=== PATIENT | male | born 1960 | race Caucasian/White ===

== ENCOUNTER → 2020-11-08 | Outpatient (CLI) | payer BC | END | disposition home or self-care (01) | LOC: LABWHC1 14:25 | PROVIDERS: ATTEND Family Medicine | DX: U07.1 COVID-19 (principal) | CPT/HCPCS: U0003; C9803; U0005 ==

== ENCOUNTER 2020-11-14 12:53 | Inpatient (IN) | payer BC ==
[2020-11-14] MEDS ORDERED: ACETAMINOPHEN TAB 500 MG TAB PO STA (13:05)
[2020-11-14] MEDS ORDERED: IBUPROFEN 600 MG TAB PO STA (13:05)
[2020-11-14] MEDS ORDERED: DEXAMETHASONE SOD PHOSPHATE 10 MG/ML 1 ML VIAL IV STA (13:23)
[2020-11-14] MEDS: SODIUM CHLORIDE 0.9% 500 ML 500 ML IV SCH (13:36)
--- NOTE | 2020-11-14 13:37 | ED ---
General Adult HPI - General Chief complaint: Shortness of Breath Stated complaint: Fever/BodyAches Time Seen by Provider: 11/14/20 13:00 Source: patient, RN notes reviewed, old records reviewed Mode of arrival: ambulatory Limitations: no limitations - History of Present Illness Initial comments: This is a 60-year-old male who was diagnosed with COVID on November 10. Patient states his symptoms began on November 06. Patient states since he's been diagn osed he continues to get worse more of a cough or shortness of breath more fatigued diarrhea for the last 3 days and lost taste and smell. Patient states he was unaware of any antibiotics that he could possibly get. Patient denies chest pain patient denies any abdominal pain patient denies any vomiting. Patient states exertion makes his shortness of breath considerably worse. - Related Data Home Medications Medication Instructions Recorded Confirmed Ascorbic Acid [Vitamin C] 1,000 mg PO DAILY 11/14/20 11/14/20 Cholecalciferol [Vitamin D3 (25 25 mcg PO DAILY 11/14/20 11/14/20 Mcg = 1000 Iu)] Fish Oil/Dha/Epa [Fish Oil 1,200 1 cap PO DAILY 11/14/20 11/14/20 mg Fish Oil] Multivitamins, Thera [Multivitamin 1 tab PO DAILY 11/14/20 11/14/20 (formulary)] Allergies Allergy/AdvReac Type Severity Reaction Status Date / Time No Known Allergies Allergy Verified 11/14/20 14:47 Review of Systems ROS Statement: Those systems with pertinent positive or pertinent negative responses have been documented in the HPI. ROS Other: All systems not noted in ROS Statement are negative. Past Medical History Past Medical History: No Reported History History of Any Multi-Drug Resistant Organisms: None Reported Past Surgical History: Joint Replacement Past Psychological History: No Psychological Hx Reported Smoking Status: Never smoker Past Alcohol Use History: Occasional Past Drug Use History: None Reported General Exam - General Exam Comments Initial Comments: GENERAL: Patient is well-developed and well-nourished. Patient is nontoxic and well- hydrated and is in mild distress. ENT: Neck is soft and supple. No significant lymphadenopathy is noted. Oropharynx is clear. Moist mucous membranes. Neck has full range of motion without eliciting any pain. EYES: The sclera were anicteric and conjunctiva were pink and moist. Extraocular movements were intact and pupils were equal round and reactive to light. Eyelids were unremarkable. PULMONARY: Unlabored respirations. Good breath sounds bilaterally. No audible rales rhonchi or wheezing was noted. CARDIOVASCULAR: There is a regular rate and rhythm without any murmurs gallops or rubs. ABDOMEN: Soft and nontender with normal bowel sounds. SKIN: Skin is clear with no lesions or rashes and otherwise unremarkable. NEUROLOGIC: Patient is alert and oriented x3. Cranial nerves II through XII are grossly intact. Motor and sensory are also intact. Normal speech, volume and content. Symmetrical smile. MUSCULOSKELETAL: Normal extremities with adequate strength and full range of motion. No lower extremity swelling or edema. No calf tenderness. LYMPHATICS: No significant lymphadenopathy is noted PSYCHIATRIC: Normal psychiatric evaluation. Limitations: no limitations Course Vital Signs 11/14/20 11/14/20 12:56 14:39 Temperature 102.1 F H 101.6 F H Pulse Rate 105 H 82 Respiratory 18 18 Rate Blood Pressure 120/73 O2 Sat by Pulse 89 L 91 L Oximetry Medical Decision Making - Medical Decision Making EKG shows sinus tachycardia at 106 bpm LA interval is 146 QRS is 76 QT interval 326 QTC is 433. Patient's EKG shows no ST segment elevation or depression. EKG shows Q waves in II, III, and aVF X-ray shows bilateral infiltrates consistent difficulty pneumonia. Start the patient on Decadron. Patient's pulse ox was 88% on room air. - Lab Data Result diagrams: 11/14/20 13:16 11/14/20 13:16 Lab Results 11/14/20 11/14/20 11/14/20 Range/Units 13:16 13:16 13:16 WBC 4.3 (3.8-10.6) k/uL RBC 5.37 (4.30-5.90) m/uL Hgb 16.1 (13.0-17.5) gm/dL Hct 46.6 (39.0-53.0) % MCV 86.6 (80.0-100.0) fL MCH 29.9 (25.0-35.0) pg MCHC 34.5 (31.0-37.0) g/dL RDW 14.0 (11.5-15.5) % Plt Count 184 (150-450) k/uL MPV 7.5 Neutrophils % 70 % Lymphocytes % 22 % Monocytes % 5 % Eosinophils % 0 % Basophils % 0 % Neutrophils # 3.0 (1.3-7.7) k/uL Lymphocytes # 0.9 L (1.0-4.8) k/uL Monocytes # 0.2 (0-1.0) k/uL Eosinophils # 0.0 (0-0.7) k/uL Basophils # 0.0 (0-0.2) k/uL PT 10.6 (9.0-12.0) sec INR 1.0 (<1.2) APTT 24.9 (22.0-30.0) sec D-Dimer 0.66 H (<0.60) mg/L FEU Sodium (137-145) mmol/L Potassium (3.5-5.1) mmol/L Chloride (98-107) mmol/L Carbon Dioxide (22-30) mmol/L Anion Gap mmol/L BUN (9-20) mg/dL Creatinine (0.66-1.25) mg/dL Est GFR (CKD-EPI)AfAm (>60 ml/min/1.73 sqM) Est GFR (CKD-EPI)NonAf (>60 ml/min/1.73 sqM) Glucose (74-99) mg/dL Plasma Lactic Acid Kadeem (0.7-2.0) mmol/L Calcium (8.4-10.2) mg/dL Total Bilirubin (0.2-1.3) mg/dL AST (17-59) U/L ALT (4-49) U/L Alkaline Phosphatase (38-126) U/L Total Protein (6.3-8.2) g/dL Albumin (3.5-5.0) g/dL Coronavirus (PCR) Detected A (Not Detectd) 11/14/20 11/14/20 Range/Units 13:16 13:16 WBC (3.8-10.6) k/uL RBC (4.30-5.90) m/uL Hgb (13.0-17.5) gm/dL Hct (39.0-53.0) % MCV (80.0-100.0) fL MCH (25.0-35.0) pg MCHC (31.0-37.0) g/dL RDW (11.5-15.5) % Plt Count (150-450) k/uL MPV Neutrophils % % Lymphocytes % % Monocytes % % Eosinophils % % Basophils % % Neutrophils # (1.3-7.7) k/uL Lymphocytes # (1.0-4.8) k/uL Monocytes # (0-1.0) k/uL Eosinophils # (0-0.7) k/uL Basophils # (0-0.2) k/uL PT (9.0-12.0) sec INR (<1.2) APTT (22.0-30.0) sec D-Dimer (<0.60) mg/L FEU Sodium 132 L (137-145) mmol/L Potassium 4.9 (3.5-5.1) mmol/L Chloride 97 L (98-107) mmol/L Carbon Dioxide 27 (22-30) mmol/L Anion Gap 8 mmol/L BUN 19 (9-20) mg/dL Creatinine 0.89 (0.66-1.25) mg/dL Est GFR (CKD-EPI)AfAm >90 (>60 ml/min/1.73 sqM) Est GFR (CKD-EPI)NonAf >90 (>60 ml/min/1.73 sqM) Glucose 122 H (74-99) mg/dL Plasma Lactic Acid Kadeem 2.0 (0.7-2.0) mmol/L Calcium 8.9 (8.4-10.2) mg/dL Total Bilirubin 0.5 (0.2-1.3) mg/dL AST 64 H (17-59) U/L ALT 29 (4-49) U/L Alkaline Phosphatase 45 (38-126) U/L Total Protein 6.6 (6.3-8.2) g/dL Albumin 4.0 (3.5-5.0) g/dL Coronavirus (PCR) (Not Detectd) Disposition Clinical Impression: Pneumonia due to COVID-19 virus Disposition: ADMITTED IP TO THIS HOSP Referrals: Jovanny Christina MD [Primary Care Provider] - 1-2 days Time of Disposition: 15:42
[2020-11-14 13:53] LABS: Basophils % (A) 0 %; Eosinophils % (A) 0 %; HCT 46.6 % (39.0-53.0); HGB 16.1 gm/dL (13.0-17.5); Lymphocytes # (A) 0.9 k/uL (1.0-4.8); Lymphocytes % (A) 22 %; MCH 29.9 pg (25.0-35.0); MCHC 34.5 g/dL (31.0-37.0); MCV 86.6 fL (80.0-100.0); Mean Platelet Volume 7.5; Monocytes # (A) 0.2 k/uL (0-1.0); Monocytes % (A) 5 %; Neutrophils % (A) 70 %; Platelet Count 184 k/uL (150-450); RBC 5.37 m/uL (4.30-5.90); WBC 4.3 k/uL (3.8-10.6)
--- NOTE | 2020-11-14 14:09 | XR ---
EXAMINATION TYPE: XR chest 2V DATE OF EXAM: 11/14/2020 COMPARISON: NONE HISTORY: Shortness of breath TECHNIQUE: Frontal and lateral views of the chest are obtained. FINDINGS: Scattered senescent parenchymal changes noted. Hyperinflation compatible with COPD. Scattered patchy infiltrates compatible with underlying pneumonia. Correlate for Covid 19 pneumonia. Heart size is stable. Mediastinal structures are stable and grossly unremarkable. No evidence for hilar prominence. Degenerative changes dorsal spine. IMPRESSION: 1. Scattered patchy infiltrates compatible with underlying pneumonia. Correlate for Covid 19 pneumoni a.
[2020-11-14 14:16] LABS: ALT 29 U/L (4-49); African American GFR (CKD) >90 (>60 ml/min/1.73 sqM); Anion Gap 8 mmol/L; Blood Urea Nitrogen 19 mg/dL (9-20); Calcium 8.9 mg/dL (8.4-10.2); Carbon Dioxide 27 mmol/L (22-30); Chloride 97 mmol/L (98-107); Glucose 122 mg/dL (74-99); Non-African American GFR(CKD) >90 (>60 ml/min/1.73 sqM); Sodium 132 mmol/L (137-145); Total Bilirubin 0.5 mg/dL (0.2-1.3); Total Protein 6.6 g/dL (6.3-8.2)
[2020-11-14 14:26] LABS: AST 64 U/L (17-59); Alkaline Phosphatase 45 U/L (38-126); Potassium 4.9 mmol/L (3.5-5.1)
[2020-11-14 14:30] LABS: Partial Thromboplastin Time 24.9 sec (22.0-30.0); Prothrombin Time 10.6 sec (9.0-12.0)
[2020-11-14] MEDS ORDERED: SODIUM CHLORIDE 0.9% 1,000 ML IV ONE (15:42)
[2020-11-14 16:34] LABS: Appearance,Urine Clear (Clear); Bilirubin,Urine Negative (Negative); Blood,Urine Negative (Negative); Color,Urine Yellow; Glucose,Urine (UA) Negative (Negative); Ketones,Urine Negative (Negative); Leukocyte Esterase,Urine Negative (Negative); Mucus,Urine Many /hpf; Nitrite,Urine Negative (Negative); Protein,Urine 1+ (Negative); RBC,Urine <1 /hpf (0-5); Specific Gravity,Urine 1.025 (1.001-1.035); Squamous Epithelial Cell,Urine <1 /hpf (0-4); Urobilinogen,Urine <2.0 mg/dL (<2.0); WBC,Urine 4 /hpf (0-5)
--- NOTE | 2020-11-14 20:18 | P.CNPUL ---
History of Present Illness Consult date: 11/14/20 Reason for consult: hypoxemia, pneumonia History of present illness: 60-year-old male patient, no previous vaccination for Covid 19, developed sy mptoms of dry cough and progressive worsening shortness of breath this been going on for the past 7 days. He became symptomatic last Thursday. The patient is coming in with worsening shortness of breath. He also lost his sense of taste and smell. He has not taken any other outpatient treatment. His chest x- ray showed by the pulmonary infiltrates consistent with Covid 19 secondary to pneumonia. The patient had no significant GI symptoms. No altered mentation. Currently is on oxygen at 2 L per minute. D-dimer is at 0.66. LFTs are minimally elevated with an AST of 64. Lactic acid level is at 2.0. Electrolytes are normal. LDH and CRP are pending. Covid 19 testing by PCR came back positive. He is currently on Decadron and Lovenox 40 mg subcu on a daily basis. No other major comorbidities. He is able to speak full sentences. No signs of any respiratory distress at this point in time. Review of Systems Constitutional: Reports fatigue, Reports weight gain Eyes: denies as per HPI, denies blurred vision, denies bulging eye, denies decreased vision, denies diplopia, denies discharge, denies dry eye, denies irritation, denies itching, denies pain, denies photophobia, denies loss of peripheral vision, denies loss of vision, denies tunnel vision/blind spots Ears: deny: decreased hearing, ear discharge, earache, tinnitus Ears, nose, mouth and throat: Reports as per HPI Breasts: absent: as per HPI, gynecomastia Cardiovascular: Reports dyspnea on exertion Respiratory: Reports cough, Reports dyspnea Gastrointestinal: Reports as per HPI Genitourinary: Reports as per HPI Musculoskeletal: absent: ankle pain, ankle stiffness, ankle swelling, as per HPI, elbow pain, elbow stiffness, elbow swelling, foot pain, foot stiffness, foot swelling, hand pain, hand stiffness, hand swelling, hip pain, hip stiffness, hip swelling, knee pain, knee stiffness, knee swelling, shoulder pain, shoulder stiffness, shoulder swelling, wrist pain, wrist stiffness, wrist swelling Integumentary: Reports as per HPI Neurological: Reports as per HPI, Reports weakness Psychiatric: Reports as per HPI Endocrine: Reports as per HPI, Reports fatigue Hematologic/Lymphatic: Reports as per HPI Allergic/Immunologic: Reports as per HPI Past Medical History Past Medical History: No Reported History History of Any Multi-Drug Resistant Organisms: None Reported Past Surgical History: Joint Replacement Additional Past Surgical History / Comment(s): right shoulder surgry 10 years ago Past Psychological History: No Psychological Hx Reported Smoking Status: Never smoker Past Alcohol Use History: Occasional Past Drug Use History: None Reported Medications and Allergies Home Medications Medication Instructions Recorded Confirmed Type Ascorbic Acid [Vitamin C] 1,000 mg PO DAILY 11/14/20 11/14/20 History Cholecalciferol [Vitamin D3 (25 25 mcg PO DAILY 11/14/20 11/14/20 History Mcg = 1000 Iu)] Fish Oil/Dha/Epa [Fish Oil 1,200 1 cap PO DAILY 11/14/20 11/14/20 History mg Fish Oil] Multivitamins, Thera [Multivitamin 1 tab PO DAILY 11/14/20 11/14/20 History (formulary)] Allergies Allergy/AdvReac Type Severity Reaction Status Date / Time No Known Allergies Allergy Verified 11/14/20 14:47 Physical Exam Vitals: Vital Signs Temp Pulse Resp BP Pulse Ox 11/14/20 18:15 98.3 F 87 18 109/70 93 L 11/14/20 14:39 101.6 F H 82 18 91 L 11/14/20 13:06 18 11/14/20 12:56 102.1 F H 105 H 18 120/73 89 L Intake and Output 11/14/20 11/14/20 11/14/20 06:59 14:59 22:59 Other: Weight 113.398 kg 113.398 kg The patient appeared well nourished and normally developed. Vital signs as documented. Head exam is unremarkable. No scleral icterus or corneal arcus noted. Neck is without jugular venous distension, thyromegaly, or carotid bruits. Carotid upstrokes are brisk bilaterally. Lungs are diminished and the patient has crackles in the mid and lower lung felix bilaterally Cardiac exam reveals the PMI to be normally sized and situated. Rhythm is regular. First and second heart sounds normal. No murmurs, rubs or gallops. Abdominal exam reveals normal bowel sounds, no masses, no organomegaly and no aortic enlargement. Extremities are nonedematous and both femoral and pedal pulses are normal.Examination of the skin revealed no evidence of significant rashes, suspicious appearing nevi or other concerning lesions.Neurologically, the patient is awake and alert and the patient does not have any focal neurological deficit. Cranial nerves are essentially intact. Results - Laboratory Findings CBC and BMP: 11/14/20 13:16 11/14/20 13:16 PT/INR, D-dimer PT 10.6 sec (9.0-12.0) 11/14/20 13:16 INR 1.0 (<1.2) 11/14/20 13:16 D-Dimer 0.66 mg/L FEU (<0.60) H 11/14/20 13:16 Abnormal lab findings: Abnormal Labs 11/14/20 11/14/20 11/14/20 13:16 13:16 13:16 Lymphocytes # 0.9 L D-Dimer 0.66 H Sodium Chloride Glucose AST Urine Protein Urine Mucus Coronavirus (PCR) Detected A 11/14/20 11/14/20 13:16 16:22 Lymphocytes # D-Dimer Sodium 132 L Chloride 97 L Glucose 122 H AST 64 H Urine Protein 1+ H Urine Mucus Many H Coronavirus (PCR) - Diagnostic Findings Chest x-ray: image reviewed Assessment and Plan Plan: 1 acute Covid 19 related pneumonia. The patient became symptomatic approximately 8 days ago. Presented with worsening shortness of breath and bilateral pneumonia. Patient is not vaccinated. The patient has not received any outpatient treatments for Covid 19 infection. Diagnosis established during this current admission. 2 acute hypoxic respiratory failure currently on 2 L about 2 by nasal cannula 3 obesity with a BMI of 38. Plan Check and symmetrical markings including LDH and CRP Decadron 6 mg by mouth daily Lovenox 40 minutes subcu for DVT prophylaxis IV hydration with normal saline at the rate of 75 mL's an hour Zinc sulfate and vitamin C and vitamin D supplements Monitor oxygenation currently on 2 L per minute nasal cannula We'll continue to follow. Diagnosis explained. He is not my symptomatic at this point in time. We'll continue to follow. He is outside the window for Remdesivir
[2020-11-14] MEDS: ASCORBIC ACID 500 MG TAB PO SCH (21:06)
[2020-11-14] MEDS: ENOXAPARIN 40 MG/0.4 ML SYRINGE SQ SCH (21:06)
[2020-11-15] MEDS: CHOLECALCIFEROL 25 MCG (1000 IU) TABLET PO SCH (07:57)
[2020-11-15] MEDS: ZINC SULFATE 220 MG CAP PO SCH (07:57)
[2020-11-15] MEDS: ASCORBIC ACID 500 MG TAB PO SCH ×2 (07:57→21:15)
[2020-11-15] MEDS: dexAMETHasone 2 MG TAB PO SCH (07:57)
[2020-11-15] MEDS: ENOXAPARIN 40 MG/0.4 ML SYRINGE SQ SCH (07:57)
[2020-11-15 08:00] LABS: C Reactive Protein 5.7 mg/dL (<1.0)
--- NOTE | 2020-11-15 11:09 | P.HPIM ---
History of Present Illness H&P Date: 11/15/20 Chief Complaint: Fever chills, since November 06, covid positive This is a pleasant 60-year-old gentleman patient of Dr. Ridge Christina. He doesn't see a physician often and does not note any medical diseases, except for obesity. He comes seen secondary to fever and chills, cough, starting December 06 first, along with muscle aches, lack of appetite and diarrhea. he was tested for call bid November 08, which required at week of reporting, subsequently was sent to emergency room secondary to worsening symptoms, including dyspnea on exertion, shortness of breath and worsening cough without hemoptysis. Fever, shortness of breath lingers, no treatment given to him prior to this admission. The is vaccinated, but the patient is not. He does not believe in vaccines at that time. He comes in the emergency room, with hypoxemia, with very minimal conversational dyspnea, chest x-ray, shows pulmonary infiltrate consistent with Covid pneumonia, oxygen currently is at 6 L nasal cannula, d-dimer was 0.6, LFTs are minimally elevated, 64 AST, lactic acid 2.0 sodium 132, creatinine of 0.9, glucose of 122, LDH of 888, CRP of 5.7. Urine protein noted, without hematuria or proteinuria. Covid was again retested 11/14, PCR is positive. Consult to Dr. Eduardo and pulmonary,, Review of Systems Constitutional: Reports as per HPI, Reports anorexia, Reports chills, Reports poor appetite Ears, nose, mouth and throat: Reports as per HPI Cardiovascular: Reports as per HPI Respiratory: Reports as per HPI Gastrointestinal: Reports as per HPI Genitourinary: Reports as per HPI Past Medical History Past Medical History: No Reported History History of Any Multi-Drug Resistant Organisms: None Reported Past Surgical History: Joint Replacement Additional Past Surgical History / Comment(s): right shoulder surgry 10 years ago Past Psychological History: No Psychological Hx Reported Smoking Status: Never smoker Past Alcohol Use History: Occasional Past Drug Use History: None Reported Medications and Allergies Home Medications Medication Instructions Recorded Confirmed Type Ascorbic Acid [Vitamin C] 1,000 mg PO DAILY 11/14/20 11/14/20 History Cholecalciferol [Vitamin D3 (25 25 mcg PO DAILY 11/14/20 11/14/20 History Mcg = 1000 Iu)] Fish Oil/Dha/Epa [Fish Oil 1,200 1 cap PO DAILY 11/14/20 11/14/20 History mg Fish Oil] Multivitamins, Thera [Multivitamin 1 tab PO DAILY 11/14/20 11/14/20 History (formulary)] Allergies Allergy/AdvReac Type Severity Reaction Status Date / Time No Known Allergies Allergy Verified 11/14/20 14:47 Physical Exam Vitals: Vital Signs Temp Pulse Pulse Resp BP BP Pulse Ox 11/15/20 08:00 15 11/15/20 05:45 90 L 11/15/20 05:39 98.7 F 69 20 124/73 83 L 11/15/20 03:00 97.4 F L 73 17 102/68 85 L 11/14/20 23:31 97.6 F 80 18 103/58 89 L 11/14/20 18:15 98.3 F 87 18 109/70 93 L 11/14/20 14:39 101.6 F H 82 18 91 L 11/14/20 13:06 18 11/14/20 12:56 102.1 F H 105 H 18 120/73 89 L Intake and Output 11/14/20 11/15/20 11/15/20 22:59 06:59 14:59 Other: # Voids 3 Weight 113.398 kg - Constitutional General appearance: cooperative, no acute distress, obese - EENT Eyes: EOMI, PERRLA, dentition normal, normal appearance ENT: NA/AT, normal oropharynx - Neck Neck: normal ROM - Respiratory Respiratory: bilateral: CTA, negative: diminished, dullness, rales - Cardiovascular Rhythm: regular Heart sounds: normal: S1, S2 Abnormal Heart Sounds: no systolic murmur, no diastolic murmur, no rub, no S3 Gallop, no S4 Gallop, no click, no other - Gastrointestinal General gastrointestinal: normal bowel sounds, soft - Integumentary Integumentary: decreased turgor, normal - Neurologic Neurologic: CNII-XII intact - Musculoskeletal Musculoskeletal: gait normal, strength equal bilaterally - Psychiatric Psychiatric: A&O x's 3 Results CBC & Chem 7: 11/14/20 13:16 11/14/20 13:16 Labs: Abnormal Lab Results - Last 24 Hours (Table) 11/14/20 11/14/20 11/14/20 Range/Units 13:16 13:16 13:16 Lymphocytes # 0.9 L (1.0-4.8) k/uL D-Dimer 0.66 H (<0.60) mg/L FEU Sodium (137-145) mmol/L Chloride (98-107) mmol/L Glucose (74-99) mg/dL AST (17-59) U/L Lactate Dehydrogenase (313-618) U/L C-Reactive Protein (<1.0) mg/dL Urine Protein (Negative) Urine Mucus (None) /hpf Coronavirus (PCR) Detected A (Not Detectd) 11/14/20 11/14/20 11/15/20 Range/Units 13:16 16:22 07:05 Lymphocytes # (1.0-4.8) k/uL D-Dimer (<0.60) mg/L FEU Sodium 132 L (137-145) mmol/L Chloride 97 L (98-107) mmol/L Glucose 122 H (74-99) mg/dL AST 64 H (17-59) U/L Lactate Dehydrogenase 888 H (313-618) U/L C-Reactive Protein 5.7 H (<1.0) mg/dL Urine Protein 1+ H (Negative) Urine Mucus Many H (None) /hpf Coronavirus (PCR) (Not Detectd) Laboratory Results WBC 4.3 k/uL (3.8-10.6) 11/14/20 13:16 RBC 5.37 m/uL (4.30-5.90) 11/14/20 13:16 Hgb 16.1 gm/dL (13.0-17.5) 11/14/20 13:16 Hct 46.6 % (39.0-53.0) 11/14/20 13:16 MCV 86.6 fL (80.0-100.0) 11/14/20 13:16 MCH 29.9 pg (25.0-35.0) 11/14/20 13:16 MCHC 34.5 g/dL (31.0-37.0) 11/14/20 13:16 RDW 14.0 % (11.5-15.5) 11/14/20 13:16 Plt Count 184 k/uL (150-450) 11/14/20 13:16 MPV 7.5 11/14/20 13:16 Neutrophils % 70 % 11/14/20 13:16 Lymphocytes % 22 % 11/14/20 13:16 Monocytes % 5 % 11/14/20 13:16 Eosinophils % 0 % 11/14/20 13:16 Basophils % 0 % 11/14/20 13:16 Neutrophils # 3.0 k/uL (1.3-7.7) 11/14/20 13:16 Lymphocytes # 0.9 k/uL (1.0-4.8) L 11/14/20 13:16 Monocytes # 0.2 k/uL (0-1.0) 11/14/20 13:16 Eosinophils # 0.0 k/uL (0-0.7) 11/14/20 13:16 Basophils # 0.0 k/uL (0-0.2) 11/14/20 13:16 PT 10.6 sec (9.0-12.0) 11/14/20 13:16 INR 1.0 (<1.2) 11/14/20 13:16 APTT 24.9 sec (22.0-30.0) 11/14/20 13:16 D-Dimer 0.52 mg/L FEU (<0.60) 11/15/20 07:05 Sodium 132 mmol/L (137-145) L 11/14/20 13:16 Potassium 4.9 mmol/L (3.5-5.1) 11/14/20 13:16 Chloride 97 mmol/L (98-107) L 11/14/20 13:16 Carbon Dioxide 27 mmol/L (22-30) 11/14/20 13:16 Anion Gap 8 mmol/L 11/14/20 13:16 BUN 19 mg/dL (9-20) 11/14/20 13:16 Creatinine 0.89 mg/dL (0.66-1.25) 11/14/20 13:16 Est GFR (CKD-EPI)AfAm >90 (>60 ml/min/1.73 sqM) 11/14/20 13:16 Est GFR (CKD-EPI)NonAf >90 (>60 ml/min/1.73 sqM) 11/14/20 13:16 Glucose 122 mg/dL (74-99) H 11/14/20 13:16 Plasma Lactic Acid Kadeem 2.0 mmol/L (0.7-2.0) 11/14/20 13:16 Calcium 8.9 mg/dL (8.4-10.2) 11/14/20 13:16 Total Bilirubin 0.5 mg/dL (0.2-1.3) 11/14/20 13:16 AST 64 U/L (17-59) H 11/14/20 13:16 ALT 29 U/L (4-49) 11/14/20 13:16 Alkaline Phosphatase 45 U/L (38-126) 11/14/20 13:16 Lactate Dehydrogenase 888 U/L (313-618) H 11/15/20 07:05 C-Reactive Protein 5.7 mg/dL (<1.0) H 11/15/20 07:05 Total Protein 6.6 g/dL (6.3-8.2) 11/14/20 13:16 Albumin 4.0 g/dL (3.5-5.0) 11/14/20 13:16 Urine Color Yellow 11/14/20 16:22 Urine Appearance Clear (Clear) 11/14/20 16:22 Urine pH 6.0 (5.0-8.0) 11/14/20 16:22 Ur Specific [place] 1.025 (1.001-1.035) 11/14/20 16:22 Urine Protein 1+ (Negative) H 11/14/20 16:22 Urine Glucose (UA) Negative (Negative) 11/14/20 16:22 Urine Ketones Negative (Negative) 11/14/20 16:22 Urine Blood Negative (Negative) 11/14/20 16:22 Urine Nitrite Negative (Negative) 11/14/20 16:22 Urine Bilirubin Negative (Negative) 11/14/20 16:22 Urine Urobilinogen <2.0 mg/dL (<2.0) 11/14/20 16:22 Ur Leukocyte Esterase Negative (Negative) 11/14/20 16:22 Urine RBC <1 /hpf (0-5) 11/14/20 16:22 Urine WBC 4 /hpf (0-5) 11/14/20 16:22 Ur Squamous Epith Cells <1 /hpf (0-4) 11/14/20 16:22 Urine Mucus Many /hpf (None) H 11/14/20 16:22 Coronavirus (PCR) Detected (Not Detectd) A 11/14/20 13:16 Thrombosis Risk Factor Assmnt - DVT/VTE Prophylaxis DVT/VTE Prophylaxis: Pharmacologic Prophylaxis ordered - Choose All That Apply Each Factor Represents 1 point: Obesity (BMI >25), Sepsis (< 1month) Each Risk Factor Represents 2 Points: Age 61-74 years Other congenital or acquired thrombophilia - If yes, enter type in comment: No Thrombosis Risk Factor Assessment Total Risk Factor Score: 4 Thrombosis Risk Factor Assessment Level: Moderate Risk Assessment and Plan Plan: 1, moderate severe coving, with pneumonia, with acute hypoxemic respiratory failure, diagnosis was of 11/08/2020, symptoms started December 06 first. Patient is not vaccinated, and since being seen in consultation by pulmonary, he is on dexamethasone 6 mg daily, Lovenox 40 mg daily, he is on his ninth day of illness from presentation, we have discussed with pulmonary, treatment options, including Remdesivir against actemra on a None vaccinated patient, they will always reevaluate the patient, and decision will be made after Dr. Eduardo will please see the patient today . O2 supplementation, monitor for worsening Covid markers however his d-dimer has come down 2. Morbid obesity BMI 38 DVT prophylaxis Lovenox GI prophylaxis Pepcid BPH without LUTs Proteinuria, unknown cause, Dymetabolic syndrome, monitor for hyperglycemia, check A1c
--- NOTE | 2020-11-15 12:45 | P.PN ---
Subjective Progress Note Date: 11/15/20 On today's evaluation on the 11/15/2020 patient seen in follow-up on medical surgical floor. His O2 saturations are marginal, on 6 L his pulse ox is 90%. Does not seem to be in any acute distress, no increased work of breathing. Occasional cough, nonproductive, patient was outside the window for Remdesivir. He is not vaccinated, S x-ray on admission showed significant patchy infiltrates compatible with his history of COVID-19 infection. Blood pressure has been stable, afebrile. His labs have been reviewed, d-dimer is 0.52, which is 888, CRP is 5.7. Patient is currently on Decadron 6 mg, he is on prophylactic dose Lovenox. Objective - Vital Signs Vital signs: Vital Signs Temp 98.1 F 11/15/20 10:24 Pulse 81 11/15/20 10:24 Resp 18 11/15/20 10:24 BP 102/60 11/15/20 10:24 Pulse Ox 90 L 11/15/20 10:24 Intake & Output 11/14/20 11/15/20 11/15/20 18:59 06:59 18:59 Weight 113.398 kg Other: # Voids 3 - Exam GENERAL EXAM: Alert, very pleasant, 60-year-old white male, on 6 L of oxygen with pulse ox of 90% comfortable in no apparent distress. HEAD: Normocephalic/atraumatic. EYES: Normal reaction of pupils, equal size. Conjunctiva pink, sclera white. NOSE: Clear with pink turbinates. THROAT: No erythema or exudates. NECK: No masses, no JVD, no thyroid enlargement, no adenopathy. CHEST: No chest wall deformity. Symmetrical expansion. LUNGS: Equal air entry with no crackles, wheeze, rhonchi or dullness. CVS: Regular rate and rhythm, normal S1 and S2, no gallops, no murmurs, no rubs ABDOMEN: Soft, nontender. No hepatosplenomegaly, normal bowel sounds, no guarding or rigidity. EXTREMITIES: No clubbing, no edema, no cyanosis, 2+ pulses and upper and lower extremities. MUSCULOSKELETAL: Muscle strength and tone normal. SPINE: No scoliosis or deformity SKIN: No rashes CENTRAL NERVOUS SYSTEM: Alert and oriented -3. No focal deficits, tone is normal in all 4 extremities. PSYCHIATRIC: Alert and oriented -3. Appropriate affect. Intact judgment and insight. - Labs CBC & Chem 7: 11/14/20 13:16 11/14/20 13:16 Labs: Abnormal Lab Results - Last 24 Hours (Table) 11/14/20 11/14/20 11/14/20 Range/Units 13:16 13:16 13:16 Lymphocytes # 0.9 L (1.0-4.8) k/uL D-Dimer 0.66 H (<0.60) mg/L FEU Sodium (137-145) mmol/L Chloride (98-107) mmol/L Glucose (74-99) mg/dL AST (17-59) U/L Lactate Dehydrogenase (313-618) U/L C-Reactive Protein (<1.0) mg/dL Urine Protein (Negative) Urine Mucus (None) /hpf Coronavirus (PCR) Detected A (Not Detectd) 11/14/20 11/14/20 11/15/20 Range/Units 13:16 16:22 07:05 Lymphocytes # (1.0-4.8) k/uL D-Dimer (<0.60) mg/L FEU Sodium 132 L (137-145) mmol/L Chloride 97 L (98-107) mmol/L Glucose 122 H (74-99) mg/dL AST 64 H (17-59) U/L Lactate Dehydrogenase 888 H (313-618) U/L C-Reactive Protein 5.7 H (<1.0) mg/dL Urine Protein 1+ H (Negative) Urine Mucus Many H (None) /hpf Coronavirus (PCR) (Not Detectd) Assessment and Plan Plan: 1 acute Covid 19 related pneumonia. The patient became symptomatic approximately 8 days ago. Presented with worsening shortness of breath and bilateral pneumonia. Patient is not vaccinated. The patient has not received any outpatient treatments for Covid 19 infection. Diagnosis established during this current admission. 2 acute hypoxic respiratory failure currently on 2 L about 2 by nasal cannula 3 obesity with a BMI of 38. Plan: Continue Decadron, and Lovenox Patient's up to 6 L, his pulse ox is marginal, 90% He was outside the window for Remdesivir We'll consider the patient for Bariticinib Continue to follow I performed a history & physical examination of the patient and discussed their management with my nurse practitioner, Jovita Thomas. I reviewed the nurse practitioner's note and agree with the documented findings and plan of care. Lung sounds are positive for diminished breath sounds throughout the lung felix. The findings and the impression was discussed with the patient. I attest to the documentation by the nurse practitioner. Time with Patient: Less than 30
[2020-11-15] MEDS ORDERED: LOPERAMIDE 2 MG CAP PO STA (14:04)
[2020-11-15] MEDS ORDERED: LOPERAMIDE 2 MG CAP PO PRN (14:04)
[2020-11-15] MEDS: BARICITINIB 2 MG TABLET PO SCH (16:19)
--- NOTE | 2020-11-16 07:27 | XR ---
EXAMINATION TYPE: XR chest 1V DATE OF EXAM: 11/16/2020 HISTORY: Shortness of breath. COMPARISON: 11/14/2020 TECHNIQUE: Single view of the chest is submitted. FINDINGS: Demonstrated are scattered senescent parenchymal change. Patchy perihilar and left lower lobe infiltrate persists. The heart is stable. Hilar and mediastinal structures are within normal limits. Degenerative changes are seen of the dorsal spine. IMPRESSION: 1. Patchy perihilar and left lower lobe infiltrate persists.
[2020-11-16] MEDS: ASCORBIC ACID 500 MG TAB PO SCH ×2 (09:11→22:49)
[2020-11-16] MEDS: ZINC SULFATE 220 MG CAP PO SCH (09:12)
[2020-11-16] MEDS: dexAMETHasone 2 MG TAB PO SCH (09:12)
[2020-11-16] MEDS: CHOLECALCIFEROL 25 MCG (1000 IU) TABLET PO SCH (09:12)
[2020-11-16] MEDS: ENOXAPARIN 40 MG/0.4 ML SYRINGE SQ SCH (09:12)
--- NOTE | 2020-11-16 11:48 | P.PN ---
Subjective Progress Note Date: 11/16/20 On today's evaluation on the 11/15/2020 patient seen in follow-up on medical surgical floor. His O2 saturations are marginal, on 6 L his pulse ox is 90%. Does not seem to be in any acute distress, no increased work of breathing. Occasional cough, nonproductive, patient was outside the window for Remdesivir. He is not vaccinated, S x-ray on admission showed significant patchy infiltrates compatible with his history of COVID-19 infection. Blood pressure has been stable, afebrile. His labs have been reviewed, d-dimer is 0.52, which is 888, CRP is 5.7. Patient is currently on Decadron 6 mg, he is on prophylactic dose Lovenox. Today's evaluation on 11/16/2020 patient seen in follow-up on medical surgical floor, his oxygen demand has increased in the last 24 hours, and his FiO2 was titrated to 10 L, his pulse ox is 91-92%, does not appear to be in any acute respiratory distress, he sitting up in the chair, is awake and alert, oriented 3, his been afebrile overnight, blood pressure is been stable, today's chest x- ray shows patchy perihilar and left lower lobe infiltrate persistence. The patient was started on on Bariticinib, Decadron 6 mg daily, and prophylactic dose of Lovenox. His appetite is poor per nursing staff, he seems to be depressed. Labs have been reviewed, his d-dimer is low at 0.50, his LDH from yesterday was 888, and CRP was 5.7. Objective - Vital Signs Vital signs: Vital Signs Temp 98.6 F 11/16/20 10:11 Pulse 94 11/16/20 10:11 Resp 18 11/16/20 10:11 BP 117/55 11/16/20 10:11 Pulse Ox 92 L 11/16/20 10:11 Intake & Output 11/15/20 11/16/20 11/16/20 18:59 06:59 18:59 Other: Voiding Method Toilet # Voids 5 3 - Exam GENERAL EXAM: Alert, very pleasant, 60-year-old white male, on 10 L of oxygen with pulse ox of 90% comfortable in no apparent distress. HEAD: Normocephalic/atraumatic. EYES: Normal reaction of pupils, equal size. Conjunctiva pink, sclera white. NOSE: Clear with pink turbinates. THROAT: No erythema or exudates. NECK: No masses, no JVD, no thyroid enlargement, no adenopathy. CHEST: No chest wall deformity. Symmetrical expansion. LUNGS: Equal air entry with no crackles, wheeze, rhonchi or dullness. CVS: Regular rate and rhythm, normal S1 and S2, no gallops, no murmurs, no rubs ABDOMEN: Soft, nontender. No hepatosplenomegaly, normal bowel sounds, no guarding or rigidity. EXTREMITIES: No clubbing, no edema, no cyanosis, 2+ pulses and upper and lower extremities. MUSCULOSKELETAL: Muscle strength and tone normal. SPINE: No scoliosis or deformity SKIN: No rashes CENTRAL NERVOUS SYSTEM: Alert and oriented -3. No focal deficits, tone is normal in all 4 extremities. PSYCHIATRIC: Alert and oriented -3. Appropriate affect. Intact judgment and insight. - Labs CBC & Chem 7: 11/14/20 13:16 11/14/20 13:16 Labs: Microbiology - Last 24 Hours (Table) 11/14/20 13:33 Blood Culture - Preliminary Blood No Growth after 24 hours 11/14/20 13:16 Blood Culture - Preliminary Blood No Growth after 24 hours Assessment and Plan Plan: 1 acute Covid 19 related pneumonia. The patient became symptomatic approximately 8 days ago. Presented with worsening shortness of breath and bilateral pneumonia. Patient is not vaccinated. The patient has not received any outpatient treatments for Covid 19 infection. Diagnosis established during this current admission. 2 acute hypoxic respiratory failure currently on 2 L about 2 by nasal cannula 3 obesity with a BMI of 38. Plan: Continue Decadron, and Lovenox Patient's up to 10 L, his pulse ox is marginal, 90% He was outside the window for Remdesivir We started the patient on Bariticinib yesterday Chest x-ray has been reviewed Encourage the patient to deep breathe and cough, use incentive spirometer, prone if stable will continue to follow Continue to follow I performed a history & physical examination of the patient and discussed their management with my nurse practitioner, Jovita Thomas. I reviewed the nurse practitioner's note and agree with the documented findings and plan of care. Lung sounds are positive for diminished breath sounds throughout the lung felix. The findings and the impression was discussed with the patient. I attest to the documentation by the nurse practitioner. Time with Patient: Less than 30
--- NOTE | 2020-11-16 12:01 | P.PN ---
Subjective Progress Note Date: 11/16/20 HISTORY OF PRESENT ILLNESS This is a pleasant 60-year-old gentleman patient of Dr. Ridge Christina. He doesn't see a physician often and does not note any medical diseases, except for obesity. He comes seen secondary to fever and chills, cough, starting December 06 first, along with muscle aches, lack of appetite and diarrhea. he was tested for call bid November 08, which required at week of reporting, subsequently was sent to emergency room secondary to worsening symptoms, including dyspnea on exertion, shortness of breath and worsening cough without hemoptysis. Fever, sh ortness of breath lingers, no treatment given to him prior to this admission. The is vaccinated, but the patient is not. He does not believe in vaccines at that time. He comes in the emergency room, with hypoxemia, with very minimal conversational dyspnea, chest x-ray, shows pulmonary infiltrate consistent with Covid pneumonia, oxygen currently is at 6 L nasal cannula, d-dimer was 0.6, LFTs are minimally elevated, 64 AST, lactic acid 2.0 sodium 132, creatinine of 0.9, glucose of 122, LDH of 888, CRP of 5.7. Urine protein noted, without hematuria or proteinuria. Covid was again retested 11/14, PCR is positive. Consult to Dr. Edaurdo and pulmonary,, 11/16: Patient is currently on oxygen at 6 L nasal cannula increased to 7 L with humidified oxygen. Patient seen and followed by pulmonary medicine and has been started on Bariticinib, Decadron 6 mg daily, and prophylactic dose of Lovenox. He is reaching 1750 on incentive spirometry. Patient did have episode of diarrhea yesterday, none today and complains of decreased appetite. Patient complains of nasal congestion and Flonase added. REVIEW OF SYSTEMS Constitutional: No fever, no chills, no night sweats. No weight change. Reports weakness, reports fatigue reports lethargy. Reports daytime sleepiness. EENT: No headache. No blurred vision or double vision, no loss of vision. No loss of Hearing, no ringing in the ears, no dizziness. No nasal drainage or congestion. No epistaxis. No sore throat. Lungs: No shortness of breath, cough, no sputum production. No wheezing. Cardiovascular: No chest pain, no lower extremity edema. No palpitations. No paroxysmal nocturnal dyspnea. No orthopnea. No lightheadedness or dizziness. No syncopal episodes. Abdominal: No abdominal pain. No nausea, vomiting. Reports diarrhea. No constipation. No bloody or tarry stools. Reports loss of appetite. Genitourinary: No dysuria, increased frequency, urgency. No urinary retention. Musculoskeletal: No myalgias. No muscle weakness, no gait dysfunction, no frequent falls. No back pain. No neck pain. Integumentary: No wounds, no lesions. No rash or pruritus. No unusual bruising. No change in hair or nails. Neurologic: No aphasia. No facial droop. No change in mentation. No head injury. No headache. No paralysis. No paresthesia. Psychiatric: No depression. No anxiety. No mood swings. Endocrine: No abnormal blood sugars. No weight change. PHYSICAL EXAMINATION Gen: This is a 60-year-old obese male. He is resting in bed and appears to be comfortable at rest. HEENT: Head is atraumatic, normocephalic. Pupils equal, round. Sclerae is anicteric. NECK: Supple. No JVD. No lymphadenopathy. No thyromegaly. LUNGS: Diminished breath sounds. No wheezes or rhonchi. No intercostal retractions. HEART: Regular rate and rhythm. No murmur. ABDOMEN: Soft. Bowel sounds are present. No masses. No tenderness. EXTREMITIES: No pedal edema. No calf tenderness. NEUROLOGICAL: Patient is awake, alert and oriented x3. Cranial nerves 2 through 12 are grossly intact. ASSESSMENT AND PLAN 1. Moderate severe c COVID-19, with pneumonia, with acute hypoxemic respiratory failure, diagnosis was of 11/08/2020, symptoms started December 06 first. Patient is not vaccinated, and since being seen in consultation by pulmonary, he is on dexamethasone 6 mg daily, Lovenox 40 mg daily, Baricitinib 4 mg oral daily. Patient is outside window for Remdesivir. Continue O2 supplementation, monitor for worsening Covid markers however his d-dimer has come down 2. Morbid obesity BMI 38 DVT prophylaxis Lovenox GI prophylaxis Pepcid BPH without LUTs Proteinuria, unknown cause, Dymetabolic syndrome, monitor for hyperglycemia, check A1c DISCHARGE PLAN home Impression and plan of care have been directed as dictated by the signing physician. Sanam Valentine nurse practitioner acting as scribe for signing physician. Objective - Vital Signs Vital signs: Vital Signs Temp 98.8 F 11/16/20 06:03 Pulse 91 11/16/20 06:03 Resp 19 11/16/20 06:03 BP 139/78 11/16/20 06:03 Pulse Ox 88 L 11/16/20 06:03 Intake & Output 11/15/20 11/16/20 11/16/20 18:59 06:59 18:59 Other: Voiding Method Toilet # Voids 5 3 - Labs CBC & Chem 7: 11/14/20 13:16 11/14/20 13:16 Labs: Microbiology - Last 24 Hours (Table) 11/14/20 13:33 Blood Culture - Preliminary Blood No Growth after 24 hours 11/14/20 13:16 Blood Culture - Preliminary Blood No Growth after 24 hours
[2020-11-16] MEDS: FLUTICASONE 50MCG/SPRAY NASAL 16GM EA NOSTRIL SCH (14:23)
[2020-11-16] MEDS: BARICITINIB 2 MG TABLET PO SCH (14:28)
[2020-11-16 21:49] LABS: African American GFR (CKD) 93.1 (60.0-200.0); Albumin/Globulin Ratio 2.11 (1.60-3.17); Anion Gap 13.7 mmol/L (4.00-12.00); C Reactive Protein 2.5 mg/dL (0.0-0.8); Calcium 8.9 mg/dL (8.7-10.3); Carbon Dioxide 21.3 mmol/L (21.6-31.8); Globulin 1.9 g/dL (1.6-3.3); Non-African American GFR(CKD) 80.3 (60.0-200.0); Potassium 4.3 mmol/L (3.5-5.5); Total Bilirubin 0.5 mg/dL (0.3-1.2); Total Protein 5.9 g/dL (6.2-8.2)
[2020-11-17] MEDS: ASCORBIC ACID 500 MG TAB PO SCH ×2 (08:06→19:53)
[2020-11-17] MEDS: dexAMETHasone 2 MG TAB PO SCH (08:06)
[2020-11-17] MEDS: ZINC SULFATE 220 MG CAP PO SCH (08:06)
[2020-11-17] MEDS: CHOLECALCIFEROL 25 MCG (1000 IU) TABLET PO SCH (08:06)
[2020-11-17] MEDS: ACETAMINOPHEN TAB 325 MG TAB PO PRN (08:06)
[2020-11-17] MEDS: ENOXAPARIN 40 MG/0.4 ML SYRINGE SQ SCH (08:07)
--- NOTE | 2020-11-17 08:54 | XR ---
EXAMINATION TYPE: XR chest 1V DATE OF EXAM: 11/17/2020 CLINICAL HISTORY: Difficulty breathing progress study. COVID. TECHNIQUE: Single AP portable upright view of the chest is obtained. COMPARISON: Chest x-ray from one day earlier and older study. FINDINGS: Persistent bilateral multifocal opacities. Stable mild cardiomegaly. Osseous structures ar e intact. IMPRESSION: Mild cardiomegaly with bilateral multifocal opacities consistent with covid-19 infection. No significant change from most recent x-ray.
[2020-11-17 09:09] LABS: Basophils % (A) 0 %; Eosinophils # (A) 0.1 k/uL (0-0.7); Eosinophils % (A) 1 %; HCT 44.2 % (39.0-53.0); HGB 14.9 gm/dL (13.0-17.5); Lymphocytes # (A) 0.7 k/uL (1.0-4.8); Lymphocytes % (A) 7 %; MCH 29.5 pg (25.0-35.0); MCHC 33.6 g/dL (31.0-37.0); MCV 87.8 fL (80.0-100.0); Mean Platelet Volume 7.3; Monocytes # (A) 0.3 k/uL (0-1.0); Monocytes % (A) 3 %; Neutrophils # (A) 8.8 k/uL (1.3-7.7); Neutrophils % (A) 88 %; Platelet Count 271 k/uL (150-450); RBC 5.04 m/uL (4.30-5.90)
[2020-11-17 09:25] LABS: ALT 51 U/L (4-49); AST 83 U/L (17-59); African American GFR (CKD) >90 (>60 ml/min/1.73 sqM); Albumin 3.5 g/dL (3.5-5.0); Albumin/Globulin Ratio 1.5; Alkaline Phosphatase 53 U/L (38-126); Anion Gap 11 mmol/L; Blood Urea Nitrogen 25 mg/dL (9-20); C Reactive Protein 5.3 mg/dL (<1.0); Calcium 9.1 mg/dL (8.4-10.2); Carbon Dioxide 24 mmol/L (22-30); Chloride 105 mmol/L (98-107); Globulin 2.4 g/dL; Glucose 167 mg/dL (74-99); Non-African American GFR(CKD) >90 (>60 ml/min/1.73 sqM); Potassium 4.1 mmol/L (3.5-5.1); Sodium 140 mmol/L (137-145); Total Bilirubin 0.6 mg/dL (0.2-1.3); Total Protein 5.9 g/dL (6.3-8.2)
--- NOTE | 2020-11-17 10:38 | P.PN ---
Subjective Progress Note Date: 11/17/20 HISTORY OF PRESENT ILLNESS This is a pleasant 60-year-old gentleman patient of Dr. Ridge Christina. He doesn't see a physician often and does not note any medical diseases, except for obesity. He comes seen secondary to fever and chills, cough, starting December 06 first, along with muscle aches, lack of appetite and diarrhea. he was tested for call bid November 08, which required at week of reporting, subsequently was sent to emergency room secondary to worsening symptoms, including dyspnea on exertion, shortness of breath and worsening cough without hemoptysis. Fever, sh ortness of breath lingers, no treatment given to him prior to this admission. The is vaccinated, but the patient is not. He does not believe in vaccines at that time. He comes in the emergency room, with hypoxemia, with very minimal conversational dyspnea, chest x-ray, shows pulmonary infiltrate consistent with Covid pneumonia, oxygen currently is at 6 L nasal cannula, d-dimer was 0.6, LFTs are minimally elevated, 64 AST, lactic acid 2.0 sodium 132, creatinine of 0.9, glucose of 122, LDH of 888, CRP of 5.7. Urine protein noted, without hematuria or proteinuria. Covid was again retested 11/14, PCR is positive. Consult to Dr. Eduardo and pulmonary,, 11/16: Patient is currently on oxygen at 6 L nasal cannula increased to 7 L with humidified oxygen. Patient seen and followed by pulmonary medicine and has been started on Bariticinib, Decadron 6 mg daily, and prophylactic dose of Lovenox. He is reaching 1750 on incentive spirometry. Patient did have episode of diarrhea yesterday, none today and complains of decreased appetite. Patient complains of nasal congestion and Flonase added. 11/17: Patient had difficulty with oxygenation during the night and this morning transitioned to Airfo and partial nonrebreather. Pulse ox is currently running 90-92%, patient is prone. He has been afebrile, heart rate 88, blood pressure 104/63. Repeat d-dimer is elevated at 0.93. Blood sugar 167. C-reactive protein increased to 5.3. AST is 83 and ALT 51. Blood culture remains with no growth after 48 hours. Repeat chest x-ray reveals mild cardiomegaly with bilateral multifocal opacities consistent with Covid 19 infection. No significant change from most recent x-ray. Albuterol inhaler and Symbicort inhaler added. REVIEW OF SYSTEMS Constitutional: No fever, no chills, no night sweats. No weight change. Reports weakness, reports fatigue reports lethargy. Reports daytime sleepiness. EENT: No headache. No blurred vision or double vision, no loss of vision. No loss of Hearing, no ringing in the ears, no dizziness. No nasal drainage or congestion. No epistaxis. No sore throat. Lungs: No shortness of breath, cough, no sputum production. No wheezing. Cardiovascular: No chest pain, no lower extremity edema. No palpitations. No paroxysmal nocturnal dyspnea. No orthopnea. No lightheadedness or dizziness. No syncopal episodes. Abdominal: No abdominal pain. No nausea, vomiting. Reports diarrhea. No constipation. No bloody or tarry stools. Reports loss of appetite. Genitourinary: No dysuria, increased frequency, urgency. No urinary retention. Musculoskeletal: No myalgias. No muscle weakness, no gait dysfunction, no frequent falls. No back pain. No neck pain. Integumentary: No wounds, no lesions. No rash or pruritus. No unusual bruising. No change in hair or nails. Neurologic: No aphasia. No facial droop. No change in mentation. No head injury. No headache. No paralysis. No paresthesia. Psychiatric: No depression. No anxiety. No mood swings. Endocrine: No abnormal blood sugars. No weight change. PHYSICAL EXAMINATION Gen: This is a 60-year-old obese male. He is resting in bed and appears to be comfortable at rest. HEENT: Head is atraumatic, normocephalic. Pupils equal, round. Sclerae is anicteric. NECK: Supple. No JVD. No lymphadenopathy. No thyromegaly. LUNGS: Diminished breath sounds. No wheezes or rhonchi. No intercostal retractions. HEART: Regular rate and rhythm. No murmur. ABDOMEN: Soft. Bowel sounds are present. No masses. No tenderness. EXTREMITIES: No pedal edema. No calf tenderness. NEUROLOGICAL: Patient is awake, alert and oriented x3. Cranial nerves 2 through 12 are grossly intact. ASSESSMENT AND PLAN 1. Moderate severe COVID-19, with pneumonia, with acute hypoxemic respiratory failure, diagnosis was of 11/08/2020, symptoms started December 06 first. Patient is not vaccinated, and since being seen in consultation by pulmonary, he is on dexamethasone 6 mg daily, Lovenox 40 mg daily, Baricitinib 4 mg oral daily, add albuterol inhaler, Symbicort inhaler, prone positioning.. Patient is outside window for Remdesivir. Continue O2 supplementation, monitor for worsening Covid markers however his d-dimer has come down 2. Morbid obesity BMI 38 DVT prophylaxis Lovenox GI prophylaxis Pepcid BPH without LUTs Proteinuria, unknown cause, Dymetabolic syndrome, monitor for hyperglycemia, check A1c DISCHARGE PLAN home Impression and plan of care have been directed as dictated by the signing physician. Sanam Valentine nurse practitioner acting as scribe for signing physic sushila. Objective - Vital Signs Vital signs: Vital Signs Temp 98.6 F 11/17/20 06:02 Pulse 90 11/17/20 06:02 Resp 13 11/17/20 08:00 BP 105/69 11/17/20 06:02 Pulse Ox 95 11/17/20 08:54 Intake & Output 11/16/20 11/17/20 11/17/20 18:59 06:59 18:59 Intake Total 240 Balance 240 Intake: Oral 240 Other: Voiding Method Toilet # Voids 4 3 - Labs CBC & Chem 7: 11/17/20 08:47 11/17/20 08:47 Labs: Abnormal Lab Results - Last 24 Hours (Table) 11/16/20 11/17/20 11/17/20 Range/Units 06:59 08:47 08:47 Neutrophils # (1.3-7.7) k/uL Lymphocytes # (1.0-4.8) k/uL D-Dimer 0.93 H (<0.60) mg/L FEU Carbon Dioxide 21.3 L (21.6-31.8) mmol/L Anion Gap 13.70 H (4.00-12.00) mmol/L BUN 25 H (9-20) mg/dL BUN/Creatinine Ratio 22.00 H (12.00-20.00) Ratio Glucose 125 H 167 H (70-110) mg/dL AST 56 H 83 H (14-35) U/L ALT 51 H (4-49) U/L Lactate Dehydrogenase 416 H (120-246) U/L C-Reactive Protein 2.5 H 5.3 H (0.0-0.8) mg/dL Total Protein 5.9 L 5.9 L (6.2-8.2) g/dL 11/17/20 Range/Units 08:47 Neutrophils # 8.8 H (1.3-7.7) k/uL Lymphocytes # 0.7 L (1.0-4.8) k/uL D-Dimer (<0.60) mg/L FEU Carbon Dioxide (21.6-31.8) mmol/L Anion Gap (4.00-12.00) mmol/L BUN (9-20) mg/dL BUN/Creatinine Ratio (12.00-20.00) Ratio Glucose (70-110) mg/dL AST (14-35) U/L ALT (4-49) U/L Lactate Dehydrogenase (120-246) U/L C-Reactive Protein (0.0-0.8) mg/dL Total Protein (6.2-8.2) g/dL Microbiology - Last 24 Hours (Table) 11/14/20 13:33 Blood Culture - Preliminary Blood No Growth after 48 hours 11/14/20 13:16 Blood Culture - Preliminary Blood No Growth after 48 hours
[2020-11-17] MEDS: ALBUTEROL HFA INHALER INHALATION SCH ×2 (11:59→19:49)
--- NOTE | 2020-11-17 13:24 | P.PN ---
Subjective Progress Note Date: 11/17/20 On today's evaluation on the 11/15/2020 patient seen in follow-up on medical surgical floor. His O2 saturations are marginal, on 6 L his pulse ox is 90%. Does not seem to be in any acute distress, no increased work of breathing. Occasional cough, nonproductive, patient was outside the window for Remdesivir. He is not vaccinated, S x-ray on admission showed significant patchy infiltrates compatible with his history of COVID-19 infection. Blood pressure has been stable, afebrile. His labs have been reviewed, d-dimer is 0.52, which is 888, CRP is 5.7. Patient is currently on Decadron 6 mg, he is on prophylactic dose Lovenox. Today's evaluation on 11/16/2020 patient seen in follow-up on medical surgical floor, his oxygen demand has increased in the last 24 hours, and his FiO2 was titrated to 10 L, his pulse ox is 91-92%, does not appear to be in any acute respiratory distress, he sitting up in the chair, is awake and alert, oriented 3, his been afebrile overnight, blood pressure is been stable, today's chest x- ray shows patchy perihilar and left lower lobe infiltrate persistence. The patient was started on on Bariticinib, Decadron 6 mg daily, and prophylactic dose of Lovenox. His appetite is poor per nursing staff, he seems to be depressed. Labs have been reviewed, his d-dimer is low at 0.50, his LDH from yesterday was 888, and CRP was 5.7. On 11/17/2020 patient seen in follow-up on the surgical floor. He is currently on Airvo 60 L and FiO2 of 94% in addition to partial nonrebreather mask and his pulse ox is around 90-92%. Patient easily desaturates with any activity. He is currently on his abdomen, he is self proning, and his oxygen does improve when he does that with a pulse ox of 95-96%, he tolerates proning fairly well. Patient is on day 3 of Bariticinib, he is also on Decadron 6 g daily, and prophylactic dose of Lovenox. His chest x-ray today shows mild cardiomegaly with bilateral multifocal opacities with no significant change from most recent chest x-ray. Today's labs have been reviewed, with blood cell count is 10, hemoglobin is 14.9, lymphocyte count is 0.7, d-dimer is 0.93, electrolytes are within normal limits, BUN is 25 creatinine 0.82. Objective - Vital Signs Vital signs: Vital Signs Temp 98.6 F 11/17/20 10:20 Pulse 88 11/17/20 10:20 Resp 17 11/17/20 10:20 BP 104/63 11/17/20 10:20 Pulse Ox 94 L 11/17/20 11:59 Intake & Output 11/16/20 11/17/20 11/17/20 18:59 06:59 18:59 Intake Total 240 Balance 240 Intake: Oral 240 Other: Voiding Method Toilet # Voids 4 3 - Exam GENERAL EXAM: Alert, very pleasant, 60-year-old white male, on Airvo at 60 L and FiO2 of 94% in addition to nonrebreather mask with a pulse ox of 90-94%, to 95% when the patient is on his abdomen comfortable in no apparent distress. HEAD: Normocephalic/atraumatic. EYES: Normal reaction of pupils, equal size. Conjunctiva pink, sclera white. NOSE: Clear with pink turbinates. THROAT: No erythema or exudates. NECK: No masses, no JVD, no thyroid enlargement, no adenopathy. CHEST: No chest wall deformity. Symmetrical expansion. LUNGS: Equal air entry with no crackles, wheeze, rhonchi or dullness. CVS: Regular rate and rhythm, normal S1 and S2, no gallops, no murmurs, no rubs ABDOMEN: Soft, nontender. No hepatosplenomegaly, normal bowel sounds, no guarding or rigidity. EXTREMITIES: No clubbing, no edema, no cyanosis, 2+ pulses and upper and lower extremities. MUSCULOSKELETAL: Muscle strength and tone normal. SPINE: No scoliosis or deformity SKIN: No rashes CENTRAL NERVOUS SYSTEM: Alert and oriented -3. No focal deficits, tone is normal in all 4 extremities. PSYCHIATRIC: Alert and oriented -3. Appropriate affect. Intact judgment and insight. - Labs CBC & Chem 7: 11/17/20 08:47 11/17/20 08:47 Labs: Abnormal Lab Results - Last 24 Hours (Table) 11/16/20 11/17/20 11/17/20 Range/Units 06:59 08:47 08:47 Neutrophils # (1.3-7.7) k/uL Lymphocytes # (1.0-4.8) k/uL D-Dimer 0.93 H (<0.60) mg/L FEU Carbon Dioxide 21.3 L (21.6-31.8) mmol/L Anion Gap 13.70 H (4.00-12.00) mmol/L BUN 25 H (9-20) mg/dL BUN/Creatinine Ratio 22.00 H (12.00-20.00) Ratio Glucose 125 H 167 H (70-110) mg/dL AST 56 H 83 H (14-35) U/L ALT 51 H (4-49) U/L Lactate Dehydrogenase 416 H (120-246) U/L C-Reactive Protein 2.5 H 5.3 H (0.0-0.8) mg/dL Total Protein 5.9 L 5.9 L (6.2-8.2) g/dL 11/17/20 Range/Units 08:47 Neutrophils # 8.8 H (1.3-7.7) k/uL Lymphocytes # 0.7 L (1.0-4.8) k/uL D-Dimer (<0.60) mg/L FEU Carbon Dioxide (21.6-31.8) mmol/L Anion Gap (4.00-12.00) mmol/L BUN (9-20) mg/dL BUN/Creatinine Ratio (12.00-20.00) Ratio Glucose (70-110) mg/dL AST (14-35) U/L ALT (4-49) U/L Lactate Dehydrogenase (120-246) U/L C-Reactive Protein (0.0-0.8) mg/dL Total Protein (6.2-8.2) g/dL Microbiology - Last 24 Hours (Table) 11/14/20 13:33 Blood Culture - Preliminary Blood No Growth after 48 hours 11/14/20 13:16 Blood Culture - Preliminary Blood No Growth after 48 hours Assessment and Plan Plan: #1. acute Covid 19 related pneumonia. The patient became symptomatic approximately 8 days ago. Presented with worsening shortness of breath and bilateral pneumonia. Patient is not vaccinated. The patient has not received any outpatient treatments for Covid 19 infection. Diagnosis established during this current admission. Started on Bariticinib on 11/15/2020 in view of worsen ing hypoxic respiratory failure. Patient was outside the window for Remdesivir #2. acute hypoxic respiratory failure which has significantly progressed since admission, and patient is currently on Airvo at 60 L and FiO2 of 94% in addition to nonrebreather mask, and his pulse ox is 90% #3. obesity with a BMI of 38. #4. Increased inflammatory markers related to acute COVID-19 pneumonia Plan: Continue Decadron, and Lovenox Patient's up to 60 L and FiO2 of 94% in addition to nonrebreather mask, his pulse ox is marginal, 90% Encourage the patient to self-prone, and the patient is tolerating it fairly well, and his oxygen is noted to be improved when his on his abdomen He was outside the window for Remdesivir He continues on Bariticinib, today is day 3 of treatment Chest x-ray has been reviewed showing bilateral multifocal opacities without significant change will continue to follow Continue to follow I performed a history & physical examination of the patient and discussed their management with my nurse practitioner, Jovita Thomas. I reviewed the nurse practitioner's note and agree with the documented findings and plan of care. Lung sounds are positive for diminished breath sounds throughout the lung felix. The findings and the impression was discussed with the patient. I attest to the documentation by the nurse practitioner. Time with Patient: Less than 30
[2020-11-17] MEDS: ALBUTEROL HFA INHALER INHALATION PRN (16:32)
[2020-11-17] MEDS: BARICITINIB 2 MG TABLET PO SCH (16:56)
[2020-11-17] MEDS: FLUTICASONE 50MCG/SPRAY NASAL 16GM EA NOSTRIL SCH (18:06)
[2020-11-17] MEDS: SYMBICORT 160-4.5 MCG INHALER INHALATION SCH (19:49)
[2020-11-18] MEDS: ALBUTEROL HFA INHALER INHALATION SCH ×3 (07:25→19:51)
[2020-11-18] MEDS: SYMBICORT 160-4.5 MCG INHALER INHALATION SCH ×2 (07:26→19:51)
[2020-11-18] MEDS: CHOLECALCIFEROL 25 MCG (1000 IU) TABLET PO SCH (07:51)
[2020-11-18] MEDS: ZINC SULFATE 220 MG CAP PO SCH (07:51)
[2020-11-18] MEDS: dexAMETHasone 2 MG TAB PO SCH (07:51)
[2020-11-18] MEDS: ASCORBIC ACID 500 MG TAB PO SCH ×2 (07:51→21:40)
[2020-11-18] MEDS: ACETAMINOPHEN TAB 325 MG TAB PO PRN (07:51)
[2020-11-18] MEDS: ENOXAPARIN 40 MG/0.4 ML SYRINGE SQ SCH ×2 (07:51→21:36)
[2020-11-18] MEDS: FLUTICASONE 50MCG/SPRAY NASAL 16GM EA NOSTRIL SCH (07:52)
--- NOTE | 2020-11-18 10:39 | P.PN ---
Subjective Progress Note Date: 11/18/20 HISTORY OF PRESENT ILLNESS This is a pleasant 60-year-old gentleman patient of Dr. Ridge Christina. He doesn't see a physician often and does not note any medical diseases, except for obesity. He comes seen secondary to fever and chills, cough, starting December 06 first, along with muscle aches, lack of appetite and diarrhea. he was tested for call bid November 08, which required at week of reporting, subsequently was sent to emergency room secondary to worsening symptoms, including dyspnea on exertion, shortness of breath and worsening cough without hemoptysis. Fever, sh ortness of breath lingers, no treatment given to him prior to this admission. The is vaccinated, but the patient is not. He does not believe in vaccines at that time. He comes in the emergency room, with hypoxemia, with very minimal conversational dyspnea, chest x-ray, shows pulmonary infiltrate consistent with Covid pneumonia, oxygen currently is at 6 L nasal cannula, d-dimer was 0.6, LFTs are minimally elevated, 64 AST, lactic acid 2.0 sodium 132, creatinine of 0.9, glucose of 122, LDH of 888, CRP of 5.7. Urine protein noted, without hematuria or proteinuria. Covid was again retested 11/14, PCR is positive. Consult to Dr. Eduardo and pulmonary,, 11/16: Patient is currently on oxygen at 6 L nasal cannula increased to 7 L with humidified oxygen. Patient seen and followed by pulmonary medicine and has been started on Bariticinib, Decadron 6 mg daily, and prophylactic dose of Lovenox. He is reaching 1750 on incentive spirometry. Patient did have episode of diarrhea yesterday, none today and complains of decreased appetite. Patient complains of nasal congestion and Flonase added. 11/17: Patient had difficulty with oxygenation during the night and this morning transitioned to Airfo and partial nonrebreather. Pulse ox is currently running 90-92%, patient is prone. He has been afebrile, heart rate 88, blood pressure 104/63. Repeat d-dimer is elevated at 0.93. Blood sugar 167. C-reactive protein increased to 5.3. AST is 83 and ALT 51. Blood culture remains with no growth after 48 hours. Repeat chest x-ray reveals mild cardiomegaly with bilateral multifocal opacities consistent with Covid 19 infection. No significant change from most recent x-ray. Albuterol inhaler and Symbicort inhaler added. 11/18: Patient is currently on AirVo and nonrebreather with pulse ox of 93%. He's been afebrile, heart rate 85, blood pressure 103/68. Blood culture no growth at 72 hours 2 specimens. Plan to continue proning. Repeat laboratory studies ordered for tomorrow including inflammatory markers. The patient is having difficulty sleeping and melatonin added. Lovenox increased to twice daily dosing. REVIEW OF SYSTEMS Constitutional: No fever, no chills, no night sweats. No weight change. Reports weakness, reports fatigue reports lethargy. Reports daytime sleepiness. EENT: No headache. No blurred vision or double vision, no loss of vision. No loss of Hearing, no ringing in the ears, no dizziness. No nasal drainage or congestion. No epistaxis. No sore throat. Lungs Reported shortness of breath, reported cough, no sputum production. No wheezing. Cardiovascular: No chest pain, no lower extremity edema. No palpitations. No paroxysmal nocturnal dyspnea. No orthopnea. No lightheadedness or dizziness. No syncopal episodes. Abdominal: No abdominal pain. No nausea, vomiting. Reports diarrhea. No constipation. No bloody or tarry stools. Reports loss of appetite. Genitourinary: No dysuria, increased frequency, urgency. No urinary retention. Musculoskeletal: No myalgias. No muscle weakness, no gait dysfunction, no frequent falls. No back pain. No neck pain. Integumentary: No wounds, no lesions. No rash or pruritus. No unusual bruising. No change in hair or nails. Neurologic: No aphasia. No facial droop. No change in mentation. No head injury. No headache. No paralysis. No paresthesia. Psychiatric: No depression. No anxiety. No mood swings.Insomnia. Endocrine: No abnormal blood sugars. No weight change. PHYSICAL EXAMINATION Gen: This is a 60-year-old obese male. He is resting in bed and appears to be comfortable at rest. HEENT: Head is atraumatic, normocephalic. Pupils equal, round. Sclerae is anicteric. NECK: Supple. No JVD. No lymphadenopathy. No thyromegaly. LUNGS: Diminished breath sounds. No wheezes or rhonchi. No intercostal retrac tions. HEART: Regular rate and rhythm. No murmur. ABDOMEN: obese. Soft. Bowel sounds are present. No masses. No tenderness. EXTREMITIES: No pedal edema. No calf tenderness. NEUROLOGICAL: Patient is awake, alert and oriented x3. Cranial nerves 2 through 12 are grossly intact. ASSESSMENT AND PLAN 1. Moderate severe COVID-19, with pneumonia, with acute hypoxemic respiratory failure, diagnosis was of 11/08/2020, symptoms started December 06 first. Patient is not vaccinated, and since being seen in consultation by pulmonary, he is on dexamethasone 6 mg daily, Lovenox 40 mg twice daily, Baricitinib 4 mg oral daily, add albuterol inhaler, Symbicort inhaler, prone positioning. Patient is outside window for Remdesivir. Continue O2 supplementation repeat inflammatory markers. 2. Morbid obesity BMI 38 3. DVT prophylaxis Lovenox Increased frequency to twice daily. GI prophylaxis Pepcid BPH without LUTs Proteinuria, unknown cause, Dymetabolic syndrome, monitor for hyperglycemia, check A1c DISCHARGE PLAN home Impression and plan of care have been directed as dictated by the signing physician. Sanam Valentine nurse practitioner acting as scribe for signing physician. Objective - Vital Signs Vital signs: Vital Signs Temp 97.9 F 11/18/20 05:07 Pulse 85 11/18/20 05:07 Resp 20 11/18/20 05:07 BP 104/67 11/18/20 05:07 Pulse Ox 93 L 11/18/20 07:26 Intake & Output 11/17/20 11/18/20 11/18/20 18:59 06:59 18:59 Other: Voiding Method Bedside Commode Urinal # Voids 4 2 # Bowel Movements 0 - Labs CBC & Chem 7: 11/17/20 08:47 11/17/20 08:47 Labs: Microbiology - Last 24 Hours (Table) 11/14/20 13:33 Blood Culture - Preliminary Blood No Growth after 72 hours 11/14/20 13:16 Blood Culture - Preliminary Blood No Growth after 72 hours
--- NOTE | 2020-11-18 13:54 | P.PN ---
Subjective Progress Note Date: 11/18/20 Principal diagnosis: Acute hypoxic respiratory failure secondary to COVID-19 pneumonia. On today's evaluation on the 11/15/2020 patient seen in follow-up on medical surgical floor. His O2 saturations are marginal, on 6 L his pulse ox is 90%. Does not seem to be in any acute distress, no increased work of breathing. Occasional cough, nonproductive, patient was outside the window for Remdesivir. He is not vaccinated, S x-ray on admission showed significant patchy infiltrates compatible with his history of COVID-19 infection. Blood pressure has been stable, afebrile. His labs have been reviewed, d-dimer is 0.52, which is 888, CRP is 5.7. Patient is currently on Decadron 6 mg, he is on prophylactic dose Lovenox. Today's evaluation on 11/16/2020 patient seen in follow-up on medical surgical floor, his oxygen demand has increased in the last 24 hours, and his FiO2 was titrated to 10 L, his pulse ox is 91-92%, does not appear to be in any acute respiratory distress, he sitting up in the chair, is awake and alert, oriented 3, his been afebrile overnight, blood pressure is been stable, today's chest x- ray shows patchy perihilar and left lower lobe infiltrate persistence. The patient was started on on Bariticinib, Decadron 6 mg daily, and prophylactic dose of Lovenox. His appetite is poor per nursing staff, he seems to be depressed. Labs have been reviewed, his d-dimer is low at 0.50, his LDH from yesterday was 888, and CRP was 5.7. On 11/17/2020 patient seen in follow-up on the surgical floor. He is currently on Airvo 60 L and FiO2 of 94% in addition to partial nonrebreather mask and his pulse ox is around 90-92%. Patient easily desaturates with any activity. He is currently on his abdomen, he is self proning, and his oxygen does improve when he does that with a pulse ox of 95-96%, he tolerates proning fairly well. Patient is on day 3 of Bariticinib, he is also on Decadron 6 g daily, and prophylactic dose of Lovenox. His chest x-ray today shows mild cardiomegaly with bilateral multifocal opacities with no significant change from most recent chest x-ray. Today's labs have been reviewed, with blood cell count is 10, hemoglobin is 14.9, lymphocyte count is 0.7, d-dimer is 0.93, electrolytes are within normal limits, BUN is 25 creatinine 0.82. Reevaluated today on 11/18/2020, patient remains on airvo , and on nonrebreather mask, his FiO2 is at 90%, and flow is 60 L/m via airvo. Saturation is marginal, however the patient seems to be rather comfortable. His O2 saturation is in the low 90s, desaturates easily with activity. He is doing self groaning, and he does improve with self groaning hence I'm recommending titrating his FiO2 down as his oxygenation improved. BC today is relatively normal d-dimer is up a bit at 0.93. Electrolytes are normal renal profile is normal. Last chest x-ray from 11/17 continues to show bilateral multifocal opacities consistent with COVID-19 infection, not much improvement noted based on the chest x-ray. Objective - Vital Signs Vital signs: Vital Signs Temp 98.7 F 11/18/20 10:20 Pulse 85 11/18/20 10:20 Resp 18 11/18/20 10:20 BP 103/68 11/18/20 10:20 Pulse Ox 93 L 11/18/20 11:13 Intake & Output 11/17/20 11/18/20 11/18/20 18:59 06:59 18:59 Output Total 400 Balance -400 Output: Urine 400 Other: Voiding Method Bedside Commode Urinal # Voids 4 2 # Bowel Movements 0 - Exam Gen: This is a 60-year-old obese male, not in distress but on relatively high FiO2. HEENT: Head is atraumatic, normocephalic. [place], EOMI, nonicteric, no neck masses, no rigidity. NECK: Supple. No JVD. No lymphadenopathy. No thyromegaly. LUNGS:To metrical chest expansion, crackles at the bases. HEART: Regular rate and rhythm. No murmur. ABDOMEN: obese. Soft. Bowel sounds are present. No masses. No tenderness. EXTREMITIES: No pedal edema. No calf tenderness. NEUROLOGICAL:Alert and oriented 3 no gross focal deficits. Psychiatric: Normal mood, affect and normal mental status examination. Skin: No rashes. - Labs CBC & Chem 7: 11/17/20 08:47 11/17/20 08:47 Labs: Microbiology - Last 24 Hours (Table) 11/14/20 13:33 Blood Culture - Preliminary Blood No Growth after 72 hours 11/14/20 13:16 Blood Culture - Preliminary Blood No Growth after 72 hours Assessment and Plan Assessment: Impression: Acute hypoxic referred failure secondary to COVID-19 pneumonia patient is not vaccinated, started on baricitinib on 11/15, patient was out of the window for remdesivir. Obesity with BMI of 38. Increased inflammatory markers secondary to COVID-19 pneumonia/infection. Recommendation: Continue COVID-19 cocktail. Continue oxygen and titrate accordingly. Continue Decadron and Lovenox. Continue to place the patient in prone positions frequently. Continue baricitinib, total length of treatment this 40 days. We will continue to follow. Prognosis remains relatively guarded Time with Patient: Less than 30
[2020-11-18] MEDS: ALPRAZolam 0.25 MG TAB PO SCH ×3 (17:47→21:37)
[2020-11-18] MEDS: BARICITINIB 2 MG TABLET PO SCH (17:50)
[2020-11-18] MEDS: MELATONIN 3 MG TABLET PO SCH (21:37)
[2020-11-19] MEDS: SYMBICORT 160-4.5 MCG INHALER INHALATION SCH ×2 (07:11→20:07)
[2020-11-19] MEDS: ALBUTEROL HFA INHALER INHALATION SCH ×3 (07:11→20:07)
[2020-11-19] MEDS: ACETAMINOPHEN TAB 325 MG TAB PO PRN (07:43)
[2020-11-19] MEDS: dexAMETHasone 2 MG TAB PO SCH (07:43)
[2020-11-19] MEDS: ENOXAPARIN 40 MG/0.4 ML SYRINGE SQ SCH ×2 (07:43→21:15)
[2020-11-19] MEDS: ASCORBIC ACID 500 MG TAB PO SCH ×2 (07:43→21:15)
[2020-11-19] MEDS: ALPRAZolam 0.25 MG TAB PO SCH ×3 (07:43→21:16)
[2020-11-19] MEDS: FLUTICASONE 50MCG/SPRAY NASAL 16GM EA NOSTRIL SCH (07:44)
[2020-11-19] MEDS: BARICITINIB 2 MG TABLET PO SCH (07:44)
[2020-11-19] MEDS: CHOLECALCIFEROL 25 MCG (1000 IU) TABLET PO SCH (07:44)
[2020-11-19] MEDS: ZINC SULFATE 220 MG CAP PO SCH (07:44)
[2020-11-19 11:23] LABS: Basophils # (A) 0.08 X 10*3/uL (0.00-0.10); Basophils % (A) 0.7 %; Eosinophils # (A) 0 X 10*3/uL (0.04-0.35); Eosinophils % (A) 0 %; HCT 45.7 % (39.6-50.0); HGB 14.8 g/dL (13.0-17.0); Lymphocytes # (A) 1.01 X 10*3/uL (0.90-5.00); Lymphocytes % (A) 8.4 %; MCH 28.5 pg (27.0-32.0); MCHC 32.4 g/dL (32.0-37.0); MCV 87.9 fL (80.0-97.0); Mean Platelet Volume 9.7 fL (9.5-12.2); Monocytes % (A) 3.3 %; Neutrophils # (A) 10.16 X 10*3/uL (1.80-7.70); Neutrophils % (A) 84.6 %; Platelet Count 282 X 10*3/uL (140-440); RDW 13.7 % (11.5-14.5); WBC 12.01 X 10*3/uL (4.50-10.00)
--- NOTE | 2020-11-19 12:11 | P.PN ---
Subjective Progress Note Date: 11/19/20 HISTORY OF PRESENT ILLNESS This is a pleasant 60-year-old gentleman patient of Dr. Ridge Christina. He doesn't see a physician often and does not note any medical diseases, except for obesity. He comes seen secondary to fever and chills, cough, starting December 06 first, along with muscle aches, lack of appetite and diarrhea. he was tested for call bid November 08, which required at week of reporting, subsequently was sent to emergency room secondary to worsening symptoms, including dyspnea on exertion, shortness of breath and worsening cough without hemoptysis. Fever, sh ortness of breath lingers, no treatment given to him prior to this admission. The is vaccinated, but the patient is not. He does not believe in vaccines at that time. He comes in the emergency room, with hypoxemia, with very minimal conversational dyspnea, chest x-ray, shows pulmonary infiltrate consistent with Covid pneumonia, oxygen currently is at 6 L nasal cannula, d-dimer was 0.6, LFTs are minimally elevated, 64 AST, lactic acid 2.0 sodium 132, creatinine of 0.9, glucose of 122, LDH of 888, CRP of 5.7. Urine protein noted, without hematuria or proteinuria. Covid was again retested 11/14, PCR is positive. Consult to Dr. Eduardo and pulmonary,, 11/16: Patient is currently on oxygen at 6 L nasal cannula increased to 7 L with humidified oxygen. Patient seen and followed by pulmonary medicine and has been started on Bariticinib, Decadron 6 mg daily, and prophylactic dose of Lovenox. He is reaching 1750 on incentive spirometry. Patient did have episode of diarrhea yesterday, none today and complains of decreased appetite. Patient complains of nasal congestion and Flonase added. 11/17: Patient had difficulty with oxygenation during the night and this morning transitioned to Airfo and partial nonrebreather. Pulse ox is currently running 90-92%, patient is prone. He has been afebrile, heart rate 88, blood pressure 104/63. Repeat d-dimer is elevated at 0.93. Blood sugar 167. C-reactive protein increased to 5.3. AST is 83 and ALT 51. Blood culture remains with no growth after 48 hours. Repeat chest x-ray reveals mild cardiomegaly with bilateral multifocal opacities consistent with Covid 19 infection. No significant change from most recent x-ray. Albuterol inhaler and Symbicort inhaler added. 11/18: Patient is currently on AirVo and nonrebreather with pulse ox of 93%. He's been afebrile, heart rate 85, blood pressure 103/68. Blood culture no growth at 72 hours 2 specimens. Plan to continue proning. Repeat laboratory studies ordered for tomorrow including inflammatory markers. The patient is having difficulty sleeping and melatonin added. Lovenox increased to twice daily dosing. 11/19: Patient remains in isolation. He is on AirVO plus nonrebreather with pulse ox of 93%. He has been afebrile, heart rate 85, blood pressure 122/69. Patient is found sitting in recliner and encouraged to prone when he is able to. Repeat blood work reveals WBC 12, hemoglobin 14.8, platelet count 282. D-dimer is 1.38. Other blood work is pending. Patient is continued on Decadron, vitamin supplements, Lovenox. He is on day #07/20 of Baricitinib. REVIEW OF SYSTEMS Constitutional: No fever, no chills, no night sweats. No weight change. Reports weakness, reports fatigue reports lethargy. Reports daytime sleepiness. EENT: No headache. No blurred vision or double vision, no loss of vision. No loss of Hearing, no ringing in the ears, no dizziness. No nasal drainage or congestion. No epistaxis. No sore throat. Lungs Reported shortness of breath, reported cough, no sputum production. No wheezing. Cardiovascular: No chest pain, no lower extremity edema. No palpitations. No paroxysmal nocturnal dyspnea. No orthopnea. No lightheadedness or dizziness. No syncopal episodes. Abdominal: No abdominal pain. No nausea, vomiting. Reports diarrhea. No constipation. No bloody or tarry stools. Reports loss of appetite. Genitourinary: No dysuria, increased frequency, urgency. No urinary retention. Musculoskeletal: No myalgias. No muscle weakness, no gait dysfunction, no frequent falls. No back pain. No neck pain. Integumentary: No wounds, no lesions. No rash or pruritus. No unusual bruising. Neurologic: No aphasia. No facial droop. No change in mentation. No head injury. No headache. No paralysis. No paresthesia. Psychiatric: No depression. No anxiety. No mood swings.Insomnia. Endocrine: No abnormal blood sugars. No weight change. PHYSICAL EXAMINATION Gen: This is a 60-year-old obese male. He appears to be comfortable at rest. She is resting in recliner today. HEENT: Head is atraumatic, normocephalic. Pupils equal, round. Sclerae is anict ashley. NECK: Supple. No JVD. No lymphadenopathy. No thyromegaly. LUNGS: Diminished breath sounds. No wheezes or rhonchi. No intercostal retractions. HEART: Regular rate and rhythm. No murmur. ABDOMEN: obese. Soft. Bowel sounds are present. No masses. No tenderness. EXTREMITIES: No pedal edema. No calf tenderness. NEUROLOGICAL: Patient is awake, alert and oriented x3. Cranial nerves 2 through 12 are grossly intact. ASSESSMENT AND PLAN 1. Moderate severe COVID-19, with pneumonia, with acute hypoxemic respiratory failure, diagnosis was of 11/08/2020, symptoms started December 06 first. Patient is not vaccinated, and since being seen in consultation by pulmonary, he is on dexamethasone 6 mg daily, Lovenox 40 mg twice daily, continue Baricitinib 4 mg oral daily, continue albuterol inhaler, Symbicort inhaler, prone positioning. Patient is outside window for Remdesivir. Continue O2 supplementation repeat inflammatory markers. 2. Morbid obesity BMI 38 3. DVT prophylaxis Lovenox Increased frequency to twice daily. GI prophylaxis Pepcid BPH without LUTs Proteinuria, unknown cause, Dymetabolic syndrome, monitor for hyperglycemia, check A1c DISCHARGE PLAN home Impression and plan of care have been directed as dictated by the signing physician. Sanam Valentine nurse practitioner acting as scribe for signing physician. Objective - Vital Signs Vital signs: Vital Signs Temp 99.2 F 11/19/20 05:41 Pulse 78 11/19/20 05:41 Resp 14 11/19/20 08:00 BP 104/67 11/19/20 05:41 Pulse Ox 92 L 11/19/20 07:15 Intake & Output 11/18/20 11/19/20 11/19/20 18:59 06:59 18:59 Intake Total 480 Output Total 800 Balance -800 480 Intake: Oral 480 Output: Urine 800 Other: Voiding Method Bedside Commode Urinal # Voids 2 # Bowel Movements 0 - Labs CBC & Chem 7: 11/19/20 06:56 11/17/20 08:47 Labs: Abnormal Lab Results - Last 24 Hours (Table) 11/19/20 Range/Units 06:56 D-Dimer 1.38 H (<0.60) mg/L FEU Microbiology - Last 24 Hours (Table) 11/14/20 13:33 Blood Culture - Preliminary Blood No Growth after 96 hours 11/14/20 13:16 Blood Culture - Preliminary Blood No Growth after 96 hours
[2020-11-19 12:44] LABS: Albumin 3.7 g/dL (3.80-4.90); Albumin/Globulin Ratio 1.68 (1.60-3.17); Anion Gap 9.3 mmol/L (4.00-12.00); BUN/Creat Ratio 31.25 Ratio (12.00-20.00); C Reactive Protein 8.1 mg/dL (0.0-0.8); Calcium 8.6 mg/dL (8.7-10.3); Carbon Dioxide 25.7 mmol/L (21.6-31.8); Globulin 2.2 g/dL (1.6-3.3); Non-African American GFR(CKD) 95.7 (60.0-200.0); Potassium 4.4 mmol/L (3.5-5.5); Total Bilirubin 0.8 mg/dL (0.3-1.2); Total Protein 5.9 g/dL (6.2-8.2)
--- NOTE | 2020-11-19 15:20 | P.PN ---
Subjective Progress Note Date: 11/19/20 Principal diagnosis: Acute hypoxic respiratory failure secondary to COVID-19 pneumonia. On today's evaluation on the 11/15/2020 patient seen in follow-up on medical surgical floor. His O2 saturations are marginal, on 6 L his pulse ox is 90%. Does not seem to be in any acute distress, no increased work of breathing. Occasional cough, nonproductive, patient was outside the window for Remdesivir. He is not vaccinated, S x-ray on admission showed significant patchy infiltrates compatible with his history of COVID-19 infection. Blood pressure has been stable, afebrile. His labs have been reviewed, d-dimer is 0.52, which is 888, CRP is 5.7. Patient is currently on Decadron 6 mg, he is on prophylactic dose Lovenox. Today's evaluation on 11/16/2020 patient seen in follow-up on medical surgical floor, his oxygen demand has increased in the last 24 hours, and his FiO2 was titrated to 10 L, his pulse ox is 91-92%, does not appear to be in any acute respiratory distress, he sitting up in the chair, is awake and alert, oriented 3, his been afebrile overnight, blood pressure is been stable, today's chest x- ray shows patchy perihilar and left lower lobe infiltrate persistence. The patient was started on on Bariticinib, Decadron 6 mg daily, and prophylactic dose of Lovenox. His appetite is poor per nursing staff, he seems to be depressed. Labs have been reviewed, his d-dimer is low at 0.50, his LDH from yesterday was 888, and CRP was 5.7. On 11/17/2020 patient seen in follow-up on the surgical floor. He is currently on Airvo 60 L and FiO2 of 94% in addition to partial nonrebreather mask and his pulse ox is around 90-92%. Patient easily desaturates with any activity. He is currently on his abdomen, he is self proning, and his oxygen does improve when he does that with a pulse ox of 95-96%, he tolerates proning fairly well. Patient is on day 3 of Bariticinib, he is also on Decadron 6 g daily, and prophylactic dose of Lovenox. His chest x-ray today shows mild cardiomegaly with bilateral multifocal opacities with no significant change from most recent chest x-ray. Today's labs have been reviewed, with blood cell count is 10, hemoglobin is 14.9, lymphocyte count is 0.7, d-dimer is 0.93, electrolytes are within normal limits, BUN is 25 creatinine 0.82. Reevaluated today on 11/18/2020, patient remains on airvo , and on nonrebreather mask, his FiO2 is at 90%, and flow is 60 L/m via airvo. Saturation is marginal, however the patient seems to be rather comfortable. His O2 saturation is in the low 90s, desaturates easily with activity. He is doing self groaning, and he does improve with self groaning hence I'm recommending titrating his FiO2 down as his oxygenation improved. BC today is relatively normal d-dimer is up a bit at 0.93. Electrolytes are normal renal profile is normal. Last chest x-ray from 11/17 continues to show bilateral multifocal opacities consistent with COVID-19 infection, not much improvement noted based on the chest x-ray. Patient was reevaluated today on 11/19/2020, remains on the regular medical fl oor, remains on Airvo plus nonrebreather mask, and his O2 saturation is in the range of 93-96%. Patient is surprisingly comfortable, sitting in a recliner, not in any distress. WBC count is 12 hemoglobin 14.8 electrolytes are normal renal profile is normal, LDH is 566 and his C-reactive protein is 8.1. Slightly bit more elevated compared to yesterday. Patient remains on the COVID-19 cocktail, remains on Lovenox at 40 mg subcu twice a day, and he is on Decadron, as well as baricitinib Objective - Vital Signs Vital signs: Vital Signs Temp 98.6 F 11/19/20 14:15 Pulse 76 11/19/20 14:15 Resp 17 11/19/20 14:15 BP 108/66 11/19/20 14:15 Pulse Ox 90 L 11/19/20 14:15 Intake & Output 11/18/20 11/19/20 11/19/20 18:59 06:59 18:59 Intake Total 480 Output Total 800 Balance -800 480 Intake: Oral 480 Output: Urine 800 Other: Voiding Method Bedside Commode Urinal # Voids 2 # Bowel Movements 0 - Exam Gen: This is a 60-year-old obese male, not in distress on nonrebreather mask and airvo HEENT: Head is atraumatic, normocephalic. [place], EOMI, nonicteric, no neck masses, no rigidity. NECK: Supple. No JVD. No lymphadenopathy. No thyromegaly. LUNGS:To metrical chest expansion, crackles at the bases. HEART: Regular rate and rhythm. No murmur. ABDOMEN: obese. Soft. Bowel sounds are present. No masses. No tenderness. EXTREMITIES: No pedal edema. No calf tenderness. NEUROLOGICAL:Alert and oriented 3 no gross focal deficits. Psychiatric: Normal mood, affect and normal mental status examination. Skin: No rashes. - Labs CBC & Chem 7: 11/19/20 06:56 11/19/20 06:56 Labs: Abnormal Lab Results - Last 24 Hours (Table) 11/19/20 11/19/20 11/19/20 Range/Units 06:56 06:56 06:56 WBC 12.01 H (4.50-10.00) X 10*3/uL Immature Gran # 0.36 H (0.00-0.04) X 10*3/uL Neutrophils # 10.16 H (1.80-7.70) X 10*3/uL Eosinophils # 0 L (0.04-0.35) X 10*3/uL D-Dimer (<0.60) mg/L FEU BUN/Creatinine Ratio (12.00-20.00) Ratio Glucose (70-110) mg/dL Hemoglobin A1c 6.4 H (4.0-6.0) % Calcium (8.7-10.3) mg/dL AST (14-35) U/L ALT (10-49) U/L Lactate Dehydrogenase (120-246) U/L C-Reactive Protein (0.0-0.8) mg/dL Total Protein (6.2-8.2) g/dL Albumin (3.80-4.90) g/dL Procalcitonin 0.11 H (0.02-0.09) ng/mL 11/19/20 11/19/20 Range/Units 06:56 06:56 WBC (4.50-10.00) X 10*3/uL Immature Gran # (0.00-0.04) X 10*3/uL Neutrophils # (1.80-7.70) X 10*3/uL Eosinophils # (0.04-0.35) X 10*3/uL D-Dimer 1.38 H (<0.60) mg/L FEU BUN/Creatinine Ratio 31.25 H (12.00-20.00) Ratio Glucose 111 H (70-110) mg/dL Hemoglobin A1c (4.0-6.0) % Calcium 8.6 L (8.7-10.3) mg/dL AST 51 H (14-35) U/L ALT 71 H (10-49) U/L Lactate Dehydrogenase 566 H (120-246) U/L C-Reactive Protein 8.1 H (0.0-0.8) mg/dL Total Protein 5.9 L (6.2-8.2) g/dL Albumin 3.70 L (3.80-4.90) g/dL Procalcitonin (0.02-0.09) ng/mL Microbiology - Last 24 Hours (Table) 11/14/20 13:33 Blood Culture - Preliminary Blood No Growth after 96 hours 11/14/20 13:16 Blood Culture - Preliminary Blood No Growth after 96 hours Assessment and Plan Assessment: Impression: Acute hypoxic referred failure secondary to COVID-19 pneumonia patient is not vaccinated, started on baricitinib on 11/15, patient was out of the window for remdesivir. Patient is also on Decadron, and on Lovenox. Obesity with BMI of 38. Increased inflammatory markers secondary to COVID-19 pneumonia/infection. Recommendation: Continue COVID-19 cocktail. Continue oxygen and titrate accordingly. Continue Decadron and Lovenox. Continue to place the patient in prone positions frequently. Continue baricitinib, total length of treatment this 14, not 40 days. We will continue to follow. Prognosis remains relatively guarded Time with Patient: Less than 30
[2020-11-19] MEDS: MELATONIN 3 MG TABLET PO SCH (21:16)
[2020-11-20] MEDS: ENOXAPARIN 40 MG/0.4 ML SYRINGE SQ SCH ×2 (07:54→21:07)
[2020-11-20] MEDS: CHOLECALCIFEROL 25 MCG (1000 IU) TABLET PO SCH (07:55)
[2020-11-20] MEDS: ZINC SULFATE 220 MG CAP PO SCH (07:55)
[2020-11-20] MEDS: ALPRAZolam 0.25 MG TAB PO SCH ×3 (07:55→21:07)
[2020-11-20] MEDS: dexAMETHasone 2 MG TAB PO SCH (07:55)
[2020-11-20] MEDS: ASCORBIC ACID 500 MG TAB PO SCH ×2 (07:55→21:07)
[2020-11-20] MEDS: FLUTICASONE 50MCG/SPRAY NASAL 16GM EA NOSTRIL SCH (07:56)
[2020-11-20] MEDS: ALBUTEROL HFA INHALER INHALATION SCH ×3 (08:32→19:12)
[2020-11-20] MEDS: SYMBICORT 160-4.5 MCG INHALER INHALATION SCH ×2 (08:32→19:12)
[2020-11-20] MEDS: DICLOFENAC SODIUM GEL 100 GM TUBE TOPICAL SCH ×4 (10:34→21:07)
--- NOTE | 2020-11-20 13:20 | P.PN ---
Subjective Progress Note Date: 11/20/20 Principal diagnosis: Acute hypoxic respiratory failure secondary to COVID-19 pneumonia. On today's evaluation on the 11/15/2020 patient seen in follow-up on medical surgical floor. His O2 saturations are marginal, on 6 L his pulse ox is 90%. Does not seem to be in any acute distress, no increased work of breathing. Occasional cough, nonproductive, patient was outside the window for Remdesivir. He is not vaccinated, S x-ray on admission showed significant patchy infiltrates compatible with his history of COVID-19 infection. Blood pressure has been stable, afebrile. His labs have been reviewed, d-dimer is 0.52, which is 888, CRP is 5.7. Patient is currently on Decadron 6 mg, he is on prophylactic dose Lovenox. Today's evaluation on 11/16/2020 patient seen in follow-up on medical surgical floor, his oxygen demand has increased in the last 24 hours, and his FiO2 was titrated to 10 L, his pulse ox is 91-92%, does not appear to be in any acute respiratory distress, he sitting up in the chair, is awake and alert, oriented 3, his been afebrile overnight, blood pressure is been stable, today's chest x- ray shows patchy perihilar and left lower lobe infiltrate persistence. The patient was started on on Bariticinib, Decadron 6 mg daily, and prophylactic dose of Lovenox. His appetite is poor per nursing staff, he seems to be depressed. Labs have been reviewed, his d-dimer is low at 0.50, his LDH from yesterday was 888, and CRP was 5.7. On 11/17/2020 patient seen in follow-up on the surgical floor. He is currently on Airvo 60 L and FiO2 of 94% in addition to partial nonrebreather mask and his pulse ox is around 90-92%. Patient easily desaturates with any activity. He is currently on his abdomen, he is self proning, and his oxygen does improve when he does that with a pulse ox of 95-96%, he tolerates proning fairly well. Patient is on day 3 of Bariticinib, he is also on Decadron 6 g daily, and prophylactic dose of Lovenox. His chest x-ray today shows mild cardiomegaly with bilateral multifocal opacities with no significant change from most recent chest x-ray. Today's labs have been reviewed, with blood cell count is 10, hemoglobin is 14.9, lymphocyte count is 0.7, d-dimer is 0.93, electrolytes are within normal limits, BUN is 25 creatinine 0.82. Reevaluated today on 11/18/2020, patient remains on airvo , and on nonrebreather mask, his FiO2 is at 90%, and flow is 60 L/m via airvo. Saturation is marginal, however the patient seems to be rather comfortable. His O2 saturation is in the low 90s, desaturates easily with activity. He is doing self groaning, and he does improve with self groaning hence I'm recommending titrating his FiO2 down as his oxygenation improved. BC today is relatively normal d-dimer is up a bit at 0.93. Electrolytes are normal renal profile is normal. Last chest x-ray from 11/17 continues to show bilateral multifocal opacities consistent with COVID-19 infection, not much improvement noted based on the chest x-ray. Patient was reevaluated today on 11/19/2020, remains on the regular medical fl oor, remains on Airvo plus nonrebreather mask, and his O2 saturation is in the range of 93-96%. Patient is surprisingly comfortable, sitting in a recliner, not in any distress. WBC count is 12 hemoglobin 14.8 electrolytes are normal renal profile is normal, LDH is 566 and his C-reactive protein is 8.1. Slightly bit more elevated compared to yesterday. Patient remains on the COVID-19 cocktail, remains on Lovenox at 40 mg subcu twice a day, and he is on Decadron, as well as baricitinib Reevaluated today on 11/20/2020, patient is basically about the same, not much different today from yesterday. O2 saturation remains marginal in the low 90s, patient remains on airvo at 90%, and 60 L flow. He also has a nonrebreather mask, and O2 saturation remains marginal at best. Clinically however the patient is about the same, has been adjusting his sleep positions and sometimes he notices significant improvement when he lays on the left side of the right side. Unable to go into a prone position. CBC is relatively normal his d-dimer is a bit up 1.38 his electrolytes are normal renal profile is normal, LDH is 566 C-reactive protein is a bit higher today 8.1. Rocaltrol tone and is 0.11. Objective - Vital Signs Vital signs: Vital Signs Temp 98.9 F 11/20/20 09:40 Pulse 90 11/20/20 09:40 Resp 18 11/20/20 09:40 BP 127/68 11/20/20 09:40 Pulse Ox 90 L 11/20/20 09:40 Intake & Output 11/19/20 11/20/20 11/20/20 18:59 06:59 18:59 Intake Total 480 Output Total 600 1060 Balance -120 -1060 Intake: Oral 480 Output: Urine 600 1060 Other: Voiding Method Urinal # Voids 3 # Bowel Movements 0 - Exam Gen: This is a 60-year-old obese male, not in distress on nonrebreather mask and airvo HEENT: Head is atraumatic, normocephalic. [place], EOMI, nonicteric, no neck masses, no rigidity. NECK: Supple. No JVD. No lymphadenopathy. No thyromegaly. LUNGS: Crackles at the bases persist, no rhonchi no wheezes. HEART: Regular rate and rhythm. No murmur. ABDOMEN: obese. Soft. Bowel sounds are present. No masses. No tenderness. EXTREMITIES: No pedal edema. No calf tenderness. NEUROLOGICAL:Alert and oriented 3 no gross focal deficits. Psychiatric: Normal mood, affect and normal mental status examination. Skin: No rashes. - Labs CBC & Chem 7: 11/19/20 06:56 11/19/20 06:56 Labs: Abnormal Lab Results - Last 24 Hours (Table) 11/19/20 Range/Units 06:56 Hemoglobin A1c 6.4 H (4.0-6.0) % Microbiology - Last 24 Hours (Table) 11/14/20 13:16 Blood Culture - Preliminary Blood No Growth after 120 hours 11/14/20 13:33 Blood Culture - Preliminary Blood No Growth after 120 hours Assessment and Plan Assessment: Impression: Acute hypoxic referred failure secondary to COVID-19 pneumonia patient is not vaccinated, started on baricitinib on 11/15, patient was out of the window for remdesivir. Patient is also on Decadron, and on Lovenox. 40 mg subcu twice a day. Obesity with BMI of 38. Increased inflammatory markers secondary to COVID-19 pneumonia/infection. Recommendation: Continue COVID-19 cocktail. Continue oxygen and titrate accordingly. Continue Decadron and Lovenox. Continue to place the patient in prone positions frequently. Continue baricitinib, total length of treatment this 14 days Prognosis remains relatively guarded Time with Patient: Less than 30
[2020-11-20] MEDS: BARICITINIB 2 MG TABLET PO SCH (13:39)
[2020-11-20] MEDS: MIRTAZAPINE 15 MG TAB PO SCH (21:07)
[2020-11-20] MEDS: MELATONIN 3 MG TABLET PO SCH (21:07)
[2020-11-21] MEDS: ENOXAPARIN 40 MG/0.4 ML SYRINGE SQ SCH ×2 (09:23→21:17)
[2020-11-21] MEDS: ASCORBIC ACID 500 MG TAB PO SCH ×2 (09:24→21:18)
[2020-11-21] MEDS: ALPRAZolam 0.25 MG TAB PO SCH ×3 (09:25→21:18)
[2020-11-21] MEDS: dexAMETHasone 2 MG TAB PO SCH (09:25)
[2020-11-21] MEDS: ZINC SULFATE 220 MG CAP PO SCH (09:26)
[2020-11-21] MEDS: FLUTICASONE 50MCG/SPRAY NASAL 16GM EA NOSTRIL SCH (09:29)
[2020-11-21] MEDS: DICLOFENAC SODIUM GEL 100 GM TUBE TOPICAL SCH ×4 (09:30→21:19)
[2020-11-21] MEDS: ALBUTEROL HFA INHALER INHALATION SCH ×3 (09:45→19:24)
[2020-11-21] MEDS ORDERED: CHOLECALCIFEROL 25 MCG (1000 IU) TABLET PO ONE (09:45)
[2020-11-21] MEDS: SYMBICORT 160-4.5 MCG INHALER INHALATION SCH ×2 (09:45→19:25)
[2020-11-21 11:19] LABS: HCT 47.4 % (39.0-53.0); HGB 15.6 gm/dL (13.0-17.5); MCH 29.4 pg (25.0-35.0); MCHC 32.9 g/dL (31.0-37.0); MCV 89.3 fL (80.0-100.0); Platelet Count 313 k/uL (150-450); RBC 5.31 m/uL (4.30-5.90); RDW 13.4 % (11.5-15.5); Sodium 138 mmol/L (137-145); WBC 14.3 k/uL (3.8-10.6)
[2020-11-21 11:24] LABS: ALT 61 U/L (4-49); AST 57 U/L (17-59); African American GFR (CKD) >90 (>60 ml/min/1.73 sqM); Albumin 3.3 g/dL (3.5-5.0); Albumin/Globulin Ratio 1.2; Alkaline Phosphatase 68 U/L (38-126); Anion Gap 9 mmol/L; Blood Urea Nitrogen 29 mg/dL (9-20); C Reactive Protein 6.6 mg/dL (<1.0); Carbon Dioxide 24 mmol/L (22-30); Chloride 105 mmol/L (98-107); Globulin 2.8 g/dL; Glucose 101 mg/dL (74-99); LDH 1476 U/L (313-618); Non-African American GFR(CKD) >90 (>60 ml/min/1.73 sqM); Potassium 4.4 mmol/L (3.5-5.1); Total Bilirubin 0.8 mg/dL (0.2-1.3); Total Protein 6.1 g/dL (6.3-8.2)
[2020-11-21] MEDS: BARICITINIB 2 MG TABLET PO SCH (14:02)
[2020-11-21] MEDS: ACETAMINOPHEN TAB 325 MG TAB PO PRN (14:23)
--- NOTE | 2020-11-21 14:30 | P.PN ---
Subjective Progress Note Date: 11/20/20 HISTORY OF PRESENT ILLNESS This is a pleasant 60-year-old gentleman patient of Dr. Ridge Christina. He doesn't see a physician often and does not note any medical diseases, except for obesity. He comes seen secondary to fever and chills, cough, starting December 06 first, along with muscle aches, lack of appetite and diarrhea. he was tested for call bid November 08, which required at week of reporting, subsequently was sent to emergency room secondary to worsening symptoms, including dyspnea on exertion, shortness of breath and worsening cough without hemoptysis. Fever, sh ortness of breath lingers, no treatment given to him prior to this admission. The is vaccinated, but the patient is not. He does not believe in vaccines at that time. He comes in the emergency room, with hypoxemia, with very minimal conversational dyspnea, chest x-ray, shows pulmonary infiltrate consistent with Covid pneumonia, oxygen currently is at 6 L nasal cannula, d-dimer was 0.6, LFTs are minimally elevated, 64 AST, lactic acid 2.0 sodium 132, creatinine of 0.9, glucose of 122, LDH of 888, CRP of 5.7. Urine protein noted, without hematuria or proteinuria. Covid was again retested 11/14, PCR is positive. Consult to Dr. Eduardo and pulmonary,, 11/16: Patient is currently on oxygen at 6 L nasal cannula increased to 7 L with humidified oxygen. Patient seen and followed by pulmonary medicine and has been started on Bariticinib, Decadron 6 mg daily, and prophylactic dose of Lovenox. He is reaching 1750 on incentive spirometry. Patient did have episode of diarrhea yesterday, none today and complains of decreased appetite. Patient complains of nasal congestion and Flonase added. 11/17: Patient had difficulty with oxygenation during the night and this morning transitioned to Airfo and partial nonrebreather. Pulse ox is currently running 90-92%, patient is prone. He has been afebrile, heart rate 88, blood pressure 104/63. Repeat d-dimer is elevated at 0.93. Blood sugar 167. C-reactive protein increased to 5.3. AST is 83 and ALT 51. Blood culture remains with no growth after 48 hours. Repeat chest x-ray reveals mild cardiomegaly with bilateral multifocal opacities consistent with Covid 19 infection. No significant change from most recent x-ray. Albuterol inhaler and Symbicort inhaler added. 11/18: Patient is currently on AirVo and nonrebreather with pulse ox of 93%. He's been afebrile, heart rate 85, blood pressure 103/68. Blood culture no growth at 72 hours 2 specimens. Plan to continue proning. Repeat laboratory studies ordered for tomorrow including inflammatory markers. The patient is having difficulty sleeping and melatonin added. Lovenox increased to twice daily dosing. 11/19: Patient remains in isolation. He is on AirVO plus nonrebreather with pulse ox of 93%. He has been afebrile, heart rate 85, blood pressure 122/69. Patient is found sitting in recliner and encouraged to prone when he is able to. Repeat blood work reveals WBC 12, hemoglobin 14.8, platelet count 282. D-dimer is 1.38. Other blood work is pending. Patient is continued on Decadron, vitamin supplements, Lovenox. He is on day #07/20 of Baricitinib. 11/20: Patient has been afebrile, heart rate 71, blood pressure 107/71, pulse ox 88-93% on AirVo plus nonrebreather. Patient seems to be depressed and frustrated with coarse. Noted that he started on Xanax yesterday by pulmonary. We will add and Remeron 7.5 mg at bedtime. Hemoglobin A1c came back at 6.4. Patient is encouraged to use incentive spirometry, increase activity, prone. Discussed CODE STATUS with patient and he wishes to be a full code. REVIEW OF SYSTEMS Constitutional: No fever, no chills, no night sweats. No weight change. Reports weakness, reports fatigue reports lethargy. Reports daytime sleepiness. EENT: No headache. No blurred vision or double vision, no loss of vision. No loss of Hearing, no ringing in the ears, no dizziness. No nasal drainage or congestion. No epistaxis. No sore throat. Lungs Reported shortness of breath, reported cough, no sputum production. No wheezing. Cardiovascular: No chest pain, no lower extremity edema. No palpitations. No paroxysmal nocturnal dyspnea. No orthopnea. No lightheadedness or dizziness. No syncopal episodes. Abdominal: No abdominal pain. No nausea, vomiting. Reports diarrhea. No constipation. No bloody or tarry stools. Reports loss of appetite. Genitourinary: No dysuria, increased frequency, urgency. No urinary retention. Musculoskeletal: No myalgias. Generalized muscle weakness, no gait dysfunction, no frequent falls. No back pain. No neck pain. Integumentary: No wounds, no lesions. No rash or pruritus. No unusual bruising. Neurologic: No aphasia. No facial droop. No change in mentation. No head injury. No headache. No paralysis. No paresthesia. Psychiatric: No depression. No anxiety. No mood swings.Insomnia. Endocrine: No abnormal blood sugars. No weight change. PHYSICAL EXAMINATION Gen: This is a 60-year-old obese male. He appears to be comfortable at rest. Patient is resting in recliner with airvo and nonrebreather. HEENT: Head is atraumatic, normocephalic. Pupils equal, round. Sclerae is anicteric. NECK: Supple. No JVD. No lymphadenopathy. No thyromegaly. LUNGS: Diminished breath sounds. No wheezes or rhonchi. No intercostal retractions. HEART: Regular rate and rhythm. No murmur. ABDOMEN: obese. Soft. Bowel sounds are present. No masses. No tenderness. EXTREMITIES: No pedal edema. No calf tenderness. NEUROLOGICAL: Patient is awake, alert and oriented x3. Cranial nerves 2 through 12 are grossly intact. ASSESSMENT AND PLAN 1. Moderate severe COVID-19, with pneumonia, with acute hypoxemic respiratory failure, diagnosis was of 11/08/2020, symptoms started December 06 first. Patient is not vaccinated, and since being seen in consultation by pulmonary, he is on dexamethasone 6 mg daily, Lovenox 40 mg twice daily, continue Baricitinib 4 mg oral daily, continue albuterol inhaler, Symbicort inhaler, prone positioning. Continue O2 supplementation repeat inflammatory markers. 2. Morbid obesity BMI 38 3. DVT prophylaxis Lovenox Increased frequency to twice daily. GI prophylaxis Pepcid BPH without LUTs Proteinuria, unknown cause, Dymetabolic syndrome, monitor for hyperglycemia, check A1c CODE Status: DISCHARGE PLAN home Impression and plan of care have been directed as dictated by the signing physician. Sanam Valentine nurse practitioner acting as scribe for signing physician. Objective - Vital Signs Vital signs: Vital Signs Temp 98.4 F 11/20/20 06:44 Pulse 71 11/20/20 06:44 Resp 19 11/20/20 06:44 BP 107/71 11/20/20 06:44 Pulse Ox 93 L 11/20/20 06:44 Intake & Output 11/19/20 11/20/20 11/20/20 18:59 06:59 18:59 Intake Total 480 Output Total 600 1060 Balance -120 -1060 Intake: Oral 480 Output: Urine 600 1060 Other: Voiding Method Urinal # Voids 3 # Bowel Movements 0 - Labs CBC & Chem 7: 11/21/20 10:32 11/21/20 10:32 Labs: Abnormal Lab Results - Last 24 Hours (Table) 11/19/20 11/19/20 11/19/20 Range/Units 06:56 06:56 06:56 WBC 12.01 H (4.50-10.00) X 10*3/uL Immature Gran # 0.36 H (0.00-0.04) X 10*3/uL Neutrophils # 10.16 H (1.80-7.70) X 10*3/uL Eosinophils # 0 L (0.04-0.35) X 10*3/uL BUN/Creatinine Ratio (12.00-20.00) Ratio Glucose (70-110) mg/dL Hemoglobin A1c 6.4 H (4.0-6.0) % Calcium (8.7-10.3) mg/dL AST (14-35) U/L ALT (10-49) U/L Lactate Dehydrogenase (120-246) U/L C-Reactive Protein (0.0-0.8) mg/dL Total Protein (6.2-8.2) g/dL Albumin (3.80-4.90) g/dL Procalcitonin 0.11 H (0.02-0.09) ng/mL 11/19/20 Range/Units 06:56 WBC (4.50-10.00) X 10*3/uL Immature Gran # (0.00-0.04) X 10*3/uL Neutrophils # (1.80-7.70) X 10*3/uL Eosinophils # (0.04-0.35) X 10*3/uL BUN/Creatinine Ratio 31.25 H (12.00-20.00) Ratio Glucose 111 H (70-110) mg/dL Hemoglobin A1c (4.0-6.0) % Calcium 8.6 L (8.7-10.3) mg/dL AST 51 H (14-35) U/L ALT 71 H (10-49) U/L Lactate Dehydrogenase 566 H (120-246) U/L C-Reactive Protein 8.1 H (0.0-0.8) mg/dL Total Protein 5.9 L (6.2-8.2) g/dL Albumin 3.70 L (3.80-4.90) g/dL Procalcitonin (0.02-0.09) ng/mL Microbiology - Last 24 Hours (Table) 11/14/20 13:16 Blood Culture - Preliminary Blood No Growth after 120 hours 11/14/20 13:33 Blood Culture - Preliminary Blood No Growth after 120 hours
--- NOTE | 2020-11-21 14:34 | P.PN ---
Subjective Progress Note Date: 11/21/20 HISTORY OF PRESENT ILLNESS This is a pleasant 60-year-old gentleman patient of Dr. Ridge Christina. He doesn't see a physician often and does not note any medical diseases, except for obesity. He comes seen secondary to fever and chills, cough, starting December 06 first, along with muscle aches, lack of appetite and diarrhea. he was tested for call bid November 08, which required at week of reporting, subsequently was sent to emergency room secondary to worsening symptoms, including dyspnea on exertion, shortness of breath and worsening cough without hemoptysis. Fever, sh ortness of breath lingers, no treatment given to him prior to this admission. The is vaccinated, but the patient is not. He does not believe in vaccines at that time. He comes in the emergency room, with hypoxemia, with very minimal conversational dyspnea, chest x-ray, shows pulmonary infiltrate consistent with Covid pneumonia, oxygen currently is at 6 L nasal cannula, d-dimer was 0.6, LFTs are minimally elevated, 64 AST, lactic acid 2.0 sodium 132, creatinine of 0.9, glucose of 122, LDH of 888, CRP of 5.7. Urine protein noted, without hematuria or proteinuria. Covid was again retested 11/14, PCR is positive. Consult to Dr. Eduardo and pulmonary,, 11/16: Patient is currently on oxygen at 6 L nasal cannula increased to 7 L with humidified oxygen. Patient seen and followed by pulmonary medicine and has been started on Bariticinib, Decadron 6 mg daily, and prophylactic dose of Lovenox. He is reaching 1750 on incentive spirometry. Patient did have episode of diarrhea yesterday, none today and complains of decreased appetite. Patient complains of nasal congestion and Flonase added. 11/17: Patient had difficulty with oxygenation during the night and this morning transitioned to Airfo and partial nonrebreather. Pulse ox is currently running 90-92%, patient is prone. He has been afebrile, heart rate 88, blood pressure 104/63. Repeat d-dimer is elevated at 0.93. Blood sugar 167. C-reactive protein increased to 5.3. AST is 83 and ALT 51. Blood culture remains with no growth after 48 hours. Repeat chest x-ray reveals mild cardiomegaly with bilateral multifocal opacities consistent with Covid 19 infection. No significant change from most recent x-ray. Albuterol inhaler and Symbicort inhaler added. 11/18: Patient is currently on AirVo and nonrebreather with pulse ox of 93%. He's been afebrile, heart rate 85, blood pressure 103/68. Blood culture no growth at 72 hours 2 specimens. Plan to continue proning. Repeat laboratory studies ordered for tomorrow including inflammatory markers. The patient is having difficulty sleeping and melatonin added. Lovenox increased to twice daily dosing. 11/19: Patient remains in isolation. He is on AirVO plus nonrebreather with pulse ox of 93%. He has been afebrile, heart rate 85, blood pressure 122/69. Patient is found sitting in recliner and encouraged to prone when he is able to. Repeat blood work reveals WBC 12, hemoglobin 14.8, platelet count 282. D-dimer is 1.38. Other blood work is pending. Patient is continued on Decadron, vitamin supplements, Lovenox. He is on day #07/20 of Baricitinib. 11/20: Patient has been afebrile, heart rate 71, blood pressure 107/71, pulse ox 88-93% on AirVo plus nonrebreather. Patient seems to be depressed and frustrated with coarse. Noted that he started on Xanax yesterday by pulmonary. We will add and Remeron 7.5 mg at bedtime. Hemoglobin A1c came back at 6.4. Patient is encouraged to use incentive spirometry, increase activity, prone. Discussed CODE STATUS with patient and he wishes to be a full code. 11/21: Patient will pulse ox of 83% as he was on Airvo only and once nonrebreather was placed she went up to 89%. Patient is not eating much. He has been encouraged to take protein supplement, increase activity and prone but patient does not seem motivated. He was started on Remeron last night which will hopefully help with his mood and appetite. He has continued on Lovenox, dexamethasone, Baricitinib #09/19 repeat blood work reveals WBC 14.3. D-dimer increasing to 3.2. Electrolytes normal, creatinine 0.76. LDH is high at 1476, C-reactive protein stable 6.6. REVIEW OF SYSTEMS Constitutional: No fever, no chills, no night sweats. No weight change. Reports weakness, reports fatigue reports lethargy. Reports daytime sleepiness. EENT: No headache. No blurred vision or double vision, no loss of vision. No loss of Hearing, no ringing in the ears, no dizziness. No nasal drainage or congestion. No epistaxis. No sore throat. Lungs Reported shortness of breath, reported cough, no sputum production. No wheezing. Cardiovascular: No chest pain, no lower extremity edema. No palpitations. No paroxysmal nocturnal dyspnea. No orthopnea. No lightheadedness or dizziness. No syncopal episodes. Abdominal: No abdominal pain. No nausea, vomiting. Reports diarrhea. No constipation. No bloody or tarry stools. Reports loss of appetite. Genitourinary: No dysuria, increased frequency, urgency. No urinary retention. Musculoskeletal: No myalgias. Generalized muscle weakness, no gait dysfunction, no frequent falls. No back pain. No neck pain. Integumentary: No wounds, no lesions. No rash or pruritus. No unusual bruising. Neurologic: No aphasia. No facial droop. No change in mentation. No head injury. No headache. No paralysis. No paresthesia. Psychiatric: No depression. No anxiety. No mood swings. Insomnia. Endocrine: No abnormal blood sugars. PHYSICAL EXAMINATION Gen: This is a 60-year-old obese male. He appears to be comfortable at rest. Noted fatigue. Patient is resting in recliner with airvo and nonrebreather. HEENT: Head is atraumatic, normocephalic. Pupils equal, round. Sclerae is anicteric. NECK: Supple. No JVD. No lymphadenopathy. No thyromegaly. LUNGS: Diminished breath sounds. No wheezes or rhonchi. No intercostal retractions. HEART: Regular rate and rhythm. No murmur. ABDOMEN: obese. Soft. Bowel sounds are present. No masses. No tenderness. EXTREMITIES: No pedal edema. No calf tenderness. NEUROLOGICAL: Patient is awake, alert and oriented x3. Cranial nerves 2 through 12 are grossly intact. ASSESSMENT AND PLAN 1. Moderate severe COVID-19, with pneumonia, with acute hypoxemic respiratory failure, diagnosis was of 11/08/2020, symptoms started December 06 first. Patient is not vaccinated, and since being seen in consultation by pulmonary, he is on dexamethasone 6 mg daily, Lovenox 40 mg twice daily, continue Baricitinib 4 mg oral daily, continue albuterol inhaler, Symbicort inhaler, prone positioning. Continue O2 supplementation repeat inflammatory markers. Continue supportive care. 2. Morbid obesity BMI 38 3. DVT prophylaxis Lovenox Increased frequency to twice daily. GI prophylaxis Pepcid BPH without LUTs Proteinuria, unknown cause, Dymetabolic syndrome, monitor for hyperglycemia, check A1c CODE Status: DISCHARGE PLAN home Impression and plan of care have been directed as dictated by the signing physician. Sanam Valentine nurse practitioner acting as scribe for signing physician. Objective - Vital Signs Vital signs: Vital Signs Temp 97.9 F 11/21/20 09:53 Pulse 95 11/21/20 09:53 Resp 20 11/21/20 09:53 BP 98/62 11/21/20 09:53 Pulse Ox 97 11/21/20 09:53 Intake & Output 11/20/20 11/21/20 11/21/20 18:59 06:59 18:59 Intake Total 900 Output Total 1 400 Balance -1 500 Weight 113.398 kg Intake: Intake, IV Titration 900 Amount Sodium Chloride 0.9% 1, 900 000 ml @ 75 mls/hr IV . [id number] ONE Rx#:[id number] Output: Urine 400 Stool 1 Other: Voiding Method Urinal # Voids 1 - Labs CBC & Chem 7: 11/21/20 10:32 11/21/20 10:32 Labs: Microbiology - Last 24 Hours (Table) 11/14/20 13:16 Blood Culture - Final Blood No Growth after 144 hours 11/14/20 13:33 Blood Culture - Final Blood No Growth after 144 hours
--- NOTE | 2020-11-21 14:53 | P.PN ---
Subjective Progress Note Date: 11/21/20 Principal diagnosis: Acute hypoxic respiratory failure secondary to COVID-19 pneumonia. On today's evaluation on the 11/15/2020 patient seen in follow-up on medical surgical floor. His O2 saturations are marginal, on 6 L his pulse ox is 90%. Does not seem to be in any acute distress, no increased work of breathing. Occasional cough, nonproductive, patient was outside the window for Remdesivir. He is not vaccinated, S x-ray on admission showed significant patchy infiltrates compatible with his history of COVID-19 infection. Blood pressure has been stable, afebrile. His labs have been reviewed, d-dimer is 0.52, which is 888, CRP is 5.7. Patient is currently on Decadron 6 mg, he is on prophylactic dose Lovenox. Today's evaluation on 11/16/2020 patient seen in follow-up on medical surgical floor, his oxygen demand has increased in the last 24 hours, and his FiO2 was titrated to 10 L, his pulse ox is 91-92%, does not appear to be in any acute respiratory distress, he sitting up in the chair, is awake and alert, oriented 3, his been afebrile overnight, blood pressure is been stable, today's chest x- ray shows patchy perihilar and left lower lobe infiltrate persistence. The patient was started on on Bariticinib, Decadron 6 mg daily, and prophylactic dose of Lovenox. His appetite is poor per nursing staff, he seems to be depressed. Labs have been reviewed, his d-dimer is low at 0.50, his LDH from yesterday was 888, and CRP was 5.7. On 11/17/2020 patient seen in follow-up on the surgical floor. He is currently on Airvo 60 L and FiO2 of 94% in addition to partial nonrebreather mask and his pulse ox is around 90-92%. Patient easily desaturates with any activity. He is currently on his abdomen, he is self proning, and his oxygen does improve when he does that with a pulse ox of 95-96%, he tolerates proning fairly well. Patient is on day 3 of Bariticinib, he is also on Decadron 6 g daily, and prophylactic dose of Lovenox. His chest x-ray today shows mild cardiomegaly with bilateral multifocal opacities with no significant change from most recent chest x-ray. Today's labs have been reviewed, with blood cell count is 10, hemoglobin is 14.9, lymphocyte count is 0.7, d-dimer is 0.93, electrolytes are within normal limits, BUN is 25 creatinine 0.82. Reevaluated today on 11/18/2020, patient remains on airvo , and on nonrebreather mask, his FiO2 is at 90%, and flow is 60 L/m via airvo. Saturation is marginal, however the patient seems to be rather comfortable. His O2 saturation is in the low 90s, desaturates easily with activity. He is doing self groaning, and he does improve with self groaning hence I'm recommending titrating his FiO2 down as his oxygenation improved. BC today is relatively normal d-dimer is up a bit at 0.93. Electrolytes are normal renal profile is normal. Last chest x-ray from 11/17 continues to show bilateral multifocal opacities consistent with COVID-19 infection, not much improvement noted based on the chest x-ray. Patient was reevaluated today on 11/19/2020, remains on the regular medical fl oor, remains on Airvo plus nonrebreather mask, and his O2 saturation is in the range of 93-96%. Patient is surprisingly comfortable, sitting in a recliner, not in any distress. WBC count is 12 hemoglobin 14.8 electrolytes are normal renal profile is normal, LDH is 566 and his C-reactive protein is 8.1. Slightly bit more elevated compared to yesterday. Patient remains on the COVID-19 cocktail, remains on Lovenox at 40 mg subcu twice a day, and he is on Decadron, as well as baricitinib Reevaluated today on 11/20/2020, patient is basically about the same, not much different today from yesterday. O2 saturation remains marginal in the low 90s, patient remains on airvo at 90%, and 60 L flow. He also has a nonrebreather mask, and O2 saturation remains marginal at best. Clinically however the patient is about the same, has been adjusting his sleep positions and sometimes he notices significant improvement when he lays on the left side of the right side. Unable to go into a prone position. CBC is relatively normal his d-dimer is a bit up 1.38 his electrolytes are normal renal profile is normal, LDH is 566 C-reactive protein is a bit higher today 8.1. Pro-calcitonin is 0.11 Patient was reevaluated today on 11/21/2020, remains on airvo at maximal flow and FiO2, patient remains on nonrebreather mask, O2 saturation is in the high 80s and low 90s. Patient feels better in the right lateral decubitus position, he is basically overall about the same. He is not demonstrating any significant improvement or any worsening. Remains on all the COVID-19 cocktail, not much changed. D-dimer 3.2 today. Objective - Vital Signs Vital signs: Vital Signs Temp 97.9 F 11/21/20 09:53 Pulse 95 11/21/20 09:53 Resp 20 11/21/20 09:53 BP 98/62 11/21/20 09:53 Pulse Ox 97 11/21/20 09:53 Intake & Output 11/20/20 11/21/20 11/21/20 18:59 06:59 18:59 Intake Total 900 Output Total 1 400 Balance -1 500 Weight 113.398 kg Intake: Intake, IV Titration 900 Amount Sodium Chloride 0.9% 1, 900 000 ml @ 75 mls/hr IV . [id number] ONE Rx#:[id number] Output: Urine 400 Stool 1 Other: Voiding Method Urinal Urinal # Voids 1 - Exam Gen: This is a 60-year-old obese male, not in distress on nonrebreather mask and airvo HEENT: Head is atraumatic, normocephalic. [place], EOMI, nonicteric, no neck masses, no rigidity. NECK: Supple. No JVD. No lymphadenopathy. No thyromegaly. LUNGS: Crackles at the bases persist, no rhonchi no wheezes. HEART: Regular rate and rhythm. No murmur. ABDOMEN: obese. Soft. Bowel sounds are present. No masses. No tenderness. EXTREMITIES: No pedal edema. No calf tenderness. NEUROLOGICAL:Alert and oriented 3 no gross focal deficits. Psychiatric: Normal mood, affect and normal mental status examination. Skin: No rashes. - Labs CBC & Chem 7: 11/21/20 10:32 11/21/20 10:32 Labs: Abnormal Lab Results - Last 24 Hours (Table) 11/21/20 11/21/20 11/21/20 Range/Units 10:32 10:32 10:32 WBC 14.3 H (3.8-10.6) k/uL D-Dimer 3.20 H (<0.60) mg/L FEU BUN 29 H (9-20) mg/dL Glucose 101 H (74-99) mg/dL ALT 61 H (4-49) U/L Lactate Dehydrogenase 1476 H (313-618) U/L C-Reactive Protein 6.6 H (<1.0) mg/dL Total Protein 6.1 L (6.3-8.2) g/dL Albumin 3.3 L (3.5-5.0) g/dL Microbiology - Last 24 Hours (Table) 11/14/20 13:16 Blood Culture - Final Blood No Growth after 144 hours 11/14/20 13:33 Blood Culture - Final Blood No Growth after 144 hours Assessment and Plan Assessment: Impression: Acute hypoxic referred failure secondary to COVID-19 pneumonia patient is not vaccinated, started on baricitinib on 11/15, patient was out of the window for remdesivir. Patient is also on Decadron, and on Lovenox. 40 mg subcu twice a day. Obesity with BMI of 38. Increased inflammatory markers secondary to COVID-19 pneumonia/infection. Recommendation: Continue COVID-19 cocktail. Continue oxygen and titrate accordingly. Continue Decadron and Lovenox. 40 mg subcu twice a day. Continue to place the patient in prone positions frequently. Continue baricitinib, total length of treatment this 14 days Prognosis remains relatively guarded Time with Patient: Less than 30
[2020-11-21 18:15] LABS: Appearance,Urine Clear (Clear); Bilirubin,Urine Negative (Negative); Blood,Urine Negative (Negative); Color,Urine Yellow; Glucose,Urine (UA) Negative (Negative); Ketones,Urine Negative (Negative); Leukocyte Esterase,Urine Negative (Negative); Nitrite,Urine Negative (Negative); PH, Urine 6.5 (5.0-8.0); Protein,Urine Negative (Negative); Specific Gravity,Urine 1.012 (1.001-1.035)
[2020-11-21] MEDS: MELATONIN 3 MG TABLET PO SCH (21:18)
[2020-11-21] MEDS: MIRTAZAPINE 15 MG TAB PO SCH (21:18)
--- NOTE | 2020-11-22 07:47 | XR ---
EXAMINATION TYPE: XR chest 1V portable DATE OF EXAM: 11/22/2020 Comparison: 11/17/2020 Clinical History: 60-year-old male covid Findings: Heart upper limits of normal in size. Increasing interstitial opacities. Increasing lower lung bilate ral opacities as well. No pleural effusion. Impression: Worsening COVID pneumonia.
[2020-11-22] MEDS: ASCORBIC ACID 500 MG TAB PO SCH ×2 (08:05→22:13)
[2020-11-22] MEDS: dexAMETHasone 2 MG TAB PO SCH (08:05)
[2020-11-22] MEDS: DICLOFENAC SODIUM GEL 100 GM TUBE TOPICAL SCH ×4 (08:05→22:17)
[2020-11-22] MEDS: ZINC SULFATE 220 MG CAP PO SCH (08:05)
[2020-11-22] MEDS: ENOXAPARIN 40 MG/0.4 ML SYRINGE SQ SCH ×2 (08:05→22:13)
[2020-11-22] MEDS: ALPRAZolam 0.25 MG TAB PO SCH ×3 (08:05→22:13)
[2020-11-22] MEDS: FLUTICASONE 50MCG/SPRAY NASAL 16GM EA NOSTRIL SCH (08:05)
[2020-11-22] MEDS: CHOLECALCIFEROL 25 MCG (1000 IU) TABLET PO SCH (08:05)
[2020-11-22] MEDS: ALBUTEROL HFA INHALER INHALATION SCH ×3 (09:08→18:47)
[2020-11-22] MEDS: SYMBICORT 160-4.5 MCG INHALER INHALATION SCH ×2 (09:09→18:47)
[2020-11-22] MEDS ORDERED: FUROSEMIDE 10 MG/ML 4 ML VIAL IV STA (09:37)
[2020-11-22 12:41] LABS: African American GFR (CKD) >90 (>60 ml/min/1.73 sqM); Anion Gap 8 mmol/L; Blood Urea Nitrogen 26 mg/dL (9-20); Calcium 8.9 mg/dL (8.4-10.2); Carbon Dioxide 23 mmol/L (22-30); Chloride 104 mmol/L (98-107); Glucose 159 mg/dL (74-99); Non-African American GFR(CKD) >90 (>60 ml/min/1.73 sqM); Phosphorus 3.5 mg/dL (2.5-4.5); Sodium 135 mmol/L (137-145)
[2020-11-22 12:46] LABS: Magnesium 2.1 mg/dL (1.6-2.3)
--- NOTE | 2020-11-22 12:54 | P.PN ---
Subjective Progress Note Date: 11/22/20 HISTORY OF PRESENT ILLNESS This is a pleasant 60-year-old gentleman patient of Dr. Ridge Christina. He doesn't see a physician often and does not note any medical diseases, except for obesity. He comes seen secondary to fever and chills, cough, starting December 06 first, along with muscle aches, lack of appetite and diarrhea. he was tested for call bid November 08, which required at week of reporting, subsequently was sent to emergency room secondary to worsening symptoms, including dyspnea on exertion, shortness of breath and worsening cough without hemoptysis. Fever, sh ortness of breath lingers, no treatment given to him prior to this admission. The is vaccinated, but the patient is not. He does not believe in vaccines at that time. He comes in the emergency room, with hypoxemia, with very minimal conversational dyspnea, chest x-ray, shows pulmonary infiltrate consistent with Covid pneumonia, oxygen currently is at 6 L nasal cannula, d-dimer was 0.6, LFTs are minimally elevated, 64 AST, lactic acid 2.0 sodium 132, creatinine of 0.9, glucose of 122, LDH of 888, CRP of 5.7. Urine protein noted, without hematuria or proteinuria. Covid was again retested 11/14, PCR is positive. Consult to Dr. Eduardo and pulmonary,, 11/16: Patient is currently on oxygen at 6 L nasal cannula increased to 7 L with humidified oxygen. Patient seen and followed by pulmonary medicine and has been started on Bariticinib, Decadron 6 mg daily, and prophylactic dose of Lovenox. He is reaching 1750 on incentive spirometry. Patient did have episode of diarrhea yesterday, none today and complains of decreased appetite. Patient complains of nasal congestion and Flonase added. 11/17: Patient had difficulty with oxygenation during the night and this morning transitioned to Airfo and partial nonrebreather. Pulse ox is currently running 90-92%, patient is prone. He has been afebrile, heart rate 88, blood pressure 104/63. Repeat d-dimer is elevated at 0.93. Blood sugar 167. C-reactive protein increased to 5.3. AST is 83 and ALT 51. Blood culture remains with no growth after 48 hours. Repeat chest x-ray reveals mild cardiomegaly with bilateral multifocal opacities consistent with Covid 19 infection. No significant change from most recent x-ray. Albuterol inhaler and Symbicort inhaler added. 11/18: Patient is currently on AirVo and nonrebreather with pulse ox of 93%. He's been afebrile, heart rate 85, blood pressure 103/68. Blood culture no growth at 72 hours 2 specimens. Plan to continue proning. Repeat laboratory studies ordered for tomorrow including inflammatory markers. The patient is having difficulty sleeping and melatonin added. Lovenox increased to twice daily dosing. 11/19: Patient remains in isolation. He is on AirVO plus nonrebreather with pulse ox of 93%. He has been afebrile, heart rate 85, blood pressure 122/69. Patient is found sitting in recliner and encouraged to prone when he is able to. Repeat blood work reveals WBC 12, hemoglobin 14.8, platelet count 282. D-dimer is 1.38. Other blood work is pending. Patient is continued on Decadron, vitamin supplements, Lovenox. He is on day #07/20 of Baricitinib. 11/20: Patient has been afebrile, heart rate 71, blood pressure 107/71, pulse ox 88-93% on AirVo plus nonrebreather. Patient seems to be depressed and frustrated with coarse. Noted that he started on Xanax yesterday by pulmonary. We will add and Remeron 7.5 mg at bedtime. Hemoglobin A1c came back at 6.4. Patient is encouraged to use incentive spirometry, increase activity, prone. Discussed CODE STATUS with patient and he wishes to be a full code. 11/21: Patient will pulse ox of 83% as he was on Airvo only and once nonrebreather was placed she went up to 89%. Patient is not eating much. He has been encouraged to take protein supplement, increase activity and prone but patient does not seem motivated. He was started on Remeron last night which will hopefully help with his mood and appetite. He has continued on Lovenox, dexamethasone, Baricitinib #09/19 repeat blood work reveals WBC 14.3. D-dimer increasing to 3.2. Electrolytes normal, creatinine 0.76. LDH is high at 1476, C-reactive protein stable 6.6. 11/22: Patient continues to be on airflow and nonrebreather and with minimal movement, pulse ox drops down to 82%, otherwise patient is maintaining 92-94%. One dose of IV Lasix ordered for today. Temperature max yesterday afternoon was 101.2. Heart rate in the 70s and 80s. Blood pressure 110/59. Urinalysis was negative for infection. Repeat blood work will be ordered for tomorrow. REVIEW OF SYSTEMS Constitutional: No fever, no chills, no night sweats. No weight change. Reports weakness, reports fatigue reports lethargy. Reports daytime sleepiness. EENT: No headache. No blurred vision or double vision, no loss of vision. No loss of Hearing, no ringing in the ears, no dizziness. No nasal drainage or congestion. No epistaxis. No sore throat. Lungs Reported shortness of breath, reported cough, no sputum production. No wheezing. Dyspnea with minimal exertion. Cardiovascular: No chest pain, no lower extremity edema. No palpitations. No paroxysmal nocturnal dyspnea. No orthopnea. No lightheadedness or dizziness. No syncopal episodes. Abdominal: No abdominal pain. No nausea, vomiting. Reports diarrhea. No const ipation. No bloody or tarry stools. Reports loss of appetite. Genitourinary: No dysuria, increased frequency, urgency. No urinary retention. Musculoskeletal: No myalgias. Generalized muscle weakness, no gait dysfunction, no frequent falls. No back pain. No neck pain. Integumentary: No wounds, no lesions. No rash or pruritus. No unusual bruising. Neurologic: No aphasia. No facial droop. No change in mentation. No head injury. No headache. No paralysis. No paresthesia. Psychiatric: No depression. No anxiety. No mood swings. Insomnia. Endocrine: No abnormal blood sugars. PHYSICAL EXAMINATION Gen: This is a 60-year-old obese male. Patient developed significant shortness of breath with minimal activity. He is resting in recliner with airvo and nonrebreather. HEENT: Head is atraumatic, normocephalic. Pupils equal, round. Sclerae is anic teric. NECK: Supple. No JVD. No lymphadenopathy. No thyromegaly. LUNGS: Diminished breath sounds. No wheezes or rhonchi. No intercostal retractions. HEART: Regular rate and rhythm. No murmur. ABDOMEN: obese. Soft. Bowel sounds are present. No masses. No tenderness. EXTREMITIES: No pedal edema. No calf tenderness. NEUROLOGICAL: Patient is awake, alert and oriented x3. Cranial nerves 2 through 12 are grossly intact. ASSESSMENT AND PLAN 1. Sepsis (POA) secondary to COVID-19 pneumonia, with acute hypoxemic respiratory failure, diagnosis was of 11/08/2020, symptoms started December 06 first. Patient is not vaccinated, and since being seen in consultation by mick tamez, he is on dexamethasone 6 mg daily, Lovenox 40 mg twice daily, continue Baricitinib 4 mg oral daily, continue albuterol inhaler, Symbicort inhaler, prone positioning. Continue O2 supplementation repeat inflammatory markers. Continue supportive care. 2. Morbid obesity BMI 38 3. DVT prophylaxis Lovenox Increased frequency to twice daily. GI prophylaxis Pepcid BPH without LUTs Proteinuria, unknown cause, Dymetabolic syndrome, monitor for hyperglycemia, check A1c CODE Status: DISCHARGE PLAN home Impression and plan of care have been directed as dictated by the signing physician. Sanam Valentine nurse practitioner acting as scribe for signing physici an. Objective - Vital Signs Vital signs: Vital Signs Temp 98.1 F 11/22/20 05:57 Pulse 75 11/22/20 05:57 Resp 22 11/22/20 05:57 BP 112/69 11/22/20 05:57 Pulse Ox 86 L 11/22/20 05:57 Intake & Output 11/21/20 11/22/20 11/22/20 18:59 06:59 18:59 Intake Total 750 Output Total 500 500 Balance -500 250 Intake: Intake, IV Titration 750 Amount Sodium Chloride 0.9% 1, 750 000 ml @ 75 mls/hr IV . [id number] ONE Rx#:[id number] Output: Urine 500 500 Other: Voiding Method Urinal # Voids 600 - Labs CBC & Chem 7: 11/21/20 10:32 11/21/20 10:32 Labs: Abnormal Lab Results - Last 24 Hours (Table) 11/21/20 11/21/20 11/21/20 Range/Units 10:32 10:32 10:32 WBC 14.3 H (3.8-10.6) k/uL D-Dimer 3.20 H (<0.60) mg/L FEU BUN 29 H (9-20) mg/dL Glucose 101 H (74-99) mg/dL ALT 61 H (4-49) U/L Lactate Dehydrogenase 1476 H (313-618) U/L C-Reactive Protein 6.6 H (<1.0) mg/dL Total Protein 6.1 L (6.3-8.2) g/dL Albumin 3.3 L (3.5-5.0) g/dL Procalcitonin (0.02-0.09) ng/mL 11/21/20 Range/Units 15:24 WBC (3.8-10.6) k/uL D-Dimer (<0.60) mg/L FEU BUN (9-20) mg/dL Glucose (74-99) mg/dL ALT (4-49) U/L Lactate Dehydrogenase (313-618) U/L C-Reactive Protein (<1.0) mg/dL Total Protein (6.3-8.2) g/dL Albumin (3.5-5.0) g/dL Procalcitonin 0.14 H (0.02-0.09) ng/mL
[2020-11-22] MEDS: BARICITINIB 2 MG TABLET PO SCH (13:33)
[2020-11-22 15:13] LABS: INR 1.1 (<1.2); Prothrombin Time 11.9 sec (9.0-12.0)
[2020-11-22 15:20] LABS: Glucose,Whole Blood 144 mg/dL (75-99)
--- NOTE | 2020-11-22 15:36 | P.PN ---
Subjective Progress Note Date: 11/22/20 Principal diagnosis: COVID-19 pneumonia On today's evaluation on the 11/15/2020 patient seen in follow-up on medical surgical floor. His O2 saturations are marginal, on 6 L his pulse ox is 90%. Does not seem to be in any acute distress, no increased work of breathing. Occasional cough, nonproductive, patient was outside the window for Remdesivir. He is not vaccinated, S x-ray on admission showed significant patchy infiltrates compatible with his history of COVID-19 infection. Blood pressure has been stable, afebrile. His labs have been reviewed, d-dimer is 0.52, which is 888, CRP is 5.7. Patient is currently on Decadron 6 mg, he is on prophylactic dose Lovenox. Today's evaluation on 11/16/2020 patient seen in follow-up on medical surgical floor, his oxygen demand has increased in the last 24 hours, and his FiO2 was titrated to 10 L, his pulse ox is 91-92%, does not appear to be in any acute respiratory distress, he sitting up in the chair, is awake and alert, oriented 3, his been afebrile overnight, blood pressure is been stable, today's chest x- ray shows patchy perihilar and left lower lobe infiltrate persistence. The patient was started on on Bariticinib, Decadron 6 mg daily, and prophylactic dose of Lovenox. His appetite is poor per nursing staff, he seems to be depressed. Labs have been reviewed, his d-dimer is low at 0.50, his LDH from yesterday was 888, and CRP was 5.7. On 11/17/2020 patient seen in follow-up on the surgical floor. He is currently on Airvo 60 L and FiO2 of 94% in addition to partial nonrebreather mask and his pulse ox is around 90-92%. Patient easily desaturates with any activity. He is currently on his abdomen, he is self proning, and his oxygen does improve when he does that with a pulse ox of 95-96%, he tolerates proning fairly well. Patient is on day 3 of Bariticinib, he is also on Decadron 6 g daily, and prophylactic dose of Lovenox. His chest x-ray today shows mild cardiomegaly with bilateral multifocal opacities with no significant change from most recent chest x-ray. Today's labs have been reviewed, with blood cell count is 10, hemoglobin is 14.9, lymphocyte count is 0.7, d-dimer is 0.93, electrolytes are within normal limits, BUN is 25 creatinine 0.82. On 11/22/2020 patient is seen and follow-up on medical surgical floor, he is currently on Airvo at 60 L and FiO2 of 93%, in addition to 100% nonrebreather mask, and he sat been about 85%, with any movement patient desaturates down to 70%, and takes a long time to recover, patient is up in the recliner, he has to sit perfectly still in order not to drop his O2 saturations, he is tired, he does not want to eat. Oral intake has been poor. He continues on Baricitinib, today is day 7 of treatment, in addition to oral Decadron 6 mg daily, Lovenox 40 mg twice daily, patient received a dose of IV Lasix as well today. His chest x-ray today showing increasing lower lung bilateral opacities. No pleural effusion. Today's labs have been reviewed, his INR is 1.1, no d-dimer yet, sodium is 135, the rest of the electrolytes were unremarkable, B1 is 26, creatinine 0.75. Patient hasn't had a new set of inflammatory markers in the last couple of days. Objective - Vital Signs Vital signs: Vital Signs Temp 99.8 F H 11/22/20 10:30 Pulse 88 11/22/20 10:30 Resp 14 11/22/20 10:30 BP 110/59 11/22/20 10:30 Pulse Ox 88 L 11/22/20 12:12 Intake & Output 11/21/20 11/22/20 11/22/20 18:59 06:59 18:59 Intake Total 750 Output Total 500 500 400 Balance -500 250 -400 Weight 113.398 kg Intake: Intake, IV Titration 750 Amount Sodium Chloride 0.9% 1, 750 000 ml @ 75 mls/hr IV . [id number] ONE Rx#:[id number] Output: Urine 500 500 400 Other: Voiding Method Urinal # Voids 600 - Exam GENERAL EXAM: Alert, very pleasant, 60-year-old white male, on Airvo at 60 L and FiO2 of 94% in addition to nonrebreather mask with a pulse ox of 85%, to 95% when the patient is on his abdomen comfortable in no apparent distress. HEAD: Normocephalic/atraumatic. EYES: Normal reaction of pupils, equal size. Conjunctiva pink, sclera white. NOSE: Clear with pink turbinates. THROAT: No erythema or exudates. NECK: No masses, no JVD, no thyroid enlargement, no adenopathy. CHEST: No chest wall deformity. Symmetrical expansion. LUNGS: Equal air entry with no crackles, wheeze, rhonchi or dullness. CVS: Regular rate and rhythm, normal S1 and S2, no gallops, no murmurs, no rubs ABDOMEN: Soft, nontender. No hepatosplenomegaly, normal bowel sounds, no gua rding or rigidity. EXTREMITIES: No clubbing, no edema, no cyanosis, 2+ pulses and upper and lower extremities. MUSCULOSKELETAL: Muscle strength and tone normal. SPINE: No scoliosis or deformity SKIN: No rashes CENTRAL NERVOUS SYSTEM: Alert and oriented -3. No focal deficits, tone is normal in all 4 extremities. PSYCHIATRIC: Alert and oriented -3. Appropriate affect. Intact judgment and insight. - Labs CBC & Chem 7: 11/21/20 10:32 11/22/20 11:53 Labs: Abnormal Lab Results - Last 24 Hours (Table) 11/21/20 11/22/20 11/22/20 Range/Units 15:24 11:53 15:17 Sodium 135 L (137-145) mmol/L BUN 26 H (9-20) mg/dL Glucose 159 H (74-99) mg/dL POC Glucose (mg/dL) 144 H (75-99) mg/dL Procalcitonin 0.14 H (0.02-0.09) ng/mL Assessment and Plan Plan: #1. acute Covid 19 related pneumonia. The patient became symptomatic approximately 8 days ago. Presented with worsening shortness of breath and bilateral pneumonia. Patient is not vaccinated. The patient has not received any outpatient treatments for Covid 19 infection. Diagnosis established during this current admission. Started on Bariticinib on 11/15/2020 in view of worsening hypoxic respiratory failure. Patient was outside the window for Remdesivir #2. acute hypoxic respiratory failure which has significantly progressed since admission, and patient is currently on Airvo at 60 L and FiO2 of 94% in addition to nonrebreather mask, and his pulse ox is 85%. In view of worsening chest x- ray findings and worsening hypoxia patient will be transferred to the intensive care unit today on 11/22/2020 #3. obesity with a BMI of 38. #4. Increased inflammatory markers related to acute COVID-19 pneumonia Plan: Today's chest x-ray has been reviewed Show some worsening Remains on Airvo 60 L and FiO2 of 93% in addition 100% nonrebreather mask, and he is only satting in mid 80s We'll transfer the patient to the intensive care unit for closer monitoring May try BiPAP support with pressures of 12 and 6 and FiO2 of 100% Continue Decadron, and Lovenox He continues on Bariticinib, today is day 7 of treatment Obtain follow-up d-dimer, inflammatory markers PICC line today, initiate TPN Basic labs, follow-up chest x-ray tomorrow I performed a history & physical examination of the patient and discussed their management with my nurse practitioner, Jovita Thomas. I reviewed the nurse practitioner's note and agree with the documented findings and plan of care. Lung sounds are positive for diminished breath sounds throughout the lung felix. The findings and the impression was discussed with the patient. I attest to the documentation by the nurse practitioner. Time with Patient: Less than 30
[2020-11-22] MEDS: SODIUM CHLORIDE 0.9% 1,000 ML IV SCH (19:01)
[2020-11-22] MEDS: DEXAMETHASONE SOD PHOSPHATE 10 MG/ML 1 ML VIAL IV SCH (22:12)
[2020-11-22] MEDS: MELATONIN 3 MG TABLET PO SCH (22:13)
[2020-11-23] MEDS: MIRTAZAPINE 15 MG TAB PO SCH ×2 (01:39→21:02)
[2020-11-23 05:04] LABS: Basophils % (A) 0 %; Eosinophils % (A) 0 %; HCT 43.4 % (39.0-53.0); Lymphocytes # (A) 0.6 k/uL (1.0-4.8); Lymphocytes % (A) 5 %; MCH 30.2 pg (25.0-35.0); MCHC 34.5 g/dL (31.0-37.0); MCV 87.5 fL (80.0-100.0); Mean Platelet Volume 7.9; Monocytes # (A) 0.3 k/uL (0-1.0); Monocytes % (A) 2 %; Neutrophils # (A) 11.1 k/uL (1.3-7.7); Neutrophils % (A) 92 %; Platelet Count 351 k/uL (150-450); RBC 4.96 m/uL (4.30-5.90); RDW 13.3 % (11.5-15.5)
[2020-11-23 05:23] LABS: ALT 46 U/L (4-49); AST 37 U/L (17-59); African American GFR (CKD) >90 (>60 ml/min/1.73 sqM); Alkaline Phosphatase 76 U/L (38-126); Anion Gap 6 mmol/L; Blood Urea Nitrogen 30 mg/dL (9-20); Calcium 8.7 mg/dL (8.4-10.2); Carbon Dioxide 27 mmol/L (22-30); Chloride 103 mmol/L (98-107); Glucose 128 mg/dL (74-99); LDH 1691 U/L (313-618); Magnesium 2.5 mg/dL (1.6-2.3); Non-African American GFR(CKD) >90 (>60 ml/min/1.73 sqM); Phosphorus 5.5 mg/dL (2.5-4.5); Potassium 4.7 mmol/L (3.5-5.1); Sodium 136 mmol/L (137-145); Total Bilirubin 0.7 mg/dL (0.2-1.3); Total Protein 5.6 g/dL (6.3-8.2)
[2020-11-23 05:57] LABS: C Reactive Protein 13.4 mg/dL (<1.0)
[2020-11-23] MEDS: SODIUM CHLORIDE 0.9% 1,000 ML IV SCH ×2 (06:50→15:14)
--- NOTE | 2020-11-23 07:10 | XR ---
EXAMINATION TYPE: XR chest 1V portable DATE OF EXAM: 11/23/2020 COMPARISON: 11/22/2020 HISTORY: Shortness of breath TECHNIQUE: Single frontal view of the chest is obtained. FINDINGS: Diffuse bilateral airspace disease stable. No pneumothorax. Heart size stable. Tiny pleura l effusion suspected. Limited inspiration. IMPRESSION: Stable diffuse bilateral infiltrates
[2020-11-23] MEDS: ALBUTEROL HFA INHALER INHALATION SCH ×3 (07:26→19:58)
[2020-11-23] MEDS: SYMBICORT 160-4.5 MCG INHALER INHALATION SCH ×2 (07:29→19:58)
[2020-11-23] MEDS: ALPRAZolam 0.25 MG TAB PO SCH ×3 (09:14→20:51)
[2020-11-23] MEDS: DEXAMETHASONE SOD PHOSPHATE 10 MG/ML 1 ML VIAL IV SCH ×2 (09:14→20:51)
[2020-11-23] MEDS: ASCORBIC ACID 500 MG TAB PO SCH ×2 (09:15→20:51)
[2020-11-23] MEDS: CHOLECALCIFEROL 25 MCG (1000 IU) TABLET PO SCH (09:15)
[2020-11-23] MEDS: ZINC SULFATE 220 MG CAP PO SCH (09:15)
[2020-11-23] MEDS: ENOXAPARIN 40 MG/0.4 ML SYRINGE SQ SCH ×2 (09:15→20:51)
[2020-11-23] MEDS: FLUTICASONE 50MCG/SPRAY NASAL 16GM EA NOSTRIL SCH (10:02)
[2020-11-23] MEDS: DICLOFENAC SODIUM GEL 100 GM TUBE TOPICAL SCH ×4 (10:02→21:13)
--- NOTE | 2020-11-23 11:28 | P.PN ---
Subjective Progress Note Date: 11/23/20 HISTORY OF PRESENT ILLNESS This is a pleasant 60-year-old gentleman patient of Dr. Ridge Christina. He doesn't see a physician often and does not note any medical diseases, except for obesity. He comes seen secondary to fever and chills, cough, starting December 06 first, along with muscle aches, lack of appetite and diarrhea. he was tested for call bid November 08, which required at week of reporting, subsequently was sent to emergency room secondary to worsening symptoms, including dyspnea on exertion, shortness of breath and worsening cough without hemoptysis. Fever, sh ortness of breath lingers, no treatment given to him prior to this admission. The is vaccinated, but the patient is not. He does not believe in vaccines at that time. He comes in the emergency room, with hypoxemia, with very minimal conversational dyspnea, chest x-ray, shows pulmonary infiltrate consistent with Covid pneumonia, oxygen currently is at 6 L nasal cannula, d-dimer was 0.6, LFTs are minimally elevated, 64 AST, lactic acid 2.0 sodium 132, creatinine of 0.9, glucose of 122, LDH of 888, CRP of 5.7. Urine protein noted, without hematuria or proteinuria. Covid was again retested 11/14, PCR is positive. Consult to Dr. Eduardo and pulmonary,, 11/16: Patient is currently on oxygen at 6 L nasal cannula increased to 7 L with humidified oxygen. Patient seen and followed by pulmonary medicine and has been started on Bariticinib, Decadron 6 mg daily, and prophylactic dose of Lovenox. He is reaching 1750 on incentive spirometry. Patient did have episode of diarrhea yesterday, none today and complains of decreased appetite. Patient complains of nasal congestion and Flonase added. 11/17: Patient had difficulty with oxygenation during the night and this morning transitioned to Airfo and partial nonrebreather. Pulse ox is currently running 90-92%, patient is prone. He has been afebrile, heart rate 88, blood pressure 104/63. Repeat d-dimer is elevated at 0.93. Blood sugar 167. C-reactive protein increased to 5.3. AST is 83 and ALT 51. Blood culture remains with no growth after 48 hours. Repeat chest x-ray reveals mild cardiomegaly with bilateral multifocal opacities consistent with Covid 19 infection. No significant change from most recent x-ray. Albuterol inhaler and Symbicort inhaler added. 11/18: Patient is currently on AirVo and nonrebreather with pulse ox of 93%. He's been afebrile, heart rate 85, blood pressure 103/68. Blood culture no growth at 72 hours 2 specimens. Plan to continue proning. Repeat laboratory studies ordered for tomorrow including inflammatory markers. The patient is having difficulty sleeping and melatonin added. Lovenox increased to twice daily dosing. 11/19: Patient remains in isolation. He is on AirVO plus nonrebreather with pulse ox of 93%. He has been afebrile, heart rate 85, blood pressure 122/69. Patient is found sitting in recliner and encouraged to prone when he is able to. Repeat blood work reveals WBC 12, hemoglobin 14.8, platelet count 282. D-dimer is 1.38. Other blood work is pending. Patient is continued on Decadron, vitamin supplements, Lovenox. He is on day #07/20 of Baricitinib. 11/20: Patient has been afebrile, heart rate 71, blood pressure 107/71, pulse ox 88-93% on AirVo plus nonrebreather. Patient seems to be depressed and frustrated with coarse. Noted that he started on Xanax yesterday by pulmonary. We will add and Remeron 7.5 mg at bedtime. Hemoglobin A1c came back at 6.4. Patient is encouraged to use incentive spirometry, increase activity, prone. Discussed CODE STATUS with patient and he wishes to be a full code. 11/21: Patient will pulse ox of 83% as he was on Airvo only and once nonrebreather was placed she went up to 89%. Patient is not eating much. He has been encouraged to take protein supplement, increase activity and prone but patient does not seem motivated. He was started on Remeron last night which will hopefully help with his mood and appetite. He has continued on Lovenox, dexamethasone, Baricitinib #09/19 repeat blood work reveals WBC 14.3. D-dimer increasing to 3.2. Electrolytes normal, creatinine 0.76. LDH is high at 1476, C-reactive protein stable 6.6. 11/22: Patient continues to be on airflow and nonrebreather and with minimal movement, pulse ox drops down to 82%, otherwise patient is maintaining 92-94%. One dose of IV Lasix ordered for today. Temperature max yesterday afternoon was 101.2. Heart rate in the 70s and 80s. Blood pressure 110/59. Urinalysis was negative for infection. Repeat blood work will be ordered for tomorrow. 11/23: Patient Was moved into ICU overnight. He has been on BiPAP through the night and pulse oxing 95% recently on his side, currently sitting on the edge of the bed pulse oxing 90%, with talking he drops to 83%. He is scheduled for PICC line insertion and plan to start TPN today. Patient has been afebrile, heart rate in the 60s, respiratory rate 28. WBC 12.0, hemoglobin 15, platelet count 351. Lymphocytes 11.1. D-dimer 2.46. Sodium 136, otherwise electrolytes are normal. BUN 30 creatinine 0.7. Blood sugar 128. Magnesium 2.5. Phosphorus 5.5. LDH 1691. C-reactive protein 13.4. Total protein 5.6. Blood cultures remain with no growth. Repeat chest x-ray this morning reveals stable diffuse bilateral infiltrates. Patient is on Baricitinib 10/20. Pulmonary has increased frequency of dexamethasone to twice daily and changed to IV6 mg IV twice daily. REVIEW OF SYSTEMS Constitutional: No fever, no chills, no night sweats. No weight change. Reports weakness, reports fatigue reports lethargy. Reports daytime sleepiness. EENT: No headache. No blurred vision or double vision, no loss of vision. No loss of Hearing, no ringing in the ears, no dizziness. No nasal drainage or congestion. No epistaxis. No sore throat. Lungs Reported shortness of breath, reported cough, no sputum production. No wheezing. Dyspnea with minimal exertion. dyspnea at rest. Cardiovascular: No chest pain, no lower extremity edema. No palpitations. No paroxysmal nocturnal dyspnea. No orthopnea. No lightheadedness or dizziness. No syncopal episodes. Abdominal: No abdominal pain. No nausea, vomiting. Reports diarrhea. No constipation. No bloody or tarry stools. Reports loss of appetite. Genitourinary: No dysuria, increased frequency, urgency. No urinary retention. Musculoskeletal: No myalgias. Generalized muscle weakness, no gait dysfunction, no frequent falls. No back pain. No neck pain. Integumentary: No wounds, no lesions. No rash or pruritus. No unusual bruising. Neurologic: No aphasia. No facial droop. No change in mentation. No head injury. No headache. No paresthesia. Psychiatric: No depression. No anxiety. No mood swings. Insomnia. Endocrine: No abnormal blood sugars. PHYSICAL EXAMINATION Gen: This is a 60-year-old obese male. Patient developed significant shortness of breath with minimal activity. He is resting in recliner with airvo and nonrebreather. HEENT: Head is atraumatic, normocephalic. Pupils equal, round. Sclerae is anicteric. NECK: Supple. No JVD. No lymphadenopathy. No thyromegaly. LUNGS: Diminished breath sounds. No wheezes or rhonchi. Reportedintercostal retractions. noted accessory muscle usage. HEART: Regular rate and rhythm. No murmur. ABDOMEN: obese. Soft. Bowel sounds are present. No masses. No tenderness. EXTREMITIES: No pedal edema. No calf tenderness. NEUROLOGICAL: Patient is awake, alert and oriented x3. Cranial nerves 2 through 12 are grossly intact. ASSESSMENT AND PLAN 1. Sepsis (POA) secondary to COVID-19 pneumonia, with acute hypoxemic respiratory failure, diagnosis was of 11/08/2020, symptoms started December 06 first. Patient is not vaccinated, and since being seen in consultation by pulmonary, he is on dexamethasone 6 mg IV increase frequency to twice daily, Lovenox 40 mg twice daily, continue Baricitinib 4 mg oral daily, continue albuterol inhaler, Symbicort inhaler, prone positioning. Continue O2 supplementation currently utilizing BiPAP, monitor inflammatory markers. Continue supportive care. 2. Morbid obesity BMI 38 3. Moderate protein calorie malnutrition secondary to poor oral intake. PICC line ordered to be placed today, patient will start TPN. 4. DVT prophylaxis Lovenox Increased frequency to twice daily. 5. GI prophylaxis Pepcid 6. BPH without LUTs 7. Proteinuria, unknown cause, 8. Dymetabolic syndrome, monitor for hyperglycemia, check A1c CODE Status: Full code DISCHARGE PLAN home Impression and plan of care have been directed as dictated by the signing physician. Sanam Valentine nurse practitioner acting as scribe for signing physician. Objective - Vital Signs Vital signs: Vital Signs Temp 97.4 F L 11/23/20 04:00 Pulse 67 11/23/20 09:00 Resp 26 H 11/23/20 09:00 BP 105/66 11/23/20 09:00 Pulse Ox 93 L 11/23/20 09:00 Intake & Output 11/22/20 11/23/20 11/23/20 18:59 06:59 18:59 Intake Total 1020 225 Output Total 400 603 0 Balance -400 417 225 Weight 113.398 kg Intake: IV 900 225 Sodium Chloride 0.9% 1, 900 225 000 ml @ 75 mls/hr IV . [id number] [facility] Rx#:[id number] Oral 120 Output: Urine 400 600 0 Stool 3 Other: Voiding Method Urinal Urinal - Labs CBC & Chem 7: 11/23/20 04:03 11/23/20 04:03 Labs: Abnormal Lab Results - Last 24 Hours (Table) 11/22/20 11/22/20 11/23/20 Range/Units 11:53 15:17 04:03 WBC 12.0 H (3.8-10.6) k/uL Neutrophils # 11.1 H (1.3-7.7) k/uL Lymphocytes # 0.6 L (1.0-4.8) k/uL D-Dimer (<0.60) mg/L FEU Sodium 135 L (137-145) mmol/L BUN 26 H (9-20) mg/dL Glucose 159 H (74-99) mg/dL POC Glucose (mg/dL) 144 H (75-99) mg/dL Phosphorus (2.5-4.5) mg/dL Magnesium (1.6-2.3) mg/dL Lactate Dehydrogenase (313-618) U/L C-Reactive Protein (<1.0) mg/dL Total Protein (6.3-8.2) g/dL Albumin (3.5-5.0) g/dL Triglycerides 164.0 H (0.0-149.0) mg/dL 11/23/20 11/23/20 Range/Units 04:03 04:03 WBC (3.8-10.6) k/uL Neutrophils # (1.3-7.7) k/uL Lymphocytes # (1.0-4.8) k/uL D-Dimer 2.46 H (<0.60) mg/L FEU Sodium 136 L (137-145) mmol/L BUN 30 H (9-20) mg/dL Glucose 128 H (74-99) mg/dL POC Glucose (mg/dL) (75-99) mg/dL Phosphorus 5.5 H (2.5-4.5) mg/dL Magnesium 2.5 H (1.6-2.3) mg/dL Lactate Dehydrogenase 1691 H (313-618) U/L C-Reactive Protein 13.4 H (<1.0) mg/dL Total Protein 5.6 L (6.3-8.2) g/dL Albumin 3.0 L (3.5-5.0) g/dL Triglycerides (0.0-149.0) mg/dL Microbiology - Last 24 Hours (Table) 11/21/20 15:24 Blood Culture - Preliminary Blood No Growth after 24 hours 11/21/20 15:24 Blood Culture - Preliminary Blood No Growth after 24 hours
--- NOTE | 2020-11-23 13:01 | P.PN ---
Subjective Progress Note Date: 11/23/20 Principal diagnosis: Acute hypoxic respiratory failure secondary to COVID-19 pneumonia. On today's evaluation on the 11/15/2020 patient seen in follow-up on medical surgical floor. His O2 saturations are marginal, on 6 L his pulse ox is 90%. Does not seem to be in any acute distress, no increased work of breathing. Occasional cough, nonproductive, patient was outside the window for Remdesivir. He is not vaccinated, S x-ray on admission showed significant patchy infiltrates compatible with his history of COVID-19 infection. Blood pressure has been stable, afebrile. His labs have been reviewed, d-dimer is 0.52, which is 888, CRP is 5.7. Patient is currently on Decadron 6 mg, he is on prophylactic dose Lovenox. Today's evaluation on 11/16/2020 patient seen in follow-up on medical surgical floor, his oxygen demand has increased in the last 24 hours, and his FiO2 was titrated to 10 L, his pulse ox is 91-92%, does not appear to be in any acute respiratory distress, he sitting up in the chair, is awake and alert, oriented 3, his been afebrile overnight, blood pressure is been stable, today's chest x- ray shows patchy perihilar and left lower lobe infiltrate persistence. The patient was started on on Bariticinib, Decadron 6 mg daily, and prophylactic dose of Lovenox. His appetite is poor per nursing staff, he seems to be depressed. Labs have been reviewed, his d-dimer is low at 0.50, his LDH from yesterday was 888, and CRP was 5.7. On 11/17/2020 patient seen in follow-up on the surgical floor. He is currently on Airvo 60 L and FiO2 of 94% in addition to partial nonrebreather mask and his pulse ox is around 90-92%. Patient easily desaturates with any activity. He is currently on his abdomen, he is self proning, and his oxygen does improve when he does that with a pulse ox of 95-96%, he tolerates proning fairly well. Patient is on day 3 of Bariticinib, he is also on Decadron 6 g daily, and prophylactic dose of Lovenox. His chest x-ray today shows mild cardiomegaly with bilateral multifocal opacities with no significant change from most recent chest x-ray. Today's labs have been reviewed, with blood cell count is 10, hemoglobin is 14.9, lymphocyte count is 0.7, d-dimer is 0.93, electrolytes are within normal limits, BUN is 25 creatinine 0.82. Reevaluated today on 11/18/2020, patient remains on airvo , and on nonrebreather mask, his FiO2 is at 90%, and flow is 60 L/m via airvo. Saturation is marginal, however the patient seems to be rather comfortable. His O2 saturation is in the low 90s, desaturates easily with activity. He is doing self groaning, and he does improve with self groaning hence I'm recommending titrating his FiO2 down as his oxygenation improved. BC today is relatively normal d-dimer is up a bit at 0.93. Electrolytes are normal renal profile is normal. Last chest x-ray from 11/17 continues to show bilateral multifocal opacities consistent with COVID-19 infection, not much improvement noted based on the chest x-ray. Patient was reevaluated today on 11/19/2020, remains on the regular medical fl oor, remains on Airvo plus nonrebreather mask, and his O2 saturation is in the range of 93-96%. Patient is surprisingly comfortable, sitting in a recliner, not in any distress. WBC count is 12 hemoglobin 14.8 electrolytes are normal renal profile is normal, LDH is 566 and his C-reactive protein is 8.1. Slightly bit more elevated compared to yesterday. Patient remains on the COVID-19 cocktail, remains on Lovenox at 40 mg subcu twice a day, and he is on Decadron, as well as baricitinib Reevaluated today on 11/20/2020, patient is basically about the same, not much different today from yesterday. O2 saturation remains marginal in the low 90s, patient remains on airvo at 90%, and 60 L flow. He also has a nonrebreather mask, and O2 saturation remains marginal at best. Clinically however the patient is about the same, has been adjusting his sleep positions and sometimes he notices significant improvement when he lays on the left side of the right side. Unable to go into a prone position. CBC is relatively normal his d-dimer is a bit up 1.38 his electrolytes are normal renal profile is normal, LDH is 566 C-reactive protein is a bit higher today 8.1. Pro-calcitonin is 0.11 Patient was reevaluated today on 11/21/2020, remains on airvo at maximal flow and FiO2, patient remains on nonrebreather mask, O2 saturation is in the high 80s and low 90s. Patient feels better in the right lateral decubitus position, he is basically overall about the same. He is not demonstrating any significant improvement or any worsening. Remains on all the COVID-19 cocktail, not much changed. D-dimer 3.2 today. Patient was reevaluated today on 11/23/2020, I saw him yesterday and I recommende d transfer to the ICU. Remains in the ICU, patient is on BiPAP, IPAP 12 EPAP of 6 and FiO2 is 100%. His O2 saturation is marginal in the low 90s, improves when the patient goes in the left lateral decubitus position. Hence I advised him to stay as often as he can in the left lateral decubitus position. Patient is scheduled to have a PICC line placed for TPN. Has not been eating much, and his interstitial status is poor. Patient remains on baricitinib, and he is on the rest of the COVID-19 cocktail. Today's d-dimer is 2.46. Clinically however and surprisingly the patient is feeling comfortable, does not seem to be in distress. WBC count is 12 hemoglobin is 15 electrolytes are normal renal profile is normal, inflammatory markers are high LDH of 1691 and C-reactive protein is 13.4. Pro-calcitonin remains low at 0.09. Objective - Vital Signs Vital signs: Vital Signs Temp 97.4 F L 11/23/20 04:00 Pulse 68 11/23/20 12:00 Resp 22 11/23/20 12:00 BP 108/74 11/23/20 12:00 Pulse Ox 90 L 11/23/20 12:00 Intake & Output 11/22/20 11/23/20 11/23/20 18:59 06:59 18:59 Intake Total 1020 540 Output Total 400 603 300 Balance -400 417 240 Weight 113.398 kg 113.398 kg Intake: IV 900 450 Sodium Chloride 0.9% 1, 900 450 000 ml @ 75 mls/hr IV . [id number] [facility] Rx#:[id number] Oral 120 90 Output: Urine 400 600 300 Stool 3 Other: Voiding Method Urinal Urinal Urinal - Exam Gen: This is a 60-year-old obese male, not in distress on BiPAP as noted earlier. HEENT: Head is atraumatic, normocephalic. [place], EOMI, nonicteric, no neck masses, no rigidity. NECK: Supple. No JVD. No lymphadenopathy. No thyromegaly. LUNGS: Crackles at the bases persist, no rhonchi no wheezes. HEART: Regular rate and rhythm. No murmur. ABDOMEN: obese. Soft. Bowel sounds are present. No masses. No tenderness. EXTREMITIES: No pedal edema. No calf tenderness. NEUROLOGICAL:Alert and oriented 3 no gross focal deficits. Psychiatric: Normal mood, affect and normal mental status examination. Skin: No rashes. - Labs CBC & Chem 7: 11/23/20 04:03 11/23/20 04:03 Labs: Abnormal Lab Results - Last 24 Hours (Table) 11/22/20 11/22/20 11/23/20 Range/Units 11:53 15:17 04:03 WBC 12.0 H (3.8-10.6) k/uL Neutrophils # 11.1 H (1.3-7.7) k/uL Lymphocytes # 0.6 L (1.0-4.8) k/uL D-Dimer (<0.60) mg/L FEU Sodium (137-145) mmol/L BUN (9-20) mg/dL Glucose (74-99) mg/dL POC Glucose (mg/dL) 144 H (75-99) mg/dL Phosphorus (2.5-4.5) mg/dL Magnesium (1.6-2.3) mg/dL Lactate Dehydrogenase (313-618) U/L C-Reactive Protein (<1.0) mg/dL Total Protein (6.3-8.2) g/dL Albumin (3.5-5.0) g/dL Triglycerides 164.0 H (0.0-149.0) mg/dL 11/23/20 11/23/20 Range/Units 04:03 04:03 WBC (3.8-10.6) k/uL Neutrophils # (1.3-7.7) k/uL Lymphocytes # (1.0-4.8) k/uL D-Dimer 2.46 H (<0.60) mg/L FEU Sodium 136 L (137-145) mmol/L BUN 30 H (9-20) mg/dL Glucose 128 H (74-99) mg/dL POC Glucose (mg/dL) (75-99) mg/dL Phosphorus 5.5 H (2.5-4.5) mg/dL Magnesium 2.5 H (1.6-2.3) mg/dL Lactate Dehydrogenase 1691 H (313-618) U/L C-Reactive Protein 13.4 H (<1.0) mg/dL Total Protein 5.6 L (6.3-8.2) g/dL Albumin 3.0 L (3.5-5.0) g/dL Triglycerides (0.0-149.0) mg/dL Microbiology - Last 24 Hours (Table) 11/21/20 15:24 Blood Culture - Preliminary Blood No Growth after 24 hours 11/21/20 15:24 Blood Culture - Preliminary Blood No Growth after 24 hours Assessment and Plan Assessment: Impression: Acute hypoxic referred failure secondary to COVID-19 pneumonia patient is not vaccinated, started on baricitinib on 11/15, patient was out of the window for remdesivir. Patient is also on Decadron, 6 mg IV push twice a day. and on Loveno 40 mg subcu twice a day. Obesity with BMI of 38. Increased inflammatory markers secondary to COVID-19 pneumonia/infection. Recommendation: Continue to monitor the patient in the ICU. Continue patient on BiPAP, and titrate FiO2 accordingly. Continue COVID-19 cocktail. Continue Decadron and Lovenox. Left lateral decubitus position and pronate if possible. Continue baricitinib, total length of treatment this 14 days Arrange for a PICC line and TPN today. Prognosis remains relatively guarded Time with Patient: Less than 30
[2020-11-23] MEDS: BARICITINIB 2 MG TABLET PO SCH (15:15)
--- NOTE | 2020-11-23 15:16 | XR ---
EXAMINATION TYPE: XR chest 1V confirm line [facility] DATE OF EXAM: 11/23/2020 COMPARISON: 11/23/2020 HISTORY: PICC line placement TECHNIQUE: Single frontal view of the chest is obtained. FINDINGS: Diffuse bilateral airspace disease stable. No pneumothorax. Heart size stable. Tiny pleura l effusion suspected. Limited inspiration. Left-sided PICC line with tip overlying SVC. IMPRESSION: Diffuse interstitial infiltrate stable.
--- NOTE | 2020-11-23 15:17 | IR ---
EXAMINATION TYPE: IR cvc insert >=5 years DATE OF EXAM: 11/23/2020 COMPARISON: NONE HISTORY: Needs long-term intravenous access for total parenteral nutrition FINDINGS: Maximal barrier technique was utilized. Hand hygiene obtained with soap and water and alco hol-based hand rub. The skin overlying the left basilic vein was localized with ultrasound and noted to be compressible and patent by ultrasound. [facility] Sterile technique utilized with the ultrasound machine. The skin overlying was prepped an d draped and Lidocaine used for local anesthesia. A skin louis was made with a scalpel. Access was g ained to the vein under direct ultrasound guidance with a 21-gauge needle and a 0.018 inch wire was a dvanced. Access site was dilated with a peel-away sheath and the catheter tailored to length. Neeta ter advanced centrally and a post procedure chest x-ray verified placement with tip at the superior v donaldo cava. Catheter was fixed to the skin and a sterile dressing placed. Hemostasis achieved and the catheter was aspirated and flushed with sterile saline. The patient remained in stable condition. IMPRESSION: STATUS POST ULTRASOUND GUIDED PICC LINE PLACEMENT, READY FOR USE. THIS PROCEDURE WAS PER FORMED BY THE UNDERSIGNED.
[2020-11-23] MEDS ORDERED: [UNRECOGNIZED DRUG - REMARK] IV SCH ×7 (16:30)
[2020-11-23] MEDS ORDERED: FAT EMULSION 20% 250 ML IV SCH (18:00)
[2020-11-23] MEDS: MELATONIN 3 MG TABLET PO SCH (20:52)
[2020-11-23 23:37] LABS: Glucose,Whole Blood 206 mg/dL (75-99)
[2020-11-23] MEDS: INSULIN ASPART (NovoLOG) 100 UNIT/ML VIAL SQ SCH (23:41)
[2020-11-24 05:42] LABS: Glucose,Whole Blood 150 mg/dL (75-99)
[2020-11-24] MEDS: INSULIN ASPART (NovoLOG) 100 UNIT/ML VIAL SQ SCH ×4 (05:52→19:57)
[2020-11-24 05:56] LABS: Basophils % (A) 0 %; Eosinophils % (A) 0 %; HCT 43.3 % (39.0-53.0); HGB 14.5 gm/dL (13.0-17.5); Lymphocytes # (A) 0.5 k/uL (1.0-4.8); Lymphocytes % (A) 3 %; MCH 29.4 pg (25.0-35.0); MCHC 33.4 g/dL (31.0-37.0); MCV 88.1 fL (80.0-100.0); Mean Platelet Volume 8.1; Monocytes # (A) 0.5 k/uL (0-1.0); Monocytes % (A) 3 %; Neutrophils # (A) 15.7 k/uL (1.3-7.7); Neutrophils % (A) 94 %; Platelet Count 340 k/uL (150-450); RBC 4.92 m/uL (4.30-5.90); RDW 13.1 % (11.5-15.5); WBC 16.7 k/uL (3.8-10.6)
[2020-11-24 05:58] LABS: ALT 38 U/L (4-49); AST 36 U/L (17-59); African American GFR (CKD) >90 (>60 ml/min/1.73 sqM); Albumin 2.9 g/dL (3.5-5.0); Alkaline Phosphatase 83 U/L (38-126); Anion Gap 5 mmol/L; Blood Urea Nitrogen 23 mg/dL (9-20); Calcium 8.7 mg/dL (8.4-10.2); Carbon Dioxide 26 mmol/L (22-30); Chloride 105 mmol/L (98-107); Glucose 160 mg/dL (74-99); Magnesium 2.4 mg/dL (1.6-2.3); Non-African American GFR(CKD) >90 (>60 ml/min/1.73 sqM); Phosphorus 3.9 mg/dL (2.5-4.5); Potassium 4.4 mmol/L (3.5-5.1); Sodium 136 mmol/L (137-145); Total Bilirubin 0.6 mg/dL (0.2-1.3); Total Protein 5.4 g/dL (6.3-8.2)
--- NOTE | 2020-11-24 07:28 | XR ---
EXAMINATION TYPE: XR chest 1V portable DATE OF EXAM: 11/24/2020 COMPARISON: 11/23/2020 HISTORY: 60 years Male. STUDY INDICATION GIVEN: shortness of breath . TECHNIQUE: Portable chest radial IMPRESSION: Left upper extremity PICC stable in position the tip is in the distal superior vena cava. Stable left greater than right airspace opacities and moderate-severe pulmonary edema. Stable mildly enlarged cardiac silhouette. No pneumothorax or pleural effusion. Osseous structures are stable.
[2020-11-24] MEDS: SYMBICORT 160-4.5 MCG INHALER INHALATION SCH ×2 (08:25→19:58)
[2020-11-24] MEDS: ALBUTEROL HFA INHALER INHALATION SCH ×3 (08:25→19:58)
[2020-11-24] MEDS: DEXAMETHASONE SOD PHOSPHATE 10 MG/ML 1 ML VIAL IV SCH ×2 (08:40→20:40)
[2020-11-24] MEDS: CHOLECALCIFEROL 25 MCG (1000 IU) TABLET PO SCH (08:41)
[2020-11-24] MEDS: ZINC SULFATE 220 MG CAP PO SCH (08:41)
[2020-11-24] MEDS: ENOXAPARIN 40 MG/0.4 ML SYRINGE SQ SCH ×2 (08:41→20:41)
[2020-11-24] MEDS: ALPRAZolam 0.25 MG TAB PO SCH ×3 (08:41→20:41)
[2020-11-24] MEDS: ASCORBIC ACID 500 MG TAB PO SCH ×2 (08:41→20:40)
[2020-11-24] MEDS: DICLOFENAC SODIUM GEL 100 GM TUBE TOPICAL SCH ×4 (08:59→20:44)
[2020-11-24] MEDS: FLUTICASONE 50MCG/SPRAY NASAL 16GM EA NOSTRIL SCH (09:03)
--- NOTE | 2020-11-24 10:20 | P.PN ---
Subjective Progress Note Date: 11/24/20 Principal diagnosis: sepsis, COVID-19 pneumonitis, acute respiratory failure, proteinuria and dymetabolic syndrome. HISTORY OF PRESENT ILLNESS This is a pleasant 60-year-old gentleman patient of Dr. Ridge Christina. He doesn't see a physician often and does not note any medical diseases, except for obesity. He comes seen secondary to fever and chills, cough, starting December 06 first, along with muscle aches, lack of appetite and diarrhea. he was tested for call bid November 08, which required at week of reporting, subsequently was sent to emergency room secondary to worsening symptoms, including dyspnea on exertion, shortness of breath and worsening cough without hemoptysis. Fever, shortness of breath lingers, no treatment given to him prior to this admission. The is vaccinated, but the patient is not. He does not believe in vaccines at that time. He comes in the emergency room, with hypoxemia, with very minimal conversational dyspnea, chest x-ray, shows pulmonary infiltrate consistent with Covid pneumonia, oxygen currently is at 6 L nasal cannula, d-dimer was 0.6, LFTs are minimally elevated, 64 AST, lactic acid 2.0 sodium 132, creatinine of 0.9, glucose of 122, LDH of 888, CRP of 5.7. Urine protein noted, without hematuria or proteinuria. Covid was again retested 11/14, PCR is positive. Consult to Dr. Eduardo and pulmonary,, 11/16: Patient is currently on oxygen at 6 L nasal cannula increased to 7 L with humidified oxygen. Patient seen and followed by pulmonary medicine and has been started on Bariticinib, Decadron 6 mg daily, and prophylactic dose of Lovenox. He is reaching 1750 on incentive spirometry. Patient did have episode of diarrhea yesterday, none today and complains of decreased appetite. Patient complains of nasal congestion and Flonase added. 11/17: Patient had difficulty with oxygenation during the night and this morning transitioned to Airfo and partial nonrebreather. Pulse ox is currently running 90-92%, patient is prone. He has been afebrile, heart rate 88, blood pressure 104/63. Repeat d-dimer is elevated at 0.93. Blood sugar 167. C-reactive protein increased to 5.3. AST is 83 and ALT 51. Blood culture remains with no growth after 48 hours. Repeat chest x-ray reveals mild cardiomegaly with bilateral multifocal opacities consistent with Covid 19 infection. No signifi cant change from most recent x-ray. Albuterol inhaler and Symbicort inhaler added. 11/18: Patient is currently on AirVo and nonrebreather with pulse ox of 93%. He's been afebrile, heart rate 85, blood pressure 103/68. Blood culture no growth at 72 hours 2 specimens. Plan to continue proning. Repeat laboratory studies ordered for tomorrow including inflammatory markers. The patient is having difficulty sleeping and melatonin added. Lovenox increased to twice daily dosing. 11/19: Patient remains in isolation. He is on AirVO plus nonrebreather with pulse ox of 93%. He has been afebrile, heart rate 85, blood pressure 122/69. Patient is found sitting in recliner and encouraged to prone when he is able to. Repeat blood work reveals WBC 12, hemoglobin 14.8, platelet count 282. D-dimer is 1.38. Other blood work is pending. Patient is continued on Decadron, vitamin supplements, Lovenox. He is on day #07/20 of Baricitinib. 11/20: Patient has been afebrile, heart rate 71, blood pressure 107/71, pulse ox 88-93% on AirVo plus nonrebreather. Patient seems to be depressed and frustr ated with coarse. Noted that he started on Xanax yesterday by pulmonary. We will add and Remeron 7.5 mg at bedtime. Hemoglobin A1c came back at 6.4. Patient is encouraged to use incentive spirometry, increase activity, prone. Discussed CODE STATUS with patient and he wishes to be a full code. 11/21: Patient will pulse ox of 83% as he was on Airvo only and once nonrebreather was placed she went up to 89%. Patient is not eating much. He has been encouraged to take protein supplement, increase activity and prone but patient does not seem motivated. He was started on Remeron last night which will hopefully help with his mood and appetite. He has continued on Lovenox, dexamethasone, Baricitinib #09/19 repeat blood work reveals WBC 14.3. D-dimer increasing to 3.2. Electrolytes normal, creatinine 0.76. LDH is high at 1476, C-reactive protein stable 6.6. 11/22: Patient continues to be on airflow and nonrebreather and with minimal movement, pulse ox drops down to 82%, otherwise patient is maintaining 92-94%. One dose of IV Lasix ordered for today. Temperature max yesterday afternoon was 101.2. Heart rate in the 70s and 80s. Blood pressure 110/59. Urinalysis was negative for infection. Repeat blood work will be ordered for tomorrow. 11/23: Patient Was moved into ICU overnight. He has been on BiPAP through the night and pulse oxing 95% recently on his side, currently sitting on the edge of the bed pulse oxing 90%, with talking he drops to 83%. He is scheduled for PICC line insertion and plan to start TPN today. Patient has been afebrile, heart rate in the 60s, respiratory rate 28. WBC 12.0, hemoglobin 15, platelet count 351. Lymphocytes 11.1. D-dimer 2.46. Sodium 136, otherwise electrolytes are normal. BUN 30 creatinine 0.7. Blood sugar 128. Magnesium 2.5. Phosphorus 5.5. LDH 1691. C-reactive protein 13.4. Total protein 5.6. Blood cultures remain with no growth. Repeat chest x-ray this morning reveals stable diffuse bilateral infiltrates. Patient is on Baricitinib 10/20. Pulmonary has increased frequency of dexamethasone to twice daily and changed to IV6 mg IV twice daily. : Patient remain in the ICU, still on BiPAP with pulse ox is improving at this point. Continue dexamethasone and Baricitinib 11/20, patient had full meal this morning his TPN will be suspended after today. Patient will remain in the ICU at least for the next 48 hours. REVIEW OF SYSTEMS Constitutional: No fever, no chills, no night sweats. No weight change. Reports weakness, reports fatigue reports lethargy. Reports daytime sleepiness. EENT: No headache. No blurred vision or double vision, no loss of vision. No loss of Hearing, no ringing in the ears, no dizziness. No nasal drainage or congestion. No epistaxis. No sore throat. Lungs Reported shortness of breath, reported cough, no sputum production. No wheezing. Dyspnea with minimal exertion. dyspnea at rest. Cardiovascular: No chest pain, no lower extremity edema. No palpitations. No paroxysmal nocturnal dyspnea. No orthopnea. No lightheadedness or dizziness. No syncopal episodes. Abdominal: No abdominal pain. No nausea, vomiting. Reports diarrhea. No constipation. No bloody or tarry stools. Reports loss of appetite. Genitourinary: No dysuria, increased frequency, urgency. No urinary retention. Musculoskeletal: No myalgias. Generalized muscle weakness, no gait dysfunction, no frequent falls. No back pain. No neck pain. Integumentary: No wounds, no lesions. No rash or pruritus. No unusual bruising. Neurologic: No aphasia. No facial droop. No change in mentation. No head injury. No headache. No paresthesia. Psychiatric: No depression. No anxiety. No mood swings. Insomnia. Endocrine: No abnormal blood sugars. PHYSICAL EXAMINATION Gen: This is a 60-year-old obese male. Patient developed significant shortness of breath with minimal activity. He is resting in recliner with airvo and nonrebreather. HEENT: Head is atraumatic, normocephalic. Pupils equal, round. Sclerae is anicteric. NECK: Supple. No JVD. No lymphadenopathy. No thyromegaly. LUNGS: Diminished breath sounds. No wheezes or rhonchi. Reportedintercostal retractions. noted accessory muscle usage. HEART: Regular rate and rhythm. No murmur. ABDOMEN: obese. Soft. Bowel sounds are present. No masses. No tenderness. EXTREMITIES: No pedal edema. No calf tenderness. NEUROLOGICAL: Patient is awake, alert and oriented x3. Cranial nerves 2 through 12 are grossly intact. ASSESSMENT AND PLAN 1. Sepsis (POA) secondary to COVID-19 pneumonia, with acute hypoxemic respiratory failure, diagnosis was of 11/08/2020, symptoms started December 06 first. Patient is not vaccinated, and since being seen in consultation by pulmonary, he is on dexamethasone 6 mg IV increase frequency to twice daily, Lovenox 40 mg twice daily, continue Baricitinib 4 mg oral daily he is on dose 9 out of 14, continue albuterol inhaler, Symbicort inhaler, prone positioning. Continue O2 supplementation currently utilizing BiPAP, monitor inflammatory markers. still have the intensity of ICU at this point specially been on BiPAP still seen pulmonary regular basis. 2. Morbid obesity BMI 38 3. Moderate protein calorie malnutrition secondary to poor oral intake. PICC line ordered to be placed today, patient will start TPN.patient was able to tolerate full meal we will suspend TPN by the end of day. 4. DVT prophylaxis Lovenox Increased frequency to twice daily. 5. GI prophylaxis Pepcid 6. BPH without LUTs 7. Proteinuria, unknown cause, 8. Dymetabolic syndrome, monitor for hyperglycemia, check A1c CODE Status: Full code DISCHARGE PLAN home Prognosis: Still guarded. Objective - Vital Signs Vital signs: Vital Signs Temp 98.8 F 11/24/20 08:00 Pulse 71 11/24/20 10:00 Resp 23 11/24/20 10:00 BP 111/60 11/24/20 10:00 Pulse Ox 86 L 11/24/20 10:00 Intake & Output 11/23/20 11/24/20 11/24/20 18:59 06:59 18:59 Intake Total 1170 1038 300 Output Total 600 925 0 Balance 570 113 300 Weight 113.398 kg 108.8 kg Intake: IV 840 1038 300 Fat Emulsion 20% 250 ml @ 168 0 21 mls/hr IV MoWeFr@1800 [facility] Rx#:[id number] Mvi, Adult No.4 with Vit 330 120 K 10 ml Trace (Conc-1Ml/ Dose) 1 ml Sodium Acetate 30 meq Sodium Chloride 4Meq/ml Vial 20 meq Potassium Chloride 10 meq Calcium Gluconate 1 gm In Amino Acids 5 %/ Dextrose 20 % 1,000 ml @ 85 mls/hr IV .BY DURATION [facility] Rx#:[id number] Sodium Chloride 0.9% 1, 840 540 180 000 ml @ 75 mls/hr IV . [id number] [facility] Rx#:[id number] Oral 330 Output: Urine 600 925 0 Other: Voiding Method Urinal Urinal Urinal # Voids 0 0 - Labs CBC & Chem 7: 11/24/20 04:48 11/24/20 04:48 Labs: Abnormal Lab Results - Last 24 Hours (Table) 11/23/20 11/24/20 11/24/20 Range/Units 23:35 04:48 04:48 WBC 16.7 H (3.8-10.6) k/uL Neutrophils # 15.7 H (1.3-7.7) k/uL Lymphocytes # 0.5 L (1.0-4.8) k/uL Sodium 136 L (137-145) mmol/L BUN 23 H (9-20) mg/dL Glucose 160 H (74-99) mg/dL POC Glucose (mg/dL) 206 H (75-99) mg/dL Magnesium 2.4 H (1.6-2.3) mg/dL Total Protein 5.4 L (6.3-8.2) g/dL Albumin 2.9 L (3.5-5.0) g/dL 11/24/20 Range/Units 05:40 WBC (3.8-10.6) k/uL Neutrophils # (1.3-7.7) k/uL Lymphocytes # (1.0-4.8) k/uL Sodium (137-145) mmol/L BUN (9-20) mg/dL Glucose (74-99) mg/dL POC Glucose (mg/dL) 150 H (75-99) mg/dL Magnesium (1.6-2.3) mg/dL Total Protein (6.3-8.2) g/dL Albumin (3.5-5.0) g/dL Microbiology - Last 24 Hours (Table) 11/21/20 15:24 Blood Culture - Preliminary Blood No Growth after 48 hours 11/21/20 15:24 Blood Culture - Preliminary Blood No Growth after 48 hours
[2020-11-24 11:23] LABS: Glucose,Whole Blood 166 mg/dL (75-99)
--- NOTE | 2020-11-24 12:30 | P.PN ---
Subjective Progress Note Date: 11/24/20 Principal diagnosis: Acute hypoxic respiratory failure secondary to COVID-19 pneumonia. On today's evaluation on the 11/15/2020 patient seen in follow-up on medical surgical floor. His O2 saturations are marginal, on 6 L his pulse ox is 90%. Does not seem to be in any acute distress, no increased work of breathing. Occasional cough, nonproductive, patient was outside the window for Remdesivir. He is not vaccinated, S x-ray on admission showed significant patchy infiltrates compatible with his history of COVID-19 infection. Blood pressure has been stable, afebrile. His labs have been reviewed, d-dimer is 0.52, which is 888, CRP is 5.7. Patient is currently on Decadron 6 mg, he is on prophylactic dose Lovenox. Today's evaluation on 11/16/2020 patient seen in follow-up on medical surgical floor, his oxygen demand has increased in the last 24 hours, and his FiO2 was titrated to 10 L, his pulse ox is 91-92%, does not appear to be in any acute respiratory distress, he sitting up in the chair, is awake and alert, oriented 3, his been afebrile overnight, blood pressure is been stable, today's chest x- ray shows patchy perihilar and left lower lobe infiltrate persistence. The patient was started on on Bariticinib, Decadron 6 mg daily, and prophylactic dose of Lovenox. His appetite is poor per nursing staff, he seems to be depressed. Labs have been reviewed, his d-dimer is low at 0.50, his LDH from yesterday was 888, and CRP was 5.7. On 11/17/2020 patient seen in follow-up on the surgical floor. He is currently on Airvo 60 L and FiO2 of 94% in addition to partial nonrebreather mask and his pulse ox is around 90-92%. Patient easily desaturates with any activity. He is currently on his abdomen, he is self proning, and his oxygen does improve when he does that with a pulse ox of 95-96%, he tolerates proning fairly well. Patient is on day 3 of Bariticinib, he is also on Decadron 6 g daily, and prophylactic dose of Lovenox. His chest x-ray today shows mild cardiomegaly with bilateral multifocal opacities with no significant change from most recent chest x-ray. Today's labs have been reviewed, with blood cell count is 10, hemoglobin is 14.9, lymphocyte count is 0.7, d-dimer is 0.93, electrolytes are within normal limits, BUN is 25 creatinine 0.82. Reevaluated today on 11/18/2020, patient remains on airvo , and on nonrebreather mask, his FiO2 is at 90%, and flow is 60 L/m via airvo. Saturation is marginal, however the patient seems to be rather comfortable. His O2 saturation is in the low 90s, desaturates easily with activity. He is doing self groaning, and he does improve with self groaning hence I'm recommending titrating his FiO2 down as his oxygenation improved. BC today is relatively normal d-dimer is up a bit at 0.93. Electrolytes are normal renal profile is normal. Last chest x-ray from 11/17 continues to show bilateral multifocal opacities consistent with COVID-19 infection, not much improvement noted based on the chest x-ray. Patient was reevaluated today on 11/19/2020, remains on the regular medical fl oor, remains on Airvo plus nonrebreather mask, and his O2 saturation is in the range of 93-96%. Patient is surprisingly comfortable, sitting in a recliner, not in any distress. WBC count is 12 hemoglobin 14.8 electrolytes are normal renal profile is normal, LDH is 566 and his C-reactive protein is 8.1. Slightly bit more elevated compared to yesterday. Patient remains on the COVID-19 cocktail, remains on Lovenox at 40 mg subcu twice a day, and he is on Decadron, as well as baricitinib Reevaluated today on 11/20/2020, patient is basically about the same, not much different today from yesterday. O2 saturation remains marginal in the low 90s, patient remains on airvo at 90%, and 60 L flow. He also has a nonrebreather mask, and O2 saturation remains marginal at best. Clinically however the patient is about the same, has been adjusting his sleep positions and sometimes he notices significant improvement when he lays on the left side of the right side. Unable to go into a prone position. CBC is relatively normal his d-dimer is a bit up 1.38 his electrolytes are normal renal profile is normal, LDH is 566 C-reactive protein is a bit higher today 8.1. Pro-calcitonin is 0.11 Patient was reevaluated today on 11/21/2020, remains on airvo at maximal flow and FiO2, patient remains on nonrebreather mask, O2 saturation is in the high 80s and low 90s. Patient feels better in the right lateral decubitus position, he is basically overall about the same. He is not demonstrating any significant improvement or any worsening. Remains on all the COVID-19 cocktail, not much changed. D-dimer 3.2 today. Patient was reevaluated today on 11/23/2020, I saw him yesterday and I recommende d transfer to the ICU. Remains in the ICU, patient is on BiPAP, IPAP 12 EPAP of 6 and FiO2 is 100%. His O2 saturation is marginal in the low 90s, improves when the patient goes in the left lateral decubitus position. Hence I advised him to stay as often as he can in the left lateral decubitus position. Patient is scheduled to have a PICC line placed for TPN. Has not been eating much, and his interstitial status is poor. Patient remains on baricitinib, and he is on the rest of the COVID-19 cocktail. Today's d-dimer is 2.46. Clinically however and surprisingly the patient is feeling comfortable, does not seem to be in distress. WBC count is 12 hemoglobin is 15 electrolytes are normal renal profile is normal, inflammatory markers are high LDH of 1691 and C-reactive protein is 13.4. Pro-calcitonin remains low at 0.09. Reevaluated today on 11/24/2020, patient remains in the ICU, transitioned yesterday from BiPAP to airvo at 60 L flow, and 90% FiO2. His O2 saturation is marginal, patient did use BiPAP last night. He went off BiPAP at 5 AM this morning. Remains on IV fluid at 75 mL/h, he is also on TPN via PICC line. Overall the patient is holding nicely, remains on Decadron twice a day, is also on baricitinib seems to be tolerating both well. Patient is considered marginal at best, I'm not seeing significant improvement and I'm not seeing worsening at this point. WBC count today is noted to be high at 16.7. Electrolytes are normal renal profile is normal, his last pro-calcitonin 2 days ago was 0.09, relatively unremarkable. Objective - Vital Signs Vital signs: Vital Signs Temp 98.8 F 11/24/20 08:00 Pulse 66 11/24/20 11:00 Resp 23 11/24/20 11:00 BP 117/63 11/24/20 11:00 Pulse Ox 90 L 11/24/20 11:00 Intake & Output 11/23/20 11/24/20 11/24/20 18:59 06:59 18:59 Intake Total 1170 1038 450 Output Total 600 925 0 Balance 570 113 450 Weight 113.398 kg 108.8 kg Intake: IV 840 1038 450 Fat Emulsion 20% 250 ml @ 168 0 21 mls/hr IV MoWeFr@1800 [facility] Rx#:[id number] Mvi, Adult No.4 with Vit 330 180 K 10 ml Trace (Conc-1Ml/ Dose) 1 ml Sodium Acetate 30 meq Sodium Chloride 4Meq/ml Vial 20 meq Potassium Chloride 10 meq Calcium Gluconate 1 gm In Amino Acids 5 %/ Dextrose 20 % 1,000 ml @ 85 mls/hr IV .BY DURATION [facility] Rx#:[id number] Sodium Chloride 0.9% 1, 840 540 270 000 ml @ 75 mls/hr IV . [id number] [facility] Rx#:[id number] Oral 330 Output: Urine 600 925 0 Other: Voiding Method Urinal Urinal Urinal # Voids 0 0 - Exam Gen: This is a 60-year-old obese male, not in distress on airvo HEENT: Head is atraumatic, normocephalic. [place], EOMI, nonicteric, no neck masses, no rigidity. NECK: Supple. No JVD. No lymphadenopathy. No thyromegaly. LUNGS: Crackles at the bases persist, no rhonchi no wheezes. HEART: Regular rate and rhythm. No murmur. ABDOMEN: obese. Soft. Bowel sounds are present. No masses. No tenderness. EXTREMITIES: No pedal edema. No calf tenderness. NEUROLOGICAL:Alert and oriented 3 no gross focal deficits. Psychiatric: Normal mood, affect and normal mental status examination. Skin: No rashes. - Labs CBC & Chem 7: 11/24/20 04:48 11/24/20 04:48 Labs: Abnormal Lab Results - Last 24 Hours (Table) 11/23/20 11/24/20 11/24/20 Range/Units 23:35 04:48 04:48 WBC 16.7 H (3.8-10.6) k/uL Neutrophils # 15.7 H (1.3-7.7) k/uL Lymphocytes # 0.5 L (1.0-4.8) k/uL Sodium 136 L (137-145) mmol/L BUN 23 H (9-20) mg/dL Glucose 160 H (74-99) mg/dL POC Glucose (mg/dL) 206 H (75-99) mg/dL Magnesium 2.4 H (1.6-2.3) mg/dL Total Protein 5.4 L (6.3-8.2) g/dL Albumin 2.9 L (3.5-5.0) g/dL 11/24/20 11/24/20 Range/Units 05:40 11:22 WBC (3.8-10.6) k/uL Neutrophils # (1.3-7.7) k/uL Lymphocytes # (1.0-4.8) k/uL Sodium (137-145) mmol/L BUN (9-20) mg/dL Glucose (74-99) mg/dL POC Glucose (mg/dL) 150 H 166 H (75-99) mg/dL Magnesium (1.6-2.3) mg/dL Total Protein (6.3-8.2) g/dL Albumin (3.5-5.0) g/dL Microbiology - Last 24 Hours (Table) 11/21/20 15:24 Blood Culture - Preliminary Blood No Growth after 48 hours 11/21/20 15:24 Blood Culture - Preliminary Blood No Growth after 48 hours Assessment and Plan Assessment: Impression: Acute hypoxic referred failure secondary to COVID-19 pneumonia patient is not vaccinated, started on baricitinib on 11/15, patient was out of the window for remdesivir. Patient is also on Decadron, 6 mg IV push twice a day. and on Loveno 40 mg subcu twice a day. Obesity with BMI of 38. Increased inflammatory markers secondary to COVID-19 pneumonia/infection. Recommendation: Continue to monitor the patient in the ICU. Titrate oxygen accordingly. Continue COVID-19 cocktail. Continue Decadron and Lovenox. Position patient intermittently to attain improvement in his O2 saturation. Continue baricitinib, total length of treatment this 14 days Continue TPN via PICC line Prognosis remains relatively guarded, we'll continue to follow and we'll continue to monitor in the ICU Time with Patient: Less than 30
[2020-11-24] MEDS: SODIUM CHLORIDE 0.9% 1,000 ML IV SCH (14:29)
[2020-11-24] MEDS: BARICITINIB 2 MG TABLET PO SCH (15:06)
[2020-11-24] MEDS ORDERED: 1: MVI, ADULT NO.4 WITH VIT K 10 ML, TRACE (CONC-1ML/DOSE) 1 ML, SODIUM ACETATE 30 MEQ, IV SCH ×7 (16:30)
[2020-11-24 16:58] LABS: Glucose,Whole Blood 164 mg/dL (75-99)
[2020-11-24 19:39] LABS: Glucose,Whole Blood 126 mg/dL (75-99)
[2020-11-24] MEDS: 1: MVI, ADULT NO.4 WITH VIT K 10 ML, TRACE (CONC-1ML/DOSE) 1 ML, SODIUM ACETATE 30 MEQ, IV SCH ×7 (20:39)
[2020-11-24] MEDS: MELATONIN 3 MG TABLET PO SCH (20:41)
[2020-11-24] MEDS: MIRTAZAPINE 15 MG TAB PO SCH (20:41)
[2020-11-25 04:21] LABS: Basophils % (A) 0 %; Eosinophils # (A) 0.2 k/uL (0-0.7); Eosinophils % (A) 1 %; HCT 44.5 % (39.0-53.0); HGB 14.3 gm/dL (13.0-17.5); Lymphocytes # (A) 0.4 k/uL (1.0-4.8); Lymphocytes % (A) 2 %; MCH 28.6 pg (25.0-35.0); MCHC 32.2 g/dL (31.0-37.0); MCV 88.7 fL (80.0-100.0); Mean Platelet Volume 8.2; Monocytes # (A) 0.4 k/uL (0-1.0); Monocytes % (A) 3 %; Neutrophils # (A) 14.1 k/uL (1.3-7.7); Neutrophils % (A) 93 %; Platelet Count 261 k/uL (150-450); RBC 5.01 m/uL (4.30-5.90); RDW 13.1 % (11.5-15.5); WBC 15.1 k/uL (3.8-10.6)
[2020-11-25 04:52] LABS: ALT 39 U/L (4-49); AST 43 U/L (17-59); African American GFR (CKD) >90 (>60 ml/min/1.73 sqM); Albumin 2.7 g/dL (3.5-5.0); Alkaline Phosphatase 91 U/L (38-126); Anion Gap 4 mmol/L; Blood Urea Nitrogen 23 mg/dL (9-20); C Reactive Protein 3.6 mg/dL (<1.0); Calcium 8.5 mg/dL (8.4-10.2); Carbon Dioxide 25 mmol/L (22-30); Chloride 105 mmol/L (98-107); Glucose 206 mg/dL (74-99); Magnesium 2.3 mg/dL (1.6-2.3); Non-African American GFR(CKD) >90 (>60 ml/min/1.73 sqM); Phosphorus 3.1 mg/dL (2.5-4.5); Potassium 4.5 mmol/L (3.5-5.1); Sodium 134 mmol/L (137-145); Total Bilirubin 0.5 mg/dL (0.2-1.3); Total Protein 5.3 g/dL (6.3-8.2)
[2020-11-25 06:20] LABS: Glucose,Whole Blood 165 mg/dL (75-99)
[2020-11-25] MEDS: SODIUM CHLORIDE 0.9% 1,000 ML IV SCH ×2 (06:41→16:54)
[2020-11-25] MEDS: SODIUM CHLORIDE 0.65% NASAL SPRAY 44 ML BTL NASAL PRN (06:42)
[2020-11-25] MEDS: INSULIN ASPART (NovoLOG) 100 UNIT/ML VIAL SQ SCH ×4 (06:43→21:00)
[2020-11-25] MEDS: ALBUTEROL HFA INHALER INHALATION SCH ×3 (07:59→19:04)
[2020-11-25] MEDS: SYMBICORT 160-4.5 MCG INHALER INHALATION SCH ×2 (08:00→19:04)
[2020-11-25] MEDS: ENOXAPARIN 40 MG/0.4 ML SYRINGE SQ SCH ×2 (08:26→20:59)
[2020-11-25] MEDS: DEXAMETHASONE SOD PHOSPHATE 10 MG/ML 1 ML VIAL IV SCH ×2 (08:26→21:00)
[2020-11-25] MEDS: ALPRAZolam 0.25 MG TAB PO SCH ×3 (08:26→20:59)
[2020-11-25] MEDS: CHOLECALCIFEROL 25 MCG (1000 IU) TABLET PO SCH (08:26)
[2020-11-25] MEDS: DICLOFENAC SODIUM GEL 100 GM TUBE TOPICAL SCH ×4 (08:26→20:32)
[2020-11-25] MEDS: ZINC SULFATE 220 MG CAP PO SCH (08:26)
[2020-11-25] MEDS: ASCORBIC ACID 500 MG TAB PO SCH ×2 (08:26→21:00)
[2020-11-25] MEDS: FLUTICASONE 50MCG/SPRAY NASAL 16GM EA NOSTRIL SCH (08:52)
--- NOTE | 2020-11-25 09:22 | XR ---
EXAMINATION TYPE: XR chest 1V portable DATE OF EXAM: 11/25/2020 Comparison: 11/24/2020 Clinical History: 60-year-old male shortness of breath Findings: Left PICC tip at the lower SVC level. Left heart margin obscured by adjacent pleural parenchymal opac ity. Diffuse interstitial lung disease and patchy mid and lower lung airspace opacities persist. Some improving aeration at the left lower lung. No pleural effusion. Impression: Diffuse bilateral interstitial infiltrates and patchy opacities persist. However, there is some impro vement in aeration in the left lower lung.
[2020-11-25] MEDS: 1: MVI, ADULT NO.4 WITH VIT K 10 ML, TRACE (CONC-1ML/DOSE) 1 ML, SODIUM ACETATE 30 MEQ, IV SCH ×7 (10:35)
[2020-11-25 11:26] LABS: Glucose,Whole Blood 160 mg/dL (75-99)
--- NOTE | 2020-11-25 11:29 | P.PN ---
Subjective Progress Note Date: 11/25/20 Principal diagnosis: sepsis, COVID-19 pneumonitis, acute respiratory failure, proteinuria and dymetabolic syndrome. HISTORY OF PRESENT ILLNESS This is a pleasant 60-year-old gentleman patient of Dr. Ridge Christina. He doesn't see a physician often and does not note any medical diseases, except for obesity. He comes seen secondary to fever and chills, cough, starting December 06 first, along with muscle aches, lack of appetite and diarrhea. he was tested for call bid November 08, which required at week of reporting, subsequently was sent to emergency room secondary to worsening symptoms, including dyspnea on exertion, shortness of breath and worsening cough without hemoptysis. Fever, shortness of breath lingers, no treatment given to him prior to this admission. The is vaccinated, but the patient is not. He does not believe in vaccines at that time. He comes in the emergency room, with hypoxemia, with very minimal conversational dyspnea, chest x-ray, shows pulmonary infiltrate consistent with Covid pneumonia, oxygen currently is at 6 L nasal cannula, d-dimer was 0.6, LFTs are minimally elevated, 64 AST, lactic acid 2.0 sodium 132, creatinine of 0.9, glucose of 122, LDH of 888, CRP of 5.7. Urine protein noted, without hematuria or proteinuria. Covid was again retested 11/14, PCR is positive. Consult to Dr. Eduardo and pulmonary,, 11/16: Patient is currently on oxygen at 6 L nasal cannula increased to 7 L with humidified oxygen. Patient seen and followed by pulmonary medicine and has been started on Bariticinib, Decadron 6 mg daily, and prophylactic dose of Lovenox. He is reaching 1750 on incentive spirometry. Patient did have episode of diarrhea yesterday, none today and complains of decreased appetite. Patient complains of nasal congestion and Flonase added. 11/17: Patient had difficulty with oxygenation during the night and this morning transitioned to Airfo and partial nonrebreather. Pulse ox is currently running 90-92%, patient is prone. He has been afebrile, heart rate 88, blood pressure 104/63. Repeat d-dimer is elevated at 0.93. Blood sugar 167. C-reactive protein increased to 5.3. AST is 83 and ALT 51. Blood culture remains with no growth after 48 hours. Repeat chest x-ray reveals mild cardiomegaly with bilateral multifocal opacities consistent with Covid 19 infection. No signifi cant change from most recent x-ray. Albuterol inhaler and Symbicort inhaler added. 11/18: Patient is currently on AirVo and nonrebreather with pulse ox of 93%. He's been afebrile, heart rate 85, blood pressure 103/68. Blood culture no growth at 72 hours 2 specimens. Plan to continue proning. Repeat laboratory studies ordered for tomorrow including inflammatory markers. The patient is having difficulty sleeping and melatonin added. Lovenox increased to twice daily dosing. 11/19: Patient remains in isolation. He is on AirVO plus nonrebreather with pulse ox of 93%. He has been afebrile, heart rate 85, blood pressure 122/69. Patient is found sitting in recliner and encouraged to prone when he is able to. Repeat blood work reveals WBC 12, hemoglobin 14.8, platelet count 282. D-dimer is 1.38. Other blood work is pending. Patient is continued on Decadron, vitamin supplements, Lovenox. He is on day #07/20 of Baricitinib. 11/20: Patient has been afebrile, heart rate 71, blood pressure 107/71, pulse ox 88-93% on AirVo plus nonrebreather. Patient seems to be depressed and frustr ated with coarse. Noted that he started on Xanax yesterday by pulmonary. We will add and Remeron 7.5 mg at bedtime. Hemoglobin A1c came back at 6.4. Patient is encouraged to use incentive spirometry, increase activity, prone. Discussed CODE STATUS with patient and he wishes to be a full code. 11/21: Patient will pulse ox of 83% as he was on Airvo only and once nonrebreather was placed she went up to 89%. Patient is not eating much. He has been encouraged to take protein supplement, increase activity and prone but patient does not seem motivated. He was started on Remeron last night which will hopefully help with his mood and appetite. He has continued on Lovenox, dexamethasone, Baricitinib #09/19 repeat blood work reveals WBC 14.3. D-dimer increasing to 3.2. Electrolytes normal, creatinine 0.76. LDH is high at 1476, C-reactive protein stable 6.6. 11/22: Patient continues to be on airflow and nonrebreather and with minimal movement, pulse ox drops down to 82%, otherwise patient is maintaining 92-94%. One dose of IV Lasix ordered for today. Temperature max yesterday afternoon was 101.2. Heart rate in the 70s and 80s. Blood pressure 110/59. Urinalysis was negative for infection. Repeat blood work will be ordered for tomorrow. 11/23: Patient Was moved into ICU overnight. He has been on BiPAP through the night and pulse oxing 95% recently on his side, currently sitting on the edge of the bed pulse oxing 90%, with talking he drops to 83%. He is scheduled for PICC line insertion and plan to start TPN today. Patient has been afebrile, heart rate in the 60s, respiratory rate 28. WBC 12.0, hemoglobin 15, platelet count 351. Lymphocytes 11.1. D-dimer 2.46. Sodium 136, otherwise electrolytes are normal. BUN 30 creatinine 0.7. Blood sugar 128. Magnesium 2.5. Phosphorus 5.5. LDH 1691. C-reactive protein 13.4. Total protein 5.6. Blood cultures remain with no growth. Repeat chest x-ray this morning reveals stable diffuse bilateral infiltrates. Patient is on Baricitinib 10/20. Pulmonary has increased frequency of dexamethasone to twice daily and changed to IV6 mg IV twice daily. 11/24: Patient remain in the ICU, still on BiPAP with pulse ox is improving at this point. Continue dexamethasone and Baricitinib 11/20, patient had full meal this morning his TPN will be suspended after today. Patient will remain in the ICU at least for the next 48 hours. 11/25: Remain in the ICU still on BiPAP but his pulse ox is slightly bit better he still on dexamethasone and Baricitinib 12/20 seems to do slightly but better was agreed by intensive care studies TPN, patient oral intake is slightly but better and had slight improvement compared to yesterday. Surprisingly his marker went up slightly bit specially his LDH up to 2086 with C-reactive protein 3.6 kidney function remained good white blood cell climb up to 15.1 specially been on steroid. Chest x-ray still shows diffuse bilateral interstitial infiltrate and patchy opacification persistent but there is a slight improvement in the variation in the left lower lobe compared to few days earlier. REVIEW OF SYSTEMS Constitutional: No fever, no chills, no night sweats. No weight change. Reports weakness, reports fatigue reports lethargy. Reports daytime sleepiness. EENT: No headache. No blurred vision or double vision, no loss of vision. No loss of Hearing, no ringing in the ears, no dizziness. No nasal drainage or congestion. No epistaxis. No sore throat. Lungs Reported shortness of breath, reported cough, no sputum production. No wheezing. Dyspnea with minimal exertion. dyspnea at rest. Cardiovascular: No chest pain, no lower extremity edema. No palpitations. No paroxysmal nocturnal dyspnea. No orthopnea. No lightheadedness or dizziness. No syncopal episodes. Abdominal: No abdominal pain. No nausea, vomiting. Reports diarrhea. No con stipation. No bloody or tarry stools. Reports loss of appetite. Genitourinary: No dysuria, increased frequency, urgency. No urinary retention. Musculoskeletal: No myalgias. Generalized muscle weakness, no gait dysfunction, no frequent falls. No back pain. No neck pain. Integumentary: No wounds, no lesions. No rash or pruritus. No unusual bruising. Neurologic: No aphasia. No facial droop. No change in mentation. No head injury. No headache. No paresthesia. Psychiatric: No depression. No anxiety. No mood swings. Insomnia. Endocrine: No abnormal blood sugars. PHYSICAL EXAMINATION Gen: This is a 60-year-old obese male. Patient developed significant shortness of breath with minimal activity. He is resting in recliner with airvo and nonrebreather. HEENT: Head is atraumatic, normocephalic. Pupils equal, round. Sclerae is anicteric. NECK: Supple. No JVD. No lymphadenopathy. No thyromegaly. LUNGS: Diminished breath sounds. No wheezes or rhonchi. Reportedintercostal retractions. noted accessory muscle usage. HEART: Regular rate and rhythm. No murmur. ABDOMEN: obese. Soft. Bowel sounds are present. No masses. No tenderness. EXTREMITIES: No pedal edema. No calf tenderness. NEUROLOGICAL: Patient is awake, alert and oriented x3. Cranial nerves 2 through 12 are grossly intact. ASSESSMENT AND PLAN 1. Sepsis (POA) secondary to COVID-19 pneumonia, with acute hypoxemic respiratory failure, diagnosis was of 11/08/2020, symptoms started December 06 first. Patient is not vaccinated, and since being seen in consultation by pulmonary, he is on dexamethasone 6 mg IV increase frequency to twice daily, Lovenox 40 mg twice daily, continue Baricitinib 4 mg oral daily he is on dose 9 out of 14, continue albuterol inhaler, Symbicort inhaler, prone positioning. Continue O2 supplementation currently utilizing BiPAP, monitor inflammatory markers. still have the intensity of ICU at this point specially been on BiPAP still seen pulmonary regular basis. 2. Acute respiratory failure: Secondary to COVID-19 continue current management watching symptoms closely. 3. Moderate protein calorie malnutrition secondary to poor oral intake. PICC line ordered to be placed today, patient will start TPN.patient was able to tolerate full meal we will suspend TPN by the end of day. 4. DVT prophylaxis Lovenox Increased frequency to twice daily. If d-dimer keep climbing up patient might need to go up to 1 mg/kg twice a day. 5. GI prophylaxis Pepcid no abdominal pain. 6. BPH without LUTs no sign of urinary retention. 7. Proteinuria, unknown cause, 8. Dymetabolic syndrome, monitor for hyperglycemia, check A1c CODE Status: Full code DISCHARGE PLAN home Prognosis: Still guarded. Objective - Vital Signs Vital signs: Vital Signs Temp 98.5 F 11/25/20 08:00 Pulse 80 11/25/20 11:00 Resp 33 H 11/25/20 11:00 BP 108/58 11/25/20 11:00 Pulse Ox 86 L 11/25/20 11:00 Intake & Output 11/24/20 11/25/20 11/25/20 18:59 06:59 18:59 Intake Total 900 1195 337.5 Output Total 700 975 300 Balance 200 220 37.5 Weight 111 kg Intake: IV 900 1195 337.5 Fat Emulsion 20% 250 ml @ 0 21 mls/hr IV MoWeFr@1800 COUNT INCLUDES THE [facility] Rx#:[id number] Mvi, Adult No.4 with Vit 360 995 297.5 K 10 ml Trace (Conc-1Ml/ Dose) 1 ml Sodium Acetate 30 meq Sodium Chloride 4Meq/ml Vial 20 meq Potassium Chloride 10 meq Calcium Gluconate 1 gm In Amino Acids 5 %/ Dextrose 20 % 1,000 ml @ 85 mls/hr IV .BY DURATION HIRAM Rx#:[id number] Sodium Chloride 0.9% 1, 540 200 40 000 ml @ 75 mls/hr IV . [id number] COUNT INCLUDES THE [facility] Rx#:[id number] Output: Urine 700 975 300 Other: Voiding Method Urinal Urinal Urinal # Voids 0 0 - Labs CBC & Chem 7: 11/25/20 03:33 11/25/20 03:33 Labs: Abnormal Lab Results - Last 24 Hours (Table) 11/24/20 11/24/20 11/25/20 Range/Units 16:57 19:37 03:33 WBC (3.8-10.6) k/uL Neutrophils # (1.3-7.7) k/uL Lymphocytes # (1.0-4.8) k/uL D-Dimer (<0.60) mg/L FEU Sodium 134 L (137-145) mmol/L BUN 23 H (9-20) mg/dL Creatinine 0.62 L (0.66-1.25) mg/dL Glucose 206 H (74-99) mg/dL POC Glucose (mg/dL) 164 H 126 H (75-99) mg/dL Lactate Dehydrogenase (313-618) U/L C-Reactive Protein 3.6 H (<1.0) mg/dL Total Protein 5.3 L (6.3-8.2) g/dL Albumin 2.7 L (3.5-5.0) g/dL 11/25/20 11/25/20 11/25/20 Range/Units 03:33 03:33 03:33 WBC 15.1 H (3.8-10.6) k/uL Neutrophils # 14.1 H (1.3-7.7) k/uL Lymphocytes # 0.4 L (1.0-4.8) k/uL D-Dimer 5.48 H (<0.60) mg/L FEU Sodium (137-145) mmol/L BUN (9-20) mg/dL Creatinine (0.66-1.25) mg/dL Glucose (74-99) mg/dL POC Glucose (mg/dL) (75-99) mg/dL Lactate Dehydrogenase 2086 H (313-618) U/L C-Reactive Protein (<1.0) mg/dL Total Protein (6.3-8.2) g/dL Albumin (3.5-5.0) g/dL 11/25/20 Range/Units 06:18 WBC (3.8-10.6) k/uL Neutrophils # (1.3-7.7) k/uL Lymphocytes # (1.0-4.8) k/uL D-Dimer (<0.60) mg/L FEU Sodium (137-145) mmol/L BUN (9-20) mg/dL Creatinine (0.66-1.25) mg/dL Glucose (74-99) mg/dL POC Glucose (mg/dL) 165 H (75-99) mg/dL Lactate Dehydrogenase (313-618) U/L C-Reactive Protein (<1.0) mg/dL Total Protein (6.3-8.2) g/dL Albumin (3.5-5.0) g/dL Microbiology - Last 24 Hours (Table) 11/21/20 15:24 Blood Culture - Preliminary Blood No Growth after 72 hours 11/21/20 15:24 Blood Culture - Preliminary Blood No Growth after 72 hours
--- NOTE | 2020-11-25 12:53 | P.PN ---
Subjective Progress Note Date: 11/25/20 Principal diagnosis: Acute hypoxic respiratory failure secondary to COVID-19 pneumonia. On today's evaluation on the 11/15/2020 patient seen in follow-up on medical surgical floor. His O2 saturations are marginal, on 6 L his pulse ox is 90%. Does not seem to be in any acute distress, no increased work of breathing. Occasional cough, nonproductive, patient was outside the window for Remdesivir. He is not vaccinated, S x-ray on admission showed significant patchy infiltrates compatible with his history of COVID-19 infection. Blood pressure has been stable, afebrile. His labs have been reviewed, d-dimer is 0.52, which is 888, CRP is 5.7. Patient is currently on Decadron 6 mg, he is on prophylactic dose Lovenox. Today's evaluation on 11/16/2020 patient seen in follow-up on medical surgical floor, his oxygen demand has increased in the last 24 hours, and his FiO2 was titrated to 10 L, his pulse ox is 91-92%, does not appear to be in any acute respiratory distress, he sitting up in the chair, is awake and alert, oriented 3, his been afebrile overnight, blood pressure is been stable, today's chest x- ray shows patchy perihilar and left lower lobe infiltrate persistence. The patient was started on on Bariticinib, Decadron 6 mg daily, and prophylactic dose of Lovenox. His appetite is poor per nursing staff, he seems to be depressed. Labs have been reviewed, his d-dimer is low at 0.50, his LDH from yesterday was 888, and CRP was 5.7. On 11/17/2020 patient seen in follow-up on the surgical floor. He is currently on Airvo 60 L and FiO2 of 94% in addition to partial nonrebreather mask and his pulse ox is around 90-92%. Patient easily desaturates with any activity. He is currently on his abdomen, he is self proning, and his oxygen does improve when he does that with a pulse ox of 95-96%, he tolerates proning fairly well. Patient is on day 3 of Bariticinib, he is also on Decadron 6 g daily, and prophylactic dose of Lovenox. His chest x-ray today shows mild cardiomegaly with bilateral multifocal opacities with no significant change from most recent chest x-ray. Today's labs have been reviewed, with blood cell count is 10, hemoglobin is 14.9, lymphocyte count is 0.7, d-dimer is 0.93, electrolytes are within normal limits, BUN is 25 creatinine 0.82. Reevaluated today on 11/18/2020, patient remains on airvo , and on nonrebreather mask, his FiO2 is at 90%, and flow is 60 L/m via airvo. Saturation is marginal, however the patient seems to be rather comfortable. His O2 saturation is in the low 90s, desaturates easily with activity. He is doing self groaning, and he does improve with self groaning hence I'm recommending titrating his FiO2 down as his oxygenation improved. BC today is relatively normal d-dimer is up a bit at 0.93. Electrolytes are normal renal profile is normal. Last chest x-ray from 11/17 continues to show bilateral multifocal opacities consistent with COVID-19 infection, not much improvement noted based on the chest x-ray. Patient was reevaluated today on 11/19/2020, remains on the regular medical fl oor, remains on Airvo plus nonrebreather mask, and his O2 saturation is in the range of 93-96%. Patient is surprisingly comfortable, sitting in a recliner, not in any distress. WBC count is 12 hemoglobin 14.8 electrolytes are normal renal profile is normal, LDH is 566 and his C-reactive protein is 8.1. Slightly bit more elevated compared to yesterday. Patient remains on the COVID-19 cocktail, remains on Lovenox at 40 mg subcu twice a day, and he is on Decadron, as well as baricitinib Reevaluated today on 11/20/2020, patient is basically about the same, not much different today from yesterday. O2 saturation remains marginal in the low 90s, patient remains on airvo at 90%, and 60 L flow. He also has a nonrebreather mask, and O2 saturation remains marginal at best. Clinically however the patient is about the same, has been adjusting his sleep positions and sometimes he notices significant improvement when he lays on the left side of the right side. Unable to go into a prone position. CBC is relatively normal his d-dimer is a bit up 1.38 his electrolytes are normal renal profile is normal, LDH is 566 C-reactive protein is a bit higher today 8.1. Pro-calcitonin is 0.11 Patient was reevaluated today on 11/21/2020, remains on airvo at maximal flow and FiO2, patient remains on nonrebreather mask, O2 saturation is in the high 80s and low 90s. Patient feels better in the right lateral decubitus position, he is basically overall about the same. He is not demonstrating any significant improvement or any worsening. Remains on all the COVID-19 cocktail, not much changed. D-dimer 3.2 today. Patient was reevaluated today on 11/23/2020, I saw him yesterday and I recommende d transfer to the ICU. Remains in the ICU, patient is on BiPAP, IPAP 12 EPAP of 6 and FiO2 is 100%. His O2 saturation is marginal in the low 90s, improves when the patient goes in the left lateral decubitus position. Hence I advised him to stay as often as he can in the left lateral decubitus position. Patient is scheduled to have a PICC line placed for TPN. Has not been eating much, and his interstitial status is poor. Patient remains on baricitinib, and he is on the rest of the COVID-19 cocktail. Today's d-dimer is 2.46. Clinically however and surprisingly the patient is feeling comfortable, does not seem to be in distress. WBC count is 12 hemoglobin is 15 electrolytes are normal renal profile is normal, inflammatory markers are high LDH of 1691 and C-reactive protein is 13.4. Pro-calcitonin remains low at 0.09. Reevaluated today on 11/24/2020, patient remains in the ICU, transitioned yesterday from BiPAP to airvo at 60 L flow, and 90% FiO2. His O2 saturation is marginal, patient did use BiPAP last night. He went off BiPAP at 5 AM this morning. Remains on IV fluid at 75 mL/h, he is also on TPN via PICC line. Overall the patient is holding nicely, remains on Decadron twice a day, is also on baricitinib seems to be tolerating both well. Patient is considered marginal at best, I'm not seeing significant improvement and I'm not seeing worsening at this point. WBC count today is noted to be high at 16.7. Electrolytes are normal renal profile is normal, his last pro-calcitonin 2 days ago was 0.09, relatively unremarkable. Reevaluated today on 11/25/2020, patient remains in the ICU, alternating between airvo and BiPAP, nonetheless he remains on relatively high FiO2 and high flow if clinically the patient is about the same, his O2 saturation remains marginal in the high 80s and low 90s. Patient remains on TPN which I plan to discontinue since the patient is eating better today, he feels a bit better today, chest x- ray is basically about the same. Patient remains on the COVID-19 cocktail, on multiple drugs as listed below. Respiratory BC count is 15.1 hemoglobin 14.3 d- dimer is 5.48, patient remains on Lovenox at 40 mg subcu twice a day. His renal profile is normal his electrolytes are normal, LDH is 2086 and C-reactive protein is 3.6. His LDH is higher than yesterday, his C-reactive protein is lower, and his d-dimer is higher. Objective - Vital Signs Vital signs: Vital Signs Temp 98.7 F 11/25/20 12:00 Pulse 93 11/25/20 12:00 Resp 30 H 11/25/20 12:00 BP 108/58 11/25/20 12:00 Pulse Ox 83 L 11/25/20 12:00 Intake & Output 11/24/20 11/25/20 11/25/20 18:59 06:59 18:59 Intake Total 900 1195 390.0 Output Total 700 975 300 Balance 200 220 90.0 Weight 111 kg Intake: IV 900 1195 390.0 Fat Emulsion 20% 250 ml @ 0 21 mls/hr IV MoWeFr@1800 [facility] Rx#:[id number] Mvi, Adult No.4 with Vit 360 995 340.0 K 10 ml Trace (Conc-1Ml/ Dose) 1 ml Sodium Acetate 30 meq Sodium Chloride 4Meq/ml Vial 20 meq Potassium Chloride 10 meq Calcium Gluconate 1 gm In Amino Acids 5 %/ Dextrose 20 % 1,000 ml @ 85 mls/hr IV .BY DURATION [facility]IRAM Rx#:[id number] Sodium Chloride 0.9% 1, 540 200 50 000 ml @ 75 mls/hr IV . [id number] [facility] Rx#:[id number] Output: Urine 700 975 300 Other: Voiding Method Urinal Urinal Urinal # Voids 0 0 - Exam Gen: This is a 60-year-old obese male, not in distress on airvo HEENT: Head is atraumatic, normocephalic. [place], EOMI, nonicteric, no neck masses, no rigidity. NECK: Supple. No JVD. No lymphadenopathy. No thyromegaly. LUNGS: Crackles at the bases persist, no rhonchi no wheezes. HEART: Regular rate and rhythm. No murmur. ABDOMEN: obese. Soft. Bowel sounds are present. No masses. No tenderness. EXTREMITIES: No pedal edema. No calf tenderness. NEUROLOGICAL:Alert and oriented 3 no gross focal deficits. Psychiatric: Normal mood, affect and normal mental status examination. Skin: No rashes. - Labs CBC & Chem 7: 11/25/20 03:33 11/25/20 03:33 Labs: Abnormal Lab Results - Last 24 Hours (Table) 11/24/20 11/24/20 11/25/20 Range/Units 16:57 19:37 03:33 WBC (3.8-10.6) k/uL Neutrophils # (1.3-7.7) k/uL Lymphocytes # (1.0-4.8) k/uL D-Dimer (<0.60) mg/L FEU Sodium 134 L (137-145) mmol/L BUN 23 H (9-20) mg/dL Creatinine 0.62 L (0.66-1.25) mg/dL Glucose 206 H (74-99) mg/dL POC Glucose (mg/dL) 164 H 126 H (75-99) mg/dL Lactate Dehydrogenase (313-618) U/L C-Reactive Protein 3.6 H (<1.0) mg/dL Total Protein 5.3 L (6.3-8.2) g/dL Albumin 2.7 L (3.5-5.0) g/dL 11/25/20 11/25/20 11/25/20 Range/Units 03:33 03:33 03:33 WBC 15.1 H (3.8-10.6) k/uL Neutrophils # 14.1 H (1.3-7.7) k/uL Lymphocytes # 0.4 L (1.0-4.8) k/uL D-Dimer 5.48 H (<0.60) mg/L FEU Sodium (137-145) mmol/L BUN (9-20) mg/dL Creatinine (0.66-1.25) mg/dL Glucose (74-99) mg/dL POC Glucose (mg/dL) (75-99) mg/dL Lactate Dehydrogenase 2086 H (313-618) U/L C-Reactive Protein (<1.0) mg/dL Total Protein (6.3-8.2) g/dL Albumin (3.5-5.0) g/dL 11/25/20 11/25/20 Range/Units 06:18 11:25 WBC (3.8-10.6) k/uL Neutrophils # (1.3-7.7) k/uL Lymphocytes # (1.0-4.8) k/uL D-Dimer (<0.60) mg/L FEU Sodium (137-145) mmol/L BUN (9-20) mg/dL Creatinine (0.66-1.25) mg/dL Glucose (74-99) mg/dL POC Glucose (mg/dL) 165 H 160 H (75-99) mg/dL Lactate Dehydrogenase (313-618) U/L C-Reactive Protein (<1.0) mg/dL Total Protein (6.3-8.2) g/dL Albumin (3.5-5.0) g/dL Microbiology - Last 24 Hours (Table) 11/21/20 15:24 Blood Culture - Preliminary Blood No Growth after 72 hours 11/21/20 15:24 Blood Culture - Preliminary Blood No Growth after 72 hours Assessment and Plan Assessment: Impression: Acute hypoxic referred failure secondary to COVID-19 pneumonia patient is not vaccinated, started on baricitinib on 11/15, patient was out of the window for remdesivir. Patient is also on Decadron, 6 mg IV push twice a day. and on Loveno 40 mg subcu twice a day. Obesity with BMI of 38. Increased inflammatory markers secondary to COVID-19 pneumonia/infection. Recommendation: Continue to monitor the patient in the ICU. Titrate oxygen accordingly. Alternate between interval on BiPAP. With recommended BiPAP when he goes to bed. Continue COVID-19 cocktail. Continue Decadron and Lovenox. Position patient intermittently to attain improvement in his O2 saturation. Continue baricitinib, total length of treatment this 14 days on the patient is on his 11th day today. Discontinue TPN if the patient is receiving adequate oral nutrition. Adequate c aloric intake Prognosis remains relatively guarded, we'll continue to follow and we'll continue to monitor in the ICU Time with Patient: Less than 30
[2020-11-25] MEDS: BARICITINIB 2 MG TABLET PO SCH (15:24)
[2020-11-25 16:51] LABS: Glucose,Whole Blood 128 mg/dL (75-99)
[2020-11-25 20:47] LABS: Glucose,Whole Blood 139 mg/dL (75-99)
[2020-11-25] MEDS: MELATONIN 3 MG TABLET PO SCH (20:59)
[2020-11-25] MEDS: MIRTAZAPINE 15 MG TAB PO SCH (20:59)
[2020-11-26 04:46] LABS: Basophils % (A) 0 %; Eosinophils # (A) 0.2 k/uL (0-0.7); Eosinophils % (A) 1 %; HCT 42.2 % (39.0-53.0); HGB 14.4 gm/dL (13.0-17.5); Lymphocytes # (A) 0.7 k/uL (1.0-4.8); Lymphocytes % (A) 4 %; MCH 29.2 pg (25.0-35.0); MCHC 34.1 g/dL (31.0-37.0); MCV 85.6 fL (80.0-100.0); Mean Platelet Volume 7.9; Monocytes # (A) 0.3 k/uL (0-1.0); Monocytes % (A) 2 %; Neutrophils # (A) 16.1 k/uL (1.3-7.7); Neutrophils % (A) 93 %; Platelet Count 216 k/uL (150-450); RBC 4.93 m/uL (4.30-5.90); RDW 13.6 % (11.5-15.5); WBC 17.4 k/uL (3.8-10.6)
[2020-11-26 05:13] LABS: ALT 57 U/L (4-49); AST 56 U/L (17-59); African American GFR (CKD) >90 (>60 ml/min/1.73 sqM); Albumin 2.8 g/dL (3.5-5.0); Alkaline Phosphatase 124 U/L (38-126); Anion Gap 5 mmol/L; Blood Urea Nitrogen 25 mg/dL (9-20); Calcium 8.6 mg/dL (8.4-10.2); Carbon Dioxide 26 mmol/L (22-30); Chloride 105 mmol/L (98-107); Glucose 119 mg/dL (74-99); Magnesium 2.3 mg/dL (1.6-2.3); Non-African American GFR(CKD) >90 (>60 ml/min/1.73 sqM); Phosphorus 4.7 mg/dL (2.5-4.5); Potassium 4.6 mmol/L (3.5-5.1); Sodium 136 mmol/L (137-145); Total Bilirubin 0.7 mg/dL (0.2-1.3); Total Protein 5.4 g/dL (6.3-8.2)
[2020-11-26 05:46] LABS: LDH 2423 U/L (313-618)
[2020-11-26] MEDS: INSULIN ASPART (NovoLOG) 100 UNIT/ML VIAL SQ SCH ×4 (06:18→20:57)
--- NOTE | 2020-11-26 07:08 | XR ---
EXAMINATION TYPE: XR chest 1V portable DATE OF EXAM: 11/26/2020 HISTORY: Shortness of breath. COMPARISON: 11/25/2020 TECHNIQUE: Single view of the chest is submitted. FINDINGS: Demonstrated are scattered senescent parenchymal change. Patchy infiltrates throughout both lung felix persist unchanged. PICC line is unchanged as well. The heart is stable. Hilar and mediastinal structures are within normal limits. Degenerative changes are seen of the dorsal spine. IMPRESSION: 1. Stable chest
[2020-11-26] MEDS: SYMBICORT 160-4.5 MCG INHALER INHALATION SCH ×2 (07:44→20:46)
[2020-11-26] MEDS: ALBUTEROL HFA INHALER INHALATION SCH ×3 (07:44→20:45)
[2020-11-26] MEDS: CHOLECALCIFEROL 25 MCG (1000 IU) TABLET PO SCH (08:24)
[2020-11-26] MEDS: ALPRAZolam 0.25 MG TAB PO SCH ×3 (08:24→20:56)
[2020-11-26] MEDS: ZINC SULFATE 220 MG CAP PO SCH (08:24)
[2020-11-26] MEDS: DICLOFENAC SODIUM GEL 100 GM TUBE TOPICAL SCH ×4 (08:25→20:57)
[2020-11-26] MEDS: ENOXAPARIN 40 MG/0.4 ML SYRINGE SQ SCH ×2 (08:25→20:56)
[2020-11-26] MEDS: ASCORBIC ACID 500 MG TAB PO SCH ×2 (08:25→20:56)
[2020-11-26] MEDS: DEXAMETHASONE SOD PHOSPHATE 10 MG/ML 1 ML VIAL IV SCH ×2 (08:25→20:57)
[2020-11-26] MEDS: SODIUM CHLORIDE 0.9% 1,000 ML IV SCH ×2 (08:26→16:12)
[2020-11-26] MEDS: FLUTICASONE 50MCG/SPRAY NASAL 16GM EA NOSTRIL SCH (08:26)
--- NOTE | 2020-11-26 10:10 | P.PN ---
Subjective Progress Note Date: 11/26/20 Principal diagnosis: COVID-19 pneumonia On today's evaluation on the 11/15/2020 patient seen in follow-up on medical surgical floor. His O2 saturations are marginal, on 6 L his pulse ox is 90%. Does not seem to be in any acute distress, no increased work of breathing. Occasional cough, nonproductive, patient was outside the window for Remdesivir. He is not vaccinated, S x-ray on admission showed significant patchy infiltrates compatible with his history of COVID-19 infection. Blood pressure has been stable, afebrile. His labs have been reviewed, d-dimer is 0.52, which is 888, CRP is 5.7. Patient is currently on Decadron 6 mg, he is on prophylactic dose Lovenox. Today's evaluation on 11/16/2020 patient seen in follow-up on medical surgical floor, his oxygen demand has increased in the last 24 hours, and his FiO2 was titrated to 10 L, his pulse ox is 91-92%, does not appear to be in any acute respiratory distress, he sitting up in the chair, is awake and alert, oriented 3, his been afebrile overnight, blood pressure is been stable, today's chest x- ray shows patchy perihilar and left lower lobe infiltrate persistence. The patient was started on on Bariticinib, Decadron 6 mg daily, and prophylactic dose of Lovenox. His appetite is poor per nursing staff, he seems to be depressed. Labs have been reviewed, his d-dimer is low at 0.50, his LDH from yesterday was 888, and CRP was 5.7. On 11/17/2020 patient seen in follow-up on the surgical floor. He is currently on Airvo 60 L and FiO2 of 94% in addition to partial nonrebreather mask and his pulse ox is around 90-92%. Patient easily desaturates with any activity. He is currently on his abdomen, he is self proning, and his oxygen does improve when he does that with a pulse ox of 95-96%, he tolerates proning fairly well. Patient is on day 3 of Bariticinib, he is also on Decadron 6 g daily, and prophylactic dose of Lovenox. His chest x-ray today shows mild cardiomegaly with bilateral multifocal opacities with no significant change from most recent chest x-ray. Today's labs have been reviewed, with blood cell count is 10, hemoglobin is 14.9, lymphocyte count is 0.7, d-dimer is 0.93, electrolytes are within normal limits, BUN is 25 creatinine 0.82. On 11/22/2020 patient is seen and follow-up on medical surgical floor, he is currently on Airvo at 60 L and FiO2 of 93%, in addition to 100% nonrebreather mask, and he sat been about 85%, with any movement patient desaturates down to 70%, and takes a long time to recover, patient is up in the recliner, he has to sit perfectly still in order not to drop his O2 saturations, he is tired, he does not want to eat. Oral intake has been poor. He continues on Baricitinib, today is day 7 of treatment, in addition to oral Decadron 6 mg daily, Lovenox 40 mg twice daily, patient received a dose of IV Lasix as well today. His chest x-ray today showing increasing lower lung bilateral opacities. No pleural effusion. Today's labs have been reviewed, his INR is 1.1, no d-dimer yet, sodium is 135, the rest of the electrolytes were unremarkable, B1 is 26, creatinine 0.75. Patient hasn't had a new set of inflammatory markers in the last couple of days. On 11/26/2020 patient seen in follow-up in intensive care unit. He is awake and alert, oriented 3, he is currently off BiPAP, and she is on Airvo at 60 L and FiO2 of 90%, and his pulse ox is around 84-85%. She does wear BiPAP support with pressure of 12 and 6 and FiO2 of 100%, and usually his O2 saturations are better on BiPAP support and run at 90-92%. he does come off the BiPAP to eat meals. Seems fairly comfortable, despite low O2 saturations. Afebrile, hemodynamically has been stable. He is on IV 0.9 normal saline at a rate of 75 ML per hour, no other drips, he continues on Baricitinib 4 mg daily, since 11/15/2020. He remains on Decadron 6 mg twice daily, and Lovenox 40 mg twice daily. Today's chest x-ray has been reviewed showing patchy infiltrates throughout both lung felix, without significant change since yesterday. Today's labs have been reviewed, his d-dimer is at 6.6, slightly increased from yesterday from 5.48. His electrolytes are unremarkable, B1 is 25 creatinine 0.67, LDH has increased to 2423, and CRP actually came down and is down to 3, pro-calcitonin level was repeated and came back negative at 0.09. White blood cell count is 17.4 on today's labs, lymphocyte count is 0.7. Blood cultures have shown no growth. Objective - Vital Signs Vital signs: Vital Signs Temp 97.7 F 11/26/20 08:00 Pulse 89 11/26/20 09:00 Resp 30 H 11/26/20 09:00 BP 95/61 11/26/20 09:00 Pulse Ox 82 L 11/26/20 09:00 Intake & Output 11/25/20 11/26/20 11/26/20 18:59 06:59 18:59 Intake Total 827.50 900 390 Output Total 600 750 325 Balance 227.50 150 65 Weight 110.6 kg Intake: IV 827.50 900 150 Mvi, Adult No.4 with Vit 382.50 K 10 ml Trace (Conc-1Ml/ Dose) 1 ml Sodium Acetate 30 meq Sodium Chloride 4Meq/ml Vial 20 meq Potassium Chloride 10 meq Calcium Gluconate 1 gm In Amino Acids 5 %/ Dextrose 20 % 1,000 ml @ 85 mls/hr IV .BY DURATION [facility] Rx#:[id number] Sodium Chloride 0.9% 1, 445 900 150 000 ml @ 75 mls/hr IV . [id number] [facility] Rx#:[id number] Oral 240 Output: Urine 600 750 325 Other: Voiding Method Urinal Urinal # Voids 1 0 # Bowel Movements 1 - Exam GENERAL EXAM: Alert, very pleasant, 60-year-old white male, on Airvo at 60 L and FiO2 of 90%, he alternates between BiPAP at pressure of 12/6 and FiO2 of 100% HEAD: Normocephalic/atraumatic. EYES: Normal reaction of pupils, equal size. Conjunctiva pink, sclera white. NOSE: Clear with pink turbinates. THROAT: No erythema or exudates. NECK: No masses, no JVD, no thyroid enlargement, no adenopathy. CHEST: No chest wall deformity. Symmetrical expansion. LUNGS: Equal air entry with no crackles, wheeze, rhonchi or dullness. CVS: Regular rate and rhythm, normal S1 and S2, no gallops, no murmurs, no rubs ABDOMEN: Soft, nontender. No hepatosplenomegaly, normal bowel sounds, no guarding or rigidity. EXTREMITIES: No clubbing, no edema, no cyanosis, 2+ pulses and upper and lower extremities. MUSCULOSKELETAL: Muscle strength and tone normal. SPINE: No scoliosis or deformity SKIN: No rashes CENTRAL NERVOUS SYSTEM: Alert and oriented -3. No focal deficits, tone is normal in all 4 extremities. PSYCHIATRIC: Alert and oriented -3. Appropriate affect. Intact judgment and insight. - Labs CBC & Chem 7: 11/26/20 04:18 11/26/20 04:18 Labs: Abnormal Lab Results - Last 24 Hours (Table) 11/25/20 11/25/20 11/25/20 Range/Units 11:25 16:50 20:45 WBC (3.8-10.6) k/uL Neutrophils # (1.3-7.7) k/uL Lymphocytes # (1.0-4.8) k/uL D-Dimer (<0.60) mg/L FEU Sodium (137-145) mmol/L BUN (9-20) mg/dL Glucose (74-99) mg/dL POC Glucose (mg/dL) 160 H 128 H 139 H (75-99) mg/dL Phosphorus (2.5-4.5) mg/dL ALT (4-49) U/L Lactate Dehydrogenase (313-618) U/L C-Reactive Protein (<1.0) mg/dL Total Protein (6.3-8.2) g/dL Albumin (3.5-5.0) g/dL 11/26/20 11/26/20 11/26/20 Range/Units 04:18 04:18 04:18 WBC 17.4 H (3.8-10.6) k/uL Neutrophils # 16.1 H (1.3-7.7) k/uL Lymphocytes # 0.7 L (1.0-4.8) k/uL D-Dimer 6.66 H (<0.60) mg/L FEU Sodium 136 L (137-145) mmol/L BUN 25 H (9-20) mg/dL Glucose 119 H (74-99) mg/dL POC Glucose (mg/dL) (75-99) mg/dL Phosphorus 4.7 H (2.5-4.5) mg/dL ALT 57 H (4-49) U/L Lactate Dehydrogenase 2423 H (313-618) U/L C-Reactive Protein 3.0 H (<1.0) mg/dL Total Protein 5.4 L (6.3-8.2) g/dL Albumin 2.8 L (3.5-5.0) g/dL Microbiology - Last 24 Hours (Table) 11/21/20 15:24 Blood Culture - Preliminary Blood No Growth after 96 hours 11/21/20 15:24 Blood Culture - Preliminary Blood No Growth after 96 hours Assessment and Plan Plan: #1. acute Covid 19 related pneumonia. The patient became symptomatic approximately 8 days ago. Presented with worsening shortness of breath and bilateral pneumonia. Patient is not vaccinated. The patient has not received any outpatient treatments for Covid 19 infection. Diagnosis established during this current admission. Started on Bariticinib on 11/15/2020 in view of worsening hypoxic respiratory failure. Patient was outside the window for Remdesivir #2. acute hypoxic respiratory failure which has significantly progressed since admission, and patient is currently on Airvo at 60 L and FiO2 of 94% in addition to nonrebreather mask, and his pulse ox is 85%. In view of worsening chest x- ray findings and worsening hypoxia patient will be transferred to the intensive care unit today on 11/22/2020 #3. obesity with a BMI of 38. #4. Increased inflammatory markers related to acute COVID-19 pneumonia #5. Increased d-dimer, related to viral pneumonia, currently on Lovenox 40 mg twice daily, will obtain lower extremity Dopplers Plan: Today's chest x-ray has been reviewed, showing patchy infiltrates bilaterally, without significant change Remains on BiPAP support and has been alternating it with Airvo 60 L and FiO2 Seems fairly comfortable Continue Decadron, and Lovenox He continues on Bariticinib Obtain follow-up d-dimer, inflammatory markers Basic labs, follow-up chest x-ray tomorrow Continue COVID-19 vitamins Continue nutritional supplements I performed a history & physical examination of the patient and discussed their management with my nurse practitioner, Jovita Thomas. I reviewed the nurse practitioner's note and agree with the documented findings and plan of care. Lung sounds are positive for diminished breath sounds throughout the lung felix. The findings and the impression was discussed with the patient. I attest to the documentation by the nurse practitioner. Time with Patient: Less than 30
--- NOTE | 2020-11-26 11:02 | US ---
EXAMINATION TYPE: US venous doppler duplex LE DATE OF EXAM: 11/26/2020 10:48 AM COMPARISON: NONE CLINICAL HISTORY: elevated d-dimer. ICU patient with COVID SIDE PERFORMED: Bilateral TECHNIQUE: The lower extremity deep venous system is examined utilizing real time linear array sonog umm with graded compression, doppler sonography and color-flow sonography. VESSELS IMAGED: Common Femoral Vein Deep Femoral Vein Greater Saphenous Vein * Femoral Vein Popliteal Vein Small Saphenous Vein * Proximal Calf Veins (* superficial vessels) Right Leg: Negative for DVT Left Leg: Negative for DVT IMPRESSION: No evidence for DVT at this time.
--- NOTE | 2020-11-26 11:53 | P.PN ---
Subjective Progress Note Date: 11/26/20 Principal diagnosis: sepsis, COVID-19 pneumonitis, acute respiratory failure, proteinuria and dymetabolic syndrome. HISTORY OF PRESENT ILLNESS This is a pleasant 60-year-old gentleman patient of Dr. Ridge Christina. He doesn't see a physician often and does not note any medical diseases, except for obesity. He comes seen secondary to fever and chills, cough, starting December 06 first, along with muscle aches, lack of appetite and diarrhea. he was tested for call bid November 08, which required at week of reporting, subsequently was sent to emergency room secondary to worsening symptoms, including dyspnea on exertion, shortness of breath and worsening cough without hemoptysis. Fever, shortness of breath lingers, no treatment given to him prior to this admission. The is vaccinated, but the patient is not. He does not believe in vaccines at that time. He comes in the emergency room, with hypoxemia, with very minimal conversational dyspnea, chest x-ray, shows pulmonary infiltrate consistent with Covid pneumonia, oxygen currently is at 6 L nasal cannula, d-dimer was 0.6, LFTs are minimally elevated, 64 AST, lactic acid 2.0 sodium 132, creatinine of 0.9, glucose of 122, LDH of 888, CRP of 5.7. Urine protein noted, without hematuria or proteinuria. Covid was again retested 11/14, PCR is positive. Consult to Dr. Eduardo and pulmonary,, 11/16: Patient is currently on oxygen at 6 L nasal cannula increased to 7 L with humidified oxygen. Patient seen and followed by pulmonary medicine and has been started on Bariticinib, Decadron 6 mg daily, and prophylactic dose of Lovenox. He is reaching 1750 on incentive spirometry. Patient did have episode of diarrhea yesterday, none today and complains of decreased appetite. Patient complains of nasal congestion and Flonase added. 11/17: Patient had difficulty with oxygenation during the night and this morning transitioned to Airfo and partial nonrebreather. Pulse ox is currently running 90-92%, patient is prone. He has been afebrile, heart rate 88, blood pressure 104/63. Repeat d-dimer is elevated at 0.93. Blood sugar 167. C-reactive protein increased to 5.3. AST is 83 and ALT 51. Blood culture remains with no growth after 48 hours. Repeat chest x-ray reveals mild cardiomegaly with bilateral multifocal opacities consistent with Covid 19 infection. No signifi cant change from most recent x-ray. Albuterol inhaler and Symbicort inhaler added. 11/18: Patient is currently on AirVo and nonrebreather with pulse ox of 93%. He's been afebrile, heart rate 85, blood pressure 103/68. Blood culture no growth at 72 hours 2 specimens. Plan to continue proning. Repeat laboratory studies ordered for tomorrow including inflammatory markers. The patient is having difficulty sleeping and melatonin added. Lovenox increased to twice daily dosing. 11/19: Patient remains in isolation. He is on AirVO plus nonrebreather with pulse ox of 93%. He has been afebrile, heart rate 85, blood pressure 122/69. Patient is found sitting in recliner and encouraged to prone when he is able to. Repeat blood work reveals WBC 12, hemoglobin 14.8, platelet count 282. D-dimer is 1.38. Other blood work is pending. Patient is continued on Decadron, vitamin supplements, Lovenox. He is on day #07/20 of Baricitinib. 11/20: Patient has been afebrile, heart rate 71, blood pressure 107/71, pulse ox 88-93% on AirVo plus nonrebreather. Patient seems to be depressed and frustr ated with coarse. Noted that he started on Xanax yesterday by pulmonary. We will add and Remeron 7.5 mg at bedtime. Hemoglobin A1c came back at 6.4. Patient is encouraged to use incentive spirometry, increase activity, prone. Discussed CODE STATUS with patient and he wishes to be a full code. 11/21: Patient will pulse ox of 83% as he was on Airvo only and once nonrebreather was placed she went up to 89%. Patient is not eating much. He has been encouraged to take protein supplement, increase activity and prone but patient does not seem motivated. He was started on Remeron last night which will hopefully help with his mood and appetite. He has continued on Lovenox, dexamethasone, Baricitinib #09/19 repeat blood work reveals WBC 14.3. D-dimer increasing to 3.2. Electrolytes normal, creatinine 0.76. LDH is high at 1476, C-reactive protein stable 6.6. 11/22: Patient continues to be on airflow and nonrebreather and with minimal movement, pulse ox drops down to 82%, otherwise patient is maintaining 92-94%. One dose of IV Lasix ordered for today. Temperature max yesterday afternoon was 101.2. Heart rate in the 70s and 80s. Blood pressure 110/59. Urinalysis was negative for infection. Repeat blood work will be ordered for tomorrow. 11/23: Patient Was moved into ICU overnight. He has been on BiPAP through the night and pulse oxing 95% recently on his side, currently sitting on the edge of the bed pulse oxing 90%, with talking he drops to 83%. He is scheduled for PICC line insertion and plan to start TPN today. Patient has been afebrile, heart rate in the 60s, respiratory rate 28. WBC 12.0, hemoglobin 15, platelet count 351. Lymphocytes 11.1. D-dimer 2.46. Sodium 136, otherwise electrolytes are normal. BUN 30 creatinine 0.7. Blood sugar 128. Magnesium 2.5. Phosphorus 5.5. LDH 1691. C-reactive protein 13.4. Total protein 5.6. Blood cultures remain with no growth. Repeat chest x-ray this morning reveals stable diffuse bilateral infiltrates. Patient is on Baricitinib 10/20. Pulmonary has increased frequency of dexamethasone to twice daily and changed to IV6 mg IV twice daily. 11/24: Patient remain in the ICU, still on BiPAP with pulse ox is improving at this point. Continue dexamethasone and Baricitinib 11/20, patient had full meal this morning his TPN will be suspended after today. Patient will remain in the ICU at least for the next 48 hours. 11/25: Remain in the ICU still on BiPAP but his pulse ox is slightly bit better he still on dexamethasone and Baricitinib 12/20 seems to do slightly but better was agreed by intensive care studies TPN, patient oral intake is slightly but better and had slight improvement compared to yesterday. Surprisingly his marker went up slightly bit specially his LDH up to 2086 with C-reactive protein 3.6 kidney function remained good white blood cell climb up to 15.1 specially been on steroid. Chest x-ray still shows diffuse bilateral interstitial infiltrate and patchy opacification persistent but there is a slight improvement in the variation in the left lower lobe compared to few days earlier. 11/26: Patient remain on BiPAP with 100% oxygen to keep his pulse ox around 92 percentile, his d-dimer continue to be quite bit elevated today is having Doppler of the lower extremity but notes CT at this point. Remain on Symbicort, and albuterol HFA, his white blood cell is down 17,000, blood sugars better control. Chest x-ray still showed patchy infiltrate throughout both lung felix persistent didn't change. Patient had mild anxiety with no pain currently. REVIEW OF SYSTEMS Constitutional: No fever, no chills, no night sweats. No weight change. Reports weakness, reports fatigue reports lethargy. Reports daytime sleepiness. EENT: No headache. No blurred vision or double vision, no loss of vision. No loss of Hearing, no ringing in the ears, no dizziness. No nasal drainage or congestion. No epistaxis. No sore throat. Lungs Reported shortness of breath, reported cough, no sputum production. No wheezing. Dyspnea with minimal exertion. dyspnea at rest. Cardiovascular: No chest pain, no lower extremity edema. No palpitations. No paroxysmal nocturnal dyspnea. No orthopnea. No lightheadedness or dizziness. No syncopal episodes. Abdominal: No abdominal pain. No nausea, vomiting. Reports diarrhea. No constipation. No bloody or tarry stools. Reports loss of appetite. Genitourinary: No dysuria, increased frequency, urgency. No urinary retention. Musculoskeletal: No myalgias. Generalized muscle weakness, no gait dysfunction, no frequent falls. No back pain. No neck pain. Integumentary: No wounds, no lesions. No rash or pruritus. No unusual bruising. Neurologic: No aphasia. No facial droop. No change in mentation. No head injury. No headache. No paresthesia. Psychiatric: No depression. No anxiety. No mood swings. Insomnia. Endocrine: No abnormal blood sugars. PHYSICAL EXAMINATION Gen: This is a 60-year-old obese male. Patient developed significant shortness of breath with minimal activity. He is resting in recliner with airvo and nonrebreather. HEENT: Head is atraumatic, normocephalic. Pupils equal, round. Sclerae is anicteric. NECK: Supple. No JVD. No lymphadenopathy. No thyromegaly. LUNGS: Diminished breath sounds. No wheezes or rhonchi. Reportedintercostal retractions. noted accessory muscle usage. HEART: Regular rate and rhythm. No murmur. ABDOMEN: obese. Soft. Bowel sounds are present. No masses. No tenderness. EXTREMITIES: No pedal edema. No calf tenderness. NEUROLOGICAL: Patient is awake, alert and oriented x3. Cranial nerves 2 through 12 are grossly intact. ASSESSMENT AND PLAN 1. Acute respiratory failure: Secondary to COVID-19, remain on BiPAP with 100% slow try to keep his pulse ox as close as possible to 90. Patient d-dimer is elevated is having Doppler of the lower extremity whether he should have another CT or not still be determined by pulmonary. 2. Sepsis (POA) secondary to COVID-19 pneumonia, with acute hypoxemic respiratory failure, diagnosis was of 11/08/2020, symptoms started December 06 first. Patient is not vaccinated, and since being seen in consultation by pulmonary, he is on dexamethasone 6 mg IV increase frequency to twice daily, Lovenox 40 mg twice daily, continue Baricitinib 4 mg oral daily he is on dose 9 out of 14, continue albuterol inhaler, Symbicort inhaler, prone positioning. Continue O2 via BiPAP is 100% O2 3. Moderate protein calorie malnutrition secondary to poor oral intake. Patient is off TPN his doing better with oral intake. 4. DVT prophylaxis Lovenox Increased frequency to twice daily. If d-dimer keep climbing up patient might need to go up to 1 mg/kg twice a day. Doppler of lower extremity be done and possible need for CTA. 5. GI prophylaxis Pepcid no abdominal pain. 6. BPH without LUTs no sign of urinary retention. 7. Proteinuria, unknown cause, 8. Dymetabolic syndrome, monitor for hyperglycemia, check A1c watching his blood sugar on Accu-Chek. CODE Status: Full code Prognosis: Still guarded. Objective - Vital Signs Vital signs: Vital Signs Temp 97.7 F 11/26/20 08:00 Pulse 75 11/26/20 10:00 Resp 30 H 11/26/20 10:00 BP 90/62 11/26/20 10:00 Pulse Ox 93 L 11/26/20 10:00 Intake & Output 11/25/20 11/26/20 11/26/20 18:59 06:59 18:59 Intake Total 827.50 900 465 Output Total 600 750 325 Balance 227.50 150 140 Weight 110.6 kg 110.6 kg Intake: IV 827.50 900 225 Mvi, Adult No.4 with Vit 382.50 K 10 ml Trace (Conc-1Ml/ Dose) 1 ml Sodium Acetate 30 meq Sodium Chloride 4Meq/ml Vial 20 meq Potassium Chloride 10 meq Calcium Gluconate 1 gm In Amino Acids 5 %/ Dextrose 20 % 1,000 ml @ 85 mls/hr IV .BY DURATION [facility] Rx#:[id number] Sodium Chloride 0.9% 1, 445 900 225 000 ml @ 75 mls/hr IV . [id number] [facility] Rx#:[id number] Oral 240 Output: Urine 600 750 325 Other: Voiding Method Urinal Urinal Urinal # Voids 1 0 # Bowel Movements 1 - Labs CBC & Chem 7: 11/26/20 04:18 11/26/20 04:18 Labs: Abnormal Lab Results - Last 24 Hours (Table) 11/25/20 11/25/20 11/26/20 Range/Units 16:50 20:45 04:18 WBC 17.4 H (3.8-10.6) k/uL Neutrophils # 16.1 H (1.3-7.7) k/uL Lymphocytes # 0.7 L (1.0-4.8) k/uL D-Dimer (<0.60) mg/L FEU Sodium (137-145) mmol/L BUN (9-20) mg/dL Glucose (74-99) mg/dL POC Glucose (mg/dL) 128 H 139 H (75-99) mg/dL Phosphorus (2.5-4.5) mg/dL ALT (4-49) U/L Lactate Dehydrogenase (313-618) U/L C-Reactive Protein (<1.0) mg/dL Total Protein (6.3-8.2) g/dL Albumin (3.5-5.0) g/dL 11/26/20 11/26/20 Range/Units 04:18 04:18 WBC (3.8-10.6) k/uL Neutrophils # (1.3-7.7) k/uL Lymphocytes # (1.0-4.8) k/uL D-Dimer 6.66 H (<0.60) mg/L FEU Sodium 136 L (137-145) mmol/L BUN 25 H (9-20) mg/dL Glucose 119 H (74-99) mg/dL POC Glucose (mg/dL) (75-99) mg/dL Phosphorus 4.7 H (2.5-4.5) mg/dL ALT 57 H (4-49) U/L Lactate Dehydrogenase 2423 H (313-618) U/L C-Reactive Protein 3.0 H (<1.0) mg/dL Total Protein 5.4 L (6.3-8.2) g/dL Albumin 2.8 L (3.5-5.0) g/dL Microbiology - Last 24 Hours (Table) 11/21/20 15:24 Blood Culture - Preliminary Blood No Growth after 96 hours 11/21/20 15:24 Blood Culture - Preliminary Blood No Growth after 96 hours
[2020-11-26 12:42] LABS: Glucose,Whole Blood 117 mg/dL (75-99)
[2020-11-26] MEDS: BARICITINIB 2 MG TABLET PO SCH (14:23)
[2020-11-26] MEDS: ALBUTEROL HFA INHALER INHALATION PRN (16:13)
[2020-11-26 17:12] LABS: Glucose,Whole Blood 111 mg/dL (75-99)
[2020-11-26] MEDS: MELATONIN 3 MG TABLET PO SCH (20:56)
[2020-11-26] MEDS: MIRTAZAPINE 15 MG TAB PO SCH (20:56)
[2020-11-26 21:02] LABS: Glucose,Whole Blood 171 mg/dL (75-99)
[2020-11-27 04:50] LABS: Basophils % (A) 0 %; Eosinophils # (A) 0.1 k/uL (0-0.7); Eosinophils % (A) 1 %; HCT 43.6 % (39.0-53.0); HGB 14.3 gm/dL (13.0-17.5); Lymphocytes # (A) 0.6 k/uL (1.0-4.8); Lymphocytes % (A) 3 %; MCH 28.7 pg (25.0-35.0); MCHC 32.7 g/dL (31.0-37.0); MCV 87.7 fL (80.0-100.0); Mean Platelet Volume 8.5; Monocytes # (A) 0.7 k/uL (0-1.0); Monocytes % (A) 3 %; Neutrophils % (A) 93 %; Platelet Count 169 k/uL (150-450); RBC 4.98 m/uL (4.30-5.90); RDW 13.3 % (11.5-15.5); WBC 21.5 k/uL (3.8-10.6)
[2020-11-27 05:06] LABS: ALT 54 U/L (4-49); AST 48 U/L (17-59); African American GFR (CKD) >90 (>60 ml/min/1.73 sqM); Albumin 2.7 g/dL (3.5-5.0); Alkaline Phosphatase 142 U/L (38-126); Anion Gap 4 mmol/L; Blood Urea Nitrogen 28 mg/dL (9-20); C Reactive Protein 2.9 mg/dL (<1.0); Calcium 8.6 mg/dL (8.4-10.2); Carbon Dioxide 29 mmol/L (22-30); Chloride 102 mmol/L (98-107); Creatine Kinase 27 U/L (55-170); Glucose 122 mg/dL (74-99); Non-African American GFR(CKD) >90 (>60 ml/min/1.73 sqM); Potassium 4.7 mmol/L (3.5-5.1); Sodium 135 mmol/L (137-145); Total Bilirubin 0.7 mg/dL (0.2-1.3); Total Protein 5.2 g/dL (6.3-8.2)
[2020-11-27] MEDS: INSULIN ASPART (NovoLOG) 100 UNIT/ML VIAL SQ SCH ×4 (06:49→21:02)
[2020-11-27] MEDS: SODIUM CHLORIDE 0.9% 1,000 ML IV SCH ×2 (07:10→14:40)
--- NOTE | 2020-11-27 07:29 | XR ---
EXAMINATION TYPE: XR chest 1V portable DATE OF EXAM: 11/27/2020 COMPARISON: 11/26/2020 INDICATION: Assess lungs TECHNIQUE: Single frontal view of the chest is obtained. FINDINGS: The heart size is slightly prominent. The pulmonary vasculature is prominent. Diffuse increased lung markings are present bilaterally. PICC line enters on the left tip in superior vena cava region IMPRESSION: 1. Borderline cardiomegaly with prominent pulmonary vascular markings. Diffuse increased lung marking s are present. Correlate for congestive heart failure. Atypical pneumonia should be considered.
[2020-11-27] MEDS: ALBUTEROL HFA INHALER INHALATION SCH ×3 (07:48→19:05)
[2020-11-27] MEDS: SYMBICORT 160-4.5 MCG INHALER INHALATION SCH ×2 (07:49→19:18)
[2020-11-27] MEDS: CHOLECALCIFEROL 25 MCG (1000 IU) TABLET PO SCH (08:42)
[2020-11-27] MEDS: ENOXAPARIN 40 MG/0.4 ML SYRINGE SQ SCH (08:42)
[2020-11-27] MEDS: ZINC SULFATE 220 MG CAP PO SCH (08:42)
[2020-11-27] MEDS: DEXAMETHASONE SOD PHOSPHATE 10 MG/ML 1 ML VIAL IV SCH ×2 (08:42→21:03)
[2020-11-27] MEDS: ASCORBIC ACID 500 MG TAB PO SCH ×2 (08:42→21:02)
[2020-11-27] MEDS: ALPRAZolam 0.25 MG TAB PO SCH ×3 (08:42→21:03)
[2020-11-27] MEDS: FLUTICASONE 50MCG/SPRAY NASAL 16GM EA NOSTRIL SCH (08:43)
[2020-11-27] MEDS: DICLOFENAC SODIUM GEL 100 GM TUBE TOPICAL SCH ×4 (08:44→21:03)
--- NOTE | 2020-11-27 10:28 | P.PN ---
Subjective Progress Note Date: 11/27/20 Principal diagnosis: COVID-19 pneumonia On today's evaluation on the 11/15/2020 patient seen in follow-up on medical surgical floor. His O2 saturations are marginal, on 6 L his pulse ox is 90%. Does not seem to be in any acute distress, no increased work of breathing. Occasional cough, nonproductive, patient was outside the window for Remdesivir. He is not vaccinated, S x-ray on admission showed significant patchy infiltrates compatible with his history of COVID-19 infection. Blood pressure has been stable, afebrile. His labs have been reviewed, d-dimer is 0.52, which is 888, CRP is 5.7. Patient is currently on Decadron 6 mg, he is on prophylactic dose Lovenox. Today's evaluation on 11/16/2020 patient seen in follow-up on medical surgical floor, his oxygen demand has increased in the last 24 hours, and his FiO2 was titrated to 10 L, his pulse ox is 91-92%, does not appear to be in any acute respiratory distress, he sitting up in the chair, is awake and alert, oriented 3, his been afebrile overnight, blood pressure is been stable, today's chest x- ray shows patchy perihilar and left lower lobe infiltrate persistence. The patient was started on on Bariticinib, Decadron 6 mg daily, and prophylactic dose of Lovenox. His appetite is poor per nursing staff, he seems to be depressed. Labs have been reviewed, his d-dimer is low at 0.50, his LDH from yesterday was 888, and CRP was 5.7. On 11/17/2020 patient seen in follow-up on the surgical floor. He is currently on Airvo 60 L and FiO2 of 94% in addition to partial nonrebreather mask and his pulse ox is around 90-92%. Patient easily desaturates with any activity. He is currently on his abdomen, he is self proning, and his oxygen does improve when he does that with a pulse ox of 95-96%, he tolerates proning fairly well. Patient is on day 3 of Bariticinib, he is also on Decadron 6 g daily, and prophylactic dose of Lovenox. His chest x-ray today shows mild cardiomegaly with bilateral multifocal opacities with no significant change from most recent chest x-ray. Today's labs have been reviewed, with blood cell count is 10, hemoglobin is 14.9, lymphocyte count is 0.7, d-dimer is 0.93, electrolytes are within normal limits, BUN is 25 creatinine 0.82. Reevaluated today on 11/18/2020, patient remains on airvo , and on nonrebreather mask, his FiO2 is at 90%, and flow is 60 L/m via airvo. Saturation is marginal, however the patient seems to be rather comfortable. His O2 saturation is in the low 90s, desaturates easily with activity. He is doing self groaning, and he does improve with self groaning hence I'm recommending titrating his FiO2 down as his oxygenation improved. BC today is relatively normal d-dimer is up a bit at 0.93. Electrolytes are normal renal profile is normal. Last chest x-ray from 11/17 continues to show bilateral multifocal opacities consistent with COVID-19 infection, not much improvement noted based on the chest x-ray. Patient was reevaluated today on 11/19/2020, remains on the regular medical floor, remains on Airvo plus nonrebreather mask, and his O2 saturation is in the range of 93-96%. Patient is surprisingly comfortable, sitting in a recliner, not in any distress. WBC count is 12 hemoglobin 14.8 electrolytes are normal renal profile is normal, LDH is 566 and his C-reactive protein is 8.1. Slightly bit more elevated compared to yesterday. Patient remains on the COVID- 19 cocktail, remains on Lovenox at 40 mg subcu twice a day, and he is on Decadron, as well as baricitinib Reevaluated today on 11/20/2020, patient is basically about the same, not much different today from yesterday. O2 saturation remains marginal in the low 90s, patient remains on airvo at 90%, and 60 L flow. He also has a nonrebreather mask, and O2 saturation remains marginal at best. Clinically however the patient is about the same, has been adjusting his sleep positions and sometimes he notices significant improvement when he lays on the left side of the right side. Unable to go into a prone position. CBC is relatively normal his d-dimer is a bit up 1.38 his electrolytes are normal renal profile is normal, LDH is 566 C-reactive protein is a bit higher today 8.1. Pro-calcitonin is 0.11 Patient was reevaluated today on 11/21/2020, remains on airvo at maximal flow and FiO2, patient remains on nonrebreather mask, O2 saturation is in the high 80s and low 90s. Patient feels better in the right lateral decubitus position, he is basically overall about the same. He is not demonstrating any significant improvement or any worsening. Remains on all the COVID-19 cocktail, not much changed. D-dimer 3.2 today. Patient was reevaluated today on 11/23/2020, I saw him yesterday and I recommended transfer to the ICU. Remains in the ICU, patient is on BiPAP, IPAP 12 EPAP of 6 and FiO2 is 100%. His O2 saturation is marginal in the low 90s, improves when the patient goes in the left lateral decubitus position. Hence I advised him to stay as often as he can in the left lateral decubitus position. Patient is scheduled to have a PICC line placed for TPN. Has not been eating much, and his interstitial status is poor. Patient remains on baricitinib, and he is on the rest of the COVID-19 cocktail. Today's d-dimer is 2.46. Clinicall y however and surprisingly the patient is feeling comfortable, does not seem to be in distress. WBC count is 12 hemoglobin is 15 electrolytes are normal renal profile is normal, inflammatory markers are high LDH of 1691 and C-reactive protein is 13.4. Pro-calcitonin remains low at 0.09. Reevaluated today on 11/24/2020, patient remains in the ICU, transitioned yesterday from BiPAP to airvo at 60 L flow, and 90% FiO2. His O2 saturation is marginal, patient did use BiPAP last night. He went off BiPAP at 5 AM this morning. Remains on IV fluid at 75 mL/h, he is also on TPN via PICC line. Over all the patient is holding nicely, remains on Decadron twice a day, is also on baricitinib seems to be tolerating both well. Patient is considered marginal at best, I'm not seeing significant improvement and I'm not seeing worsening at this point. WBC count today is noted to be high at 16.7. Electrolytes are normal renal profile is normal, his last pro-calcitonin 2 days ago was 0.09, relatively unremarkable. Reevaluated today on 11/25/2020, patient remains in the ICU, alternating between airvo and BiPAP, nonetheless he remains on relatively high FiO2 and high flow if clinically the patient is about the same, his O2 saturation remains marginal in the high 80s and low 90s. Patient remains on TPN which I plan to discontinue since the patient is eating better today, he feels a bit better today, chest x- ray is basically about the same. Patient remains on the COVID-19 cocktail, on multiple drugs as listed below. Respiratory BC count is 15.1 hemoglobin 14.3 d- dimer is 5.48, patient remains on Lovenox at 40 mg subcu twice a day. His renal profile is normal his electrolytes are normal, LDH is 2086 and C-reactive protein is 3.6. His LDH is higher than yesterday, his C-reactive protein is lower, and his d-dimer is higher. On 11/26/2020 patient seen in follow-up in intensive care unit. He is awake and alert, oriented 3, he is currently off BiPAP, and she is on Airvo at 60 L and FiO2 of 90%, and his pulse ox is around 84-85%. She does wear BiPAP support with pressure of 12 and 6 and FiO2 of 100%, and usually his O2 saturations are better on BiPAP support and run at 90-92%. he does come off the BiPAP to eat meals. Seems fairly comfortable, despite low O2 saturations. Afebrile, hemodynamically has been stable. He is on IV 0.9 normal saline at a rate of 75 ML per hour, no other drips, he continues on Baricitinib 4 mg daily, since 11/15/2020. He remains on Decadron 6 mg twice daily, and Lovenox 40 mg twice daily. Today's chest x-ray has been reviewed showing patchy infiltrates throughout both lung felix, without significant change since yesterday. Today's labs have been reviewed, his d-dimer is at 6.6, slightly increased from yesterday from 5.48. His electrolytes are unremarkable, B1 is 25 creatinine 0.67, LDH has increased to 2423, and CRP actually came down and is down to 3, pro-calcitonin level was repeated and came back negative at 0.09. White blood cell count is 17.4 on today's labs, lymphocyte count is 0.7. Blood cultures have shown no growth. The patient is seen today 11/27/2020 in follow-up in the intensive care unit. He is currently sitting up in bed. Awake and alert in mild respiratory distress. He is currently on theAirVo high flow oxygen device for meals at 60 L/m and 90% FiO2. He's been mainly BiPAP dependent 02/11 at 100% FiO2 to maintain O2 saturations 88-92%. He has 0.9 normal saline at 75 ML's per hour. He is eating well still. Chest x-ray is reviewed and continues to show diffuse increased lung markings. Prominent pulmonary vascular congestion. Blood cultures revealed no growth. White count 21.5. Hemoglobin 14.3. Lymphocytes 0.6. D-dimer 7.29. Sodium 135. Potassium 4.7. Creatinine 0.74. AST 48, ALT 54. C-reactive protein 2.9. Pro-calcitonin 0.09. He remains on Baricitinib, Decadron, Lovenox, vitamin supplements. Dopplers of the lower extremities were negative for DVT bilaterally. Objective - Vital Signs Vital signs: Vital Signs Temp 98 F 11/27/20 08:00 Pulse 90 11/27/20 10:00 Resp 31 H 11/27/20 10:00 BP 111/71 11/27/20 10:00 Pulse Ox 83 L 11/27/20 10:00 Intake & Output 11/26/20 11/27/20 11/27/20 18:59 06:59 18:59 Intake Total 1405 1140 660 Output Total 950 900 Balance 455 240 660 Weight 110.6 kg Intake: IV 825 900 300 Sodium Chloride 0.9% 1, 825 900 300 000 ml @ 75 mls/hr IV . [id number] [facility] Rx#:[id number] Oral 580 240 360 Output: Urine 950 900 Other: Voiding Method Urinal Urinal Urinal - Exam GENERAL EXAM: Alert, very pleasant, 60-year-old male patient, on AirVo at 60 L and FiO2 of 90%, he alternates between BiPAP at pressure of 12/6 and FiO2 of 100% HEAD: Normocephalic/atraumatic. EYES: Normal reaction of pupils, equal size. Conjunctiva pink, sclera white. NOSE: Clear with pink turbinates. THROAT: No erythema or exudates. NECK: No masses, no JVD, no thyroid enlargement, no adenopathy. CHEST: No chest wall deformity. Symmetrical expansion. LUNGS: Equal air entry with crackles in the bilateral posterior bases CVS: Regular rate and rhythm, normal S1 and S2, no gallops, no murmurs, no rubs ABDOMEN: Soft, nontender. No hepatosplenomegaly, normal bowel sounds, no guarding or rigidity. EXTREMITIES: No clubbing, no edema, no cyanosis, 2+ pulses and upper and lower extremities. MUSCULOSKELETAL: Muscle strength and tone normal. SPINE: No scoliosis or deformity SKIN: No rashes CENTRAL NERVOUS SYSTEM: No focal deficits, tone is normal in all 4 extremities. PSYCHIATRIC: Alert and oriented -3. Appropriate affect. Intact judgment and insight. - Labs CBC & Chem 7: 11/27/20 03:50 11/27/20 03:50 Labs: Abnormal Lab Results - Last 24 Hours (Table) 11/26/20 11/26/20 11/26/20 Range/Units 12:40 17:10 20:51 WBC (3.8-10.6) k/uL Neutrophils # (1.3-7.7) k/uL Lymphocytes # (1.0-4.8) k/uL D-Dimer (<0.60) mg/L FEU Sodium (137-145) mmol/L BUN (9-20) mg/dL Glucose (74-99) mg/dL POC Glucose (mg/dL) 117 H 111 H 171 H (75-99) mg/dL ALT (4-49) U/L Alkaline Phosphatase (38-126) U/L Creatine Kinase (55-170) U/L C-Reactive Protein (<1.0) mg/dL Total Protein (6.3-8.2) g/dL Albumin (3.5-5.0) g/dL 11/27/20 11/27/20 11/27/20 Range/Units 03:50 03:50 03:50 WBC 21.5 H (3.8-10.6) k/uL Neutrophils # 20.0 H (1.3-7.7) k/uL Lymphocytes # 0.6 L (1.0-4.8) k/uL D-Dimer 7.29 H (<0.60) mg/L FEU Sodium 135 L (137-145) mmol/L BUN 28 H (9-20) mg/dL Glucose 122 H (74-99) mg/dL POC Glucose (mg/dL) (75-99) mg/dL ALT 54 H (4-49) U/L Alkaline Phosphatase 142 H (38-126) U/L Creatine Kinase 27 L (55-170) U/L C-Reactive Protein 2.9 H (<1.0) mg/dL Total Protein 5.2 L (6.3-8.2) g/dL Albumin 2.7 L (3.5-5.0) g/dL Microbiology - Last 24 Hours (Table) 11/21/20 15:24 Blood Culture - Preliminary Blood No Growth after 120 hours 11/21/20 15:24 Blood Culture - Preliminary Blood No Growth after 120 hours Assessment and Plan Assessment: 1 Acute Covid 19 related pneumonia. The patient became symptomatic approximately 8 days prior to arrival. Presented with worsening shortness of breath and bilateral pneumonia. Patient is not vaccinated. The patient had not received any outpatient treatments for Covid 19 infection. Diagnosis est ablished during this current admission. Started on Bariticinib on 11/15/2020 in view of worsening hypoxic respiratory failure. Patient was outside the window for Remdesivir 2 Acute hypoxic respiratory failure which has significantly progressed since admission, and patient is currently on Airvo at 60 L and FiO2 of 90% for meals but mainly alternating with BiPAP /6 at 100%. He was transferred to the intensive care unit on 11/22/2020 3 Obesity with a BMI of 37. 4 Increased inflammatory markers related to acute COVID-19 pneumonia 5 Increased d-dimer, related to viral pneumonia, currently on Lovenox 40 mg daily, Dopplers of the lower extremity negative Plan: The patient was seen and evaluated by Dr. Cochran Chest x-ray and labs reviewed Continue Lovenox, Decadron, Baricitinib, vitamin supplements Titrate the FiO2 as tolerated We will continue to follow and make further recommendations based on his clinical status Critical care time 35 minutes I, the cosigning physician, performed a history & physical examination of the patient. Lungs sounds with bilateral posterior bases. Maintaining good O2 saturations in the 90s on AirVo high flow oxygen at 60 L/m at 90% FiO2, alternating with BiPAP 12/6 and 100% FiO2. I discussed the assessment and plan of care with my nurse practitioner, Roseanne Carey. I attest to the above note as dictated by her.
[2020-11-27 10:54] LABS: Ferritin 1478.7 ng/mL (22.0-322.0)
[2020-11-27] MEDS: BARICITINIB 2 MG TABLET PO SCH (14:33)
[2020-11-27] MEDS: ACETAMINOPHEN TAB 325 MG TAB PO PRN (14:47)
--- NOTE | 2020-11-27 15:01 | P.PN ---
Subjective Progress Note Date: 11/27/20 HISTORY OF PRESENT ILLNESS This is a pleasant 60-year-old gentleman patient of Dr. Ridge Christina. He doesn't see a physician often and does not note any medical diseases, except for obesity. He comes seen secondary to fever and chills, cough, starting December 06 first, along with muscle aches, lack of appetite and diarrhea. he was tested for call bid November 08, which required at week of reporting, subsequently was sent to emergency room secondary to worsening symptoms, including dyspnea on exertion, shortness of breath and worsening cough without hemoptysis. Fever, sh ortness of breath lingers, no treatment given to him prior to this admission. The is vaccinated, but the patient is not. He does not believe in vaccines at that time. He comes in the emergency room, with hypoxemia, with very minimal conversational dyspnea, chest x-ray, shows pulmonary infiltrate consistent with Covid pneumonia, oxygen currently is at 6 L nasal cannula, d-dimer was 0.6, LFTs are minimally elevated, 64 AST, lactic acid 2.0 sodium 132, creatinine of 0.9, glucose of 122, LDH of 888, CRP of 5.7. Urine protein noted, without hematuria or proteinuria. Covid was again retested 11/14, PCR is positive. Consult to Dr. Eduardo and pulmonary,, 11/16: Patient is currently on oxygen at 6 L nasal cannula increased to 7 L with humidified oxygen. Patient seen and followed by pulmonary medicine and has been started on Bariticinib, Decadron 6 mg daily, and prophylactic dose of Lovenox. He is reaching 1750 on incentive spirometry. Patient did have episode of diarrhea yesterday, none today and complains of decreased appetite. Patient complains of nasal congestion and Flonase added. 11/17: Patient had difficulty with oxygenation during the night and this morning transitioned to Airfo and partial nonrebreather. Pulse ox is currently running 90-92%, patient is prone. He has been afebrile, heart rate 88, blood pressure 104/63. Repeat d-dimer is elevated at 0.93. Blood sugar 167. C-reactive protein increased to 5.3. AST is 83 and ALT 51. Blood culture remains with no growth after 48 hours. Repeat chest x-ray reveals mild cardiomegaly with bilateral multifocal opacities consistent with Covid 19 infection. No significant change from most recent x-ray. Albuterol inhaler and Symbicort inhaler added. 11/18: Patient is currently on AirVo and nonrebreather with pulse ox of 93%. He's been afebrile, heart rate 85, blood pressure 103/68. Blood culture no growth at 72 hours 2 specimens. Plan to continue proning. Repeat laboratory studies ordered for tomorrow including inflammatory markers. The patient is having difficulty sleeping and melatonin added. Lovenox increased to twice daily dosing. 11/19: Patient remains in isolation. He is on AirVO plus nonrebreather with pulse ox of 93%. He has been afebrile, heart rate 85, blood pressure 122/69. Patient is found sitting in recliner and encouraged to prone when he is able to. Repeat blood work reveals WBC 12, hemoglobin 14.8, platelet count 282. D-dimer is 1.38. Other blood work is pending. Patient is continued on Decadron, vitamin supplements, Lovenox. He is on day #07/20 of Baricitinib. 11/20: Patient has been afebrile, heart rate 71, blood pressure 107/71, pulse ox 88-93% on AirVo plus nonrebreather. Patient seems to be depressed and frustrated with coarse. Noted that he started on Xanax yesterday by pulmonary. We will add and Remeron 7.5 mg at bedtime. Hemoglobin A1c came back at 6.4. Patient is encouraged to use incentive spirometry, increase activity, prone. Discussed CODE STATUS with patient and he wishes to be a full code. 11/21: Patient will pulse ox of 83% as he was on Airvo only and once nonrebreather was placed she went up to 89%. Patient is not eating much. He has been encouraged to take protein supplement, increase activity and prone but patient does not seem motivated. He was started on Remeron last night which will hopefully help with his mood and appetite. He has continued on Lovenox, dexamethasone, Baricitinib #09/19 repeat blood work reveals WBC 14.3. D-dimer increasing to 3.2. Electrolytes normal, creatinine 0.76. LDH is high at 1476, C-reactive protein stable 6.6. 11/22: Patient continues to be on airflow and nonrebreather and with minimal movement, pulse ox drops down to 82%, otherwise patient is maintaining 92-94%. One dose of IV Lasix ordered for today. Temperature max yesterday afternoon was 101.2. Heart rate in the 70s and 80s. Blood pressure 110/59. Urinalysis was negative for infection. Repeat blood work will be ordered for tomorrow. 11/23: Patient Was moved into ICU overnight. He has been on BiPAP through the night and pulse oxing 95% recently on his side, currently sitting on the edge of the bed pulse oxing 90%, with talking he drops to 83%. He is scheduled for PICC line insertion and plan to start TPN today. Patient has been afebrile, heart rate in the 60s, respiratory rate 28. WBC 12.0, hemoglobin 15, platelet count 351. Lymphocytes 11.1. D-dimer 2.46. Sodium 136, otherwise electrolytes are normal. BUN 30 creatinine 0.7. Blood sugar 128. Magnesium 2.5. Phosphorus 5.5. LDH 1691. C-reactive protein 13.4. Total protein 5.6. Blood cultures remain with no growth. Repeat chest x-ray this morning reveals stable diffuse bilateral infiltrates. Patient is on Baricitinib 10/20. Pulmonary has increased frequency of dexamethasone to twice daily and changed to IV6 mg IV twice daily. 11/24: Patient remain in the ICU, still on BiPAP with pulse ox is improving at this point. Continue dexamethasone and Baricitinib 11/20, patient had full meal this morning his TPN will be suspended after today. Patient will remain in the ICU at least for the next 48 hours. 11/25: Remain in the ICU still on BiPAP but his pulse ox is slightly bit better he still on dexamethasone and Baricitinib 12/20 seems to do slightly but better was agreed by intensive care studies TPN, patient oral intake is slightly but better and had slight improvement compared to yesterday. Surprisingly his marker went up slightly bit specially his LDH up to 2086 with C-reactive protein 3.6 kidney function remained good white blood cell climb up to 15.1 specially been on steroid. Chest x-ray still shows diffuse bilateral interstitial infiltrate and patchy opacification persistent but there is a slight improvement in the variation in the left lower lobe compared to few days earlier. 11/26: Patient remain on BiPAP with 100% oxygen to keep his pulse ox around 92 percentile, his d-dimer continue to be quite bit elevated today is having Doppler of the lower extremity but notes CT at this point. Remain on Symbicort, and albuterol HFA, his white blood cell is down 17,000, blood sugars better control. Chest x-ray still showed patchy infiltrate throughout both lung felix persistent didn't change. Patient had mild anxiety with no pain currently. 11/27: Patient remains in the intensive care unit. He is placed on airflow for eating and pulse ox drops to the 7083 percent range. Pulse ox 90-93% on100% BiPAP. He is afebrile, heart rate in the 70s, respiratory rate 27 and 32, blood pressure 102/71. WBC 21.5, lymphocytes 0.6. D-dimer 7.29. Blood sugars running between 111 and 171. Ferritin level [id number]. ALT 54, alkaline phosphatase 152. CK 27, C-reactive protein 2.9. Repeat chest x-ray reveals borderline cardiomegaly with prominent pulmonary vascular markings. Diffuse increased lung markings are present. Correlate for heart failure. Atypical pneumonia should be considered. Lower extremity ultrasound negative for DVT bilaterally. REVIEW OF SYSTEMS Constitutional: No fever, no chills, no night sweats. No weight change. Reports weakness, reports fatigue reports lethargy. Reports daytime sleepiness. EENT: No headache. No blurred vision or double vision, no loss of vision. No loss of Hearing,no dizziness. No nasal drainage or congestion. No epistaxis. No sore throat. Lungs Reported shortness of breath, reported cough, no sputum production. No wheezing. Dyspnea with minimal exertion. dyspnea at rest. Cardiovascular: No chest pain, no lower extremity edema. No palpitations. No paroxysmal nocturnal dyspnea. No orthopnea. No lightheadedness or dizziness. No syncopal episodes. Abdominal: No abdominal pain. No nausea, vomiting. Reports diarrhea. No constipation. No bloody or tarry stools. Reports loss of appetite. Genitourinary: No dysuria, no increased frequency, no urgency. No urinary retention. Musculoskeletal: No myalgias. Generalized muscle weakness, no gait dysfunction, no frequent falls. No back pain. No neck pain. Integumentary: No wounds, no lesions. No rash or pruritus. No unusual bruising. Neurologic: No aphasia. No facial droop. No change in mentation. No head injury. No headache. No paresthesia. Psychiatric: No depression. No anxiety. No mood swings. Insomnia. Endocrine: No abnormal blood sugars. PHYSICAL EXAMINATION Gen: This is a 60-year-old obese male. Patient developed significant shortness of breath with minimal activity. He is resting in recliner with B iPAP. HEENT: Head is atraumatic, normocephalic. Pupils equal, round. Sclerae is anicteric. NECK: Supple. No JVD. No lymphadenopathy. No thyromegaly. LUNGS: Diminished breath sounds. No wheezes or rhonchi. Positive retractions. noted accessory muscle usage. HEART: Regular rate and rhythm. No murmur. ABDOMEN: obese. Soft. Bowel sounds are present. No masses. No tenderness. EXTREMITIES: No pedal edema. No calf tenderness. NEUROLOGICAL: Patient is awake, alert and oriented x3. Cranial nerves 2 through 12 are grossly intact. ASSESSMENT AND PLAN 1. Acute respiratory failure: Secondary to COVID-19, remain on BiPAP with 100% slow try to keep his pulse ox as close as possible to 90. Patient d-dimer is elevated is having Doppler of the lower extremity whether he should have another CT or not still be determined by pulmonary. 2. Sepsis (POA) secondary to COVID-19 pneumonia, with acute hypoxemic respiratory failure, diagnosis was of 11/08/2020, symptoms started December 06 first. Patient is not vaccinated, and since being seen in consultation by pulmonary, he is on dexamethasone 6 mg IV twice daily, Lovenox 40 mg twice daily, continue Baricitinib 4 mg oral daily he is on dose 13 out of 14, continue albuterol inhaler, Symbicort inhaler, prone positioning. Continue O2 via BiPAP is 100% O2 3. Moderate protein calorie malnutrition secondary to poor oral intake. Patient is off TPN his doing better with oral intake. 4. DVT prophylaxis Lovenox Increased frequency to twice daily. Doppler of lower extremity negative for DVT bilaterally. 5. GI prophylaxis Pepcid no abdominal pain. 6. BPH without LUTs no sign of urinary retention. 7. Proteinuria, unknown cause, 8. Dymetabolic syndrome, monitor for hyperglycemia, A1c 6.4k. NovoLog scale before meals and at bedtime. CODE Status: Full code Prognosis: Still guarded. Impression and plan of care have been directed as dictated by the signing physician. Sanam Vaelntine nurse practitioner acting as scribe for signing physician. Objective - Vital Signs Vital signs: Vital Signs Temp 98 F 11/27/20 08:00 Pulse 90 11/27/20 10:00 Resp 31 H 11/27/20 10:00 BP 111/71 11/27/20 10:00 Pulse Ox 83 L 11/27/20 10:00 Intake & Output 11/26/20 11/27/20 11/27/20 18:59 06:59 18:59 Intake Total 1405 1140 660 Output Total 950 900 Balance 455 240 660 Weight 110.6 kg Intake: IV 825 900 300 Sodium Chloride 0.9% 1, 825 900 300 000 ml @ 75 mls/hr IV . [id number] Rx#:[id number] Oral 580 240 360 Output: Urine 950 900 Other: Voiding Method Urinal Urinal Urinal - Labs CBC & Chem 7: 11/27/20 03:50 11/27/20 03:50 Labs: Abnormal Lab Results - Last 24 Hours (Table) 11/26/20 11/26/20 11/26/20 Range/Units 12:40 17:10 20:51 WBC (3.8-10.6) k/uL Neutrophils # (1.3-7.7) k/uL Lymphocytes # (1.0-4.8) k/uL D-Dimer (<0.60) mg/L FEU Sodium (137-145) mmol/L BUN (9-20) mg/dL Glucose (74-99) mg/dL POC Glucose (mg/dL) 117 H 111 H 171 H (75-99) mg/dL Ferritin (22.0-322.0) ng/mL ALT (4-49) U/L Alkaline Phosphatase (38-126) U/L Creatine Kinase (55-170) U/L C-Reactive Protein (<1.0) mg/dL Total Protein (6.3-8.2) g/dL Albumin (3.5-5.0) g/dL 11/27/20 11/27/20 11/27/20 Range/Units 03:50 03:50 03:50 WBC 21.5 H (3.8-10.6) k/uL Neutrophils # 20.0 H (1.3-7.7) k/uL Lymphocytes # 0.6 L (1.0-4.8) k/uL D-Dimer 7.29 H (<0.60) mg/L FEU Sodium 135 L (137-145) mmol/L BUN 28 H (9-20) mg/dL Glucose 122 H (74-99) mg/dL POC Glucose (mg/dL) (75-99) mg/dL Ferritin 1478.7 H (22.0-322.0) ng/mL ALT 54 H (4-49) U/L Alkaline Phosphatase 142 H (38-126) U/L Creatine Kinase 27 L (55-170) U/L C-Reactive Protein 2.9 H (<1.0) mg/dL Total Protein 5.2 L (6.3-8.2) g/dL Albumin 2.7 L (3.5-5.0) g/dL Microbiology - Last 24 Hours (Table) 11/21/20 15:24 Blood Culture - Preliminary Blood No Growth after 120 hours 11/21/20 15:24 Blood Culture - Preliminary Blood No Growth after 120 hours
[2020-11-27 17:01] LABS: Glucose,Whole Blood 188 mg/dL (75-99)
[2020-11-27 20:03] LABS: Glucose,Whole Blood 93 mg/dL (75-99)
[2020-11-27] MEDS: MELATONIN 3 MG TABLET PO SCH (21:02)
[2020-11-27] MEDS: MIRTAZAPINE 15 MG TAB PO SCH (21:03)
[2020-11-28 04:07] LABS: Basophils # (A) 0.1 k/uL (0-0.2); Basophils % (A) 0 %; Eosinophils # (A) 0.2 k/uL (0-0.7); Eosinophils % (A) 1 %; HCT 44.9 % (39.0-53.0); HGB 14.8 gm/dL (13.0-17.5); Lymphocytes # (A) 0.6 k/uL (1.0-4.8); Lymphocytes % (A) 3 %; MCH 29.1 pg (25.0-35.0); MCHC 32.9 g/dL (31.0-37.0); MCV 88.5 fL (80.0-100.0); Mean Platelet Volume 8.6; Monocytes # (A) 0.5 k/uL (0-1.0); Monocytes % (A) 2 %; Neutrophils % (A) 93 %; Platelet Count 130 k/uL (150-450); RBC 5.07 m/uL (4.30-5.90); RDW 13.2 % (11.5-15.5); WBC 20.4 k/uL (3.8-10.6)
[2020-11-28 04:18] LABS: ALT 55 U/L (4-49); AST 55 U/L (17-59); African American GFR (CKD) >90 (>60 ml/min/1.73 sqM); Albumin 2.8 g/dL (3.5-5.0); Alkaline Phosphatase 151 U/L (38-126); Anion Gap 4 mmol/L; Blood Urea Nitrogen 31 mg/dL (9-20); C Reactive Protein 3.3 mg/dL (<1.0); Calcium 8.6 mg/dL (8.4-10.2); Carbon Dioxide 29 mmol/L (22-30); Chloride 101 mmol/L (98-107); Creatine Kinase 57 U/L (55-170); Glucose 138 mg/dL (74-99); Non-African American GFR(CKD) >90 (>60 ml/min/1.73 sqM); Potassium 4.8 mmol/L (3.5-5.1); Sodium 134 mmol/L (137-145); Total Bilirubin 0.7 mg/dL (0.2-1.3); Total Protein 5.3 g/dL (6.3-8.2)
[2020-11-28 04:29] LABS: LDH 2934 U/L (313-618)
[2020-11-28] MEDS: INSULIN ASPART (NovoLOG) 100 UNIT/ML VIAL SQ SCH ×4 (06:36→20:36)
[2020-11-28] MEDS: SODIUM CHLORIDE 0.9% 1,000 ML IV SCH ×2 (07:45→20:36)
[2020-11-28] MEDS: DICLOFENAC SODIUM GEL 100 GM TUBE TOPICAL SCH ×4 (07:46→20:37)
[2020-11-28] MEDS: CHOLECALCIFEROL 25 MCG (1000 IU) TABLET PO SCH (07:46)
[2020-11-28] MEDS: ENOXAPARIN 40 MG/0.4 ML SYRINGE SQ SCH (07:46)
[2020-11-28] MEDS: ALPRAZolam 0.25 MG TAB PO SCH ×3 (07:46→20:34)
[2020-11-28] MEDS: ZINC SULFATE 220 MG CAP PO SCH (07:46)
[2020-11-28] MEDS: ASCORBIC ACID 500 MG TAB PO SCH ×2 (07:46→20:34)
[2020-11-28] MEDS: FLUTICASONE 50MCG/SPRAY NASAL 16GM EA NOSTRIL SCH (07:47)
[2020-11-28] MEDS: DEXAMETHASONE SOD PHOSPHATE 10 MG/ML 1 ML VIAL IV SCH (07:48)
[2020-11-28] MEDS ORDERED: FUROSEMIDE 10 MG/ML 4 ML VIAL IV STA (07:53)
[2020-11-28] MEDS ORDERED: FUROSEMIDE 10 MG/ML 4 ML VIAL ONE (07:57)
[2020-11-28] MEDS: ALBUTEROL HFA INHALER INHALATION SCH ×3 (07:57→19:32)
[2020-11-28] MEDS: SYMBICORT 160-4.5 MCG INHALER INHALATION SCH ×2 (07:58→19:33)
--- NOTE | 2020-11-28 09:07 | XR ---
EXAMINATION TYPE: XR chest 1V portable DATE OF EXAM: 11/28/2020 Comparison: 11/27/2020 Clinical History: 60 year-old male shortness of breath, assess lungs Findings: Left PICC tip at the mid to lower SVC. Heart upper limits of normal in size. Diffuse interstitial and patchy bilateral diffuse opacities persist. There may be slight improving aeration in the left lower lung but otherwise without any significant change. No sizable pleural effusion. Impression: Diffuse interstitial and patchy bilateral infiltrates. Possible slight improvement at the left base b ut otherwise, unchanged.
--- NOTE | 2020-11-28 10:30 | P.PN ---
Subjective Progress Note Date: 11/28/20 Principal diagnosis: COVID-19 pneumonia On today's evaluation on the 11/15/2020 patient seen in follow-up on medical surgical floor. His O2 saturations are marginal, on 6 L his pulse ox is 90%. Does not seem to be in any acute distress, no increased work of breathing. Occasional cough, nonproductive, patient was outside the window for Remdesivir. He is not vaccinated, S x-ray on admission showed significant patchy infiltrates compatible with his history of COVID-19 infection. Blood pressure has been stable, afebrile. His labs have been reviewed, d-dimer is 0.52, which is 888, CRP is 5.7. Patient is currently on Decadron 6 mg, he is on prophylactic dose Lovenox. Today's evaluation on 11/16/2020 patient seen in follow-up on medical surgical floor, his oxygen demand has increased in the last 24 hours, and his FiO2 was titrated to 10 L, his pulse ox is 91-92%, does not appear to be in any acute respiratory distress, he sitting up in the chair, is awake and alert, oriented 3, his been afebrile overnight, blood pressure is been stable, today's chest x- ray shows patchy perihilar and left lower lobe infiltrate persistence. The patient was started on on Bariticinib, Decadron 6 mg daily, and prophylactic dose of Lovenox. His appetite is poor per nursing staff, he seems to be depressed. Labs have been reviewed, his d-dimer is low at 0.50, his LDH from yesterday was 888, and CRP was 5.7. On 11/17/2020 patient seen in follow-up on the surgical floor. He is currently on Airvo 60 L and FiO2 of 94% in addition to partial nonrebreather mask and his pulse ox is around 90-92%. Patient easily desaturates with any activity. He is currently on his abdomen, he is self proning, and his oxygen does improve when he does that with a pulse ox of 95-96%, he tolerates proning fairly well. Patient is on day 3 of Bariticinib, he is also on Decadron 6 g daily, and prophylactic dose of Lovenox. His chest x-ray today shows mild cardiomegaly with bilateral multifocal opacities with no significant change from most recent chest x-ray. Today's labs have been reviewed, with blood cell count is 10, hemoglobin is 14.9, lymphocyte count is 0.7, d-dimer is 0.93, electrolytes are within normal limits, BUN is 25 creatinine 0.82. Reevaluated today on 11/18/2020, patient remains on airvo , and on nonrebreather mask, his FiO2 is at 90%, and flow is 60 L/m via airvo. Saturation is marginal, however the patient seems to be rather comfortable. His O2 saturation is in the low 90s, desaturates easily with activity. He is doing self groaning, and he does improve with self groaning hence I'm recommending titrating his FiO2 down as his oxygenation improved. BC today is relatively normal d-dimer is up a bit at 0.93. Electrolytes are normal renal profile is normal. Last chest x-ray from 11/17 continues to show bilateral multifocal opacities consistent with COVID-19 infection, not much improvement noted based on the chest x-ray. Patient was reevaluated today on 11/19/2020, remains on the regular medical floor, remains on Airvo plus nonrebreather mask, and his O2 saturation is in the range of 93-96%. Patient is surprisingly comfortable, sitting in a recliner, not in any distress. WBC count is 12 hemoglobin 14.8 electrolytes are normal renal profile is normal, LDH is 566 and his C-reactive protein is 8.1. Slightly bit more elevated compared to yesterday. Patient remains on the COVID- 19 cocktail, remains on Lovenox at 40 mg subcu twice a day, and he is on Decadron, as well as baricitinib Reevaluated today on 11/20/2020, patient is basically about the same, not much different today from yesterday. O2 saturation remains marginal in the low 90s, patient remains on airvo at 90%, and 60 L flow. He also has a nonrebreather mask, and O2 saturation remains marginal at best. Clinically however the patient is about the same, has been adjusting his sleep positions and sometimes he notices significant improvement when he lays on the left side of the right side. Unable to go into a prone position. CBC is relatively normal his d-dimer is a bit up 1.38 his electrolytes are normal renal profile is normal, LDH is 566 C-reactive protein is a bit higher today 8.1. Pro-calcitonin is 0.11 Patient was reevaluated today on 11/21/2020, remains on airvo at maximal flow and FiO2, patient remains on nonrebreather mask, O2 saturation is in the high 80s and low 90s. Patient feels better in the right lateral decubitus position, he is basically overall about the same. He is not demonstrating any significant improvement or any worsening. Remains on all the COVID-19 cocktail, not much changed. D-dimer 3.2 today. Patient was reevaluated today on 11/23/2020, I saw him yesterday and I recommended transfer to the ICU. Remains in the ICU, patient is on BiPAP, IPAP 12 EPAP of 6 and FiO2 is 100%. His O2 saturation is marginal in the low 90s, improves when the patient goes in the left lateral decubitus position. Hence I advised him to stay as often as he can in the left lateral decubitus position. Patient is scheduled to have a PICC line placed for TPN. Has not been eating much, and his interstitial status is poor. Patient remains on baricitinib, and he is on the rest of the COVID-19 cocktail. Today's d-dimer is 2.46. Clinicall y however and surprisingly the patient is feeling comfortable, does not seem to be in distress. WBC count is 12 hemoglobin is 15 electrolytes are normal renal profile is normal, inflammatory markers are high LDH of 1691 and C-reactive protein is 13.4. Pro-calcitonin remains low at 0.09. Reevaluated today on 11/24/2020, patient remains in the ICU, transitioned yesterday from BiPAP to airvo at 60 L flow, and 90% FiO2. His O2 saturation is marginal, patient did use BiPAP last night. He went off BiPAP at 5 AM this morning. Remains on IV fluid at 75 mL/h, he is also on TPN via PICC line. Over all the patient is holding nicely, remains on Decadron twice a day, is also on baricitinib seems to be tolerating both well. Patient is considered marginal at best, I'm not seeing significant improvement and I'm not seeing worsening at this point. WBC count today is noted to be high at 16.7. Electrolytes are normal renal profile is normal, his last pro-calcitonin 2 days ago was 0.09, relatively unremarkable. Reevaluated today on 11/25/2020, patient remains in the ICU, alternating between airvo and BiPAP, nonetheless he remains on relatively high FiO2 and high flow if clinically the patient is about the same, his O2 saturation remains marginal in the high 80s and low 90s. Patient remains on TPN which I plan to discontinue since the patient is eating better today, he feels a bit better today, chest x- ray is basically about the same. Patient remains on the COVID-19 cocktail, on multiple drugs as listed below. Respiratory BC count is 15.1 hemoglobin 14.3 d- dimer is 5.48, patient remains on Lovenox at 40 mg subcu twice a day. His renal profile is normal his electrolytes are normal, LDH is 2086 and C-reactive protein is 3.6. His LDH is higher than yesterday, his C-reactive protein is lower, and his d-dimer is higher. On 11/26/2020 patient seen in follow-up in intensive care unit. He is awake and alert, oriented 3, he is currently off BiPAP, and she is on Airvo at 60 L and FiO2 of 90%, and his pulse ox is around 84-85%. She does wear BiPAP support with pressure of 12 and 6 and FiO2 of 100%, and usually his O2 saturations are better on BiPAP support and run at 90-92%. he does come off the BiPAP to eat meals. Seems fairly comfortable, despite low O2 saturations. Afebrile, hemodynamically has been stable. He is on IV 0.9 normal saline at a rate of 75 ML per hour, no other drips, he continues on Baricitinib 4 mg daily, since 11/15/2020. He remains on Decadron 6 mg twice daily, and Lovenox 40 mg twice daily. Today's chest x-ray has been reviewed showing patchy infiltrates throughout both lung felix, without significant change since yesterday. Today's labs have been reviewed, his d-dimer is at 6.6, slightly increased from yesterday from 5.48. His electrolytes are unremarkable, B1 is 25 creatinine 0.67, LDH has increased to 2423, and CRP actually came down and is down to 3, pro-calcitonin level was repeated and came back negative at 0.09. White blood cell count is 17.4 on today's labs, lymphocyte count is 0.7. Blood cultures have shown no growth. The patient is seen today 11/27/2020 in follow-up in the intensive care unit. He is currently sitting up in bed. Awake and alert in mild respiratory distress. He is currently on theAirVo high flow oxygen device for meals at 60 L/m and 90% FiO2. He's been mainly BiPAP dependent 12/6 at 100% FiO2 to maintain O2 saturations 88-92%. He has 0.9 normal saline at 75 ML's per hour. He is eating well still. Chest x-ray is reviewed and continues to show diffuse increased lung markings. Prominent pulmonary vascular congestion. Blood cultures revealed no growth. White count 21.5. Hemoglobin 14.3. Lymphocytes 0.6. D-dimer 7.29. Sodium 135. Potassium 4.7. Creatinine 0.74. AST 48, ALT 54. C-reactive protein 2.9. Pro-calcitonin 0.09. He remains on Baricitinib, Decadron, Lovenox, vitamin supplements. Dopplers of the lower extremities were negative for DVT bilaterally. The patient is seen today 11/28/2020 in follow-up in the intensive care unit. He is currently sitting up in a chair at the bedside. Awake and alert. Still requiring BiPAP 12/6 and 100% FiO2 to maintain O2 saturations in the high 80s low 90s. He is alternating with the AirVo at 60 L/m and 90% FiO2 for meals. Chest x-ray continues to revealed diffuse interstitial and patchy bilateral infiltrates. Some slight improvement in the left base but otherwise unchanged. White count 20.4. Hemoglobin 14.8. Platelets 130. Sodium 134. Potassium 4.8. Creatinine 0.62. AST 55. ALT 55. LDH 2934. C-reactive protein 3.3. D- dimer 10.2. CT angiogram of the chest is pending. He remains on Baricitinib, Decadron, Lovenox, vitamin supplements. Objective - Vital Signs Vital signs: Vital Signs Temp 97.9 F 11/28/20 04:00 Pulse 93 11/28/20 10:00 Resp 40 H 11/28/20 10:00 BP 107/70 11/28/20 10:00 Pulse Ox 91 L 11/28/20 10:00 Intake & Output 11/27/20 11/28/20 11/28/20 18:59 06:59 18:59 Intake Total 1750 1380 350 Output Total 750 653 1339 Balance 1100 680 -1100 Intake: IV 900 900 150 Sodium Chloride 0.9% 1, 900 900 150 000 ml @ 20 mls/hr IV . Q24H HIRAM Rx#:[id number] Oral 850 480 200 Output: Urine 141 991 0284 Other: Voiding Method Urinal Urinal Urinal # Voids 1 - Exam GENERAL EXAM: Alert, very pleasant, 60-year-old male patient, on AirVo at 60 L and FiO2 of 90%, he alternates between BiPAP at pressure of 12/6 and FiO2 of 100% HEAD: Normocephalic/atraumatic. EYES: Normal reaction of pupils, equal size. Conjunctiva pink, sclera white. NOSE: Clear with pink turbinates. THROAT: No erythema or exudates. NECK: No masses, no JVD, no thyroid enlargement, no adenopathy. CHEST: No chest wall deformity. Symmetrical expansion. LUNGS: Equal air entry with crackles in the bilateral posterior bases CVS: Regular rate and rhythm, normal S1 and S2, no gallops, no murmurs, no rubs ABDOMEN: Soft, nontender. No hepatosplenomegaly, normal bowel sounds, no guarding or rigidity. EXTREMITIES: No clubbing, no edema, no cyanosis, 2+ pulses and upper and lower extremities. MUSCULOSKELETAL: Muscle strength and tone normal. SPINE: No scoliosis or deformity SKIN: No rashes CENTRAL NERVOUS SYSTEM: No focal deficits, tone is normal in all 4 extremities. PSYCHIATRIC: Alert and oriented -3. Appropriate affect. Intact judgment and insight. - Labs CBC & Chem 7: 11/28/20 03:26 11/28/20 03:26 Labs: Abnormal Lab Results - Last 24 Hours (Table) 11/27/20 11/27/20 11/28/20 Range/Units 03:50 16:59 03:26 WBC 20.4 H (3.8-10.6) k/uL Plt Count 130 L (150-450) k/uL Neutrophils # 19.0 H (1.3-7.7) k/uL Lymphocytes # 0.6 L (1.0-4.8) k/uL D-Dimer (<0.60) mg/L FEU Sodium (137-145) mmol/L BUN (9-20) mg/dL Creatinine (0.66-1.25) mg/dL Glucose (74-99) mg/dL POC Glucose (mg/dL) 188 H (75-99) mg/dL Ferritin 1478.7 H (22.0-322.0) ng/mL ALT (4-49) U/L Alkaline Phosphatase (38-126) U/L Lactate Dehydrogenase (313-618) U/L C-Reactive Protein (<1.0) mg/dL Total Protein (6.3-8.2) g/dL Albumin (3.5-5.0) g/dL 11/28/20 11/28/20 Range/Units 03:26 03:26 WBC (3.8-10.6) k/uL Plt Count (150-450) k/uL Neutrophils # (1.3-7.7) k/uL Lymphocytes # (1.0-4.8) k/uL D-Dimer 10.20 H (<0.60) mg/L FEU Sodium 134 L (137-145) mmol/L BUN 31 H (9-20) mg/dL Creatinine 0.62 L (0.66-1.25) mg/dL Glucose 138 H (74-99) mg/dL POC Glucose (mg/dL) (75-99) mg/dL Ferritin (22.0-322.0) ng/mL ALT 55 H (4-49) U/L Alkaline Phosphatase 151 H (38-126) U/L Lactate Dehydrogenase 2934 H (313-618) U/L C-Reactive Protein 3.3 H (<1.0) mg/dL Total Protein 5.3 L (6.3-8.2) g/dL Albumin 2.8 L (3.5-5.0) g/dL Microbiology - Last 24 Hours (Table) 11/21/20 15:24 Blood Culture - Final Blood No Growth after 144 hours 11/21/20 15:24 Blood Culture - Final Blood No Growth after 144 hours Assessment and Plan Assessment: 1 Acute Covid 19 related pneumonia. The patient became symptomatic approximately 8 days prior to arrival. Presented with worsening shortness of breath and bilateral pneumonia. Patient is not vaccinated. The patient had not received any outpatient treatments for Covid 19 infection. Diagnosis established during this current admission. Started on Bariticinib on 11/15/2020 in view of worsening hypoxic respiratory failure. Patient was outside the [facility] for Remdesivir 2 Acute hypoxic respiratory failure which has significantly progressed since admission, and patient is currently on Airvo at 60 L and FiO2 of 90% for meals but mainly alternating with BiPAP 12/6 at 100%. He was transferred to the intensive care unit on 11/22/2020 3 Obesity with a BMI of 37. 4 Increased inflammatory markers related to acute COVID-19 pneumonia 5 Increased d-dimer, related to viral pneumonia, currently on Lovenox 40 mg daily, Dopplers of the lower extremity negative, CT angiogram pending today Plan: The patient was seen and evaluated by Dr. Cochran Chest x-ray and labs reviewed D-dimer increasing We'll obtain a CT angiogram of the chest Discontinue Decadron, and IV Solu-Medrol Continue Lovenox, Baricitinib, vitamin supplements Titrate the FiO2 as tolerated We will continue to follow and make further recommendations based on his clinical status Critical care time 38 minutes I, the cosigning physician, performed a history & physical examination of the patient. Lungs sounds with crackles in the bilateral posterior bases. Main taining good O2 saturations in the 90s on AirVo high flow oxygen at 60 L/m at 90% FiO2, alternating with BiPAP 12/6 and 100% FiO2. I discussed the assessment and plan of care with my nurse practitioner, Roseanne Carey. I attest to the above note as dictated by her.
[2020-11-28 11:07] LABS: Glucose,Whole Blood 165 mg/dL (75-99)
--- NOTE | 2020-11-28 11:29 | CT ---
EXAMINATION TYPE: CT angio chest DATE OF EXAM: 11/28/2020 11:08 AM COMPARISON: Chest x-ray earlier today end older x-rays. HISTORY: Elevated D-dimer; COVID pneumonia. Admitted November 14. CT DLP: 694.9 mGycm Automated exposure control for dose reduction was used. CONTRAST: CTA scan of the thorax is performed with IV Contrast, patient injected with 69 mL of Isovue 370, pulm onary embolism protocol. MIP images are created and reviewed. FINDINGS: LUNGS: Bilateral overall diffuse groundglass opacity with minimal peripheral subpleural sparing. Ther e are multifocal areas of organizing consolidation bilaterally. No pleural effusion or pneumothorax i s present. MEDIASTINUM: There is some respiratory motion artifact degradation but fairly satisfactory enhancemen t of the pulmonary artery and its branches, no convincing CT evidence for significant acute pulmonary embolism. Satisfactory enhancement of the thoracic aorta without aneurysm or dissection. Mildly dila blayne Main pulmonary artery 3.1 cm axial image 42, CT finding may be product of underlying pulmonary hy pertension. Mild cardiomegaly. Left-sided PICC line terminates in SVC. There are prominent bilateral hilar lymph nodes presumed reactive. A few prominent but subcentimeter lymph nodes in the paratrache al region and prevascular space noted. No pericardial effusion is seen. OTHER: Posterior oval well-defined 4.1 x 2.4 cm right upper abdominal lesion abuts skin surface axia l image 111 favoring sebaceous cyst or other benign dermatologic etiology. Small degree of flame-shap ed gynecomastia is present bilaterally. IMPRESSION: Slightly suboptimal study without CT evidence for acute pulmonary embolism. Mild cardiome terrell with bilateral diffuse groundglass opacities and multifocal organizing consolidations consistent with known covid-19 infection are redemonstrated.
[2020-11-28] MEDS: methylPREDNISolone SOD SUCCI 125 MG/2 ML VIAL IV SCH ×3 (11:56→23:07)
[2020-11-28] MEDS: BARICITINIB 2 MG TABLET PO SCH (14:53)
--- NOTE | 2020-11-28 16:00 | P.PN ---
Subjective Progress Note Date: 11/28/20 HISTORY OF PRESENT ILLNESS This is a pleasant 60-year-old gentleman patient of Dr. Ridge Christina. He doesn't see a physician often and does not note any medical diseases, except for obesity. He comes seen secondary to fever and chills, cough, starting December 06 first, along with muscle aches, lack of appetite and diarrhea. he was tested for call bid November 08, which required at week of reporting, subsequently was sent to emergency room secondary to worsening symptoms, including dyspnea on exertion, shortness of breath and worsening cough without hemoptysis. Fever, sh ortness of breath lingers, no treatment given to him prior to this admission. The is vaccinated, but the patient is not. He does not believe in vaccines at that time. He comes in the emergency room, with hypoxemia, with very minimal conversational dyspnea, chest x-ray, shows pulmonary infiltrate consistent with Covid pneumonia, oxygen currently is at 6 L nasal cannula, d-dimer was 0.6, LFTs are minimally elevated, 64 AST, lactic acid 2.0 sodium 132, creatinine of 0.9, glucose of 122, LDH of 888, CRP of 5.7. Urine protein noted, without hematuria or proteinuria. Covid was again retested 11/14, PCR is positive. Consult to Dr. Eduardo and pulmonary,, 11/16: Patient is currently on oxygen at 6 L nasal cannula increased to 7 L with humidified oxygen. Patient seen and followed by pulmonary medicine and has been started on Bariticinib, Decadron 6 mg daily, and prophylactic dose of Lovenox. He is reaching 1750 on incentive spirometry. Patient did have episode of diarrhea yesterday, none today and complains of decreased appetite. Patient complains of nasal congestion and Flonase added. 11/17: Patient had difficulty with oxygenation during the night and this morning transitioned to Airfo and partial nonrebreather. Pulse ox is currently running 90-92%, patient is prone. He has been afebrile, heart rate 88, blood pressure 104/63. Repeat d-dimer is elevated at 0.93. Blood sugar 167. C-reactive protein increased to 5.3. AST is 83 and ALT 51. Blood culture remains with no growth after 48 hours. Repeat chest x-ray reveals mild cardiomegaly with bilateral multifocal opacities consistent with Covid 19 infection. No significant change from most recent x-ray. Albuterol inhaler and Symbicort inhaler added. 11/18: Patient is currently on AirVo and nonrebreather with pulse ox of 93%. He's been afebrile, heart rate 85, blood pressure 103/68. Blood culture no growth at 72 hours 2 specimens. Plan to continue proning. Repeat laboratory studies ordered for tomorrow including inflammatory markers. The patient is having difficulty sleeping and melatonin added. Lovenox increased to twice daily dosing. 11/19: Patient remains in isolation. He is on AirVO plus nonrebreather with pulse ox of 93%. He has been afebrile, heart rate 85, blood pressure 122/69. Patient is found sitting in recliner and encouraged to prone when he is able to. Repeat blood work reveals WBC 12, hemoglobin 14.8, platelet count 282. D-dimer is 1.38. Other blood work is pending. Patient is continued on Decadron, vitamin supplements, Lovenox. He is on day #07/20 of Baricitinib. 11/20: Patient has been afebrile, heart rate 71, blood pressure 107/71, pulse ox 88-93% on AirVo plus nonrebreather. Patient seems to be depressed and frustrated with coarse. Noted that he started on Xanax yesterday by pulmonary. We will add and Remeron 7.5 mg at bedtime. Hemoglobin A1c came back at 6.4. Patient is encouraged to use incentive spirometry, increase activity, prone. Discussed CODE STATUS with patient and he wishes to be a full code. 11/21: Patient will pulse ox of 83% as he was on Airvo only and once nonrebreather was placed she went up to 89%. Patient is not eating much. He has been encouraged to take protein supplement, increase activity and prone but patient does not seem motivated. He was started on Remeron last night which will hopefully help with his mood and appetite. He has continued on Lovenox, dexamethasone, Baricitinib #09/19 repeat blood work reveals WBC 14.3. D-dimer increasing to 3.2. Electrolytes normal, creatinine 0.76. LDH is high at 1476, C-reactive protein stable 6.6. 11/22: Patient continues to be on airflow and nonrebreather and with minimal movement, pulse ox drops down to 82%, otherwise patient is maintaining 92-94%. One dose of IV Lasix ordered for today. Temperature max yesterday afternoon was 101.2. Heart rate in the 70s and 80s. Blood pressure 110/59. Urinalysis was negative for infection. Repeat blood work will be ordered for tomorrow. 11/23: Patient Was moved into ICU overnight. He has been on BiPAP through the night and pulse oxing 95% recently on his side, currently sitting on the edge of the bed pulse oxing 90%, with talking he drops to 83%. He is scheduled for PICC line insertion and plan to start TPN today. Patient has been afebrile, heart rate in the 60s, respiratory rate 28. WBC 12.0, hemoglobin 15, platelet count 351. Lymphocytes 11.1. D-dimer 2.46. Sodium 136, otherwise electrolytes are normal. BUN 30 creatinine 0.7. Blood sugar 128. Magnesium 2.5. Phosphorus 5.5. LDH 1691. C-reactive protein 13.4. Total protein 5.6. Blood cultures remain with no growth. Repeat chest x-ray this morning reveals stable diffuse bilateral infiltrates. Patient is on Baricitinib 10/20. Pulmonary has increased frequency of dexamethasone to twice daily and changed to IV6 mg IV twice daily. 11/24: Patient remain in the ICU, still on BiPAP with pulse ox is improving at this point. Continue dexamethasone and Baricitinib 11/20, patient had full meal this morning his TPN will be suspended after today. Patient will remain in the ICU at least for the next 48 hours. 11/25: Remain in the ICU still on BiPAP but his pulse ox is slightly bit better he still on dexamethasone and Baricitinib 12/20 seems to do slightly but better was agreed by intensive care studies TPN, patient oral intake is slightly but better and had slight improvement compared to yesterday. Surprisingly his marker went up slightly bit specially his LDH up to 2086 with C-reactive protein 3.6 kidney function remained good white blood cell climb up to 15.1 specially been on steroid. Chest x-ray still shows diffuse bilateral interstitial infiltrate and patchy opacification persistent but there is a slight improvement in the variation in the left lower lobe compared to few days earlier. 11/26: Patient remain on BiPAP with 100% oxygen to keep his pulse ox around 92 percentile, his d-dimer continue to be quite bit elevated today is having Doppler of the lower extremity but notes CT at this point. Remain on Symbicort, and albuterol HFA, his white blood cell is down 17,000, blood sugars better control. Chest x-ray still showed patchy infiltrate throughout both lung felix persistent didn't change. Patient had mild anxiety with no pain currently. 11/27: Patient remains in the intensive care unit. He is placed on airflow for eating and pulse ox drops to the 7083 percent range. Pulse ox 90-93% on100% BiPAP. He is afebrile, heart rate in the 70s, respiratory rate 27 and 32, blood pressure 102/71. WBC 21.5, lymphocytes 0.6. D-dimer 7.29. Blood sugars running between 111 and 171. Ferritin level [id number]. ALT 54, alkaline phosphatase 152. CK 27, C-reactive protein 2.9. Repeat chest x-ray reveals borderline cardiomegaly with prominent pulmonary vascular markings. Diffuse increased lung markings are present. Correlate for heart failure. Atypical pneumonia should be considered. Lower extremity ultrasound negative for DVT bilaterally. 11/28: Patient remains in the intensive care unit and found sitting in a chair at the bedside. He is continued on BiPAP and switched over to Arava and nonrebreather for meals. Repeat chest x-ray essentially unchanged. Repeat blood work reveals WBC 20.4, hemoglobin 14.8, platelet count 130. Sodium 134, potassium 4.8, creatinine 0.62. LDH 2934. C-reactive protein 3.3, d-dimer 10.2. CT angiogram of the chest has been ordered by pulmonary medicine which revealed slightly suboptimal study without evidence of acute pulmonary embolism. Mild cardiomegaly with bilateral cities and multifocal organizing consolidations consistent with Covid19 infection. Lovenox has been changed to 40 mg daily and dexamethasone changed to Solu-Medrol 60 mg every 6 hours. Taco michelle has completed course of Baricitinib. REVIEW OF SYSTEMS Constitutional: No fever, no chills, no night sweats. No weight change. Reports weakness, reports fatigue reports lethargy. Reports daytime sleepiness. EENT: No headache. No blurred vision or double vision, no loss of vision. No loss of Hearing,no dizziness. No nasal drainage or congestion. No epistaxis. No sore throat. Lungs Reported shortness of breath, reported cough, no sputum production. No wheezing. Dyspnea with minimal exertion. dyspnea at rest. Cardiovascular: No chest pain, no lower extremity edema. No palpitations. No paroxysmal nocturnal dyspnea. No orthopnea. No lightheadedness or dizziness. No syncopal episodes. Abdominal: No abdominal pain. No nausea, vomiting. Reports diarrhea. No constipation. No bloody or tarry stools. Reports loss of appetite. Genitourinary: No dysuria, no increased frequency, no urgency. No urinary retention. Musculoskeletal: No myalgias. Generalized muscle weakness, no gait dysfunction, no frequent falls. No back pain. No neck pain. Integumentary: No wounds, no lesions. No rash or pruritus. No unusual bruising. Neurologic: No aphasia. No facial droop. No change in mentation. No head injury. No headache. No paresthesia. Psychiatric: No depression. No anxiety. No mood swings. Insomnia. Endocrine: No abnormal blood sugars. PHYSICAL EXAMINATION Gen: This is a 60-year-old obese male. Patient developed significant shortness of breath with minimal activity. He is resting in recliner with BiPAP. HEENT: Head is atraumatic, normocephalic. Pupils equal, round. Sclerae is anicteric. NECK: Supple. No JVD. No lymphadenopathy. No thyromegaly. LUNGS: Diminished breath sounds. No wheezes or rhonchi. Positive retractions. noted accessory muscle usage. HEART: Regular rate and rhythm. No murmur. ABDOMEN: obese. Soft. Bowel sounds are present. No masses. No tenderness. EXTREMITIES: No pedal edema. No calf tenderness. NEUROLOGICAL: Patient is awake, alert and oriented x3. Cranial nerves 2 through 12 are grossly intact. ASSESSMENT AND PLAN 1. Acute respiratory failure: Secondary to COVID-19, remain on BiPAP with 100% slow try to keep his pulse ox as close as possible to 90. Patient d-dimer is elevated is having Doppler of the lower extremity whether he should have another CT or not still be determined by pulmonary. 2. Sepsis (POA) secondary to COVID-19 pneumonia, with acute hypoxemic respiratory failure, diagnosis was of 11/08/2020, symptoms started December 06 first. Patient is not vaccinated, and since being seen in consultation by pulmonary, he is on dexamethasone transitioned to Solu-Medrol IV 60 mg every 6 hours, Lovenox 40 mg daily, completed course of Baricitinib , continue albuterol inhaler, Symbicort inhaler, prone positioning. Continue O2 via BiPAP is 100% O2 3. Moderate protein calorie malnutrition secondary to poor oral intake. Patient is off TPN his doing better with oral intake. 4. DVT prophylaxis Lovenox Increased frequency to twice daily. Doppler of lower extremity negative for DVT bilaterally. 5. GI prophylaxis Pepcid no abdominal pain. 6. BPH without LUTs no sign of urinary retention. 7. Proteinuria, unknown cause, 8. Dymetabolic syndrome, monitor for hyperglycemia, A1c 6.4k. NovoLog scale before meals and at bedtime. CODE Status: Full code Prognosis: Still guarded. Impression and plan of care have been directed as dictated by the signing physician. Sanam Valentine nurse practitioner acting as scribe for signing physician. Objective - Vital Signs Vital signs: Vital Signs Temp 97.9 F 11/28/20 04:00 Pulse 93 11/28/20 10:00 Resp 40 H 11/28/20 10:00 BP 107/70 11/28/20 10:00 Pulse Ox 91 L 11/28/20 10:00 Intake & Output 11/27/20 11/28/20 11/28/20 18:59 06:59 18:59 Intake Total 1750 1380 350 Output Total 120 533 1890 Balance 1100 680 -1100 Intake: IV 900 900 150 Sodium Chloride 0.9% 1, 900 900 150 000 ml @ 20 mls/hr IV . Q24H [facility] Rx#:[id number] Oral 850 480 200 Output: Urine 180 103 7150 Other: Voiding Method Urinal Urinal Urinal # Voids 1 - Labs CBC & Chem 7: 11/28/20 03:26 11/28/20 03:26 Labs: Abnormal Lab Results - Last 24 Hours (Table) 11/27/20 11/28/20 11/28/20 Range/Units 16:59 03:26 03:26 WBC 20.4 H (3.8-10.6) k/uL Plt Count 130 L (150-450) k/uL Neutrophils # 19.0 H (1.3-7.7) k/uL Lymphocytes # 0.6 L (1.0-4.8) k/uL D-Dimer 10.20 H (<0.60) mg/L FEU Sodium (137-145) mmol/L BUN (9-20) mg/dL Creatinine (0.66-1.25) mg/dL Glucose (74-99) mg/dL POC Glucose (mg/dL) 188 H (75-99) mg/dL ALT (4-49) U/L Alkaline Phosphatase (38-126) U/L Lactate Dehydrogenase (313-618) U/L C-Reactive Protein (<1.0) mg/dL Total Protein (6.3-8.2) g/dL Albumin (3.5-5.0) g/dL 11/28/20 11/28/20 Range/Units 03:26 11:06 WBC (3.8-10.6) k/uL Plt Count (150-450) k/uL Neutrophils # (1.3-7.7) k/uL Lymphocytes # (1.0-4.8) k/uL D-Dimer (<0.60) mg/L FEU Sodium 134 L (137-145) mmol/L BUN 31 H (9-20) mg/dL Creatinine 0.62 L (0.66-1.25) mg/dL Glucose 138 H (74-99) mg/dL POC Glucose (mg/dL) 165 H (75-99) mg/dL ALT 55 H (4-49) U/L Alkaline Phosphatase 151 H (38-126) U/L Lactate Dehydrogenase 2934 H (313-618) U/L C-Reactive Protein 3.3 H (<1.0) mg/dL Total Protein 5.3 L (6.3-8.2) g/dL Albumin 2.8 L (3.5-5.0) g/dL Microbiology - Last 24 Hours (Table) 11/21/20 15:24 Blood Culture - Final Blood No Growth after 144 hours 11/21/20 15:24 Blood Culture - Final Blood No Growth after 144 hours
[2020-11-28 17:19] LABS: Glucose,Whole Blood 119 mg/dL (75-99)
[2020-11-28 20:00] LABS: Glucose,Whole Blood 210 mg/dL (75-99)
[2020-11-28] MEDS: MELATONIN 3 MG TABLET PO SCH (20:34)
[2020-11-28] MEDS: MIRTAZAPINE 15 MG TAB PO SCH (20:34)
[2020-11-29 04:51] LABS: Basophils # (A) 0.1 k/uL (0-0.2); Basophils % (A) 0 %; Eosinophils # (A) 0.2 k/uL (0-0.7); Eosinophils % (A) 1 %; HCT 46.3 % (39.0-53.0); HGB 15.1 gm/dL (13.0-17.5); Lymphocytes # (A) 0.6 k/uL (1.0-4.8); Lymphocytes % (A) 4 %; MCH 28.9 pg (25.0-35.0); MCHC 32.7 g/dL (31.0-37.0); MCV 88.2 fL (80.0-100.0); Mean Platelet Volume 8.7; Monocytes # (A) 0.4 k/uL (0-1.0); Monocytes % (A) 2 %; Neutrophils # (A) 15.1 k/uL (1.3-7.7); Neutrophils % (A) 92 %; Platelet Count 120 k/uL (150-450); RBC 5.24 m/uL (4.30-5.90); RDW 13.3 % (11.5-15.5); WBC 16.4 k/uL (3.8-10.6)
[2020-11-29] MEDS: methylPREDNISolone SOD SUCCI 125 MG/2 ML VIAL IV SCH ×4 (06:49→23:26)
[2020-11-29 06:54] LABS: Glucose,Whole Blood 146 mg/dL (75-99)
[2020-11-29] MEDS: INSULIN ASPART (NovoLOG) 100 UNIT/ML VIAL SQ SCH ×4 (07:07→21:06)
--- NOTE | 2020-11-29 07:30 | XR ---
EXAMINATION TYPE: XR chest 1V portable DATE OF EXAM: 11/29/2020 COMPARISON: Chest x-ray 11/28/2020 HISTORY: Assess lungs, pneumonia TECHNIQUE: Single frontal view of the chest is obtained. FINDINGS: Bilateral airspace disease is present. Left-sided PICC line is noted, distal tip is overly ing superior vena cava. No evident pneumothorax or pleural effusion. Cardiomediastinal silhouette is likely stable, there are overlying artifacts. Right hemidiaphragm is elevated. IMPRESSION: Correlate for pneumonia, edema or pulmonary hemorrhage, there is cardiomegaly
[2020-11-29 07:35] LABS: ALT 53 U/L (4-49); AST 36 U/L (17-59); African American GFR (CKD) >90 (>60 ml/min/1.73 sqM); Albumin 2.9 g/dL (3.5-5.0); Alkaline Phosphatase 133 U/L (38-126); Anion Gap 3 mmol/L; Blood Urea Nitrogen 41 mg/dL (9-20); Carbon Dioxide 33 mmol/L (22-30); Chloride 100 mmol/L (98-107); Creatine Kinase 47 U/L (55-170); Glucose 145 mg/dL (74-99); LDH 2086 U/L (313-618); Non-African American GFR(CKD) >90 (>60 ml/min/1.73 sqM); Potassium 4.6 mmol/L (3.5-5.1); Sodium 136 mmol/L (137-145); Total Bilirubin 0.8 mg/dL (0.2-1.3); Total Protein 5.6 g/dL (6.3-8.2)
[2020-11-29] MEDS: SYMBICORT 160-4.5 MCG INHALER INHALATION SCH ×2 (08:09→20:13)
[2020-11-29] MEDS: ALBUTEROL HFA INHALER INHALATION SCH ×3 (08:09→20:12)
[2020-11-29] MEDS: ENOXAPARIN 40 MG/0.4 ML SYRINGE SQ SCH (08:38)
[2020-11-29] MEDS: ALPRAZolam 0.25 MG TAB PO SCH ×3 (08:39→21:07)
[2020-11-29] MEDS: ASCORBIC ACID 500 MG TAB PO SCH ×2 (08:39→21:05)
[2020-11-29] MEDS: CHOLECALCIFEROL 25 MCG (1000 IU) TABLET PO SCH (08:39)
[2020-11-29] MEDS: ZINC SULFATE 220 MG CAP PO SCH (08:39)
[2020-11-29] MEDS: SODIUM CHLORIDE 0.65% NASAL SPRAY 44 ML BTL NASAL PRN (08:45)
[2020-11-29] MEDS: DICLOFENAC SODIUM GEL 100 GM TUBE TOPICAL SCH ×5 (08:45→21:07)
[2020-11-29] MEDS: FLUTICASONE 50MCG/SPRAY NASAL 16GM EA NOSTRIL SCH (09:00)
--- NOTE | 2020-11-29 09:28 | P.PN ---
Subjective Progress Note Date: 11/29/20 Principal diagnosis: COVID-19 pneumonia On today's evaluation on the 11/15/2020 patient seen in follow-up on medical surgical floor. His O2 saturations are marginal, on 6 L his pulse ox is 90%. Does not seem to be in any acute distress, no increased work of breathing. Occasional cough, nonproductive, patient was outside the window for Remdesivir. He is not vaccinated, S x-ray on admission showed significant patchy infiltrates compatible with his history of COVID-19 infection. Blood pressure has been stable, afebrile. His labs have been reviewed, d-dimer is 0.52, which is 888, CRP is 5.7. Patient is currently on Decadron 6 mg, he is on prophylactic dose Lovenox. Today's evaluation on 11/16/2020 patient seen in follow-up on medical surgical floor, his oxygen demand has increased in the last 24 hours, and his FiO2 was titrated to 10 L, his pulse ox is 91-92%, does not appear to be in any acute respiratory distress, he sitting up in the chair, is awake and alert, oriented 3, his been afebrile overnight, blood pressure is been stable, today's chest x- ray shows patchy perihilar and left lower lobe infiltrate persistence. The patient was started on on Bariticinib, Decadron 6 mg daily, and prophylactic dose of Lovenox. His appetite is poor per nursing staff, he seems to be depressed. Labs have been reviewed, his d-dimer is low at 0.50, his LDH from yesterday was 888, and CRP was 5.7. On 11/17/2020 patient seen in follow-up on the surgical floor. He is currently on Airvo 60 L and FiO2 of 94% in addition to partial nonrebreather mask and his pulse ox is around 90-92%. Patient easily desaturates with any activity. He is currently on his abdomen, he is self proning, and his oxygen does improve when he does that with a pulse ox of 95-96%, he tolerates proning fairly well. Patient is on day 3 of Bariticinib, he is also on Decadron 6 g daily, and prophylactic dose of Lovenox. His chest x-ray today shows mild cardiomegaly with bilateral multifocal opacities with no significant change from most recent chest x-ray. Today's labs have been reviewed, with blood cell count is 10, hemoglobin is 14.9, lymphocyte count is 0.7, d-dimer is 0.93, electrolytes are within normal limits, BUN is 25 creatinine 0.82. Reevaluated today on 11/18/2020, patient remains on airvo , and on nonrebreather mask, his FiO2 is at 90%, and flow is 60 L/m via airvo. Saturation is marginal, however the patient seems to be rather comfortable. His O2 saturation is in the low 90s, desaturates easily with activity. He is doing self groaning, and he does improve with self groaning hence I'm recommending titrating his FiO2 down as his oxygenation improved. BC today is relatively normal d-dimer is up a bit at 0.93. Electrolytes are normal renal profile is normal. Last chest x-ray from 11/17 continues to show bilateral multifocal opacities consistent with COVID-19 infection, not much improvement noted based on the chest x-ray. Patient was reevaluated today on 11/19/2020, remains on the regular medical floor, remains on Airvo plus nonrebreather mask, and his O2 saturation is in the range of 93-96%. Patient is surprisingly comfortable, sitting in a recliner, not in any distress. WBC count is 12 hemoglobin 14.8 electrolytes are normal renal profile is normal, LDH is 566 and his C-reactive protein is 8.1. Slightly bit more elevated compared to yesterday. Patient remains on the COVID- 19 cocktail, remains on Lovenox at 40 mg subcu twice a day, and he is on Decadron, as well as baricitinib Reevaluated today on 11/20/2020, patient is basically about the same, not much different today from yesterday. O2 saturation remains marginal in the low 90s, patient remains on airvo at 90%, and 60 L flow. He also has a nonrebreather mask, and O2 saturation remains marginal at best. Clinically however the patient is about the same, has been adjusting his sleep positions and sometimes he notices significant improvement when he lays on the left side of the right side. Unable to go into a prone position. CBC is relatively normal his d-dimer is a bit up 1.38 his electrolytes are normal renal profile is normal, LDH is 566 C-reactive protein is a bit higher today 8.1. Pro-calcitonin is 0.11 Patient was reevaluated today on 11/21/2020, remains on airvo at maximal flow and FiO2, patient remains on nonrebreather mask, O2 saturation is in the high 80s and low 90s. Patient feels better in the right lateral decubitus position, he is basically overall about the same. He is not demonstrating any significant improvement or any worsening. Remains on all the COVID-19 cocktail, not much changed. D-dimer 3.2 today. Patient was reevaluated today on 11/23/2020, I saw him yesterday and I recommended transfer to the ICU. Remains in the ICU, patient is on BiPAP, IPAP 12 EPAP of 6 and FiO2 is 100%. His O2 saturation is marginal in the low 90s, improves when the patient goes in the left lateral decubitus position. Hence I advised him to stay as often as he can in the left lateral decubitus position. Patient is scheduled to have a PICC line placed for TPN. Has not been eating much, and his interstitial status is poor. Patient remains on baricitinib, and he is on the rest of the COVID-19 cocktail. Today's d-dimer is 2.46. Clinicall y however and surprisingly the patient is feeling comfortable, does not seem to be in distress. WBC count is 12 hemoglobin is 15 electrolytes are normal renal profile is normal, inflammatory markers are high LDH of 1691 and C-reactive protein is 13.4. Pro-calcitonin remains low at 0.09. Reevaluated today on 11/24/2020, patient remains in the ICU, transitioned yesterday from BiPAP to airvo at 60 L flow, and 90% FiO2. His O2 saturation is marginal, patient did use BiPAP last night. He went off BiPAP at 5 AM this morning. Remains on IV fluid at 75 mL/h, he is also on TPN via PICC line. Over all the patient is holding nicely, remains on Decadron twice a day, is also on baricitinib seems to be tolerating both well. Patient is considered marginal at best, I'm not seeing significant improvement and I'm not seeing worsening at this point. WBC count today is noted to be high at 16.7. Electrolytes are normal renal profile is normal, his last pro-calcitonin 2 days ago was 0.09, relatively unremarkable. Reevaluated today on 11/25/2020, patient remains in the ICU, alternating between airvo and BiPAP, nonetheless he remains on relatively high FiO2 and high flow if clinically the patient is about the same, his O2 saturation remains marginal in the high 80s and low 90s. Patient remains on TPN which I plan to discontinue since the patient is eating better today, he feels a bit better today, chest x- ray is basically about the same. Patient remains on the COVID-19 cocktail, on multiple drugs as listed below. Respiratory BC count is 15.1 hemoglobin 14.3 d- dimer is 5.48, patient remains on Lovenox at 40 mg subcu twice a day. His renal profile is normal his electrolytes are normal, LDH is 2086 and C-reactive protein is 3.6. His LDH is higher than yesterday, his C-reactive protein is lower, and his d-dimer is higher. On 11/26/2020 patient seen in follow-up in intensive care unit. He is awake and alert, oriented 3, he is currently off BiPAP, and she is on Airvo at 60 L and FiO2 of 90%, and his pulse ox is around 84-85%. She does wear BiPAP support with pressure of 12 and 6 and FiO2 of 100%, and usually his O2 saturations are better on BiPAP support and run at 90-92%. he does come off the BiPAP to eat meals. Seems fairly comfortable, despite low O2 saturations. Afebrile, hemodynamically has been stable. He is on IV 0.9 normal saline at a rate of 75 ML per hour, no other drips, he continues on Baricitinib 4 mg daily, since 11/15/2020. He remains on Decadron 6 mg twice daily, and Lovenox 40 mg twice daily. Today's chest x-ray has been reviewed showing patchy infiltrates throughout both lung felix, without significant change since yesterday. Today's labs have been reviewed, his d-dimer is at 6.6, slightly increased from yesterday from 5.48. His electrolytes are unremarkable, B1 is 25 creatinine 0.67, LDH has increased to 2423, and CRP actually came down and is down to 3, pro-calcitonin level was repeated and came back negative at 0.09. White blood cell count is 17.4 on today's labs, lymphocyte count is 0.7. Blood cultures have shown no growth. The patient is seen today 11/27/2020 in follow-up in the intensive care unit. He is currently sitting up in bed. Awake and alert in mild respiratory distress. He is currently on theAirVo high flow oxygen device for meals at 60 L/m and 90% FiO2. He's been mainly BiPAP dependent 12/6 at 100% FiO2 to maintain O2 saturations 88-92%. He has 0.9 normal saline at 75 ML's per hour. He is eating well still. Chest x-ray is reviewed and continues to show diffuse increased lung markings. Prominent pulmonary vascular congestion. Blood cultures revealed no growth. White count 21.5. Hemoglobin 14.3. Lymphocytes 0.6. D-dimer 7.29. Sodium 135. Potassium 4.7. Creatinine 0.74. AST 48, ALT 54. C-reactive protein 2.9. Pro-calcitonin 0.09. He remains on Baricitinib, Decadron, Lovenox, vitamin supplements. Dopplers of the lower extremities were negative for DVT bilaterally. The patient is seen today 11/28/2020 in follow-up in the intensive care unit. He is currently sitting up in a chair at the bedside. Awake and alert. Still requiring BiPAP 12/6 and 100% FiO2 to maintain O2 saturations in the high 80s low 90s. He is alternating with the AirVo at 60 L/m and 90% FiO2 for meals. Chest x-ray continues to revealed diffuse interstitial and patchy bilateral infiltrates. Some slight improvement in the left base but otherwise unchanged. White count 20.4. Hemoglobin 14.8. Platelets 130. Sodium 134. Potassium 4.8. Creatinine 0.62. AST 55. ALT 55. LDH 2934. C-reactive protein 3.3. D- dimer 10.2. CT angiogram of the chest is pending. He remains on Baricitinib, Decadron, Lovenox, vitamin supplements. The patient is seen today 11/29/2020 in follow-up in the intensive care unit. He is currently resting fairly comfortably in bed. Remains awake, alert. He did utilize BiPAP all night at 12/600% FiO2. He'll be switched over to care of O high flow oxygen at 60 L and 94% for breakfast. CT angiogram ruled out pulmonary embolism. Continues with diffuse bilateral infiltrates. White count 16.4. Hemoglobin 15.1 platelet count 120. D-dimer 13.5. Sodium 136. Potassium 4.6. Creatinine 0.76. Glucose 145. LDH 2086. C-reactive protein 2.0. He has completed his course of Baricitinib. He is continued on IV Solu- Medrol, Lovenox, vitamin supplement, Symbicort and albuterol. Objective - Vital Signs Vital signs: Vital Signs Temp 97.8 F 11/29/20 08:00 Pulse 72 11/29/20 08:00 Resp 24 11/29/20 08:00 BP 106/67 11/29/20 08:00 Pulse Ox 86 L 11/29/20 08:00 Intake & Output 11/28/20 11/29/20 11/29/20 18:59 06:59 18:59 Intake Total 550 240 Output Total 0 400 Balance -1500 -160 Weight 110.2 kg Intake: IV 150 Sodium Chloride 0.9% 1, 150 000 ml @ 20 mls/hr IV . Q24H HIRAM Rx#:[id number] Oral 400 240 Output: Urine 2049 400 Other: Voiding Method Urinal Urinal # Voids 0 0 0 - Exam GENERAL EXAM: Alert, very pleasant, weak 60-year-old male patient, on AirVo at 60 L and FiO2 of 94%, he alternates between BiPAP at pressure of 12/6 and FiO2 of 100% HEAD: Normocephalic/atraumatic. EYES: Normal reaction of pupils, equal size. Conjunctiva pink, sclera white. NOSE: Clear with pink turbinates. THROAT: No erythema or exudates. NECK: No masses, no JVD, no thyroid enlargement, no adenopathy. CHEST: No chest wall deformity. Symmetrical expansion. LUNGS: Equal air entry with crackles in the bilateral posterior bases CVS: Regular rate and rhythm, normal S1 and S2, no gallops, no murmurs, no rubs ABDOMEN: Soft, nontender. No hepatosplenomegaly, normal bowel sounds, no guarding or rigidity. EXTREMITIES: No clubbing, no edema, no cyanosis, 2+ pulses and upper and lower extremities. MUSCULOSKELETAL: Muscle strength and tone normal. SPINE: No scoliosis or deformity SKIN: No rashes CENTRAL NERVOUS SYSTEM: No focal deficits, tone is normal in all 4 extremities. PSYCHIATRIC: Alert and oriented -3. Appropriate affect. Intact judgment and insight. - Labs CBC & Chem 7: 11/29/20 04:25 11/29/20 07:00 Labs: Abnormal Lab Results - Last 24 Hours (Table) 11/28/20 11/28/20 11/28/20 Range/Units 11:06 17:17 19:59 WBC (3.8-10.6) k/uL Plt Count (150-450) k/uL Neutrophils # (1.3-7.7) k/uL Lymphocytes # (1.0-4.8) k/uL D-Dimer (<0.60) mg/L FEU Sodium (137-145) mmol/L Carbon Dioxide (22-30) mmol/L BUN (9-20) mg/dL Glucose (74-99) mg/dL POC Glucose (mg/dL) 165 H 119 H 210 H (75-99) mg/dL ALT (4-49) U/L Alkaline Phosphatase (38-126) U/L Lactate Dehydrogenase (313-618) U/L Creatine Kinase (55-170) U/L C-Reactive Protein (<1.0) mg/dL Total Protein (6.3-8.2) g/dL Albumin (3.5-5.0) g/dL 11/29/20 11/29/20 11/29/20 Range/Units 04:24 04:25 06:53 WBC 16.4 H (3.8-10.6) k/uL Plt Count 120 L (150-450) k/uL Neutrophils # 15.1 H (1.3-7.7) k/uL Lymphocytes # 0.6 L (1.0-4.8) k/uL D-Dimer 13.49 H (<0.60) mg/L FEU Sodium (137-145) mmol/L Carbon Dioxide (22-30) mmol/L BUN (9-20) mg/dL Glucose (74-99) mg/dL POC Glucose (mg/dL) 146 H (75-99) mg/dL ALT (4-49) U/L Alkaline Phosphatase (38-126) U/L Lactate Dehydrogenase (313-618) U/L Creatine Kinase (55-170) U/L C-Reactive Protein (<1.0) mg/dL Total Protein (6.3-8.2) g/dL Albumin (3.5-5.0) g/dL 11/29/20 Range/Units 07:00 WBC (3.8-10.6) k/uL Plt Count (150-450) k/uL Neutrophils # (1.3-7.7) k/uL Lymphocytes # (1.0-4.8) k/uL D-Dimer (<0.60) mg/L FEU Sodium 136 L (137-145) mmol/L Carbon Dioxide 33 H (22-30) mmol/L BUN 41 H (9-20) mg/dL Glucose 145 H (74-99) mg/dL POC Glucose (mg/dL) (75-99) mg/dL ALT 53 H (4-49) U/L Alkaline Phosphatase 133 H (38-126) U/L Lactate Dehydrogenase 2086 H (313-618) U/L Creatine Kinase 47 L (55-170) U/L C-Reactive Protein 2.0 H (<1.0) mg/dL Total Protein 5.6 L (6.3-8.2) g/dL Albumin 2.9 L (3.5-5.0) g/dL Assessment and Plan Assessment: 1 Acute Covid 19 related pneumonia. The patient became symptomatic approximately 8 days prior to arrival. Presented with worsening shortness of breath and bilateral pneumonia. Patient is not vaccinated. The patient had not received any outpatient treatments for Covid 19 infection. Diagnosis established during this current admission. Started on Bariticinib on 11/15/2020 in view of worsening hypoxic respiratory failure. Patient was outside the window for Remdesivir 2 Acute hypoxic respiratory failure which has significantly progressed since admission, and patient is currently on Airvo at 60 L and FiO2 of 94% for meals but mainly alternating with BiPAP 02/11 at 100%. He was transferred to the intensive care unit on 11/22/2020 3 Obesity with a BMI of 37. 4 Increased inflammatory markers related to acute COVID-19 pneumonia 5 Increased d-dimer, related to viral pneumonia, currently on Lovenox 40 mg daily, Dopplers of the lower extremity negative, CT angiogram pending today Plan: The patient was seen and evaluated by Dr. Basha Chest x-ray and labs reviewed CT angiogram ruled out pulmonary embolism Completed Baricitinib Continue Lovenox, Solu-Medrol, bronchodilators, vitamin supplements Titrate the FiO2 as tolerated We will continue to follow and make further recommendations based on his clinical status Critical care time 35 minutes I, the cosigning physician, performed a history & physical examination of the patient. Lungs sounds with crackles in the bilateral posterior bases. Maintaining good O2 saturations in the 90s on AirVo high flow oxygen at 60 L/m at 94% FiO2, alternating with BiPAP 12/6 and 100% FiO2. I discussed the assessment and plan of care with my nurse practitioner, Roseanne Carey. I attest to the above note as dictated by her.
[2020-11-29 12:27] LABS: Glucose,Whole Blood 212 mg/dL (75-99)
--- NOTE | 2020-11-29 13:16 | P.PN ---
Subjective Progress Note Date: 11/29/20 HISTORY OF PRESENT ILLNESS This is a pleasant 60-year-old gentleman patient of Dr. Ridge Christina. He doesn't see a physician often and does not note any medical diseases, except for obesity. He comes seen secondary to fever and chills, cough, starting December 06 first, along with muscle aches, lack of appetite and diarrhea. he was tested for call bid November 08, which required at week of reporting, subsequently was sent to emergency room secondary to worsening symptoms, including dyspnea on exertion, shortness of breath and worsening cough without hemoptysis. Fever, sh ortness of breath lingers, no treatment given to him prior to this admission. The is vaccinated, but the patient is not. He does not believe in vaccines at that time. He comes in the emergency room, with hypoxemia, with very minimal conversational dyspnea, chest x-ray, shows pulmonary infiltrate consistent with Covid pneumonia, oxygen currently is at 6 L nasal cannula, d-dimer was 0.6, LFTs are minimally elevated, 64 AST, lactic acid 2.0 sodium 132, creatinine of 0.9, glucose of 122, LDH of 888, CRP of 5.7. Urine protein noted, without hematuria or proteinuria. Covid was again retested 11/14, PCR is positive. Consult to Dr. Eduardo and pulmonary,, 11/16: Patient is currently on oxygen at 6 L nasal cannula increased to 7 L with humidified oxygen. Patient seen and followed by pulmonary medicine and has been started on Bariticinib, Decadron 6 mg daily, and prophylactic dose of Lovenox. He is reaching 1750 on incentive spirometry. Patient did have episode of diarrhea yesterday, none today and complains of decreased appetite. Patient complains of nasal congestion and Flonase added. 11/17: Patient had difficulty with oxygenation during the night and this morning transitioned to Airfo and partial nonrebreather. Pulse ox is currently running 90-92%, patient is prone. He has been afebrile, heart rate 88, blood pressure 104/63. Repeat d-dimer is elevated at 0.93. Blood sugar 167. C-reactive protein increased to 5.3. AST is 83 and ALT 51. Blood culture remains with no growth after 48 hours. Repeat chest x-ray reveals mild cardiomegaly with bilateral multifocal opacities consistent with Covid 19 infection. No significant change from most recent x-ray. Albuterol inhaler and Symbicort inhaler added. 11/18: Patient is currently on AirVo and nonrebreather with pulse ox of 93%. He's been afebrile, heart rate 85, blood pressure 103/68. Blood culture no growth at 72 hours 2 specimens. Plan to continue proning. Repeat laboratory studies ordered for tomorrow including inflammatory markers. The patient is having difficulty sleeping and melatonin added. Lovenox increased to twice daily dosing. 11/19: Patient remains in isolation. He is on AirVO plus nonrebreather with pulse ox of 93%. He has been afebrile, heart rate 85, blood pressure 122/69. Patient is found sitting in recliner and encouraged to prone when he is able to. Repeat blood work reveals WBC 12, hemoglobin 14.8, platelet count 282. D-dimer is 1.38. Other blood work is pending. Patient is continued on Decadron, vitamin supplements, Lovenox. He is on day #07/20 of Baricitinib. 11/20: Patient has been afebrile, heart rate 71, blood pressure 107/71, pulse ox 88-93% on AirVo plus nonrebreather. Patient seems to be depressed and frustrated with coarse. Noted that he started on Xanax yesterday by pulmonary. We will add and Remeron 7.5 mg at bedtime. Hemoglobin A1c came back at 6.4. Patient is encouraged to use incentive spirometry, increase activity, prone. Discussed CODE STATUS with patient and he wishes to be a full code. 11/21: Patient will pulse ox of 83% as he was on Airvo only and once nonrebreather was placed she went up to 89%. Patient is not eating much. He has been encouraged to take protein supplement, increase activity and prone but patient does not seem motivated. He was started on Remeron last night which will hopefully help with his mood and appetite. He has continued on Lovenox, dexamethasone, Baricitinib #09/19 repeat blood work reveals WBC 14.3. D-dimer increasing to 3.2. Electrolytes normal, creatinine 0.76. LDH is high at 1476, C-reactive protein stable 6.6. 11/22: Patient continues to be on airflow and nonrebreather and with minimal movement, pulse ox drops down to 82%, otherwise patient is maintaining 92-94%. One dose of IV Lasix ordered for today. Temperature max yesterday afternoon was 101.2. Heart rate in the 70s and 80s. Blood pressure 110/59. Urinalysis was negative for infection. Repeat blood work will be ordered for tomorrow. 11/23: Patient Was moved into ICU overnight. He has been on BiPAP through the night and pulse oxing 95% recently on his side, currently sitting on the edge of the bed pulse oxing 90%, with talking he drops to 83%. He is scheduled for PICC line insertion and plan to start TPN today. Patient has been afebrile, heart rate in the 60s, respiratory rate 28. WBC 12.0, hemoglobin 15, platelet count 351. Lymphocytes 11.1. D-dimer 2.46. Sodium 136, otherwise electrolytes are normal. BUN 30 creatinine 0.7. Blood sugar 128. Magnesium 2.5. Phosphorus 5.5. LDH 1691. C-reactive protein 13.4. Total protein 5.6. Blood cultures remain with no growth. Repeat chest x-ray this morning reveals stable diffuse bilateral infiltrates. Patient is on Baricitinib 10/20. Pulmonary has increased frequency of dexamethasone to twice daily and changed to IV6 mg IV twice daily. 11/24: Patient remain in the ICU, still on BiPAP with pulse ox is improving at this point. Continue dexamethasone and Baricitinib 11/20, patient had full meal this morning his TPN will be suspended after today. Patient will remain in the ICU at least for the next 48 hours. 11/25: Remain in the ICU still on BiPAP but his pulse ox is slightly bit better he still on dexamethasone and Baricitinib 12/20 seems to do slightly but better was agreed by intensive care studies TPN, patient oral intake is slightly but better and had slight improvement compared to yesterday. Surprisingly his marker went up slightly bit specially his LDH up to 2086 with C-reactive protein 3.6 kidney function remained good white blood cell climb up to 15.1 specially been on steroid. Chest x-ray still shows diffuse bilateral interstitial infiltrate and patchy opacification persistent but there is a slight improvement in the variation in the left lower lobe compared to few days earlier. 11/26: Patient remain on BiPAP with 100% oxygen to keep his pulse ox around 92 percentile, his d-dimer continue to be quite bit elevated today is having Doppler of the lower extremity but notes CT at this point. Remain on Symbicort, and albuterol HFA, his white blood cell is down 17,000, blood sugars better control. Chest x-ray still showed patchy infiltrate throughout both lung felix persistent didn't change. Patient had mild anxiety with no pain currently. 11/27: Patient remains in the intensive care unit. He is placed on airflow for eating and pulse ox drops to the 7083 percent range. Pulse ox 90-93% on100% BiPAP. He is afebrile, heart rate in the 70s, respiratory rate 27 and 32, blood pressure 102/71. WBC 21.5, lymphocytes 0.6. D-dimer 7.29. Blood sugars running between 111 and 171. Ferritin level [id number]. ALT 54, alkaline phosphatase 152. CK 27, C-reactive protein 2.9. Repeat chest x-ray reveals borderline cardiomegaly with prominent pulmonary vascular markings. Diffuse increased lung markings are present. Correlate for heart failure. Atypical pneumonia should be considered. Lower extremity ultrasound negative for DVT bilaterally. 11/28: Patient remains in the intensive care unit and found sitting in a chair at the bedside. He is continued on BiPAP and switched over to Arava and nonrebreather for meals. Repeat chest x-ray essentially unchanged. Repeat blood work reveals WBC 20.4, hemoglobin 14.8, platelet count 130. Sodium 134, potassium 4.8, creatinine 0.62. LDH 2934. C-reactive protein 3.3, d-dimer 10.2. CT angiogram of the chest has been ordered by pulmonary medicine which revealed slightly suboptimal study without evidence of acute pulmonary embolism. Mild cardiomegaly with bilateral cities and multifocal organizing consolidations consistent with Covid19 infection. Lovenox has been changed to 40 mg daily and dexamethasone changed to Solu-Medrol 60 mg every 6 hours. Taco michelle has completed course of Baricitinib. 11/29: Patient remains in the intensive care unit, patient is utilizing BiPAP and also Airvo with nonrebreather mask added at times as he tolerates. His ox ygenation seems to be improving at 89-93%. Respiratory rate 24, heart rate 88, blood pressure 107/58. Patient does verbalize that he is feeling somewhat better today. WBC 16.4, hemoglobin 15.1, platelet count 120. D-dimer 13.49, C- reactive protein 2, LDH 2086, CK 47. Repeat chest x-ray reveals correlate for pneumonia, edema or pulmonary hemorrhage, there is cardiomegaly. Patient is currently continued on Lovenox, Solu-Medrol, bronchodilators and vitamin supplements. REVIEW OF SYSTEMS Constitutional: No fever, no chills, no night sweats. No weight change. Repor ts weakness, reports fatigue reports lethargy. Reports daytime sleepiness. EENT: No headache. No blurred vision or double vision, no loss of vision. No loss of Hearing,no dizziness. No nasal drainage or congestion. No epistaxis. No sore throat. Lungs Reported shortness of breath, reported cough, no sputum production. No wheezing. Dyspnea with minimal exertion. dyspnea at rest. Cardiovascular: No chest pain, no lower extremity edema. No palpitations. No paroxysmal nocturnal dyspnea. No orthopnea. No lightheadedness or dizziness. No syncopal episodes. Abdominal: No abdominal pain. No nausea, vomiting. Reports diarrhea. No constipation. No bloody or tarry stools. Reports loss of appetite. Genitourinary: No dysuria, no increased frequency, no urgency. No urinary retention. Musculoskeletal: No myalgias. Generalized muscle weakness, no gait dysfunction, no frequent falls. No back pain. No neck pain. Integumentary: No wounds, no lesions. No rash or pruritus. No unusual bruising. Neurologic: No aphasia. No facial droop. No change in mentation. No head injury. No headache. No paresthesia. Psychiatric: No depression. No anxiety. No mood swings. Insomnia. Reports difficulty sleeping. Endocrine: Noted abnormal blood sugars. PHYSICAL EXAMINATION Gen: This is a 60-year-old obese male. Patient developed significant shortness of breath with minimal activity. He is resting in recliner with Airvo. HEENT: Head is atraumatic, normocephalic. Pupils equal, round. Sclerae is anicteric. NECK: Supple. No JVD. No lymphadenopathy. No thyromegaly. LUNGS: Diminished breath sounds. No wheezes or rhonchi. Positive retractions. noted accessory muscle usage. HEART: Regular rate and rhythm. No murmur. ABDOMEN: obese. Soft. Bowel sounds are present. No masses. No tenderness. EXTREMITIES: No pedal edema. No calf tenderness. NEUROLOGICAL: Patient is awake, alert and oriented x3. Cranial nerves 2 through 12 are grossly intact. ASSESSMENT AND PLAN 1. Acute respiratory failure: Secondary to COVID-19, consult with pulmonary medicine appreciated, continue oxygen therapy including BiPAP, Solu-Medrol, Lovenox, bronchodilators and vitamin supplements 2. Sepsis (POA) secondary to COVID-19 pneumonia, with acute hypoxemic respiratory failure, diagnosis was of 11/08/2020, symptoms started December 06 first. Patient is not vaccinated, and since being seen in consultation by pulmonary, he is on dexamethasone transitioned to Solu-Medrol IV 60 mg every 6 hours, Lovenox 40 mg daily, completed course of Baricitinib, continue albuterol inhaler, Symbicort inhaler, prone positioning. Continue O2 via BiPAP is 100% O2 3. Moderate protein calorie malnutrition secondary to poor oral intake. P atient is off TPN his doing better with oral intake. 4. DVT prophylaxis Lovenox Increased frequency to twice daily. Doppler of lower extremity negative for DVT bilaterally. 5. GI prophylaxis Pepcid no abdominal pain. 6. BPH without LUTs no sign of urinary retention. 7. Proteinuria, unknown cause, 8. Dymetabolic syndrome, monitor for hyperglycemia, A1c 6.4. NovoLog scale before meals and at bedtime. CODE Status: Full code Prognosis: Still guarded. Impression and plan of care have been directed as dictated by the signing physician. Sanam Valentine nurse practitioner acting as scribe for signing physician. Objective - Vital Signs Vital signs: Vital Signs Temp 97.8 F 11/29/20 08:00 Pulse 72 11/29/20 08:00 Resp 24 11/29/20 08:00 BP 106/67 11/29/20 08:00 Pulse Ox 86 L 11/29/20 08:00 Intake & Output 11/28/20 11/29/20 11/29/20 18:59 06:59 18:59 Intake Total 550 240 Output Total 2049 400 Balance -1500 -160 Weight 110.2 kg Intake: IV 150 Sodium Chloride 0.9% 1, 150 000 ml @ 20 mls/hr IV . Q24H HIRAM Rx#:[id number] Oral 400 240 Output: Urine 2049 400 Other: Voiding Method Urinal Urinal # Voids 0 0 0 - Labs CBC & Chem 7: 11/29/20 04:25 11/29/20 07:00 Labs: Abnormal Lab Results - Last 24 Hours (Table) 11/28/20 11/28/20 11/28/20 Range/Units 11:06 17:17 19:59 WBC (3.8-10.6) k/uL Plt Count (150-450) k/uL Neutrophils # (1.3-7.7) k/uL Lymphocytes # (1.0-4.8) k/uL D-Dimer (<0.60) mg/L FEU Sodium (137-145) mmol/L Carbon Dioxide (22-30) mmol/L BUN (9-20) mg/dL Glucose (74-99) mg/dL POC Glucose (mg/dL) 165 H 119 H 210 H (75-99) mg/dL ALT (4-49) U/L Alkaline Phosphatase (38-126) U/L Lactate Dehydrogenase (313-618) U/L Creatine Kinase (55-170) U/L C-Reactive Protein (<1.0) mg/dL Total Protein (6.3-8.2) g/dL Albumin (3.5-5.0) g/dL 11/29/20 11/29/20 11/29/20 Range/Units 04:24 04:25 06:53 WBC 16.4 H (3.8-10.6) k/uL Plt Count 120 L (150-450) k/uL Neutrophils # 15.1 H (1.3-7.7) k/uL Lymphocytes # 0.6 L (1.0-4.8) k/uL D-Dimer 13.49 H (<0.60) mg/L FEU Sodium (137-145) mmol/L Carbon Dioxide (22-30) mmol/L BUN (9-20) mg/dL Glucose (74-99) mg/dL POC Glucose (mg/dL) 146 H (75-99) mg/dL ALT (4-49) U/L Alkaline Phosphatase (38-126) U/L Lactate Dehydrogenase (313-618) U/L Creatine Kinase (55-170) U/L C-Reactive Protein (<1.0) mg/dL Total Protein (6.3-8.2) g/dL Albumin (3.5-5.0) g/dL 11/29/20 Range/Units 07:00 WBC (3.8-10.6) k/uL Plt Count (150-450) k/uL Neutrophils # (1.3-7.7) k/uL Lymphocytes # (1.0-4.8) k/uL D-Dimer (<0.60) mg/L FEU Sodium 136 L (137-145) mmol/L Carbon Dioxide 33 H (22-30) mmol/L BUN 41 H (9-20) mg/dL Glucose 145 H (74-99) mg/dL POC Glucose (mg/dL) (75-99) mg/dL ALT 53 H (4-49) U/L Alkaline Phosphatase 133 H (38-126) U/L Lactate Dehydrogenase 2086 H (313-618) U/L Creatine Kinase 47 L (55-170) U/L C-Reactive Protein 2.0 H (<1.0) mg/dL Total Protein 5.6 L (6.3-8.2) g/dL Albumin 2.9 L (3.5-5.0) g/dL
[2020-11-29 14:41] LABS: Ferritin 1598.5 ng/mL (22.0-322.0)
[2020-11-29 17:13] LABS: Glucose,Whole Blood 149 mg/dL (75-99)
[2020-11-29 20:07] LABS: Ferritin 1473.4 ng/mL (22.0-322.0)
[2020-11-29 21:04] LABS: Glucose,Whole Blood 160 mg/dL (75-99)
[2020-11-29] MEDS: MIRTAZAPINE 15 MG TAB PO SCH (21:04)
[2020-11-29] MEDS: MELATONIN 3 MG TABLET PO SCH (21:04)
[2020-11-29] MEDS: ACETAMINOPHEN TAB 325 MG TAB PO PRN (21:05)
[2020-11-29] MEDS: SODIUM CHLORIDE 0.9% 1,000 ML IV SCH (21:06)
[2020-11-30] MEDS: methylPREDNISolone SOD SUCCI 125 MG/2 ML VIAL IV SCH ×3 (06:28→17:26)
[2020-11-30 06:33] LABS: Glucose,Whole Blood 155 mg/dL (75-99)
[2020-11-30] MEDS: INSULIN ASPART (NovoLOG) 100 UNIT/ML VIAL SQ SCH ×4 (06:33→21:47)
[2020-11-30 06:42] LABS: ALT 63 U/L (4-49); AST 43 U/L (17-59); African American GFR (CKD) >90 (>60 ml/min/1.73 sqM); Alkaline Phosphatase 115 U/L (38-126); Anion Gap 5 mmol/L; Blood Urea Nitrogen 44 mg/dL (9-20); C Reactive Protein 1.5 mg/dL (<1.0); Calcium 9.2 mg/dL (8.4-10.2); Carbon Dioxide 30 mmol/L (22-30); Chloride 100 mmol/L (98-107); Creatine Kinase 78 U/L (55-170); Glucose 156 mg/dL (74-99); Non-African American GFR(CKD) >90 (>60 ml/min/1.73 sqM); Potassium 4.5 mmol/L (3.5-5.1); Sodium 135 mmol/L (137-145); Total Bilirubin 0.7 mg/dL (0.2-1.3); Total Protein 5.7 g/dL (6.3-8.2)
--- NOTE | 2020-11-30 07:02 | XR ---
EXAMINATION TYPE: XR chest 1V portable DATE OF EXAM: 11/30/2020 HISTORY: Shortness of breath. COMPARISON: 11/29/2020 TECHNIQUE: Single view of the chest is submitted. FINDINGS: Demonstrated are scattered senescent parenchymal change. Coarse infiltrates seen bilaterally without significant interval change. The heart is stable. Hilar and mediastinal structures are within normal limits. Degenerative changes are seen of the dorsal spine. IMPRESSION: 1. Coarse infiltrates seen bilaterally without significant interval change.
[2020-11-30 07:15] LABS: LDH 2157 U/L (313-618)
[2020-11-30 08:07] LABS: Basophils % (A) 0 %; Eosinophils # (A) 0.1 k/uL (0-0.7); Eosinophils % (A) 1 %; HCT 45.6 % (39.0-53.0); Lymphocytes # (A) 0.5 k/uL (1.0-4.8); Lymphocytes % (A) 3 %; MCH 28.9 pg (25.0-35.0); MCHC 32.9 g/dL (31.0-37.0); MCV 87.7 fL (80.0-100.0); Mean Platelet Volume 8.2; Monocytes # (A) 0.4 k/uL (0-1.0); Monocytes % (A) 2 %; Neutrophils # (A) 18.2 k/uL (1.3-7.7); Neutrophils % (A) 94 %; Platelet Count 126 k/uL (150-450); RDW 13.3 % (11.5-15.5); WBC 19.4 k/uL (3.8-10.6)
[2020-11-30] MEDS: SYMBICORT 160-4.5 MCG INHALER INHALATION SCH ×2 (08:23→19:38)
[2020-11-30] MEDS: ALBUTEROL HFA INHALER INHALATION SCH ×3 (08:23→19:38)
[2020-11-30] MEDS: CHOLECALCIFEROL 25 MCG (1000 IU) TABLET PO SCH (08:56)
[2020-11-30] MEDS: FLUTICASONE 50MCG/SPRAY NASAL 16GM EA NOSTRIL SCH (08:56)
[2020-11-30] MEDS: ALPRAZolam 0.25 MG TAB PO SCH ×3 (08:56→21:48)
[2020-11-30] MEDS: ENOXAPARIN 40 MG/0.4 ML SYRINGE SQ SCH (08:56)
[2020-11-30] MEDS: ZINC SULFATE 220 MG CAP PO SCH (08:56)
[2020-11-30] MEDS: ASCORBIC ACID 500 MG TAB PO SCH ×2 (08:56→21:48)
[2020-11-30] MEDS: DICLOFENAC SODIUM GEL 100 GM TUBE TOPICAL SCH ×4 (10:41→21:49)
--- NOTE | 2020-11-30 11:43 | P.PN ---
Subjective Progress Note Date: 11/30/20 Principal diagnosis: COVID-19 pneumonia On today's evaluation on the 11/15/2020 patient seen in follow-up on medical surgical floor. His O2 saturations are marginal, on 6 L his pulse ox is 90%. Does not seem to be in any acute distress, no increased work of breathing. Occasional cough, nonproductive, patient was outside the window for Remdesivir. He is not vaccinated, S x-ray on admission showed significant patchy infiltrates compatible with his history of COVID-19 infection. Blood pressure has been stable, afebrile. His labs have been reviewed, d-dimer is 0.52, which is 888, CRP is 5.7. Patient is currently on Decadron 6 mg, he is on prophylactic dose Lovenox. Today's evaluation on 11/16/2020 patient seen in follow-up on medical surgical floor, his oxygen demand has increased in the last 24 hours, and his FiO2 was titrated to 10 L, his pulse ox is 91-92%, does not appear to be in any acute respiratory distress, he sitting up in the chair, is awake and alert, oriented 3, his been afebrile overnight, blood pressure is been stable, today's chest x- ray shows patchy perihilar and left lower lobe infiltrate persistence. The patient was started on on Bariticinib, Decadron 6 mg daily, and prophylactic dose of Lovenox. His appetite is poor per nursing staff, he seems to be depressed. Labs have been reviewed, his d-dimer is low at 0.50, his LDH from yesterday was 888, and CRP was 5.7. On 11/17/2020 patient seen in follow-up on the surgical floor. He is currently on Airvo 60 L and FiO2 of 94% in addition to partial nonrebreather mask and his pulse ox is around 90-92%. Patient easily desaturates with any activity. He is currently on his abdomen, he is self proning, and his oxygen does improve when he does that with a pulse ox of 95-96%, he tolerates proning fairly well. Patient is on day 3 of Bariticinib, he is also on Decadron 6 g daily, and prophylactic dose of Lovenox. His chest x-ray today shows mild cardiomegaly with bilateral multifocal opacities with no significant change from most recent chest x-ray. Today's labs have been reviewed, with blood cell count is 10, hemoglobin is 14.9, lymphocyte count is 0.7, d-dimer is 0.93, electrolytes are within normal limits, BUN is 25 creatinine 0.82. Reevaluated today on 11/18/2020, patient remains on airvo , and on nonrebreather mask, his FiO2 is at 90%, and flow is 60 L/m via airvo. Saturation is marginal, however the patient seems to be rather comfortable. His O2 saturation is in the low 90s, desaturates easily with activity. He is doing self groaning, and he does improve with self groaning hence I'm recommending titrating his FiO2 down as his oxygenation improved. BC today is relatively normal d-dimer is up a bit at 0.93. Electrolytes are normal renal profile is normal. Last chest x-ray from 11/17 continues to show bilateral multifocal opacities consistent with COVID-19 infection, not much improvement noted based on the chest x-ray. Patient was reevaluated today on 11/19/2020, remains on the regular medical floor, remains on Airvo plus nonrebreather mask, and his O2 saturation is in the range of 93-96%. Patient is surprisingly comfortable, sitting in a recliner, not in any distress. WBC count is 12 hemoglobin 14.8 electrolytes are normal renal profile is normal, LDH is 566 and his C-reactive protein is 8.1. Slightly bit more elevated compared to yesterday. Patient remains on the COVID- 19 cocktail, remains on Lovenox at 40 mg subcu twice a day, and he is on Decadron, as well as baricitinib Reevaluated today on 11/20/2020, patient is basically about the same, not much different today from yesterday. O2 saturation remains marginal in the low 90s, patient remains on airvo at 90%, and 60 L flow. He also has a nonrebreather mask, and O2 saturation remains marginal at best. Clinically however the patient is about the same, has been adjusting his sleep positions and sometimes he notices significant improvement when he lays on the left side of the right side. Unable to go into a prone position. CBC is relatively normal his d-dimer is a bit up 1.38 his electrolytes are normal renal profile is normal, LDH is 566 C-reactive protein is a bit higher today 8.1. Pro-calcitonin is 0.11 Patient was reevaluated today on 11/21/2020, remains on airvo at maximal flow and FiO2, patient remains on nonrebreather mask, O2 saturation is in the high 80s and low 90s. Patient feels better in the right lateral decubitus position, he is basically overall about the same. He is not demonstrating any significant improvement or any worsening. Remains on all the COVID-19 cocktail, not much changed. D-dimer 3.2 today. Patient was reevaluated today on 11/23/2020, I saw him yesterday and I recommended transfer to the ICU. Remains in the ICU, patient is on BiPAP, IPAP 12 EPAP of 6 and FiO2 is 100%. His O2 saturation is marginal in the low 90s, improves when the patient goes in the left lateral decubitus position. Hence I advised him to stay as often as he can in the left lateral decubitus position. Patient is scheduled to have a PICC line placed for TPN. Has not been eating much, and his interstitial status is poor. Patient remains on baricitinib, and he is on the rest of the COVID-19 cocktail. Today's d-dimer is 2.46. Clinicall y however and surprisingly the patient is feeling comfortable, does not seem to be in distress. WBC count is 12 hemoglobin is 15 electrolytes are normal renal profile is normal, inflammatory markers are high LDH of 1691 and C-reactive protein is 13.4. Pro-calcitonin remains low at 0.09. Reevaluated today on 11/24/2020, patient remains in the ICU, transitioned yesterday from BiPAP to airvo at 60 L flow, and 90% FiO2. His O2 saturation is marginal, patient did use BiPAP last night. He went off BiPAP at 5 AM this morning. Remains on IV fluid at 75 mL/h, he is also on TPN via PICC line. Over all the patient is holding nicely, remains on Decadron twice a day, is also on baricitinib seems to be tolerating both well. Patient is considered marginal at best, I'm not seeing significant improvement and I'm not seeing worsening at this point. WBC count today is noted to be high at 16.7. Electrolytes are normal renal profile is normal, his last pro-calcitonin 2 days ago was 0.09, relatively unremarkable. Reevaluated today on 11/25/2020, patient remains in the ICU, alternating between airvo and BiPAP, nonetheless he remains on relatively high FiO2 and high flow if clinically the patient is about the same, his O2 saturation remains marginal in the high 80s and low 90s. Patient remains on TPN which I plan to discontinue since the patient is eating better today, he feels a bit better today, chest x- ray is basically about the same. Patient remains on the COVID-19 cocktail, on multiple drugs as listed below. Respiratory BC count is 15.1 hemoglobin 14.3 d- dimer is 5.48, patient remains on Lovenox at 40 mg subcu twice a day. His renal profile is normal his electrolytes are normal, LDH is 2086 and C-reactive protein is 3.6. His LDH is higher than yesterday, his C-reactive protein is lower, and his d-dimer is higher. On 11/26/2020 patient seen in follow-up in intensive care unit. He is awake and alert, oriented 3, he is currently off BiPAP, and she is on Airvo at 60 L and FiO2 of 90%, and his pulse ox is around 84-85%. She does wear BiPAP support with pressure of 12 and 6 and FiO2 of 100%, and usually his O2 saturations are better on BiPAP support and run at 90-92%. he does come off the BiPAP to eat meals. Seems fairly comfortable, despite low O2 saturations. Afebrile, hemodynamically has been stable. He is on IV 0.9 normal saline at a rate of 75 ML per hour, no other drips, he continues on Baricitinib 4 mg daily, since 11/15/2020. He remains on Decadron 6 mg twice daily, and Lovenox 40 mg twice daily. Today's chest x-ray has been reviewed showing patchy infiltrates throughout both lung felix, without significant change since yesterday. Today's labs have been reviewed, his d-dimer is at 6.6, slightly increased from yesterday from 5.48. His electrolytes are unremarkable, B1 is 25 creatinine 0.67, LDH has increased to 2423, and CRP actually came down and is down to 3, pro-calcitonin level was repeated and came back negative at 0.09. White blood cell count is 17.4 on today's labs, lymphocyte count is 0.7. Blood cultures have shown no growth. The patient is seen today 11/27/2020 in follow-up in the intensive care unit. He is currently sitting up in bed. Awake and alert in mild respiratory distress. He is currently on theAirVo high flow oxygen device for meals at 60 L/m and 90% FiO2. He's been mainly BiPAP dependent 12/6 at 100% FiO2 to maintain O2 saturations 88-92%. He has 0.9 normal saline at 75 ML's per hour. He is eating well still. Chest x-ray is reviewed and continues to show diffuse increased lung markings. Prominent pulmonary vascular congestion. Blood cultures revealed no growth. White count 21.5. Hemoglobin 14.3. Lymphocytes 0.6. D-dimer 7.29. Sodium 135. Potassium 4.7. Creatinine 0.74. AST 48, ALT 54. C-reactive protein 2.9. Pro-calcitonin 0.09. He remains on Baricitinib, Decadron, Lovenox, vitamin supplements. Dopplers of the lower extremities were negative for DVT bilaterally. The patient is seen today 11/28/2020 in follow-up in the intensive care unit. He is currently sitting up in a chair at the bedside. Awake and alert. Still requiring BiPAP 12/6 and 100% FiO2 to maintain O2 saturations in the high 80s low 90s. He is alternating with the AirVo at 60 L/m and 90% FiO2 for meals. Chest x-ray continues to revealed diffuse interstitial and patchy bilateral infiltrates. Some slight improvement in the left base but otherwise unchanged. White count 20.4. Hemoglobin 14.8. Platelets 130. Sodium 134. Potassium 4.8. Creatinine 0.62. AST 55. ALT 55. LDH 2934. C-reactive protein 3.3. D- dimer 10.2. CT angiogram of the chest is pending. He remains on Baricitinib, Decadron, Lovenox, vitamin supplements. The patient is seen today 11/29/2020 in follow-up in the intensive care unit. He is currently resting fairly comfortably in bed. Remains awake, alert. He did utilize BiPAP all night at 12/600% FiO2. He'll be switched over to care of O high flow oxygen at 60 L and 94% for breakfast. CT angiogram ruled out pulmonary embolism. Continues with diffuse bilateral infiltrates. White count 16.4. Hemoglobin 15.1 platelet count 120. D-dimer 13.5. Sodium 136. Potassium 4.6. Creatinine 0.76. Glucose 145. LDH 2086. C-reactive protein 2.0. He has completed his course of Baricitinib. He is continued on IV Solu- Medrol, Lovenox, vitamin supplement, Symbicort and albuterol. The patient is seen today November 30 2020 in follow-up in the intensive care unit. He is currently resting in bed. Awake and alert in no acute distress. He remains on Arava at 60 L/m and 94% FiO2. He's been off the BiPAP. Chest x- ray continues to show coarse infiltrates bilaterally without much improvement. White count 19.4. Hemoglobin 15.0. Platelets 126. Sodium 135. Potassium 4.5. Creatinine 0.73. LDH 2157. C-reactive protein 1.5. D-dimer 10.2. He remains on Symbicort and albuterol along with Lovenox, IV Solu-Medrol, Lovenox, vitamin supplements. He has completed his course of Baricitinib. Objective - Vital Signs Vital signs: Vital Signs Temp 97.7 F 11/30/20 08:00 Pulse 98 11/30/20 11:00 Resp 27 H 11/30/20 11:00 BP 114/67 11/30/20 11:00 Pulse Ox 87 L 11/30/20 11:00 Intake & Output 11/29/20 11/30/20 11/30/20 18:59 06:59 18:59 Intake Total 220 290 340 Output Total 775 600 250 Balance -555 -310 90 Weight 110.2 kg 109 kg Intake: Intake, IV Titration 200 220 100 Amount Sodium Chloride 0.9% 1, 200 220 100 000 ml @ 20 mls/hr IV . Q24H [facility] Rx#:[id number] Oral 20 70 240 Output: Urine 775 600 250 Other: Voiding Method Urinal Urinal Urinal # Voids 0 0 0 - Exam GENERAL EXAM: Alert, very pleasant, weak 60-year-old male patient, on AirVo at 60 L and FiO2 of 94%, he has been remaining off BiPAP HEAD: Normocephalic/atraumatic. EYES: Normal reaction of pupils, equal size. Conjunctiva pink, sclera white. NOSE: Clear with pink turbinates. THROAT: No erythema or exudates. NECK: No masses, no JVD, no thyroid enlargement, no adenopathy. CHEST: No chest wall deformity. Symmetrical expansion. LUNGS: Equal air entry with crackles in the bilateral posterior bases CVS: Regular rate and rhythm, normal S1 and S2, no gallops, no murmurs, no rubs ABDOMEN: Soft, nontender. No hepatosplenomegaly, normal bowel sounds, no guarding or rigidity. EXTREMITIES: No clubbing, no edema, no cyanosis, 2+ pulses and upper and lower extremities. MUSCULOSKELETAL: Muscle strength and tone normal. SPINE: No scoliosis or deformity SKIN: No rashes CENTRAL NERVOUS SYSTEM: No focal deficits, tone is normal in all 4 extremities. PSYCHIATRIC: Alert and oriented -3. Appropriate affect. Intact judgment and insight. - Labs CBC & Chem 7: 11/30/20 07:53 11/30/20 05:40 Labs: Abnormal Lab Results - Last 24 Hours (Table) 11/28/20 11/29/20 11/29/20 Range/Units 03:26 07:00 12:25 WBC (3.8-10.6) k/uL Plt Count (150-450) k/uL Neutrophils # (1.3-7.7) k/uL Lymphocytes # (1.0-4.8) k/uL D-Dimer (<0.60) mg/L FEU Sodium (137-145) mmol/L BUN (9-20) mg/dL Glucose (74-99) mg/dL POC Glucose (mg/dL) 212 H (75-99) mg/dL Ferritin 1473.4 H 1598.5 H (22.0-322.0) ng/mL ALT (4-49) U/L Lactate Dehydrogenase (313-618) U/L C-Reactive Protein (<1.0) mg/dL Total Protein (6.3-8.2) g/dL Albumin (3.5-5.0) g/dL 11/29/20 11/29/20 11/30/20 Range/Units 17:12 21:03 04:42 WBC (3.8-10.6) k/uL Plt Count (150-450) k/uL Neutrophils # (1.3-7.7) k/uL Lymphocytes # (1.0-4.8) k/uL D-Dimer 10.20 H (<0.60) mg/L FEU Sodium (137-145) mmol/L BUN (9-20) mg/dL Glucose (74-99) mg/dL POC Glucose (mg/dL) 149 H 160 H (75-99) mg/dL Ferritin (22.0-322.0) ng/mL ALT (4-49) U/L Lactate Dehydrogenase (313-618) U/L C-Reactive Protein (<1.0) mg/dL Total Protein (6.3-8.2) g/dL Albumin (3.5-5.0) g/dL 11/30/20 11/30/20 11/30/20 Range/Units 05:40 06:32 07:53 WBC 19.4 H (3.8-10.6) k/uL Plt Count 126 L (150-450) k/uL Neutrophils # 18.2 H (1.3-7.7) k/uL Lymphocytes # 0.5 L (1.0-4.8) k/uL D-Dimer (<0.60) mg/L FEU Sodium 135 L (137-145) mmol/L BUN 44 H (9-20) mg/dL Glucose 156 H (74-99) mg/dL POC Glucose (mg/dL) 155 H (75-99) mg/dL Ferritin (22.0-322.0) ng/mL ALT 63 H (4-49) U/L Lactate Dehydrogenase 2157 H (313-618) U/L C-Reactive Protein 1.5 H (<1.0) mg/dL Total Protein 5.7 L (6.3-8.2) g/dL Albumin 3.0 L (3.5-5.0) g/dL Assessment and Plan Assessment: 1 Acute Covid 19 related pneumonia. The patient became symptomatic approximately 8 days prior to arrival. Presented with worsening shortness of breath and bilateral pneumonia. Patient is not vaccinated. The patient had not received any outpatient treatments for Covid 19 infection. Diagnosis est ablished during this current admission. Started on Bariticinib on 11/15/2020 in view of worsening hypoxic respiratory failure. Patient was outside the window for Remdesivir 2 Acute hypoxic respiratory failure which has significantly progressed since admission, and patient is currently on Airvo at 60 L and FiO2 of 94% for meals but mainly alternating with BiPAP 02/11 at 100%. He was transferred to the intensive care unit on 11/22/2020 3 Obesity with a BMI of 37. 4 Increased inflammatory markers related to acute COVID-19 pneumonia 5 Increased d-dimer, related to viral pneumonia, currently on Lovenox 40 mg daily, Dopplers of the lower extremity negative, CT angiogram pending today Plan: The patient was seen and evaluated by Dr. Cochran Chest x-ray and labs reviewed Stable and remains on AirVo, off BiPAP Completed Baricitinib Continue Lovenox, Solu-Medrol, bronchodilators, vitamin supplements Titrate the FiO2 as tolerated We will continue to follow and make further recommendations based on his clinical status Critical care time 36 minutes I, the cosigning physician, performed a history & physical examination of the patient. Lungs sounds with crackles in the bilateral posterior bases. Maintaining good O2 saturations in the 90s on AirVo high flow oxygen at 60 L/m at 94% FiO2, I discussed the assessment and plan of care with my nurse practitioner, Roseanne Carey. I attest to the above note as dictated by her.
--- NOTE | 2020-11-30 12:00 | P.PN ---
Subjective Progress Note Date: 11/30/20 HISTORY OF PRESENT ILLNESS This is a pleasant 60-year-old gentleman patient of Dr. Ridge Christina. He doesn't see a physician often and does not note any medical diseases, except for obesity. He comes seen secondary to fever and chills, cough, starting December 06 first, along with muscle aches, lack of appetite and diarrhea. he was tested for call bid November 08, which required at week of reporting, subsequently was sent to emergency room secondary to worsening symptoms, including dyspnea on exertion, shortness of breath and worsening cough without hemoptysis. Fever, sh ortness of breath lingers, no treatment given to him prior to this admission. The is vaccinated, but the patient is not. He does not believe in vaccines at that time. He comes in the emergency room, with hypoxemia, with very minimal conversational dyspnea, chest x-ray, shows pulmonary infiltrate consistent with Covid pneumonia, oxygen currently is at 6 L nasal cannula, d-dimer was 0.6, LFTs are minimally elevated, 64 AST, lactic acid 2.0 sodium 132, creatinine of 0.9, glucose of 122, LDH of 888, CRP of 5.7. Urine protein noted, without hematuria or proteinuria. Covid was again retested 11/14, PCR is positive. Consult to Dr. Eduardo and pulmonary,, 11/16: Patient is currently on oxygen at 6 L nasal cannula increased to 7 L with humidified oxygen. Patient seen and followed by pulmonary medicine and has been started on Bariticinib, Decadron 6 mg daily, and prophylactic dose of Lovenox. He is reaching 1750 on incentive spirometry. Patient did have episode of diarrhea yesterday, none today and complains of decreased appetite. Patient complains of nasal congestion and Flonase added. 11/17: Patient had difficulty with oxygenation during the night and this morning transitioned to Airfo and partial nonrebreather. Pulse ox is currently running 90-92%, patient is prone. He has been afebrile, heart rate 88, blood pressure 104/63. Repeat d-dimer is elevated at 0.93. Blood sugar 167. C-reactive protein increased to 5.3. AST is 83 and ALT 51. Blood culture remains with no growth after 48 hours. Repeat chest x-ray reveals mild cardiomegaly with bilateral multifocal opacities consistent with Covid 19 infection. No significant change from most recent x-ray. Albuterol inhaler and Symbicort inhaler added. 11/18: Patient is currently on AirVo and nonrebreather with pulse ox of 93%. He's been afebrile, heart rate 85, blood pressure 103/68. Blood culture no growth at 72 hours 2 specimens. Plan to continue proning. Repeat laboratory studies ordered for tomorrow including inflammatory markers. The patient is having difficulty sleeping and melatonin added. Lovenox increased to twice daily dosing. 11/19: Patient remains in isolation. He is on AirVO plus nonrebreather with pulse ox of 93%. He has been afebrile, heart rate 85, blood pressure 122/69. Patient is found sitting in recliner and encouraged to prone when he is able to. Repeat blood work reveals WBC 12, hemoglobin 14.8, platelet count 282. D-dimer is 1.38. Other blood work is pending. Patient is continued on Decadron, vitamin supplements, Lovenox. He is on day #07/20 of Baricitinib. 11/20: Patient has been afebrile, heart rate 71, blood pressure 107/71, pulse ox 88-93% on AirVo plus nonrebreather. Patient seems to be depressed and frustrated with coarse. Noted that he started on Xanax yesterday by pulmonary. We will add and Remeron 7.5 mg at bedtime. Hemoglobin A1c came back at 6.4. Patient is encouraged to use incentive spirometry, increase activity, prone. Discussed CODE STATUS with patient and he wishes to be a full code. 11/21: Patient will pulse ox of 83% as he was on Airvo only and once nonrebreather was placed she went up to 89%. Patient is not eating much. He has been encouraged to take protein supplement, increase activity and prone but patient does not seem motivated. He was started on Remeron last night which will hopefully help with his mood and appetite. He has continued on Lovenox, dexamethasone, Baricitinib #09/19 repeat blood work reveals WBC 14.3. D-dimer increasing to 3.2. Electrolytes normal, creatinine 0.76. LDH is high at 1476, C-reactive protein stable 6.6. 11/22: Patient continues to be on airflow and nonrebreather and with minimal movement, pulse ox drops down to 82%, otherwise patient is maintaining 92-94%. One dose of IV Lasix ordered for today. Temperature max yesterday afternoon was 101.2. Heart rate in the 70s and 80s. Blood pressure 110/59. Urinalysis was negative for infection. Repeat blood work will be ordered for tomorrow. 11/23: Patient Was moved into ICU overnight. He has been on BiPAP through the night and pulse oxing 95% recently on his side, currently sitting on the edge of the bed pulse oxing 90%, with talking he drops to 83%. He is scheduled for PICC line insertion and plan to start TPN today. Patient has been afebrile, heart rate in the 60s, respiratory rate 28. WBC 12.0, hemoglobin 15, platelet count 351. Lymphocytes 11.1. D-dimer 2.46. Sodium 136, otherwise electrolytes are normal. BUN 30 creatinine 0.7. Blood sugar 128. Magnesium 2.5. Phosphorus 5.5. LDH 1691. C-reactive protein 13.4. Total protein 5.6. Blood cultures remain with no growth. Repeat chest x-ray this morning reveals stable diffuse bilateral infiltrates. Patient is on Baricitinib 10/20. Pulmonary has increased frequency of dexamethasone to twice daily and changed to IV6 mg IV twice daily. 11/24: Patient remain in the ICU, still on BiPAP with pulse ox is improving at this point. Continue dexamethasone and Baricitinib 11/20, patient had full meal this morning his TPN will be suspended after today. Patient will remain in the ICU at least for the next 48 hours. 11/25: Remain in the ICU still on BiPAP but his pulse ox is slightly bit better he still on dexamethasone and Baricitinib 12/20 seems to do slightly but better was agreed by intensive care studies TPN, patient oral intake is slightly but better and had slight improvement compared to yesterday. Surprisingly his marker went up slightly bit specially his LDH up to 2086 with C-reactive protein 3.6 kidney function remained good white blood cell climb up to 15.1 specially been on steroid. Chest x-ray still shows diffuse bilateral interstitial infiltrate and patchy opacification persistent but there is a slight improvement in the variation in the left lower lobe compared to few days earlier. 11/26: Patient remain on BiPAP with 100% oxygen to keep his pulse ox around 92 percentile, his d-dimer continue to be quite bit elevated today is having Doppler of the lower extremity but notes CT at this point. Remain on Symbicort, and albuterol HFA, his white blood cell is down 17,000, blood sugars better control. Chest x-ray still showed patchy infiltrate throughout both lung felix persistent didn't change. Patient had mild anxiety with no pain currently. 11/27: Patient remains in the intensive care unit. He is placed on airflow for eating and pulse ox drops to the 7083 percent range. Pulse ox 90-93% on100% BiPAP. He is afebrile, heart rate in the 70s, respiratory rate 27 and 32, blood pressure 102/71. WBC 21.5, lymphocytes 0.6. D-dimer 7.29. Blood sugars running between 111 and 171. Ferritin level [id number]. ALT 54, alkaline phosphatase 152. CK 27, C-reactive protein 2.9. Repeat chest x-ray reveals borderline cardiomegaly with prominent pulmonary vascular markings. Diffuse increased lung markings are present. Correlate for heart failure. Atypical pneumonia should be considered. Lower extremity ultrasound negative for DVT bilaterally. 11/28: Patient remains in the intensive care unit and found sitting in a chair at the bedside. He is continued on BiPAP and switched over to Arava and nonrebreather for meals. Repeat chest x-ray essentially unchanged. Repeat blood work reveals WBC 20.4, hemoglobin 14.8, platelet count 130. Sodium 134, potassium 4.8, creatinine 0.62. LDH 2934. C-reactive protein 3.3, d-dimer 10.2. CT angiogram of the chest has been ordered by pulmonary medicine which revealed slightly suboptimal study without evidence of acute pulmonary embolism. Mild cardiomegaly with bilateral cities and multifocal organizing consolidations consistent with Covid19 infection. Lovenox has been changed to 40 mg daily and dexamethasone changed to Solu-Medrol 60 mg every 6 hours. Taco michelle has completed course of Baricitinib. 11/29: Patient remains in the intensive care unit, patient is utilizing BiPAP and also Airvo with nonrebreather mask added at times as he tolerates. His ox ygenation seems to be improving at 89-93%. Respiratory rate 24, heart rate 88, blood pressure 107/58. Patient does verbalize that he is feeling somewhat better today. WBC 16.4, hemoglobin 15.1, platelet count 120. D-dimer 13.49, C- reactive protein 2, LDH 2086, CK 47. Repeat chest x-ray reveals correlate for pneumonia, edema or pulmonary hemorrhage, there is cardiomegaly. Patient is currently continued on Lovenox, Solu-Medrol, bronchodilators and vitamin supplements. 11/30: Patient remains in intensive care unit, he sitting in a chair at the bedside. He is feeling a little bit better and breath sounds are sounding a little better from yesterday. He is currently on AirVO. Pulse ox is running 84-87%, he has been afebrile, heart rate in the 80s and 90s, respiratory rate in the 20s, blood pressure 110/67. Repeat blood work reveals WBC 19.4, platelet count 126. D-dimer 10.2, LDH 2157, CK 78, C-reactive protein 1.5. Sodium 135, BUN 44 creatinine 0.73. Patient is continued on Lovenox, IV Solu-Medrol, bronchodilators and supplements. REVIEW OF SYSTEMS Constitutional: No fever, no chills, no night sweats. No weight change. Reports weakness, reports fatigue no lethargy. Reports daytime sleepiness. EENT: No headache. No blurred vision or double vision, no loss of vision. No dizziness. No nasal drainage or congestion. No epistaxis. No sore throat. Lungs Reported shortness of breath, reported cough, no sputum production. No wheezing. Dyspnea with minimal exertion. dyspnea at rest. Cardiovascular: No chest pain, no lower extremity edema. No palpitations. No paroxysmal nocturnal dyspnea. No orthopnea. No lightheadedness or dizziness. No syncopal episodes. Abdominal: No abdominal pain. No nausea, vomiting. Reports diarrhea. No c onstipation. No bloody or tarry stools. Reports loss of appetite. Genitourinary: No dysuria, no increased frequency, no urgency. No urinary retention. Musculoskeletal: No myalgias. Generalized muscle weakness, no gait dysfunction, no frequent falls. No back pain. No neck pain. Integumentary: No wounds, no lesions. No rash or pruritus. No unusual bruising. Neurologic: No aphasia. No facial droop. No change in mentation. No head injury. No headache. No paresthesia. Psychiatric: No depression. No anxiety. No mood swings. Insomnia. Reports difficulty sleeping. Endocrine: Noted abnormal blood sugars. PHYSICAL EXAMINATION Gen: This is a 60-year-old obese male sitting in a chair in the ICU room. He is resting in recliner with Airvo in place and appears to be fairly comfortable. HEENT: Head is atraumatic, normocephalic. Pupils equal, round. Sclerae is anicteric. NECK: Supple. No JVD. No lymphadenopathy. No thyromegaly. LUNGS: Diminished breath sounds. No wheezes or rhonchi. Mild accessory muscle usage. HEART: Regular rate and rhythm. No murmur. ABDOMEN: obese. Soft. Bowel sounds are present. No masses. No tenderness. EXTREMITIES: No pedal edema. No calf tenderness. NEUROLOGICAL: Patient is awake, alert and oriented x3. Cranial nerves 2 through 12 are grossly intact. ASSESSMENT AND PLAN 1. Acute respiratory failure: Secondary to COVID-19, consult with pulmonary medicine appreciated, continue oxygen therapy including BiPAP, Solu-Medrol, Lovenox, bronchodilators and vitamin supplements 2. Sepsis (POA) secondary to COVID-19 pneumonia, with acute hypoxemic respiratory failure, diagnosis was of 11/08/2020, symptoms started December 06 first. Patient is not vaccinated, and since being seen in consultation by pulmonary, he is on dexamethasone transitioned to Solu-Medrol IV 60 mg every 6 h ours, Lovenox 40 mg daily, completed course of Baricitinib, continue albuterol inhaler, Symbicort inhaler, prone positioning. Continue O2 via BiPAP or AirVO. 3. Moderate protein calorie malnutrition secondary to poor oral intake. Patient is off TPN, continue regular diet with ensure protein supplements. 4. DVT prophylaxis Lovenox Increased frequency to twice daily. Doppler of lower extremity negative for DVT bilaterally. 5. GI prophylaxis Pepcid no abdominal pain. 6. BPH without LUTs no sign of urinary retention. 7. Proteinuria, unknown cause, 8. Dymetabolic syndrome, monitor for hyperglycemia, A1c 6.4. NovoLog scale before meals and at bedtime. CODE Status: Full code Prognosis: Still guarded. Impression and plan of care have been directed as dictated by the signing jerrell cowart. Sanam Valentine nurse practitioner acting as scribe for signing physician. Objective - Vital Signs Vital signs: Vital Signs Temp 97.7 F 11/30/20 08:00 Pulse 98 11/30/20 11:00 Resp 27 H 11/30/20 11:00 BP 114/67 11/30/20 11:00 Pulse Ox 87 L 11/30/20 11:00 Intake & Output 11/29/20 11/30/20 11/30/20 18:59 06:59 18:59 Intake Total 220 290 340 Output Total 775 600 250 Balance -555 -310 90 Weight 110.2 kg 109 kg Intake: Intake, IV Titration 200 220 100 Amount Sodium Chloride 0.9% 1, 200 220 100 000 ml @ 20 mls/hr IV . Q24H [facility] Rx#:[id number] Oral 20 70 240 Output: Urine 775 600 250 Other: Voiding Method Urinal Urinal Urinal # Voids 0 0 0 - Labs CBC & Chem 7: 11/30/20 07:53 11/30/20 05:40 Labs: Abnormal Lab Results - Last 24 Hours (Table) 11/28/20 11/29/20 11/29/20 Range/Units 03:26 07:00 12:25 WBC (3.8-10.6) k/uL Plt Count (150-450) k/uL Neutrophils # (1.3-7.7) k/uL Lymphocytes # (1.0-4.8) k/uL D-Dimer (<0.60) mg/L FEU Sodium (137-145) mmol/L BUN (9-20) mg/dL Glucose (74-99) mg/dL POC Glucose (mg/dL) 212 H (75-99) mg/dL Ferritin 1473.4 H 1598.5 H (22.0-322.0) ng/mL ALT (4-49) U/L Lactate Dehydrogenase (313-618) U/L C-Reactive Protein (<1.0) mg/dL Total Protein (6.3-8.2) g/dL Albumin (3.5-5.0) g/dL 11/29/20 11/29/20 11/30/20 Range/Units 17:12 21:03 04:42 WBC (3.8-10.6) k/uL Plt Count (150-450) k/uL Neutrophils # (1.3-7.7) k/uL Lymphocytes # (1.0-4.8) k/uL D-Dimer 10.20 H (<0.60) mg/L FEU Sodium (137-145) mmol/L BUN (9-20) mg/dL Glucose (74-99) mg/dL POC Glucose (mg/dL) 149 H 160 H (75-99) mg/dL Ferritin (22.0-322.0) ng/mL ALT (4-49) U/L Lactate Dehydrogenase (313-618) U/L C-Reactive Protein (<1.0) mg/dL Total Protein (6.3-8.2) g/dL Albumin (3.5-5.0) g/dL 11/30/20 11/30/20 11/30/20 Range/Units 05:40 06:32 07:53 WBC 19.4 H (3.8-10.6) k/uL Plt Count 126 L (150-450) k/uL Neutrophils # 18.2 H (1.3-7.7) k/uL Lymphocytes # 0.5 L (1.0-4.8) k/uL D-Dimer (<0.60) mg/L FEU Sodium 135 L (137-145) mmol/L BUN 44 H (9-20) mg/dL Glucose 156 H (74-99) mg/dL POC Glucose (mg/dL) 155 H (75-99) mg/dL Ferritin (22.0-322.0) ng/mL ALT 63 H (4-49) U/L Lactate Dehydrogenase 2157 H (313-618) U/L C-Reactive Protein 1.5 H (<1.0) mg/dL Total Protein 5.7 L (6.3-8.2) g/dL Albumin 3.0 L (3.5-5.0) g/dL
[2020-11-30] MEDS: SODIUM CHLORIDE 0.9% 1,000 ML IV SCH (12:39)
[2020-11-30 12:45] LABS: Glucose,Whole Blood 145 mg/dL (75-99)
[2020-11-30 16:30] LABS: Glucose,Whole Blood 169 mg/dL (75-99)
[2020-11-30 18:03] LABS: Ferritin 1783.1 ng/mL (22.0-322.0)
[2020-11-30 21:37] LABS: Glucose,Whole Blood 148 mg/dL (75-99)
[2020-11-30] MEDS: ACETAMINOPHEN TAB 325 MG TAB PO PRN (21:48)
[2020-11-30] MEDS: MELATONIN 3 MG TABLET PO SCH (21:48)
[2020-11-30] MEDS: MIRTAZAPINE 15 MG TAB PO SCH (21:49)
[2020-12-01] MEDS: methylPREDNISolone SOD SUCCI 125 MG/2 ML VIAL IV SCH ×5 (00:21→23:44)
[2020-12-01 05:36] LABS: Glucose,Whole Blood 193 mg/dL (75-99)
[2020-12-01] MEDS: INSULIN ASPART (NovoLOG) 100 UNIT/ML VIAL SQ SCH ×4 (05:44→21:02)
[2020-12-01 05:52] LABS: Basophils % (A) 0 %; Eosinophils # (A) 0.1 k/uL (0-0.7); Eosinophils % (A) 1 %; HCT 43.7 % (39.0-53.0); HGB 15.1 gm/dL (13.0-17.5); Lymphocytes # (A) 0.4 k/uL (1.0-4.8); Lymphocytes % (A) 2 %; MCH 29.8 pg (25.0-35.0); MCHC 34.4 g/dL (31.0-37.0); MCV 86.7 fL (80.0-100.0); Mean Platelet Volume 8.6; Monocytes # (A) 0.3 k/uL (0-1.0); Monocytes % (A) 2 %; Neutrophils # (A) 15.1 k/uL (1.3-7.7); Neutrophils % (A) 94 %; Platelet Count 112 k/uL (150-450); RBC 5.05 m/uL (4.30-5.90); RDW 13.9 % (11.5-15.5)
[2020-12-01 06:16] LABS: African American GFR (CKD) >90 (>60 ml/min/1.73 sqM); Anion Gap 6 mmol/L; Blood Urea Nitrogen 39 mg/dL (9-20); Calcium 8.8 mg/dL (8.4-10.2); Carbon Dioxide 28 mmol/L (22-30); Chloride 101 mmol/L (98-107); Glucose 204 mg/dL (74-99); Non-African American GFR(CKD) >90 (>60 ml/min/1.73 sqM); Potassium 4.6 mmol/L (3.5-5.1); Sodium 135 mmol/L (137-145)
[2020-12-01] MEDS: SYMBICORT 160-4.5 MCG INHALER INHALATION SCH ×2 (07:33→19:37)
[2020-12-01] MEDS: ALBUTEROL HFA INHALER INHALATION SCH ×3 (07:33→19:37)
[2020-12-01] MEDS: CHOLECALCIFEROL 25 MCG (1000 IU) TABLET PO SCH (08:30)
[2020-12-01] MEDS: ZINC SULFATE 220 MG CAP PO SCH (08:30)
[2020-12-01] MEDS: ASCORBIC ACID 500 MG TAB PO SCH ×2 (08:30→20:53)
[2020-12-01] MEDS: FLUTICASONE 50MCG/SPRAY NASAL 16GM EA NOSTRIL SCH (08:30)
[2020-12-01] MEDS: DICLOFENAC SODIUM GEL 100 GM TUBE TOPICAL SCH ×4 (08:30→20:26)
[2020-12-01] MEDS: ALPRAZolam 0.25 MG TAB PO SCH ×3 (08:30→20:53)
[2020-12-01] MEDS: ENOXAPARIN 40 MG/0.4 ML SYRINGE SQ SCH (08:30)
--- NOTE | 2020-12-01 10:37 | P.PN ---
Subjective Progress Note Date: 12/01/20 This is a pleasant 60-year-old gentleman patient of Dr. Ridge Christina. He doesn't see a physician often and does not note any medical diseases, except for obesity. He comes seen secondary to fever and chills, cough, starting December 06 first, along with muscle aches, lack of appetite and diarrhea. he was tested for call bid November 08, which required at week of reporting, subsequently was sent to emergency room secondary to worsening symptoms, including dyspnea on exertion, shortness of breath and worsening cough without hemoptysis. Fever, shortness of breath lingers, no treatment given to him prior to this admission. The is vaccinated, but the patient is not. He does not believe in vaccines at that time. He comes in the emergency room, with hypoxemia, with very minimal conversatio nal dyspnea, chest x-ray, shows pulmonary infiltrate consistent with Covid pneumonia, oxygen currently is at 6 L nasal cannula, d-dimer was 0.6, LFTs are minimally elevated, 64 AST, lactic acid 2.0 sodium 132, creatinine of 0.9, glucose of 122, LDH of 888, CRP of 5.7. Urine protein noted, without hematuria or proteinuria. Covid was again retested 11/14, PCR is positive. Consult to Dr. Eduardo and pulmonary,, 11/16: Patient is currently on oxygen at 6 L nasal cannula increased to 7 L with humidified oxygen. Patient seen and followed by pulmonary medicine and has been started on Bariticinib, Decadron 6 mg daily, and prophylactic dose of Lovenox. He is reaching 1750 on incentive spirometry. Patient did have episode of diarrhea yesterday, none today and complains of decreased appetite. Patient complains of nasal congestion and Flonase added. 11/17: Patient had difficulty with oxygenation during the night and this morning transitioned to Airfo and partial nonrebreather. Pulse ox is currently running 90-92%, patient is prone. He has been afebrile, heart rate 88, blood pressure 104/63. Repeat d-dimer is elevated at 0.93. Blood sugar 167. C-reactive protein increased to 5.3. AST is 83 and ALT 51. Blood culture remains with no growth after 48 hours. Repeat chest x-ray reveals mild cardiomegaly with bilateral multifocal opacities consistent with Covid 19 infection. No sig nificant change from most recent x-ray. Albuterol inhaler and Symbicort inhaler added. 11/18: Patient is currently on AirVo and nonrebreather with pulse ox of 93%. He's been afebrile, heart rate 85, blood pressure 103/68. Blood culture no growth at 72 hours 2 specimens. Plan to continue proning. Repeat laboratory studies ordered for tomorrow including inflammatory markers. The patient is reis ving difficulty sleeping and melatonin added. Lovenox increased to twice daily dosing. 11/19: Patient remains in isolation. He is on AirVO plus nonrebreather with pulse ox of 93%. He has been afebrile, heart rate 85, blood pressure 122/69. Patient is found sitting in recliner and encouraged to prone when he is able to. Repeat blood work reveals WBC 12, hemoglobin 14.8, platelet count 282. D-dimer is 1.38. Other blood work is pending. Patient is continued on Decadron, vitamin supplements, Lovenox. He is on day #07/20 of Baricitinib. 11/20: Patient has been afebrile, heart rate 71, blood pressure 107/71, pulse ox 88-93% on AirVo plus nonrebreather. Patient seems to be depressed and fr ustrated with coarse. Noted that he started on Xanax yesterday by pulmonary. We will add and Remeron 7.5 mg at bedtime. Hemoglobin A1c came back at 6.4. Patient is encouraged to use incentive spirometry, increase activity, prone. Discussed CODE STATUS with patient and he wishes to be a full code. 11/21: Patient will pulse ox of 83% as he was on Airvo only and once nonrebreather was placed she went up to 89%. Patient is not eating much. He has been encouraged to take protein supplement, increase activity and prone but patient does not seem motivated. He was started on Remeron last night which will hopefully help with his mood and appetite. He has continued on Lovenox, dexamethasone, Baricitinib #09/19 repeat blood work reveals WBC 14.3. D-dimer increasing to 3.2. Electrolytes normal, creatinine 0.76. LDH is high at 1476, C-reactive protein stable 6.6. 11/22: Patient continues to be on airflow and nonrebreather and with minimal movement, pulse ox drops down to 82%, otherwise patient is maintaining 92-94%. One dose of IV Lasix ordered for today. Temperature max yesterday afternoon was 101.2. Heart rate in the 70s and 80s. Blood pressure 110/59. Urinalysis was negative for infection. Repeat blood work will be ordered for tomorrow. 11/23: Patient Was moved into ICU overnight. He has been on BiPAP through the night and pulse oxing 95% recently on his side, currently sitting on the edge of the bed pulse oxing 90%, with talking he drops to 83%. He is scheduled for PICC line insertion and plan to start TPN today. Patient has been afebrile, heart rate in the 60s, respiratory rate 28. WBC 12.0, hemoglobin 15, platelet count 351. Lymphocytes 11.1. D-dimer 2.46. Sodium 136, otherwise electrolytes are normal. BUN 30 creatinine 0.7. Blood sugar 128. Magnesium 2.5. Phosphorus 5.5. LDH 1691. C-reactive protein 13.4. Total protein 5.6. Blood cultures remain with no growth. Repeat chest x-ray this morning reveals stable diffuse bilateral infiltrates. Patient is on Baricitinib 10/20. Pulmonary has increased frequency of dexamethasone to twice daily and changed to IV6 mg IV twice daily. 11/24: Patient remain in the ICU, still on BiPAP with pulse ox is improving at this point. Continue dexamethasone and Baricitinib 11/20, patient had full meal this morning his TPN will be suspended after today. Patient will remain in the ICU at least for the next 48 hours. 11/25: Remain in the ICU still on BiPAP but his pulse ox is slightly bit better he still on dexamethasone and Baricitinib 12/20 seems to do slightly but better was agreed by intensive care studies TPN, patient oral intake is slightly but better and had slight improvement compared to yesterday. Surprisingly his marker went up slightly bit specially his LDH up to 2086 with C-reactive protein 3.6 kidney function remained good white blood cell climb up to 15.1 specially been on steroid. Chest x-ray still shows diffuse bilateral interstitial infiltrate and patchy opacification persistent but there is a slight improvement in the variation in the left lower lobe compared to few days earlier. 11/26: Patient remain on BiPAP with 100% oxygen to keep his pulse ox around 92 percentile, his d-dimer continue to be quite bit elevated today is having Doppler of the lower extremity but notes CT at this point. Remain on Symbicort, and albuterol HFA, his white blood cell is down 17,000, blood sugars better control. Chest x-ray still showed patchy infiltrate throughout both lung felix persistent didn't change. Patient had mild anxiety with no pain currently. 11/27: Patient remains in the intensive care unit. He is placed on airflow for eating and pulse ox drops to the 7083 percent range. Pulse ox 90-93% on100% BiPAP. He is afebrile, heart rate in the 70s, respiratory rate 27 and 32, blood pressure 102/71. WBC 21.5, lymphocytes 0.6. D-dimer 7.29. Blood sugars running between 111 and 171. Ferritin level [id number]. ALT 54, alkaline phosphatase 152. CK 27, C-reactive protein 2.9. Repeat chest x-ray reveals borderline cardiomegaly with prominent pulmonary vascular markings. Diffuse increased lung markings are present. Correlate for heart failure. Atypical pneumonia should be considered. Lower extremity ultrasound negative for DVT bilaterally. 11/28: Patient remains in the intensive care unit and found sitting in a chair at the bedside. He is continued on BiPAP and switched over to Arava and nonrebreather for meals. Repeat chest x-ray essentially unchanged. Repeat blood work reveals WBC 20.4, hemoglobin 14.8, platelet count 130. Sodium 134, potassium 4.8, creatinine 0.62. LDH 2934. C-reactive protein 3.3, d-dimer 10.2. CT angiogram of the chest has been ordered by pulmonary medicine which revealed slightly suboptimal study without evidence of acute pulmonary embolism. Mild cardiomegaly with bilateral cities and multifocal organizing consolida tions consistent with Covid19 infection. Lovenox has been changed to 40 mg daily and dexamethasone changed to Solu-Medrol 60 mg every 6 hours. Patient has completed course of Baricitinib. 11/29: Patient remains in the intensive care unit, patient is utilizing BiPAP and also Airvo with nonrebreather mask added at times as he tolerates. His oxygenation seems to be improving at 89-93%. Respiratory rate 24, heart rate 88, blood pressure 107/58. Patient does verbalize that he is feeling somewhat better today. WBC 16.4, hemoglobin 15.1, platelet count 120. D-dimer 13.49, C- reactive protein 2, LDH 2086, CK 47. Repeat chest x-ray reveals correlate for pneumonia, edema or pulmonary hemorrhage, there is cardiomegaly. Patient is currently continued on Lovenox, Solu-Medrol, bronchodilators and vitamin supplements. 11/30: Patient remains in intensive care unit, he sitting in a chair at the bedside. He is feeling a little bit better and breath sounds are sounding a little better from yesterday. He is currently on AirVO. Pulse ox is running 84-87%, he has been afebrile, heart rate in the 80s and 90s, respiratory rate in the 20s, blood pressure 110/67. Repeat blood work reveals WBC 19.4, platelet count 126. D-dimer 10.2, LDH 2157, CK 78, C-reactive protein 1.5. Sodium 135, BUN 44 creatinine 0.73. Patient is continued on Lovenox, IV Solu-Medrol, bronchodilators and supplements. 12/01: Patient remains in ICU, he is currently sitting in chair at the bedside. Patient continues to state that he feels a bit better breath sounds are sounding better compared to yesterday. He is currently on airflow. His pulse ox is running 87-89%, he is still short of breath with conversation. Patient has been afebrile, heart rate 72, respirations 28, blood pressure 109/61. Rosana BC 16.0 , hemoglobin 15.1, platelets 112, potassium 4.6, BUN 39, creatinine 0.84. Patient is continued on Lovenox, IV Solu-Medrol, bronchodilators and supplements. REVIEW OF SYSTEMS Constitutional: No fever, no chills, no night sweats. No weight change. Reports weakness, reports fatigue no lethargy. Reports daytime sleepiness. EENT: No headache. No blurred vision or double vision, no loss of vision. No dizziness. No nasal drainage or congestion. No epistaxis. No sore throat. Lungs Reported shortness of breath, reported cough, no sputum production. No wheezing. Dyspnea with minimal exertion. dyspnea at rest. Cardiovascular: No chest pain, no lower extremity edema. No palpitations. No paroxysmal nocturnal dyspnea. No orthopnea. No lightheadedness or dizziness. No syncopal episodes. Abdominal: No abdominal pain. No nausea, vomiting. Reports diarrhea. No constipation. No bloody or tarry stools. Reports loss of appetite. Genitourinary: No dysuria, no increased frequency, no urgency. No urinary retention. Musculoskeletal: No myalgias. Generalized muscle weakness, no gait dysfunction, no frequent falls. No back pain. No neck pain. Integumentary: No wounds, no lesions. No rash or pruritus. No unusual bruising. Neurologic: No aphasia. No facial droop. No change in mentation. No head injury. No headache. No paresthesia. Psychiatric: No depression. No anxiety. No mood swings. Insomnia. Reports difficulty sleeping. Endocrine: Noted abnormal blood sugars. PHYSICAL EXAMINATION Gen: This is a 60-year-old obese male sitting in a chair in the ICU room. He is resting in recliner with Airvo in place and appears to be fairly comfortable. HEENT: Head is atraumatic, normocephalic. Pupils equal, round. Sclerae is anicteric. NECK: Supple. No JVD. No lymphadenopathy. No thyromegaly. LUNGS: Diminished breath sounds. No wheezes or rhonchi. Mild accessory muscle usage. HEART: Regular rate and rhythm. No murmur. ABDOMEN: obese. Soft. Bowel sounds are present. No masses. No tenderness. EXTREMITIES: No pedal edema. No calf tenderness. NEUROLOGICAL: Patient is awake, alert and oriented x3. Cranial nerves 2 through 12 are grossly intact. ASSESSMENT AND PLAN 1. Acute respiratory failure: Secondary to COVID-19, consult with pulmonary medicine appreciated, continue oxygen therapy including BiPAP, Solu-Medrol, Lovenox, bronchodilators and vitamin supplements. Flutter valve every hour while awake. 2. Sepsis (POA) secondary to COVID-19 pneumonia, with acute hypoxemic respiratory failure, diagnosis was of 11/08/2020, symptoms started December 06 first. Patient is not vaccinated, and since being seen in consultation by pulmonary, he is on dexamethasone transitioned to Solu-Medrol IV 60 mg every 6 hours, Lovenox 40 mg daily, completed course of Baricitinib, continue albuterol inhaler, Symbicort inhaler, prone positioning. Continue O2 via BiPAP or AirVO. 3. Moderate protein calorie malnutrition secondary to poor oral intake. Patient is off TPN, continue regular diet with ensure protein supplements. 4. DVT prophylaxis Lovenox Increased frequency to twice daily. Doppler of lower extremity negative for DVT bilaterally. 5. GI prophylaxis Pepcid no abdominal pain. 6. BPH without LUTs no sign of urinary retention. 7. Proteinuria, unknown cause, 8. Dymetabolic syndrome, monitor for hyperglycemia, A1c 6.4. NovoLog scale before meals and at bedtime. CODE Status: Full code Prognosis: Still guarded. Impression and plan of care have been directed as dictated by the signing physician. Vandana Stoddard nurse practitioner acting as scribe for signing physician. Objective Objective - Vital Signs Vital signs: Vital Signs Temp 97.6 F 12/01/20 04:00 Pulse 72 12/01/20 07:00 Resp 28 H 12/01/20 07:00 BP 109/61 12/01/20 07:00 Pulse Ox 87 L 12/01/20 07:00 Intake & Output 11/30/20 12/01/20 12/01/20 18:59 06:59 18:59 Intake Total 1200 480 20 Output Total 550 675 Balance 650 -195 20 Intake: IV 200 20 Sodium Chloride 0.9% 1, 200 20 000 ml @ 20 mls/hr IV . Q24H HIRAM Rx#:[id number] Intake, IV Titration 240 40 Amount Sodium Chloride 0.9% 1, 240 40 000 ml @ 20 mls/hr IV . Q24H HIRAM Rx#:[id number] Oral 960 240 Output: Urine 550 675 Other: Voiding Method Urinal # Voids 1 0 0 # Bowel Movements 1 - Labs CBC & Chem 7: 12/01/20 05:35 12/01/20 05:35 Labs: Abnormal Lab Results - Last 24 Hours (Table) 11/30/20 11/30/20 11/30/20 Range/Units 05:40 12:44 16:28 WBC (3.8-10.6) k/uL Plt Count (150-450) k/uL Neutrophils # (1.3-7.7) k/uL Lymphocytes # (1.0-4.8) k/uL Sodium (137-145) mmol/L BUN (9-20) mg/dL Glucose (74-99) mg/dL POC Glucose (mg/dL) 145 H 169 H (75-99) mg/dL Ferritin 1783.1 H (22.0-322.0) ng/mL 11/30/20 12/01/20 12/01/20 Range/Units 21:36 05:34 05:35 WBC 16.0 H (3.8-10.6) k/uL Plt Count 112 L (150-450) k/uL Neutrophils # 15.1 H (1.3-7.7) k/uL Lymphocytes # 0.4 L (1.0-4.8) k/uL Sodium (137-145) mmol/L BUN (9-20) mg/dL Glucose (74-99) mg/dL POC Glucose (mg/dL) 148 H 193 H (75-99) mg/dL Ferritin (22.0-322.0) ng/mL 12/01/20 Range/Units 05:35 WBC (3.8-10.6) k/uL Plt Count (150-450) k/uL Neutrophils # (1.3-7.7) k/uL Lymphocytes # (1.0-4.8) k/uL Sodium 135 L (137-145) mmol/L BUN 39 H (9-20) mg/dL Glucose 204 H (74-99) mg/dL POC Glucose (mg/dL) (75-99) mg/dL Ferritin (22.0-322.0) ng/mL
[2020-12-01 11:30] LABS: Glucose,Whole Blood 146 mg/dL (75-99)
[2020-12-01] MEDS: SODIUM CHLORIDE 0.9% 1,000 ML IV SCH (12:24)
--- NOTE | 2020-12-01 12:56 | P.PN ---
Subjective Progress Note Date: 12/01/20 Principal diagnosis: COVID-19 pneumonia On today's evaluation on the 11/15/2020 patient seen in follow-up on medical surgical floor. His O2 saturations are marginal, on 6 L his pulse ox is 90%. Does not seem to be in any acute distress, no increased work of breathing. Occasional cough, nonproductive, patient was outside the window for Remdesivir. He is not vaccinated, S x-ray on admission showed significant patchy infiltrates compatible with his history of COVID-19 infection. Blood pressure has been stable, afebrile. His labs have been reviewed, d-dimer is 0.52, which is 888, CRP is 5.7. Patient is currently on Decadron 6 mg, he is on prophylactic dose Lovenox. Today's evaluation on 11/16/2020 patient seen in follow-up on medical surgical floor, his oxygen demand has increased in the last 24 hours, and his FiO2 was titrated to 10 L, his pulse ox is 91-92%, does not appear to be in any acute respiratory distress, he sitting up in the chair, is awake and alert, oriented 3, his been afebrile overnight, blood pressure is been stable, today's chest x- ray shows patchy perihilar and left lower lobe infiltrate persistence. The patient was started on on Bariticinib, Decadron 6 mg daily, and prophylactic dose of Lovenox. His appetite is poor per nursing staff, he seems to be depressed. Labs have been reviewed, his d-dimer is low at 0.50, his LDH from yesterday was 888, and CRP was 5.7. On 11/17/2020 patient seen in follow-up on the surgical floor. He is currently on Airvo 60 L and FiO2 of 94% in addition to partial nonrebreather mask and his pulse ox is around 90-92%. Patient easily desaturates with any activity. He is currently on his abdomen, he is self proning, and his oxygen does improve when he does that with a pulse ox of 95-96%, he tolerates proning fairly well. Patient is on day 3 of Bariticinib, he is also on Decadron 6 g daily, and prophylactic dose of Lovenox. His chest x-ray today shows mild cardiomegaly with bilateral multifocal opacities with no significant change from most recent chest x-ray. Today's labs have been reviewed, with blood cell count is 10, hemoglobin is 14.9, lymphocyte count is 0.7, d-dimer is 0.93, electrolytes are within normal limits, BUN is 25 creatinine 0.82. Reevaluated today on 11/18/2020, patient remains on airvo , and on nonrebreather mask, his FiO2 is at 90%, and flow is 60 L/m via airvo. Saturation is marginal, however the patient seems to be rather comfortable. His O2 saturation is in the low 90s, desaturates easily with activity. He is doing self groaning, and he does improve with self groaning hence I'm recommending titrating his FiO2 down as his oxygenation improved. BC today is relatively normal d-dimer is up a bit at 0.93. Electrolytes are normal renal profile is normal. Last chest x-ray from 11/17 continues to show bilateral multifocal opacities consistent with COVID-19 infection, not much improvement noted based on the chest x-ray. Patient was reevaluated today on 11/19/2020, remains on the regular medical floor, remains on Airvo plus nonrebreather mask, and his O2 saturation is in the range of 93-96%. Patient is surprisingly comfortable, sitting in a recliner, not in any distress. WBC count is 12 hemoglobin 14.8 electrolytes are normal renal profile is normal, LDH is 566 and his C-reactive protein is 8.1. Slightly bit more elevated compared to yesterday. Patient remains on the COVID- 19 cocktail, remains on Lovenox at 40 mg subcu twice a day, and he is on Decadron, as well as baricitinib Reevaluated today on 11/20/2020, patient is basically about the same, not much different today from yesterday. O2 saturation remains marginal in the low 90s, patient remains on airvo at 90%, and 60 L flow. He also has a nonrebreather mask, and O2 saturation remains marginal at best. Clinically however the patient is about the same, has been adjusting his sleep positions and sometimes he notices significant improvement when he lays on the left side of the right side. Unable to go into a prone position. CBC is relatively normal his d-dimer is a bit up 1.38 his electrolytes are normal renal profile is normal, LDH is 566 C-reactive protein is a bit higher today 8.1. Pro-calcitonin is 0.11 Patient was reevaluated today on 11/21/2020, remains on airvo at maximal flow and FiO2, patient remains on nonrebreather mask, O2 saturation is in the high 80s and low 90s. Patient feels better in the right lateral decubitus position, he is basically overall about the same. He is not demonstrating any significant improvement or any worsening. Remains on all the COVID-19 cocktail, not much changed. D-dimer 3.2 today. Patient was reevaluated today on 11/23/2020, I saw him yesterday and I recommended transfer to the ICU. Remains in the ICU, patient is on BiPAP, IPAP 12 EPAP of 6 and FiO2 is 100%. His O2 saturation is marginal in the low 90s, improves when the patient goes in the left lateral decubitus position. Hence I advised him to stay as often as he can in the left lateral decubitus position. Patient is scheduled to have a PICC line placed for TPN. Has not been eating much, and his interstitial status is poor. Patient remains on baricitinib, and he is on the rest of the COVID-19 cocktail. Today's d-dimer is 2.46. Clinicall y however and surprisingly the patient is feeling comfortable, does not seem to be in distress. WBC count is 12 hemoglobin is 15 electrolytes are normal renal profile is normal, inflammatory markers are high LDH of 1691 and C-reactive protein is 13.4. Pro-calcitonin remains low at 0.09. Reevaluated today on 11/24/2020, patient remains in the ICU, transitioned yesterday from BiPAP to airvo at 60 L flow, and 90% FiO2. His O2 saturation is marginal, patient did use BiPAP last night. He went off BiPAP at 5 AM this morning. Remains on IV fluid at 75 mL/h, he is also on TPN via PICC line. Over all the patient is holding nicely, remains on Decadron twice a day, is also on baricitinib seems to be tolerating both well. Patient is considered marginal at best, I'm not seeing significant improvement and I'm not seeing worsening at this point. WBC count today is noted to be high at 16.7. Electrolytes are normal renal profile is normal, his last pro-calcitonin 2 days ago was 0.09, relatively unremarkable. Reevaluated today on 11/25/2020, patient remains in the ICU, alternating between airvo and BiPAP, nonetheless he remains on relatively high FiO2 and high flow if clinically the patient is about the same, his O2 saturation remains marginal in the high 80s and low 90s. Patient remains on TPN which I plan to discontinue since the patient is eating better today, he feels a bit better today, chest x- ray is basically about the same. Patient remains on the COVID-19 cocktail, on multiple drugs as listed below. Respiratory BC count is 15.1 hemoglobin 14.3 d- dimer is 5.48, patient remains on Lovenox at 40 mg subcu twice a day. His renal profile is normal his electrolytes are normal, LDH is 2086 and C-reactive protein is 3.6. His LDH is higher than yesterday, his C-reactive protein is lower, and his d-dimer is higher. On 11/26/2020 patient seen in follow-up in intensive care unit. He is awake and alert, oriented 3, he is currently off BiPAP, and she is on Airvo at 60 L and FiO2 of 90%, and his pulse ox is around 84-85%. She does wear BiPAP support with pressure of 12 and 6 and FiO2 of 100%, and usually his O2 saturations are better on BiPAP support and run at 90-92%. he does come off the BiPAP to eat meals. Seems fairly comfortable, despite low O2 saturations. Afebrile, hemodynamically has been stable. He is on IV 0.9 normal saline at a rate of 75 ML per hour, no other drips, he continues on Baricitinib 4 mg daily, since 11/15/2020. He remains on Decadron 6 mg twice daily, and Lovenox 40 mg twice daily. Today's chest x-ray has been reviewed showing patchy infiltrates throughout both lung felix, without significant change since yesterday. Today's labs have been reviewed, his d-dimer is at 6.6, slightly increased from yesterday from 5.48. His electrolytes are unremarkable, B1 is 25 creatinine 0.67, LDH has increased to 2423, and CRP actually came down and is down to 3, pro-calcitonin level was repeated and came back negative at 0.09. White blood cell count is 17.4 on today's labs, lymphocyte count is 0.7. Blood cultures have shown no growth. The patient is seen today 11/27/2020 in follow-up in the intensive care unit. He is currently sitting up in bed. Awake and alert in mild respiratory distress. He is currently on theAirVo high flow oxygen device for meals at 60 L/m and 90% FiO2. He's been mainly BiPAP dependent 12/6 at 100% FiO2 to maintain O2 saturations 88-92%. He has 0.9 normal saline at 75 ML's per hour. He is eating well still. Chest x-ray is reviewed and continues to show diffuse increased lung markings. Prominent pulmonary vascular congestion. Blood cultures revealed no growth. White count 21.5. Hemoglobin 14.3. Lymphocytes 0.6. D-dimer 7.29. Sodium 135. Potassium 4.7. Creatinine 0.74. AST 48, ALT 54. C-reactive protein 2.9. Pro-calcitonin 0.09. He remains on Baricitinib, Decadron, Lovenox, vitamin supplements. Dopplers of the lower extremities were negative for DVT bilaterally. The patient is seen today 11/28/2020 in follow-up in the intensive care unit. He is currently sitting up in a chair at the bedside. Awake and alert. Still requiring BiPAP 12/6 and 100% FiO2 to maintain O2 saturations in the high 80s low 90s. He is alternating with the AirVo at 60 L/m and 90% FiO2 for meals. Chest x-ray continues to revealed diffuse interstitial and patchy bilateral infiltrates. Some slight improvement in the left base but otherwise unchanged. White count 20.4. Hemoglobin 14.8. Platelets 130. Sodium 134. Potassium 4.8. Creatinine 0.62. AST 55. ALT 55. LDH 2934. C-reactive protein 3.3. D- dimer 10.2. CT angiogram of the chest is pending. He remains on Baricitinib, Decadron, Lovenox, vitamin supplements. The patient is seen today 11/29/2020 in follow-up in the intensive care unit. He is currently resting fairly comfortably in bed. Remains awake, alert. He did utilize BiPAP all night at 12/600% FiO2. He'll be switched over to care of O high flow oxygen at 60 L and 94% for breakfast. CT angiogram ruled out pulmonary embolism. Continues with diffuse bilateral infiltrates. White count 16.4. Hemoglobin 15.1 platelet count 120. D-dimer 13.5. Sodium 136. Potassium 4.6. Creatinine 0.76. Glucose 145. LDH 2086. C-reactive protein 2.0. He has completed his course of Baricitinib. He is continued on IV Solu- Medrol, Lovenox, vitamin supplement, Symbicort and albuterol. The patient is seen today November 30 2020 in follow-up in the intensive care unit. He is currently resting in bed. Awake and alert in no acute distress. He remains on Arava at 60 L/m and 94% FiO2. He's been off the BiPAP. Chest x- ray continues to show coarse infiltrates bilaterally without much improvement. White count 19.4. Hemoglobin 15.0. Platelets 126. Sodium 135. Potassium 4.5. Creatinine 0.73. LDH 2157. C-reactive protein 1.5. D-dimer 10.2. He remains on Symbicort and albuterol along with Lovenox, IV Solu-Medrol, Lovenox, vitamin supplements. He has completed his course of Baricitinib. The patient is seen today 12/01/2020 and follow-up in the intensive care unit. He is currently sitting up in a chair at the bedside. He remains awake and alert. Mild respiratory distress. He's been off the BiPAP. He is currently on Arava O high flow oxygen at 60 L/m and 90% FiO2 occasionally adding the nonrebreather mask when needed. 0.9 normal saline at 20 ML's per hour. White count 16.0. Hemoglobin 15.1. Platelet count 112,000. Sodium 135. Potassium 4.6. Creatinine 0.84. He remains on IV Solu-Medrol, Lovenox, vitamin supplements. Continued on Symbicort and albuterol. Objective - Vital Signs Vital signs: Vital Signs Temp 98 F 12/01/20 12:00 Pulse 77 12/01/20 12:00 Resp 24 12/01/20 12:00 BP 127/71 12/01/20 12:00 Pulse Ox 89 L 12/01/20 12:00 Intake & Output 11/30/20 12/01/20 12/01/20 18:59 06:59 18:59 Intake Total 1200 480 480 Output Total 550 675 350 Balance 650 -195 130 Intake: IV 200 120 Sodium Chloride 0.9% 1, 200 120 000 ml @ 20 mls/hr IV . Q24H [facility] Rx#:[id number] Intake, IV Titration 240 40 Amount Sodium Chloride 0.9% 1, 240 40 000 ml @ 20 mls/hr IV . Q24H [facility] Rx#:[id number] Oral 960 240 360 Output: Urine 550 675 350 Other: Voiding Method Urinal Urinal # Voids 1 0 0 # Bowel Movements 1 - Exam GENERAL EXAM: Alert, very pleasant, 60-year-old male patient, on AirVo at 60 L and FiO2 of 90%, he has been remaining off BiPAP HEAD: Normocephalic/atraumatic. EYES: Normal reaction of pupils, equal size. Conjunctiva pink, sclera white. NOSE: Clear with pink turbinates. THROAT: No erythema or exudates. NECK: No masses, no JVD, no thyroid enlargement, no adenopathy. CHEST: No chest wall deformity. Symmetrical expansion. LUNGS: Equal air entry with crackles in the bilateral posterior bases CVS: Regular rate and rhythm, normal S1 and S2, no gallops, no murmurs, no rubs ABDOMEN: Soft, nontender. No hepatosplenomegaly, normal bowel sounds, no guarding or rigidity. EXTREMITIES: No clubbing, no edema, no cyanosis, 2+ pulses and upper and lower extremities. MUSCULOSKELETAL: Muscle strength and tone normal. SPINE: No scoliosis or deformity SKIN: No rashes CENTRAL NERVOUS SYSTEM: No focal deficits, tone is normal in all 4 extremities. PSYCHIATRIC: Alert and oriented -3. Appropriate affect. Intact judgment and insight. - Labs CBC & Chem 7: 12/01/20 05:35 12/01/20 05:35 Labs: Abnormal Lab Results - Last 24 Hours (Table) 11/30/20 11/30/20 11/30/20 Range/Units 05:40 16:28 21:36 WBC (3.8-10.6) k/uL Plt Count (150-450) k/uL Neutrophils # (1.3-7.7) k/uL Lymphocytes # (1.0-4.8) k/uL Sodium (137-145) mmol/L BUN (9-20) mg/dL Glucose (74-99) mg/dL POC Glucose (mg/dL) 169 H 148 H (75-99) mg/dL Ferritin 1783.1 H (22.0-322.0) ng/mL 12/01/20 12/01/20 12/01/20 Range/Units 05:34 05:35 05:35 WBC 16.0 H (3.8-10.6) k/uL Plt Count 112 L (150-450) k/uL Neutrophils # 15.1 H (1.3-7.7) k/uL Lymphocytes # 0.4 L (1.0-4.8) k/uL Sodium 135 L (137-145) mmol/L BUN 39 H (9-20) mg/dL Glucose 204 H (74-99) mg/dL POC Glucose (mg/dL) 193 H (75-99) mg/dL Ferritin (22.0-322.0) ng/mL 12/01/20 Range/Units 11:29 WBC (3.8-10.6) k/uL Plt Count (150-450) k/uL Neutrophils # (1.3-7.7) k/uL Lymphocytes # (1.0-4.8) k/uL Sodium (137-145) mmol/L BUN (9-20) mg/dL Glucose (74-99) mg/dL POC Glucose (mg/dL) 146 H (75-99) mg/dL Ferritin (22.0-322.0) ng/mL Assessment and Plan Assessment: 1 Acute Covid 19 related pneumonia. The patient became symptomatic approximately 8 days prior to arrival. Presented with worsening shortness of breath and bilateral pneumonia. Patient is not vaccinated. The patient had not received any outpatient treatments for Covid 19 infection. Diagnosis established during this current admission. Started on Bariticinib on 11/15/2020 in view of worsening hypoxic respiratory failure. Patient was outside the window for Remdesivir 2 Acute hypoxic respiratory failure which has significantly progressed since admission, and patient is currently on Airvo at 60 L and FiO2 of 90%. He was transferred to the intensive care unit on 11/22/2020 3 Obesity with a BMI of 37. 4 Increased inflammatory markers related to acute COVID-19 pneumonia 5 Increased d-dimer, related to viral pneumonia, currently on Lovenox 40 mg daily, Dopplers of the lower extremity negative, CT angiogram pending today Plan: The patient was seen and evaluated by Dr. Cochran Currently stable and remains on AirVo Completed Baricitinib Continue Lovenox, Solu-Medrol, bronchodilators, vitamin supplements Titrate the FiO2 as tolerated We will continue to follow Critical care time 35 minutes I, the cosigning physician, performed a history & physical examination of the patient. Lungs sounds with crackles in the bilateral posterior bases. Maintaining good O2 saturations in the 90s on AirVo high flow oxygen at 60 L/m at 90% FiO2, I discussed the assessment and plan of care with my nurse practitioner, Roseanne Carey. I attest to the above note as dictated by her.
[2020-12-01 16:29] LABS: Glucose,Whole Blood 184 mg/dL (75-99)
[2020-12-01 19:55] LABS: Glucose,Whole Blood 132 mg/dL (75-99)
[2020-12-01] MEDS: MIRTAZAPINE 15 MG TAB PO SCH (20:48)
[2020-12-01] MEDS: ACETAMINOPHEN TAB 325 MG TAB PO PRN (20:52)
[2020-12-01] MEDS: MELATONIN 3 MG TABLET PO SCH (20:54)
[2020-12-01 21:01] LABS: Glucose,Whole Blood 125 mg/dL (75-99)
[2020-12-02] MEDS: methylPREDNISolone SOD SUCCI 125 MG/2 ML VIAL IV SCH ×4 (05:33→23:58)
[2020-12-02 05:42] LABS: Basophils % (A) 0 %; Eosinophils % (A) 0 %; HCT 44.3 % (39.0-53.0); HGB 14.5 gm/dL (13.0-17.5); Lymphocytes # (A) 0.3 k/uL (1.0-4.8); Lymphocytes % (A) 2 %; MCH 28.9 pg (25.0-35.0); MCHC 32.7 g/dL (31.0-37.0); MCV 88.5 fL (80.0-100.0); Mean Platelet Volume 8.7; Monocytes # (A) 0.5 k/uL (0-1.0); Monocytes % (A) 3 %; Neutrophils # (A) 15.1 k/uL (1.3-7.7); Neutrophils % (A) 94 %; RDW 13.5 % (11.5-15.5)
[2020-12-02 05:50] LABS: African American GFR (CKD) >90 (>60 ml/min/1.73 sqM); Anion Gap 3 mmol/L; Blood Urea Nitrogen 37 mg/dL (9-20); C Reactive Protein 0.6 mg/dL (<1.0); Calcium 8.9 mg/dL (8.4-10.2); Carbon Dioxide 31 mmol/L (22-30); Chloride 100 mmol/L (98-107); Glucose 174 mg/dL (74-99); LDH 1663 U/L (313-618); Non-African American GFR(CKD) >90 (>60 ml/min/1.73 sqM); Potassium 4.7 mmol/L (3.5-5.1); Sodium 134 mmol/L (137-145)
[2020-12-02 06:24] LABS: Platelet Count 95 k/uL (150-450)
[2020-12-02 06:40] LABS: Glucose,Whole Blood 145 mg/dL (75-99)
[2020-12-02] MEDS: INSULIN ASPART (NovoLOG) 100 UNIT/ML VIAL SQ SCH ×4 (06:43→21:28)
--- NOTE | 2020-12-02 06:45 | XR ---
EXAMINATION TYPE: XR chest 1V portable DATE OF EXAM: 12/02/2020 COMPARISON: 11/30/2020 HISTORY: Covid pneumonia TECHNIQUE: Single frontal view of the chest is obtained. FINDINGS: There is diffuse airspace or alveolar opacity throughout both lungs which is essentially u nchanged. There is no definite pleural effusion and no pneumothorax. There is a PICC line entering th e left upper extremity and terminating in the SVC/R junction. The heart size is normal. The osseous structures are intact IMPRESSION: Diffuse lung opacity unchanged since the prior study. The chest is stable and consistent with acute cardiopulmonary disease.
[2020-12-02] MEDS: ALBUTEROL HFA INHALER INHALATION SCH ×3 (07:45→19:16)
[2020-12-02] MEDS: SYMBICORT 160-4.5 MCG INHALER INHALATION SCH ×2 (07:45→19:16)
--- NOTE | 2020-12-02 08:11 | P.PN ---
Subjective Progress Note Date: 12/02/20 This is a pleasant 60-year-old gentleman patient of Dr. Ridge Christina. He doesn't see a physician often and does not note any medical diseases, except for obesity. He comes seen secondary to fever and chills, cough, starting December 06 first, along with muscle aches, lack of appetite and diarrhea. he was tested for call bid November 08, which required at week of reporting, subsequently was sent to emergency room secondary to worsening symptoms, including dyspnea on exertion, shortness of breath and worsening cough without hemoptysis. Fever, shortness of breath lingers, no treatment given to him prior to this admission. The is vaccinated, but the patient is not. He does not believe in vaccines at that time. He comes in the emergency room, with hypoxemia, with very minimal conversatio nal dyspnea, chest x-ray, shows pulmonary infiltrate consistent with Covid pneumonia, oxygen currently is at 6 L nasal cannula, d-dimer was 0.6, LFTs are minimally elevated, 64 AST, lactic acid 2.0 sodium 132, creatinine of 0.9, glucose of 122, LDH of 888, CRP of 5.7. Urine protein noted, without hematuria or proteinuria. Covid was again retested 11/14, PCR is positive. Consult to Dr. Eduardo and pulmonary,, 11/16: Patient is currently on oxygen at 6 L nasal cannula increased to 7 L with humidified oxygen. Patient seen and followed by pulmonary medicine and has been started on Bariticinib, Decadron 6 mg daily, and prophylactic dose of Lovenox. He is reaching 1750 on incentive spirometry. Patient did have episode of diarrhea yesterday, none today and complains of decreased appetite. Patient complains of nasal congestion and Flonase added. 11/17: Patient had difficulty with oxygenation during the night and this morning transitioned to Airfo and partial nonrebreather. Pulse ox is currently running 90-92%, patient is prone. He has been afebrile, heart rate 88, blood pressure 104/63. Repeat d-dimer is elevated at 0.93. Blood sugar 167. C-reactive protein increased to 5.3. AST is 83 and ALT 51. Blood culture remains with no growth after 48 hours. Repeat chest x-ray reveals mild cardiomegaly with bilateral multifocal opacities consistent with Covid 19 infection. No sig nificant change from most recent x-ray. Albuterol inhaler and Symbicort inhaler added. 11/18: Patient is currently on AirVo and nonrebreather with pulse ox of 93%. He's been afebrile, heart rate 85, blood pressure 103/68. Blood culture no growth at 72 hours 2 specimens. Plan to continue proning. Repeat laboratory studies ordered for tomorrow including inflammatory markers. The patient is reis ving difficulty sleeping and melatonin added. Lovenox increased to twice daily dosing. 11/19: Patient remains in isolation. He is on AirVO plus nonrebreather with pulse ox of 93%. He has been afebrile, heart rate 85, blood pressure 122/69. Patient is found sitting in recliner and encouraged to prone when he is able to. Repeat blood work reveals WBC 12, hemoglobin 14.8, platelet count 282. D-dimer is 1.38. Other blood work is pending. Patient is continued on Decadron, vitamin supplements, Lovenox. He is on day #07/20 of Baricitinib. 11/20: Patient has been afebrile, heart rate 71, blood pressure 107/71, pulse ox 88-93% on AirVo plus nonrebreather. Patient seems to be depressed and fr ustrated with coarse. Noted that he started on Xanax yesterday by pulmonary. We will add and Remeron 7.5 mg at bedtime. Hemoglobin A1c came back at 6.4. Patient is encouraged to use incentive spirometry, increase activity, prone. Discussed CODE STATUS with patient and he wishes to be a full code. 11/21: Patient will pulse ox of 83% as he was on Airvo only and once nonrebreather was placed she went up to 89%. Patient is not eating much. He has been encouraged to take protein supplement, increase activity and prone but patient does not seem motivated. He was started on Remeron last night which will hopefully help with his mood and appetite. He has continued on Lovenox, dexamethasone, Baricitinib #09/19 repeat blood work reveals WBC 14.3. D-dimer increasing to 3.2. Electrolytes normal, creatinine 0.76. LDH is high at 1476, C-reactive protein stable 6.6. 11/22: Patient continues to be on airflow and nonrebreather and with minimal movement, pulse ox drops down to 82%, otherwise patient is maintaining 92-94%. One dose of IV Lasix ordered for today. Temperature max yesterday afternoon was 101.2. Heart rate in the 70s and 80s. Blood pressure 110/59. Urinalysis was negative for infection. Repeat blood work will be ordered for tomorrow. 11/23: Patient Was moved into ICU overnight. He has been on BiPAP through the night and pulse oxing 95% recently on his side, currently sitting on the edge of the bed pulse oxing 90%, with talking he drops to 83%. He is scheduled for PICC line insertion and plan to start TPN today. Patient has been afebrile, heart rate in the 60s, respiratory rate 28. WBC 12.0, hemoglobin 15, platelet count 351. Lymphocytes 11.1. D-dimer 2.46. Sodium 136, otherwise electrolytes are normal. BUN 30 creatinine 0.7. Blood sugar 128. Magnesium 2.5. Phosphorus 5.5. LDH 1691. C-reactive protein 13.4. Total protein 5.6. Blood cultures remain with no growth. Repeat chest x-ray this morning reveals stable diffuse bilateral infiltrates. Patient is on Baricitinib 10/20. Pulmonary has increased frequency of dexamethasone to twice daily and changed to IV6 mg IV twice daily. 11/24: Patient remain in the ICU, still on BiPAP with pulse ox is improving at this point. Continue dexamethasone and Baricitinib 11/20, patient had full meal this morning his TPN will be suspended after today. Patient will remain in the ICU at least for the next 48 hours. 11/25: Remain in the ICU still on BiPAP but his pulse ox is slightly bit better he still on dexamethasone and Baricitinib 12/20 seems to do slightly but better was agreed by intensive care studies TPN, patient oral intake is slightly but better and had slight improvement compared to yesterday. Surprisingly his marker went up slightly bit specially his LDH up to 2086 with C-reactive protein 3.6 kidney function remained good white blood cell climb up to 15.1 specially been on steroid. Chest x-ray still shows diffuse bilateral interstitial infiltrate and patchy opacification persistent but there is a slight improvement in the variation in the left lower lobe compared to few days earlier. 11/26: Patient remain on BiPAP with 100% oxygen to keep his pulse ox around 92 percentile, his d-dimer continue to be quite bit elevated today is having Doppler of the lower extremity but notes CT at this point. Remain on Symbicort, and albuterol HFA, his white blood cell is down 17,000, blood sugars better control. Chest x-ray still showed patchy infiltrate throughout both lung felix persistent didn't change. Patient had mild anxiety with no pain currently. 11/27: Patient remains in the intensive care unit. He is placed on airflow for eating and pulse ox drops to the 7083 percent range. Pulse ox 90-93% on100% BiPAP. He is afebrile, heart rate in the 70s, respiratory rate 27 and 32, blood pressure 102/71. WBC 21.5, lymphocytes 0.6. D-dimer 7.29. Blood sugars running between 111 and 171. Ferritin level [id number]. ALT 54, alkaline phosphatase 152. CK 27, C-reactive protein 2.9. Repeat chest x-ray reveals borderline cardiomegaly with prominent pulmonary vascular markings. Diffuse increased lung markings are present. Correlate for heart failure. Atypical pneumonia should be considered. Lower extremity ultrasound negative for DVT bilaterally. 11/28: Patient remains in the intensive care unit and found sitting in a chair at the bedside. He is continued on BiPAP and switched over to Arava and nonrebreather for meals. Repeat chest x-ray essentially unchanged. Repeat blood work reveals WBC 20.4, hemoglobin 14.8, platelet count 130. Sodium 134, potassium 4.8, creatinine 0.62. LDH 2934. C-reactive protein 3.3, d-dimer 10.2. CT angiogram of the chest has been ordered by pulmonary medicine which revealed slightly suboptimal study without evidence of acute pulmonary embolism. Mild cardiomegaly with bilateral cities and multifocal organizing consolida tions consistent with Covid19 infection. Lovenox has been changed to 40 mg daily and dexamethasone changed to Solu-Medrol 60 mg every 6 hours. Patient has completed course of Baricitinib. 11/29: Patient remains in the intensive care unit, patient is utilizing BiPAP and also Airvo with nonrebreather mask added at times as he tolerates. His oxygenation seems to be improving at 89-93%. Respiratory rate 24, heart rate 88, blood pressure 107/58. Patient does verbalize that he is feeling somewhat better today. WBC 16.4, hemoglobin 15.1, platelet count 120. D-dimer 13.49, C- reactive protein 2, LDH 2086, CK 47. Repeat chest x-ray reveals correlate for pneumonia, edema or pulmonary hemorrhage, there is cardiomegaly. Patient is currently continued on Lovenox, Solu-Medrol, bronchodilators and vitamin supplements. 11/30: Patient remains in intensive care unit, he sitting in a chair at the bedside. He is feeling a little bit better and breath sounds are sounding a little better from yesterday. He is currently on AirVO. Pulse ox is running 84-87%, he has been afebrile, heart rate in the 80s and 90s, respiratory rate in the 20s, blood pressure 110/67. Repeat blood work reveals WBC 19.4, platelet count 126. D-dimer 10.2, LDH 2157, CK 78, C-reactive protein 1.5. Sodium 135, BUN 44 creatinine 0.73. Patient is continued on Lovenox, IV Solu-Medrol, bronchodilators and supplements. 12/01: Patient remains in ICU, he is currently sitting in chair at the bedside. Patient continues to state that he feels a bit better breath sounds are sounding better compared to yesterday. He is currently on airflow. His pulse ox is running 87-89%, he is still short of breath with conversation. Patient has been afebrile, heart rate 72, respirations 28, blood pressure 109/61. WBC 16.0, hemog lobin 15.1, platelets 112, potassium 4.6, BUN 39, creatinine 0.84. Patient is continued on Lovenox, IV Solu-Medrol, bronchodilators and supplements. 12/02: Patient remains in ICU, he is currently sitting up in a chair at the bedside. Patient continues to have shortness of breath with activity and conversation. His chest x-ray unchanged to prior studies. D-dimer 5.96. Incentive spirometer is at the bedside however encouragement to utilize if needed. Patient has been afebrile, heart rate 85, respirations 28, blood pressure 138/86 pulse ox is 85-89% on Airvo. REVIEW OF SYSTEMS Constitutional: No fever, no chills, no night sweats. No weight change. Reports weakness, reports fatigue no lethargy. Reports daytime sleepiness. EENT: No headache. No blurred vision or double vision, no loss of vision. No dizziness. No nasal drainage or congestion. No epistaxis. No sore throat. Lungs Reported shortness of breath, reported cough, no sputum production. No wheezing. Dyspnea with minimal exertion. dyspnea at rest. Cardiovascular: No chest pain, no lower extremity edema. No palpitations. No paroxysmal nocturnal dyspnea. No orthopnea. No lightheadedness or dizziness. No syncopal episodes. Abdominal: No abdominal pain. No nausea, vomiting. Reports diarrhea. No constipation. No bloody or tarry stools. Reports loss of appetite. Genitourinary: No dysuria, no increased frequency, no urgency. No urinary retention. Musculoskeletal: No myalgias. Generalized muscle weakness, no gait dysfunction, no frequent falls. No back pain. No neck pain. Integumentary: No wounds, no lesions. No rash or pruritus. No unusual bruising. Neurologic: No aphasia. No facial droop. No change in mentation. No head injury. No headache. No paresthesia. Psychiatric: No depression. No anxiety. No mood swings. Insomnia. Reports difficulty sleeping. Endocrine: Noted abnormal blood sugars. PHYSICAL EXAMINATION Gen: This is a 60-year-old obese male sitting in a chair in the ICU room. He is resting in recliner with Airvo in place and appears to be fairly comfortable. HEENT: Head is atraumatic, normocephalic. Pupils equal, round. Sclerae is anicteric. NECK: Supple. No JVD. No lymphadenopathy. No thyromegaly. LUNGS: Diminished breath sounds. No wheezes or rhonchi. Mild accessory muscle usage. HEART: Regular rate and rhythm. No murmur. ABDOMEN: obese. Soft. Bowel sounds are present. No masses. No tenderness. EXTREMITIES: No pedal edema. No calf tenderness. NEUROLOGICAL: Patient is awake, alert and oriented x3. Cranial nerves 2 through 12 are grossly intact. ASSESSMENT AND PLAN 1. Acute respiratory failure: Secondary to COVID-19, consult with pulmonary medicine appreciated, continue oxygen therapy including BiPAP, Solu-Medrol, Lovenox, bronchodilators and vitamin supplements. Flutter valve every hour while awake. Encourage incentive spirometer usage 2. Sepsis (POA) secondary to COVID-19 pneumonia, with acute hypoxemic respiratory failure, diagnosis was of 11/08/2020, symptoms started December 06 first. Patient is not vaccinated, and since being seen in consultation by pulmonary, he is on dexamethasone transitioned to Solu-Medrol IV 60 mg every 6 hours, Lovenox 40 mg daily, completed course of Baricitinib, continue albuterol inhaler, Symbicort inhaler, prone positioning. Continue O2 via BiPAP or AirVO. 3. Moderate protein calorie malnutrition secondary to poor oral intake. Patient is off TPN, continue regular diet with ensure protein supplements. 4. DVT prophylaxis Lovenox Increased frequency to twice daily. Doppler of lower extremity negative for DVT bilaterally. 5. GI prophylaxis Pepcid no abdominal pain. 6. BPH without LUTs no sign of urinary retention. 7. Proteinuria, unknown cause, 8. Dymetabolic syndrome, monitor for hyperglycemia, A1c 6.4. NovoLog scale before meals and at bedtime. CODE Status: Full code Prognosis: Still guarded. Impression and plan of care have been directed as dictated by the signing physician. Vandana Stoddard nurse practitioner acting as scribe for signing physician. Objective - Vital Signs Vital signs: Vital Signs Temp 97.8 F 12/02/20 04:00 Pulse 75 12/02/20 07:00 Resp 23 12/02/20 07:00 BP 110/73 12/02/20 07:00 Pulse Ox 87 L 12/02/20 07:00 Intake & Output 12/01/20 12/02/20 12/02/20 18:59 06:59 18:59 Intake Total 960 260 Output Total 650 825 Balance 310 -565 Weight 106.1 kg Intake: IV 240 260 Sodium Chloride 0.9% 1, 240 260 000 ml @ 20 mls/hr IV . Q24H HIRAM Rx#:[id number] Oral 720 Output: Urine 650 825 Other: Voiding Method Urinal Urinal # Voids 0 0 # Bowel Movements 1 - Labs CBC & Chem 7: 12/02/20 05:00 12/02/20 05:10 Labs: Abnormal Lab Results - Last 24 Hours (Table) 12/01/20 12/01/20 12/01/20 Range/Units 11:29 16:28 19:54 WBC (3.8-10.6) k/uL Plt Count (150-450) k/uL Neutrophils # (1.3-7.7) k/uL Lymphocytes # (1.0-4.8) k/uL D-Dimer (<0.60) mg/L FEU Sodium (137-145) mmol/L Carbon Dioxide (22-30) mmol/L BUN (9-20) mg/dL Glucose (74-99) mg/dL POC Glucose (mg/dL) 146 H 184 H 132 H (75-99) mg/dL Lactate Dehydrogenase (313-618) U/L 12/01/20 12/02/20 12/02/20 Range/Units 21:00 05:00 05:10 WBC 16.0 H (3.8-10.6) k/uL Plt Count 95 L (150-450) k/uL Neutrophils # 15.1 H (1.3-7.7) k/uL Lymphocytes # 0.3 L (1.0-4.8) k/uL D-Dimer (<0.60) mg/L FEU Sodium 134 L (137-145) mmol/L Carbon Dioxide 31 H (22-30) mmol/L BUN 37 H (9-20) mg/dL Glucose 174 H (74-99) mg/dL POC Glucose (mg/dL) 125 H (75-99) mg/dL Lactate Dehydrogenase 1663 H (313-618) U/L 12/02/20 12/02/20 Range/Units 06:00 06:39 WBC (3.8-10.6) k/uL Plt Count (150-450) k/uL Neutrophils # (1.3-7.7) k/uL Lymphocytes # (1.0-4.8) k/uL D-Dimer 5.96 H (<0.60) mg/L FEU Sodium (137-145) mmol/L Carbon Dioxide (22-30) mmol/L BUN (9-20) mg/dL Glucose (74-99) mg/dL POC Glucose (mg/dL) 145 H (75-99) mg/dL Lactate Dehydrogenase (313-618) U/L
[2020-12-02] MEDS: FLUTICASONE 50MCG/SPRAY NASAL 16GM EA NOSTRIL SCH (08:18)
[2020-12-02] MEDS: ZINC SULFATE 220 MG CAP PO SCH (08:19)
[2020-12-02] MEDS: DICLOFENAC SODIUM GEL 100 GM TUBE TOPICAL SCH ×4 (08:19→21:27)
[2020-12-02] MEDS: ASCORBIC ACID 500 MG TAB PO SCH ×2 (08:19→21:28)
[2020-12-02] MEDS: CHOLECALCIFEROL 25 MCG (1000 IU) TABLET PO SCH (08:19)
[2020-12-02] MEDS: ALPRAZolam 0.25 MG TAB PO SCH ×3 (08:19→21:28)
[2020-12-02] MEDS: ENOXAPARIN 40 MG/0.4 ML SYRINGE SQ SCH (08:19)
[2020-12-02 11:47] LABS: Glucose,Whole Blood 139 mg/dL (75-99)
--- NOTE | 2020-12-02 12:35 | P.PN ---
Subjective Progress Note Date: 12/02/20 Principal diagnosis: COVID-19 pneumonia On today's evaluation on the 11/15/2020 patient seen in follow-up on medical surgical floor. His O2 saturations are marginal, on 6 L his pulse ox is 90%. Does not seem to be in any acute distress, no increased work of breathing. Occasional cough, nonproductive, patient was outside the window for Remdesivir. He is not vaccinated, S x-ray on admission showed significant patchy infiltrates compatible with his history of COVID-19 infection. Blood pressure has been stable, afebrile. His labs have been reviewed, d-dimer is 0.52, which is 888, CRP is 5.7. Patient is currently on Decadron 6 mg, he is on prophylactic dose Lovenox. Today's evaluation on 11/16/2020 patient seen in follow-up on medical surgical floor, his oxygen demand has increased in the last 24 hours, and his FiO2 was titrated to 10 L, his pulse ox is 91-92%, does not appear to be in any acute respiratory distress, he sitting up in the chair, is awake and alert, oriented 3, his been afebrile overnight, blood pressure is been stable, today's chest x- ray shows patchy perihilar and left lower lobe infiltrate persistence. The patient was started on on Bariticinib, Decadron 6 mg daily, and prophylactic dose of Lovenox. His appetite is poor per nursing staff, he seems to be depressed. Labs have been reviewed, his d-dimer is low at 0.50, his LDH from yesterday was 888, and CRP was 5.7. On 11/17/2020 patient seen in follow-up on the surgical floor. He is currently on Airvo 60 L and FiO2 of 94% in addition to partial nonrebreather mask and his pulse ox is around 90-92%. Patient easily desaturates with any activity. He is currently on his abdomen, he is self proning, and his oxygen does improve when he does that with a pulse ox of 95-96%, he tolerates proning fairly well. Patient is on day 3 of Bariticinib, he is also on Decadron 6 g daily, and prophylactic dose of Lovenox. His chest x-ray today shows mild cardiomegaly with bilateral multifocal opacities with no significant change from most recent chest x-ray. Today's labs have been reviewed, with blood cell count is 10, hemoglobin is 14.9, lymphocyte count is 0.7, d-dimer is 0.93, electrolytes are within normal limits, BUN is 25 creatinine 0.82. Reevaluated today on 11/18/2020, patient remains on airvo , and on nonrebreather mask, his FiO2 is at 90%, and flow is 60 L/m via airvo. Saturation is marginal, however the patient seems to be rather comfortable. His O2 saturation is in the low 90s, desaturates easily with activity. He is doing self groaning, and he does improve with self groaning hence I'm recommending titrating his FiO2 down as his oxygenation improved. BC today is relatively normal d-dimer is up a bit at 0.93. Electrolytes are normal renal profile is normal. Last chest x-ray from 11/17 continues to show bilateral multifocal opacities consistent with COVID-19 infection, not much improvement noted based on the chest x-ray. Patient was reevaluated today on 11/19/2020, remains on the regular medical floor, remains on Airvo plus nonrebreather mask, and his O2 saturation is in the range of 93-96%. Patient is surprisingly comfortable, sitting in a recliner, not in any distress. WBC count is 12 hemoglobin 14.8 electrolytes are normal renal profile is normal, LDH is 566 and his C-reactive protein is 8.1. Slightly bit more elevated compared to yesterday. Patient remains on the COVID- 19 cocktail, remains on Lovenox at 40 mg subcu twice a day, and he is on Decadron, as well as baricitinib Reevaluated today on 11/20/2020, patient is basically about the same, not much different today from yesterday. O2 saturation remains marginal in the low 90s, patient remains on airvo at 90%, and 60 L flow. He also has a nonrebreather mask, and O2 saturation remains marginal at best. Clinically however the patient is about the same, has been adjusting his sleep positions and sometimes he notices significant improvement when he lays on the left side of the right side. Unable to go into a prone position. CBC is relatively normal his d-dimer is a bit up 1.38 his electrolytes are normal renal profile is normal, LDH is 566 C-reactive protein is a bit higher today 8.1. Pro-calcitonin is 0.11 Patient was reevaluated today on 11/21/2020, remains on airvo at maximal flow and FiO2, patient remains on nonrebreather mask, O2 saturation is in the high 80s and low 90s. Patient feels better in the right lateral decubitus position, he is basically overall about the same. He is not demonstrating any significant improvement or any worsening. Remains on all the COVID-19 cocktail, not much changed. D-dimer 3.2 today. Patient was reevaluated today on 11/23/2020, I saw him yesterday and I recommended transfer to the ICU. Remains in the ICU, patient is on BiPAP, IPAP 12 EPAP of 6 and FiO2 is 100%. His O2 saturation is marginal in the low 90s, improves when the patient goes in the left lateral decubitus position. Hence I advised him to stay as often as he can in the left lateral decubitus position. Patient is scheduled to have a PICC line placed for TPN. Has not been eating much, and his interstitial status is poor. Patient remains on baricitinib, and he is on the rest of the COVID-19 cocktail. Today's d-dimer is 2.46. Clinicall y however and surprisingly the patient is feeling comfortable, does not seem to be in distress. WBC count is 12 hemoglobin is 15 electrolytes are normal renal profile is normal, inflammatory markers are high LDH of 1691 and C-reactive protein is 13.4. Pro-calcitonin remains low at 0.09. Reevaluated today on 11/24/2020, patient remains in the ICU, transitioned yesterday from BiPAP to airvo at 60 L flow, and 90% FiO2. His O2 saturation is marginal, patient did use BiPAP last night. He went off BiPAP at 5 AM this morning. Remains on IV fluid at 75 mL/h, he is also on TPN via PICC line. Over all the patient is holding nicely, remains on Decadron twice a day, is also on baricitinib seems to be tolerating both well. Patient is considered marginal at best, I'm not seeing significant improvement and I'm not seeing worsening at this point. WBC count today is noted to be high at 16.7. Electrolytes are normal renal profile is normal, his last pro-calcitonin 2 days ago was 0.09, relatively unremarkable. Reevaluated today on 11/25/2020, patient remains in the ICU, alternating between airvo and BiPAP, nonetheless he remains on relatively high FiO2 and high flow if clinically the patient is about the same, his O2 saturation remains marginal in the high 80s and low 90s. Patient remains on TPN which I plan to discontinue since the patient is eating better today, he feels a bit better today, chest x- ray is basically about the same. Patient remains on the COVID-19 cocktail, on multiple drugs as listed below. Respiratory BC count is 15.1 hemoglobin 14.3 d- dimer is 5.48, patient remains on Lovenox at 40 mg subcu twice a day. His renal profile is normal his electrolytes are normal, LDH is 2086 and C-reactive protein is 3.6. His LDH is higher than yesterday, his C-reactive protein is lower, and his d-dimer is higher. On 11/26/2020 patient seen in follow-up in intensive care unit. He is awake and alert, oriented 3, he is currently off BiPAP, and she is on Airvo at 60 L and FiO2 of 90%, and his pulse ox is around 84-85%. She does wear BiPAP support with pressure of 12 and 6 and FiO2 of 100%, and usually his O2 saturations are better on BiPAP support and run at 90-92%. he does come off the BiPAP to eat meals. Seems fairly comfortable, despite low O2 saturations. Afebrile, hemodynamically has been stable. He is on IV 0.9 normal saline at a rate of 75 ML per hour, no other drips, he continues on Baricitinib 4 mg daily, since 11/15/2020. He remains on Decadron 6 mg twice daily, and Lovenox 40 mg twice daily. Today's chest x-ray has been reviewed showing patchy infiltrates throughout both lung felix, without significant change since yesterday. Today's labs have been reviewed, his d-dimer is at 6.6, slightly increased from yesterday from 5.48. His electrolytes are unremarkable, B1 is 25 creatinine 0.67, LDH has increased to 2423, and CRP actually came down and is down to 3, pro-calcitonin level was repeated and came back negative at 0.09. White blood cell count is 17.4 on today's labs, lymphocyte count is 0.7. Blood cultures have shown no growth. The patient is seen today 11/27/2020 in follow-up in the intensive care unit. He is currently sitting up in bed. Awake and alert in mild respiratory distress. He is currently on theAirVo high flow oxygen device for meals at 60 L/m and 90% FiO2. He's been mainly BiPAP dependent 12/6 at 100% FiO2 to maintain O2 saturations 88-92%. He has 0.9 normal saline at 75 ML's per hour. He is eating well still. Chest x-ray is reviewed and continues to show diffuse increased lung markings. Prominent pulmonary vascular congestion. Blood cultures revealed no growth. White count 21.5. Hemoglobin 14.3. Lymphocytes 0.6. D-dimer 7.29. Sodium 135. Potassium 4.7. Creatinine 0.74. AST 48, ALT 54. C-reactive protein 2.9. Pro-calcitonin 0.09. He remains on Baricitinib, Decadron, Lovenox, vitamin supplements. Dopplers of the lower extremities were negative for DVT bilaterally. The patient is seen today 11/28/2020 in follow-up in the intensive care unit. He is currently sitting up in a chair at the bedside. Awake and alert. Still requiring BiPAP 12/6 and 100% FiO2 to maintain O2 saturations in the high 80s low 90s. He is alternating with the AirVo at 60 L/m and 90% FiO2 for meals. Chest x-ray continues to revealed diffuse interstitial and patchy bilateral infiltrates. Some slight improvement in the left base but otherwise unchanged. White count 20.4. Hemoglobin 14.8. Platelets 130. Sodium 134. Potassium 4.8. Creatinine 0.62. AST 55. ALT 55. LDH 2934. C-reactive protein 3.3. D- dimer 10.2. CT angiogram of the chest is pending. He remains on Baricitinib, Decadron, Lovenox, vitamin supplements. The patient is seen today 11/29/2020 in follow-up in the intensive care unit. He is currently resting fairly comfortably in bed. Remains awake, alert. He did utilize BiPAP all night at 12/600% FiO2. He'll be switched over to care of O high flow oxygen at 60 L and 94% for breakfast. CT angiogram ruled out pulmonary embolism. Continues with diffuse bilateral infiltrates. White count 16.4. Hemoglobin 15.1 platelet count 120. D-dimer 13.5. Sodium 136. Potassium 4.6. Creatinine 0.76. Glucose 145. LDH 2086. C-reactive protein 2.0. He has completed his course of Baricitinib. He is continued on IV Solu- Medrol, Lovenox, vitamin supplement, Symbicort and albuterol. The patient is seen today November 30 2020 in follow-up in the intensive care unit. He is currently resting in bed. Awake and alert in no acute distress. He remains on Arava at 60 L/m and 94% FiO2. He's been off the BiPAP. Chest x- ray continues to show coarse infiltrates bilaterally without much improvement. White count 19.4. Hemoglobin 15.0. Platelets 126. Sodium 135. Potassium 4.5. Creatinine 0.73. LDH 2157. C-reactive protein 1.5. D-dimer 10.2. He remains on Symbicort and albuterol along with Lovenox, IV Solu-Medrol, Lovenox, vitamin supplements. He has completed his course of Baricitinib. The patient is seen today 12/01/2020 and follow-up in the intensive care unit. He is currently sitting up in a chair at the bedside. He remains awake and alert. Mild respiratory distress. He's been off the BiPAP. He is currently on Arava O high flow oxygen at 60 L/m and 90% FiO2 occasionally adding the nonrebreather mask when needed. 0.9 normal saline at 20 ML's per hour. White count 16.0. Hemoglobin 15.1. Platelet count 112,000. Sodium 135. Potassium 4.6. Creatinine 0.84. He remains on IV Solu-Medrol, Lovenox, vitamin supplements. Continued on Symbicort and albuterol. The patient is seen today 12/02/2020 and follow-up in the intensive care unit. He is currently resting fairly comfortably in bed. Awake and alert in no acute respiratory distress. He has been on the AirVo at 60 L and 90% FiO2 and maintaining O2 saturations in the mid to upper 80s. Respiratory rate in the 20s. He's been afebrile. Hemodynamically stable. 0.9 normal saline at 20 ML's per hour. White count 16.0. Hemoglobin 14.5. Platelet count 95,000. D-dimer 5.96. Sodium 134. Potassium 4.7. Creatinine 0.75. LDH 1663. C-reactive protein 0.6. He remains on Lovenox, IV Solu-Medrol, vitamin supplements. Continued on bronchodilators. Objective - Vital Signs Vital signs: Vital Signs Temp 98.3 F 12/02/20 08:00 Pulse 71 12/02/20 11:00 Resp 22 12/02/20 11:00 BP 121/76 12/02/20 11:00 Pulse Ox 88 L 12/02/20 11:00 Intake & Output 12/01/20 12/02/20 12/02/20 18:59 06:59 18:59 Intake Total 960 260 320 Output Total 650 825 300 Balance 310 -565 20 Weight 106.1 kg Intake: IV 240 260 80 Sodium Chloride 0.9% 1, 240 260 80 000 ml @ 20 mls/hr IV . Q24H [facility] Rx#:[id number] Oral 720 240 Output: Urine 650 825 300 Other: Voiding Method Urinal Urinal Urinal # Voids 0 0 # Bowel Movements 1 - Exam GENERAL EXAM: Alert, very pleasant, 60-year-old male patient, on AirVo at 60 L and FiO2 of 90%, he has been remaining off BiPAP HEAD: Normocephalic/atraumatic. EYES: Normal reaction of pupils, equal size. Conjunctiva pink, sclera white. NOSE: Clear with pink turbinates. THROAT: No erythema or exudates. NECK: No masses, no JVD, no thyroid enlargement, no adenopathy. CHEST: No chest wall deformity. Symmetrical expansion. LUNGS: Equal air entry with crackles in the bilateral posterior bases CVS: Regular rate and rhythm, normal S1 and S2, no gallops, no murmurs, no rubs ABDOMEN: Soft, nontender. No hepatosplenomegaly, normal bowel sounds, no guarding or rigidity. EXTREMITIES: No clubbing, no edema, no cyanosis, 2+ pulses and upper and lower extremities. MUSCULOSKELETAL: Muscle strength and tone normal. SPINE: No scoliosis or deformity SKIN: No rashes CENTRAL NERVOUS SYSTEM: No focal deficits, tone is normal in all 4 extremities. PSYCHIATRIC: Alert and oriented -3. Appropriate affect. Intact judgment and insight. - Labs CBC & Chem 7: 12/02/20 05:00 12/02/20 05:10 Labs: Abnormal Lab Results - Last 24 Hours (Table) 12/01/20 12/01/20 12/01/20 Range/Units 16:28 19:54 21:00 WBC (3.8-10.6) k/uL Plt Count (150-450) k/uL Neutrophils # (1.3-7.7) k/uL Lymphocytes # (1.0-4.8) k/uL D-Dimer (<0.60) mg/L FEU Sodium (137-145) mmol/L Carbon Dioxide (22-30) mmol/L BUN (9-20) mg/dL Glucose (74-99) mg/dL POC Glucose (mg/dL) 184 H 132 H 125 H (75-99) mg/dL Lactate Dehydrogenase (313-618) U/L 12/02/20 12/02/20 12/02/20 Range/Units 05:00 05:10 06:00 WBC 16.0 H (3.8-10.6) k/uL Plt Count 95 L (150-450) k/uL Neutrophils # 15.1 H (1.3-7.7) k/uL Lymphocytes # 0.3 L (1.0-4.8) k/uL D-Dimer 5.96 H (<0.60) mg/L FEU Sodium 134 L (137-145) mmol/L Carbon Dioxide 31 H (22-30) mmol/L BUN 37 H (9-20) mg/dL Glucose 174 H (74-99) mg/dL POC Glucose (mg/dL) (75-99) mg/dL Lactate Dehydrogenase 1663 H (313-618) U/L 12/02/20 12/02/20 Range/Units 06:39 11:36 WBC (3.8-10.6) k/uL Plt Count (150-450) k/uL Neutrophils # (1.3-7.7) k/uL Lymphocytes # (1.0-4.8) k/uL D-Dimer (<0.60) mg/L FEU Sodium (137-145) mmol/L Carbon Dioxide (22-30) mmol/L BUN (9-20) mg/dL Glucose (74-99) mg/dL POC Glucose (mg/dL) 145 H 139 H (75-99) mg/dL Lactate Dehydrogenase (313-618) U/L Assessment and Plan Assessment: 1 Acute Covid 19 related pneumonia. The patient became symptomatic approximately 8 days prior to arrival. Presented with worsening shortness of breath and bilateral pneumonia. Patient is not vaccinated. The patient had not received any outpatient treatments for Covid 19 infection. Diagnosis established during this current admission. Started on Bariticinib on 11/15/2020 in view of worsening hypoxic respiratory failure. Patient was outside the window for Remdesivir 2 Acute hypoxic respiratory failure which has significantly progressed since admission, and patient is currently on Airvo at 60 L and FiO2 of 90%. He was transferred to the intensive care unit on 11/22/2020 3 Obesity with a BMI of 36. 4 Increased inflammatory markers related to acute COVID-19 pneumonia 5 Increased d-dimer, related to viral pneumonia, currently on Lovenox 40 mg daily, Dopplers of the lower extremity negative, CT angiogram ruled out pulmonary embolism Plan: The patient was seen and evaluated by Dr. Cochran Currently stable and remains on AirVo, not on BiPAP Continue Lovenox, Solu-Medrol, bronchodilators, vitamin supplements Titrate the FiO2 as tolerated We will continue to follow Critical care time 36 minutes I, the cosigning physician, performed a history & physical examination of the patient. Lungs sounds with crackles in the bilateral posterior bases. Maintaining good O2 saturations in the 90s on AirVo high flow oxygen at 60 L/m at 90% FiO2, I discussed the assessment and plan of care with my nurse practitioner, Rsoeanne Carey. I attest to the above note as dictated by her.
[2020-12-02] MEDS: ACETAMINOPHEN TAB 325 MG TAB PO PRN (15:50)
[2020-12-02 16:34] LABS: Glucose,Whole Blood 177 mg/dL (75-99)
[2020-12-02] MEDS: ALBUTEROL HFA INHALER INHALATION PRN (16:35)
[2020-12-02 21:20] LABS: Glucose,Whole Blood 137 mg/dL (75-99)
[2020-12-02] MEDS: MIRTAZAPINE 15 MG TAB PO SCH (21:28)
[2020-12-02] MEDS: MELATONIN 3 MG TABLET PO SCH (21:28)
[2020-12-03 04:22] LABS: Basophils % (A) 0 %; Eosinophils % (A) 0 %; HCT 42.5 % (39.0-53.0); HGB 14.7 gm/dL (13.0-17.5); Lymphocytes # (A) 0.5 k/uL (1.0-4.8); Lymphocytes % (A) 3 %; MCH 29.8 pg (25.0-35.0); MCHC 34.7 g/dL (31.0-37.0); MCV 86.1 fL (80.0-100.0); Mean Platelet Volume 8.5; Monocytes # (A) 0.4 k/uL (0-1.0); Monocytes % (A) 3 %; Neutrophils # (A) 13.6 k/uL (1.3-7.7); Neutrophils % (A) 93 %; Platelet Count 110 k/uL (150-450); RBC 4.94 m/uL (4.30-5.90); RDW 13.9 % (11.5-15.5); WBC 14.6 k/uL (3.8-10.6)
[2020-12-03 04:23] LABS: African American GFR (CKD) >90 (>60 ml/min/1.73 sqM); Anion Gap 3 mmol/L; Blood Urea Nitrogen 34 mg/dL (9-20); Calcium 8.8 mg/dL (8.4-10.2); Carbon Dioxide 31 mmol/L (22-30); Chloride 100 mmol/L (98-107); Glucose 137 mg/dL (74-99); Non-African American GFR(CKD) >90 (>60 ml/min/1.73 sqM); Potassium 4.8 mmol/L (3.5-5.1); Sodium 134 mmol/L (137-145)
[2020-12-03 05:52] LABS: Glucose,Whole Blood 126 mg/dL (75-99)
[2020-12-03] MEDS: INSULIN ASPART (NovoLOG) 100 UNIT/ML VIAL SQ SCH ×4 (06:47→20:54)
[2020-12-03] MEDS: methylPREDNISolone SOD SUCCI 125 MG/2 ML VIAL IV SCH ×4 (06:50→23:57)
[2020-12-03 08:22] LABS: Glucose,Whole Blood 185 mg/dL (75-99)
--- NOTE | 2020-12-03 08:46 | P.PN ---
Subjective Progress Note Date: 12/03/20 12/03/2020, seeing the patient for a follow-up. The patient remains in intensive care unit as the patient is being treated for COVID-19 related pneumonia. He was in significant hypoxic respiratory failure. Nevertheless, he did well with high flow oxygen and currently is on 60 L with an FiO2 of 90%. He still desaturates with activity and talking. However he does recover and his pulse ox essentially within 88-92%. Mentally is doing well. He is doing breathing exercises. No significant cough or sputum production. No chest pain. He is on IV Solu Medrol 60 mg every 6 hours. He remains on Lovenox 40 mg subcu every 24 hours. Inflammatory markers were noted and there were essential declining. The patient is tolerating his diet. No altered mentation. No nausea. No vomiting. No emesis. His blood work from today is showing a white cell count of 14.6 with a hemoglobin of 14.7. Platelet counts have been essentially low yet stable at 110. His d-dimer from 12/02/2020 was 5.9. Electrolytes were normal. Renal function was normal. Blood sugar was normal. His most recent LDH level from 12/02/2020 was 1663 which is essentially lower compared to earlier values with a CRP level of 0.6. Objective - Vital Signs Vital signs: Vital Signs Temp 96.7 F L 12/03/20 04:00 Pulse 84 12/03/20 07:00 Resp 26 H 12/03/20 07:00 BP 140/91 12/03/20 07:00 Pulse Ox 92 L 12/03/20 07:00 Intake & Output 12/02/20 12/03/20 12/03/20 18:59 06:59 18:59 Intake Total 1060 480 Output Total 950 625 Balance 110 -145 Weight 109.1 kg Intake: IV 220 0 Sodium Chloride 0.9% 1, 220 0 000 ml @ 20 mls/hr IV . Q24H [facility] Rx#:[id number] Oral 840 480 Output: Urine 950 625 Other: Voiding Method Urinal Urinal # Voids 0 - Exam GENERAL EXAM: Alert, very pleasant, 60-year-old male patient, on AirVo at 60 L and FiO2 of 90% HEAD: Normocephalic/atraumatic. EYES: Normal reaction of pupils, equal size. Conjunctiva pink, sclera white. NOSE: Clear with pink turbinates. THROAT: No erythema or exudates. NECK: No masses, no JVD, no thyroid enlargement, no adenopathy. CHEST: No chest wall deformity. Symmetrical expansion. LUNGS: Equal air entry with crackles in the bilateral posterior bases CVS: Regular rate and rhythm, normal S1 and S2, no gallops, no murmurs, no rubs ABDOMEN: Soft, nontender. No hepatosplenomegaly, normal bowel sounds, no guarding or rigidity. EXTREMITIES: No clubbing, no edema, no cyanosis, 2+ pulses and upper and lower extremities. MUSCULOSKELETAL: Muscle strength and tone normal. SPINE: No scoliosis or deformity SKIN: No rashes CENTRAL NERVOUS SYSTEM: No focal deficits, tone is normal in all 4 extremities. PSYCHIATRIC: Alert and oriented -3. Appropriate affect. Intact judgment and insight. - Labs CBC & Chem 7: 12/03/20 03:28 12/03/20 03:28 Labs: Abnormal Lab Results - Last 24 Hours (Table) 12/02/20 12/02/20 12/02/20 Range/Units 11:36 16:32 21:19 WBC (3.8-10.6) k/uL Plt Count (150-450) k/uL Neutrophils # (1.3-7.7) k/uL Lymphocytes # (1.0-4.8) k/uL Sodium (137-145) mmol/L Carbon Dioxide (22-30) mmol/L BUN (9-20) mg/dL Glucose (74-99) mg/dL POC Glucose (mg/dL) 139 H 177 H 137 H (75-99) mg/dL 12/03/20 12/03/20 12/03/20 Range/Units 03:28 03:28 05:50 WBC 14.6 H (3.8-10.6) k/uL Plt Count 110 L (150-450) k/uL Neutrophils # 13.6 H (1.3-7.7) k/uL Lymphocytes # 0.5 L (1.0-4.8) k/uL Sodium 134 L (137-145) mmol/L Carbon Dioxide 31 H (22-30) mmol/L BUN 34 H (9-20) mg/dL Glucose 137 H (74-99) mg/dL POC Glucose (mg/dL) 126 H (75-99) mg/dL 12/03/20 Range/Units 08:20 WBC (3.8-10.6) k/uL Plt Count (150-450) k/uL Neutrophils # (1.3-7.7) k/uL Lymphocytes # (1.0-4.8) k/uL Sodium (137-145) mmol/L Carbon Dioxide (22-30) mmol/L BUN (9-20) mg/dL Glucose (74-99) mg/dL POC Glucose (mg/dL) 185 H (75-99) mg/dL Assessment and Plan Plan: 1 Acute Covid 19 related pneumonia. The patient became symptomatic approximately 8 days prior to arrival. Presented with worsening shortness of breath and bilateral pneumonia. Patient is not vaccinated. The patient had not received any outpatient treatments for Covid 19 infection. Diagnosis established during this current admission. Started on Bariticinib on 11/15/2020 in view of worsening hypoxic respiratory failure. Patient was outside the window for Remdesivir 2 Acute hypoxic respiratory failure which has significantly progressed since admission, and patient is currently on Airvo at 60 L and FiO2 of 90%. He was transferred to the intensive care unit on 11/22/2020 3 Obesity with a BMI of 36. 4 Increased inflammatory markers related to acute COVID-19 pneumonia 5 Increased d-dimer, related to viral pneumonia, currently on Lovenox 40 mg daily, Dopplers of the lower extremity negative, CT angiogram ruled out pu lmonary embolism Plan: Plan Check and symmetrical markings including LDH and CRP, markers have improved. IV solumedrol 60 mg q 6 Lovenox 40 minutes subcu for DVT prophylaxis IVF KVO Zinc sulfate and vitamin C and vitamin D supplements Monitor oxygenation We'll continue to follow. Condition is critical. The patient continues to be on high flow of oxygen at 60 L weren't FiO2 of 90%. Chest x-ray shows no major improvement compared to yesterday. His current pulse ox is ranging between 88-92%. No significant improvement since yesterday. SUGGEST keeping the patient in ICU for another 24 hours for close monitoring. Critical care evaluation , 30 min
[2020-12-03] MEDS: ACETAMINOPHEN TAB 325 MG TAB PO PRN ×2 (08:57→20:52)
[2020-12-03] MEDS: ALBUTEROL HFA INHALER INHALATION SCH ×3 (08:57→20:01)
[2020-12-03] MEDS: ALPRAZolam 0.25 MG TAB PO SCH ×3 (08:58→21:24)
[2020-12-03] MEDS: ASCORBIC ACID 500 MG TAB PO SCH ×2 (08:58→20:53)
[2020-12-03] MEDS: CHOLECALCIFEROL 25 MCG (1000 IU) TABLET PO SCH (08:58)
[2020-12-03] MEDS: ZINC SULFATE 220 MG CAP PO SCH (08:58)
[2020-12-03] MEDS: ENOXAPARIN 40 MG/0.4 ML SYRINGE SQ SCH (08:58)
[2020-12-03] MEDS: FLUTICASONE 50MCG/SPRAY NASAL 16GM EA NOSTRIL SCH (08:59)
[2020-12-03] MEDS: SYMBICORT 160-4.5 MCG INHALER INHALATION SCH ×2 (11:54→20:01)
--- NOTE | 2020-12-03 12:49 | P.PN ---
Subjective Progress Note Date: 12/03/20 This is a pleasant 60-year-old gentleman patient of Dr. Ridge Christina. He doesn't see a physician often and does not note any medical diseases, except for obesity. He comes seen secondary to fever and chills, cough, starting December 06 first, along with muscle aches, lack of appetite and diarrhea. he was tested for call bid November 08, which required at week of reporting, subsequently was sent to emergency room secondary to worsening symptoms, including dyspnea on exertion, shortness of breath and worsening cough without hemoptysis. Fever, shortness of breath lingers, no treatment given to him prior to this admission. The is vaccinated, but the patient is not. He does not believe in vaccines at that time. He comes in the emergency room, with hypoxemia, with very minimal conversat ional dyspnea, chest x-ray, shows pulmonary infiltrate consistent with Covid pneumonia, oxygen currently is at 6 L nasal cannula, d-dimer was 0.6, LFTs are minimally elevated, 64 AST, lactic acid 2.0 sodium 132, creatinine of 0.9, glucose of 122, LDH of 888, CRP of 5.7. Urine protein noted, without hematuria or proteinuria. Covid was again retested 11/14, PCR is positive. Consult to Dr. Eduardo and pulmonary,, 11/16: Patient is currently on oxygen at 6 L nasal cannula increased to 7 L with humidified oxygen. Patient seen and followed by pulmonary medicine and has been started on Bariticinib, Decadron 6 mg daily, and prophylactic dose of Lovenox. He is reaching 1750 on incentive spirometry. Patient did have episode of diarrhea yesterday, none today and complains of decreased appetite. Patient complains of nasal congestion and Flonase added. 11/17: Patient had difficulty with oxygenation during the night and this morning transitioned to Airfo and partial nonrebreather. Pulse ox is currently running 90-92%, patient is prone. He has been afebrile, heart rate 88, blood pressure 1 04/63. Repeat d-dimer is elevated at 0.93. Blood sugar 167. C-reactive protein increased to 5.3. AST is 83 and ALT 51. Blood culture remains with no growth after 48 hours. Repeat chest x-ray reveals mild cardiomegaly with bilateral multifocal opacities consistent with Covid 19 infection. No s ignificant change from most recent x-ray. Albuterol inhaler and Symbicort inhaler added. 11/18: Patient is currently on AirVo and nonrebreather with pulse ox of 93%. He's been afebrile, heart rate 85, blood pressure 103/68. Blood culture no growth at 72 hours 2 specimens. Plan to continue proning. Repeat laboratory studies ordered for tomorrow including inflammatory markers. The patient is having difficulty sleeping and melatonin added. Lovenox increased to twice daily dosing. 11/19: Patient remains in isolation. He is on AirVO plus nonrebreather with pulse ox of 93%. He has been afebrile, heart rate 85, blood pressure 122/69. Patient is found sitting in recliner and encouraged to prone when he is able to. Repeat blood work reveals WBC 12, hemoglobin 14.8, platelet count 282. D-dimer is 1.38. Other blood work is pending. Patient is continued on Decadron, vitamin supplements, Lovenox. He is on day #07/20 of Baricitinib. 11/20: Patient has been afebrile, heart rate 71, blood pressure 107/71, pulse ox 88-93% on AirVo plus nonrebreather. Patient seems to be depressed and frustrated with coarse. Noted that he started on Xanax yesterday by pulmonary. We will add and Remeron 7.5 mg at bedtime. Hemoglobin A1c came back at 6.4. Patient is encouraged to use incentive spirometry, increase activity, prone. Discussed CODE STATUS with patient and he wishes to be a full code. 11/21: Patient will pulse ox of 83% as he was on Airvo only and once nonrebreather was placed she went up to 89%. Patient is not eating much. He has been encouraged to take protein supplement, increase activity and prone but patient does not seem motivated. He was started on Remeron last night which will hopefully help with his mood and appetite. He has continued on Lovenox, dexamethasone, Baricitinib #09/19 repeat blood work reveals WBC 14.3. D-dimer increasing to 3.2. Electrolytes normal, creatinine 0.76. LDH is high at 1476, C-reactive protein stable 6.6. 11/22: Patient continues to be on airflow and nonrebreather and with minimal movement, pulse ox drops down to 82%, otherwise patient is maintaining 92-94%. One dose of IV Lasix ordered for today. Temperature max yesterday afternoon was 101.2. Heart rate in the 70s and 80s. Blood pressure 110/59. Urinalysis was negative for infection. Repeat blood work will be ordered for tomorrow. 11/23: Patient Was moved into ICU overnight. He has been on BiPAP through the night and pulse oxing 95% recently on his side, currently sitting on the edge of the bed pulse oxing 90%, with talking he drops to 83%. He is scheduled for PICC line insertion and plan to start TPN today. Patient has been afebrile, heart rate in the 60s, respiratory rate 28. WBC 12.0, hemoglobin 15, platelet count 351. Lymphocytes 11.1. D-dimer 2.46. Sodium 136, otherwise electrolytes are normal. BUN 30 creatinine 0.7. Blood sugar 128. Magnesium 2.5. Phosphorus 5.5. LDH 1691. C-reactive protein 13.4. Total protein 5.6. Blood cultures re main with no growth. Repeat chest x-ray this morning reveals stable diffuse bilateral infiltrates. Patient is on Baricitinib 10/20. Pulmonary has increased frequency of dexamethasone to twice daily and changed to IV6 mg IV twice daily. 11/24: Patient remain in the ICU, still on BiPAP with pulse ox is improving at this point. Continue dexamethasone and Baricitinib 11/20, patient had full meal this morning his TPN will be suspended after today. Patient will remain in the ICU at least for the next 48 hours. 11/25: Remain in the ICU still on BiPAP but his pulse ox is slightly bit better he still on dexamethasone and Baricitinib 12/20 seems to do slightly but better was agreed by intensive care studies TPN, patient oral intake is slightly but better and had slight improvement compared to yesterday. Surprisingly his marker went up slightly bit specially his LDH up to 2086 with C-reactive protein 3.6 kidney function remained good white blood cell climb up to 15.1 specially been on steroid. Chest x-ray still shows diffuse bilateral interstitial infiltrate and patchy opacification persistent but there is a slight improvement in the variation in the left lower lobe compared to few days earlier. 11/26: Patient remain on BiPAP with 100% oxygen to keep his pulse ox around 92 percentile, his d-dimer continue to be quite bit elevated today is having Doppler of the lower extremity but notes CT at this point. Remain on Symbicort, and albuterol HFA, his white blood cell is down 17,000, blood sugars better control. Chest x-ray still showed patchy infiltrate throughout both lung felix persistent didn't change. Patient had mild anxiety with no pain currently. 11/27: Patient remains in the intensive care unit. He is placed on airflow for eating and pulse ox drops to the 7083 percent range. Pulse ox 90-93% on100% BiPAP. He is afebrile, heart rate in the 70s, respiratory rate 27 and 32, blood pressure 102/71. WBC 21.5, lymphocytes 0.6. D-dimer 7.29. Blood sugars running between 111 and 171. Ferritin level [id number]. ALT 54, alkaline phosphatase 152. CK 27, C-reactive protein 2.9. Repeat chest x-ray reveals borderline cardiomegaly with prominent pulmonary vascular markings. Diffuse increased lung markings are present. Correlate for heart failure. Atypical pneumonia should be considered. Lower extremity ultrasound negative for DVT bilaterally. 11/28: Patient remains in the intensive care unit and found sitting in a chair at the bedside. He is continued on BiPAP and switched over to Arava and nonrebreather for meals. Repeat chest x-ray essentially unchanged. Repeat blood work reveals WBC 20.4, hemoglobin 14.8, platelet count 130. Sodium 134, potassium 4.8, creatinine 0.62. LDH 2934. C-reactive protein 3.3, d-dimer 10.2. CT angiogram of the chest has been ordered by pulmonary medicine which revealed slightly suboptimal study without evidence of acute pulmonary embolism. Mild cardiomegaly with bilateral cities and multifocal organizing consoli dations consistent with Covid19 infection. Lovenox has been changed to 40 mg daily and dexamethasone changed to Solu-Medrol 60 mg every 6 hours. Patient has completed course of Baricitinib. 11/29: Patient remains in the intensive care unit, patient is utilizing BiPAP and also Airvo with nonrebreather mask added at times as he tolerates. His oxygenation seems to be improving at 89-93%. Respiratory rate 24, heart rate 88, blood pressure 107/58. Patient does verbalize that he is feeling somewhat better today. WBC 16.4, hemoglobin 15.1, platelet count 120. D-dimer 13.49, C- reactive protein 2, LDH 2086, CK 47. Repeat chest x-ray reveals correlate for pneumonia, edema or pulmonary hemorrhage, there is cardiomegaly. Patient is currently continued on Lovenox, Solu-Medrol, bronchodilators and vitamin supplements. 11/30: Patient remains in intensive care unit, he sitting in a chair at the bedside. He is feeling a little bit better and breath sounds are sounding a little better from yesterday. He is currently on AirVO. Pulse ox is running 84-87%, he has been afebrile, heart rate in the 80s and 90s, respiratory rate in the 20s, blood pressure 110/67. Repeat blood work reveals WBC 19.4, platelet count 126. D-dimer 10.2, LDH 2157, CK 78, C-reactive protein 1.5. Sodium 135, BUN 44 creatinine 0.73. Patient is continued on Lovenox, IV Solu-Medrol, bronchodilators and supplements. 12/01: Patient remains in ICU, he is currently sitting in chair at the bedside. Patient continues to state that he feels a bit better breath sounds are sounding better compared to yesterday. He is currently on airflow. His pulse ox is running 87-89%, he is still short of breath with conversation. Patient has been afebrile, heart rate 72, respirations 28, blood pressure 109/61. WBC 16.0, hem oglobin 15.1, platelets 112, potassium 4.6, BUN 39, creatinine 0.84. Patient is continued on Lovenox, IV Solu-Medrol, bronchodilators and supplements. 12/02: Patient remains in ICU, he is currently sitting up in a chair at the bedside. Patient continues to have shortness of breath with activity and conversation. His chest x-ray unchanged to prior studies. D-dimer 5.96. Incentive spirometer is at the bedside however encouragement to utilize if needed. Patient has been afebrile, heart rate 85, respirations 28, blood pressure 138/86 pulse ox is 85-89% on Airvo. 12/03, patient remains ICU, he seems to be gradually improving, intending around for the better, has improvement on shortness of breath with conversation, nothing supple she did today for dyspnea, however with movement, he does have shortness of breath while in bed turning around. Patient has an airflow at 65 L, pulse ox 90%. No new fevers, no melena and hematochezia, nutrition is appropriate, and is getting better. REVIEW OF SYSTEMS Constitutional: No fever, no chills, no night sweats. No weight change. Reports weakness, reports fatigue no lethargy. Reports daytime sleepiness. EENT: No headache. No blurred vision or double vision, no loss of vision. No dizziness. No nasal drainage or congestion. No epistaxis. No sore throat. Lungs Reported shortness of breath, reported cough, no sputum production. No wheezing. Dyspnea with minimal exertion. dyspnea at rest. Cardiovascular: No chest pain, no lower extremity edema. No palpitations. No paroxysmal nocturnal dyspnea. No orthopnea. No lightheadedness or dizziness. No syncopal episodes. Abdominal: No abdominal pain. No nausea, vomiting. Reports diarrhea. No constipation. No bloody or tarry stools. Reports loss of appetite. Genitourinary: No dysuria, no increased frequency, no urgency. No urinary retention. Musculoskeletal: No myalgias. Generalized muscle weakness, no gait dysfunction, no frequent falls. No back pain. No neck pain. Integumentary: No wounds, no lesions. No rash or pruritus. No unusual brui sing. Neurologic: No aphasia. No facial droop. No change in mentation. No head injury. No headache. No paresthesia. Psychiatric: No depression. No anxiety. No mood swings. Insomnia. Reports difficulty sleeping. Endocrine: Noted abnormal blood sugars. Objective - Vital Signs Vital signs: Vital Signs Temp 97.6 F 12/03/20 08:00 Pulse 76 12/03/20 11:00 Resp 20 12/03/20 11:00 BP 117/80 12/03/20 11:00 Pulse Ox 90 L 12/03/20 11:00 Intake & Output 12/02/20 12/03/20 12/03/20 18:59 06:59 18:59 Intake Total 1060 480 150 Output Total 950 625 400 Balance 110 -145 -250 Weight 109.1 kg Intake: IV 220 0 0 Sodium Chloride 0.9% 1, 220 0 0 000 ml @ 20 mls/hr IV . Q24H [facility] Rx#:[id number] Oral 840 480 150 Output: Urine 950 625 400 Other: Voiding Method Urinal Urinal Urinal # Voids 0 - Constitutional General appearance: Present: cooperative, no acute distress - EENT Eyes: Present: EOMI, PERRLA, dentition normal, normal appearance ENT: Present: NA/AT, normal oropharynx - Respiratory Respiratory: bilateral: CTA, diminished - Cardiovascular Rhythm: regular Abnormal Heart Sounds: Absent: systolic murmur, diastolic murmur, rub, S3 Gallop, S4 Gallop, click, other - Gastrointestinal General gastrointestinal: Present: normal bowel sounds, soft - Integumentary Integumentary: Present: normal, normal turgor - Neurologic Neurologic: Present: CNII-XII intact - Musculoskeletal Musculoskeletal: Present: generalized weakness, strength equal bilaterally - Psychiatric Psychiatric: Present: A&O x's 3, appropriate affect, intact judgment & insight - Labs CBC & Chem 7: 12/03/20 03:28 12/03/20 03:28 Labs: Abnormal Lab Results - Last 24 Hours (Table) 12/02/20 12/02/20 12/03/20 Range/Units 16:32 21:19 03:28 WBC 14.6 H (3.8-10.6) k/uL Plt Count 110 L (150-450) k/uL Neutrophils # 13.6 H (1.3-7.7) k/uL Lymphocytes # 0.5 L (1.0-4.8) k/uL Sodium (137-145) mmol/L Carbon Dioxide (22-30) mmol/L BUN (9-20) mg/dL Glucose (74-99) mg/dL POC Glucose (mg/dL) 177 H 137 H (75-99) mg/dL 12/03/20 12/03/20 12/03/20 Range/Units 03:28 05:50 08:20 WBC (3.8-10.6) k/uL Plt Count (150-450) k/uL Neutrophils # (1.3-7.7) k/uL Lymphocytes # (1.0-4.8) k/uL Sodium 134 L (137-145) mmol/L Carbon Dioxide 31 H (22-30) mmol/L BUN 34 H (9-20) mg/dL Glucose 137 H (74-99) mg/dL POC Glucose (mg/dL) 126 H 185 H (75-99) mg/dL Assessment and Plan Plan: 1. Acute respiratory failure: Secondary to COVID-19, consult with pulmonary medicine appreciated, continue oxygen therapy including BiPAP, Solu-Medrol, Lovenox, bronchodilators and vitamin supplements. Flutter valve every hour while awake. Encourage incentive spirometer usage 2. Sepsis (POA) secondary to COVID-19 pneumonia, with acute hypoxemic respiratory failure, diagnosis was of 11/08/2020, symptoms started December 06 first. Patient is not vaccinated, and since being seen in consultation by pulmonary, he is on dexamethasone transitioned to Solu-Medrol IV 60 mg every 6 hours, Lovenox 40 mg daily, completed course of Baricitinib, continue albuterol inhaler, Symbicort inhaler, prone positioning. Continue O2 via BiPAP or AirVO. 3. Moderate protein calorie malnutrition secondary to poor oral intake. Patient is off TPN, continue regular diet with ensure protein supplements. 4. DVT prophylaxis Lovenox Increased frequency to twice daily. Doppler of lower extremity negative for DVT bilaterally. 5. GI prophylaxis Pepcid no abdominal pain. 6. BPH without LUTs no sign of urinary retention. 7. Proteinuria, unknown cause, 8. Dymetabolic syndrome, monitor for hyperglycemia, A1c 6.4. NovoLog scale before meals and at bedtime. CODE Status: Full code Prognosis: Still guarded.
[2020-12-03 13:02] LABS: Glucose,Whole Blood 209 mg/dL (75-99)
[2020-12-03] MEDS: DICLOFENAC SODIUM GEL 100 GM TUBE TOPICAL SCH ×4 (13:06→21:18)
[2020-12-03 17:52] LABS: Glucose,Whole Blood 157 mg/dL (75-99)
[2020-12-03 20:26] LABS: Glucose,Whole Blood 193 mg/dL (75-99)
[2020-12-03] MEDS: MIRTAZAPINE 15 MG TAB PO SCH (20:53)
[2020-12-03] MEDS: MELATONIN 3 MG TABLET PO SCH (20:53)
[2020-12-03] MEDS ORDERED: DEXTROSE 5% IN WATER 100 ML with AMIODARONE 150 MG IV ONE (21:10)
[2020-12-03] MEDS ORDERED: AMIODARONE 450 MG in DEXTROSE 5% IN WATER 250 ML IV SCH ×2 (21:20)
[2020-12-03] MEDS ORDERED: AMIODARONE 360 MG in DEXTROSE 5% IN WATER 200 ML IV ONE ×2 (21:20)
[2020-12-04] MEDS: AMIODARONE 450 MG in DEXTROSE 5% IN WATER 250 ML IV SCH ×4 (05:00→08:51)
[2020-12-04 05:16] LABS: Basophils # (A) 0.1 k/uL (0-0.2); Basophils % (A) 0 %; Eosinophils # (A) 0.1 k/uL (0-0.7); Eosinophils % (A) 0 %; HCT 46.1 % (39.0-53.0); HGB 15.5 gm/dL (13.0-17.5); Lymphocytes # (A) 0.6 k/uL (1.0-4.8); Lymphocytes % (A) 3 %; MCHC 33.5 g/dL (31.0-37.0); MCV 86.5 fL (80.0-100.0); Mean Platelet Volume 8.4; Monocytes # (A) 0.5 k/uL (0-1.0); Monocytes % (A) 3 %; Neutrophils # (A) 17.4 k/uL (1.3-7.7); Neutrophils % (A) 93 %; Platelet Count 131 k/uL (150-450); RBC 5.33 m/uL (4.30-5.90); RDW 14.1 % (11.5-15.5); WBC 18.7 k/uL (3.8-10.6)
[2020-12-04 05:36] LABS: ALT 283 U/L (4-49); AST 71 U/L (17-59); African American GFR (CKD) >90 (>60 ml/min/1.73 sqM); Albumin 2.9 g/dL (3.5-5.0); Alkaline Phosphatase 82 U/L (38-126); Anion Gap 4 mmol/L; Blood Urea Nitrogen 32 mg/dL (9-20); C Reactive Protein 0.6 mg/dL (<1.0); Calcium 8.9 mg/dL (8.4-10.2); Carbon Dioxide 31 mmol/L (22-30); Chloride 99 mmol/L (98-107); Glucose 153 mg/dL (74-99); LDH 1946 U/L (313-618); Non-African American GFR(CKD) >90 (>60 ml/min/1.73 sqM); Potassium 4.5 mmol/L (3.5-5.1); Sodium 134 mmol/L (137-145); Total Protein 5.3 g/dL (6.3-8.2)
[2020-12-04 07:00] LABS: Glucose,Whole Blood 170 mg/dL (75-99)
[2020-12-04] MEDS: methylPREDNISolone SOD SUCCI 125 MG/2 ML VIAL IV SCH ×3 (07:02→17:31)
[2020-12-04] MEDS: INSULIN ASPART (NovoLOG) 100 UNIT/ML VIAL SQ SCH ×4 (07:02→21:22)
[2020-12-04] MEDS: SYMBICORT 160-4.5 MCG INHALER INHALATION SCH ×2 (07:29→19:47)
[2020-12-04] MEDS: ALBUTEROL HFA INHALER INHALATION SCH (07:29)
--- NOTE | 2020-12-04 08:43 | XR ---
EXAMINATION TYPE: XR chest 1V portable DATE OF EXAM: 12/04/2020 Comparison: 12/02/2020 Clinical History: 60-year-old male covid pneumonia Findings: Heart upper limits of normal in size. Worsening bilateral interstitial and patchy opacities. No pleur al effusion. Left PICC tip at the caval atrial junction. Impression: Worsening bilateral diffuse interstitial and patchy airspace disease.
[2020-12-04] MEDS: ENOXAPARIN 40 MG/0.4 ML SYRINGE SQ SCH (08:52)
[2020-12-04] MEDS: CHOLECALCIFEROL 25 MCG (1000 IU) TABLET PO SCH (08:52)
[2020-12-04] MEDS: ALPRAZolam 0.25 MG TAB PO SCH ×3 (08:52→21:22)
[2020-12-04] MEDS: ASCORBIC ACID 500 MG TAB PO SCH ×2 (08:52→21:22)
[2020-12-04] MEDS: ZINC SULFATE 220 MG CAP PO SCH (08:52)
[2020-12-04] MEDS: FLUTICASONE 50MCG/SPRAY NASAL 16GM EA NOSTRIL SCH (09:28)
[2020-12-04] MEDS: DICLOFENAC SODIUM GEL 100 GM TUBE TOPICAL SCH ×4 (09:28→21:23)
[2020-12-04] MEDS ORDERED: DEXTROSE 5% IN WATER 100 ML with AMIODARONE 150 MG IV ONE (09:51)
--- NOTE | 2020-12-04 09:56 | P.PN ---
Subjective Progress Note Date: 12/04/20 On today's evaluation of 11/26/2020, the patient is being seen for a follow-up. He is a case of COVID-19 related pneumonia with respiratory failure. The patient remains on high flow oxygen at 60 L with an FiO2 of 90%. His current pulse ox is in the order of low to mid 80s. His chest x-rays essentially unchanged with diffuse bilateral pulmonary infiltrates, the film is probably underpenetrated compared to yesterday. No major changes in his respiratory status compared to yesterday. He remains on IV Solu Medrol 60 mg IV every 6 hours is also on Lovenox 40 mg subcu every 24 hours. Inflammatory markers were essentially improving from yesterday and repeat levels from today showed that the LDH level is higher at 1946 and a CRP level is still low at 0.6. Platelet count from today is improved and it's up to 131 and the patient wasn't found of 18.7. He is afebrile. He is hemodynamically stable. He has a normal renal function. He is tolerating diet. D-dimer level is lower at 4.21. Fluid balance over the past 24 hours is been in the order of negative have 170 mL. Otherwise, no other significant events. The patient is resting comfortably in bed. No other activity is minimal as the patient desaturates while talking and bilateral moving. Overnight, the patient went into each a fibrillation with rapid ventricular response. His heart rate was as high as 147, irregular,. I started the patient on amiodarone drip per protocol. His current rate is at 0.5 mg of amiodarone per minute and his heart rate has improved slightly, and is currently back up to 140. Objective - Vital Signs Vital signs: Vital Signs Temp 97.6 F 12/04/20 09:00 Pulse 141 H 12/04/20 09:00 Resp 37 H 12/04/20 09:00 BP 107/89 12/04/20 09:00 Pulse Ox 80 L 12/04/20 09:00 Intake & Output 12/03/20 12/04/20 12/04/20 18:59 06:59 18:59 Intake Total 750 480 84.168 Output Total 800 1200 225 Balance -50 -720 -140.832 Weight 109.1 kg Intake: IV 0 0 20 Sodium Chloride 0.9% 1, 0 0 20 000 ml @ 20 mls/hr IV . Q24H [facility] Rx#:[id number] Intake, IV Titration 64.168 Amount Amiodarone 450 mg In 64.168 Dextrose 5% in Water 250 ml @ 0.5 MG/MIN 16.667 mls/hr IV .Q15H [facility] Rx#: [id number] Oral 750 480 Output: Urine 800 1200 225 Other: Voiding Method Urinal # Voids 0 0 - Exam GENERAL EXAM: Alert, very pleasant, 60-year-old male patient, on AirVo at 60 L and FiO2 of 90% HEAD: Normocephalic/atraumatic. EYES: Normal reaction of pupils, equal size. Conjunctiva pink, sclera white. NOSE: Clear with pink turbinates. THROAT: No erythema or exudates. NECK: No masses, no JVD, no thyroid enlargement, no adenopathy. CHEST: No chest wall deformity. Symmetrical expansion. LUNGS: Equal air entry with crackles in the bilateral posterior bases CVS: Irregular rate and rhythm, normal S1 and S2, no gallops, no murmurs, no rubs ABDOMEN: Soft, nontender. No hepatosplenomegaly, normal bowel sounds, no guarding or rigidity. EXTREMITIES: No clubbing, no edema, no cyanosis, 2+ pulses and upper and lower extremities. MUSCULOSKELETAL: Muscle strength and tone normal. SPINE: No scoliosis or deformity SKIN: No rashes CENTRAL NERVOUS SYSTEM: No focal deficits, tone is normal in all 4 extremities. PSYCHIATRIC: Alert and oriented -3. Appropriate affect. Intact judgment and insight. - Labs CBC & Chem 7: 12/04/20 04:43 12/04/20 04:43 Labs: Abnormal Lab Results - Last 24 Hours (Table) 12/03/20 12/03/20 12/03/20 Range/Units 13:01 17:51 20:24 WBC (3.8-10.6) k/uL Plt Count (150-450) k/uL Neutrophils # (1.3-7.7) k/uL Lymphocytes # (1.0-4.8) k/uL D-Dimer (<0.60) mg/L FEU Sodium (137-145) mmol/L Carbon Dioxide (22-30) mmol/L BUN (9-20) mg/dL Glucose (74-99) mg/dL POC Glucose (mg/dL) 209 H 157 H 193 H (75-99) mg/dL AST (17-59) U/L ALT (4-49) U/L Lactate Dehydrogenase (313-618) U/L Total Protein (6.3-8.2) g/dL Albumin (3.5-5.0) g/dL 12/04/20 12/04/20 12/04/20 Range/Units 04:43 04:43 04:43 WBC 18.7 H (3.8-10.6) k/uL Plt Count 131 L (150-450) k/uL Neutrophils # 17.4 H (1.3-7.7) k/uL Lymphocytes # 0.6 L (1.0-4.8) k/uL D-Dimer 4.21 H (<0.60) mg/L FEU Sodium 134 L (137-145) mmol/L Carbon Dioxide 31 H (22-30) mmol/L BUN 32 H (9-20) mg/dL Glucose 153 H (74-99) mg/dL POC Glucose (mg/dL) (75-99) mg/dL AST 71 H (17-59) U/L ALT 283 H (4-49) U/L Lactate Dehydrogenase 1946 H (313-618) U/L Total Protein 5.3 L (6.3-8.2) g/dL Albumin 2.9 L (3.5-5.0) g/dL 12/04/20 Range/Units 06:58 WBC (3.8-10.6) k/uL Plt Count (150-450) k/uL Neutrophils # (1.3-7.7) k/uL Lymphocytes # (1.0-4.8) k/uL D-Dimer (<0.60) mg/L FEU Sodium (137-145) mmol/L Carbon Dioxide (22-30) mmol/L BUN (9-20) mg/dL Glucose (74-99) mg/dL POC Glucose (mg/dL) 170 H (75-99) mg/dL AST (17-59) U/L ALT (4-49) U/L Lactate Dehydrogenase (313-618) U/L Total Protein (6.3-8.2) g/dL Albumin (3.5-5.0) g/dL Assessment and Plan Plan: 1 Acute Covid 19 related pneumonia. The patient became symptomatic approximately 8 days prior to arrival. Presented with worsening shortness of breath and bilateral pneumonia. Patient is not vaccinated. The patient had not received any outpatient treatments for Covid 19 infection. Diagnosis established during this current admission. Started on Bariticinib on 11/15/2020 in view of worsening hypoxic respiratory failure. Patient was outside the window for Remdesivir, no major improvement in the patient's pulmonary findings and the patient's. The mid 80s and the patient remains on high flow oxygen at 60 L weren't FiO2 of 90% addition to 100% nonrebreather facemask. 2 Acute hypoxic respiratory failure which has significantly progressed since admission, and patient is currently on Airvo at 60 L and FiO2 of 90%. He was transferred to the intensive care unit on 11/22/2020 3 Obesity with a BMI of 36. 4 Increased inflammatory markers related to acute COVID-19 pneumonia 5 Increased d-dimer, related to viral pneumonia, , Dopplers of the lower e xtremity negative, CT angiogram ruled out pulmonary embolism 6 new onset atrial fibrillation with rapid ventricular response, currently on amiodarone at 0.5 mg per minute. The patient's heart rate continues to be quite elevated. Plan: Plan Check and symmetrical markings showed some rise in the LDH level. CRP level is normal. The patient started developing atrial fibrillation with rapid ventricular response. Based on that, he is on amiodarone maintenance of 0.5 mg per minute. His blood pressure is soft and would avoid beta blockers or long-acting estrogen blockers at this point in time. Meanwhile, we'll stop the Lovenox injections and will put the patient on Eliquis 5 mg by mouth twice a day. Continue IV solumedrol 60 mg q 6 IVF KVO Zinc sulfate and vitamin C and vitamin D supplements Monitor oxygenation Obtain a 2-D echocardiogram Stop the albuterol nebulized treatments or HFA We'll continue to follow. Condition is critical. The patient continues to be on high flow of oxygen at 60 L weren't FiO2 of 90%. Chest x-ray shows no major improvement compared to yesterday. His current pulse ox is ranging between 88-92%. No significant improvement since yesterday. SUGGEST keeping the patient in ICU for another 24 hours for close monitoring. Critical care evaluation , 30 min Time with Patient: Greater than 30
[2020-12-04 11:32] LABS: Glucose,Whole Blood 144 mg/dL (75-99)
[2020-12-04] MEDS: ACETAMINOPHEN TAB 325 MG TAB PO PRN ×2 (11:51→21:23)
--- NOTE | 2020-12-04 13:54 | P.PN ---
Subjective Progress Note Date: 12/04/20 HISTORY OF PRESENT ILLNESS This is a pleasant 60-year-old gentleman patient of Dr. Ridge Christina. He doesn't see a physician often and does not note any medical diseases, except for obesity. He comes seen secondary to fever and chills, cough, starting December 06 first, along with muscle aches, lack of appetite and diarrhea. he was tested for call bid November 08, which required at week of reporting, subsequently was sent to emergency room secondary to worsening symptoms, including dyspnea on exertion, shortness of breath and worsening cough without hemoptysis. Fever, sh ortness of breath lingers, no treatment given to him prior to this admission. The is vaccinated, but the patient is not. He does not believe in vaccines at that time. He comes in the emergency room, with hypoxemia, with very minimal conversational dyspnea, chest x-ray, shows pulmonary infiltrate consistent with Covid pneumonia, oxygen currently is at 6 L nasal cannula, d-dimer was 0.6, LFTs are minimally elevated, 64 AST, lactic acid 2.0 sodium 132, creatinine of 0.9, glucose of 122, LDH of 888, CRP of 5.7. Urine protein noted, without hematuria or proteinuria. Covid was again retested 11/14, PCR is positive. Consult to Dr. Eduardo and pulmonary,, 11/16: Patient is currently on oxygen at 6 L nasal cannula increased to 7 L with humidified oxygen. Patient seen and followed by pulmonary medicine and has been started on Bariticinib, Decadron 6 mg daily, and prophylactic dose of Lovenox. He is reaching 1750 on incentive spirometry. Patient did have episode of diarrhea yesterday, none today and complains of decreased appetite. Patient complains of nasal congestion and Flonase added. 11/17: Patient had difficulty with oxygenation during the night and this morning transitioned to Airfo and partial nonrebreather. Pulse ox is currently running 90-92%, patient is prone. He has been afebrile, heart rate 88, blood pressure 104/63. Repeat d-dimer is elevated at 0.93. Blood sugar 167. C-reactive protein increased to 5.3. AST is 83 and ALT 51. Blood culture remains with no growth after 48 hours. Repeat chest x-ray reveals mild cardiomegaly with bilateral multifocal opacities consistent with Covid 19 infection. No significant change from most recent x-ray. Albuterol inhaler and Symbicort inhaler added. 11/18: Patient is currently on AirVo and nonrebreather with pulse ox of 93%. He's been afebrile, heart rate 85, blood pressure 103/68. Blood culture no growth at 72 hours 2 specimens. Plan to continue proning. Repeat laboratory studies ordered for tomorrow including inflammatory markers. The patient is having difficulty sleeping and melatonin added. Lovenox increased to twice daily dosing. 11/19: Patient remains in isolation. He is on AirVO plus nonrebreather with pulse ox of 93%. He has been afebrile, heart rate 85, blood pressure 122/69. Patient is found sitting in recliner and encouraged to prone when he is able to. Repeat blood work reveals WBC 12, hemoglobin 14.8, platelet count 282. D-dimer is 1.38. Other blood work is pending. Patient is continued on Decadron, vitamin supplements, Lovenox. He is on day #07/20 of Baricitinib. 11/20: Patient has been afebrile, heart rate 71, blood pressure 107/71, pulse ox 88-93% on AirVo plus nonrebreather. Patient seems to be depressed and frustrated with coarse. Noted that he started on Xanax yesterday by pulmonary. We will add and Remeron 7.5 mg at bedtime. Hemoglobin A1c came back at 6.4. Patient is encouraged to use incentive spirometry, increase activity, prone. Discussed CODE STATUS with patient and he wishes to be a full code. 11/21: Patient will pulse ox of 83% as he was on Airvo only and once nonrebreather was placed she went up to 89%. Patient is not eating much. He has been encouraged to take protein supplement, increase activity and prone but patient does not seem motivated. He was started on Remeron last night which will hopefully help with his mood and appetite. He has continued on Lovenox, dexamethasone, Baricitinib #09/19 repeat blood work reveals WBC 14.3. D-dimer increasing to 3.2. Electrolytes normal, creatinine 0.76. LDH is high at 1476, C-reactive protein stable 6.6. 11/22: Patient continues to be on airflow and nonrebreather and with minimal movement, pulse ox drops down to 82%, otherwise patient is maintaining 92-94%. One dose of IV Lasix ordered for today. Temperature max yesterday afternoon was 101.2. Heart rate in the 70s and 80s. Blood pressure 110/59. Urinalysis was negative for infection. Repeat blood work will be ordered for tomorrow. 11/23: Patient Was moved into ICU overnight. He has been on BiPAP through the night and pulse oxing 95% recently on his side, currently sitting on the edge of the bed pulse oxing 90%, with talking he drops to 83%. He is scheduled for PICC line insertion and plan to start TPN today. Patient has been afebrile, heart rate in the 60s, respiratory rate 28. WBC 12.0, hemoglobin 15, platelet count 351. Lymphocytes 11.1. D-dimer 2.46. Sodium 136, otherwise electrolytes are normal. BUN 30 creatinine 0.7. Blood sugar 128. Magnesium 2.5. Phosphorus 5.5. LDH 1691. C-reactive protein 13.4. Total protein 5.6. Blood cultures remain with no growth. Repeat chest x-ray this morning reveals stable diffuse bilateral infiltrates. Patient is on Baricitinib 10/20. Pulmonary has increased frequency of dexamethasone to twice daily and changed to IV6 mg IV twice daily. 11/24: Patient remain in the ICU, still on BiPAP with pulse ox is improving at this point. Continue dexamethasone and Baricitinib 11/20, patient had full meal this morning his TPN will be suspended after today. Patient will remain in the ICU at least for the next 48 hours. 11/25: Remain in the ICU still on BiPAP but his pulse ox is slightly bit better he still on dexamethasone and Baricitinib 12/20 seems to do slightly but better was agreed by intensive care studies TPN, patient oral intake is slightly but better and had slight improvement compared to yesterday. Surprisingly his marker went up slightly bit specially his LDH up to 2086 with C-reactive protein 3.6 kidney function remained good white blood cell climb up to 15.1 specially been on steroid. Chest x-ray still shows diffuse bilateral interstitial infiltrate and patchy opacification persistent but there is a slight improvement in the variation in the left lower lobe compared to few days earlier. 11/26: Patient remain on BiPAP with 100% oxygen to keep his pulse ox around 92 percentile, his d-dimer continue to be quite bit elevated today is having Doppler of the lower extremity but notes CT at this point. Remain on Symbicort, and albuterol HFA, his white blood cell is down 17,000, blood sugars better control. Chest x-ray still showed patchy infiltrate throughout both lung felix persistent didn't change. Patient had mild anxiety with no pain currently. 11/27: Patient remains in the intensive care unit. He is placed on airflow for eating and pulse ox drops to the 7083 percent range. Pulse ox 90-93% on100% BiPAP. He is afebrile, heart rate in the 70s, respiratory rate 27 and 32, blood pressure 102/71. WBC 21.5, lymphocytes 0.6. D-dimer 7.29. Blood sugars running between 111 and 171. Ferritin level [id number]. ALT 54, alkaline phosphatase 152. CK 27, C-reactive protein 2.9. Repeat chest x-ray reveals borderline cardiomegaly with prominent pulmonary vascular markings. Diffuse increased lung markings are present. Correlate for heart failure. Atypical pneumonia should be considered. Lower extremity ultrasound negative for DVT bilaterally. 11/28: Patient remains in the intensive care unit and found sitting in a chair at the bedside. He is continued on BiPAP and switched over to Arava and nonrebreather for meals. Repeat chest x-ray essentially unchanged. Repeat blood work reveals WBC 20.4, hemoglobin 14.8, platelet count 130. Sodium 134, potassium 4.8, creatinine 0.62. LDH 2934. C-reactive protein 3.3, d-dimer 10.2. CT angiogram of the chest has been ordered by pulmonary medicine which revealed slightly suboptimal study without evidence of acute pulmonary embolism. Mild cardiomegaly with bilateral cities and multifocal organizing consolidations consistent with Covid19 infection. Lovenox has been changed to 40 mg daily and dexamethasone changed to Solu-Medrol 60 mg every 6 hours. Taco michelle has completed course of Baricitinib. 11/29: Patient remains in the intensive care unit, patient is utilizing BiPAP and also Airvo with nonrebreather mask added at times as he tolerates. His ox ygenation seems to be improving at 89-93%. Respiratory rate 24, heart rate 88, blood pressure 107/58. Patient does verbalize that he is feeling somewhat better today. WBC 16.4, hemoglobin 15.1, platelet count 120. D-dimer 13.49, C- reactive protein 2, LDH 2086, CK 47. Repeat chest x-ray reveals correlate for pneumonia, edema or pulmonary hemorrhage, there is cardiomegaly. Patient is currently continued on Lovenox, Solu-Medrol, bronchodilators and vitamin supplements. 11/30: Patient remains in intensive care unit, he sitting in a chair at the bedside. He is feeling a little bit better and breath sounds are sounding a little better from yesterday. He is currently on AirVO. Pulse ox is running 84-87%, he has been afebrile, heart rate in the 80s and 90s, respiratory rate in the 20s, blood pressure 110/67. Repeat blood work reveals WBC 19.4, platelet count 126. D-dimer 10.2, LDH 2157, CK 78, C-reactive protein 1.5. Sodium 135, BUN 44 creatinine 0.73. Patient is continued on Lovenox, IV Solu-Medrol, bronchodilators and supplements. 12/01: Patient remains in ICU, he is currently sitting in chair at the bedside. Patient continues to state that he feels a bit better breath sounds are sounding better compared to yesterday. He is currently on airflow. His pulse ox is running 87-89%, he is still short of breath with conversation. Patient has been afebrile, heart rate 72, respirations 28, blood pressure 109/61. WBC 16.0, hemoglobin 15.1, platelets 112, potassium 4.6, BUN 39, creatinine 0.84. Patient is continued on Lovenox, IV Solu-Medrol, bronchodilators and supplements. 12/02: Patient remains in ICU, he is currently sitting up in a chair at the bedside. Patient continues to have shortness of breath with activity and conversation. His chest x-ray unchanged to prior studies. D-dimer 5.96. Incentive spirometer is at the bedside however encouragement to utilize if needed. Patient has been afebrile, heart rate 85, respirations 28, blood pressure 138/86 pulse ox is 85-89% on Airvo. 12/03, patient remains ICU, he seems to be gradually improving, intending around for the better, has improvement on shortness of breath with conversation, nothing supple she did today for dyspnea, however with movement, he does have shortness of breath while in bed turning around. Patient has an airflow at 65 L, pulse ox 90%. No new fevers, no melena and hematochezia, nutrition is appropriate, and is getting better. 12/04: Patient remains in the intensive care unit. He is onAirVo with nonrebreather mask on standby. He did have a rise in his heart rate up to the 140s, atrial fibrillation with RVR and pulmonary has started the patient on amiodarone drip. He has been afebrile, respiratory rate 28, pulse ox 94-97%. WBC 18.7, hemoglobin 15.5, platelet count 131. Sodium 134, potassium 4.5, chloride 99, CO2 31, BUN 32 and creatinine 0.72. Blood sugars are running between 144 and 193. AST 71, ALT 283, alkaline phosphatase 82. LDH 1946, C- reactive protein 0.6. D-dimer 4.21. Repeat chest x-ray reveals worsening bilateral diffuse interstitial and patchy airspace disease. REVIEW OF SYSTEMS Constitutional: No fever, no chills, no night sweats. No weight change. Reports weakness, reports fatigue no lethargy. Reports daytime sleepiness. EENT: No headache. No blurred vision or double vision, no loss of vision. No dizziness. No nasal drainage or congestion. No epistaxis. No sore throat. Lungs Reported shortness of breath, reported cough, no sputum production. No wheezing. Dyspnea with minimal exertion. dyspnea at rest. Cardiovascular: No chest pain, no lower extremity edema. No palpitations. No paroxysmal nocturnal dyspnea. No orthopnea. No lightheadedness or dizziness. No syncopal episodes. Abdominal: No abdominal pain. No nausea, vomiting. Reports diarrhea. No constipation. No bloody or tarry stools. Reports loss of appetite. Genitourinary: No dysuria, no increased frequency, no urgency. No urinary retention. Musculoskeletal: No myalgias. Generalized muscle weakness, no gait dysfunction, no frequent falls. No back pain. No neck pain. Integumentary: No wounds, no lesions. No rash or pruritus. No unusual bruising. Neurologic: No aphasia. No facial droop. No change in mentation. No head injury. No headache. No paresthesia. Psychiatric: No depression. No anxiety. No mood swings. Insomnia. Reports difficulty sleeping. Endocrine: Noted abnormal blood sugars. PHYSICAL EXAMINATION Gen: This is a 60-year-old obese male sitting in a chair in the ICU room. He is resting in recliner with Airvo in place and appears to be fairly comfortable, dyspnea with talking. HEENT: Head is atraumatic, normocephalic. Pupils equal, round. Sclerae is anicteric. NECK: Supple. No JVD. No lymphadenopathy. No thyromegaly. LUNGS: Diminished breath sounds. No wheezes or rhonchi. Mild accessory muscle usage. HEART: Regular rate and rhythm. No murmur. ABDOMEN: obese. Soft. Bowel sounds are present. No masses. No tenderness. EXTREMITIES: No pedal edema. No calf tenderness. NEUROLOGICAL: Patient is awake, alert and oriented x3. Cranial nerves 2 through 12 are grossly intact. ASSESSMENT AND PLAN 1. Acute respiratory failure: Secondary to COVID-19, consult with pulmonary medicine appreciated, continue oxygen therapy including BiPAP, Solu-Medrol, Lovenox, bronchodilators and vitamin supplements 2. Sepsis (POA) secondary to COVID-19 pneumonia, with acute hypoxemic respiratory failure, diagnosis was of 11/08/2020, symptoms started December 06 first. Patient is not vaccinated, and since being seen in consultation by pulmonary, he is on dexamethasone transitioned to Solu-Medrol IV 60 mg every 6 hours, Lovenox 40 mg daily, completed course of Baricitinib, continue albuterol inhaler, Symbicort inhaler, prone positioning. Continue O2 via BiPAP or AirVO. 3. Moderate protein calorie malnutrition secondary to poor oral intake. Patient is off TPN, continue regular diet with ensure protein supplements. 4. DVT prophylaxis Lovenox Increased frequency to twice daily. Doppler of lower extremity negative for DVT bilaterally. 5. GI prophylaxis Pepcid no abdominal pain. 6. BPH without LUTs no sign of urinary retention. 7. Proteinuria, unknown cause, 8. Dymetabolic syndrome, monitor for hyperglycemia, A1c 6.4. NovoLog scale before meals and at bedtime. 9. New-onset atrial fibrillation with RVR, paroxysmal atrial fibrillation. Patient started on amiodarone drip. 10. Thrombocytopenia secondary to sepsis. Continue to monitor. CODE Status: Full code Prognosis: Still guarded. Impression and plan of care have been directed as dictated by the signing physician. Sanam Valentine nurse practitioner acting as scribe for signing physician. Objective - Vital Signs Vital signs: Vital Signs Temp 97.6 F 12/04/20 09:00 Pulse 138 H 12/04/20 10:00 Resp 28 H 12/04/20 10:00 BP 101/87 12/04/20 10:00 Pulse Ox 84 L 12/04/20 10:00 Intake & Output 12/03/20 12/04/20 12/04/20 18:59 06:59 18:59 Intake Total 750 480 84.168 Output Total 800 1200 225 Balance -50 -720 -140.832 Weight 109.1 kg Intake: IV 0 0 20 Sodium Chloride 0.9% 1, 0 0 20 000 ml @ 20 mls/hr IV . Q24H HIRAM Rx#:[id number] Intake, IV Titration 64.168 Amount Amiodarone 450 mg In 64.168 Dextrose 5% in Water 250 ml @ 0.5 MG/MIN 16.667 mls/hr IV .Q15H HIRAM Rx#: [id number] Oral 750 480 Output: Urine 800 1200 225 Other: Voiding Method Urinal # Voids 0 0 - Labs CBC & Chem 7: 12/04/20 04:43 12/04/20 04:43 Labs: Abnormal Lab Results - Last 24 Hours (Table) 12/03/20 12/03/20 12/03/20 Range/Units 13:01 17:51 20:24 WBC (3.8-10.6) k/uL Plt Count (150-450) k/uL Neutrophils # (1.3-7.7) k/uL Lymphocytes # (1.0-4.8) k/uL D-Dimer (<0.60) mg/L FEU Sodium (137-145) mmol/L Carbon Dioxide (22-30) mmol/L BUN (9-20) mg/dL Glucose (74-99) mg/dL POC Glucose (mg/dL) 209 H 157 H 193 H (75-99) mg/dL AST (17-59) U/L ALT (4-49) U/L Lactate Dehydrogenase (313-618) U/L Total Protein (6.3-8.2) g/dL Albumin (3.5-5.0) g/dL 12/04/20 12/04/20 12/04/20 Range/Units 04:43 04:43 04:43 WBC 18.7 H (3.8-10.6) k/uL Plt Count 131 L (150-450) k/uL Neutrophils # 17.4 H (1.3-7.7) k/uL Lymphocytes # 0.6 L (1.0-4.8) k/uL D-Dimer 4.21 H (<0.60) mg/L FEU Sodium 134 L (137-145) mmol/L Carbon Dioxide 31 H (22-30) mmol/L BUN 32 H (9-20) mg/dL Glucose 153 H (74-99) mg/dL POC Glucose (mg/dL) (75-99) mg/dL AST 71 H (17-59) U/L ALT 283 H (4-49) U/L Lactate Dehydrogenase 1946 H (313-618) U/L Total Protein 5.3 L (6.3-8.2) g/dL Albumin 2.9 L (3.5-5.0) g/dL 12/04/20 Range/Units 06:58 WBC (3.8-10.6) k/uL Plt Count (150-450) k/uL Neutrophils # (1.3-7.7) k/uL Lymphocytes # (1.0-4.8) k/uL D-Dimer (<0.60) mg/L FEU Sodium (137-145) mmol/L Carbon Dioxide (22-30) mmol/L BUN (9-20) mg/dL Glucose (74-99) mg/dL POC Glucose (mg/dL) 170 H (75-99) mg/dL AST (17-59) U/L ALT (4-49) U/L Lactate Dehydrogenase (313-618) U/L Total Protein (6.3-8.2) g/dL Albumin (3.5-5.0) g/dL
[2020-12-04 17:11] LABS: Glucose,Whole Blood 178 mg/dL (75-99)
[2020-12-04] MEDS: ALBUTEROL HFA INHALER INHALATION PRN (19:59)
[2020-12-04 21:15] LABS: Glucose,Whole Blood 133 mg/dL (75-99)
[2020-12-04] MEDS: APIXABAN 5 MG TAB PO SCH (21:22)
[2020-12-04] MEDS: MELATONIN 3 MG TABLET PO SCH (21:22)
[2020-12-04] MEDS: MIRTAZAPINE 15 MG TAB PO SCH (21:23)
[2020-12-05] MEDS: methylPREDNISolone SOD SUCCI 125 MG/2 ML VIAL IV SCH ×2 (00:52→06:57)
[2020-12-05 06:19] LABS: Basophils # (A) 0.2 k/uL (0-0.2); Basophils % (A) 1 %; Eosinophils # (A) 0.3 k/uL (0-0.7); Eosinophils % (A) 1 %; HCT 46.7 % (39.0-53.0); HGB 15.2 gm/dL (13.0-17.5); Lymphocytes # (A) 0.5 k/uL (1.0-4.8); Lymphocytes % (A) 3 %; MCHC 32.6 g/dL (31.0-37.0); MCV 88.9 fL (80.0-100.0); Mean Platelet Volume 8.2; Monocytes # (A) 0.5 k/uL (0-1.0); Monocytes % (A) 3 %; Neutrophils # (A) 18.9 k/uL (1.3-7.7); Neutrophils % (A) 92 %; Platelet Count 109 k/uL (150-450); RBC 5.25 m/uL (4.30-5.90); RDW 13.7 % (11.5-15.5); WBC 20.4 k/uL (3.8-10.6)
[2020-12-05 06:28] LABS: African American GFR (CKD) >90 (>60 ml/min/1.73 sqM); Anion Gap 2 mmol/L; Blood Urea Nitrogen 46 mg/dL (9-20); Calcium 8.9 mg/dL (8.4-10.2); Carbon Dioxide 33 mmol/L (22-30); Chloride 100 mmol/L (98-107); Glucose 153 mg/dL (74-99); LDH 1616 U/L (313-618); Non-African American GFR(CKD) >90 (>60 ml/min/1.73 sqM); Potassium 4.9 mmol/L (3.5-5.1); Sodium 135 mmol/L (137-145)
[2020-12-05 06:46] LABS: Glucose,Whole Blood 144 mg/dL (75-99)
[2020-12-05] MEDS: INSULIN ASPART (NovoLOG) 100 UNIT/ML VIAL SQ SCH ×4 (06:57→20:45)
--- NOTE | 2020-12-05 07:10 | XR ---
EXAMINATION TYPE: XR chest 1V portable DATE OF EXAM: 12/05/2020 HISTORY: Shortness of breath. COMPARISON: 12/04/2020 TECHNIQUE: Single view of the chest is submitted. FINDINGS: Demonstrated are scattered senescent parenchymal change. Patchy infiltrates throughout both lung felix persists although there is interval improvement. [place] nued follow-up advised. The heart is stable. Hilar and mediastinal structures are within normal limits. Degenerative changes are seen of the dorsal spine. IMPRESSION: 1. Patchy infiltrates throughout both lung felix persists although there is interval improvement. C ontinued follow-up advised.
[2020-12-05] MEDS: SYMBICORT 160-4.5 MCG INHALER INHALATION SCH ×2 (08:47→20:32)
[2020-12-05] MEDS: APIXABAN 5 MG TAB PO SCH ×2 (08:48→20:51)
[2020-12-05] MEDS: ZINC SULFATE 220 MG CAP PO SCH (08:49)
[2020-12-05] MEDS: CHOLECALCIFEROL 25 MCG (1000 IU) TABLET PO SCH (08:49)
[2020-12-05] MEDS: DICLOFENAC SODIUM GEL 100 GM TUBE TOPICAL SCH ×4 (08:49→20:45)
[2020-12-05] MEDS: ASCORBIC ACID 500 MG TAB PO SCH ×2 (08:49→20:44)
[2020-12-05] MEDS: ALPRAZolam 0.25 MG TAB PO SCH ×3 (08:49→20:44)
[2020-12-05] MEDS: predniSONE 20 MG TAB PO SCH (09:00)
--- NOTE | 2020-12-05 09:00 | P.PN ---
Subjective Progress Note Date: 12/05/20 12/05/2020, the patient is being seen for a follow-up. In terms of his COVID-19 related pneumonia, the patient continues to have diffuse bilateral pulmonary infiltrates in his oxygenation is still unchanged compared to yesterday. There has been some minor drop in FiO2 which is currently down to 75%. The flow through the high flow oxygen system is at extremely liters. His current pulse ox in the order of 90%. His sister status is stable. His breathing is nonlabored at rest. He remains on IV Solu-Medrol. He may be considered for oral prednisone. Meanwhile, inflammatory markers from today shows a drop in the LDH to 1616. CRP still pending for now. His d-dimer from yesterday was at 1.2 1. He did encounter atrial fibrillation with rapid ventricular response. He was given amiodarone bolus which subsequently converted him into a normal sinus rhythm. He is currently off the amiodarone. His cardiac rhythm is sinus. Echocardiogram was ordered yesterday and the results are still pending for now. Meanwhile, we'll put the patient on anticoagulation and the patient is currently onEliquis 5 mg by mouth twice a day. He is not showing any signs of bleeding. No chest pain. Cardiac rhythm is sinus. His white cell count is at 20. Hemoglobin currently is at 15.2. Platelet counts are also stable at 109. Blood sugars are slightly elevated at 153. Objective - Vital Signs Vital signs: Vital Signs Temp 98.1 F 12/05/20 04:00 Pulse 85 12/05/20 07:00 Resp 22 12/05/20 07:00 BP 122/81 12/05/20 07:00 Pulse Ox 87 L 12/05/20 07:00 Intake & Output 12/04/20 12/05/20 12/05/20 18:59 06:59 18:59 Intake Total 84.168 480 Output Total 900 700 Balance -815.832 -220 Weight 108.3 kg Intake: IV 20 Sodium Chloride 0.9% 1, 20 000 ml @ 20 mls/hr IV . Q24H HIRAM Rx#:[id number] Intake, IV Titration 64.168 Amount Amiodarone 450 mg In 64.168 Dextrose 5% in Water 250 ml @ 0.5 MG/MIN 16.667 mls/hr IV .Q15H HIRAM Rx#: [id number] Oral 480 Output: Urine 900 700 Other: Voiding Method Urinal # Voids 0 1 0 # Bowel Movements 1 - Exam GENERAL EXAM: Alert, very pleasant, 60-year-old male patient, on AirVo at 60 L and FiO2 of 75% HEAD: Normocephalic/atraumatic. EYES: Normal reaction of pupils, equal size. Conjunctiva pink, sclera white. NOSE: Clear with pink turbinates. THROAT: No erythema or exudates. NECK: No masses, no JVD, no thyroid enlargement, no adenopathy. CHEST: No chest wall deformity. Symmetrical expansion. LUNGS: Equal air entry with crackles in the bilateral posterior bases CVS: regular rate and rhythm, normal S1 and S2, no gallops, no murmurs, no rubs ABDOMEN: Soft, nontender. No hepatosplenomegaly, normal bowel sounds, no guarding or rigidity. EXTREMITIES: No clubbing, no edema, no cyanosis, 2+ pulses and upper and lower extremities. MUSCULOSKELETAL: Muscle strength and tone normal. SPINE: No scoliosis or deformity SKIN: No rashes CENTRAL NERVOUS SYSTEM: No focal deficits, tone is normal in all 4 extremities. PSYCHIATRIC: Alert and oriented -3. Appropriate affect. Intact judgment and insight. - Labs CBC & Chem 7: 12/05/20 06:00 12/05/20 06:00 Labs: Abnormal Lab Results - Last 24 Hours (Table) 12/04/20 12/04/20 12/04/20 Range/Units 11:31 17:09 21:14 WBC (3.8-10.6) k/uL Plt Count (150-450) k/uL Neutrophils # (1.3-7.7) k/uL Lymphocytes # (1.0-4.8) k/uL Sodium (137-145) mmol/L Carbon Dioxide (22-30) mmol/L BUN (9-20) mg/dL Glucose (74-99) mg/dL POC Glucose (mg/dL) 144 H 178 H 133 H (75-99) mg/dL Lactate Dehydrogenase (313-618) U/L 12/05/20 12/05/20 12/05/20 Range/Units 06:00 06:00 06:45 WBC 20.4 H (3.8-10.6) k/uL Plt Count 109 L (150-450) k/uL Neutrophils # 18.9 H (1.3-7.7) k/uL Lymphocytes # 0.5 L (1.0-4.8) k/uL Sodium 135 L (137-145) mmol/L Carbon Dioxide 33 H (22-30) mmol/L BUN 46 H (9-20) mg/dL Glucose 153 H (74-99) mg/dL POC Glucose (mg/dL) 144 H (75-99) mg/dL Lactate Dehydrogenase 1616 H (313-618) U/L Assessment and Plan Plan: 1 Acute Covid 19 related pneumonia. The patient became symptomatic approxim ately 8 days prior to arrival. Presented with worsening shortness of breath and bilateral pneumonia. Patient is not vaccinated. The patient had not received any outpatient treatments for Covid 19 infection. Diagnosis established during this current admission. Started on Bariticinib on 11/15/2020 in view of worsening hypoxic respiratory failure. Patient was outside the window for Remdesivir, no major improvement in the patient's pulmonary findings and the patient's. The mid 80s and the patient remains on high flow oxygen at 60 L weren't FiO2 of 75% addition to 100% nonrebreather facemask.chest x-ray shows no acute abnormalities. He is on IV Medrol which will be switched to prednisone t vera. 2 Acute hypoxic respiratory failure which has significantly progressed since admission, and patient is currently on Airvo at 60 L and FiO2 of 75 %. He was transferred to the intensive care unit on 11/22/2020 3 Obesity with a BMI of 36. 4 Increased inflammatory markers related to acute COVID-19 pneumonia 5 Increased d-dimer, related to viral pneumonia, , Dopplers of the lower extre mity negative, CT angiogram ruled out pulmonary embolism 6 new onset atrial fibrillation with rapid ventricular response, treated with amiodarone and subsequently converted back to normal sinus rhythm. Currently off amiodarone. He is on Eliquis 5 mg by mouth twice a day. Plan: Plan Continue our efforts to drop that down the FiO2 Discontinue the amiodarone Discontinue IV Solu-Medrol and start the patient prednisone 40 mg by mouth daily Continue Eliquis 5 mg by mouth twice a day Echocardiogram was ordered IVF KVO Zinc sulfate and vitamin C and vitamin D supplements Monitor oxygenation We'll continue to follow. Condition is still critical. The patient continues to be on high flow of oxygen at 60 L weren't FiO2 of 75%. Chest x-ray shows no major improvement compared to yesterday. His current pulse ox is ranging between 88-92%. Critical care evaluation , 30 min
[2020-12-05] MEDS: FLUTICASONE 50MCG/SPRAY NASAL 16GM EA NOSTRIL SCH (09:02)
[2020-12-05] MEDS: METOPROLOL TARTRATE 12.5 MG TAB PO SCH ×2 (09:16→20:46)
[2020-12-05 11:13] LABS: Glucose,Whole Blood 231 mg/dL (75-99)
--- NOTE | 2020-12-05 13:33 | P.PN ---
Subjective Progress Note Date: 12/05/20 HISTORY OF PRESENT ILLNESS This is a pleasant 60-year-old gentleman patient of Dr. Ridge Christina. He doesn't see a physician often and does not note any medical diseases, except for obesity. He comes seen secondary to fever and chills, cough, starting December 06 first, along with muscle aches, lack of appetite and diarrhea. he was tested for call bid November 08, which required at week of reporting, subsequently was sent to emergency room secondary to worsening symptoms, including dyspnea on exertion, shortness of breath and worsening cough without hemoptysis. Fever, sh ortness of breath lingers, no treatment given to him prior to this admission. The is vaccinated, but the patient is not. He does not believe in vaccines at that time. He comes in the emergency room, with hypoxemia, with very minimal conversational dyspnea, chest x-ray, shows pulmonary infiltrate consistent with Covid pneumonia, oxygen currently is at 6 L nasal cannula, d-dimer was 0.6, LFTs are minimally elevated, 64 AST, lactic acid 2.0 sodium 132, creatinine of 0.9, glucose of 122, LDH of 888, CRP of 5.7. Urine protein noted, without hematuria or proteinuria. Covid was again retested 11/14, PCR is positive. Consult to Dr. Eduardo and pulmonary,, 11/16: Patient is currently on oxygen at 6 L nasal cannula increased to 7 L with humidified oxygen. Patient seen and followed by pulmonary medicine and has been started on Bariticinib, Decadron 6 mg daily, and prophylactic dose of Lovenox. He is reaching 1750 on incentive spirometry. Patient did have episode of diarrhea yesterday, none today and complains of decreased appetite. Patient complains of nasal congestion and Flonase added. 11/17: Patient had difficulty with oxygenation during the night and this morning transitioned to Airfo and partial nonrebreather. Pulse ox is currently running 90-92%, patient is prone. He has been afebrile, heart rate 88, blood pressure 104/63. Repeat d-dimer is elevated at 0.93. Blood sugar 167. C-reactive protein increased to 5.3. AST is 83 and ALT 51. Blood culture remains with no growth after 48 hours. Repeat chest x-ray reveals mild cardiomegaly with bilateral multifocal opacities consistent with Covid 19 infection. No significant change from most recent x-ray. Albuterol inhaler and Symbicort inhaler added. 11/18: Patient is currently on AirVo and nonrebreather with pulse ox of 93%. He's been afebrile, heart rate 85, blood pressure 103/68. Blood culture no growth at 72 hours 2 specimens. Plan to continue proning. Repeat laboratory studies ordered for tomorrow including inflammatory markers. The patient is having difficulty sleeping and melatonin added. Lovenox increased to twice daily dosing. 11/19: Patient remains in isolation. He is on AirVO plus nonrebreather with pulse ox of 93%. He has been afebrile, heart rate 85, blood pressure 122/69. Patient is found sitting in recliner and encouraged to prone when he is able to. Repeat blood work reveals WBC 12, hemoglobin 14.8, platelet count 282. D-dimer is 1.38. Other blood work is pending. Patient is continued on Decadron, vitamin supplements, Lovenox. He is on day #07/20 of Baricitinib. 11/20: Patient has been afebrile, heart rate 71, blood pressure 107/71, pulse ox 88-93% on AirVo plus nonrebreather. Patient seems to be depressed and frustrated with coarse. Noted that he started on Xanax yesterday by pulmonary. We will add and Remeron 7.5 mg at bedtime. Hemoglobin A1c came back at 6.4. Patient is encouraged to use incentive spirometry, increase activity, prone. Discussed CODE STATUS with patient and he wishes to be a full code. 11/21: Patient will pulse ox of 83% as he was on Airvo only and once nonrebreather was placed she went up to 89%. Patient is not eating much. He has been encouraged to take protein supplement, increase activity and prone but patient does not seem motivated. He was started on Remeron last night which will hopefully help with his mood and appetite. He has continued on Lovenox, dexamethasone, Baricitinib #09/19 repeat blood work reveals WBC 14.3. D-dimer increasing to 3.2. Electrolytes normal, creatinine 0.76. LDH is high at 1476, C-reactive protein stable 6.6. 11/22: Patient continues to be on airflow and nonrebreather and with minimal movement, pulse ox drops down to 82%, otherwise patient is maintaining 92-94%. One dose of IV Lasix ordered for today. Temperature max yesterday afternoon was 101.2. Heart rate in the 70s and 80s. Blood pressure 110/59. Urinalysis was negative for infection. Repeat blood work will be ordered for tomorrow. 11/23: Patient Was moved into ICU overnight. He has been on BiPAP through the night and pulse oxing 95% recently on his side, currently sitting on the edge of the bed pulse oxing 90%, with talking he drops to 83%. He is scheduled for PICC line insertion and plan to start TPN today. Patient has been afebrile, heart rate in the 60s, respiratory rate 28. WBC 12.0, hemoglobin 15, platelet count 351. Lymphocytes 11.1. D-dimer 2.46. Sodium 136, otherwise electrolytes are normal. BUN 30 creatinine 0.7. Blood sugar 128. Magnesium 2.5. Phosphorus 5.5. LDH 1691. C-reactive protein 13.4. Total protein 5.6. Blood cultures remain with no growth. Repeat chest x-ray this morning reveals stable diffuse bilateral infiltrates. Patient is on Baricitinib 10/20. Pulmonary has increased frequency of dexamethasone to twice daily and changed to IV6 mg IV twice daily. 11/24: Patient remain in the ICU, still on BiPAP with pulse ox is improving at this point. Continue dexamethasone and Baricitinib 11/20, patient had full meal this morning his TPN will be suspended after today. Patient will remain in the ICU at least for the next 48 hours. 11/25: Remain in the ICU still on BiPAP but his pulse ox is slightly bit better he still on dexamethasone and Baricitinib 12/20 seems to do slightly but better was agreed by intensive care studies TPN, patient oral intake is slightly but better and had slight improvement compared to yesterday. Surprisingly his marker went up slightly bit specially his LDH up to 2086 with C-reactive protein 3.6 kidney function remained good white blood cell climb up to 15.1 specially been on steroid. Chest x-ray still shows diffuse bilateral interstitial infiltrate and patchy opacification persistent but there is a slight improvement in the variation in the left lower lobe compared to few days earlier. 11/26: Patient remain on BiPAP with 100% oxygen to keep his pulse ox around 92 percentile, his d-dimer continue to be quite bit elevated today is having Doppler of the lower extremity but notes CT at this point. Remain on Symbicort, and albuterol HFA, his white blood cell is down 17,000, blood sugars better control. Chest x-ray still showed patchy infiltrate throughout both lung felix persistent didn't change. Patient had mild anxiety with no pain currently. 11/27: Patient remains in the intensive care unit. He is placed on airflow for eating and pulse ox drops to the 7083 percent range. Pulse ox 90-93% on100% BiPAP. He is afebrile, heart rate in the 70s, respiratory rate 27 and 32, blood pressure 102/71. WBC 21.5, lymphocytes 0.6. D-dimer 7.29. Blood sugars running between 111 and 171. Ferritin level [id number]. ALT 54, alkaline phosphatase 152. CK 27, C-reactive protein 2.9. Repeat chest x-ray reveals borderline cardiomegaly with prominent pulmonary vascular markings. Diffuse increased lung markings are present. Correlate for heart failure. Atypical pneumonia should be considered. Lower extremity ultrasound negative for DVT bilaterally. 11/28: Patient remains in the intensive care unit and found sitting in a chair at the bedside. He is continued on BiPAP and switched over to Arava and nonrebreather for meals. Repeat chest x-ray essentially unchanged. Repeat blood work reveals WBC 20.4, hemoglobin 14.8, platelet count 130. Sodium 134, potassium 4.8, creatinine 0.62. LDH 2934. C-reactive protein 3.3, d-dimer 10.2. CT angiogram of the chest has been ordered by pulmonary medicine which revealed slightly suboptimal study without evidence of acute pulmonary embolism. Mild cardiomegaly with bilateral cities and multifocal organizing consolidations consistent with Covid19 infection. Lovenox has been changed to 40 mg daily and dexamethasone changed to Solu-Medrol 60 mg every 6 hours. Taco michelle has completed course of Baricitinib. 11/29: Patient remains in the intensive care unit, patient is utilizing BiPAP and also Airvo with nonrebreather mask added at times as he tolerates. His ox ygenation seems to be improving at 89-93%. Respiratory rate 24, heart rate 88, blood pressure 107/58. Patient does verbalize that he is feeling somewhat better today. WBC 16.4, hemoglobin 15.1, platelet count 120. D-dimer 13.49, C- reactive protein 2, LDH 2086, CK 47. Repeat chest x-ray reveals correlate for pneumonia, edema or pulmonary hemorrhage, there is cardiomegaly. Patient is currently continued on Lovenox, Solu-Medrol, bronchodilators and vitamin supplements. 11/30: Patient remains in intensive care unit, he sitting in a chair at the bedside. He is feeling a little bit better and breath sounds are sounding a little better from yesterday. He is currently on AirVO. Pulse ox is running 84-87%, he has been afebrile, heart rate in the 80s and 90s, respiratory rate in the 20s, blood pressure 110/67. Repeat blood work reveals WBC 19.4, platelet count 126. D-dimer 10.2, LDH 2157, CK 78, C-reactive protein 1.5. Sodium 135, BUN 44 creatinine 0.73. Patient is continued on Lovenox, IV Solu-Medrol, bronchodilators and supplements. 12/01: Patient remains in ICU, he is currently sitting in chair at the bedside. Patient continues to state that he feels a bit better breath sounds are sounding better compared to yesterday. He is currently on airflow. His pulse ox is running 87-89%, he is still short of breath with conversation. Patient has been afebrile, heart rate 72, respirations 28, blood pressure 109/61. WBC 16.0, hemoglobin 15.1, platelets 112, potassium 4.6, BUN 39, creatinine 0.84. Patient is continued on Lovenox, IV Solu-Medrol, bronchodilators and supplements. 12/02: Patient remains in ICU, he is currently sitting up in a chair at the bedside. Patient continues to have shortness of breath with activity and conversation. His chest x-ray unchanged to prior studies. D-dimer 5.96. Incentive spirometer is at the bedside however encouragement to utilize if needed. Patient has been afebrile, heart rate 85, respirations 28, blood pressure 138/86 pulse ox is 85-89% on Airvo. 12/03, patient remains ICU, he seems to be gradually improving, intending around for the better, has improvement on shortness of breath with conversation, nothing supple she did today for dyspnea, however with movement, he does have shortness of breath while in bed turning around. Patient has an airflow at 65 L, pulse ox 90%. No new fevers, no melena and hematochezia, nutrition is appropriate, and is getting better. 12/04: Patient remains in the intensive care unit. He is onAirVo with nonrebreather mask on standby. He did have a rise in his heart rate up to the 140s, atrial fibrillation with RVR and pulmonary has started the patient on amiodarone drip. He has been afebrile, respiratory rate 28, pulse ox 94-97%. WBC 18.7, hemoglobin 15.5, platelet count 131. Sodium 134, potassium 4.5, chloride 99, CO2 31, BUN 32 and creatinine 0.72. Blood sugars are running between 144 and 193. AST 71, ALT 283, alkaline phosphatase 82. LDH 1946, C- reactive protein 0.6. D-dimer 4.21. Repeat chest x-ray reveals worsening bilateral diffuse interstitial and patchy airspace disease. 12/05: Patient has been taken out of isolation by infection control. He is now on AirVo, FiO2 at 75%. He does have nonrebreather mask on standby but oxygen needs seem to be improving slightly. He seems to be slightly less short of breath. Nephrology has switched him to oral prednisone and off Solu-Medrol. Patient is on eliquis for atrial fibrillation. Heart rate is currently cont rolled and he has been afebrile. Amiodarone has been discontinued, echocardiogram ordered. Pulse ox is 88%, afebrile, blood pressure 111/72 and heart rate in the 80s. junk removal specialist sinus rhythm. Repeat blood work reveals WBC 20.4, hemoglobin 15.2, platelet count 109. Sodium 135, potassium 4.9, chloride 100, CO2 33, BUN 46 and creatinine 0.84. Blood sugars are running between 133 and 231. LDH 1616. REVIEW OF SYSTEMS Constitutional: No fever, no chills, no night sweats. No weight change. Reports weakness, reports fatigue no lethargy. Reports daytime sleepiness. EENT: No headache. No blurred vision or double vision, no loss of vision. No dizziness. No nasal drainage or congestion. No epistaxis. No sore throat. Lungs Reported shortness of breath continues, reported cough, no sputum production. No wheezing. Dyspnea with minimal exertion. dyspnea at rest. Cardiovascular: No chest pain, no lower extremity edema. No palpitations. No paroxysmal nocturnal dyspnea. No orthopnea. No lightheadedness or dizziness. No syncopal episodes. Abdominal: No abdominal pain. No nausea, vomiting. Reports diarrhea. No constipation. No bloody or tarry stools. Reports loss of appetite. Genitourinary: No dysuria, no increased frequency, no urgency. No urinary retention. Musculoskeletal: No myalgias. Generalized muscle weakness, no gait dysfunction, no frequent falls. No back pain. No neck pain. Integumentary: No wounds, no lesions. No rash or pruritus. No unusual bruising. Neurologic: No aphasia. No facial droop. No change in mentation. No head injury. No headache. No paresthesia. Psychiatric: No depression. No anxiety. No mood swings. Insomnia. Reports difficulty sleeping. Endocrine: Noted abnormal blood sugars. PHYSICAL EXAMINATION Gen: This is a 60-year-old obese male sitting up in the ICU room. He is resting in recliner with Airvo in place and appears to be fairly comfortable, dyspnea with talking. HEENT: Head is atraumatic, normocephalic. Pupils equal, round. Sclerae is anicteric. NECK: Supple. No JVD. No lymphadenopathy. No thyromegaly. LUNGS: Diminished breath sounds. No wheezes or rhonchi. Mild accessory muscle usage or. HEART: Regular rate and rhythm. No murmur. ABDOMEN: obese. Soft. Bowel sounds are present. No masses. No tenderness. EXTREMITIES: No pedal edema. No calf tenderness. NEUROLOGICAL: Patient is awake, alert and oriented x3. Cranial nerves 2 through 12 are grossly intact. ASSESSMENT AND PLAN 1. Acute respiratory failure: Secondary to COVID-19, consult with pulmonary medicine appreciated, continue oxygen therapy including BiPAP, prednisone, eliquis, bronchodilators and vitamin supplements 2. Sepsis (POA) secondary to COVID-19 pneumonia, with acute hypoxemic respiratory failure, diagnosis was of 11/08/2020, symptoms started December 06 first. Patient is not vaccinated, and since being seen in consultation by pulmonary, Deyau-Medrol transitioned to oral prednisone, Lovenox 40 mg daily, completed course of Baricitinib, continue albuterol inhaler, Symbicort inhaler, prone positioning. Continue O2 via BiPAP or AirVO. 3. Moderate protein calorie malnutrition secondary to poor oral intake. Patient is off TPN, continue regular diet with ensure protein supplements. 4. DVT prophylaxis Lovenox Increased frequency to twice daily. Doppler of lower extremity negative for DVT bilaterally. 5. GI prophylaxis Pepcid no abdominal pain. 6. BPH without LUTs no sign of urinary retention. 7. Proteinuria, unknown cause, 8. Dymetabolic syndrome, monitor for hyperglycemia, A1c 6.4. NovoLog scale before meals and at bedtime. 9. New-onset atrial fibrillation with RVR, paroxysmal atrial fibrillation. Amiodarone drip discontinued, continue Lopressor 12.5 mg twice daily, eliquis 5 mg twice daily, echocardiogram. 10. Thrombocytopenia secondary to sepsis. CODE Status: Full code Prognosis: Still guarded. Impression and plan of care have been directed as dictated by the signing physician. Sanam Valentine nurse practitioner acting as scribe for signing physician. Objective - Vital Signs Vital signs: Vital Signs Temp 98.1 F 12/05/20 08:00 Pulse 110 H 12/05/20 10:00 Resp 16 12/05/20 10:00 BP 109/75 12/05/20 10:00 Pulse Ox 91 L 12/05/20 10:00 Intake & Output 12/04/20 12/05/20 12/05/20 18:59 06:59 18:59 Intake Total 84.168 480 260 Output Total 900 700 Balance -815.832 -220 260 Weight 108.3 kg Intake: IV 20 60 Sodium Chloride 0.9% 1, 20 60 000 ml @ 20 mls/hr IV . Q24H HIRAM Rx#:[id number] Intake, IV Titration 64.168 Amount Amiodarone 450 mg In 64.168 Dextrose 5% in Water 250 ml @ 0.5 MG/MIN 16.667 mls/hr IV .Q15H HIRAM Rx#: [id number] Oral 480 200 Output: Urine 900 700 Other: Voiding Method Urinal Urinal # Voids 0 1 0 # Bowel Movements 1 - Labs CBC & Chem 7: 12/05/20 06:00 12/05/20 06:00 Labs: Abnormal Lab Results - Last 24 Hours (Table) 12/04/20 12/04/20 12/04/20 Range/Units 11:31 17:09 21:14 WBC (3.8-10.6) k/uL Plt Count (150-450) k/uL Neutrophils # (1.3-7.7) k/uL Lymphocytes # (1.0-4.8) k/uL Sodium (137-145) mmol/L Carbon Dioxide (22-30) mmol/L BUN (9-20) mg/dL Glucose (74-99) mg/dL POC Glucose (mg/dL) 144 H 178 H 133 H (75-99) mg/dL Lactate Dehydrogenase (313-618) U/L 12/05/20 12/05/20 12/05/20 Range/Units 06:00 06:00 06:45 WBC 20.4 H (3.8-10.6) k/uL Plt Count 109 L (150-450) k/uL Neutrophils # 18.9 H (1.3-7.7) k/uL Lymphocytes # 0.5 L (1.0-4.8) k/uL Sodium 135 L (137-145) mmol/L Carbon Dioxide 33 H (22-30) mmol/L BUN 46 H (9-20) mg/dL Glucose 153 H (74-99) mg/dL POC Glucose (mg/dL) 144 H (75-99) mg/dL Lactate Dehydrogenase 1616 H (313-618) U/L
--- NOTE | 2020-12-05 13:55 | ECHOF ---
Referral Reason:neha Salvador fib MEASUREMENTS -------- HEIGHT: 172.7 cm WEIGHT: 108.0 kg BP: 122/81 RVIDd: 2.7 cm (< 3.3) IVSd: 1.5 cm (0.6 - 1.1) LVIDd: 4.1 cm (3.9 - 5.3) LVPWd: 1.4 cm (0.6 - 1.1) IVSs: 1.9 cm LVIDs: 2.9 cm LVPWs: 1.8 cm LA Diam: 3.9 cm (2.7 - 3.8) LAESV Index (A-L): 22.15 ml/m Ao Diam: 3.7 cm (2.0 - 3.7) AV Cusp: 2.4 cm (1.5 - 2.6) MV EXCURSION: 18.221 mm (> 18.000) MV EF SLOPE: 74 mm/s (70 - 150) EPSS: 0.6 cm MV E González: 0.61 m/s MV DecT: 273 ms MV A González: 1.04 m/s MV E/A Ratio: 0.59 FINDINGS -------- Sinus rhythm. This was a technically difficult study with suboptimal apical views. The left ventricular size is normal. There is moderate concentric left ventricular hypertrophy. O verall left ventricular systolic function is low-normal with, an EF between 50 - 55 %. The right ventricle is normal in size. Normal LA size by volume 22+/-6 ml/m2. The right atrium is normal in size. 5 ml of Lumason was utilized for enhancement of images. The aortic valve is trileaflet, and appears structurally normal. No aortic stenosis or regurgitation. Mild mitral annular calcification present. The tricuspid valve appears structurally normal. Unable to estimate RVSP due to inadequate TR jet s pectral doppler profile. There is no pulmonic regurgitation present. The aortic root size is normal. IVC Not well visulized. There is no pericardial effusion. CONCLUSIONS -------- 1. The left ventricular size is normal. 2. There is moderate concentric left ventricular hypertrophy. 3. Overall left ventricular systolic function is low-normal with, an EF between 50 - 55 %. 4. 5 ml of Lumason was utilized for enhancement of images. 5. The aortic valve is trileaflet, and appears structurally normal. No aortic stenosis or regurgitati on. 6. Mild mitral annular calcification present. 7. The tricuspid valve appears structurally normal. 8. Unable to estimate RVSP due to inadequate TR jet spectral doppler profile. 9. There is no pericardial effusion. SOCIAL SERVICES DIRECTOR: Gloria Warren RDCS
[2020-12-05 17:00] LABS: Glucose,Whole Blood 131 mg/dL (75-99)
[2020-12-05] MEDS: ALBUTEROL HFA INHALER INHALATION PRN (20:32)
[2020-12-05 20:34] LABS: Glucose,Whole Blood 152 mg/dL (75-99)
[2020-12-05] MEDS: MELATONIN 3 MG TABLET PO SCH (20:44)
[2020-12-05] MEDS: ACETAMINOPHEN TAB 325 MG TAB PO PRN (20:44)
[2020-12-05] MEDS: MIRTAZAPINE 15 MG TAB PO SCH (20:44)
[2020-12-06 06:47] LABS: Glucose,Whole Blood 125 mg/dL (75-99)
[2020-12-06] MEDS: SYMBICORT 160-4.5 MCG INHALER INHALATION SCH ×2 (07:34→21:04)
[2020-12-06] MEDS: ACETAMINOPHEN TAB 325 MG TAB PO PRN (07:57)
--- NOTE | 2020-12-06 08:35 | P.PN ---
Subjective Progress Note Date: 12/06/20 12/06/2020, the patient is essentially the same. He remains on high flow oxygen. He is on 6 L with an FiO2 of 70%. Breathing is labored even at rest. She desaturates easily with limited amount of activity. Chest x-ray remains essentially unchanged. He remains on oral prednisone and he was taken off the IV Solu Medrol yesterday. His cardiac rhythm is sinus and the patient converted into sinus rhythm is currently off the amiodarone. Echocardiogram was done yesterday and it showed a preserved LV function with an ejection fraction of 50- 55%. There was moderate concentric left ventricular hypertrophy. No signs of any pulmonary hypertension. No valvular heart disease. No pericardial ef fusion. The patient had labs this morning and there is also still pending for now. White cell count from yesterday was 20 and the d-dimer from today is at 2.7 and LDH and the CRP are still pending for now. Meanwhile, I have the patient on prednisone 40 mg by mouth daily. He is also on anticoagulation with Eliquis 5 mg by mouth twice a day. He is having some sinus tachycardia. He'll be started on low-dose beta blockers 12.5 mg of Lopressor twice a day. Tolerating his diet. No nausea. No vomiting. No emesis. Overall, he is weak. He is able to sit up at the edge of the bed and we'll try to set him up on a chair if possible. Using incentive spirometer. Objective - Vital Signs Vital signs: Vital Signs Temp 97.6 F 12/06/20 08:00 Pulse 100 12/06/20 08:00 Resp 16 12/06/20 08:00 BP 94/72 12/06/20 08:00 Pulse Ox 86 L 12/06/20 08:00 Intake & Output 12/05/20 12/06/20 12/06/20 18:59 06:59 18:59 Intake Total 870 500 Output Total 750 800 300 Balance 120 -300 -300 Weight 108.3 kg 109.4 kg Intake: IV 220 20 Sodium Chloride 0.9% 1, 220 20 000 ml @ 20 mls/hr IV . Q24H [facility] Rx#:[id number] Oral 650 480 Output: Urine 750 800 300 Other: Voiding Method Urinal # Voids 0 0 0 - Exam GENERAL EXAM: Alert, very pleasant, 60-year-old male patient, on AirVo at 60 L and FiO2 of 70% HEAD: Normocephalic/atraumatic. EYES: Normal reaction of pupils, equal size. Conjunctiva pink, sclera white. NOSE: Clear with pink turbinates. THROAT: No erythema or exudates. NECK: No masses, no JVD, no thyroid enlargement, no adenopathy. CHEST: No chest wall deformity. Symmetrical expansion. LUNGS: Equal air entry with crackles in the bilateral posterior bases CVS: regular rate and rhythm, normal S1 and S2, no gallops, no murmurs, no rubs ABDOMEN: Soft, nontender. No hepatosplenomegaly, normal bowel sounds, no guarding or rigidity. EXTREMITIES: No clubbing, no edema, no cyanosis, 2+ pulses and upper and lower extremities. MUSCULOSKELETAL: Muscle strength and tone normal. SPINE: No scoliosis or deformity SKIN: No rashes CENTRAL NERVOUS SYSTEM: No focal deficits, tone is normal in all 4 extremities. PSYCHIATRIC: Alert and oriented -3. Appropriate affect. Intact judgment and insight. - Labs CBC & Chem 7: 12/05/20 06:00 12/05/20 06:00 Labs: Abnormal Lab Results - Last 24 Hours (Table) 12/05/20 12/05/20 12/05/20 Range/Units 11:12 16:59 20:32 D-Dimer (<0.60) mg/L FEU POC Glucose (mg/dL) 231 H 131 H 152 H (75-99) mg/dL 12/06/20 12/06/20 Range/Units 03:52 06:46 D-Dimer 2.76 H (<0.60) mg/L FEU POC Glucose (mg/dL) 125 H (75-99) mg/dL Assessment and Plan Plan: 1 Acute Covid 19 related pneumonia. The patient became symptomatic ap proximately 8 days prior to arrival. Presented with worsening shortness of breath and bilateral pneumonia. Patient is not vaccinated. The patient had not received any outpatient treatments for Covid 19 infection. Diagnosis established during this current admission. Started on Bariticinib on 11/15/2020 in view of worsening hypoxic respiratory failure. Patient was outside the window for Remdesivir, no major improvement in the patient's pulmonary findings and the patient's. The mid 80s and the patient remains on high flow oxygen at 60 L weren't FiO2 of 70% addition to 100% nonrebreather facemask.chest x-ray shows no acute abnormalities. He is stable and essentially unchanged compared to yesterday. Chest x-ray findings are essentially stable. The patient will be kept on high flow oxygen. Continue prednisone orally. Decreased mobility. Sit him up on a chair if possible. 2 Acute hypoxic respiratory failure which has significantly progressed since admission, and patient is currently on Airvo at 60 L and FiO2 of 70 %. He was transferred to the intensive care unit on 11/22/2020 3 Obesity with a BMI of 36. 4 Increased inflammatory markers related to acute COVID-19 pneumonia 5 Increased d-dimer, related to viral pneumonia, , Dopplers of the lower extremity negative, CT angiogram ruled out pulmonary embolism 6 new onset atrial fibrillation with rapid ventricular response, treated with amiodarone and subsequently converted back to normal sinus rhythm. Currently o ff amiodarone. He is on Eliquis 5 mg by mouth twice a day. The patient is on beta blockers with metoprolol 12.5 mg by mouth twice a day Plan: Plan Change the metoprolol to 25 mg by mouth twice a day Sit up the patient appearing using incentive spirometer. Prone positioning will be helpful. Continue our efforts to drop that down the FiO2, currently on 70%, keep the fluid 60 L Discontinue the amiodarone Continue prednisone 40 mg by mouth daily Continue Eliquis 5 mg by mouth twice a day Echocardiogram was ordered, ejection fraction is stable IVF KVO Zinc sulfate and vitamin C and vitamin D supplements Monitor oxygenation We'll continue to follow. Condition is still critical. The patient continues to be on high flow of oxygen at 60 L weren't FiO2 of 70%. Chest x-ray shows no major improvement compared to yesterday. His current pulse ox is ranging between 88-92%. Critical care evaluation , 30 min Time with Patient: Greater than 30
[2020-12-06] MEDS: INSULIN ASPART (NovoLOG) 100 UNIT/ML VIAL SQ SCH ×4 (08:40→21:19)
[2020-12-06] MEDS: ALPRAZolam 0.25 MG TAB PO SCH ×3 (08:42→21:13)
[2020-12-06] MEDS: ZINC SULFATE 220 MG CAP PO SCH (08:42)
[2020-12-06] MEDS: CHOLECALCIFEROL 25 MCG (1000 IU) TABLET PO SCH (08:42)
[2020-12-06] MEDS: APIXABAN 5 MG TAB PO SCH ×2 (08:42→21:14)
[2020-12-06] MEDS: ASCORBIC ACID 500 MG TAB PO SCH ×2 (08:42→21:14)
[2020-12-06] MEDS: predniSONE 20 MG TAB PO SCH (08:42)
[2020-12-06] MEDS: METOPROLOL TARTRATE 25 MG TAB PO SCH ×2 (08:42→23:48)
[2020-12-06] MEDS: FLUTICASONE 50MCG/SPRAY NASAL 16GM EA NOSTRIL SCH (08:43)
[2020-12-06] MEDS: DICLOFENAC SODIUM GEL 100 GM TUBE TOPICAL SCH ×4 (08:43→23:47)
[2020-12-06 08:54] LABS: African American GFR (CKD) >90 (>60 ml/min/1.73 sqM); Anion Gap 3 mmol/L; Blood Urea Nitrogen 58 mg/dL (9-20); Calcium 8.8 mg/dL (8.4-10.2); Carbon Dioxide 29 mmol/L (22-30); Chloride 103 mmol/L (98-107); Glucose 143 mg/dL (74-99); LDH 1619 U/L (313-618); Non-African American GFR(CKD) >90 (>60 ml/min/1.73 sqM); Potassium 4.2 mmol/L (3.5-5.1); Sodium 135 mmol/L (137-145)
[2020-12-06 09:04] LABS: Basophils # (A) 0.1 k/uL (0-0.2); Basophils % (A) 0 %; Eosinophils # (A) 0.6 k/uL (0-0.7); Eosinophils % (A) 3 %; HCT 42.6 % (39.0-53.0); HGB 14.1 gm/dL (13.0-17.5); Lymphocytes # (A) 1.1 k/uL (1.0-4.8); Lymphocytes % (A) 5 %; MCH 29.5 pg (25.0-35.0); MCHC 33.2 g/dL (31.0-37.0); Mean Platelet Volume 10.8; Monocytes # (A) 0.4 k/uL (0-1.0); Monocytes % (A) 2 %; Neutrophils # (A) 17.7 k/uL (1.3-7.7); Neutrophils % (A) 89 %; Platelet Count 103 k/uL (150-450); RBC 4.79 m/uL (4.30-5.90); RDW 14.3 % (11.5-15.5)
[2020-12-06] MEDS ORDERED: SODIUM CHLORIDE 0.9% 500 ML 500 ML IV ONE (10:10)
[2020-12-06] MEDS ORDERED: traMADol 50 MG TAB PO PRN (10:12)
--- NOTE | 2020-12-06 10:28 | XR ---
EXAMINATION TYPE: XR chest 1V portable DATE OF EXAM: 12/06/2020 Comparison: 12/05/2020 Clinical History: 60-year-old male covid Findings: Left heart margin obscured by adjacent pleural parenchymal opacity. Bilateral diffuse interstitial op acities persist. Left PICC tip at the lower SVC. No sizable effusion. Impression: Diffuse interstitial infiltrates persist. Slight worsening at the lingula.
[2020-12-06] MEDS ORDERED: ALTEPLASE 2 MG VIAL (CATHFLO) IV STA (10:55)
[2020-12-06 11:20] LABS: Glucose,Whole Blood 104 mg/dL (75-99)
[2020-12-06] MEDS ORDERED: ALTEPLASE 2 MG VIAL (CATHFLO) IV ONE (13:00)
--- NOTE | 2020-12-06 13:36 | P.PN ---
Subjective Progress Note Date: 12/06/20 HISTORY OF PRESENT ILLNESS This is a pleasant 60-year-old gentleman patient of Dr. Ridge Christina. He doesn't see a physician often and does not note any medical diseases, except for obesity. He comes seen secondary to fever and chills, cough, starting December 06 first, along with muscle aches, lack of appetite and diarrhea. he was tested for call bid November 08, which required at week of reporting, subsequently was sent to emergency room secondary to worsening symptoms, including dyspnea on exertion, shortness of breath and worsening cough without hemoptysis. Fever, sh ortness of breath lingers, no treatment given to him prior to this admission. The is vaccinated, but the patient is not. He does not believe in vaccines at that time. He comes in the emergency room, with hypoxemia, with very minimal conversational dyspnea, chest x-ray, shows pulmonary infiltrate consistent with Covid pneumonia, oxygen currently is at 6 L nasal cannula, d-dimer was 0.6, LFTs are minimally elevated, 64 AST, lactic acid 2.0 sodium 132, creatinine of 0.9, glucose of 122, LDH of 888, CRP of 5.7. Urine protein noted, without hematuria or proteinuria. Covid was again retested 11/14, PCR is positive. Consult to Dr. Eduardo and pulmonary,, 11/16: Patient is currently on oxygen at 6 L nasal cannula increased to 7 L with humidified oxygen. Patient seen and followed by pulmonary medicine and has been started on Bariticinib, Decadron 6 mg daily, and prophylactic dose of Lovenox. He is reaching 1750 on incentive spirometry. Patient did have episode of diarrhea yesterday, none today and complains of decreased appetite. Patient complains of nasal congestion and Flonase added. 11/17: Patient had difficulty with oxygenation during the night and this morning transitioned to Airfo and partial nonrebreather. Pulse ox is currently running 90-92%, patient is prone. He has been afebrile, heart rate 88, blood pressure 104/63. Repeat d-dimer is elevated at 0.93. Blood sugar 167. C-reactive protein increased to 5.3. AST is 83 and ALT 51. Blood culture remains with no growth after 48 hours. Repeat chest x-ray reveals mild cardiomegaly with bilateral multifocal opacities consistent with Covid 19 infection. No significant change from most recent x-ray. Albuterol inhaler and Symbicort inhaler added. 11/18: Patient is currently on AirVo and nonrebreather with pulse ox of 93%. He's been afebrile, heart rate 85, blood pressure 103/68. Blood culture no growth at 72 hours 2 specimens. Plan to continue proning. Repeat laboratory studies ordered for tomorrow including inflammatory markers. The patient is having difficulty sleeping and melatonin added. Lovenox increased to twice daily dosing. 11/19: Patient remains in isolation. He is on AirVO plus nonrebreather with pulse ox of 93%. He has been afebrile, heart rate 85, blood pressure 122/69. Patient is found sitting in recliner and encouraged to prone when he is able to. Repeat blood work reveals WBC 12, hemoglobin 14.8, platelet count 282. D-dimer is 1.38. Other blood work is pending. Patient is continued on Decadron, vitamin supplements, Lovenox. He is on day #07/20 of Baricitinib. 11/20: Patient has been afebrile, heart rate 71, blood pressure 107/71, pulse ox 88-93% on AirVo plus nonrebreather. Patient seems to be depressed and frustrated with coarse. Noted that he started on Xanax yesterday by pulmonary. We will add and Remeron 7.5 mg at bedtime. Hemoglobin A1c came back at 6.4. Patient is encouraged to use incentive spirometry, increase activity, prone. Discussed CODE STATUS with patient and he wishes to be a full code. 11/21: Patient will pulse ox of 83% as he was on Airvo only and once nonrebreather was placed she went up to 89%. Patient is not eating much. He has been encouraged to take protein supplement, increase activity and prone but patient does not seem motivated. He was started on Remeron last night which will hopefully help with his mood and appetite. He has continued on Lovenox, dexamethasone, Baricitinib #09/19 repeat blood work reveals WBC 14.3. D-dimer increasing to 3.2. Electrolytes normal, creatinine 0.76. LDH is high at 1476, C-reactive protein stable 6.6. 11/22: Patient continues to be on airflow and nonrebreather and with minimal movement, pulse ox drops down to 82%, otherwise patient is maintaining 92-94%. One dose of IV Lasix ordered for today. Temperature max yesterday afternoon was 101.2. Heart rate in the 70s and 80s. Blood pressure 110/59. Urinalysis was negative for infection. Repeat blood work will be ordered for tomorrow. 11/23: Patient Was moved into ICU overnight. He has been on BiPAP through the night and pulse oxing 95% recently on his side, currently sitting on the edge of the bed pulse oxing 90%, with talking he drops to 83%. He is scheduled for PICC line insertion and plan to start TPN today. Patient has been afebrile, heart rate in the 60s, respiratory rate 28. WBC 12.0, hemoglobin 15, platelet count 351. Lymphocytes 11.1. D-dimer 2.46. Sodium 136, otherwise electrolytes are normal. BUN 30 creatinine 0.7. Blood sugar 128. Magnesium 2.5. Phosphorus 5.5. LDH 1691. C-reactive protein 13.4. Total protein 5.6. Blood cultures remain with no growth. Repeat chest x-ray this morning reveals stable diffuse bilateral infiltrates. Patient is on Baricitinib 10/20. Pulmonary has increased frequency of dexamethasone to twice daily and changed to IV6 mg IV twice daily. 11/24: Patient remain in the ICU, still on BiPAP with pulse ox is improving at this point. Continue dexamethasone and Baricitinib 11/20, patient had full meal this morning his TPN will be suspended after today. Patient will remain in the ICU at least for the next 48 hours. 11/25: Remain in the ICU still on BiPAP but his pulse ox is slightly bit better he still on dexamethasone and Baricitinib 12/20 seems to do slightly but better was agreed by intensive care studies TPN, patient oral intake is slightly but better and had slight improvement compared to yesterday. Surprisingly his marker went up slightly bit specially his LDH up to 2086 with C-reactive protein 3.6 kidney function remained good white blood cell climb up to 15.1 specially been on steroid. Chest x-ray still shows diffuse bilateral interstitial infiltrate and patchy opacification persistent but there is a slight improvement in the variation in the left lower lobe compared to few days earlier. 11/26: Patient remain on BiPAP with 100% oxygen to keep his pulse ox around 92 percentile, his d-dimer continue to be quite bit elevated today is having Doppler of the lower extremity but notes CT at this point. Remain on Symbicort, and albuterol HFA, his white blood cell is down 17,000, blood sugars better control. Chest x-ray still showed patchy infiltrate throughout both lung felix persistent didn't change. Patient had mild anxiety with no pain currently. 11/27: Patient remains in the intensive care unit. He is placed on airflow for eating and pulse ox drops to the 7083 percent range. Pulse ox 90-93% on100% BiPAP. He is afebrile, heart rate in the 70s, respiratory rate 27 and 32, blood pressure 102/71. WBC 21.5, lymphocytes 0.6. D-dimer 7.29. Blood sugars running between 111 and 171. Ferritin level [id number]. ALT 54, alkaline phosphatase 152. CK 27, C-reactive protein 2.9. Repeat chest x-ray reveals borderline cardiomegaly with prominent pulmonary vascular markings. Diffuse increased lung markings are present. Correlate for heart failure. Atypical pneumonia should be considered. Lower extremity ultrasound negative for DVT bilaterally. 11/28: Patient remains in the intensive care unit and found sitting in a chair at the bedside. He is continued on BiPAP and switched over to Arava and nonrebreather for meals. Repeat chest x-ray essentially unchanged. Repeat blood work reveals WBC 20.4, hemoglobin 14.8, platelet count 130. Sodium 134, potassium 4.8, creatinine 0.62. LDH 2934. C-reactive protein 3.3, d-dimer 10.2. CT angiogram of the chest has been ordered by pulmonary medicine which revealed slightly suboptimal study without evidence of acute pulmonary embolism. Mild cardiomegaly with bilateral cities and multifocal organizing consolidations consistent with Covid19 infection. Lovenox has been changed to 40 mg daily and dexamethasone changed to Solu-Medrol 60 mg every 6 hours. Taco michelle has completed course of Baricitinib. 11/29: Patient remains in the intensive care unit, patient is utilizing BiPAP and also Airvo with nonrebreather mask added at times as he tolerates. His ox ygenation seems to be improving at 89-93%. Respiratory rate 24, heart rate 88, blood pressure 107/58. Patient does verbalize that he is feeling somewhat better today. WBC 16.4, hemoglobin 15.1, platelet count 120. D-dimer 13.49, C- reactive protein 2, LDH 2086, CK 47. Repeat chest x-ray reveals correlate for pneumonia, edema or pulmonary hemorrhage, there is cardiomegaly. Patient is currently continued on Lovenox, Solu-Medrol, bronchodilators and vitamin supplements. 11/30: Patient remains in intensive care unit, he sitting in a chair at the bedside. He is feeling a little bit better and breath sounds are sounding a little better from yesterday. He is currently on AirVO. Pulse ox is running 84-87%, he has been afebrile, heart rate in the 80s and 90s, respiratory rate in the 20s, blood pressure 110/67. Repeat blood work reveals WBC 19.4, platelet count 126. D-dimer 10.2, LDH 2157, CK 78, C-reactive protein 1.5. Sodium 135, BUN 44 creatinine 0.73. Patient is continued on Lovenox, IV Solu-Medrol, bronchodilators and supplements. 12/01: Patient remains in ICU, he is currently sitting in chair at the bedside. Patient continues to state that he feels a bit better breath sounds are sounding better compared to yesterday. He is currently on airflow. His pulse ox is running 87-89%, he is still short of breath with conversation. Patient has been afebrile, heart rate 72, respirations 28, blood pressure 109/61. WBC 16.0, hemoglobin 15.1, platelets 112, potassium 4.6, BUN 39, creatinine 0.84. Patient is continued on Lovenox, IV Solu-Medrol, bronchodilators and supplements. 12/02: Patient remains in ICU, he is currently sitting up in a chair at the bedside. Patient continues to have shortness of breath with activity and conversation. His chest x-ray unchanged to prior studies. D-dimer 5.96. Incentive spirometer is at the bedside however encouragement to utilize if needed. Patient has been afebrile, heart rate 85, respirations 28, blood pressure 138/86 pulse ox is 85-89% on Airvo. 12/03, patient remains ICU, he seems to be gradually improving, intending around for the better, has improvement on shortness of breath with conversation, nothing supple she did today for dyspnea, however with movement, he does have shortness of breath while in bed turning around. Patient has an airflow at 65 L, pulse ox 90%. No new fevers, no melena and hematochezia, nutrition is appropriate, and is getting better. 12/04: Patient remains in the intensive care unit. He is onAirVo with nonrebreather mask on standby. He did have a rise in his heart rate up to the 140s, atrial fibrillation with RVR and pulmonary has started the patient on amiodarone drip. He has been afebrile, respiratory rate 28, pulse ox 94-97%. WBC 18.7, hemoglobin 15.5, platelet count 131. Sodium 134, potassium 4.5, chloride 99, CO2 31, BUN 32 and creatinine 0.72. Blood sugars are running between 144 and 193. AST 71, ALT 283, alkaline phosphatase 82. LDH 1946, C- reactive protein 0.6. D-dimer 4.21. Repeat chest x-ray reveals worsening bilateral diffuse interstitial and patchy airspace disease. 12/05: Patient has been taken out of isolation by infection control. He is now on AirVo, FiO2 at 75%. He does have nonrebreather mask on standby but oxygen needs seem to be improving slightly. He seems to be slightly less short of breath. Nephrology has switched him to oral prednisone and off Solu-Medrol. Patient is on eliquis for atrial fibrillation. Heart rate is currently cont rolled and he has been afebrile. Amiodarone has been discontinued, echocardiogram ordered. Pulse ox is 88%, afebrile, blood pressure 111/72 and heart rate in the 80s. lap layer sinus rhythm. Repeat blood work reveals WBC 20.4, hemoglobin 15.2, platelet count 109. Sodium 135, potassium 4.9, chloride 100, CO2 33, BUN 46 and creatinine 0.84. Blood sugars are running between 133 and 231. LDH 1616. 12/05: Patient had difficult is sleeping last night despite use of Remeron and having back pain issues. Tramadol at bedtime ordered. Patient remains in the intensive care unit, he has been moved out of isolation. He continues to be on airflow with pulse ox in the 80s. Blood pressure is soft this morning 85/53 and 92/67 for which fluid bolus of 500 ML's ordered. He's been afebrile, heart rate in the 80s. lap layer sinus rhythm. Metoprolol was increased to 25 mg twice daily. Echocardiogram reveals EF of 50-55%. REVIEW OF SYSTEMS Constitutional: No fever, no chills, no night sweats. Reports weakness, reports fatigue no lethargy. Reports daytime sleepiness. EENT: No headache. No blurred vision or double vision, no loss of vision. No dizziness. No nasal drainage or congestion. No epistaxis. No sore throat. Lungs Reported shortness of breath continues, reported cough, no sputum production. No wheezing. Dyspnea with minimal exertion. dyspnea at rest. Cardiovascular: No chest pain, no lower extremity edema. No palpitations. No paroxysmal nocturnal dyspnea. No orthopnea. No lightheadedness or dizziness. No syncopal episodes. Abdominal: No abdominal pain. No nausea, vomiting. Reports diarrhea. No constipation. No bloody or tarry stools. Reports loss of appetite. Genitourinary: No dysuria, no increased frequency, no urgency. No urinary retention. Musculoskeletal: No myalgias. Generalized muscle weakness, no gait dysfunction, no frequent falls. Reports back pain. No neck pain. Integumentary: No wounds, no lesions. No rash or pruritus. No unusual bruising. Neurologic: No aphasia. No facial droop. No change in mentation. No head injury. No headache. No paresthesia. Psychiatric: No depression. No anxiety. No mood swings. Insomnia. Reports difficulty sleeping. Endocrine: Noted abnormal blood sugars. PHYSICAL EXAMINATION Gen: This is a 60-year-old obese male sitting up in the ICU room. He is with Airvo in place and appears to be fairly comfortable, dyspnea with talking. HEENT: Head is atraumatic, normocephalic. Pupils equal, round. Sclerae is anicteric. NECK: Supple. No JVD. No lymphadenopathy. No thyromegaly. LUNGS: Diminished breath sounds. No wheezes or rhonchi. Mild accessory muscle usage or. HEART: Regular rate and rhythm. No murmur. ABDOMEN: obese. Soft. Bowel sounds are present. No masses. No tenderness. EXTREMITIES: No pedal edema. No calf tenderness. NEUROLOGICAL: Patient is awake, alert and oriented x3. Cranial nerves 2 through 12 are grossly intact. ASSESSMENT AND PLAN 1. Acute respiratory failure: Secondary to COVID-19, consult with pulmonary medicine appreciated, continue oxygen therapy including BiPAP, prednisone, eliquis, bronchodilators and vitamin supplements 2. Sepsis (POA) secondary to COVID-19 pneumonia, with acute hypoxemic respiratory failure, diagnosis was of 11/08/2020, symptoms started December 06 first. Patient is not vaccinated, and since being seen in consultation by pulm shelby, oral prednisone 40 mg daily, Lovenox 40 mg daily, completed course of Baricitinib, continue albuterol inhaler, Symbicort inhaler, prone positioning. Continue O2 via BiPAP or AirVO. 3. Moderate protein calorie malnutrition secondary to poor oral intake. Patient is off TPN, continue regular diet with ensure protein supplements. 4. DVT prophylaxis Lovenox Increased frequency to twice daily. Doppler of lower extremity negative for DVT bilaterally. 5. GI prophylaxis Pepcid no abdominal pain. 6. BPH without LUTs no sign of urinary retention. 7. Proteinuria, unknown cause, 8. Dymetabolic syndrome, monitor for hyperglycemia, A1c 6.4. NovoLog scale before meals and at bedtime. 9. New-onset atrial fibrillation with RVR, paroxysmal atrial fibrillation. Amiodarone drip discontinued, continue Lopressor 12.5 mg twice daily, eliquis 5 mg twice daily, echocardiogram. 10. Thrombocytopenia secondary to sepsis. 11. Back pain. Tramadol 50 mg at bedtime ordered. CODE Status: Full code Prognosis: Still guarded. Impression and plan of care have been directed as dictated by the signing physician. Sanam Valentine nurse practitioner acting as scribe for signing physician. Objective - Vital Signs Vital signs: Vital Signs Temp 97.6 F 12/06/20 08:00 Pulse 94 12/06/20 09:00 Resp 28 H 12/06/20 09:00 BP 110/71 12/06/20 09:00 Pulse Ox 87 L 12/06/20 09:00 Intake & Output 12/05/20 12/06/20 12/06/20 18:59 06:59 18:59 Intake Total 870 500 150 Output Total 750 800 300 Balance 120 -300 -150 Weight 108.3 kg 109.4 kg Intake: IV 220 20 Sodium Chloride 0.9% 1, 220 20 000 ml @ 20 mls/hr IV . Q24H [facility] Rx#:[id number] Oral 650 480 150 Output: Urine 750 800 300 Other: Voiding Method Urinal # Voids 0 0 0 - Labs CBC & Chem 7: 12/06/20 03:52 12/06/20 06:52 Labs: Abnormal Lab Results - Last 24 Hours (Table) 12/05/20 12/05/20 12/05/20 Range/Units 11:12 16:59 20:32 WBC (3.8-10.6) k/uL Plt Count (150-450) k/uL Neutrophils # (1.3-7.7) k/uL D-Dimer (<0.60) mg/L FEU Sodium (137-145) mmol/L BUN (9-20) mg/dL Glucose (74-99) mg/dL POC Glucose (mg/dL) 231 H 131 H 152 H (75-99) mg/dL Lactate Dehydrogenase (313-618) U/L 12/06/20 12/06/20 12/06/20 Range/Units 03:52 03:52 06:46 WBC 20.0 H (3.8-10.6) k/uL Plt Count 103 L (150-450) k/uL Neutrophils # 17.7 H (1.3-7.7) k/uL D-Dimer 2.76 H (<0.60) mg/L FEU Sodium (137-145) mmol/L BUN (9-20) mg/dL Glucose (74-99) mg/dL POC Glucose (mg/dL) 125 H (75-99) mg/dL Lactate Dehydrogenase (313-618) U/L 12/06/20 Range/Units 06:52 WBC (3.8-10.6) k/uL Plt Count (150-450) k/uL Neutrophils # (1.3-7.7) k/uL D-Dimer (<0.60) mg/L FEU Sodium 135 L (137-145) mmol/L BUN 58 H (9-20) mg/dL Glucose 143 H (74-99) mg/dL POC Glucose (mg/dL) (75-99) mg/dL Lactate Dehydrogenase 1619 H (313-618) U/L
[2020-12-06 16:38] LABS: Glucose,Whole Blood 131 mg/dL (75-99)
[2020-12-06 21:03] LABS: Glucose,Whole Blood 117 mg/dL (75-99)
[2020-12-06] MEDS: ALBUTEROL HFA INHALER INHALATION PRN (21:04)
[2020-12-06] MEDS: MIRTAZAPINE 15 MG TAB PO SCH (21:14)
[2020-12-06] MEDS: MELATONIN 3 MG TABLET PO SCH (21:14)
[2020-12-07] MEDS ORDERED: SODIUM CHLORIDE 0.9% 2,000 ML IV ONE ×3 (03:52→15:25)
[2020-12-07 04:44] LABS: African American GFR (CKD) >90 (>60 ml/min/1.73 sqM); Anion Gap 3 mmol/L; Blood Urea Nitrogen 64 mg/dL (9-20); Calcium 7.6 mg/dL (8.4-10.2); Carbon Dioxide 29 mmol/L (22-30); Chloride 102 mmol/L (98-107); Glucose 155 mg/dL (74-99); LDH 1474 U/L (313-618); Non-African American GFR(CKD) >90 (>60 ml/min/1.73 sqM); Potassium 4.7 mmol/L (3.5-5.1); Sodium 134 mmol/L (137-145)
[2020-12-07] MEDS: NOREPINEPHRINE 4 MG in SODIUM CHLORIDE 0.9% 250 ML IV SCH ×4 (06:07→12:11)
[2020-12-07] MEDS: SODIUM CHLORIDE 0.9% 1,000 ML IV SCH (06:23)
[2020-12-07 06:42] LABS: MCH 29.3 pg (25.0-35.0); MCHC 32.3 g/dL (31.0-37.0); MCV 90.6 fL (80.0-100.0); Mean Platelet Volume 10.2; RDW 14.3 % (11.5-15.5); WBC 22.6 k/uL (3.8-10.6)
[2020-12-07 06:58] LABS: HGB 9.4 gm/dL (13.0-17.5)
[2020-12-07] MEDS: SYMBICORT 160-4.5 MCG INHALER INHALATION SCH (07:47)
[2020-12-07] MEDS: ALBUTEROL HFA INHALER INHALATION PRN (07:47)
--- NOTE | 2020-12-07 08:39 | P.PN ---
Subjective Progress Note Date: 12/07/20 12/07/2020, the patient is obviously decompensated. As of yesterday afternoon, the patient started having issues with his blood pressure. He was having soft blood pressure and he was given IV fluids. Note that he was on high flow oxygen with FiO2 of 70% and 60 L flow. His pressors status was borderline. He had a normal echocardiogram and his cardiac rhythm is already converted to sinus. Based on his proximal atrial fibrillation, I have placed this patient on Eliquis 5 mg by mouth twice a day. Overnight, the patient had melanotic stools consistent with upper GI bleed. At that point, there was also drop in hemoglobin with his baseline hemoglobin runs at around 14.1 and his hemoglobin is currently down to 9.4. For the same time he developed sinus tachycardia and hypotension. Currently is on 20 mics per minute of norepinephrine infusion to support his blood pressure. White cell count is at 22.6. At the same time, following a bloody bowel movement, the patient's respiratory status decompensated and he became more hypoxic and short of breath. Currently is on a BiPAP at a pressure of 12/6 with an FiO2 of 60%. His pulse ox currently is about 99%. Most recent blood pressure is 80/58. Urine output has also dropped since he became hypotensive. The rest of the blood work from today shows a sodium 134, BUN of 64 with a creatinine of 0.8. His serum bicarbonate 29. Occult blood in the stool was positive. LDH level was down to 1474. Chest x- ray is consistent with post COVID-19 related pneumonia/ARDS with diffuse bilateral pulmonary infiltrates. He is a bit lethargic. He still responsive. Following commands. He is cold and clammy and he has diminished pulses in all 4 extremities. No fever for now. Objective - Vital Signs Vital signs: Vital Signs Temp 98.4 F 12/07/20 04:00 Pulse 109 H 12/07/20 08:00 Resp 29 H 12/07/20 08:00 BP 80/58 12/07/20 08:00 Pulse Ox 98 12/07/20 08:00 Intake & Output 12/06/20 12/07/20 12/07/20 18:59 06:59 18:59 Intake Total 1250 2613.017 2050 Output Total 1100 925 150 Balance 150 1410.929 2288 Weight 108.2 kg Intake: IV 2000 Sodium Chloride 0.9% 2, 2000 000 ml @ 999 mls/hr IV . Q2H1M [facility] Rx#:[id number] Intake, IV Titration 500 3.017 50 Amount Norepinephrine 4 mg In 23.017 Sodium Chloride 0.9% 250 ml @ 0.05 MCG/KG/MIN 20. 612 mls/hr IV .[id number] [facility] Rx#:[id number] Sodium Chloride 0.9% 1, 50 000 ml @ 50 mls/hr IV . Q20H [facility] Rx#:[id number] Sodium Chloride 0.9% 2, 2000 000 ml @ 999 mls/hr IV . Q2H1M [facility] Rx#:[id number] Sodium Chloride 0.9% 500 500 ml 500 ml @ 999 mls/hr IV .Q31M [facility] Rx#:[id number] Oral 750 590 Output: Urine 1100 925 150 Stool 0 Other: Voiding Method Urinal Urinal # Voids 0 0 0 # Bowel Movements 1 - Exam GENERAL EXAM: Alert, very pleasant, 60-year-old male patient, on on BiPAP at a pressure of 12/6 cm of water with an FiO2 of 60%. HEAD: Normocephalic/atraumatic. EYES: Normal reaction of pupils, equal size. Conjunctiva pink, sclera white. NOSE: Clear with pink turbinates. THROAT: No erythema or exudates. NECK: No masses, no JVD, no thyroid enlargement, no adenopathy. CHEST: No chest wall deformity. Symmetrical expansion. LUNGS: Equal air entry with crackles in the bilateral posterior bases CVS: regular rate and rhythm, normal S1 and S2, no gallops, no murmurs, no rubs ABDOMEN: Soft, nontender. No hepatosplenomegaly, normal bowel sounds, no guarding or rigidity. EXTREMITIES: No clubbing, no edema, no cyanosis, and the patient has diminished pulses in all 4 extremities MUSCULOSKELETAL: Muscle strength and tone normal. SPINE: No scoliosis or deformity SKIN: No rashes CENTRAL NERVOUS SYSTEM: No focal deficits, tone is normal in all 4 extremities. PSYCHIATRIC: Alert and oriented -3. Appropriate affect. Intact judgment and insight. - Labs CBC & Chem 7: 12/07/20 04:05 12/07/20 04:05 Labs: Abnormal Lab Results - Last 24 Hours (Table) 12/06/20 12/06/20 12/06/20 Range/Units 03:52 06:52 11:18 WBC 20.0 H (3.8-10.6) k/uL RBC (4.30-5.90) m/uL Hgb (13.0-17.5) gm/dL Hct (39.0-53.0) % Plt Count 103 L (150-450) k/uL Neutrophils # 17.7 H (1.3-7.7) k/uL Sodium 135 L (137-145) mmol/L BUN 58 H (9-20) mg/dL Glucose 143 H (74-99) mg/dL POC Glucose (mg/dL) 104 H (75-99) mg/dL Calcium (8.4-10.2) mg/dL Lactate Dehydrogenase 1619 H (313-618) U/L 12/06/20 12/06/20 12/07/20 Range/Units 16:37 21:01 04:05 WBC 22.6 H (3.8-10.6) k/uL RBC 3.20 L (4.30-5.90) m/uL Hgb 9.4 L D (13.0-17.5) gm/dL Hct 29.0 L (39.0-53.0) % Plt Count (150-450) k/uL Neutrophils # (1.3-7.7) k/uL Sodium (137-145) mmol/L BUN (9-20) mg/dL Glucose (74-99) mg/dL POC Glucose (mg/dL) 131 H 117 H (75-99) mg/dL Calcium (8.4-10.2) mg/dL Lactate Dehydrogenase (313-618) U/L 12/07/20 Range/Units 04:05 WBC (3.8-10.6) k/uL RBC (4.30-5.90) m/uL Hgb (13.0-17.5) gm/dL Hct (39.0-53.0) % Plt Count (150-450) k/uL Neutrophils # (1.3-7.7) k/uL Sodium 134 L (137-145) mmol/L BUN 64 H (9-20) mg/dL Glucose 155 H (74-99) mg/dL POC Glucose (mg/dL) (75-99) mg/dL Calcium 7.6 L (8.4-10.2) mg/dL Lactate Dehydrogenase 1474 H (313-618) U/L Assessment and Plan Plan: 1 Acute Covid 19 related pneumonia. The patient became symptomatic approximat loree 8 days prior to arrival. Presented with worsening shortness of breath and bilateral pneumonia. Patient is not vaccinated. The patient had not received any outpatient treatments for Covid 19 infection. Diagnosis established during this current admission. Started on Bariticinib on 11/15/2020 in view of worsening hypoxic respiratory failure. Patient was outside the window for Remdesivir, no major improvement in the patient's pulmonary findings and the patient's. This morning, the patient and BiPAP at a pressure of 12/6 with an FiO2 of 60%. Is able to maintain his oxygenation above 90%. Nevertheless, he is to And he has a high minute ventilation. Chest x-ray showing diffuse but the pulmonary infiltrates consistent with COVID-19 related pneumonia/ARDS. His respiratory status of decompensated following a bout of hypotension and GI bleed. 2 Acute hypoxic respiratory failure which has significantly progressed since admission, and patient is currently on BiPAP 12/6 with an FiO2 of 60%. He was transferred to the intensive care unit on 11/22/2020 3 Obesity with a BMI of 36. 4 Increased inflammatory markers related to acute COVID-19 pneumonia 5 Increased d-dimer, related to viral pneumonia, , Dopplers of the lower extremity negative, CT angiogram ruled out pulmonary embolism 6 paroxysmal atrial fibrillation with rapid ventricular response, treated with amiodarone and subsequently converted back to normal sinus rhythm. Currently off amiodarone. He was started on Eliquis and ultimately Eliquis was discontinued this morning because of a GI bleed 7 acute hypotension/consider hypovolemic/hemorrhagic shock knowing that the patient had a bout of GI bleed and hemoglobin dropped down to 9.5. Septic component cannot be completely excluded. The patient was resuscitated with IV fluids and pressors and blood if needed. Anticoagulation will be also discontinued. Plan: Give the patient 2 L of normal saline bolus Increase the maintenance fluid to 150 mL an hour of normal saline Stop the Eliquis With the patient IV Protonix Check hemoglobin every 4 hours and repeat hemoglobin will be done. Any further drop in hemoglobin below 8 we will need blood transfusion nontender the patient is currently hypotensive and a shock state. Stop Metoprolol Check pro calcitonin Check 2 sets of blood cultures Because the patient on IV cefepime empiric antibiotic coverage Check lactic acid level Stop the prednisone and switch this patient back on Solu-Medrol 40 mg IV every 12 Zinc sulfate and vitamin C and vitamin D supplements Monitor oxygenation We'll continue to follow. Condition is still critical. High likelihood that the patient may further decompensated and required intubation mechanical ventilation. He'll be monitored very closely. Is a PICC line for now. An arterial line may be also need to be established for adequate blood pressure monitoring. I had a lengthy discussion with the . I contacted on the phone and discussed the above-ment ioned updates. She is welcome to come in. She has already visited him or the past 3 days. Critical care evaluation , 30 min Time with Patient: Greater than 30
[2020-12-07 08:48] LABS: Glucose,Whole Blood 173 mg/dL (75-99)
[2020-12-07 08:50] LABS: Platelet Count 94 k/uL (150-450)
[2020-12-07] MEDS: PANTOPRAZOLE 40 MG/10 ML VIAL IVP SCH ×2 (08:50→20:35)
[2020-12-07] MEDS: methylPREDNISolone SOD SUCCI 40 MG/ML 1 ML VIAL IV SCH ×2 (08:50→20:35)
[2020-12-07 08:58] LABS: Band Neutrophils % 3 %; Eosinophils # (M) 0.68 k/uL (0-0.7); Lymphocytes # (M) 2.26 k/uL (1.0-4.8); Monocytes # (M) 0.45 k/uL (0-1.0); Neutrophils % (M) 82 %; Nucleated Red Blood Cells 0 /100 WBC (0-0); Total Cells Counted 100
[2020-12-07] MEDS: INSULIN ASPART (NovoLOG) 100 UNIT/ML VIAL SQ SCH ×4 (09:19→21:09)
[2020-12-07 09:35] LABS: Appearance,Urine Clear (Clear); Bilirubin,Urine Negative (Negative); Blood,Urine Negative (Negative); Color,Urine Yellow; Glucose,Urine (UA) Negative (Negative); Ketones,Urine Negative (Negative); Leukocyte Esterase,Urine Negative (Negative); Nitrite,Urine Negative (Negative); Protein,Urine Negative (Negative); Specific Gravity,Urine 1.025 (1.001-1.035); Urobilinogen,Urine <2.0 mg/dL (<2.0)
[2020-12-07] MEDS ORDERED: HUMAN PROTHROMBIN COMPLX 500 UNIT/16 ML VIAL IV ONE (10:00)
[2020-12-07 10:08] LABS: Albumin 1.7 g/dL (3.5-5.0); Bilirubin, Delta 0.1 mg/dL (0.0-0.2); Bilirubin,Unconjugated 0.4 mg/dL (0.0-1.1); Total Bilirubin 0.5 mg/dL (0.2-1.3); Total Protein 3.4 g/dL (6.3-8.2)
[2020-12-07 10:36] LABS: INR 1.5 (<1.2); Partial Thromboplastin Time 25.5 sec (22.0-30.0); Prothrombin Time 15.4 sec (9.0-12.0)
[2020-12-07] MEDS: CEFEPIME 1 GM in SODIUM CHLORIDE 0.9% 50 ML IVPB SCH ×2 (11:00→20:40)
[2020-12-07] MEDS: ALPRAZolam 0.25 MG TAB PO SCH ×2 (11:01→15:31)
[2020-12-07] MEDS ORDERED: Kcentra PER PHARMACY 1 EACH MISC MISCELLANE PRN (11:24)
[2020-12-07] MEDS ORDERED: CISATRACURIUM 2 MG/ML 5 ML VIAL IV ONE (11:32)
[2020-12-07] MEDS ORDERED: propofoL 100 ML IV ONE (11:32)
[2020-12-07] MEDS ORDERED: NOREPINEPHRIN 4 MG-0.9% NS PMX 4 MG/250 ML ML IV ONE ×2 (11:37→15:57)
[2020-12-07] MEDS ORDERED: EMPTY BAG 1 BAG with HUMAN PROTHROMBIN COMPLX 2,220 UNIT IV ONE (12:00)
[2020-12-07] MEDS: FLUTICASONE 50MCG/SPRAY NASAL 16GM EA NOSTRIL SCH (12:12)
--- NOTE | 2020-12-07 12:14 | P.PCN ---
Date of Procedure: 12/07/20 Preoperative Diagnosis: GI bleeding, respiratory failure Postoperative Diagnosis: GI bleeding, respiratory failure Procedure(s) Performed: Intubation, Central line and arterial line insertion Anesthesia: MAC Surgeon: Mandi Eduardo Condition: critical Disposition: ICU Operative Findings: Intubation Indication: Respiratory compromise. A time-out was completed verifying correct patient, procedure, site, positioning, and implant(s) or special equipment if applicable. The patient was positioned appropriately and a # 8endotracheal tube was placed under direct glidoscope . The tube was anchored at 22 cm at the teeth. Correct placement was confirmed by presence of bilateral breath sounds without air sounds in the abdomen on auscultation. An end-tidal CO2 monitor was also used to confirm tracheal placement of the ET tube. A chest x-ray was ordered to assess for pneumothorax and verify endotracheal tube placement. The patient tolerated the procedure well and there were no complications. Central line Indication: Hemodynamic monitoring/Intravenous access. A time-out was completed verifying correct patient, procedure, site, positioning, and implant(s) or special equipment if applicable. The patient was placed in a dependent position appropriate for central line placement based on the vein to be cannulated. The patients right shoulder was prepped and draped in sterile fashion. 1% Lidocaine was used to anesthetize the surrounding skin area. A triple lumen 9F Cordis catheter was introduced into the right subclavian vein using Seldinger technique. The catheter was threaded smoothly over the guide wire and appropriate blood return was obtained. Each lumen of the catheter was evacuated of air and flushed with sterile saline. The catheter was then sutured in place to the skin and a sterile dressing applied. Perfusion to the extremity distal to the point of catheter insertion was checked and found to be adequate. The patient tolerated the procedure well and there were no complications. Arterial line Indication: Hemodynamic monitoring. A time-out was completed verifying correct patient, procedure, site, positioning, and implant(s) or special equipment if applicable. Allens test was performed to ensure adequate perfusion. The patients right wrist was prepped and draped in sterile fashion. 1% Lidocaine was used to anesthetize the area. An 18G Arrow arterial line was introduced into the radial artery. The catheter was threaded over the guide wire and the needle was removed with appropriate pulsatile blood return. Blood loss was minimal. The catheter was then sutured in place to the skin and a sterile dressing applied. Perfusion to the extremity distal to the point of catheter insertion was checked and found to be adequate. The patient tolerated the procedure well and there were no complications.
[2020-12-07 12:39] LABS: ABG Base Excess -9.1 mmol/L; ABG HCO3 19 mmol/L (21-25); ABG Oxygen Saturation 99.9 % (94-97); ABG PCO2 53 mmHg (35-45); ABG PO2 237 mmHg (83-108); ABG TCO2 21 mmol/L (19-24)
[2020-12-07] MEDS: CISATRACURIUM 200 MG in SODIUM CHLORIDE 0.9% 180 ML IV SCH (12:46)
[2020-12-07] MEDS: ZINC SULFATE 220 MG CAP PO SCH (12:46)
[2020-12-07] MEDS: ASCORBIC ACID 500 MG TAB PO SCH ×2 (12:46→20:30)
[2020-12-07] MEDS: CHOLECALCIFEROL 25 MCG (1000 IU) TABLET PO SCH (12:46)
--- NOTE | 2020-12-07 12:48 | P.PN ---
Subjective Progress Note Date: 12/07/20 HISTORY OF PRESENT ILLNESS This is a pleasant 60-year-old gentleman patient of Dr. Ridge Christina. He doesn't see a physician often and does not note any medical diseases, except for obesity. He comes seen secondary to fever and chills, cough, starting December 06 first, along with muscle aches, lack of appetite and diarrhea. he was tested for call bid November 08, which required at week of reporting, subsequently was sent to emergency room secondary to worsening symptoms, including dyspnea on exertion, shortness of breath and worsening cough without hemoptysis. Fever, sh ortness of breath lingers, no treatment given to him prior to this admission. The is vaccinated, but the patient is not. He does not believe in vaccines at that time. He comes in the emergency room, with hypoxemia, with very minimal conversational dyspnea, chest x-ray, shows pulmonary infiltrate consistent with Covid pneumonia, oxygen currently is at 6 L nasal cannula, d-dimer was 0.6, LFTs are minimally elevated, 64 AST, lactic acid 2.0 sodium 132, creatinine of 0.9, glucose of 122, LDH of 888, CRP of 5.7. Urine protein noted, without hematuria or proteinuria. Covid was again retested 11/14, PCR is positive. Consult to Dr. Eduardo and pulmonary,, 11/16: Patient is currently on oxygen at 6 L nasal cannula increased to 7 L with humidified oxygen. Patient seen and followed by pulmonary medicine and has been started on Bariticinib, Decadron 6 mg daily, and prophylactic dose of Lovenox. He is reaching 1750 on incentive spirometry. Patient did have episode of diarrhea yesterday, none today and complains of decreased appetite. Patient complains of nasal congestion and Flonase added. 11/17: Patient had difficulty with oxygenation during the night and this morning transitioned to Airfo and partial nonrebreather. Pulse ox is currently running 90-92%, patient is prone. He has been afebrile, heart rate 88, blood pressure 104/63. Repeat d-dimer is elevated at 0.93. Blood sugar 167. C-reactive protein increased to 5.3. AST is 83 and ALT 51. Blood culture remains with no growth after 48 hours. Repeat chest x-ray reveals mild cardiomegaly with bilateral multifocal opacities consistent with Covid 19 infection. No significant change from most recent x-ray. Albuterol inhaler and Symbicort inhaler added. 11/18: Patient is currently on AirVo and nonrebreather with pulse ox of 93%. He's been afebrile, heart rate 85, blood pressure 103/68. Blood culture no growth at 72 hours 2 specimens. Plan to continue proning. Repeat laboratory studies ordered for tomorrow including inflammatory markers. The patient is having difficulty sleeping and melatonin added. Lovenox increased to twice daily dosing. 11/19: Patient remains in isolation. He is on AirVO plus nonrebreather with pulse ox of 93%. He has been afebrile, heart rate 85, blood pressure 122/69. Patient is found sitting in recliner and encouraged to prone when he is able to. Repeat blood work reveals WBC 12, hemoglobin 14.8, platelet count 282. D-dimer is 1.38. Other blood work is pending. Patient is continued on Decadron, vitamin supplements, Lovenox. He is on day #07/20 of Baricitinib. 11/20: Patient has been afebrile, heart rate 71, blood pressure 107/71, pulse ox 88-93% on AirVo plus nonrebreather. Patient seems to be depressed and frustrated with coarse. Noted that he started on Xanax yesterday by pulmonary. We will add and Remeron 7.5 mg at bedtime. Hemoglobin A1c came back at 6.4. Patient is encouraged to use incentive spirometry, increase activity, prone. Discussed CODE STATUS with patient and he wishes to be a full code. 11/21: Patient will pulse ox of 83% as he was on Airvo only and once nonrebreather was placed she went up to 89%. Patient is not eating much. He has been encouraged to take protein supplement, increase activity and prone but patient does not seem motivated. He was started on Remeron last night which will hopefully help with his mood and appetite. He has continued on Lovenox, dexamethasone, Baricitinib #09/19 repeat blood work reveals WBC 14.3. D-dimer increasing to 3.2. Electrolytes normal, creatinine 0.76. LDH is high at 1476, C-reactive protein stable 6.6. 11/22: Patient continues to be on airflow and nonrebreather and with minimal movement, pulse ox drops down to 82%, otherwise patient is maintaining 92-94%. One dose of IV Lasix ordered for today. Temperature max yesterday afternoon was 101.2. Heart rate in the 70s and 80s. Blood pressure 110/59. Urinalysis was negative for infection. Repeat blood work will be ordered for tomorrow. 11/23: Patient Was moved into ICU overnight. He has been on BiPAP through the night and pulse oxing 95% recently on his side, currently sitting on the edge of the bed pulse oxing 90%, with talking he drops to 83%. He is scheduled for PICC line insertion and plan to start TPN today. Patient has been afebrile, heart rate in the 60s, respiratory rate 28. WBC 12.0, hemoglobin 15, platelet count 351. Lymphocytes 11.1. D-dimer 2.46. Sodium 136, otherwise electrolytes are normal. BUN 30 creatinine 0.7. Blood sugar 128. Magnesium 2.5. Phosphorus 5.5. LDH 1691. C-reactive protein 13.4. Total protein 5.6. Blood cultures remain with no growth. Repeat chest x-ray this morning reveals stable diffuse bilateral infiltrates. Patient is on Baricitinib 10/20. Pulmonary has increased frequency of dexamethasone to twice daily and changed to IV6 mg IV twice daily. 11/24: Patient remain in the ICU, still on BiPAP with pulse ox is improving at this point. Continue dexamethasone and Baricitinib 11/20, patient had full meal this morning his TPN will be suspended after today. Patient will remain in the ICU at least for the next 48 hours. 11/25: Remain in the ICU still on BiPAP but his pulse ox is slightly bit better he still on dexamethasone and Baricitinib 12/20 seems to do slightly but better was agreed by intensive care studies TPN, patient oral intake is slightly but better and had slight improvement compared to yesterday. Surprisingly his marker went up slightly bit specially his LDH up to 2086 with C-reactive protein 3.6 kidney function remained good white blood cell climb up to 15.1 specially been on steroid. Chest x-ray still shows diffuse bilateral interstitial infiltrate and patchy opacification persistent but there is a slight improvement in the variation in the left lower lobe compared to few days earlier. 11/26: Patient remain on BiPAP with 100% oxygen to keep his pulse ox around 92 percentile, his d-dimer continue to be quite bit elevated today is having Doppler of the lower extremity but notes CT at this point. Remain on Symbicort, and albuterol HFA, his white blood cell is down 17,000, blood sugars better control. Chest x-ray still showed patchy infiltrate throughout both lung felix persistent didn't change. Patient had mild anxiety with no pain currently. 11/27: Patient remains in the intensive care unit. He is placed on airflow for eating and pulse ox drops to the 7083 percent range. Pulse ox 90-93% on100% BiPAP. He is afebrile, heart rate in the 70s, respiratory rate 27 and 32, blood pressure 102/71. WBC 21.5, lymphocytes 0.6. D-dimer 7.29. Blood sugars running between 111 and 171. Ferritin level [id number]. ALT 54, alkaline phosphatase 152. CK 27, C-reactive protein 2.9. Repeat chest x-ray reveals borderline cardiomegaly with prominent pulmonary vascular markings. Diffuse increased lung markings are present. Correlate for heart failure. Atypical pneumonia should be considered. Lower extremity ultrasound negative for DVT bilaterally. 11/28: Patient remains in the intensive care unit and found sitting in a chair at the bedside. He is continued on BiPAP and switched over to Arava and nonrebreather for meals. Repeat chest x-ray essentially unchanged. Repeat blood work reveals WBC 20.4, hemoglobin 14.8, platelet count 130. Sodium 134, potassium 4.8, creatinine 0.62. LDH 2934. C-reactive protein 3.3, d-dimer 10.2. CT angiogram of the chest has been ordered by pulmonary medicine which revealed slightly suboptimal study without evidence of acute pulmonary embolism. Mild cardiomegaly with bilateral cities and multifocal organizing consolidations consistent with Covid19 infection. Lovenox has been changed to 40 mg daily and dexamethasone changed to Solu-Medrol 60 mg every 6 hours. Taco michelle has completed course of Baricitinib. 11/29: Patient remains in the intensive care unit, patient is utilizing BiPAP and also Airvo with nonrebreather mask added at times as he tolerates. His ox ygenation seems to be improving at 89-93%. Respiratory rate 24, heart rate 88, blood pressure 107/58. Patient does verbalize that he is feeling somewhat better today. WBC 16.4, hemoglobin 15.1, platelet count 120. D-dimer 13.49, C- reactive protein 2, LDH 2086, CK 47. Repeat chest x-ray reveals correlate for pneumonia, edema or pulmonary hemorrhage, there is cardiomegaly. Patient is currently continued on Lovenox, Solu-Medrol, bronchodilators and vitamin supplements. 11/30: Patient remains in intensive care unit, he sitting in a chair at the bedside. He is feeling a little bit better and breath sounds are sounding a little better from yesterday. He is currently on AirVO. Pulse ox is running 84-87%, he has been afebrile, heart rate in the 80s and 90s, respiratory rate in the 20s, blood pressure 110/67. Repeat blood work reveals WBC 19.4, platelet count 126. D-dimer 10.2, LDH 2157, CK 78, C-reactive protein 1.5. Sodium 135, BUN 44 creatinine 0.73. Patient is continued on Lovenox, IV Solu-Medrol, bronchodilators and supplements. 12/01: Patient remains in ICU, he is currently sitting in chair at the bedside. Patient continues to state that he feels a bit better breath sounds are sounding better compared to yesterday. He is currently on airflow. His pulse ox is running 87-89%, he is still short of breath with conversation. Patient has been afebrile, heart rate 72, respirations 28, blood pressure 109/61. WBC 16.0, hemoglobin 15.1, platelets 112, potassium 4.6, BUN 39, creatinine 0.84. Patient is continued on Lovenox, IV Solu-Medrol, bronchodilators and supplements. 12/02: Patient remains in ICU, he is currently sitting up in a chair at the bedside. Patient continues to have shortness of breath with activity and conversation. His chest x-ray unchanged to prior studies. D-dimer 5.96. Incentive spirometer is at the bedside however encouragement to utilize if needed. Patient has been afebrile, heart rate 85, respirations 28, blood pressure 138/86 pulse ox is 85-89% on Airvo. 12/03, patient remains ICU, he seems to be gradually improving, intending around for the better, has improvement on shortness of breath with conversation, nothing supple she did today for dyspnea, however with movement, he does have shortness of breath while in bed turning around. Patient has an airflow at 65 L, pulse ox 90%. No new fevers, no melena and hematochezia, nutrition is appropriate, and is getting better. 12/04: Patient remains in the intensive care unit. He is onAirVo with nonrebreather mask on standby. He did have a rise in his heart rate up to the 140s, atrial fibrillation with RVR and pulmonary has started the patient on amiodarone drip. He has been afebrile, respiratory rate 28, pulse ox 94-97%. WBC 18.7, hemoglobin 15.5, platelet count 131. Sodium 134, potassium 4.5, chloride 99, CO2 31, BUN 32 and creatinine 0.72. Blood sugars are running between 144 and 193. AST 71, ALT 283, alkaline phosphatase 82. LDH 1946, C- reactive protein 0.6. D-dimer 4.21. Repeat chest x-ray reveals worsening bilateral diffuse interstitial and patchy airspace disease. 12/05: Patient has been taken out of isolation by infection control. He is now on AirVo, FiO2 at 75%. He does have nonrebreather mask on standby but oxygen needs seem to be improving slightly. He seems to be slightly less short of breath. Nephrology has switched him to oral prednisone and off Solu-Medrol. Patient is on eliquis for atrial fibrillation. Heart rate is currently cont rolled and he has been afebrile. Amiodarone has been discontinued, echocardiogram ordered. Pulse ox is 88%, afebrile, blood pressure 111/72 and heart rate in the 80s. traffic monitor specialist sinus rhythm. Repeat blood work reveals WBC 20.4, hemoglobin 15.2, platelet count 109. Sodium 135, potassium 4.9, chloride 100, CO2 33, BUN 46 and creatinine 0.84. Blood sugars are running between 133 and 231. LDH 1616. 12/06: Patient had difficult is sleeping last night despite use of Remeron and having back pain issues. Tramadol at bedtime ordered. Patient remains in the intensive care unit, he has been moved out of isolation. He continues to be on airflow with pulse ox in the 80s. Blood pressure is soft this morning 85/53 and 92/67 for which fluid bolus of 500 ML's ordered. He's been afebrile, heart rate in the 80s. traffic monitor specialist sinus rhythm. Metoprolol was increased to 25 mg twice daily. Echocardiogram reveals EF of 50-55%. 12/07: She remains in intensive care unit but is doing poorly this morning. He had a large bright red and mostly dark stool last evening and a repeat this morning. Maria Del Carmen has been placed on hold, he is very quite vasopressors and started on levo. He is on Protonix 40 mg IV push twice daily. He is scheduled to receive 2 units of packed RBCs for drop in his hemoglobin to 9.4. He is currently receiving 2 L IV fluid bolus. Stool for occult blood was positive. Consult was added for Dr. Ojeda. He is currently on BiPAP at 100% with pulse ox of 100%, heart rate 104, respiratory rate 27, blood pressure 88/51. Other blood work today reveals WBC of 22.6, platelet count of 94. Creatinine 0.82 with BUN of 64. Blood sugars 173. Lactic acid 2.9. INR is 1.5, PTT 25.5, AST 69, ALT 200, LDH 1474. Alkaline phosphatase 57 urinalysis negative for infection. Patient had a previous colonoscopy with Dr. Reyes that was normal. REVIEW OF SYSTEMS Constitutional: No fever, no chills, no night sweats. Reports weakness, reports fatigue no lethargy. Reports daytime sleepiness. EENT: No headache. No blurred vision or double vision, no loss of vision. No dizziness. No nasal drainage or congestion. No epistaxis. No sore throat. Lungs Reported shortness of breath continues, reported cough, no sputum production. No wheezing. Dyspnea with minimal exertion. dyspnea at rest. Cardiovascular: No chest pain, no lower extremity edema. No palpitations. No paroxysmal nocturnal dyspnea. No orthopnea. No lightheadedness or dizziness. No syncopal episodes. Abdominal: Denies abdominal pain. No nausea, vomiting. Denies diarrhea. No constipation. Reports bloody or tarry stools. Reports loss of appetite. Genitourinary: No dysuria, no increased frequency, no urgency. No urinary retention. Musculoskeletal: No myalgias. Generalized muscle weakness, no gait dysfunction, no frequent falls. Reports back pain. No neck pain. Integumentary: No wounds, no lesions. No rash or pruritus. No unusual bruising. Neurologic: No aphasia. No facial droop. No change in mentation. No head injury. No headache. No paresthesia. Psychiatric: No depression. No anxiety. No mood swings. Insomnia. Reports difficulty sleeping. Endocrine: Noted abnormal blood sugars. PHYSICAL EXAMINATION Gen: This is a 60-year-old obese male sitting up in the ICU room. He is with BiPAP and appears to be fairly comfortable. HEENT: Head is atraumatic, normocephalic. Pupils equal, round. Sclerae is ani cteric. NECK: Supple. No JVD. No lymphadenopathy. No thyromegaly. LUNGS: Diminished breath sounds. No wheezes or rhonchi. Mild accessory muscle usage or. HEART: Regular rate and rhythm. No murmur. ABDOMEN: obese. Soft. Bowel sounds are present. No masses. No tenderness. EXTREMITIES: No pedal edema. No calf tenderness. NEUROLOGICAL: Patient is awake, alert and oriented x3. Cranial nerves 2 through 12 are grossly intact. ASSESSMENT AND PLAN 1. Acute respiratory failure: Secondary to COVID-19, consult with pulmonary medicine appreciated, continue oxygen therapy including BiPAP, prednisone, eliquis, bronchodilators and vitamin supplements 2. Sepsis (POA) secondary to COVID-19 pneumonia, with acute hypoxemic respiratory failure, diagnosis was of 11/08/2020, symptoms started December 06 first. Patient is not vaccinated, and since being seen in consultation by pulmonary, oral prednisone 40 mg daily, Lovenox 40 mg daily, completed course of Baricitinib, continue albuterol inhaler, Symbicort inhaler, prone positioning. Continue O2 via BiPAP or AirVO. 3. Moderate protein calorie malnutrition secondary to poor oral intake. Patient is off TPN, continue regular diet with ensure protein supplements. 4. DVT prophylaxis Lovenox Increased frequency to twice daily. Doppler of lower extremity negative for DVT bilaterally. 5. GI prophylaxis Pepcid no abdominal pain. 6. BPH without LUTs no sign of urinary retention. 7. Proteinuria, unknown cause, 8. Dymetabolic syndrome, monitor for hyperglycemia, A1c 6.4. NovoLog scale before meals and at bedtime. 9. New-onset atrial fibrillation with RVR, paroxysmal atrial fibrillation. Amiodarone drip discontinued, continue Lopressor 12.5 mg twice daily, eliquis placed on hold. Echocardiogram as above. 10. Thrombocytopenia secondary to sepsis. 11. Back pain. Tramadol 50 mg at bedtime ordered. 12. Acute GI bleed. Eliquis placed on hold, 2 units packed RBCs, IV fluid bolus of 2 L, consult with Dr. Ojeda. 13. Acute hypovolemic shock requiring vasopressor, IV fluid bolus. CODE Status: Full code Prognosis: Still guarded. Impression and plan of care have been directed as dictated by the signing physician. Sanam Valentine nurse practitioner acting as scribe for signing physician. Objective - Vital Signs Vital signs: Vital Signs Temp 99.1 F 12/07/20 08:45 Pulse 112 H 12/07/20 09:00 Resp 29 H 12/07/20 09:00 BP 85/55 12/07/20 09:00 Pulse Ox 100 12/07/20 09:00 Intake & Output 12/06/20 12/07/20 12/07/20 18:59 06:59 18:59 Intake Total 1250 2613.017 2434.977 Output Total 1100 925 350 Balance 150 3178.262 9567.977 Weight 108.2 kg Intake: IV 2150 Sodium Chloride 0.9% 1, 150 000 ml @ 150 mls/hr IV . Q6H40M HIRAM Rx#:[id number] Sodium Chloride 0.9% 2, 2000 000 ml @ 999 mls/hr IV . Q2H1M ONE Rx#:[id number] Intake, IV Titration 500 2023.017 284.977 Amount Norepinephrine 4 mg In 23.017 234.977 Sodium Chloride 0.9% 250 ml @ 0.05 MCG/KG/MIN 20. 612 mls/hr IV .[id number] HIRAM Rx#:[id number] Sodium Chloride 0.9% 1, 50 000 ml @ 150 mls/hr IV . Q6H40M [facility]AM Rx#:[id number] Sodium Chloride 0.9% 2, 2000 000 ml @ 999 mls/hr IV . Q2H1M ONE Rx#:[id number] Sodium Chloride 0.9% 500 500 ml 500 ml @ 999 mls/hr IV .Q31M ONE Rx#:[id number] Oral 750 590 Output: Urine 1100 925 350 Stool 0 Other: Voiding Method Urinal Urinal # Voids 0 0 0 # Bowel Movements 1 - Labs CBC & Chem 7: 12/07/20 04:05 12/07/20 04:05 Labs: Abnormal Lab Results - Last 24 Hours (Table) 12/06/20 12/06/20 12/06/20 Range/Units 11:18 16:37 21:01 WBC (3.8-10.6) k/uL RBC (4.30-5.90) m/uL Hgb (13.0-17.5) gm/dL Hct (39.0-53.0) % Plt Count (150-450) k/uL Neutrophils # (Manual) (1.3-7.7) k/uL Sodium (137-145) mmol/L BUN (9-20) mg/dL Glucose (74-99) mg/dL POC Glucose (mg/dL) 104 H 131 H 117 H (75-99) mg/dL Calcium (8.4-10.2) mg/dL Lactate Dehydrogenase (313-618) U/L 12/07/20 12/07/20 12/07/20 Range/Units 04:05 04:05 08:46 WBC 22.6 H (3.8-10.6) k/uL RBC 3.20 L (4.30-5.90) m/uL Hgb 9.4 L D (13.0-17.5) gm/dL Hct 29.0 L (39.0-53.0) % Plt Count 94 L (150-450) k/uL Neutrophils # (Manual) 19.20 H (1.3-7.7) k/uL Sodium 134 L (137-145) mmol/L BUN 64 H (9-20) mg/dL Glucose 155 H (74-99) mg/dL POC Glucose (mg/dL) 173 H (75-99) mg/dL Calcium 7.6 L (8.4-10.2) mg/dL Lactate Dehydrogenase 1474 H (313-618) U/L
--- NOTE | 2020-12-07 12:54 | XR ---
EXAMINATION TYPE: XR chest 1V portable DATE OF EXAM: 12/07/2020 COMPARISON: 12/06/2020 INDICATION: Confirm line placement PICC line TECHNIQUE: Single frontal view of the chest is obtained. FINDINGS: The heart size is normal. The pulmonary vasculature is indistinct. There is diffuse increased lung markings present bilaterally. r there are multiple lines and catheters. A right central venous catheter has tip in the distal super ior vena cava region. PICC line enters on the left with the tip in the superior vena cava region. End otracheal tube tip is somewhat low at 1.2 cm above the kamil[place]. This could be withdrawn approximately 1 cm. Nasogastric tube transverses the thorax with the tip in the upper abdomen. IMPRESSION: 1. Diffuse increase in lung markings bilaterally. Correlate for chronic atypical pneumonia. 2. Insertion of a right central venous catheter with tip in the cavoatrial region. No pneumothorax is evident. 3. Low-lying endotracheal tube tip can be withdrawn approximately 1 cm. 4. Multiple lines and catheters discussed above
[2020-12-07 13:02] LABS: HCT 25.5 % (39.0-53.0); HGB 8.7 gm/dL (13.0-17.5); MCH 30.5 pg (25.0-35.0); MCHC 33.9 g/dL (31.0-37.0); MCV 89.8 fL (80.0-100.0); Mean Platelet Volume 9.3; RBC 2.85 m/uL (4.30-5.90); RDW 14.5 % (11.5-15.5)
[2020-12-07 13:03] LABS: Platelet Count 64 k/uL (150-450)
[2020-12-07] MEDS: DICLOFENAC SODIUM GEL 100 GM TUBE TOPICAL SCH ×2 (13:08→13:09)
[2020-12-07 13:17] LABS: Band Neutrophils % 5 %; Metamyelocytes % 3 %; Neutrophils % (M) 80 %; Nucleated Red Blood Cells 2 /100 WBC (0-0); Total Cells Counted 200
[2020-12-07 13:18] LABS: Eosinophils # (M) 0.46 k/uL (0-0.7); Lymphocytes # (M) 1.86 k/uL (1.0-4.8); Monocytes # (M) 0.46 k/uL (0-1.0); WBC 23.2 k/uL (3.8-10.6)
[2020-12-07] MEDS ORDERED: SODIUM BICARB 8.4% 50 ML SYR (1 MEQ/ML) IV STA ×2 (13:32→16:52)
[2020-12-07 13:49] LABS: ABG PH 7.17 (7.35-7.45)
[2020-12-07 14:02] LABS: Glucose,Whole Blood 214 mg/dL (75-99)
[2020-12-07] MEDS: SODIUM CHLORIDE 0.9% 150 ML with VASOPRESSIN 60 UNIT IV SCH ×2 (14:15)
--- NOTE | 2020-12-07 15:34 | P.GSCN ---
History of Present Illness Consult date: 12/07/20 History of present illness: CHIEF COMPLAINT: COVID-19 Pneumonia Reason for consult GI bleed HISTORY OF PRESENT ILLNESS: This is a 60-year-old male who initially presented to the hospital on 11/15/2020 with symptoms of Covid 19 pneumonia. Patient also developed atrial fibrillation with episode of rapid ventricular response during his admission and was started on Eliquis. Patient apparently had shown improvement and was supposed to get out of the ICU today. Unfortunately he developed a GI bleed. Last night patient had a black bowel movement. He had another small black bowel movement this morning and then later in the morning he had a large maroon Isha bowel movement. He did have a drop of his hemoglobin from 14.1-8.7. He became tachycardic and hypotensive. He had a decline in his respiratory status. Patient required to be intubated. He is currently on vasopressin and Levophed. He has received 3 units of blood and 5 L of fluid within the last 24 hours. Eliquis was discontinued. And he received Kcentra to reverse the Eliquis. Family is at bedside. Family reported the patient never had an EGD before. He's had colonoscopies with noncancerous polyps. And he has never had a prior GI bleed before. Per nursing staff no vomiting reported. Patient did complain of some lower abdominal cramping before his first bowel movement. PAST MEDICAL HISTORY: Past medical history PAST SURGICAL HISTORY: No prior abdominal surgical history MEDICATIONS: See list. ALLERGIES: See list. SOCIAL HISTORY: No illicit drug use. REVIEW OF SYSTEMS: Unable to obtain. Patient is intubated and sedated PHYSICAL EXAM: VITAL SIGNS: Reviewed GENERAL: Well-developed in no acute distress. HEENT: No sclera icterus. Extraocular movements grossly intact. Moist buccal mucosa. Head is atraumatic, normocephalic. No nasal drainage. ABDOMEN: Soft. Nondistended. NEUROLOGIC: Patient is intubated and sedated LABORATORY DATA: WBC is 23.2 hemoglobin 14.1 down to 8.7 platelets are 64 Sodium 134 potassium 4.7 creatinine 0.82 Lactic acid 3.5 Fecal occult blood positive IMAGING: ASSESSMENT: 1. Acute GI bleed 2. Acute blood loss anemia 3. Tachycardic and hypotensive secondary to acute blood loss anemia PLAN: -Patient scheduled for EGD and colonoscopy on 12/10/[address] Lester -Patient will need to start GoLYTELY prep on Thursday -Continue to monitor CBC -Continue monitor for signs or symptoms of bleeding -Continue PPI -Keep Eliquis on hold -Continue ICU management -Continue supportive care Thank you for this consultation Physician Department Head note has been reviewed by physician. Signing provider agrees with the documented findings, assessment, and plan of care. Past Medical History Past Medical History: No Reported History History of Any Multi-Drug Resistant Organisms: None Reported Past Surgical History: Joint Replacement Additional Past Surgical History / Comment(s): right shoulder surgry 10 years ago Past Psychological History: No Psychological Hx Reported Smoking Status: Never smoker Past Alcohol Use History: Occasional Past Drug Use History: None Reported Medications and Allergies Home Medications Medication Instructions Recorded Confirmed Type Ascorbic Acid [Vitamin C] 1,000 mg PO DAILY 11/14/20 11/14/20 History Cholecalciferol [Vitamin D3 (25 25 mcg PO DAILY 11/14/20 11/14/20 History Mcg = 1000 Iu)] Fish Oil/Dha/Epa [Fish Oil 1,200 1 cap PO DAILY 11/14/20 11/14/20 History mg Fish Oil] Multivitamins, Thera [Multivitamin 1 tab PO DAILY 11/14/20 11/14/20 History (formulary)] Allergies Allergy/AdvReac Type Severity Reaction Status Date / Time No Known Allergies Allergy Verified 11/14/20 14:47 Surgical - Exam Vital Signs Temp Pulse Resp BP Pulse Ox 102.1 F H 105 H 18 120/73 89 L 11/14/20 12:56 11/14/20 12:56 11/14/20 12:56 11/14/20 12:56 11/14/20 12:56 Results - Labs 12/07/20 04:05 12/07/20 04:05 Abnormal Lab Results - Last 24 Hours (Table) 12/06/20 12/06/20 12/07/20 Range/Units 16:37 21:01 04:05 WBC 22.6 H (3.8-10.6) k/uL RBC 3.20 L (4.30-5.90) m/uL Hgb 9.4 L D (13.0-17.5) gm/dL Hct 29.0 L (39.0-53.0) % Plt Count 94 L (150-450) k/uL Neutrophils # (Manual) 19.20 H (1.3-7.7) k/uL Metamyelocytes # (Man) (0) k/uL Nucleated RBCs (0-0) /100 WBC PT (9.0-12.0) sec INR (<1.2) ABG pH (7.35-7.45) ABG pCO2 (35-45) mmHg ABG pO2 (83-108) mmHg ABG HCO3 (21-25) mmol/L ABG O2 Saturation (94-97) % Sodium (137-145) mmol/L BUN (9-20) mg/dL Glucose (74-99) mg/dL POC Glucose (mg/dL) 131 H 117 H (75-99) mg/dL Plasma Lactic Acid Kadeem (0.7-2.0) mmol/L Calcium (8.4-10.2) mg/dL AST (17-59) U/L ALT (4-49) U/L Lactate Dehydrogenase (313-618) U/L Total Protein (6.3-8.2) g/dL Albumin (3.5-5.0) g/dL Crossmatch 12/07/20 12/07/20 12/07/20 Range/Units 04:05 04:05 08:46 WBC (3.8-10.6) k/uL RBC (4.30-5.90) m/uL Hgb (13.0-17.5) gm/dL Hct (39.0-53.0) % Plt Count (150-450) k/uL Neutrophils # (Manual) (1.3-7.7) k/uL Metamyelocytes # (Man) (0) k/uL Nucleated RBCs (0-0) /100 WBC PT (9.0-12.0) sec INR (<1.2) ABG pH (7.35-7.45) ABG pCO2 (35-45) mmHg ABG pO2 (83-108) mmHg ABG HCO3 (21-25) mmol/L ABG O2 Saturation (94-97) % Sodium 134 L (137-145) mmol/L BUN 64 H (9-20) mg/dL Glucose 155 H (74-99) mg/dL POC Glucose (mg/dL) 173 H (75-99) mg/dL Plasma Lactic Acid Kadeem (0.7-2.0) mmol/L Calcium 7.6 L (8.4-10.2) mg/dL AST 69 H (17-59) U/L ALT 200 H (4-49) U/L Lactate Dehydrogenase 1474 H (313-618) U/L Total Protein 3.4 L (6.3-8.2) g/dL Albumin 1.7 L (3.5-5.0) g/dL Crossmatch 12/07/20 12/07/20 12/07/20 Range/Units 10:06 10:06 10:06 WBC (3.8-10.6) k/uL RBC (4.30-5.90) m/uL Hgb (13.0-17.5) gm/dL Hct (39.0-53.0) % Plt Count (150-450) k/uL Neutrophils # (Manual) (1.3-7.7) k/uL Metamyelocytes # (Man) (0) k/uL Nucleated RBCs (0-0) /100 WBC PT 15.4 H (9.0-12.0) sec INR 1.5 H (<1.2) ABG pH (7.35-7.45) ABG pCO2 (35-45) mmHg ABG pO2 (83-108) mmHg ABG HCO3 (21-25) mmol/L ABG O2 Saturation (94-97) % Sodium (137-145) mmol/L BUN (9-20) mg/dL Glucose (74-99) mg/dL POC Glucose (mg/dL) (75-99) mg/dL Plasma Lactic Acid Kadeem 2.9 H* (0.7-2.0) mmol/L Calcium (8.4-10.2) mg/dL AST (17-59) U/L ALT (4-49) U/L Lactate Dehydrogenase (313-618) U/L Total Protein (6.3-8.2) g/dL Albumin (3.5-5.0) g/dL Crossmatch See Detail 12/07/20 12/07/20 12/07/20 Range/Units 12:25 14:01 14:31 WBC (3.8-10.6) k/uL RBC (4.30-5.90) m/uL Hgb (13.0-17.5) gm/dL Hct (39.0-53.0) % Plt Count (150-450) k/uL Neutrophils # (Manual) (1.3-7.7) k/uL Metamyelocytes # (Man) (0) k/uL Nucleated RBCs (0-0) /100 WBC PT (9.0-12.0) sec INR (<1.2) ABG pH 7.17 L* (7.35-7.45) ABG pCO2 53 H (35-45) mmHg ABG pO2 237 H (83-108) mmHg ABG HCO3 19 L (21-25) mmol/L ABG O2 Saturation 99.9 H (94-97) % Sodium (137-145) mmol/L BUN (9-20) mg/dL Glucose (74-99) mg/dL POC Glucose (mg/dL) 214 H (75-99) mg/dL Plasma Lactic Acid Kadeem 3.5 H* (0.7-2.0) mmol/L Calcium (8.4-10.2) mg/dL AST (17-59) U/L ALT (4-49) U/L Lactate Dehydrogenase (313-618) U/L Total Protein (6.3-8.2) g/dL Albumin (3.5-5.0) g/dL Crossmatch 12/07/20 Range/Units Unknown WBC 23.2 H (3.8-10.6) k/uL RBC 2.85 L (4.30-5.90) m/uL Hgb 8.7 L (13.0-17.5) gm/dL Hct 25.5 L (39.0-53.0) % Plt Count 64 L (150-450) k/uL Neutrophils # (Manual) 19.70 H (1.3-7.7) k/uL Metamyelocytes # (Man) 0.70 H (0) k/uL Nucleated RBCs 2 H (0-0) /100 WBC PT (9.0-12.0) sec INR (<1.2) ABG pH (7.35-7.45) ABG pCO2 (35-45) mmHg ABG pO2 (83-108) mmHg ABG HCO3 (21-25) mmol/L ABG O2 Saturation (94-97) % Sodium (137-145) mmol/L BUN (9-20) mg/dL Glucose (74-99) mg/dL POC Glucose (mg/dL) (75-99) mg/dL Plasma Lactic Acid Kadeem (0.7-2.0) mmol/L Calcium (8.4-10.2) mg/dL AST (17-59) U/L ALT (4-49) U/L Lactate Dehydrogenase (313-618) U/L Total Protein (6.3-8.2) g/dL Albumin (3.5-5.0) g/dL Crossmatch Diabetes panel 12/07/20 12/07/20 Range/Units 04:05 04:05 Sodium 134 L (137-145) mmol/L Potassium 4.7 (3.5-5.1) mmol/L Chloride 102 (98-107) mmol/L Carbon Dioxide 29 (22-30) mmol/L BUN 64 H (9-20) mg/dL Creatinine 0.82 (0.66-1.25) mg/dL Glucose 155 H (74-99) mg/dL Calcium 7.6 L (8.4-10.2) mg/dL AST 69 H (17-59) U/L ALT 200 H (4-49) U/L Alkaline Phosphatase 57 (38-126) U/L Total Protein 3.4 L (6.3-8.2) g/dL Albumin 1.7 L (3.5-5.0) g/dL Calcium panel 12/07/20 12/07/20 Range/Units 04:05 04:05 Calcium 7.6 L (8.4-10.2) mg/dL Albumin 1.7 L (3.5-5.0) g/dL Pituitary panel 12/07/20 Range/Units 04:05 Sodium 134 L (137-145) mmol/L Potassium 4.7 (3.5-5.1) mmol/L Chloride 102 (98-107) mmol/L Carbon Dioxide 29 (22-30) mmol/L BUN 64 H (9-20) mg/dL Creatinine 0.82 (0.66-1.25) mg/dL Glucose 155 H (74-99) mg/dL Calcium 7.6 L (8.4-10.2) mg/dL Adrenal panel 12/07/20 12/07/20 Range/Units 04:05 04:05 Sodium 134 L (137-145) mmol/L Potassium 4.7 (3.5-5.1) mmol/L Chloride 102 (98-107) mmol/L Carbon Dioxide 29 (22-30) mmol/L BUN 64 H (9-20) mg/dL Creatinine 0.82 (0.66-1.25) mg/dL Glucose 155 H (74-99) mg/dL Calcium 7.6 L (8.4-10.2) mg/dL Total Bilirubin 0.5 (0.2-1.3) mg/dL AST 69 H (17-59) U/L ALT 200 H (4-49) U/L Alkaline Phosphatase 57 (38-126) U/L Total Protein 3.4 L (6.3-8.2) g/dL Albumin 1.7 L (3.5-5.0) g/dL
[2020-12-07 15:47] LABS: HCT 34.6 % (39.0-53.0); HGB 11.1 gm/dL (13.0-17.5); MCH 29.4 pg (25.0-35.0); MCHC 32.2 g/dL (31.0-37.0); MCV 91.4 fL (80.0-100.0); Mean Platelet Volume 9.3; RBC 3.79 m/uL (4.30-5.90); WBC 32.1 k/uL (3.8-10.6)
[2020-12-07 15:48] LABS: Platelet Count 58 k/uL (150-450)
[2020-12-07] MEDS: NOREPINEPHRINE 8 MG in SODIUM CHLORIDE 0.9% 250 ML IV SCH ×2 (16:08→18:46)
[2020-12-07 16:19] LABS: African American GFR (CKD) >90 (>60 ml/min/1.73 sqM); Anion Gap 1 mmol/L; Blood Urea Nitrogen 55 mg/dL (9-20); Carbon Dioxide 21 mmol/L (22-30); Chloride 115 mmol/L (98-107); Glucose 225 mg/dL (74-99); Non-African American GFR(CKD) >90 (>60 ml/min/1.73 sqM); Potassium 5.4 mmol/L (3.5-5.1); Sodium 137 mmol/L (137-145)
[2020-12-07 16:30] LABS: Calcium 5.4 mg/dL (8.4-10.2)
[2020-12-07] MEDS ORDERED: CALCIUM CHLORIDE 100 MG/ML 10 ML SYRINGE IVP ONE (17:00)
[2020-12-07 18:06] LABS: Glucose,Whole Blood 203 mg/dL (75-99)
[2020-12-07] MEDS ORDERED: ALBUMIN HUMAN 25% 50 ML in EMPTY BAG 1 BAG IVPB ONE (18:26)
[2020-12-07] MEDS ORDERED: SODIUM CHLORIDE 0.9% 1,000 ML IV ONE (18:28)
[2020-12-07] MEDS: MELATONIN 3 MG TABLET PO SCH (20:30)
[2020-12-07] MEDS: CHLORHEXIDINE GLUCONATE 15 ML CUP MUCOUS MEM SCH (20:35)
[2020-12-07 20:47] LABS: Glucose,Whole Blood 192 mg/dL (75-99)
[2020-12-07] MEDS: NOREPINEPHRINE 32 MG in SODIUM CHLORIDE 0.9% 218 ML IV SCH (20:56)
[2020-12-07 20:57] LABS: HCT 26.6 % (39.0-53.0); MCH 30.3 pg (25.0-35.0); MCHC 34.8 g/dL (31.0-37.0); MCV 87.2 fL (80.0-100.0); Mean Platelet Volume 10.5; Poikilocytosis Slight; RBC 3.05 m/uL (4.30-5.90); WBC 29.3 k/uL (3.8-10.6)
[2020-12-07 21:04] LABS: HGB 9.3 gm/dL (13.0-17.5); Platelet Count 56 k/uL (150-450)
[2020-12-07 22:37] LABS: INR 1.3 (<1.2); Partial Thromboplastin Time 25.3 sec (22.0-30.0); Prothrombin Time 13.2 sec (9.0-12.0)
[2020-12-07 22:51] LABS: ABG Base Excess -8.6 mmol/L; ABG HCO3 19 mmol/L (21-25); ABG Oxygen Saturation 99.4 % (94-97); ABG PCO2 47 mmHg (35-45); ABG PH 7.22 (7.35-7.45); ABG PO2 170 mmHg (83-108); ABG TCO2 21 mmol/L (19-24); Allen Test Performed? Yes
[2020-12-08 00:41] LABS: Glucose,Whole Blood 203 mg/dL (75-99)
--- NOTE | 2020-12-08 00:50 | CT ---
EXAMINATION TYPE: CT abdomen pelvis w con DATE OF EXAM: 12/08/2020 COMPARISON: None HISTORY: lower gastrointestinal bleed. no prior on PACS. CT DLP: 2424.9 mGycm Automated exposure control for dose reduction was used. CONTRAST: Performed with IV Contrast, patient injected with 100ml mL of Isovue 300. Images obtained from the diaphragm to the floor the pelvis with IV contrast Isovue 100 mL. FINDINGS: There is diffuse pulmonary interstitial and airspace edema in the lower lung felix. Heart size is fa irly normal. There is no pericardial effusion. There is no pleural effusion. There is some air around the lower thoracic esophagus consistent with pneumomediastinum. There is nasogastric tube in the sto mach. Tip is in the gastric antrum. Liver is intact. Spleen is intact. There is no evidence of pancreatic mass. The bile is are not dilat ed. Gallbladder is contracted. There is no adrenal mass. Kidneys show satisfactory contrast opacification. There is no hydronephrosi s. There is very little contrast excretion on the delayed images. There is no retroperitoneal adenopa thy. There is small amount of free fluid in the abdomen. There are multiple sigmoid diverticula. I se e no diverticulitis. There is no evidence of pneumoperitoneum. Lumbar vertebra have fairly normal spacing and alignment. Posterior elements are intact. Bony pelvis is intact. Hip joints are intact. IMPRESSION: There is pulmonary edema which is slightly improved compared to old exam. There is evidence of a new posterior pneumomediastinum compared to old exam. There is air around the lower thoracic esophagus. Decreased excretion on the delayed images suggestive of some degree of renal failure. There is small amount of abdominal ascites fluid of uncertain significance. No evidence of a bowel obstruction. This exam was discussed with the patient's attending staff Bhaskar on the floor at 12:45 AM.
[2020-12-08] MEDS: ARTIFICIAL TEARS-HYPROMELLOSE DROPS 15 ML BTL BOTH EYES SCH ×6 (00:56→20:37)
[2020-12-08 01:05] LABS: Anisocytosis Slight; HCT 22.4 % (39.0-53.0); MCH 30.8 pg (25.0-35.0); MCHC 34.8 g/dL (31.0-37.0); MCV 88.5 fL (80.0-100.0); Mean Platelet Volume 9.9; Poikilocytosis Slight; RBC 2.53 m/uL (4.30-5.90); RDW 16.3 % (11.5-15.5)
[2020-12-08 01:09] LABS: HGB 7.8 gm/dL (13.0-17.5); Platelet Count 57 k/uL (150-450)
[2020-12-08] MEDS: INSULIN ASPART (NovoLOG) 100 UNIT/ML VIAL SQ SCH ×6 (01:10→23:27)
[2020-12-08 01:38] LABS: Band Neutrophils % 10 %; Metamyelocytes # (M) 2.74 k/uL (0); Metamyelocytes % 11 %; Myelocytes # (M) 0.25 k/uL (0); Myelocytes % 1 %; Neutrophils % (M) 78 %; Nucleated Red Blood Cells 3 /100 WBC (0-0); Total Cells Counted 200; WBC 24.9 k/uL (3.8-10.6)
[2020-12-08 01:39] LABS: Anisocytosis (M) Present; Polychromasia Present
[2020-12-08 05:07] LABS: ABG Base Excess -12.8 mmol/L; ABG HCO3 16 mmol/L (21-25); ABG Oxygen Saturation 98.4 % (94-97); ABG PCO2 49 mmHg (35-45); ABG PO2 129 mmHg (83-108); ABG TCO2 18 mmol/L (19-24); Allen Test Performed? Yes
[2020-12-08 05:09] LABS: ABG PH 7.13 (7.35-7.45)
[2020-12-08] MEDS: CISATRACURIUM 200 MG in SODIUM CHLORIDE 0.9% 180 ML IV SCH (05:14)
[2020-12-08] MEDS: NOREPINEPHRINE 32 MG in SODIUM CHLORIDE 0.9% 218 ML IV SCH ×3 (05:14→20:05)
[2020-12-08] MEDS: SODIUM CHLORIDE 0.9% 150 ML with VASOPRESSIN 60 UNIT IV SCH ×2 (05:15)
[2020-12-08 05:37] LABS: Glucose,Whole Blood 180 mg/dL (75-99)
[2020-12-08 05:55] LABS: HCT 33.3 % (39.0-53.0); MCH 31.3 pg (25.0-35.0); MCHC 34.5 g/dL (31.0-37.0); MCV 90.9 fL (80.0-100.0); Mean Platelet Volume 10.7; Poikilocytosis Slight; RBC 3.67 m/uL (4.30-5.90); RDW 15.9 % (11.5-15.5); WBC 32.9 k/uL (3.8-10.6)
[2020-12-08 05:57] LABS: HGB 11.5 gm/dL (13.0-17.5); Platelet Count 55 k/uL (150-450)
[2020-12-08] MEDS: SODIUM CHLORIDE 0.9% 1,000 ML IV SCH ×3 (05:58→20:34)
--- NOTE | 2020-12-08 06:47 | XR ---
EXAMINATION TYPE: XR chest 1V portable DATE OF EXAM: 12/08/2020 CLINICAL HISTORY: Difficulty breathing progress study. TECHNIQUE: Single AP portable semiupright view of the chest is obtained. COMPARISON: Chest x-ray from one day earlier and older studies. FINDINGS: Stable somewhat low-lying endotracheal tube. Stable orogastric tube. Stable right subclavi an central venous catheter. Stable left-sided PICC line. Low lung volumes with bilateral multifocal and confluent opacities redemonstrated. Cardiac silhouette size is stable and within normal limits. Osseous structures are intact. IMPRESSION: Low lung volumes with bilateral multifocal and confluent opacities consistent with known covid-19 infection, no significant change from one day earlier. Low-lying endotracheal tube redemonst rated.
[2020-12-08] MEDS: ALBUTEROL HFA INHALER INHALATION PRN ×4 (07:28→19:23)
[2020-12-08] MEDS ORDERED: VANCOMYCIN IV PER PHARMACY 1 EACH MISC MISCELLANE PRN (07:36)
[2020-12-08] MEDS ORDERED: SODIUM CHLORIDE 0.9% 2,000 ML IV ONE (07:49)
--- NOTE | 2020-12-08 07:55 | P.PN ---
Subjective Progress Note Date: 12/08/20 12/08/2020, the patient is intubated on a mechanical ventilator. Events from yesterday were noted and as mentioned, the patient decompensated. The patient had significant amount of GI bleeding and subsequently became progressively more hypotensive and tachypneic and hypoxic, failed BiPAP therapy and at that point he was intubated and placed on a mechanical ventilator. At the same time, aggressive the suspicion was done over the past 24 hours. In summary, the patient is currently sedated and paralyzed. He is currently on propofol running at 35 mcg/kg per minute. Patient is also on Nimbex at 2 mcg/kg per minute. Adequately sedated. Adequately paralyzed. On assist-control mode of mechanical ventilation. Rate of 38 and a tidal volume of 375, FiO2 of 50% with a PEEP of 16. DTR pressure is 39. Static pressure is 38. Chest x-ray is consistent with Coumadin associated pneumonia with diffuse bilateral pulmonary infiltrates. Blood Today Shows Permissive Hypercapnia with a pH of 7.13 with a PCO2 of 49 and PO2 of 129. In Regards to His Hemodynamics, the Patient Was Bleeding. He Was Given [facility]. He Was Given packed RBC transfusion and overall he received a total of 4 units of packed RBCs. Hemoglobin has been fluctuating. Nevertheless, the lowest hemoglobin that was reported in the records is that 7.8 and the most recent hemoglobin from this morning is at 11.5. During the process, the repeated CBC is also dropped showed a drop in the platelet count which is as low as 55. As far as the coagulation profile, the patient had a INR of 1.3 with a PT of 13.2 and a PTT of 25. Following his massive GI bleed yesterday, he did not have any further episodes. In fact his last bleed was yesterday at around noontime. Currently has a OG tube in place. No active bleeding from his orogastric tube. Despite this aggressive resuscitation and despite being given a total of 8 L of fluid, the patient remained hypotensive. Most recent systolic blood pressures around 70. He is currently on large dose of norepinephrine running at 1 mcg/kg per minute and he is also on vasopressin at 0.04 units an hour. Overall urine output has been 200 mL since yesterday. There may be a component of septic component and the patient was started on IV cefepime yesterday. The abdomen is soft. A CAT scan of the abdomen was done and it showed no acute abnormalities. There was limited limited pneumomediastinum noted on the CAT scan of the abdomen and a chest x-ray from today shows no evidence of any pneumothorax. As such, the exact reason for this massive shock is not clear. It could be septic. Protest on a level was at 0.2. White cell count is on the rise and current white cell count is at 32.9. The patient's cultures of been all negative. He had a spike of temperature of 101. Note that the patient was on a combination of steroids and Baricitinib. He has completed his Baricitinib and currently he remains on IV Solu Medrol. Family has been informed. Atelectatic discussion with his and his son at the bedside. He is currently off anticoagulation. Cardiac rhythm is sinus and the patient remains in sinus tachycardia. Enterofeeding is currently on hold. Objective - Vital Signs Vital signs: Vital Signs Temp 101.2 F H 12/08/20 04:30 Pulse 147 H 12/08/20 07:15 Resp 38 H 12/08/20 07:15 BP 82/60 12/08/20 03:39 Pulse Ox 95 12/08/20 07:15 Intake & Output 12/07/20 12/08/20 12/08/20 18:59 06:59 18:59 Intake Total 8443.520 2653.486 156 Output Total 1535 575 20 Balance 6908.520 2078.486 136 Weight 108.2 kg 121.5 kg Intake: IV 6518 1872 156 Pressure bags 18 72 6 Sodium Chloride 0.9% 1, 1500 1800 150 000 ml @ 150 mls/hr IV . Q6H40M [facility] Rx#:[id number] Sodium Chloride 0.9% 2, 5000 000 ml @ 999 mls/hr IV . Q2H1M [facility] Rx#:[id number] Intake, IV Titration 995.520 471.486 Amount Cisatracurium 200 mg In 24.994 169.225 Sodium Chloride 0.9% 180 ml @ 1 MCG/KG/MIN 6.492 mls/hr IV .Q24H [facility] Rx#: [id number] Norepinephrine 32 mg In 250.000 Sodium Chloride 0.9% 218 ml @ 0.75 MCG/KG/MIN 38. 039 mls/hr IV .Q6H35M [facility] Rx#:[id number] Norepinephrine 4 mg In 666.927 Sodium Chloride 0.9% 250 ml @ 0.05 MCG/KG/MIN 20. 612 mls/hr IV .[id number] [facility] Rx#:[id number] Norepinephrine 8 mg In 226.116 Sodium Chloride 0.9% 250 ml @ 0.05 MCG/KG/MIN 10. 468 mls/hr IV .Q24H [facility] Rx#:[id number] Sodium Chloride 0.9% 1, 50 000 ml @ 150 mls/hr IV . Q6H40M [facility] Rx#:[id number] propofoL 1,000 mg In 27.483 52.261 Empty Bag 1 bag @ Titrate IV .Q0M [facility] Rx#: [id number] Blood Product 930 310 Rc As-1 Unit 310 [id number] Rc As-1 Unit 310 [id number] Rc Irr As1 Unit 310 [id number] Rc Irr As1 Unit 310 [id number] Output: Urine 735 575 20 Stool 800 Other: Voiding Method Indwelling Catheter Indwelling Catheter # Voids 0 ABP, PAP, CO, CI - Last Documented Arterial Blood Pressure 70/52 - Exam GENERAL EXAM: Intubated on mechanical ventilator and the patient is sedated and paralyzed. Orotracheal and orogastric tube are both in place. HEAD: Normocephalic/atraumatic. EYES: Normal reaction of pupils, equal size. Conjunctiva pink, sclera white. NOSE: Clear with pink turbinates. THROAT: No erythema or exudates. NECK: No masses, no JVD, no thyroid enlargement, no adenopathy. CHEST: No chest wall deformity. Symmetrical expansion. LUNGS: Equal air entry with crackles in the bilateral posterior bases CVS: regular rate and rhythm, normal S1 and S2, no gallops, no murmurs, no rubs ABDOMEN: Soft, nontender. No hepatosplenomegaly, normal bowel sounds, no guarding or rigidity. EXTREMITIES: No clubbing, no edema, no cyanosis, and the patient has diminished pulses in all 4 extremities MUSCULOSKELETAL: Muscle strength and tone normal. SPINE: No scoliosis or deformity SKIN: No rashes CENTRAL NERVOUS SYSTEM: Cannot be assessed as the patient is currently sedated and paralyzed. PSYCHIATRIC: Cannot be assessed - Labs CBC & Chem 7: 12/08/20 05:37 12/07/20 16:08 Labs: Abnormal Lab Results - Last 24 Hours (Table) 12/07/20 12/07/20 12/07/20 Range/Units 04:05 04:05 04:05 WBC (3.8-10.6) k/uL RBC (4.30-5.90) m/uL Hgb (13.0-17.5) gm/dL Hct (39.0-53.0) % RDW (11.5-15.5) % Plt Count 94 L (150-450) k/uL Neutrophils # (Manual) 19.20 H (1.3-7.7) k/uL Metamyelocytes # (Man) (0) k/uL Myelocytes # (Manual) (0) k/uL Nucleated RBCs (0-0) /100 WBC PT (9.0-12.0) sec INR (<1.2) ABG pH (7.35-7.45) ABG pCO2 (35-45) mmHg ABG pO2 (83-108) mmHg ABG HCO3 (21-25) mmol/L ABG Total CO2 (19-24) mmol/L ABG O2 Saturation (94-97) % ABG Lactic Acid (0.5-1.6) mmol/L Potassium (3.5-5.1) mmol/L Chloride (98-107) mmol/L Carbon Dioxide (22-30) mmol/L BUN (9-20) mg/dL Glucose (74-99) mg/dL POC Glucose (mg/dL) (75-99) mg/dL Plasma Lactic Acid Kadeem (0.7-2.0) mmol/L Calcium (8.4-10.2) mg/dL AST 69 H (17-59) U/L ALT 200 H (4-49) U/L Troponin I (0.000-0.034) ng/mL Total Protein 3.4 L (6.3-8.2) g/dL Albumin 1.7 L (3.5-5.0) g/dL Procalcitonin 0.23 H (0.02-0.09) ng/mL Crossmatch 12/07/20 12/07/20 12/07/20 Range/Units 08:46 10:06 10:06 WBC (3.8-10.6) k/uL RBC (4.30-5.90) m/uL Hgb (13.0-17.5) gm/dL Hct (39.0-53.0) % RDW (11.5-15.5) % Plt Count (150-450) k/uL Neutrophils # (Manual) (1.3-7.7) k/uL Metamyelocytes # (Man) (0) k/uL Myelocytes # (Manual) (0) k/uL Nucleated RBCs (0-0) /100 WBC PT (9.0-12.0) sec INR (<1.2) ABG pH (7.35-7.45) ABG pCO2 (35-45) mmHg ABG pO2 (83-108) mmHg ABG HCO3 (21-25) mmol/L ABG Total CO2 (19-24) mmol/L ABG O2 Saturation (94-97) % ABG Lactic Acid (0.5-1.6) mmol/L Potassium (3.5-5.1) mmol/L Chloride (98-107) mmol/L Carbon Dioxide (22-30) mmol/L BUN (9-20) mg/dL Glucose (74-99) mg/dL POC Glucose (mg/dL) 173 H (75-99) mg/dL Plasma Lactic Acid Kadeem 2.9 H* (0.7-2.0) mmol/L Calcium (8.4-10.2) mg/dL AST (17-59) U/L ALT (4-49) U/L Troponin I (0.000-0.034) ng/mL Total Protein (6.3-8.2) g/dL Albumin (3.5-5.0) g/dL Procalcitonin (0.02-0.09) ng/mL Crossmatch See Detail 12/07/20 12/07/20 12/07/20 Range/Units 10:06 12:25 12:30 WBC 23.2 H (3.8-10.6) k/uL RBC 2.85 L (4.30-5.90) m/uL Hgb 8.7 L (13.0-17.5) gm/dL Hct 25.5 L (39.0-53.0) % RDW (11.5-15.5) % Plt Count 64 L (150-450) k/uL Neutrophils # (Manual) 19.70 H (1.3-7.7) k/uL Metamyelocytes # (Man) 0.70 H (0) k/uL Myelocytes # (Manual) (0) k/uL Nucleated RBCs 2 H (0-0) /100 WBC PT 15.4 H (9.0-12.0) sec INR 1.5 H (<1.2) ABG pH 7.17 L* (7.35-7.45) ABG pCO2 53 H (35-45) mmHg ABG pO2 237 H (83-108) mmHg ABG HCO3 19 L (21-25) mmol/L ABG Total CO2 (19-24) mmol/L ABG O2 Saturation 99.9 H (94-97) % ABG Lactic Acid (0.5-1.6) mmol/L Potassium (3.5-5.1) mmol/L Chloride (98-107) mmol/L Carbon Dioxide (22-30) mmol/L BUN (9-20) mg/dL Glucose (74-99) mg/dL POC Glucose (mg/dL) (75-99) mg/dL Plasma Lactic Acid Kadeem (0.7-2.0) mmol/L Calcium (8.4-10.2) mg/dL AST (17-59) U/L ALT (4-49) U/L Troponin I (0.000-0.034) ng/mL Total Protein (6.3-8.2) g/dL Albumin (3.5-5.0) g/dL Procalcitonin (0.02-0.09) ng/mL Crossmatch 12/07/20 12/07/20 12/07/20 Range/Units 14:01 14:31 15:40 WBC 32.1 H (3.8-10.6) k/uL RBC 3.79 L (4.30-5.90) m/uL Hgb 11.1 L (13.0-17.5) gm/dL Hct 34.6 L (39.0-53.0) % RDW (11.5-15.5) % Plt Count 58 L (150-450) k/uL Neutrophils # (Manual) (1.3-7.7) k/uL Metamyelocytes # (Man) (0) k/uL Myelocytes # (Manual) (0) k/uL Nucleated RBCs (0-0) /100 WBC PT (9.0-12.0) sec INR (<1.2) ABG pH (7.35-7.45) ABG pCO2 (35-45) mmHg ABG pO2 (83-108) mmHg ABG HCO3 (21-25) mmol/L ABG Total CO2 (19-24) mmol/L ABG O2 Saturation (94-97) % ABG Lactic Acid (0.5-1.6) mmol/L Potassium (3.5-5.1) mmol/L Chloride (98-107) mmol/L Carbon Dioxide (22-30) mmol/L BUN (9-20) mg/dL Glucose (74-99) mg/dL POC Glucose (mg/dL) 214 H (75-99) mg/dL Plasma Lactic Acid Kadeem 3.5 H* (0.7-2.0) mmol/L Calcium (8.4-10.2) mg/dL AST (17-59) U/L ALT (4-49) U/L Troponin I (0.000-0.034) ng/mL Total Protein (6.3-8.2) g/dL Albumin (3.5-5.0) g/dL Procalcitonin (0.02-0.09) ng/mL Crossmatch 12/07/20 12/07/20 12/07/20 Range/Units 16:08 16:08 18:04 WBC (3.8-10.6) k/uL RBC (4.30-5.90) m/uL Hgb (13.0-17.5) gm/dL Hct (39.0-53.0) % RDW (11.5-15.5) % Plt Count (150-450) k/uL Neutrophils # (Manual) (1.3-7.7) k/uL Metamyelocytes # (Man) (0) k/uL Myelocytes # (Manual) (0) k/uL Nucleated RBCs (0-0) /100 WBC PT (9.0-12.0) sec INR (<1.2) ABG pH (7.35-7.45) ABG pCO2 (35-45) mmHg ABG pO2 (83-108) mmHg ABG HCO3 (21-25) mmol/L ABG Total CO2 (19-24) mmol/L ABG O2 Saturation (94-97) % ABG Lactic Acid (0.5-1.6) mmol/L Potassium 5.4 H (3.5-5.1) mmol/L Chloride 115 H (98-107) mmol/L Carbon Dioxide 21 L (22-30) mmol/L BUN 55 H (9-20) mg/dL Glucose 225 H (74-99) mg/dL POC Glucose (mg/dL) 203 H (75-99) mg/dL Plasma Lactic Acid Kadeem (0.7-2.0) mmol/L Calcium 5.4 L* (8.4-10.2) mg/dL AST (17-59) U/L ALT (4-49) U/L Troponin I 0.157 H* (0.000-0.034) ng/mL Total Protein (6.3-8.2) g/dL Albumin (3.5-5.0) g/dL Procalcitonin (0.02-0.09) ng/mL Crossmatch 12/07/20 12/07/20 12/07/20 Range/Units 20:46 20:54 21:35 WBC 29.3 H (3.8-10.6) k/uL RBC 3.05 L (4.30-5.90) m/uL Hgb 9.3 L D (13.0-17.5) gm/dL Hct 26.6 L (39.0-53.0) % RDW 16.0 H (11.5-15.5) % Plt Count 56 L (150-450) k/uL Neutrophils # (Manual) (1.3-7.7) k/uL Metamyelocytes # (Man) (0) k/uL Myelocytes # (Manual) (0) k/uL Nucleated RBCs (0-0) /100 WBC PT 13.2 H (9.0-12.0) sec INR 1.3 H (<1.2) ABG pH (7.35-7.45) ABG pCO2 (35-45) mmHg ABG pO2 (83-108) mmHg ABG HCO3 (21-25) mmol/L ABG Total CO2 (19-24) mmol/L ABG O2 Saturation (94-97) % ABG Lactic Acid (0.5-1.6) mmol/L Potassium (3.5-5.1) mmol/L Chloride (98-107) mmol/L Carbon Dioxide (22-30) mmol/L BUN (9-20) mg/dL Glucose (74-99) mg/dL POC Glucose (mg/dL) 192 H (75-99) mg/dL Plasma Lactic Acid Kadeem (0.7-2.0) mmol/L Calcium (8.4-10.2) mg/dL AST (17-59) U/L ALT (4-49) U/L Troponin I (0.000-0.034) ng/mL Total Protein (6.3-8.2) g/dL Albumin (3.5-5.0) g/dL Procalcitonin (0.02-0.09) ng/mL Crossmatch 12/07/20 12/07/20 12/08/20 Range/Units 21:35 22:47 00:40 WBC 24.9 H (3.8-10.6) k/uL RBC 2.53 L (4.30-5.90) m/uL Hgb 7.8 L D (13.0-17.5) gm/dL Hct 22.4 L (39.0-53.0) % RDW 16.3 H (11.5-15.5) % Plt Count 57 L (150-450) k/uL Neutrophils # (Manual) 21.90 H (1.3-7.7) k/uL Metamyelocytes # (Man) 2.74 H (0) k/uL Myelocytes # (Manual) 0.25 H (0) k/uL Nucleated RBCs 3 H (0-0) /100 WBC PT (9.0-12.0) sec INR (<1.2) ABG pH 7.22 L (7.35-7.45) ABG pCO2 47 H (35-45) mmHg ABG pO2 170 H (83-108) mmHg ABG HCO3 19 L (21-25) mmol/L ABG Total CO2 (19-24) mmol/L ABG O2 Saturation 99.4 H (94-97) % ABG Lactic Acid 3.4 H* (0.5-1.6) mmol/L Potassium (3.5-5.1) mmol/L Chloride (98-107) mmol/L Carbon Dioxide (22-30) mmol/L BUN (9-20) mg/dL Glucose (74-99) mg/dL POC Glucose (mg/dL) (75-99) mg/dL Plasma Lactic Acid Kadeem (0.7-2.0) mmol/L Calcium (8.4-10.2) mg/dL AST (17-59) U/L ALT (4-49) U/L Troponin I (0.000-0.034) ng/mL Total Protein (6.3-8.2) g/dL Albumin (3.5-5.0) g/dL Procalcitonin (0.02-0.09) ng/mL Crossmatch 12/08/20 12/08/20 12/08/20 Range/Units 00:40 05:05 05:36 WBC (3.8-10.6) k/uL RBC (4.30-5.90) m/uL Hgb (13.0-17.5) gm/dL Hct (39.0-53.0) % RDW (11.5-15.5) % Plt Count (150-450) k/uL Neutrophils # (Manual) (1.3-7.7) k/uL Metamyelocytes # (Man) (0) k/uL Myelocytes # (Manual) (0) k/uL Nucleated RBCs (0-0) /100 WBC PT (9.0-12.0) sec INR (<1.2) ABG pH 7.13 L* (7.35-7.45) ABG pCO2 49 H (35-45) mmHg ABG pO2 129 H (83-108) mmHg ABG HCO3 16 L (21-25) mmol/L ABG Total CO2 18 L (19-24) mmol/L ABG O2 Saturation 98.4 H (94-97) % ABG Lactic Acid (0.5-1.6) mmol/L Potassium (3.5-5.1) mmol/L Chloride (98-107) mmol/L Carbon Dioxide (22-30) mmol/L BUN (9-20) mg/dL Glucose (74-99) mg/dL POC Glucose (mg/dL) 203 H 180 H (75-99) mg/dL Plasma Lactic Acid Kadeem (0.7-2.0) mmol/L Calcium (8.4-10.2) mg/dL AST (17-59) U/L ALT (4-49) U/L Troponin I (0.000-0.034) ng/mL Total Protein (6.3-8.2) g/dL Albumin (3.5-5.0) g/dL Procalcitonin (0.02-0.09) ng/mL Crossmatch 12/08/20 Range/Units 05:37 WBC 32.9 H (3.8-10.6) k/uL RBC 3.67 L (4.30-5.90) m/uL Hgb 11.5 L D (13.0-17.5) gm/dL Hct 33.3 L (39.0-53.0) % RDW 15.9 H (11.5-15.5) % Plt Count 55 L (150-450) k/uL Neutrophils # (Manual) (1.3-7.7) k/uL Metamyelocytes # (Man) (0) k/uL Myelocytes # (Manual) (0) k/uL Nucleated RBCs (0-0) /100 WBC PT (9.0-12.0) sec INR (<1.2) ABG pH (7.35-7.45) ABG pCO2 (35-45) mmHg ABG pO2 (83-108) mmHg ABG HCO3 (21-25) mmol/L ABG Total CO2 (19-24) mmol/L ABG O2 Saturation (94-97) % ABG Lactic Acid (0.5-1.6) mmol/L Potassium (3.5-5.1) mmol/L Chloride (98-107) mmol/L Carbon Dioxide (22-30) mmol/L BUN (9-20) mg/dL Glucose (74-99) mg/dL POC Glucose (mg/dL) (75-99) mg/dL Plasma Lactic Acid Kadeem (0.7-2.0) mmol/L Calcium (8.4-10.2) mg/dL AST (17-59) U/L ALT (4-49) U/L Troponin I (0.000-0.034) ng/mL Total Protein (6.3-8.2) g/dL Albumin (3.5-5.0) g/dL Procalcitonin (0.02-0.09) ng/mL Crossmatch Assessment and Plan Plan: 1 Acute Covid 19 related pneumonia. The patient became symptomatic approximately 8 days prior to arrival. Presented with worsening shortness of breath and bilateral pneumonia. Patient is not vaccinated. The patient had not received any outpatient treatments for Covid 19 infection. Diagnosis establish ed during this current admission. Started on Bariticinib on 11/15/2020 in view of worsening hypoxic respiratory failure. Patient was outside the window for Remdesivir, no major improvement in the patient's pulmonary findings and the patient's. This patient was being monitored very closely in the intensive care unit. He was on high flow oxygen for quite some time. Subsequently he became progressively more short of breath. He was transitioned to a BiPAP yesterday following a bout of GI bleed and ultimately went into a shock state and currently is intubated on a mechanical ventilator. The necessary ventilator changes were done. Currently is in ARDS and we are going with a low tidal volum e mechanical ventilation with permissive hypercapnia. 2 Acute hypoxic respiratory failure secondary to above 3 Obesity with a BMI of 36. 4 Increased inflammatory markers related to acute COVID-19 pneumonia 5 Increased d-dimer, related to viral pneumonia, , Dopplers of the lower extremity negative, CT angiogram ruled out pulmonary embolism 6 paroxysmal atrial fibrillation with rapid ventricular response, converted into normal sinus rhythm. Currently on no anticoagulants 7 GI bleeding, consider upper GI bleed. Currently off anticoagulation. Coagulation was reversed and the patient's hemoglobin is above 10 based on the most recent hemoglobin count and the patient received a total of 4 units of packed RBC. 8 acute thrombocytopenia, likely consumptive. No clear indication for DIC. The rest of the coagulation profile is within normal limits. 9 shock currently under investigation. Exact cause is not clear to me. Initially I was considering hypovolemic shock secondary to GI bleed. Later on, as the patient was being resuscitated, he continued to be in a shock state. He is currently on high-dose pressors and is also being aggressively resuscitated IV fluids. Sepsis being considered. A septic workup has already been done. Pro calcitonin level is still low. White cell count is elevated and the patient is having fever. A stat echocardiogram will be also done to evaluate his LV function. 10 acute leukocytosis 11 transaminitis related to underlying sepsis/hypotension/shock 12 limited pneumomediastinum as evident on the CAT scan of the abdomen Plan: Continue aggressive fluid resuscitation. The patient will be given additional doses of 2 L of normal saline and albumin 25% 2 Continue antibiotic coverage with Zosyn and vancomycin CAT scan of the abdomen was noted Keep the patient nothing by mouth Continue IV Protonix Check hemoglobin every 4 hours and repeat hemoglobin will be done. Any further drop in hemoglobin below 8 we will need blood transfusion nontender the patient is currently hypotensive and a shock state. We'll obtain a stat echocardiogram. We'll obtain repeat blood cultures. We'll recheck pro calcitonin level. Check pro calcitonin Check 2 sets of blood cultures Remove the PICC line as the patient is a new triple-lumen catheter in place. The catheter for cultures. Recheck Check lactic acid level Continue Solu-Medrol 40 mg IV every 12 Zinc sulfate and vitamin C and vitamin D supplements Monitor oxygenation We'll continue to follow. Condition is still critical. Critical care evaluation , 30 min Time with Patient: Greater than 30
[2020-12-08] MEDS ORDERED: VANCOMYCIN 2,000 MG in SODIUM CHLORIDE 0.9% 500 ML 500 ML IVPB SCH (08:00)
[2020-12-08] MEDS ORDERED: ALBUMIN HUMAN 25% 50 ML in EMPTY BAG 1 BAG IVPB ONE (08:00)
[2020-12-08 08:24] LABS: Albumin 1.7 g/dL (3.5-5.0); Total Bilirubin 1.4 mg/dL (0.2-1.3); Total Protein 3.1 g/dL (6.3-8.2)
[2020-12-08 08:37] LABS: Potassium 6.5 mmol/L (3.5-5.1)
[2020-12-08] MEDS ORDERED: INSULIN REGULAR 100 UNIT/ML VIAL (IV) IV ONE (08:48)
[2020-12-08] MEDS ORDERED: DEXTROSE 50% SYRINGE 50 ML IVP STA (08:49)
[2020-12-08] MEDS ORDERED: SODIUM BICARB 8.4% 50 ML SYR (1 MEQ/ML) IV STA ×2 (08:50)
[2020-12-08] MEDS: PIPERACILLIN-TAZOBACTAM 3.375 GM in SODIUM CHLORIDE 0.9% 100 ML IVPB SCH ×2 (08:59→15:47)
[2020-12-08] MEDS ORDERED: CALCIUM GLUCONATE 2 GM in SODIUM CHLORIDE 0.9% 100 ML IVPB ONE (09:00)
[2020-12-08] MEDS: SODIUM BICARB 8.4% 50 ML SYR (1 MEQ/ML) IV STA ×2 (09:02→09:19)
--- NOTE | 2020-12-08 10:18 | P.NPCON ---
History of Present Illness - Reason for Consult acute renal failure - History of Present Illness Reason for consultation: Acute kidney injury and hyperkalemia History of present illness: Patient is a 60-year-old male seen in renal consultation for acute kidney injury and hyperkalemia. Patient is not creatinine is near 1 and is up to 1.53 today. Potassium level today is up to 6.5. He is acidotic with a bicarbonate level of 15 and a pH of 7.13. Patient was intubated earlier this morning. Patient pr esented to the hospital on 11/14/2020 with cough and shortness of breath that was progressively worsening. He did test positive for cold rate prior to admission. He is currently on maximum dose of Levophed as well as vasopressin. He is receiving normal saline at 1 50 mL an hour. Urine output is about 20-30 mL an hour. Potassium level .5 this morning which was medically treated with IV calcium, IV insulin and D50 as well as sodium bicarb IV push. He is also on empiric antibiotics. Patient is on 50% FiO2. Vital signs: On high-dose vasopressor support. Tachycardic. Febrile. HEENT: Intubated. LUNGS: Breath sounds decreased. HEART: Tachycardic. ABDOMEN: Soft, obese. EXTREMITITES: No edema. Past Medical History Past Medical History: No Reported History History of Any Multi-Drug Resistant Organisms: None Reported Past Surgical History: Joint Replacement Additional Past Surgical History / Comment(s): right shoulder surgry 10 years ago Past Psychological History: No Psychological Hx Reported Smoking Status: Never smoker Past Alcohol Use History: Occasional Past Drug Use History: None Reported Medications and Allergies Home Medications Medication Instructions Recorded Confirmed Type Ascorbic Acid [Vitamin C] 1,000 mg PO DAILY 11/14/20 11/14/20 History Cholecalciferol [Vitamin D3 (25 25 mcg PO DAILY 11/14/20 11/14/20 History Mcg = 1000 Iu)] Fish Oil/Dha/Epa [Fish Oil 1,200 1 cap PO DAILY 11/14/20 11/14/20 History mg Fish Oil] Multivitamins, Thera [Multivitamin 1 tab PO DAILY 11/14/20 11/14/20 History (formulary)] Allergies Allergy/AdvReac Type Severity Reaction Status Date / Time No Known Allergies Allergy Verified 11/14/20 14:47 Physical Exam Vitals: Vital Signs Temp Pulse Pulse Resp BP Pulse Ox 12/08/20 08:00 142 H 38 H 12/08/20 07:45 144 H 12/08/20 07:30 147 H 31 H 12/08/20 07:15 147 H 38 H 95 12/08/20 07:00 147 H 38 H 95 12/08/20 06:45 147 H 38 H 95 12/08/20 06:30 147 H 30 H 95 12/08/20 06:15 146 H 38 H 94 L 12/08/20 06:00 146 H 38 H 95 12/08/20 05:45 146 H 38 H 94 L 12/08/20 05:30 147 H 38 H 94 L 12/08/20 05:15 146 H 38 H 95 12/08/20 05:00 146 H 38 H 94 L 12/08/20 04:45 144 H 38 H 94 L 12/08/20 04:30 101.2 F H 141 H 96 12/08/20 04:15 137 H 98 12/08/20 04:00 138 H 130 H 38 H 98 12/08/20 03:45 137 H 98 12/08/20 03:39 135 H 38 H 82/60 98 12/08/20 03:30 135 H 98 12/08/20 03:15 135 H 99 12/08/20 03:00 135 H 17 99 12/08/20 02:45 135 H 99 12/08/20 02:35 98.2 F 134 H 38 H 74/52 98 12/08/20 02:30 135 H 99 12/08/20 02:15 135 H 99 12/08/20 02:05 98.4 F 135 H 38 H 68/51 98 12/08/20 02:00 135 H 38 H 99 12/08/20 01:55 99.8 F H 135 H 38 H 71/51 100 12/08/20 01:45 135 H 12/08/20 01:30 134 H 12/08/20 01:15 131 H 12/08/20 01:00 130 H 38 H 99 12/08/20 00:45 99.8 F H 126 H 38 H 99/33 99 12/08/20 00:00 126 H 130 H 38 H 12/07/20 23:45 125 H 38 H 99 12/07/20 23:30 131 H 38 H 98 10/01/21 23:15 141 H 98 12/07/20 23:00 140 H 38 H 99 12/07/20 22:45 140 H 38 H 99 12/07/20 22:30 135 H 38 H 99 12/07/20 22:15 135 H 38 H 99 12/07/20 22:00 135 H 30 H 90/33 99 12/07/20 21:45 134 H 38 H 99 12/07/20 21:30 135 H 38 H 99 12/07/20 21:15 130 H 99 12/07/20 21:00 130 H 38 H 99 12/07/20 20:45 128 H 99 12/07/20 20:30 125 H 99 12/07/20 20:15 120 H 99 12/07/20 20:00 97.5 F L 116 H 116 H 38 H 79/54 99 12/07/20 19:45 113 H 38 H 99 12/07/20 19:30 115 H 38 H 99 12/07/20 19:00 118 H 38 H 99 12/07/20 18:45 121 H 38 H 99 12/07/20 18:30 133 H 38 H 67/47 99 12/07/20 18:15 144 H 38 H 99 12/07/20 18:00 140 H 39 H 99 12/07/20 17:45 125 H 38 H 99 12/07/20 17:30 126 H 38 H 100 12/07/20 17:15 125 H 38 H 99 12/07/20 17:00 97.3 F L 122 H 38 H 100 12/07/20 16:45 118 H 38 H 99 12/07/20 16:30 120 H 38 H 98 12/07/20 16:15 121 H 38 H 98 12/07/20 16:00 122 H 38 H 97 12/07/20 15:45 120 H 38 H 96 12/07/20 15:30 123 H 38 H 97 12/07/20 15:15 126 H 38 H 99 12/07/20 15:00 125 H 38 H 99 12/07/20 14:55 98.9 F 125 H 38 H 96/73 99 12/07/20 14:45 126 H 38 H 99 12/07/20 14:30 128 H 38 H 99 12/07/20 14:15 123 H 38 H 99 12/07/20 14:08 98.5 F 123 H 38 H 114/75 99 12/07/20 14:00 118 H 38 H 100 12/07/20 13:45 116 H 38 H 99 12/07/20 13:38 98.7 F 118 H 38 H 85/62 99 12/07/20 13:30 118 H 38 H 99 12/07/20 13:28 98.4 F 120 H 38 H 83/61 99 12/07/20 13:15 120 H 38 H 97 12/07/20 13:00 115 H 38 H 100 12/07/20 12:45 109 H 38 H 100 12/07/20 12:30 57 H 100 12/07/20 12:25 96.4 F L 108 H 38 H 96/70 100 12/07/20 12:15 102 H 0 L 99 12/07/20 12:04 96.4 F L 102 H 26 H 93/67 95 12/07/20 12:00 104 H 51 H 19 L 12/07/20 11:54 96.6 F L 101 H 25 H 108/74 95 12/07/20 11:50 96.4 F L 109 H 37 H 77/68 96 12/07/20 11:47 96.4 F L 105 H 40 H 79/69 96 12/07/20 11:45 101 H 38 H 100 12/07/20 11:37 96.9 F L 108 H 38 H 83/56 100 12/07/20 11:30 110 H 41 H 112/68 99 12/07/20 11:15 123 H 34 H 78/55 12/07/20 11:00 111 H 35 H 79/40 100 12/07/20 10:45 106 H 26 H 80/68 100 12/07/20 10:30 112 H 24 115/97 100 12/07/20 10:15 118 H 43 H 84/53 100 Intake and Output 12/07/20 12/08/20 12/08/20 22:59 06:59 14:59 Intake Total 3640.690 2009.389 312 Output Total 405 360 40 Balance 3235.690 1649.389 272 Intake: IV 3242 1248 312 Pressure bags 42 48 12 Sodium Chloride 0.9% 1, 1200 1200 300 000 ml @ 150 mls/hr IV . Q6H40M [facility] Rx#:[id number] Sodium Chloride 0.9% 2, 2000 000 ml @ 999 mls/hr IV . Q2H1M [facility] Rx#:[id number] Intake, IV Titration 398.690 451.389 Amount Cisatracurium 200 mg In 24.994 169.225 Sodium Chloride 0.9% 180 ml @ 1 MCG/KG/MIN 6.492 mls/hr IV .Q24H [facility] Rx#: [id number] Norepinephrine 32 mg In 67.836 182.164 Sodium Chloride 0.9% 218 ml @ 0.75 MCG/KG/MIN 38. 039 mls/hr IV .Q6H35M [facility] Rx#:[id number] Norepinephrine 8 mg In 226.116 Sodium Chloride 0.9% 250 ml @ 0.05 MCG/KG/MIN 10. 468 mls/hr IV .Q24H [facility] Rx#:[id number] propofoL 1,000 mg In 79.744 100 Empty Bag 1 bag @ Titrate IV .Q0M [facility] Rx#: [id number] Blood Product 310 Rc As-1 Unit 310 [id number] Output: Urine 405 360 40 Other: Voiding Method Indwelling Catheter Indwelling Catheter Weight 121.5 kg ABP, PAP, CO, CI - Last 8 Hours Arterial Blood Pressure 75/54 Arterial Blood Pressure 71/52 Arterial Blood Pressure 68/52 Arterial Blood Pressure 70/52 Arterial Blood Pressure 68/52 Arterial Blood Pressure 70/53 Arterial Blood Pressure 73/54 Arterial Blood Pressure 73/52 Arterial Blood Pressure 77/55 Arterial Blood Pressure 65/50 Arterial Blood Pressure 70/55 Arterial Blood Pressure 71/55 Arterial Blood Pressure 68/54 Arterial Blood Pressure 77/62 Arterial Blood Pressure 76/60 Arterial Blood Pressure 76/57 Arterial Blood Pressure 73/57 Arterial Blood Pressure 88/64 Arterial Blood Pressure 81/59 Arterial Blood Pressure 74/55 Arterial Blood Pressure 81/58 Arterial Blood Pressure 66/58 Arterial Blood Pressure 67/55 Arterial Blood Pressure 70/53 Results - Lab Results Most recent lab results ABG pH 7.13 (7.35-7.45) L* 12/08/20 05:05 ABG pCO2 49 mmHg (35-45) H 12/08/20 05:05 ABG pO2 129 mmHg (83-108) H 12/08/20 05:05 ABG HCO3 16 mmol/L (21-25) L 12/08/20 05:05 ABG O2 Saturation 98.4 % (94-97) H 12/08/20 05:05 Calcium 7.0 mg/dL (8.4-10.2) L 12/08/20 05:37 Phosphorus 4.7 mg/dL (2.5-4.5) H 11/26/20 04:18 Magnesium 2.3 mg/dL (1.6-2.3) 11/26/20 04:18 12/08/20 05:37 12/08/20 05:37 Assessment and Plan Plan: Assessment: 1. Acute kidney injury secondary to ATN secondary to septic shock. Baseline creatinine near 1 and is up to 1.53 today. Urine output 20-30 mL an hour. Patient also received IV contrast dye this morning for CT of the abdomen and pel vis. No hydronephrosis was noted. 2. Hyperkalemia secondary to acute kidney injury and metabolic acidosis. 3. Metabolic acidosis secondary to acute kidney injury. 4. Septic shock secondary to COVID-19 infection. Also consent for superimposed bacterial infection. On Levophed and vasopressin. 5. Acute hypoxic respiratory failure. 6. Shock liver. Plan: Change normal saline to isotonic sodium bicarbonate drip to be run at 1 50 mL an hour. Repeat potassium level at noon. Wean FiO2 and vasopressors. Follow-up cultures. Continue to monitor renal function and urine output. Continue to assess daily for need for renal replacement therapy. Patient is currently hemodynamically unstable to tolerate renal replacement therapy but if his potassium level is not improving, will attempt SLED. Thank you for the consultation. I will continue to follow the patient with you during his hospital stay.
[2020-12-08] MEDS: DEXTROSE 5% IN WATER 1,000 ML with SODIUM BICARB (1 MEQ/ML) 150 ML IV SCH ×2 (11:00→19:55)
[2020-12-08 11:09] LABS: INR 1.7 (<1.2); Partial Thromboplastin Time 32.8 sec (22.0-30.0); Prothrombin Time 16.7 sec (9.0-12.0)
[2020-12-08 11:17] LABS: Glucose,Whole Blood 194 mg/dL (75-99)
[2020-12-08 11:19] LABS: Anisocytosis Slight; HCT 24.6 % (39.0-53.0); MCH 31.3 pg (25.0-35.0); MCHC 34.9 g/dL (31.0-37.0); MCV 89.5 fL (80.0-100.0); Mean Platelet Volume 9.9; Poikilocytosis Slight; RBC 2.74 m/uL (4.30-5.90); RDW 16.2 % (11.5-15.5); WBC 28.5 k/uL (3.8-10.6)
[2020-12-08 11:31] LABS: HGB 8.6 gm/dL (13.0-17.5); Platelet Count 41 k/uL (150-450)
--- NOTE | 2020-12-08 12:08 | P.PN ---
Subjective Progress Note Date: 12/08/20 HISTORY OF PRESENT ILLNESS This is a pleasant 60-year-old gentleman patient of Dr. Ridge Christina. He doesn't see a physician often and does not note any medical diseases, except for obesity. He comes seen secondary to fever and chills, cough, starting December 06 first, along with muscle aches, lack of appetite and diarrhea. he was tested for call bid November 08, which required at week of reporting, subsequently was sent to emergency room secondary to worsening symptoms, including dyspnea on exertion, shortness of breath and worsening cough without hemoptysis. Fever, sh ortness of breath lingers, no treatment given to him prior to this admission. The is vaccinated, but the patient is not. He does not believe in vaccines at that time. He comes in the emergency room, with hypoxemia, with very minimal conversational dyspnea, chest x-ray, shows pulmonary infiltrate consistent with Covid pneumonia, oxygen currently is at 6 L nasal cannula, d-dimer was 0.6, LFTs are minimally elevated, 64 AST, lactic acid 2.0 sodium 132, creatinine of 0.9, glucose of 122, LDH of 888, CRP of 5.7. Urine protein noted, without hematuria or proteinuria. Covid was again retested 11/14, PCR is positive. Consult to Dr. Eduardo and pulmonary,, 11/16: Patient is currently on oxygen at 6 L nasal cannula increased to 7 L with humidified oxygen. Patient seen and followed by pulmonary medicine and has been started on Bariticinib, Decadron 6 mg daily, and prophylactic dose of Lovenox. He is reaching 1750 on incentive spirometry. Patient did have episode of diarrhea yesterday, none today and complains of decreased appetite. Patient complains of nasal congestion and Flonase added. 11/17: Patient had difficulty with oxygenation during the night and this morning transitioned to Airfo and partial nonrebreather. Pulse ox is currently running 90-92%, patient is prone. He has been afebrile, heart rate 88, blood pressure 104/63. Repeat d-dimer is elevated at 0.93. Blood sugar 167. C-reactive protein increased to 5.3. AST is 83 and ALT 51. Blood culture remains with no growth after 48 hours. Repeat chest x-ray reveals mild cardiomegaly with bilateral multifocal opacities consistent with Covid 19 infection. No significant change from most recent x-ray. Albuterol inhaler and Symbicort inhaler added. 11/18: Patient is currently on AirVo and nonrebreather with pulse ox of 93%. He's been afebrile, heart rate 85, blood pressure 103/68. Blood culture no growth at 72 hours 2 specimens. Plan to continue proning. Repeat laboratory studies ordered for tomorrow including inflammatory markers. The patient is having difficulty sleeping and melatonin added. Lovenox increased to twice daily dosing. 11/19: Patient remains in isolation. He is on AirVO plus nonrebreather with pulse ox of 93%. He has been afebrile, heart rate 85, blood pressure 122/69. Patient is found sitting in recliner and encouraged to prone when he is able to. Repeat blood work reveals WBC 12, hemoglobin 14.8, platelet count 282. D-dimer is 1.38. Other blood work is pending. Patient is continued on Decadron, vitamin supplements, Lovenox. He is on day #07/20 of Baricitinib. 11/20: Patient has been afebrile, heart rate 71, blood pressure 107/71, pulse ox 88-93% on AirVo plus nonrebreather. Patient seems to be depressed and frustrated with coarse. Noted that he started on Xanax yesterday by pulmonary. We will add and Remeron 7.5 mg at bedtime. Hemoglobin A1c came back at 6.4. Patient is encouraged to use incentive spirometry, increase activity, prone. Discussed CODE STATUS with patient and he wishes to be a full code. 11/21: Patient will pulse ox of 83% as he was on Airvo only and once nonrebreather was placed she went up to 89%. Patient is not eating much. He has been encouraged to take protein supplement, increase activity and prone but patient does not seem motivated. He was started on Remeron last night which will hopefully help with his mood and appetite. He has continued on Lovenox, dexamethasone, Baricitinib #09/19 repeat blood work reveals WBC 14.3. D-dimer increasing to 3.2. Electrolytes normal, creatinine 0.76. LDH is high at 1476, C-reactive protein stable 6.6. 11/22: Patient continues to be on airflow and nonrebreather and with minimal movement, pulse ox drops down to 82%, otherwise patient is maintaining 92-94%. One dose of IV Lasix ordered for today. Temperature max yesterday afternoon was 101.2. Heart rate in the 70s and 80s. Blood pressure 110/59. Urinalysis was negative for infection. Repeat blood work will be ordered for tomorrow. 11/23: Patient Was moved into ICU overnight. He has been on BiPAP through the night and pulse oxing 95% recently on his side, currently sitting on the edge of the bed pulse oxing 90%, with talking he drops to 83%. He is scheduled for PICC line insertion and plan to start TPN today. Patient has been afebrile, heart rate in the 60s, respiratory rate 28. WBC 12.0, hemoglobin 15, platelet count 351. Lymphocytes 11.1. D-dimer 2.46. Sodium 136, otherwise electrolytes are normal. BUN 30 creatinine 0.7. Blood sugar 128. Magnesium 2.5. Phosphorus 5.5. LDH 1691. C-reactive protein 13.4. Total protein 5.6. Blood cultures remain with no growth. Repeat chest x-ray this morning reveals stable diffuse bilateral infiltrates. Patient is on Baricitinib 10/20. Pulmonary has increased frequency of dexamethasone to twice daily and changed to IV6 mg IV twice daily. 11/24: Patient remain in the ICU, still on BiPAP with pulse ox is improving at this point. Continue dexamethasone and Baricitinib 11/20, patient had full meal this morning his TPN will be suspended after today. Patient will remain in the ICU at least for the next 48 hours. 11/25: Remain in the ICU still on BiPAP but his pulse ox is slightly bit better he still on dexamethasone and Baricitinib 12/20 seems to do slightly but better was agreed by intensive care studies TPN, patient oral intake is slightly but better and had slight improvement compared to yesterday. Surprisingly his marker went up slightly bit specially his LDH up to 2086 with C-reactive protein 3.6 kidney function remained good white blood cell climb up to 15.1 specially been on steroid. Chest x-ray still shows diffuse bilateral interstitial infiltrate and patchy opacification persistent but there is a slight improvement in the variation in the left lower lobe compared to few days earlier. 11/26: Patient remain on BiPAP with 100% oxygen to keep his pulse ox around 92 percentile, his d-dimer continue to be quite bit elevated today is having Doppler of the lower extremity but notes CT at this point. Remain on Symbicort, and albuterol HFA, his white blood cell is down 17,000, blood sugars better control. Chest x-ray still showed patchy infiltrate throughout both lung felix persistent didn't change. Patient had mild anxiety with no pain currently. 11/27: Patient remains in the intensive care unit. He is placed on airflow for eating and pulse ox drops to the 7083 percent range. Pulse ox 90-93% on100% BiPAP. He is afebrile, heart rate in the 70s, respiratory rate 27 and 32, blood pressure 102/71. WBC 21.5, lymphocytes 0.6. D-dimer 7.29. Blood sugars running between 111 and 171. Ferritin level [id number]. ALT 54, alkaline phosphatase 152. CK 27, C-reactive protein 2.9. Repeat chest x-ray reveals borderline cardiomegaly with prominent pulmonary vascular markings. Diffuse increased lung markings are present. Correlate for heart failure. Atypical pneumonia should be considered. Lower extremity ultrasound negative for DVT bilaterally. 11/28: Patient remains in the intensive care unit and found sitting in a chair at the bedside. He is continued on BiPAP and switched over to Arava and nonrebreather for meals. Repeat chest x-ray essentially unchanged. Repeat blood work reveals WBC 20.4, hemoglobin 14.8, platelet count 130. Sodium 134, potassium 4.8, creatinine 0.62. LDH 2934. C-reactive protein 3.3, d-dimer 10.2. CT angiogram of the chest has been ordered by pulmonary medicine which revealed slightly suboptimal study without evidence of acute pulmonary embolism. Mild cardiomegaly with bilateral cities and multifocal organizing consolidations consistent with Covid19 infection. Lovenox has been changed to 40 mg daily and dexamethasone changed to Solu-Medrol 60 mg every 6 hours. Taco michelle has completed course of Baricitinib. 11/29: Patient remains in the intensive care unit, patient is utilizing BiPAP and also Airvo with nonrebreather mask added at times as he tolerates. His ox ygenation seems to be improving at 89-93%. Respiratory rate 24, heart rate 88, blood pressure 107/58. Patient does verbalize that he is feeling somewhat better today. WBC 16.4, hemoglobin 15.1, platelet count 120. D-dimer 13.49, C- reactive protein 2, LDH 2086, CK 47. Repeat chest x-ray reveals correlate for pneumonia, edema or pulmonary hemorrhage, there is cardiomegaly. Patient is currently continued on Lovenox, Solu-Medrol, bronchodilators and vitamin supplements. 11/30: Patient remains in intensive care unit, he sitting in a chair at the bedside. He is feeling a little bit better and breath sounds are sounding a little better from yesterday. He is currently on AirVO. Pulse ox is running 84-87%, he has been afebrile, heart rate in the 80s and 90s, respiratory rate in the 20s, blood pressure 110/67. Repeat blood work reveals WBC 19.4, platelet count 126. D-dimer 10.2, LDH 2157, CK 78, C-reactive protein 1.5. Sodium 135, BUN 44 creatinine 0.73. Patient is continued on Lovenox, IV Solu-Medrol, bronchodilators and supplements. 12/01: Patient remains in ICU, he is currently sitting in chair at the bedside. Patient continues to state that he feels a bit better breath sounds are sounding better compared to yesterday. He is currently on airflow. His pulse ox is running 87-89%, he is still short of breath with conversation. Patient has been afebrile, heart rate 72, respirations 28, blood pressure 109/61. WBC 16.0, hemoglobin 15.1, platelets 112, potassium 4.6, BUN 39, creatinine 0.84. Patient is continued on Lovenox, IV Solu-Medrol, bronchodilators and supplements. 12/02: Patient remains in ICU, he is currently sitting up in a chair at the bedside. Patient continues to have shortness of breath with activity and conversation. His chest x-ray unchanged to prior studies. D-dimer 5.96. Incentive spirometer is at the bedside however encouragement to utilize if needed. Patient has been afebrile, heart rate 85, respirations 28, blood pressure 138/86 pulse ox is 85-89% on Airvo. 12/03, patient remains ICU, he seems to be gradually improving, intending around for the better, has improvement on shortness of breath with conversation, nothing supple she did today for dyspnea, however with movement, he does have shortness of breath while in bed turning around. Patient has an airflow at 65 L, pulse ox 90%. No new fevers, no melena and hematochezia, nutrition is appropriate, and is getting better. 12/04: Patient remains in the intensive care unit. He is onAirVo with nonrebreather mask on standby. He did have a rise in his heart rate up to the 140s, atrial fibrillation with RVR and pulmonary has started the patient on amiodarone drip. He has been afebrile, respiratory rate 28, pulse ox 94-97%. WBC 18.7, hemoglobin 15.5, platelet count 131. Sodium 134, potassium 4.5, chloride 99, CO2 31, BUN 32 and creatinine 0.72. Blood sugars are running between 144 and 193. AST 71, ALT 283, alkaline phosphatase 82. LDH 1946, C- reactive protein 0.6. D-dimer 4.21. Repeat chest x-ray reveals worsening bilateral diffuse interstitial and patchy airspace disease. 12/05: Patient has been taken out of isolation by infection control. He is now on AirVo, FiO2 at 75%. He does have nonrebreather mask on standby but oxygen needs seem to be improving slightly. He seems to be slightly less short of breath. Nephrology has switched him to oral prednisone and off Solu-Medrol. Patient is on eliquis for atrial fibrillation. Heart rate is currently cont rolled and he has been afebrile. Amiodarone has been discontinued, echocardiogram ordered. Pulse ox is 88%, afebrile, blood pressure 111/72 and heart rate in the 80s. satellite project site monitor sinus rhythm. Repeat blood work reveals WBC 20.4, hemoglobin 15.2, platelet count 109. Sodium 135, potassium 4.9, chloride 100, CO2 33, BUN 46 and creatinine 0.84. Blood sugars are running between 133 and 231. LDH 1616. 12/06: Patient had difficult is sleeping last night despite use of Remeron and having back pain issues. Tramadol at bedtime ordered. Patient remains in the intensive care unit, he has been moved out of isolation. He continues to be on airflow with pulse ox in the 80s. Blood pressure is soft this morning 85/53 and 92/67 for which fluid bolus of 500 ML's ordered. He's been afebrile, heart rate in the 80s. satellite project site monitor sinus rhythm. Metoprolol was increased to 25 mg twice daily. Echocardiogram reveals EF of 50-55%. 12/07: She remains in intensive care unit but is doing poorly this morning. He had a large bright red and mostly dark stool last evening and a repeat this morning. Eliquis has been placed on hold, he is very quite vasopressors and started on levo. He is on Protonix 40 mg IV push twice daily. He is scheduled to receive 2 units of packed RBCs for drop in his hemoglobin to 9.4. He is currently receiving 2 L IV fluid bolus. Stool for occult blood was positive. Consult was added for Dr. Ojeda. He is currently on BiPAP at 100% with pulse ox of 100%, heart rate 104, respiratory rate 27, blood pressure 88/51. Other blood work today reveals WBC of 22.6, platelet count of 94. Creatinine 0.82 with BUN of 64. Blood sugars 173. Lactic acid 2.9. INR is 1.5, PTT 25.5, AST 69, ALT 200, LDH 1474. Alkaline phosphatase 57 urinalysis negative for infection. Patient had a previous colonoscopy with Dr. Reyes that was normal. 12/08: Yesterday, patient required intubation was placed on mechanical ventilation after becoming more hypotensive started on vasopressin and norepinephrine and status post 7 L of IV fluid. He is status post transfusion of a total of 4 units of packed RBCs and hemoglobin is currently at 7.8 He has had no further episodes of GI bleeding. Consult with nephrology has been added, potassium came back at 6.5 CAT scan of the abdomen and chest revealed pulmonary edema which is slightly improved. Evidence of new posterior pneumomediastinum, air around the lower thoracic esophagus. Decreased excretion of delayed images small amount of abdominal ascites. No bowel obstruction. Chest x-ray reveals low lung volume with bilateral multifocal and confluent opacities consistent with cold and 19. Patient was seen yesterday by general surgery and patient was tentatively scheduled for EGD and colonoscopy on Sunday 12/10 REVIEW OF SYSTEMS Constitutional: No fever, no chills, no night sweats. Reports weakness, reports fatigue no lethargy. Reports daytime sleepiness. EENT: No headache. No blurred vision or double vision, no loss of vision. No dizziness. No nasal drainage or congestion. No epistaxis. No sore throat. Lungs Reported shortness of breath continues, reported cough, no sputum production. No wheezing. Dyspnea with minimal exertion. dyspnea at rest. Cardiovascular: No chest pain, no lower extremity edema. No palpitations. No paroxysmal nocturnal dyspnea. No orthopnea. No lightheadedness or dizziness. No syncopal episodes. Abdominal: Denies abdominal pain. No nausea, vomiting. Denies diarrhea. No constipation. Reports bloody or tarry stools. Reports loss of appetite. Genitourinary: No dysuria, no increased frequency, no urgency. No urinary retention. Musculoskeletal: No myalgias. Generalized muscle weakness, no gait dysfunction, no frequent falls. Reports back pain. No neck pain. Integumentary: No wounds, no lesions. No rash or pruritus. No unusual bruisi ng. Neurologic: No aphasia. No facial droop. No change in mentation. No head injury. No headache. No paresthesia. Psychiatric: No depression. No anxiety. No mood swings. Insomnia. Reports difficulty sleeping. Endocrine: Noted abnormal blood sugars. PHYSICAL EXAMINATION Gen: This is a 60-year-old obese male sitting up in the ICU room. He is with BiPAP and appears to be fairly comfortable. HEENT: Head is atraumatic, normocephalic. Pupils equal, round. Sclerae is anicteric. NECK: Supple. No JVD. No lymphadenopathy. No thyromegaly. LUNGS: Diminished breath sounds. No wheezes or rhonchi. Mild accessory muscle usage or. HEART: Regular rate and rhythm. No murmur. ABDOMEN: obese. Soft. Bowel sounds are present. No masses. No tenderness. EXTREMITIES: No pedal edema. No calf tenderness. NEUROLOGICAL: Patient is awake, alert and oriented x3. Cranial nerves 2 through 12 are grossly intact. ASSESSMENT AND PLAN 1. Acute respiratory failure: Secondary to COVID-19 requiring intubation and mechanical ventilation, with possible secondary bacterial pneumonia, consult with pulmonary medicine appreciated, continue Ventolin inhaler, 5 Medrol 40 mg IV every 12 hours, Zosyn, vancomycin, vitamin supplements. Patient is off Lovenox/eliquis due to GI bleed. 2. Sepsis (POA) secondary to COVID-19 pneumonia, with acute hypoxemic respiratory failure, diagnosis was of 11/08/2020. 3. Moderate protein calorie malnutrition secondary to poor oral intake. 4. New-onset atrial fibrillation with RVR, paroxysmal atrial fibrillation. Amiodarone drip discontinued, continue Lopressor 12.5 mg twice daily, eliquis placed on hold. Echocardiogram as above. 5. Thrombocytopenia secondary to sepsis. 6. Acute GI bleed. Eliquis placed on hold, 4 units packed RBCs, IV fluid boluses, consult with Dr. Ojeda appreciated. Patient was scheduled for EGD colonoscopy on Sunday 12/10. 7. Acute hypovolemic shock or septic shock requiring vasopressors, massive IV fluid resuscitation. 8. Acute kidney injury with ATN secondary to septic shock. Consult with nephrology appreciated 9. Metabolic acidosis secondary to acute kidney injury. Patient is on bicarb drip followed by nephrology. 10. Severe hyperkalemia secondary to acute kidney injury. Followed by nephrology. Patient may require hemodialysis. IV fluid bolus. 11. Shock liver secondary to hypotension. Monitor liver function test. 12. DVT prophylaxis. 13. GI prophylaxis. Protonic. 14. BPH. 15. Proteinuria, unknown cause. 16. Dymetabolic syndrome, monitor for hyperglycemia, A1c 6.4. NovoLog scale before meals and at bedtime. 17. Back pain. CODE Status: Full code Prognosis: guarded. Impression and plan of care have been directed as dictated by the signing physician. Sanam Valentine nurse practitioner acting as scribe for signing physi paul. Objective - Vital Signs Vital signs: Vital Signs Temp 99.5 F 12/08/20 09:00 Pulse 124 H 12/08/20 11:00 Resp 38 H 12/08/20 11:00 BP 82/60 12/08/20 03:39 Pulse Ox 94 L 12/08/20 11:00 Intake & Output 12/07/20 12/08/20 12/08/20 18:59 06:59 18:59 Intake Total 8443.520 2753.486 312 Output Total 1535 575 40 Balance 6908.520 2178.486 272 Weight 108.2 kg 121.5 kg Intake: IV 6518 1872 312 Pressure bags 18 72 12 Sodium Chloride 0.9% 1, 1500 1800 300 000 ml @ 150 mls/hr IV . Q6H40M [facility] Rx#:[id number] Sodium Chloride 0.9% 2, 5000 000 ml @ 999 mls/hr IV . Q2H1M [facility] Rx#:[id number] Intake, IV Titration 995.520 571.486 Amount Cisatracurium 200 mg In 24.994 169.225 Sodium Chloride 0.9% 180 ml @ 1 MCG/KG/MIN 6.492 mls/hr IV .Q24H [facility] Rx#: [id number] Norepinephrine 32 mg In 250.000 Sodium Chloride 0.9% 218 ml @ 0.75 MCG/KG/MIN 38. 039 mls/hr IV .Q6H35M [facility] Rx#:[id number] Norepinephrine 4 mg In 666.927 Sodium Chloride 0.9% 250 ml @ 0.05 MCG/KG/MIN 20. 612 mls/hr IV .[id number] [facility] Rx#:[id number] Norepinephrine 8 mg In 226.116 Sodium Chloride 0.9% 250 ml @ 0.05 MCG/KG/MIN 10. 468 mls/hr IV .Q24H [facility] Rx#:[id number] Sodium Chloride 0.9% 1, 50 000 ml @ 150 mls/hr IV . Q6H40M [facility] Rx#:[id number] propofoL 1,000 mg In 27.483 152.261 Empty Bag 1 bag @ Titrate IV .Q0M [facility] Rx#: [id number] Blood Product 930 310 Rc As-1 Unit 310 [id number] Rc As-1 Unit 310 [id number] Rc Irr As1 Unit 310 [id number] Rc Irr As1 Unit 310 [id number] Output: Urine 735 575 40 Stool 800 Other: Voiding Method Indwelling Catheter Indwelling Catheter # Voids 0 ABP, PAP, CO, CI - Last Documented Arterial Blood Pressure 109/55 - Labs CBC & Chem 7: 12/08/20 10:45 12/08/20 10:45 Labs: Abnormal Lab Results - Last 24 Hours (Table) 12/07/20 12/07/20 12/07/20 Range/Units 04:05 10:06 10:06 WBC (3.8-10.6) k/uL RBC (4.30-5.90) m/uL Hgb (13.0-17.5) gm/dL Hct (39.0-53.0) % RDW (11.5-15.5) % Plt Count (150-450) k/uL Neutrophils # (Manual) (1.3-7.7) k/uL Metamyelocytes # (Man) (0) k/uL Myelocytes # (Manual) (0) k/uL Nucleated RBCs (0-0) /100 WBC PT (9.0-12.0) sec INR (<1.2) APTT (22.0-30.0) sec ABG pH (7.35-7.45) ABG pCO2 (35-45) mmHg ABG pO2 (83-108) mmHg ABG HCO3 (21-25) mmol/L ABG Total CO2 (19-24) mmol/L ABG O2 Saturation (94-97) % ABG Lactic Acid (0.5-1.6) mmol/L Potassium (3.5-5.1) mmol/L Chloride (98-107) mmol/L Carbon Dioxide (22-30) mmol/L BUN (9-20) mg/dL Creatinine (0.66-1.25) mg/dL Glucose (74-99) mg/dL POC Glucose (mg/dL) (75-99) mg/dL Plasma Lactic Acid Kadeem 2.9 H* (0.7-2.0) mmol/L Calcium (8.4-10.2) mg/dL Total Bilirubin (0.2-1.3) mg/dL AST (17-59) U/L ALT (4-49) U/L Troponin I (0.000-0.034) ng/mL Total Protein (6.3-8.2) g/dL Albumin (3.5-5.0) g/dL Procalcitonin 0.23 H (0.02-0.09) ng/mL Crossmatch See Detail 12/07/20 12/07/20 12/07/20 Range/Units 12:25 12:30 14:01 WBC 23.2 H (3.8-10.6) k/uL RBC 2.85 L (4.30-5.90) m/uL Hgb 8.7 L (13.0-17.5) gm/dL Hct 25.5 L (39.0-53.0) % RDW (11.5-15.5) % Plt Count 64 L (150-450) k/uL Neutrophils # (Manual) 19.70 H (1.3-7.7) k/uL Metamyelocytes # (Man) 0.70 H (0) k/uL Myelocytes # (Manual) (0) k/uL Nucleated RBCs 2 H (0-0) /100 WBC PT (9.0-12.0) sec INR (<1.2) APTT (22.0-30.0) sec ABG pH 7.17 L* (7.35-7.45) ABG pCO2 53 H (35-45) mmHg ABG pO2 237 H (83-108) mmHg ABG HCO3 19 L (21-25) mmol/L ABG Total CO2 (19-24) mmol/L ABG O2 Saturation 99.9 H (94-97) % ABG Lactic Acid (0.5-1.6) mmol/L Potassium (3.5-5.1) mmol/L Chloride (98-107) mmol/L Carbon Dioxide (22-30) mmol/L BUN (9-20) mg/dL Creatinine (0.66-1.25) mg/dL Glucose (74-99) mg/dL POC Glucose (mg/dL) 214 H (75-99) mg/dL Plasma Lactic Acid Kadeem (0.7-2.0) mmol/L Calcium (8.4-10.2) mg/dL Total Bilirubin (0.2-1.3) mg/dL AST (17-59) U/L ALT (4-49) U/L Troponin I (0.000-0.034) ng/mL Total Protein (6.3-8.2) g/dL Albumin (3.5-5.0) g/dL Procalcitonin (0.02-0.09) ng/mL Crossmatch 12/07/20 12/07/20 12/07/20 Range/Units 14:31 15:40 16:08 WBC 32.1 H (3.8-10.6) k/uL RBC 3.79 L (4.30-5.90) m/uL Hgb 11.1 L (13.0-17.5) gm/dL Hct 34.6 L (39.0-53.0) % RDW (11.5-15.5) % Plt Count 58 L (150-450) k/uL Neutrophils # (Manual) (1.3-7.7) k/uL Metamyelocytes # (Man) (0) k/uL Myelocytes # (Manual) (0) k/uL Nucleated RBCs (0-0) /100 WBC PT (9.0-12.0) sec INR (<1.2) APTT (22.0-30.0) sec ABG pH (7.35-7.45) ABG pCO2 (35-45) mmHg ABG pO2 (83-108) mmHg ABG HCO3 (21-25) mmol/L ABG Total CO2 (19-24) mmol/L ABG O2 Saturation (94-97) % ABG Lactic Acid (0.5-1.6) mmol/L Potassium 5.4 H (3.5-5.1) mmol/L Chloride 115 H (98-107) mmol/L Carbon Dioxide 21 L (22-30) mmol/L BUN 55 H (9-20) mg/dL Creatinine (0.66-1.25) mg/dL Glucose 225 H (74-99) mg/dL POC Glucose (mg/dL) (75-99) mg/dL Plasma Lactic Acid Kadeem 3.5 H* (0.7-2.0) mmol/L Calcium 5.4 L* (8.4-10.2) mg/dL Total Bilirubin (0.2-1.3) mg/dL AST (17-59) U/L ALT (4-49) U/L Troponin I (0.000-0.034) ng/mL Total Protein (6.3-8.2) g/dL Albumin (3.5-5.0) g/dL Procalcitonin (0.02-0.09) ng/mL Crossmatch 12/07/20 12/07/20 12/07/20 Range/Units 16:08 18:04 20:46 WBC (3.8-10.6) k/uL RBC (4.30-5.90) m/uL Hgb (13.0-17.5) gm/dL Hct (39.0-53.0) % RDW (11.5-15.5) % Plt Count (150-450) k/uL Neutrophils # (Manual) (1.3-7.7) k/uL Metamyelocytes # (Man) (0) k/uL Myelocytes # (Manual) (0) k/uL Nucleated RBCs (0-0) /100 WBC PT (9.0-12.0) sec INR (<1.2) APTT (22.0-30.0) sec ABG pH (7.35-7.45) ABG pCO2 (35-45) mmHg ABG pO2 (83-108) mmHg ABG HCO3 (21-25) mmol/L ABG Total CO2 (19-24) mmol/L ABG O2 Saturation (94-97) % ABG Lactic Acid (0.5-1.6) mmol/L Potassium (3.5-5.1) mmol/L Chloride (98-107) mmol/L Carbon Dioxide (22-30) mmol/L BUN (9-20) mg/dL Creatinine (0.66-1.25) mg/dL Glucose (74-99) mg/dL POC Glucose (mg/dL) 203 H 192 H (75-99) mg/dL Plasma Lactic Acid Kadeem (0.7-2.0) mmol/L Calcium (8.4-10.2) mg/dL Total Bilirubin (0.2-1.3) mg/dL AST (17-59) U/L ALT (4-49) U/L Troponin I 0.157 H* (0.000-0.034) ng/mL Total Protein (6.3-8.2) g/dL Albumin (3.5-5.0) g/dL Procalcitonin (0.02-0.09) ng/mL Crossmatch 12/07/20 12/07/20 12/07/20 Range/Units 20:54 21:35 21:35 WBC 29.3 H (3.8-10.6) k/uL RBC 3.05 L (4.30-5.90) m/uL Hgb 9.3 L D (13.0-17.5) gm/dL Hct 26.6 L (39.0-53.0) % RDW 16.0 H (11.5-15.5) % Plt Count 56 L (150-450) k/uL Neutrophils # (Manual) (1.3-7.7) k/uL Metamyelocytes # (Man) (0) k/uL Myelocytes # (Manual) (0) k/uL Nucleated RBCs (0-0) /100 WBC PT 13.2 H (9.0-12.0) sec INR 1.3 H (<1.2) APTT (22.0-30.0) sec ABG pH (7.35-7.45) ABG pCO2 (35-45) mmHg ABG pO2 (83-108) mmHg ABG HCO3 (21-25) mmol/L ABG Total CO2 (19-24) mmol/L ABG O2 Saturation (94-97) % ABG Lactic Acid 3.4 H* (0.5-1.6) mmol/L Potassium (3.5-5.1) mmol/L Chloride (98-107) mmol/L Carbon Dioxide (22-30) mmol/L BUN (9-20) mg/dL Creatinine (0.66-1.25) mg/dL Glucose (74-99) mg/dL POC Glucose (mg/dL) (75-99) mg/dL Plasma Lactic Acid Kadeem (0.7-2.0) mmol/L Calcium (8.4-10.2) mg/dL Total Bilirubin (0.2-1.3) mg/dL AST (17-59) U/L ALT (4-49) U/L Troponin I (0.000-0.034) ng/mL Total Protein (6.3-8.2) g/dL Albumin (3.5-5.0) g/dL Procalcitonin (0.02-0.09) ng/mL Crossmatch 12/07/20 12/08/20 12/08/20 Range/Units 22:47 00:40 00:40 WBC 24.9 H (3.8-10.6) k/uL RBC 2.53 L (4.30-5.90) m/uL Hgb 7.8 L D (13.0-17.5) gm/dL Hct 22.4 L (39.0-53.0) % RDW 16.3 H (11.5-15.5) % Plt Count 57 L (150-450) k/uL Neutrophils # (Manual) 21.90 H (1.3-7.7) k/uL Metamyelocytes # (Man) 2.74 H (0) k/uL Myelocytes # (Manual) 0.25 H (0) k/uL Nucleated RBCs 3 H (0-0) /100 WBC PT (9.0-12.0) sec INR (<1.2) APTT (22.0-30.0) sec ABG pH 7.22 L (7.35-7.45) ABG pCO2 47 H (35-45) mmHg ABG pO2 170 H (83-108) mmHg ABG HCO3 19 L (21-25) mmol/L ABG Total CO2 (19-24) mmol/L ABG O2 Saturation 99.4 H (94-97) % ABG Lactic Acid (0.5-1.6) mmol/L Potassium (3.5-5.1) mmol/L Chloride (98-107) mmol/L Carbon Dioxide (22-30) mmol/L BUN (9-20) mg/dL Creatinine (0.66-1.25) mg/dL Glucose (74-99) mg/dL POC Glucose (mg/dL) 203 H (75-99) mg/dL Plasma Lactic Acid Kadeem (0.7-2.0) mmol/L Calcium (8.4-10.2) mg/dL Total Bilirubin (0.2-1.3) mg/dL AST (17-59) U/L ALT (4-49) U/L Troponin I (0.000-0.034) ng/mL Total Protein (6.3-8.2) g/dL Albumin (3.5-5.0) g/dL Procalcitonin (0.02-0.09) ng/mL Crossmatch 12/08/20 12/08/20 12/08/20 Range/Units 05:05 05:36 05:37 WBC 32.9 H (3.8-10.6) k/uL RBC 3.67 L (4.30-5.90) m/uL Hgb 11.5 L D (13.0-17.5) gm/dL Hct 33.3 L (39.0-53.0) % RDW 15.9 H (11.5-15.5) % Plt Count 55 L (150-450) k/uL Neutrophils # (Manual) (1.3-7.7) k/uL Metamyelocytes # (Man) (0) k/uL Myelocytes # (Manual) (0) k/uL Nucleated RBCs (0-0) /100 WBC PT (9.0-12.0) sec INR (<1.2) APTT (22.0-30.0) sec ABG pH 7.13 L* (7.35-7.45) ABG pCO2 49 H (35-45) mmHg ABG pO2 129 H (83-108) mmHg ABG HCO3 16 L (21-25) mmol/L ABG Total CO2 18 L (19-24) mmol/L ABG O2 Saturation 98.4 H (94-97) % ABG Lactic Acid (0.5-1.6) mmol/L Potassium (3.5-5.1) mmol/L Chloride (98-107) mmol/L Carbon Dioxide (22-30) mmol/L BUN (9-20) mg/dL Creatinine (0.66-1.25) mg/dL Glucose (74-99) mg/dL POC Glucose (mg/dL) 180 H (75-99) mg/dL Plasma Lactic Acid Kadeem (0.7-2.0) mmol/L Calcium (8.4-10.2) mg/dL Total Bilirubin (0.2-1.3) mg/dL AST (17-59) U/L ALT (4-49) U/L Troponin I (0.000-0.034) ng/mL Total Protein (6.3-8.2) g/dL Albumin (3.5-5.0) g/dL Procalcitonin (0.02-0.09) ng/mL Crossmatch 12/08/20 12/08/20 12/08/20 Range/Units 05:37 10:45 10:45 WBC (3.8-10.6) k/uL RBC (4.30-5.90) m/uL Hgb (13.0-17.5) gm/dL Hct (39.0-53.0) % RDW (11.5-15.5) % Plt Count (150-450) k/uL Neutrophils # (Manual) (1.3-7.7) k/uL Metamyelocytes # (Man) (0) k/uL Myelocytes # (Manual) (0) k/uL Nucleated RBCs (0-0) /100 WBC PT 16.7 H (9.0-12.0) sec INR 1.7 H (<1.2) APTT 32.8 H (22.0-30.0) sec ABG pH (7.35-7.45) ABG pCO2 (35-45) mmHg ABG pO2 (83-108) mmHg ABG HCO3 (21-25) mmol/L ABG Total CO2 (19-24) mmol/L ABG O2 Saturation (94-97) % ABG Lactic Acid (0.5-1.6) mmol/L Potassium 6.5 H* (3.5-5.1) mmol/L Chloride 117 H (98-107) mmol/L Carbon Dioxide 15 L (22-30) mmol/L BUN 63 H (9-20) mg/dL Creatinine 1.53 H (0.66-1.25) mg/dL Glucose 177 H (74-99) mg/dL POC Glucose (mg/dL) (75-99) mg/dL Plasma Lactic Acid Kadeem 4.9 H* (0.7-2.0) mmol/L Calcium 7.0 L (8.4-10.2) mg/dL Total Bilirubin 1.4 H (0.2-1.3) mg/dL AST 4370 H (17-59) U/L ALT 5815 H (4-49) U/L Troponin I (0.000-0.034) ng/mL Total Protein 3.1 L (6.3-8.2) g/dL Albumin 1.7 L (3.5-5.0) g/dL Procalcitonin (0.02-0.09) ng/mL Crossmatch 12/08/20 12/08/20 12/08/20 Range/Units 10:45 10:45 11:06 WBC 28.5 H (3.8-10.6) k/uL RBC 2.74 L (4.30-5.90) m/uL Hgb 8.6 L D (13.0-17.5) gm/dL Hct 24.6 L (39.0-53.0) % RDW 16.2 H (11.5-15.5) % Plt Count 41 L (150-450) k/uL Neutrophils # (Manual) (1.3-7.7) k/uL Metamyelocytes # (Man) (0) k/uL Myelocytes # (Manual) (0) k/uL Nucleated RBCs (0-0) /100 WBC PT (9.0-12.0) sec INR (<1.2) APTT (22.0-30.0) sec ABG pH (7.35-7.45) ABG pCO2 (35-45) mmHg ABG pO2 (83-108) mmHg ABG HCO3 (21-25) mmol/L ABG Total CO2 (19-24) mmol/L ABG O2 Saturation (94-97) % ABG Lactic Acid (0.5-1.6) mmol/L Potassium 5.3 H (3.5-5.1) mmol/L Chloride (98-107) mmol/L Carbon Dioxide (22-30) mmol/L BUN (9-20) mg/dL Creatinine (0.66-1.25) mg/dL Glucose (74-99) mg/dL POC Glucose (mg/dL) 194 H (75-99) mg/dL Plasma Lactic Acid Kadeem (0.7-2.0) mmol/L Calcium (8.4-10.2) mg/dL Total Bilirubin (0.2-1.3) mg/dL AST (17-59) U/L ALT (4-49) U/L Troponin I (0.000-0.034) ng/mL Total Protein (6.3-8.2) g/dL Albumin (3.5-5.0) g/dL Procalcitonin (0.02-0.09) ng/mL Crossmatch
--- NOTE | 2020-12-08 12:22 | P.PN ---
Progress Note - Text Progress Note Date: 12/08/20 The patient remains relatively unchanged. His last hemoglobin was 8.6. On exam her vital signs are stable. Abdomen soft. Patient underwent. We'll plan for upper and lower endoscopy on Thursday.
[2020-12-08] MEDS: ASCORBIC ACID 500 MG TAB PO SCH ×2 (12:31→20:35)
[2020-12-08] MEDS: CHLORHEXIDINE GLUCONATE 15 ML CUP MUCOUS MEM SCH ×2 (12:32→20:37)
[2020-12-08] MEDS: methylPREDNISolone SOD SUCCI 40 MG/ML 1 ML VIAL IV SCH ×2 (12:32→20:44)
[2020-12-08] MEDS: CHOLECALCIFEROL 25 MCG (1000 IU) TABLET PO SCH (12:32)
[2020-12-08] MEDS: PANTOPRAZOLE 40 MG/10 ML VIAL IVP SCH ×2 (12:32→20:44)
[2020-12-08] MEDS: ZINC SULFATE 220 MG CAP PO SCH (12:32)
[2020-12-08] MEDS ORDERED: SODIUM CHLORIDE 0.9% 1,000 ML IV ONE (13:28)
[2020-12-08 17:45] LABS: Glucose,Whole Blood 238 mg/dL (75-99)
[2020-12-08 18:05] LABS: ABG HCO3 22 mmol/L (21-25); ABG PCO2 54 mmHg (35-45); ABG PH 7.22 (7.35-7.45); ABG PO2 72 mmHg (83-108); ABG TCO2 24 mmol/L (19-24)
[2020-12-08 18:06] LABS: ABG Base Excess -5.5 mmol/L; ABG Oxygen Saturation 93.9 % (94-97)
[2020-12-08 18:08] LABS: HCT 25.8 % (39.0-53.0); HGB 8.7 gm/dL (13.0-17.5); MCH 30.5 pg (25.0-35.0); MCHC 33.7 g/dL (31.0-37.0); MCV 90.6 fL (80.0-100.0); Mean Platelet Volume 9.8; Poikilocytosis Slight; RBC 2.85 m/uL (4.30-5.90); RDW 15.9 % (11.5-15.5); WBC 26.5 k/uL (3.8-10.6)
[2020-12-08 18:15] LABS: Platelet Count 43 k/uL (150-450)
[2020-12-08 18:30] LABS: Calcium 6.7 mg/dL (8.4-10.2); Potassium 4.9 mmol/L (3.5-5.1)
[2020-12-08] MEDS: MELATONIN 3 MG TABLET PO SCH (20:35)
[2020-12-08 22:27] LABS: Glucose,Whole Blood 243 mg/dL (75-99)
[2020-12-08 23:26] LABS: Glucose,Whole Blood 240 mg/dL (75-99)
[2020-12-09] MEDS: ARTIFICIAL TEARS-HYPROMELLOSE DROPS 15 ML BTL BOTH EYES SCH ×7 (00:10→23:37)
[2020-12-09] MEDS: PIPERACILLIN-TAZOBACTAM 3.375 GM in SODIUM CHLORIDE 0.9% 100 ML IVPB SCH ×4 (00:24→23:35)
[2020-12-09 01:22] LABS: Albumin 1.7 g/dL (3.5-5.0); Calcium 6.7 mg/dL (8.4-10.2); Magnesium 1.7 mg/dL (1.6-2.3); Potassium 4.6 mmol/L (3.5-5.1); Total Bilirubin 1.5 mg/dL (0.2-1.3)
[2020-12-09 03:18] LABS: Glucose,Whole Blood 226 mg/dL (75-99)
[2020-12-09] MEDS: INSULIN ASPART (NovoLOG) 100 UNIT/ML VIAL SQ SCH ×6 (03:25→23:36)
[2020-12-09 03:32] LABS: Anisocytosis Slight; HCT 23.5 % (39.0-53.0); HGB 8.5 gm/dL (13.0-17.5); MCH 32.1 pg (25.0-35.0); MCHC 36.2 g/dL (31.0-37.0); MCV 88.8 fL (80.0-100.0); Poikilocytosis Slight; RBC 2.65 m/uL (4.30-5.90); RDW 16.8 % (11.5-15.5)
[2020-12-09] MEDS: DEXTROSE 5% IN WATER 1,000 ML with SODIUM BICARB (1 MEQ/ML) 150 ML IV SCH (03:40)
[2020-12-09] MEDS: SODIUM CHLORIDE 0.9% 150 ML with VASOPRESSIN 60 UNIT IV SCH ×2 (03:41)
[2020-12-09 04:13] LABS: Platelet Count 45 k/uL (150-450)
[2020-12-09 05:33] LABS: ABG Base Excess -1.6 mmol/L; ABG HCO3 26 mmol/L (21-25); ABG Oxygen Saturation 97.4 % (94-97); ABG PCO2 57 mmHg (35-45); ABG PH 7.26 (7.35-7.45); ABG PO2 95 mmHg (83-108); ABG TCO2 27 mmol/L (19-24); Allen Test Performed? no
--- NOTE | 2020-12-09 06:18 | XR ---
EXAMINATION TYPE: XR chest 1V portable DATE OF EXAM: 12/09/2020 CLINICAL HISTORY: Difficulty breathing progress study. TECHNIQUE: Single AP portable semiupright view of the chest is obtained. COMPARISON: Chest x-ray from one day earlier and older studies FINDINGS: Stable somewhat low-lying endotracheal tube. Stable orogastric tube. Stable right subclavi an central venous catheter. Stable left-sided PICC line. Low lung volumes with bilateral multifocal and confluent opacities redemonstrated. Cardiac silhouette size is stable and within normal limits. Osseous structures are intact. IMPRESSION: Low lung volumes with bilateral multifocal and confluent opacities consistent with known covid-19 infection, no significant change from one day earlier.
[2020-12-09 06:33] LABS: Band Neutrophils % 8 %; Lymphocytes # (M) 0.85 k/uL (1.0-4.8); Metamyelocytes # (M) 0.21 k/uL (0); Metamyelocytes % 1 %; Monocytes # (M) 0.21 k/uL (0-1.0); Neutrophils % (M) 87 %; Nucleated Red Blood Cells 3 /100 WBC (0-0); Total Cells Counted 200; WBC 21.2 k/uL (3.8-10.6)
[2020-12-09 06:35] LABS: Polychromasia Present
[2020-12-09 06:50] LABS: Glucose,Whole Blood 225 mg/dL (75-99)
[2020-12-09] MEDS ORDERED: DEXTROSE 5% IN WATER 100 ML with AMIODARONE 150 MG IV ONE ×2 (07:16→12:13)
[2020-12-09] MEDS ORDERED: AMIODARONE 360 MG in DEXTROSE 5% IN WATER 200 ML IV ONE ×2 (07:16)
[2020-12-09] MEDS: SODIUM CHLORIDE 0.9% 1,000 ML IV SCH ×3 (08:00→20:17)
[2020-12-09] MEDS ORDERED: INSULIN DETEMIR (LEVEMIR) 100 UNIT/ML SYR SQ SCH (09:00)
[2020-12-09] MEDS ORDERED: PEG 3350-NA SULF,BICARB,CL/KCL 4,000 ML BOTTLE PO ONE (09:00)
--- NOTE | 2020-12-09 09:26 | P.PN ---
Subjective Progress Note Date: 12/09/20 12/09/2020, the patient is being seen for a follow-up. He remains critically ill, intubated on a mechanical ventilator. Post COVID-19 related pneumonia. He also developed shock predominantly secondary to a massive GI bleed which is currently inactive and stable. In summary, the patient is on a mechanical ventilator. This morning. He is sedated and he sedation is in the form of propofol at the rate of 35. Microvascular kilogram per minute and the patient is also on Nimbex for paralysis at the rate of 1 mcg/kg per minute. He remains on a mechanical ventilator. He is an assist-control mode and the patient is on a tidal volume of 375 with a rate of 38 and FiO2 of 60% with a PEEP of 16. His peak airway pressure was 40. This morning. His chest x-ray still showing diffuse but the pulmonary infiltrates/ARDS post COVID-19 related pneumonia. The patient had a blood gases this morning that showed a pH of 7.26 and a pO2 of 95 and a pO2 CO2 of 57. Based on this, I dropped the PEEP down to 14. His current peak airway pressure is 36 with a static pressure of 35. No significant orot beverly secretions. Strength is a mechanical ventilator. Hemodynamically, the patient is improving. He got aggressively resuscitated with IV fluids and received multiple boluses with saline and albumin and blood products. Overall, his 7 L positive for yesterday and 9 L positive for today before. CVP is up. Pressor requirements are lower. He is currently on norepinephrine running at 0.1 mcg/kg per minute. He was doing well and alert in the process of weaning the pressors earlier this morning when the patient went into atrial fibrillation with rapid ventricular response. This caused some worsening hypotension. Based on that, the patient was cardioverted 3 without any success and following that the patient was given amiodarone bolus and started on a maintenance of amiodarone. His heart is still tachycardic. He is going to receive a second bolus of amiodarone right now. No articulation abuse. Based on his recent massive GI bleeding. In terms of bleeding, no active bleeding for now. The patient has a stable hemoglobin of 8.5. OG tube is in place and there is no bleeding from his OG. No rectal bleeding. No melanotic stool. He remains nothing by mouth. He remains on IV Protonix. A repeat echocardiogram was done yesterday and the events ejection fraction was essentially within normal limits. CAT scan of the abdomen was nonspecific and there was some limited pneu momediastinum noted. The patient is on a combination of steroids in the form of IV Solu-Medrol and the patient completed the course of Baricitinib. He is currently on IV Zosyn as an empiric antibiotic coverage. He is also on vancomycin. Repeat cultures are all negative for now. Family has been informed and being updated on a daily basis regarding his progress. In terms of rest of the blood work, the patient has a white cell count of 21.2 which is improved compared to yesterday. Hemoglobin stable at 8.5. Platelet counts are stable at 45. His BUN is up to 74 with a creatinine of 2.4 as the patient developed an acute kidney injury. Creatinine is up to 2.4. He was given bicarb infusion and currently is off the bicarb and his serum bicarb is a 24. He also developed a shock liver with AST of 2912, and ALT are 5134. The lactic acid level is at 2.6. The liver function tests in general, improving compared to yesterday. Objective - Vital Signs Vital signs: Vital Signs Temp 98.6 F 12/09/20 08:00 Pulse 161 H 12/09/20 08:30 Resp 38 H 12/09/20 08:30 BP 104/64 12/09/20 06:15 Pulse Ox 97 12/09/20 08:30 Intake & Output 12/08/20 12/09/20 12/09/20 18:59 06:59 18:59 Intake Total 6334.439 2145.947 276.333 Output Total 365 380 30 Balance 5969.439 1765.947 246.333 Weight 132.6 kg Intake: IV 5557 1988 Dextrose 5% in Water 1, 1050 1950 150 000 ml @ 150 mls/hr IV . Q7H40M HIRAM with Sodium Bicarb (1 Meq/ml) 150 ml Rx#:[id number] Dextrose 5% in Water 100 100 ml @ 618 mls/hr IV .Q10M ONE with Amiodarone 150 mg Rx#:[id number] Piperacillin-Tazobactam 3 200 .375 gm In Sodium Chloride 0.9% 100 ml @ 25 mls/hr IVPB Q8HR HIRAM Rx# :[id number] Pressure bags 57 39 3 Sodium Chloride 0.9% 1, 3750 000 ml @ 150 mls/hr IV . Q6H40M HIRAM Rx#:[id number] Vancomycin 2,000 mg In 500 Sodium Chloride 0.9% 500 ml 500 ml @ 167 mls/hr IVPB Q12H HIRAM Rx#: [id number] Intake, IV Titration 657.439 156.947 23.333 Amount Cisatracurium 200 mg In 136.981 Sodium Chloride 0.9% 180 ml @ 1 MCG/KG/MIN 6.492 mls/hr IV .Q24H HIRAM Rx#: [id number] Norepinephrine 32 mg In 420.458 156.947 23.333 Sodium Chloride 0.9% 218 ml @ 0.75 MCG/KG/MIN 38. 039 mls/hr IV .Q6H35M HIRAM Rx#:[id number] propofoL 1,000 mg In 100 Empty Bag 1 bag @ Titrate IV .Q0M HIRAM Rx#: [id number] Other 120 Output: Urine 364 380 30 Stool 1 Other: Voiding Method Indwelling Catheter Indwelling Catheter # Bowel Movements 1 ABP, PAP, CO, CI - Last Documented Arterial Blood Pressure 86/51 - Exam GENERAL EXAM: Intubated on mechanical ventilator and the patient is sedated and paralyzed. Orotracheal and orogastric tube are both in place. HEAD: Normocephalic/atraumatic. EYES: Normal reaction of pupils, equal size. Conjunctiva pink, sclera white. NOSE: Clear with pink turbinates. THROAT: No erythema or exudates. NECK: No masses, no JVD, no thyroid enlargement, no adenopathy. CHEST: No chest wall deformity. Symmetrical expansion. LUNGS: Equal air entry with crackles in the bilateral posterior bases CVS: regular rate and rhythm, normal S1 and S2, no gallops, no murmurs, no rubs ABDOMEN: Soft, nontender. No hepatosplenomegaly, normal bowel sounds, no guarding or rigidity. EXTREMITIES: No clubbing, no edema, no cyanosis, and the patient has diminished pulses in all 4 extremities MUSCULOSKELETAL: Muscle strength and tone normal. SPINE: No scoliosis or deformity SKIN: No rashes CENTRAL NERVOUS SYSTEM: Cannot be assessed as the patient is currently sedated and paralyzed. PSYCHIATRIC: Cannot be assessed - Labs CBC & Chem 7: 12/09/20 03:15 12/09/20 00:47 Labs: Abnormal Lab Results - Last 24 Hours (Table) 12/08/20 12/08/20 12/08/20 Range/Units 10:45 10:45 10:45 WBC (3.8-10.6) k/uL RBC (4.30-5.90) m/uL Hgb (13.0-17.5) gm/dL Hct (39.0-53.0) % RDW (11.5-15.5) % Plt Count (150-450) k/uL Neutrophils # (Manual) (1.3-7.7) k/uL Lymphocytes # (Manual) (1.0-4.8) k/uL Metamyelocytes # (Man) (0) k/uL Nucleated RBCs (0-0) /100 WBC PT 16.7 H (9.0-12.0) sec INR 1.7 H (<1.2) APTT 32.8 H (22.0-30.0) sec ABG pH (7.35-7.45) ABG pCO2 (35-45) mmHg ABG pO2 (83-108) mmHg ABG HCO3 (21-25) mmol/L ABG Total CO2 (19-24) mmol/L ABG O2 Saturation (94-97) % ABG Lactic Acid (0.5-1.6) mmol/L Potassium 5.3 H (3.5-5.1) mmol/L Chloride (98-107) mmol/L BUN (9-20) mg/dL Creatinine (0.66-1.25) mg/dL Glucose (74-99) mg/dL POC Glucose (mg/dL) (75-99) mg/dL Plasma Lactic Acid Kadeem 4.9 H* (0.7-2.0) mmol/L Calcium (8.4-10.2) mg/dL Total Bilirubin (0.2-1.3) mg/dL AST (17-59) U/L ALT (4-49) U/L Total Protein (6.3-8.2) g/dL Albumin (3.5-5.0) g/dL 12/08/20 12/08/20 12/08/20 Range/Units 10:45 11:06 17:22 WBC 28.5 H (3.8-10.6) k/uL RBC 2.74 L (4.30-5.90) m/uL Hgb 8.6 L D (13.0-17.5) gm/dL Hct 24.6 L (39.0-53.0) % RDW 16.2 H (11.5-15.5) % Plt Count 41 L (150-450) k/uL Neutrophils # (Manual) (1.3-7.7) k/uL Lymphocytes # (Manual) (1.0-4.8) k/uL Metamyelocytes # (Man) (0) k/uL Nucleated RBCs (0-0) /100 WBC PT (9.0-12.0) sec INR (<1.2) APTT (22.0-30.0) sec ABG pH 7.22 L (7.35-7.45) ABG pCO2 54 H (35-45) mmHg ABG pO2 72 L (83-108) mmHg ABG HCO3 (21-25) mmol/L ABG Total CO2 (19-24) mmol/L ABG O2 Saturation 93.9 L (94-97) % ABG Lactic Acid (0.5-1.6) mmol/L Potassium (3.5-5.1) mmol/L Chloride (98-107) mmol/L BUN (9-20) mg/dL Creatinine (0.66-1.25) mg/dL Glucose (74-99) mg/dL POC Glucose (mg/dL) 194 H (75-99) mg/dL Plasma Lactic Acid Kadeem (0.7-2.0) mmol/L Calcium (8.4-10.2) mg/dL Total Bilirubin (0.2-1.3) mg/dL AST (17-59) U/L ALT (4-49) U/L Total Protein (6.3-8.2) g/dL Albumin (3.5-5.0) g/dL 12/08/20 12/08/20 12/08/20 Range/Units 17:39 17:40 17:40 WBC 26.5 H (3.8-10.6) k/uL RBC 2.85 L (4.30-5.90) m/uL Hgb 8.7 L (13.0-17.5) gm/dL Hct 25.8 L (39.0-53.0) % RDW 15.9 H (11.5-15.5) % Plt Count 43 L (150-450) k/uL Neutrophils # (Manual) (1.3-7.7) k/uL Lymphocytes # (Manual) (1.0-4.8) k/uL Metamyelocytes # (Man) (0) k/uL Nucleated RBCs (0-0) /100 WBC PT (9.0-12.0) sec INR (<1.2) APTT (22.0-30.0) sec ABG pH (7.35-7.45) ABG pCO2 (35-45) mmHg ABG pO2 (83-108) mmHg ABG HCO3 (21-25) mmol/L ABG Total CO2 (19-24) mmol/L ABG O2 Saturation (94-97) % ABG Lactic Acid (0.5-1.6) mmol/L Potassium (3.5-5.1) mmol/L Chloride 115 H (98-107) mmol/L BUN 70 H (9-20) mg/dL Creatinine 2.02 H (0.66-1.25) mg/dL Glucose 218 H (74-99) mg/dL POC Glucose (mg/dL) 238 H (75-99) mg/dL Plasma Lactic Acid Kadeem (0.7-2.0) mmol/L Calcium 6.7 L (8.4-10.2) mg/dL Total Bilirubin (0.2-1.3) mg/dL AST (17-59) U/L ALT (4-49) U/L Total Protein (6.3-8.2) g/dL Albumin (3.5-5.0) g/dL 12/08/20 12/08/20 12/08/20 Range/Units 19:07 22:23 22:26 WBC (3.8-10.6) k/uL RBC (4.30-5.90) m/uL Hgb (13.0-17.5) gm/dL Hct (39.0-53.0) % RDW (11.5-15.5) % Plt Count (150-450) k/uL Neutrophils # (Manual) (1.3-7.7) k/uL Lymphocytes # (Manual) (1.0-4.8) k/uL Metamyelocytes # (Man) (0) k/uL Nucleated RBCs (0-0) /100 WBC PT (9.0-12.0) sec INR (<1.2) APTT (22.0-30.0) sec ABG pH (7.35-7.45) ABG pCO2 (35-45) mmHg ABG pO2 (83-108) mmHg ABG HCO3 (21-25) mmol/L ABG Total CO2 (19-24) mmol/L ABG O2 Saturation (94-97) % ABG Lactic Acid 3.1 H* (0.5-1.6) mmol/L Potassium (3.5-5.1) mmol/L Chloride (98-107) mmol/L BUN (9-20) mg/dL Creatinine (0.66-1.25) mg/dL Glucose (74-99) mg/dL POC Glucose (mg/dL) 243 H (75-99) mg/dL Plasma Lactic Acid Kadeem 2.7 H* (0.7-2.0) mmol/L Calcium (8.4-10.2) mg/dL Total Bilirubin (0.2-1.3) mg/dL AST (17-59) U/L ALT (4-49) U/L Total Protein (6.3-8.2) g/dL Albumin (3.5-5.0) g/dL 12/08/20 12/09/20 12/09/20 Range/Units 23:24 00:47 03:15 WBC (3.8-10.6) k/uL RBC (4.30-5.90) m/uL Hgb (13.0-17.5) gm/dL Hct (39.0-53.0) % RDW (11.5-15.5) % Plt Count (150-450) k/uL Neutrophils # (Manual) (1.3-7.7) k/uL Lymphocytes # (Manual) (1.0-4.8) k/uL Metamyelocytes # (Man) (0) k/uL Nucleated RBCs (0-0) /100 WBC PT (9.0-12.0) sec INR (<1.2) APTT (22.0-30.0) sec ABG pH (7.35-7.45) ABG pCO2 (35-45) mmHg ABG pO2 (83-108) mmHg ABG HCO3 (21-25) mmol/L ABG Total CO2 (19-24) mmol/L ABG O2 Saturation (94-97) % ABG Lactic Acid (0.5-1.6) mmol/L Potassium (3.5-5.1) mmol/L Chloride 112 H (98-107) mmol/L BUN 74 H (9-20) mg/dL Creatinine 2.42 H (0.66-1.25) mg/dL Glucose 214 H (74-99) mg/dL POC Glucose (mg/dL) 240 H (75-99) mg/dL Plasma Lactic Acid Kadeem 2.6 H* (0.7-2.0) mmol/L Calcium 6.7 L (8.4-10.2) mg/dL Total Bilirubin 1.5 H (0.2-1.3) mg/dL AST 2912 H (17-59) U/L ALT 5134 H (4-49) U/L Total Protein 3.0 L (6.3-8.2) g/dL Albumin 1.7 L (3.5-5.0) g/dL 12/09/20 12/09/20 12/09/20 Range/Units 03:15 03:17 05:29 WBC 21.2 H (3.8-10.6) k/uL RBC 2.65 L (4.30-5.90) m/uL Hgb 8.5 L (13.0-17.5) gm/dL Hct 23.5 L (39.0-53.0) % RDW 16.8 H (11.5-15.5) % Plt Count 45 L (150-450) k/uL Neutrophils # (Manual) 20.10 H (1.3-7.7) k/uL Lymphocytes # (Manual) 0.85 L (1.0-4.8) k/uL Metamyelocytes # (Man) 0.21 H (0) k/uL Nucleated RBCs 3 H (0-0) /100 WBC PT (9.0-12.0) sec INR (<1.2) APTT (22.0-30.0) sec ABG pH 7.26 L (7.35-7.45) ABG pCO2 57 H (35-45) mmHg ABG pO2 (83-108) mmHg ABG HCO3 26 H (21-25) mmol/L ABG Total CO2 27 H (19-24) mmol/L ABG O2 Saturation 97.4 H (94-97) % ABG Lactic Acid (0.5-1.6) mmol/L Potassium (3.5-5.1) mmol/L Chloride (98-107) mmol/L BUN (9-20) mg/dL Creatinine (0.66-1.25) mg/dL Glucose (74-99) mg/dL POC Glucose (mg/dL) 226 H (75-99) mg/dL Plasma Lactic Acid Kadeem (0.7-2.0) mmol/L Calcium (8.4-10.2) mg/dL Total Bilirubin (0.2-1.3) mg/dL AST (17-59) U/L ALT (4-49) U/L Total Protein (6.3-8.2) g/dL Albumin (3.5-5.0) g/dL 12/09/20 Range/Units 06:49 WBC (3.8-10.6) k/uL RBC (4.30-5.90) m/uL Hgb (13.0-17.5) gm/dL Hct (39.0-53.0) % RDW (11.5-15.5) % Plt Count (150-450) k/uL Neutrophils # (Manual) (1.3-7.7) k/uL Lymphocytes # (Manual) (1.0-4.8) k/uL Metamyelocytes # (Man) (0) k/uL Nucleated RBCs (0-0) /100 WBC PT (9.0-12.0) sec INR (<1.2) APTT (22.0-30.0) sec ABG pH (7.35-7.45) ABG pCO2 (35-45) mmHg ABG pO2 (83-108) mmHg ABG HCO3 (21-25) mmol/L ABG Total CO2 (19-24) mmol/L ABG O2 Saturation (94-97) % ABG Lactic Acid (0.5-1.6) mmol/L Potassium (3.5-5.1) mmol/L Chloride (98-107) mmol/L BUN (9-20) mg/dL Creatinine (0.66-1.25) mg/dL Glucose (74-99) mg/dL POC Glucose (mg/dL) 225 H (75-99) mg/dL Plasma Lactic Acid Kadeem (0.7-2.0) mmol/L Calcium (8.4-10.2) mg/dL Total Bilirubin (0.2-1.3) mg/dL AST (17-59) U/L ALT (4-49) U/L Total Protein (6.3-8.2) g/dL Albumin (3.5-5.0) g/dL Microbiology - Last 24 Hours (Table) 12/08/20 08:00 Urine Culture - Preliminary Urine,Voided 12/07/20 10:06 Blood Culture - Preliminary Blood No Growth after 24 hours Assessment and Plan Plan: 1 Acute Covid 19 related pneumonia. The patient became symptomatic approxima tely 8 days prior to arrival. Presented with worsening shortness of breath and bilateral pneumonia. Patient is not vaccinated. The patient had not received any outpatient treatments for Covid 19 infection. Diagnosis established during this current admission. Started on Bariticinib on 11/15/2020 in view of worsening hypoxic respiratory failure. Patient was outside the window for Remdesivir, no major improvement in the patient's pulmonary findings and the patient's. This patient was being monitored very closely in the intensive care unit. He was on high flow oxygen for quite some time. Subsequently he became progressively more short of breath. Subsequently, the patient had a GI bleed and shock and he had to be intubated and placed on mechanical ventilator. Currently is in ARDS and being mechanically ventilated with a low tidal volume regimen. PEEP is being gradually weaned off. He has completed his course of Baricitinib. He is on steroids and Decadron will be weaned down to 4 mg IV daily basis. IV. Blood gases was noted from today. Chest x-ray was noted. Peak and static pressures remain elevated. This will be gradually weaned off. . 2 Acute hypoxic respiratory failure secondary to above 3 Obesity with a BMI of 36. 4 Increased inflammatory markers related to acute COVID-19 pneumonia 5 Increased d-dimer, related to viral pneumonia, , Dopplers of the lower extremity negative, CT angiogram ruled out pulmonary embolism 6 paroxysmal atrial fibrillation with rapid ventricular response, and as of the second round of 80 fibrillation and the patient went through. He failed cardioversion and currently he is being bolused with amiodarone. 7 GI bleeding, consider upper GI bleed. Currently off anticoagulation. The patient received aggressive fluid resuscitation and packed RBC transfusion and currently is off anticoagulation and the patient has not showing any acute bleeding 8 acute thrombocytopenia, likely consumptive. No clear indication for DIC. The rest of the coagulation profile is within normal limits. The platelet counts are stable for now and there is no signs of active bleeding 9 shock currently under investigation. No indication of a septic shock. Cultures are all negative. The patient is on a combination of Zosyn and vancom ycin. The shock was essentially hypovolemic post GI bleed. Still on pressors with norepinephrine running at 0.18 mcg/kg per minute. There was further drop in her blood pressure. If the patient went into atrial fibrillation with rapid ventricular response. Currently on amiodarone and norepinephrine infusion. 10 acute leukocytosis, improving 11 transaminitis related to underlying sepsis/hypotension/shock, improving 12 limited pneumomediastinum as evident on the CAT scan of the abdomen 13. Acute kidney injury in the creatinine is up to 2.2, along with a component of metabolic acidosis which is currently inactive and stable. Nephrology is on the case. Plan: Continue ventilator support and drop the PEEP down to 14. Remains off it further down to 12 as long as the situation remains above 95%. Put the patient on Decadron 4 mg IV every 24 hours. He has completed his course of Baricitinib Continue antibiotic coverage with Zosyn and vancomycin CAT scan of the abdomen was noted Keep the patient nothing by mouth, would like to have another day of no GI bleed on this patient. As such, the patient will be kept nothing by mouth for another 24 hours Continue IV Protonix Monitor renal function Amiodarone bolus and maintenance to control his atrial fibrillation Check 2 sets of blood cultures, and all of the cultures are negative thus far The PICC line was removed yesterday and sent for cultures. The patient has a new triple-lumen catheter in place Recheck Check lactic acid level, improving. Lactic acid levels Zinc sulfate and vitamin C and vitamin D supplements Monitor oxygenation We'll continue to follow. Condition is still critical. Critical care evaluation , 30 min Time with Patient: Greater than 30
--- NOTE | 2020-12-09 09:29 | P.PN ---
Subjective Patient is seen in follow-up for acute kidney injury. Creatinine 2.42 today. Remains on Levophed and vasopressin but doses are lower compared to yesterday. Urine output 30 mL an hour. Intubated. On 60% FiO2. Went into A. fib with RVR this morning and is receiving IV amiodarone. Vital signs are stable. On vasopressor support. HEENT: Intubated. LUNGS: Breath sounds decreased. HEART: Irregular rate and rhythm. ABDOMEN: Soft, obese. EXTREMITITES: Trace edema. Objective - Vital Signs Vital signs: Vital Signs Temp 98.6 F 12/09/20 08:00 Pulse 161 H 12/09/20 08:30 Resp 38 H 12/09/20 08:30 BP 104/64 12/09/20 06:15 Pulse Ox 97 12/09/20 08:30 Intake & Output 12/08/20 12/09/20 12/09/20 18:59 06:59 18:59 Intake Total 6334.439 2145.947 276.333 Output Total 365 380 30 Balance 5969.439 1765.947 246.333 Weight 132.6 kg Intake: IV 5557 1989 253 Dextrose 5% in Water 1, 1050 1950 150 000 ml @ 150 mls/hr IV . Q7H40M [facility] with Sodium Bicarb (1 Meq/ml) 150 ml Rx#:[id number] Dextrose 5% in Water 100 100 ml @ 618 mls/hr IV .Q10M ONE with Amiodarone 150 mg Rx#:[id number] Piperacillin-Tazobactam 3 200 .375 gm In Sodium Chloride 0.9% 100 ml @ 25 mls/hr IVPB Q8HR [facility] Rx# :[id number] Pressure bags 57 39 3 Sodium Chloride 0.9% 1, 3750 000 ml @ 150 mls/hr IV . Q6H40M [facility] Rx#:[id number] Vancomycin 2,000 mg In 500 Sodium Chloride 0.9% 500 ml 500 ml @ 167 mls/hr IVPB Q12H [facility] Rx#: [id number] Intake, IV Titration 657.439 156.947 23.333 Amount Cisatracurium 200 mg In 136.981 Sodium Chloride 0.9% 180 ml @ 1 MCG/KG/MIN 6.492 mls/hr IV .Q24H [facility] Rx#: [id number] Norepinephrine 32 mg In 420.458 156.947 23.333 Sodium Chloride 0.9% 218 ml @ 0.75 MCG/KG/MIN 38. 039 mls/hr IV .Q6H35M [facility] Rx#:[id number] propofoL 1,000 mg In 100 Empty Bag 1 bag @ Titrate IV .Q0M [facility] Rx#: [id number] Other 120 Output: Urine 364 380 30 Stool 1 Other: Voiding Method Indwelling Catheter Indwelling Catheter # Bowel Movements 1 ABP, PAP, CO, CI - Last Documented Arterial Blood Pressure 86/51 - Labs CBC & Chem 7: 12/09/20 03:15 12/09/20 00:47 Labs: Abnormal Lab Results - Last 24 Hours (Table) 12/08/20 12/08/20 12/08/20 Range/Units 10:45 10:45 10:45 WBC (3.8-10.6) k/uL RBC (4.30-5.90) m/uL Hgb (13.0-17.5) gm/dL Hct (39.0-53.0) % RDW (11.5-15.5) % Plt Count (150-450) k/uL Neutrophils # (Manual) (1.3-7.7) k/uL Lymphocytes # (Manual) (1.0-4.8) k/uL Metamyelocytes # (Man) (0) k/uL Nucleated RBCs (0-0) /100 WBC PT 16.7 H (9.0-12.0) sec INR 1.7 H (<1.2) APTT 32.8 H (22.0-30.0) sec ABG pH (7.35-7.45) ABG pCO2 (35-45) mmHg ABG pO2 (83-108) mmHg ABG HCO3 (21-25) mmol/L ABG Total CO2 (19-24) mmol/L ABG O2 Saturation (94-97) % ABG Lactic Acid (0.5-1.6) mmol/L Potassium (3.5-5.1) mmol/L Chloride (98-107) mmol/L BUN (9-20) mg/dL Creatinine (0.66-1.25) mg/dL Glucose (74-99) mg/dL POC Glucose (mg/dL) (75-99) mg/dL Plasma Lactic Acid Kadeem 4.9 H* (0.7-2.0) mmol/L Calcium (8.4-10.2) mg/dL Total Bilirubin (0.2-1.3) mg/dL AST (17-59) U/L ALT (4-49) U/L Total Protein (6.3-8.2) g/dL Albumin (3.5-5.0) g/dL Procalcitonin 2.01 H (0.02-0.09) ng/mL 12/08/20 12/08/20 12/08/20 Range/Units 10:45 10:45 11:06 WBC 28.5 H (3.8-10.6) k/uL RBC 2.74 L (4.30-5.90) m/uL Hgb 8.6 L D (13.0-17.5) gm/dL Hct 24.6 L (39.0-53.0) % RDW 16.2 H (11.5-15.5) % Plt Count 41 L (150-450) k/uL Neutrophils # (Manual) (1.3-7.7) k/uL Lymphocytes # (Manual) (1.0-4.8) k/uL Metamyelocytes # (Man) (0) k/uL Nucleated RBCs (0-0) /100 WBC PT (9.0-12.0) sec INR (<1.2) APTT (22.0-30.0) sec ABG pH (7.35-7.45) ABG pCO2 (35-45) mmHg ABG pO2 (83-108) mmHg ABG HCO3 (21-25) mmol/L ABG Total CO2 (19-24) mmol/L ABG O2 Saturation (94-97) % ABG Lactic Acid (0.5-1.6) mmol/L Potassium 5.3 H (3.5-5.1) mmol/L Chloride (98-107) mmol/L BUN (9-20) mg/dL Creatinine (0.66-1.25) mg/dL Glucose (74-99) mg/dL POC Glucose (mg/dL) 194 H (75-99) mg/dL Plasma Lactic Acid Kadeem (0.7-2.0) mmol/L Calcium (8.4-10.2) mg/dL Total Bilirubin (0.2-1.3) mg/dL AST (17-59) U/L ALT (4-49) U/L Total Protein (6.3-8.2) g/dL Albumin (3.5-5.0) g/dL Procalcitonin (0.02-0.09) ng/mL 12/08/20 12/08/20 12/08/20 Range/Units 17:22 17:39 17:40 WBC 26.5 H (3.8-10.6) k/uL RBC 2.85 L (4.30-5.90) m/uL Hgb 8.7 L (13.0-17.5) gm/dL Hct 25.8 L (39.0-53.0) % RDW 15.9 H (11.5-15.5) % Plt Count 43 L (150-450) k/uL Neutrophils # (Manual) (1.3-7.7) k/uL Lymphocytes # (Manual) (1.0-4.8) k/uL Metamyelocytes # (Man) (0) k/uL Nucleated RBCs (0-0) /100 WBC PT (9.0-12.0) sec INR (<1.2) APTT (22.0-30.0) sec ABG pH 7.22 L (7.35-7.45) ABG pCO2 54 H (35-45) mmHg ABG pO2 72 L (83-108) mmHg ABG HCO3 (21-25) mmol/L ABG Total CO2 (19-24) mmol/L ABG O2 Saturation 93.9 L (94-97) % ABG Lactic Acid (0.5-1.6) mmol/L Potassium (3.5-5.1) mmol/L Chloride (98-107) mmol/L BUN (9-20) mg/dL Creatinine (0.66-1.25) mg/dL Glucose (74-99) mg/dL POC Glucose (mg/dL) 238 H (75-99) mg/dL Plasma Lactic Acid Kadeem (0.7-2.0) mmol/L Calcium (8.4-10.2) mg/dL Total Bilirubin (0.2-1.3) mg/dL AST (17-59) U/L ALT (4-49) U/L Total Protein (6.3-8.2) g/dL Albumin (3.5-5.0) g/dL Procalcitonin (0.02-0.09) ng/mL 12/08/20 12/08/20 12/08/20 Range/Units 17:40 19:07 22:23 WBC (3.8-10.6) k/uL RBC (4.30-5.90) m/uL Hgb (13.0-17.5) gm/dL Hct (39.0-53.0) % RDW (11.5-15.5) % Plt Count (150-450) k/uL Neutrophils # (Manual) (1.3-7.7) k/uL Lymphocytes # (Manual) (1.0-4.8) k/uL Metamyelocytes # (Man) (0) k/uL Nucleated RBCs (0-0) /100 WBC PT (9.0-12.0) sec INR (<1.2) APTT (22.0-30.0) sec ABG pH (7.35-7.45) ABG pCO2 (35-45) mmHg ABG pO2 (83-108) mmHg ABG HCO3 (21-25) mmol/L ABG Total CO2 (19-24) mmol/L ABG O2 Saturation (94-97) % ABG Lactic Acid 3.1 H* (0.5-1.6) mmol/L Potassium (3.5-5.1) mmol/L Chloride 115 H (98-107) mmol/L BUN 70 H (9-20) mg/dL Creatinine 2.02 H (0.66-1.25) mg/dL Glucose 218 H (74-99) mg/dL POC Glucose (mg/dL) (75-99) mg/dL Plasma Lactic Acid Kadeem 2.7 H* (0.7-2.0) mmol/L Calcium 6.7 L (8.4-10.2) mg/dL Total Bilirubin (0.2-1.3) mg/dL AST (17-59) U/L ALT (4-49) U/L Total Protein (6.3-8.2) g/dL Albumin (3.5-5.0) g/dL Procalcitonin (0.02-0.09) ng/mL 12/08/20 12/08/20 12/09/20 Range/Units 22:26 23:24 00:47 WBC (3.8-10.6) k/uL RBC (4.30-5.90) m/uL Hgb (13.0-17.5) gm/dL Hct (39.0-53.0) % RDW (11.5-15.5) % Plt Count (150-450) k/uL Neutrophils # (Manual) (1.3-7.7) k/uL Lymphocytes # (Manual) (1.0-4.8) k/uL Metamyelocytes # (Man) (0) k/uL Nucleated RBCs (0-0) /100 WBC PT (9.0-12.0) sec INR (<1.2) APTT (22.0-30.0) sec ABG pH (7.35-7.45) ABG pCO2 (35-45) mmHg ABG pO2 (83-108) mmHg ABG HCO3 (21-25) mmol/L ABG Total CO2 (19-24) mmol/L ABG O2 Saturation (94-97) % ABG Lactic Acid (0.5-1.6) mmol/L Potassium (3.5-5.1) mmol/L Chloride 112 H (98-107) mmol/L BUN 74 H (9-20) mg/dL Creatinine 2.42 H (0.66-1.25) mg/dL Glucose 214 H (74-99) mg/dL POC Glucose (mg/dL) 243 H 240 H (75-99) mg/dL Plasma Lactic Acid Kadeem (0.7-2.0) mmol/L Calcium 6.7 L (8.4-10.2) mg/dL Total Bilirubin 1.5 H (0.2-1.3) mg/dL AST 2912 H (17-59) U/L ALT 5134 H (4-49) U/L Total Protein 3.0 L (6.3-8.2) g/dL Albumin 1.7 L (3.5-5.0) g/dL Procalcitonin (0.02-0.09) ng/mL 12/09/20 12/09/20 12/09/20 Range/Units 03:15 03:15 03:17 WBC 21.2 H (3.8-10.6) k/uL RBC 2.65 L (4.30-5.90) m/uL Hgb 8.5 L (13.0-17.5) gm/dL Hct 23.5 L (39.0-53.0) % RDW 16.8 H (11.5-15.5) % Plt Count 45 L (150-450) k/uL Neutrophils # (Manual) 20.10 H (1.3-7.7) k/uL Lymphocytes # (Manual) 0.85 L (1.0-4.8) k/uL Metamyelocytes # (Man) 0.21 H (0) k/uL Nucleated RBCs 3 H (0-0) /100 WBC PT (9.0-12.0) sec INR (<1.2) APTT (22.0-30.0) sec ABG pH (7.35-7.45) ABG pCO2 (35-45) mmHg ABG pO2 (83-108) mmHg ABG HCO3 (21-25) mmol/L ABG Total CO2 (19-24) mmol/L ABG O2 Saturation (94-97) % ABG Lactic Acid (0.5-1.6) mmol/L Potassium (3.5-5.1) mmol/L Chloride (98-107) mmol/L BUN (9-20) mg/dL Creatinine (0.66-1.25) mg/dL Glucose (74-99) mg/dL POC Glucose (mg/dL) 226 H (75-99) mg/dL Plasma Lactic Acid Kadeem 2.6 H* (0.7-2.0) mmol/L Calcium (8.4-10.2) mg/dL Total Bilirubin (0.2-1.3) mg/dL AST (17-59) U/L ALT (4-49) U/L Total Protein (6.3-8.2) g/dL Albumin (3.5-5.0) g/dL Procalcitonin (0.02-0.09) ng/mL 12/09/20 12/09/20 Range/Units 05:29 06:49 WBC (3.8-10.6) k/uL RBC (4.30-5.90) m/uL Hgb (13.0-17.5) gm/dL Hct (39.0-53.0) % RDW (11.5-15.5) % Plt Count (150-450) k/uL Neutrophils # (Manual) (1.3-7.7) k/uL Lymphocytes # (Manual) (1.0-4.8) k/uL Metamyelocytes # (Man) (0) k/uL Nucleated RBCs (0-0) /100 WBC PT (9.0-12.0) sec INR (<1.2) APTT (22.0-30.0) sec ABG pH 7.26 L (7.35-7.45) ABG pCO2 57 H (35-45) mmHg ABG pO2 (83-108) mmHg ABG HCO3 26 H (21-25) mmol/L ABG Total CO2 27 H (19-24) mmol/L ABG O2 Saturation 97.4 H (94-97) % ABG Lactic Acid (0.5-1.6) mmol/L Potassium (3.5-5.1) mmol/L Chloride (98-107) mmol/L BUN (9-20) mg/dL Creatinine (0.66-1.25) mg/dL Glucose (74-99) mg/dL POC Glucose (mg/dL) 225 H (75-99) mg/dL Plasma Lactic Acid Kadeem (0.7-2.0) mmol/L Calcium (8.4-10.2) mg/dL Total Bilirubin (0.2-1.3) mg/dL AST (17-59) U/L ALT (4-49) U/L Total Protein (6.3-8.2) g/dL Albumin (3.5-5.0) g/dL Procalcitonin (0.02-0.09) ng/mL Microbiology - Last 24 Hours (Table) 12/08/20 08:00 Urine Culture - Preliminary Urine,Voided 12/07/20 10:06 Blood Culture - Preliminary Blood No Growth after 24 hours Assessment and Plan Plan: Assessment: 1. Acute kidney injury secondary to ATN secondary to septic shock. Baseline creatinine near 1 and is up to 2.42 today. Urine output 30 mL an hour. Patient also received IV contrast dye on December [address] of the abdomen and pelvis. No hydronephrosis was noted. 2. Hyperkalemia secondary to acute kidney injury and metabolic acidosis. Improved with medical management. 3. Metabolic acidosis secondary to acute kidney injury. Improved with bicarbonate drip. 4. Septic shock secondary to COVID-19 infection. Also concern for superimposed bacterial infection. On Levophed and vasopressin. 5. Acute hypoxic respiratory failure. 6. Shock liver. Improving. 7. A. fib with RVR on IV amiodarone. Plan: Stop bicarb drip. Start normal saline at 75 mL an hour. Wean FiO2 and vasopressors. Continue to monitor renal function and urine output. Continue to assess daily for need for renal replacement therapy. No urgency at this time.
--- NOTE | 2020-12-09 10:06 | P.PN ---
Subjective Progress Note Date: 12/09/20 HISTORY OF PRESENT ILLNESS This is a pleasant 60-year-old gentleman patient of Dr. Ridge Christina. He doesn't see a physician often and does not note any medical diseases, except for obesity. He comes seen secondary to fever and chills, cough, starting December 06 first, along with muscle aches, lack of appetite and diarrhea. he was tested for call bid November 08, which required at week of reporting, subsequently was sent to emergency room secondary to worsening symptoms, including dyspnea on exertion, shortness of breath and worsening cough without hemoptysis. Fever, sh ortness of breath lingers, no treatment given to him prior to this admission. The is vaccinated, but the patient is not. He does not believe in vaccines at that time. He comes in the emergency room, with hypoxemia, with very minimal conversational dyspnea, chest x-ray, shows pulmonary infiltrate consistent with Covid pneumonia, oxygen currently is at 6 L nasal cannula, d-dimer was 0.6, LFTs are minimally elevated, 64 AST, lactic acid 2.0 sodium 132, creatinine of 0.9, glucose of 122, LDH of 888, CRP of 5.7. Urine protein noted, without hematuria or proteinuria. Covid was again retested 11/14, PCR is positive. Consult to Dr. Eduardo and pulmonary,, 11/16: Patient is currently on oxygen at 6 L nasal cannula increased to 7 L with humidified oxygen. Patient seen and followed by pulmonary medicine and has been started on Bariticinib, Decadron 6 mg daily, and prophylactic dose of Lovenox. He is reaching 1750 on incentive spirometry. Patient did have episode of diarrhea yesterday, none today and complains of decreased appetite. Patient complains of nasal congestion and Flonase added. 11/17: Patient had difficulty with oxygenation during the night and this morning transitioned to Airfo and partial nonrebreather. Pulse ox is currently running 90-92%, patient is prone. He has been afebrile, heart rate 88, blood pressure 104/63. Repeat d-dimer is elevated at 0.93. Blood sugar 167. C-reactive protein increased to 5.3. AST is 83 and ALT 51. Blood culture remains with no growth after 48 hours. Repeat chest x-ray reveals mild cardiomegaly with bilateral multifocal opacities consistent with Covid 19 infection. No significant change from most recent x-ray. Albuterol inhaler and Symbicort inhaler added. 11/18: Patient is currently on AirVo and nonrebreather with pulse ox of 93%. He's been afebrile, heart rate 85, blood pressure 103/68. Blood culture no growth at 72 hours 2 specimens. Plan to continue proning. Repeat laboratory studies ordered for tomorrow including inflammatory markers. The patient is having difficulty sleeping and melatonin added. Lovenox increased to twice daily dosing. 11/19: Patient remains in isolation. He is on AirVO plus nonrebreather with pulse ox of 93%. He has been afebrile, heart rate 85, blood pressure 122/69. Patient is found sitting in recliner and encouraged to prone when he is able to. Repeat blood work reveals WBC 12, hemoglobin 14.8, platelet count 282. D-dimer is 1.38. Other blood work is pending. Patient is continued on Decadron, vitamin supplements, Lovenox. He is on day #07/20 of Baricitinib. 11/20: Patient has been afebrile, heart rate 71, blood pressure 107/71, pulse ox 88-93% on AirVo plus nonrebreather. Patient seems to be depressed and frustrated with coarse. Noted that he started on Xanax yesterday by pulmonary. We will add and Remeron 7.5 mg at bedtime. Hemoglobin A1c came back at 6.4. Patient is encouraged to use incentive spirometry, increase activity, prone. Discussed CODE STATUS with patient and he wishes to be a full code. 11/21: Patient will pulse ox of 83% as he was on Airvo only and once nonrebreather was placed she went up to 89%. Patient is not eating much. He has been encouraged to take protein supplement, increase activity and prone but patient does not seem motivated. He was started on Remeron last night which will hopefully help with his mood and appetite. He has continued on Lovenox, dexamethasone, Baricitinib #09/19 repeat blood work reveals WBC 14.3. D-dimer increasing to 3.2. Electrolytes normal, creatinine 0.76. LDH is high at 1476, C-reactive protein stable 6.6. 11/22: Patient continues to be on airflow and nonrebreather and with minimal movement, pulse ox drops down to 82%, otherwise patient is maintaining 92-94%. One dose of IV Lasix ordered for today. Temperature max yesterday afternoon was 101.2. Heart rate in the 70s and 80s. Blood pressure 110/59. Urinalysis was negative for infection. Repeat blood work will be ordered for tomorrow. 11/23: Patient Was moved into ICU overnight. He has been on BiPAP through the night and pulse oxing 95% recently on his side, currently sitting on the edge of the bed pulse oxing 90%, with talking he drops to 83%. He is scheduled for PICC line insertion and plan to start TPN today. Patient has been afebrile, heart rate in the 60s, respiratory rate 28. WBC 12.0, hemoglobin 15, platelet count 351. Lymphocytes 11.1. D-dimer 2.46. Sodium 136, otherwise electrolytes are normal. BUN 30 creatinine 0.7. Blood sugar 128. Magnesium 2.5. Phosphorus 5.5. LDH 1691. C-reactive protein 13.4. Total protein 5.6. Blood cultures remain with no growth. Repeat chest x-ray this morning reveals stable diffuse bilateral infiltrates. Patient is on Baricitinib 10/20. Pulmonary has increased frequency of dexamethasone to twice daily and changed to IV6 mg IV twice daily. 11/24: Patient remain in the ICU, still on BiPAP with pulse ox is improving at this point. Continue dexamethasone and Baricitinib 11/20, patient had full meal this morning his TPN will be suspended after today. Patient will remain in the ICU at least for the next 48 hours. 11/25: Remain in the ICU still on BiPAP but his pulse ox is slightly bit better he still on dexamethasone and Baricitinib 12/20 seems to do slightly but better was agreed by intensive care studies TPN, patient oral intake is slightly but better and had slight improvement compared to yesterday. Surprisingly his marker went up slightly bit specially his LDH up to 2086 with C-reactive protein 3.6 kidney function remained good white blood cell climb up to 15.1 specially been on steroid. Chest x-ray still shows diffuse bilateral interstitial infiltrate and patchy opacification persistent but there is a slight improvement in the variation in the left lower lobe compared to few days earlier. 11/26: Patient remain on BiPAP with 100% oxygen to keep his pulse ox around 92 percentile, his d-dimer continue to be quite bit elevated today is having Doppler of the lower extremity but notes CT at this point. Remain on Symbicort, and albuterol HFA, his white blood cell is down 17,000, blood sugars better control. Chest x-ray still showed patchy infiltrate throughout both lung felix persistent didn't change. Patient had mild anxiety with no pain currently. 11/27: Patient remains in the intensive care unit. He is placed on airflow for eating and pulse ox drops to the 7083 percent range. Pulse ox 90-93% on100% BiPAP. He is afebrile, heart rate in the 70s, respiratory rate 27 and 32, blood pressure 102/71. WBC 21.5, lymphocytes 0.6. D-dimer 7.29. Blood sugars running between 111 and 171. Ferritin level [id number]. ALT 54, alkaline phosphatase 152. CK 27, C-reactive protein 2.9. Repeat chest x-ray reveals borderline cardiomegaly with prominent pulmonary vascular markings. Diffuse increased lung markings are present. Correlate for heart failure. Atypical pneumonia should be considered. Lower extremity ultrasound negative for DVT bilaterally. 11/28: Patient remains in the intensive care unit and found sitting in a chair at the bedside. He is continued on BiPAP and switched over to Arava and nonrebreather for meals. Repeat chest x-ray essentially unchanged. Repeat blood work reveals WBC 20.4, hemoglobin 14.8, platelet count 130. Sodium 134, potassium 4.8, creatinine 0.62. LDH 2934. C-reactive protein 3.3, d-dimer 10.2. CT angiogram of the chest has been ordered by pulmonary medicine which revealed slightly suboptimal study without evidence of acute pulmonary embolism. Mild cardiomegaly with bilateral cities and multifocal organizing consolidations consistent with Covid19 infection. Lovenox has been changed to 40 mg daily and dexamethasone changed to Solu-Medrol 60 mg every 6 hours. Taco michelle has completed course of Baricitinib. 11/29: Patient remains in the intensive care unit, patient is utilizing BiPAP and also Airvo with nonrebreather mask added at times as he tolerates. His ox ygenation seems to be improving at 89-93%. Respiratory rate 24, heart rate 88, blood pressure 107/58. Patient does verbalize that he is feeling somewhat better today. WBC 16.4, hemoglobin 15.1, platelet count 120. D-dimer 13.49, C- reactive protein 2, LDH 2086, CK 47. Repeat chest x-ray reveals correlate for pneumonia, edema or pulmonary hemorrhage, there is cardiomegaly. Patient is currently continued on Lovenox, Solu-Medrol, bronchodilators and vitamin supplements. 11/30: Patient remains in intensive care unit, he sitting in a chair at the bedside. He is feeling a little bit better and breath sounds are sounding a little better from yesterday. He is currently on AirVO. Pulse ox is running 84-87%, he has been afebrile, heart rate in the 80s and 90s, respiratory rate in the 20s, blood pressure 110/67. Repeat blood work reveals WBC 19.4, platelet count 126. D-dimer 10.2, LDH 2157, CK 78, C-reactive protein 1.5. Sodium 135, BUN 44 creatinine 0.73. Patient is continued on Lovenox, IV Solu-Medrol, bronchodilators and supplements. 12/01: Patient remains in ICU, he is currently sitting in chair at the bedside. Patient continues to state that he feels a bit better breath sounds are sounding better compared to yesterday. He is currently on airflow. His pulse ox is running 87-89%, he is still short of breath with conversation. Patient has been afebrile, heart rate 72, respirations 28, blood pressure 109/61. WBC 16.0, hemoglobin 15.1, platelets 112, potassium 4.6, BUN 39, creatinine 0.84. Patient is continued on Lovenox, IV Solu-Medrol, bronchodilators and supplements. 12/02: Patient remains in ICU, he is currently sitting up in a chair at the bedside. Patient continues to have shortness of breath with activity and conversation. His chest x-ray unchanged to prior studies. D-dimer 5.96. Incentive spirometer is at the bedside however encouragement to utilize if needed. Patient has been afebrile, heart rate 85, respirations 28, blood pressure 138/86 pulse ox is 85-89% on Airvo. 12/03, patient remains ICU, he seems to be gradually improving, intending around for the better, has improvement on shortness of breath with conversation, nothing supple she did today for dyspnea, however with movement, he does have shortness of breath while in bed turning around. Patient has an airflow at 65 L, pulse ox 90%. No new fevers, no melena and hematochezia, nutrition is appropriate, and is getting better. 12/04: Patient remains in the intensive care unit. He is onAirVo with nonrebreather mask on standby. He did have a rise in his heart rate up to the 140s, atrial fibrillation with RVR and pulmonary has started the patient on amiodarone drip. He has been afebrile, respiratory rate 28, pulse ox 94-97%. WBC 18.7, hemoglobin 15.5, platelet count 131. Sodium 134, potassium 4.5, chloride 99, CO2 31, BUN 32 and creatinine 0.72. Blood sugars are running between 144 and 193. AST 71, ALT 283, alkaline phosphatase 82. LDH 1946, C- reactive protein 0.6. D-dimer 4.21. Repeat chest x-ray reveals worsening bilateral diffuse interstitial and patchy airspace disease. 12/05: Patient has been taken out of isolation by infection control. He is now on AirVo, FiO2 at 75%. He does have nonrebreather mask on standby but oxygen needs seem to be improving slightly. He seems to be slightly less short of breath. Nephrology has switched him to oral prednisone and off Solu-Medrol. Patient is on eliquis for atrial fibrillation. Heart rate is currently cont rolled and he has been afebrile. Amiodarone has been discontinued, echocardiogram ordered. Pulse ox is 88%, afebrile, blood pressure 111/72 and heart rate in the 80s. apprentice electrician sinus rhythm. Repeat blood work reveals WBC 20.4, hemoglobin 15.2, platelet count 109. Sodium 135, potassium 4.9, chloride 100, CO2 33, BUN 46 and creatinine 0.84. Blood sugars are running between 133 and 231. LDH 1616. 12/06: Patient had difficult is sleeping last night despite use of Remeron and having back pain issues. Tramadol at bedtime ordered. Patient remains in the intensive care unit, he has been moved out of isolation. He continues to be on airflow with pulse ox in the 80s. Blood pressure is soft this morning 85/53 and 92/67 for which fluid bolus of 500 ML's ordered. He's been afebrile, heart rate in the 80s. apprentice electrician sinus rhythm. Metoprolol was increased to 25 mg twice daily. Echocardiogram reveals EF of 50-55%. 12/07: She remains in intensive care unit but is doing poorly this morning. He had a large bright red and mostly dark stool last evening and a repeat this morning. Eliquis has been placed on hold, he is very quite vasopressors and started on levo. He is on Protonix 40 mg IV push twice daily. He is scheduled to receive 2 units of packed RBCs for drop in his hemoglobin to 9.4. He is currently receiving 2 L IV fluid bolus. Stool for occult blood was positive. Consult was added for Dr. Ojeda. He is currently on BiPAP at 100% with pulse ox of 100%, heart rate 104, respiratory rate 27, blood pressure 88/51. Other blood work today reveals WBC of 22.6, platelet count of 94. Creatinine 0.82 with BUN of 64. Blood sugars 173. Lactic acid 2.9. INR is 1.5, PTT 25.5, AST 69, ALT 200, LDH 1474. Alkaline phosphatase 57 urinalysis negative for infection. Patient had a previous colonoscopy with Dr. Reyes that was normal. 12/08: Yesterday, patient required intubation was placed on mechanical ventilation after becoming more hypotensive started on vasopressin and norepinephrine and status post 7 L of IV fluid. He is status post transfusion of a total of 4 units of packed RBCs and hemoglobin is currently at 7.8. He has had no further episodes of GI bleeding. Consult with nephrology has been added, potassium came back at 6.5 CAT scan of the abdomen and chest revealed pulmonary edema which is slightly improved. Evidence of new posterior pneumomediastinum, air around the lower thoracic esophagus. Decreased excretion of delayed images small amount of abdominal ascites. No bowel obstruction. Chest x-ray reveals low lung volume with bilateral multifocal and confluent opacities consistent with COVID-19. Patient was seen yesterday by general surgery and patient was tentatively scheduled for EGD and colonoscopy on 12/10: She remains intubated and on mechanical ventilation with tidal volume 375, FiO2 60, PEEP of 14. Patient went into A. fib with RVR uncontrolled status post bolus of amiodarone and fluid bolus, shock 3 without conversion and is currently at 140 bpm. He remains on norepinephrine and vasopressin but on lower doses. He is also on Nimbex and propofol. Patient is not on anticoagulation at this point due to GI bleed. Patient has been afebrile, respiratory rate 38, but pressure 86/51, pulse ox 97%. Repeat blood work reveals WBC 21.2, hemoglobin 8.5, platelet count 45. BUN 74 creatinine 2.42. Blood sugars running in the 200s and Levemir 10 units twice daily added along with scale. Magnesium 1.7. AST 2912, ALT 5134. Chest x-ray reveals low lung volumes with bilateral mul tifocal and confluent opacities consistent with Covid 19. REVIEW OF SYSTEMS Unable to obtain as patient is intubated and on mechanical ventilation PHYSICAL EXAMINATION Gen: This is a 60-year-old obese male sitting up in the ICU intubated and on mechanical ventilation. HEENT: Head is atraumatic, normocephalic. Pupils equal, round. Sclerae is anicteric, conjunctiva edema. Oral ET and gastric tubes in place. NECK: Supple. No JVD. No lymphadenopathy. No thyromegaly. LUNGS: Diminished with crackles in the bilateral bases. HEART: Regular rate and rhythm. No murmur. ABDOMEN: obese. Soft. Bowel sounds are present. No masses. No tenderness. EXTREMITIES: No pedal edema. No calf tenderness. NEUROLOGICAL: Patient is sedated. ASSESSMENT AND PLAN 1. Acute respiratory failure: Secondary to COVID-19 requiring intubation and mechanical ventilation, with possible secondary bacterial pneumonia, pulmonary m edicine, continue Ventolin inhaler, dexamethasone 4 mg IV daily, Zosyn, vancomycin, vitamin supplements. Patient is off Lovenox/eliquis due to GI bleed. 2. Sepsis (POA) secondary to COVID-19 pneumonia, with acute hypoxemic respiratory failure, diagnosis was of 11/08/2020. 3. Moderate protein calorie malnutrition secondary to poor oral intake. Oral gastric feedings to 4. New-onset atrial fibrillation with RVR, paroxysmal atrial fibrillation. Amiodarone drip status post boluses. Eliquis placed on hold. Echocardiogram as above. 5. Thrombocytopenia secondary to sepsis. 6. Acute GI bleed. Eliquis placed on hold, 4 units packed RBCs, IV fluid boluses, consult with Dr. Ojeda appreciated. Patient was scheduled for EGD colonoscopy on Sunday 12/10. 7. Acute hypovolemic shock or septic shock requiring vasopressors, massive IV fluid resuscitation. 8. Acute kidney injury with ATN secondary to septic shock. Consult with nephrology appreciated 9. Metabolic acidosis secondary to acute kidney injury. Bicarb drip discontinued by nephrology. 10. Severe hyperkalemia secondary to acute kidney injury. Followed by nephrology. 11. Shock liver secondary to hypotension. Monitor liver function test. 12. DVT prophylaxis. 13. GI prophylaxis. Protonic. 14. BPH. Mackenzie catheter 15. Proteinuria, unknown cause. 16. Dymetabolic syndrome, monitor for hyperglycemia, A1c 6.4. NovoLog scale every 4 hours, added Levemir 10 units twice daily. 17. Back pain. CODE Status: Full code Prognosis: guarded. Impression and plan of care have been directed as dictated by the signing physician. Sanam Valentine nurse practitioner acting as scribe for signing physician. Objective - Vital Signs Vital signs: Vital Signs Temp 98.6 F 12/09/20 08:00 Pulse 161 H 12/09/20 08:30 Resp 38 H 12/09/20 08:30 BP 104/64 12/09/20 06:15 Pulse Ox 97 12/09/20 08:30 Intake & Output 12/08/20 12/09/20 12/09/20 18:59 06:59 18:59 Intake Total 6334.439 2145.947 276.333 Output Total 365 380 30 Balance 5969.439 1765.947 246.333 Weight 132.6 kg Intake: IV 5555 1988 Dextrose 5% in Water , 0 1950 150 000 ml @ 150 mls/hr IV . Q7H40M HIRAM with Sodium Bicarb (1 Meq/ml) 150 ml Rx#:[id number] Dextrose 5% in Water 100 100 ml @ 618 mls/hr IV .Q10M ONE with Amiodarone 150 mg Rx#:[id number] Piperacillin-Tazobactam 3 200 .375 gm In Sodium Chloride 0.9% 100 ml @ 25 mls/hr IVPB Q8HR HIRAM Rx# :[id number] Pressure bags 57 39 3 Sodium Chloride 0.9% 1, 3750 000 ml @ 150 mls/hr IV . Q6H40M HIRAM Rx#:[id number] Vancomycin 2,000 mg In 500 Sodium Chloride 0.9% 500 ml 500 ml @ 167 mls/hr IVPB Q12H HIRAM Rx#: [id number] Intake, IV Titration 657.439 156.947 23.333 Amount Cisatracurium 200 mg In 136.981 Sodium Chloride 0.9% 180 ml @ 1 MCG/KG/MIN 6.492 mls/hr IV .Q24H HIRAM Rx#: [id number] Norepinephrine 32 mg In 420.458 156.947 23.333 Sodium Chloride 0.9% 218 ml @ 0.75 MCG/KG/MIN 38. 039 mls/hr IV .Q6H35M HIRAM Rx#:[id number] propofoL 1,000 mg In 100 Empty Bag 1 bag @ Titrate IV .Q0M HIRAM Rx#: [id number] Other 120 Output: Urine 364 380 30 Stool 1 Other: Voiding Method Indwelling Catheter Indwelling Catheter # Bowel Movements 1 ABP, PAP, CO, CI - Last Documented Arterial Blood Pressure 86/51 - Labs CBC & Chem 7: 12/09/20 03:15 12/09/20 00:47 Labs: Abnormal Lab Results - Last 24 Hours (Table) 12/08/20 12/08/20 12/08/20 Range/Units 10:45 10:45 10:45 WBC (3.8-10.6) k/uL RBC (4.30-5.90) m/uL Hgb (13.0-17.5) gm/dL Hct (39.0-53.0) % RDW (11.5-15.5) % Plt Count (150-450) k/uL Neutrophils # (Manual) (1.3-7.7) k/uL Lymphocytes # (Manual) (1.0-4.8) k/uL Metamyelocytes # (Man) (0) k/uL Nucleated RBCs (0-0) /100 WBC PT 16.7 H (9.0-12.0) sec INR 1.7 H (<1.2) APTT 32.8 H (22.0-30.0) sec ABG pH (7.35-7.45) ABG pCO2 (35-45) mmHg ABG pO2 (83-108) mmHg ABG HCO3 (21-25) mmol/L ABG Total CO2 (19-24) mmol/L ABG O2 Saturation (94-97) % ABG Lactic Acid (0.5-1.6) mmol/L Potassium (3.5-5.1) mmol/L Chloride (98-107) mmol/L BUN (9-20) mg/dL Creatinine (0.66-1.25) mg/dL Glucose (74-99) mg/dL POC Glucose (mg/dL) (75-99) mg/dL Plasma Lactic Acid Kadeem 4.9 H* (0.7-2.0) mmol/L Calcium (8.4-10.2) mg/dL Total Bilirubin (0.2-1.3) mg/dL AST (17-59) U/L ALT (4-49) U/L Total Protein (6.3-8.2) g/dL Albumin (3.5-5.0) g/dL Procalcitonin 2.01 H (0.02-0.09) ng/mL 12/08/20 12/08/20 12/08/20 Range/Units 10:45 10:45 11:06 WBC 28.5 H (3.8-10.6) k/uL RBC 2.74 L (4.30-5.90) m/uL Hgb 8.6 L D (13.0-17.5) gm/dL Hct 24.6 L (39.0-53.0) % RDW 16.2 H (11.5-15.5) % Plt Count 41 L (150-450) k/uL Neutrophils # (Manual) (1.3-7.7) k/uL Lymphocytes # (Manual) (1.0-4.8) k/uL Metamyelocytes # (Man) (0) k/uL Nucleated RBCs (0-0) /100 WBC PT (9.0-12.0) sec INR (<1.2) APTT (22.0-30.0) sec ABG pH (7.35-7.45) ABG pCO2 (35-45) mmHg ABG pO2 (83-108) mmHg ABG HCO3 (21-25) mmol/L ABG Total CO2 (19-24) mmol/L ABG O2 Saturation (94-97) % ABG Lactic Acid (0.5-1.6) mmol/L Potassium 5.3 H (3.5-5.1) mmol/L Chloride (98-107) mmol/L BUN (9-20) mg/dL Creatinine (0.66-1.25) mg/dL Glucose (74-99) mg/dL POC Glucose (mg/dL) 194 H (75-99) mg/dL Plasma Lactic Acid Kadeem (0.7-2.0) mmol/L Calcium (8.4-10.2) mg/dL Total Bilirubin (0.2-1.3) mg/dL AST (17-59) U/L ALT (4-49) U/L Total Protein (6.3-8.2) g/dL Albumin (3.5-5.0) g/dL Procalcitonin (0.02-0.09) ng/mL 12/08/20 12/08/20 12/08/20 Range/Units 17:22 17:39 17:40 WBC 26.5 H (3.8-10.6) k/uL RBC 2.85 L (4.30-5.90) m/uL Hgb 8.7 L (13.0-17.5) gm/dL Hct 25.8 L (39.0-53.0) % RDW 15.9 H (11.5-15.5) % Plt Count 43 L (150-450) k/uL Neutrophils # (Manual) (1.3-7.7) k/uL Lymphocytes # (Manual) (1.0-4.8) k/uL Metamyelocytes # (Man) (0) k/uL Nucleated RBCs (0-0) /100 WBC PT (9.0-12.0) sec INR (<1.2) APTT (22.0-30.0) sec ABG pH 7.22 L (7.35-7.45) ABG pCO2 54 H (35-45) mmHg ABG pO2 72 L (83-108) mmHg ABG HCO3 (21-25) mmol/L ABG Total CO2 (19-24) mmol/L ABG O2 Saturation 93.9 L (94-97) % ABG Lactic Acid (0.5-1.6) mmol/L Potassium (3.5-5.1) mmol/L Chloride (98-107) mmol/L BUN (9-20) mg/dL Creatinine (0.66-1.25) mg/dL Glucose (74-99) mg/dL POC Glucose (mg/dL) 238 H (75-99) mg/dL Plasma Lactic Acid Kadeem (0.7-2.0) mmol/L Calcium (8.4-10.2) mg/dL Total Bilirubin (0.2-1.3) mg/dL AST (17-59) U/L ALT (4-49) U/L Total Protein (6.3-8.2) g/dL Albumin (3.5-5.0) g/dL Procalcitonin (0.02-0.09) ng/mL 12/08/20 12/08/20 12/08/20 Range/Units 17:40 19:07 22:23 WBC (3.8-10.6) k/uL RBC (4.30-5.90) m/uL Hgb (13.0-17.5) gm/dL Hct (39.0-53.0) % RDW (11.5-15.5) % Plt Count (150-450) k/uL Neutrophils # (Manual) (1.3-7.7) k/uL Lymphocytes # (Manual) (1.0-4.8) k/uL Metamyelocytes # (Man) (0) k/uL Nucleated RBCs (0-0) /100 WBC PT (9.0-12.0) sec INR (<1.2) APTT (22.0-30.0) sec ABG pH (7.35-7.45) ABG pCO2 (35-45) mmHg ABG pO2 (83-108) mmHg ABG HCO3 (21-25) mmol/L ABG Total CO2 (19-24) mmol/L ABG O2 Saturation (94-97) % ABG Lactic Acid 3.1 H* (0.5-1.6) mmol/L Potassium (3.5-5.1) mmol/L Chloride 115 H (98-107) mmol/L BUN 70 H (9-20) mg/dL Creatinine 2.02 H (0.66-1.25) mg/dL Glucose 218 H (74-99) mg/dL POC Glucose (mg/dL) (75-99) mg/dL Plasma Lactic Acid Kadeem 2.7 H* (0.7-2.0) mmol/L Calcium 6.7 L (8.4-10.2) mg/dL Total Bilirubin (0.2-1.3) mg/dL AST (17-59) U/L ALT (4-49) U/L Total Protein (6.3-8.2) g/dL Albumin (3.5-5.0) g/dL Procalcitonin (0.02-0.09) ng/mL 12/08/20 12/08/20 12/09/20 Range/Units 22:26 23:24 00:47 WBC (3.8-10.6) k/uL RBC (4.30-5.90) m/uL Hgb (13.0-17.5) gm/dL Hct (39.0-53.0) % RDW (11.5-15.5) % Plt Count (150-450) k/uL Neutrophils # (Manual) (1.3-7.7) k/uL Lymphocytes # (Manual) (1.0-4.8) k/uL Metamyelocytes # (Man) (0) k/uL Nucleated RBCs (0-0) /100 WBC PT (9.0-12.0) sec INR (<1.2) APTT (22.0-30.0) sec ABG pH (7.35-7.45) ABG pCO2 (35-45) mmHg ABG pO2 (83-108) mmHg ABG HCO3 (21-25) mmol/L ABG Total CO2 (19-24) mmol/L ABG O2 Saturation (94-97) % ABG Lactic Acid (0.5-1.6) mmol/L Potassium (3.5-5.1) mmol/L Chloride 112 H (98-107) mmol/L BUN 74 H (9-20) mg/dL Creatinine 2.42 H (0.66-1.25) mg/dL Glucose 214 H (74-99) mg/dL POC Glucose (mg/dL) 243 H 240 H (75-99) mg/dL Plasma Lactic Acid Kadeem (0.7-2.0) mmol/L Calcium 6.7 L (8.4-10.2) mg/dL Total Bilirubin 1.5 H (0.2-1.3) mg/dL AST 2912 H (17-59) U/L ALT 5134 H (4-49) U/L Total Protein 3.0 L (6.3-8.2) g/dL Albumin 1.7 L (3.5-5.0) g/dL Procalcitonin (0.02-0.09) ng/mL 12/09/20 12/09/20 12/09/20 Range/Units 03:15 03:15 03:17 WBC 21.2 H (3.8-10.6) k/uL RBC 2.65 L (4.30-5.90) m/uL Hgb 8.5 L (13.0-17.5) gm/dL Hct 23.5 L (39.0-53.0) % RDW 16.8 H (11.5-15.5) % Plt Count 45 L (150-450) k/uL Neutrophils # (Manual) 20.10 H (1.3-7.7) k/uL Lymphocytes # (Manual) 0.85 L (1.0-4.8) k/uL Metamyelocytes # (Man) 0.21 H (0) k/uL Nucleated RBCs 3 H (0-0) /100 WBC PT (9.0-12.0) sec INR (<1.2) APTT (22.0-30.0) sec ABG pH (7.35-7.45) ABG pCO2 (35-45) mmHg ABG pO2 (83-108) mmHg ABG HCO3 (21-25) mmol/L ABG Total CO2 (19-24) mmol/L ABG O2 Saturation (94-97) % ABG Lactic Acid (0.5-1.6) mmol/L Potassium (3.5-5.1) mmol/L Chloride (98-107) mmol/L BUN (9-20) mg/dL Creatinine (0.66-1.25) mg/dL Glucose (74-99) mg/dL POC Glucose (mg/dL) 226 H (75-99) mg/dL Plasma Lactic Acid Kadeem 2.6 H* (0.7-2.0) mmol/L Calcium (8.4-10.2) mg/dL Total Bilirubin (0.2-1.3) mg/dL AST (17-59) U/L ALT (4-49) U/L Total Protein (6.3-8.2) g/dL Albumin (3.5-5.0) g/dL Procalcitonin (0.02-0.09) ng/mL 12/09/20 12/09/20 Range/Units 05:29 06:49 WBC (3.8-10.6) k/uL RBC (4.30-5.90) m/uL Hgb (13.0-17.5) gm/dL Hct (39.0-53.0) % RDW (11.5-15.5) % Plt Count (150-450) k/uL Neutrophils # (Manual) (1.3-7.7) k/uL Lymphocytes # (Manual) (1.0-4.8) k/uL Metamyelocytes # (Man) (0) k/uL Nucleated RBCs (0-0) /100 WBC PT (9.0-12.0) sec INR (<1.2) APTT (22.0-30.0) sec ABG pH 7.26 L (7.35-7.45) ABG pCO2 57 H (35-45) mmHg ABG pO2 (83-108) mmHg ABG HCO3 26 H (21-25) mmol/L ABG Total CO2 27 H (19-24) mmol/L ABG O2 Saturation 97.4 H (94-97) % ABG Lactic Acid (0.5-1.6) mmol/L Potassium (3.5-5.1) mmol/L Chloride (98-107) mmol/L BUN (9-20) mg/dL Creatinine (0.66-1.25) mg/dL Glucose (74-99) mg/dL POC Glucose (mg/dL) 225 H (75-99) mg/dL Plasma Lactic Acid Kadeem (0.7-2.0) mmol/L Calcium (8.4-10.2) mg/dL Total Bilirubin (0.2-1.3) mg/dL AST (17-59) U/L ALT (4-49) U/L Total Protein (6.3-8.2) g/dL Albumin (3.5-5.0) g/dL Procalcitonin (0.02-0.09) ng/mL Microbiology - Last 24 Hours (Table) 12/08/20 08:00 Urine Culture - Preliminary Urine,Voided 12/07/20 10:06 Blood Culture - Preliminary Blood No Growth after 24 hours
[2020-12-09] MEDS: ALBUTEROL HFA INHALER INHALATION PRN ×3 (11:07→19:16)
[2020-12-09] MEDS: VANCOMYCIN 2,000 MG in SODIUM CHLORIDE 0.9% 500 ML 500 ML IVPB SCH (11:07)
[2020-12-09] MEDS ORDERED: HYDROmorphone 1 MG/ML 1 ML SYRINGE IVP STA (11:10)
[2020-12-09] MEDS: ASCORBIC ACID 500 MG TAB PO SCH ×2 (11:58→20:07)
[2020-12-09] MEDS: PANTOPRAZOLE 40 MG/10 ML VIAL IVP SCH ×2 (11:58→20:19)
[2020-12-09] MEDS: CHOLECALCIFEROL 25 MCG (1000 IU) TABLET PO SCH (11:59)
[2020-12-09] MEDS: DEXAMETHASONE SOD PHOSPHATE 4 MG/ML 1 ML VIAL IV SCH (11:59)
[2020-12-09] MEDS: CHLORHEXIDINE GLUCONATE 15 ML CUP MUCOUS MEM SCH ×2 (11:59→20:19)
[2020-12-09] MEDS: ZINC SULFATE 220 MG CAP PO SCH (11:59)
[2020-12-09 12:03] LABS: Glucose,Whole Blood 199 mg/dL (75-99)
--- NOTE | 2020-12-09 12:04 | P.PN ---
Progress Note - Text Progress Note Date: 12/09/20 Patient still is having some melanotic stools. He has been hypotensive with systolic blood pressures in the 80s. He has a fibrillation with rapid ventricular rate. Abdomen soft. Endoscopy is scheduled for tomorrow. However the patient remains unstable. We will reschedule his endoscopy for when he is stable.
[2020-12-09] MEDS: AMIODARONE 360 MG in DEXTROSE 5% IN WATER 200 ML IV ONE ×4 (12:26→18:16)
[2020-12-09] MEDS ORDERED: AMIODARONE 450 MG in DEXTROSE 5% IN WATER 250 ML IV SCH ×2 (13:30)
[2020-12-09] MEDS: NOREPINEPHRINE 32 MG in SODIUM CHLORIDE 0.9% 218 ML IV SCH ×2 (14:52→17:30)
[2020-12-09 16:33] LABS: Glucose,Whole Blood 189 mg/dL (75-99)
[2020-12-09] MEDS ORDERED: AMIODARONE 360 MG in DEXTROSE 5% IN WATER 200 ML IV SCH ×4 (18:30→19:47)
[2020-12-09 20:05] LABS: Glucose,Whole Blood 171 mg/dL (75-99)
[2020-12-09] MEDS: MELATONIN 3 MG TABLET PO SCH (20:12)
[2020-12-09] MEDS: CISATRACURIUM 200 MG in SODIUM CHLORIDE 0.9% 180 ML IV SCH (20:17)
[2020-12-09] MEDS: AMIODARONE 450 MG in DEXTROSE 5% IN WATER 250 ML IV SCH ×2 (20:27)
[2020-12-09] MEDS: INSULIN DETEMIR (LEVEMIR) 100 UNIT/ML SYR SQ SCH (20:30)
[2020-12-09 23:33] LABS: Glucose,Whole Blood 156 mg/dL (75-99)
[2020-12-10 04:10] LABS: Glucose,Whole Blood 147 mg/dL (75-99)
[2020-12-10] MEDS: NOREPINEPHRINE 32 MG in SODIUM CHLORIDE 0.9% 218 ML IV SCH ×4 (04:12→20:29)
[2020-12-10] MEDS: ARTIFICIAL TEARS-HYPROMELLOSE DROPS 15 ML BTL BOTH EYES SCH ×6 (04:14→23:40)
[2020-12-10] MEDS: SODIUM CHLORIDE 0.9% 1,000 ML IV SCH ×2 (04:14→17:57)
[2020-12-10] MEDS: INSULIN ASPART (NovoLOG) 100 UNIT/ML VIAL SQ SCH ×6 (04:20→23:39)
[2020-12-10 04:29] LABS: Anisocytosis Slight; HCT 20.1 % (39.0-53.0); HGB 7.1 gm/dL (13.0-17.5); MCH 31.6 pg (25.0-35.0); MCHC 35.4 g/dL (31.0-37.0); MCV 89.3 fL (80.0-100.0); Mean Platelet Volume 10.8; Poikilocytosis Slight; RBC 2.25 m/uL (4.30-5.90); RDW 17.1 % (11.5-15.5)
[2020-12-10 04:33] LABS: INR 1.1 (<1.2)
[2020-12-10 04:36] LABS: Platelet Count 28 k/uL (150-450)
[2020-12-10 04:51] LABS: Band Neutrophils % 6 %; Metamyelocytes % 2 %; Myelocytes % 1 %; Neutrophils % (M) 84 %; Nucleated Red Blood Cells 7 /100 WBC (0-0); Total Cells Counted 200
[2020-12-10 04:52] LABS: Lymphocytes # (M) 1.19 k/uL (1.0-4.8); WBC 19.9 k/uL (3.8-10.6)
[2020-12-10 04:53] LABS: Anisocytosis (M) Present; Polychromasia Present
[2020-12-10 05:05] LABS: Albumin 1.7 g/dL (3.5-5.0); Calcium 6.8 mg/dL (8.4-10.2); Magnesium 1.8 mg/dL (1.6-2.3); Phosphorus 4.8 mg/dL (2.5-4.5); Potassium 4.2 mmol/L (3.5-5.1); Total Protein 3.1 g/dL (6.3-8.2)
[2020-12-10 05:49] LABS: ABG Base Excess 1.6 mmol/L; ABG HCO3 28 mmol/L (21-25); ABG Oxygen Saturation 89.4 % (94-97); ABG PCO2 53 mmHg (35-45); ABG PH 7.33 (7.35-7.45); ABG TCO2 29 mmol/L (19-24); Allen Test Performed? Yes
[2020-12-10 05:53] LABS: ABG PO2 57 mmHg (83-108)
[2020-12-10 07:54] LABS: Glucose,Whole Blood 143 mg/dL (75-99)
--- NOTE | 2020-12-10 07:59 | XR ---
EXAMINATION TYPE: XR chest 1V portable DATE OF EXAM: 12/10/2020 Comparison: 12/09/2020 Clinical History: 60-year-old male Tube placement Findings: ET tube tip 2.7 cm from the kamilah. NG tube courses below the diaphragm. Heart borderline enlarged. D iffuse interstitial and confluent airspace opacity bilaterally shows worsening at the left base. Righ t CVC tip obscured by multiple overlying leads. Impression: Continued bilateral diffuse airspace disease. Worsening now at the left base.
[2020-12-10] MEDS: ALBUTEROL HFA INHALER INHALATION PRN ×3 (08:36→16:05)
[2020-12-10 08:40] LABS: Glucose,Whole Blood 129 mg/dL (75-99)
[2020-12-10] MEDS: PANTOPRAZOLE 40 MG/10 ML VIAL IVP SCH ×2 (08:41→20:27)
[2020-12-10] MEDS: ZINC SULFATE 220 MG CAP PO SCH ×2 (08:41→08:54)
[2020-12-10] MEDS: DEXAMETHASONE SOD PHOSPHATE 4 MG/ML 1 ML VIAL IV SCH (08:41)
[2020-12-10] MEDS: PIPERACILLIN-TAZOBACTAM 3.375 GM in SODIUM CHLORIDE 0.9% 100 ML IVPB SCH ×3 (08:41→23:40)
[2020-12-10] MEDS: CHLORHEXIDINE GLUCONATE 15 ML CUP MUCOUS MEM SCH ×2 (08:41→20:27)
[2020-12-10] MEDS: VANCOMYCIN 2,000 MG in SODIUM CHLORIDE 0.9% 500 ML 500 ML IVPB SCH (08:53)
[2020-12-10] MEDS: ASCORBIC ACID 500 MG TAB PO SCH ×2 (08:53→20:27)
[2020-12-10] MEDS: INSULIN DETEMIR (LEVEMIR) 100 UNIT/ML SYR SQ SCH ×2 (08:53→20:27)
[2020-12-10] MEDS: CHOLECALCIFEROL 25 MCG (1000 IU) TABLET PO SCH (08:54)
[2020-12-10] MEDS ORDERED: VANCOMYCIN IV PER PHARMACY 1 EACH MISC MISCELLANE PRN (09:01)
[2020-12-10] MEDS: fentaNYL (PF). 1,000 MCG in SODIUM CHLORIDE 0.9% 80 ML IV SCH ×3 (09:33→16:03)
[2020-12-10 11:53] LABS: Glucose,Whole Blood 134 mg/dL (75-99)
--- NOTE | 2020-12-10 12:23 | P.PN ---
Subjective Progress Note Date: 12/10/20 Principal diagnosis: COVID-19 pneumonia On 12/10/2020 patient seen in follow-up in intensive care unit, he was intubated and placed on mechanical ventilator last Thursday on 12/07/2020. Patient at the time he has developed worsening hypoxic respiratory failure and acute GI blood loss anemia and Hemorrhagic shock requiring transfusion with 4 units of packed red blood cells, K Sentra infusion for reversal of Eliquis, and she was fluid resuscitated with a total of 7 L of fluid. At the same time she was intubated and placed on mechanical ventilator on which he remains today, he is currently on assist control mode of ventilation with a rate of 30, tidal M is 375, FiO2 of 60% and PEEP of 12. This morning's blood gas shows pO2 of 57, pCO2 of 53 a pH of 7.33, and this was on FiO2 of 60%. Patient has been weaned off the vasopressor support, his Levothroid and vasopressin have been off for over 24 hours, he is currently complaining of a rate of 75 ML per hour, amiodarone is at 0.5 mg per hour, and index is at 1 davon per kilo per minute, Diprivan is a 35 mics per kilo per minute. Patient has not had any further bleeding since yesterday. His chest x-ray shows continued bilateral diffuse airspace disease, with worsening at the left base. Patient is still tachycardic with a rate in the 140s BPM and what appears to be in sinus mechanism. Today's labs have been reviewed, showing improving white count which is down to 19.9, hemoglobin is 7.1, platelet count is 28, sodium is 140, potassium is 4.2, chloride is 111, CO2 is 28, BUN is 86, creatinine 2.91, and the patient's renal profile has slightly worsened since yesterday. His AST is improving and is down to 794 from 2912, ALT is 3274, improving, patient has not had a LDH and CRP done in the last 3 or 4 days. Cortisol level was 35 2 days ago, urinalysis without sign of infection, stool for occult blood was positive, his anticoagulation remains on hold. His PICC line has been removed, and catheter tip culture is pending at this time, all his blood and urine cultures have remained negative thus far. Patient remains on multivitamins, she remains on Decadron currently at 4 mg daily, he is on Protonix 40 mg twice daily, he remains on empiric antibiotics in the form of Zosyn and vancomycin. His urine output has been in the order of 45-50 ML per hour. Objective - Vital Signs Vital signs: Vital Signs Temp 98.7 F 12/10/20 08:00 Pulse 129 H 12/10/20 11:15 Resp 38 H 12/10/20 11:15 BP 118/67 12/10/20 05:00 Pulse Ox 92 L 12/10/20 11:15 Intake & Output 12/09/20 12/10/20 12/10/20 18:59 06:59 18:59 Intake Total 2254.789 1122.059 412 Output Total 480 525 275 Balance 1774.789 597.059 137 Weight 136.3 kg 136.3 kg Intake: IV 1833 936 412 Dextrose 5% in Water 1, 150 000 ml @ 150 mls/hr IV . Q7H40M [facility] with Sodium Bicarb (1 Meq/ml) 150 ml Rx#:[id number] Dextrose 5% in Water 100 300 ml @ 618 mls/hr IV .Q10M ONE with Amiodarone 150 mg Rx#:[id number] Piperacillin-Tazobactam 3 100 100 .375 gm In Sodium Chloride 0.9% 100 ml @ 25 mls/hr IVPB Q8HR [facility] Rx# :[id number] Pressure bags 33 36 12 Sodium Chloride 0.9% 1, 750 900 300 000 ml @ 75 mls/hr IV . [id number] [facility] Rx#:[id number] Vancomycin 2,000 mg In 500 Sodium Chloride 0.9% 500 ml 500 ml @ 167 mls/hr IVPB Q12H [facility] Rx#: [id number] Intake, IV Titration 421.789 186.059 0 Amount Amiodarone 360 mg In 194.442 Dextrose 5% in Water 200 ml @ 1 MG/MIN 33.333 mls/ hr IV .Q6H ONE Rx#: [id number] Norepinephrine 32 mg In 127.347 4.26 0 Sodium Chloride 0.9% 218 ml @ 0.75 MCG/KG/MIN 38. 039 mls/hr IV .Q6H35M [facility] Rx#:[id number] propofoL 1,000 mg In 100 181.799 Empty Bag 1 bag @ Titrate IV .Q0M [facility] Rx#: [id number] Blood Product 0 Rc As-1 Unit 0 [id number] Output: Gastric Drainage 50 Urine 430 525 275 Other: Voiding Method Indwelling Catheter Indwelling Catheter Indwelling Catheter # Bowel Movements 1 ABP, PAP, CO, CI - Last Documented Arterial Blood Pressure 104/60 - Exam GENERAL EXAM: 60-year-old white male, on assist-control mode of ventilation sedated and paralyzed with FiO2 of 60%, and PEEP of 12 HEAD: Normocephalic/atraumatic. EYES: Normal reaction of pupils, equal size. Conjunctiva pink, sclera white. NOSE: Clear with pink turbinates. THROAT: No erythema or exudates. NECK: No masses, no JVD, no thyroid enlargement, no adenopathy. CHEST: No chest wall deformity. Symmetrical expansion. LUNGS: Equal air entry with no crackles, wheeze, rhonchi or dullness. CVS: Regular rate and rhythm, normal S1 and S2, no gallops, no murmurs, no rubs ABDOMEN: Soft, nontender. No hepatosplenomegaly, normal bowel sounds, no guarding or rigidity. EXTREMITIES: No clubbing, no edema, no cyanosis, 2+ pulses and upper and lower extremities. MUSCULOSKELETAL: Muscle strength and tone normal. SPINE: No scoliosis or deformity SKIN: No rashes CENTRAL NERVOUS SYSTEM: Sedated, paralyzed and intubated No focal deficits, tone is normal in all 4 extremities. - Labs CBC & Chem 7: 12/10/20 04:24 12/10/20 04:24 Labs: Abnormal Lab Results - Last 24 Hours (Table) 12/07/20 12/09/20 12/09/20 Range/Units 10:06 16:23 20:04 WBC (3.8-10.6) k/uL RBC (4.30-5.90) m/uL Hgb (13.0-17.5) gm/dL Hct (39.0-53.0) % RDW (11.5-15.5) % Plt Count (150-450) k/uL Neutrophils # (Manual) (1.3-7.7) k/uL Metamyelocytes # (Man) (0) k/uL Myelocytes # (Manual) (0) k/uL Nucleated RBCs (0-0) /100 WBC ABG pH (7.35-7.45) ABG pCO2 (35-45) mmHg ABG pO2 (83-108) mmHg ABG HCO3 (21-25) mmol/L ABG Total CO2 (19-24) mmol/L ABG O2 Saturation (94-97) % Chloride (98-107) mmol/L BUN (9-20) mg/dL Creatinine (0.66-1.25) mg/dL Glucose (74-99) mg/dL POC Glucose (mg/dL) 189 H 171 H (75-99) mg/dL Calcium (8.4-10.2) mg/dL Phosphorus (2.5-4.5) mg/dL AST (17-59) U/L ALT (4-49) U/L Total Protein (6.3-8.2) g/dL Albumin (3.5-5.0) g/dL Crossmatch See Detail 12/09/20 12/10/20 12/10/20 Range/Units 23:31 04:09 04:24 WBC 19.9 H (3.8-10.6) k/uL RBC 2.25 L (4.30-5.90) m/uL Hgb 7.1 L (13.0-17.5) gm/dL Hct 20.1 L (39.0-53.0) % RDW 17.1 H (11.5-15.5) % Plt Count 28 L (150-450) k/uL Neutrophils # (Manual) 17.90 H (1.3-7.7) k/uL Metamyelocytes # (Man) 0.40 H (0) k/uL Myelocytes # (Manual) 0.20 H (0) k/uL Nucleated RBCs 7 H (0-0) /100 WBC ABG pH (7.35-7.45) ABG pCO2 (35-45) mmHg ABG pO2 (83-108) mmHg ABG HCO3 (21-25) mmol/L ABG Total CO2 (19-24) mmol/L ABG O2 Saturation (94-97) % Chloride (98-107) mmol/L BUN (9-20) mg/dL Creatinine (0.66-1.25) mg/dL Glucose (74-99) mg/dL POC Glucose (mg/dL) 156 H 147 H (75-99) mg/dL Calcium (8.4-10.2) mg/dL Phosphorus (2.5-4.5) mg/dL AST (17-59) U/L ALT (4-49) U/L Total Protein (6.3-8.2) g/dL Albumin (3.5-5.0) g/dL Crossmatch 12/10/20 12/10/20 12/10/20 Range/Units 04:24 05:44 07:53 WBC (3.8-10.6) k/uL RBC (4.30-5.90) m/uL Hgb (13.0-17.5) gm/dL Hct (39.0-53.0) % RDW (11.5-15.5) % Plt Count (150-450) k/uL Neutrophils # (Manual) (1.3-7.7) k/uL Metamyelocytes # (Man) (0) k/uL Myelocytes # (Manual) (0) k/uL Nucleated RBCs (0-0) /100 WBC ABG pH 7.33 L (7.35-7.45) ABG pCO2 53 H (35-45) mmHg ABG pO2 57 L* (83-108) mmHg ABG HCO3 28 H (21-25) mmol/L ABG Total CO2 29 H (19-24) mmol/L ABG O2 Saturation 89.4 L (94-97) % Chloride 111 H (98-107) mmol/L BUN 86 H (9-20) mg/dL Creatinine 2.91 H (0.66-1.25) mg/dL Glucose 128 H (74-99) mg/dL POC Glucose (mg/dL) 143 H (75-99) mg/dL Calcium 6.8 L (8.4-10.2) mg/dL Phosphorus 4.8 H (2.5-4.5) mg/dL AST 794 H (17-59) U/L ALT 3274 H (4-49) U/L Total Protein 3.1 L (6.3-8.2) g/dL Albumin 1.7 L (3.5-5.0) g/dL Crossmatch 12/10/20 12/10/20 Range/Units 08:39 11:52 WBC (3.8-10.6) k/uL RBC (4.30-5.90) m/uL Hgb (13.0-17.5) gm/dL Hct (39.0-53.0) % RDW (11.5-15.5) % Plt Count (150-450) k/uL Neutrophils # (Manual) (1.3-7.7) k/uL Metamyelocytes # (Man) (0) k/uL Myelocytes # (Manual) (0) k/uL Nucleated RBCs (0-0) /100 WBC ABG pH (7.35-7.45) ABG pCO2 (35-45) mmHg ABG pO2 (83-108) mmHg ABG HCO3 (21-25) mmol/L ABG Total CO2 (19-24) mmol/L ABG O2 Saturation (94-97) % Chloride (98-107) mmol/L BUN (9-20) mg/dL Creatinine (0.66-1.25) mg/dL Glucose (74-99) mg/dL POC Glucose (mg/dL) 129 H 134 H (75-99) mg/dL Calcium (8.4-10.2) mg/dL Phosphorus (2.5-4.5) mg/dL AST (17-59) U/L ALT (4-49) U/L Total Protein (6.3-8.2) g/dL Albumin (3.5-5.0) g/dL Crossmatch Microbiology - Last 24 Hours (Table) 12/09/20 06:20 Catheter Tip Culture - Preliminary Picc Line 12/07/20 10:06 Blood Culture - Preliminary Blood No Growth after 48 hours 12/08/20 08:00 Urine Culture - Preliminary Urine,Voided Assessment and Plan Plan: #1. acute Covid 19 related pneumonia. Patient is not vaccinated. The patient has not received any outpatient treatments for Covid 19 infection. Diagnosis established during this current admission. Started on Bariticinib on 11/15/2020 in view of worsening hypoxic respiratory failure. Patient was outside the window for Remdesivir. Intubated on 12/07/2020 #2. acute hypoxic respiratory failure which has significantly progressed since admission, and patient is currently on Airvo at 60 L and FiO2 of 94% in addition to nonrebreather mask, and his pulse ox is 85%. In view of worsening chest x- ray findings and worsening hypoxia patient will be transferred to the intensive care unit today on 11/22/2020, intubated on 12/07/2020 #3. Paroxysmal atrial fibrillation, with a rapid ventricular response, remains on amiodarone, he failed cardioversion #4. Acute hemorrhagic shock related to acute GI bleeding with possibility of upper GI bleed. Eliquis is on hold, patient received aggressive fluid resuscitation, 4 units of packed red blood cells and Kcentra #5. Acute thrombocytopenia, likely consumptive, no clear indication for DIC, the resident coagulation profile is within normal limits #6. Possibility of a septic shock seems to be less likely, thus far the blood cultures remain negative and patient is covered with a combination of Zosyn and vancomycin. #7. Acute leukocytosis, improving #8. Transaminitis related to sepsis/hypotension and shock, improving #9. Limited pneumomediastinum evident on the computed tomography scan of the abdomen #10. Acute kidney injury with today's creatinine up to 2.91, related to ATN, nephrology is on the case #11. obesity with a BMI of 38. #12. Increased inflammatory markers related to acute COVID-19 pneumonia #13. Increased d-dimer, related to viral pneumonia, currently on Lovenox 40 mg twice daily, will obtain lower extremity Dopplers Plan: Continue current vent settings No plans for paralytic or sedation holiday We will add a fentanyl infusion at a low rate as 0.25 mics per kilo per hour Hemodynamically patient is more stable, no evidence of active bleeding, he is off vasopressor support Today's hemoglobin is 7.1, we'll transfuse with 1 unit of packed red blood cells Continue holding anticoagulation Continue monitoring for bleeding Surgical consultation has been placed Continue PPI with Protonix 40 mg twice daily Continue current dose Decadron Feeding remains on hold until cleared by surgery Today's labs have been noted Patient still tachycardic, remains on amiodarone infusion Nephrology is following in regards to acute kidney injury We'll continue to follow closely in the intensive care unit Prognosis is guarded I performed a history & physical examination of the patient and discussed their management with my nurse practitioner, Jovita Thomas. I reviewed the nurse practitioner's note and agree with the documented findings and plan of care. Lung sounds are positive for diminished breath sounds throughout the lung felix. The findings and the impression was discussed with the patient. I a ttest to the documentation by the nurse practitioner. Time with Patient: Greater than 30
[2020-12-10] MEDS ORDERED: FUROSEMIDE 10 MG/ML 4 ML VIAL IV STA (12:38)
[2020-12-10 13:08] LABS: Anisocytosis Slight; HCT 24.7 % (39.0-53.0); MCHC 35.2 g/dL (31.0-37.0); MCV 88.1 fL (80.0-100.0); Poikilocytosis Slight; RBC 2.81 m/uL (4.30-5.90); RDW 16.8 % (11.5-15.5); WBC 27.1 k/uL (3.8-10.6)
[2020-12-10 13:10] LABS: HGB 8.7 gm/dL (13.0-17.5); Platelet Count 32 k/uL (150-450)
--- NOTE | 2020-12-10 13:39 | P.PN ---
Subjective Progress Note Date: 12/10/20 CHIEF COMPLAINT: COVID-19 pneumonia HISTORY OF PRESENT ILLNESS: Surgical service following due to GI bleed. Patient remains in the ICU intubated and on mechanical ventilation. Patient has been weaned off of the Levophed and vasopressin. Patient has had no further bleeding since yesterday. Patient is tachycardic. Respiratory rate 38. Blood pressure 103/65. WBC is 27.1 hemoglobin 8.7 platelets 32 PHYSICAL EXAM: VITAL SIGNS: Reviewed. GENERAL: Well-developed in no acute distress. HEENT: No sclera icterus. Extraocular movements grossly intact. Moist buccal mucosa. Head is atraumatic, normocephalic. ABDOMEN: Soft. Nondistended. Nontender. NEUROLOGIC: Patient is intubated and sedated ASSESSMENT: 1. Acute GI bleed 2. Acute blood loss anemia requiring blood transfusion during this admission 3. Tachycardic and hypotensive secondary to acute blood loss anemia PLAN: -Patient is unstable. We'll plan for EGD and colonoscopy when medically stable -Continue ICU management -Continue supportive care -Continue to monitor hemoglobin -Continue to monitor for any signs or symptoms of bleeding -Continue to hold anticoagulation Physician Membership Sales Advisor note has been reviewed by physician. Signing provider agrees with the documented findings, assessment, and plan of care. Objective - Vital Signs Vital signs: Vital Signs Temp 98.4 F 12/10/20 12:00 Pulse 138 H 12/10/20 12:15 Resp 38 H 12/10/20 12:15 BP 118/67 12/10/20 05:00 Pulse Ox 90 L 12/10/20 12:15 Intake & Output 12/09/20 12/10/20 12/10/20 18:59 06:59 18:59 Intake Total 2254.789 1122.059 497.25 Output Total 480 525 305 Balance 1774.789 597.059 192.25 Weight 136.3 kg 136.3 kg Intake: IV 1833 936 490 Dextrose 5% in Water 1, 150 000 ml @ 150 mls/hr IV . Q7H40M [facility] with Sodium Bicarb (1 Meq/ml) 150 ml Rx#:[id number] Dextrose 5% in Water 100 300 ml @ 618 mls/hr IV .Q10M ONE with Amiodarone 150 mg Rx#:[id number] Piperacillin-Tazobactam 3 100 100 .375 gm In Sodium Chloride 0.9% 100 ml @ 25 mls/hr IVPB Q8HR [facility] Rx# :[id number] Pressure bags 33 36 15 Sodium Chloride 0.9% 1, 750 900 375 000 ml @ 75 mls/hr IV . [id number] [facility] Rx#:[id number] Vancomycin 2,000 mg In 500 Sodium Chloride 0.9% 500 ml 500 ml @ 167 mls/hr IVPB Q12H [facility] Rx#: [id number] Intake, IV Titration 421.789 186.059 7.25 Amount Amiodarone 360 mg In 194.442 Dextrose 5% in Water 200 ml @ 1 MG/MIN 33.333 mls/ hr IV .Q6H [facility] Rx#: [id number] Norepinephrine 32 mg In 127.347 4.26 0 Sodium Chloride 0.9% 218 ml @ 0.75 MCG/KG/MIN 38. 039 mls/hr IV .Q6H35M [facility] Rx#:[id number] fentaNYL (PF). 1,000 mcg 7.25 In Sodium Chloride 0.9% 80 ml @ 25 MCG/HR 2.5 mls /hr IV .Q24H [facility] Rx#: [id number] propofoL 1,000 mg In 100 181.799 Empty Bag 1 bag @ Titrate IV .Q0M [facility] Rx#: [id number] Blood Product 0 Rc As-1 Unit 0 [id number] Output: Gastric Drainage 50 Urine 430 525 305 Other: Voiding Method Indwelling Catheter Indwelling Catheter Indwelling Catheter # Bowel Movements 1 ABP, PAP, CO, CI - Last Documented Arterial Blood Pressure 112/66 - Labs CBC & Chem 7: 12/10/20 12:49 12/10/20 04:24 Labs: Abnormal Lab Results - Last 24 Hours (Table) 12/07/20 12/09/20 12/09/20 Range/Units 10:06 16:23 20:04 WBC (3.8-10.6) k/uL RBC (4.30-5.90) m/uL Hgb (13.0-17.5) gm/dL Hct (39.0-53.0) % RDW (11.5-15.5) % Plt Count (150-450) k/uL Neutrophils # (Manual) (1.3-7.7) k/uL Metamyelocytes # (Man) (0) k/uL Myelocytes # (Manual) (0) k/uL Nucleated RBCs (0-0) /100 WBC ABG pH (7.35-7.45) ABG pCO2 (35-45) mmHg ABG pO2 (83-108) mmHg ABG HCO3 (21-25) mmol/L ABG Total CO2 (19-24) mmol/L ABG O2 Saturation (94-97) % Chloride (98-107) mmol/L BUN (9-20) mg/dL Creatinine (0.66-1.25) mg/dL Glucose (74-99) mg/dL POC Glucose (mg/dL) 189 H 171 H (75-99) mg/dL Calcium (8.4-10.2) mg/dL Phosphorus (2.5-4.5) mg/dL AST (17-59) U/L ALT (4-49) U/L Total Protein (6.3-8.2) g/dL Albumin (3.5-5.0) g/dL Crossmatch See Detail 12/09/20 12/10/20 12/10/20 Range/Units 23:31 04:09 04:24 WBC 19.9 H (3.8-10.6) k/uL RBC 2.25 L (4.30-5.90) m/uL Hgb 7.1 L (13.0-17.5) gm/dL Hct 20.1 L (39.0-53.0) % RDW 17.1 H (11.5-15.5) % Plt Count 28 L (150-450) k/uL Neutrophils # (Manual) 17.90 H (1.3-7.7) k/uL Metamyelocytes # (Man) 0.40 H (0) k/uL Myelocytes # (Manual) 0.20 H (0) k/uL Nucleated RBCs 7 H (0-0) /100 WBC ABG pH (7.35-7.45) ABG pCO2 (35-45) mmHg ABG pO2 (83-108) mmHg ABG HCO3 (21-25) mmol/L ABG Total CO2 (19-24) mmol/L ABG O2 Saturation (94-97) % Chloride (98-107) mmol/L BUN (9-20) mg/dL Creatinine (0.66-1.25) mg/dL Glucose (74-99) mg/dL POC Glucose (mg/dL) 156 H 147 H (75-99) mg/dL Calcium (8.4-10.2) mg/dL Phosphorus (2.5-4.5) mg/dL AST (17-59) U/L ALT (4-49) U/L Total Protein (6.3-8.2) g/dL Albumin (3.5-5.0) g/dL Crossmatch 12/10/20 12/10/20 12/10/20 Range/Units 04:24 05:44 07:53 WBC (3.8-10.6) k/uL RBC (4.30-5.90) m/uL Hgb (13.0-17.5) gm/dL Hct (39.0-53.0) % RDW (11.5-15.5) % Plt Count (150-450) k/uL Neutrophils # (Manual) (1.3-7.7) k/uL Metamyelocytes # (Man) (0) k/uL Myelocytes # (Manual) (0) k/uL Nucleated RBCs (0-0) /100 WBC ABG pH 7.33 L (7.35-7.45) ABG pCO2 53 H (35-45) mmHg ABG pO2 57 L* (83-108) mmHg ABG HCO3 28 H (21-25) mmol/L ABG Total CO2 29 H (19-24) mmol/L ABG O2 Saturation 89.4 L (94-97) % Chloride 111 H (98-107) mmol/L BUN 86 H (9-20) mg/dL Creatinine 2.91 H (0.66-1.25) mg/dL Glucose 128 H (74-99) mg/dL POC Glucose (mg/dL) 143 H (75-99) mg/dL Calcium 6.8 L (8.4-10.2) mg/dL Phosphorus 4.8 H (2.5-4.5) mg/dL AST 794 H (17-59) U/L ALT 3274 H (4-49) U/L Total Protein 3.1 L (6.3-8.2) g/dL Albumin 1.7 L (3.5-5.0) g/dL Crossmatch 12/10/20 12/10/20 12/10/20 Range/Units 08:39 11:52 12:49 WBC 27.1 H (3.8-10.6) k/uL RBC 2.81 L (4.30-5.90) m/uL Hgb 8.7 L D (13.0-17.5) gm/dL Hct 24.7 L (39.0-53.0) % RDW 16.8 H (11.5-15.5) % Plt Count 32 L (150-450) k/uL Neutrophils # (Manual) (1.3-7.7) k/uL Metamyelocytes # (Man) (0) k/uL Myelocytes # (Manual) (0) k/uL Nucleated RBCs (0-0) /100 WBC ABG pH (7.35-7.45) ABG pCO2 (35-45) mmHg ABG pO2 (83-108) mmHg ABG HCO3 (21-25) mmol/L ABG Total CO2 (19-24) mmol/L ABG O2 Saturation (94-97) % Chloride (98-107) mmol/L BUN (9-20) mg/dL Creatinine (0.66-1.25) mg/dL Glucose (74-99) mg/dL POC Glucose (mg/dL) 129 H 134 H (75-99) mg/dL Calcium (8.4-10.2) mg/dL Phosphorus (2.5-4.5) mg/dL AST (17-59) U/L ALT (4-49) U/L Total Protein (6.3-8.2) g/dL Albumin (3.5-5.0) g/dL Crossmatch Microbiology - Last 24 Hours (Table) 12/07/20 10:06 Blood Culture - Preliminary Blood No Growth after 72 hours 12/09/20 06:20 Catheter Tip Culture - Preliminary Picc Line
[2020-12-10] MEDS: AMIODARONE 450 MG in DEXTROSE 5% IN WATER 250 ML IV SCH ×2 (16:10)
[2020-12-10] MEDS: CISATRACURIUM 200 MG in SODIUM CHLORIDE 0.9% 180 ML IV SCH (16:11)
[2020-12-10 16:41] LABS: Glucose,Whole Blood 160 mg/dL (75-99)
[2020-12-10] MEDS: fentaNYL (PF). 2,500 MCG in SODIUM CHLORIDE 0.9% 200 ML IV SCH (20:12)
[2020-12-10 20:16] LABS: Glucose,Whole Blood 156 mg/dL (75-99)
[2020-12-10 23:35] LABS: Glucose,Whole Blood 163 mg/dL (75-99)
[2020-12-11] MEDS: AMIODARONE 450 MG in DEXTROSE 5% IN WATER 250 ML IV SCH ×4 (01:13→16:39)
[2020-12-11] MEDS: CISATRACURIUM 200 MG in SODIUM CHLORIDE 0.9% 180 ML IV SCH ×2 (02:06→20:58)
[2020-12-11 03:16] LABS: Glucose,Whole Blood 159 mg/dL (75-99)
[2020-12-11] MEDS: INSULIN ASPART (NovoLOG) 100 UNIT/ML VIAL SQ SCH ×6 (03:17→23:47)
[2020-12-11] MEDS: ARTIFICIAL TEARS-HYPROMELLOSE DROPS 15 ML BTL BOTH EYES SCH ×6 (03:17→23:46)
[2020-12-11] MEDS: NOREPINEPHRINE 32 MG in SODIUM CHLORIDE 0.9% 218 ML IV SCH ×4 (03:19→23:46)
[2020-12-11 04:22] LABS: Albumin 1.9 g/dL (3.5-5.0); C Reactive Protein 5.1 mg/dL (<1.0); Calcium 6.9 mg/dL (8.4-10.2); Potassium 4.4 mmol/L (3.5-5.1); Total Bilirubin 1.5 mg/dL (0.2-1.3); Total Protein 3.7 g/dL (6.3-8.2)
[2020-12-11 04:38] LABS: ABG Base Excess 0.4 mmol/L; ABG HCO3 27 mmol/L (21-25); ABG Oxygen Saturation 89.5 % (94-97); ABG PCO2 54 mmHg (35-45); ABG TCO2 29 mmol/L (19-24); Allen Test Performed? Yes
[2020-12-11 04:44] LABS: ABG PO2 58 mmHg (83-108)
[2020-12-11] MEDS: fentaNYL (PF). 2,500 MCG in SODIUM CHLORIDE 0.9% 200 ML IV SCH (05:07)
[2020-12-11 05:28] LABS: Anisocytosis Slight; HCT 25.3 % (39.0-53.0); HGB 8.6 gm/dL (13.0-17.5); MCH 30.2 pg (25.0-35.0); MCHC 33.8 g/dL (31.0-37.0); MCV 89.3 fL (80.0-100.0); Mean Platelet Volume 9.6; Poikilocytosis Slight; RBC 2.84 m/uL (4.30-5.90); RDW 17.5 % (11.5-15.5)
[2020-12-11 05:32] LABS: Platelet Count 27 k/uL (150-450)
--- NOTE | 2020-12-11 06:51 | XR ---
EXAMINATION TYPE: XR chest 1V portable DATE OF EXAM: 12/11/2020 CLINICAL HISTORY: Difficulty breathing progress study. TECHNIQUE: Single AP portable semiupright view of the chest is obtained. COMPARISON: Chest x-ray from one day earlier and older studies FINDINGS: Stable somewhat low-lying endotracheal tube. Stable orogastric tube. Stable right subclavi an central venous catheter. Low lung volumes with bilateral fairly confluent opacities redemonstrated. Cardiac silhouette size is stable and within normal limits with silhouetting left heart border redemonstrated. Osseous structur es remaining intact. IMPRESSION: Low lung volumes with bilateral fairly confluent opacities consistent with known covid-19 infection, no significant change from one day earlier.
[2020-12-11] MEDS: INSULIN DETEMIR (LEVEMIR) 100 UNIT/ML SYR SQ SCH ×2 (06:56→21:40)
[2020-12-11 07:02] LABS: Band Neutrophils % 12 %; Metamyelocytes % 4 %; Myelocytes % 1 %; Neutrophils % (M) 67 %; Nucleated Red Blood Cells 7 /100 WBC (0-0); Total Cells Counted 200
[2020-12-11 07:03] LABS: Lymphocytes # (M) 3.74 k/uL (1.0-4.8); Metamyelocytes # (M) 0.94 k/uL (0); Monocytes # (M) 0.23 k/uL (0-1.0); Myelocytes # (M) 0.23 k/uL (0); WBC 23.4 k/uL (3.8-10.6)
[2020-12-11 07:17] LABS: Polychromasia Present
[2020-12-11 07:18] LABS: RBC Fragments Present
--- NOTE | 2020-12-11 07:46 | P.PN ---
Subjective Progress Note Date: 12/10/20 HISTORY OF PRESENT ILLNESS This is a pleasant 60-year-old gentleman patient of Dr. Ridge Christina. He doesn't see a physician often and does not note any medical diseases, except for obesity. He comes seen secondary to fever and chills, cough, starting December 06 first, along with muscle aches, lack of appetite and diarrhea. he was tested for call bid November 08, which required at week of reporting, subsequently was sent to emergency room secondary to worsening symptoms, including dyspnea on exertion, shortness of breath and worsening cough without hemoptysis. Fever, sh ortness of breath lingers, no treatment given to him prior to this admission. The is vaccinated, but the patient is not. He does not believe in vaccines at that time. He comes in the emergency room, with hypoxemia, with very minimal conversational dyspnea, chest x-ray, shows pulmonary infiltrate consistent with Covid pneumonia, oxygen currently is at 6 L nasal cannula, d-dimer was 0.6, LFTs are minimally elevated, 64 AST, lactic acid 2.0 sodium 132, creatinine of 0.9, glucose of 122, LDH of 888, CRP of 5.7. Urine protein noted, without hematuria or proteinuria. Covid was again retested 11/14, PCR is positive. Consult to Dr. Eduardo and pulmonary,, 11/16: Patient is currently on oxygen at 6 L nasal cannula increased to 7 L with humidified oxygen. Patient seen and followed by pulmonary medicine and has been started on Bariticinib, Decadron 6 mg daily, and prophylactic dose of Lovenox. He is reaching 1750 on incentive spirometry. Patient did have episode of diarrhea yesterday, none today and complains of decreased appetite. Patient complains of nasal congestion and Flonase added. 11/17: Patient had difficulty with oxygenation during the night and this morning transitioned to Airfo and partial nonrebreather. Pulse ox is currently running 90-92%, patient is prone. He has been afebrile, heart rate 88, blood pressure 104/63. Repeat d-dimer is elevated at 0.93. Blood sugar 167. C-reactive protein increased to 5.3. AST is 83 and ALT 51. Blood culture remains with no growth after 48 hours. Repeat chest x-ray reveals mild cardiomegaly with bilateral multifocal opacities consistent with Covid 19 infection. No significant change from most recent x-ray. Albuterol inhaler and Symbicort inhaler added. 11/18: Patient is currently on AirVo and nonrebreather with pulse ox of 93%. He's been afebrile, heart rate 85, blood pressure 103/68. Blood culture no growth at 72 hours 2 specimens. Plan to continue proning. Repeat laboratory studies ordered for tomorrow including inflammatory markers. The patient is having difficulty sleeping and melatonin added. Lovenox increased to twice daily dosing. 11/19: Patient remains in isolation. He is on AirVO plus nonrebreather with pulse ox of 93%. He has been afebrile, heart rate 85, blood pressure 122/69. Patient is found sitting in recliner and encouraged to prone when he is able to. Repeat blood work reveals WBC 12, hemoglobin 14.8, platelet count 282. D-dimer is 1.38. Other blood work is pending. Patient is continued on Decadron, vitamin supplements, Lovenox. He is on day #07/20 of Baricitinib. 11/20: Patient has been afebrile, heart rate 71, blood pressure 107/71, pulse ox 88-93% on AirVo plus nonrebreather. Patient seems to be depressed and frustrated with coarse. Noted that he started on Xanax yesterday by pulmonary. We will add and Remeron 7.5 mg at bedtime. Hemoglobin A1c came back at 6.4. Patient is encouraged to use incentive spirometry, increase activity, prone. Discussed CODE STATUS with patient and he wishes to be a full code. 11/21: Patient will pulse ox of 83% as he was on Airvo only and once nonrebreather was placed she went up to 89%. Patient is not eating much. He has been encouraged to take protein supplement, increase activity and prone but patient does not seem motivated. He was started on Remeron last night which will hopefully help with his mood and appetite. He has continued on Lovenox, dexamethasone, Baricitinib #09/19 repeat blood work reveals WBC 14.3. D-dimer increasing to 3.2. Electrolytes normal, creatinine 0.76. LDH is high at 1476, C-reactive protein stable 6.6. 11/22: Patient continues to be on airflow and nonrebreather and with minimal movement, pulse ox drops down to 82%, otherwise patient is maintaining 92-94%. One dose of IV Lasix ordered for today. Temperature max yesterday afternoon was 101.2. Heart rate in the 70s and 80s. Blood pressure 110/59. Urinalysis was negative for infection. Repeat blood work will be ordered for tomorrow. 11/23: Patient Was moved into ICU overnight. He has been on BiPAP through the night and pulse oxing 95% recently on his side, currently sitting on the edge of the bed pulse oxing 90%, with talking he drops to 83%. He is scheduled for PICC line insertion and plan to start TPN today. Patient has been afebrile, heart rate in the 60s, respiratory rate 28. WBC 12.0, hemoglobin 15, platelet count 351. Lymphocytes 11.1. D-dimer 2.46. Sodium 136, otherwise electrolytes are normal. BUN 30 creatinine 0.7. Blood sugar 128. Magnesium 2.5. Phosphorus 5.5. LDH 1691. C-reactive protein 13.4. Total protein 5.6. Blood cultures remain with no growth. Repeat chest x-ray this morning reveals stable diffuse bilateral infiltrates. Patient is on Baricitinib 10/20. Pulmonary has increased frequency of dexamethasone to twice daily and changed to IV6 mg IV twice daily. 11/24: Patient remain in the ICU, still on BiPAP with pulse ox is improving at this point. Continue dexamethasone and Baricitinib 11/20, patient had full meal this morning his TPN will be suspended after today. Patient will remain in the ICU at least for the next 48 hours. 11/25: Remain in the ICU still on BiPAP but his pulse ox is slightly bit better he still on dexamethasone and Baricitinib 12/20 seems to do slightly but better was agreed by intensive care studies TPN, patient oral intake is slightly but better and had slight improvement compared to yesterday. Surprisingly his marker went up slightly bit specially his LDH up to 2086 with C-reactive protein 3.6 kidney function remained good white blood cell climb up to 15.1 specially been on steroid. Chest x-ray still shows diffuse bilateral interstitial infiltrate and patchy opacification persistent but there is a slight improvement in the variation in the left lower lobe compared to few days earlier. 11/26: Patient remain on BiPAP with 100% oxygen to keep his pulse ox around 92 percentile, his d-dimer continue to be quite bit elevated today is having Doppler of the lower extremity but notes CT at this point. Remain on Symbicort, and albuterol HFA, his white blood cell is down 17,000, blood sugars better control. Chest x-ray still showed patchy infiltrate throughout both lung felix persistent didn't change. Patient had mild anxiety with no pain currently. 11/27: Patient remains in the intensive care unit. He is placed on airflow for eating and pulse ox drops to the 7083 percent range. Pulse ox 90-93% on100% BiPAP. He is afebrile, heart rate in the 70s, respiratory rate 27 and 32, blood pressure 102/71. WBC 21.5, lymphocytes 0.6. D-dimer 7.29. Blood sugars running between 111 and 171. Ferritin level [id number]. ALT 54, alkaline phosphatase 152. CK 27, C-reactive protein 2.9. Repeat chest x-ray reveals borderline cardiomegaly with prominent pulmonary vascular markings. Diffuse increased lung markings are present. Correlate for heart failure. Atypical pneumonia should be considered. Lower extremity ultrasound negative for DVT bilaterally. 11/28: Patient remains in the intensive care unit and found sitting in a chair at the bedside. He is continued on BiPAP and switched over to Arava and nonrebreather for meals. Repeat chest x-ray essentially unchanged. Repeat blood work reveals WBC 20.4, hemoglobin 14.8, platelet count 130. Sodium 134, potassium 4.8, creatinine 0.62. LDH 2934. C-reactive protein 3.3, d-dimer 10.2. CT angiogram of the chest has been ordered by pulmonary medicine which revealed slightly suboptimal study without evidence of acute pulmonary embolism. Mild cardiomegaly with bilateral cities and multifocal organizing consolidations consistent with Covid19 infection. Lovenox has been changed to 40 mg daily and dexamethasone changed to Solu-Medrol 60 mg every 6 hours. Taco michelle has completed course of Baricitinib. 11/29: Patient remains in the intensive care unit, patient is utilizing BiPAP and also Airvo with nonrebreather mask added at times as he tolerates. His ox ygenation seems to be improving at 89-93%. Respiratory rate 24, heart rate 88, blood pressure 107/58. Patient does verbalize that he is feeling somewhat better today. WBC 16.4, hemoglobin 15.1, platelet count 120. D-dimer 13.49, C- reactive protein 2, LDH 2086, CK 47. Repeat chest x-ray reveals correlate for pneumonia, edema or pulmonary hemorrhage, there is cardiomegaly. Patient is currently continued on Lovenox, Solu-Medrol, bronchodilators and vitamin supplements. 11/30: Patient remains in intensive care unit, he sitting in a chair at the bedside. He is feeling a little bit better and breath sounds are sounding a little better from yesterday. He is currently on AirVO. Pulse ox is running 84-87%, he has been afebrile, heart rate in the 80s and 90s, respiratory rate in the 20s, blood pressure 110/67. Repeat blood work reveals WBC 19.4, platelet count 126. D-dimer 10.2, LDH 2157, CK 78, C-reactive protein 1.5. Sodium 135, BUN 44 creatinine 0.73. Patient is continued on Lovenox, IV Solu-Medrol, bronchodilators and supplements. 12/01: Patient remains in ICU, he is currently sitting in chair at the bedside. Patient continues to state that he feels a bit better breath sounds are sounding better compared to yesterday. He is currently on airflow. His pulse ox is running 87-89%, he is still short of breath with conversation. Patient has been afebrile, heart rate 72, respirations 28, blood pressure 109/61. WBC 16.0, hemoglobin 15.1, platelets 112, potassium 4.6, BUN 39, creatinine 0.84. Patient is continued on Lovenox, IV Solu-Medrol, bronchodilators and supplements. 12/02: Patient remains in ICU, he is currently sitting up in a chair at the bedside. Patient continues to have shortness of breath with activity and conversation. His chest x-ray unchanged to prior studies. D-dimer 5.96. Incentive spirometer is at the bedside however encouragement to utilize if needed. Patient has been afebrile, heart rate 85, respirations 28, blood pressure 138/86 pulse ox is 85-89% on Airvo. 12/03, patient remains ICU, he seems to be gradually improving, intending around for the better, has improvement on shortness of breath with conversation, nothing supple she did today for dyspnea, however with movement, he does have shortness of breath while in bed turning around. Patient has an airflow at 65 L, pulse ox 90%. No new fevers, no melena and hematochezia, nutrition is appropriate, and is getting better. 12/04: Patient remains in the intensive care unit. He is onAirVo with nonrebreather mask on standby. He did have a rise in his heart rate up to the 140s, atrial fibrillation with RVR and pulmonary has started the patient on amiodarone drip. He has been afebrile, respiratory rate 28, pulse ox 94-97%. WBC 18.7, hemoglobin 15.5, platelet count 131. Sodium 134, potassium 4.5, chloride 99, CO2 31, BUN 32 and creatinine 0.72. Blood sugars are running between 144 and 193. AST 71, ALT 283, alkaline phosphatase 82. LDH 1946, C- reactive protein 0.6. D-dimer 4.21. Repeat chest x-ray reveals worsening bilateral diffuse interstitial and patchy airspace disease. 12/05: Patient has been taken out of isolation by infection control. He is now on AirVo, FiO2 at 75%. He does have nonrebreather mask on standby but oxygen needs seem to be improving slightly. He seems to be slightly less short of breath. Nephrology has switched him to oral prednisone and off Solu-Medrol. Patient is on eliquis for atrial fibrillation. Heart rate is currently cont rolled and he has been afebrile. Amiodarone has been discontinued, echocardiogram ordered. Pulse ox is 88%, afebrile, blood pressure 111/72 and heart rate in the 80s. manager wind sinus rhythm. Repeat blood work reveals WBC 20.4, hemoglobin 15.2, platelet count 109. Sodium 135, potassium 4.9, chloride 100, CO2 33, BUN 46 and creatinine 0.84. Blood sugars are running between 133 and 231. LDH 1616. 12/06: Patient had difficult is sleeping last night despite use of Remeron and having back pain issues. Tramadol at bedtime ordered. Patient remains in the intensive care unit, he has been moved out of isolation. He continues to be on airflow with pulse ox in the 80s. Blood pressure is soft this morning 85/53 and 92/67 for which fluid bolus of 500 ML's ordered. He's been afebrile, heart rate in the 80s. manager wind sinus rhythm. Metoprolol was increased to 25 mg twice daily. Echocardiogram reveals EF of 50-55%. 12/07: She remains in intensive care unit but is doing poorly this morning. He had a large bright red and mostly dark stool last evening and a repeat this morning. Eliquis has been placed on hold, he is very quite vasopressors and started on levo. He is on Protonix 40 mg IV push twice daily. He is scheduled to receive 2 units of packed RBCs for drop in his hemoglobin to 9.4. He is currently receiving 2 L IV fluid bolus. Stool for occult blood was positive. Consult was added for Dr. Ojeda. He is currently on BiPAP at 100% with pulse ox of 100%, heart rate 104, respiratory rate 27, blood pressure 88/51. Other blood work today reveals WBC of 22.6, platelet count of 94. Creatinine 0.82 with BUN of 64. Blood sugars 173. Lactic acid 2.9. INR is 1.5, PTT 25.5, AST 69, ALT 200, LDH 1474. Alkaline phosphatase 57 urinalysis negative for infection. Patient had a previous colonoscopy with Dr. Reyes that was normal. 12/08: Yesterday, patient required intubation was placed on mechanical ventilation after becoming more hypotensive started on vasopressin and norepinephrine and status post 7 L of IV fluid. He is status post transfusion of a total of 4 units of packed RBCs and hemoglobin is currently at 7.8. He has had no further episodes of GI bleeding. Consult with nephrology has been added, potassium came back at 6.5 CAT scan of the abdomen and chest revealed pulmonary edema which is slightly improved. Evidence of new posterior pneumomediastinum, air around the lower thoracic esophagus. Decreased excretion of delayed images small amount of abdominal ascites. No bowel obstruction. Chest x-ray reveals low lung volume with bilateral multifocal and confluent opacities consistent with COVID-19. Patient was seen yesterday by general surgery and patient was tentatively scheduled for EGD and colonoscopy on 12/10: She remains intubated and on mechanical ventilation with tidal volume 375, FiO2 60, PEEP of 14. Patient went into A. fib with RVR uncontrolled status post bolus of amiodarone and fluid bolus, shock 3 without conversion and is currently at 140 bpm. He remains on norepinephrine and vasopressin but on lower doses. He is also on Nimbex and propofol. Patient is not on anticoagulation at this point due to GI bleed. Patient has been afebrile, respiratory rate 38, but pressure 86/51, pulse ox 97%. Repeat blood work reveals WBC 21.2, hemoglobin 8.5, platelet count 45. BUN 74 creatinine 2.42. Blood sugars running in the 200s and Levemir 10 units twice daily added along with scale. Magnesium 1.7. AST 2912, ALT 5134. Chest x-ray reveals low lung volumes with bilateral mul tifocal and confluent opacities consistent with Covid 19. 12/10: She remains intubated and on mechanical ventilation with tidal volume 375, FiO2 60, PEEP of 12. Heart rate is anywhere from 1:15 to 1:30 in a sinus rhythm sinus tachycardia. Patient was off vasopressor and Levophed for blood pressure dropped this morning is back on levo fed. He has had good urine output. He is also on Nimbex, propofol and fentanyl drips. He has had no further bloody tarry stools., WBC 27.1, platelet count 232. BUN 86 and creatinine 2.91. Patient is on tube feedings. EGD and colonoscopy are on hold until patient is medically stable. Patient's is at bedside and all questions have been answered. REVIEW OF SYSTEMS Unable to obtain as patient is intubated and on mechanical ventilation PHYSICAL EXAMINATION Gen: This is a 60-year-old obese male in the ICU intubated and on mechanical ventilation. HEENT: Head is atraumatic, normocephalic. Pupils equal, round. Sclerae is anicteric, conjunctiva edema. Oral ET and gastric tubes in place. NECK: Supple. No JVD. No lymphadenopathy. No thyromegaly. LUNGS: Diminished with crackles in the bilateral bases. HEART: Regular rate and rhythm. No murmur. ABDOMEN: obese. Soft. Bowel sounds are present. No masses. No tenderness. Mackenzie catheter draining clear frederick urine. EXTREMITIES: His bilateral pedal edema. No calf tenderness. NEUROLOGICAL: Patient is sedated. ASSESSMENT AND PLAN 1. Acute respiratory failure: Secondary to COVID-19 requiring intubation and mechanical ventilation, with possible secondary bacterial pneumonia, pulmonary medicine, continue Ventolin inhaler, dexamethasone 4 mg IV daily, Zosyn, vancomycin, vitamin supplements. Patient is off Lovenox/eliquis due to GI bleed. 2. Sepsis (POA) secondary to COVID-19 pneumonia, with acute hypoxemic respiratory failure, diagnosis was of 11/08/2020. 3. Moderate protein calorie malnutrition secondary to poor oral intake. Oral gastric feedings to 4. New-onset atrial fibrillation with RVR, paroxysmal atrial fibrillation. Amiodarone drip status post boluses. Eliquis placed on hold. Echocardiogram as above. 5. Thrombocytopenia secondary to sepsis. 6. Acute GI bleed. Eliquis placed on hold, 4 units packed RBCs, IV fluid boluses, consult with Dr. Ojeda appreciated. Patient was scheduled for EGD colonoscopy on Sunday 12/10. 7. Acute hypovolemic shock or septic shock requiring vasopressors, massive IV fluid resuscitation. 8. Acute kidney injury with ATN secondary to septic shock. Consult with nephrology appreciated 9. Metabolic acidosis secondary to acute kidney injury. Bicarb drip discontinued by nephrology. 10. Severe hyperkalemia secondary to acute kidney injury. Followed by nephrology. 11. Shock liver secondary to hypotension. Monitor liver function test. 12. DVT prophylaxis. 13. GI prophylaxis. Protonic. 14. BPH. Mackenzie catheter 15. Proteinuria, unknown cause. 16. Dymetabolic syndrome, monitor for hyperglycemia, A1c 6.4. NovoLog scale every 4 hours, added Levemir 10 units twice daily. 17. Back pain. CODE Status: Full code Prognosis: guarded. Impression and plan of care have been directed as dictated by the signing physician. Sanam Valenitne nurse practitioner acting as scribe for signing physician. Objective - Vital Signs Vital signs: Vital Signs Temp 98.4 F 12/10/20 12:00 Pulse 138 H 12/10/20 12:15 Resp 38 H 12/10/20 12:15 BP 118/67 12/10/20 05:00 Pulse Ox 90 L 12/10/20 12:15 Intake & Output 12/09/20 12/10/20 12/10/20 18:59 06:59 18:59 Intake Total 2254.789 1122.059 412 Output Total 480 525 275 Balance 1774.789 597.059 137 Weight 136.3 kg 136.3 kg Intake: IV 1833 936 412 Dextrose 5% in Water 1, 150 000 ml @ 150 mls/hr IV . Q7H40M HIRAM with Sodium Bicarb (1 Meq/ml) 150 ml Rx#:[id number] Dextrose 5% in Water 100 300 ml @ 618 mls/hr IV .Q10M ONE with Amiodarone 150 mg Rx#:[id number] Piperacillin-Tazobactam 3 100 100 .375 gm In Sodium Chloride 0.9% 100 ml @ 25 mls/hr IVPB Q8HR [facility] Rx# :[id number] Pressure bags 33 36 12 Sodium Chloride 0.9% 1, 750 900 300 000 ml @ 75 mls/hr IV . [id number] [facility] Rx#:[id number] Vancomycin 2,000 mg In 500 Sodium Chloride 0.9% 500 ml 500 ml @ 167 mls/hr IVPB Q12H [facility] Rx#: [id number] Intake, IV Titration 421.789 186.059 0 Amount Amiodarone 360 mg In 194.442 Dextrose 5% in Water 200 ml @ 1 MG/MIN 33.333 mls/ hr IV .Q6H ONE Rx#: [id number] Norepinephrine 32 mg In 127.347 4.26 0 Sodium Chloride 0.9% 218 ml @ 0.75 MCG/KG/MIN 38. 039 mls/hr IV .Q6H35M [facility] Rx#:[id number] propofoL 1,000 mg In 100 181.799 Empty Bag 1 bag @ Titrate IV .Q0M [facility] Rx#: [id number] Blood Product 0 Rc As-1 Unit 0 [id number] Output: Gastric Drainage 50 Urine 430 525 275 Other: Voiding Method Indwelling Catheter Indwelling Catheter Indwelling Catheter # Bowel Movements 1 ABP, PAP, CO, CI - Last Documented Arterial Blood Pressure 112/66 - Labs CBC & Chem 7: 12/11/20 03:50 12/11/20 03:50 Labs: Abnormal Lab Results - Last 24 Hours (Table) 12/07/20 12/09/20 12/09/20 Range/Units 10:06 16:23 20:04 WBC (3.8-10.6) k/uL RBC (4.30-5.90) m/uL Hgb (13.0-17.5) gm/dL Hct (39.0-53.0) % RDW (11.5-15.5) % Plt Count (150-450) k/uL Neutrophils # (Manual) (1.3-7.7) k/uL Metamyelocytes # (Man) (0) k/uL Myelocytes # (Manual) (0) k/uL Nucleated RBCs (0-0) /100 WBC ABG pH (7.35-7.45) ABG pCO2 (35-45) mmHg ABG pO2 (83-108) mmHg ABG HCO3 (21-25) mmol/L ABG Total CO2 (19-24) mmol/L ABG O2 Saturation (94-97) % Chloride (98-107) mmol/L BUN (9-20) mg/dL Creatinine (0.66-1.25) mg/dL Glucose (74-99) mg/dL POC Glucose (mg/dL) 189 H 171 H (75-99) mg/dL Calcium (8.4-10.2) mg/dL Phosphorus (2.5-4.5) mg/dL AST (17-59) U/L ALT (4-49) U/L Total Protein (6.3-8.2) g/dL Albumin (3.5-5.0) g/dL Crossmatch See Detail 12/09/20 12/10/20 12/10/20 Range/Units 23:31 04:09 04:24 WBC 19.9 H (3.8-10.6) k/uL RBC 2.25 L (4.30-5.90) m/uL Hgb 7.1 L (13.0-17.5) gm/dL Hct 20.1 L (39.0-53.0) % RDW 17.1 H (11.5-15.5) % Plt Count 28 L (150-450) k/uL Neutrophils # (Manual) 17.90 H (1.3-7.7) k/uL Metamyelocytes # (Man) 0.40 H (0) k/uL Myelocytes # (Manual) 0.20 H (0) k/uL Nucleated RBCs 7 H (0-0) /100 WBC ABG pH (7.35-7.45) ABG pCO2 (35-45) mmHg ABG pO2 (83-108) mmHg ABG HCO3 (21-25) mmol/L ABG Total CO2 (19-24) mmol/L ABG O2 Saturation (94-97) % Chloride (98-107) mmol/L BUN (9-20) mg/dL Creatinine (0.66-1.25) mg/dL Glucose (74-99) mg/dL POC Glucose (mg/dL) 156 H 147 H (75-99) mg/dL Calcium (8.4-10.2) mg/dL Phosphorus (2.5-4.5) mg/dL AST (17-59) U/L ALT (4-49) U/L Total Protein (6.3-8.2) g/dL Albumin (3.5-5.0) g/dL Crossmatch 12/10/20 12/10/20 12/10/20 Range/Units 04:24 05:44 07:53 WBC (3.8-10.6) k/uL RBC (4.30-5.90) m/uL Hgb (13.0-17.5) gm/dL Hct (39.0-53.0) % RDW (11.5-15.5) % Plt Count (150-450) k/uL Neutrophils # (Manual) (1.3-7.7) k/uL Metamyelocytes # (Man) (0) k/uL Myelocytes # (Manual) (0) k/uL Nucleated RBCs (0-0) /100 WBC ABG pH 7.33 L (7.35-7.45) ABG pCO2 53 H (35-45) mmHg ABG pO2 57 L* (83-108) mmHg ABG HCO3 28 H (21-25) mmol/L ABG Total CO2 29 H (19-24) mmol/L ABG O2 Saturation 89.4 L (94-97) % Chloride 111 H (98-107) mmol/L BUN 86 H (9-20) mg/dL Creatinine 2.91 H (0.66-1.25) mg/dL Glucose 128 H (74-99) mg/dL POC Glucose (mg/dL) 143 H (75-99) mg/dL Calcium 6.8 L (8.4-10.2) mg/dL Phosphorus 4.8 H (2.5-4.5) mg/dL AST 794 H (17-59) U/L ALT 3274 H (4-49) U/L Total Protein 3.1 L (6.3-8.2) g/dL Albumin 1.7 L (3.5-5.0) g/dL Crossmatch 12/10/20 12/10/20 Range/Units 08:39 11:52 WBC (3.8-10.6) k/uL RBC (4.30-5.90) m/uL Hgb (13.0-17.5) gm/dL Hct (39.0-53.0) % RDW (11.5-15.5) % Plt Count (150-450) k/uL Neutrophils # (Manual) (1.3-7.7) k/uL Metamyelocytes # (Man) (0) k/uL Myelocytes # (Manual) (0) k/uL Nucleated RBCs (0-0) /100 WBC ABG pH (7.35-7.45) ABG pCO2 (35-45) mmHg ABG pO2 (83-108) mmHg ABG HCO3 (21-25) mmol/L ABG Total CO2 (19-24) mmol/L ABG O2 Saturation (94-97) % Chloride (98-107) mmol/L BUN (9-20) mg/dL Creatinine (0.66-1.25) mg/dL Glucose (74-99) mg/dL POC Glucose (mg/dL) 129 H 134 H (75-99) mg/dL Calcium (8.4-10.2) mg/dL Phosphorus (2.5-4.5) mg/dL AST (17-59) U/L ALT (4-49) U/L Total Protein (6.3-8.2) g/dL Albumin (3.5-5.0) g/dL Crossmatch Microbiology - Last 24 Hours (Table) 12/07/20 10:06 Blood Culture - Preliminary Blood No Growth after 72 hours 12/09/20 06:20 Catheter Tip Culture - Preliminary Picc Line 12/08/20 08:00 Urine Culture - Preliminary Urine,Voided
[2020-12-11 08:29] LABS: Glucose,Whole Blood 113 mg/dL (75-99)
[2020-12-11] MEDS ORDERED: VANCOMYCIN 2,000 MG in SODIUM CHLORIDE 0.9% 500 ML 500 ML IVPB ONE (09:00)
[2020-12-11] MEDS ORDERED: fentaNYL (PF). 1,000 MCG in SODIUM CHLORIDE 0.9% 80 ML IV SCH (09:00)
[2020-12-11] MEDS: PANTOPRAZOLE 40 MG/10 ML VIAL IVP SCH ×2 (09:04→20:53)
[2020-12-11] MEDS: DEXAMETHASONE SOD PHOSPHATE 4 MG/ML 1 ML VIAL IV SCH (09:04)
[2020-12-11] MEDS: ZINC SULFATE 220 MG CAP PO SCH (09:04)
[2020-12-11] MEDS: PIPERACILLIN-TAZOBACTAM 3.375 GM in SODIUM CHLORIDE 0.9% 100 ML IVPB SCH ×3 (09:04→23:47)
[2020-12-11] MEDS: ASCORBIC ACID 500 MG TAB PO SCH ×2 (09:04→20:53)
[2020-12-11] MEDS: CHLORHEXIDINE GLUCONATE 15 ML CUP MUCOUS MEM SCH ×2 (09:04→20:53)
[2020-12-11] MEDS: CHOLECALCIFEROL 25 MCG (1000 IU) TABLET PO SCH (09:04)
[2020-12-11] MEDS: fentaNYL (PF). 1,000 MCG in SODIUM CHLORIDE 0.9% 80 ML IV SCH (10:04)
[2020-12-11] MEDS ORDERED: FUROSEMIDE 10 MG/ML 4 ML VIAL IV STA (10:34)
[2020-12-11] MEDS: SODIUM CHLORIDE 0.9% 1,000 ML IV SCH ×2 (11:00→12:18)
--- NOTE | 2020-12-11 11:32 | PN ---
PROGRESS NOTE Patient is seen for followup for acute kidney injury. He currently remains on the vent. Patient's serum creatinine has worsened, with creatinine up to 2.9. He was noted to be in atrial fibrillation with RVR. Patient's blood pressure had dropped as well. He is currently maintained on Levophed. Urine output is at about 50 to 30 mL/hour. The patient's hemoglobin was low at 7.1 g/dL. He had a large bloody bowel movement day before yesterday. On examination today, patient remains on the vent. Blood pressure is on the lower side, systolic 112, diastolic 66 mmHg, heart rate 130. Patient is afebrile. Examination of lower extremities shows edema 2+ bilaterally. Significant scrotal edema noted. Abdomen is soft, nontender. FIELD CANE SCALER exam cannot be performed. Labs show sodium 140, potassium 4.2, chloride 111. CO2 is 28, BUN 86, creatinine 2.9, hemoglobin 7.1 g/dL. ASSESSMENT: 1. Acute kidney injury, acute tubular necrosis, associated with hemodynamics, instability, hypotension and underlying COVID infection, currently nonoliguric. The patient is appears to be volume-overloaded. I will give him a dose of IV Lasix and we will continue to monitor the renal function. He will likely need renal replacement therapy if his renal function continues to worsen with worsening volume status. No nephrotoxic agents on board at this time. 2. Acute hypoxic respiratory failure. 3. Metabolic acidosis associated with acute kidney injury. 4. COVID pneumonia and acute hypoxic respiratory failure, currently on the vent, with possible superimposed bacterial infection. 5. Shock liver. 6. Atrial fibrillation with rapid ventricular response, maintained on IV amiodarone. PLAN: IV Lasix x1. Repeat labs in a.m. Decrease IV fluids to 50 mL/hour. MMODL / IJN: [id number] /
[2020-12-11 12:11] LABS: Glucose,Whole Blood 117 mg/dL (75-99)
--- NOTE | 2020-12-11 12:56 | P.PN ---
Subjective Progress Note Date: 12/11/20 Principal diagnosis: Acute hypoxic respiratory failure secondary to COVID-19 pneumonia. On 12/10/2020 patient seen in follow-up in intensive care unit, he was intubated and placed on mechanical ventilator last Thursday on 12/07/2020. Patient at the time he has developed worsening hypoxic respiratory failure and acute GI blood loss anemia and Hemorrhagic shock requiring transfusion with 4 units of packed red blood cells, K Sentra infusion for reversal of Eliquis, and she was fluid resuscitated with a total of 7 L of fluid. At the same time she was intubated and placed on mechanical ventilator on which he remains today, he is currently on assist control mode of ventilation with a rate of 30, tidal M is 375, FiO2 of 60% and PEEP of 12. This morning's blood gas shows pO2 of 57, pCO2 of 53 a pH of 7.33, and this was on FiO2 of 60%. Patient has been weaned off the vasopressor support, his Levothroid and vasopressin have been off for over 24 hours, he is currently complaining of a rate of 75 ML per hour, amiodarone is at 0.5 mg per hour, and index is at 1 davon per kilo per minute, Diprivan is a 35 mics per kilo per minute. Patient has not had any further bleeding since yesterday. His chest x-ray shows continued bilateral diffuse airspace disease, with worsening at the left base. Patient is still tachycardic with a rate in the 140s BPM and what appears to be in sinus mechanism. Today's labs have been reviewed, showing improving white count which is down to 19.9, hemoglobin is 7.1, platelet count is 28, sodium is 140, potassium is 4.2, chloride is 111, CO2 is 28, BUN is 86, creatinine 2.91, and the patient's renal profile has slightly worsened since yesterday. His AST is improving and is down to 794 from 2912, ALT is 3274, improving, patient has not had a LDH and CRP done in the last 3 or 4 days. Cortisol level was 35 2 days ago, urinalysis without sign of infection, stool for occult blood was positive, his anticoagulation remains on hold. His PICC line has been removed, and catheter tip culture is pending at this time, all his blood and urine cultures have remained negative thus far. Patient remains on multivitamins, she remains on Decadron currently at 4 mg daily, he is on Protonix 40 mg twice daily, he remains on empiric antibiotics in the form of Zosyn and vancomycin. His urine output has been in the order of 45-50 ML per hour. Patient was reevaluated today on 12/11/2020, remains in the ICU, intubated and mechanically ventilated, sedated and paralyzed. Patient is on assist control rate of 38 tidal volume 375 FiO2 60% and PEEP is 12. ABG showed a pO2 of 58 pCO2 of 54 pH of 7.30. Peak airway pressure is 43 plateau pressure is 35. Drips include amiodarone at 0.5, Nimbex at 1, fentanyl at 25 mcg/kg/m, norepinephrine at 0.04 mcg/kg/m, and IV fluid at 50 mL per hour. Chest x-ray continues to show bilateral infiltrates, not much of a change overall. It is consistent with COVID-19 pneumonia. Labs include WBC count of 23.4 hemoglobin 8.6 platelets are low at 27,000, BUN of 93 creatinine 2.78. Inflammatory markers remain high including elevated LDH of 4 above 4000s CPK 591 and C- reactive protein 5.1 transaminases are high with ALT of 2759 and AST of 234 Medications include albuterol, amiodarone, vitamin C, Peridex, vitamin D3, Nimbex, Decadron 4 mg IV push daily, fentanyl, insulin, norepinephrine, Protonix, Zosyn, zinc. Patient is not on any anticoagulation therapy at this point because of his recent massive bleed requiring 5 units of packed RBCs, hemoglobin today is 8.6 Objective - Vital Signs Vital signs: Vital Signs Temp 97.7 F 12/11/20 12:00 Pulse 108 H 12/11/20 12:00 Resp 38 H 12/11/20 12:00 BP 104/61 12/10/20 14:02 Pulse Ox 93 L 12/11/20 12:00 Intake & Output 12/10/20 12/11/20 12/11/20 18:59 06:59 18:59 Intake Total 5382.571 9384.381 1174.064 Output Total 780 1050 846 Balance 958.441 272.381 328.064 Weight 136.3 kg 134.8 kg 136.9 kg Intake: IV 266 677 8934.5 Amiodarone 450 mg In 83.5 Dextrose 5% in Water 250 ml @ 0.5 MG/MIN 16.667 mls/hr IV .Q15H [facility] Rx#: [id number] Normal Saline Pressure 33 36 18 Bag @ 3mL/hr Piperacillin-Tazobactam 3 150 150 100 .375 gm In Sodium Chloride 0.9% 100 ml @ 25 mls/hr IVPB Q8HR [facility] Rx# :[id number] Sodium Chloride 0.9% 1, 750 600 300 000 ml @ 20 mls/hr IV . Q24H [facility] Rx#:[id number] Vancomycin 2,000 mg In 500 Sodium Chloride 0.9% 500 ml 500 ml @ 167 mls/hr IVPB Q12H [facility] Rx#: [id number] Intake, IV Titration 495.441 536.381 172.564 Amount Amiodarone 450 mg In 250 150.836 Dextrose 5% in Water 250 ml @ 0.5 MG/MIN 16.667 mls/hr IV .Q15H [facility] Rx#: [id number] Cisatracurium 200 mg In 129.191 64.379 Sodium Chloride 0.9% 180 ml @ 1 MCG/KG/MIN 6.492 mls/hr IV .Q24H [facility] Rx#: [id number] Norepinephrine 32 mg In 0 33.784 72.966 Sodium Chloride 0.9% 218 ml @ 0.75 MCG/KG/MIN 38. 039 mls/hr IV .Q6H35M [facility] Rx#:[id number] fentaNYL (PF). 1,000 mcg 16.25 In Sodium Chloride 0.9% 80 ml @ 25 MCG/HR 2.5 mls /hr IV .Q24H [facility] Rx#: [id number] fentaNYL (PF). 2,500 mcg 22.292 In Sodium Chloride 0.9% 200 ml @ 0.25 MCG/HR 0. 025 mls/hr IV .Q24H [facility] Rx#:[id number] propofoL 1,000 mg In 100 265.090 99.598 Empty Bag 1 bag @ Titrate IV .Q0M [facility] Rx#: [id number] Blood Product 310 Rc As-1 Unit 310 [id number] Output: Gastric Drainage 300 Urine 780 1050 546 Other: Voiding Method Indwelling Catheter Indwelling Catheter Indwelling Catheter ABP, PAP, CO, CI - Last Documented Arterial Blood Pressure 106/65 - Exam Gen: This is a 60-year-old obese male, intubated and mechanically ventilated. HEENT: Head is atraumatic, normocephalic. [place], EOMI, nonicteric, no neck masses, no JVD. Tracheal tube is intact. Mucous membranes are unremarkable. NECK: Supple. No JVD. No lymphadenopathy. No thyromegaly. LUNGS: Crackles at the bases persist, no rhonchi no wheezes. HEART: Regular rate and rhythm. No murmur. ABDOMEN: obese. Soft. Bowel sounds are present. No masses. No tenderness. EXTREMITIES: Trace of bipedal edema. NEUROLOGICAL: Good Not assess patient is sedated and paralyzed. Psychiatric: Could not assess. Sedated and paralyzed.. Skin: No rashes. - Labs CBC & Chem 7: 12/11/20 03:50 12/11/20 03:50 Labs: Abnormal Lab Results - Last 24 Hours (Table) 12/07/20 12/10/20 12/10/20 Range/Units 10:06 12:49 16:40 WBC 27.1 H (3.8-10.6) k/uL RBC 2.81 L (4.30-5.90) m/uL Hgb 8.7 L D (13.0-17.5) gm/dL Hct 24.7 L (39.0-53.0) % RDW 16.8 H (11.5-15.5) % Plt Count 32 L (150-450) k/uL Neutrophils # (Manual) (1.3-7.7) k/uL Metamyelocytes # (Man) (0) k/uL Myelocytes # (Manual) (0) k/uL Nucleated RBCs (0-0) /100 WBC D-Dimer (<0.60) mg/L FEU ABG pH (7.35-7.45) ABG pCO2 (35-45) mmHg ABG pO2 (83-108) mmHg ABG HCO3 (21-25) mmol/L ABG Total CO2 (19-24) mmol/L ABG O2 Saturation (94-97) % Chloride (98-107) mmol/L BUN (9-20) mg/dL Creatinine (0.66-1.25) mg/dL Glucose (74-99) mg/dL POC Glucose (mg/dL) 160 H (75-99) mg/dL Calcium (8.4-10.2) mg/dL Total Bilirubin (0.2-1.3) mg/dL AST (17-59) U/L ALT (4-49) U/L Alkaline Phosphatase (38-126) U/L Lactate Dehydrogenase (313-618) U/L Creatine Kinase (55-170) U/L C-Reactive Protein (<1.0) mg/dL Total Protein (6.3-8.2) g/dL Albumin (3.5-5.0) g/dL Crossmatch See Detail 12/10/20 12/10/20 12/11/20 Range/Units 20:15 23:33 03:14 WBC (3.8-10.6) k/uL RBC (4.30-5.90) m/uL Hgb (13.0-17.5) gm/dL Hct (39.0-53.0) % RDW (11.5-15.5) % Plt Count (150-450) k/uL Neutrophils # (Manual) (1.3-7.7) k/uL Metamyelocytes # (Man) (0) k/uL Myelocytes # (Manual) (0) k/uL Nucleated RBCs (0-0) /100 WBC D-Dimer (<0.60) mg/L FEU ABG pH (7.35-7.45) ABG pCO2 (35-45) mmHg ABG pO2 (83-108) mmHg ABG HCO3 (21-25) mmol/L ABG Total CO2 (19-24) mmol/L ABG O2 Saturation (94-97) % Chloride (98-107) mmol/L BUN (9-20) mg/dL Creatinine (0.66-1.25) mg/dL Glucose (74-99) mg/dL POC Glucose (mg/dL) 156 H 163 H 159 H (75-99) mg/dL Calcium (8.4-10.2) mg/dL Total Bilirubin (0.2-1.3) mg/dL AST (17-59) U/L ALT (4-49) U/L Alkaline Phosphatase (38-126) U/L Lactate Dehydrogenase (313-618) U/L Creatine Kinase (55-170) U/L C-Reactive Protein (<1.0) mg/dL Total Protein (6.3-8.2) g/dL Albumin (3.5-5.0) g/dL Crossmatch 12/11/20 12/11/20 12/11/20 Range/Units 03:50 03:50 03:50 WBC 23.4 H (3.8-10.6) k/uL RBC 2.84 L (4.30-5.90) m/uL Hgb 8.6 L (13.0-17.5) gm/dL Hct 25.3 L (39.0-53.0) % RDW 17.5 H (11.5-15.5) % Plt Count 27 L (150-450) k/uL Neutrophils # (Manual) 18.40 H (1.3-7.7) k/uL Metamyelocytes # (Man) 0.94 H (0) k/uL Myelocytes # (Manual) 0.23 H (0) k/uL Nucleated RBCs 7 H (0-0) /100 WBC D-Dimer 2.34 H (<0.60) mg/L FEU ABG pH (7.35-7.45) ABG pCO2 (35-45) mmHg ABG pO2 (83-108) mmHg ABG HCO3 (21-25) mmol/L ABG Total CO2 (19-24) mmol/L ABG O2 Saturation (94-97) % Chloride 112 H (98-107) mmol/L BUN 93 H (9-20) mg/dL Creatinine 2.78 H (0.66-1.25) mg/dL Glucose 138 H (74-99) mg/dL POC Glucose (mg/dL) (75-99) mg/dL Calcium 6.9 L (8.4-10.2) mg/dL Total Bilirubin 1.5 H (0.2-1.3) mg/dL AST 534 H (17-59) U/L ALT 2759 H (4-49) U/L Alkaline Phosphatase 139 H (38-126) U/L Lactate Dehydrogenase 4086 H (313-618) U/L Creatine Kinase 591 H (55-170) U/L C-Reactive Protein 5.1 H (<1.0) mg/dL Total Protein 3.7 L (6.3-8.2) g/dL Albumin 1.9 L (3.5-5.0) g/dL Crossmatch 12/11/20 12/11/20 12/11/20 Range/Units 04:33 08:27 12:10 WBC (3.8-10.6) k/uL RBC (4.30-5.90) m/uL Hgb (13.0-17.5) gm/dL Hct (39.0-53.0) % RDW (11.5-15.5) % Plt Count (150-450) k/uL Neutrophils # (Manual) (1.3-7.7) k/uL Metamyelocytes # (Man) (0) k/uL Myelocytes # (Manual) (0) k/uL Nucleated RBCs (0-0) /100 WBC D-Dimer (<0.60) mg/L FEU ABG pH 7.30 L (7.35-7.45) ABG pCO2 54 H (35-45) mmHg ABG pO2 58 L* (83-108) mmHg ABG HCO3 27 H (21-25) mmol/L ABG Total CO2 29 H (19-24) mmol/L ABG O2 Saturation 89.5 L (94-97) % Chloride (98-107) mmol/L BUN (9-20) mg/dL Creatinine (0.66-1.25) mg/dL Glucose (74-99) mg/dL POC Glucose (mg/dL) 113 H 117 H (75-99) mg/dL Calcium (8.4-10.2) mg/dL Total Bilirubin (0.2-1.3) mg/dL AST (17-59) U/L ALT (4-49) U/L Alkaline Phosphatase (38-126) U/L Lactate Dehydrogenase (313-618) U/L Creatine Kinase (55-170) U/L C-Reactive Protein (<1.0) mg/dL Total Protein (6.3-8.2) g/dL Albumin (3.5-5.0) g/dL Crossmatch Microbiology - Last 24 Hours (Table) 12/07/20 10:06 Blood Culture - Preliminary Blood No Growth after 96 hours 12/09/20 06:20 Catheter Tip Culture - Final Picc Line 12/08/20 08:00 Urine Culture - Final Urine,Voided Assessment and Plan Assessment: Impression: Acute hypoxic referral failure secondary to COVID-19 pneumonia, intubated on 12/07/2020, received barictinib on 11/15, patient was outside the window for remdesivir Suspect ARDS secondary to COVID-19 pneumonia patient is still requiring relatively high FiO2 and high PEEP, plateau pressure is 35 today. Paroxysmal atrial fibrillation, remains on amiodarone, failed cardioversion. Acute GI bleeding requiring mostly blood products and kcentra, presently off anticoagulation therapy Acute thrombocytopenia, no evidence of DIC. Most likely consumptive in nature. Acute leukocytosis Acute transaminitis, possible shocked liver Acute tubular necrosis and acute kidney injury, patient is being followed by nephrology not requiring replacement therapy yet. Obesity with BMI of 45.9. Elevated inflammatory markers secondary to COVID-19 infection. Recommendation: Continue ventilatory support. Continue sedatives and paralytics. Continue hemodynamic support. Continue to monitor daily labs including CBC, basic metabolic profile, inflamma tory markers, liver profile, renal profile. Continue Protonix. Continue Decadron. Nutritional support/enteral feeding. Continue amiodarone. Overall prognosis remains relatively poor and guarded. Patient remains critically ill. Critical care time is over 30 minutes Time with Patient: Greater than 30
--- NOTE | 2020-12-11 14:24 | P.PN ---
Subjective Progress Note Date: 12/11/20 CHIEF COMPLAINT: COVID-19 pneumonia HISTORY OF PRESENT ILLNESS: Surgical service following due to GI bleed. Patient remains in the ICU intubated and on mechanical ventilation. He is on norepinephrine for hypertension. Patient has had no further bleeding. Afebrile Patient is tachycardic. WBC 23.4 hemoglobin 8.6 he did receive a unit of blood yesterday for hemoglobin of 7.1. platelets 27 elevated liver enzymes likely due to shocked liver PHYSICAL EXAM: VITAL SIGNS: Reviewed. GENERAL: Well-developed in no acute distress. HEENT: No sclera icterus. Extraocular movements grossly intact. Moist buccal mucosa. Head is atraumatic, normocephalic. ABDOMEN: Soft. Nondistended. Nontender. NEUROLOGIC: Patient is intubated and sedated ASSESSMENT: 1. Acute GI bleed 2. Acute blood loss anemia requiring blood transfusion during this admission PLAN: -Patient is unstable. We'll plan for EGD and colonoscopy when medically stable -Continue ICU management -Continue supportive care -Continue to monitor hemoglobin -Continue to monitor for any signs or symptoms of bleeding -Continue to hold anticoagulation -Continue PPI Physician Tuckpointer Cleaner Caulker note has been reviewed by physician. Signing provider agrees with the documented findings, assessment, and plan of care. Objective - Vital Signs Vital signs: Vital Signs Temp 97.7 F 12/11/20 12:00 Pulse 116 H 12/11/20 13:00 Resp 38 H 12/11/20 13:00 BP 104/61 12/10/20 14:02 Pulse Ox 94 L 12/11/20 13:00 Intake & Output 12/10/20 12/11/20 12/11/20 18:59 06:59 18:59 Intake Total 2710.301 6038.381 1216.181 Output Total 780 1050 1171 Balance 958.441 272.381 45.181 Weight 136.3 kg 134.8 kg 136.9 kg Intake: IV 041 923 6285.2 Amiodarone 450 mg In 100.2 Dextrose 5% in Water 250 ml @ 0.5 MG/MIN 16.667 mls/hr IV .Q15H [facility] Rx#: [id number] Normal Saline Pressure 33 36 21 Bag @ 3mL/hr Piperacillin-Tazobactam 3 150 150 100 .375 gm In Sodium Chloride 0.9% 100 ml @ 25 mls/hr IVPB Q8HR [facility] Rx# :[id number] Sodium Chloride 0.9% 1, 750 600 320 000 ml @ 20 mls/hr IV . Q24H [facility] Rx#:[id number] Vancomycin 2,000 mg In 500 Sodium Chloride 0.9% 500 ml 500 ml @ 167 mls/hr IVPB Q12H [facility] Rx#: [id number] Intake, IV Titration 495.441 536.381 174.981 Amount Amiodarone 450 mg In 250 150.836 Dextrose 5% in Water 250 ml @ 0.5 MG/MIN 16.667 mls/hr IV .Q15H [facility] Rx#: [id number] Cisatracurium 200 mg In 129.191 64.379 Sodium Chloride 0.9% 180 ml @ 1 MCG/KG/MIN 6.492 mls/hr IV .Q24H [facility] Rx#: [id number] Norepinephrine 32 mg In 0 33.784 75.383 Sodium Chloride 0.9% 218 ml @ 0.75 MCG/KG/MIN 38. 039 mls/hr IV .Q6H35M [facility] Rx#:[id number] fentaNYL (PF). 1,000 mcg 16.25 In Sodium Chloride 0.9% 80 ml @ 25 MCG/HR 2.5 mls /hr IV .Q24H [facility] Rx#: [id number] fentaNYL (PF). 2,500 mcg 22.292 In Sodium Chloride 0.9% 200 ml @ 0.25 MCG/HR 0. 025 mls/hr IV .Q24H [facility] Rx#:[id number] propofoL 1,000 mg In 100 265.090 99.598 Empty Bag 1 bag @ Titrate IV .Q0M [facility] Rx#: [id number] Blood Product 310 Rc As-1 Unit 310 [id number] Output: Gastric Drainage 300 Urine 780 1050 871 Other: Voiding Method Indwelling Catheter Indwelling Catheter Indwelling Catheter ABP, PAP, CO, CI - Last Documented Arterial Blood Pressure 105/63 - Labs CBC & Chem 7: 12/11/20 03:50 12/11/20 03:50 Labs: Abnormal Lab Results - Last 24 Hours (Table) 12/10/20 12/10/20 12/10/20 Range/Units 16:40 20:15 23:33 WBC (3.8-10.6) k/uL RBC (4.30-5.90) m/uL Hgb (13.0-17.5) gm/dL Hct (39.0-53.0) % RDW (11.5-15.5) % Plt Count (150-450) k/uL Neutrophils # (Manual) (1.3-7.7) k/uL Metamyelocytes # (Man) (0) k/uL Myelocytes # (Manual) (0) k/uL Nucleated RBCs (0-0) /100 WBC D-Dimer (<0.60) mg/L FEU ABG pH (7.35-7.45) ABG pCO2 (35-45) mmHg ABG pO2 (83-108) mmHg ABG HCO3 (21-25) mmol/L ABG Total CO2 (19-24) mmol/L ABG O2 Saturation (94-97) % Chloride (98-107) mmol/L BUN (9-20) mg/dL Creatinine (0.66-1.25) mg/dL Glucose (74-99) mg/dL POC Glucose (mg/dL) 160 H 156 H 163 H (75-99) mg/dL Calcium (8.4-10.2) mg/dL Total Bilirubin (0.2-1.3) mg/dL AST (17-59) U/L ALT (4-49) U/L Alkaline Phosphatase (38-126) U/L Lactate Dehydrogenase (313-618) U/L Creatine Kinase (55-170) U/L C-Reactive Protein (<1.0) mg/dL Total Protein (6.3-8.2) g/dL Albumin (3.5-5.0) g/dL 12/11/20 12/11/20 12/11/20 Range/Units 03:14 03:50 03:50 WBC 23.4 H (3.8-10.6) k/uL RBC 2.84 L (4.30-5.90) m/uL Hgb 8.6 L (13.0-17.5) gm/dL Hct 25.3 L (39.0-53.0) % RDW 17.5 H (11.5-15.5) % Plt Count 27 L (150-450) k/uL Neutrophils # (Manual) 18.40 H (1.3-7.7) k/uL Metamyelocytes # (Man) 0.94 H (0) k/uL Myelocytes # (Manual) 0.23 H (0) k/uL Nucleated RBCs 7 H (0-0) /100 WBC D-Dimer (<0.60) mg/L FEU ABG pH (7.35-7.45) ABG pCO2 (35-45) mmHg ABG pO2 (83-108) mmHg ABG HCO3 (21-25) mmol/L ABG Total CO2 (19-24) mmol/L ABG O2 Saturation (94-97) % Chloride 112 H (98-107) mmol/L BUN 93 H (9-20) mg/dL Creatinine 2.78 H (0.66-1.25) mg/dL Glucose 138 H (74-99) mg/dL POC Glucose (mg/dL) 159 H (75-99) mg/dL Calcium 6.9 L (8.4-10.2) mg/dL Total Bilirubin 1.5 H (0.2-1.3) mg/dL AST 534 H (17-59) U/L ALT 2759 H (4-49) U/L Alkaline Phosphatase 139 H (38-126) U/L Lactate Dehydrogenase 4086 H (313-618) U/L Creatine Kinase 591 H (55-170) U/L C-Reactive Protein 5.1 H (<1.0) mg/dL Total Protein 3.7 L (6.3-8.2) g/dL Albumin 1.9 L (3.5-5.0) g/dL 12/11/20 12/11/20 12/11/20 Range/Units 03:50 04:33 08:27 WBC (3.8-10.6) k/uL RBC (4.30-5.90) m/uL Hgb (13.0-17.5) gm/dL Hct (39.0-53.0) % RDW (11.5-15.5) % Plt Count (150-450) k/uL Neutrophils # (Manual) (1.3-7.7) k/uL Metamyelocytes # (Man) (0) k/uL Myelocytes # (Manual) (0) k/uL Nucleated RBCs (0-0) /100 WBC D-Dimer 2.34 H (<0.60) mg/L FEU ABG pH 7.30 L (7.35-7.45) ABG pCO2 54 H (35-45) mmHg ABG pO2 58 L* (83-108) mmHg ABG HCO3 27 H (21-25) mmol/L ABG Total CO2 29 H (19-24) mmol/L ABG O2 Saturation 89.5 L (94-97) % Chloride (98-107) mmol/L BUN (9-20) mg/dL Creatinine (0.66-1.25) mg/dL Glucose (74-99) mg/dL POC Glucose (mg/dL) 113 H (75-99) mg/dL Calcium (8.4-10.2) mg/dL Total Bilirubin (0.2-1.3) mg/dL AST (17-59) U/L ALT (4-49) U/L Alkaline Phosphatase (38-126) U/L Lactate Dehydrogenase (313-618) U/L Creatine Kinase (55-170) U/L C-Reactive Protein (<1.0) mg/dL Total Protein (6.3-8.2) g/dL Albumin (3.5-5.0) g/dL 12/11/20 Range/Units 12:10 WBC (3.8-10.6) k/uL RBC (4.30-5.90) m/uL Hgb (13.0-17.5) gm/dL Hct (39.0-53.0) % RDW (11.5-15.5) % Plt Count (150-450) k/uL Neutrophils # (Manual) (1.3-7.7) k/uL Metamyelocytes # (Man) (0) k/uL Myelocytes # (Manual) (0) k/uL Nucleated RBCs (0-0) /100 WBC D-Dimer (<0.60) mg/L FEU ABG pH (7.35-7.45) ABG pCO2 (35-45) mmHg ABG pO2 (83-108) mmHg ABG HCO3 (21-25) mmol/L ABG Total CO2 (19-24) mmol/L ABG O2 Saturation (94-97) % Chloride (98-107) mmol/L BUN (9-20) mg/dL Creatinine (0.66-1.25) mg/dL Glucose (74-99) mg/dL POC Glucose (mg/dL) 117 H (75-99) mg/dL Calcium (8.4-10.2) mg/dL Total Bilirubin (0.2-1.3) mg/dL AST (17-59) U/L ALT (4-49) U/L Alkaline Phosphatase (38-126) U/L Lactate Dehydrogenase (313-618) U/L Creatine Kinase (55-170) U/L C-Reactive Protein (<1.0) mg/dL Total Protein (6.3-8.2) g/dL Albumin (3.5-5.0) g/dL Microbiology - Last 24 Hours (Table) 12/07/20 10:06 Blood Culture - Preliminary Blood No Growth after 96 hours 12/09/20 06:20 Catheter Tip Culture - Final Picc Line 12/08/20 08:00 Urine Culture - Final Urine,Voided
[2020-12-11 15:38] LABS: Glucose,Whole Blood 121 mg/dL (75-99)
--- NOTE | 2020-12-11 17:21 | PN ---
PROGRESS NOTE Patient is seen for followup for acute kidney injury. Patient remains on the vent. His urine output has been about 40 to 75 mL/hour. His IV fluids were decreased yesterday to 250 mL/hour. Patient remains on the vent. FiO2 is at 60%. He is off of Levophed. No active bleeding noted. On examination today, blood pressure was 112/70, heart rate of 117 per minute. Patient is afebrile. Examination of lower extremities shows edema 1+ bilaterally with scrotal edema noted as well. SKY CAP exam cannot be performed. Abdomen is soft, nontender. Labs show hemoglobin 8.6, sodium 141, potassium 4.4, chloride 112, BUN 93, serum creatinine 2.78. ASSESSMENT: 1. Acute kidney injury, acute tubular necrosis, nonoliguric, somewhat improving. I will discontinue the IV fluids and I will give a dose of IV Lasix. 2. Mild hypervolemia. Patient will be an administered another dose of IV Lasix. 3. Shock liver. Liver enzymes are decreasing. 4. Acute hypoxic respiratory failure secondary to COVID pneumonia and possible superimposed bacterial pneumonia. 5. Metabolic acidosis associated with acute kidney injury. 6. Atrial fibrillation with rapid ventricular response, maintained on IV amiodarone. PLAN: Repeat IV Lasix. Discontinue IV fluids and repeat labs in a.m. Continue to avoid nephrotoxic agents. MMODL / IJN: [id number] /
[2020-12-11 20:14] LABS: Glucose,Whole Blood 136 mg/dL (75-99)
[2020-12-11 23:48] LABS: Glucose,Whole Blood 135 mg/dL (75-99)
[2020-12-12 04:50] LABS: ABG Base Excess 1.6 mmol/L; ABG HCO3 28 mmol/L (21-25); ABG Oxygen Saturation 93.9 % (94-97); ABG PCO2 55 mmHg (35-45); ABG PH 7.31 (7.35-7.45); ABG PO2 70 mmHg (83-108); ABG TCO2 30 mmol/L (19-24)
[2020-12-12 04:50] LABS: Anisocytosis Slight; HCT 23.5 % (39.0-53.0); MCHC 34.2 g/dL (31.0-37.0); MCV 90.6 fL (80.0-100.0); Mean Platelet Volume 10.5; Poikilocytosis Slight; RBC 2.59 m/uL (4.30-5.90); RDW 16.7 % (11.5-15.5)
[2020-12-12 04:59] LABS: C Reactive Protein 4.8 mg/dL (<1.0); Calcium 7.1 mg/dL (8.4-10.2); Potassium 4.1 mmol/L (3.5-5.1); Total Bilirubin 1.5 mg/dL (0.2-1.3); Total Protein 3.8 g/dL (6.3-8.2)
[2020-12-12 05:11] LABS: Platelet Count 22 k/uL (150-450)
[2020-12-12 05:28] LABS: Band Neutrophils % 13 %; Metamyelocytes % 5 %; Myelocytes % 2 %; Neutrophils % (M) 73 %; Nucleated Red Blood Cells 11 /100 WBC (0-0); Total Cells Counted 200
[2020-12-12 05:29] LABS: Anisocytosis (M) Present; Lymphocytes # (M) 1.16 k/uL (1.0-4.8); Metamyelocytes # (M) 0.97 k/uL (0); Monocytes # (M) 0.19 k/uL (0-1.0); Myelocytes # (M) 0.39 k/uL (0); Polychromasia Present; WBC 19.3 k/uL (3.8-10.6)
[2020-12-12] MEDS: INSULIN ASPART (NovoLOG) 100 UNIT/ML VIAL SQ SCH ×5 (05:53→20:26)
[2020-12-12] MEDS: ARTIFICIAL TEARS-HYPROMELLOSE DROPS 15 ML BTL BOTH EYES SCH ×5 (05:53→20:26)
[2020-12-12 05:54] LABS: Allen Test Performed? no
[2020-12-12] MEDS: SODIUM CHLORIDE 0.9% 1,000 ML IV SCH (05:55)
[2020-12-12] MEDS: NOREPINEPHRINE 32 MG in SODIUM CHLORIDE 0.9% 218 ML IV SCH ×3 (05:55→19:08)
[2020-12-12] MEDS: AMIODARONE 450 MG in DEXTROSE 5% IN WATER 250 ML IV SCH ×2 (07:12)
[2020-12-12] MEDS: INSULIN DETEMIR (LEVEMIR) 100 UNIT/ML SYR SQ SCH ×2 (07:14→20:26)
--- NOTE | 2020-12-12 07:26 | P.PN ---
Subjective Progress Note Date: 12/11/20 HISTORY OF PRESENT ILLNESS This is a pleasant 60-year-old gentleman patient of Dr. Ridge Christina. He doesn't see a physician often and does not note any medical diseases, except for obesity. He comes seen secondary to fever and chills, cough, starting December 06 first, along with muscle aches, lack of appetite and diarrhea. he was tested for call bid November 08, which required at week of reporting, subsequently was sent to emergency room secondary to worsening symptoms, including dyspnea on exertion, shortness of breath and worsening cough without hemoptysis. Fever, sh ortness of breath lingers, no treatment given to him prior to this admission. The is vaccinated, but the patient is not. He does not believe in vaccines at that time. He comes in the emergency room, with hypoxemia, with very minimal conversational dyspnea, chest x-ray, shows pulmonary infiltrate consistent with Covid pneumonia, oxygen currently is at 6 L nasal cannula, d-dimer was 0.6, LFTs are minimally elevated, 64 AST, lactic acid 2.0 sodium 132, creatinine of 0.9, glucose of 122, LDH of 888, CRP of 5.7. Urine protein noted, without hematuria or proteinuria. Covid was again retested 11/14, PCR is positive. Consult to Dr. Eduardo and pulmonary,, 11/16: Patient is currently on oxygen at 6 L nasal cannula increased to 7 L with humidified oxygen. Patient seen and followed by pulmonary medicine and has been started on Bariticinib, Decadron 6 mg daily, and prophylactic dose of Lovenox. He is reaching 1750 on incentive spirometry. Patient did have episode of diarrhea yesterday, none today and complains of decreased appetite. Patient complains of nasal congestion and Flonase added. 11/17: Patient had difficulty with oxygenation during the night and this morning transitioned to Airfo and partial nonrebreather. Pulse ox is currently running 90-92%, patient is prone. He has been afebrile, heart rate 88, blood pressure 104/63. Repeat d-dimer is elevated at 0.93. Blood sugar 167. C-reactive protein increased to 5.3. AST is 83 and ALT 51. Blood culture remains with no growth after 48 hours. Repeat chest x-ray reveals mild cardiomegaly with bilateral multifocal opacities consistent with Covid 19 infection. No significant change from most recent x-ray. Albuterol inhaler and Symbicort inhaler added. 11/18: Patient is currently on AirVo and nonrebreather with pulse ox of 93%. He's been afebrile, heart rate 85, blood pressure 103/68. Blood culture no growth at 72 hours 2 specimens. Plan to continue proning. Repeat laboratory studies ordered for tomorrow including inflammatory markers. The patient is having difficulty sleeping and melatonin added. Lovenox increased to twice daily dosing. 11/19: Patient remains in isolation. He is on AirVO plus nonrebreather with pulse ox of 93%. He has been afebrile, heart rate 85, blood pressure 122/69. Patient is found sitting in recliner and encouraged to prone when he is able to. Repeat blood work reveals WBC 12, hemoglobin 14.8, platelet count 282. D-dimer is 1.38. Other blood work is pending. Patient is continued on Decadron, vitamin supplements, Lovenox. He is on day #07/20 of Baricitinib. 11/20: Patient has been afebrile, heart rate 71, blood pressure 107/71, pulse ox 88-93% on AirVo plus nonrebreather. Patient seems to be depressed and frustrated with coarse. Noted that he started on Xanax yesterday by pulmonary. We will add and Remeron 7.5 mg at bedtime. Hemoglobin A1c came back at 6.4. Patient is encouraged to use incentive spirometry, increase activity, prone. Discussed CODE STATUS with patient and he wishes to be a full code. 11/21: Patient will pulse ox of 83% as he was on Airvo only and once nonrebreather was placed she went up to 89%. Patient is not eating much. He has been encouraged to take protein supplement, increase activity and prone but patient does not seem motivated. He was started on Remeron last night which will hopefully help with his mood and appetite. He has continued on Lovenox, dexamethasone, Baricitinib #09/19 repeat blood work reveals WBC 14.3. D-dimer increasing to 3.2. Electrolytes normal, creatinine 0.76. LDH is high at 1476, C-reactive protein stable 6.6. 11/22: Patient continues to be on airflow and nonrebreather and with minimal movement, pulse ox drops down to 82%, otherwise patient is maintaining 92-94%. One dose of IV Lasix ordered for today. Temperature max yesterday afternoon was 101.2. Heart rate in the 70s and 80s. Blood pressure 110/59. Urinalysis was negative for infection. Repeat blood work will be ordered for tomorrow. 11/23: Patient Was moved into ICU overnight. He has been on BiPAP through the night and pulse oxing 95% recently on his side, currently sitting on the edge of the bed pulse oxing 90%, with talking he drops to 83%. He is scheduled for PICC line insertion and plan to start TPN today. Patient has been afebrile, heart rate in the 60s, respiratory rate 28. WBC 12.0, hemoglobin 15, platelet count 351. Lymphocytes 11.1. D-dimer 2.46. Sodium 136, otherwise electrolytes are normal. BUN 30 creatinine 0.7. Blood sugar 128. Magnesium 2.5. Phosphorus 5.5. LDH 1691. C-reactive protein 13.4. Total protein 5.6. Blood cultures remain with no growth. Repeat chest x-ray this morning reveals stable diffuse bilateral infiltrates. Patient is on Baricitinib 10/20. Pulmonary has increased frequency of dexamethasone to twice daily and changed to IV6 mg IV twice daily. 11/24: Patient remain in the ICU, still on BiPAP with pulse ox is improving at this point. Continue dexamethasone and Baricitinib 11/20, patient had full meal this morning his TPN will be suspended after today. Patient will remain in the ICU at least for the next 48 hours. 11/25: Remain in the ICU still on BiPAP but his pulse ox is slightly bit better he still on dexamethasone and Baricitinib 12/20 seems to do slightly but better was agreed by intensive care studies TPN, patient oral intake is slightly but better and had slight improvement compared to yesterday. Surprisingly his marker went up slightly bit specially his LDH up to 2086 with C-reactive protein 3.6 kidney function remained good white blood cell climb up to 15.1 specially been on steroid. Chest x-ray still shows diffuse bilateral interstitial infiltrate and patchy opacification persistent but there is a slight improvement in the variation in the left lower lobe compared to few days earlier. 11/26: Patient remain on BiPAP with 100% oxygen to keep his pulse ox around 92 percentile, his d-dimer continue to be quite bit elevated today is having Doppler of the lower extremity but notes CT at this point. Remain on Symbicort, and albuterol HFA, his white blood cell is down 17,000, blood sugars better control. Chest x-ray still showed patchy infiltrate throughout both lung felix persistent didn't change. Patient had mild anxiety with no pain currently. 11/27: Patient remains in the intensive care unit. He is placed on airflow for eating and pulse ox drops to the 7083 percent range. Pulse ox 90-93% on100% BiPAP. He is afebrile, heart rate in the 70s, respiratory rate 27 and 32, blood pressure 102/71. WBC 21.5, lymphocytes 0.6. D-dimer 7.29. Blood sugars running between 111 and 171. Ferritin level [id number]. ALT 54, alkaline phosphatase 152. CK 27, C-reactive protein 2.9. Repeat chest x-ray reveals borderline cardiomegaly with prominent pulmonary vascular markings. Diffuse increased lung markings are present. Correlate for heart failure. Atypical pneumonia should be considered. Lower extremity ultrasound negative for DVT bilaterally. 11/28: Patient remains in the intensive care unit and found sitting in a chair at the bedside. He is continued on BiPAP and switched over to Arava and nonrebreather for meals. Repeat chest x-ray essentially unchanged. Repeat blood work reveals WBC 20.4, hemoglobin 14.8, platelet count 130. Sodium 134, potassium 4.8, creatinine 0.62. LDH 2934. C-reactive protein 3.3, d-dimer 10.2. CT angiogram of the chest has been ordered by pulmonary medicine which revealed slightly suboptimal study without evidence of acute pulmonary embolism. Mild cardiomegaly with bilateral cities and multifocal organizing consolidations consistent with Covid19 infection. Lovenox has been changed to 40 mg daily and dexamethasone changed to Solu-Medrol 60 mg every 6 hours. Taco michelle has completed course of Baricitinib. 11/29: Patient remains in the intensive care unit, patient is utilizing BiPAP and also Airvo with nonrebreather mask added at times as he tolerates. His ox ygenation seems to be improving at 89-93%. Respiratory rate 24, heart rate 88, blood pressure 107/58. Patient does verbalize that he is feeling somewhat better today. WBC 16.4, hemoglobin 15.1, platelet count 120. D-dimer 13.49, C- reactive protein 2, LDH 2086, CK 47. Repeat chest x-ray reveals correlate for pneumonia, edema or pulmonary hemorrhage, there is cardiomegaly. Patient is currently continued on Lovenox, Solu-Medrol, bronchodilators and vitamin supplements. 11/30: Patient remains in intensive care unit, he sitting in a chair at the bedside. He is feeling a little bit better and breath sounds are sounding a little better from yesterday. He is currently on AirVO. Pulse ox is running 84-87%, he has been afebrile, heart rate in the 80s and 90s, respiratory rate in the 20s, blood pressure 110/67. Repeat blood work reveals WBC 19.4, platelet count 126. D-dimer 10.2, LDH 2157, CK 78, C-reactive protein 1.5. Sodium 135, BUN 44 creatinine 0.73. Patient is continued on Lovenox, IV Solu-Medrol, bronchodilators and supplements. 12/01: Patient remains in ICU, he is currently sitting in chair at the bedside. Patient continues to state that he feels a bit better breath sounds are sounding better compared to yesterday. He is currently on airflow. His pulse ox is running 87-89%, he is still short of breath with conversation. Patient has been afebrile, heart rate 72, respirations 28, blood pressure 109/61. WBC 16.0, hemoglobin 15.1, platelets 112, potassium 4.6, BUN 39, creatinine 0.84. Patient is continued on Lovenox, IV Solu-Medrol, bronchodilators and supplements. 12/02: Patient remains in ICU, he is currently sitting up in a chair at the bedside. Patient continues to have shortness of breath with activity and conversation. His chest x-ray unchanged to prior studies. D-dimer 5.96. Incentive spirometer is at the bedside however encouragement to utilize if needed. Patient has been afebrile, heart rate 85, respirations 28, blood pressure 138/86 pulse ox is 85-89% on Airvo. 12/03, patient remains ICU, he seems to be gradually improving, intending around for the better, has improvement on shortness of breath with conversation, nothing supple she did today for dyspnea, however with movement, he does have shortness of breath while in bed turning around. Patient has an airflow at 65 L, pulse ox 90%. No new fevers, no melena and hematochezia, nutrition is appropriate, and is getting better. 12/04: Patient remains in the intensive care unit. He is onAirVo with nonrebreather mask on standby. He did have a rise in his heart rate up to the 140s, atrial fibrillation with RVR and pulmonary has started the patient on amiodarone drip. He has been afebrile, respiratory rate 28, pulse ox 94-97%. WBC 18.7, hemoglobin 15.5, platelet count 131. Sodium 134, potassium 4.5, chloride 99, CO2 31, BUN 32 and creatinine 0.72. Blood sugars are running between 144 and 193. AST 71, ALT 283, alkaline phosphatase 82. LDH 1946, C- reactive protein 0.6. D-dimer 4.21. Repeat chest x-ray reveals worsening bilateral diffuse interstitial and patchy airspace disease. 12/05: Patient has been taken out of isolation by infection control. He is now on AirVo, FiO2 at 75%. He does have nonrebreather mask on standby but oxygen needs seem to be improving slightly. He seems to be slightly less short of breath. Nephrology has switched him to oral prednisone and off Solu-Medrol. Patient is on eliquis for atrial fibrillation. Heart rate is currently cont rolled and he has been afebrile. Amiodarone has been discontinued, echocardiogram ordered. Pulse ox is 88%, afebrile, blood pressure 111/72 and heart rate in the 80s. court recording monitor sinus rhythm. Repeat blood work reveals WBC 20.4, hemoglobin 15.2, platelet count 109. Sodium 135, potassium 4.9, chloride 100, CO2 33, BUN 46 and creatinine 0.84. Blood sugars are running between 133 and 231. LDH 1616. 12/06: Patient had difficult is sleeping last night despite use of Remeron and having back pain issues. Tramadol at bedtime ordered. Patient remains in the intensive care unit, he has been moved out of isolation. He continues to be on airflow with pulse ox in the 80s. Blood pressure is soft this morning 85/53 and 92/67 for which fluid bolus of 500 ML's ordered. He's been afebrile, heart rate in the 80s. court recording monitor sinus rhythm. Metoprolol was increased to 25 mg twice daily. Echocardiogram reveals EF of 50-55%. 12/07: She remains in intensive care unit but is doing poorly this morning. He had a large bright red and mostly dark stool last evening and a repeat this morning. Eliquis has been placed on hold, he is very quite vasopressors and started on levo. He is on Protonix 40 mg IV push twice daily. He is scheduled to receive 2 units of packed RBCs for drop in his hemoglobin to 9.4. He is currently receiving 2 L IV fluid bolus. Stool for occult blood was positive. Consult was added for Dr. Ojeda. He is currently on BiPAP at 100% with pulse ox of 100%, heart rate 104, respiratory rate 27, blood pressure 88/51. Other blood work today reveals WBC of 22.6, platelet count of 94. Creatinine 0.82 with BUN of 64. Blood sugars 173. Lactic acid 2.9. INR is 1.5, PTT 25.5, AST 69, ALT 200, LDH 1474. Alkaline phosphatase 57 urinalysis negative for infection. Patient had a previous colonoscopy with Dr. Reyes that was normal. 12/08: Yesterday, patient required intubation was placed on mechanical ventilation after becoming more hypotensive started on vasopressin and norepinephrine and status post 7 L of IV fluid. He is status post transfusion of a total of 4 units of packed RBCs and hemoglobin is currently at 7.8. He has had no further episodes of GI bleeding. Consult with nephrology has been added, potassium came back at 6.5 CAT scan of the abdomen and chest revealed pulmonary edema which is slightly improved. Evidence of new posterior pneumomediastinum, air around the lower thoracic esophagus. Decreased excretion of delayed images small amount of abdominal ascites. No bowel obstruction. Chest x-ray reveals low lung volume with bilateral multifocal and confluent opacities consistent with COVID-19. Patient was seen yesterday by general surgery and patient was tentatively scheduled for EGD and colonoscopy on 12/10: She remains intubated and on mechanical ventilation with tidal volume 375, FiO2 60, PEEP of 14. Patient went into A. fib with RVR uncontrolled status post bolus of amiodarone and fluid bolus, shock 3 without conversion and is currently at 140 bpm. He remains on norepinephrine and vasopressin but on lower doses. He is also on Nimbex and propofol. Patient is not on anticoagulation at this point due to GI bleed. Patient has been afebrile, respiratory rate 38, but pressure 86/51, pulse ox 97%. Repeat blood work reveals WBC 21.2, hemoglobin 8.5, platelet count 45. BUN 74 creatinine 2.42. Blood sugars running in the 200s and Levemir 10 units twice daily added along with scale. Magnesium 1.7. AST 2912, ALT 5134. Chest x-ray reveals low lung volumes with bilateral mul tifocal and confluent opacities consistent with Covid 19. 12/10: She remains intubated and on mechanical ventilation with tidal volume 375, FiO2 60, PEEP of 12. Heart rate is anywhere from 115 to 130 in a fib. Patient was off vasopressor and Levophed for blood pressure dropped this morning is back on levo fed. He has had good urine output. He is also on Nimbex, propofol and fentanyl drips. He has had no further bloody tarry stools., WBC 27.1, platelet count 232. BUN 86 and creatinine 2.91. Patient is on tube feedings. EGD and colonoscopy are on hold until patient is medically stable. Patient's is at bedside and all questions have been answered. 12/11: Patient remains intubated and on mechanical ventilation with tidal volume 375, FiO2 60, peep 12. One dose of IV Lasix 40 this am. Continues in afib rvr. Patient is to be weaned off pressors today. Medication changes have been made. He is on to prevent, Nimbex and continues on amiodarone drip. Plan is for sedation holiday if patient does well. He has had good urine output. His had no bowel movement since the GI bleed. Tube feedings are to start. He has been afebrile, heart rate is running up to the 130s, blood pressure 104/63, pulse ox 94%. Blood sugars are well controlled with current regime. Leukocytosis is slowly improving at 23.4, hemoglobin today is 8.6, platelet count 27. BUN 93 and creatinine 2.78, potassium 4.4. Inflammatory markers: Ferritin 17,090, LDH 4086, CK 591, C-reactive protein 5.1, d-dimer 2.34. Repeat chest x-ray report is unchanged. REVIEW OF SYSTEMS Unable to obtain as patient is intubated and on mechanical ventilation PHYSICAL EXAMINATION Gen: This is a 60-year-old obese male in the ICU intubated and on mechanical ventilation and appears to be comfortable. HEENT: Head is atraumatic, normocephalic. Pupils equal, round. Sclerae is anicteric, conjunctiva edema. Oral ET and gastric tubes in place. NECK: Supple. No JVD. No lymphadenopathy. No thyromegaly. LUNGS: Diminished with crackles in the bilateral bases. HEART: Regular rate and rhythm. No murmur. ABDOMEN: obese. Soft. Bowel sounds are present. No masses. No tenderness. Mackenzie catheter draining clear frederick urine. EXTREMITIES: His bilateral pedal edema. No calf tenderness. NEUROLOGICAL: Patient is sedated. ASSESSMENT AND PLAN 1. Acute respiratory failure: Secondary to COVID-19 requiring intubation and mechanical ventilation, with possible secondary bacterial pneumonia, pulmonary medicine, continue Ventolin inhaler, dexamethasone 4 mg IV daily, Zosyn, vancomycin, vitamin supplements. Patient is off Lovenox/eliquis due to GI bleed. 2. Sepsis (POA) secondary to COVID-19 pneumonia, with acute hypoxemic respi ratory failure, diagnosis was of 11/08/2020. 3. Moderate protein calorie malnutrition secondary to poor oral intake. Oral gastric feedings to 4. New-onset atrial fibrillation with RVR, paroxysmal atrial fibrillation. Amiodarone drip status post boluses. Eliquis placed on hold. Echocardiogram as above. 5. Thrombocytopenia secondary to sepsis. No anticoagulation due to thrombocytopenia, GI bleed 6. Acute GI bleed. Eliquis placed on hold, 4 units packed RBCs, IV fluid boluses, consult with Dr. Ojeda appreciated. EGD and colonoscopy once patient is stabilized.. 7. Acute hypovolemic shock or septic shock requiring vasopressors, massive IV fluid resuscitation. Vasopressors to be weaned off today. 8. Acute kidney injury with ATN secondary to septic shock. Consult with nephrology appreciated 9. Metabolic acidosis secondary to acute kidney injury. 10. Severe hyperkalemia secondary to acute kidney injury. Followed by nephrology. 11. Shock liver secondary to hypotension. Monitor liver function test. 12. DVT prophylaxis. 13. GI prophylaxis. Protonic. 14. BPH. Mackenzie catheter 15. Proteinuria, unknown cause. 16. Dymetabolic syndrome, monitor for hyperglycemia, A1c 6.4. NovoLog scale every 4 hours, added Levemir 10 units twice daily. 17. Back pain. CODE Status: Full code Prognosis: guarded. Impression and plan of care have been directed as dictated by the signing physician. Sanam Valentine nurse practitioner acting as scribe for signing physic sushila. Objective - Vital Signs Vital signs: Vital Signs Temp 97.7 F 12/11/20 12:00 Pulse 108 H 12/11/20 12:00 Resp 38 H 12/11/20 12:00 BP 104/61 12/10/20 14:02 Pulse Ox 93 L 12/11/20 12:00 Intake & Output 12/10/20 12/11/20 12/11/20 18:59 06:59 18:59 Intake Total 6776.417 0332.381 1174.064 Output Total 780 1050 846 Balance 958.441 272.381 328.064 Weight 136.3 kg 134.8 kg 136.9 kg Intake: IV 841 887 9274.5 Amiodarone 450 mg In 83.5 Dextrose 5% in Water 250 ml @ 0.5 MG/MIN 16.667 mls/hr IV .Q15H [facility] Rx#: [id number] Normal Saline Pressure 33 36 18 Bag @ 3mL/hr Piperacillin-Tazobactam 3 150 150 100 .375 gm In Sodium Chloride 0.9% 100 ml @ 25 mls/hr IVPB Q8HR [facility] Rx# :[id number] Sodium Chloride 0.9% 1, 750 600 300 000 ml @ 20 mls/hr IV . Q24H [facility] Rx#:[id number] Vancomycin 2,000 mg In 500 Sodium Chloride 0.9% 500 ml 500 ml @ 167 mls/hr IVPB Q12H [facility] Rx#: [id number] Intake, IV Titration 495.441 536.381 172.564 Amount Amiodarone 450 mg In 250 150.836 Dextrose 5% in Water 250 ml @ 0.5 MG/MIN 16.667 mls/hr IV .Q15H [facility] Rx#: [id number] Cisatracurium 200 mg In 129.191 64.379 Sodium Chloride 0.9% 180 ml @ 1 MCG/KG/MIN 6.492 mls/hr IV .Q24H [facility] Rx#: [id number] Norepinephrine 32 mg In 0 33.784 72.966 Sodium Chloride 0.9% 218 ml @ 0.75 MCG/KG/MIN 38. 039 mls/hr IV .Q6H35M [facility] Rx#:[id number] fentaNYL (PF). 1,000 mcg 16.25 In Sodium Chloride 0.9% 80 ml @ 25 MCG/HR 2.5 mls /hr IV .Q24H [facility] Rx#: [id number] fentaNYL (PF). 2,500 mcg 22.292 In Sodium Chloride 0.9% 200 ml @ 0.25 MCG/HR 0. 025 mls/hr IV .Q24H [facility] Rx#:[id number] propofoL 1,000 mg In 100 265.090 99.598 Empty Bag 1 bag @ Titrate IV .Q0M [facility] Rx#: [id number] Blood Product 310 Rc As-1 Unit 310 [id number] Output: Gastric Drainage 300 Urine 780 1050 546 Other: Voiding Method Indwelling Catheter Indwelling Catheter Indwelling Catheter ABP, PAP, CO, CI - Last Documented Arterial Blood Pressure 106/65 - Labs CBC & Chem 7: 12/12/20 03:35 12/12/20 03:35 Labs: Abnormal Lab Results - Last 24 Hours (Table) 12/07/20 12/10/20 12/10/20 Range/Units 10:06 12:49 16:40 WBC 27.1 H (3.8-10.6) k/uL RBC 2.81 L (4.30-5.90) m/uL Hgb 8.7 L D (13.0-17.5) gm/dL Hct 24.7 L (39.0-53.0) % RDW 16.8 H (11.5-15.5) % Plt Count 32 L (150-450) k/uL Neutrophils # (Manual) (1.3-7.7) k/uL Metamyelocytes # (Man) (0) k/uL Myelocytes # (Manual) (0) k/uL Nucleated RBCs (0-0) /100 WBC D-Dimer (<0.60) mg/L FEU ABG pH (7.35-7.45) ABG pCO2 (35-45) mmHg ABG pO2 (83-108) mmHg ABG HCO3 (21-25) mmol/L ABG Total CO2 (19-24) mmol/L ABG O2 Saturation (94-97) % Chloride (98-107) mmol/L BUN (9-20) mg/dL Creatinine (0.66-1.25) mg/dL Glucose (74-99) mg/dL POC Glucose (mg/dL) 160 H (75-99) mg/dL Calcium (8.4-10.2) mg/dL Total Bilirubin (0.2-1.3) mg/dL AST (17-59) U/L ALT (4-49) U/L Alkaline Phosphatase (38-126) U/L Lactate Dehydrogenase (313-618) U/L Creatine Kinase (55-170) U/L C-Reactive Protein (<1.0) mg/dL Total Protein (6.3-8.2) g/dL Albumin (3.5-5.0) g/dL Crossmatch See Detail 12/10/20 12/10/20 12/11/20 Range/Units 20:15 23:33 03:14 WBC (3.8-10.6) k/uL RBC (4.30-5.90) m/uL Hgb (13.0-17.5) gm/dL Hct (39.0-53.0) % RDW (11.5-15.5) % Plt Count (150-450) k/uL Neutrophils # (Manual) (1.3-7.7) k/uL Metamyelocytes # (Man) (0) k/uL Myelocytes # (Manual) (0) k/uL Nucleated RBCs (0-0) /100 WBC D-Dimer (<0.60) mg/L FEU ABG pH (7.35-7.45) ABG pCO2 (35-45) mmHg ABG pO2 (83-108) mmHg ABG HCO3 (21-25) mmol/L ABG Total CO2 (19-24) mmol/L ABG O2 Saturation (94-97) % Chloride (98-107) mmol/L BUN (9-20) mg/dL Creatinine (0.66-1.25) mg/dL Glucose (74-99) mg/dL POC Glucose (mg/dL) 156 H 163 H 159 H (75-99) mg/dL Calcium (8.4-10.2) mg/dL Total Bilirubin (0.2-1.3) mg/dL AST (17-59) U/L ALT (4-49) U/L Alkaline Phosphatase (38-126) U/L Lactate Dehydrogenase (313-618) U/L Creatine Kinase (55-170) U/L C-Reactive Protein (<1.0) mg/dL Total Protein (6.3-8.2) g/dL Albumin (3.5-5.0) g/dL Crossmatch 12/11/20 12/11/20 12/11/20 Range/Units 03:50 03:50 03:50 WBC 23.4 H (3.8-10.6) k/uL RBC 2.84 L (4.30-5.90) m/uL Hgb 8.6 L (13.0-17.5) gm/dL Hct 25.3 L (39.0-53.0) % RDW 17.5 H (11.5-15.5) % Plt Count 27 L (150-450) k/uL Neutrophils # (Manual) 18.40 H (1.3-7.7) k/uL Metamyelocytes # (Man) 0.94 H (0) k/uL Myelocytes # (Manual) 0.23 H (0) k/uL Nucleated RBCs 7 H (0-0) /100 WBC D-Dimer 2.34 H (<0.60) mg/L FEU ABG pH (7.35-7.45) ABG pCO2 (35-45) mmHg ABG pO2 (83-108) mmHg ABG HCO3 (21-25) mmol/L ABG Total CO2 (19-24) mmol/L ABG O2 Saturation (94-97) % Chloride 112 H (98-107) mmol/L BUN 93 H (9-20) mg/dL Creatinine 2.78 H (0.66-1.25) mg/dL Glucose 138 H (74-99) mg/dL POC Glucose (mg/dL) (75-99) mg/dL Calcium 6.9 L (8.4-10.2) mg/dL Total Bilirubin 1.5 H (0.2-1.3) mg/dL AST 534 H (17-59) U/L ALT 2759 H (4-49) U/L Alkaline Phosphatase 139 H (38-126) U/L Lactate Dehydrogenase 4086 H (313-618) U/L Creatine Kinase 591 H (55-170) U/L C-Reactive Protein 5.1 H (<1.0) mg/dL Total Protein 3.7 L (6.3-8.2) g/dL Albumin 1.9 L (3.5-5.0) g/dL Crossmatch 12/11/20 12/11/20 12/11/20 Range/Units 04:33 08:27 12:10 WBC (3.8-10.6) k/uL RBC (4.30-5.90) m/uL Hgb (13.0-17.5) gm/dL Hct (39.0-53.0) % RDW (11.5-15.5) % Plt Count (150-450) k/uL Neutrophils # (Manual) (1.3-7.7) k/uL Metamyelocytes # (Man) (0) k/uL Myelocytes # (Manual) (0) k/uL Nucleated RBCs (0-0) /100 WBC D-Dimer (<0.60) mg/L FEU ABG pH 7.30 L (7.35-7.45) ABG pCO2 54 H (35-45) mmHg ABG pO2 58 L* (83-108) mmHg ABG HCO3 27 H (21-25) mmol/L ABG Total CO2 29 H (19-24) mmol/L ABG O2 Saturation 89.5 L (94-97) % Chloride (98-107) mmol/L BUN (9-20) mg/dL Creatinine (0.66-1.25) mg/dL Glucose (74-99) mg/dL POC Glucose (mg/dL) 113 H 117 H (75-99) mg/dL Calcium (8.4-10.2) mg/dL Total Bilirubin (0.2-1.3) mg/dL AST (17-59) U/L ALT (4-49) U/L Alkaline Phosphatase (38-126) U/L Lactate Dehydrogenase (313-618) U/L Creatine Kinase (55-170) U/L C-Reactive Protein (<1.0) mg/dL Total Protein (6.3-8.2) g/dL Albumin (3.5-5.0) g/dL Crossmatch Microbiology - Last 24 Hours (Table) 12/07/20 10:06 Blood Culture - Preliminary Blood No Growth after 96 hours 12/09/20 06:20 Catheter Tip Culture - Final Picc Line 12/08/20 08:00 Urine Culture - Final Urine,Voided
[2020-12-12] MEDS: ALBUTEROL HFA INHALER INHALATION PRN ×3 (07:28→15:10)
[2020-12-12] MEDS: fentaNYL (PF). 1,000 MCG in SODIUM CHLORIDE 0.9% 80 ML IV SCH ×2 (08:11→22:30)
[2020-12-12 08:28] LABS: Glucose,Whole Blood 149 mg/dL (75-99)
[2020-12-12] MEDS: PIPERACILLIN-TAZOBACTAM 3.375 GM in SODIUM CHLORIDE 0.9% 100 ML IVPB SCH (08:30)
[2020-12-12] MEDS: CHLORHEXIDINE GLUCONATE 15 ML CUP MUCOUS MEM SCH ×2 (08:30→20:26)
[2020-12-12] MEDS: ZINC SULFATE 220 MG CAP PO SCH (08:31)
[2020-12-12] MEDS: ASCORBIC ACID 500 MG TAB PO SCH ×2 (08:31→20:26)
[2020-12-12] MEDS: PANTOPRAZOLE 40 MG/10 ML VIAL IVP SCH ×2 (08:31→20:25)
[2020-12-12] MEDS: DEXAMETHASONE SOD PHOSPHATE 4 MG/ML 1 ML VIAL IV SCH (08:31)
[2020-12-12] MEDS: CHOLECALCIFEROL 25 MCG (1000 IU) TABLET PO SCH (08:31)
--- NOTE | 2020-12-12 08:38 | XR ---
EXAMINATION TYPE: XR chest 1V portable DATE OF EXAM: 12/12/2020 COMPARISON: 12/11/2020 INDICATION: Tube placement TECHNIQUE: Single frontal view of the chest is obtained. FINDINGS: The heart size is normal. The pulmonary vasculature is prominent. There is diffuse infiltrate present throughout bilateral lung felix. Left central venous catheter is present with the tip in the distal superior vena cava region. Endotra cheal tube tip is above the kamilah. Nasogastric tube transverses the thorax. IMPRESSION: 1. Diffuse infiltrate appears stable from comparison. 2. Multiple lines and catheters discussed above
--- NOTE | 2020-12-12 11:18 | P.PN ---
Subjective Progress Note Date: 12/12/20 Principal diagnosis: Acute hypoxic respiratory failure secondary to COVID-19 pneumonia. On 12/10/2020 patient seen in follow-up in intensive care unit, he was intubated and placed on mechanical ventilator last Thursday on 12/07/2020. Patient at the time he has developed worsening hypoxic respiratory failure and acute GI blood loss anemia and Hemorrhagic shock requiring transfusion with 4 units of packed red blood cells, K Sentra infusion for reversal of Eliquis, and she was fluid resuscitated with a total of 7 L of fluid. At the same time she was intubated and placed on mechanical ventilator on which he remains today, he is currently on assist control mode of ventilation with a rate of 30, tidal M is 375, FiO2 of 60% and PEEP of 12. This morning's blood gas shows pO2 of 57, pCO2 of 53 a pH of 7.33, and this was on FiO2 of 60%. Patient has been weaned off the vasopressor support, his Levothroid and vasopressin have been off for over 24 hours, he is currently complaining of a rate of 75 ML per hour, amiodarone is at 0.5 mg per hour, and index is at 1 davon per kilo per minute, Diprivan is a 35 mics per kilo per minute. Patient has not had any further bleeding since yesterday. His chest x-ray shows continued bilateral diffuse airspace disease, with worsening at the left base. Patient is still tachycardic with a rate in the 140s BPM and what appears to be in sinus mechanism. Today's labs have been reviewed, showing improving white count which is down to 19.9, hemoglobin is 7.1, platelet count is 28, sodium is 140, potassium is 4.2, chloride is 111, CO2 is 28, BUN is 86, creatinine 2.91, and the patient's renal profile has slightly worsened since yesterday. His AST is improving and is down to 794 from 2912, ALT is 3274, improving, patient has not had a LDH and CRP done in the last 3 or 4 days. Cortisol level was 35 2 days ago, urinalysis without sign of infection, stool for occult blood was positive, his anticoagulation remains on hold. His PICC line has been removed, and catheter tip culture is pending at this time, all his blood and urine cultures have remained negative thus far. Patient remains on multivitamins, she remains on Decadron currently at 4 mg daily, he is on Protonix 40 mg twice daily, he remains on empiric antibiotics in the form of Zosyn and vancomycin. His urine output has been in the order of 45-50 ML per hour. Patient was reevaluated today on 12/11/2020, remains in the ICU, intubated and mechanically ventilated, sedated and paralyzed. Patient is on assist control rate of 38 tidal volume 375 FiO2 60% and PEEP is 12. ABG showed a pO2 of 58 pCO2 of 54 pH of 7.30. Peak airway pressure is 43 plateau pressure is 35. Drips include amiodarone at 0.5, Nimbex at 1, fentanyl at 25 mcg/kg/m, norepinephrine at 0.04 mcg/kg/m, and IV fluid at 50 mL per hour. Chest x-ray continues to show bilateral infiltrates, not much of a change overall. It is consistent with COVID-19 pneumonia. Labs include WBC count of 23.4 hemoglobin 8.6 platelets are low at 27,000, BUN of 93 creatinine 2.78. Inflammatory markers remain high including elevated LDH of 4 above 4000s CPK 591 and C- reactive protein 5.1 transaminases are high with ALT of 2759 and AST of 234 Medications include albuterol, amiodarone, vitamin C, Peridex, vitamin D3, Nimbex, Decadron 4 mg IV push daily, fentanyl, insulin, norepinephrine, Protonix, Zosyn, zinc. Patient is not on any anticoagulation therapy at this point because of his recent massive bleed requiring 5 units of packed RBCs, hemoglobin today is 8.6 Reevaluated today on12/12/2020, patient remains in the ICU, intubated and mechanically ventilated. Patient remains on assist control rate of 38 tidal volume to 75 FiO2 60% PEEP of 12 ABG today showed a pO2 of 70 pCO2 55 pH of 7.31. Patient remains on multiple drips including propofol and fentanyl, presently off Nimbex, may have to increase his propofol to 50 and fentanyl 2015 document per kilo per minute, and we will titrate dose again if the patient tolerates being off Nimbex. He is also on amiodarone drip at 0.5 mg/m. IV flui ds at KVO. He is receiving enteral feedings. He is to receive 1 unit of platelets today because of low platelets. And considering the patient had negative cultures and no specific positive cultures will discontinue antibiotics. Altogether. Chest x-ray continues to show bilateral infiltrates consistent with COVID-19 pneumonia. Medications are relatively unchanged as noted above, patient is not requiring any norepinephrine, and we have decided to discontinue Nimbex this morning. WBC count today is 19.3 hemoglobin is 8 d- dimer is 2.64. Basic metabolic profile is normal BUN is 99 creatinine 2.55, slightly improved liver enzymes remain elevated with AST of 273 ALT of 03/17/2005, LDH is down to 3869. 4.8 Objective - Vital Signs Vital signs: Vital Signs Temp 98.6 F 12/12/20 10:50 Pulse 75 12/12/20 11:00 Resp 38 H 12/12/20 11:00 BP 138/53 12/12/20 10:50 Pulse Ox 90 L 12/12/20 11:00 Intake & Output 12/11/20 12/12/20 12/12/20 18:59 06:59 18:59 Intake Total 2118.009 1043.368 902.621 Output Total 2546 1505 575 Balance -427.991 -461.632 327.621 Weight 136.9 kg Intake: IV 1339.7 292.7 190 Amiodarone 450 mg In 183.7 16.7 Dextrose 5% in Water 250 ml @ 0.5 MG/MIN 16.667 mls/hr IV .Q15H [facility] Rx#: [id number] Normal Saline Pressure 36 36 15 Bag @ 3mL/hr Piperacillin-Tazobactam 3 200 75 .375 gm In Sodium Chloride 0.9% 100 ml @ 25 mls/hr IVPB Q8HR [facility] Rx# :[id number] Sodium Chloride 0.9% 1, 420 240 100 000 ml @ 20 mls/hr IV . Q24H [facility] Rx#:[id number] Vancomycin 2,000 mg In 500 Sodium Chloride 0.9% 500 ml 500 ml @ 167 mls/hr IVPB Q12H [facility] Rx#: [id number] Intake, IV Titration 688.309 350.668 472.621 Amount Amiodarone 450 mg In 250 242.505 Dextrose 5% in Water 250 ml @ 0.5 MG/MIN 16.667 mls/hr IV .Q15H [facility] Rx#: [id number] Cisatracurium 200 mg In 82.665 60.159 149.640 Sodium Chloride 0.9% 180 ml @ 1 MCG/KG/MIN 6.492 mls/hr IV .Q24H [facility] Rx#: [id number] Norepinephrine 32 mg In 75.383 Sodium Chloride 0.9% 218 ml @ 0.75 MCG/KG/MIN 38. 039 mls/hr IV .Q6H35M [facility] Rx#:[id number] fentaNYL (PF). 1,000 mcg 5.729 In Sodium Chloride 0.9% 80 ml @ 0.25 MCG/KG/HR 3. 37 mls/hr IV .Q24H [facility] Rx #:[id number] propofoL 1,000 mg In 280.261 290.509 74.747 Empty Bag 1 bag @ Titrate IV .Q0M [facility] Rx#: [id number] Tube Feeding 60 310 210 Blood Product 0 Platelet Pheresis Pas 0 Psoralen Unit [id number] Other 30 90 30 Output: Gastric Drainage 300 Urine 2246 1505 575 Other: Voiding Method Indwelling Catheter Indwelling Catheter Indwelling Catheter ABP, PAP, CO, CI - Last Documented Arterial Blood Pressure 119/52 - Exam Gen: This is a 60-year-old obese male, intubated and mechanically ventilated. Sedated with fentanyl and propofol, presently off Nimbex. HEENT: Head is atraumatic, normocephalic. [place], EOMI, nonicteric, no neck masses, no JVD. Tracheal tube is intact. Mucous membranes are unremarkable. NECK: Supple. No JVD. No lymphadenopathy. No thyromegaly. LUNGS: Crackles at the bases persist, no rhonchi no wheezes. HEART: Regular rate and rhythm. No murmur. ABDOMEN: obese. Soft. Bowel sounds are present. No masses. No tenderness. EXTREMITIES: Trace of bipedal edema. NEUROLOGICAL: Good Not assess patient is sedated, not paralysis. Psychiatric: Could not assess. Sedated . Skin: No rashes. - Labs CBC & Chem 7: 12/12/20 03:35 12/12/20 03:35 Labs: Abnormal Lab Results - Last 24 Hours (Table) 12/11/20 12/11/20 12/11/20 Range/Units 03:50 12:10 15:36 WBC (3.8-10.6) k/uL RBC (4.30-5.90) m/uL Hgb (13.0-17.5) gm/dL Hct (39.0-53.0) % RDW (11.5-15.5) % Plt Count (150-450) k/uL Neutrophils # (Manual) (1.3-7.7) k/uL Metamyelocytes # (Man) (0) k/uL Myelocytes # (Manual) (0) k/uL Nucleated RBCs (0-0) /100 WBC D-Dimer (<0.60) mg/L FEU ABG pH (7.35-7.45) ABG pCO2 (35-45) mmHg ABG pO2 (83-108) mmHg ABG HCO3 (21-25) mmol/L ABG Total CO2 (19-24) mmol/L ABG O2 Saturation (94-97) % Chloride (98-107) mmol/L BUN (9-20) mg/dL Creatinine (0.66-1.25) mg/dL Glucose (74-99) mg/dL POC Glucose (mg/dL) 117 H 121 H (75-99) mg/dL Calcium (8.4-10.2) mg/dL Ferritin 64914.0 H (22.0-322.0) ng/mL Total Bilirubin (0.2-1.3) mg/dL AST (17-59) U/L ALT (4-49) U/L Alkaline Phosphatase (38-126) U/L Lactate Dehydrogenase (313-618) U/L Creatine Kinase (55-170) U/L C-Reactive Protein (<1.0) mg/dL Total Protein (6.3-8.2) g/dL Albumin (3.5-5.0) g/dL 12/11/20 12/11/20 12/12/20 Range/Units 20:13 23:45 03:35 WBC 19.3 H (3.8-10.6) k/uL RBC 2.59 L (4.30-5.90) m/uL Hgb 8.0 L (13.0-17.5) gm/dL Hct 23.5 L (39.0-53.0) % RDW 16.7 H (11.5-15.5) % Plt Count 22 L (150-450) k/uL Neutrophils # (Manual) 16.50 H (1.3-7.7) k/uL Metamyelocytes # (Man) 0.97 H (0) k/uL Myelocytes # (Manual) 0.39 H (0) k/uL Nucleated RBCs 11 H (0-0) /100 WBC D-Dimer (<0.60) mg/L FEU ABG pH (7.35-7.45) ABG pCO2 (35-45) mmHg ABG pO2 (83-108) mmHg ABG HCO3 (21-25) mmol/L ABG Total CO2 (19-24) mmol/L ABG O2 Saturation (94-97) % Chloride (98-107) mmol/L BUN (9-20) mg/dL Creatinine (0.66-1.25) mg/dL Glucose (74-99) mg/dL POC Glucose (mg/dL) 136 H 135 H (75-99) mg/dL Calcium (8.4-10.2) mg/dL Ferritin (22.0-322.0) ng/mL Total Bilirubin (0.2-1.3) mg/dL AST (17-59) U/L ALT (4-49) U/L Alkaline Phosphatase (38-126) U/L Lactate Dehydrogenase (313-618) U/L Creatine Kinase (55-170) U/L C-Reactive Protein (<1.0) mg/dL Total Protein (6.3-8.2) g/dL Albumin (3.5-5.0) g/dL 12/12/20 12/12/20 12/12/20 Range/Units 03:35 03:35 04:48 WBC (3.8-10.6) k/uL RBC (4.30-5.90) m/uL Hgb (13.0-17.5) gm/dL Hct (39.0-53.0) % RDW (11.5-15.5) % Plt Count (150-450) k/uL Neutrophils # (Manual) (1.3-7.7) k/uL Metamyelocytes # (Man) (0) k/uL Myelocytes # (Manual) (0) k/uL Nucleated RBCs (0-0) /100 WBC D-Dimer 2.64 H (<0.60) mg/L FEU ABG pH 7.31 L (7.35-7.45) ABG pCO2 55 H (35-45) mmHg ABG pO2 70 L (83-108) mmHg ABG HCO3 28 H (21-25) mmol/L ABG Total CO2 30 H (19-24) mmol/L ABG O2 Saturation 93.9 L (94-97) % Chloride 113 H (98-107) mmol/L BUN 99 H (9-20) mg/dL Creatinine 2.55 H (0.66-1.25) mg/dL Glucose 136 H (74-99) mg/dL POC Glucose (mg/dL) (75-99) mg/dL Calcium 7.1 L (8.4-10.2) mg/dL Ferritin (22.0-322.0) ng/mL Total Bilirubin 1.5 H (0.2-1.3) mg/dL AST 273 H (17-59) U/L ALT 1906 H (4-49) U/L Alkaline Phosphatase 128 H (38-126) U/L Lactate Dehydrogenase 3869 H (313-618) U/L Creatine Kinase 334 H (55-170) U/L C-Reactive Protein 4.8 H (<1.0) mg/dL Total Protein 3.8 L (6.3-8.2) g/dL Albumin 2.0 L (3.5-5.0) g/dL 12/12/20 Range/Units 08:26 WBC (3.8-10.6) k/uL RBC (4.30-5.90) m/uL Hgb (13.0-17.5) gm/dL Hct (39.0-53.0) % RDW (11.5-15.5) % Plt Count (150-450) k/uL Neutrophils # (Manual) (1.3-7.7) k/uL Metamyelocytes # (Man) (0) k/uL Myelocytes # (Manual) (0) k/uL Nucleated RBCs (0-0) /100 WBC D-Dimer (<0.60) mg/L FEU ABG pH (7.35-7.45) ABG pCO2 (35-45) mmHg ABG pO2 (83-108) mmHg ABG HCO3 (21-25) mmol/L ABG Total CO2 (19-24) mmol/L ABG O2 Saturation (94-97) % Chloride (98-107) mmol/L BUN (9-20) mg/dL Creatinine (0.66-1.25) mg/dL Glucose (74-99) mg/dL POC Glucose (mg/dL) 149 H (75-99) mg/dL Calcium (8.4-10.2) mg/dL Ferritin (22.0-322.0) ng/mL Total Bilirubin (0.2-1.3) mg/dL AST (17-59) U/L ALT (4-49) U/L Alkaline Phosphatase (38-126) U/L Lactate Dehydrogenase (313-618) U/L Creatine Kinase (55-170) U/L C-Reactive Protein (<1.0) mg/dL Total Protein (6.3-8.2) g/dL Albumin (3.5-5.0) g/dL Microbiology - Last 24 Hours (Table) 12/07/20 10:06 Blood Culture - Preliminary Blood No Growth after 96 hours 12/09/20 06:20 Catheter Tip Culture - Final Picc Line Assessment and Plan Assessment: Impression: Acute hypoxic referral failure secondary to COVID-19 pneumonia, intubated on 12/07/2020, received barictinib on 11/15, patient was outside the window for remdesivir Suspect ARDS secondary to COVID-19 pneumonia FiO2 remains a 60%, and PEEP is down to 12. Paroxysmal atrial fibrillation, remains on amiodarone, failed cardioversion. Acute GI bleeding requiring mostly blood products and kcentra, presently off anticoagulation therapy Acute thrombocytopenia, no evidence of DIC. Most likely consumptive in nature. Considering the low platelets today, will receive 1 unit of platelets. Acute leukocytosis Acute transaminitis/shocked liver Acute tubular necrosis and acute kidney injury, patient is being followed by nephrology not requiring replacement therapy yet. Obesity with BMI of 45.9. Elevated inflammatory markers secondary to COVID-19 infection. Recommendation: Continue ventilatory support. Discontinue antibiotics, transfusions with 1 unit of platelets. Continue sedatives will try to discontinue Nimbex and see if we could ventilate the patient properly with sedatives only. And narcotics. Continue to monitor daily labs including CBC, basic metabolic profile, inflammatory markers, liver profile, renal profile. Continue Protonix. Continue Decadron. Nutritional support/enteral feeding. Continue amiodarone. Overall prognosis remains relatively poor and guarded. Patient remains critically ill. Critical care time is over 30 minutes Time with Patient: Greater than 30
[2020-12-12 12:12] LABS: Glucose,Whole Blood 141 mg/dL (75-99)
[2020-12-12] MEDS: FUROSEMIDE 10 MG/ML 4 ML VIAL IV SCH (12:12)
--- NOTE | 2020-12-12 13:28 | P.PN ---
Subjective Progress Note Date: 12/12/20 HISTORY OF PRESENT ILLNESS This is a pleasant 60-year-old gentleman patient of Dr. Ridge Christina. He doesn't see a physician often and does not note any medical diseases, except for obesity. He comes seen secondary to fever and chills, cough, starting December 06 first, along with muscle aches, lack of appetite and diarrhea. he was tested for call bid November 08, which required at week of reporting, subsequently was sent to emergency room secondary to worsening symptoms, including dyspnea on exertion, shortness of breath and worsening cough without hemoptysis. Fever, sh ortness of breath lingers, no treatment given to him prior to this admission. The is vaccinated, but the patient is not. He does not believe in vaccines at that time. He comes in the emergency room, with hypoxemia, with very minimal conversational dyspnea, chest x-ray, shows pulmonary infiltrate consistent with Covid pneumonia, oxygen currently is at 6 L nasal cannula, d-dimer was 0.6, LFTs are minimally elevated, 64 AST, lactic acid 2.0 sodium 132, creatinine of 0.9, glucose of 122, LDH of 888, CRP of 5.7. Urine protein noted, without hematuria or proteinuria. Covid was again retested 11/14, PCR is positive. Consult to Dr. Eduardo and pulmonary,, 11/16: Patient is currently on oxygen at 6 L nasal cannula increased to 7 L with humidified oxygen. Patient seen and followed by pulmonary medicine and has been started on Bariticinib, Decadron 6 mg daily, and prophylactic dose of Lovenox. He is reaching 1750 on incentive spirometry. Patient did have episode of diarrhea yesterday, none today and complains of decreased appetite. Patient complains of nasal congestion and Flonase added. 11/17: Patient had difficulty with oxygenation during the night and this morning transitioned to Airfo and partial nonrebreather. Pulse ox is currently running 90-92%, patient is prone. He has been afebrile, heart rate 88, blood pressure 104/63. Repeat d-dimer is elevated at 0.93. Blood sugar 167. C-reactive protein increased to 5.3. AST is 83 and ALT 51. Blood culture remains with no growth after 48 hours. Repeat chest x-ray reveals mild cardiomegaly with bilateral multifocal opacities consistent with Covid 19 infection. No significant change from most recent x-ray. Albuterol inhaler and Symbicort inhaler added. 11/18: Patient is currently on AirVo and nonrebreather with pulse ox of 93%. He's been afebrile, heart rate 85, blood pressure 103/68. Blood culture no growth at 72 hours 2 specimens. Plan to continue proning. Repeat laboratory studies ordered for tomorrow including inflammatory markers. The patient is having difficulty sleeping and melatonin added. Lovenox increased to twice daily dosing. 11/19: Patient remains in isolation. He is on AirVO plus nonrebreather with pulse ox of 93%. He has been afebrile, heart rate 85, blood pressure 122/69. Patient is found sitting in recliner and encouraged to prone when he is able to. Repeat blood work reveals WBC 12, hemoglobin 14.8, platelet count 282. D-dimer is 1.38. Other blood work is pending. Patient is continued on Decadron, vitamin supplements, Lovenox. He is on day #07/20 of Baricitinib. 11/20: Patient has been afebrile, heart rate 71, blood pressure 107/71, pulse ox 88-93% on AirVo plus nonrebreather. Patient seems to be depressed and frustrated with coarse. Noted that he started on Xanax yesterday by pulmonary. We will add and Remeron 7.5 mg at bedtime. Hemoglobin A1c came back at 6.4. Patient is encouraged to use incentive spirometry, increase activity, prone. Discussed CODE STATUS with patient and he wishes to be a full code. 11/21: Patient will pulse ox of 83% as he was on Airvo only and once nonrebreather was placed she went up to 89%. Patient is not eating much. He has been encouraged to take protein supplement, increase activity and prone but patient does not seem motivated. He was started on Remeron last night which will hopefully help with his mood and appetite. He has continued on Lovenox, dexamethasone, Baricitinib #09/19 repeat blood work reveals WBC 14.3. D-dimer increasing to 3.2. Electrolytes normal, creatinine 0.76. LDH is high at 1476, C-reactive protein stable 6.6. 11/22: Patient continues to be on airflow and nonrebreather and with minimal movement, pulse ox drops down to 82%, otherwise patient is maintaining 92-94%. One dose of IV Lasix ordered for today. Temperature max yesterday afternoon was 101.2. Heart rate in the 70s and 80s. Blood pressure 110/59. Urinalysis was negative for infection. Repeat blood work will be ordered for tomorrow. 11/23: Patient Was moved into ICU overnight. He has been on BiPAP through the night and pulse oxing 95% recently on his side, currently sitting on the edge of the bed pulse oxing 90%, with talking he drops to 83%. He is scheduled for PICC line insertion and plan to start TPN today. Patient has been afebrile, heart rate in the 60s, respiratory rate 28. WBC 12.0, hemoglobin 15, platelet count 351. Lymphocytes 11.1. D-dimer 2.46. Sodium 136, otherwise electrolytes are normal. BUN 30 creatinine 0.7. Blood sugar 128. Magnesium 2.5. Phosphorus 5.5. LDH 1691. C-reactive protein 13.4. Total protein 5.6. Blood cultures remain with no growth. Repeat chest x-ray this morning reveals stable diffuse bilateral infiltrates. Patient is on Baricitinib 10/20. Pulmonary has increased frequency of dexamethasone to twice daily and changed to IV6 mg IV twice daily. 11/24: Patient remain in the ICU, still on BiPAP with pulse ox is improving at this point. Continue dexamethasone and Baricitinib 11/20, patient had full meal this morning his TPN will be suspended after today. Patient will remain in the ICU at least for the next 48 hours. 11/25: Remain in the ICU still on BiPAP but his pulse ox is slightly bit better he still on dexamethasone and Baricitinib 12/20 seems to do slightly but better was agreed by intensive care studies TPN, patient oral intake is slightly but better and had slight improvement compared to yesterday. Surprisingly his marker went up slightly bit specially his LDH up to 2086 with C-reactive protein 3.6 kidney function remained good white blood cell climb up to 15.1 specially been on steroid. Chest x-ray still shows diffuse bilateral interstitial infiltrate and patchy opacification persistent but there is a slight improvement in the variation in the left lower lobe compared to few days earlier. 11/26: Patient remain on BiPAP with 100% oxygen to keep his pulse ox around 92 percentile, his d-dimer continue to be quite bit elevated today is having Doppler of the lower extremity but notes CT at this point. Remain on Symbicort, and albuterol HFA, his white blood cell is down 17,000, blood sugars better control. Chest x-ray still showed patchy infiltrate throughout both lung felix persistent didn't change. Patient had mild anxiety with no pain currently. 11/27: Patient remains in the intensive care unit. He is placed on airflow for eating and pulse ox drops to the 7083 percent range. Pulse ox 90-93% on100% BiPAP. He is afebrile, heart rate in the 70s, respiratory rate 27 and 32, blood pressure 102/71. WBC 21.5, lymphocytes 0.6. D-dimer 7.29. Blood sugars running between 111 and 171. Ferritin level [id number]. ALT 54, alkaline phosphatase 152. CK 27, C-reactive protein 2.9. Repeat chest x-ray reveals borderline cardiomegaly with prominent pulmonary vascular markings. Diffuse increased lung markings are present. Correlate for heart failure. Atypical pneumonia should be considered. Lower extremity ultrasound negative for DVT bilaterally. 11/28: Patient remains in the intensive care unit and found sitting in a chair at the bedside. He is continued on BiPAP and switched over to Arava and nonrebreather for meals. Repeat chest x-ray essentially unchanged. Repeat blood work reveals WBC 20.4, hemoglobin 14.8, platelet count 130. Sodium 134, potassium 4.8, creatinine 0.62. LDH 2934. C-reactive protein 3.3, d-dimer 10.2. CT angiogram of the chest has been ordered by pulmonary medicine which revealed slightly suboptimal study without evidence of acute pulmonary embolism. Mild cardiomegaly with bilateral cities and multifocal organizing consolidations consistent with Covid19 infection. Lovenox has been changed to 40 mg daily and dexamethasone changed to Solu-Medrol 60 mg every 6 hours. Taco michelle has completed course of Baricitinib. 11/29: Patient remains in the intensive care unit, patient is utilizing BiPAP and also Airvo with nonrebreather mask added at times as he tolerates. His ox ygenation seems to be improving at 89-93%. Respiratory rate 24, heart rate 88, blood pressure 107/58. Patient does verbalize that he is feeling somewhat better today. WBC 16.4, hemoglobin 15.1, platelet count 120. D-dimer 13.49, C- reactive protein 2, LDH 2086, CK 47. Repeat chest x-ray reveals correlate for pneumonia, edema or pulmonary hemorrhage, there is cardiomegaly. Patient is currently continued on Lovenox, Solu-Medrol, bronchodilators and vitamin supplements. 11/30: Patient remains in intensive care unit, he sitting in a chair at the bedside. He is feeling a little bit better and breath sounds are sounding a little better from yesterday. He is currently on AirVO. Pulse ox is running 84-87%, he has been afebrile, heart rate in the 80s and 90s, respiratory rate in the 20s, blood pressure 110/67. Repeat blood work reveals WBC 19.4, platelet count 126. D-dimer 10.2, LDH 2157, CK 78, C-reactive protein 1.5. Sodium 135, BUN 44 creatinine 0.73. Patient is continued on Lovenox, IV Solu-Medrol, bronchodilators and supplements. 12/01: Patient remains in ICU, he is currently sitting in chair at the bedside. Patient continues to state that he feels a bit better breath sounds are sounding better compared to yesterday. He is currently on airflow. His pulse ox is running 87-89%, he is still short of breath with conversation. Patient has been afebrile, heart rate 72, respirations 28, blood pressure 109/61. WBC 16.0, hemoglobin 15.1, platelets 112, potassium 4.6, BUN 39, creatinine 0.84. Patient is continued on Lovenox, IV Solu-Medrol, bronchodilators and supplements. 12/02: Patient remains in ICU, he is currently sitting up in a chair at the bedside. Patient continues to have shortness of breath with activity and conversation. His chest x-ray unchanged to prior studies. D-dimer 5.96. Incentive spirometer is at the bedside however encouragement to utilize if needed. Patient has been afebrile, heart rate 85, respirations 28, blood pressure 138/86 pulse ox is 85-89% on Airvo. 12/03, patient remains ICU, he seems to be gradually improving, intending around for the better, has improvement on shortness of breath with conversation, nothing supple she did today for dyspnea, however with movement, he does have shortness of breath while in bed turning around. Patient has an airflow at 65 L, pulse ox 90%. No new fevers, no melena and hematochezia, nutrition is appropriate, and is getting better. 12/04: Patient remains in the intensive care unit. He is onAirVo with nonrebreather mask on standby. He did have a rise in his heart rate up to the 140s, atrial fibrillation with RVR and pulmonary has started the patient on amiodarone drip. He has been afebrile, respiratory rate 28, pulse ox 94-97%. WBC 18.7, hemoglobin 15.5, platelet count 131. Sodium 134, potassium 4.5, chloride 99, CO2 31, BUN 32 and creatinine 0.72. Blood sugars are running between 144 and 193. AST 71, ALT 283, alkaline phosphatase 82. LDH 1946, C- reactive protein 0.6. D-dimer 4.21. Repeat chest x-ray reveals worsening bilateral diffuse interstitial and patchy airspace disease. 12/05: Patient has been taken out of isolation by infection control. He is now on AirVo, FiO2 at 75%. He does have nonrebreather mask on standby but oxygen needs seem to be improving slightly. He seems to be slightly less short of breath. Nephrology has switched him to oral prednisone and off Solu-Medrol. Patient is on eliquis for atrial fibrillation. Heart rate is currently cont rolled and he has been afebrile. Amiodarone has been discontinued, echocardiogram ordered. Pulse ox is 88%, afebrile, blood pressure 111/72 and heart rate in the 80s. threat monitoring analyst sinus rhythm. Repeat blood work reveals WBC 20.4, hemoglobin 15.2, platelet count 109. Sodium 135, potassium 4.9, chloride 100, CO2 33, BUN 46 and creatinine 0.84. Blood sugars are running between 133 and 231. LDH 1616. 12/06: Patient had difficult is sleeping last night despite use of Remeron and having back pain issues. Tramadol at bedtime ordered. Patient remains in the intensive care unit, he has been moved out of isolation. He continues to be on airflow with pulse ox in the 80s. Blood pressure is soft this morning 85/53 and 92/67 for which fluid bolus of 500 ML's ordered. He's been afebrile, heart rate in the 80s. threat monitoring analyst sinus rhythm. Metoprolol was increased to 25 mg twice daily. Echocardiogram reveals EF of 50-55%. 12/07: She remains in intensive care unit but is doing poorly this morning. He had a large bright red and mostly dark stool last evening and a repeat this morning. Eliquis has been placed on hold, he is very quite vasopressors and started on levo. He is on Protonix 40 mg IV push twice daily. He is scheduled to receive 2 units of packed RBCs for drop in his hemoglobin to 9.4. He is currently receiving 2 L IV fluid bolus. Stool for occult blood was positive. Consult was added for Dr. Ojeda. He is currently on BiPAP at 100% with pulse ox of 100%, heart rate 104, respiratory rate 27, blood pressure 88/51. Other blood work today reveals WBC of 22.6, platelet count of 94. Creatinine 0.82 with BUN of 64. Blood sugars 173. Lactic acid 2.9. INR is 1.5, PTT 25.5, AST 69, ALT 200, LDH 1474. Alkaline phosphatase 57 urinalysis negative for infection. Patient had a previous colonoscopy with Dr. Reyes that was normal. 12/08: Yesterday, patient required intubation was placed on mechanical ventilation after becoming more hypotensive started on vasopressin and norepinephrine and status post 7 L of IV fluid. He is status post transfusion of a total of 4 units of packed RBCs and hemoglobin is currently at 7.8. He has had no further episodes of GI bleeding. Consult with nephrology has been added, potassium came back at 6.5 CAT scan of the abdomen and chest revealed pulmonary edema which is slightly improved. Evidence of new posterior pneumomediastinum, air around the lower thoracic esophagus. Decreased excretion of delayed images small amount of abdominal ascites. No bowel obstruction. Chest x-ray reveals low lung volume with bilateral multifocal and confluent opacities consistent with COVID-19. Patient was seen yesterday by general surgery and patient was tentatively scheduled for EGD and colonoscopy on 12/10: She remains intubated and on mechanical ventilation with tidal volume 375, FiO2 60, PEEP of 14. Patient went into A. fib with RVR uncontrolled status post bolus of amiodarone and fluid bolus, shock 3 without conversion and is currently at 140 bpm. He remains on norepinephrine and vasopressin but on lower doses. He is also on Nimbex and propofol. Patient is not on anticoagulation at this point due to GI bleed. Patient has been afebrile, respiratory rate 38, but pressure 86/51, pulse ox 97%. Repeat blood work reveals WBC 21.2, hemoglobin 8.5, platelet count 45. BUN 74 creatinine 2.42. Blood sugars running in the 200s and Levemir 10 units twice daily added along with scale. Magnesium 1.7. AST 2912, ALT 5134. Chest x-ray reveals low lung volumes with bilateral mul tifocal and confluent opacities consistent with Covid 19. 12/10: She remains intubated and on mechanical ventilation with tidal volume 375, FiO2 60, PEEP of 12. Heart rate is anywhere from 115 to 130 in a fib. Patient was off vasopressor and Levophed for blood pressure dropped this morning is back on levo fed. He has had good urine output. He is also on Nimbex, propofol and fentanyl drips. He has had no further bloody tarry stools., WBC 27.1, platelet count 232. BUN 86 and creatinine 2.91. Patient is on tube feedings. EGD and colonoscopy are on hold until patient is medically stable. Patient's is at bedside and all questions have been answered. 12/11: Patient remains intubated and on mechanical ventilation with tidal volume 375, FiO2 60, peep 12. One dose of IV Lasix 40 this am. Continues in afib rvr. Patient is to be weaned off pressors today. Medication changes have been made. He is on to prevent, Nimbex and continues on amiodarone drip. Plan is for sedation holiday if patient does well. He has had good urine output. His had no bowel movement since the GI bleed. Tube feedings are to start. He has been afebrile, heart rate is running up to the 130s, blood pressure 104/63, pulse ox 94%. Blood sugars are well controlled with current regime. Leukocytosis is slowly improving at 23.4, hemoglobin today is 8.6, platelet count 27. BUN 93 and creatinine 2.78, potassium 4.4. Inflammatory markers: Ferritin 17,090, LDH 4086, CK 591, C-reactive protein 5.1, d-dimer 2.34. Repeat chest x-ray report is unchanged. 12/12: Patient remains in intensive care unit intubated on mechanical ventilation with tidal volume 375, FiO2 60 and PEEP of 12. Patient has converted to a sinus rhythm and appears to be quite comfortable on ventilator. He is currently on propofol, fentanyl. Patient has been started on tube feedings and is tolerating. No bloody stools. Repeat chest x-ray reveals diffuse infiltrate appears stable. Multiple lines. WBC 19.3, hemoglobin 8, platelet count 22. D- dimer 2.64. BUN 99 creatinine 2.44. Blood sugars are running 130s 140s. Ferr itin 12,375, total bilirubin 1.5, AST 273, ALT 1906, alkaline phosphatase 128, LDH 3869, CK 334, C-reactive protein 4.8. Patient is status post transfusion of 1 unit of platelets. He has been continued on dexamethasone 4 mg IV daily, IV antibiotics in form of vancomycin, Zosyn was discontinued. Patient's is at the bedside all questions have been answered. REVIEW OF SYSTEMS Unable to obtain as patient is intubated and on mechanical ventilation PHYSICAL EXAMINATION Gen: This is a 60-year-old obese male in the ICU intubated and on mechanical ventilation and appears to be comfortable. HEENT: Head is atraumatic, normocephalic. Pupils equal, round. Sclerae is anicteric, conjunctiva edema. Oral ET and gastric tubes in place. NECK: Supple. No JVD. No lymphadenopathy. No thyromegaly. LUNGS: Diminished with crackles in the bilateral bases. HEART: Regular rate and rhythm. No murmur. threat monitoring analyst sinus rhythm. ABDOMEN: obese. Soft. Bowel sounds are present. No masses. No tenderness. Mackenzie catheter draining clear frederick urine. EXTREMITIES: His bilateral pedal edema. No calf tenderness. NEUROLOGICAL: Patient is sedated. ASSESSMENT AND PLAN 1. Acute respiratory failure: Secondary to COVID-19 requiring intubation and mechanical ventilation, with possible secondary bacterial pneumonia, pulmonary medicine, continue Ventolin inhaler, dexamethasone 4 mg IV daily, vancomycin, vitamin supplements. Patient is off Lovenox/eliquis due to GI bleed. 2. Sepsis (POA) secondary to COVID-19 pneumonia, with acute hypoxemic respiratory failure, diagnosis was of 11/08/2020. 3. Moderate protein calorie malnutrition secondary to poor oral intake. Oral gastric feedings. 4. New-onset atrial fibrillation with RVR, paroxysmal atrial fibrillation. Amiodarone drip status post boluses. Eliquis placed on hold. Echocardiogram as above. 5. Thrombocytopenia secondary to sepsis. No anticoagulation due to thrombocytopenia, GI bleed. Transfusion of 1 unit of platelets. 6. Acute GI bleed. Eliquis placed on hold, 4 units packed RBCs, IV fluid boluses, consult with Dr. Ojeda appreciated. EGD and colonoscopy once patient is stabilized. 7. Acute hypovolemic shock or septic shock requiring vasopressors, massive IV fluid resuscitation. Vasopressors to be weaned off today. 8. Acute kidney injury with ATN secondary to septic shock. Consult with nephrology appreciated 9. Metabolic acidosis secondary to acute kidney injury. 10. Severe hyperkalemia secondary to acute kidney injury. Followed by nephrology. 11. Shock liver secondary to hypotension. Monitor liver function test. 12. DVT prophylaxis. 13. GI prophylaxis. Protonic. 14. BPH. Mackenzie catheter 15. Proteinuria, unknown cause. 16. Dymetabolic syndrome, monitor for hyperglycemia, A1c 6.4. NovoLog scale every 4 hours, added Levemir 12 units twice daily. 17. Back pain. CODE Status: Full code Prognosis: guarded. Impression and plan of care have been directed as dictated by the signing physician. Sanam Valentine nurse practitioner acting as scribe for signing physician. Objective - Vital Signs Vital signs: Vital Signs Temp 98.6 F 12/12/20 10:50 Pulse 75 12/12/20 11:00 Resp 38 H 12/12/20 11:00 BP 138/53 12/12/20 10:50 Pulse Ox 90 L 12/12/20 11:00 Intake & Output 12/11/20 12/12/20 12/12/20 18:59 06:59 18:59 Intake Total 2118.009 1043.368 902.621 Output Total 2546 1505 575 Balance -427.991 -461.632 327.621 Weight 136.9 kg Intake: IV 1339.7 292.7 190 Amiodarone 450 mg In 183.7 16.7 Dextrose 5% in Water 250 ml @ 0.5 MG/MIN 16.667 mls/hr IV .Q15H [facility] Rx#: [id number] Normal Saline Pressure 36 36 15 Bag @ 3mL/hr Piperacillin-Tazobactam 3 200 75 .375 gm In Sodium Chloride 0.9% 100 ml @ 25 mls/hr IVPB Q8HR [facility] Rx# :[id number] Sodium Chloride 0.9% 1, 420 240 100 000 ml @ 20 mls/hr IV . Q24H [facility] Rx#:[id number] Vancomycin 2,000 mg In 500 Sodium Chloride 0.9% 500 ml 500 ml @ 167 mls/hr IVPB Q12H [facility] Rx#: [id number] Intake, IV Titration 688.309 350.668 472.621 Amount Amiodarone 450 mg In 250 242.505 Dextrose 5% in Water 250 ml @ 0.5 MG/MIN 16.667 mls/hr IV .Q15H [facility] Rx#: [id number] Cisatracurium 200 mg In 82.665 60.159 149.640 Sodium Chloride 0.9% 180 ml @ 1 MCG/KG/MIN 6.492 mls/hr IV .Q24H [facility] Rx#: [id number] Norepinephrine 32 mg In 75.383 Sodium Chloride 0.9% 218 ml @ 0.75 MCG/KG/MIN 38. 039 mls/hr IV .Q6H35M [facility] Rx#:[id number] fentaNYL (PF). 1,000 mcg 5.729 In Sodium Chloride 0.9% 80 ml @ 0.25 MCG/KG/HR 3. 37 mls/hr IV .Q24H [facility] Rx #:[id number] propofoL 1,000 mg In 280.261 290.509 74.747 Empty Bag 1 bag @ Titrate IV .Q0M [facility] Rx#: [id number] Tube Feeding 60 310 210 Blood Product 0 Platelet Pheresis Pas 0 Psoralen Unit [id number] Other 30 90 30 Output: Gastric Drainage 300 Urine 2246 1505 575 Other: Voiding Method Indwelling Catheter Indwelling Catheter Indwelling Catheter ABP, PAP, CO, CI - Last Documented Arterial Blood Pressure 119/52 - Labs CBC & Chem 7: 12/12/20 03:35 12/12/20 03:35 Labs: Abnormal Lab Results - Last 24 Hours (Table) 12/11/20 12/11/20 12/11/20 Range/Units 03:50 12:10 15:36 WBC (3.8-10.6) k/uL RBC (4.30-5.90) m/uL Hgb (13.0-17.5) gm/dL Hct (39.0-53.0) % RDW (11.5-15.5) % Plt Count (150-450) k/uL Neutrophils # (Manual) (1.3-7.7) k/uL Metamyelocytes # (Man) (0) k/uL Myelocytes # (Manual) (0) k/uL Nucleated RBCs (0-0) /100 WBC D-Dimer (<0.60) mg/L FEU ABG pH (7.35-7.45) ABG pCO2 (35-45) mmHg ABG pO2 (83-108) mmHg ABG HCO3 (21-25) mmol/L ABG Total CO2 (19-24) mmol/L ABG O2 Saturation (94-97) % Chloride (98-107) mmol/L BUN (9-20) mg/dL Creatinine (0.66-1.25) mg/dL Glucose (74-99) mg/dL POC Glucose (mg/dL) 117 H 121 H (75-99) mg/dL Calcium (8.4-10.2) mg/dL Ferritin 04460.0 H (22.0-322.0) ng/mL Total Bilirubin (0.2-1.3) mg/dL AST (17-59) U/L ALT (4-49) U/L Alkaline Phosphatase (38-126) U/L Lactate Dehydrogenase (313-618) U/L Creatine Kinase (55-170) U/L C-Reactive Protein (<1.0) mg/dL Total Protein (6.3-8.2) g/dL Albumin (3.5-5.0) g/dL 12/11/20 12/11/20 12/12/20 Range/Units 20:13 23:45 03:35 WBC 19.3 H (3.8-10.6) k/uL RBC 2.59 L (4.30-5.90) m/uL Hgb 8.0 L (13.0-17.5) gm/dL Hct 23.5 L (39.0-53.0) % RDW 16.7 H (11.5-15.5) % Plt Count 22 L (150-450) k/uL Neutrophils # (Manual) 16.50 H (1.3-7.7) k/uL Metamyelocytes # (Man) 0.97 H (0) k/uL Myelocytes # (Manual) 0.39 H (0) k/uL Nucleated RBCs 11 H (0-0) /100 WBC D-Dimer (<0.60) mg/L FEU ABG pH (7.35-7.45) ABG pCO2 (35-45) mmHg ABG pO2 (83-108) mmHg ABG HCO3 (21-25) mmol/L ABG Total CO2 (19-24) mmol/L ABG O2 Saturation (94-97) % Chloride (98-107) mmol/L BUN (9-20) mg/dL Creatinine (0.66-1.25) mg/dL Glucose (74-99) mg/dL POC Glucose (mg/dL) 136 H 135 H (75-99) mg/dL Calcium (8.4-10.2) mg/dL Ferritin (22.0-322.0) ng/mL Total Bilirubin (0.2-1.3) mg/dL AST (17-59) U/L ALT (4-49) U/L Alkaline Phosphatase (38-126) U/L Lactate Dehydrogenase (313-618) U/L Creatine Kinase (55-170) U/L C-Reactive Protein (<1.0) mg/dL Total Protein (6.3-8.2) g/dL Albumin (3.5-5.0) g/dL 12/12/20 12/12/20 12/12/20 Range/Units 03:35 03:35 04:48 WBC (3.8-10.6) k/uL RBC (4.30-5.90) m/uL Hgb (13.0-17.5) gm/dL Hct (39.0-53.0) % RDW (11.5-15.5) % Plt Count (150-450) k/uL Neutrophils # (Manual) (1.3-7.7) k/uL Metamyelocytes # (Man) (0) k/uL Myelocytes # (Manual) (0) k/uL Nucleated RBCs (0-0) /100 WBC D-Dimer 2.64 H (<0.60) mg/L FEU ABG pH 7.31 L (7.35-7.45) ABG pCO2 55 H (35-45) mmHg ABG pO2 70 L (83-108) mmHg ABG HCO3 28 H (21-25) mmol/L ABG Total CO2 30 H (19-24) mmol/L ABG O2 Saturation 93.9 L (94-97) % Chloride 113 H (98-107) mmol/L BUN 99 H (9-20) mg/dL Creatinine 2.55 H (0.66-1.25) mg/dL Glucose 136 H (74-99) mg/dL POC Glucose (mg/dL) (75-99) mg/dL Calcium 7.1 L (8.4-10.2) mg/dL Ferritin (22.0-322.0) ng/mL Total Bilirubin 1.5 H (0.2-1.3) mg/dL AST 273 H (17-59) U/L ALT 1906 H (4-49) U/L Alkaline Phosphatase 128 H (38-126) U/L Lactate Dehydrogenase 3869 H (313-618) U/L Creatine Kinase 334 H (55-170) U/L C-Reactive Protein 4.8 H (<1.0) mg/dL Total Protein 3.8 L (6.3-8.2) g/dL Albumin 2.0 L (3.5-5.0) g/dL 12/12/20 Range/Units 08:26 WBC (3.8-10.6) k/uL RBC (4.30-5.90) m/uL Hgb (13.0-17.5) gm/dL Hct (39.0-53.0) % RDW (11.5-15.5) % Plt Count (150-450) k/uL Neutrophils # (Manual) (1.3-7.7) k/uL Metamyelocytes # (Man) (0) k/uL Myelocytes # (Manual) (0) k/uL Nucleated RBCs (0-0) /100 WBC D-Dimer (<0.60) mg/L FEU ABG pH (7.35-7.45) ABG pCO2 (35-45) mmHg ABG pO2 (83-108) mmHg ABG HCO3 (21-25) mmol/L ABG Total CO2 (19-24) mmol/L ABG O2 Saturation (94-97) % Chloride (98-107) mmol/L BUN (9-20) mg/dL Creatinine (0.66-1.25) mg/dL Glucose (74-99) mg/dL POC Glucose (mg/dL) 149 H (75-99) mg/dL Calcium (8.4-10.2) mg/dL Ferritin (22.0-322.0) ng/mL Total Bilirubin (0.2-1.3) mg/dL AST (17-59) U/L ALT (4-49) U/L Alkaline Phosphatase (38-126) U/L Lactate Dehydrogenase (313-618) U/L Creatine Kinase (55-170) U/L C-Reactive Protein (<1.0) mg/dL Total Protein (6.3-8.2) g/dL Albumin (3.5-5.0) g/dL Microbiology - Last 24 Hours (Table) 12/07/20 10:06 Blood Culture - Preliminary Blood No Growth after 96 hours 12/09/20 06:20 Catheter Tip Culture - Final Picc Line
--- NOTE | 2020-12-12 14:04 | PN ---
PROGRESS NOTE Patient is seen for followup for acute kidney injury. Renal function has been slowly improving. Patient has been receiving daily IV Lasix 40 mg. He has had good urine output. The patient currently remains on the vent. He is sedated. He is getting platelet infusion for a platelet count of 22,000. No active bleeding noted after the bleeding per rectum on 12/08/2020. PHYSICAL EXAMINATION: On examination today, patient remains on the vent. He is sedated. Blood pressure 119/52, heart rate 75 per minute. Examination of lower extremities shows edema 1+ bilaterally. Abdomen is soft, obese, nontender. AUTO DESIGN CHECKER exam cannot be assessed. LAB: Show sodium 142, potassium 4.1, chloride 113, CO2 is 25, BUN 99, creatinine 2.5, hemoglobin 8.0 g/dL. ASSESSMENT: 1. Acute kidney injury, acute tubular necrosis currently slowly improving. 2. Volume overload. We will continue with daily IV Lasix dose. 3. Acute hypoxic respiratory failure secondary to COVID pneumonia. 4. Metabolic acidosis currently resolved. 5. Shock liver. Liver enzymes are improving. 6. Atrial fibrillation with RVR. Patient remains on IV amiodarone. PLAN: Diurese patient. We will maintain daily IV Lasix. MMODL / IJN: [id number] /
--- NOTE | 2020-12-12 15:11 | P.PN ---
Subjective Progress Note Date: 12/12/20 CHIEF COMPLAINT: COVID-19 pneumonia HISTORY OF PRESENT ILLNESS: Surgical service following due to GI bleed. Patient remains in the ICU intubated and on mechanical ventilation. Patient is currently off the norepinephrine. He is currently on propofol and fentanyl. FiO2 60 and PEEP 12 no bloody stools reported. And last bowel movement was on Thursday. Afebrile. WBC is 19.3 hemoglobin 8.0 platelets 22 patient is scheduled for platelet transfusion PHYSICAL EXAM: VITAL SIGNS: Reviewed. GENERAL: Well-developed in no acute distress. HEENT: No sclera icterus. Extraocular movements grossly intact. Moist buccal mucosa. Head is atraumatic, normocephalic. ABDOMEN: Soft. Nondistended. Nontender. NEUROLOGIC: Patient is intubated and sedated ASSESSMENT: 1. Acute GI bleed 2. Acute blood loss anemia requiring blood transfusion during this admission PLAN: -Patient is unstable. We'll plan for endoscopy when medically stable -Patient scheduled to receive 1 unit of platelets for thrombocytopenia -Continue ICU management -Continue supportive care -Continue to monitor hemoglobin -Continue to monitor for any signs or symptoms of bleeding -Continue to hold anticoagulation -Continue PPI Physician Mva Operator note has been reviewed by physician. Signing provider agrees with the documented findings, assessment, and plan of care. Objective - Vital Signs Vital signs: Vital Signs Temp 98.2 F 12/12/20 12:38 Pulse 73 12/12/20 14:00 Resp 38 H 12/12/20 14:00 BP 137/54 12/12/20 12:38 Pulse Ox 91 L 12/12/20 14:00 Intake & Output 12/11/20 12/12/20 12/12/20 18:59 06:59 18:59 Intake Total 2118.009 5282.405 2292.874 Output Total 2546 1505 725 Balance -427.991 -461.632 778.874 Weight 136.9 kg Intake: IV 1339.7 292.7 259 Amiodarone 450 mg In 183.7 16.7 Dextrose 5% in Water 250 ml @ 0.5 MG/MIN 16.667 mls/hr IV .Q15H [facility] Rx#: [id number] Normal Saline Pressure 36 36 24 Bag @ 3mL/hr Piperacillin-Tazobactam 3 200 75 .375 gm In Sodium Chloride 0.9% 100 ml @ 25 mls/hr IVPB Q8HR [facility] Rx# :[id number] Sodium Chloride 0.9% 1, 420 240 160 000 ml @ 20 mls/hr IV . Q24H [facility] Rx#:[id number] Vancomycin 2,000 mg In 500 Sodium Chloride 0.9% 500 ml 500 ml @ 167 mls/hr IVPB Q12H [facility] Rx#: [id number] Intake, IV Titration 688.309 350.668 497.874 Amount Amiodarone 450 mg In 250 242.505 Dextrose 5% in Water 250 ml @ 0.5 MG/MIN 16.667 mls/hr IV .Q15H [facility] Rx#: [id number] Cisatracurium 200 mg In 82.665 60.159 149.640 Sodium Chloride 0.9% 180 ml @ 1 MCG/KG/MIN 6.492 mls/hr IV .Q24H [facility] Rx#: [id number] Norepinephrine 32 mg In 75.383 Sodium Chloride 0.9% 218 ml @ 0.75 MCG/KG/MIN 38. 039 mls/hr IV .Q6H35M [facility] Rx#:[id number] fentaNYL (PF). 1,000 mcg 5.729 In Sodium Chloride 0.9% 80 ml @ 0.25 MCG/KG/HR 3. 37 mls/hr IV .Q24H [facility] Rx #:[id number] propofoL 1,000 mg In 280.261 290.509 100.000 Empty Bag 1 bag @ Titrate IV .Q0M [facility] Rx#: [id number] Tube Feeding 60 310 345 Blood Product 372 Platelet Pheresis Pas 372 Psoralen Unit [id number] Other 30 90 30 Output: Gastric Drainage 300 Urine 2246 1505 725 Other: Voiding Method Indwelling Catheter Indwelling Catheter Indwelling Catheter ABP, PAP, CO, CI - Last Documented Arterial Blood Pressure 129/53 - Labs CBC & Chem 7: 12/12/20 03:35 12/12/20 03:35 Labs: Abnormal Lab Results - Last 24 Hours (Table) 12/11/20 12/11/20 12/11/20 Range/Units 03:50 15:36 20:13 WBC (3.8-10.6) k/uL RBC (4.30-5.90) m/uL Hgb (13.0-17.5) gm/dL Hct (39.0-53.0) % RDW (11.5-15.5) % Plt Count (150-450) k/uL Neutrophils # (Manual) (1.3-7.7) k/uL Metamyelocytes # (Man) (0) k/uL Myelocytes # (Manual) (0) k/uL Nucleated RBCs (0-0) /100 WBC D-Dimer (<0.60) mg/L FEU ABG pH (7.35-7.45) ABG pCO2 (35-45) mmHg ABG pO2 (83-108) mmHg ABG HCO3 (21-25) mmol/L ABG Total CO2 (19-24) mmol/L ABG O2 Saturation (94-97) % Chloride (98-107) mmol/L BUN (9-20) mg/dL Creatinine (0.66-1.25) mg/dL Glucose (74-99) mg/dL POC Glucose (mg/dL) 121 H 136 H (75-99) mg/dL Calcium (8.4-10.2) mg/dL Ferritin 91780.0 H (22.0-322.0) ng/mL Total Bilirubin (0.2-1.3) mg/dL AST (17-59) U/L ALT (4-49) U/L Alkaline Phosphatase (38-126) U/L Lactate Dehydrogenase (313-618) U/L Creatine Kinase (55-170) U/L C-Reactive Protein (<1.0) mg/dL Total Protein (6.3-8.2) g/dL Albumin (3.5-5.0) g/dL 12/11/20 12/12/20 12/12/20 Range/Units 23:45 03:35 03:35 WBC 19.3 H (3.8-10.6) k/uL RBC 2.59 L (4.30-5.90) m/uL Hgb 8.0 L (13.0-17.5) gm/dL Hct 23.5 L (39.0-53.0) % RDW 16.7 H (11.5-15.5) % Plt Count 22 L (150-450) k/uL Neutrophils # (Manual) 16.50 H (1.3-7.7) k/uL Metamyelocytes # (Man) 0.97 H (0) k/uL Myelocytes # (Manual) 0.39 H (0) k/uL Nucleated RBCs 11 H (0-0) /100 WBC D-Dimer 2.64 H (<0.60) mg/L FEU ABG pH (7.35-7.45) ABG pCO2 (35-45) mmHg ABG pO2 (83-108) mmHg ABG HCO3 (21-25) mmol/L ABG Total CO2 (19-24) mmol/L ABG O2 Saturation (94-97) % Chloride (98-107) mmol/L BUN (9-20) mg/dL Creatinine (0.66-1.25) mg/dL Glucose (74-99) mg/dL POC Glucose (mg/dL) 135 H (75-99) mg/dL Calcium (8.4-10.2) mg/dL Ferritin (22.0-322.0) ng/mL Total Bilirubin (0.2-1.3) mg/dL AST (17-59) U/L ALT (4-49) U/L Alkaline Phosphatase (38-126) U/L Lactate Dehydrogenase (313-618) U/L Creatine Kinase (55-170) U/L C-Reactive Protein (<1.0) mg/dL Total Protein (6.3-8.2) g/dL Albumin (3.5-5.0) g/dL 12/12/20 12/12/20 12/12/20 Range/Units 03:35 04:48 08:26 WBC (3.8-10.6) k/uL RBC (4.30-5.90) m/uL Hgb (13.0-17.5) gm/dL Hct (39.0-53.0) % RDW (11.5-15.5) % Plt Count (150-450) k/uL Neutrophils # (Manual) (1.3-7.7) k/uL Metamyelocytes # (Man) (0) k/uL Myelocytes # (Manual) (0) k/uL Nucleated RBCs (0-0) /100 WBC D-Dimer (<0.60) mg/L FEU ABG pH 7.31 L (7.35-7.45) ABG pCO2 55 H (35-45) mmHg ABG pO2 70 L (83-108) mmHg ABG HCO3 28 H (21-25) mmol/L ABG Total CO2 30 H (19-24) mmol/L ABG O2 Saturation 93.9 L (94-97) % Chloride 113 H (98-107) mmol/L BUN 99 H (9-20) mg/dL Creatinine 2.55 H (0.66-1.25) mg/dL Glucose 136 H (74-99) mg/dL POC Glucose (mg/dL) 149 H (75-99) mg/dL Calcium 7.1 L (8.4-10.2) mg/dL Ferritin 59312.0 H (22.0-322.0) ng/mL Total Bilirubin 1.5 H (0.2-1.3) mg/dL AST 273 H (17-59) U/L ALT 1906 H (4-49) U/L Alkaline Phosphatase 128 H (38-126) U/L Lactate Dehydrogenase 3869 H (313-618) U/L Creatine Kinase 334 H (55-170) U/L C-Reactive Protein 4.8 H (<1.0) mg/dL Total Protein 3.8 L (6.3-8.2) g/dL Albumin 2.0 L (3.5-5.0) g/dL 12/12/20 Range/Units 12:10 WBC (3.8-10.6) k/uL RBC (4.30-5.90) m/uL Hgb (13.0-17.5) gm/dL Hct (39.0-53.0) % RDW (11.5-15.5) % Plt Count (150-450) k/uL Neutrophils # (Manual) (1.3-7.7) k/uL Metamyelocytes # (Man) (0) k/uL Myelocytes # (Manual) (0) k/uL Nucleated RBCs (0-0) /100 WBC D-Dimer (<0.60) mg/L FEU ABG pH (7.35-7.45) ABG pCO2 (35-45) mmHg ABG pO2 (83-108) mmHg ABG HCO3 (21-25) mmol/L ABG Total CO2 (19-24) mmol/L ABG O2 Saturation (94-97) % Chloride (98-107) mmol/L BUN (9-20) mg/dL Creatinine (0.66-1.25) mg/dL Glucose (74-99) mg/dL POC Glucose (mg/dL) 141 H (75-99) mg/dL Calcium (8.4-10.2) mg/dL Ferritin (22.0-322.0) ng/mL Total Bilirubin (0.2-1.3) mg/dL AST (17-59) U/L ALT (4-49) U/L Alkaline Phosphatase (38-126) U/L Lactate Dehydrogenase (313-618) U/L Creatine Kinase (55-170) U/L C-Reactive Protein (<1.0) mg/dL Total Protein (6.3-8.2) g/dL Albumin (3.5-5.0) g/dL Microbiology - Last 24 Hours (Table) 12/07/20 10:06 Blood Culture - Preliminary Blood No Growth after 120 hours 12/09/20 06:20 Catheter Tip Culture - Final Picc Line
[2020-12-12 16:00] LABS: Glucose,Whole Blood 171 mg/dL (75-99)
[2020-12-12 20:18] LABS: Glucose,Whole Blood 165 mg/dL (75-99)
[2020-12-13 00:38] LABS: Glucose,Whole Blood 146 mg/dL (75-99)
[2020-12-13] MEDS: INSULIN ASPART (NovoLOG) 100 UNIT/ML VIAL SQ SCH ×6 (00:41→21:24)
[2020-12-13] MEDS: ARTIFICIAL TEARS-HYPROMELLOSE DROPS 15 ML BTL BOTH EYES SCH ×6 (00:41→21:24)
[2020-12-13] MEDS: AMIODARONE 450 MG in DEXTROSE 5% IN WATER 250 ML IV SCH ×4 (00:54→01:01)
[2020-12-13] MEDS: NOREPINEPHRINE 32 MG in SODIUM CHLORIDE 0.9% 218 ML IV SCH ×2 (03:28→07:50)
[2020-12-13] MEDS: SODIUM CHLORIDE 0.9% 1,000 ML IV SCH (03:28)
[2020-12-13 03:33] LABS: Glucose,Whole Blood 131 mg/dL (75-99)
[2020-12-13 04:55] LABS: ABG Base Excess 5.5 mmol/L; ABG HCO3 31 mmol/L (21-25); ABG Oxygen Saturation 94.3 % (94-97); ABG PCO2 52 mmHg (35-45); ABG PH 7.38 (7.35-7.45); ABG PO2 69 mmHg (83-108); ABG TCO2 32 mmol/L (19-24)
[2020-12-13 05:08] LABS: C Reactive Protein 3.4 mg/dL (<1.0); Calcium 7.2 mg/dL (8.4-10.2); Magnesium 2.4 mg/dL (1.6-2.3); Potassium 3.6 mmol/L (3.5-5.1)
[2020-12-13 05:13] LABS: Anisocytosis Slight; HCT 22.1 % (39.0-53.0); HGB 7.4 gm/dL (13.0-17.5); MCH 30.7 pg (25.0-35.0); MCHC 33.5 g/dL (31.0-37.0); MCV 91.5 fL (80.0-100.0); Mean Platelet Volume 10.7; Platelet Count 33 k/uL (150-450); RBC 2.41 m/uL (4.30-5.90); RDW 17.1 % (11.5-15.5)
[2020-12-13 05:26] LABS: Allen Test Performed? no
[2020-12-13 06:40] LABS: Band Neutrophils % 6 %; Metamyelocytes % 1 %; Neutrophils % (M) 82 %; Nucleated Red Blood Cells 26 /100 WBC (0-0); Total Cells Counted 200
[2020-12-13 06:41] LABS: Lymphocytes # (M) 1.71 k/uL (1.0-4.8); Metamyelocytes # (M) 0.17 k/uL (0); Monocytes # (M) 0.34 k/uL (0-1.0); WBC 17.1 k/uL (3.8-10.6)
[2020-12-13] MEDS: INSULIN DETEMIR (LEVEMIR) 100 UNIT/ML SYR SQ SCH ×2 (07:12→21:33)
[2020-12-13] MEDS: ALBUTEROL HFA INHALER INHALATION PRN (07:24)
[2020-12-13] MEDS: CHLORHEXIDINE GLUCONATE 15 ML CUP MUCOUS MEM SCH ×2 (07:57→21:32)
[2020-12-13] MEDS: ASCORBIC ACID 500 MG TAB PO SCH ×2 (07:57→21:24)
[2020-12-13] MEDS: CHOLECALCIFEROL 25 MCG (1000 IU) TABLET PO SCH (07:57)
[2020-12-13] MEDS: FUROSEMIDE 10 MG/ML 4 ML VIAL IV SCH (07:58)
[2020-12-13] MEDS: ZINC SULFATE 220 MG CAP PO SCH (07:58)
[2020-12-13] MEDS: PANTOPRAZOLE 40 MG/10 ML VIAL IVP SCH ×2 (07:58→21:24)
[2020-12-13] MEDS: DEXAMETHASONE SOD PHOSPHATE 4 MG/ML 1 ML VIAL IV SCH (08:01)
--- NOTE | 2020-12-13 08:09 | XR ---
EXAMINATION TYPE: XR chest 1V portable DATE OF EXAM: 12/13/2020 Comparison: 12/12/2020 Clinical History: 60-year-old male Tube placement Findings: ET tube tip 2.6 cm from the kamilah. Consider pulling back 1 cm and reassessing at follow-up. NG tube courses below the diaphragm. Heart upper limits of normal in size. Diffuse bilateral interstitial and patchy airspace opacity shows relatively stable appearance. Right subclavian CVC tip lower SVC. IMPRESSION: 1. Continued diffuse bilateral interstitial and patchy airspace disease. 2. ET tube tip 2.6 cm from the kamilah. Consider pulling back 1 cm and reassessing at follow-up.
[2020-12-13 08:43] LABS: Glucose,Whole Blood 119 mg/dL (75-99)
--- NOTE | 2020-12-13 10:52 | P.PN ---
Subjective Progress Note Date: 12/13/20 CHIEF COMPLAINT: COVID-19 pneumonia HISTORY OF PRESENT ILLNESS: Surgical service following due to GI bleed. Patient remains in the ICU intubated and on mechanical ventilation. He is currently on propofol and fentanyl. He is scheduled for a sedation holiday today. No active signs of bleeding. Afebrile. WBC 17.1 hemoglobin has trended down from 8-7.4. Platelets are up from 22-33 after 1 unit of platelets PHYSICAL EXAM: VITAL SIGNS: Reviewed. GENERAL: Well-developed in no acute distress. HEENT: No sclera icterus. Extraocular movements grossly intact. Moist buccal mucosa. Head is atraumatic, normocephalic. ABDOMEN: Soft. Nondistended. Nontender. NEUROLOGIC: Patient is intubated and sedated ASSESSMENT: 1. Acute GI bleed 2. Acute blood loss anemia requiring blood transfusion during this admission PLAN: -Plan for endoscopy when medically stable -Continue ICU management -Continue supportive care -Continue to monitor hemoglobin -Continue to monitor for any signs or symptoms of bleeding -Continue to hold anticoagulation -Continue PPI Physician Rim Turning Finisher note has been reviewed by physician. Signing provider agrees with the documented findings, assessment, and plan of care. Objective - Vital Signs Vital signs: Vital Signs Temp 98.6 F 12/13/20 08:00 Pulse 84 12/13/20 10:00 Resp 38 H 12/13/20 10:00 BP 118/67 12/13/20 02:00 Pulse Ox 91 L 12/13/20 10:00 Intake & Output 12/12/20 12/13/20 12/13/20 18:59 06:59 18:59 Intake Total 0787.700 4124.512 100 Output Total 1600 1755 Balance 373.874 -351.488 100 Weight 134.2 kg Intake: IV 374 276 Normal Saline Pressure 39 36 Bag @ 3mL/hr Piperacillin-Tazobactam 3 75 .375 gm In Sodium Chloride 0.9% 100 ml @ 25 mls/hr IVPB Q8HR [facility] Rx# :[id number] Sodium Chloride 0.9% 1, 260 240 000 ml @ 20 mls/hr IV . Q24H [facility] Rx#:[id number] Intake, IV Titration 597.874 527.512 100 Amount Amiodarone 450 mg In 242.505 250 Dextrose 5% in Water 250 ml @ 0.5 MG/MIN 16.667 mls/hr IV .Q15H [facility] Rx#: [id number] Cisatracurium 200 mg In 149.640 Sodium Chloride 0.9% 180 ml @ 1 MCG/KG/MIN 6.492 mls/hr IV .Q24H [facility] Rx#: [id number] fentaNYL (PF). 1,000 mcg 5.729 85.036 In Sodium Chloride 0.9% 80 ml @ 0.25 MCG/KG/HR 3. 37 mls/hr IV .Q24H [facility] Rx #:[id number] propofoL 1,000 mg In 200.000 192.476 100 Empty Bag 1 bag @ Titrate IV .Q0M [facility] Rx#: [id number] Tube Feeding 570 540 Blood Product 372 Platelet Pheresis Pas 372 Psoralen Unit [id number] Other 60 60 Output: Urine 1600 1755 Other: Voiding Method Indwelling Catheter Indwelling Catheter ABP, PAP, CO, CI - Last Documented Arterial Blood Pressure 148/55 - Labs CBC & Chem 7: 12/13/20 04:40 12/13/20 04:40 Labs: Abnormal Lab Results - Last 24 Hours (Table) 12/12/20 12/12/20 12/12/20 Range/Units 03:35 12:10 15:58 WBC (3.8-10.6) k/uL RBC (4.30-5.90) m/uL Hgb (13.0-17.5) gm/dL Hct (39.0-53.0) % RDW (11.5-15.5) % Plt Count (150-450) k/uL Neutrophils # (Manual) (1.3-7.7) k/uL Metamyelocytes # (Man) (0) k/uL Nucleated RBCs (0-0) /100 WBC D-Dimer (<0.60) mg/L FEU ABG pCO2 (35-45) mmHg ABG pO2 (83-108) mmHg ABG HCO3 (21-25) mmol/L ABG Total CO2 (19-24) mmol/L Chloride (98-107) mmol/L BUN (9-20) mg/dL Creatinine (0.66-1.25) mg/dL Glucose (74-99) mg/dL POC Glucose (mg/dL) 141 H 171 H (75-99) mg/dL Calcium (8.4-10.2) mg/dL Magnesium (1.6-2.3) mg/dL Ferritin 38099.0 H (22.0-322.0) ng/mL Lactate Dehydrogenase (313-618) U/L C-Reactive Protein (<1.0) mg/dL 12/12/20 12/13/20 12/13/20 Range/Units 20:17 00:36 03:31 WBC (3.8-10.6) k/uL RBC (4.30-5.90) m/uL Hgb (13.0-17.5) gm/dL Hct (39.0-53.0) % RDW (11.5-15.5) % Plt Count (150-450) k/uL Neutrophils # (Manual) (1.3-7.7) k/uL Metamyelocytes # (Man) (0) k/uL Nucleated RBCs (0-0) /100 WBC D-Dimer (<0.60) mg/L FEU ABG pCO2 (35-45) mmHg ABG pO2 (83-108) mmHg ABG HCO3 (21-25) mmol/L ABG Total CO2 (19-24) mmol/L Chloride (98-107) mmol/L BUN (9-20) mg/dL Creatinine (0.66-1.25) mg/dL Glucose (74-99) mg/dL POC Glucose (mg/dL) 165 H 146 H 131 H (75-99) mg/dL Calcium (8.4-10.2) mg/dL Magnesium (1.6-2.3) mg/dL Ferritin (22.0-322.0) ng/mL Lactate Dehydrogenase (313-618) U/L C-Reactive Protein (<1.0) mg/dL 12/13/20 12/13/20 12/13/20 Range/Units 04:40 04:40 04:40 WBC 17.1 H (3.8-10.6) k/uL RBC 2.41 L (4.30-5.90) m/uL Hgb 7.4 L (13.0-17.5) gm/dL Hct 22.1 L (39.0-53.0) % RDW 17.1 H (11.5-15.5) % Plt Count 33 L (150-450) k/uL Neutrophils # (Manual) 15.00 H (1.3-7.7) k/uL Metamyelocytes # (Man) 0.17 H (0) k/uL Nucleated RBCs 26 H (0-0) /100 WBC D-Dimer 6.38 H (<0.60) mg/L FEU ABG pCO2 (35-45) mmHg ABG pO2 (83-108) mmHg ABG HCO3 (21-25) mmol/L ABG Total CO2 (19-24) mmol/L Chloride 112 H (98-107) mmol/L BUN 102 H* (9-20) mg/dL Creatinine 2.59 H (0.66-1.25) mg/dL Glucose 119 H (74-99) mg/dL POC Glucose (mg/dL) (75-99) mg/dL Calcium 7.2 L (8.4-10.2) mg/dL Magnesium 2.4 H (1.6-2.3) mg/dL Ferritin (22.0-322.0) ng/mL Lactate Dehydrogenase 3681 H (313-618) U/L C-Reactive Protein 3.4 H (<1.0) mg/dL 12/13/20 12/13/20 Range/Units 04:53 08:41 WBC (3.8-10.6) k/uL RBC (4.30-5.90) m/uL Hgb (13.0-17.5) gm/dL Hct (39.0-53.0) % RDW (11.5-15.5) % Plt Count (150-450) k/uL Neutrophils # (Manual) (1.3-7.7) k/uL Metamyelocytes # (Man) (0) k/uL Nucleated RBCs (0-0) /100 WBC D-Dimer (<0.60) mg/L FEU ABG pCO2 52 H (35-45) mmHg ABG pO2 69 L (83-108) mmHg ABG HCO3 31 H (21-25) mmol/L ABG Total CO2 32 H (19-24) mmol/L Chloride (98-107) mmol/L BUN (9-20) mg/dL Creatinine (0.66-1.25) mg/dL Glucose (74-99) mg/dL POC Glucose (mg/dL) 119 H (75-99) mg/dL Calcium (8.4-10.2) mg/dL Magnesium (1.6-2.3) mg/dL Ferritin (22.0-322.0) ng/mL Lactate Dehydrogenase (313-618) U/L C-Reactive Protein (<1.0) mg/dL Microbiology - Last 24 Hours (Table) 12/07/20 10:06 Blood Culture - Preliminary Blood No Growth after 120 hours
--- NOTE | 2020-12-13 12:11 | P.PN ---
Subjective Progress Note Date: 12/13/20 Principal diagnosis: Acute hypoxic respiratory failure secondary to COVID-19 pneumonia. On 12/10/2020 patient seen in follow-up in intensive care unit, he was intubated and placed on mechanical ventilator last Thursday on 12/07/2020. Patient at the time he has developed worsening hypoxic respiratory failure and acute GI blood loss anemia and Hemorrhagic shock requiring transfusion with 4 units of packed red blood cells, K Sentra infusion for reversal of Eliquis, and she was fluid resuscitated with a total of 7 L of fluid. At the same time she was intubated and placed on mechanical ventilator on which he remains today, he is currently on assist control mode of ventilation with a rate of 30, tidal M is 375, FiO2 of 60% and PEEP of 12. This morning's blood gas shows pO2 of 57, pCO2 of 53 a pH of 7.33, and this was on FiO2 of 60%. Patient has been weaned off the vasopressor support, his Levothroid and vasopressin have been off for over 24 hours, he is currently complaining of a rate of 75 ML per hour, amiodarone is at 0.5 mg per hour, and index is at 1 davon per kilo per minute, Diprivan is a 35 mics per kilo per minute. Patient has not had any further bleeding since yesterday. His chest x-ray shows continued bilateral diffuse airspace disease, with worsening at the left base. Patient is still tachycardic with a rate in the 140s BPM and what appears to be in sinus mechanism. Today's labs have been reviewed, showing improving white count which is down to 19.9, hemoglobin is 7.1, platelet count is 28, sodium is 140, potassium is 4.2, chloride is 111, CO2 is 28, BUN is 86, creatinine 2.91, and the patient's renal profile has slightly worsened since yesterday. His AST is improving and is down to 794 from 2912, ALT is 3274, improving, patient has not had a LDH and CRP done in the last 3 or 4 days. Cortisol level was 35 2 days ago, urinalysis without sign of infection, stool for occult blood was positive, his anticoagulation remains on hold. His PICC line has been removed, and catheter tip culture is pending at this time, all his blood and urine cultures have remained negative thus far. Patient remains on multivitamins, she remains on Decadron currently at 4 mg daily, he is on Protonix 40 mg twice daily, he remains on empiric antibiotics in the form of Zosyn and vancomycin. His urine output has been in the order of 45-50 ML per hour. Patient was reevaluated today on 12/11/2020, remains in the ICU, intubated and mechanically ventilated, sedated and paralyzed. Patient is on assist control rate of 38 tidal volume 375 FiO2 60% and PEEP is 12. ABG showed a pO2 of 58 pCO2 of 54 pH of 7.30. Peak airway pressure is 43 plateau pressure is 35. Drips include amiodarone at 0.5, Nimbex at 1, fentanyl at 25 mcg/kg/m, norepinephrine at 0.04 mcg/kg/m, and IV fluid at 50 mL per hour. Chest x-ray continues to show bilateral infiltrates, not much of a change overall. It is consistent with COVID-19 pneumonia. Labs include WBC count of 23.4 hemoglobin 8.6 platelets are low at 27,000, BUN of 93 creatinine 2.78. Inflammatory markers remain high including elevated LDH of 4 above 4000s CPK 591 and C- reactive protein 5.1 transaminases are high with ALT of 2759 and AST of 234 Medications include albuterol, amiodarone, vitamin C, Peridex, vitamin D3, Nimbex, Decadron 4 mg IV push daily, fentanyl, insulin, norepinephrine, Protonix, Zosyn, zinc. Patient is not on any anticoagulation therapy at this point because of his recent massive bleed requiring 5 units of packed RBCs, hemoglobin today is 8.6 Reevaluated today on12/12/2020, patient remains in the ICU, intubated and mechanically ventilated. Patient remains on assist control rate of 38 tidal volume to 75 FiO2 60% PEEP of 12 ABG today showed a pO2 of 70 pCO2 55 pH of 7.31. Patient remains on multiple drips including propofol and fentanyl, presently off Nimbex, may have to increase his propofol to 50 and fentanyl 2015 document per kilo per minute, and we will titrate dose again if the patient tolerates being off Nimbex. He is also on amiodarone drip at 0.5 mg/m. IV flui ds at KVO. He is receiving enteral feedings. He is to receive 1 unit of platelets today because of low platelets. And considering the patient had negative cultures and no specific positive cultures will discontinue antibiotics. Altogether. Chest x-ray continues to show bilateral infiltrates consistent with COVID-19 pneumonia. Medications are relatively unchanged as noted above, patient is not requiring any norepinephrine, and we have decided to discontinue Nimbex this morning. WBC count today is 19.3 hemoglobin is 8 d- dimer is 2.64. Basic metabolic profile is normal BUN is 99 creatinine 2.55, slightly improved liver enzymes remain elevated with AST of 273 ALT of 03/17/2005, LDH is down to 3869. Patient was reevaluated today on 12/13/2020, remains in the ICU, intubated and mechanically ventilated. Patient has been off Nimbex but maintained on propofol and fentanyl, and I'm hoping I could hold sedation narcotics today in order to assess his mental status if possible today. He is on assist control rate of 38 tidal volume 375 FiO2 55% PEEP of 12 ABG showed a pO2 of 69 pCO2 of 52 pH of 7.38. He is on fentanyl at 0.5 mcg/kg/h he is also on propofol at 35 mcg/kg/m. Patient is receiving tube feeding using vital AF at 45 mL per hour. Patient is on amiodarone at 0.5 mg/m, however I will discontinue amiodarone today and switch him to oral amiodarone via orogastric tube. Platelets remain low at 33,000, hence admitted to start the patient back on anticoagulation therapy. Patient remains on compression stockings. And his renal functioning is hovering around 2.59/creatinine. No more bleeding episodes over the last for 5 days. And not requiring any transfusions. He did get 1 unit of platelets yesterday. Asked x-ray continues to show bilateral infiltrates, not much of a change in his WBC count is 17.1 hemoglobin is 7.4. D-dimer is a bit elevated at 6.38. Electr olytes are normal LDH is coming down 3681 today compared to 4006 just couple of days ago C-reactive protein is 3.4. Objective - Vital Signs Vital signs: Vital Signs Temp 98.6 F 12/13/20 08:00 Pulse 81 12/13/20 11:00 Resp 28 H 12/13/20 11:00 BP 118/67 12/13/20 02:00 Pulse Ox 90 L 12/13/20 11:00 Intake & Output 12/12/20 12/13/20 12/13/20 18:59 06:59 18:59 Intake Total 4968.243 6051.512 502 Output Total 1600 1755 850 Balance 373.874 -351.488 -348 Weight 134.2 kg Intake: IV 374 276 92 .9 KVO 40 Normal Saline Pressure 39 36 12 Bag @ 3mL/hr Piperacillin-Tazobactam 3 75 .375 gm In Sodium Chloride 0.9% 100 ml @ 25 mls/hr IVPB Q8HR [facility] Rx# :[id number] Sodium Chloride 0.9% 1, 260 240 40 000 ml @ 20 mls/hr IV . Q24H [facility] Rx#:[id number] Intake, IV Titration 597.874 527.512 100 Amount Amiodarone 450 mg In 242.505 250 Dextrose 5% in Water 250 ml @ 0.5 MG/MIN 16.667 mls/hr IV .Q15H [facility] Rx#: [id number] Cisatracurium 200 mg In 149.640 Sodium Chloride 0.9% 180 ml @ 1 MCG/KG/MIN 6.492 mls/hr IV .Q24H [facility] Rx#: [id number] fentaNYL (PF). 1,000 mcg 5.729 85.036 In Sodium Chloride 0.9% 80 ml @ 0.25 MCG/KG/HR 3. 37 mls/hr IV .Q24H [facility] Rx #:[id number] propofoL 1,000 mg In 200.000 192.476 100 Empty Bag 1 bag @ Titrate IV .Q0M [facility] Rx#: [id number] Oral 100 Tube Feeding 570 540 180 Blood Product 372 Platelet Pheresis Pas 372 Psoralen Unit [id number] Other 60 60 30 Output: Urine 1600 1755 850 Other: Voiding Method Indwelling Catheter Indwelling Catheter Indwelling Catheter ABP, PAP, CO, CI - Last Documented Arterial Blood Pressure 133/51 - Exam Gen: This is a 60-year-old obese male, intubated and mechanically ventilated. Sedated with fentanyl and propofol, remains off Nimbex HEENT: Head is atraumatic, normocephalic. M[place], EOMI, nonicteric, no neck masses, no JVD. Endotracheal tube is intact. Mucous membranes are unremarkable. NECK: Supple. No JVD. No lymphadenopathy. No thyromegaly. LUNGS: Crackles at the bases persist, no rhonchi no wheezes. HEART: Regular rate and rhythm. No murmur. ABDOMEN: obese. Soft. Bowel sounds are present. No masses. No tenderness. EXTREMITIES: Trace of bipedal edema. NEUROLOGICAL: Good Not assess patient is sedated, not paralysis. Psychiatric: Could not assess. Sedated . Skin: No rashes. - Labs CBC & Chem 7: 12/13/20 04:40 12/13/20 04:40 Labs: Abnormal Lab Results - Last 24 Hours (Table) 12/12/20 12/12/20 12/12/20 Range/Units 03:35 12:10 15:58 WBC (3.8-10.6) k/uL RBC (4.30-5.90) m/uL Hgb (13.0-17.5) gm/dL Hct (39.0-53.0) % RDW (11.5-15.5) % Plt Count (150-450) k/uL Neutrophils # (Manual) (1.3-7.7) k/uL Metamyelocytes # (Man) (0) k/uL Nucleated RBCs (0-0) /100 WBC D-Dimer (<0.60) mg/L FEU ABG pCO2 (35-45) mmHg ABG pO2 (83-108) mmHg ABG HCO3 (21-25) mmol/L ABG Total CO2 (19-24) mmol/L Chloride (98-107) mmol/L BUN (9-20) mg/dL Creatinine (0.66-1.25) mg/dL Glucose (74-99) mg/dL POC Glucose (mg/dL) 141 H 171 H (75-99) mg/dL Calcium (8.4-10.2) mg/dL Magnesium (1.6-2.3) mg/dL Ferritin 00685.0 H (22.0-322.0) ng/mL Lactate Dehydrogenase (313-618) U/L C-Reactive Protein (<1.0) mg/dL 12/12/20 12/13/20 12/13/20 Range/Units 20:17 00:36 03:31 WBC (3.8-10.6) k/uL RBC (4.30-5.90) m/uL Hgb (13.0-17.5) gm/dL Hct (39.0-53.0) % RDW (11.5-15.5) % Plt Count (150-450) k/uL Neutrophils # (Manual) (1.3-7.7) k/uL Metamyelocytes # (Man) (0) k/uL Nucleated RBCs (0-0) /100 WBC D-Dimer (<0.60) mg/L FEU ABG pCO2 (35-45) mmHg ABG pO2 (83-108) mmHg ABG HCO3 (21-25) mmol/L ABG Total CO2 (19-24) mmol/L Chloride (98-107) mmol/L BUN (9-20) mg/dL Creatinine (0.66-1.25) mg/dL Glucose (74-99) mg/dL POC Glucose (mg/dL) 165 H 146 H 131 H (75-99) mg/dL Calcium (8.4-10.2) mg/dL Magnesium (1.6-2.3) mg/dL Ferritin (22.0-322.0) ng/mL Lactate Dehydrogenase (313-618) U/L C-Reactive Protein (<1.0) mg/dL 12/13/20 12/13/20 12/13/20 Range/Units 04:40 04:40 04:40 WBC 17.1 H (3.8-10.6) k/uL RBC 2.41 L (4.30-5.90) m/uL Hgb 7.4 L (13.0-17.5) gm/dL Hct 22.1 L (39.0-53.0) % RDW 17.1 H (11.5-15.5) % Plt Count 33 L (150-450) k/uL Neutrophils # (Manual) 15.00 H (1.3-7.7) k/uL Metamyelocytes # (Man) 0.17 H (0) k/uL Nucleated RBCs 26 H (0-0) /100 WBC D-Dimer 6.38 H (<0.60) mg/L FEU ABG pCO2 (35-45) mmHg ABG pO2 (83-108) mmHg ABG HCO3 (21-25) mmol/L ABG Total CO2 (19-24) mmol/L Chloride 112 H (98-107) mmol/L BUN 102 H* (9-20) mg/dL Creatinine 2.59 H (0.66-1.25) mg/dL Glucose 119 H (74-99) mg/dL POC Glucose (mg/dL) (75-99) mg/dL Calcium 7.2 L (8.4-10.2) mg/dL Magnesium 2.4 H (1.6-2.3) mg/dL Ferritin (22.0-322.0) ng/mL Lactate Dehydrogenase 3681 H (313-618) U/L C-Reactive Protein 3.4 H (<1.0) mg/dL 12/13/20 12/13/20 Range/Units 04:53 08:41 WBC (3.8-10.6) k/uL RBC (4.30-5.90) m/uL Hgb (13.0-17.5) gm/dL Hct (39.0-53.0) % RDW (11.5-15.5) % Plt Count (150-450) k/uL Neutrophils # (Manual) (1.3-7.7) k/uL Metamyelocytes # (Man) (0) k/uL Nucleated RBCs (0-0) /100 WBC D-Dimer (<0.60) mg/L FEU ABG pCO2 52 H (35-45) mmHg ABG pO2 69 L (83-108) mmHg ABG HCO3 31 H (21-25) mmol/L ABG Total CO2 32 H (19-24) mmol/L Chloride (98-107) mmol/L BUN (9-20) mg/dL Creatinine (0.66-1.25) mg/dL Glucose (74-99) mg/dL POC Glucose (mg/dL) 119 H (75-99) mg/dL Calcium (8.4-10.2) mg/dL Magnesium (1.6-2.3) mg/dL Ferritin (22.0-322.0) ng/mL Lactate Dehydrogenase (313-618) U/L C-Reactive Protein (<1.0) mg/dL Microbiology - Last 24 Hours (Table) 12/07/20 10:06 Blood Culture - Preliminary Blood No Growth after 120 hours Assessment and Plan Assessment: Impression: Acute hypoxic referral failure secondary to COVID-19 pneumonia, intubated on 12/07/2020, received barictinib on 11/15, patient was outside the window for rem desivir Suspect ARDS secondary to COVID-19 pneumonia FiO2 remains a 55%, and PEEP is 12. Paroxysmal atrial fibrillation, remains on amiodarone, failed cardioversion. Acute GI bleeding requiring mostly blood products and kcentra, presently off anticoagulation therapy Acute thrombocytopenia, no evidence of DIC. Most likely consumptive in nature. Acute leukocytosis Acute transaminitis/shocked liver Acute tubular necrosis and acute kidney injury, patient is being followed by nephrology not requiring replacement therapy yet. Obesity with BMI of 45.0. Elevated inflammatory markers secondary to COVID-19 infection. Recommendation: Continue ventilatory support. Patient is to stay off antibiotics for now. Stay off Nimbex, titrate propofol and fentanyl, and assess mental status off sedation if possible. Continue to monitor daily labs including CBC, basic metabolic profile, inflammatory markers, liver profile, renal profile. Continue Protonix. Continue Decadron. Nutritional support/enteral feeding. Continue amiodarone. However will change amiodarone to oral Overall prognosis remains relatively poor and guarded. Patient remains critically ill. Critical care time is over 30 minutes Time with Patient: Greater than 30
--- NOTE | 2020-12-13 12:40 | PN ---
PROGRESS NOTE Patient is seen for followup for acute kidney injury associated with underlying COVID pneumonia, sepsis, hypotension. Patient's serum creatinine is stable at 2.5 for the last couple of days. It has improved from 2.9 at peak. Urine output currently at about 200 mL/hour. Patient is maintained on IV Lasix. IV fluids were discontinued yesterday. Patient remains on the vent. FiO2 is at 55%. On examination today, patient is sedated. Blood pressure 133/51, heart rate of 81 per minute, FiO2 55%, O2 saturations about 91% to 92%. Examination of the lower extremities shows edema 2+ bilaterally with significant scrotal edema. Abdomen is soft, nontender, obese, distended. Heart and lungs not examined. [employer] exam cannot be performed, as patient is sedated. Labs show sodium 144, potassium 3.6, chloride 112, BUN 102, serum creatinine 2.59, hemoglobin 7.4 g/dL. Vancomycin level 20.0. ASSESSMENT: 1. Acute kidney injury, acute tubular necrosis, currently nonoliguric with stable renal function, maintained on IV Lasix daily for volume overload. Recommend discontinuation of vancomycin. Level was 20 today. Previous level was 28 on 12/12/2020. It appears that it is currently off his medication list. 2. Acute hypoxic respiratory failure secondary to COVID pneumonia. 3. Volume overload, maintained on daily IV Lasix 40 mg, which I will continue. Currently good urine output. 4. Atrial fibrillation with rapid ventricular response, maintained on amiodarone. 5. Metabolic acidosis, now improved. 6. Acute gastrointestinal bleed, currently off of anticoagulation, currently stable. PLAN: Continue with IV Lasix. Discontinue nephrotoxic medications. Vancomycin is currently discontinued, and I will avoid it, given the relatively higher levels in the last few days. MMODL / IJN: [id number] /
--- NOTE | 2020-12-13 12:42 | ECHOF ---
Referral Reason:Cardiogenic shock MEASUREMENTS -------- HEIGHT: 172.7 cm WEIGHT: 130.2 kg BP: RAP: 5.00 mmHg RVSP: 31.41 mmHg FINDINGS -------- Resting tachycardia (HR>100bpm). Echo Done 12/05/20: Limited Echo for Cardiogenic Shock. Overall left ventricular systolic function is low-normal with, an EF between 50 - 55 %. 5.0mg OF Lumason UTLIZED: 2 OR MORE WALL SEGMENTS NOT VISUALIZED. Echo free space may represent effusion or a pericardial fat pad. CONCLUSIONS -------- 1. Overall left ventricular systolic function is low-normal with, an EF between 50 - 55 %. 2. 5.0mg OF Lumason UTLIZED: 2 OR MORE WALL SEGMENTS NOT VISUALIZED. 3. Echo free space may represent effusion or a pericardial fat pad. CRAYON PAINTER: Alicia Ryan RDCS
[2020-12-13] MEDS: AMIODARONE 200 MG TAB PO SCH ×2 (13:13→21:38)
[2020-12-13 13:22] LABS: Glucose,Whole Blood 126 mg/dL (75-99)
[2020-12-13] MEDS: fentaNYL (PF). 1,000 MCG in SODIUM CHLORIDE 0.9% 80 ML IV SCH (16:35)
[2020-12-13 16:44] LABS: Glucose,Whole Blood 153 mg/dL (75-99)
[2020-12-13] MEDS ORDERED: POTASSIUM BICARBONATE/CIT AC 20 MEQ TABLET.EFF NG-TUBE SCH (18:00)
[2020-12-13 21:22] LABS: Glucose,Whole Blood 125 mg/dL (75-99)
[2020-12-14] MEDS: SODIUM CHLORIDE 0.9% 1,000 ML IV SCH ×2 (00:05→19:59)
[2020-12-14] MEDS: ARTIFICIAL TEARS-HYPROMELLOSE DROPS 15 ML BTL BOTH EYES SCH ×7 (00:05→23:56)
[2020-12-14 00:10] LABS: Glucose,Whole Blood 122 mg/dL (75-99)
[2020-12-14] MEDS: INSULIN ASPART (NovoLOG) 100 UNIT/ML VIAL SQ SCH ×7 (00:11→23:57)
[2020-12-14 04:10] LABS: Glucose,Whole Blood 113 mg/dL (75-99)
[2020-12-14 04:20] LABS: Anisocytosis Slight; HCT 22.3 % (39.0-53.0); HGB 7.6 gm/dL (13.0-17.5); MCH 31.2 pg (25.0-35.0); MCHC 34.1 g/dL (31.0-37.0); MCV 91.5 fL (80.0-100.0); Mean Platelet Volume 11.8; Platelet Count 29 k/uL (150-450); RBC 2.44 m/uL (4.30-5.90); RDW 18.1 % (11.5-15.5)
[2020-12-14 04:37] LABS: Calcium 7.5 mg/dL (8.4-10.2); Potassium 3.9 mmol/L (3.5-5.1); Total Bilirubin 0.9 mg/dL (0.2-1.3); Total Protein 3.8 g/dL (6.3-8.2)
[2020-12-14 05:48] LABS: ABG Base Excess 10.5 mmol/L; ABG HCO3 35 mmol/L (21-25); ABG Oxygen Saturation 96.4 % (94-97); ABG PCO2 52 mmHg (35-45); ABG PH 7.44 (7.35-7.45); ABG PO2 78 mmHg (83-108); ABG TCO2 36 mmol/L (19-24)
[2020-12-14] MEDS: INSULIN DETEMIR (LEVEMIR) 100 UNIT/ML SYR SQ SCH ×2 (06:03→20:28)
[2020-12-14 06:06] LABS: Anisocytosis (M) Present; Band Neutrophils % 8 %; Eosinophils # (M) 0.45 k/uL (0-0.7); Lymphocytes # (M) 1.05 k/uL (1.0-4.8); Metamyelocytes # (M) 0.45 k/uL (0); Metamyelocytes % 3 %; Monocytes # (M) 0.45 k/uL (0-1.0); Neutrophils % (M) 76 %; Nucleated Red Blood Cells 8 /100 WBC (0-0); Total Cells Counted 100
[2020-12-14 06:07] LABS: Polychromasia Present
[2020-12-14 06:10] LABS: Allen Test Performed? no
[2020-12-14] MEDS: fentaNYL (PF). 1,000 MCG in SODIUM CHLORIDE 0.9% 80 ML IV SCH (07:06)
--- NOTE | 2020-12-14 07:08 | XR ---
EXAMINATION TYPE: XR chest 1V portable DATE OF EXAM: 12/14/2020 COMPARISON: 12/13/2020 HISTORY: Tube placement TECHNIQUE: Single frontal view of the chest is obtained. FINDINGS: ET tube tip 2.6 cm from the kamilah. NG tube courses below the diaphragm. Heart upper limit s of normal in size. Diffuse bilateral interstitial and patchy airspace opacity shows relatively stab le appearance. Right subclavian CVC tip lower SVC. IMPRESSION: Stable diffuse lung disease unchanged from prior exam
[2020-12-14] MEDS: ZINC SULFATE 220 MG CAP PO SCH (08:14)
[2020-12-14] MEDS: PANTOPRAZOLE 40 MG/10 ML VIAL IVP SCH ×2 (08:14→20:28)
[2020-12-14] MEDS: ASCORBIC ACID 500 MG TAB PO SCH ×2 (08:14→20:27)
[2020-12-14] MEDS: CHLORHEXIDINE GLUCONATE 15 ML CUP MUCOUS MEM SCH ×2 (08:14→20:27)
[2020-12-14] MEDS: DEXAMETHASONE SOD PHOSPHATE 4 MG/ML 1 ML VIAL IV SCH (08:15)
[2020-12-14] MEDS: AMIODARONE 200 MG TAB PO SCH ×2 (08:15→20:27)
[2020-12-14] MEDS: FUROSEMIDE 10 MG/ML 4 ML VIAL IV SCH ×2 (08:15→20:28)
[2020-12-14] MEDS: CHOLECALCIFEROL 25 MCG (1000 IU) TABLET PO SCH (08:15)
[2020-12-14 08:44] LABS: Glucose,Whole Blood 114 mg/dL (75-99)
--- NOTE | 2020-12-14 09:49 | P.PN ---
Subjective Progress Note Date: 12/13/20 HISTORY OF PRESENT ILLNESS This is a pleasant 60-year-old gentleman patient of Dr. Ridge Christina. He doesn't see a physician often and does not note any medical diseases, except for obesity. He comes seen secondary to fever and chills, cough, starting December 06 first, along with muscle aches, lack of appetite and diarrhea. he was tested for call bid November 08, which required at week of reporting, subsequently was sent to emergency room secondary to worsening symptoms, including dyspnea on exertion, shortness of breath and worsening cough without hemoptysis. Fever, sh ortness of breath lingers, no treatment given to him prior to this admission. The is vaccinated, but the patient is not. He does not believe in vaccines at that time. He comes in the emergency room, with hypoxemia, with very minimal conversational dyspnea, chest x-ray, shows pulmonary infiltrate consistent with Covid pneumonia, oxygen currently is at 6 L nasal cannula, d-dimer was 0.6, LFTs are minimally elevated, 64 AST, lactic acid 2.0 sodium 132, creatinine of 0.9, glucose of 122, LDH of 888, CRP of 5.7. Urine protein noted, without hematuria or proteinuria. Covid was again retested 11/14, PCR is positive. Consult to Dr. Eduardo and pulmonary,, 11/16: Patient is currently on oxygen at 6 L nasal cannula increased to 7 L with humidified oxygen. Patient seen and followed by pulmonary medicine and has been started on Bariticinib, Decadron 6 mg daily, and prophylactic dose of Lovenox. He is reaching 1750 on incentive spirometry. Patient did have episode of diarrhea yesterday, none today and complains of decreased appetite. Patient complains of nasal congestion and Flonase added. 11/17: Patient had difficulty with oxygenation during the night and this morning transitioned to Airfo and partial nonrebreather. Pulse ox is currently running 90-92%, patient is prone. He has been afebrile, heart rate 88, blood pressure 104/63. Repeat d-dimer is elevated at 0.93. Blood sugar 167. C-reactive protein increased to 5.3. AST is 83 and ALT 51. Blood culture remains with no growth after 48 hours. Repeat chest x-ray reveals mild cardiomegaly with bilateral multifocal opacities consistent with Covid 19 infection. No significant change from most recent x-ray. Albuterol inhaler and Symbicort inhaler added. 11/18: Patient is currently on AirVo and nonrebreather with pulse ox of 93%. He's been afebrile, heart rate 85, blood pressure 103/68. Blood culture no growth at 72 hours 2 specimens. Plan to continue proning. Repeat laboratory studies ordered for tomorrow including inflammatory markers. The patient is having difficulty sleeping and melatonin added. Lovenox increased to twice daily dosing. 11/19: Patient remains in isolation. He is on AirVO plus nonrebreather with pulse ox of 93%. He has been afebrile, heart rate 85, blood pressure 122/69. Patient is found sitting in recliner and encouraged to prone when he is able to. Repeat blood work reveals WBC 12, hemoglobin 14.8, platelet count 282. D-dimer is 1.38. Other blood work is pending. Patient is continued on Decadron, vitamin supplements, Lovenox. He is on day #07/20 of Baricitinib. 11/20: Patient has been afebrile, heart rate 71, blood pressure 107/71, pulse ox 88-93% on AirVo plus nonrebreather. Patient seems to be depressed and frustrated with coarse. Noted that he started on Xanax yesterday by pulmonary. We will add and Remeron 7.5 mg at bedtime. Hemoglobin A1c came back at 6.4. Patient is encouraged to use incentive spirometry, increase activity, prone. Discussed CODE STATUS with patient and he wishes to be a full code. 11/21: Patient will pulse ox of 83% as he was on Airvo only and once nonrebreather was placed she went up to 89%. Patient is not eating much. He has been encouraged to take protein supplement, increase activity and prone but patient does not seem motivated. He was started on Remeron last night which will hopefully help with his mood and appetite. He has continued on Lovenox, dexamethasone, Baricitinib #09/19 repeat blood work reveals WBC 14.3. D-dimer increasing to 3.2. Electrolytes normal, creatinine 0.76. LDH is high at 1476, C-reactive protein stable 6.6. 11/22: Patient continues to be on airflow and nonrebreather and with minimal movement, pulse ox drops down to 82%, otherwise patient is maintaining 92-94%. One dose of IV Lasix ordered for today. Temperature max yesterday afternoon was 101.2. Heart rate in the 70s and 80s. Blood pressure 110/59. Urinalysis was negative for infection. Repeat blood work will be ordered for tomorrow. 11/23: Patient Was moved into ICU overnight. He has been on BiPAP through the night and pulse oxing 95% recently on his side, currently sitting on the edge of the bed pulse oxing 90%, with talking he drops to 83%. He is scheduled for PICC line insertion and plan to start TPN today. Patient has been afebrile, heart rate in the 60s, respiratory rate 28. WBC 12.0, hemoglobin 15, platelet count 351. Lymphocytes 11.1. D-dimer 2.46. Sodium 136, otherwise electrolytes are normal. BUN 30 creatinine 0.7. Blood sugar 128. Magnesium 2.5. Phosphorus 5.5. LDH 1691. C-reactive protein 13.4. Total protein 5.6. Blood cultures remain with no growth. Repeat chest x-ray this morning reveals stable diffuse bilateral infiltrates. Patient is on Baricitinib 10/20. Pulmonary has increased frequency of dexamethasone to twice daily and changed to IV6 mg IV twice daily. 11/24: Patient remain in the ICU, still on BiPAP with pulse ox is improving at this point. Continue dexamethasone and Baricitinib 11/20, patient had full meal this morning his TPN will be suspended after today. Patient will remain in the ICU at least for the next 48 hours. 11/25: Remain in the ICU still on BiPAP but his pulse ox is slightly bit better he still on dexamethasone and Baricitinib 12/20 seems to do slightly but better was agreed by intensive care studies TPN, patient oral intake is slightly but better and had slight improvement compared to yesterday. Surprisingly his marker went up slightly bit specially his LDH up to 2086 with C-reactive protein 3.6 kidney function remained good white blood cell climb up to 15.1 specially been on steroid. Chest x-ray still shows diffuse bilateral interstitial infiltrate and patchy opacification persistent but there is a slight improvement in the variation in the left lower lobe compared to few days earlier. 11/26: Patient remain on BiPAP with 100% oxygen to keep his pulse ox around 92 percentile, his d-dimer continue to be quite bit elevated today is having Doppler of the lower extremity but notes CT at this point. Remain on Symbicort, and albuterol HFA, his white blood cell is down 17,000, blood sugars better control. Chest x-ray still showed patchy infiltrate throughout both lung felix persistent didn't change. Patient had mild anxiety with no pain currently. 11/27: Patient remains in the intensive care unit. He is placed on airflow for eating and pulse ox drops to the 7083 percent range. Pulse ox 90-93% on100% BiPAP. He is afebrile, heart rate in the 70s, respiratory rate 27 and 32, blood pressure 102/71. WBC 21.5, lymphocytes 0.6. D-dimer 7.29. Blood sugars running between 111 and 171. Ferritin level [id number]. ALT 54, alkaline phosphatase 152. CK 27, C-reactive protein 2.9. Repeat chest x-ray reveals borderline cardiomegaly with prominent pulmonary vascular markings. Diffuse increased lung markings are present. Correlate for heart failure. Atypical pneumonia should be considered. Lower extremity ultrasound negative for DVT bilaterally. 11/28: Patient remains in the intensive care unit and found sitting in a chair at the bedside. He is continued on BiPAP and switched over to Arava and nonrebreather for meals. Repeat chest x-ray essentially unchanged. Repeat blood work reveals WBC 20.4, hemoglobin 14.8, platelet count 130. Sodium 134, potassium 4.8, creatinine 0.62. LDH 2934. C-reactive protein 3.3, d-dimer 10.2. CT angiogram of the chest has been ordered by pulmonary medicine which revealed slightly suboptimal study without evidence of acute pulmonary embolism. Mild cardiomegaly with bilateral cities and multifocal organizing consolidations consistent with Covid19 infection. Lovenox has been changed to 40 mg daily and dexamethasone changed to Solu-Medrol 60 mg every 6 hours. Taco michelle has completed course of Baricitinib. 11/29: Patient remains in the intensive care unit, patient is utilizing BiPAP and also Airvo with nonrebreather mask added at times as he tolerates. His ox ygenation seems to be improving at 89-93%. Respiratory rate 24, heart rate 88, blood pressure 107/58. Patient does verbalize that he is feeling somewhat better today. WBC 16.4, hemoglobin 15.1, platelet count 120. D-dimer 13.49, C- reactive protein 2, LDH 2086, CK 47. Repeat chest x-ray reveals correlate for pneumonia, edema or pulmonary hemorrhage, there is cardiomegaly. Patient is currently continued on Lovenox, Solu-Medrol, bronchodilators and vitamin supplements. 11/30: Patient remains in intensive care unit, he sitting in a chair at the bedside. He is feeling a little bit better and breath sounds are sounding a little better from yesterday. He is currently on AirVO. Pulse ox is running 84-87%, he has been afebrile, heart rate in the 80s and 90s, respiratory rate in the 20s, blood pressure 110/67. Repeat blood work reveals WBC 19.4, platelet count 126. D-dimer 10.2, LDH 2157, CK 78, C-reactive protein 1.5. Sodium 135, BUN 44 creatinine 0.73. Patient is continued on Lovenox, IV Solu-Medrol, bronchodilators and supplements. 12/01: Patient remains in ICU, he is currently sitting in chair at the bedside. Patient continues to state that he feels a bit better breath sounds are sounding better compared to yesterday. He is currently on airflow. His pulse ox is running 87-89%, he is still short of breath with conversation. Patient has been afebrile, heart rate 72, respirations 28, blood pressure 109/61. WBC 16.0, hemoglobin 15.1, platelets 112, potassium 4.6, BUN 39, creatinine 0.84. Patient is continued on Lovenox, IV Solu-Medrol, bronchodilators and supplements. 12/02: Patient remains in ICU, he is currently sitting up in a chair at the bedside. Patient continues to have shortness of breath with activity and conversation. His chest x-ray unchanged to prior studies. D-dimer 5.96. Incentive spirometer is at the bedside however encouragement to utilize if needed. Patient has been afebrile, heart rate 85, respirations 28, blood pressure 138/86 pulse ox is 85-89% on Airvo. 12/03, patient remains ICU, he seems to be gradually improving, intending around for the better, has improvement on shortness of breath with conversation, nothing supple she did today for dyspnea, however with movement, he does have shortness of breath while in bed turning around. Patient has an airflow at 65 L, pulse ox 90%. No new fevers, no melena and hematochezia, nutrition is appropriate, and is getting better. 12/04: Patient remains in the intensive care unit. He is onAirVo with nonrebreather mask on standby. He did have a rise in his heart rate up to the 140s, atrial fibrillation with RVR and pulmonary has started the patient on amiodarone drip. He has been afebrile, respiratory rate 28, pulse ox 94-97%. WBC 18.7, hemoglobin 15.5, platelet count 131. Sodium 134, potassium 4.5, chloride 99, CO2 31, BUN 32 and creatinine 0.72. Blood sugars are running between 144 and 193. AST 71, ALT 283, alkaline phosphatase 82. LDH 1946, C- reactive protein 0.6. D-dimer 4.21. Repeat chest x-ray reveals worsening bilateral diffuse interstitial and patchy airspace disease. 12/05: Patient has been taken out of isolation by infection control. He is now on AirVo, FiO2 at 75%. He does have nonrebreather mask on standby but oxygen needs seem to be improving slightly. He seems to be slightly less short of breath. Nephrology has switched him to oral prednisone and off Solu-Medrol. Patient is on eliquis for atrial fibrillation. Heart rate is currently cont rolled and he has been afebrile. Amiodarone has been discontinued, echocardiogram ordered. Pulse ox is 88%, afebrile, blood pressure 111/72 and heart rate in the 80s. potline monitor sinus rhythm. Repeat blood work reveals WBC 20.4, hemoglobin 15.2, platelet count 109. Sodium 135, potassium 4.9, chloride 100, CO2 33, BUN 46 and creatinine 0.84. Blood sugars are running between 133 and 231. LDH 1616. 12/06: Patient had difficult is sleeping last night despite use of Remeron and having back pain issues. Tramadol at bedtime ordered. Patient remains in the intensive care unit, he has been moved out of isolation. He continues to be on airflow with pulse ox in the 80s. Blood pressure is soft this morning 85/53 and 92/67 for which fluid bolus of 500 ML's ordered. He's been afebrile, heart rate in the 80s. potline monitor sinus rhythm. Metoprolol was increased to 25 mg twice daily. Echocardiogram reveals EF of 50-55%. 12/07: She remains in intensive care unit but is doing poorly this morning. He had a large bright red and mostly dark stool last evening and a repeat this morning. Eliquis has been placed on hold, he is very quite vasopressors and started on levo. He is on Protonix 40 mg IV push twice daily. He is scheduled to receive 2 units of packed RBCs for drop in his hemoglobin to 9.4. He is currently receiving 2 L IV fluid bolus. Stool for occult blood was positive. Consult was added for Dr. Ojeda. He is currently on BiPAP at 100% with pulse ox of 100%, heart rate 104, respiratory rate 27, blood pressure 88/51. Other blood work today reveals WBC of 22.6, platelet count of 94. Creatinine 0.82 with BUN of 64. Blood sugars 173. Lactic acid 2.9. INR is 1.5, PTT 25.5, AST 69, ALT 200, LDH 1474. Alkaline phosphatase 57 urinalysis negative for infection. Patient had a previous colonoscopy with Dr. Reyes that was normal. 12/08: Yesterday, patient required intubation was placed on mechanical ventilation after becoming more hypotensive started on vasopressin and norepinephrine and status post 7 L of IV fluid. He is status post transfusion of a total of 4 units of packed RBCs and hemoglobin is currently at 7.8. He has had no further episodes of GI bleeding. Consult with nephrology has been added, potassium came back at 6.5 CAT scan of the abdomen and chest revealed pulmonary edema which is slightly improved. Evidence of new posterior pneumomediastinum, air around the lower thoracic esophagus. Decreased excretion of delayed images small amount of abdominal ascites. No bowel obstruction. Chest x-ray reveals low lung volume with bilateral multifocal and confluent opacities consistent with COVID-19. Patient was seen yesterday by general surgery and patient was tentatively scheduled for EGD and colonoscopy on 12/10: She remains intubated and on mechanical ventilation with tidal volume 375, FiO2 60, PEEP of 14. Patient went into A. fib with RVR uncontrolled status post bolus of amiodarone and fluid bolus, shock 3 without conversion and is currently at 140 bpm. He remains on norepinephrine and vasopressin but on lower doses. He is also on Nimbex and propofol. Patient is not on anticoagulation at this point due to GI bleed. Patient has been afebrile, respiratory rate 38, but pressure 86/51, pulse ox 97%. Repeat blood work reveals WBC 21.2, hemoglobin 8.5, platelet count 45. BUN 74 creatinine 2.42. Blood sugars running in the 200s and Levemir 10 units twice daily added along with scale. Magnesium 1.7. AST 2912, ALT 5134. Chest x-ray reveals low lung volumes with bilateral mul tifocal and confluent opacities consistent with Covid 19. 12/10: She remains intubated and on mechanical ventilation with tidal volume 375, FiO2 60, PEEP of 12. Heart rate is anywhere from 115 to 130 in a fib. Patient was off vasopressor and Levophed for blood pressure dropped this morning is back on levo fed. He has had good urine output. He is also on Nimbex, propofol and fentanyl drips. He has had no further bloody tarry stools., WBC 27.1, platelet count 232. BUN 86 and creatinine 2.91. Patient is on tube feedings. EGD and colonoscopy are on hold until patient is medically stable. Patient's is at bedside and all questions have been answered. 12/11: Patient remains intubated and on mechanical ventilation with tidal volume 375, FiO2 60, peep 12. One dose of IV Lasix 40 this am. Continues in afib rvr. Patient is to be weaned off pressors today. Medication changes have been made. He is on to prevent, Nimbex and continues on amiodarone drip. Plan is for sedation holiday if patient does well. He has had good urine output. His had no bowel movement since the GI bleed. Tube feedings are to start. He has been afebrile, heart rate is running up to the 130s, blood pressure 104/63, pulse ox 94%. Blood sugars are well controlled with current regime. Leukocytosis is slowly improving at 23.4, hemoglobin today is 8.6, platelet count 27. BUN 93 and creatinine 2.78, potassium 4.4. Inflammatory markers: Ferritin 17,090, LDH 4086, CK 591, C-reactive protein 5.1, d-dimer 2.34. Repeat chest x-ray report is unchanged. 12/12: Patient remains in intensive care unit intubated on mechanical ventilation with tidal volume 375, FiO2 60 and PEEP of 12. Patient has converted to a sinus rhythm and appears to be quite comfortable on ventilator. He is currently on propofol, fentanyl. Patient has been started on tube feedings and is tolerating. No bloody stools. Repeat chest x-ray reveals diffuse infiltrate appears stable. Multiple lines. WBC 19.3, hemoglobin 8, platelet count 22. D- dimer 2.64. BUN 99 creatinine 2.44. Blood sugars are running 130s 140s. Ferr itin 12,375, total bilirubin 1.5, AST 273, ALT 1906, alkaline phosphatase 128, LDH 3869, CK 334, C-reactive protein 4.8. Patient is status post transfusion of 1 unit of platelets. He has been continued on dexamethasone 4 mg IV daily, IV antibiotics in form of vancomycin, Zosyn was discontinued. Patient's is at the bedside all questions have been answered. 12/13: Patient remains in intensive care unit on mechanical ventilation with tidal volume 375, FiO2 55 and PEEP of 12. Patient is scheduled for a sedation holiday this afternoon. He has had good urine output. potline monitor sinus r hythm. Blood pressure 148/55 and heart rate in the 80s. Patient's and son are at the bedside. Repeat blood work reveals WBC 17.1, hemoglobin 7.4, platelet count 33. D-dimer 6.38. BUN 102 and creatinine 2.59. Blood sugars are running in the 1 teens and 126. Ferritin level 9362, LDH 3681, C-reactive protein 3.4. Patient is on oral amiodarone. Patient's been started on tube feedings. REVIEW OF SYSTEMS Unable to obtain as patient is intubated and on mechanical ventilation PHYSICAL EXAMINATION Gen: This is a 60-year-old obese male in the ICU intubated and on mechanical ventilation and appears to be comfortable. Patient's and son at bedside. HEENT: Head is atraumatic, normocephalic. Pupils equal, round. Sclerae is anicteric, conjunctiva edema. Oral ET and gastric tubes in place. NECK: Supple. No JVD. No lymphadenopathy. No thyromegaly. LUNGS: Diminished with crackles in the bilateral bases. HEART: Regular rate and rhythm. No murmur. potline monitor sinus rhythm. ABDOMEN: obese. Soft. Bowel sounds are present. No masses. No tenderness. Mackenzie catheter draining clear frederick urine. EXTREMITIES: His bilateral pedal edema. No calf tenderness. NEUROLOGICAL: Patient is sedated. ASSESSMENT AND PLAN 1. Acute respiratory failure: Secondary to COVID-19 requiring intubation and mechanical ventilation, with possible secondary bacterial pneumonia, pulmonary medicine, continue Ventolin inhaler, dexamethasone 4 mg IV daily, vancomycin, vitamin supplements. Patient is off Lovenox/eliquis due to GI bleed. 2. Sepsis (POA) secondary to COVID-19 pneumonia, with acute hypoxemic r espiratory failure, diagnosis was of 11/08/2020. 3. Moderate protein calorie malnutrition secondary to poor oral intake. Oral gastric feedings. 4. New-onset atrial fibrillation with RVR, paroxysmal atrial fibrillation. Amiodarone drip status post boluses. Eliquis placed on hold. Echocardiogram as above. 5. Thrombocytopenia secondary to sepsis. No anticoagulation due to thrombocytopenia, GI bleed. Transfusion of 1 unit of platelets. 6. Acute GI bleed with acute blood loss anemia. Eliquis placed on hold, 4 units packed RBCs, IV fluid boluses, consult with Dr. Ojeda appreciated. EGD and colonoscopy once patient is stabilized. 7. Acute hypovolemic shock or septic shock requiring vasopressors, massive IV fluid resuscitation. Vasopressors to be weaned off today. 8. Acute kidney injury with ATN secondary to septic shock. Consult with nephrology appreciated 9. Metabolic acidosis secondary to acute kidney injury. 10. Severe hyperkalemia secondary to acute kidney injury. Followed by nephrology. 11. Shock liver secondary to hypotension. Monitor liver function test. 12. DVT prophylaxis. 13. GI prophylaxis. Protonic. 14. BPH. Mackenzie catheter 15. Proteinuria, unknown cause. 16. Dymetabolic syndrome, monitor for hyperglycemia, A1c 6.4. NovoLog scale every 4 hours, added Levemir 12 units twice daily. 17. Back pain. CODE Status: Full code Prognosis: guarded. Impression and plan of care have been directed as dictated by the signing physician. Sanam Valentine nurse practitioner acting as scribe for signing physician. Objective - Vital Signs Vital signs: Vital Signs Temp 98.6 F 12/13/20 08:00 Pulse 84 12/13/20 10:00 Resp 38 H 12/13/20 10:00 BP 118/67 12/13/20 02:00 Pulse Ox 91 L 12/13/20 10:00 Intake & Output 12/12/20 12/13/20 12/13/20 18:59 06:59 18:59 Intake Total 5134.054 7181.512 100 Output Total 1600 1755 Balance 373.874 -351.488 100 Weight 134.2 kg Intake: IV 374 276 Normal Saline Pressure 39 36 Bag @ 3mL/hr Piperacillin-Tazobactam 3 75 .375 gm In Sodium Chloride 0.9% 100 ml @ 25 mls/hr IVPB Q8HR [facility] Rx# :[id number] Sodium Chloride 0.9% 1, 260 240 000 ml @ 20 mls/hr IV . Q24H [facility] Rx#:[id number] Intake, IV Titration 597.874 527.512 100 Amount Amiodarone 450 mg In 242.505 250 Dextrose 5% in Water 250 ml @ 0.5 MG/MIN 16.667 mls/hr IV .Q15H [facility] Rx#: [id number] Cisatracurium 200 mg In 149.640 Sodium Chloride 0.9% 180 ml @ 1 MCG/KG/MIN 6.492 mls/hr IV .Q24H [facility] Rx#: [id number] fentaNYL (PF). 1,000 mcg 5.729 85.036 In Sodium Chloride 0.9% 80 ml @ 0.25 MCG/KG/HR 3. 37 mls/hr IV .Q24H [facility] Rx #:[id number] propofoL 1,000 mg In 200.000 192.476 100 Empty Bag 1 bag @ Titrate IV .Q0M [facility] Rx#: [id number] Tube Feeding 570 540 Blood Product 372 Platelet Pheresis Pas 372 Psoralen Unit [id number] Other 60 60 Output: Urine 1600 1755 Other: Voiding Method Indwelling Catheter Indwelling Catheter Indwelling Catheter ABP, PAP, CO, CI - Last Documented Arterial Blood Pressure 148/55 - Labs CBC & Chem 7: 12/14/20 04:05 12/14/20 04:05 Labs: Abnormal Lab Results - Last 24 Hours (Table) 12/12/20 12/12/20 12/12/20 Range/Units 03:35 12:10 15:58 WBC (3.8-10.6) k/uL RBC (4.30-5.90) m/uL Hgb (13.0-17.5) gm/dL Hct (39.0-53.0) % RDW (11.5-15.5) % Plt Count (150-450) k/uL Neutrophils # (Manual) (1.3-7.7) k/uL Metamyelocytes # (Man) (0) k/uL Nucleated RBCs (0-0) /100 WBC D-Dimer (<0.60) mg/L FEU ABG pCO2 (35-45) mmHg ABG pO2 (83-108) mmHg ABG HCO3 (21-25) mmol/L ABG Total CO2 (19-24) mmol/L Chloride (98-107) mmol/L BUN (9-20) mg/dL Creatinine (0.66-1.25) mg/dL Glucose (74-99) mg/dL POC Glucose (mg/dL) 141 H 171 H (75-99) mg/dL Calcium (8.4-10.2) mg/dL Magnesium (1.6-2.3) mg/dL Ferritin 97559.0 H (22.0-322.0) ng/mL Lactate Dehydrogenase (313-618) U/L C-Reactive Protein (<1.0) mg/dL 12/12/20 12/13/20 12/13/20 Range/Units 20:17 00:36 03:31 WBC (3.8-10.6) k/uL RBC (4.30-5.90) m/uL Hgb (13.0-17.5) gm/dL Hct (39.0-53.0) % RDW (11.5-15.5) % Plt Count (150-450) k/uL Neutrophils # (Manual) (1.3-7.7) k/uL Metamyelocytes # (Man) (0) k/uL Nucleated RBCs (0-0) /100 WBC D-Dimer (<0.60) mg/L FEU ABG pCO2 (35-45) mmHg ABG pO2 (83-108) mmHg ABG HCO3 (21-25) mmol/L ABG Total CO2 (19-24) mmol/L Chloride (98-107) mmol/L BUN (9-20) mg/dL Creatinine (0.66-1.25) mg/dL Glucose (74-99) mg/dL POC Glucose (mg/dL) 165 H 146 H 131 H (75-99) mg/dL Calcium (8.4-10.2) mg/dL Magnesium (1.6-2.3) mg/dL Ferritin (22.0-322.0) ng/mL Lactate Dehydrogenase (313-618) U/L C-Reactive Protein (<1.0) mg/dL 12/13/20 12/13/20 12/13/20 Range/Units 04:40 04:40 04:40 WBC 17.1 H (3.8-10.6) k/uL RBC 2.41 L (4.30-5.90) m/uL Hgb 7.4 L (13.0-17.5) gm/dL Hct 22.1 L (39.0-53.0) % RDW 17.1 H (11.5-15.5) % Plt Count 33 L (150-450) k/uL Neutrophils # (Manual) 15.00 H (1.3-7.7) k/uL Metamyelocytes # (Man) 0.17 H (0) k/uL Nucleated RBCs 26 H (0-0) /100 WBC D-Dimer 6.38 H (<0.60) mg/L FEU ABG pCO2 (35-45) mmHg ABG pO2 (83-108) mmHg ABG HCO3 (21-25) mmol/L ABG Total CO2 (19-24) mmol/L Chloride 112 H (98-107) mmol/L BUN 102 H* (9-20) mg/dL Creatinine 2.59 H (0.66-1.25) mg/dL Glucose 119 H (74-99) mg/dL POC Glucose (mg/dL) (75-99) mg/dL Calcium 7.2 L (8.4-10.2) mg/dL Magnesium 2.4 H (1.6-2.3) mg/dL Ferritin (22.0-322.0) ng/mL Lactate Dehydrogenase 3681 H (313-618) U/L C-Reactive Protein 3.4 H (<1.0) mg/dL 12/13/20 12/13/20 Range/Units 04:53 08:41 WBC (3.8-10.6) k/uL RBC (4.30-5.90) m/uL Hgb (13.0-17.5) gm/dL Hct (39.0-53.0) % RDW (11.5-15.5) % Plt Count (150-450) k/uL Neutrophils # (Manual) (1.3-7.7) k/uL Metamyelocytes # (Man) (0) k/uL Nucleated RBCs (0-0) /100 WBC D-Dimer (<0.60) mg/L FEU ABG pCO2 52 H (35-45) mmHg ABG pO2 69 L (83-108) mmHg ABG HCO3 31 H (21-25) mmol/L ABG Total CO2 32 H (19-24) mmol/L Chloride (98-107) mmol/L BUN (9-20) mg/dL Creatinine (0.66-1.25) mg/dL Glucose (74-99) mg/dL POC Glucose (mg/dL) 119 H (75-99) mg/dL Calcium (8.4-10.2) mg/dL Magnesium (1.6-2.3) mg/dL Ferritin (22.0-322.0) ng/mL Lactate Dehydrogenase (313-618) U/L C-Reactive Protein (<1.0) mg/dL Microbiology - Last 24 Hours (Table) 12/07/20 10:06 Blood Culture - Preliminary Blood No Growth after 120 hours
--- NOTE | 2020-12-14 10:51 | P.PN ---
Progress Note - Text Progress Note Date: 12/14/20 Patient remains clinically unchanged. He has no signs of GI bleed. His hemoglobin 7.6. He remains thrombocytopenic. His platelets are in the 20s. History of GI bleed. Patient is currently not showing any evidence of GI bleed. We'll remain on standby for endoscopy
--- NOTE | 2020-12-14 11:46 | PN ---
PROGRESS NOTE Patient is seen for followup for acute kidney injury associated with COVID pneumonia, hypotension and sepsis. Patient's renal function is currently stable and somewhat improved. His creatinine is down to 2.1 today. He is being diuresed due to volume overload and significant scrotal edema. Patient remains on the vent. FiO2 is at 50%. He is not on any pressors. Patient had atrial fibrillation with RVR. The amiodarone is currently p.o. On examination today, blood pressure 118/67, heart rate 89 per minute. Patient is afebrile. EXAMINATION OF THE HEART: S1 and S2. EXAMINATION OF LUNGS: Decreased breath sounds at the bases. Abdomen is soft, non-tender. Examination of lower extremities shows edema 2+ bilaterally with significant scrotal edema. COUNTER POCKET TRIMMER exam cannot be assessed. Labs show sodium 146, potassium 3.9, chloride 111. CO2 is 33, BUN 95, creatinine 2.1, hemoglobin 7.6 g/dL. ASSESSMENT: 1. Acute kidney injury, acute tubular necrosis, nonoliguric, currently improving. Etiology COVID pneumonia, hypotension, sepsis. UA is completely benign. 2. Hypernatremia associated with free water deficit. Increase free water down the feeding tube. 3. Hypervolemia and significant scrotal edema. I will increase the Lasix to b.i.d. for today and we will assess volume status and maintain slightly increased diuresis over the weekend as long as renal function stays stable. 4. Acute hypoxic respiratory failure secondary to COVID pneumonia. 5. Atrial fibrillation with rapid ventricular response, maintained on amiodarone, which is now oral. 6. Metabolic acidosis, improved. 7. Acute gastrointestinal bleed, off of anticoagulation, currently stable. PLAN: Increase Lasix to twice a day. Increase free water down the feeding tube. Continue to avoid nephrotoxic agents. MMODL / IJN: [id number] /
--- NOTE | 2020-12-14 12:35 | P.PN ---
Subjective Progress Note Date: 12/14/20 Principal diagnosis: Acute hypoxic respiratory failure secondary to COVID-19 pneumonia. On 12/10/2020 patient seen in follow-up in intensive care unit, he was intubated and placed on mechanical ventilator last Thursday on 12/07/2020. Patient at the time he has developed worsening hypoxic respiratory failure and acute GI blood loss anemia and Hemorrhagic shock requiring transfusion with 4 units of packed red blood cells, K Sentra infusion for reversal of Eliquis, and she was fluid resuscitated with a total of 7 L of fluid. At the same time she was intubated and placed on mechanical ventilator on which he remains today, he is currently on assist control mode of ventilation with a rate of 30, tidal M is 375, FiO2 of 60% and PEEP of 12. This morning's blood gas shows pO2 of 57, pCO2 of 53 a pH of 7.33, and this was on FiO2 of 60%. Patient has been weaned off the vasopressor support, his Levothroid and vasopressin have been off for over 24 hours, he is currently complaining of a rate of 75 ML per hour, amiodarone is at 0.5 mg per hour, and index is at 1 davon per kilo per minute, Diprivan is a 35 mics per kilo per minute. Patient has not had any further bleeding since yesterday. His chest x-ray shows continued bilateral diffuse airspace disease, with worsening at the left base. Patient is still tachycardic with a rate in the 140s BPM and what appears to be in sinus mechanism. Today's labs have been reviewed, showing improving white count which is down to 19.9, hemoglobin is 7.1, platelet count is 28, sodium is 140, potassium is 4.2, chloride is 111, CO2 is 28, BUN is 86, creatinine 2.91, and the patient's renal profile has slightly worsened since yesterday. His AST is improving and is down to 794 from 2912, ALT is 3274, improving, patient has not had a LDH and CRP done in the last 3 or 4 days. Cortisol level was 35 2 days ago, urinalysis without sign of infection, stool for occult blood was positive, his anticoagulation remains on hold. His PICC line has been removed, and catheter tip culture is pending at this time, all his blood and urine cultures have remained negative thus far. Patient remains on multivitamins, she remains on Decadron currently at 4 mg daily, he is on Protonix 40 mg twice daily, he remains on empiric antibiotics in the form of Zosyn and vancomycin. His urine output has been in the order of 45-50 ML per hour. Patient was reevaluated today on 12/11/2020, remains in the ICU, intubated and mechanically ventilated, sedated and paralyzed. Patient is on assist control rate of 38 tidal volume 375 FiO2 60% and PEEP is 12. ABG showed a pO2 of 58 pCO2 of 54 pH of 7.30. Peak airway pressure is 43 plateau pressure is 35. Drips include amiodarone at 0.5, Nimbex at 1, fentanyl at 25 mcg/kg/m, norepinephrine at 0.04 mcg/kg/m, and IV fluid at 50 mL per hour. Chest x-ray continues to show bilateral infiltrates, not much of a change overall. It is consistent with COVID-19 pneumonia. Labs include WBC count of 23.4 hemoglobin 8.6 platelets are low at 27,000, BUN of 93 creatinine 2.78. Inflammatory markers remain high including elevated LDH of 4 above 4000s CPK 591 and C- reactive protein 5.1 transaminases are high with ALT of 2759 and AST of 234 Medications include albuterol, amiodarone, vitamin C, Peridex, vitamin D3, Nimbex, Decadron 4 mg IV push daily, fentanyl, insulin, norepinephrine, Protonix, Zosyn, zinc. Patient is not on any anticoagulation therapy at this point because of his recent massive bleed requiring 5 units of packed RBCs, hemoglobin today is 8.6 Reevaluated today on12/12/2020, patient remains in the ICU, intubated and mechanically ventilated. Patient remains on assist control rate of 38 tidal volume to 75 FiO2 60% PEEP of 12 ABG today showed a pO2 of 70 pCO2 55 pH of 7.31. Patient remains on multiple drips including propofol and fentanyl, presently off Nimbex, may have to increase his propofol to 50 and fentanyl 2015 document per kilo per minute, and we will titrate dose again if the patient tolerates being off Nimbex. He is also on amiodarone drip at 0.5 mg/m. IV flui ds at KVO. He is receiving enteral feedings. He is to receive 1 unit of platelets today because of low platelets. And considering the patient had negative cultures and no specific positive cultures will discontinue antibiotics. Altogether. Chest x-ray continues to show bilateral infiltrates consistent with COVID-19 pneumonia. Medications are relatively unchanged as noted above, patient is not requiring any norepinephrine, and we have decided to discontinue Nimbex this morning. WBC count today is 19.3 hemoglobin is 8 d- dimer is 2.64. Basic metabolic profile is normal BUN is 99 creatinine 2.55, slightly improved liver enzymes remain elevated with AST of 273 ALT of 03/17/2005, LDH is down to 3869. Patient was reevaluated today on 12/13/2020, remains in the ICU, intubated and mechanically ventilated. Patient has been off Nimbex but maintained on propofol and fentanyl, and I'm hoping I could hold sedation narcotics today in order to assess his mental status if possible today. He is on assist control rate of 38 tidal volume 375 FiO2 55% PEEP of 12 ABG showed a pO2 of 69 pCO2 of 52 pH of 7.38. He is on fentanyl at 0.5 mcg/kg/h he is also on propofol at 35 mcg/kg/m. Patient is receiving tube feeding using vital AF at 45 mL per hour. Patient is on amiodarone at 0.5 mg/m, however I will discontinue amiodarone today and switch him to oral amiodarone via orogastric tube. Platelets remain low at 33,000, hence admitted to start the patient back on anticoagulation therapy. Patient remains on compression stockings. And his renal functioning is hovering around 2.59/creatinine. No more bleeding episodes over the last for 5 days. And not requiring any transfusions. He did get 1 unit of platelets yesterday. Asked x-ray continues to show bilateral infiltrates, not much of a change in his WBC count is 17.1 hemoglobin is 7.4. D-dimer is a bit elevated at 6.38. Electr olytes are normal LDH is coming down 3681 today compared to 4006 just couple of days ago C-reactive protein is 3.4. Patient was reevaluated today on 12/14/2020, remains in the intensive care unit, remains intubated and mechanically ventilated. Ventilator settings are assist control rate of 38 tidal volume 375 FiO2 50% PEEP is 12. ABG showed a pO2 of 78 pCO2 52 pH of 7.44 hence no ventilator changes were made. Drips-carranza the patient is on propofol at 30 mcg/kg/m fentanyl 0.5 mcg/kg/h off Nimbex. Receiving enteral feeding vital HF 45/45. Plan to offer the patient is sedation holiday today and hold sedation. Yesterday patient had sedation holiday, and according to the nurse his mental status was relatively appropriate. And he was following simple instructions. Labs today were reviewed, platelets are low again, no active bleeding. And I'm still holding restarting anticoagulation therapy on this patient. CBC showed WBC count is 15.0 hemoglobin is 7.6. Platelets are 29,000. Basic metabolic profile is relatively normal BUN is 95 creatinine down to 2.11 liver enzymes are improving, ALT is down to 964 LDH is also improving Chest x-ray continues to show bilateral interstitial infiltrates, slight improvement is noted Objective - Vital Signs Vital signs: Vital Signs Temp 97.6 F 12/14/20 04:00 Pulse 89 12/14/20 07:00 Resp 38 H 12/14/20 07:00 BP 118/67 12/14/20 07:00 Pulse Ox 95 12/14/20 07:00 Intake & Output 12/13/20 12/14/20 12/14/20 18:59 06:59 18:59 Intake Total 0268.699 5972.456 665.842 Output Total 2100 2115 1685 Balance -455.885 -914.544 -1019.158 Weight 131.8 kg 131.8 kg Intake: IV 253 276 138 .9 KVO 180 240 120 Normal Saline Pressure 33 36 18 Bag @ 3mL/hr Sodium Chloride 0.9% 1, 40 000 ml @ 20 mls/hr IV . Q24H [facility] Rx#:[id number] Intake, IV Titration 606.115 294.456 97.842 Amount Amiodarone 450 mg In 206.115 Dextrose 5% in Water 250 ml @ 0.5 MG/MIN 16.667 mls/hr IV .Q15H [facility] Rx#: [id number] fentaNYL (PF). 1,000 mcg 100 97.842 In Sodium Chloride 0.9% 80 ml @ 0.25 MCG/KG/HR 3. 37 mls/hr IV .Q24H [facility] Rx #:[id number] propofoL 1,000 mg In 300.000 294.456 Empty Bag 1 bag @ Titrate IV .Q0M [facility] Rx#: [id number] Oral 200 100 Tube Feeding 495 540 270 Other 90 90 60 Output: Urine 2100 2115 1685 Other: Voiding Method Indwelling Catheter Indwelling Catheter ABP, PAP, CO, CI - Last Documented Arterial Blood Pressure 145/60 - Exam Gen: This is a 60-year-old obese male, intubated and mechanically ventilated. Sedated with fentanyl and propofol, remains off Nimbex HEENT: Head is atraumatic, normocephalic. [place], EOMI, nonicteric, no neck mass es, no JVD. Endotracheal tube is intact. Mucous membranes are unremarkable. NECK: Supple. No JVD. No lymphadenopathy. No thyromegaly. LUNGS: Crackles at the bases persist, no rhonchi no wheezes. HEART: Regular rate and rhythm. No murmur. ABDOMEN: obese. Soft. Bowel sounds are present. No masses. No tenderness. EXTREMITIES: Bipedal edema is noted and there is also scrotal edema noted. Abd ominal wall edema is also noted. NEUROLOGICAL: Good Not assess patient is sedated, not paralysis. Psychiatric: Could not assess. Sedated . Skin: No rashes. - Labs CBC & Chem 7: 12/14/20 04:05 12/14/20 04:05 Labs: Abnormal Lab Results - Last 24 Hours (Table) 12/13/20 12/13/20 12/13/20 Range/Units 04:40 13:20 16:41 WBC (3.8-10.6) k/uL RBC (4.30-5.90) m/uL Hgb (13.0-17.5) gm/dL Hct (39.0-53.0) % RDW (11.5-15.5) % Plt Count (150-450) k/uL Neutrophils # (Manual) (1.3-7.7) k/uL Metamyelocytes # (Man) (0) k/uL Nucleated RBCs (0-0) /100 WBC ABG pCO2 (35-45) mmHg ABG pO2 (83-108) mmHg ABG HCO3 (21-25) mmol/L ABG Total CO2 (19-24) mmol/L Sodium (137-145) mmol/L Chloride (98-107) mmol/L Carbon Dioxide (22-30) mmol/L BUN (9-20) mg/dL Creatinine (0.66-1.25) mg/dL Glucose (74-99) mg/dL POC Glucose (mg/dL) 126 H 153 H (75-99) mg/dL Calcium (8.4-10.2) mg/dL Ferritin 9362.0 H (22.0-322.0) ng/mL AST (17-59) U/L ALT (4-49) U/L Total Protein (6.3-8.2) g/dL Albumin (3.5-5.0) g/dL 12/13/20 12/14/20 12/14/20 Range/Units 21:20 00:09 04:05 WBC 15.0 H (3.8-10.6) k/uL RBC 2.44 L (4.30-5.90) m/uL Hgb 7.6 L (13.0-17.5) gm/dL Hct 22.3 L (39.0-53.0) % RDW 18.1 H (11.5-15.5) % Plt Count 29 L (150-450) k/uL Neutrophils # (Manual) 12.60 H (1.3-7.7) k/uL Metamyelocytes # (Man) 0.45 H (0) k/uL Nucleated RBCs 8 H (0-0) /100 WBC ABG pCO2 (35-45) mmHg ABG pO2 (83-108) mmHg ABG HCO3 (21-25) mmol/L ABG Total CO2 (19-24) mmol/L Sodium (137-145) mmol/L Chloride (98-107) mmol/L Carbon Dioxide (22-30) mmol/L BUN (9-20) mg/dL Creatinine (0.66-1.25) mg/dL Glucose (74-99) mg/dL POC Glucose (mg/dL) 125 H 122 H (75-99) mg/dL Calcium (8.4-10.2) mg/dL Ferritin (22.0-322.0) ng/mL AST (17-59) U/L ALT (4-49) U/L Total Protein (6.3-8.2) g/dL Albumin (3.5-5.0) g/dL 12/14/20 12/14/20 12/14/20 Range/Units 04:05 04:08 05:46 WBC (3.8-10.6) k/uL RBC (4.30-5.90) m/uL Hgb (13.0-17.5) gm/dL Hct (39.0-53.0) % RDW (11.5-15.5) % Plt Count (150-450) k/uL Neutrophils # (Manual) (1.3-7.7) k/uL Metamyelocytes # (Man) (0) k/uL Nucleated RBCs (0-0) /100 WBC ABG pCO2 52 H (35-45) mmHg ABG pO2 78 L (83-108) mmHg ABG HCO3 35 H (21-25) mmol/L ABG Total CO2 36 H (19-24) mmol/L Sodium 146 H (137-145) mmol/L Chloride 111 H (98-107) mmol/L Carbon Dioxide 33 H (22-30) mmol/L BUN 95 H (9-20) mg/dL Creatinine 2.11 H (0.66-1.25) mg/dL Glucose 107 H (74-99) mg/dL POC Glucose (mg/dL) 113 H (75-99) mg/dL Calcium 7.5 L (8.4-10.2) mg/dL Ferritin (22.0-322.0) ng/mL AST 120 H (17-59) U/L ALT 964 H (4-49) U/L Total Protein 3.8 L (6.3-8.2) g/dL Albumin 2.0 L (3.5-5.0) g/dL 12/14/20 Range/Units 08:43 WBC (3.8-10.6) k/uL RBC (4.30-5.90) m/uL Hgb (13.0-17.5) gm/dL Hct (39.0-53.0) % RDW (11.5-15.5) % Plt Count (150-450) k/uL Neutrophils # (Manual) (1.3-7.7) k/uL Metamyelocytes # (Man) (0) k/uL Nucleated RBCs (0-0) /100 WBC ABG pCO2 (35-45) mmHg ABG pO2 (83-108) mmHg ABG HCO3 (21-25) mmol/L ABG Total CO2 (19-24) mmol/L Sodium (137-145) mmol/L Chloride (98-107) mmol/L Carbon Dioxide (22-30) mmol/L BUN (9-20) mg/dL Creatinine (0.66-1.25) mg/dL Glucose (74-99) mg/dL POC Glucose (mg/dL) 114 H (75-99) mg/dL Calcium (8.4-10.2) mg/dL Ferritin (22.0-322.0) ng/mL AST (17-59) U/L ALT (4-49) U/L Total Protein (6.3-8.2) g/dL Albumin (3.5-5.0) g/dL Microbiology - Last 24 Hours (Table) 12/07/20 10:06 Blood Culture - Final Blood No Growth after 144 hours Assessment and Plan Assessment: Impression: Acute hypoxic referral failure secondary to COVID-19 pneumonia, intubated on 12/07/2020, received barictinib on 11/15, patient was outside the window for remdesivir Suspect ARDS secondary to COVID-19 pneumonia FiO2 remains a 55%, and PEEP is 12. Paroxysmal atrial fibrillation, remains on amiodarone, failed cardioversion. Acute GI bleeding requiring mostly blood products and kcentra, presently off anticoagulation therapy Acute thrombocytopenia, no evidence of DIC. Most likely consumptive in nature. Acute leukocytosis Acute transaminitis/shocked liver Acute tubular necrosis and acute kidney injury, patient is being followed by nephrology not requiring replacement therapy yet. Obesity with BMI of 45.0. Elevated inflammatory markers secondary to COVID-19 infection. Recommendation: Continue ventilatory support. Sedation holiday again today and assessment of mental status. No ventilator settings changes. Keep the patient off Nimbex. Continue to monitor daily labs including CBC, basic metabolic profile, inflammatory markers, liver profile, renal profile. Today's labs are showing improvement. Continue Protonix. Continue Decadron. Integumentary enteral feeding./Nutritional support. Continue oral amiodarone. Discussed his status today with his and his children, and updated them on his condition basically letting them know that there is some improvement, however the patient is not out of the sheppard yet, and prognosis remains guarded. And explained to them that next week we may have to seriously considered tracheostomy and PEG tube placement. And they seem to be on the same page. Overall prognosis remains relatively poor and guarded. Patient remains critically ill. Critical care time is over 30 minutes Time with Patient: Greater than 30
--- NOTE | 2020-12-14 13:38 | P.PN ---
Subjective Progress Note Date: 12/14/20 HISTORY OF PRESENT ILLNESS This is a pleasant 60-year-old gentleman patient of Dr. Ridge Christina. He doesn't see a physician often and does not note any medical diseases, except for obesity. He comes seen secondary to fever and chills, cough, starting December 06 first, along with muscle aches, lack of appetite and diarrhea. he was tested for call bid November 08, which required at week of reporting, subsequently was sent to emergency room secondary to worsening symptoms, including dyspnea on exertion, shortness of breath and worsening cough without hemoptysis. Fever, sh ortness of breath lingers, no treatment given to him prior to this admission. The is vaccinated, but the patient is not. He does not believe in vaccines at that time. He comes in the emergency room, with hypoxemia, with very minimal conversational dyspnea, chest x-ray, shows pulmonary infiltrate consistent with Covid pneumonia, oxygen currently is at 6 L nasal cannula, d-dimer was 0.6, LFTs are minimally elevated, 64 AST, lactic acid 2.0 sodium 132, creatinine of 0.9, glucose of 122, LDH of 888, CRP of 5.7. Urine protein noted, without hematuria or proteinuria. Covid was again retested 11/14, PCR is positive. Consult to Dr. Eduardo and pulmonary,, 11/16: Patient is currently on oxygen at 6 L nasal cannula increased to 7 L with humidified oxygen. Patient seen and followed by pulmonary medicine and has been started on Bariticinib, Decadron 6 mg daily, and prophylactic dose of Lovenox. He is reaching 1750 on incentive spirometry. Patient did have episode of diarrhea yesterday, none today and complains of decreased appetite. Patient complains of nasal congestion and Flonase added. 11/17: Patient had difficulty with oxygenation during the night and this morning transitioned to Airfo and partial nonrebreather. Pulse ox is currently running 90-92%, patient is prone. He has been afebrile, heart rate 88, blood pressure 104/63. Repeat d-dimer is elevated at 0.93. Blood sugar 167. C-reactive protein increased to 5.3. AST is 83 and ALT 51. Blood culture remains with no growth after 48 hours. Repeat chest x-ray reveals mild cardiomegaly with bilateral multifocal opacities consistent with Covid 19 infection. No significant change from most recent x-ray. Albuterol inhaler and Symbicort inhaler added. 11/18: Patient is currently on AirVo and nonrebreather with pulse ox of 93%. He's been afebrile, heart rate 85, blood pressure 103/68. Blood culture no growth at 72 hours 2 specimens. Plan to continue proning. Repeat laboratory studies ordered for tomorrow including inflammatory markers. The patient is having difficulty sleeping and melatonin added. Lovenox increased to twice daily dosing. 11/19: Patient remains in isolation. He is on AirVO plus nonrebreather with pulse ox of 93%. He has been afebrile, heart rate 85, blood pressure 122/69. Patient is found sitting in recliner and encouraged to prone when he is able to. Repeat blood work reveals WBC 12, hemoglobin 14.8, platelet count 282. D-dimer is 1.38. Other blood work is pending. Patient is continued on Decadron, vitamin supplements, Lovenox. He is on day #07/20 of Baricitinib. 11/20: Patient has been afebrile, heart rate 71, blood pressure 107/71, pulse ox 88-93% on AirVo plus nonrebreather. Patient seems to be depressed and frustrated with coarse. Noted that he started on Xanax yesterday by pulmonary. We will add and Remeron 7.5 mg at bedtime. Hemoglobin A1c came back at 6.4. Patient is encouraged to use incentive spirometry, increase activity, prone. Discussed CODE STATUS with patient and he wishes to be a full code. 11/21: Patient will pulse ox of 83% as he was on Airvo only and once nonrebreather was placed she went up to 89%. Patient is not eating much. He has been encouraged to take protein supplement, increase activity and prone but patient does not seem motivated. He was started on Remeron last night which will hopefully help with his mood and appetite. He has continued on Lovenox, dexamethasone, Baricitinib #09/19 repeat blood work reveals WBC 14.3. D-dimer increasing to 3.2. Electrolytes normal, creatinine 0.76. LDH is high at 1476, C-reactive protein stable 6.6. 11/22: Patient continues to be on airflow and nonrebreather and with minimal movement, pulse ox drops down to 82%, otherwise patient is maintaining 92-94%. One dose of IV Lasix ordered for today. Temperature max yesterday afternoon was 101.2. Heart rate in the 70s and 80s. Blood pressure 110/59. Urinalysis was negative for infection. Repeat blood work will be ordered for tomorrow. 11/23: Patient Was moved into ICU overnight. He has been on BiPAP through the night and pulse oxing 95% recently on his side, currently sitting on the edge of the bed pulse oxing 90%, with talking he drops to 83%. He is scheduled for PICC line insertion and plan to start TPN today. Patient has been afebrile, heart rate in the 60s, respiratory rate 28. WBC 12.0, hemoglobin 15, platelet count 351. Lymphocytes 11.1. D-dimer 2.46. Sodium 136, otherwise electrolytes are normal. BUN 30 creatinine 0.7. Blood sugar 128. Magnesium 2.5. Phosphorus 5.5. LDH 1691. C-reactive protein 13.4. Total protein 5.6. Blood cultures remain with no growth. Repeat chest x-ray this morning reveals stable diffuse bilateral infiltrates. Patient is on Baricitinib 10/20. Pulmonary has increased frequency of dexamethasone to twice daily and changed to IV6 mg IV twice daily. 11/24: Patient remain in the ICU, still on BiPAP with pulse ox is improving at this point. Continue dexamethasone and Baricitinib 11/20, patient had full meal this morning his TPN will be suspended after today. Patient will remain in the ICU at least for the next 48 hours. 11/25: Remain in the ICU still on BiPAP but his pulse ox is slightly bit better he still on dexamethasone and Baricitinib 12/20 seems to do slightly but better was agreed by intensive care studies TPN, patient oral intake is slightly but better and had slight improvement compared to yesterday. Surprisingly his marker went up slightly bit specially his LDH up to 2086 with C-reactive protein 3.6 kidney function remained good white blood cell climb up to 15.1 specially been on steroid. Chest x-ray still shows diffuse bilateral interstitial infiltrate and patchy opacification persistent but there is a slight improvement in the variation in the left lower lobe compared to few days earlier. 11/26: Patient remain on BiPAP with 100% oxygen to keep his pulse ox around 92 percentile, his d-dimer continue to be quite bit elevated today is having Doppler of the lower extremity but notes CT at this point. Remain on Symbicort, and albuterol HFA, his white blood cell is down 17,000, blood sugars better control. Chest x-ray still showed patchy infiltrate throughout both lung felix persistent didn't change. Patient had mild anxiety with no pain currently. 11/27: Patient remains in the intensive care unit. He is placed on airflow for eating and pulse ox drops to the 7083 percent range. Pulse ox 90-93% on100% BiPAP. He is afebrile, heart rate in the 70s, respiratory rate 27 and 32, blood pressure 102/71. WBC 21.5, lymphocytes 0.6. D-dimer 7.29. Blood sugars running between 111 and 171. Ferritin level [id number]. ALT 54, alkaline phosphatase 152. CK 27, C-reactive protein 2.9. Repeat chest x-ray reveals borderline cardiomegaly with prominent pulmonary vascular markings. Diffuse increased lung markings are present. Correlate for heart failure. Atypical pneumonia should be considered. Lower extremity ultrasound negative for DVT bilaterally. 11/28: Patient remains in the intensive care unit and found sitting in a chair at the bedside. He is continued on BiPAP and switched over to Arava and nonrebreather for meals. Repeat chest x-ray essentially unchanged. Repeat blood work reveals WBC 20.4, hemoglobin 14.8, platelet count 130. Sodium 134, potassium 4.8, creatinine 0.62. LDH 2934. C-reactive protein 3.3, d-dimer 10.2. CT angiogram of the chest has been ordered by pulmonary medicine which revealed slightly suboptimal study without evidence of acute pulmonary embolism. Mild cardiomegaly with bilateral cities and multifocal organizing consolidations consistent with Covid19 infection. Lovenox has been changed to 40 mg daily and dexamethasone changed to Solu-Medrol 60 mg every 6 hours. Taco michelle has completed course of Baricitinib. 11/29: Patient remains in the intensive care unit, patient is utilizing BiPAP and also Airvo with nonrebreather mask added at times as he tolerates. His ox ygenation seems to be improving at 89-93%. Respiratory rate 24, heart rate 88, blood pressure 107/58. Patient does verbalize that he is feeling somewhat better today. WBC 16.4, hemoglobin 15.1, platelet count 120. D-dimer 13.49, C- reactive protein 2, LDH 2086, CK 47. Repeat chest x-ray reveals correlate for pneumonia, edema or pulmonary hemorrhage, there is cardiomegaly. Patient is currently continued on Lovenox, Solu-Medrol, bronchodilators and vitamin supplements. 11/30: Patient remains in intensive care unit, he sitting in a chair at the bedside. He is feeling a little bit better and breath sounds are sounding a little better from yesterday. He is currently on AirVO. Pulse ox is running 84-87%, he has been afebrile, heart rate in the 80s and 90s, respiratory rate in the 20s, blood pressure 110/67. Repeat blood work reveals WBC 19.4, platelet count 126. D-dimer 10.2, LDH 2157, CK 78, C-reactive protein 1.5. Sodium 135, BUN 44 creatinine 0.73. Patient is continued on Lovenox, IV Solu-Medrol, bronchodilators and supplements. 12/01: Patient remains in ICU, he is currently sitting in chair at the bedside. Patient continues to state that he feels a bit better breath sounds are sounding better compared to yesterday. He is currently on airflow. His pulse ox is running 87-89%, he is still short of breath with conversation. Patient has been afebrile, heart rate 72, respirations 28, blood pressure 109/61. WBC 16.0, hemoglobin 15.1, platelets 112, potassium 4.6, BUN 39, creatinine 0.84. Patient is continued on Lovenox, IV Solu-Medrol, bronchodilators and supplements. 12/02: Patient remains in ICU, he is currently sitting up in a chair at the bedside. Patient continues to have shortness of breath with activity and conversation. His chest x-ray unchanged to prior studies. D-dimer 5.96. Incentive spirometer is at the bedside however encouragement to utilize if needed. Patient has been afebrile, heart rate 85, respirations 28, blood pressure 138/86 pulse ox is 85-89% on Airvo. 12/03, patient remains ICU, he seems to be gradually improving, intending around for the better, has improvement on shortness of breath with conversation, nothing supple she did today for dyspnea, however with movement, he does have shortness of breath while in bed turning around. Patient has an airflow at 65 L, pulse ox 90%. No new fevers, no melena and hematochezia, nutrition is appropriate, and is getting better. 12/04: Patient remains in the intensive care unit. He is onAirVo with nonrebreather mask on standby. He did have a rise in his heart rate up to the 140s, atrial fibrillation with RVR and pulmonary has started the patient on amiodarone drip. He has been afebrile, respiratory rate 28, pulse ox 94-97%. WBC 18.7, hemoglobin 15.5, platelet count 131. Sodium 134, potassium 4.5, chloride 99, CO2 31, BUN 32 and creatinine 0.72. Blood sugars are running between 144 and 193. AST 71, ALT 283, alkaline phosphatase 82. LDH 1946, C- reactive protein 0.6. D-dimer 4.21. Repeat chest x-ray reveals worsening bilateral diffuse interstitial and patchy airspace disease. 12/05: Patient has been taken out of isolation by infection control. He is now on AirVo, FiO2 at 75%. He does have nonrebreather mask on standby but oxygen needs seem to be improving slightly. He seems to be slightly less short of breath. Nephrology has switched him to oral prednisone and off Solu-Medrol. Patient is on eliquis for atrial fibrillation. Heart rate is currently cont rolled and he has been afebrile. Amiodarone has been discontinued, echocardiogram ordered. Pulse ox is 88%, afebrile, blood pressure 111/72 and heart rate in the 80s. cardiac monitor sinus rhythm. Repeat blood work reveals WBC 20.4, hemoglobin 15.2, platelet count 109. Sodium 135, potassium 4.9, chloride 100, CO2 33, BUN 46 and creatinine 0.84. Blood sugars are running between 133 and 231. LDH 1616. 12/06: Patient had difficult is sleeping last night despite use of Remeron and having back pain issues. Tramadol at bedtime ordered. Patient remains in the intensive care unit, he has been moved out of isolation. He continues to be on airflow with pulse ox in the 80s. Blood pressure is soft this morning 85/53 and 92/67 for which fluid bolus of 500 ML's ordered. He's been afebrile, heart rate in the 80s. cardiac monitor sinus rhythm. Metoprolol was increased to 25 mg twice daily. Echocardiogram reveals EF of 50-55%. 12/07: She remains in intensive care unit but is doing poorly this morning. He had a large bright red and mostly dark stool last evening and a repeat this morning. Eliquis has been placed on hold, he is very quite vasopressors and started on levo. He is on Protonix 40 mg IV push twice daily. He is scheduled to receive 2 units of packed RBCs for drop in his hemoglobin to 9.4. He is currently receiving 2 L IV fluid bolus. Stool for occult blood was positive. Consult was added for Dr. Ojeda. He is currently on BiPAP at 100% with pulse ox of 100%, heart rate 104, respiratory rate 27, blood pressure 88/51. Other blood work today reveals WBC of 22.6, platelet count of 94. Creatinine 0.82 with BUN of 64. Blood sugars 173. Lactic acid 2.9. INR is 1.5, PTT 25.5, AST 69, ALT 200, LDH 1474. Alkaline phosphatase 57 urinalysis negative for infection. Patient had a previous colonoscopy with Dr. Reyes that was normal. 12/08: Yesterday, patient required intubation was placed on mechanical ventilation after becoming more hypotensive started on vasopressin and norepinephrine and status post 7 L of IV fluid. He is status post transfusion of a total of 4 units of packed RBCs and hemoglobin is currently at 7.8. He has had no further episodes of GI bleeding. Consult with nephrology has been added, potassium came back at 6.5 CAT scan of the abdomen and chest revealed pulmonary edema which is slightly improved. Evidence of new posterior pneumomediastinum, air around the lower thoracic esophagus. Decreased excretion of delayed images small amount of abdominal ascites. No bowel obstruction. Chest x-ray reveals low lung volume with bilateral multifocal and confluent opacities consistent with COVID-19. Patient was seen yesterday by general surgery and patient was tentatively scheduled for EGD and colonoscopy on 12/10: She remains intubated and on mechanical ventilation with tidal volume 375, FiO2 60, PEEP of 14. Patient went into A. fib with RVR uncontrolled status post bolus of amiodarone and fluid bolus, shock 3 without conversion and is currently at 140 bpm. He remains on norepinephrine and vasopressin but on lower doses. He is also on Nimbex and propofol. Patient is not on anticoagulation at this point due to GI bleed. Patient has been afebrile, respiratory rate 38, but pressure 86/51, pulse ox 97%. Repeat blood work reveals WBC 21.2, hemoglobin 8.5, platelet count 45. BUN 74 creatinine 2.42. Blood sugars running in the 200s and Levemir 10 units twice daily added along with scale. Magnesium 1.7. AST 2912, ALT 5134. Chest x-ray reveals low lung volumes with bilateral mul tifocal and confluent opacities consistent with Covid 19. 12/10: She remains intubated and on mechanical ventilation with tidal volume 375, FiO2 60, PEEP of 12. Heart rate is anywhere from 115 to 130 in a fib. Patient was off vasopressor and Levophed for blood pressure dropped this morning is back on levo fed. He has had good urine output. He is also on Nimbex, propofol and fentanyl drips. He has had no further bloody tarry stools., WBC 27.1, platelet count 232. BUN 86 and creatinine 2.91. Patient is on tube feedings. EGD and colonoscopy are on hold until patient is medically stable. Patient's is at bedside and all questions have been answered. 12/11: Patient remains intubated and on mechanical ventilation with tidal volume 375, FiO2 60, peep 12. One dose of IV Lasix 40 this am. Continues in afib rvr. Patient is to be weaned off pressors today. Medication changes have been made. He is on to prevent, Nimbex and continues on amiodarone drip. Plan is for sedation holiday if patient does well. He has had good urine output. His had no bowel movement since the GI bleed. Tube feedings are to start. He has been afebrile, heart rate is running up to the 130s, blood pressure 104/63, pulse ox 94%. Blood sugars are well controlled with current regime. Leukocytosis is slowly improving at 23.4, hemoglobin today is 8.6, platelet count 27. BUN 93 and creatinine 2.78, potassium 4.4. Inflammatory markers: Ferritin 17,090, LDH 4086, CK 591, C-reactive protein 5.1, d-dimer 2.34. Repeat chest x-ray report is unchanged. 12/12: Patient remains in intensive care unit intubated on mechanical ventilation with tidal volume 375, FiO2 60 and PEEP of 12. Patient has converted to a sinus rhythm and appears to be quite comfortable on ventilator. He is currently on propofol, fentanyl. Patient has been started on tube feedings and is tolerating. No bloody stools. Repeat chest x-ray reveals diffuse infiltrate appears stable. Multiple lines. WBC 19.3, hemoglobin 8, platelet count 22. D- dimer 2.64. BUN 99 creatinine 2.44. Blood sugars are running 130s 140s. Ferr itin 12,375, total bilirubin 1.5, AST 273, ALT 1906, alkaline phosphatase 128, LDH 3869, CK 334, C-reactive protein 4.8. Patient is status post transfusion of 1 unit of platelets. He has been continued on dexamethasone 4 mg IV daily, IV antibiotics in form of vancomycin, Zosyn was discontinued. Patient's is at the bedside all questions have been answered. 12/13: Patient remains in intensive care unit on mechanical ventilation with tidal volume 375, FiO2 55 and PEEP of 12. Patient is scheduled for a sedation holiday this afternoon. He has had good urine output. cardiac monitor sinus r hythm. Blood pressure 148/55 and heart rate in the 80s. Patient's and son are at the bedside. Repeat blood work reveals WBC 17.1, hemoglobin 7.4, platelet count 33. D-dimer 6.38. BUN 102 and creatinine 2.59. Blood sugars are running in the 1 teens and 126. Ferritin level 9362, LDH 3681, C-reactive protein 3.4. Patient is on oral amiodarone. Patient's been started on tube feedings. 12/14: Patient remains in the intensive care unit. Family members are at bedside. Patient did well with a 30 minute sedation holiday and propofol and fentanyl were decreased. He is currently on tidal volume 375, FiO2 50 and PEEP of 12. cardiac monitor is a sinus rhythm, heart rate 85, blood pressure 138/64, pulse ox 96%. Patient is ordered for 2 doses of Lasix per nephrology today and is diuresing well. He is on tube feedings and tolerating. He did have a small all movement but no blood. WBC 15, hemoglobin 7.6, platelet count 29. Sodium 146, potassium 3.9, chloride 111, CO2 33, BUN 95 and creatinine 2.11. Blood sugars are running 113-125. AST 120, ALT 964, alkaline phosphatase 122. REVIEW OF SYSTEMS Unable to obtain as patient is intubated and on mechanical ventilation PHYSICAL EXAMINATION Gen: This is a 60-year-old obese male in the ICU intubated and on mechanical ventilation and appears to be comfortable. Patient's and son at bedside. HEENT: Head is atraumatic, normocephalic. Pupils equal, round. Sclerae is anicteric, conjunctiva edema. Oral ET and gastric tubes in place, to feedings in place. NECK: Supple. No JVD. No lymphadenopathy. No thyromegaly. LUNGS: Diminished with crackles in the bilateral bases. HEART: Regular rate and rhythm. No murmur. cardiac monitor is a sinus rhythm. ABDOMEN: obese. Soft. Bowel sounds are present. No masses. No tenderness. Mackenzie catheter draining clear frederick urine with good urine output. EXTREMITIES: His bilateral pedal edema. No calf tenderness. NEUROLOGICAL: Patient is sedated. ASSESSMENT AND PLAN 1. Acute respiratory failure: Secondary to COVID-19 requiring intubation and mechanical ventilation, with possible secondary bacterial pneumonia, pulmonary medicine, continue Ventolin inhaler, dexamethasone 4 mg IV daily,vitamin supplements. Patient is off Lovenox/eliquis due to GI bleed. 2. Sepsis (POA) secondary to COVID-19 pneumonia, with acute hypoxemic respiratory failure, diagnosis was of 11/08/2020. 3. Moderate protein calorie malnutrition secondary to poor oral intake. Oral gastric feedings. 4. New-onset atrial fibrillation with RVR, paroxysmal atrial fibrillation. Continue oral amiodarone 200 mg twice daily, Eliquis placed on hold due to GI bleed. Echocardiogram as above. 5. Thrombocytopenia secondary to sepsis. No anticoagulation due to thrombocytopenia, GI bleed. Transfusion of 1 unit of platelets. 6. Acute GI bleed with acute blood loss anemia. Eliquis placed on hold, 4 units packed RBCs, IV fluid boluses, consult with Dr. Ojeda appreciated. EGD and colonoscopy once patient is stabilized, Dr. Lester is following. 7. Acute hypovolemic shock or septic shock requiring vasopressors, massive IV fluid resuscitation. Patient is off vasopressors and blood pressure has been stable. 8. Acute kidney injury with ATN secondary to septic shock. Consult with nephrology appreciated. Patient has had good urine output. IV Lasix 2 today. 9. Metabolic acidosis secondary to acute kidney injury. 10. Severe hyperkalemia secondary to acute kidney injury. Followed by nephrology. 11. Shock liver secondary to hypotension. Monitor liver function test. 12. DVT prophylaxis. 13. GI prophylaxis. Protonic. 14. BPH. Mackenzie catheter 15. Proteinuria, unknown cause. 16. Dymetabolic syndrome, monitor for hyperglycemia, A1c 6.4. NovoLog scale every 4 hours, added Levemir 12 units twice daily. 17. Back pain. CODE Status: Full code Prognosis: guarded. Impression and plan of care have been directed as dictated by the signing physician. Sanam Valentine nurse practitioner acting as scribe for signing physician. Objective - Vital Signs Vital signs: Vital Signs Temp 97.6 F 12/14/20 04:00 Pulse 89 12/14/20 07:00 Resp 38 H 12/14/20 07:00 BP 118/67 12/14/20 07:00 Pulse Ox 95 12/14/20 07:00 Intake & Output 12/13/20 12/14/20 12/14/20 18:59 06:59 18:59 Intake Total 3462.541 0959.456 665.842 Output Total 2100 2115 1685 Balance -455.885 -914.544 -1019.158 Weight 131.8 kg 131.8 kg Intake: IV 253 276 138 .9 KVO 180 240 120 Normal Saline Pressure 33 36 18 Bag @ 3mL/hr Sodium Chloride 0.9% 1, 40 000 ml @ 20 mls/hr IV . Q24H [facility] Rx#:[id number] Intake, IV Titration 606.115 294.456 97.842 Amount Amiodarone 450 mg In 206.115 Dextrose 5% in Water 250 ml @ 0.5 MG/MIN 16.667 mls/hr IV .Q15H [facility] Rx#: [id number] fentaNYL (PF). 1,000 mcg 100 97.842 In Sodium Chloride 0.9% 80 ml @ 0.25 MCG/KG/HR 3. 37 mls/hr IV .Q24H [facility] Rx #:[id number] propofoL 1,000 mg In 300.000 294.456 Empty Bag 1 bag @ Titrate IV .Q0M [facility] Rx#: [id number] Oral 200 100 Tube Feeding 495 540 270 Other 90 90 60 Output: Urine 2100 2115 1685 Other: Voiding Method Indwelling Catheter Indwelling Catheter ABP, PAP, CO, CI - Last Documented Arterial Blood Pressure 145/60 - Labs CBC & Chem 7: 12/14/20 04:05 12/14/20 04:05 Labs: Abnormal Lab Results - Last 24 Hours (Table) 12/13/20 12/13/20 12/13/20 Range/Units 04:40 13:20 16:41 WBC (3.8-10.6) k/uL RBC (4.30-5.90) m/uL Hgb (13.0-17.5) gm/dL Hct (39.0-53.0) % RDW (11.5-15.5) % Plt Count (150-450) k/uL Neutrophils # (Manual) (1.3-7.7) k/uL Metamyelocytes # (Man) (0) k/uL Nucleated RBCs (0-0) /100 WBC ABG pCO2 (35-45) mmHg ABG pO2 (83-108) mmHg ABG HCO3 (21-25) mmol/L ABG Total CO2 (19-24) mmol/L Sodium (137-145) mmol/L Chloride (98-107) mmol/L Carbon Dioxide (22-30) mmol/L BUN (9-20) mg/dL Creatinine (0.66-1.25) mg/dL Glucose (74-99) mg/dL POC Glucose (mg/dL) 126 H 153 H (75-99) mg/dL Calcium (8.4-10.2) mg/dL Ferritin 9362.0 H (22.0-322.0) ng/mL AST (17-59) U/L ALT (4-49) U/L Total Protein (6.3-8.2) g/dL Albumin (3.5-5.0) g/dL 12/13/20 12/14/20 12/14/20 Range/Units 21:20 00:09 04:05 WBC 15.0 H (3.8-10.6) k/uL RBC 2.44 L (4.30-5.90) m/uL Hgb 7.6 L (13.0-17.5) gm/dL Hct 22.3 L (39.0-53.0) % RDW 18.1 H (11.5-15.5) % Plt Count 29 L (150-450) k/uL Neutrophils # (Manual) 12.60 H (1.3-7.7) k/uL Metamyelocytes # (Man) 0.45 H (0) k/uL Nucleated RBCs 8 H (0-0) /100 WBC ABG pCO2 (35-45) mmHg ABG pO2 (83-108) mmHg ABG HCO3 (21-25) mmol/L ABG Total CO2 (19-24) mmol/L Sodium (137-145) mmol/L Chloride (98-107) mmol/L Carbon Dioxide (22-30) mmol/L BUN (9-20) mg/dL Creatinine (0.66-1.25) mg/dL Glucose (74-99) mg/dL POC Glucose (mg/dL) 125 H 122 H (75-99) mg/dL Calcium (8.4-10.2) mg/dL Ferritin (22.0-322.0) ng/mL AST (17-59) U/L ALT (4-49) U/L Total Protein (6.3-8.2) g/dL Albumin (3.5-5.0) g/dL 12/14/20 12/14/20 12/14/20 Range/Units 04:05 04:08 05:46 WBC (3.8-10.6) k/uL RBC (4.30-5.90) m/uL Hgb (13.0-17.5) gm/dL Hct (39.0-53.0) % RDW (11.5-15.5) % Plt Count (150-450) k/uL Neutrophils # (Manual) (1.3-7.7) k/uL Metamyelocytes # (Man) (0) k/uL Nucleated RBCs (0-0) /100 WBC ABG pCO2 52 H (35-45) mmHg ABG pO2 78 L (83-108) mmHg ABG HCO3 35 H (21-25) mmol/L ABG Total CO2 36 H (19-24) mmol/L Sodium 146 H (137-145) mmol/L Chloride 111 H (98-107) mmol/L Carbon Dioxide 33 H (22-30) mmol/L BUN 95 H (9-20) mg/dL Creatinine 2.11 H (0.66-1.25) mg/dL Glucose 107 H (74-99) mg/dL POC Glucose (mg/dL) 113 H (75-99) mg/dL Calcium 7.5 L (8.4-10.2) mg/dL Ferritin (22.0-322.0) ng/mL AST 120 H (17-59) U/L ALT 964 H (4-49) U/L Total Protein 3.8 L (6.3-8.2) g/dL Albumin 2.0 L (3.5-5.0) g/dL 12/14/20 Range/Units 08:43 WBC (3.8-10.6) k/uL RBC (4.30-5.90) m/uL Hgb (13.0-17.5) gm/dL Hct (39.0-53.0) % RDW (11.5-15.5) % Plt Count (150-450) k/uL Neutrophils # (Manual) (1.3-7.7) k/uL Metamyelocytes # (Man) (0) k/uL Nucleated RBCs (0-0) /100 WBC ABG pCO2 (35-45) mmHg ABG pO2 (83-108) mmHg ABG HCO3 (21-25) mmol/L ABG Total CO2 (19-24) mmol/L Sodium (137-145) mmol/L Chloride (98-107) mmol/L Carbon Dioxide (22-30) mmol/L BUN (9-20) mg/dL Creatinine (0.66-1.25) mg/dL Glucose (74-99) mg/dL POC Glucose (mg/dL) 114 H (75-99) mg/dL Calcium (8.4-10.2) mg/dL Ferritin (22.0-322.0) ng/mL AST (17-59) U/L ALT (4-49) U/L Total Protein (6.3-8.2) g/dL Albumin (3.5-5.0) g/dL Microbiology - Last 24 Hours (Table) 12/07/20 10:06 Blood Culture - Final Blood No Growth after 144 hours
[2020-12-14] MEDS: ALBUTEROL HFA INHALER INHALATION PRN ×2 (16:30→20:20)
[2020-12-14 16:54] LABS: Glucose,Whole Blood 148 mg/dL (75-99)
[2020-12-14 20:18] LABS: Glucose,Whole Blood 151 mg/dL (75-99)
[2020-12-14 23:56] LABS: Glucose,Whole Blood 121 mg/dL (75-99)
[2020-12-15 04:09] LABS: Glucose,Whole Blood 106 mg/dL (75-99)
[2020-12-15] MEDS: ARTIFICIAL TEARS-HYPROMELLOSE DROPS 15 ML BTL BOTH EYES SCH ×5 (04:13→20:22)
[2020-12-15] MEDS: INSULIN ASPART (NovoLOG) 100 UNIT/ML VIAL SQ SCH ×5 (04:13→20:22)
[2020-12-15 04:40] LABS: Albumin 2.1 g/dL (3.5-5.0); Calcium 7.8 mg/dL (8.4-10.2); Total Bilirubin 0.8 mg/dL (0.2-1.3)
[2020-12-15 05:20] LABS: ABG Base Excess 16.1 mmol/L; ABG Oxygen Saturation 97.8 % (94-97); ABG PCO2 54 mmHg (35-45); ABG PH 7.47 (7.35-7.45); ABG PO2 86 mmHg (83-108); ABG TCO2 41 mmol/L (19-24); Allen Test Performed? Yes
[2020-12-15 05:23] LABS: ABG HCO3 40 mmol/L (21-25)
[2020-12-15 05:28] LABS: Anisocytosis Slight; HCT 23.7 % (39.0-53.0); HGB 7.9 gm/dL (13.0-17.5); MCH 30.1 pg (25.0-35.0); MCHC 33.2 g/dL (31.0-37.0); MCV 90.9 fL (80.0-100.0); Mean Platelet Volume 13.7; Platelet Count 24 k/uL (150-450); Poikilocytosis Slight; RBC 2.61 m/uL (4.30-5.90); RDW 19.9 % (11.5-15.5)
[2020-12-15] MEDS: INSULIN DETEMIR (LEVEMIR) 100 UNIT/ML SYR SQ SCH ×2 (06:12→22:28)
[2020-12-15 06:46] LABS: Lymphocytes # (M) 1.11 k/uL (1.0-4.8); Neutrophils # (M) 8.59 k/uL (1.3-7.7); Neutrophils % (M) 85 %; Nucleated Red Blood Cells 8 /100 WBC (0-0); Total Cells Counted 100; WBC 10.1 k/uL (3.8-10.6)
[2020-12-15 06:47] LABS: Anisocytosis (M) Present; Polychromasia Present
--- NOTE | 2020-12-15 07:17 | XR ---
EXAMINATION TYPE: XR chest 1V portable DATE OF EXAM: 12/15/2020 COMPARISON: Chest x-ray 12/14/2020 HISTORY: Covid pneumonia TECHNIQUE: Single frontal view of the chest is obtained. FINDINGS: Endotracheal tube and NG tube, right subclavian central venous catheter are stable and ove rlying appropriate positions. Bilateral patchy groundglass opacity, prominence interstitium again see n. There are overlying artifacts. No evident pneumothorax or pleural effusion. Cardiac mediastinal si lhouette is stable. IMPRESSION: Findings consistent with patient's history of pneumonia.
--- NOTE | 2020-12-15 07:54 | P.PN ---
Subjective Patient is seen in follow-up for acute kidney injury. Renal function better. Nonoliguric. On IV Lasix. Intubated. On 50% FiO2. Vital signs are stable. HEENT: Intubated. LUNGS: Breath sounds decreased. HEART: Regular rhythm. ABDOMEN: Soft, obese. EXTREMITITES: 2+ edema. Scrotal edema noted. Objective - Vital Signs Vital signs: Vital Signs Temp 98.2 F 12/15/20 04:00 Pulse 97 12/15/20 07:00 Resp 38 H 12/15/20 07:00 BP 118/67 12/15/20 01:00 Pulse Ox 96 12/15/20 07:00 Intake & Output 12/14/20 12/15/20 12/15/20 18:59 06:59 18:59 Intake Total 1085.250 3285 68 Output Total 2836 5285 200 Balance -1562.158 -4239 -132 Weight 131.8 kg 123 kg Intake: IV 276 276 23 .9 KVO 240 240 20 Normal Saline Pressure 36 36 3 Bag @ 3mL/hr Intake, IV Titration 297.842 200 Amount fentaNYL (PF). 1,000 mcg 97.842 In Sodium Chloride 0.9% 80 ml @ 0.25 MCG/KG/HR 3. 37 mls/hr IV .Q24H [facility] Rx #:[id number] propofoL 1,000 mg In 200.000 200 Empty Bag 1 bag @ Titrate IV .Q0M [facility] Rx#: [id number] Oral 100 Tube Feeding 540 540 45 Other 60 30 Output: Urine 2835 5285 200 Stool 1 Other: Voiding Method Indwelling Catheter Indwelling Catheter ABP, PAP, CO, CI - Last Documented Arterial Blood Pressure 141/59 - Labs CBC & Chem 7: 12/15/20 04:00 12/15/20 04:00 Labs: Abnormal Lab Results - Last 24 Hours (Table) 12/14/20 12/14/20 12/14/20 Range/Units 08:43 16:52 20:16 RBC (4.30-5.90) m/uL Hgb (13.0-17.5) gm/dL Hct (39.0-53.0) % RDW (11.5-15.5) % Plt Count (150-450) k/uL Neutrophils # (Manual) (1.3-7.7) k/uL Nucleated RBCs (0-0) /100 WBC ABG pH (7.35-7.45) ABG pCO2 (35-45) mmHg ABG HCO3 (21-25) mmol/L ABG Total CO2 (19-24) mmol/L ABG O2 Saturation (94-97) % Sodium (137-145) mmol/L Chloride (98-107) mmol/L Carbon Dioxide (22-30) mmol/L BUN (9-20) mg/dL Creatinine (0.66-1.25) mg/dL POC Glucose (mg/dL) 114 H 148 H 151 H (75-99) mg/dL Calcium (8.4-10.2) mg/dL AST (17-59) U/L ALT (4-49) U/L Total Protein (6.3-8.2) g/dL Albumin (3.5-5.0) g/dL 12/14/20 12/15/20 12/15/20 Range/Units 23:54 04:00 04:00 RBC 2.61 L (4.30-5.90) m/uL Hgb 7.9 L (13.0-17.5) gm/dL Hct 23.7 L (39.0-53.0) % RDW 19.9 H (11.5-15.5) % Plt Count 24 L (150-450) k/uL Neutrophils # (Manual) 8.59 H (1.3-7.7) k/uL Nucleated RBCs 8 H (0-0) /100 WBC ABG pH (7.35-7.45) ABG pCO2 (35-45) mmHg ABG HCO3 (21-25) mmol/L ABG Total CO2 (19-24) mmol/L ABG O2 Saturation (94-97) % Sodium 148 H (137-145) mmol/L Chloride 108 H (98-107) mmol/L Carbon Dioxide 39 H (22-30) mmol/L BUN 92 H (9-20) mg/dL Creatinine 1.89 H (0.66-1.25) mg/dL POC Glucose (mg/dL) 121 H (75-99) mg/dL Calcium 7.8 L (8.4-10.2) mg/dL AST 89 H (17-59) U/L ALT 699 H (4-49) U/L Total Protein 4.0 L (6.3-8.2) g/dL Albumin 2.1 L (3.5-5.0) g/dL 12/15/20 12/15/20 Range/Units 04:08 05:15 RBC (4.30-5.90) m/uL Hgb (13.0-17.5) gm/dL Hct (39.0-53.0) % RDW (11.5-15.5) % Plt Count (150-450) k/uL Neutrophils # (Manual) (1.3-7.7) k/uL Nucleated RBCs (0-0) /100 WBC ABG pH 7.47 H (7.35-7.45) ABG pCO2 54 H (35-45) mmHg ABG HCO3 40 H* (21-25) mmol/L ABG Total CO2 41 H (19-24) mmol/L ABG O2 Saturation 97.8 H (94-97) % Sodium (137-145) mmol/L Chloride (98-107) mmol/L Carbon Dioxide (22-30) mmol/L BUN (9-20) mg/dL Creatinine (0.66-1.25) mg/dL POC Glucose (mg/dL) 106 H (75-99) mg/dL Calcium (8.4-10.2) mg/dL AST (17-59) U/L ALT (4-49) U/L Total Protein (6.3-8.2) g/dL Albumin (3.5-5.0) g/dL Assessment and Plan Plan: Assessment: 1. Acute kidney injury secondary to ATN secondary to septic shock. Baseline creatinine near 1 and peaked at 2.9 on this admission - 1.89 today. Nonoliguric. No hydronephrosis was noted. 2. Hyperkalemia secondary to acute kidney injury and metabolic acidosis. Impr tona with medical management. 3. Metabolic acidosis secondary to acute kidney injury. Resolved. 4. Septic shock secondary to COVID-19 infection. Off vasopressors. 5. Acute hypoxic respiratory failure. 6. Volume overload. 7. A. fib with RVR on oral amiodarone. 8. Hypernatremia due to free water diuresis. 9. Metabolic alkalosis secondary to diuresis. Plan: Maintain IV Lasix. IV Diamox added this morning. Increase free water flushes to 400 mL every 6 hours. Wean FiO2. Avoid nephrotoxins. Continue to monitor renal function and urine output
[2020-12-15] MEDS: ALBUTEROL HFA INHALER INHALATION PRN ×2 (07:58→20:32)
--- NOTE | 2020-12-15 10:17 | P.PN ---
Subjective Progress Note Date: 12/15/20 Principal diagnosis: GI bleed Patient remains stable on the ventilator. Hemoglobin is stable at 7.9. Platelets are 24. No signs of GI bleeding per nursing staff. Objective - Vital Signs Vital signs: Vital Signs Temp 98.2 F 12/15/20 04:00 Pulse 97 12/15/20 07:00 Resp 38 H 12/15/20 07:00 BP 118/67 12/15/20 01:00 Pulse Ox 96 12/15/20 07:00 Intake & Output 12/14/20 12/15/20 12/15/20 18:59 06:59 18:59 Intake Total 5175.427 7864 68 Output Total 2836 5285 200 Balance -1562.158 -4239 -132 Weight 131.8 kg 123 kg Intake: IV 276 276 23 .9 KVO 240 240 20 Normal Saline Pressure 36 36 3 Bag @ 3mL/hr Intake, IV Titration 297.842 200 Amount fentaNYL (PF). 1,000 mcg 97.842 In Sodium Chloride 0.9% 80 ml @ 0.25 MCG/KG/HR 3. 37 mls/hr IV .Q24H [facility] Rx #:[id number] propofoL 1,000 mg In 200.000 200 Empty Bag 1 bag @ Titrate IV .Q0M [facility] Rx#: [id number] Oral 100 Tube Feeding 540 540 45 Other 60 30 Output: Urine 2835 5285 200 Stool 1 Other: Voiding Method Indwelling Catheter Indwelling Catheter ABP, PAP, CO, CI - Last Documented Arterial Blood Pressure 141/59 - Exam Abdomen: Soft, nontender, nondistended - Labs CBC & Chem 7: 12/15/20 04:00 12/15/20 04:00 Labs: Abnormal Lab Results - Last 24 Hours (Table) 12/14/20 12/14/20 12/14/20 Range/Units 16:52 20:16 23:54 RBC (4.30-5.90) m/uL Hgb (13.0-17.5) gm/dL Hct (39.0-53.0) % RDW (11.5-15.5) % Plt Count (150-450) k/uL Neutrophils # (Manual) (1.3-7.7) k/uL Nucleated RBCs (0-0) /100 WBC ABG pH (7.35-7.45) ABG pCO2 (35-45) mmHg ABG HCO3 (21-25) mmol/L ABG Total CO2 (19-24) mmol/L ABG O2 Saturation (94-97) % Sodium (137-145) mmol/L Chloride (98-107) mmol/L Carbon Dioxide (22-30) mmol/L BUN (9-20) mg/dL Creatinine (0.66-1.25) mg/dL POC Glucose (mg/dL) 148 H 151 H 121 H (75-99) mg/dL Calcium (8.4-10.2) mg/dL AST (17-59) U/L ALT (4-49) U/L Total Protein (6.3-8.2) g/dL Albumin (3.5-5.0) g/dL 12/15/20 12/15/20 12/15/20 Range/Units 04:00 04:00 04:08 RBC 2.61 L (4.30-5.90) m/uL Hgb 7.9 L (13.0-17.5) gm/dL Hct 23.7 L (39.0-53.0) % RDW 19.9 H (11.5-15.5) % Plt Count 24 L (150-450) k/uL Neutrophils # (Manual) 8.59 H (1.3-7.7) k/uL Nucleated RBCs 8 H (0-0) /100 WBC ABG pH (7.35-7.45) ABG pCO2 (35-45) mmHg ABG HCO3 (21-25) mmol/L ABG Total CO2 (19-24) mmol/L ABG O2 Saturation (94-97) % Sodium 148 H (137-145) mmol/L Chloride 108 H (98-107) mmol/L Carbon Dioxide 39 H (22-30) mmol/L BUN 92 H (9-20) mg/dL Creatinine 1.89 H (0.66-1.25) mg/dL POC Glucose (mg/dL) 106 H (75-99) mg/dL Calcium 7.8 L (8.4-10.2) mg/dL AST 89 H (17-59) U/L ALT 699 H (4-49) U/L Total Protein 4.0 L (6.3-8.2) g/dL Albumin 2.1 L (3.5-5.0) g/dL 12/15/20 Range/Units 05:15 RBC (4.30-5.90) m/uL Hgb (13.0-17.5) gm/dL Hct (39.0-53.0) % RDW (11.5-15.5) % Plt Count (150-450) k/uL Neutrophils # (Manual) (1.3-7.7) k/uL Nucleated RBCs (0-0) /100 WBC ABG pH 7.47 H (7.35-7.45) ABG pCO2 54 H (35-45) mmHg ABG HCO3 40 H* (21-25) mmol/L ABG Total CO2 41 H (19-24) mmol/L ABG O2 Saturation 97.8 H (94-97) % Sodium (137-145) mmol/L Chloride (98-107) mmol/L Carbon Dioxide (22-30) mmol/L BUN (9-20) mg/dL Creatinine (0.66-1.25) mg/dL POC Glucose (mg/dL) (75-99) mg/dL Calcium (8.4-10.2) mg/dL AST (17-59) U/L ALT (4-49) U/L Total Protein (6.3-8.2) g/dL Albumin (3.5-5.0) g/dL Assessment and Plan (1) GI bleed Narrative/Plan: 60-year-old male with GI bleeding and thrombocytopenia. Continue to monitor hem oglobin and platelet level carefully. We'll follow. Current Visit: Yes Status: Acute Code(s): K92.2 - GASTROINTESTINAL H EMORRHAGE, UNSPECIFIED SNOMED Code(s): 71899770
[2020-12-15] MEDS: ASCORBIC ACID 500 MG TAB PO SCH ×2 (10:33→22:28)
[2020-12-15] MEDS: CHOLECALCIFEROL 25 MCG (1000 IU) TABLET PO SCH (10:33)
[2020-12-15] MEDS: DEXAMETHASONE SOD PHOSPHATE 4 MG/ML 1 ML VIAL IV SCH (10:33)
[2020-12-15] MEDS: PANTOPRAZOLE 40 MG/10 ML VIAL IVP SCH ×2 (10:34→22:28)
[2020-12-15] MEDS: AMIODARONE 200 MG TAB PO SCH ×2 (10:34→22:28)
[2020-12-15] MEDS: CHLORHEXIDINE GLUCONATE 15 ML CUP MUCOUS MEM SCH ×2 (10:34→22:28)
[2020-12-15] MEDS: ZINC SULFATE 220 MG CAP PO SCH (10:34)
--- NOTE | 2020-12-15 10:46 | P.PN ---
Subjective Progress Note Date: 12/15/20 This is a pleasant 60-year-old gentleman patient of Dr. Ridge Christina. He doesn't see a physician often and does not note any medical diseases, except for obesity. He comes seen secondary to fever and chills, cough, starting December 06 first, along with muscle aches, lack of appetite and diarrhea. he was tested for call bid November 08, which required at week of reporting, subsequently was sent to emergency room secondary to worsening symptoms, including dyspnea on exertion, shortness of breath and worsening cough without hemoptysis. Fever, shortness of breath lingers, no treatment given to him prior to this admission. The is vaccinated, but the patient is not. He does not believe in vaccines at that time. He comes in the emergency room, with hypoxemia, with very minimal conversatio nal dyspnea, chest x-ray, shows pulmonary infiltrate consistent with Covid pneumonia, oxygen currently is at 6 L nasal cannula, d-dimer was 0.6, LFTs are minimally elevated, 64 AST, lactic acid 2.0 sodium 132, creatinine of 0.9, glucose of 122, LDH of 888, CRP of 5.7. Urine protein noted, without hematuria or proteinuria. Covid was again retested 11/14, PCR is positive. Consult to Dr. Eduardo and pulmonary,, 11/16: Patient is currently on oxygen at 6 L nasal cannula increased to 7 L with humidified oxygen. Patient seen and followed by pulmonary medicine and has been started on Bariticinib, Decadron 6 mg daily, and prophylactic dose of Lovenox. He is reaching 1750 on incentive spirometry. Patient did have episode of diarrhea yesterday, none today and complains of decreased appetite. Patient complains of nasal congestion and Flonase added. 11/17: Patient had difficulty with oxygenation during the night and this morning transitioned to Airfo and partial nonrebreather. Pulse ox is currently running 90-92%, patient is prone. He has been afebrile, heart rate 88, blood pressure 104/63. Repeat d-dimer is elevated at 0.93. Blood sugar 167. C-reactive protein increased to 5.3. AST is 83 and ALT 51. Blood culture remains with no growth after 48 hours. Repeat chest x-ray reveals mild cardiomegaly with bilateral multifocal opacities consistent with Covid 19 infection. No sig nificant change from most recent x-ray. Albuterol inhaler and Symbicort inhaler added. 11/18: Patient is currently on AirVo and nonrebreather with pulse ox of 93%. He's been afebrile, heart rate 85, blood pressure 103/68. Blood culture no growth at 72 hours 2 specimens. Plan to continue proning. Repeat laboratory studies ordered for tomorrow including inflammatory markers. The patient is reis ving difficulty sleeping and melatonin added. Lovenox increased to twice daily dosing. 11/19: Patient remains in isolation. He is on AirVO plus nonrebreather with pulse ox of 93%. He has been afebrile, heart rate 85, blood pressure 122/69. Patient is found sitting in recliner and encouraged to prone when he is able to. Repeat blood work reveals WBC 12, hemoglobin 14.8, platelet count 282. D-dimer is 1.38. Other blood work is pending. Patient is continued on Decadron, vitamin supplements, Lovenox. He is on day #07/20 of Baricitinib. 11/20: Patient has been afebrile, heart rate 71, blood pressure 107/71, pulse ox 88-93% on AirVo plus nonrebreather. Patient seems to be depressed and fr ustrated with coarse. Noted that he started on Xanax yesterday by pulmonary. We will add and Remeron 7.5 mg at bedtime. Hemoglobin A1c came back at 6.4. Patient is encouraged to use incentive spirometry, increase activity, prone. Discussed CODE STATUS with patient and he wishes to be a full code. 11/21: Patient will pulse ox of 83% as he was on Airvo only and once nonrebreather was placed she went up to 89%. Patient is not eating much. He has been encouraged to take protein supplement, increase activity and prone but patient does not seem motivated. He was started on Remeron last night which will hopefully help with his mood and appetite. He has continued on Lovenox, dexamethasone, Baricitinib #09/19 repeat blood work reveals WBC 14.3. D-dimer increasing to 3.2. Electrolytes normal, creatinine 0.76. LDH is high at 1476, C-reactive protein stable 6.6. 11/22: Patient continues to be on airflow and nonrebreather and with minimal movement, pulse ox drops down to 82%, otherwise patient is maintaining 92-94%. One dose of IV Lasix ordered for today. Temperature max yesterday afternoon was 101.2. Heart rate in the 70s and 80s. Blood pressure 110/59. Urinalysis was negative for infection. Repeat blood work will be ordered for tomorrow. 11/23: Patient Was moved into ICU overnight. He has been on BiPAP through the night and pulse oxing 95% recently on his side, currently sitting on the edge of the bed pulse oxing 90%, with talking he drops to 83%. He is scheduled for PICC line insertion and plan to start TPN today. Patient has been afebrile, heart rate in the 60s, respiratory rate 28. WBC 12.0, hemoglobin 15, platelet count 351. Lymphocytes 11.1. D-dimer 2.46. Sodium 136, otherwise electrolytes are normal. BUN 30 creatinine 0.7. Blood sugar 128. Magnesium 2.5. Phosphorus 5.5. LDH 1691. C-reactive protein 13.4. Total protein 5.6. Blood cultures remain with no growth. Repeat chest x-ray this morning reveals stable diffuse bilateral infiltrates. Patient is on Baricitinib 10/20. Pulmonary has increased frequency of dexamethasone to twice daily and changed to IV6 mg IV twice daily. 11/24: Patient remain in the ICU, still on BiPAP with pulse ox is improving at this point. Continue dexamethasone and Baricitinib 11/20, patient had full meal this morning his TPN will be suspended after today. Patient will remain in the ICU at least for the next 48 hours. 11/25: Remain in the ICU still on BiPAP but his pulse ox is slightly bit better he still on dexamethasone and Baricitinib 12/20 seems to do slightly but better was agreed by intensive care studies TPN, patient oral intake is slightly but better and had slight improvement compared to yesterday. Surprisingly his marker went up slightly bit specially his LDH up to 2086 with C-reactive protein 3.6 kidney function remained good white blood cell climb up to 15.1 specially been on steroid. Chest x-ray still shows diffuse bilateral interstitial infiltrate and patchy opacification persistent but there is a slight improvement in the variation in the left lower lobe compared to few days earlier. 11/26: Patient remain on BiPAP with 100% oxygen to keep his pulse ox around 92 percentile, his d-dimer continue to be quite bit elevated today is having Doppler of the lower extremity but notes CT at this point. Remain on Symbicort, and albuterol HFA, his white blood cell is down 17,000, blood sugars better control. Chest x-ray still showed patchy infiltrate throughout both lung felix persistent didn't change. Patient had mild anxiety with no pain currently. 11/27: Patient remains in the intensive care unit. He is placed on airflow for eating and pulse ox drops to the 7083 percent range. Pulse ox 90-93% on100% BiPAP. He is afebrile, heart rate in the 70s, respiratory rate 27 and 32, blood pressure 102/71. WBC 21.5, lymphocytes 0.6. D-dimer 7.29. Blood sugars running between 111 and 171. Ferritin level [id number]. ALT 54, alkaline phosphatase 152. CK 27, C-reactive protein 2.9. Repeat chest x-ray reveals borderline cardiomegaly with prominent pulmonary vascular markings. Diffuse increased lung markings are present. Correlate for heart failure. Atypical pneumonia should be considered. Lower extremity ultrasound negative for DVT bilaterally. 11/28: Patient remains in the intensive care unit and found sitting in a chair at the bedside. He is continued on BiPAP and switched over to Arava and nonrebreather for meals. Repeat chest x-ray essentially unchanged. Repeat blood work reveals WBC 20.4, hemoglobin 14.8, platelet count 130. Sodium 134, potassium 4.8, creatinine 0.62. LDH 2934. C-reactive protein 3.3, d-dimer 10.2. CT angiogram of the chest has been ordered by pulmonary medicine which revealed slightly suboptimal study without evidence of acute pulmonary embolism. Mild cardiomegaly with bilateral cities and multifocal organizing consolida tions consistent with Covid19 infection. Lovenox has been changed to 40 mg daily and dexamethasone changed to Solu-Medrol 60 mg every 6 hours. Patient has completed course of Baricitinib. 11/29: Patient remains in the intensive care unit, patient is utilizing BiPAP and also Airvo with nonrebreather mask added at times as he tolerates. His oxygenation seems to be improving at 89-93%. Respiratory rate 24, heart rate 88, blood pressure 107/58. Patient does verbalize that he is feeling somewhat better today. WBC 16.4, hemoglobin 15.1, platelet count 120. D-dimer 13.49, C- reactive protein 2, LDH 2086, CK 47. Repeat chest x-ray reveals correlate for pneumonia, edema or pulmonary hemorrhage, there is cardiomegaly. Patient is currently continued on Lovenox, Solu-Medrol, bronchodilators and vitamin supplements. 11/30: Patient remains in intensive care unit, he sitting in a chair at the bedside. He is feeling a little bit better and breath sounds are sounding a little better from yesterday. He is currently on AirVO. Pulse ox is running 84-87%, he has been afebrile, heart rate in the 80s and 90s, respiratory rate in the 20s, blood pressure 110/67. Repeat blood work reveals WBC 19.4, platelet count 126. D-dimer 10.2, LDH 2157, CK 78, C-reactive protein 1.5. Sodium 135, BUN 44 creatinine 0.73. Patient is continued on Lovenox, IV Solu-Medrol, bronchodilators and supplements. 12/01: Patient remains in ICU, he is currently sitting in chair at the bedside. Patient continues to state that he feels a bit better breath sounds are sounding better compared to yesterday. He is currently on airflow. His pulse ox is running 87-89%, he is still short of breath with conversation. Patient has been afebrile, heart rate 72, respirations 28, blood pressure 109/61. WBC 16.0, hemog lobin 15.1, platelets 112, potassium 4.6, BUN 39, creatinine 0.84. Patient is continued on Lovenox, IV Solu-Medrol, bronchodilators and supplements. 12/02: Patient remains in ICU, he is currently sitting up in a chair at the bedside. Patient continues to have shortness of breath with activity and conversation. His chest x-ray unchanged to prior studies. D-dimer 5.96. Incentive spirometer is at the bedside however encouragement to utilize if needed. Patient has been afebrile, heart rate 85, respirations 28, blood pressure 138/86 pulse ox is 85-89% on Airvo. 12/03, patient remains ICU, he seems to be gradually improving, intending around for the better, has improvement on shortness of breath with conversation, nothing supple she did today for dyspnea, however with movement, he does have shortness of breath while in bed turning around. Patient has an airflow at 65 L, pulse ox 90%. No new fevers, no melena and hematochezia, nutrition is appropriate, and is getting better. 12/04: Patient remains in the intensive care unit. He is onAirVo with nonrebreather mask on standby. He did have a rise in his heart rate up to the 140s, atrial fibrillation with RVR and pulmonary has started the patient on amiodarone drip. He has been afebrile, respiratory rate 28, pulse ox 94-97%. WBC 18.7, hemoglobin 15.5, platelet count 131. Sodium 134, potassium 4.5, chloride 99, CO2 31, BUN 32 and creatinine 0.72. Blood sugars are running between 144 and 193. AST 71, ALT 283, alkaline phosphatase 82. LDH 1946, C- reactive protein 0.6. D-dimer 4.21. Repeat chest x-ray reveals worsening b ilateral diffuse interstitial and patchy airspace disease. 12/05: Patient has been taken out of isolation by infection control. He is now on AirVo, FiO2 at 75%. He does have nonrebreather mask on standby but oxygen needs seem to be improving slightly. He seems to be slightly less short of breath. Nephrology has switched him to oral prednisone and off Solu-Medrol. Patient is on eliquis for atrial fibrillation. Heart rate is currently controlled and he has been afebrile. Amiodarone has been discontinued, echocardiogram ordered. Pulse ox is 88%, afebrile, blood pressure 111/72 and heart rate in the 80s. desk monitor sinus rhythm. Repeat blood work reveals WBC 20.4, hemoglobin 15.2, platelet count 109. Sodium 135, potassium 4.9, chloride 100, CO2 33, BUN 46 and creatinine 0.84. Blood sugars are running between 133 and 231. LDH 1616. 12/06: Patient had difficult is sleeping last night despite use of Remeron and having back pain issues. Tramadol at bedtime ordered. Patient remains in the intensive care unit, he has been moved out of isolation. He continues to be on airflow with pulse ox in the 80s. Blood pressure is soft this morning 85/53 and 92/67 for which fluid bolus of 500 ML's ordered. He's been afebrile, heart rate in the 80s. desk monitor sinus rhythm. Metoprolol was increased to 25 mg twice daily. Echocardiogram reveals EF of 50-55%. 12/07: She remains in intensive care unit but is doing poorly this morning. He had a large bright red and mostly dark stool last evening and a repeat this morning. Eliquis has been placed on hold, he is very quite vasopressors and started on levo. He is on Protonix 40 mg IV push twice daily. He is scheduled to receive 2 units of packed RBCs for drop in his hemoglobin to 9.4. He is currently receiving 2 L IV fluid bolus. Stool for occult blood was positive. Consult was added for Dr. Ojeda. He is currently on BiPAP at 100% with pulse ox of 100%, heart rate 104, respiratory rate 27, blood pressure 88/51. Other blood work today reveals WBC of 22.6, platelet count of 94. Creatinine 0.82 with BUN of 64. Blood sugars 173. Lactic acid 2.9. INR is 1.5, PTT 25.5, AST 69, ALT 200, LDH 1474. Alkaline phosphatase 57 urinalysis negative for infection. Patient had a previous colonoscopy with Dr. Reyes that was normal. 12/08: Yesterday, patient required intubation was placed on mechanical ventilation after becoming more hypotensive started on vasopressin and norepinephrine and status post 7 L of IV fluid. He is status post transfusion of a total of 4 units of packed RBCs and hemoglobin is currently at 7.8. He has had no further episodes of GI bleeding. Consult with nephrology has been added, potassium came back at 6.5 CAT scan of the abdomen and chest revealed pulmonary edema which is slightly improved. Evidence of new posterior pneumomediastinum, air around the lower thoracic esophagus. Decreased excretion of delayed images small amount of abdominal ascites. No bowel obstruction. Chest x-ray reveals low lung volume with bilateral multifocal and confluent opacities consistent with COVID-19. Patient was seen yesterday by general surgery and patient was tentatively scheduled for EGD and colonoscopy on 12/10: She remains intubated and on mechanical ventilation with tidal volume 375, FiO2 60, PEEP of 14. Patient went into A. fib with RVR uncontrolled status post bolus of amiodarone and fluid bolus, shock 3 without conversion and is current ly at 140 bpm. He remains on norepinephrine and vasopressin but on lower doses. He is also on Nimbex and propofol. Patient is not on anticoagulation at this point due to GI bleed. Patient has been afebrile, respiratory rate 38, but pressure 86/51, pulse ox 97%. Repeat blood work reveals WBC 21.2, hemoglobin 8.5, platelet count 45. BUN 74 creatinine 2.42. Blood sugars running in the 200s and Levemir 10 units twice daily added along with scale. Magnesium 1.7. AST 2912, ALT 5134. Chest x-ray reveals low lung volumes with bilateral multifocal and confluent opacities consistent with Covid 19. 12/10: She remains intubated and on mechanical ventilation with tidal volume 375, FiO2 60, PEEP of 12. Heart rate is anywhere from 115 to 130 in a fib. Patient was off vasopressor and Levophed for blood pressure dropped this morning is back on levo fed. He has had good urine output. He is also on Nimbex, propofol and fentanyl drips. He has had no further bloody tarry stools., WBC 27.1, platelet count 232. BUN 86 and creatinine 2.91. Patient is on tube feedings. EGD and colonoscopy are on hold until patient is medically stable. Patient's is at bedside and all questions have been answered. 12/11: Patient remains intubated and on mechanical ventilation with tidal volume 375, FiO2 60, peep 12. One dose of IV Lasix 40 this am. Continues in afib rvr. Patient is to be weaned off pressors today. Medication changes have been made. He is on to prevent, Nimbex and continues on amiodarone drip. Plan is for sedation holiday if patient does well. He has had good urine output. His had no bowel movement since the GI bleed. Tube feedings are to start. He has been afebrile, heart rate is running up to the 130s, blood pressure 104/63, pulse ox 94%. Blood sugars are well controlled with current regime. Leukocytosis is slowly improving at 23.4, hemoglobin today is 8.6, platelet count 27. BUN 93 and creatinine 2.78, potassium 4.4. Inflammatory markers: Ferritin 17,090, LDH 4086, CK 591, C-reactive protein 5.1, d-dimer 2.34. Repeat chest x-ray report is unchanged. 12/12: Patient remains in intensive care unit intubated on mechanical ventilation with tidal volume 375, FiO2 60 and PEEP of 12. Patient has converted to a sinus rhythm and appears to be quite comfortable on ventilator. He is currently on propofol, fentanyl. Patient has been started on tube feedings and is tolerating. No bloody stools. Repeat chest x-ray reveals diffuse infiltrate appears stable. Multiple lines. WBC 19.3, hemoglobin 8, platelet count 22. D- dimer 2.64. BUN 99 creatinine 2.44. Blood sugars are running 130s 140s. Ferritin 12,375, total bilirubin 1.5, AST 273, ALT 1906, alkaline phosphatase 128, LDH 3869, CK 334, C-reactive protein 4.8. Patient is status post transfus ion of 1 unit of platelets. He has been continued on dexamethasone 4 mg IV daily, IV antibiotics in form of vancomycin, Zosyn was discontinued. Patient's is at the bedside all questions have been answered. 12/13: Patient remains in intensive care unit on mechanical ventilation with tidal volume 375, FiO2 55 and PEEP of 12. Patient is scheduled for a sedation holiday this afternoon. He has had good urine output. desk monitor sinus rhythm. Blood pressure 148/55 and heart rate in the 80s. Patient's and son are at the bedside. Repeat blood work reveals WBC 17.1, hemoglobin 7.4, platelet count 33. D-dimer 6.38. BUN 102 and creatinine 2.59. Blood sugars are running in the 1 teens and 126. Ferritin level 9362, LDH 3681, C-reactive protein 3.4. Patient is on oral amiodarone. Patient's been started on tube feedings. 12/14: Patient remains in the intensive care unit. Family members are at bedside. Patient did well with a 30 minute sedation holiday and propofol and fentanyl were decreased. He is currently on tidal volume 375, FiO2 50 and PEEP of 12. desk monitor is a sinus rhythm, heart rate 85, blood pressure 138/64, pulse ox 96%. Patient is ordered for 2 doses of Lasix per nephrology today and is diuresing well. He is on tube feedings and tolerating. He did have a small all movement but no blood. WBC 15, hemoglobin 7.6, platelet count 29. Sodium 146, potassium 3.9, chloride 111, CO2 33, BUN 95 and creatinine 2.11. Blood sugars are running 113-125. AST 120, ALT 964, alkaline phosphatase 122. 12/15: Patient remains in intensive care unit. Currently on tidal volume 375, FiO2 50 and a PEEP of 12. desk monitor is sinus rhythm, heart rate 97, blood pressure 141/59, pulse ox saturation is 96%. Patient is currently on tube feedings and tolerating well. WBC 10.1, hemoglobin 7.9, platelets 24, sodium 148, potassium 4.0, carbon dioxide 39, BUN 92, creatinine 1.89. Blood sugars ranging 106-121. REVIEW OF SYSTEMS Unable to obtain as patient is intubated and on mechanical ventilation PHYSICAL EXAMINATION Gen: This is a 60-year-old obese male in the ICU intubated and on mechanical ventilation and appears to be comfortable. HEENT: Head is atraumatic, normocephalic. Pupils equal, round. Sclerae is anicteric, conjunctiva edema. Oral ET and gastric tubes in place, to feedings in place. NECK: Supple. No JVD. No lymphadenopathy. No thyromegaly. LUNGS: Diminished with crackles in the bilateral bases. HEART: Regular rate and rhythm. No murmur. desk monitor is a sinus rhythm. ABDOMEN: obese. Soft. Bowel sounds are present. No masses. No tenderness. Amckenzie catheter draining clear frederick urine with good urine output. EXTREMITIES: His bilateral pedal edema. No calf tenderness. NEUROLOGICAL: Patient is sedated. ASSESSMENT AND PLAN 1. Acute respiratory failure: Secondary to COVID-19 requiring intubation and mechanical ventilation, with possible secondary bacterial pneumonia, pulmonary medicine, continue Ventolin inhaler, dexamethasone 4 mg IV daily,vitamin supplements. Patient is off Lovenox/eliquis due to GI bleed. 2. Sepsis (POA) secondary to COVID-19 pneumonia, with acute hypoxemic respiratory failure, diagnosis was of 11/08/2020. 3. Moderate protein calorie malnutrition secondary to poor oral intake. Oral gastric feedings. 4. New-onset atrial fibrillation with RVR, paroxysmal atrial fibrillation. Continue oral amiodarone 200 mg twice daily, Eliquis placed on hold due to GI bleed. Echocardiogram as above. 5. Thrombocytopenia secondary to sepsis. No anticoagulation due to thrombocytopenia, GI bleed. Transfusion of 1 unit of platelets. 6. Acute GI bleed with acute blood loss anemia. Maria Del Carmen placed on hold, 4 units packed RBCs, IV fluid boluses, consult with Dr. Ojeda appreciated. EGD and colonoscopy once patient is stabilized, Dr. Lester is following. 7. Acute hypovolemic shock or septic shock requiring vasopressors, massive IV fluid resuscitation. Patient is off vasopressors and blood pressure has been stable. 8. Acute kidney injury with ATN secondary to septic shock. Consult with ne phrology appreciated. Patient has had good urine output. IV Lasix 2 today. 9. Metabolic acidosis secondary to acute kidney injury. 10. Severe hyperkalemia secondary to acute kidney injury. Followed by nephrology. 11. Shock liver secondary to hypotension. Monitor liver function test. 12. DVT prophylaxis. 13. GI prophylaxis. Protonic. 14. BPH. Mackenzie catheter 15. Proteinuria, unknown cause. 16. Dymetabolic syndrome, monitor for hyperglycemia, A1c 6.4. NovoLog scale every 4 hours, added Levemir 12 units twice daily. 17. Back pain. CODE Status: Full code Prognosis: guarded. Impression and plan of care have been directed as dictated by the signing physician. Vandana Stoddard nurse practitioner acting as scribe for signing physician. Objective - Vital Signs Vital signs: Vital Signs Temp 98.2 F 12/15/20 04:00 Pulse 97 12/15/20 07:00 Resp 38 H 12/15/20 07:00 BP 118/67 12/15/20 01:00 Pulse Ox 96 12/15/20 07:00 Intake & Output 12/14/20 12/15/20 12/15/20 18:59 06:59 18:59 Intake Total 5507.881 9704 68 Output Total 2836 5285 200 Balance -1562.158 -4239 -132 Weight 131.8 kg 123 kg Intake: IV 276 276 23 .9 KVO 240 240 20 Normal Saline Pressure 36 36 3 Bag @ 3mL/hr Intake, IV Titration 297.842 200 Amount fentaNYL (PF). 1,000 mcg 97.842 In Sodium Chloride 0.9% 80 ml @ 0.25 MCG/KG/HR 3. 37 mls/hr IV .Q24H [facility] Rx #:[id number] propofoL 1,000 mg In 200.000 200 Empty Bag 1 bag @ Titrate IV .Q0M [facility] Rx#: [id number] Oral 100 Tube Feeding 540 540 45 Other 60 30 Output: Urine 2835 5285 200 Stool 1 Other: Voiding Method Indwelling Catheter Indwelling Catheter ABP, PAP, CO, CI - Last Documented Arterial Blood Pressure 141/59 - Labs CBC & Chem 7: 12/15/20 04:00 12/15/20 04:00 Labs: Abnormal Lab Results - Last 24 Hours (Table) 12/14/20 12/14/20 12/14/20 Range/Units 16:52 20:16 23:54 RBC (4.30-5.90) m/uL Hgb (13.0-17.5) gm/dL Hct (39.0-53.0) % RDW (11.5-15.5) % Plt Count (150-450) k/uL Neutrophils # (Manual) (1.3-7.7) k/uL Nucleated RBCs (0-0) /100 WBC ABG pH (7.35-7.45) ABG pCO2 (35-45) mmHg ABG HCO3 (21-25) mmol/L ABG Total CO2 (19-24) mmol/L ABG O2 Saturation (94-97) % Sodium (137-145) mmol/L Chloride (98-107) mmol/L Carbon Dioxide (22-30) mmol/L BUN (9-20) mg/dL Creatinine (0.66-1.25) mg/dL POC Glucose (mg/dL) 148 H 151 H 121 H (75-99) mg/dL Calcium (8.4-10.2) mg/dL AST (17-59) U/L ALT (4-49) U/L Total Protein (6.3-8.2) g/dL Albumin (3.5-5.0) g/dL 12/15/20 12/15/20 12/15/20 Range/Units 04:00 04:00 04:08 RBC 2.61 L (4.30-5.90) m/uL Hgb 7.9 L (13.0-17.5) gm/dL Hct 23.7 L (39.0-53.0) % RDW 19.9 H (11.5-15.5) % Plt Count 24 L (150-450) k/uL Neutrophils # (Manual) 8.59 H (1.3-7.7) k/uL Nucleated RBCs 8 H (0-0) /100 WBC ABG pH (7.35-7.45) ABG pCO2 (35-45) mmHg ABG HCO3 (21-25) mmol/L ABG Total CO2 (19-24) mmol/L ABG O2 Saturation (94-97) % Sodium 148 H (137-145) mmol/L Chloride 108 H (98-107) mmol/L Carbon Dioxide 39 H (22-30) mmol/L BUN 92 H (9-20) mg/dL Creatinine 1.89 H (0.66-1.25) mg/dL POC Glucose (mg/dL) 106 H (75-99) mg/dL Calcium 7.8 L (8.4-10.2) mg/dL AST 89 H (17-59) U/L ALT 699 H (4-49) U/L Total Protein 4.0 L (6.3-8.2) g/dL Albumin 2.1 L (3.5-5.0) g/dL 12/15/20 Range/Units 05:15 RBC (4.30-5.90) m/uL Hgb (13.0-17.5) gm/dL Hct (39.0-53.0) % RDW (11.5-15.5) % Plt Count (150-450) k/uL Neutrophils # (Manual) (1.3-7.7) k/uL Nucleated RBCs (0-0) /100 WBC ABG pH 7.47 H (7.35-7.45) ABG pCO2 54 H (35-45) mmHg ABG HCO3 40 H* (21-25) mmol/L ABG Total CO2 41 H (19-24) mmol/L ABG O2 Saturation 97.8 H (94-97) % Sodium (137-145) mmol/L Chloride (98-107) mmol/L Carbon Dioxide (22-30) mmol/L BUN (9-20) mg/dL Creatinine (0.66-1.25) mg/dL POC Glucose (mg/dL) (75-99) mg/dL Calcium (8.4-10.2) mg/dL AST (17-59) U/L ALT (4-49) U/L Total Protein (6.3-8.2) g/dL Albumin (3.5-5.0) g/dL
--- NOTE | 2020-12-15 12:42 | P.PN ---
Subjective Progress Note Date: 12/15/20 Principal diagnosis: Acute hypoxic respiratory failure secondary to COVID-19 pneumonia. On 12/10/2020 patient seen in follow-up in intensive care unit, he was intubated and placed on mechanical ventilator last Thursday on 12/07/2020. Patient at the time he has developed worsening hypoxic respiratory failure and acute GI blood loss anemia and Hemorrhagic shock requiring transfusion with 4 units of packed red blood cells, K Sentra infusion for reversal of Eliquis, and she was fluid resuscitated with a total of 7 L of fluid. At the same time she was intubated and placed on mechanical ventilator on which he remains today, he is currently on assist control mode of ventilation with a rate of 30, tidal M is 375, FiO2 of 60% and PEEP of 12. This morning's blood gas shows pO2 of 57, pCO2 of 53 a pH of 7.33, and this was on FiO2 of 60%. Patient has been weaned off the vasopressor support, his Levothroid and vasopressin have been off for over 24 hours, he is currently complaining of a rate of 75 ML per hour, amiodarone is at 0.5 mg per hour, and index is at 1 davon per kilo per minute, Diprivan is a 35 mics per kilo per minute. Patient has not had any further bleeding since yesterday. His chest x-ray shows continued bilateral diffuse airspace disease, with worsening at the left base. Patient is still tachycardic with a rate in the 140s BPM and what appears to be in sinus mechanism. Today's labs have been reviewed, showing improving white count which is down to 19.9, hemoglobin is 7.1, platelet count is 28, sodium is 140, potassium is 4.2, chloride is 111, CO2 is 28, BUN is 86, creatinine 2.91, and the patient's renal profile has slightly worsened since yesterday. His AST is improving and is down to 794 from 2912, ALT is 3274, improving, patient has not had a LDH and CRP done in the last 3 or 4 days. Cortisol level was 35 2 days ago, urinalysis without sign of infection, stool for occult blood was positive, his anticoagulation remains on hold. His PICC line has been removed, and catheter tip culture is pending at this time, all his blood and urine cultures have remained negative thus far. Patient remains on multivitamins, she remains on Decadron currently at 4 mg daily, he is on Protonix 40 mg twice daily, he remains on empiric antibiotics in the form of Zosyn and vancomycin. His urine output has been in the order of 45-50 ML per hour. Patient was reevaluated today on 12/11/2020, remains in the ICU, intubated and mechanically ventilated, sedated and paralyzed. Patient is on assist control rate of 38 tidal volume 375 FiO2 60% and PEEP is 12. ABG showed a pO2 of 58 pCO2 of 54 pH of 7.30. Peak airway pressure is 43 plateau pressure is 35. Drips include amiodarone at 0.5, Nimbex at 1, fentanyl at 25 mcg/kg/m, norepinephrine at 0.04 mcg/kg/m, and IV fluid at 50 mL per hour. Chest x-ray continues to show bilateral infiltrates, not much of a change overall. It is consistent with COVID-19 pneumonia. Labs include WBC count of 23.4 hemoglobin 8.6 platelets are low at 27,000, BUN of 93 creatinine 2.78. Inflammatory markers remain high including elevated LDH of 4 above 4000s CPK 591 and C- reactive protein 5.1 transaminases are high with ALT of 2759 and AST of 234 Medications include albuterol, amiodarone, vitamin C, Peridex, vitamin D3, Nimbex, Decadron 4 mg IV push daily, fentanyl, insulin, norepinephrine, Protonix, Zosyn, zinc. Patient is not on any anticoagulation therapy at this point because of his recent massive bleed requiring 5 units of packed RBCs, hemoglobin today is 8.6 Reevaluated today on12/12/2020, patient remains in the ICU, intubated and mechanically ventilated. Patient remains on assist control rate of 38 tidal volume to 75 FiO2 60% PEEP of 12 ABG today showed a pO2 of 70 pCO2 55 pH of 7.31. Patient remains on multiple drips including propofol and fentanyl, presently off Nimbex, may have to increase his propofol to 50 and fentanyl 2015 document per kilo per minute, and we will titrate dose again if the patient tolerates being off Nimbex. He is also on amiodarone drip at 0.5 mg/m. IV flui ds at KVO. He is receiving enteral feedings. He is to receive 1 unit of platelets today because of low platelets. And considering the patient had negative cultures and no specific positive cultures will discontinue antibiotics. Altogether. Chest x-ray continues to show bilateral infiltrates consistent with COVID-19 pneumonia. Medications are relatively unchanged as noted above, patient is not requiring any norepinephrine, and we have decided to discontinue Nimbex this morning. WBC count today is 19.3 hemoglobin is 8 d- dimer is 2.64. Basic metabolic profile is normal BUN is 99 creatinine 2.55, slightly improved liver enzymes remain elevated with AST of 273 ALT of 03/17/2005, LDH is down to 3869. Patient was reevaluated today on 12/13/2020, remains in the ICU, intubated and mechanically ventilated. Patient has been off Nimbex but maintained on propofol and fentanyl, and I'm hoping I could hold sedation narcotics today in order to assess his mental status if possible today. He is on assist control rate of 38 tidal volume 375 FiO2 55% PEEP of 12 ABG showed a pO2 of 69 pCO2 of 52 pH of 7.38. He is on fentanyl at 0.5 mcg/kg/h he is also on propofol at 35 mcg/kg/m. Patient is receiving tube feeding using vital AF at 45 mL per hour. Patient is on amiodarone at 0.5 mg/m, however I will discontinue amiodarone today and switch him to oral amiodarone via orogastric tube. Platelets remain low at 33,000, hence admitted to start the patient back on anticoagulation therapy. Patient remains on compression stockings. And his renal functioning is hovering around 2.59/creatinine. No more bleeding episodes over the last for 5 days. And not requiring any transfusions. He did get 1 unit of platelets yesterday. Asked x-ray continues to show bilateral infiltrates, not much of a change in his WBC count is 17.1 hemoglobin is 7.4. D-dimer is a bit elevated at 6.38. Electr olytes are normal LDH is coming down 3681 today compared to 4006 just couple of days ago C-reactive protein is 3.4. Patient was reevaluated today on 12/14/2020, remains in the intensive care unit, remains intubated and mechanically ventilated. Ventilator settings are assist control rate of 38 tidal volume 375 FiO2 50% PEEP is 12. ABG showed a pO2 of 78 pCO2 52 pH of 7.44 hence no ventilator changes were made. Drips-carranza the patient is on propofol at 30 mcg/kg/m fentanyl 0.5 mcg/kg/h off Nimbex. Receiving enteral feeding vital HF 45/45. Plan to offer the patient is sedation holiday today and hold sedation. Yesterday patient had sedation holiday, and according to the nurse his mental status was relatively appropriate. And he was following simple instructions. Labs today were reviewed, platelets are low again, no active bleeding. And I'm still holding restarting anticoagulation therapy on this patient. CBC showed WBC count is 15.0 hemoglobin is 7.6. Platelets are 29,000. Basic metabolic profile is relatively normal BUN is 95 creatinine down to 2.11 liver enzymes are improving, ALT is down to 964 LDH is also improving Chest x-ray continues to show bilateral interstitial infiltrates, slight improvement is noted Patient was reevaluated today on 12/15/2020, remains in the ICU, intubated and mechanically ventilated. Ventilator settings are assist control rate of 38 tidal volume of 375 FiO2 50% PEEP is 12 and I cut it down to 10. Peak airway pressure is 3 to plateau pressure is 27. Chest x-ray is showing slight improvement in his bilateral interstitial infiltrates. ABG showed a pO2 of 86 pCO2 54 pH of 7.47 hence his PEEP was cut down to 10 and kept him on 50% FiO2. Drips include fentanyl at 0.25 mg/kg/h and propofol at 25 mcg/kg/m. Patient remains on enteral feeding and his IV fluid is point tenderness saline at 20 mL per hour, patient is receiving free water via orogastric tube because of hyponatremia. Labs showed metabolic alkalosis, hence I'm changing his diuretics from Lasix to Diamox. Labs : WBC count is 10.1 hemoglobin is 7.9, platelets remained low at 24,000, and I'm recommending a unit of platelets to be given today. Electrolytes showed hyponatremia and elevated bicarb of 39 BUN is 92 creatinine 1.89, slightly improved. Objective - Vital Signs Vital signs: Vital Signs Temp 97.4 F L 12/15/20 12:00 Pulse 96 12/15/20 12:00 Resp 33 H 12/15/20 12:00 BP 118/67 12/15/20 01:00 Pulse Ox 97 12/15/20 12:00 Intake & Output 12/14/20 12/15/20 12/15/20 18:59 06:59 18:59 Intake Total 6483.764 7221 183 Output Total 2836 5285 1200 Balance -1562.158 -4239 -1017 Weight 131.8 kg 123 kg Intake: IV 276 276 138 .9 KVO 240 240 120 Normal Saline Pressure 36 36 18 Bag @ 3mL/hr Intake, IV Titration 297.842 200 Amount fentaNYL (PF). 1,000 mcg 97.842 In Sodium Chloride 0.9% 80 ml @ 0.25 MCG/KG/HR 3. 37 mls/hr IV .Q24H [facility] Rx #:[id number] propofoL 1,000 mg In 200.000 200 Empty Bag 1 bag @ Titrate IV .Q0M [facility] Rx#: [id number] Oral 100 Tube Feeding 540 540 45 Other 60 30 Output: Urine 2835 5285 1200 Stool 1 Other: Voiding Method Indwelling Catheter Indwelling Catheter ABP, PAP, CO, CI - Last Documented Arterial Blood Pressure 144/67 - Exam Gen: This is a 60-year-old obese male, intubated and mechanically ventilated. Sedated with fentanyl and propofol, remains off Nimbex HEENT: Head is atraumatic, normocephalic. [place], EOMI, nonicteric, no neck masses, no JVD. Endotracheal tube is intact. Mucous membranes are unremarkable. NECK: Supple. No JVD. No lymphadenopathy. No thyromegaly. LUNGS: Crackles at the bases persist, no rhonchi no wheezes. HEART: Regular rate and rhythm. No murmur. ABDOMEN: obese. Soft. Bowel sounds are present. No masses. No tenderness. EXTREMITIES: 3+ Bipedal edema is noted and there is also scrotal edema noted. Abdominal wall edema is also noted. NEUROLOGICAL: Good Not assess patient is sedated Psychiatric: Could not assess. Sedated . Skin: No rashes. - Labs CBC & Chem 7: 12/15/20 04:00 12/15/20 04:00 Labs: Abnormal Lab Results - Last 24 Hours (Table) 12/14/20 12/14/20 12/14/20 Range/Units 16:52 20:16 23:54 RBC (4.30-5.90) m/uL Hgb (13.0-17.5) gm/dL Hct (39.0-53.0) % RDW (11.5-15.5) % Plt Count (150-450) k/uL Neutrophils # (Manual) (1.3-7.7) k/uL Nucleated RBCs (0-0) /100 WBC ABG pH (7.35-7.45) ABG pCO2 (35-45) mmHg ABG HCO3 (21-25) mmol/L ABG Total CO2 (19-24) mmol/L ABG O2 Saturation (94-97) % Sodium (137-145) mmol/L Chloride (98-107) mmol/L Carbon Dioxide (22-30) mmol/L BUN (9-20) mg/dL Creatinine (0.66-1.25) mg/dL POC Glucose (mg/dL) 148 H 151 H 121 H (75-99) mg/dL Calcium (8.4-10.2) mg/dL AST (17-59) U/L ALT (4-49) U/L Total Protein (6.3-8.2) g/dL Albumin (3.5-5.0) g/dL 12/15/20 12/15/20 12/15/20 Range/Units 04:00 04:00 04:08 RBC 2.61 L (4.30-5.90) m/uL Hgb 7.9 L (13.0-17.5) gm/dL Hct 23.7 L (39.0-53.0) % RDW 19.9 H (11.5-15.5) % Plt Count 24 L (150-450) k/uL Neutrophils # (Manual) 8.59 H (1.3-7.7) k/uL Nucleated RBCs 8 H (0-0) /100 WBC ABG pH (7.35-7.45) ABG pCO2 (35-45) mmHg ABG HCO3 (21-25) mmol/L ABG Total CO2 (19-24) mmol/L ABG O2 Saturation (94-97) % Sodium 148 H (137-145) mmol/L Chloride 108 H (98-107) mmol/L Carbon Dioxide 39 H (22-30) mmol/L BUN 92 H (9-20) mg/dL Creatinine 1.89 H (0.66-1.25) mg/dL POC Glucose (mg/dL) 106 H (75-99) mg/dL Calcium 7.8 L (8.4-10.2) mg/dL AST 89 H (17-59) U/L ALT 699 H (4-49) U/L Total Protein 4.0 L (6.3-8.2) g/dL Albumin 2.1 L (3.5-5.0) g/dL 12/15/20 Range/Units 05:15 RBC (4.30-5.90) m/uL Hgb (13.0-17.5) gm/dL Hct (39.0-53.0) % RDW (11.5-15.5) % Plt Count (150-450) k/uL Neutrophils # (Manual) (1.3-7.7) k/uL Nucleated RBCs (0-0) /100 WBC ABG pH 7.47 H (7.35-7.45) ABG pCO2 54 H (35-45) mmHg ABG HCO3 40 H* (21-25) mmol/L ABG Total CO2 41 H (19-24) mmol/L ABG O2 Saturation 97.8 H (94-97) % Sodium (137-145) mmol/L Chloride (98-107) mmol/L Carbon Dioxide (22-30) mmol/L BUN (9-20) mg/dL Creatinine (0.66-1.25) mg/dL POC Glucose (mg/dL) (75-99) mg/dL Calcium (8.4-10.2) mg/dL AST (17-59) U/L ALT (4-49) U/L Total Protein (6.3-8.2) g/dL Albumin (3.5-5.0) g/dL Assessment and Plan Assessment: Impression: Acute hypoxic referral failure secondary to COVID-19 pneumonia, intubated on 12/07/2020, received barictinib on 11/15, patient was outside the window for remdesivir Suspect ARDS secondary to COVID-19 pneumonia FiO2 remains a 55%, and PEEP is 12. Paroxysmal atrial fibrillation, remains on amiodarone, failed cardioversion. Acute GI bleeding requiring mostly blood products and kcentra, presently off anticoagulation therapy Acute thrombocytopenia, no evidence of DIC. Most likely consumptive in nature. Does not seem to be improving, and considering his low platelets today, I'm recommending unit of platelets transfusion. Acute transaminitis/shocked liver, improving. Acute tubular necrosis and acute kidney injury, patient is being followed by nephrology not requiring replacement therapy yet. Obesity with BMI of 45.0. Elevated inflammatory markers secondary to COVID-19 infection. Acute metabolic alkalosis, multifactorial, patient needs to remain on diuretics, hence I'm changing his Lasix to Diamox. Recommendation: Continue ventilatory support. Daily sedation holidays will be continued on a daily basis. Yesterday patient remained quite lethargic off sedation however he became tachycardic and hypertensive had to be placed back on sedation Ventilator settings were changed today with PEEP down to 10 and his FiO2 remains a 50% Keep the patient off Nimbex. Continue to monitor daily labs including CBC, basic metabolic profile, inflammatory markers, liver profile, renal profile. Continue Protonix. Continue Decadron. Continue nutritional support Continue oral amiodarone. Family was fully updated on his condition yesterday Overall prognosis remains relatively poor and guarded. Patient remains critically ill. Will consult general surgery tomorrow to consider tracheostomy and PEG tube placement early next week Critical care time is over 30 minutes Time with Patient: Greater than 30
[2020-12-15 13:16] LABS: Glucose,Whole Blood 147 mg/dL (75-99)
[2020-12-15] MEDS: SODIUM CHLORIDE 0.9% 1,000 ML IV SCH (17:17)
[2020-12-15 18:55] LABS: Glucose,Whole Blood 165 mg/dL (75-99)
[2020-12-15] MEDS: fentaNYL (PF). 1,000 MCG in SODIUM CHLORIDE 0.9% 80 ML IV SCH ×2 (18:56→21:57)
[2020-12-15 20:19] LABS: Glucose,Whole Blood 141 mg/dL (75-99)
[2020-12-16 00:03] LABS: Glucose,Whole Blood 103 mg/dL (75-99)
[2020-12-16] MEDS: ARTIFICIAL TEARS-HYPROMELLOSE DROPS 15 ML BTL BOTH EYES SCH ×6 (00:04→21:24)
[2020-12-16] MEDS: INSULIN ASPART (NovoLOG) 100 UNIT/ML VIAL SQ SCH ×6 (00:05→21:20)
[2020-12-16 04:15] LABS: Glucose,Whole Blood 121 mg/dL (75-99)
[2020-12-16 04:54] LABS: Anisocytosis Slight; HCT 22.7 % (39.0-53.0); HGB 7.1 gm/dL (13.0-17.5); Hypochromasia Slight; MCH 30.7 pg (25.0-35.0); MCHC 31.3 g/dL (31.0-37.0); Macrocytosis Slight; Mean Platelet Volume 10.9; Platelet Count 26 k/uL (150-450); RBC 2.32 m/uL (4.30-5.90); RDW 19.6 % (11.5-15.5); WBC 6.9 k/uL (3.8-10.6)
[2020-12-16 05:07] LABS: Calcium 7.9 mg/dL (8.4-10.2); Potassium 3.8 mmol/L (3.5-5.1); Total Bilirubin 0.7 mg/dL (0.2-1.3); Total Protein 3.9 g/dL (6.3-8.2)
[2020-12-16 05:13] LABS: MCV 97.9 fL (80.0-100.0)
[2020-12-16 05:20] LABS: ABG Base Excess 8.5 mmol/L; ABG HCO3 33 mmol/L (21-25); ABG Oxygen Saturation 98.7 % (94-97); ABG PCO2 52 mmHg (35-45); ABG PH 7.41 (7.35-7.45); ABG PO2 110 mmHg (83-108); ABG TCO2 35 mmol/L (19-24); Allen Test Performed? Yes
[2020-12-16] MEDS ORDERED: POTASSIUM BICARBONATE/CIT AC 20 MEQ TABLET.EFF NG-TUBE SCH (06:00)
[2020-12-16] MEDS: INSULIN DETEMIR (LEVEMIR) 100 UNIT/ML SYR SQ SCH ×2 (06:23→21:24)
[2020-12-16 06:50] LABS: Eosinophils # (M) 0.14 k/uL (0-0.7); Lymphocytes # (M) 0.48 k/uL (1.0-4.8); Metamyelocytes # (M) 0.07 k/uL (0); Metamyelocytes % 1 %; Neutrophils # (M) 6.21 k/uL (1.3-7.7); Neutrophils % (M) 90 %; Nucleated Red Blood Cells 0 /100 WBC (0-0); Total Cells Counted 100
[2020-12-16 06:51] LABS: Polychromasia Present
--- NOTE | 2020-12-16 07:21 | XR ---
EXAMINATION TYPE: XR chest 1V portable DATE OF EXAM: 12/16/2020 COMPARISON: Chest x-ray 12/15/2020 HISTORY: Covid pneumonia TECHNIQUE: Single frontal view of the chest is obtained. FINDINGS: Endotracheal tube, NG tube, right subclavian central venous catheter are stable overlying appropriate positions. Bilateral airspace disease persists. There are overlying leads. No pneumothora x or pleural effusion. Cardiac mediastinal silhouette is stable. IMPRESSION: Findings consistent with patient's history
[2020-12-16] MEDS: ALBUTEROL HFA INHALER INHALATION PRN (07:31)
[2020-12-16] MEDS ORDERED: FUROSEMIDE 10 MG/ML 4 ML VIAL IV STA (08:27)
[2020-12-16] MEDS: CHLORHEXIDINE GLUCONATE 15 ML CUP MUCOUS MEM SCH ×2 (08:39→21:23)
[2020-12-16] MEDS: ZINC SULFATE 220 MG CAP PO SCH (08:39)
[2020-12-16] MEDS: PANTOPRAZOLE 40 MG/10 ML VIAL IVP SCH ×2 (08:39→21:24)
[2020-12-16] MEDS: CHOLECALCIFEROL 25 MCG (1000 IU) TABLET PO SCH (08:39)
[2020-12-16] MEDS: ASCORBIC ACID 500 MG TAB PO SCH ×2 (08:39→21:23)
[2020-12-16] MEDS: AMIODARONE 200 MG TAB PO SCH ×2 (08:39→21:24)
[2020-12-16 08:40] LABS: Glucose,Whole Blood 113 mg/dL (75-99)
[2020-12-16] MEDS: DEXAMETHASONE SOD PHOSPHATE 4 MG/ML 1 ML VIAL IV SCH (08:42)
[2020-12-16] MEDS: POTASSIUM BICARBONATE/CIT AC 20 MEQ TABLET.EFF NG-TUBE SCH ×2 (09:17→10:52)
--- NOTE | 2020-12-16 09:20 | P.PN ---
Subjective Patient is seen in follow-up for acute kidney injury. Renal function stable. Nonoliguric. On IV Diamox. Intubated. On 50% FiO2. Vital signs are stable. HEENT: Intubated. LUNGS: Breath sounds decreased. HEART: Regular rhythm. ABDOMEN: Soft, obese. EXTREMITITES: 2+ edema. Scrotal edema noted. Objective - Vital Signs Vital signs: Vital Signs Temp 98.5 F 12/16/20 08:00 Pulse 79 12/16/20 09:00 Resp 41 H 12/16/20 09:00 BP 109/71 12/16/20 07:00 Pulse Ox 99 12/16/20 09:00 Intake & Output 12/15/20 12/16/20 12/16/20 18:59 06:59 18:59 Intake Total 721 1803.638 243.269 Output Total 2730 2500 775 [facility] -2009 -[phone] -[phone] Weight 121.2 kg Intake: IV 276 276 69 .9 KVO 240 240 60 Normal Saline Pressure 36 36 9 Bag @ 3mL/hr Intake, IV Titration 100 187.638 39.269 Amount propofoL 1,000 mg In 100 187.638 39.269 Empty Bag 1 bag @ Titrate IV .Q0M [facility] Rx#: [id number] Tube Feeding 90 540 135 Blood Product 255 Platelet Pheresis Pas 255 Psoralen Unit [id number] Other 800 Output: Urine 2730 2500 775 Other: Voiding Method Indwelling Catheter Indwelling Catheter # Voids 0 # Bowel Movements 1 ABP, PAP, CO, CI - Last Documented Arterial Blood Pressure 159/68 - Labs CBC & Chem 7: 12/16/20 04:00 12/16/20 04:00 Labs: Abnormal Lab Results - Last 24 Hours (Table) 12/15/20 12/15/20 12/15/20 Range/Units 13:14 18:53 20:19 RBC (4.30-5.90) m/uL Hgb (13.0-17.5) gm/dL Hct (39.0-53.0) % RDW (11.5-15.5) % Plt Count (150-450) k/uL Lymphocytes # (Manual) (1.0-4.8) k/uL Metamyelocytes # (Man) (0) k/uL ABG pCO2 (35-45) mmHg ABG pO2 (83-108) mmHg ABG HCO3 (21-25) mmol/L ABG Total CO2 (19-24) mmol/L ABG O2 Saturation (94-97) % Sodium (137-145) mmol/L Chloride (98-107) mmol/L Carbon Dioxide (22-30) mmol/L BUN (9-20) mg/dL Creatinine (0.66-1.25) mg/dL Glucose (74-99) mg/dL POC Glucose (mg/dL) 147 H 165 H 141 H (75-99) mg/dL Calcium (8.4-10.2) mg/dL ALT (4-49) U/L Total Protein (6.3-8.2) g/dL Albumin (3.5-5.0) g/dL 12/16/20 12/16/20 12/16/20 Range/Units 00:01 04:00 04:00 RBC 2.32 L (4.30-5.90) m/uL Hgb 7.1 L (13.0-17.5) gm/dL Hct 22.7 L (39.0-53.0) % RDW 19.6 H (11.5-15.5) % Plt Count 26 L (150-450) k/uL Lymphocytes # (Manual) 0.48 L (1.0-4.8) k/uL Metamyelocytes # (Man) 0.07 H (0) k/uL ABG pCO2 (35-45) mmHg ABG pO2 (83-108) mmHg ABG HCO3 (21-25) mmol/L ABG Total CO2 (19-24) mmol/L ABG O2 Saturation (94-97) % Sodium 146 H (137-145) mmol/L Chloride 112 H (98-107) mmol/L Carbon Dioxide 34 H (22-30) mmol/L BUN 78 H (9-20) mg/dL Creatinine 1.86 H (0.66-1.25) mg/dL Glucose 114 H (74-99) mg/dL POC Glucose (mg/dL) 103 H (75-99) mg/dL Calcium 7.9 L (8.4-10.2) mg/dL ALT 476 H (4-49) U/L Total Protein 3.9 L (6.3-8.2) g/dL Albumin 2.0 L (3.5-5.0) g/dL 12/16/20 12/16/20 12/16/20 Range/Units 04:13 05:14 08:37 RBC (4.30-5.90) m/uL Hgb (13.0-17.5) gm/dL Hct (39.0-53.0) % RDW (11.5-15.5) % Plt Count (150-450) k/uL Lymphocytes # (Manual) (1.0-4.8) k/uL Metamyelocytes # (Man) (0) k/uL ABG pCO2 52 H (35-45) mmHg ABG pO2 110 H (83-108) mmHg ABG HCO3 33 H (21-25) mmol/L ABG Total CO2 35 H (19-24) mmol/L ABG O2 Saturation 98.7 H (94-97) % Sodium (137-145) mmol/L Chloride (98-107) mmol/L Carbon Dioxide (22-30) mmol/L BUN (9-20) mg/dL Creatinine (0.66-1.25) mg/dL Glucose (74-99) mg/dL POC Glucose (mg/dL) 121 H 113 H (75-99) mg/dL Calcium (8.4-10.2) mg/dL ALT (4-49) U/L Total Protein (6.3-8.2) g/dL Albumin (3.5-5.0) g/dL Assessment and Plan Plan: Assessment: 1. Acute kidney injury secondary to ATN secondary to septic shock. Baseline creatinine near 1 and peaked at 2.9 on this admission - 1.86 today. Nonoliguric. No hydronephrosis was noted. 2. Hyperkalemia secondary to acute kidney injury and metabolic acidosis. Improved with medical management. 3. Metabolic acidosis secondary to acute kidney injury. Resolved. 4. Septic shock secondary to COVID-19 infection. Off vasopressors. 5. Acute hypoxic respiratory failure. 6. Volume overload. 7. A. fib with RVR on oral amiodarone. 8. Hypernatremia due to free water diuresis. Improved with free water flushes. 9. Metabolic alkalosis secondary to diuresis. Improved with Diamox. Plan: Maintain IV Diamox for now. Robeix 40 mg IV once today. Maintain free water flushes at 400 mL every 6 hours. Wean FiO2. Avoid nephrotoxins. Continue to monitor renal function and urine output
[2020-12-16] MEDS: DEXMEDETOMIDINE/0.9% NACL(PMX) 400 MCG in EMPTY BAG 1 BAG IV SCH ×2 (10:00→10:10)
--- NOTE | 2020-12-16 10:45 | P.PN ---
Subjective Progress Note Date: 12/16/20 This is a pleasant 60-year-old gentleman patient of Dr. Ridge Christina. He doesn't see a physician often and does not note any medical diseases, except for obesity. He comes seen secondary to fever and chills, cough, starting December 06 first, along with muscle aches, lack of appetite and diarrhea. he was tested for call bid November 08, which required at week of reporting, subsequently was sent to emergency room secondary to worsening symptoms, including dyspnea on exertion, shortness of breath and worsening cough without hemoptysis. Fever, shortness of breath lingers, no treatment given to him prior to this admission. The is vaccinated, but the patient is not. He does not believe in vaccines at that time. He comes in the emergency room, with hypoxemia, with very minimal conversatio nal dyspnea, chest x-ray, shows pulmonary infiltrate consistent with Covid pneumonia, oxygen currently is at 6 L nasal cannula, d-dimer was 0.6, LFTs are minimally elevated, 64 AST, lactic acid 2.0 sodium 132, creatinine of 0.9, glucose of 122, LDH of 888, CRP of 5.7. Urine protein noted, without hematuria or proteinuria. Covid was again retested 11/14, PCR is positive. Consult to Dr. Eduardo and pulmonary,, 11/16: Patient is currently on oxygen at 6 L nasal cannula increased to 7 L with humidified oxygen. Patient seen and followed by pulmonary medicine and has been started on Bariticinib, Decadron 6 mg daily, and prophylactic dose of Lovenox. He is reaching 1750 on incentive spirometry. Patient did have episode of diarrhea yesterday, none today and complains of decreased appetite. Patient complains of nasal congestion and Flonase added. 11/17: Patient had difficulty with oxygenation during the night and this morning transitioned to Airfo and partial nonrebreather. Pulse ox is currently running 90-92%, patient is prone. He has been afebrile, heart rate 88, blood pressure 104/63. Repeat d-dimer is elevated at 0.93. Blood sugar 167. C-reactive protein increased to 5.3. AST is 83 and ALT 51. Blood culture remains with no growth after 48 hours. Repeat chest x-ray reveals mild cardiomegaly with bilateral multifocal opacities consistent with Covid 19 infection. No sig nificant change from most recent x-ray. Albuterol inhaler and Symbicort inhaler added. 11/18: Patient is currently on AirVo and nonrebreather with pulse ox of 93%. He's been afebrile, heart rate 85, blood pressure 103/68. Blood culture no growth at 72 hours 2 specimens. Plan to continue proning. Repeat laboratory studies ordered for tomorrow including inflammatory markers. The patient is reis ving difficulty sleeping and melatonin added. Lovenox increased to twice daily dosing. 11/19: Patient remains in isolation. He is on AirVO plus nonrebreather with pulse ox of 93%. He has been afebrile, heart rate 85, blood pressure 122/69. Patient is found sitting in recliner and encouraged to prone when he is able to. Repeat blood work reveals WBC 12, hemoglobin 14.8, platelet count 282. D-dimer is 1.38. Other blood work is pending. Patient is continued on Decadron, vitamin supplements, Lovenox. He is on day #07/20 of Baricitinib. 11/20: Patient has been afebrile, heart rate 71, blood pressure 107/71, pulse ox 88-93% on AirVo plus nonrebreather. Patient seems to be depressed and fr ustrated with coarse. Noted that he started on Xanax yesterday by pulmonary. We will add and Remeron 7.5 mg at bedtime. Hemoglobin A1c came back at 6.4. Patient is encouraged to use incentive spirometry, increase activity, prone. Discussed CODE STATUS with patient and he wishes to be a full code. 11/21: Patient will pulse ox of 83% as he was on Airvo only and once nonrebreather was placed she went up to 89%. Patient is not eating much. He has been encouraged to take protein supplement, increase activity and prone but patient does not seem motivated. He was started on Remeron last night which will hopefully help with his mood and appetite. He has continued on Lovenox, dexamethasone, Baricitinib #09/19 repeat blood work reveals WBC 14.3. D-dimer increasing to 3.2. Electrolytes normal, creatinine 0.76. LDH is high at 1476, C-reactive protein stable 6.6. 11/22: Patient continues to be on airflow and nonrebreather and with minimal movement, pulse ox drops down to 82%, otherwise patient is maintaining 92-94%. One dose of IV Lasix ordered for today. Temperature max yesterday afternoon was 101.2. Heart rate in the 70s and 80s. Blood pressure 110/59. Urinalysis was negative for infection. Repeat blood work will be ordered for tomorrow. 11/23: Patient Was moved into ICU overnight. He has been on BiPAP through the night and pulse oxing 95% recently on his side, currently sitting on the edge of the bed pulse oxing 90%, with talking he drops to 83%. He is scheduled for PICC line insertion and plan to start TPN today. Patient has been afebrile, heart rate in the 60s, respiratory rate 28. WBC 12.0, hemoglobin 15, platelet count 351. Lymphocytes 11.1. D-dimer 2.46. Sodium 136, otherwise electrolytes are normal. BUN 30 creatinine 0.7. Blood sugar 128. Magnesium 2.5. Phosphorus 5.5. LDH 1691. C-reactive protein 13.4. Total protein 5.6. Blood cultures remain with no growth. Repeat chest x-ray this morning reveals stable diffuse bilateral infiltrates. Patient is on Baricitinib 10/20. Pulmonary has increased frequency of dexamethasone to twice daily and changed to IV6 mg IV twice daily. 11/24: Patient remain in the ICU, still on BiPAP with pulse ox is improving at this point. Continue dexamethasone and Baricitinib 11/20, patient had full meal this morning his TPN will be suspended after today. Patient will remain in the ICU at least for the next 48 hours. 11/25: Remain in the ICU still on BiPAP but his pulse ox is slightly bit better he still on dexamethasone and Baricitinib 12/20 seems to do slightly but better was agreed by intensive care studies TPN, patient oral intake is slightly but better and had slight improvement compared to yesterday. Surprisingly his marker went up slightly bit specially his LDH up to 2086 with C-reactive protein 3.6 kidney function remained good white blood cell climb up to 15.1 specially been on steroid. Chest x-ray still shows diffuse bilateral interstitial infiltrate and patchy opacification persistent but there is a slight improvement in the variation in the left lower lobe compared to few days earlier. 11/26: Patient remain on BiPAP with 100% oxygen to keep his pulse ox around 92 percentile, his d-dimer continue to be quite bit elevated today is having Doppler of the lower extremity but notes CT at this point. Remain on Symbicort, and albuterol HFA, his white blood cell is down 17,000, blood sugars better control. Chest x-ray still showed patchy infiltrate throughout both lung felix persistent didn't change. Patient had mild anxiety with no pain currently. 11/27: Patient remains in the intensive care unit. He is placed on airflow for eating and pulse ox drops to the 7083 percent range. Pulse ox 90-93% on100% BiPAP. He is afebrile, heart rate in the 70s, respiratory rate 27 and 32, blood pressure 102/71. WBC 21.5, lymphocytes 0.6. D-dimer 7.29. Blood sugars running between 111 and 171. Ferritin level [id number]. ALT 54, alkaline phosphatase 152. CK 27, C-reactive protein 2.9. Repeat chest x-ray reveals borderline cardiomegaly with prominent pulmonary vascular markings. Diffuse increased lung markings are present. Correlate for heart failure. Atypical pneumonia should be considered. Lower extremity ultrasound negative for DVT bilaterally. 11/28: Patient remains in the intensive care unit and found sitting in a chair at the bedside. He is continued on BiPAP and switched over to Arava and nonrebreather for meals. Repeat chest x-ray essentially unchanged. Repeat blood work reveals WBC 20.4, hemoglobin 14.8, platelet count 130. Sodium 134, potassium 4.8, creatinine 0.62. LDH 2934. C-reactive protein 3.3, d-dimer 10.2. CT angiogram of the chest has been ordered by pulmonary medicine which revealed slightly suboptimal study without evidence of acute pulmonary embolism. Mild cardiomegaly with bilateral cities and multifocal organizing consolida tions consistent with Covid19 infection. Lovenox has been changed to 40 mg daily and dexamethasone changed to Solu-Medrol 60 mg every 6 hours. Patient has completed course of Baricitinib. 11/29: Patient remains in the intensive care unit, patient is utilizing BiPAP and also Airvo with nonrebreather mask added at times as he tolerates. His oxygenation seems to be improving at 89-93%. Respiratory rate 24, heart rate 88, blood pressure 107/58. Patient does verbalize that he is feeling somewhat better today. WBC 16.4, hemoglobin 15.1, platelet count 120. D-dimer 13.49, C- reactive protein 2, LDH 2086, CK 47. Repeat chest x-ray reveals correlate for pneumonia, edema or pulmonary hemorrhage, there is cardiomegaly. Patient is currently continued on Lovenox, Solu-Medrol, bronchodilators and vitamin supplements. 11/30: Patient remains in intensive care unit, he sitting in a chair at the bedside. He is feeling a little bit better and breath sounds are sounding a little better from yesterday. He is currently on AirVO. Pulse ox is running 84-87%, he has been afebrile, heart rate in the 80s and 90s, respiratory rate in the 20s, blood pressure 110/67. Repeat blood work reveals WBC 19.4, platelet count 126. D-dimer 10.2, LDH 2157, CK 78, C-reactive protein 1.5. Sodium 135, BUN 44 creatinine 0.73. Patient is continued on Lovenox, IV Solu-Medrol, bronchodilators and supplements. 12/01: Patient remains in ICU, he is currently sitting in chair at the bedside. Patient continues to state that he feels a bit better breath sounds are sounding better compared to yesterday. He is currently on airflow. His pulse ox is running 87-89%, he is still short of breath with conversation. Patient has been afebrile, heart rate 72, respirations 28, blood pressure 109/61. WBC 16.0, hemog lobin 15.1, platelets 112, potassium 4.6, BUN 39, creatinine 0.84. Patient is continued on Lovenox, IV Solu-Medrol, bronchodilators and supplements. 12/02: Patient remains in ICU, he is currently sitting up in a chair at the bedside. Patient continues to have shortness of breath with activity and conversation. His chest x-ray unchanged to prior studies. D-dimer 5.96. Incentive spirometer is at the bedside however encouragement to utilize if needed. Patient has been afebrile, heart rate 85, respirations 28, blood pressure 138/86 pulse ox is 85-89% on Airvo. 12/03, patient remains ICU, he seems to be gradually improving, intending around for the better, has improvement on shortness of breath with conversation, nothing supple she did today for dyspnea, however with movement, he does have shortness of breath while in bed turning around. Patient has an airflow at 65 L, pulse ox 90%. No new fevers, no melena and hematochezia, nutrition is appropriate, and is getting better. 12/04: Patient remains in the intensive care unit. He is onAirVo with nonrebreather mask on standby. He did have a rise in his heart rate up to the 140s, atrial fibrillation with RVR and pulmonary has started the patient on amiodarone drip. He has been afebrile, respiratory rate 28, pulse ox 94-97%. WBC 18.7, hemoglobin 15.5, platelet count 131. Sodium 134, potassium 4.5, chloride 99, CO2 31, BUN 32 and creatinine 0.72. Blood sugars are running between 144 and 193. AST 71, ALT 283, alkaline phosphatase 82. LDH 1946, C- reactive protein 0.6. D-dimer 4.21. Repeat chest x-ray reveals worsening b ilateral diffuse interstitial and patchy airspace disease. 12/05: Patient has been taken out of isolation by infection control. He is now on AirVo, FiO2 at 75%. He does have nonrebreather mask on standby but oxygen needs seem to be improving slightly. He seems to be slightly less short of breath. Nephrology has switched him to oral prednisone and off Solu-Medrol. Patient is on eliquis for atrial fibrillation. Heart rate is currently controlled and he has been afebrile. Amiodarone has been discontinued, echocardiogram ordered. Pulse ox is 88%, afebrile, blood pressure 111/72 and heart rate in the 80s. crm technical lead sinus rhythm. Repeat blood work reveals WBC 20.4, hemoglobin 15.2, platelet count 109. Sodium 135, potassium 4.9, chloride 100, CO2 33, BUN 46 and creatinine 0.84. Blood sugars are running between 133 and 231. LDH 1616. 12/06: Patient had difficult is sleeping last night despite use of Remeron and having back pain issues. Tramadol at bedtime ordered. Patient remains in the intensive care unit, he has been moved out of isolation. He continues to be on airflow with pulse ox in the 80s. Blood pressure is soft this morning 85/53 and 92/67 for which fluid bolus of 500 ML's ordered. He's been afebrile, heart rate in the 80s. crm technical lead sinus rhythm. Metoprolol was increased to 25 mg twice daily. Echocardiogram reveals EF of 50-55%. 12/07: She remains in intensive care unit but is doing poorly this morning. He had a large bright red and mostly dark stool last evening and a repeat this morning. Eliquis has been placed on hold, he is very quite vasopressors and started on levo. He is on Protonix 40 mg IV push twice daily. He is scheduled to receive 2 units of packed RBCs for drop in his hemoglobin to 9.4. He is currently receiving 2 L IV fluid bolus. Stool for occult blood was positive. Consult was added for Dr. Ojeda. He is currently on BiPAP at 100% with pulse ox of 100%, heart rate 104, respiratory rate 27, blood pressure 88/51. Other blood work today reveals WBC of 22.6, platelet count of 94. Creatinine 0.82 with BUN of 64. Blood sugars 173. Lactic acid 2.9. INR is 1.5, PTT 25.5, AST 69, ALT 200, LDH 1474. Alkaline phosphatase 57 urinalysis negative for infection. Patient had a previous colonoscopy with Dr. Ryees that was normal. 12/08: Yesterday, patient required intubation was placed on mechanical ventilation after becoming more hypotensive started on vasopressin and norepinephrine and status post 7 L of IV fluid. He is status post transfusion of a total of 4 units of packed RBCs and hemoglobin is currently at 7.8. He has had no further episodes of GI bleeding. Consult with nephrology has been added, potassium came back at 6.5 CAT scan of the abdomen and chest revealed pulmonary edema which is slightly improved. Evidence of new posterior pneumomediastinum, air around the lower thoracic esophagus. Decreased excretion of delayed images small amount of abdominal ascites. No bowel obstruction. Chest x-ray reveals low lung volume with bilateral multifocal and confluent opacities consistent with COVID-19. Patient was seen yesterday by general surgery and patient was tentatively scheduled for EGD and colonoscopy on 12/10: She remains intubated and on mechanical ventilation with tidal volume 375, FiO2 60, PEEP of 14. Patient went into A. fib with RVR uncontrolled status post bolus of amiodarone and fluid bolus, shock 3 without conversion and is current ly at 140 bpm. He remains on norepinephrine and vasopressin but on lower doses. He is also on Nimbex and propofol. Patient is not on anticoagulation at this point due to GI bleed. Patient has been afebrile, respiratory rate 38, but pressure 86/51, pulse ox 97%. Repeat blood work reveals WBC 21.2, hemoglobin 8.5, platelet count 45. BUN 74 creatinine 2.42. Blood sugars running in the 200s and Levemir 10 units twice daily added along with scale. Magnesium 1.7. AST 2912, ALT 5134. Chest x-ray reveals low lung volumes with bilateral multifocal and confluent opacities consistent with Covid 19. 12/10: She remains intubated and on mechanical ventilation with tidal volume 375, FiO2 60, PEEP of 12. Heart rate is anywhere from 115 to 130 in a fib. Patient was off vasopressor and Levophed for blood pressure dropped this morning is back on levo fed. He has had good urine output. He is also on Nimbex, propofol and fentanyl drips. He has had no further bloody tarry stools., WBC 27.1, platelet count 232. BUN 86 and creatinine 2.91. Patient is on tube feedings. EGD and colonoscopy are on hold until patient is medically stable. Patient's is at bedside and all questions have been answered. 12/11: Patient remains intubated and on mechanical ventilation with tidal volume 375, FiO2 60, peep 12. One dose of IV Lasix 40 this am. Continues in afib rvr. Patient is to be weaned off pressors today. Medication changes have been made. He is on to prevent, Nimbex and continues on amiodarone drip. Plan is for sedation holiday if patient does well. He has had good urine output. His had no bowel movement since the GI bleed. Tube feedings are to start. He has been afebrile, heart rate is running up to the 130s, blood pressure 104/63, pulse ox 94%. Blood sugars are well controlled with current regime. Leukocytosis is slowly improving at 23.4, hemoglobin today is 8.6, platelet count 27. BUN 93 and creatinine 2.78, potassium 4.4. Inflammatory markers: Ferritin 17,090, LDH 4086, CK 591, C-reactive protein 5.1, d-dimer 2.34. Repeat chest x-ray report is unchanged. 12/12: Patient remains in intensive care unit intubated on mechanical ventilation with tidal volume 375, FiO2 60 and PEEP of 12. Patient has converted to a sinus rhythm and appears to be quite comfortable on ventilator. He is currently on propofol, fentanyl. Patient has been started on tube feedings and is tolerating. No bloody stools. Repeat chest x-ray reveals diffuse infiltrate appears stable. Multiple lines. WBC 19.3, hemoglobin 8, platelet count 22. D- dimer 2.64. BUN 99 creatinine 2.44. Blood sugars are running 130s 140s. Ferritin 12,375, total bilirubin 1.5, AST 273, ALT 1906, alkaline phosphatase 128, LDH 3869, CK 334, C-reactive protein 4.8. Patient is status post transfus ion of 1 unit of platelets. He has been continued on dexamethasone 4 mg IV daily, IV antibiotics in form of vancomycin, Zosyn was discontinued. Patient's is at the bedside all questions have been answered. 12/13: Patient remains in intensive care unit on mechanical ventilation with tidal volume 375, FiO2 55 and PEEP of 12. Patient is scheduled for a sedation holiday this afternoon. He has had good urine output. crm technical lead sinus rhythm. Blood pressure 148/55 and heart rate in the 80s. Patient's and son are at the bedside. Repeat blood work reveals WBC 17.1, hemoglobin 7.4, platelet count 33. D-dimer 6.38. BUN 102 and creatinine 2.59. Blood sugars are running in the 1 teens and 126. Ferritin level 9362, LDH 3681, C-reactive protein 3.4. Patient is on oral amiodarone. Patient's been started on tube feedings. 12/14: Patient remains in the intensive care unit. Family members are at bedside. Patient did well with a 30 minute sedation holiday and propofol and fentanyl were decreased. He is currently on tidal volume 375, FiO2 50 and PEEP of 12. crm technical lead is a sinus rhythm, heart rate 85, blood pressure 138/64, pulse ox 96%. Patient is ordered for 2 doses of Lasix per nephrology today and is diuresing well. He is on tube feedings and tolerating. He did have a small all movement but no blood. WBC 15, hemoglobin 7.6, platelet count 29. Sodium 146, potassium 3.9, chloride 111, CO2 33, BUN 95 and creatinine 2.11. Blood sugars are running 113-125. AST 120, ALT 964, alkaline phosphatase 122. 12/15: Patient remains in intensive care unit. Currently on tidal volume 375, FiO2 50 and a PEEP of 12. crm technical lead is sinus rhythm, heart rate 97, blood pressure 141/59, pulse ox saturation is 96%. Patient is currently on tube feedings and tolerating well. WBC 10.1, hemoglobin 7.9, platelets 24, sodium 148, potassium 4.0, carbon dioxide 39, BUN 92, creatinine 1.89. Blood sugars ranging 106-121. 12/16: Patient remains in intensive care unit on mechanical ventilation. Current tidal volume to 75, FiO2 50, and a PEEP of 12. crm technical lead shows sinus rhythm, with a heart rate 80, respirations 39, blood pressure 127/73, 97% O2 saturation. Patient's currently on tube feedings and tolerating. WBC 6.9, hemoglobin 7.1, platelets 26, sodium 146, potassium 3.8, carbon dioxide 34, BUN 78, creatinine 1.86 glucose ranging 99-114. REVIEW OF SYSTEMS Unable to obtain as patient is intubated and on mechanical ventilation PHYSICAL EXAMINATION Gen: This is a 60-year-old obese male in the ICU intubated and on mechanical ventilation and appears to be comfortable. HEENT: Head is atraumatic, normocephalic. Pupils equal, round. Sclerae is anicteric, conjunctiva edema. Oral ET and gastric tubes in place, to feedings in place. NECK: Supple. No JVD. No lymphadenopathy. No thyromegaly. LUNGS: Diminished with crackles in the bilateral bases. HEART: Regular rate and rhythm. No murmur. crm technical lead is a sinus rhythm. ABDOMEN: obese. Soft. Bowel sounds are present. No masses. No tenderness. Mackenzie catheter draining clear frederick urine with good urine output. EXTREMITIES: His bilateral pedal edema. No calf tenderness. NEUROLOGICAL: Patient is sedated. ASSESSMENT AND PLAN 1. Acute respiratory failure: Secondary to COVID-19 requiring intubation and mechanical ventilation, with possible secondary bacterial pneumonia, pulmonary medicine, continue Ventolin inhaler, dexamethasone 4 mg IV daily,vitamin supplements. Patient is off Lovenox/eliquis due to GI bleed. 2. Sepsis (POA) secondary to COVID-19 pneumonia, with acute hypoxemic resp iratory failure, diagnosis was of 11/08/2020. 3. Moderate protein calorie malnutrition secondary to poor oral intake. Oral gastric feedings. 4. New-onset atrial fibrillation with RVR, paroxysmal atrial fibrillation. Continue oral amiodarone 200 mg twice daily, Eliquis placed on hold due to GI bleed. Echocardiogram as above. 5. Thrombocytopenia secondary to sepsis. No anticoagulation due to thrombocytopenia, GI bleed. Transfusion of 1 unit of platelets. 6. Acute GI bleed with acute blood loss anemia. Eliquis placed on hold, 4 units packed RBCs, IV fluid boluses, consult with Dr. Ojeda appreciated. EGD and colonoscopy once patient is stabilized, Dr. Lester is following. 7. Acute hypovolemic shock or septic shock requiring vasopressors, massive IV fluid resuscitation. Patient is off vasopressors and blood pressure has been stable. 8. Acute kidney injury with ATN secondary to septic shock. Consult with nephrology appreciated. Patient has had good urine output. IV Lasix 2 today. 9. Metabolic acidosis secondary to acute kidney injury. 10. Severe hyperkalemia secondary to acute kidney injury. Followed by nephrology. 11. Shock liver secondary to hypotension. Monitor liver function test. 12. DVT prophylaxis. 13. GI prophylaxis. Protonic. 14. BPH. Mackenzie catheter 15. Proteinuria, unknown cause. 16. Dymetabolic syndrome, monitor for hyperglycemia, A1c 6.4. NovoLog scale every 4 hours, added Levemir 12 units twice daily. 17. Back pain. CODE Status: Full code Prognosis: guarded. Impression and plan of care have been directed as dictated by the signing physician. Vandana Stoddard nurse practitioner acting as scribe for signing physician. Objective - Vital Signs Vital signs: Vital Signs Temp 98.5 F 12/16/20 08:00 Pulse 80 12/16/20 10:00 Resp 39 H 12/16/20 10:00 BP 127/73 12/16/20 10:00 Pulse Ox 97 12/16/20 10:00 Intake & Output 12/15/20 12/16/20 12/16/20 18:59 06:59 18:59 Intake Total 721 1803.638 311.269 Output Total 2730 2500 1475 Balance -2008696.362 -1163.731 Weight 121.2 kg Intake: IV 276 276 92 .9 KVO 240 240 80 Normal Saline Pressure 36 36 12 Bag @ 3mL/hr Intake, IV Titration 100 187.638 39.269 Amount propofoL 1,000 mg In 100 187.638 39.269 Empty Bag 1 bag @ Titrate IV .Q0M [facility] Rx#: [id number] Tube Feeding 90 540 180 Blood Product 255 Platelet Pheresis Pas 255 Psoralen Unit [id number] Other 800 Output: Urine 2730 2500 1475 Other: Voiding Method Indwelling Catheter Indwelling Catheter Indwelling Catheter # Voids 0 # Bowel Movements 1 ABP, PAP, CO, CI - Last Documented Arterial Blood Pressure 139/63 - Labs CBC & Chem 7: 12/16/20 04:00 12/16/20 04:00 Labs: Abnormal Lab Results - Last 24 Hours (Table) 12/15/20 12/15/20 12/15/20 Range/Units 13:14 18:53 20:19 RBC (4.30-5.90) m/uL Hgb (13.0-17.5) gm/dL Hct (39.0-53.0) % RDW (11.5-15.5) % Plt Count (150-450) k/uL Lymphocytes # (Manual) (1.0-4.8) k/uL Metamyelocytes # (Man) (0) k/uL ABG pCO2 (35-45) mmHg ABG pO2 (83-108) mmHg ABG HCO3 (21-25) mmol/L ABG Total CO2 (19-24) mmol/L ABG O2 Saturation (94-97) % Sodium (137-145) mmol/L Chloride (98-107) mmol/L Carbon Dioxide (22-30) mmol/L BUN (9-20) mg/dL Creatinine (0.66-1.25) mg/dL Glucose (74-99) mg/dL POC Glucose (mg/dL) 147 H 165 H 141 H (75-99) mg/dL Calcium (8.4-10.2) mg/dL ALT (4-49) U/L Total Protein (6.3-8.2) g/dL Albumin (3.5-5.0) g/dL 12/16/20 12/16/20 12/16/20 Range/Units 00:01 04:00 04:00 RBC 2.32 L (4.30-5.90) m/uL Hgb 7.1 L (13.0-17.5) gm/dL Hct 22.7 L (39.0-53.0) % RDW 19.6 H (11.5-15.5) % Plt Count 26 L (150-450) k/uL Lymphocytes # (Manual) 0.48 L (1.0-4.8) k/uL Metamyelocytes # (Man) 0.07 H (0) k/uL ABG pCO2 (35-45) mmHg ABG pO2 (83-108) mmHg ABG HCO3 (21-25) mmol/L ABG Total CO2 (19-24) mmol/L ABG O2 Saturation (94-97) % Sodium 146 H (137-145) mmol/L Chloride 112 H (98-107) mmol/L Carbon Dioxide 34 H (22-30) mmol/L BUN 78 H (9-20) mg/dL Creatinine 1.86 H (0.66-1.25) mg/dL Glucose 114 H (74-99) mg/dL POC Glucose (mg/dL) 103 H (75-99) mg/dL Calcium 7.9 L (8.4-10.2) mg/dL ALT 476 H (4-49) U/L Total Protein 3.9 L (6.3-8.2) g/dL Albumin 2.0 L (3.5-5.0) g/dL 12/16/20 12/16/20 12/16/20 Range/Units 04:13 05:14 08:37 RBC (4.30-5.90) m/uL Hgb (13.0-17.5) gm/dL Hct (39.0-53.0) % RDW (11.5-15.5) % Plt Count (150-450) k/uL Lymphocytes # (Manual) (1.0-4.8) k/uL Metamyelocytes # (Man) (0) k/uL ABG pCO2 52 H (35-45) mmHg ABG pO2 110 H (83-108) mmHg ABG HCO3 33 H (21-25) mmol/L ABG Total CO2 35 H (19-24) mmol/L ABG O2 Saturation 98.7 H (94-97) % Sodium (137-145) mmol/L Chloride (98-107) mmol/L Carbon Dioxide (22-30) mmol/L BUN (9-20) mg/dL Creatinine (0.66-1.25) mg/dL Glucose (74-99) mg/dL POC Glucose (mg/dL) 121 H 113 H (75-99) mg/dL Calcium (8.4-10.2) mg/dL ALT (4-49) U/L Total Protein (6.3-8.2) g/dL Albumin (3.5-5.0) g/dL
--- NOTE | 2020-12-16 11:55 | P.PN ---
Subjective Progress Note Date: 12/16/20 Principal diagnosis: GI bleed Patient doing better on the ventilator today. Plans are for possible weaning trials. No rectal bleeding. Hemoglobin today 7.1, platelets 26. Tolerating tube feeds at 45 mL per hour. Objective - Vital Signs Vital signs: Vital Signs Temp 98.5 F 12/16/20 08:00 Pulse 75 12/16/20 11:00 Resp 24 12/16/20 11:00 BP 116/64 12/16/20 11:00 Pulse Ox 97 12/16/20 11:00 Intake & Output 12/15/20 12/16/20 12/16/20 18:59 06:59 18:59 Intake Total 721 1803.638 334.269 Output Total 2730 2500 2775 Balance -2009 -696.362 -2440.731 Weight 121.2 kg Intake: IV 276 276 115 .9 KVO 240 240 100 Normal Saline Pressure 36 36 15 Bag @ 3mL/hr Intake, IV Titration 100 187.638 39.269 Amount propofoL 1,000 mg In 100 187.638 39.269 Empty Bag 1 bag @ Titrate IV .Q0M [facility] Rx#: [id number] Tube Feeding 90 540 180 Blood Product 255 Platelet Pheresis Pas 255 Psoralen Unit [id number] Other 800 Output: Urine 2730 2500 2775 Other: Voiding Method Indwelling Catheter Indwelling Catheter Indwelling Catheter # Voids 0 # Bowel Movements 1 ABP, PAP, CO, CI - Last Documented Arterial Blood Pressure 136/55 - Exam Abdomen: Soft, nondistended, nontender - Labs CBC & Chem 7: 12/16/20 04:00 12/16/20 04:00 Labs: Abnormal Lab Results - Last 24 Hours (Table) 12/15/20 12/15/20 12/15/20 Range/Units 13:14 18:53 20:19 RBC (4.30-5.90) m/uL Hgb (13.0-17.5) gm/dL Hct (39.0-53.0) % RDW (11.5-15.5) % Plt Count (150-450) k/uL Lymphocytes # (Manual) (1.0-4.8) k/uL Metamyelocytes # (Man) (0) k/uL ABG pCO2 (35-45) mmHg ABG pO2 (83-108) mmHg ABG HCO3 (21-25) mmol/L ABG Total CO2 (19-24) mmol/L ABG O2 Saturation (94-97) % Sodium (137-145) mmol/L Chloride (98-107) mmol/L Carbon Dioxide (22-30) mmol/L BUN (9-20) mg/dL Creatinine (0.66-1.25) mg/dL Glucose (74-99) mg/dL POC Glucose (mg/dL) 147 H 165 H 141 H (75-99) mg/dL Calcium (8.4-10.2) mg/dL ALT (4-49) U/L Total Protein (6.3-8.2) g/dL Albumin (3.5-5.0) g/dL 12/16/20 12/16/20 12/16/20 Range/Units 00:01 04:00 04:00 RBC 2.32 L (4.30-5.90) m/uL Hgb 7.1 L (13.0-17.5) gm/dL Hct 22.7 L (39.0-53.0) % RDW 19.6 H (11.5-15.5) % Plt Count 26 L (150-450) k/uL Lymphocytes # (Manual) 0.48 L (1.0-4.8) k/uL Metamyelocytes # (Man) 0.07 H (0) k/uL ABG pCO2 (35-45) mmHg ABG pO2 (83-108) mmHg ABG HCO3 (21-25) mmol/L ABG Total CO2 (19-24) mmol/L ABG O2 Saturation (94-97) % Sodium 146 H (137-145) mmol/L Chloride 112 H (98-107) mmol/L Carbon Dioxide 34 H (22-30) mmol/L BUN 78 H (9-20) mg/dL Creatinine 1.86 H (0.66-1.25) mg/dL Glucose 114 H (74-99) mg/dL POC Glucose (mg/dL) 103 H (75-99) mg/dL Calcium 7.9 L (8.4-10.2) mg/dL ALT 476 H (4-49) U/L Total Protein 3.9 L (6.3-8.2) g/dL Albumin 2.0 L (3.5-5.0) g/dL 12/16/20 12/16/20 12/16/20 Range/Units 04:13 05:14 08:37 RBC (4.30-5.90) m/uL Hgb (13.0-17.5) gm/dL Hct (39.0-53.0) % RDW (11.5-15.5) % Plt Count (150-450) k/uL Lymphocytes # (Manual) (1.0-4.8) k/uL Metamyelocytes # (Man) (0) k/uL ABG pCO2 52 H (35-45) mmHg ABG pO2 110 H (83-108) mmHg ABG HCO3 33 H (21-25) mmol/L ABG Total CO2 35 H (19-24) mmol/L ABG O2 Saturation 98.7 H (94-97) % Sodium (137-145) mmol/L Chloride (98-107) mmol/L Carbon Dioxide (22-30) mmol/L BUN (9-20) mg/dL Creatinine (0.66-1.25) mg/dL Glucose (74-99) mg/dL POC Glucose (mg/dL) 121 H 113 H (75-99) mg/dL Calcium (8.4-10.2) mg/dL ALT (4-49) U/L Total Protein (6.3-8.2) g/dL Albumin (3.5-5.0) g/dL Assessment and Plan (1) GI bleed Narrative/Plan: From a respiratory standpoint patient seems to be doing better. Continue weaning. Monitor hemoglobin. Will remain on surgical standby. Current Visit: Yes Status: Acute Code(s): K92.2 - GASTROINTESTINAL HEMORRHAGE, UNSPECIFIED SNOMED Code(s): 53524191
[2020-12-16 12:11] LABS: Glucose,Whole Blood 131 mg/dL (75-99)
[2020-12-16] MEDS: SODIUM CHLORIDE 0.9% 1,000 ML IV SCH (12:28)
--- NOTE | 2020-12-16 12:41 | P.PN ---
Subjective Progress Note Date: 12/16/20 Principal diagnosis: Acute hypoxic respiratory failure secondary to COVID-19 pneumonia. On 12/10/2020 patient seen in follow-up in intensive care unit, he was intubated and placed on mechanical ventilator last Thursday on 12/07/2020. Patient at the time he has developed worsening hypoxic respiratory failure and acute GI blood loss anemia and Hemorrhagic shock requiring transfusion with 4 units of packed red blood cells, K Sentra infusion for reversal of Eliquis, and she was fluid resuscitated with a total of 7 L of fluid. At the same time she was intubated and placed on mechanical ventilator on which he remains today, he is currently on assist control mode of ventilation with a rate of 30, tidal M is 375, FiO2 of 60% and PEEP of 12. This morning's blood gas shows pO2 of 57, pCO2 of 53 a pH of 7.33, and this was on FiO2 of 60%. Patient has been weaned off the vasopressor support, his Levothroid and vasopressin have been off for over 24 hours, he is currently complaining of a rate of 75 ML per hour, amiodarone is at 0.5 mg per hour, and index is at 1 davon per kilo per minute, Diprivan is a 35 mics per kilo per minute. Patient has not had any further bleeding since yesterday. His chest x-ray shows continued bilateral diffuse airspace disease, with worsening at the left base. Patient is still tachycardic with a rate in the 140s BPM and what appears to be in sinus mechanism. Today's labs have been reviewed, showing improving white count which is down to 19.9, hemoglobin is 7.1, platelet count is 28, sodium is 140, potassium is 4.2, chloride is 111, CO2 is 28, BUN is 86, creatinine 2.91, and the patient's renal profile has slightly worsened since yesterday. His AST is improving and is down to 794 from 2912, ALT is 3274, improving, patient has not had a LDH and CRP done in the last 3 or 4 days. Cortisol level was 35 2 days ago, urinalysis without sign of infection, stool for occult blood was positive, his anticoagulation remains on hold. His PICC line has been removed, and catheter tip culture is pending at this time, all his blood and urine cultures have remained negative thus far. Patient remains on multivitamins, she remains on Decadron currently at 4 mg daily, he is on Protonix 40 mg twice daily, he remains on empiric antibiotics in the form of Zosyn and vancomycin. His urine output has been in the order of 45-50 ML per hour. Patient was reevaluated today on 12/11/2020, remains in the ICU, intubated and mechanically ventilated, sedated and paralyzed. Patient is on assist control rate of 38 tidal volume 375 FiO2 60% and PEEP is 12. ABG showed a pO2 of 58 pCO2 of 54 pH of 7.30. Peak airway pressure is 43 plateau pressure is 35. Drips include amiodarone at 0.5, Nimbex at 1, fentanyl at 25 mcg/kg/m, norepinephrine at 0.04 mcg/kg/m, and IV fluid at 50 mL per hour. Chest x-ray continues to show bilateral infiltrates, not much of a change overall. It is consistent with COVID-19 pneumonia. Labs include WBC count of 23.4 hemoglobin 8.6 platelets are low at 27,000, BUN of 93 creatinine 2.78. Inflammatory markers remain high including elevated LDH of 4 above 4000s CPK 591 and C- reactive protein 5.1 transaminases are high with ALT of 2759 and AST of 234 Medications include albuterol, amiodarone, vitamin C, Peridex, vitamin D3, Nimbex, Decadron 4 mg IV push daily, fentanyl, insulin, norepinephrine, Protonix, Zosyn, zinc. Patient is not on any anticoagulation therapy at this point because of his recent massive bleed requiring 5 units of packed RBCs, hemoglobin today is 8.6 Reevaluated today on12/12/2020, patient remains in the ICU, intubated and mechanically ventilated. Patient remains on assist control rate of 38 tidal volume to 75 FiO2 60% PEEP of 12 ABG today showed a pO2 of 70 pCO2 55 pH of 7.31. Patient remains on multiple drips including propofol and fentanyl, presently off Nimbex, may have to increase his propofol to 50 and fentanyl 2015 document per kilo per minute, and we will titrate dose again if the patient tolerates being off Nimbex. He is also on amiodarone drip at 0.5 mg/m. IV flui ds at KVO. He is receiving enteral feedings. He is to receive 1 unit of platelets today because of low platelets. And considering the patient had negative cultures and no specific positive cultures will discontinue antibiotics. Altogether. Chest x-ray continues to show bilateral infiltrates consistent with COVID-19 pneumonia. Medications are relatively unchanged as noted above, patient is not requiring any norepinephrine, and we have decided to discontinue Nimbex this morning. WBC count today is 19.3 hemoglobin is 8 d- dimer is 2.64. Basic metabolic profile is normal BUN is 99 creatinine 2.55, slightly improved liver enzymes remain elevated with AST of 273 ALT of 03/17/2005, LDH is down to 3869. Patient was reevaluated today on 12/13/2020, remains in the ICU, intubated and mechanically ventilated. Patient has been off Nimbex but maintained on propofol and fentanyl, and I'm hoping I could hold sedation narcotics today in order to assess his mental status if possible today. He is on assist control rate of 38 tidal volume 375 FiO2 55% PEEP of 12 ABG showed a pO2 of 69 pCO2 of 52 pH of 7.38. He is on fentanyl at 0.5 mcg/kg/h he is also on propofol at 35 mcg/kg/m. Patient is receiving tube feeding using vital AF at 45 mL per hour. Patient is on amiodarone at 0.5 mg/m, however I will discontinue amiodarone today and switch him to oral amiodarone via orogastric tube. Platelets remain low at 33,000, hence admitted to start the patient back on anticoagulation therapy. Patient remains on compression stockings. And his renal functioning is hovering around 2.59/creatinine. No more bleeding episodes over the last for 5 days. And not requiring any transfusions. He did get 1 unit of platelets yesterday. Asked x-ray continues to show bilateral infiltrates, not much of a change in his WBC count is 17.1 hemoglobin is 7.4. D-dimer is a bit elevated at 6.38. Electr olytes are normal LDH is coming down 3681 today compared to 4006 just couple of days ago C-reactive protein is 3.4. Patient was reevaluated today on 12/14/2020, remains in the intensive care unit, remains intubated and mechanically ventilated. Ventilator settings are assist control rate of 38 tidal volume 375 FiO2 50% PEEP is 12. ABG showed a pO2 of 78 pCO2 52 pH of 7.44 hence no ventilator changes were made. Drips-carranza the patient is on propofol at 30 mcg/kg/m fentanyl 0.5 mcg/kg/h off Nimbex. Receiving enteral feeding vital HF 45/45. Plan to offer the patient is sedation holiday today and hold sedation. Yesterday patient had sedation holiday, and according to the nurse his mental status was relatively appropriate. And he was following simple instructions. Labs today were reviewed, platelets are low again, no active bleeding. And I'm still holding restarting anticoagulation therapy on this patient. CBC showed WBC count is 15.0 hemoglobin is 7.6. Platelets are 29,000. Basic metabolic profile is relatively normal BUN is 95 creatinine down to 2.11 liver enzymes are improving, ALT is down to 964 LDH is also improving Chest x-ray continues to show bilateral interstitial infiltrates, slight improvement is noted Patient was reevaluated today on 12/15/2020, remains in the ICU, intubated and mechanically ventilated. Ventilator settings are assist control rate of 38 tidal volume of 375 FiO2 50% PEEP is 12 and I cut it down to 10. Peak airway pressure is 3 to plateau pressure is 27. Chest x-ray is showing slight improvement in his bilateral interstitial infiltrates. ABG showed a pO2 of 86 pCO2 54 pH of 7.47 hence his PEEP was cut down to 10 and kept him on 50% FiO2. Drips include fentanyl at 0.25 mg/kg/h and propofol at 25 mcg/kg/m. Patient remains on enteral feeding and his IV fluid is point tenderness saline at 20 mL per hour, patient is receiving free water via orogastric tube because of hyponatremia. Labs showed metabolic alkalosis, hence I'm changing his diuretics from Lasix to Diamox. Labs : WBC count is 10.1 hemoglobin is 7.9, platelets remained low at 24,000, and I'm recommending a unit of platelets to be given today. Electrolytes showed hyponatremia and elevated bicarb of 39 BUN is 92 creatinine 1.89, slightly improved. Patient was reevaluated today on 12/16/20, remains in the ICU, intubated and mechanically ventilated. Ventilator settings are basically unchanged as noted above, assist control rate 38 tidal volume 375 FiO2 50% PEEP of 10 ABG showed a pO2 of 110 pCO2 52 pH of 7.41, hence his FiO2 was decreased down to 45%. Peak airway pressure is 30 and plateau pressure is 26 Chest x-ray continues to show bilateral infiltrates, slightly improved compared to the x-rays over the last few days. Patient remains on propofol at 3 0 mcg/kg/m and fentanyl at 0.25 mcg/kg/h. However these were placed on hold throughout the day yesterday until late last night patient was getting a bit more agitated and restless tachycardic, hence I had to place him back on propofol and fentanyl again. However today I discontinued both, and within an hour I came back to evaluate the patient, and the patient was noted to be opening his eyes, following simple instructions like squeezing hands, wiggling toes, sticking out his tongue, and his mentation seems to be very appropriate, however he is quite lethargic and slow. I recommended that we discontinue fentanyl and propofol again and if we have to use any sort of sedation and it will be Precedex. Labs today showed hemoglobin of 7.1, platelets remained low at 26,000 WBC count is 6.9. Patient will be considered for tracheostomy and PEG tube placement, hence may need a unit of packed RBCs and a unit of platelets tomorrow prior to these procedures. I'm also recommending a PICC line and hopefully could discontinue his right subclavian central line which has been there for about almost 10 days. Electrolytes are improving with better sodium of 146 bicarb is down to 34 renal functioning is improving with a BUN of 78 creatinine 1.86. Liver enzymes remain slightly elevated with ALT of 47 6 and AST of 59. LDH and C-reactive protein from today are pending. Objective - Vital Signs Vital signs: Vital Signs Temp 98.5 F 12/16/20 08:00 Pulse 75 12/16/20 11:00 Resp 24 12/16/20 11:00 BP 116/64 12/16/20 11:00 Pulse Ox 97 12/16/20 11:00 Intake & Output 12/15/20 12/16/20 12/16/20 18:59 06:59 18:59 Intake Total 721 1803.638 447.269 Output Total 1559 8240 8483 Balance -2008 -696.362 -2727.731 Weight 121.2 kg Intake: IV 276 276 138 .9 KVO 240 240 120 Normal Saline Pressure 36 36 18 Bag @ 3mL/hr Intake, IV Titration 100 187.638 39.269 Amount propofoL 1,000 mg In 100 187.638 39.269 Empty Bag 1 bag @ Titrate IV .Q0M [facility] Rx#: [id number] Tube Feeding 90 540 270 Blood Product 255 Platelet Pheresis Pas 255 Psoralen Unit [id number] Other 800 Output: Urine 2730 2500 3175 Other: Voiding Method Indwelling Catheter Indwelling Catheter Indwelling Catheter # Voids 0 # Bowel Movements 1 ABP, PAP, CO, CI - Last Documented Arterial Blood Pressure 136/55 - Exam Gen: This is a 60-year-old obese male, intubated and mechanically ventilated. Sedated with fentanyl and propofol, when these were discontinued, patient woke up and he was noted to be appropriate, and followed simple instructions but remained generally weak and lethargic. HEENT: Head is atraumatic, normocephalic. [place], EOMI, nonicteric, no neck masses, no JVD. Endotracheal tube is intact. Mucous membranes are unremarkable. NECK: Supple. No JVD. No lymphadenopathy. No thyromegaly. LUNGS: Symmetrical chest expansion, minimal crackles at the bases, no rhonchi no wheezes. HEART: Regular rate and rhythm. No murmur. ABDOMEN: obese. Soft. Bowel sounds are present. No masses. No tenderness. EXTREMITIES: 3+ Bipedal edema is noted and there is also scrotal edema noted. Abdominal wall edema is also noted. NEUROLOGICAL: Off fentanyl and propofol, patient was arousable, opens his eyes, wiggles his toes, squeezing hands, stuck out his tongue when he was asked to do so. Psychiatric: Could not fully assess. Skin: No rashes. - Labs CBC & Chem 7: 12/16/20 04:00 12/16/20 04:00 Labs: Abnormal Lab Results - Last 24 Hours (Table) 12/15/20 12/15/20 12/15/20 Range/Units 13:14 18:53 20:19 RBC (4.30-5.90) m/uL Hgb (13.0-17.5) gm/dL Hct (39.0-53.0) % RDW (11.5-15.5) % Plt Count (150-450) k/uL Lymphocytes # (Manual) (1.0-4.8) k/uL Metamyelocytes # (Man) (0) k/uL ABG pCO2 (35-45) mmHg ABG pO2 (83-108) mmHg ABG HCO3 (21-25) mmol/L ABG Total CO2 (19-24) mmol/L ABG O2 Saturation (94-97) % Sodium (137-145) mmol/L Chloride (98-107) mmol/L Carbon Dioxide (22-30) mmol/L BUN (9-20) mg/dL Creatinine (0.66-1.25) mg/dL Glucose (74-99) mg/dL POC Glucose (mg/dL) 147 H 165 H 141 H (75-99) mg/dL Calcium (8.4-10.2) mg/dL ALT (4-49) U/L Total Protein (6.3-8.2) g/dL Albumin (3.5-5.0) g/dL 12/16/20 12/16/20 12/16/20 Range/Units 00:01 04:00 04:00 RBC 2.32 L (4.30-5.90) m/uL Hgb 7.1 L (13.0-17.5) gm/dL Hct 22.7 L (39.0-53.0) % RDW 19.6 H (11.5-15.5) % Plt Count 26 L (150-450) k/uL Lymphocytes # (Manual) 0.48 L (1.0-4.8) k/uL Metamyelocytes # (Man) 0.07 H (0) k/uL ABG pCO2 (35-45) mmHg ABG pO2 (83-108) mmHg ABG HCO3 (21-25) mmol/L ABG Total CO2 (19-24) mmol/L ABG O2 Saturation (94-97) % Sodium 146 H (137-145) mmol/L Chloride 112 H (98-107) mmol/L Carbon Dioxide 34 H (22-30) mmol/L BUN 78 H (9-20) mg/dL Creatinine 1.86 H (0.66-1.25) mg/dL Glucose 114 H (74-99) mg/dL POC Glucose (mg/dL) 103 H (75-99) mg/dL Calcium 7.9 L (8.4-10.2) mg/dL ALT 476 H (4-49) U/L Total Protein 3.9 L (6.3-8.2) g/dL Albumin 2.0 L (3.5-5.0) g/dL 12/16/20 12/16/20 12/16/20 Range/Units 04:13 05:14 08:37 RBC (4.30-5.90) m/uL Hgb (13.0-17.5) gm/dL Hct (39.0-53.0) % RDW (11.5-15.5) % Plt Count (150-450) k/uL Lymphocytes # (Manual) (1.0-4.8) k/uL Metamyelocytes # (Man) (0) k/uL ABG pCO2 52 H (35-45) mmHg ABG pO2 110 H (83-108) mmHg ABG HCO3 33 H (21-25) mmol/L ABG Total CO2 35 H (19-24) mmol/L ABG O2 Saturation 98.7 H (94-97) % Sodium (137-145) mmol/L Chloride (98-107) mmol/L Carbon Dioxide (22-30) mmol/L BUN (9-20) mg/dL Creatinine (0.66-1.25) mg/dL Glucose (74-99) mg/dL POC Glucose (mg/dL) 121 H 113 H (75-99) mg/dL Calcium (8.4-10.2) mg/dL ALT (4-49) U/L Total Protein (6.3-8.2) g/dL Albumin (3.5-5.0) g/dL 12/16/20 Range/Units 12:08 RBC (4.30-5.90) m/uL Hgb (13.0-17.5) gm/dL Hct (39.0-53.0) % RDW (11.5-15.5) % Plt Count (150-450) k/uL Lymphocytes # (Manual) (1.0-4.8) k/uL Metamyelocytes # (Man) (0) k/uL ABG pCO2 (35-45) mmHg ABG pO2 (83-108) mmHg ABG HCO3 (21-25) mmol/L ABG Total CO2 (19-24) mmol/L ABG O2 Saturation (94-97) % Sodium (137-145) mmol/L Chloride (98-107) mmol/L Carbon Dioxide (22-30) mmol/L BUN (9-20) mg/dL Creatinine (0.66-1.25) mg/dL Glucose (74-99) mg/dL POC Glucose (mg/dL) 131 H (75-99) mg/dL Calcium (8.4-10.2) mg/dL ALT (4-49) U/L Total Protein (6.3-8.2) g/dL Albumin (3.5-5.0) g/dL Assessment and Plan Assessment: Impression: Acute hypoxic referral failure secondary to COVID-19 pneumonia, intubated on 12/07/2020, received barictinib on 11/15, patient was outside the window for remdesivir Suspect ARDS secondary to COVID-19 pneumonia , improving, PEEP is down to 10 and FiO2 is down to 45%. Peak airway pressure and plateau pressure are improving Paroxysmal atrial fibrillation, remains on amiodarone, failed cardioversion. Acute GI bleeding requiring mostly blood products and kcentra, presently off anticoagulation therapy Acute thrombocytopenia, no evidence of DIC. May require platelet transfusion once the patient is scheduled to undergo tracheostomy and PEG tube placement. Acute transaminitis/shocked liver, improving. Acute tubular necrosis and acute kidney injury, improving. Patient did not req uire replacement therapy. Obesity with BMI of 40.6. Elevated inflammatory markers secondary to COVID-19 infection. Improving steadily. Repeat CRP and LDH were ordered to be done today Acute metabolic alkalosis, improving with Diamox. And renal output has been excellent with diuresis Recommendation: Discontinue propofol and fentanyl consider using Precedex instead. Continue ventilatory support. Consult surgery for tracheostomy and PEG tube placement and consult interventional radiology for PICC line placement. Family has been aware of the recommendation from 2 days ago. No more paralytics. Continue to monitor daily labs including CBC, basic metabolic profile, inflammatory markers, liver profile, renal profile. Continue Protonix. Continue Decadron. Continue nutritional support, Patient is on enteral feeding. Continue oral amiodarone. Overall prognosis remains relatively poor and guarded.However today he has been the best day clinically for this patient Patient remains critically ill. Critical care time is over 30 minutes Time with Patient: Greater than 30
[2020-12-16 13:05] LABS: C Reactive Protein 4.1 mg/dL (<1.0)
[2020-12-16 15:54] LABS: Glucose,Whole Blood 130 mg/dL (75-99)
[2020-12-16 21:21] LABS: Glucose,Whole Blood 127 mg/dL (75-99)
[2020-12-17 00:16] LABS: Glucose,Whole Blood 108 mg/dL (75-99)
[2020-12-17] MEDS: ARTIFICIAL TEARS-HYPROMELLOSE DROPS 15 ML BTL BOTH EYES SCH ×3 (00:30→08:33)
[2020-12-17] MEDS: INSULIN ASPART (NovoLOG) 100 UNIT/ML VIAL SQ SCH ×6 (03:39→20:54)
[2020-12-17] MEDS: DEXMEDETOMIDINE/0.9% NACL(PMX) 400 MCG in EMPTY BAG 1 BAG IV SCH ×2 (03:42)
[2020-12-17 03:53] LABS: Glucose,Whole Blood 118 mg/dL (75-99)
[2020-12-17 04:13] LABS: Anisocytosis Slight; Basophils % (A) 0 %; Eosinophils # (A) 0.2 k/uL (0-0.7); Eosinophils % (A) 4 %; HCT 24.4 % (39.0-53.0); HGB 7.7 gm/dL (13.0-17.5); Hypochromasia Slight; Lymphocytes # (A) 0.4 k/uL (1.0-4.8); Lymphocytes % (A) 8 %; MCHC 31.7 g/dL (31.0-37.0); MCV 97.9 fL (80.0-100.0); Macrocytosis Slight; Mean Platelet Volume 11.7; Monocytes # (A) 0.2 k/uL (0-1.0); Monocytes % (A) 4 %; Neutrophils # (A) 4.6 k/uL (1.3-7.7); Neutrophils % (A) 83 %; Platelet Count 24 k/uL (150-450); RBC 2.49 m/uL (4.30-5.90); RDW 19.1 % (11.5-15.5); WBC 5.6 k/uL (3.8-10.6)
[2020-12-17 04:35] LABS: C Reactive Protein 3.8 mg/dL (<1.0); Calcium 8.1 mg/dL (8.4-10.2); Potassium 3.6 mmol/L (3.5-5.1)
[2020-12-17 04:39] LABS: Prothrombin Time 10.7 sec (9.0-12.0)
[2020-12-17 05:26] LABS: ABG Base Excess 4.1 mmol/L; ABG HCO3 29 mmol/L (21-25); ABG Oxygen Saturation 98.7 % (94-97); ABG PCO2 45 mmHg (35-45); ABG PH 7.41 (7.35-7.45); ABG PO2 106 mmHg (83-108); ABG TCO2 30 mmol/L (19-24)
[2020-12-17 05:41] LABS: Allen Test Performed? no
[2020-12-17] MEDS: SODIUM CHLORIDE 0.9% 1,000 ML IV SCH (06:29)
[2020-12-17] MEDS: INSULIN DETEMIR (LEVEMIR) 100 UNIT/ML SYR SQ SCH ×2 (06:30→20:54)
[2020-12-17] MEDS: ALBUTEROL HFA INHALER INHALATION PRN ×3 (07:06→15:50)
--- NOTE | 2020-12-17 07:12 | XR ---
EXAMINATION TYPE: XR chest 1V portable DATE OF EXAM: 12/17/2020 COMPARISON: Chest x-ray taken 12/16/2020 HISTORY: Abnormal chest x-ray, intubated TECHNIQUE: Single frontal view of the chest is obtained. FINDINGS: Endotracheal tube, NG tube, right subclavian central venous catheter are stable and overly ing appropriate positions. There may be some slight interval improvement in aeration although overall bilateral airspace disease shows a similar appearance. Is no evident pneumothorax or pleural effusio n. Cardiac mediastinal silhouette is stable. IMPRESSION: Correlate for pneumonia, ARDS
[2020-12-17] MEDS ORDERED: FUROSEMIDE 10 MG/ML 4 ML VIAL IV STA (08:04)
[2020-12-17] MEDS ORDERED: Potassium Replacement Protocol 1 EACH MISC MISCELLANE PRN ×2 (08:14→18:58)
[2020-12-17 08:21] LABS: Glucose,Whole Blood 104 mg/dL (75-99)
[2020-12-17] MEDS: CHLORHEXIDINE GLUCONATE 15 ML CUP MUCOUS MEM SCH ×2 (08:33→20:54)
[2020-12-17] MEDS: CHOLECALCIFEROL 25 MCG (1000 IU) TABLET PO SCH (08:34)
[2020-12-17] MEDS: DEXAMETHASONE SOD PHOSPHATE 4 MG/ML 1 ML VIAL IV SCH (08:34)
[2020-12-17] MEDS: ZINC SULFATE 220 MG CAP PO SCH (08:34)
[2020-12-17] MEDS: ASCORBIC ACID 500 MG TAB PO SCH ×2 (08:34→20:54)
[2020-12-17] MEDS: POTASSIUM CHLORIDE 10 MEQ in WATER FOR INJECTION 1 100ML.BAG IVPB SCH ×2 (08:35→10:09)
--- NOTE | 2020-12-17 08:42 | P.PN ---
Subjective Patient is seen in follow-up for acute kidney injury. Renal function stable. Nonoliguric. On IV Diamox. Bicarb level 29. Intubated. On 45% FiO2. Vital signs are stable. HEENT: Intubated. LUNGS: Breath sounds decreased. HEART: Regular rhythm. ABDOMEN: Soft, obese. EXTREMITITES: 1+ edema. Scrotal edema noted. Objective - Vital Signs Vital signs: Vital Signs Temp 98.3 F 12/16/20 16:00 Pulse 79 12/17/20 07:00 Resp 38 H 12/17/20 07:00 BP 115/59 12/17/20 07:00 Pulse Ox 95 12/17/20 07:00 Intake & Output 12/16/20 12/17/20 12/17/20 18:59 06:59 18:59 Intake Total 0641.057 8564.481 Output Total 4675 2191 Balance -2949.183 -378.519 Weight 116.4 kg Intake: IV 276 299 .9 KVO 240 260 Normal Saline Pressure 36 39 Bag @ 3mL/hr Intake, IV Titration 64.817 38.481 Amount Dexmedetomidine/0.9% NaCl 25.548 38.481 (Pmx) 400 mcg In Empty Bag 1 bag @ 0.2 MCG/KG/HR 6.06 mls/hr IV .[id number] [facility] Rx#:[id number] propofoL 1,000 mg In 39.269 Empty Bag 1 bag @ Titrate IV .Q0M [facility] Rx#: [id number] Tube Feeding 585 675 Other 800 800 Output: Urine 4675 2190 Stool 1 Other: Voiding Method Indwelling Catheter Indwelling Catheter ABP, PAP, CO, CI - Last Documented Arterial Blood Pressure 126/52 - Labs CBC & Chem 7: 12/17/20 04:00 12/17/20 04:00 Labs: Abnormal Lab Results - Last 24 Hours (Table) 12/16/20 12/16/20 12/16/20 Range/Units 04:00 08:37 12:08 RBC (4.30-5.90) m/uL Hgb (13.0-17.5) gm/dL Hct (39.0-53.0) % RDW (11.5-15.5) % Plt Count (150-450) k/uL Lymphocytes # (1.0-4.8) k/uL ABG HCO3 (21-25) mmol/L ABG Total CO2 (19-24) mmol/L ABG O2 Saturation (94-97) % Sodium (137-145) mmol/L Chloride (98-107) mmol/L BUN (9-20) mg/dL Creatinine (0.66-1.25) mg/dL Glucose (74-99) mg/dL POC Glucose (mg/dL) 113 H 131 H (75-99) mg/dL Calcium (8.4-10.2) mg/dL Lactate Dehydrogenase 2552 H (313-618) U/L C-Reactive Protein 4.1 H (<1.0) mg/dL 12/16/20 12/16/20 12/17/20 Range/Units 15:52 21:18 00:14 RBC (4.30-5.90) m/uL Hgb (13.0-17.5) gm/dL Hct (39.0-53.0) % RDW (11.5-15.5) % Plt Count (150-450) k/uL Lymphocytes # (1.0-4.8) k/uL ABG HCO3 (21-25) mmol/L ABG Total CO2 (19-24) mmol/L ABG O2 Saturation (94-97) % Sodium (137-145) mmol/L Chloride (98-107) mmol/L BUN (9-20) mg/dL Creatinine (0.66-1.25) mg/dL Glucose (74-99) mg/dL POC Glucose (mg/dL) 130 H 127 H 108 H (75-99) mg/dL Calcium (8.4-10.2) mg/dL Lactate Dehydrogenase (313-618) U/L C-Reactive Protein (<1.0) mg/dL 12/17/20 12/17/20 12/17/20 Range/Units 03:51 04:00 04:00 RBC 2.49 L (4.30-5.90) m/uL Hgb 7.7 L (13.0-17.5) gm/dL Hct 24.4 L (39.0-53.0) % RDW 19.1 H (11.5-15.5) % Plt Count 24 L (150-450) k/uL Lymphocytes # 0.4 L (1.0-4.8) k/uL ABG HCO3 (21-25) mmol/L ABG Total CO2 (19-24) mmol/L ABG O2 Saturation (94-97) % Sodium 146 H (137-145) mmol/L Chloride 115 H (98-107) mmol/L BUN 70 H (9-20) mg/dL Creatinine 1.58 H (0.66-1.25) mg/dL Glucose 110 H (74-99) mg/dL POC Glucose (mg/dL) 118 H (75-99) mg/dL Calcium 8.1 L (8.4-10.2) mg/dL Lactate Dehydrogenase 2288 H (313-618) U/L C-Reactive Protein 3.8 H (<1.0) mg/dL 12/17/20 12/17/20 Range/Units 05:26 08:20 RBC (4.30-5.90) m/uL Hgb (13.0-17.5) gm/dL Hct (39.0-53.0) % RDW (11.5-15.5) % Plt Count (150-450) k/uL Lymphocytes # (1.0-4.8) k/uL ABG HCO3 29 H (21-25) mmol/L ABG Total CO2 30 H (19-24) mmol/L ABG O2 Saturation 98.7 H (94-97) % Sodium (137-145) mmol/L Chloride (98-107) mmol/L BUN (9-20) mg/dL Creatinine (0.66-1.25) mg/dL Glucose (74-99) mg/dL POC Glucose (mg/dL) 104 H (75-99) mg/dL Calcium (8.4-10.2) mg/dL Lactate Dehydrogenase (313-618) U/L C-Reactive Protein (<1.0) mg/dL Assessment and Plan Plan: Assessment: 1. Acute kidney injury secondary to ATN secondary to septic shock. Baseline creatinine near 1 and peaked at 2.9 on this admission - 1.58 today. Nonoliguric. No hydronephrosis was noted. 2. Hyperkalemia secondary to acute kidney injury and metabolic acidosis. Improved with medical management. 3. Metabolic acidosis secondary to acute kidney injury. Resolved. 4. Septic shock secondary to COVID-19 infection. Off vasopressors. 5. Acute hypoxic respiratory failure. 6. Volume overload. 7. A. fib with RVR on oral amiodarone. 8. Hypernatremia due to free water diuresis. Improved with free water flushes. 9. Metabolic alkalosis secondary to diuresis. Improved with Diamox. Plan: Decrease Diamox to once daily. Repeat Lasix 40 mg IV once today. Increase free water flushes to 400 mL every 4 hours. Wean FiO2. Avoid nephrotoxins. Continue to monitor renal function and urine output. Replace potassium.
[2020-12-17] MEDS: DEXTROSE 5% IN WATER 1,000 ML IV SCH ×2 (10:12→20:54)
[2020-12-17] MEDS: AMIODARONE 200 MG TAB PO SCH ×2 (10:13→20:54)
[2020-12-17] MEDS: PANTOPRAZOLE 40 MG/10 ML VIAL IVP SCH ×2 (10:14→20:54)
[2020-12-17 10:27] LABS: ABG Base Excess 3.8 mmol/L; ABG HCO3 29 mmol/L (21-25); ABG Oxygen Saturation 98.1 % (94-97); ABG PCO2 46 mmHg (35-45); ABG PO2 96 mmHg (83-108); ABG TCO2 30 mmol/L (19-24)
[2020-12-17 10:29] LABS: Allen Test Performed? no
--- NOTE | 2020-12-17 11:04 | P.PN ---
Subjective Progress Note Date: 12/17/20 Principal diagnosis: COVID pneumonia. Acute hypoxic respiratory failure secondary to COVID-19 pneumonia. On 12/10/2020 patient seen in follow-up in intensive care unit, he was i ntubated and placed on mechanical ventilator last Thursday on 12/07/2020. Patient at the time he has developed worsening hypoxic respiratory failure and acute GI blood loss anemia and Hemorrhagic shock requiring transfusion with 4 units of packed red blood cells, K [employer] infusion for reversal of Eliquis, and she was fluid resuscitated with a total of 7 L of fluid. At the same time she was intubated and placed on mechanical ventilator on which he remains today, he is currently on assist control mode of ventilation with a rate of 30, tidal M is 375, FiO2 of 60% and PEEP of 12. This morning's blood gas shows pO2 of 57, pCO2 of 53 a pH of 7.33, and this was on FiO2 of 60%. Patient has been weaned off the vasopressor support, his Levothroid and vasopressin have been off for over 24 hours, he is currently complaining of a rate of 75 ML per hour, amiodarone is at 0.5 mg per hour, and index is at 1 davon per kilo per minute, Diprivan is a 35 mics per kilo per minute. Patient has not had any further bleeding since yesterday. His chest x-ray shows continued bilateral diffuse airspace disease, with worsening at the left base. Patient is still tachycardic with a rate in the 140s BPM and what appears to be in sinus mechanism. Today's labs have been reviewed, showing improving white count which is down to 19.9, hemoglobin is 7.1, platelet count is 28, sodium is 140, potassium is 4.2, chloride is 111, CO2 is 28, BUN is 86, creatinine 2.91, and the patient's renal profile has slightly worsened since yesterday. His AST is improving and is down to 794 from 2912, ALT is 3274, improving, patient has not had a LDH and CRP done in the last 3 or 4 days. Cortisol level was 35 2 days ago, urinalysis without sign of infection, stool for occult blood was positive, his anticoagulation remains on hold. His PICC line has been removed, and catheter tip culture is pending at this time, all his blood and urine cultures have remained negative thus far. Patient remains on multivitamins, she remains on Decadron currently at 4 mg daily, he is on Protonix 40 mg twice daily, he remains on empiric antibiotics in the form of Zosyn and vancomycin. His urine output has been in the order of 45-50 ML per hour. Patient was reevaluated today on 12/11/2020, remains in the ICU, intubated and mechanically ventilated, sedated and paralyzed. Patient is on assist control rate of 38 tidal volume 375 FiO2 60% and PEEP is 12. ABG showed a pO2 of 58 pCO2 of 54 pH of 7.30. Peak airway pressure is 43 plateau pressure is 35. Drips include amiodarone at 0.5, Nimbex at 1, fentanyl at 25 mcg/kg/m, nor epinephrine at 0.04 mcg/kg/m, and IV fluid at 50 mL per hour. Chest x-ray continues to show bilateral infiltrates, not much of a change overall. It is consistent with COVID-19 pneumonia. Labs include WBC count of 23.4 hemoglobin 8.6 platelets are low at 27,000, BUN of 93 creatinine 2.78. Inflammatory markers remain high including elevated LDH of 4 above 4000s CPK 591 and C- reactive protein 5.1 transaminases are high with ALT of 2759 and AST of 234 Medications include albuterol, amiodarone, vitamin C, Peridex, vitamin D3, Nimbex, Decadron 4 mg IV push daily, fentanyl, insulin, norepinephrine, Protonix, Zosyn, zinc. Patient is not on any anticoagulation therapy at this point because of his recent massive bleed requiring 5 units of packed RBCs, hemoglobin today is 8.6 Reevaluated today on12/12/2020, patient remains in the ICU, intubated and mechanically ventilated. Patient remains on assist control rate of 38 tidal volume to 75 FiO2 60% PEEP of 12 ABG today showed a pO2 of 70 pCO2 55 pH of 7.31. Patient remains on multiple drips including propofol and fentanyl, presently off Nimbex, may have to increase his propofol to 50 and fentanyl 2015 document per kilo per minute, and we will titrate dose again if the patient tolerates being off Nimbex. He is also on amiodarone drip at 0.5 mg/m. IV fluids at KVO. He is receiving enteral feedings. He is to receive 1 unit of platelets today because of low platelets. And considering the patient had negative cultures and no specific positive cultures will discontinue antibiotics. Altogether. Chest x-ray continues to show bilateral infiltrates consistent with COVID-19 pneumonia. Medications are relatively unchanged as noted above, patient is not requiring any norepinephrine, and we have decided to discontinue Nimbex this morning. WBC count today is 19.3 hemoglobin is 8 d- dimer is 2.64. Basic metabolic profile is normal BUN is 99 creatinine 2.55, slightly improved liver enzymes remain elevated with AST of 273 ALT of 11/2005, LDH is down to 3869. Patient was reevaluated today on 12/13/2020, remains in the ICU, intubated and mechanically ventilated. Patient has been off Nimbex but maintained on propofol and fentanyl, and I'm hoping I could hold sedation narcotics today in order to assess his mental status if possible today. He is on assist control rate of 38 tidal volume 375 FiO2 55% PEEP of 12 ABG showed a pO2 of 69 pCO2 of 52 pH of 7.38. He is on fentanyl at 0.5 mcg/kg/h he is also on propofol at 35 mcg/kg/m. Patient is receiving tube feeding using vital AF at 45 mL per hour. Patient is on amiodarone at 0.5 mg/m, however I will discontinue amiodarone today and switch him to oral amiodarone via orogastric tube. Platelets remain low at 33,000, hence admitted to start the patient back on anticoagulation therapy. Patient remains on compression stockings. And his renal functioning is hovering around 2.59/creatinine. No more bleeding episodes over the last for 5 days. And not requiring any transfusions. He did get 1 unit of platelets yesterday. Asked x-ray continues to show bilateral infiltrates, not much of a change in his WBC count is 17.1 hemoglobin is 7.4. D-dimer is a bit elevated at 6.38. Electrolytes are normal LDH is coming down 3681 today compared to 4006 just couple of days ago C-reactive protein is 3.4. Patient was reevaluated today on 12/14/2020, remains in the intensive care unit, remains intubated and mechanically ventilated. Ventilator settings are assist control rate of 38 tidal volume 375 FiO2 50% PEEP is 12. ABG showed a pO2 of 78 pCO2 52 pH of 7.44 hence no ventilator changes were made. Drips-carranza the patient is on propofol at 30 mcg/kg/m fentanyl 0.5 mcg/kg/h off Nimbex. Receiving enteral feeding vital HF 45/45. Plan to offer the patient is sedation holiday today and hold sedation. Yesterday patient had sedation holiday, and according to the nurse his mental status was relatively appropriate. And he was following simple instructions. Labs today were reviewed, platelets are low again, no active bleeding. And I'm still holding restarting anticoagulation therapy on this patient. CBC showed WBC count is 15.0 hemoglobin is 7.6. Platelets are 29,000. Basic metabolic profile is relatively normal BUN is 95 creatinine down to 2.11 liver enzymes are improving, ALT is down to 964 LDH is also improving Chest x-ray continues to show bilateral interstitial infiltrates, slight improvement is noted Patient was reevaluated today on 12/15/2020, remains in the ICU, intubated and mechanically ventilated. Ventilator settings are assist control rate of 38 tidal volume of 375 FiO2 50% PEEP is 12 and I cut it down to 10. Peak airway pressure is 3 to plateau pressure is 27. Chest x-ray is showing slight improvement in his bilateral interstitial in filtrates. ABG showed a pO2 of 86 pCO2 54 pH of 7.47 hence his PEEP was cut down to 10 and kept him on 50% FiO2. Drips include fentanyl at 0.25 mg/kg/h and propofol at 25 mcg/kg/m. Patient remains on enteral feeding and his IV fluid is point tenderness saline at 20 mL per hour, patient is receiving free water via orogastric tube because of hyponatremia. Labs showed metabolic alkalosis, hence I'm changing his diuretics from Lasix to Diamox. Labs : WBC count is 10.1 hemoglobin is 7.9, platelets remained low at 24,000, and I'm recommending a unit of platelets to be given today. Electrolytes showed hyponatremia and elevated bicarb of 39 BUN is 92 creatinine 1.89, slightly improved. Patient was reevaluated today on 12/16/20, remains in the ICU, intubated and mechanically ventilated. Ventilator settings are basically unchanged as noted above, assist control rate 38 tidal volume 375 FiO2 50% PEEP of 10 ABG showed a pO2 of 110 pCO2 52 pH of 7.41, hence his FiO2 was decreased down to 45%. Peak airway pressure is 30 and plateau pressure is 26 Chest x-ray continues to show bilateral infiltrates, slightly improved compared to the x-rays over the last few days. Patient remains on propofol at 3 0 mcg/kg/m and fentanyl at 0.25 mcg/kg/h. However these were placed on hold throughout the day yesterday until late last night patient was getting a bit more agitated and restless tachycardic, hence I had to place him back on propofol and fentanyl again. However today I discontinued both, and within an hour I came back to evaluate the patient, and the patient was noted to be opening his eyes, following simple instructions like squeezing hands, wiggling toes, sticking out his tongue, and his mentation seems to be very appropriate, however he is quite lethargic and slow. I recommended that we discontinue fentanyl and propofol again and if we have to use any sort of sedation and it will be Precedex. Labs today showed hemoglobin of 7.1, platelets remained low at 26,000 WBC count is 6.9. Patient will be considered for tracheostomy and PEG tube placement, hence may need a unit of packed RBCs and a unit of platelets tomorrow prior to these procedures. I'm also recommending a PICC line and hopefully could discontinue his right subclavian central line which has been there for about almost 10 days. Electrolytes are improving with better sodium of 146 bicarb is down to 34 renal functioning is improving with a BUN of 78 creatinine 1.86. Liver enzymes remain slightly elevated with ALT of 47 6 and AST of 59. LDH and C-reactive protein from today are pending. Progress note dated 12/17/2020. 60-year-old male again seen in room 256, in the intensive care unit. This patient was admitted to the hospital on November 14. His admission diagnosis was coronavirus associated pneumonia. The patient was intubated and placed on the mechanical ventilator on December 07. On that same day, the patient had a massive GI bleed requiring multiple units of blood and blood products. The patient has been on the ventilator since. Currently, he is on the volume assist control mode, rate 38, tidal volume 375, FiO2 45%, and PEEP of 10. Blood gases show a PaO2 of 106, pCO2 45, and a pH is 7.41. The patient is on 0.05 mcg/kg/m dexmedetomidine. Saline at 10 mL an hour, tube feedings are currently off, and vital AF at 45, with a goal of 45 mL an hour. The patient will have a daily interruption of sedation, and a spontaneous breathing trial, on pressure support of 10 and CPAP of 5. The saline IV will be discontinued in favor of D5W at 75 mL an hour, because of developing hypernatremia and hyperchloremia. Hopefully, we can get this patient extubated in the near future. I did get a call from respiratory, with a weaning parameters, which were excellent. This included a negative inspiratory force of -30, a rapid shallow breathing index of 30, a vital capacity of 1.04 L, respiratory rate 17, tidal volume 620 mL, and a minute volume 10.9 L/m. The patient did have a positive cuff leak, but was a bit sleepy. We will wait a bit longer for the patient to be much more awake. White count 5.6, hemoglobin 7.7, hematocrit 24.4, and platelet count 24,000. Arterial blood gases done at the time of weaning parameters show a PaO2 of 96, pCO2 of 46, and a pH is 7.4. Sodium 146, potassium 3.6, chlorides 1:15, CO2 29, anion gap 2, BUN 70, and creatinine 1.58. Chest x-ray shows diffuse bilateral infiltrates, essentially unchanged. Objective - Vital Signs Vital signs: Vital Signs Temp 99.0 F 12/17/20 08:00 Pulse 80 12/17/20 10:00 Resp 17 12/17/20 10:00 BP 119/57 12/17/20 10:00 Pulse Ox 94 L 12/17/20 10:00 Intake & Output 12/16/20 12/17/20 12/17/20 18:59 06:59 18:59 Intake Total 6437.806 0172.481 200 Output Total 4675 2191 1580 Balance -2949.183 -378.519 -1380 Weight 116.4 kg 116.4 kg Intake: IV 276 299 .9 KVO 240 260 Normal Saline Pressure 36 39 Bag @ 3mL/hr Intake, IV Titration 64.817 38.481 200 Amount Dexmedetomidine/0.9% NaCl 25.548 38.481 (Pmx) 400 mcg In Empty Bag 1 bag @ 0.2 MCG/KG/HR 6.06 mls/hr IV .[id number] [facility] Rx#:[id number] Potassium Chloride 10 meq 200 In Water For Injection 1 100ml.bag @ 100 mls/hr IVPB Q1H [facility] Rx#: [id number] propofoL 1,000 mg In 39.269 Empty Bag 1 bag @ Titrate IV .Q0M [facility] Rx#: [id number] Tube Feeding 585 675 Other 800 800 Output: Urine 4675 2190 1580 Stool 1 Other: Voiding Method Indwelling Catheter Indwelling Catheter Indwelling Catheter # Voids 0 ABP, PAP, CO, CI - Last Documented Arterial Blood Pressure 118/50 - Exam No acute distress, sedated, with an orally placed endotracheal tube and NG tube. HEENT examination is grossly unremarkable. Neck supple. Full range of motion. No adenopathy thyromegaly or neck vein distention. Cardiovascular examination reveals regular rhythm rate. S1-S2 normal. No S3 or S4. No discernible murmur noted. Heart sounds are distant. Heart rate 80 bpm. Lungs reveal Inspiratory and expiratory rhonchi, moderate in severity. Scattered crackles noted. No wheezes. Breath sounds equal bilaterally. Abdomen soft bowel sounds are heard. No masses or tenderness. Extremities are intact. No cyanosis clubbing or edema. Skin is without rash or lesion. Neurologic examination is difficult to assess given his current level of sedation. - Labs CBC & Chem 7: 12/17/20 04:00 12/17/20 04:00 Labs: Abnormal Lab Results - Last 24 Hours (Table) 12/16/20 12/16/20 12/16/20 Range/Units 04:00 12:08 15:52 RBC (4.30-5.90) m/uL Hgb (13.0-17.5) gm/dL Hct (39.0-53.0) % RDW (11.5-15.5) % Plt Count (150-450) k/uL Lymphocytes # (1.0-4.8) k/uL ABG pCO2 (35-45) mmHg ABG HCO3 (21-25) mmol/L ABG Total CO2 (19-24) mmol/L ABG O2 Saturation (94-97) % Sodium (137-145) mmol/L Chloride (98-107) mmol/L BUN (9-20) mg/dL Creatinine (0.66-1.25) mg/dL Glucose (74-99) mg/dL POC Glucose (mg/dL) 131 H 130 H (75-99) mg/dL Calcium (8.4-10.2) mg/dL Lactate Dehydrogenase 2552 H (313-618) U/L C-Reactive Protein 4.1 H (<1.0) mg/dL 12/16/20 12/17/20 12/17/20 Range/Units 21:18 00:14 03:51 RBC (4.30-5.90) m/uL Hgb (13.0-17.5) gm/dL Hct (39.0-53.0) % RDW (11.5-15.5) % Plt Count (150-450) k/uL Lymphocytes # (1.0-4.8) k/uL ABG pCO2 (35-45) mmHg ABG HCO3 (21-25) mmol/L ABG Total CO2 (19-24) mmol/L ABG O2 Saturation (94-97) % Sodium (137-145) mmol/L Chloride (98-107) mmol/L BUN (9-20) mg/dL Creatinine (0.66-1.25) mg/dL Glucose (74-99) mg/dL POC Glucose (mg/dL) 127 H 108 H 118 H (75-99) mg/dL Calcium (8.4-10.2) mg/dL Lactate Dehydrogenase (313-618) U/L C-Reactive Protein (<1.0) mg/dL 12/17/20 12/17/20 12/17/20 Range/Units 04:00 04:00 05:26 RBC 2.49 L (4.30-5.90) m/uL Hgb 7.7 L (13.0-17.5) gm/dL Hct 24.4 L (39.0-53.0) % RDW 19.1 H (11.5-15.5) % Plt Count 24 L (150-450) k/uL Lymphocytes # 0.4 L (1.0-4.8) k/uL ABG pCO2 (35-45) mmHg ABG HCO3 29 H (21-25) mmol/L ABG Total CO2 30 H (19-24) mmol/L ABG O2 Saturation 98.7 H (94-97) % Sodium 146 H (137-145) mmol/L Chloride 115 H (98-107) mmol/L BUN 70 H (9-20) mg/dL Creatinine 1.58 H (0.66-1.25) mg/dL Glucose 110 H (74-99) mg/dL POC Glucose (mg/dL) (75-99) mg/dL Calcium 8.1 L (8.4-10.2) mg/dL Lactate Dehydrogenase 2288 H (313-618) U/L C-Reactive Protein 3.8 H (<1.0) mg/dL 12/17/20 12/17/20 Range/Units 08:20 10:25 RBC (4.30-5.90) m/uL Hgb (13.0-17.5) gm/dL Hct (39.0-53.0) % RDW (11.5-15.5) % Plt Count (150-450) k/uL Lymphocytes # (1.0-4.8) k/uL ABG pCO2 46 H (35-45) mmHg ABG HCO3 29 H (21-25) mmol/L ABG Total CO2 30 H (19-24) mmol/L ABG O2 Saturation 98.1 H (94-97) % Sodium (137-145) mmol/L Chloride (98-107) mmol/L BUN (9-20) mg/dL Creatinine (0.66-1.25) mg/dL Glucose (74-99) mg/dL POC Glucose (mg/dL) 104 H (75-99) mg/dL Calcium (8.4-10.2) mg/dL Lactate Dehydrogenase (313-618) U/L C-Reactive Protein (<1.0) mg/dL Assessment and Plan Assessment: Acute hypoxemic respiratory failure secondary to coronavirus associated pn eumonia, with intubation on 12/07/2020. Acute respiratory distress syndrome. Paroxysmal atrial fibrillation. Acute GI bleed, on 12/07/2020, requiring blood and multiple blood products. Acute thrombocytopenia. Shock liver, improved. ATN/JEYSON. Obesity. Elevated inflammatory markers secondary to coronavirus infection. Metabolic alkalosis, receiving intermittent doses of Diamox. Plan: Plan dated 12/17/2020. The patient will be given a daily interruption of sedation, and a spontaneous breathing trial. Actually, he did very well on a spontaneous breathing trial, but was a bit sleepy. The patient will be assessed later. We'll DC the saline IV in favor of dextrose at 75 mL an hour, secondary to developing hypernatremia and hyperchloremia. Additional recommendations and suggestions are forthcoming. The dexmedetomidine will be held for the time being. Prognosis is guarded. We will continue to see the patient daily basis and make recommendations where appropriate. Time with Patient: Greater than 30
[2020-12-17 11:37] LABS: Glucose,Whole Blood 99 mg/dL (75-99)
--- NOTE | 2020-12-17 14:44 | P.PN ---
Subjective Progress Note Date: 12/17/20 CHIEF COMPLAINT: COVID-19 pneumonia HISTORY OF PRESENT ILLNESS: Surgical service following due to GI bleed. Patient remains in the ICU and on CPAP. They're going to try to extubate him today. Patient did have a small smear of a bowel movement that was brown-black last night. Afebrile. WBC is 5.6 hemoglobin is up from 7.1-7.7. Platelets are 24 PHYSICAL EXAM: VITAL SIGNS: Reviewed. GENERAL: Well-developed in no acute distress. HEENT: No sclera icterus. Extraocular movements grossly intact. Moist buccal mucosa. Head is atraumatic, normocephalic. ABDOMEN: Soft. Nondistended. Nontender. NEUROLOGIC: Patient is sedated ASSESSMENT: 1. Acute GI bleed 2. Acute blood loss anemia requiring blood transfusion during this admission PLAN: -Plan for endoscopy when medically stable -Continue ICU management -Continue supportive care -Continue to monitor hemoglobin -Continue to monitor for any signs or symptoms of bleeding -Continue to hold anticoagulation -Continue PPI Physician Systems Analyst note has been reviewed by physician. Signing provider agrees with the documented findings, assessment, and plan of care. Objective - Vital Signs Vital signs: Vital Signs Temp 98.8 F 12/17/20 12:00 Pulse 79 12/17/20 13:00 Resp 18 12/17/20 13:00 BP 121/62 12/17/20 13:00 Pulse Ox 96 12/17/20 13:00 Intake & Output 12/16/20 12/17/20 12/17/20 18:59 06:59 18:59 Intake Total 1836.092 8989.481 350 Output Total 4675 2191 2605 Balance -2949.183 -378.519 -2255 Weight 116.4 kg 116.4 kg Intake: IV 276 299 .9 KVO 240 260 Normal Saline Pressure 36 39 Bag @ 3mL/hr Intake, IV Titration 64.817 38.481 350 Amount Dexmedetomidine/0.9% NaCl 25.548 38.481 (Pmx) 400 mcg In Empty Bag 1 bag @ 0.2 MCG/KG/HR 6.06 mls/hr IV .[id number] HIRAM Rx#:[id number] Dextrose 5% in Water 1, 150 000 ml @ 75 mls/hr IV . [id number] HIRAM Rx#:[id number] Potassium Chloride 10 meq 200 In Water For Injection 1 100ml.bag @ 100 mls/hr IVPB Q1H HIRAM Rx#: [id number] propofoL 1,000 mg In 39.269 Empty Bag 1 bag @ Titrate IV .Q0M HIRAM Rx#: [id number] Tube Feeding 585 675 Other 800 800 Output: Urine 4675 2190 2605 Stool 1 Other: Voiding Method Indwelling Catheter Indwelling Catheter Indwelling Catheter # Voids 0 ABP, PAP, CO, CI - Last Documented Arterial Blood Pressure 122/55 - Labs CBC & Chem 7: 12/17/20 04:00 12/17/20 04:00 Labs: Abnormal Lab Results - Last 24 Hours (Table) 12/16/20 12/16/20 12/17/20 Range/Units 15:52 21:18 00:14 RBC (4.30-5.90) m/uL Hgb (13.0-17.5) gm/dL Hct (39.0-53.0) % RDW (11.5-15.5) % Plt Count (150-450) k/uL Lymphocytes # (1.0-4.8) k/uL ABG pCO2 (35-45) mmHg ABG HCO3 (21-25) mmol/L ABG Total CO2 (19-24) mmol/L ABG O2 Saturation (94-97) % Sodium (137-145) mmol/L Chloride (98-107) mmol/L BUN (9-20) mg/dL Creatinine (0.66-1.25) mg/dL Glucose (74-99) mg/dL POC Glucose (mg/dL) 130 H 127 H 108 H (75-99) mg/dL Calcium (8.4-10.2) mg/dL Lactate Dehydrogenase (313-618) U/L C-Reactive Protein (<1.0) mg/dL 12/17/20 12/17/20 12/17/20 Range/Units 03:51 04:00 04:00 RBC 2.49 L (4.30-5.90) m/uL Hgb 7.7 L (13.0-17.5) gm/dL Hct 24.4 L (39.0-53.0) % RDW 19.1 H (11.5-15.5) % Plt Count 24 L (150-450) k/uL Lymphocytes # 0.4 L (1.0-4.8) k/uL ABG pCO2 (35-45) mmHg ABG HCO3 (21-25) mmol/L ABG Total CO2 (19-24) mmol/L ABG O2 Saturation (94-97) % Sodium 146 H (137-145) mmol/L Chloride 115 H (98-107) mmol/L BUN 70 H (9-20) mg/dL Creatinine 1.58 H (0.66-1.25) mg/dL Glucose 110 H (74-99) mg/dL POC Glucose (mg/dL) 118 H (75-99) mg/dL Calcium 8.1 L (8.4-10.2) mg/dL Lactate Dehydrogenase 2288 H (313-618) U/L C-Reactive Protein 3.8 H (<1.0) mg/dL 12/17/20 12/17/20 12/17/20 Range/Units 05:26 08:20 10:25 RBC (4.30-5.90) m/uL Hgb (13.0-17.5) gm/dL Hct (39.0-53.0) % RDW (11.5-15.5) % Plt Count (150-450) k/uL Lymphocytes # (1.0-4.8) k/uL ABG pCO2 46 H (35-45) mmHg ABG HCO3 29 H 29 H (21-25) mmol/L ABG Total CO2 30 H 30 H (19-24) mmol/L ABG O2 Saturation 98.7 H 98.1 H (94-97) % Sodium (137-145) mmol/L Chloride (98-107) mmol/L BUN (9-20) mg/dL Creatinine (0.66-1.25) mg/dL Glucose (74-99) mg/dL POC Glucose (mg/dL) 104 H (75-99) mg/dL Calcium (8.4-10.2) mg/dL Lactate Dehydrogenase (313-618) U/L C-Reactive Protein (<1.0) mg/dL
--- NOTE | 2020-12-17 15:33 | P.PN ---
Subjective Progress Note Date: 12/17/20 HISTORY OF PRESENT ILLNESS This is a pleasant 60-year-old gentleman patient of Dr. Ridge Christina. He doesn't see a physician often and does not note any medical diseases, except for obesity. He comes seen secondary to fever and chills, cough, starting December 06 first, along with muscle aches, lack of appetite and diarrhea. he was tested for call bid November 08, which required at week of reporting, subsequently was sent to emergency room secondary to worsening symptoms, including dyspnea on exertion, shortness of breath and worsening cough without hemoptysis. Fever, sh ortness of breath lingers, no treatment given to him prior to this admission. The is vaccinated, but the patient is not. He does not believe in vaccines at that time. He comes in the emergency room, with hypoxemia, with very minimal conversational dyspnea, chest x-ray, shows pulmonary infiltrate consistent with Covid pneumonia, oxygen currently is at 6 L nasal cannula, d-dimer was 0.6, LFTs are minimally elevated, 64 AST, lactic acid 2.0 sodium 132, creatinine of 0.9, glucose of 122, LDH of 888, CRP of 5.7. Urine protein noted, without hematuria or proteinuria. Covid was again retested 11/14, PCR is positive. Consult to Dr. Eduardo and pulmonary,, 11/16: Patient is currently on oxygen at 6 L nasal cannula increased to 7 L with humidified oxygen. Patient seen and followed by pulmonary medicine and has been started on Bariticinib, Decadron 6 mg daily, and prophylactic dose of Lovenox. He is reaching 1750 on incentive spirometry. Patient did have episode of diarrhea yesterday, none today and complains of decreased appetite. Patient complains of nasal congestion and Flonase added. 11/17: Patient had difficulty with oxygenation during the night and this morning transitioned to Airfo and partial nonrebreather. Pulse ox is currently running 90-92%, patient is prone. He has been afebrile, heart rate 88, blood pressure 104/63. Repeat d-dimer is elevated at 0.93. Blood sugar 167. C-reactive protein increased to 5.3. AST is 83 and ALT 51. Blood culture remains with no growth after 48 hours. Repeat chest x-ray reveals mild cardiomegaly with bilateral multifocal opacities consistent with Covid 19 infection. No significant change from most recent x-ray. Albuterol inhaler and Symbicort inhaler added. 11/18: Patient is currently on AirVo and nonrebreather with pulse ox of 93%. He's been afebrile, heart rate 85, blood pressure 103/68. Blood culture no growth at 72 hours 2 specimens. Plan to continue proning. Repeat laboratory studies ordered for tomorrow including inflammatory markers. The patient is having difficulty sleeping and melatonin added. Lovenox increased to twice daily dosing. 11/19: Patient remains in isolation. He is on AirVO plus nonrebreather with pulse ox of 93%. He has been afebrile, heart rate 85, blood pressure 122/69. Patient is found sitting in recliner and encouraged to prone when he is able to. Repeat blood work reveals WBC 12, hemoglobin 14.8, platelet count 282. D-dimer is 1.38. Other blood work is pending. Patient is continued on Decadron, vitamin supplements, Lovenox. He is on day #07/20 of Baricitinib. 11/20: Patient has been afebrile, heart rate 71, blood pressure 107/71, pulse ox 88-93% on AirVo plus nonrebreather. Patient seems to be depressed and frustrated with coarse. Noted that he started on Xanax yesterday by pulmonary. We will add and Remeron 7.5 mg at bedtime. Hemoglobin A1c came back at 6.4. Patient is encouraged to use incentive spirometry, increase activity, prone. Discussed CODE STATUS with patient and he wishes to be a full code. 11/21: Patient will pulse ox of 83% as he was on Airvo only and once nonrebreather was placed she went up to 89%. Patient is not eating much. He has been encouraged to take protein supplement, increase activity and prone but patient does not seem motivated. He was started on Remeron last night which will hopefully help with his mood and appetite. He has continued on Lovenox, dexamethasone, Baricitinib #09/19 repeat blood work reveals WBC 14.3. D-dimer increasing to 3.2. Electrolytes normal, creatinine 0.76. LDH is high at 1476, C-reactive protein stable 6.6. 11/22: Patient continues to be on airflow and nonrebreather and with minimal movement, pulse ox drops down to 82%, otherwise patient is maintaining 92-94%. One dose of IV Lasix ordered for today. Temperature max yesterday afternoon was 101.2. Heart rate in the 70s and 80s. Blood pressure 110/59. Urinalysis was negative for infection. Repeat blood work will be ordered for tomorrow. 11/23: Patient Was moved into ICU overnight. He has been on BiPAP through the night and pulse oxing 95% recently on his side, currently sitting on the edge of the bed pulse oxing 90%, with talking he drops to 83%. He is scheduled for PICC line insertion and plan to start TPN today. Patient has been afebrile, heart rate in the 60s, respiratory rate 28. WBC 12.0, hemoglobin 15, platelet count 351. Lymphocytes 11.1. D-dimer 2.46. Sodium 136, otherwise electrolytes are normal. BUN 30 creatinine 0.7. Blood sugar 128. Magnesium 2.5. Phosphorus 5.5. LDH 1691. C-reactive protein 13.4. Total protein 5.6. Blood cultures remain with no growth. Repeat chest x-ray this morning reveals stable diffuse bilateral infiltrates. Patient is on Baricitinib 10/20. Pulmonary has increased frequency of dexamethasone to twice daily and changed to IV6 mg IV twice daily. 11/24: Patient remain in the ICU, still on BiPAP with pulse ox is improving at this point. Continue dexamethasone and Baricitinib 11/20, patient had full meal this morning his TPN will be suspended after today. Patient will remain in the ICU at least for the next 48 hours. 11/25: Remain in the ICU still on BiPAP but his pulse ox is slightly bit better he still on dexamethasone and Baricitinib 12/20 seems to do slightly but better was agreed by intensive care studies TPN, patient oral intake is slightly but better and had slight improvement compared to yesterday. Surprisingly his marker went up slightly bit specially his LDH up to 2086 with C-reactive protein 3.6 kidney function remained good white blood cell climb up to 15.1 specially been on steroid. Chest x-ray still shows diffuse bilateral interstitial infiltrate and patchy opacification persistent but there is a slight improvement in the variation in the left lower lobe compared to few days earlier. 11/26: Patient remain on BiPAP with 100% oxygen to keep his pulse ox around 92 percentile, his d-dimer continue to be quite bit elevated today is having Doppler of the lower extremity but notes CT at this point. Remain on Symbicort, and albuterol HFA, his white blood cell is down 17,000, blood sugars better control. Chest x-ray still showed patchy infiltrate throughout both lung felix persistent didn't change. Patient had mild anxiety with no pain currently. 11/27: Patient remains in the intensive care unit. He is placed on airflow for eating and pulse ox drops to the 7083 percent range. Pulse ox 90-93% on100% BiPAP. He is afebrile, heart rate in the 70s, respiratory rate 27 and 32, blood pressure 102/71. WBC 21.5, lymphocytes 0.6. D-dimer 7.29. Blood sugars running between 111 and 171. Ferritin level [id number]. ALT 54, alkaline phosphatase 152. CK 27, C-reactive protein 2.9. Repeat chest x-ray reveals borderline cardiomegaly with prominent pulmonary vascular markings. Diffuse increased lung markings are present. Correlate for heart failure. Atypical pneumonia should be considered. Lower extremity ultrasound negative for DVT bilaterally. 11/28: Patient remains in the intensive care unit and found sitting in a chair at the bedside. He is continued on BiPAP and switched over to Arava and nonrebreather for meals. Repeat chest x-ray essentially unchanged. Repeat blood work reveals WBC 20.4, hemoglobin 14.8, platelet count 130. Sodium 134, potassium 4.8, creatinine 0.62. LDH 2934. C-reactive protein 3.3, d-dimer 10.2. CT angiogram of the chest has been ordered by pulmonary medicine which revealed slightly suboptimal study without evidence of acute pulmonary embolism. Mild cardiomegaly with bilateral cities and multifocal organizing consolidations consistent with Covid19 infection. Lovenox has been changed to 40 mg daily and dexamethasone changed to Solu-Medrol 60 mg every 6 hours. Taco michelle has completed course of Baricitinib. 11/29: Patient remains in the intensive care unit, patient is utilizing BiPAP and also Airvo with nonrebreather mask added at times as he tolerates. His ox ygenation seems to be improving at 89-93%. Respiratory rate 24, heart rate 88, blood pressure 107/58. Patient does verbalize that he is feeling somewhat better today. WBC 16.4, hemoglobin 15.1, platelet count 120. D-dimer 13.49, C- reactive protein 2, LDH 2086, CK 47. Repeat chest x-ray reveals correlate for pneumonia, edema or pulmonary hemorrhage, there is cardiomegaly. Patient is currently continued on Lovenox, Solu-Medrol, bronchodilators and vitamin supplements. 11/30: Patient remains in intensive care unit, he sitting in a chair at the bedside. He is feeling a little bit better and breath sounds are sounding a little better from yesterday. He is currently on AirVO. Pulse ox is running 84-87%, he has been afebrile, heart rate in the 80s and 90s, respiratory rate in the 20s, blood pressure 110/67. Repeat blood work reveals WBC 19.4, platelet count 126. D-dimer 10.2, LDH 2157, CK 78, C-reactive protein 1.5. Sodium 135, BUN 44 creatinine 0.73. Patient is continued on Lovenox, IV Solu-Medrol, bronchodilators and supplements. 12/01: Patient remains in ICU, he is currently sitting in chair at the bedside. Patient continues to state that he feels a bit better breath sounds are sounding better compared to yesterday. He is currently on airflow. His pulse ox is running 87-89%, he is still short of breath with conversation. Patient has been afebrile, heart rate 72, respirations 28, blood pressure 109/61. WBC 16.0, hemoglobin 15.1, platelets 112, potassium 4.6, BUN 39, creatinine 0.84. Patient is continued on Lovenox, IV Solu-Medrol, bronchodilators and supplements. 12/02: Patient remains in ICU, he is currently sitting up in a chair at the bedside. Patient continues to have shortness of breath with activity and conversation. His chest x-ray unchanged to prior studies. D-dimer 5.96. Incentive spirometer is at the bedside however encouragement to utilize if needed. Patient has been afebrile, heart rate 85, respirations 28, blood pressure 138/86 pulse ox is 85-89% on Airvo. 12/03, patient remains ICU, he seems to be gradually improving, intending around for the better, has improvement on shortness of breath with conversation, nothing supple she did today for dyspnea, however with movement, he does have shortness of breath while in bed turning around. Patient has an airflow at 65 L, pulse ox 90%. No new fevers, no melena and hematochezia, nutrition is appropriate, and is getting better. 12/04: Patient remains in the intensive care unit. He is onAirVo with nonrebreather mask on standby. He did have a rise in his heart rate up to the 140s, atrial fibrillation with RVR and pulmonary has started the patient on amiodarone drip. He has been afebrile, respiratory rate 28, pulse ox 94-97%. WBC 18.7, hemoglobin 15.5, platelet count 131. Sodium 134, potassium 4.5, chloride 99, CO2 31, BUN 32 and creatinine 0.72. Blood sugars are running between 144 and 193. AST 71, ALT 283, alkaline phosphatase 82. LDH 1946, C- reactive protein 0.6. D-dimer 4.21. Repeat chest x-ray reveals worsening bilateral diffuse interstitial and patchy airspace disease. 12/05: Patient has been taken out of isolation by infection control. He is now on AirVo, FiO2 at 75%. He does have nonrebreather mask on standby but oxygen needs seem to be improving slightly. He seems to be slightly less short of breath. Nephrology has switched him to oral prednisone and off Solu-Medrol. Patient is on eliquis for atrial fibrillation. Heart rate is currently cont rolled and he has been afebrile. Amiodarone has been discontinued, echocardiogram ordered. Pulse ox is 88%, afebrile, blood pressure 111/72 and heart rate in the 80s. conveyor monitor sinus rhythm. Repeat blood work reveals WBC 20.4, hemoglobin 15.2, platelet count 109. Sodium 135, potassium 4.9, chloride 100, CO2 33, BUN 46 and creatinine 0.84. Blood sugars are running between 133 and 231. LDH 1616. 12/06: Patient had difficult is sleeping last night despite use of Remeron and having back pain issues. Tramadol at bedtime ordered. Patient remains in the intensive care unit, he has been moved out of isolation. He continues to be on airflow with pulse ox in the 80s. Blood pressure is soft this morning 85/53 and 92/67 for which fluid bolus of 500 ML's ordered. He's been afebrile, heart rate in the 80s. conveyor monitor sinus rhythm. Metoprolol was increased to 25 mg twice daily. Echocardiogram reveals EF of 50-55%. 12/07: She remains in intensive care unit but is doing poorly this morning. He had a large bright red and mostly dark stool last evening and a repeat this morning. Eliquis has been placed on hold, he is very quite vasopressors and started on levo. He is on Protonix 40 mg IV push twice daily. He is scheduled to receive 2 units of packed RBCs for drop in his hemoglobin to 9.4. He is currently receiving 2 L IV fluid bolus. Stool for occult blood was positive. Consult was added for Dr. Ojeda. He is currently on BiPAP at 100% with pulse ox of 100%, heart rate 104, respiratory rate 27, blood pressure 88/51. Other blood work today reveals WBC of 22.6, platelet count of 94. Creatinine 0.82 with BUN of 64. Blood sugars 173. Lactic acid 2.9. INR is 1.5, PTT 25.5, AST 69, ALT 200, LDH 1474. Alkaline phosphatase 57 urinalysis negative for infection. Patient had a previous colonoscopy with Dr. Reyes that was normal. 12/08: Yesterday, patient required intubation was placed on mechanical ventilation after becoming more hypotensive started on vasopressin and norepinephrine and status post 7 L of IV fluid. He is status post transfusion of a total of 4 units of packed RBCs and hemoglobin is currently at 7.8. He has had no further episodes of GI bleeding. Consult with nephrology has been added, potassium came back at 6.5 CAT scan of the abdomen and chest revealed pulmonary edema which is slightly improved. Evidence of new posterior pneumomediastinum, air around the lower thoracic esophagus. Decreased excretion of delayed images small amount of abdominal ascites. No bowel obstruction. Chest x-ray reveals low lung volume with bilateral multifocal and confluent opacities consistent with COVID-19. Patient was seen yesterday by general surgery and patient was tentatively scheduled for EGD and colonoscopy on 12/10: She remains intubated and on mechanical ventilation with tidal volume 375, FiO2 60, PEEP of 14. Patient went into A. fib with RVR uncontrolled status post bolus of amiodarone and fluid bolus, shock 3 without conversion and is currently at 140 bpm. He remains on norepinephrine and vasopressin but on lower doses. He is also on Nimbex and propofol. Patient is not on anticoagulation at this point due to GI bleed. Patient has been afebrile, respiratory rate 38, but pressure 86/51, pulse ox 97%. Repeat blood work reveals WBC 21.2, hemoglobin 8.5, platelet count 45. BUN 74 creatinine 2.42. Blood sugars running in the 200s and Levemir 10 units twice daily added along with scale. Magnesium 1.7. AST 2912, ALT 5134. Chest x-ray reveals low lung volumes with bilateral mul tifocal and confluent opacities consistent with Covid 19. 12/10: She remains intubated and on mechanical ventilation with tidal volume 375, FiO2 60, PEEP of 12. Heart rate is anywhere from 115 to 130 in a fib. Patient was off vasopressor and Levophed for blood pressure dropped this morning is back on levo fed. He has had good urine output. He is also on Nimbex, propofol and fentanyl drips. He has had no further bloody tarry stools., WBC 27.1, platelet count 232. BUN 86 and creatinine 2.91. Patient is on tube feedings. EGD and colonoscopy are on hold until patient is medically stable. Patient's is at bedside and all questions have been answered. 12/11: Patient remains intubated and on mechanical ventilation with tidal volume 375, FiO2 60, peep 12. One dose of IV Lasix 40 this am. Continues in afib rvr. Patient is to be weaned off pressors today. Medication changes have been made. He is on to prevent, Nimbex and continues on amiodarone drip. Plan is for sedation holiday if patient does well. He has had good urine output. His had no bowel movement since the GI bleed. Tube feedings are to start. He has been afebrile, heart rate is running up to the 130s, blood pressure 104/63, pulse ox 94%. Blood sugars are well controlled with current regime. Leukocytosis is slowly improving at 23.4, hemoglobin today is 8.6, platelet count 27. BUN 93 and creatinine 2.78, potassium 4.4. Inflammatory markers: Ferritin 17,090, LDH 4086, CK 591, C-reactive protein 5.1, d-dimer 2.34. Repeat chest x-ray report is unchanged. 12/12: Patient remains in intensive care unit intubated on mechanical ventilation with tidal volume 375, FiO2 60 and PEEP of 12. Patient has converted to a sinus rhythm and appears to be quite comfortable on ventilator. He is currently on propofol, fentanyl. Patient has been started on tube feedings and is tolerating. No bloody stools. Repeat chest x-ray reveals diffuse infiltrate appears stable. Multiple lines. WBC 19.3, hemoglobin 8, platelet count 22. D- dimer 2.64. BUN 99 creatinine 2.44. Blood sugars are running 130s 140s. Ferr itin 12,375, total bilirubin 1.5, AST 273, ALT 1906, alkaline phosphatase 128, LDH 3869, CK 334, C-reactive protein 4.8. Patient is status post transfusion of 1 unit of platelets. He has been continued on dexamethasone 4 mg IV daily, IV antibiotics in form of vancomycin, Zosyn was discontinued. Patient's is at the bedside all questions have been answered. 12/13: Patient remains in intensive care unit on mechanical ventilation with tidal volume 375, FiO2 55 and PEEP of 12. Patient is scheduled for a sedation holiday this afternoon. He has had good urine output. conveyor monitor sinus r hythm. Blood pressure 148/55 and heart rate in the 80s. Patient's and son are at the bedside. Repeat blood work reveals WBC 17.1, hemoglobin 7.4, platelet count 33. D-dimer 6.38. BUN 102 and creatinine 2.59. Blood sugars are running in the 1 teens and 126. Ferritin level 9362, LDH 3681, C-reactive protein 3.4. Patient is on oral amiodarone. Patient's been started on tube feedings. 12/14: Patient remains in the intensive care unit. Family members are at bedside. Patient did well with a 30 minute sedation holiday and propofol and fentanyl were decreased. He is currently on tidal volume 375, FiO2 50 and PEEP of 12. conveyor monitor is a sinus rhythm, heart rate 85, blood pressure 138/64, pulse ox 96%. Patient is ordered for 2 doses of Lasix per nephrology today and is diuresing well. He is on tube feedings and tolerating. He did have a small all movement but no blood. WBC 15, hemoglobin 7.6, platelet count 29. Sodium 146, potassium 3.9, chloride 111, CO2 33, BUN 95 and creatinine 2.11. Blood sugars are running 113-125. AST 120, ALT 964, alkaline phosphatase 122. 12/17: She remains in intensive care unit intubated and on mechanical ventilation with tidal volume 375, FiO2 45 and PEEP of 5. Patient is undergoing daily sedation holidays and currently on BiPAP. He has been afebrile, heart rate in the 80s and 90s, blood pressure 120/58, pulse ox 95%. Repeat blood work reveals WBC 5.6, hemoglobin 7.7, platelet count 24. Sodium 146, potassium 3.6, chloride 115, BUN 17 creatinine 1.58. Blood sugars are running in the 110s and 120s. HDH 2288. Repeat chest x-ray reveals correlate for pneumonia, ARDS. Patient's and family are at the bedside and all questions are answered. REVIEW OF SYSTEMS Unable to obtain as patient is intubated and on mechanical ventilation PHYSICAL EXAMINATION Gen: This is a 60-year-old obese male in the ICU intubated and on mechanical ventilation and appears to be comfortable. Patient's and son at bedside. HEENT: Head is atraumatic, normocephalic. Pupils equal, round. Sclerae is anicteric, conjunctiva edema. Oral ET and gastric tubes in place, tube feedings in place. NECK: Supple. No JVD. No lymphadenopathy. No thyromegaly. LUNGS: Diminished with crackles in the bilateral bases. HEART: Regular rate and rhythm. No murmur. conveyor monitor is a sinus rhythm. ABDOMEN: obese. Soft. Bowel sounds are present. No masses. No tenderness. Mackenzie catheter draining clear frederick urine with good urine output. EXTREMITIES: His bilateral pedal edema. No calf tenderness. NEUROLOGICAL: Patient is sedated. ASSESSMENT AND PLAN 1. Acute respiratory failure: Secondary to COVID-19 requiring intubation and mechanical ventilation, with possible secondary bacterial pneumonia, pulmonary medicine, continue Ventolin inhaler, dexamethasone 4 mg IV daily,vitamin supplements. Patient is off Lovenox/eliquis due to GI bleed. continue sedation holidays per pulmonary medicine 2. Sepsis (POA) secondary to COVID-19 pneumonia, with acute hypoxemic respiratory failure, diagnosis was of 11/08/2020. 3. Moderate protein calorie malnutrition secondary to poor oral intake. Oral gastric feedings. 4. New-onset atrial fibrillation with RVR, paroxysmal atrial fibrillation. Continue oral amiodarone 200 mg twice daily, Eliquis placed on hold due to GI bleed. Echocardiogram as above. 5. Thrombocytopenia secondary to sepsis. No anticoagulation due to thrombocytopenia, GI bleed. Transfusion of 1 unit of platelets. 6. Acute GI bleed with acute blood loss anemia. Eliquis placed on hold, 4 units packed RBCs, IV fluid boluses, consult with Dr. Ojeda appreciated. EGD and colonoscopy once patient is stabilized, Dr. Lester is following. 7. Acute hypovolemic shock or septic shock requiring vasopressors, massive IV fluid resuscitation. Patient is off vasopressors and blood pressure has been stable. 8. Acute kidney injury with ATN secondary to septic shock. Consult with nephrology appreciated. Patient has had good urine output. IV Lasix 2 today. 9. Metabolic acidosis secondary to acute kidney injury. 10. Severe hyperkalemia secondary to acute kidney injury. Followed by nephrology. 11. Shock liver secondary to hypotension. Monitor liver function test. 12. DVT prophylaxis. 13. GI prophylaxis. Protonic. 14. BPH. Mackenzie catheter 15. Proteinuria, unknown cause. 16. Dymetabolic syndrome, monitor for hyperglycemia, A1c 6.4. NovoLog scale every 4 hours, added Levemir 12 units twice daily. 17. Back pain. CODE Status: Full code Prognosis: guarded. Impression and plan of care have been directed as dictated by the signing physician. Sanam Valentine nurse practitioner acting as scribe for signing physician. Objective - Vital Signs Vital signs: Vital Signs Temp 99.0 F 12/17/20 08:00 Pulse 82 12/17/20 11:00 Resp 17 12/17/20 11:00 BP 119/69 12/17/20 11:00 Pulse Ox 96 12/17/20 11:00 Intake & Output 12/16/20 12/17/20 12/17/20 18:59 06:59 18:59 Intake Total 3955.570 1325.481 275 Output Total 9626 9981 1257 Balance -2949.183 -378.519 -1980 Weight 116.4 kg 116.4 kg Intake: IV 276 299 .9 KVO 240 260 Normal Saline Pressure 36 39 Bag @ 3mL/hr Intake, IV Titration 64.817 38.481 275 Amount Dexmedetomidine/0.9% NaCl 25.548 38.481 (Pmx) 400 mcg In Empty Bag 1 bag @ 0.2 MCG/KG/HR 6.06 mls/hr IV .[id number] [facility] Rx#:[id number] Dextrose 5% in Water 1, 75 000 ml @ 75 mls/hr IV . [id number] [facility] Rx#:[id number] Potassium Chloride 10 meq 200 In Water For Injection 1 100ml.bag @ 100 mls/hr IVPB Q1H [facility] Rx#: [id number] propofoL 1,000 mg In 39.269 Empty Bag 1 bag @ Titrate IV .Q0M [facility] Rx#: [id number] Tube Feeding 585 675 Other 800 800 Output: Urine 4675 2190 2255 Stool 1 Other: Voiding Method Indwelling Catheter Indwelling Catheter Indwelling Catheter # Voids 0 ABP, PAP, CO, CI - Last Documented Arterial Blood Pressure 130/59 - Labs CBC & Chem 7: 12/17/20 04:00 12/17/20 15:00 Labs: Abnormal Lab Results - Last 24 Hours (Table) 12/16/20 12/16/20 12/16/20 Range/Units 04:00 12:08 15:52 RBC (4.30-5.90) m/uL Hgb (13.0-17.5) gm/dL Hct (39.0-53.0) % RDW (11.5-15.5) % Plt Count (150-450) k/uL Lymphocytes # (1.0-4.8) k/uL ABG pCO2 (35-45) mmHg ABG HCO3 (21-25) mmol/L ABG Total CO2 (19-24) mmol/L ABG O2 Saturation (94-97) % Sodium (137-145) mmol/L Chloride (98-107) mmol/L BUN (9-20) mg/dL Creatinine (0.66-1.25) mg/dL Glucose (74-99) mg/dL POC Glucose (mg/dL) 131 H 130 H (75-99) mg/dL Calcium (8.4-10.2) mg/dL Lactate Dehydrogenase 2552 H (313-618) U/L C-Reactive Protein 4.1 H (<1.0) mg/dL 12/16/20 12/17/20 12/17/20 Range/Units 21:18 00:14 03:51 RBC (4.30-5.90) m/uL Hgb (13.0-17.5) gm/dL Hct (39.0-53.0) % RDW (11.5-15.5) % Plt Count (150-450) k/uL Lymphocytes # (1.0-4.8) k/uL ABG pCO2 (35-45) mmHg ABG HCO3 (21-25) mmol/L ABG Total CO2 (19-24) mmol/L ABG O2 Saturation (94-97) % Sodium (137-145) mmol/L Chloride (98-107) mmol/L BUN (9-20) mg/dL Creatinine (0.66-1.25) mg/dL Glucose (74-99) mg/dL POC Glucose (mg/dL) 127 H 108 H 118 H (75-99) mg/dL Calcium (8.4-10.2) mg/dL Lactate Dehydrogenase (313-618) U/L C-Reactive Protein (<1.0) mg/dL 12/17/20 12/17/20 12/17/20 Range/Units 04:00 04:00 05:26 RBC 2.49 L (4.30-5.90) m/uL Hgb 7.7 L (13.0-17.5) gm/dL Hct 24.4 L (39.0-53.0) % RDW 19.1 H (11.5-15.5) % Plt Count 24 L (150-450) k/uL Lymphocytes # 0.4 L (1.0-4.8) k/uL ABG pCO2 (35-45) mmHg ABG HCO3 29 H (21-25) mmol/L ABG Total CO2 30 H (19-24) mmol/L ABG O2 Saturation 98.7 H (94-97) % Sodium 146 H (137-145) mmol/L Chloride 115 H (98-107) mmol/L BUN 70 H (9-20) mg/dL Creatinine 1.58 H (0.66-1.25) mg/dL Glucose 110 H (74-99) mg/dL POC Glucose (mg/dL) (75-99) mg/dL Calcium 8.1 L (8.4-10.2) mg/dL Lactate Dehydrogenase 2288 H (313-618) U/L C-Reactive Protein 3.8 H (<1.0) mg/dL 12/17/20 12/17/20 Range/Units 08:20 10:25 RBC (4.30-5.90) m/uL Hgb (13.0-17.5) gm/dL Hct (39.0-53.0) % RDW (11.5-15.5) % Plt Count (150-450) k/uL Lymphocytes # (1.0-4.8) k/uL ABG pCO2 46 H (35-45) mmHg ABG HCO3 29 H (21-25) mmol/L ABG Total CO2 30 H (19-24) mmol/L ABG O2 Saturation 98.1 H (94-97) % Sodium (137-145) mmol/L Chloride (98-107) mmol/L BUN (9-20) mg/dL Creatinine (0.66-1.25) mg/dL Glucose (74-99) mg/dL POC Glucose (mg/dL) 104 H (75-99) mg/dL Calcium (8.4-10.2) mg/dL Lactate Dehydrogenase (313-618) U/L C-Reactive Protein (<1.0) mg/dL
[2020-12-17 16:18] LABS: Glucose,Whole Blood 124 mg/dL (75-99)
[2020-12-17] MEDS ORDERED: POTASSIUM BICARBONATE/CIT AC 20 MEQ TABLET.EFF NG-TUBE SCH (19:00)
[2020-12-17 20:50] LABS: Glucose,Whole Blood 141 mg/dL (75-99)
[2020-12-18 00:40] LABS: Glucose,Whole Blood 114 mg/dL (75-99)
[2020-12-18] MEDS: INSULIN ASPART (NovoLOG) 100 UNIT/ML VIAL SQ SCH ×6 (01:27→20:42)
[2020-12-18 04:27] LABS: Glucose,Whole Blood 138 mg/dL (75-99)
[2020-12-18] MEDS: SODIUM CHLORIDE 0.9% 1,000 ML IV SCH (04:29)
[2020-12-18 04:34] LABS: Anisocytosis Slight; Basophils % (A) 0 %; Eosinophils # (A) 0.1 k/uL (0-0.7); Eosinophils % (A) 2 %; HCT 21.4 % (39.0-53.0); Hypochromasia Slight; Lymphocytes # (A) 0.4 k/uL (1.0-4.8); Lymphocytes % (A) 11 %; MCH 30.9 pg (25.0-35.0); MCHC 31.9 g/dL (31.0-37.0); MCV 96.9 fL (80.0-100.0); Macrocytosis Slight; Mean Platelet Volume 12.2; Monocytes # (A) 0.2 k/uL (0-1.0); Monocytes % (A) 6 %; Neutrophils # (A) 3.1 k/uL (1.3-7.7); Neutrophils % (A) 79 %; Platelet Count 30 k/uL (150-450); RBC 2.21 m/uL (4.30-5.90); RDW 18.6 % (11.5-15.5)
[2020-12-18 04:43] LABS: HGB 6.8 gm/dL (13.0-17.5)
[2020-12-18 04:54] LABS: ABG Base Excess 0.5 mmol/L; ABG HCO3 24 mmol/L (21-25); ABG PCO2 34 mmHg (35-45); ABG PH 7.46 (7.35-7.45); ABG PO2 78 mmHg (83-108); ABG TCO2 25 mmol/L (19-24); Allen Test Performed? Yes
[2020-12-18 05:18] LABS: Calcium 7.7 mg/dL (8.4-10.2); Potassium 3.3 mmol/L (3.5-5.1)
--- NOTE | 2020-12-18 05:27 | XR ---
EXAMINATION TYPE: XR chest 1V portable DATE OF EXAM: 12/18/2020 CLINICAL HISTORY: Difficulty breathing progress study. TECHNIQUE: Single AP portable semiupright view of the chest is obtained. COMPARISON: Chest x-ray from one day earlier and older studies. FINDINGS: Stable endotracheal and orogastric tubes. Stable right-sided subclavian central venous cat heter. Bilateral multifocal opacities greater in the left lung redemonstrated. Cardiac silhouette siz e is stable and mildly enlarged. Osseous structures are intact. IMPRESSION: Mild cardiomegaly with left greater than right bilateral multifocal opacities consistent with known covid-19 infection are redemonstrated. No significant change from one day earlier.
[2020-12-18] MEDS: POTASSIUM BICARBONATE/CIT AC 20 MEQ TABLET.EFF NG-TUBE SCH ×3 (06:07→08:03)
[2020-12-18] MEDS: ALBUTEROL HFA INHALER INHALATION PRN ×2 (07:43→15:10)
[2020-12-18] MEDS ORDERED: FUROSEMIDE 10 MG/ML 4 ML VIAL IV STA (08:06)
[2020-12-18 08:27] LABS: Glucose,Whole Blood 113 mg/dL (75-99)
--- NOTE | 2020-12-18 08:48 | P.PN ---
Subjective Patient is seen in follow-up for acute kidney injury. Renal function slowly improving. Nonoliguric. On IV Diamox. Bicarb level 25. Intubated. Awake on the vent. Vital signs are stable. HEENT: Intubated. LUNGS: Breath sounds decreased. HEART: Regular rhythm. ABDOMEN: Soft, obese. EXTREMITITES: 1+ edema. Scrotal edema noted. Objective - Vital Signs Vital signs: Vital Signs Temp 99.4 F 12/18/20 08:40 Pulse 87 12/18/20 08:40 Resp 19 12/18/20 08:40 BP 137/57 12/18/20 08:40 Pulse Ox 98 12/18/20 08:40 Intake & Output 12/17/20 12/18/20 12/18/20 18:59 06:59 18:59 Intake Total 1140 2228 78 Output Total 3580 2286 175 Balance -2440 -58 -97 Weight 116.4 kg 117.7 kg Intake: IV 858 78 Dextrose 5% in Water 1, 825 75 000 ml @ 75 mls/hr IV . [id number] [facility] Rx#:[id number] Normal Saline Pressure 33 3 Bag @ 3mL/hr Intake, IV Titration 650 75 Amount Dextrose 5% in Water 1, 450 75 000 ml @ 75 mls/hr IV . [id number] [facility] Rx#:[id number] Potassium Chloride 10 meq 200 In Water For Injection 1 100ml.bag @ 100 mls/hr IVPB Q1H [facility] Rx#: [id number] Tube Feeding 90 495 Blood Product 0 Rc As-1 Unit 0 [id number] Other 400 800 Output: Urine 3580 2285 175 Stool 1 Other: Voiding Method Indwelling Catheter Indwelling Catheter # Voids 0 ABP, PAP, CO, CI - Last Documented Arterial Blood Pressure 108/52 - Labs CBC & Chem 7: 12/18/20 04:25 12/18/20 04:25 Labs: Abnormal Lab Results - Last 24 Hours (Table) 12/16/20 12/17/20 12/17/20 Range/Units 14:54 10:25 16:17 RBC (4.30-5.90) m/uL Hgb (13.0-17.5) gm/dL Hct (39.0-53.0) % RDW (11.5-15.5) % Plt Count (150-450) k/uL Lymphocytes # (1.0-4.8) k/uL ABG pH (7.35-7.45) ABG pCO2 46 H (35-45) mmHg ABG pO2 (83-108) mmHg ABG HCO3 29 H (21-25) mmol/L ABG Total CO2 30 H (19-24) mmol/L ABG O2 Saturation 98.1 H (94-97) % Potassium (3.5-5.1) mmol/L Chloride (98-107) mmol/L BUN (9-20) mg/dL Creatinine (0.66-1.25) mg/dL Glucose (74-99) mg/dL POC Glucose (mg/dL) 124 H (75-99) mg/dL Calcium (8.4-10.2) mg/dL Lactate Dehydrogenase (313-618) U/L C-Reactive Protein (<1.0) mg/dL Crossmatch See Detail 12/17/20 12/18/20 12/18/20 Range/Units 20:49 00:39 04:25 RBC (4.30-5.90) m/uL Hgb (13.0-17.5) gm/dL Hct (39.0-53.0) % RDW (11.5-15.5) % Plt Count (150-450) k/uL Lymphocytes # (1.0-4.8) k/uL ABG pH (7.35-7.45) ABG pCO2 (35-45) mmHg ABG pO2 (83-108) mmHg ABG HCO3 (21-25) mmol/L ABG Total CO2 (19-24) mmol/L ABG O2 Saturation (94-97) % Potassium (3.5-5.1) mmol/L Chloride (98-107) mmol/L BUN (9-20) mg/dL Creatinine (0.66-1.25) mg/dL Glucose (74-99) mg/dL POC Glucose (mg/dL) 141 H 114 H 138 H (75-99) mg/dL Calcium (8.4-10.2) mg/dL Lactate Dehydrogenase (313-618) U/L C-Reactive Protein (<1.0) mg/dL Crossmatch 12/18/20 12/18/20 12/18/20 Range/Units 04:25 04:25 04:50 RBC 2.21 L (4.30-5.90) m/uL Hgb 6.8 L* (13.0-17.5) gm/dL Hct 21.4 L (39.0-53.0) % RDW 18.6 H (11.5-15.5) % Plt Count 30 L (150-450) k/uL Lymphocytes # 0.4 L (1.0-4.8) k/uL ABG pH 7.46 H (7.35-7.45) ABG pCO2 34 L (35-45) mmHg ABG pO2 78 L (83-108) mmHg ABG HCO3 (21-25) mmol/L ABG Total CO2 25 H (19-24) mmol/L ABG O2 Saturation (94-97) % Potassium 3.3 L (3.5-5.1) mmol/L Chloride 115 H (98-107) mmol/L BUN 64 H (9-20) mg/dL Creatinine 1.44 H (0.66-1.25) mg/dL Glucose 118 H (74-99) mg/dL POC Glucose (mg/dL) (75-99) mg/dL Calcium 7.7 L (8.4-10.2) mg/dL Lactate Dehydrogenase 1857 H (313-618) U/L C-Reactive Protein 4.0 H (<1.0) mg/dL Crossmatch 12/18/20 Range/Units 08:26 RBC (4.30-5.90) m/uL Hgb (13.0-17.5) gm/dL Hct (39.0-53.0) % RDW (11.5-15.5) % Plt Count (150-450) k/uL Lymphocytes # (1.0-4.8) k/uL ABG pH (7.35-7.45) ABG pCO2 (35-45) mmHg ABG pO2 (83-108) mmHg ABG HCO3 (21-25) mmol/L ABG Total CO2 (19-24) mmol/L ABG O2 Saturation (94-97) % Potassium (3.5-5.1) mmol/L Chloride (98-107) mmol/L BUN (9-20) mg/dL Creatinine (0.66-1.25) mg/dL Glucose (74-99) mg/dL POC Glucose (mg/dL) 113 H (75-99) mg/dL Calcium (8.4-10.2) mg/dL Lactate Dehydrogenase (313-618) U/L C-Reactive Protein (<1.0) mg/dL Crossmatch Assessment and Plan Plan: Assessment: 1. Acute kidney injury secondary to ATN secondary to septic shock. Baseline creatinine near 1 and peaked at 2.9 on this admission - 1.44 today. Nonoliguric. No hydronephrosis was noted. 2. Hyperkalemia secondary to acute kidney injury and metabolic acidosis. Improved with medical management. 3. Metabolic acidosis secondary to acute kidney injury. Resolved. 4. Septic shock secondary to COVID-19 infection. Off vasopressors. 5. Acute hypoxic respiratory failure. 6. Volume overload. Improving with diuresis. 7. A. fib with RVR on oral amiodarone. 8. Hypernatremia due to free water diuresis. Improved with free water flushes. 9. Metabolic alkalosis secondary to diuresis. Improved with Diamox. 10. Hypokalemia from diuresis. 11. Acute blood loss anemia. No active bleeding. Plan: Stop Diamox. Scheduled to receive 2 units of packed red cells today. Lasix 40 mg IV between blood transfusion. Maintain free water flushes at 400 mL every 4 hours. Wean FiO2. Possible extubation today. Avoid nephrotoxins. Continue to monitor renal function and urine output. Replace potassium - patient refused replacement this morning.
[2020-12-18] MEDS: INSULIN DETEMIR (LEVEMIR) 100 UNIT/ML SYR SQ SCH ×2 (08:56→20:42)
[2020-12-18] MEDS: CHLORHEXIDINE GLUCONATE 15 ML CUP MUCOUS MEM SCH (09:00)
[2020-12-18] MEDS: ASCORBIC ACID 500 MG TAB PO SCH ×2 (09:01→20:32)
[2020-12-18] MEDS: CHOLECALCIFEROL 25 MCG (1000 IU) TABLET PO SCH (09:01)
[2020-12-18] MEDS: ZINC SULFATE 220 MG CAP PO SCH (09:03)
[2020-12-18] MEDS: ENOXAPARIN 30 MG/0.3 ML SYRINGE SQ SCH (09:16)
[2020-12-18] MEDS: PANTOPRAZOLE 40 MG/10 ML VIAL IVP SCH ×2 (09:17→20:32)
[2020-12-18] MEDS: DEXAMETHASONE SOD PHOSPHATE 4 MG/ML 1 ML VIAL IV SCH (09:17)
--- NOTE | 2020-12-18 09:48 | P.PN ---
Subjective Progress Note Date: 12/18/20 Principal diagnosis: COVID pneumonia. Acute hypoxic respiratory failure secondary to COVID-19 pneumonia. On 12/10/2020 patient seen in follow-up in intensive care unit, he was i ntubated and placed on mechanical ventilator last Thursday on 12/07/2020. Patient at the time he has developed worsening hypoxic respiratory failure and acute GI blood loss anemia and Hemorrhagic shock requiring transfusion with 4 units of packed red blood cells, [facility] infusion for reversal of Eliquis, and she was fluid resuscitated with a total of 7 L of fluid. At the same time she was intubated and placed on mechanical ventilator on which he remains today, he is currently on assist control mode of ventilation with a rate of 30, tidal M is 375, FiO2 of 60% and PEEP of 12. This morning's blood gas shows pO2 of 57, pCO2 of 53 a pH of 7.33, and this was on FiO2 of 60%. Patient has been weaned off the vasopressor support, his Levothroid and vasopressin have been off for over 24 hours, he is currently complaining of a rate of 75 ML per hour, amiodarone is at 0.5 mg per hour, and index is at 1 davon per kilo per minute, Diprivan is a 35 mics per kilo per minute. Patient has not had any further bleeding since yesterday. His chest x-ray shows continued bilateral diffuse airspace disease, with worsening at the left base. Patient is still tachycardic with a rate in the 140s BPM and what appears to be in sinus mechanism. Today's labs have been reviewed, showing improving white count which is down to 19.9, hemoglobin is 7.1, platelet count is 28, sodium is 140, potassium is 4.2, chloride is 111, CO2 is 28, BUN is 86, creatinine 2.91, and the patient's renal profile has slightly worsened since yesterday. His AST is improving and is down to 794 from 2912, ALT is 3274, improving, patient has not had a LDH and CRP done in the last 3 or 4 days. Cortisol level was 35 2 days ago, urinalysis without sign of infection, stool for occult blood was positive, his anticoagulation remains on hold. His PICC line has been removed, and catheter tip culture is pending at this time, all his blood and urine cultures have remained negative thus far. Patient remains on multivitamins, she remains on Decadron currently at 4 mg daily, he is on Protonix 40 mg twice daily, he remains on empiric antibiotics in the form of Zosyn and vancomycin. His urine output has been in the order of 45-50 ML per hour. Patient was reevaluated today on 12/11/2020, remains in the ICU, intubated and mechanically ventilated, sedated and paralyzed. Patient is on assist control rate of 38 tidal volume 375 FiO2 60% and PEEP is 12. ABG showed a pO2 of 58 pCO2 of 54 pH of 7.30. Peak airway pressure is 43 plateau pressure is 35. Drips include amiodarone at 0.5, Nimbex at 1, fentanyl at 25 mcg/kg/m, nor epinephrine at 0.04 mcg/kg/m, and IV fluid at 50 mL per hour. Chest x-ray continues to show bilateral infiltrates, not much of a change overall. It is consistent with COVID-19 pneumonia. Labs include WBC count of 23.4 hemoglobin 8.6 platelets are low at 27,000, BUN of 93 creatinine 2.78. Inflammatory markers remain high including elevated LDH of 4 above 4000s CPK 591 and C- reactive protein 5.1 transaminases are high with ALT of 2759 and AST of 234 Medications include albuterol, amiodarone, vitamin C, Peridex, vitamin D3, Nimbex, Decadron 4 mg IV push daily, fentanyl, insulin, norepinephrine, Protonix, Zosyn, zinc. Patient is not on any anticoagulation therapy at this point because of his recent massive bleed requiring 5 units of packed RBCs, hemoglobin today is 8.6 Reevaluated today on12/12/2020, patient remains in the ICU, intubated and mechanically ventilated. Patient remains on assist control rate of 38 tidal volume to 75 FiO2 60% PEEP of 12 ABG today showed a pO2 of 70 pCO2 55 pH of 7.31. Patient remains on multiple drips including propofol and fentanyl, presently off Nimbex, may have to increase his propofol to 50 and fentanyl 2015 document per kilo per minute, and we will titrate dose again if the patient tolerates being off Nimbex. He is also on amiodarone drip at 0.5 mg/m. IV fluids at KVO. He is receiving enteral feedings. He is to receive 1 unit of platelets today because of low platelets. And considering the patient had negative cultures and no specific positive cultures will discontinue antibiotics. Altogether. Chest x-ray continues to show bilateral infiltrates consistent with COVID-19 pneumonia. Medications are relatively unchanged as noted above, patient is not requiring any norepinephrine, and we have decided to discontinue Nimbex this morning. WBC count today is 19.3 hemoglobin is 8 d- dimer is 2.64. Basic metabolic profile is normal BUN is 99 creatinine 2.55, slightly improved liver enzymes remain elevated with AST of 273 ALT of 11/2005, LDH is down to 3869. Patient was reevaluated today on 12/13/2020, remains in the ICU, intubated and mechanically ventilated. Patient has been off Nimbex but maintained on propofol and fentanyl, and I'm hoping I could hold sedation narcotics today in order to assess his mental status if possible today. He is on assist control rate of 38 tidal volume 375 FiO2 55% PEEP of 12 ABG showed a pO2 of 69 pCO2 of 52 pH of 7.38. He is on fentanyl at 0.5 mcg/kg/h he is also on propofol at 35 mcg/kg/m. Patient is receiving tube feeding using vital AF at 45 mL per hour. Patient is on amiodarone at 0.5 mg/m, however I will discontinue amiodarone today and switch him to oral amiodarone via orogastric tube. Platelets remain low at 33,000, hence admitted to start the patient back on anticoagulation therapy. Patient remains on compression stockings. And his renal functioning is hovering around 2.59/creatinine. No more bleeding episodes over the last for 5 days. And not requiring any transfusions. He did get 1 unit of platelets yesterday. Asked x-ray continues to show bilateral infiltrates, not much of a change in his WBC count is 17.1 hemoglobin is 7.4. D-dimer is a bit elevated at 6.38. Electrolytes are normal LDH is coming down 3681 today compared to 4006 just couple of days ago C-reactive protein is 3.4. Patient was reevaluated today on 12/14/2020, remains in the intensive care unit, remains intubated and mechanically ventilated. Ventilator settings are assist control rate of 38 tidal volume 375 FiO2 50% PEEP is 12. ABG showed a pO2 of 78 pCO2 52 pH of 7.44 hence no ventilator changes were made. Drips-carranza the patient is on propofol at 30 mcg/kg/m fentanyl 0.5 mcg/kg/h off Nimbex. Receiving enteral feeding vital HF 45/45. Plan to offer the patient is sedation holiday today and hold sedation. Yesterday patient had sedation holiday, and according to the nurse his mental status was relatively appropriate. And he was following simple instructions. Labs today were reviewed, platelets are low again, no active bleeding. And I'm still holding restarting anticoagulation therapy on this patient. CBC showed WBC count is 15.0 hemoglobin is 7.6. Platelets are 29,000. Basic metabolic profile is relatively normal BUN is 95 creatinine down to 2.11 liver enzymes are improving, ALT is down to 964 LDH is also improving Chest x-ray continues to show bilateral interstitial infiltrates, slight improvement is noted Patient was reevaluated today on 12/15/2020, remains in the ICU, intubated and mechanically ventilated. Ventilator settings are assist control rate of 38 tidal volume of 375 FiO2 50% PEEP is 12 and I cut it down to 10. Peak airway pressure is 3 to plateau pressure is 27. Chest x-ray is showing slight improvement in his bilateral interstitial in filtrates. ABG showed a pO2 of 86 pCO2 54 pH of 7.47 hence his PEEP was cut down to 10 and kept him on 50% FiO2. Drips include fentanyl at 0.25 mg/kg/h and propofol at 25 mcg/kg/m. Patient remains on enteral feeding and his IV fluid is point tenderness saline at 20 mL per hour, patient is receiving free water via orogastric tube because of hyponatremia. Labs showed metabolic alkalosis, hence I'm changing his diuretics from Lasix to Diamox. Labs : WBC count is 10.1 hemoglobin is 7.9, platelets remained low at 24,000, and I'm recommending a unit of platelets to be given today. Electrolytes showed hyponatremia and elevated bicarb of 39 BUN is 92 creatinine 1.89, slightly improved. Patient was reevaluated today on 12/16/20, remains in the ICU, intubated and mechanically ventilated. Ventilator settings are basically unchanged as noted above, assist control rate 38 tidal volume 375 FiO2 50% PEEP of 10 ABG showed a pO2 of 110 pCO2 52 pH of 7.41, hence his FiO2 was decreased down to 45%. Peak airway pressure is 30 and plateau pressure is 26 Chest x-ray continues to show bilateral infiltrates, slightly improved compared to the x-rays over the last few days. Patient remains on propofol at 3 0 mcg/kg/m and fentanyl at 0.25 mcg/kg/h. However these were placed on hold throughout the day yesterday until late last night patient was getting a bit more agitated and restless tachycardic, hence I had to place him back on propofol and fentanyl again. However today I discontinued both, and within an hour I came back to evaluate the patient, and the patient was noted to be opening his eyes, following simple instructions like squeezing hands, wiggling toes, sticking out his tongue, and his mentation seems to be very appropriate, however he is quite lethargic and slow. I recommended that we discontinue fentanyl and propofol again and if we have to use any sort of sedation and it will be Precedex. Labs today showed hemoglobin of 7.1, platelets remained low at 26,000 WBC count is 6.9. Patient will be considered for tracheostomy and PEG tube placement, hence may need a unit of packed RBCs and a unit of platelets tomorrow prior to these procedures. I'm also recommending a PICC line and hopefully could discontinue his right subclavian central line which has been there for about almost 10 days. Electrolytes are improving with better sodium of 146 bicarb is down to 34 renal functioning is improving with a BUN of 78 creatinine 1.86. Liver enzymes remain slightly elevated with ALT of 47 6 and AST of 59. LDH and C-reactive protein from today are pending. Progress note dated 12/17/2020. 60-year-old male again seen in room 256, in the intensive care unit. This patient was admitted to the hospital on November 14. His admission diagnosis was coronavirus associated pneumonia. The patient was intubated and placed on the mechanical ventilator on December 07. On that same day, the patient had a massive GI bleed requiring multiple units of blood and blood products. The patient has been on the ventilator since. Currently, he is on the volume assist control mode, rate 38, tidal volume 375, FiO2 45%, and PEEP of 10. Blood gases show a PaO2 of 106, pCO2 45, and a pH is 7.41. The patient is on 0.05 mcg/kg/m dexmedetomidine. Saline at 10 mL an hour, tube feedings are currently off, and vital AF at 45, with a goal of 45 mL an hour. The patient will have a daily interruption of sedation, and a spontaneous breathing trial, on pressure support of 10 and CPAP of 5. The saline IV will be discontinued in favor of D5W at 75 mL an hour, because of developing hypernatremia and hyperchloremia. Hopefully, we can get this patient extubated in the near future. I did get a call from respiratory, with a weaning parameters, which were excellent. This included a negative inspiratory force of -30, a rapid shallow breathing index of 30, a vital capacity of 1.04 L, respiratory rate 17, tidal volume 620 mL, and a minute volume 10.9 L/m. The patient did have a positive cuff leak, but was a bit sleepy. We will wait a bit longer for the patient to be much more awake. White count 5.6, hemoglobin 7.7, hematocrit 24.4, and platelet count 24,000. Arterial blood gases done at the time of weaning parameters show a PaO2 of 96, pCO2 of 46, and a pH is 7.4. Sodium 146, potassium 3.6, chlorides 1:15, CO2 29, anion gap 2, BUN 70, and creatinine 1.58. Chest x-ray shows diffuse bilateral infiltrates, essentially unchanged. Progress note dated 12/18/2020. 60-year-old male, again seen in room 256. The patient was admitted to the hospital on November 14. His admission diagnosis was coronavirus associated pneumonia. The patient was intubated and placed on the mechanical ventilator on December 07. On the same date, the patient had a massive GI bleed requiring mu ltiple units of blood and blood products. The patient has been on the ventilator since. Yesterday, we attempted a daily interruption of sedation and a spontaneous breathing trial. He actually did very well, but was still a bit drowsy. Through the night, the patient has been off of sedation. Currently, he is on pressure regulated volume control ventilation or VC plus, with a targeted tidal volume of 450, and inspiratory time of 0.8 seconds. His FiO2 is 45%, PEEP is 5, and respiratory rate is 38. Blood gases show a PaO2 of 78, pCO2 34, and a pH is 7.46. The patient's getting D5W at 75 mL an hour. Tube feedings are on hold. Previously, he was on vital AF at 45 mL an hour, which is goal. The patient's hemoglobin this morning was 6.8. He'll get 1 unit of packed red blood cells. He will get a set a weaning parameters, and a cuff leak. If they're good, the patient will be extubated. He seems very awake and alert. White count 4, hemoglobin 6.8, hematocrit 21.4, and platelet count is 30,000. Sodium 140, potassium 3.3, chlorides 115, CO2 25, BUN 64, and creatinine 1.44. LDH is 1807. C-reactive protein is 4. Chest x-ray shows mild cardiomegaly with left greater than right bilateral multifocal opacities. The patient CXR is essentially unchanged. Objective - Vital Signs Vital signs: Vital Signs Temp 99.4 F 12/18/20 09:20 Pulse 90 12/18/20 09:20 Resp 19 12/18/20 09:20 BP 125/59 12/18/20 09:20 Pulse Ox 93 L 12/18/20 09:20 Intake & Output 12/17/20 12/18/20 12/18/20 18:59 06:59 18:59 Intake Total 1140 2228 78 Output Total 3580 2286 175 Balance -2440 -58 -97 Weight 116.4 kg 117.7 kg Intake: IV 858 78 Dextrose 5% in Water 1, 825 75 000 ml @ 75 mls/hr IV . [id number] [facility] Rx#:[id number] Normal Saline Pressure 33 3 Bag @ 3mL/hr Intake, IV Titration 650 75 Amount Dextrose 5% in Water 1, 450 75 000 ml @ 75 mls/hr IV . [id number] [facility] Rx#:[id number] Potassium Chloride 10 meq 200 In Water For Injection 1 100ml.bag @ 100 mls/hr IVPB Q1H [facility] Rx#: [id number] Tube Feeding 90 495 Blood Product 0 Rc As-1 Unit 0 [id number] Other 400 800 Output: Urine 3580 2285 175 Stool 1 Other: Voiding Method Indwelling Catheter Indwelling Catheter # Voids 0 ABP, PAP, CO, CI - Last Documented Arterial Blood Pressure 108/52 - Exam No acute distress, awake, with an orally placed endotracheal tube and NG tube. HEENT examination is grossly unremarkable. Neck supple. Full range of motion. No adenopathy thyromegaly or neck vein distention. Cardiovascular examination reveals regular rhythm rate. S1-S2 normal. No S3 or S4. No discernible murmur noted. Heart sounds are distant. Heart rate 90 bpm. Lungs reveal Inspiratory and expiratory rhonchi, moderate in severity. Scattered crackles noted. No wheezes. Breath sounds equal bilaterally. Abdomen soft bowel sounds are heard. No masses or tenderness. Extremities are intact. No cyanosis clubbing or edema. Skin is without rash or lesion. Neurologic examination is difficult to assess but the patient does appear to be awake and alert. - Labs CBC & Chem 7: 12/18/20 04:25 12/18/20 04:25 Labs: Abnormal Lab Results - Last 24 Hours (Table) 12/16/20 12/17/20 12/17/20 Range/Units 14:54 10:25 16:17 RBC (4.30-5.90) m/uL Hgb (13.0-17.5) gm/dL Hct (39.0-53.0) % RDW (11.5-15.5) % Plt Count (150-450) k/uL Lymphocytes # (1.0-4.8) k/uL ABG pH (7.35-7.45) ABG pCO2 46 H (35-45) mmHg ABG pO2 (83-108) mmHg ABG HCO3 29 H (21-25) mmol/L ABG Total CO2 30 H (19-24) mmol/L ABG O2 Saturation 98.1 H (94-97) % Potassium (3.5-5.1) mmol/L Chloride (98-107) mmol/L BUN (9-20) mg/dL Creatinine (0.66-1.25) mg/dL Glucose (74-99) mg/dL POC Glucose (mg/dL) 124 H (75-99) mg/dL Calcium (8.4-10.2) mg/dL Lactate Dehydrogenase (313-618) U/L C-Reactive Protein (<1.0) mg/dL Crossmatch See Detail 12/17/20 12/18/20 12/18/20 Range/Units 20:49 00:39 04:25 RBC (4.30-5.90) m/uL Hgb (13.0-17.5) gm/dL Hct (39.0-53.0) % RDW (11.5-15.5) % Plt Count (150-450) k/uL Lymphocytes # (1.0-4.8) k/uL ABG pH (7.35-7.45) ABG pCO2 (35-45) mmHg ABG pO2 (83-108) mmHg ABG HCO3 (21-25) mmol/L ABG Total CO2 (19-24) mmol/L ABG O2 Saturation (94-97) % Potassium (3.5-5.1) mmol/L Chloride (98-107) mmol/L BUN (9-20) mg/dL Creatinine (0.66-1.25) mg/dL Glucose (74-99) mg/dL POC Glucose (mg/dL) 141 H 114 H 138 H (75-99) mg/dL Calcium (8.4-10.2) mg/dL Lactate Dehydrogenase (313-618) U/L C-Reactive Protein (<1.0) mg/dL Crossmatch 12/18/20 12/18/20 12/18/20 Range/Units 04:25 04:25 04:50 RBC 2.21 L (4.30-5.90) m/uL Hgb 6.8 L* (13.0-17.5) gm/dL Hct 21.4 L (39.0-53.0) % RDW 18.6 H (11.5-15.5) % Plt Count 30 L (150-450) k/uL Lymphocytes # 0.4 L (1.0-4.8) k/uL ABG pH 7.46 H (7.35-7.45) ABG pCO2 34 L (35-45) mmHg ABG pO2 78 L (83-108) mmHg ABG HCO3 (21-25) mmol/L ABG Total CO2 25 H (19-24) mmol/L ABG O2 Saturation (94-97) % Potassium 3.3 L (3.5-5.1) mmol/L Chloride 115 H (98-107) mmol/L BUN 64 H (9-20) mg/dL Creatinine 1.44 H (0.66-1.25) mg/dL Glucose 118 H (74-99) mg/dL POC Glucose (mg/dL) (75-99) mg/dL Calcium 7.7 L (8.4-10.2) mg/dL Lactate Dehydrogenase 1857 H (313-618) U/L C-Reactive Protein 4.0 H (<1.0) mg/dL Crossmatch 12/18/20 Range/Units 08:26 RBC (4.30-5.90) m/uL Hgb (13.0-17.5) gm/dL Hct (39.0-53.0) % RDW (11.5-15.5) % Plt Count (150-450) k/uL Lymphocytes # (1.0-4.8) k/uL ABG pH (7.35-7.45) ABG pCO2 (35-45) mmHg ABG pO2 (83-108) mmHg ABG HCO3 (21-25) mmol/L ABG Total CO2 (19-24) mmol/L ABG O2 Saturation (94-97) % Potassium (3.5-5.1) mmol/L Chloride (98-107) mmol/L BUN (9-20) mg/dL Creatinine (0.66-1.25) mg/dL Glucose (74-99) mg/dL POC Glucose (mg/dL) 113 H (75-99) mg/dL Calcium (8.4-10.2) mg/dL Lactate Dehydrogenase (313-618) U/L C-Reactive Protein (<1.0) mg/dL Crossmatch Assessment and Plan Assessment: Acute hypoxemic respiratory failure secondary to coronavirus associated pneumonia, with intubation on 12/07/2020. Acute respiratory distress syndrome. Paroxysmal atrial fibrillation. Acute GI bleed, on 12/07/2020, requiring blood and multiple blood products. Acute thrombocytopenia. Shock liver, improved. ATN/JEYSON. Obesity. Elevated inflammatory markers secondary to coronavirus infection. Metabolic alkalosis, receiving intermittent doses of Diamox, resolved. Plan: Plan dated 12/17/2020. The patient will be given a daily interruption of sedation, and a spontaneous breathing trial. Actually, he did very well on a spontaneous breathing trial, but was a bit sleepy. The patient will be assessed later. We'll DC the saline IV in favor of dextrose at 75 mL an hour, secondary to developing hypernatremia and hyperchloremia. Additional recommendations and suggestions are forthcoming. The dexmedetomidine will be held for the time being. Prognosis is guarded. We will continue to see the patient daily basis and make recommendations where appropriate. Plan dated 12/18/2020. The patient will be extubated this morning. His weaning parameters were excellent, and he had a positive cuff leak. He is awake and alert and has been off his sedation pretty much all night. Follow make recommendations were appropriate. The patient will be nothing by mouth for at least 6 hours post extubation, and after 6 hours, can start on sips of water chips of ice. If that is tolerated, the patient can have his diet advanced. The patient will receive only 1 unit of packed red blood cells. We'll hold the Lasix for now. Additional recommendations and suggestions are forthcoming. We'll continue to follow and make recommendations where appropriate. Time with Patient: Greater than 30
[2020-12-18 11:34] LABS: Glucose,Whole Blood 101 mg/dL (75-99)
--- NOTE | 2020-12-18 13:48 | P.PN ---
Subjective Progress Note Date: 12/18/20 HISTORY OF PRESENT ILLNESS This is a pleasant 60-year-old gentleman patient of Dr. Ridge Christina. He doesn't see a physician often and does not note any medical diseases, except for obesity. He comes seen secondary to fever and chills, cough, starting December 06 first, along with muscle aches, lack of appetite and diarrhea. he was tested for call bid November 08, which required at week of reporting, subsequently was sent to emergency room secondary to worsening symptoms, including dyspnea on exertion, shortness of breath and worsening cough without hemoptysis. Fever, sh ortness of breath lingers, no treatment given to him prior to this admission. The is vaccinated, but the patient is not. He does not believe in vaccines at that time. He comes in the emergency room, with hypoxemia, with very minimal conversational dyspnea, chest x-ray, shows pulmonary infiltrate consistent with Covid pneumonia, oxygen currently is at 6 L nasal cannula, d-dimer was 0.6, LFTs are minimally elevated, 64 AST, lactic acid 2.0 sodium 132, creatinine of 0.9, glucose of 122, LDH of 888, CRP of 5.7. Urine protein noted, without hematuria or proteinuria. Covid was again retested 11/14, PCR is positive. Consult to Dr. Eduardo and pulmonary,, Patient was initially [facility] [place] floor but continued to have hypoxia with drop in his oxygenation level despite use of airflow and nonrebreather. He completed a course of Baricitnib and was treated also with dexamethasone, Lovenox and supplements. Patient was eventually transitioned to ICU on 11/25 with BiPAP and patient at times seemed to be stabilized and improving but then he developed a GI bleed required blood transfusion and vasopressor support. He was subsequently intubated on 12/07. Other conditions complicating his stay include thrombocytopenia, atrial fibrillation with RVR converted to sinus rhythm and kidney injury. 12/18: Patient remains in intensive care unit and was successfully extubated thi s morning and is currently on high flow nasal cannula at 10 L with pulse ox is 93%. He remains an sinus rhythm, afebrile, blood pressure 137/62. One unit of packed RBCs ordered for hemoglobin of 6.8. BUN 64 and creatinine 1.44. Blood sugars are running 101-138. Repeat inflammatory markers: LDH 1857, C-reactive protein 4. Chest x-ray reveals mild cardiomegaly with left greater than right bilateral multifocal opacities consistent with Covid. Nephrology is taking the patient off Diamox. REVIEW OF SYSTEMS Constitutional: No fever, no chills, no night sweats. No weight change. Reports weakness, reports fatigue reports lethargy. Reports daytime sleepiness. EENT: No headache. No blurred vision or double vision, no loss of vision. No loss of Hearing, no ringing in the ears, no dizziness. No nasal drainage or congestion. No epistaxis. No sore throat. Lungs Reported shortness of breath, reported cough, no sputum production. No wheezing. Cardiovascular: No chest pain, no lower extremity edema. No palpitations. No paroxysmal nocturnal dyspnea. No orthopnea. No lightheadedness or dizziness. No syncopal episodes. Abdominal: No abdominal pain. No nausea, vomiting. None diarrhea. No constipation. No bloody or tarry stools. Reports loss of appetite. Genitourinary: No dysuria, increased frequency, urgency. No urinary retention. Musculoskeletal: No myalgias. Generalized muscle weakness, no gait dysfunction, no frequent falls. No back pain. No neck pain. Integumentary: No wounds, no lesions. No rash or pruritus. No unusual bruisin g. Neurologic: No aphasia. No facial droop. No change in mentation. No head injury. No headache. No paresthesia. Psychiatric: No depression. No anxiety. No mood swings. Insomnia. Endocrine: Noted mildly elevated blood sugars. PHYSICAL EXAMINATION Gen: This is a 60-year-old obese male in the ICU , currently on nasal cannula O2. Patient's and son at bedside. HEENT: Head is atraumatic, normocephalic. Pupils equal, round. Sclerae is anicteric, conjunctiva edema. NECK: Supple. No JVD. No lymphadenopathy. No thyromegaly. LUNGS: Diminished with crackles in the bilateral bases. HEART: Regular rate and rhythm. No murmur. 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 ABDOMEN: obese. Soft. Bowel sounds are present. No masses. No tenderness. Mackenzie catheter draining clear frederick urine with good urine output. EXTREMITIES: His bilateral pedal edema. No calf tenderness. NEUROLOGICAL: Patient is sedated. ASSESSMENT AND PLAN 1. Acute respiratory failure: Secondary to COVID-19 requiring intubation and mechanical ventilation, with possible secondary bacterial pneumonia. Patient has been successfully extubated. Continue albuterol inhaler 2 puffs as needed, dexamethasone 4 mg IV daily, Lovenox 30 mg subcu daily, vitamin supplements. Consult with pulmonary medicine appreciated. 2. Sepsis (POA) secondary to COVID-19 pneumonia, with acute hypoxemic respiratory failure, diagnosis was of 11/08/2020. 3. Moderate protein calorie malnutrition secondary to poor oral intake. Continue protein supplements. 4. New-onset atrial fibrillation with RVR, paroxysmal atrial fibrillation. Patient has converted to normal sinus rhythm. Continue oral amiodarone 200 mg twice daily, Eliquis placed on hold due to GI bleed. Echocardiogram as above. 5. Thrombocytopenia secondary to sepsis. No anticoagulation due to thro mbocytopenia, GI bleed. Transfusion of 2 unit of platelets. 6. Acute GI bleed with acute blood loss anemia. Eliquis placed on hold, total of 6 units packed RBCs, IV fluid boluses, consult with Dr. Ojeda appreciated. EGD and colonoscopy once patient is stabilized, Dr. Lester is following. 7. Acute hypovolemic shock or septic shock requiring vasopressors, massive IV fluid resuscitation. Patient is off vasopressors and blood pressure has been stable. 8. Acute kidney injury with ATN secondary to septic shock. Consult with nephrology appreciated. Patient has had good urine output. 9. Metabolic acidosis secondary to acute kidney injury. 10. Severe hyperkalemia secondary to acute kidney injury. Followed by nephrology. 11. Shock liver secondary to hypotension. Monitor liver function test. 12. DVT prophylaxis. 13. GI prophylaxis. Protonic. 14. BPH. Mackenzie catheter 15. Proteinuria, unknown cause. 16. Dymetabolic syndrome, monitor for hyperglycemia, A1c 6.4. NovoLog scale every 4 hours, added Levemir 12 units twice daily. 17. Back pain. CODE Status: Full code Prognosis: guarded. Impression and plan of care have been directed as dictated by the signing physician. Sanam Valentine nurse practitioner acting as scribe for signing physician. Objective - Vital Signs Vital signs: Vital Signs Temp 99.4 F 12/18/20 09:20 Pulse 84 12/18/20 11:00 Resp 17 12/18/20 11:00 BP 112/66 12/18/20 11:00 Pulse Ox 96 12/18/20 11:00 Intake & Output 12/17/20 12/18/20 12/18/20 18:59 06:59 18:59 Intake Total 1140 2228 378 Output Total 3580 2286 875 Balance -2440 -58 -497 Weight 116.4 kg 117.7 kg Intake: IV 858 378 Dextrose 5% in Water 1, 825 375 000 ml @ 75 mls/hr IV . [id number] [facility] Rx#:[id number] Normal Saline Pressure 33 3 Bag @ 3mL/hr Intake, IV Titration 650 75 Amount Dextrose 5% in Water 1, 450 75 000 ml @ 75 mls/hr IV . [id number] [facility] Rx#:[id number] Potassium Chloride 10 meq 200 In Water For Injection 1 100ml.bag @ 100 mls/hr IVPB Q1H [facility] Rx#: [id number] Tube Feeding 90 495 Blood Product 0 Rc As-1 Unit 0 [id number] Other 400 800 Output: Urine 3580 2285 875 Stool 1 Other: Voiding Method Indwelling Catheter Indwelling Catheter # Voids 0 ABP, PAP, CO, CI - Last Documented Arterial Blood Pressure 137/63 - Labs CBC & Chem 7: 12/18/20 04:25 12/18/20 04:25 Labs: Abnormal Lab Results - Last 24 Hours (Table) 12/16/20 12/17/20 12/17/20 Range/Units 14:54 16:17 20:49 RBC (4.30-5.90) m/uL Hgb (13.0-17.5) gm/dL Hct (39.0-53.0) % RDW (11.5-15.5) % Plt Count (150-450) k/uL Lymphocytes # (1.0-4.8) k/uL ABG pH (7.35-7.45) ABG pCO2 (35-45) mmHg ABG pO2 (83-108) mmHg ABG Total CO2 (19-24) mmol/L Potassium (3.5-5.1) mmol/L Chloride (98-107) mmol/L BUN (9-20) mg/dL Creatinine (0.66-1.25) mg/dL Glucose (74-99) mg/dL POC Glucose (mg/dL) 124 H 141 H (75-99) mg/dL Calcium (8.4-10.2) mg/dL Lactate Dehydrogenase (313-618) U/L C-Reactive Protein (<1.0) mg/dL Crossmatch See Detail 12/18/20 12/18/20 12/18/20 Range/Units 00:39 04:25 04:25 RBC 2.21 L (4.30-5.90) m/uL Hgb 6.8 L* (13.0-17.5) gm/dL Hct 21.4 L (39.0-53.0) % RDW 18.6 H (11.5-15.5) % Plt Count 30 L (150-450) k/uL Lymphocytes # 0.4 L (1.0-4.8) k/uL ABG pH (7.35-7.45) ABG pCO2 (35-45) mmHg ABG pO2 (83-108) mmHg ABG Total CO2 (19-24) mmol/L Potassium (3.5-5.1) mmol/L Chloride (98-107) mmol/L BUN (9-20) mg/dL Creatinine (0.66-1.25) mg/dL Glucose (74-99) mg/dL POC Glucose (mg/dL) 114 H 138 H (75-99) mg/dL Calcium (8.4-10.2) mg/dL Lactate Dehydrogenase (313-618) U/L C-Reactive Protein (<1.0) mg/dL Crossmatch 12/18/20 12/18/20 12/18/20 Range/Units 04:25 04:50 08:26 RBC (4.30-5.90) m/uL Hgb (13.0-17.5) gm/dL Hct (39.0-53.0) % RDW (11.5-15.5) % Plt Count (150-450) k/uL Lymphocytes # (1.0-4.8) k/uL ABG pH 7.46 H (7.35-7.45) ABG pCO2 34 L (35-45) mmHg ABG pO2 78 L (83-108) mmHg ABG Total CO2 25 H (19-24) mmol/L Potassium 3.3 L (3.5-5.1) mmol/L Chloride 115 H (98-107) mmol/L BUN 64 H (9-20) mg/dL Creatinine 1.44 H (0.66-1.25) mg/dL Glucose 118 H (74-99) mg/dL POC Glucose (mg/dL) 113 H (75-99) mg/dL Calcium 7.7 L (8.4-10.2) mg/dL Lactate Dehydrogenase 1857 H (313-618) U/L C-Reactive Protein 4.0 H (<1.0) mg/dL Crossmatch
[2020-12-18 14:15] LABS: Anisocytosis Slight; HCT 27.6 % (39.0-53.0); Hypochromasia Slight; MCH 30.5 pg (25.0-35.0); MCHC 32.2 g/dL (31.0-37.0); MCV 94.8 fL (80.0-100.0); Macrocytosis Slight; Mean Platelet Volume 11.5; Poikilocytosis Slight; RBC 2.91 m/uL (4.30-5.90); RDW 17.7 % (11.5-15.5); WBC 5.2 k/uL (3.8-10.6)
[2020-12-18 14:30] LABS: HGB 8.9 gm/dL (13.0-17.5); Platelet Count 34 k/uL (150-450)
--- NOTE | 2020-12-18 14:47 | P.PN ---
Subjective Progress Note Date: 12/18/20 CHIEF COMPLAINT: COVID-19 pneumonia HISTORY OF PRESENT ILLNESS: Surgical service following due to GI bleed. Patient is in the ICU. He was successfully extubated this morning. Patient did have a small bowel movement brown in color yesterday. Patient denies abdominal pain. No active signs of bleeding. Denies any nausea or vomiting. Afebrile. Hemoglobin 6.8 patient receiving a unit of blood. Repeat hemoglobin 8.9. WBC 5.2 platelets 34 PHYSICAL EXAM: VITAL SIGNS: Reviewed. GENERAL: Well-developed in no acute distress. HEENT: No sclera icterus. Extraocular movements grossly intact. Moist buccal mucosa. Head is atraumatic, normocephalic. ABDOMEN: Soft. Nondistended. Nontender. NEUROLOGIC: Patient is sedated ASSESSMENT: 1. Acute GI bleed 2. Acute blood loss anemia requiring blood transfusion during this admission PLAN: -Plan for endoscopy when medically stable -Continue ICU management -Continue supportive care -Continue to monitor hemoglobin -Continue to monitor for any signs or symptoms of bleeding -Continue to hold anticoagulation -Continue PPI Physician Nurse Special note has been reviewed by physician. Signing provider agrees with the documented findings, assessment, and plan of care. Objective - Vital Signs Vital signs: Vital Signs Temp 99.3 F 12/18/20 12:05 Pulse 84 12/18/20 14:00 Resp 17 12/18/20 14:00 BP 122/66 12/18/20 14:00 Pulse Ox 94 L 12/18/20 14:00 Intake & Output 12/17/20 12/18/20 12/18/20 18:59 06:59 18:59 Intake Total 1140 2228 913 Output Total 3580 2286 1225 Balance -2440 -58 -312 Weight 116.4 kg 117.7 kg Intake: IV 858 603 Dextrose 5% in Water 1, 825 600 000 ml @ 75 mls/hr IV . [id number] [facility] Rx#:[id number] Normal Saline Pressure 33 3 Bag @ 3mL/hr Intake, IV Titration 650 75 Amount Dextrose 5% in Water 1, 450 75 000 ml @ 75 mls/hr IV . [id number] [facility] Rx#:[id number] Potassium Chloride 10 meq 200 In Water For Injection 1 100ml.bag @ 100 mls/hr IVPB Q1H [facility] Rx#: [id number] Tube Feeding 90 495 Blood Product 310 Rc As-1 Unit 310 [id number] Other 400 800 Output: Urine 3580 2285 1225 Stool 1 Other: Voiding Method Indwelling Catheter Indwelling Catheter Indwelling Catheter # Voids 0 ABP, PAP, CO, CI - Last Documented Arterial Blood Pressure 132/61 - Labs CBC & Chem 7: 12/18/20 14:00 12/18/20 14:00 Labs: Abnormal Lab Results - Last 24 Hours (Table) 12/16/20 12/17/20 12/17/20 Range/Units 14:54 16:17 20:49 RBC (4.30-5.90) m/uL Hgb (13.0-17.5) gm/dL Hct (39.0-53.0) % RDW (11.5-15.5) % Plt Count (150-450) k/uL Lymphocytes # (1.0-4.8) k/uL ABG pH (7.35-7.45) ABG pCO2 (35-45) mmHg ABG pO2 (83-108) mmHg ABG Total CO2 (19-24) mmol/L Potassium (3.5-5.1) mmol/L Chloride (98-107) mmol/L BUN (9-20) mg/dL Creatinine (0.66-1.25) mg/dL Glucose (74-99) mg/dL POC Glucose (mg/dL) 124 H 141 H (75-99) mg/dL Calcium (8.4-10.2) mg/dL Lactate Dehydrogenase (313-618) U/L C-Reactive Protein (<1.0) mg/dL Crossmatch See Detail 12/18/20 12/18/20 12/18/20 Range/Units 00:39 04:25 04:25 RBC 2.21 L (4.30-5.90) m/uL Hgb 6.8 L* (13.0-17.5) gm/dL Hct 21.4 L (39.0-53.0) % RDW 18.6 H (11.5-15.5) % Plt Count 30 L (150-450) k/uL Lymphocytes # 0.4 L (1.0-4.8) k/uL ABG pH (7.35-7.45) ABG pCO2 (35-45) mmHg ABG pO2 (83-108) mmHg ABG Total CO2 (19-24) mmol/L Potassium (3.5-5.1) mmol/L Chloride (98-107) mmol/L BUN (9-20) mg/dL Creatinine (0.66-1.25) mg/dL Glucose (74-99) mg/dL POC Glucose (mg/dL) 114 H 138 H (75-99) mg/dL Calcium (8.4-10.2) mg/dL Lactate Dehydrogenase (313-618) U/L C-Reactive Protein (<1.0) mg/dL Crossmatch 12/18/20 12/18/20 12/18/20 Range/Units 04:25 04:50 08:26 RBC (4.30-5.90) m/uL Hgb (13.0-17.5) gm/dL Hct (39.0-53.0) % RDW (11.5-15.5) % Plt Count (150-450) k/uL Lymphocytes # (1.0-4.8) k/uL ABG pH 7.46 H (7.35-7.45) ABG pCO2 34 L (35-45) mmHg ABG pO2 78 L (83-108) mmHg ABG Total CO2 25 H (19-24) mmol/L Potassium 3.3 L (3.5-5.1) mmol/L Chloride 115 H (98-107) mmol/L BUN 64 H (9-20) mg/dL Creatinine 1.44 H (0.66-1.25) mg/dL Glucose 118 H (74-99) mg/dL POC Glucose (mg/dL) 113 H (75-99) mg/dL Calcium 7.7 L (8.4-10.2) mg/dL Lactate Dehydrogenase 1857 H (313-618) U/L C-Reactive Protein 4.0 H (<1.0) mg/dL Crossmatch 12/18/20 12/18/20 Range/Units 11:33 14:00 RBC 2.91 L (4.30-5.90) m/uL Hgb 8.9 L D (13.0-17.5) gm/dL Hct 27.6 L (39.0-53.0) % RDW 17.7 H (11.5-15.5) % Plt Count 34 L (150-450) k/uL Lymphocytes # (1.0-4.8) k/uL ABG pH (7.35-7.45) ABG pCO2 (35-45) mmHg ABG pO2 (83-108) mmHg ABG Total CO2 (19-24) mmol/L Potassium (3.5-5.1) mmol/L Chloride (98-107) mmol/L BUN (9-20) mg/dL Creatinine (0.66-1.25) mg/dL Glucose (74-99) mg/dL POC Glucose (mg/dL) 101 H (75-99) mg/dL Calcium (8.4-10.2) mg/dL Lactate Dehydrogenase (313-618) U/L C-Reactive Protein (<1.0) mg/dL Crossmatch
[2020-12-18] MEDS: AMIODARONE 200 MG TAB PO SCH ×2 (17:31→20:32)
[2020-12-18] MEDS: DEXTROSE 5% IN WATER 1,000 ML IV SCH (17:31)
[2020-12-18 20:41] LABS: Glucose,Whole Blood 86 mg/dL (75-99)
[2020-12-18 20:46] LABS: Anisocytosis Slight; HGB 9.2 gm/dL (13.0-17.5); Hypochromasia Slight; MCH 30.9 pg (25.0-35.0); MCHC 32.8 g/dL (31.0-37.0); MCV 94.2 fL (80.0-100.0); Macrocytosis Slight; Mean Platelet Volume 10.4; Poikilocytosis Slight; RBC 2.98 m/uL (4.30-5.90); RDW 17.4 % (11.5-15.5); WBC 4.8 k/uL (3.8-10.6)
[2020-12-18 20:47] LABS: Platelet Count 39 k/uL (150-450)
[2020-12-19] MEDS: DEXTROSE 5% IN WATER 1,000 ML IV SCH
[2020-12-19 00:08] LABS: Glucose,Whole Blood 95 mg/dL (75-99)
[2020-12-19 04:27] LABS: C Reactive Protein 5.2 mg/dL (<1.0); Calcium 8.1 mg/dL (8.4-10.2); Potassium 3.6 mmol/L (3.5-5.1)
[2020-12-19 04:31] LABS: Anisocytosis Slight; Basophils % (A) 0 %; Eosinophils # (A) 0.1 k/uL (0-0.7); Eosinophils % (A) 2 %; HCT 27.6 % (39.0-53.0); HGB 9.1 gm/dL (13.0-17.5); Hypochromasia Slight; Lymphocytes # (A) 0.6 k/uL (1.0-4.8); Lymphocytes % (A) 13 %; MCHC 32.8 g/dL (31.0-37.0); MCV 94.4 fL (80.0-100.0); Macrocytosis Slight; Mean Platelet Volume 10.8; Monocytes # (A) 0.3 k/uL (0-1.0); Monocytes % (A) 6 %; Neutrophils # (A) 3.4 k/uL (1.3-7.7); Neutrophils % (A) 78 %; Poikilocytosis Slight; RBC 2.92 m/uL (4.30-5.90); RDW 17.4 % (11.5-15.5); WBC 4.3 k/uL (3.8-10.6)
[2020-12-19 04:32] LABS: Platelet Count 47 k/uL (150-450)
[2020-12-19] MEDS ORDERED: POTASSIUM CHLORIDE 20 MEQ in WATER FOR INJECTION 1 100ML.BAG IVPB ONE (04:45)
[2020-12-19 06:30] LABS: Glucose,Whole Blood 101 mg/dL (75-99)
[2020-12-19] MEDS: INSULIN DETEMIR (LEVEMIR) 100 UNIT/ML SYR SQ SCH ×2 (06:32→20:29)
[2020-12-19] MEDS: INSULIN ASPART (NovoLOG) 100 UNIT/ML VIAL SQ SCH ×4 (06:33→20:29)
--- NOTE | 2020-12-19 07:52 | XR ---
EXAMINATION TYPE: XR chest 1V portable DATE OF EXAM: 12/19/2020 COMPARISON: 12/18/2020 INDICATION: Assess lungs, previous abnormal TECHNIQUE: Single frontal view of the chest is obtained. FINDINGS: The heart size may be enlarged. The pulmonary vasculature is indistinct. There is interval development of diffuse lung opacity bilaterally. The endotracheal tube and nasogastric tube removed. The right central venous catheter tip remains wit hin the right atrium. IMPRESSION: 1. Interval development of diffuse bilateral lung opacities. 2. Removal of endotracheal tube and nasogastric tube.
[2020-12-19] MEDS: PANTOPRAZOLE 40 MG/10 ML VIAL IVP SCH ×2 (08:22→20:29)
[2020-12-19] MEDS: DEXAMETHASONE SOD PHOSPHATE 4 MG/ML 1 ML VIAL IV SCH (08:22)
[2020-12-19] MEDS: ASCORBIC ACID 500 MG TAB PO SCH ×3 (08:22→20:40)
[2020-12-19] MEDS: ENOXAPARIN 30 MG/0.3 ML SYRINGE SQ SCH (08:22)
[2020-12-19] MEDS: CHOLECALCIFEROL 25 MCG (1000 IU) TABLET PO SCH (08:22)
[2020-12-19] MEDS: ZINC SULFATE 220 MG CAP PO SCH (08:22)
[2020-12-19] MEDS: AMIODARONE 200 MG TAB PO SCH ×3 (08:22→20:40)
--- NOTE | 2020-12-19 09:42 | P.PN ---
Subjective Patient is seen in follow-up for acute kidney injury. Renal function continues to improve. Extubated December 18. Nonoliguric. Denies chest pain or shortness of breath. On 12 L high flow cannula. Vital signs are stable. HEENT: On nasal cannula. LUNGS: Breath sounds decreased. HEART: Regular rhythm. ABDOMEN: Soft, obese. EXTREMITITES: 1+ edema. Scrotal edema noted. Objective - Vital Signs Vital signs: Vital Signs Temp 98.6 F 12/19/20 08:00 Pulse 90 12/19/20 09:00 Resp 22 12/19/20 09:00 BP 122/66 12/18/20 14:00 Pulse Ox 89 L 12/19/20 09:00 Intake & Output 12/18/20 12/19/20 12/19/20 18:59 06:59 18:59 Intake Total 1288 858 259 Output Total 1875 1425 550 Balance -587 -567 -291 Weight 117.7 kg Intake: IV 978 858 159 Dextrose 5% in Water 1, 975 825 150 000 ml @ 75 mls/hr IV . [id number] [facility] Rx#:[id number] Normal Saline Pressure 3 33 9 Bag @ 3mL/hr Oral 100 Blood Product 310 Rc As-1 Unit 310 [id number] Output: Urine 1875 1425 550 Other: Voiding Method Indwelling Catheter Indwelling Catheter ABP, PAP, CO, CI - Last Documented Arterial Blood Pressure 116/50 - Labs CBC & Chem 7: 12/19/20 03:12 12/19/20 03:12 Labs: Abnormal Lab Results - Last 24 Hours (Table) 12/16/20 12/18/20 12/18/20 Range/Units 14:54 11:33 14:00 RBC 2.91 L (4.30-5.90) m/uL Hgb 8.9 L D (13.0-17.5) gm/dL Hct 27.6 L (39.0-53.0) % RDW 17.7 H (11.5-15.5) % Plt Count 34 L (150-450) k/uL Lymphocytes # (1.0-4.8) k/uL Chloride (98-107) mmol/L BUN (9-20) mg/dL Creatinine (0.66-1.25) mg/dL POC Glucose (mg/dL) 101 H (75-99) mg/dL Calcium (8.4-10.2) mg/dL Lactate Dehydrogenase (313-618) U/L C-Reactive Protein (<1.0) mg/dL Crossmatch See Detail 12/18/20 12/19/20 12/19/20 Range/Units 20:40 03:12 03:12 RBC 2.98 L 2.92 L (4.30-5.90) m/uL Hgb 9.2 L 9.1 L (13.0-17.5) gm/dL Hct 28.0 L 27.6 L (39.0-53.0) % RDW 17.4 H 17.4 H (11.5-15.5) % Plt Count 39 L 47 L (150-450) k/uL Lymphocytes # 0.6 L (1.0-4.8) k/uL Chloride 115 H (98-107) mmol/L BUN 50 H (9-20) mg/dL Creatinine 1.26 H (0.66-1.25) mg/dL POC Glucose (mg/dL) (75-99) mg/dL Calcium 8.1 L (8.4-10.2) mg/dL Lactate Dehydrogenase 2132 H (313-618) U/L C-Reactive Protein 5.2 H (<1.0) mg/dL Crossmatch 12/19/20 Range/Units 06:29 RBC (4.30-5.90) m/uL Hgb (13.0-17.5) gm/dL Hct (39.0-53.0) % RDW (11.5-15.5) % Plt Count (150-450) k/uL Lymphocytes # (1.0-4.8) k/uL Chloride (98-107) mmol/L BUN (9-20) mg/dL Creatinine (0.66-1.25) mg/dL POC Glucose (mg/dL) 101 H (75-99) mg/dL Calcium (8.4-10.2) mg/dL Lactate Dehydrogenase (313-618) U/L C-Reactive Protein (<1.0) mg/dL Crossmatch Assessment and Plan Plan: Assessment: 1. Acute kidney injury secondary to ATN secondary to septic shock. Baseline creatinine near 1 and peaked at 2.9 on this admission - 1.26 today. Nonoliguric. No hydronephrosis was noted. 2. Hyperkalemia secondary to acute kidney injury and metabolic acidosis. Improved with medical management. 3. Metabolic acidosis secondary to acute kidney injury. Resolved. 4. Septic shock secondary to COVID-19 infection. Off vasopressors. 5. Acute hypoxic respiratory failure. 6. Volume overload. Improving with diuresis. 7. A. fib with RVR on oral amiodarone. 8. Hypernatremia due to free water diuresis. Improved with free water flushes. 9. Metabolic alkalosis secondary to diuresis. Improved with Diamox. 10. Hypokalemia from diuresis. Replaced. 11. Acute blood loss anemia. No active bleeding. Status post blood transfusion. Plan: Avoid nephrotoxins. Continue to monitor renal function and urine output. Repeat Lasix if urine output drops. Currently making over 100 mL an hour of urine.
[2020-12-19] MEDS ORDERED: LIDOCAINE 1% INJ 10MG/ML (20 ML MDV) ONE (09:46)
--- NOTE | 2020-12-19 10:09 | P.PN ---
Subjective Progress Note Date: 12/19/20 Principal diagnosis: COVID-19 pneumonia The patient is seen today 12/19/2020 in follow-up in the intensive care unit. He was successfully extubated yesterday. He is currently on 10 L high flow nasal cannula to maintain O2 saturation the high 80s low 90s. This x-ray continues to reveal diffuse bilateral lung opacities. He is status post 6 units of packed red blood cells and 2 units of platelets thus far this admission. White count 4.3. Hemoglobin 9.1. Platelets 47,000. Leukocyte 0.6. Sodium 139. Potassium 3.6. Bicarb 22. Creatinine 1.26. LDH 2132. C-reactive p rotein 5.2. He is continued on Lovenox, Decadron, bronchodilators, vitamin supplements. He is extremely weak with significant critical illness polymyopathy. Objective - Vital Signs Vital signs: Vital Signs Temp 98.6 F 12/19/20 08:00 Pulse 90 12/19/20 09:00 Resp 22 12/19/20 09:00 BP 122/66 12/18/20 14:00 Pulse Ox 89 L 12/19/20 09:00 Intake & Output 12/18/20 12/19/20 12/19/20 18:59 06:59 18:59 Intake Total 1288 858 259 Output Total 1875 1425 550 Balance -587 -567 -291 Weight 117.7 kg Intake: IV 978 858 159 Dextrose 5% in Water 1, 975 825 150 000 ml @ 75 mls/hr IV . [id number] [facility] Rx#:[id number] Normal Saline Pressure 3 33 9 Bag @ 3mL/hr Oral 100 Blood Product 310 Rc As-1 Unit 310 [id number] Output: Urine 1875 1425 550 Other: Voiding Method Indwelling Catheter Indwelling Catheter Indwelling Catheter ABP, PAP, CO, CI - Last Documented Arterial Blood Pressure 116/50 - Exam GENERAL EXAM: Alert, very pleasant, 60-year-old male patient, extubated yesterday, on 10 L high flow nasal cannula HEAD: Normocephalic/atraumatic. EYES: Normal reaction of pupils, equal size. Conjunctiva pink, sclera white. NOSE: Clear with pink turbinates. THROAT: No erythema or exudates. NECK: No masses, no JVD, no thyroid enlargement, no adenopathy. CHEST: No chest wall deformity. Symmetrical expansion. LUNGS: Equal air entry with diffuse rhonchi, crackles in the bilateral posterior bases CVS: Regular rate and rhythm, normal S1 and S2, no gallops, no murmurs, no rubs ABDOMEN: Soft, nontender. No hepatosplenomegaly, normal bowel sounds, no guarding or rigidity. EXTREMITIES: No clubbing, no edema, no cyanosis, 2+ pulses and upper and lower extremities. MUSCULOSKELETAL: Extremely weak SPINE: No scoliosis or deformity SKIN: No rashes CENTRAL NERVOUS SYSTEM: No focal deficits, tone is normal in all 4 extremities. PSYCHIATRIC: Alert and oriented -3. Appropriate affect. Intact judgment and insight. - Labs CBC & Chem 7: 12/19/20 03:12 12/19/20 03:12 Labs: Abnormal Lab Results - Last 24 Hours (Table) 12/16/20 12/18/20 12/18/20 Range/Units 14:54 11:33 14:00 RBC 2.91 L (4.30-5.90) m/uL Hgb 8.9 L D (13.0-17.5) gm/dL Hct 27.6 L (39.0-53.0) % RDW 17.7 H (11.5-15.5) % Plt Count 34 L (150-450) k/uL Lymphocytes # (1.0-4.8) k/uL Chloride (98-107) mmol/L BUN (9-20) mg/dL Creatinine (0.66-1.25) mg/dL POC Glucose (mg/dL) 101 H (75-99) mg/dL Calcium (8.4-10.2) mg/dL Lactate Dehydrogenase (313-618) U/L C-Reactive Protein (<1.0) mg/dL Crossmatch See Detail 12/18/20 12/19/20 12/19/20 Range/Units 20:40 03:12 03:12 RBC 2.98 L 2.92 L (4.30-5.90) m/uL Hgb 9.2 L 9.1 L (13.0-17.5) gm/dL Hct 28.0 L 27.6 L (39.0-53.0) % RDW 17.4 H 17.4 H (11.5-15.5) % Plt Count 39 L 47 L (150-450) k/uL Lymphocytes # 0.6 L (1.0-4.8) k/uL Chloride 115 H (98-107) mmol/L BUN 50 H (9-20) mg/dL Creatinine 1.26 H (0.66-1.25) mg/dL POC Glucose (mg/dL) (75-99) mg/dL Calcium 8.1 L (8.4-10.2) mg/dL Lactate Dehydrogenase 2132 H (313-618) U/L C-Reactive Protein 5.2 H (<1.0) mg/dL Crossmatch 12/19/20 Range/Units 06:29 RBC (4.30-5.90) m/uL Hgb (13.0-17.5) gm/dL Hct (39.0-53.0) % RDW (11.5-15.5) % Plt Count (150-450) k/uL Lymphocytes # (1.0-4.8) k/uL Chloride (98-107) mmol/L BUN (9-20) mg/dL Creatinine (0.66-1.25) mg/dL POC Glucose (mg/dL) 101 H (75-99) mg/dL Calcium (8.4-10.2) mg/dL Lactate Dehydrogenase (313-618) U/L C-Reactive Protein (<1.0) mg/dL Crossmatch Assessment and Plan Assessment: 1 Acute Covid 19 related pneumonia. Patient is not vaccinated. The patient had not received any outpatient treatments for Covid 19 infection. Diagnosis established during this current admission. Started on Bariticinib on 11/15/2020 in view of worsening hypoxic respiratory failure. Patient was outside the window for Remdesivir. He did require intubation and mechanical ventilatory support. He was successfully extubated 12/18/2020. Currently on 10 L high flow nasal cannula. 2 Acute hypoxic respiratory failure secondary to above 3 Acute GI bleed on 12/07/2020 requiring a total of 6 units of packed red blood cells 2 units of platelets 4 Increased inflammatory markers related to acute COVID-19 pneumonia 5 Elevated d-dimer, currently on Lovenox 30 mg daily with concerns regarding recurrent GI bleed 6 Paroxysmal atrial fibrillation 7 ATN/AKA 8 Obesity 9 Severe critical illness polymyopathy Plan: The patient was seen and evaluated by Dr. Cochran Chest x-ray and labs reviewed Currently on 10 L high flow nasal cannula Continue Lovenox, Decadron, bronchodilators, vitamin supplements Titrate the FiO2 as tolerated We will continue to follow Critical care time 33 minutes I, the cosigning physician, performed a history & physical examination of the patient. Lungs sounds with few rhonchi, crackles in the bilateral posterior bases. Maintaining good O2 saturations in the 90s on 10 L high flow nasal cannula, I discussed the assessment and plan of care with my nurse practitioner, Roseanne Carey. I attest to the above note as dictated by her.
[2020-12-19] MEDS ORDERED: LIDOCAINE 1% INJ 10MG/ML (20 ML MDV) SQ ONE (10:22)
--- NOTE | 2020-12-19 11:17 | XR ---
EXAMINATION TYPE: XR chest 1V confirm line [facility] DATE OF EXAM: 12/19/2020 COMPARISON: 12/19/2020 HISTORY: PICC line placement TECHNIQUE: Single frontal view of the chest is obtained. FINDINGS: Right-sided central line and PICC line seen. Diffuse bilateral infiltrate stable. Left lob e lower lobe infiltrate and small effusion. No pneumothorax. Heart size prominent. IMPRESSION: Diffuse bilateral infiltrates are stable. PICC line in good position.
--- NOTE | 2020-12-19 11:18 | IR ---
PICC LINE PLACEMENT: HISTORY: Infection requiring long-term antibiotic therapy PROCEDURE: Ultrasound guidance of PICC line placement. FILLING MIXER: COMPLICATIONS: None ANESTHESIA: 1. 1% Lidocaine locally. FINDINGS/TECHNIQUE: The procedure was explained to the patient. The risks, complications, benefits and alternatives were discussed and any questions were answered. Informed consent was obtained. The patient was placed supine on the fluoroscopic table and prepped and draped in the usual sterile fash ion. Utilizing a 21 gauge needle and sonographic guidance, access in the right basilic vein was ach ieved and there is placement of a 0.018 guidewire. The vein is patent. A 5-F. sheath was placed ove r the guidewire. The guidewire and dilator were removed and a 5-F. Double lumen PICC line was placed through the sheath with the chest x-ray confirming the tip at the level of the SVC. The sheath was removed, the catheter was flushed and sutured into position. The patient was stable throughout the p rocedure and remained stable upon discharge from the Department of Radiology. The vein puncture was patent under ultrasound. A templeton scale image was obtained to document patency of the vein punctured. All elements of the maximal barrier technique were utilized. IMPRESSION: 1. Successful PICC line placement under ultrasound performed bedside within the ICU.
[2020-12-19 12:34] LABS: Glucose,Whole Blood 125 mg/dL (75-99)
--- NOTE | 2020-12-19 13:54 | P.PN ---
Subjective Progress Note Date: 12/19/20 CHIEF COMPLAINT: COVID-19 pneumonia HISTORY OF PRESENT ILLNESS: Surgical service following due to GI bleed. Patient is in the ICU. Patient was extubated yesterday He was successfully extubated this morning. He's on 12 L high flow oxygen. No reported signs of active bleeding. Denies any nausea vomiting. Denies any abdominal pain. Afebrile. WBC 4.3 hemoglobin 9.1. Platelets 47. Patient did receive a unit of blood yesterday for hemoglobin 6.8. Patient has received a total of 6 units of PRBCs during this admission. Patient was restarted on Lovenox yesterday PHYSICAL EXAM: VITAL SIGNS: Reviewed. GENERAL: Well-developed in no acute distress. HEENT: No sclera icterus. Extraocular movements grossly intact. Moist buccal mucosa. Head is atraumatic, normocephalic. ABDOMEN: Soft. Nondistended. Nontender. NEUROLOGIC: Patient is awake ASSESSMENT: 1. Acute GI bleed 2. Acute blood loss anemia requiring blood transfusion during this admission PLAN: -Plan for endoscopy when medically stable -Continue ICU management -Continue supportive care -Continue to monitor hemoglobin -Continue to monitor for any signs or symptoms of bleeding -Continue PPI Physician Blister Rust Eradicator note has been reviewed by physician. Signing provider agrees with the documented findings, assessment, and plan of care. Objective - Vital Signs Vital signs: Vital Signs Temp 98 F 12/19/20 12:00 Pulse 89 12/19/20 13:00 Resp 21 12/19/20 13:00 BP 122/66 12/18/20 14:00 Pulse Ox 93 L 12/19/20 13:00 Intake & Output 12/18/20 12/19/20 12/19/20 18:59 06:59 18:59 Intake Total 1288 858 368 Output Total 1875 1425 1090 Balance -587 -567 -722 Weight 107.8 kg Intake: IV 978 858 168 Dextrose 5% in Water 1, 975 825 150 000 ml @ 75 mls/hr IV . [id number] [facility] Rx#:[id number] Normal Saline Pressure 3 33 18 Bag @ 3mL/hr Oral 200 Blood Product 310 Rc As-1 Unit 310 [id number] Output: Urine 1875 1425 1090 Other: Voiding Method Indwelling Catheter Indwelling Catheter Indwelling Catheter ABP, PAP, CO, CI - Last Documented Arterial Blood Pressure 148/60 - Labs CBC & Chem 7: 12/19/20 03:12 12/19/20 03:12 Labs: Abnormal Lab Results - Last 24 Hours (Table) 12/18/20 12/18/20 12/19/20 Range/Units 14:00 20:40 03:12 RBC 2.91 L 2.98 L 2.92 L (4.30-5.90) m/uL Hgb 8.9 L D 9.2 L 9.1 L (13.0-17.5) gm/dL Hct 27.6 L 28.0 L 27.6 L (39.0-53.0) % RDW 17.7 H 17.4 H 17.4 H (11.5-15.5) % Plt Count 34 L 39 L 47 L (150-450) k/uL Lymphocytes # 0.6 L (1.0-4.8) k/uL Chloride (98-107) mmol/L BUN (9-20) mg/dL Creatinine (0.66-1.25) mg/dL POC Glucose (mg/dL) (75-99) mg/dL Calcium (8.4-10.2) mg/dL Lactate Dehydrogenase (313-618) U/L C-Reactive Protein (<1.0) mg/dL 12/19/20 12/19/20 12/19/20 Range/Units 03:12 06:29 12:31 RBC (4.30-5.90) m/uL Hgb (13.0-17.5) gm/dL Hct (39.0-53.0) % RDW (11.5-15.5) % Plt Count (150-450) k/uL Lymphocytes # (1.0-4.8) k/uL Chloride 115 H (98-107) mmol/L BUN 50 H (9-20) mg/dL Creatinine 1.26 H (0.66-1.25) mg/dL POC Glucose (mg/dL) 101 H 125 H (75-99) mg/dL Calcium 8.1 L (8.4-10.2) mg/dL Lactate Dehydrogenase 2132 H (313-618) U/L C-Reactive Protein 5.2 H (<1.0) mg/dL
--- NOTE | 2020-12-19 14:43 | P.PN ---
Subjective Progress Note Date: 12/19/20 HISTORY OF PRESENT ILLNESS This is a pleasant 60-year-old gentleman patient of Dr. Ridge Christina. He doesn't see a physician often and does not note any medical diseases, except for obesity. He comes seen secondary to fever and chills, cough, starting December 06 first, along with muscle aches, lack of appetite and diarrhea. he was tested for call bid November 08, which required at week of reporting, subsequently was sent to emergency room secondary to worsening symptoms, including dyspnea on exertion, shortness of breath and worsening cough without hemoptysis. Fever, sh ortness of breath lingers, no treatment given to him prior to this admission. The is vaccinated, but the patient is not. He does not believe in vaccines at that time. He comes in the emergency room, with hypoxemia, with very minimal conversational dyspnea, chest x-ray, shows pulmonary infiltrate consistent with Covid pneumonia, oxygen currently is at 6 L nasal cannula, d-dimer was 0.6, LFTs are minimally elevated, 64 AST, lactic acid 2.0 sodium 132, creatinine of 0.9, glucose of 122, LDH of 888, CRP of 5.7. Urine protein noted, without hematuria or proteinuria. Covid was again retested 11/14, PCR is positive. Consult to Dr. Eduardo and pulmonary,, [facility] but continued to have hypoxia with drop in his oxygenation level despite use of airflow and nonrebreather. He completed a course of Baricitnib and was treated also with dexamethasone, Lovenox and supplements. Patient was eventually transitioned to ICU on 11/25 with BiPAP and patient at times seemed to be stabilized and improving but then he developed a GI bleed required blood transfusion and vasopressor support. He was subsequently intubated on 12/07. Other conditions complicating his stay include thrombocytopenia, atrial fibrillation with RVR converted to sinus rhythm and kidney injury. 12/18: Patient remains in intensive care unit and was successfully extubated thi s morning and is currently on high flow nasal cannula at 10 L with pulse ox is 93%. He remains an sinus rhythm, afebrile, blood pressure 137/62. One unit of packed RBCs ordered for hemoglobin of 6.8. BUN 64 and creatinine 1.44. Blood sugars are running 101-138. Repeat inflammatory markers: LDH 1857, C-reactive protein 4. Chest x-ray reveals mild cardiomegaly with left greater than right bilateral multifocal opacities consistent with Covid. Nephrology is taking the patient off Diamox. 12/19: She remains in the intensive care unit for breathing status seems to be stable he is currently on O2 at 12 L nasal cannula with pulse ox in the low 90s. Blood pressure 167/74, respiratory rate 27, heart rate in the 80s and 90s, afebrile. monitor worker is sinus rhythm. monitor worker is He is feeling tired. PICC line placed this morning for IV access and triple lumen catheter discontinued. PT OT to work with patient most likely will require subacute rehab. REVIEW OF SYSTEMS Constitutional: No fever, no chills, no night sweats. No weight change. Reports weakness, reports fatigue reports lethargy. Reports daytime sleepiness. EENT: No headache. No blurred vision or double vision, no loss of vision. No loss of Hearing, no ringing in the ears, no dizziness. No nasal drainage or congestion. No epistaxis. No sore throat. Lungs Reported shortness of breath, reported cough, no sputum production. No wheezing. Cardiovascular: No chest pain, no lower extremity edema. No palpitations. No paroxysmal nocturnal dyspnea. No orthopnea. No lightheadedness or dizziness. No syncopal episodes. Abdominal: No abdominal pain. No nausea, vomiting. None diarrhea. No constipation. No bloody or tarry stools. Reports loss of appetite. Genitourinary: No dysuria, increased frequency, urgency. No urinary retention- Mackenzie in place. Musculoskeletal: No myalgias. Generalized muscle weakness, no gait dysfunction, no frequent falls. No back pain. No neck pain. Integumentary: No wounds, no lesions. No rash or pruritus. No unusual bruising. Neurologic: No aphasia. No facial droop. No change in mentation. No head injury. No headache. No paresthesia. Psychiatric: No depression. No anxiety. No mood swings. Insomnia. Endocrine: Noted mildly elevated blood sugars. PHYSICAL EXAMINATION Gen: This is a 60-year-old obese male in the ICU , currently on nasal cannula O2. Patient's at bedside. HEENT: Head is atraumatic, normocephalic. Pupils equal, round. Sclerae is anicteric, conjunctiva edema. NECK: Supple. No JVD. No lymphadenopathy. No thyromegaly. LUNGS: Diminished with crackles in the scattered bilateral. HEART: Regular rate and rhythm. No murmur. monitor worker is a sinus rhythm. ABDOMEN: obese. Soft. Bowel sounds are present. No masses. No tenderness. Mackenzie catheter draining clear frederick urine with good urine output. EXTREMITIES: 1+ bilateral pedal edema. No calf tenderness. NEUROLOGICAL: Patient is awake alert and oriented 3, severe weakness. ASSESSMENT AND PLAN 1. Acute respiratory failure: Secondary to COVID-19 requiring intubation and mechanical ventilation, with possible secondary bacterial pneumonia. Patient has been successfully extubated. Continue albuterol inhaler 2 puffs as needed, dexamethasone 4 mg IV daily, Lovenox 30 mg subcu daily, vitamin supplements. Consult with pulmonary medicine appreciated. 2. Sepsis (POA) secondary to COVID-19 pneumonia, with acute hypoxemic respiratory failure, diagnosis was of 11/08/2020. 3. Moderate protein calorie malnutrition secondary to poor oral intake. Continue protein supplements. 4. New-onset atrial fibrillation with RVR, paroxysmal atrial fibrillation. Currently in sinus rhythm. Continue oral amiodarone 200 mg twice daily, Eliquis placed on hold due to GI bleed. Echocardiogram as above. 5. Thrombocytopenia secondary to sepsis. No anticoagulation due to t hrombocytopenia, GI bleed. Transfusion of 2 unit of platelets. 6. Acute GI bleed with acute blood loss anemia. Eliquis placed on hold, total of 6 units packed RBCs, IV fluid boluses, consult with Dr. Ojeda appreciated. EGD and colonoscopy once patient is stabilized, Dr. Lester is following. 7. Acute hypovolemic shock or septic shock requiring vasopressors, massive IV fluid resuscitation. Patient is off vasopressors and blood pressure has been stable. 8. Acute kidney injury with ATN secondary to septic shock. Consult with nephrology appreciated. Patient has had good urine output. 9. Metabolic acidosis secondary to acute kidney injury. 10. Severe hyperkalemia secondary to acute kidney injury. Followed by nephrology. 11. Shock liver secondary to hypotension. Monitor liver function test. 12. DVT prophylaxis. 13. GI prophylaxis. Protonic. 14. BPH. Makcenzie catheter 15. Proteinuria, unknown cause. 16. Dymetabolic syndrome, monitor for hyperglycemia, A1c 6.4. NovoLog scale every 4 hours, added Levemir 12 units twice daily. 17. Back pain. CODE Status: Full code Prognosis: guarded. Impression and plan of care have been directed as dictated by the signing physician. Sanam Valentine nurse practitioner acting as scribe for signing physician. Objective - Vital Signs Vital signs: Vital Signs Temp 98.6 F 12/19/20 08:00 Pulse 89 12/19/20 11:00 Resp 26 H 12/19/20 11:00 BP 122/66 12/18/20 14:00 Pulse Ox 93 L 12/19/20 11:00 Intake & Output 12/18/20 12/19/20 12/19/20 18:59 06:59 18:59 Intake Total 1288 858 265 Output Total 1875 1425 890 Balance -747 -320 -832 Weight 107.8 kg Intake: IV 978 858 165 Dextrose 5% in Water 1, 975 825 150 000 ml @ 75 mls/hr IV . [id number] [facility] Rx#:[id number] Normal Saline Pressure 3 33 15 Bag @ 3mL/hr Oral 100 Blood Product 310 Rc As-1 Unit 310 [id number] Output: Urine 1875 1425 890 Other: Voiding Method Indwelling Catheter Indwelling Catheter Indwelling Catheter ABP, PAP, CO, CI - Last Documented Arterial Blood Pressure 146/59 - Labs CBC & Chem 7: 12/19/20 03:12 12/19/20 03:12 Labs: Abnormal Lab Results - Last 24 Hours (Table) 12/16/20 12/18/20 12/18/20 Range/Units 14:54 11:33 14:00 RBC 2.91 L (4.30-5.90) m/uL Hgb 8.9 L D (13.0-17.5) gm/dL Hct 27.6 L (39.0-53.0) % RDW 17.7 H (11.5-15.5) % Plt Count 34 L (150-450) k/uL Lymphocytes # (1.0-4.8) k/uL Chloride (98-107) mmol/L BUN (9-20) mg/dL Creatinine (0.66-1.25) mg/dL POC Glucose (mg/dL) 101 H (75-99) mg/dL Calcium (8.4-10.2) mg/dL Lactate Dehydrogenase (313-618) U/L C-Reactive Protein (<1.0) mg/dL Crossmatch See Detail 12/18/20 12/19/20 12/19/20 Range/Units 20:40 03:12 03:12 RBC 2.98 L 2.92 L (4.30-5.90) m/uL Hgb 9.2 L 9.1 L (13.0-17.5) gm/dL Hct 28.0 L 27.6 L (39.0-53.0) % RDW 17.4 H 17.4 H (11.5-15.5) % Plt Count 39 L 47 L (150-450) k/uL Lymphocytes # 0.6 L (1.0-4.8) k/uL Chloride 115 H (98-107) mmol/L BUN 50 H (9-20) mg/dL Creatinine 1.26 H (0.66-1.25) mg/dL POC Glucose (mg/dL) (75-99) mg/dL Calcium 8.1 L (8.4-10.2) mg/dL Lactate Dehydrogenase 2132 H (313-618) U/L C-Reactive Protein 5.2 H (<1.0) mg/dL Crossmatch 12/19/20 Range/Units 06:29 RBC (4.30-5.90) m/uL Hgb (13.0-17.5) gm/dL Hct (39.0-53.0) % RDW (11.5-15.5) % Plt Count (150-450) k/uL Lymphocytes # (1.0-4.8) k/uL Chloride (98-107) mmol/L BUN (9-20) mg/dL Creatinine (0.66-1.25) mg/dL POC Glucose (mg/dL) 101 H (75-99) mg/dL Calcium (8.4-10.2) mg/dL Lactate Dehydrogenase (313-618) U/L C-Reactive Protein (<1.0) mg/dL Crossmatch
[2020-12-19] MEDS ORDERED: FUROSEMIDE 10 MG/ML 4 ML VIAL IV STA (18:42)
[2020-12-19 18:48] LABS: Glucose,Whole Blood 128 mg/dL (75-99)
[2020-12-19] MEDS ORDERED: ACETAMINOPHEN IV (For NPO) 1,000 MG in EMPTY BAG 1 BAG IVPB ONE (20:00)
[2020-12-19 20:20] LABS: Glucose,Whole Blood 144 mg/dL (75-99)
[2020-12-20] MEDS ORDERED: ACETAMINOPHEN IV (For NPO) 1,000 MG in EMPTY BAG 1 BAG IVPB ONE (01:15)
[2020-12-20 05:51] LABS: Anisocytosis Slight; Basophils % (A) 0 %; Eosinophils % (A) 1 %; HCT 27.6 % (39.0-53.0); HGB 9.3 gm/dL (13.0-17.5); Lymphocytes # (A) 0.7 k/uL (1.0-4.8); Lymphocytes % (A) 19 %; MCH 30.8 pg (25.0-35.0); MCHC 33.6 g/dL (31.0-37.0); MCV 91.6 fL (80.0-100.0); Mean Platelet Volume 9.9; Monocytes # (A) 0.2 k/uL (0-1.0); Monocytes % (A) 6 %; Neutrophils # (A) 2.6 k/uL (1.3-7.7); Neutrophils % (A) 72 %; Poikilocytosis Slight; RBC 3.01 m/uL (4.30-5.90); RDW 17.5 % (11.5-15.5); WBC 3.6 k/uL (3.8-10.6)
[2020-12-20 05:57] LABS: Platelet Count 73 k/uL (150-450)
--- NOTE | 2020-12-20 06:47 | XR ---
EXAMINATION TYPE: XR chest 1V portable DATE OF EXAM: 12/20/2020 CLINICAL HISTORY: Difficulty breathing progress study. TECHNIQUE: Single AP portable upright view of the chest is obtained. COMPARISON: Chest x-ray from one day earlier and older studies. FINDINGS: Stable right-sided PICC line. Persistent Bilateral multifocal opacities greater in the left lung redemonstrated. Improved aeration right lung noted. Cardiac silhouette size is less prominent and upper limits of normal with silhouett ing left heart border. Osseous structures are intact. IMPRESSION: Left greater than right bilateral multifocal opacities consistent with known covid-19 inf ection are redemonstrated. Improved findings right lung noted one day earlier.
[2020-12-20 07:04] LABS: Calcium 7.9 mg/dL (8.4-10.2); Potassium 3.7 mmol/L (3.5-5.1)
[2020-12-20 07:29] LABS: C Reactive Protein 16.5 mg/dL (<1.0)
[2020-12-20 08:09] LABS: Glucose,Whole Blood 81 mg/dL (75-99)
[2020-12-20] MEDS: INSULIN ASPART (NovoLOG) 100 UNIT/ML VIAL SQ SCH ×4 (08:09→20:37)
[2020-12-20] MEDS: POTASSIUM CHLORIDE 10 MEQ in WATER FOR INJECTION 1 100ML.BAG IVPB SCH ×4 (08:13→19:11)
--- NOTE | 2020-12-20 09:35 | P.PN ---
Subjective Patient is seen in follow-up for acute kidney injury. Renal function stable. Extubated December 18. Nonoliguric. Denies chest pain or shortness of breath. Currently on nonrebreather. Did have some respiratory distress overnight. Awake and alert. Vital signs are stable. HEENT: On nasal cannula. LUNGS: Breath sounds decreased. HEART: Regular rhythm. ABDOMEN: Soft, obese. EXTREMITITES: 1+ edema. Scrotal edema noted. Objective - Vital Signs Vital signs: Vital Signs Temp 99.0 F 12/20/20 08:00 Pulse 88 12/20/20 09:00 Resp 24 12/20/20 09:00 BP 145/74 12/20/20 09:00 Pulse Ox 100 12/20/20 09:00 Intake & Output 12/19/20 12/20/20 12/20/20 18:59 06:59 18:59 Intake Total 386 36 109 Output Total 1940 2560 335 Balance -6996 -3144 -270 Weight 107.8 kg 107.8 kg Intake: IV 186 36 9 Dextrose 5% in Water 1, 150 000 ml @ 75 mls/hr IV . [id number] [facility] Rx#:[id number] Normal Saline Pressure 36 36 9 Bag @ 3mL/hr Intake, IV Titration 100 Amount Potassium Chloride 10 meq 100 In Water For Injection 1 100ml.bag @ 100 mls/hr IVPB Q1H [facility] Rx#: [id number] Oral 200 Output: Urine 1940 2560 335 Other: Voiding Method Indwelling Catheter Indwelling Catheter # Bowel Movements 1 ABP, PAP, CO, CI - Last Documented Arterial Blood Pressure 117/61 - Labs CBC & Chem 7: 12/20/20 05:19 12/20/20 05:19 Labs: Abnormal Lab Results - Last 24 Hours (Table) 12/19/20 12/19/20 12/19/20 Range/Units 12:31 18:47 20:19 WBC (3.8-10.6) k/uL RBC (4.30-5.90) m/uL Hgb (13.0-17.5) gm/dL Hct (39.0-53.0) % RDW (11.5-15.5) % Plt Count (150-450) k/uL Lymphocytes # (1.0-4.8) k/uL Chloride (98-107) mmol/L BUN (9-20) mg/dL Creatinine (0.66-1.25) mg/dL POC Glucose (mg/dL) 125 H 128 H 144 H (75-99) mg/dL Calcium (8.4-10.2) mg/dL Lactate Dehydrogenase (313-618) U/L C-Reactive Protein (<1.0) mg/dL 12/20/20 12/20/20 Range/Units 05:19 05:19 WBC 3.6 L (3.8-10.6) k/uL RBC 3.01 L (4.30-5.90) m/uL Hgb 9.3 L (13.0-17.5) gm/dL Hct 27.6 L (39.0-53.0) % RDW 17.5 H (11.5-15.5) % Plt Count 73 L D (150-450) k/uL Lymphocytes # 0.7 L (1.0-4.8) k/uL Chloride 111 H (98-107) mmol/L BUN 42 H (9-20) mg/dL Creatinine 1.31 H (0.66-1.25) mg/dL POC Glucose (mg/dL) (75-99) mg/dL Calcium 7.9 L (8.4-10.2) mg/dL Lactate Dehydrogenase 1890 H (313-618) U/L C-Reactive Protein 16.5 H (<1.0) mg/dL Assessment and Plan Plan: Assessment: 1. Acute kidney injury secondary to ATN secondary to septic shock. Baseline creatinine near 1 and peaked at 2.9 on this admission - 1.31 today. Nonoliguric. No hydronephrosis was noted. 2. Hyperkalemia secondary to acute kidney injury and metabolic acidosis. Improved with medical management. 3. Metabolic acidosis secondary to acute kidney injury. Resolved. 4. Septic shock secondary to COVID-19 infection. Off vasopressors. 5. Acute hypoxic respiratory failure. 6. Volume overload. Improving with diuresis. 7. A. fib with RVR on oral amiodarone. 8. Hypernatremia due to free water diuresis. Improved. 9. Metabolic alkalosis secondary to diuresis. Improved with Diamox. 10. Hypokalemia from diuresis. Replaced. 11. Acute blood loss anemia. No active bleeding. Status post blood transfusion. Plan: Avoid nephrotoxins. Continue to monitor renal function and urine output. Lasix 40 mg IV once today. Wean FiO2.
[2020-12-20] MEDS: PANTOPRAZOLE 40 MG/10 ML VIAL IVP SCH ×2 (09:45→20:37)
[2020-12-20] MEDS: ENOXAPARIN 30 MG/0.3 ML SYRINGE SQ SCH (09:46)
[2020-12-20] MEDS: DEXAMETHASONE SOD PHOSPHATE 4 MG/ML 1 ML VIAL IV SCH (09:47)
--- NOTE | 2020-12-20 09:59 | P.PN ---
Subjective Progress Note Date: 12/20/20 Principal diagnosis: COVID-19 pneumonia On 12/20/2020 patient is seen in follow-up in intensive care unit, he was successfully weaned and extubated from mechanical ventilator on the morning of 12/18/2020. Tolerating extubation quite well so far, he is currently on 10 L per high flow nasal cannula, his pulse ox is 100%, he is breathing quite comfortably, he is awake and alert, oriented 3, he passed a swallow evaluation, and he is tolerating a regular diet. No nausea vomiting or diarrhea, did have a febrile episodes overnight, with a temp of 101.8F, low-grade fever this morning. Hemodynamically he is stable, he is not on any maintenance IV fluids. Based chest x-ray has been reviewed showing left greater than right bilateral multifocal opacities consistent with known coronary 19 pneumonia, and there is improvement in the appearance of her right lung infiltrates compared to his previous chest x-ray from yesterday. Patient remains on Lovenox 30 mg daily, there has been no recurrence of GI bleeding, he remains on IV Decadron currently on 4 mg daily. Today's labs have been reviewed, showing white blood cell count of 3.6, hemoglobin of 9.3, platelet count is improving and is up to 73 on today's labs, his lymphocyte count is improving and is up to 0.7, sodium is 138, potassium is 3.7, chloride is 111, CO2 is 25, renal profile is improving, BUN is 42 creatinine is 1.31 inflammatory markers are improving, and LDH is down to 1890, and CRP is actually up today, to 16.5 from previous 5.2. Blood urine and PICC line tip cultures have been negative. Objective - Vital Signs Vital signs: Vital Signs Temp 99.0 F 12/20/20 08:00 Pulse 88 12/20/20 09:00 Resp 24 12/20/20 09:00 BP 145/74 12/20/20 09:00 Pulse Ox 100 12/20/20 09:00 Intake & Output 12/19/20 12/20/20 12/20/20 18:59 06:59 18:59 Intake Total 386 36 109 Output Total 7540 0510 335 Balance -1554 -2524 -226 Weight 107.8 kg 107.8 kg Intake: IV 186 36 9 Dextrose 5% in Water 1, 150 000 ml @ 75 mls/hr IV . [id number] [facility] Rx#:[id number] Normal Saline Pressure 36 36 9 Bag @ 3mL/hr Intake, IV Titration 100 Amount Potassium Chloride 10 meq 100 In Water For Injection 1 100ml.bag @ 100 mls/hr IVPB Q1H [facility] Rx#: [id number] Oral 200 Output: Urine 1940 2560 335 Other: Voiding Method Indwelling Catheter Indwelling Catheter # Bowel Movements 1 ABP, PAP, CO, CI - Last Documented Arterial Blood Pressure 117/61 - Exam GENERAL EXAM: 60-year-old white male, on assist-control mode of ventilation sedated and paralyzed with FiO2 of 60%, and PEEP of 12 HEAD: Normocephalic/atraumatic. EYES: Normal reaction of pupils, equal size. Conjunctiva pink, sclera white. NOSE: Clear with pink turbinates. THROAT: No erythema or exudates. NECK: No masses, no JVD, no thyroid enlargement, no adenopathy. CHEST: No chest wall deformity. Symmetrical expansion. LUNGS: Equal air entry with no crackles, wheeze, rhonchi or dullness. CVS: Regular rate and rhythm, normal S1 and S2, no gallops, no murmurs, no rubs ABDOMEN: Soft, nontender. No hepatosplenomegaly, normal bowel sounds, no guarding or rigidity. EXTREMITIES: No clubbing, no edema, no cyanosis, 2+ pulses and upper and lower extremities. MUSCULOSKELETAL: Muscle strength and tone normal. SPINE: No scoliosis or deformity SKIN: No rashes CENTRAL NERVOUS SYSTEM: Sedated, paralyzed and intubated No focal deficits, tone is normal in all 4 extremities. - Labs CBC & Chem 7: 12/20/20 05:19 12/20/20 05:19 Labs: Abnormal Lab Results - Last 24 Hours (Table) 12/19/20 12/19/20 12/19/20 Range/Units 12:31 18:47 20:19 WBC (3.8-10.6) k/uL RBC (4.30-5.90) m/uL Hgb (13.0-17.5) gm/dL Hct (39.0-53.0) % RDW (11.5-15.5) % Plt Count (150-450) k/uL Lymphocytes # (1.0-4.8) k/uL Chloride (98-107) mmol/L BUN (9-20) mg/dL Creatinine (0.66-1.25) mg/dL POC Glucose (mg/dL) 125 H 128 H 144 H (75-99) mg/dL Calcium (8.4-10.2) mg/dL Lactate Dehydrogenase (313-618) U/L C-Reactive Protein (<1.0) mg/dL 12/20/20 12/20/20 Range/Units 05:19 05:19 WBC 3.6 L (3.8-10.6) k/uL RBC 3.01 L (4.30-5.90) m/uL Hgb 9.3 L (13.0-17.5) gm/dL Hct 27.6 L (39.0-53.0) % RDW 17.5 H (11.5-15.5) % Plt Count 73 L D (150-450) k/uL Lymphocytes # 0.7 L (1.0-4.8) k/uL Chloride 111 H (98-107) mmol/L BUN 42 H (9-20) mg/dL Creatinine 1.31 H (0.66-1.25) mg/dL POC Glucose (mg/dL) (75-99) mg/dL Calcium 7.9 L (8.4-10.2) mg/dL Lactate Dehydrogenase 1890 H (313-618) U/L C-Reactive Protein 16.5 H (<1.0) mg/dL Assessment and Plan Plan: #1. acute Covid 19 related pneumonia. Patient is not vaccinated. The patient has not received any outpatient treatments for Covid 19 infection. Diagnosis established during this current admission. Started on Bariticinib on 11/15/2020 in view of worsening hypoxic respiratory failure. Patient was outside the window for Remdesivir. Intubated on 12/07/2020, successfully weaned and extubated on 12/18/2020. Tolerating extubation quite well so far #2. acute hypoxic respiratory failure which has significantly progressed since admission, and patient is currently on Airvo at 60 L and FiO2 of 94% in addition to nonrebreather mask, and his pulse ox is 85%. In view of worsening chest x- ray findings and worsening hypoxia patient will be transferred to the intensive care unit today on 11/22/2020, intubated on 12/07/2020, extubated 12/18/2020 #3. Paroxysmal atrial fibrillation, with a rapid ventricular response, remains on amiodarone, he failed cardioversion. Currently in sinus mechanism, the controlled rates. #4. Acute hemorrhagic shock related to acute GI bleeding with possibility of upper GI bleed. Eliquis is on hold, patient received aggressive fluid resuscitation, 4 units of packed red blood cells and Kcentra. Eliquis remains on hold. Patient is in sinus mechanism, platelet count remains low but improving, currently #5. Acute thrombocytopenia, likely consumptive, no clear indication for DIC, the resident coagulation profile is within normal limits, platelet count is improving. #6. Possibility of a septic shock less likely, patient was empirically covered with Zosyn and vancomycin. Currently not on any antibiotics. All cultures are negative #7. Acute leukocytosis, resolved #8. Transaminitis related to sepsis/hypotension and shock, improved #9. Limited pneumomediastinum evident on the computed tomography scan of the abdomen #10. Acute kidney injury with today's creatinine up to 2.91, related to ATN, nephrology is on the case, improving #11. Obesity with a BMI of 38. #12. Increased inflammatory markers related to acute COVID-19 pneumonia #13. Increased d-dimer, related to viral pneumonia, was on Eliquis, currently just on prophylactic Lovenox for recent history of hemorrhagic shock related to acute GI bleeding Plan: Continue weaning FiO2 Incentive spirometer to the bedside, instructed patient on the use Today's chest x-ray shows improvement in aeration of the right lung One-time dose Lasix 40 mg IV push Continue current dose Decadron We will increase Lovenox to 40 mg daily There has been no recurrence of bleeding Platelet count remains low but improving Today's labs have been noted We'll continue holding Eliquis, patient has remained in sinus mechanism Continue PPI therapy with Protonix 40 mg twice daily Physical therapy consultation Increase activity as tolerated I performed a history & physical examination of the patient and discussed their management with my nurse practitioner, Jovita Thomas. I reviewed the nurse practitioner's note and agree with the documented findings and plan of care. Lung sounds are positive for diminished breath sounds throughout the lung felix. The findings and the impression was discussed with the patient. I attest to the documentation by the nurse practitioner. Time with Patient: Greater than 30
[2020-12-20] MEDS: CHOLECALCIFEROL 25 MCG (1000 IU) TABLET PO SCH (10:12)
[2020-12-20] MEDS: ASCORBIC ACID 500 MG TAB PO SCH ×2 (10:12→20:37)
[2020-12-20] MEDS: AMIODARONE 200 MG TAB PO SCH ×2 (10:12→20:37)
[2020-12-20] MEDS: ZINC SULFATE 220 MG CAP PO SCH (10:12)
[2020-12-20 10:27] LABS: Glucose,Whole Blood 68 mg/dL (75-99)
[2020-12-20] MEDS ORDERED: DEXTROSE 50% SYRINGE 50 ML IVP ONE (10:28)
[2020-12-20] MEDS ORDERED: DEXTROSE 50% SYRINGE 50 ML IVP STA (10:30)
[2020-12-20] MEDS: INSULIN DETEMIR (LEVEMIR) 100 UNIT/ML SYR SQ SCH ×2 (10:34→20:37)
[2020-12-20 10:48] LABS: Glucose,Whole Blood 86 mg/dL (75-99)
--- NOTE | 2020-12-20 10:51 | P.CONS ---
History of Present Illness - Reason for Consult Consult date: 12/20/20 wound care - History of Present Illness This is a 60 year old pleasant malebeing seen for a nonhealing ulcer to sacrum in the ICU. Patient past medical history significant COVID + pneumonia. Patient has a stage II ulceration to the right and left buttocks. It is Limited to skin breakdown measuring approximately 3 x 3 x 0.1 to the right buttocks, 3.5 x 4 x 0.1 cm to the left buttocks. Wound edges are attached to the wound base no tunneling or undermining noted. Granulation is seen throughout the wound bed there is some sloughing noted to the periwound. Minimal nonviable tissue noted to the wound base. Left upper extremity medial aspect shows blistering with open ulcerations Limited to skin breakdown. Wound edges are attached to the wound base. Review Of Systems: Constitutional: No fever, no chills, no night sweats. No weight change. No weakness, fatigue or lethargy. No daytime sleepiness. Integumentary:reports wounds, no lesions. No rash or pruritus. No unusual bruising. No change in hair or nails. Physical exam: General Appearance: Alert, cooperative, no distress, appears stated age. Skin: See HPI all other Skin color, texture, tugor normal, no rashes or lesions. Neurologic: Alert oriented x3 Assessment: 1. Pressure ulcer left and right buttocks Limited to skin breakdown stage II 2. Nonhealing ulceration left upper extremity Limited to skin breakdown Plan: 1. Apply triad and the sacral dressing to the sacrum 2. Apply triad to the left upper arm Thank you for the consultation any questions please contact the wound care center DNP note has been reviewed and discussed with Dr. Loza and the impression and plan of care has been directed as dictated. Past Medical History Past Medical History: No Reported History History of Any Multi-Drug Resistant Organisms: None Reported Past Surgical History: Joint Replacement Additional Past Surgical History / Comment(s): right shoulder surgry 10 years ago Past Psychological History: No Psychological Hx Reported Smoking Status: Never smoker Past Alcohol Use History: Occasional Past Drug Use History: None Reported Medications and Allergies Home Medications Medication Instructions Recorded Confirmed Type Ascorbic Acid [Vitamin C] 1,000 mg PO DAILY 11/14/20 11/14/20 History Cholecalciferol [Vitamin D3 (25 25 mcg PO DAILY 11/14/20 11/14/20 History Mcg = 1000 Iu)] Fish Oil/Dha/Epa [Fish Oil 1,200 1 cap PO DAILY 11/14/20 11/14/20 History mg Fish Oil] Multivitamins, Thera [Multivitamin 1 tab PO DAILY 11/14/20 11/14/20 History (formulary)] Allergies Allergy/AdvReac Type Severity Reaction Status Date / Time No Known Allergies Allergy Verified 11/14/20 14:47 Physical Exam Vitals: Vital Signs Temp Pulse Resp BP Pulse Ox 12/20/20 10:00 92 25 H 129/65 91 L 12/20/20 09:00 88 24 145/74 100 12/20/20 08:00 99.0 F 89 24 136/74 99 12/20/20 07:00 90 25 H 128/66 99 12/20/20 06:00 92 26 H 118/57 99 12/20/20 05:00 86 21 124/65 97 12/20/20 04:00 99.4 F 93 23 106/49 98 12/20/20 03:00 93 23 111/49 98 12/20/20 02:00 104 H 27 H 128/43 98 12/20/20 01:00 111 H 29 H 129/57 98 12/20/20 00:00 101.8 F H 130 H 26 H 122/64 97 12/19/20 23:00 124 H 30 H 129/47 100 12/19/20 22:00 111 H 26 H 137/40 100 12/19/20 21:00 122 H 29 H 150/49 99 12/19/20 20:00 101.7 F H 110 H 30 H 153/93 100 12/19/20 19:09 96 12/19/20 19:00 117 H 34 H 86 L 12/19/20 18:00 97 18 93 L 12/19/20 17:00 97.3 F L 87 24 96 12/19/20 16:00 98.2 F 88 26 H 95 12/19/20 15:00 93 29 H 91 L 12/19/20 14:00 86 31 H 94 L 12/19/20 13:00 89 21 93 L 12/19/20 12:00 98 F 87 25 H 94 L 12/19/20 11:00 89 26 H 93 L Intake and Output 1012/20/20 12/20/20 22:59 06:59 14:59 Intake Total 24 24 212 Output Total 5 1175 435 Balance -2010 Intake: IV 24 24 12 Normal Saline Pressure 24 24 12 Bag @ 3mL/hr Intake, IV Titration 200 Amount Potassium Chloride 10 meq 200 In Water For Injection 1 100ml.bag @ 100 mls/hr IVPB Q1H [facility] Rx#: [id number] Output: Urine 2034 1175 435 Other: Voiding Method Indwelling Catheter Indwelling Catheter # Bowel Movements 1 Weight 107.8 kg ABP, PAP, CO, CI - Last 8 Hours Arterial Blood Pressure 125/62 Arterial Blood Pressure 117/61 Arterial Blood Pressure 105/55 Results CBC & Chem 7: 12/20/20 05:19 12/20/20 05:19 Labs: Abnormal Lab Results - Last 24 Hours (Table) 12/19/20 12/19/20 12/19/20 Range/Units 12:31 18:47 20:19 WBC (3.8-10.6) k/uL RBC (4.30-5.90) m/uL Hgb (13.0-17.5) gm/dL Hct (39.0-53.0) % RDW (11.5-15.5) % Plt Count (150-450) k/uL Lymphocytes # (1.0-4.8) k/uL Chloride (98-107) mmol/L BUN (9-20) mg/dL Creatinine (0.66-1.25) mg/dL POC Glucose (mg/dL) 125 H 128 H 144 H (75-99) mg/dL Calcium (8.4-10.2) mg/dL Lactate Dehydrogenase (313-618) U/L C-Reactive Protein (<1.0) mg/dL 12/20/20 12/20/20 Range/Units 05:19 05:19 WBC 3.6 L (3.8-10.6) k/uL RBC 3.01 L (4.30-5.90) m/uL Hgb 9.3 L (13.0-17.5) gm/dL Hct 27.6 L (39.0-53.0) % RDW 17.5 H (11.5-15.5) % Plt Count 73 L D (150-450) k/uL Lymphocytes # 0.7 L (1.0-4.8) k/uL Chloride 111 H (98-107) mmol/L BUN 42 H (9-20) mg/dL Creatinine 1.31 H (0.66-1.25) mg/dL POC Glucose (mg/dL) (75-99) mg/dL Calcium 7.9 L (8.4-10.2) mg/dL Lactate Dehydrogenase 1890 H (313-618) U/L C-Reactive Protein 16.5 H (<1.0) mg/dL Assessment and Plan (1) Pressure injury of left buttock, stage 2 Current Visit: Yes Status: Acute Code(s): L89.322 - PRESSURE ULCER OF LEFT BUTTOCK, STAGE 2 SNOMED Code(s): 19458827209208537 (2) Pressure injury of right buttock, stage 2 Current Visit: Yes Status: Acute Code(s): L89.312 - PRESSURE ULCER OF RIGHT BUTTOCK, STAGE 2 SNOMED Code(s): 11419761965515500 (3) Non-pressure chronic ulcer of skin of other sites limited to breakdown of skin Current Visit: Yes Status: Acute Code(s): L98.491 - NON-PRS CHRONIC ULCER SKIN/ SITES LIMITED TO BRKDWN SKIN SNOMED Code(s): 75126957
[2020-12-20] MEDS: HYDROPHILIC CREAM 180 GM TUBE TOPICAL SCH (11:34)
[2020-12-20 11:38] LABS: Glucose,Whole Blood 109 mg/dL (75-99)
[2020-12-20] MEDS ORDERED: FUROSEMIDE 10 MG/ML 4 ML VIAL IV ONE (12:00)
--- NOTE | 2020-12-20 15:15 | P.PN ---
Subjective Progress Note Date: 12/20/20 CHIEF COMPLAINT: COVID-19 pneumonia HISTORY OF PRESENT ILLNESS: Surgical service following due to GI bleed. Patient is in the ICU. He's had no active signs of bleeding. Bowel movements are brown in color. He did have a temp last night of 101.8. WBC 3.16 hgb 9.3 platelets 73 patient's Eliquis currently on hold. He is on Lovenox for DVT prophylaxis. PHYSICAL EXAM: VITAL SIGNS: Reviewed. GENERAL: Well-developed in no acute distress. HEENT: No sclera icterus. Extraocular movements grossly intact. Moist buccal mucosa. Head is atraumatic, normocephalic. ABDOMEN: Soft. Nondistended. Nontender. NEUROLOGIC: Patient is awake ASSESSMENT: 1. Acute GI bleed 2. Acute blood loss anemia requiring blood transfusion during this admission PLAN: -Plan for endoscopy when medically stable -Continue ICU management -Continue supportive care -Continue to monitor hemoglobin -Continue to monitor for any signs or symptoms of bleeding -Continue PPI Physician Comfort Station Supervisor note has been reviewed by physician. Signing provider agrees with the documented findings, assessment, and plan of care. Objective - Vital Signs Vital signs: Vital Signs Temp 98.4 F 12/20/20 12:00 Pulse 88 12/20/20 15:00 Resp 23 12/20/20 15:00 BP 132/57 12/20/20 15:00 Pulse Ox 93 L 12/20/20 15:00 Intake & Output 12/19/20 12/20/20 12/20/20 18:59 06:59 18:59 Intake Total 386 36 224 Output Total 1940 2560 2260 Balance -9801 -2554 Weight 107.8 kg 107.8 kg Intake: IV 186 36 24 Dextrose 5% in Water 1, 150 000 ml @ 75 mls/hr IV . [id number] [facility] Rx#:[id number] Normal Saline Pressure 36 36 24 Bag @ 3mL/hr Intake, IV Titration 200 Amount Potassium Chloride 10 meq 200 In Water For Injection 1 100ml.bag @ 100 mls/hr IVPB Q1H [facility] Rx#: [id number] Oral 200 Output: Urine 1940 2560 2260 Other: Voiding Method Indwelling Catheter Indwelling Catheter # Bowel Movements 1 1 ABP, PAP, CO, CI - Last Documented Arterial Blood Pressure 108/58 - Labs CBC & Chem 7: 12/20/20 05:19 12/20/20 05:19 Labs: Abnormal Lab Results - Last 24 Hours (Table) 12/19/20 12/19/20 12/20/20 Range/Units 18:47 20:19 05:19 WBC 3.6 L (3.8-10.6) k/uL RBC 3.01 L (4.30-5.90) m/uL Hgb 9.3 L (13.0-17.5) gm/dL Hct 27.6 L (39.0-53.0) % RDW 17.5 H (11.5-15.5) % Plt Count 73 L D (150-450) k/uL Lymphocytes # 0.7 L (1.0-4.8) k/uL Chloride (98-107) mmol/L BUN (9-20) mg/dL Creatinine (0.66-1.25) mg/dL POC Glucose (mg/dL) 128 H 144 H (75-99) mg/dL Calcium (8.4-10.2) mg/dL Lactate Dehydrogenase (313-618) U/L C-Reactive Protein (<1.0) mg/dL 12/20/20 12/20/20 12/20/20 Range/Units 05:19 10:23 11:36 WBC (3.8-10.6) k/uL RBC (4.30-5.90) m/uL Hgb (13.0-17.5) gm/dL Hct (39.0-53.0) % RDW (11.5-15.5) % Plt Count (150-450) k/uL Lymphocytes # (1.0-4.8) k/uL Chloride 111 H (98-107) mmol/L BUN 42 H (9-20) mg/dL Creatinine 1.31 H (0.66-1.25) mg/dL POC Glucose (mg/dL) 68 L 109 H (75-99) mg/dL Calcium 7.9 L (8.4-10.2) mg/dL Lactate Dehydrogenase 1890 H (313-618) U/L C-Reactive Protein 16.5 H (<1.0) mg/dL
[2020-12-20 16:47] LABS: Glucose,Whole Blood 156 mg/dL (75-99)
[2020-12-20 19:53] LABS: Glucose,Whole Blood 143 mg/dL (75-99)
[2020-12-21 07:08] LABS: Glucose,Whole Blood 111 mg/dL (75-99)
[2020-12-21] MEDS: INSULIN ASPART (NovoLOG) 100 UNIT/ML VIAL SQ SCH ×4 (07:09→20:33)
[2020-12-21] MEDS: INSULIN DETEMIR (LEVEMIR) 100 UNIT/ML SYR SQ SCH ×2 (07:20→20:34)
[2020-12-21] MEDS: PANTOPRAZOLE 40 MG/10 ML VIAL IVP SCH ×2 (07:36→20:33)
[2020-12-21] MEDS: ZINC SULFATE 220 MG CAP PO SCH (07:37)
[2020-12-21] MEDS: ENOXAPARIN 40 MG/0.4 ML SYRINGE SQ SCH (07:37)
[2020-12-21] MEDS: AMIODARONE 200 MG TAB PO SCH ×2 (07:38→20:33)
[2020-12-21] MEDS: ASCORBIC ACID 500 MG TAB PO SCH ×2 (07:38→20:33)
[2020-12-21] MEDS: DEXAMETHASONE SOD PHOSPHATE 4 MG/ML 1 ML VIAL IV SCH (07:38)
[2020-12-21] MEDS: CHOLECALCIFEROL 25 MCG (1000 IU) TABLET PO SCH (07:38)
[2020-12-21] MEDS: ALBUTEROL HFA INHALER INHALATION PRN (07:51)
[2020-12-21] MEDS: HYDROPHILIC CREAM 180 GM TUBE TOPICAL SCH (08:54)
--- NOTE | 2020-12-21 08:56 | XR ---
EXAMINATION TYPE: XR chest 1V portable DATE OF EXAM: 12/21/2020 CLINICAL HISTORY: Difficulty breathing progress study. COVID TECHNIQUE: Single AP portable upright view of the chest is obtained. COMPARISON: Chest x-ray from one day earlier and older studies. FINDINGS: Stable right-sided PICC line. Persistent Bilateral multifocal opacities are present more prominent in the right lung on current claude dy versus one day earlier. Cardiac silhouette size is stable and upper limits of normal with silhouet ting left heart border redemonstrated. Osseous structures are intact. IMPRESSION: Persistent bilateral multifocal and confluent opacities consistent with known covid-19 in fection are redemonstrated. Some worsening findings in the right lung noted from one day earlier.
--- NOTE | 2020-12-21 08:59 | P.PN ---
Subjective Progress Note Date: 12/21/20 Principal diagnosis: COVID-19 pneumonia On 12/20/2020 patient is seen in follow-up in intensive care unit, he was successfully weaned and extubated from mechanical ventilator on the morning of 12/18/2020. Tolerating extubation quite well so far, he is currently on 10 L per high flow nasal cannula, his pulse ox is 100%, he is breathing quite comfortably, he is awake and alert, oriented 3, he passed a swallow evaluation, and he is tolerating a regular diet. No nausea vomiting or diarrhea, did have a febrile episodes overnight, with a temp of 101.8F, low-grade fever this morning. Hemodynamically he is stable, he is not on any maintenance IV fluids. Based chest x-ray has been reviewed showing left greater than right bilateral multifocal opacities consistent with known coronary 19 pneumonia, and there is improvement in the appearance of her right lung infiltrates compared to his previous chest x-ray from yesterday. Patient remains on Lovenox 30 mg daily, there has been no recurrence of GI bleeding, he remains on IV Decadron currently on 4 mg daily. Today's labs have been reviewed, showing white blood cell count of 3.6, hemoglobin of 9.3, platelet count is improving and is up to 73 on today's labs, his lymphocyte count is improving and is up to 0.7, sodium is 138, potassium is 3.7, chloride is 111, CO2 is 25, renal profile is improving, BUN is 42 creatinine is 1.31 inflammatory markers are improving, and LDH is down to 1890, and CRP is actually up today, to 16.5 from previous 5.2. Blood urine and PICC line tip cultures have been negative. On today's evaluation on 12/21/2020 patient seen in follow-up in the intensive care unit, he is currently on 15 L high flow nasal cannula with a pulse ox of 94-98%, this can probably be weaned down further, hemodynamically stable, he is in sinus mechanism, with a rate of 94, blood pressures 139 was 72, not on any vasopressor support. Maintenance IV fluids are with 0.9 normal saline at a rate of 20 ML per hour, breathing comfortably, does have cough with occasional sputum production. Today's chest x-ray has been reviewed showing relatively stable findings with bilateral multifocal opacities. Patient has not had recurrence of GI bleeding since 12/07/2020, patient is currently tolerating oral diet, although he is only able to take in small amounts of food. He stated that he had a bowel movement, not melanotic, no evidence of blood in it. Today's labs are still pending. The patient is extremely weak. His been working with physical therapy but has not been up in a chair yet. Remains on Decadron 4 mg daily, COVID-19 vitamins, and prophylactic anticoagulation in the form of Lovenox 40 mg subcu daily. Objective - Vital Signs Vital signs: Vital Signs Temp 98.8 F 12/21/20 08:00 Pulse 94 12/21/20 08:00 Resp 28 H 12/21/20 08:00 BP 121/51 12/21/20 08:00 Pulse Ox 94 L 12/21/20 08:00 Intake & Output 12/20/20 12/21/20 12/21/20 18:59 06:59 18:59 Intake Total 236 68 10 Output Total 2735 700 325 Balance -2499 -632 -315 Weight 105.4 kg Intake: IV 36 18 10 0.9NS 10 Normal Saline Pressure 36 18 Bag @ 3mL/hr Intake, IV Titration 200 Amount Potassium Chloride 10 meq 200 In Water For Injection 1 100ml.bag @ 100 mls/hr IVPB Q1H [facility] Rx#: [id number] Oral 50 Output: Urine 2735 700 325 Other: Voiding Method Indwelling Catheter Indwelling Catheter # Bowel Movements 1 ABP, PAP, CO, CI - Last Documented Arterial Blood Pressure 110/78 - Exam GENERAL EXAM: 60-year-old white male, alert, oriented 3, currently on 15 L per her nasal cannula with a pulse ox of 90-94% HEAD: Normocephalic/atraumatic. EYES: Normal reaction of pupils, equal size. Conjunctiva pink, sclera white. NOSE: Clear with pink turbinates. THROAT: No erythema or exudates. NECK: No masses, no JVD, no thyroid enlargement, no adenopathy. CHEST: No chest wall deformity. Symmetrical expansion. LUNGS: Equal air entry with no crackles, wheeze, rhonchi or dullness. CVS: Regular rate and rhythm, normal S1 and S2, no gallops, no murmurs, no rubs ABDOMEN: Soft, nontender. No hepatosplenomegaly, normal bowel sounds, no guarding or rigidity. EXTREMITIES: No clubbing, no generalized edema edema, no cyanosis, 2+ pulses and upper and lower extremities. MUSCULOSKELETAL: Muscle strength and tone normal. SPINE: No scoliosis or deformity SKIN: No rashes CENTRAL NERVOUS SYSTEM: Alert and oriented 3, responding to questions appropriately tone is normal in all 4 extremities. - Labs CBC & Chem 7: 12/20/20 05:19 12/20/20 16:10 Labs: Abnormal Lab Results - Last 24 Hours (Table) 12/20/20 12/20/20 12/20/20 Range/Units 10:23 11:36 16:46 POC Glucose (mg/dL) 68 L 109 H 156 H (75-99) mg/dL 12/20/20 12/21/20 Range/Units 19:51 07:06 POC Glucose (mg/dL) 143 H 111 H (75-99) mg/dL Assessment and Plan Plan: #1. acute Covid 19 related pneumonia. Patient is not vaccinated. The patient has not received any outpatient treatments for Covid 19 infection. Diagnosis established during this current admission. Started on Bariticinib on 11/15/2020 in view of worsening hypoxic respiratory failure. Patient was outside the window for Remdesivir. Intubated on 12/07/2020, successfully weaned and extubated on 12/18/2020. Tolerating extubation quite well so far #2. acute hypoxic respiratory failure which has significantly progressed since admission, and patient is currently on Airvo at 60 L and FiO2 of 94% in addition to nonrebreather mask, and his pulse ox is 85%. In view of worsening chest x- ray findings and worsening hypoxia patient will be transferred to the intensive care unit today on 11/22/2020, intubated on 12/07/2020, extubated 12/18/2020 #3. Paroxysmal atrial fibrillation, with a rapid ventricular response, remains on amiodarone, he failed cardioversion. Currently in sinus mechanism, with controlled rate. #4. Acute hemorrhagic shock related to acute GI bleeding with possibility of upper GI bleed. Eliquis is on hold, patient received aggressive fluid resuscitation, 4 units of packed red blood cells and Kcentra. Eliquis remains on hold. Patient is in sinus mechanism, platelet count remains low but improving, currently #5. Acute thrombocytopenia, likely consumptive, no clear indication for DIC, the resident coagulation profile is within normal limits, platelet count is improving. #6. Possibility of a septic shock less likely, patient was empirically covered with Zosyn and vancomycin. Currently not on any antibiotics. All cultures are negative #7. Acute leukocytosis, resolved #8. Transaminitis related to sepsis/hypotension and shock, improved #9. Limited pneumomediastinum evident on the computed tomography scan of the abdomen #10. Acute kidney injury with today's creatinine up to 2.91, related to ATN, nephrology is on the case, improving #11. Obesity with a BMI of 38. #12. Increased inflammatory markers related to acute COVID-19 pneumonia #13. Increased d-dimer, related to viral pneumonia, was on Eliquis, currently just on prophylactic Lovenox for recent history of hemorrhagic shock related to acute GI bleeding Plan: Continue weaning FiO2 Encourage deep breathing and coughing, and incentive spirometry use Continue current dose Decadron We will continue Lovenox to 40 mg daily There has been no recurrence of bleeding Platelet count remains low but improving Today's labs have been noted We'll continue holding Eliquis, patient has remained in sinus mechanism Continue PPI therapy with Protonix 40 mg twice daily Physical therapy consultation Increase activity as tolerated I performed a history & physical examination of the patient and discussed their management with my nurse practitioner, Jovita Thomas. I reviewed the nurse practitioner's note and agree with the documented findings and plan of care. Lung sounds are positive for diminished breath sounds throughout the lung felix. The findings and the impression was discussed with the patient. I attest to the documentation by the nurse practitioner. Time with Patient: Less than 30
--- NOTE | 2020-12-21 10:23 | P.PN ---
Subjective Patient is seen in follow-up for acute kidney injury. Renal function stable as of yesterday. Extubated December 18. Nonoliguric. Denies chest pain or shortness of breath. Currently on 4 L nasal cannula. Resting in bed. No active complaints. Blood pressure stable. Vital signs are stable. HEENT: On nasal cannula. LUNGS: Breath sounds decreased. HEART: Regular rhythm. ABDOMEN: Soft, obese. EXTREMITITES: 1+ edema. Objective - Vital Signs Vital signs: Vital Signs Temp 98.8 F 12/21/20 08:00 Pulse 88 12/21/20 10:00 Resp 25 H 12/21/20 10:00 BP 124/65 12/21/20 10:00 Pulse Ox 93 L 12/21/20 10:00 Intake & Output 12/20/20 12/21/20 12/21/20 18:59 06:59 18:59 Intake Total 236 68 30 Output Total 2735 700 475 Balance -2499 -632 -445 Weight 105.4 kg Intake: IV 36 18 30 0.9NS 30 Normal Saline Pressure 36 18 Bag @ 3mL/hr Intake, IV Titration 200 Amount Potassium Chloride 10 meq 200 In Water For Injection 1 100ml.bag @ 100 mls/hr IVPB Q1H [facility] Rx#: [id number] Oral 50 Output: Urine 2735 700 475 Other: Voiding Method Indwelling Catheter Indwelling Catheter # Bowel Movements 1 ABP, PAP, CO, CI - Last Documented Arterial Blood Pressure 110/78 - Labs CBC & Chem 7: 12/20/20 05:19 12/20/20 16:10 Labs: Abnormal Lab Results - Last 24 Hours (Table) 12/20/20 12/20/20 12/20/20 Range/Units 10:23 11:36 16:46 POC Glucose (mg/dL) 68 L 109 H 156 H (75-99) mg/dL 12/20/20 12/21/20 Range/Units 19:51 07:06 POC Glucose (mg/dL) 143 H 111 H (75-99) mg/dL Assessment and Plan Plan: Assessment: 1. Acute kidney injury secondary to ATN secondary to septic shock. Baseline creatinine near 1 and peaked at 2.9 on this admission - 1.31 yesterday. Nonoliguric. No hydronephrosis was noted. 2. Hyperkalemia secondary to acute kidney injury and metabolic acidosis. Improved with medical management. 3. Metabolic acidosis secondary to acute kidney injury. Resolved. 4. Septic shock secondary to COVID-19 infection. Off vasopressors. 5. Acute hypoxic respiratory failure. 6. Volume overload. Improving with diuresis. 7. A. fib with RVR on oral amiodarone. 8. Hypernatremia due to free water diuresis. Improved. 9. Metabolic alkalosis secondary to diuresis. S/p Diamox. 10. Hypokalemia from diuresis. Replaced. 11. Acute blood loss anemia. No active bleeding. Status post blood transfusion. Plan: Avoid nephrotoxins. Continue to monitor renal function and urine output. Labs pending from this morning. No changes from nephrology standpoint.
[2020-12-21 12:34] LABS: Glucose,Whole Blood 254 mg/dL (75-99)
[2020-12-21 12:36] LABS: Glucose,Whole Blood 241 mg/dL (75-99)
--- NOTE | 2020-12-21 12:43 | P.PN ---
Subjective Progress Note Date: 12/21/20 HISTORY OF PRESENT ILLNESS This is a pleasant 60-year-old gentleman patient of Dr. Ridge Christina. He doesn't see a physician often and does not note any medical diseases, except for obesity. He comes seen secondary to fever and chills, cough, starting December 06 first, along with muscle aches, lack of appetite and diarrhea. he was tested for call bid November 08, which required at week of reporting, subsequently was sent to emergency room secondary to worsening symptoms, including dyspnea on exertion, shortness of breath and worsening cough without hemoptysis. Fever, sh ortness of breath lingers, no treatment given to him prior to this admission. The is vaccinated, but the patient is not. He does not believe in vaccines at that time. He comes in the emergency room, with hypoxemia, with very minimal conversational dyspnea, chest x-ray, shows pulmonary infiltrate consistent with Covid pneumonia, oxygen currently is at 6 L nasal cannula, d-dimer was 0.6, LFTs are minimally elevated, 64 AST, lactic acid 2.0 sodium 132, creatinine of 0.9, glucose of 122, LDH of 888, CRP of 5.7. Urine protein noted, without hematuria or proteinuria. Covid was again retested 11/14, PCR is positive. Consult to Dr. Eduardo and pulmonary,, [facility] but continued to have hypoxia with drop in his oxygenation level despite use of airflow and nonrebreather. He completed a course of Baricitnib and was treated also with dexamethasone, Lovenox and supplements. Patient was eventually transitioned to ICU on 11/25 with BiPAP and patient at times seemed to be stabilized and improving but then he developed a GI bleed required blood transfusion and vasopressor support. He was subsequently intubated on 12/07. Other conditions complicating his stay include thrombocytopenia, atrial fibrillation with RVR converted to sinus rhythm and kidney injury. 12/18: Patient remains in intensive care unit and was successfully extubated thi s morning and is currently on high flow nasal cannula at 10 L with pulse ox is 93%. He remains an sinus rhythm, afebrile, blood pressure 137/62. One unit of packed RBCs ordered for hemoglobin of 6.8. BUN 64 and creatinine 1.44. Blood sugars are running 101-138. Repeat inflammatory markers: LDH 1857, C-reactive protein 4. Chest x-ray reveals mild cardiomegaly with left greater than right bilateral multifocal opacities consistent with Covid. Nephrology is taking the patient off Diamox. 12/19: He remains in the intensive care unit for breathing status seems to be stable he is currently on O2 at 12 L nasal cannula with pulse ox in the low 90s. Blood pressure 167/74, respiratory rate 27, heart rate in the 80s and 90s, afebrile. monitor worker is sinus rhythm. monitor worker is He is feeling tired. PICC line placed this morning for IV access and triple lumen catheter discontinued. PT OT to work with patient most likely will require subacute rehab. 12/20: Patient remains in the intensive care unit. His been ordered for 40 of Lasix and had 1.7 L of urine out. Patient has been seen by [facility] for stage II pressure ulcer left and right buttocks with augmentations for triad and sacral dressing. Also patient has a nonhealing ulcer to the left upper extremity with recommendations for triad as well. Patient has been hemodynamically stable and off vasopressors, no IV fluids. He is currently on 12 L high flow nasal cannula with pulse ox 95%, he's been afebrile, heart rate in the 90s, respiratory rate 27-31, blood pressure 146/72. WBC 3.6, hemoglobin 9.3, platelet count 73. BUN 42 creatinine 1.31. REVIEW OF SYSTEMS Constitutional: No fever, no chills, no night sweats. No weight change. Reports weakness, reports fatigue reports lethargy. Reports daytime sleepiness. EENT: No headache. No blurred vision or double vision, no loss of vision. No loss of Hearing, no ringing in the ears, no dizziness. No nasal drainage or congestion. No epistaxis. No sore throat. Lungs Reported shortness of breath, reported cough, no sputum production. No wheezing. Cardiovascular: No chest pain, no lower extremity edema. No palpitations. No paroxysmal nocturnal dyspnea. No orthopnea. No lightheadedness or dizziness. No syncopal episodes. Abdominal: No abdominal pain. No nausea, vomiting. None diarrhea. No constipation. No bloody or tarry stools. Reports loss of appetite. Genitourinary: No dysuria, increased frequency, urgency. No urinary retention- Mackenzie in place. Musculoskeletal: No myalgias. Generalized muscle weakness, no gait dysfunction, no frequent falls. No back pain. No neck pain. Integumentary: No wounds, no lesions. No rash or pruritus. No unusual bruising. Neurologic: No aphasia. No facial droop. No change in mentation. No head injury. No headache. No paresthesia. Psychiatric: No depression. No anxiety. No mood swings. Insomnia. Endocrine: Noted mildly elevated blood sugars. PHYSICAL EXAMINATION Gen: This is a 60-year-old obese male in the ICU , currently on nasal cannula O2 12L. Patient's at bedside. HEENT: Head is atraumatic, normocephalic. Pupils equal, round. Sclerae is anicteric, conjunctiva edema. NECK: Supple. No JVD. No lymphadenopathy. No thyromegaly. LUNGS: Diminished bilaterally. No wheezing. HEART: Regular rate and rhythm. No murmur. monitor worker is a sinus rhythm. ABDOMEN: obese. Soft. Bowel sounds are present. No masses. No tenderness. Mackenzie catheter draining clear frederikc urine with good urine output. EXTREMITIES: 1+ bilateral pedal edema. No calf tenderness. NEUROLOGICAL: Patient is awake alert and oriented 3, severe weakness. ASSESSMENT AND PLAN 1. Acute respiratory failure: Secondary to COVID-19 requiring intubation and mechanical ventilation, with possible secondary bacterial pneumonia. Patient has been successfully extubated. Continue albuterol inhaler 2 puffs as needed, dexamethasone 4 mg IV daily, Lovenox 30 mg subcu daily, vitamin supplements. Consult with pulmonary medicine appreciated. 2. Sepsis (POA) secondary to COVID-19 pneumonia, with acute hypoxemic respiratory failure, diagnosis was of 11/08/2020. 3. Moderate protein calorie malnutrition secondary to poor oral intake. Continue protein supplements. 4. New-onset atrial fibrillation with RVR, paroxysmal atrial fibrillation. Currently in sinus rhythm. Continue oral amiodarone 200 mg twice daily, Eliquis placed on hold due to GI bleed. Echocardiogram as above. 5. Thrombocytopenia secondary to sepsis, improving. No anticoagulation due to thrombocytopenia, GI bleed. Transfusion of 2 unit of platelets. 6. Acute GI bleed with acute blood loss anemia. Eliquis placed on hold, total of 6 units packed RBCs, IV fluid boluses, consult with Dr. Ojeda appreciated. EGD and colonoscopy once patient is stabilized, Dr. Lester is following. 7. Acute hypovolemic shock or septic shock requiring vasopressors, massive IV fluid resuscitation. Patient is off vasopressors and blood pressure has been stable. 8. Acute kidney injury with ATN secondary to septic shock. Consult with nephrology appreciated. Patient has had good urine output. 9. Metabolic acidosis secondary to acute kidney injury. 10. Severe hyperkalemia secondary to acute kidney injury. Followed by n ephrology. 11. Shock liver secondary to hypotension. Monitor liver function test. 12. DVT prophylaxis. 13. GI prophylaxis. Protonic. 14. BPH. Mackenzie catheter 15. Proteinuria, unknown cause. 16. Dymetabolic syndrome, monitor for hyperglycemia, A1c 6.4. NovoLog scale every achs, added Levemir 12 units twice daily. 17. Back pain. CODE Status: Full code Prognosis: guarded. Impression and plan of care have been directed as dictated by the signing physician. Sanam Valentine nurse practitioner acting as scribe for signing physician. Objective - Vital Signs Vital signs: Vital Signs Temp 98.8 F 12/21/20 08:00 Pulse 88 12/21/20 10:00 Resp 25 H 12/21/20 10:00 BP 124/65 12/21/20 10:00 Pulse Ox 93 L 12/21/20 10:00 Intake & Output 12/20/20 12/21/20 12/21/20 18:59 06:59 18:59 Intake Total 236 68 30 Output Total 2735 700 475 Balance -2499 -632 -445 Weight 105.4 kg Intake: IV 36 18 30 0.9NS 30 Normal Saline Pressure 36 18 Bag @ 3mL/hr Intake, IV Titration 200 Amount Potassium Chloride 10 meq 200 In Water For Injection 1 100ml.bag @ 100 mls/hr IVPB Q1H [facility] Rx#: [id number] Oral 50 Output: Urine 2735 700 475 Other: Voiding Method Indwelling Catheter Indwelling Catheter Indwelling Catheter # Bowel Movements 1 ABP, PAP, CO, CI - Last Documented Arterial Blood Pressure 110/78 - Labs CBC & Chem 7: 12/20/20 05:19 12/20/20 16:10 Labs: Abnormal Lab Results - Last 24 Hours (Table) 12/20/20 12/20/20 12/20/20 Range/Units 11:36 16:46 19:51 D-Dimer (<0.60) mg/L FEU POC Glucose (mg/dL) 109 H 156 H 143 H (75-99) mg/dL 12/21/20 12/21/20 Range/Units 07:06 10:11 D-Dimer 4.31 H (<0.60) mg/L FEU POC Glucose (mg/dL) 111 H (75-99) mg/dL
--- NOTE | 2020-12-21 12:45 | P.PN ---
Subjective Progress Note Date: 12/20/20 HISTORY OF PRESENT ILLNESS This is a pleasant 60-year-old gentleman patient of Dr. Ridge Christina. He doesn't see a physician often and does not note any medical diseases, except for obesity. He comes seen secondary to fever and chills, cough, starting December 06 first, along with muscle aches, lack of appetite and diarrhea. he was tested for call bid November 08, which required at week of reporting, subsequently was sent to emergency room secondary to worsening symptoms, including dyspnea on exertion, shortness of breath and worsening cough without hemoptysis. Fever, sh ortness of breath lingers, no treatment given to him prior to this admission. The is vaccinated, but the patient is not. He does not believe in vaccines at that time. He comes in the emergency room, with hypoxemia, with very minimal conversational dyspnea, chest x-ray, shows pulmonary infiltrate consistent with Covid pneumonia, oxygen currently is at 6 L nasal cannula, d-dimer was 0.6, LFTs are minimally elevated, 64 AST, lactic acid 2.0 sodium 132, creatinine of 0.9, glucose of 122, LDH of 888, CRP of 5.7. Urine protein noted, without hematuria or proteinuria. Covid was again retested 11/14, PCR is positive. Consult to Dr. Eduardo and pulmonary,, [facility] continued to have hypoxia with drop in his oxygenation level despite use of airflow and nonrebreather. He completed a course of Baricitnib and was treated also with dexamethasone, Lovenox and supplements. Patient was eventually transitioned to ICU on 11/25 with BiPAP and patient at times seemed to be stabilized and improving but then he developed a GI bleed required blood transfusion and vasopressor support. He was subsequently intubated on 12/07. Other conditions complicating his stay include thrombocytopenia, atrial fibrillation with RVR converted to sinus rhythm and kidney injury. 12/18: Patient remains in intensive care unit and was successfully extubated thi s morning and is currently on high flow nasal cannula at 10 L with pulse ox is 93%. He remains an sinus rhythm, afebrile, blood pressure 137/62. One unit of packed RBCs ordered for hemoglobin of 6.8. BUN 64 and creatinine 1.44. Blood sugars are running 101-138. Repeat inflammatory markers: LDH 1857, C-reactive protein 4. Chest x-ray reveals mild cardiomegaly with left greater than right bilateral multifocal opacities consistent with Covid. Nephrology is taking the patient off Diamox. 12/19: She remains in the intensive care unit for breathing status seems to be stable he is currently on O2 at 12 L nasal cannula with pulse ox in the low 90s. Blood pressure 167/74, respiratory rate 27, heart rate in the 80s and 90s, afebrile. rug cutter is sinus rhythm. rug cutter is He is feeling tired. PICC line placed this morning for IV access and triple lumen catheter discontinued. PT OT to work with patient most likely will require subacute rehab. 12/20: Patient remains in the intensive care unit. His been ordered for 40 of Lasix and had 1.7 L of urine out. Patient has been seen by [facility] for stage II pressure ulcer left and right buttocks with augmentations for triad and sacral dressing. Also patient has a nonhealing ulcer to the left upper extremity with recommendations for triad as well. Patient has been hemodynamically stable and off vasopressors, no IV fluids. He is currently on 12 L high flow nasal cannula with pulse ox 95%, he's been afebrile, heart rate in the 90s, respiratory rate 27-31, blood pressure 146/72. WBC 3.6, hemoglobin 9.3, platelet count 73. BUN 42 creatinine 1.31. REVIEW OF SYSTEMS Constitutional: No fever, no chills, no night sweats. No weight change. Reports weakness, reports fatigue reports lethargy. Reports daytime sleepiness. EENT: No headache. No blurred vision or double vision, no loss of vision. No loss of Hearing, no ringing in the ears, no dizziness. No nasal drainage or congestion. No epistaxis. No sore throat. Lungs Reported shortness of breath, reported cough, no sputum production. No wheezing. Cardiovascular: No chest pain, no lower extremity edema. No palpitations. No paroxysmal nocturnal dyspnea. No orthopnea. No lightheadedness or dizziness. No syncopal episodes. Abdominal: No abdominal pain. No nausea, vomiting. None diarrhea. No constipation. No bloody or tarry stools. Reports loss of appetite. Genitourinary: No dysuria, increased frequency, urgency. No urinary retention- Mackenzie in place. Musculoskeletal: No myalgias. Generalized muscle weakness, no gait dysfunction, no frequent falls. No back pain. No neck pain. Integumentary: No wounds, no lesions. No rash or pruritus. No unusual bruising. Neurologic: No aphasia. No facial droop. No change in mentation. No head injury. No headache. No paresthesia. Psychiatric: No depression. No anxiety. No mood swings. Insomnia. Endocrine: Noted mildly elevated blood sugars. PHYSICAL EXAMINATION Gen: This is a 60-year-old obese male in the ICU , currently on nasal cannula O2 12L. Patient's at bedside. HEENT: Head is atraumatic, normocephalic. Pupils equal, round. Sclerae is anicteric, conjunctiva edema. NECK: Supple. No JVD. No lymphadenopathy. No thyromegaly. LUNGS: Diminished bilaterally. No wheezing. HEART: Regular rate and rhythm. No murmur. rug cutter is a sinus rhythm. ABDOMEN: obese. Soft. Bowel sounds are present. No masses. No tenderness. Mackenzie catheter draining clear frederick urine with good urine output. EXTREMITIES: 1+ bilateral pedal edema. No calf tenderness. NEUROLOGICAL: Patient is awake alert and oriented 3, severe weakness. ASSESSMENT AND PLAN 1. Acute respiratory failure: Secondary to COVID-19 requiring intubation and mechanical ventilation, with possible secondary bacterial pneumonia. Patient has been successfully extubated. Continue albuterol inhaler 2 puffs as needed, dexamethasone 4 mg IV daily, Lovenox 30 mg subcu daily, vitamin supplements. Consult with pulmonary medicine appreciated. 2. Sepsis (POA) secondary to COVID-19 pneumonia, with acute hypoxemic respiratory failure, diagnosis was of 11/08/2020. 3. Moderate protein calorie malnutrition secondary to poor oral intake. Continue protein supplements. 4. New-onset atrial fibrillation with RVR, paroxysmal atrial fibrillation. Currently in sinus rhythm. Continue oral amiodarone 200 mg twice daily, Eliquis placed on hold due to GI bleed. Echocardiogram as above. 5. Thrombocytopenia secondary to sepsis, improving. No anticoagulation due to thrombocytopenia, GI bleed. Transfusion of 2 unit of platelets. 6. Acute GI bleed with acute blood loss anemia. Eliquis placed on hold, total of 6 units packed RBCs, IV fluid boluses, consult with Dr. Ojeda appreciated. EGD and colonoscopy once patient is stabilized, Dr. Lester is following. 7. Acute hypovolemic shock or septic shock requiring vasopressors, massive IV fluid resuscitation. Patient is off vasopressors and blood pressure has been stable. 8. Acute kidney injury with ATN secondary to septic shock. Consult with nephrology appreciated. Patient has had good urine output. 9. Metabolic acidosis secondary to acute kidney injury. 10. Severe hyperkalemia secondary to acute kidney injury. Followed by nephrology. 11. Shock liver secondary to hypotension. Monitor liver function test. 12. DVT prophylaxis. 13. GI prophylaxis. Protonic. 14. BPH. Mackenzie catheter 15. Proteinuria, unknown cause. 16. Dymetabolic syndrome, monitor for hyperglycemia, A1c 6.4. NovoLog scale every 4 hours, added Levemir 12 units twice daily. 17. Back pain. CODE Status: Full code Prognosis: guarded. Impression and plan of care have been directed as dictated by the signing physician. Sanam Valentine nurse practitioner acting as scribe for signing physician. Objective - Vital Signs Vital signs: Vital Signs Temp 99.0 F 12/20/20 08:00 Pulse 93 12/20/20 11:00 Resp 18 12/20/20 11:00 BP 146/72 12/20/20 11:00 Pulse Ox 91 L 12/20/20 11:00 Intake & Output 12/19/20 12/20/20 12/20/20 18:59 06:59 18:59 Intake Total 386 36 215 Output Total 1940 2560 585 Balance -6262 -1261 -511 Weight 107.8 kg 107.8 kg Intake: IV 186 36 15 Dextrose 5% in Water 1, 150 000 ml @ 75 mls/hr IV . [id number] [facility] Rx#:[id number] Normal Saline Pressure 36 36 15 Bag @ 3mL/hr Intake, IV Titration 200 Amount Potassium Chloride 10 meq 200 In Water For Injection 1 100ml.bag @ 100 mls/hr IVPB Q1H [facility] Rx#: [id number] Oral 200 Output: Urine 1940 2560 585 Other: Voiding Method Indwelling Catheter Indwelling Catheter # Bowel Movements 1 ABP, PAP, CO, CI - Last Documented Arterial Blood Pressure 125/62 - Labs CBC & Chem 7: 12/20/20 05:19 12/20/20 16:10 Labs: Abnormal Lab Results - Last 24 Hours (Table) 12/19/20 12/19/20 12/19/20 Range/Units 12:31 18:47 20:19 WBC (3.8-10.6) k/uL RBC (4.30-5.90) m/uL Hgb (13.0-17.5) gm/dL Hct (39.0-53.0) % RDW (11.5-15.5) % Plt Count (150-450) k/uL Lymphocytes # (1.0-4.8) k/uL Chloride (98-107) mmol/L BUN (9-20) mg/dL Creatinine (0.66-1.25) mg/dL POC Glucose (mg/dL) 125 H 128 H 144 H (75-99) mg/dL Calcium (8.4-10.2) mg/dL Lactate Dehydrogenase (313-618) U/L C-Reactive Protein (<1.0) mg/dL 12/20/20 12/20/20 12/20/20 Range/Units 05:19 05:19 10:23 WBC 3.6 L (3.8-10.6) k/uL RBC 3.01 L (4.30-5.90) m/uL Hgb 9.3 L (13.0-17.5) gm/dL Hct 27.6 L (39.0-53.0) % RDW 17.5 H (11.5-15.5) % Plt Count 73 L D (150-450) k/uL Lymphocytes # 0.7 L (1.0-4.8) k/uL Chloride 111 H (98-107) mmol/L BUN 42 H (9-20) mg/dL Creatinine 1.31 H (0.66-1.25) mg/dL POC Glucose (mg/dL) 68 L (75-99) mg/dL Calcium 7.9 L (8.4-10.2) mg/dL Lactate Dehydrogenase 1890 H (313-618) U/L C-Reactive Protein 16.5 H (<1.0) mg/dL 12/20/20 Range/Units 11:36 WBC (3.8-10.6) k/uL RBC (4.30-5.90) m/uL Hgb (13.0-17.5) gm/dL Hct (39.0-53.0) % RDW (11.5-15.5) % Plt Count (150-450) k/uL Lymphocytes # (1.0-4.8) k/uL Chloride (98-107) mmol/L BUN (9-20) mg/dL Creatinine (0.66-1.25) mg/dL POC Glucose (mg/dL) 109 H (75-99) mg/dL Calcium (8.4-10.2) mg/dL Lactate Dehydrogenase (313-618) U/L C-Reactive Protein (<1.0) mg/dL
--- NOTE | 2020-12-21 12:53 | P.PN ---
Subjective Progress Note Date: 12/21/20 HISTORY OF PRESENT ILLNESS This is a pleasant 60-year-old gentleman patient of Dr. Ridge Christina. He doesn't see a physician often and does not note any medical diseases, except for obesity. He comes seen secondary to fever and chills, cough, starting December 06 first, along with muscle aches, lack of appetite and diarrhea. he was tested for call bid November 08, which required at week of reporting, subsequently was sent to emergency room secondary to worsening symptoms, including dyspnea on exertion, shortness of breath and worsening cough without hemoptysis. Fever, sh ortness of breath lingers, no treatment given to him prior to this admission. The is vaccinated, but the patient is not. He does not believe in vaccines at that time. He comes in the emergency room, with hypoxemia, with very minimal conversational dyspnea, chest x-ray, shows pulmonary infiltrate consistent with Covid pneumonia, oxygen currently is at 6 L nasal cannula, d-dimer was 0.6, LFTs are minimally elevated, 64 AST, lactic acid 2.0 sodium 132, creatinine of 0.9, glucose of 122, LDH of 888, CRP of 5.7. Urine protein noted, without hematuria or proteinuria. Covid was again retested 11/14, PCR is positive. Consult to Dr. Eduardo and pulmonary,, [facility] continued to have hypoxia with drop in his oxygenation level despite use of airflow and nonrebreather. He completed a course of Baricitnib and was treated also with dexamethasone, Lovenox and supplements. Patient was eventually transitioned to ICU on 11/25 with BiPAP and patient at times seemed to be stabilized and improving but then he developed a GI bleed required blood transfusion and vasopressor support. He was subsequently intubated on 12/07. Other conditions complicating his stay include thrombocytopenia, atrial fibrillation with RVR converted to sinus rhythm and kidney injury. 12/18: Patient remains in intensive care unit and was successfully extubated thi s morning and is currently on high flow nasal cannula at 10 L with pulse ox is 93%. He remains an sinus rhythm, afebrile, blood pressure 137/62. One unit of packed RBCs ordered for hemoglobin of 6.8. BUN 64 and creatinine 1.44. Blood sugars are running 101-138. Repeat inflammatory markers: LDH 1857, C-reactive protein 4. Chest x-ray reveals mild cardiomegaly with left greater than right bilateral multifocal opacities consistent with Covid. Nephrology is taking the patient off Diamox. 12/19: She remains in the intensive care unit for breathing status seems to be stable he is currently on O2 at 12 L nasal cannula with pulse ox in the low 90s. Blood pressure 167/74, respiratory rate 27, heart rate in the 80s and 90s, afebrile. channel marketing manager is sinus rhythm. channel marketing manager is He is feeling tired. PICC line placed this morning for IV access and triple lumen catheter discontinued. PT OT to work with patient most likely will require subacute rehab. 12/20: Patient remains in the intensive care unit. His been ordered for 40 of Lasix and had 1.7 L of urine out. Patient has been seen by [facility] for stage II pressure ulcer left and right buttocks with augmentations for triad and sacral dressing. Also patient has a nonhealing ulcer to the left upper extremity with recommendations for triad as well. Patient has been hemodynamically stable and off vasopressors, no IV fluids. He is currently on 12 L high flow nasal cannula with pulse ox 95%, he's been afebrile, heart rate in the 90s, respiratory rate 27-31, blood pressure 146/72. WBC 3.6, hemoglobin 9.3, platelet count 73. BUN 42 creatinine 1.31. 12/21: Patient is seen today in the emergency center and recliner with legs elevated. He continues to have significant weakness, is trying to eat more food. He has been afebrile, heart rate in the 80s, blood pressure 124/65, pulse ox 93% on 4 L nasal cannula. He had 2 bowel movements yesterday. D-dimer is 4.31. Blood sugars are running between 68 and 254. He is currently on chopped diet with nectar thick liquids and aspiration precautions. Repeat lab work including inflammatory markers ordered for tomorrow. REVIEW OF SYSTEMS Constitutional: No fever, no chills, no night sweats. No weight change. Reports weakness, reports fatigue reports lethargy. Reports daytime sleepiness. EENT: No headache. No blurred vision or double vision, no loss of vision. No loss of Hearing, no ringing in the ears, no dizziness. No nasal drainage or congestion. No epistaxis. No sore throat. Lungs Reported shortness of breath, reported cough, no sputum production. No wheezing. Cardiovascular: No chest pain, no lower extremity edema. No palpitations. No paroxysmal nocturnal dyspnea. No orthopnea. No lightheadedness or dizziness. No syncopal episodes. Abdominal: No abdominal pain. No nausea, vomiting. None diarrhea. No constipation. No bloody or tarry stools. Reports loss of appetite. Genitourinary: No dysuria, increased frequency, urgency. No urinary retention- Mackenzie in place. Musculoskeletal: No myalgias. Generalized muscle weakness, no gait dysfunction, no frequent falls. No back pain. No neck pain. Integumentary: No wounds, no lesions. No rash or pruritus. No unusual bruising. Neurologic: No aphasia. No facial droop. No change in mentation. No head injury. No headache. No paresthesia. Psychiatric: No depression. No anxiety. Endocrine: Noted mildly elevated blood sugars. PHYSICAL EXAMINATION Gen: This is a 60-year-old obese male in the ICU , currently on nasal cannula O2. HEENT: Head is atraumatic, normocephalic. Pupils equal, round. Sclerae is anicteric, conjunctiva edema. NECK: Supple. No JVD. No lymphadenopathy. No thyromegaly. LUNGS: Diminished bilaterally. No wheezing. HEART: Regular rate and rhythm. No murmur. channel marketing manager is a sinus rhythm. ABDOMEN: obese. Soft. Bowel sounds are present. No masses. No tenderness. Mackenzie catheter draining clear frederick urine with good urine output. EXTREMITIES: 1+ bilateral pedal edema. No calf tenderness. NEUROLOGICAL: Patient is awake alert and oriented 3, severe weakness. ASSESSMENT AND PLAN 1. Acute respiratory failure: Secondary to COVID-19 requiring intubation and mechanical ventilation, with possible secondary bacterial pneumonia. Patient has been successfully extubated. Continue albuterol inhaler 2 puffs as needed, dexamethasone 4 mg IV daily, Lovenox 30 mg subcu daily, vitamin supplements. Consult with pulmonary medicine appreciated. 2. Sepsis (POA) secondary to COVID-19 pneumonia, with acute hypoxemic respiratory failure, diagnosis was of 11/08/2020. 3. Moderate protein calorie malnutrition secondary to poor oral intake. Continue protein supplements. 4. New-onset atrial fibrillation with RVR, paroxysmal atrial fibrillation. Currently in sinus rhythm. Continue oral amiodarone 200 mg twice daily, Eliquis placed on hold due to GI bleed. Echocardiogram as above. 5. Thrombocytopenia secondary to sepsis, improving. No anticoagulation due to thrombocytopenia, GI bleed. Transfusion of 2 unit of platelets. 6. Acute GI bleed with acute blood loss anemia. Eliquis placed on hold, total of 6 units packed RBCs, IV fluid boluses, consult with Dr. Ojeda appreciated. EGD and colonoscopy once patient is stabilized, Dr. Lester is following. 7. Acute hypovolemic shock or septic shock requiring vasopressors, massive IV fluid resuscitation. Patient is off vasopressors and blood pressure has been stable. 8. Acute kidney injury with ATN secondary to septic shock. Consult with nephrology appreciated. Patient has had good urine output. 9. Metabolic acidosis secondary to acute kidney injury. 10. Severe hyperkalemia secondary to acute kidney injury. Followed by nephrology. 11. Shock liver secondary to hypotension. Monitor liver function test. 12. DVT prophylaxis. 13. GI prophylaxis. Protonic. 14. BPH. Mackenzie catheter 15. Proteinuria, unknown cause. 16. Dymetabolic syndrome, monitor for hyperglycemia, A1c 6.4. NovoLog scale every 4 hours, added Levemir 12 units twice daily. 17. Back pain. CODE Status: Full code Prognosis: guarded. Impression and plan of care have been directed as dictated by the signing physician. Sanam Valentine nurse practitioner acting as scribe for signing physician. Objective - Vital Signs Vital signs: Vital Signs Temp 98.8 F 12/21/20 08:00 Pulse 94 12/21/20 12:00 Resp 27 H 12/21/20 12:00 BP 126/62 12/21/20 12:00 Pulse Ox 97 12/21/20 12:00 Intake & Output 12/20/20 12/21/20 12/21/20 18:59 06:59 18:59 Intake Total 236 68 30 Output Total 8201 362 475 Balance -2499 -632 -445 Weight 105.4 kg 105.4 kg Intake: IV 36 18 30 0.9NS 30 Normal Saline Pressure 36 18 Bag @ 3mL/hr Intake, IV Titration 200 Amount Potassium Chloride 10 meq 200 In Water For Injection 1 100ml.bag @ 100 mls/hr IVPB Q1H [facility] Rx#: [id number] Oral 50 Output: Urine 2735 700 475 Other: Voiding Method Indwelling Catheter Indwelling Catheter Indwelling Catheter # Bowel Movements 1 ABP, PAP, CO, CI - Last Documented Arterial Blood Pressure 110/78 - Labs CBC & Chem 7: 12/20/20 05:19 12/20/20 16:10 Labs: Abnormal Lab Results - Last 24 Hours (Table) 12/20/20 12/20/20 12/21/20 Range/Units 16:46 19:51 07:06 D-Dimer (<0.60) mg/L FEU POC Glucose (mg/dL) 156 H 143 H 111 H (75-99) mg/dL 12/21/20 12/21/20 12/21/20 Range/Units 10:11 12:32 12:34 D-Dimer 4.31 H (<0.60) mg/L FEU POC Glucose (mg/dL) 254 H 241 H (75-99) mg/dL
[2020-12-21 13:40] LABS: Anisocytosis Slight; Basophils % (A) 0 %; Eosinophils # (A) 0.1 k/uL (0-0.7); Eosinophils % (A) 3 %; HGB 8.8 gm/dL (13.0-17.5); Hypochromasia Slight; Lymphocytes # (A) 0.4 k/uL (1.0-4.8); Lymphocytes % (A) 17 %; MCH 31.2 pg (25.0-35.0); MCHC 32.6 g/dL (31.0-37.0); Macrocytosis Slight; Mean Platelet Volume 10.4; Monocytes # (A) 0.1 k/uL (0-1.0); Monocytes % (A) 5 %; Neutrophils # (A) 1.9 k/uL (1.3-7.7); Neutrophils % (A) 73 %; Platelet Count 103 k/uL (150-450); Poikilocytosis Slight; RBC 2.81 m/uL (4.30-5.90); RDW 16.7 % (11.5-15.5); WBC 2.6 k/uL (3.8-10.6)
[2020-12-21 13:47] LABS: Calcium 8.3 mg/dL (8.4-10.2); Potassium 3.8 mmol/L (3.5-5.1)
[2020-12-21] MEDS: POTASSIUM CHLORIDE 10 MEQ in WATER FOR INJECTION 1 100ML.BAG IVPB SCH ×2 (14:34→16:04)
--- NOTE | 2020-12-21 16:09 | P.PN ---
Subjective Progress Note Date: 12/21/20 CHIEF COMPLAINT: COVID-19 pneumonia HISTORY OF PRESENT ILLNESS: Surgical service following due to GI bleed. Patient is in the ICU. He's had no active signs of bleeding. He denies any abdominal pain. Bowel movements are brown in color. Patient has had no further fevers. WBC 2.6 hemoglobin dropped from 9.3-8.8 platelets 103 patient's Eliquis currently on hold. He is on Lovenox for DVT prophylaxis. PHYSICAL EXAM: VITAL SIGNS: Reviewed. GENERAL: Well-developed in no acute distress. HEENT: No sclera icterus. Extraocular movements grossly intact. Moist buccal mucosa. Head is atraumatic, normocephalic. ABDOMEN: Soft. Nondistended. Nontender. NEUROLOGIC: Patient is awake ASSESSMENT: 1. Acute GI bleed 2. Acute blood loss anemia requiring blood transfusion during this admission PLAN: -Plan for endoscopy when medically stable -Continue ICU management -Continue supportive care -Continue to monitor hemoglobin -Continue to monitor for any signs or symptoms of bleeding -Continue PPI Physician Rn Orthopedic note has been reviewed by physician. Signing provider agrees with the documented findings, assessment, and plan of care. Objective - Vital Signs Vital signs: Vital Signs Temp 97.7 F 12/21/20 16:00 Pulse 84 12/21/20 16:00 Resp 28 H 12/21/20 16:00 BP 142/77 12/21/20 16:00 Pulse Ox 96 12/21/20 16:00 Intake & Output 12/20/20 12/21/20 12/21/20 18:59 06:59 18:59 Intake Total 236 68 430 Output Total 2735 700 850 Balance -3429 -632 -420 Weight 105.4 kg 105.4 kg Intake: IV 36 18 30 0.9NS 30 Normal Saline Pressure 36 18 Bag @ 3mL/hr Intake, IV Titration 200 Amount Potassium Chloride 10 meq 200 In Water For Injection 1 100ml.bag @ 100 mls/hr IVPB Q1H [facility] Rx#: [id number] Oral 50 400 Output: Urine 2735 700 850 Other: Voiding Method Indwelling Catheter Indwelling Catheter Indwelling Catheter # Bowel Movements 1 ABP, PAP, CO, CI - Last Documented Arterial Blood Pressure 110/78 - Labs CBC & Chem 7: 12/21/20 10:11 12/21/20 10:11 Labs: Abnormal Lab Results - Last 24 Hours (Table) 12/20/20 12/20/20 12/21/20 Range/Units 16:46 19:51 07:06 WBC (3.8-10.6) k/uL RBC (4.30-5.90) m/uL Hgb (13.0-17.5) gm/dL Hct (39.0-53.0) % RDW (11.5-15.5) % Plt Count (150-450) k/uL Lymphocytes # (1.0-4.8) k/uL D-Dimer (<0.60) mg/L FEU Chloride (98-107) mmol/L BUN (9-20) mg/dL Glucose (74-99) mg/dL POC Glucose (mg/dL) 156 H 143 H 111 H (75-99) mg/dL Calcium (8.4-10.2) mg/dL 12/21/20 12/21/20 12/21/20 Range/Units 10:11 10:11 10:11 WBC 2.6 L (3.8-10.6) k/uL RBC 2.81 L (4.30-5.90) m/uL Hgb 8.8 L (13.0-17.5) gm/dL Hct 27.0 L (39.0-53.0) % RDW 16.7 H (11.5-15.5) % Plt Count 103 L (150-450) k/uL Lymphocytes # 0.4 L (1.0-4.8) k/uL D-Dimer 4.31 H (<0.60) mg/L FEU Chloride 110 H (98-107) mmol/L BUN 34 H (9-20) mg/dL Glucose 128 H (74-99) mg/dL POC Glucose (mg/dL) (75-99) mg/dL Calcium 8.3 L (8.4-10.2) mg/dL 12/21/20 12/21/20 Range/Units 12:32 12:34 WBC (3.8-10.6) k/uL RBC (4.30-5.90) m/uL Hgb (13.0-17.5) gm/dL Hct (39.0-53.0) % RDW (11.5-15.5) % Plt Count (150-450) k/uL Lymphocytes # (1.0-4.8) k/uL D-Dimer (<0.60) mg/L FEU Chloride (98-107) mmol/L BUN (9-20) mg/dL Glucose (74-99) mg/dL POC Glucose (mg/dL) 254 H 241 H (75-99) mg/dL Calcium (8.4-10.2) mg/dL
[2020-12-21 16:37] LABS: Glucose,Whole Blood 156 mg/dL (75-99)
[2020-12-21 20:18] LABS: Glucose,Whole Blood 159 mg/dL (75-99)
[2020-12-22 06:17] LABS: Glucose,Whole Blood 94 mg/dL (75-99)
[2020-12-22] MEDS: INSULIN DETEMIR (LEVEMIR) 100 UNIT/ML SYR SQ SCH (06:19)
[2020-12-22] MEDS: INSULIN ASPART (NovoLOG) 100 UNIT/ML VIAL SQ SCH ×4 (06:19→20:11)
[2020-12-22] MEDS: ASCORBIC ACID 500 MG TAB PO SCH ×2 (07:49→20:51)
[2020-12-22] MEDS: ZINC SULFATE 220 MG CAP PO SCH (07:49)
[2020-12-22] MEDS: CHOLECALCIFEROL 25 MCG (1000 IU) TABLET PO SCH (07:49)
[2020-12-22] MEDS: DEXAMETHASONE SOD PHOSPHATE 4 MG/ML 1 ML VIAL IV SCH (07:49)
[2020-12-22] MEDS: AMIODARONE 200 MG TAB PO SCH ×2 (07:49→20:51)
[2020-12-22] MEDS: PANTOPRAZOLE 40 MG/10 ML VIAL IVP SCH ×2 (07:49→20:51)
[2020-12-22] MEDS: ENOXAPARIN 40 MG/0.4 ML SYRINGE SQ SCH (07:49)
--- NOTE | 2020-12-22 08:01 | XR ---
EXAMINATION TYPE: XR chest 1V portable DATE OF EXAM: 12/22/2020 COMPARISON: 12/21/2020 HISTORY: Shortness of breath TECHNIQUE: Single frontal view of the chest is obtained. FINDINGS: There has been interval worsening in the left lower lobe opacity which most likely reflect s pulmonary edema or chronic infiltrate. There is persistent moderate pulmonary vascular congestion. There is no pleural effusion or pneumothorax. The osseous structures remain intact. IMPRESSION: Interval worsening in the acute cardiopulmonary disease as described above.
[2020-12-22 08:21] LABS: Anisocytosis Slight; Basophils % (A) 0 %; Eosinophils # (A) 0.2 k/uL (0-0.7); Eosinophils % (A) 5 %; HCT 28.7 % (39.0-53.0); HGB 9.4 gm/dL (13.0-17.5); Hypochromasia Slight; Lymphocytes # (A) 0.9 k/uL (1.0-4.8); Lymphocytes % (A) 21 %; MCH 30.3 pg (25.0-35.0); MCHC 32.7 g/dL (31.0-37.0); MCV 92.5 fL (80.0-100.0); Mean Platelet Volume 10.2; Monocytes # (A) 0.2 k/uL (0-1.0); Monocytes % (A) 5 %; Neutrophils # (A) 2.9 k/uL (1.3-7.7); Neutrophils % (A) 67 %; Platelet Count 138 k/uL (150-450); Poikilocytosis Slight; RDW 16.5 % (11.5-15.5); WBC 4.4 k/uL (3.8-10.6)
[2020-12-22 08:35] LABS: ALT 117 U/L (4-49); AST 32 U/L (17-59); African American GFR (CKD) >90 (>60 ml/min/1.73 sqM); Albumin 2.4 g/dL (3.5-5.0); Alkaline Phosphatase 101 U/L (38-126); Anion Gap 3 mmol/L; Blood Urea Nitrogen 33 mg/dL (9-20); Calcium 8.5 mg/dL (8.4-10.2); Carbon Dioxide 25 mmol/L (22-30); Chloride 110 mmol/L (98-107); Glucose 106 mg/dL (74-99); LDH 1532 U/L (313-618); Non-African American GFR(CKD) 88 (>60 ml/min/1.73 sqM); Potassium 4.2 mmol/L (3.5-5.1); Sodium 138 mmol/L (137-145); Total Bilirubin 0.8 mg/dL (0.2-1.3)
[2020-12-22 08:51] LABS: C Reactive Protein 15.9 mg/dL (<1.0)
[2020-12-22] MEDS: HYDROPHILIC CREAM 180 GM TUBE TOPICAL SCH (10:39)
[2020-12-22 11:55] LABS: Glucose,Whole Blood 128 mg/dL (75-99)
--- NOTE | 2020-12-22 12:09 | P.PN ---
Subjective Progress Note Date: 12/22/20 Principal diagnosis: COVID-19 pneumonia The patient is seen today 12/22/2020 in follow-up in the intensive care unit. He remains awake and alert. No acute distress. He is on 8 L high flow nasal cannula and maintaining O2 saturation in the 90s. He's been off the BiPAP He is extremely weak with significant critical illness polymyopathy.dust x-ray reveals increased worsening left lower lobe opacity likely reflecting pulmonary edema or chronic infiltrate. Persistent moderate pulmonary vascular congestion.white count 4.4. Hemoglobin 9.4. Platelets 138. Lymphocytes 0.9. D-dimer 3.99. Sodium 138. Potassium 4.2. Bicarb 25. Creatinine 0.93. AST 32. ALT 117. LDH 1532. C-reactive protein 15.9. He is continued on Lovenox, Decadron, vitamin supplements. Remains on bronchodilators. Blood cultures had revealed no growth. Urine culture no growth. PICC line catheter tip culture no growth. Objective - Vital Signs Vital signs: Vital Signs Temp 98.4 F 12/22/20 04:00 Pulse 98 12/22/20 11:00 Resp 16 12/22/20 11:00 BP 126/69 12/22/20 11:00 Pulse Ox 93 L 12/22/20 11:00 Intake & Output 12/21/20 12/22/20 12/22/20 18:59 06:59 18:59 Intake Total 450 480 30 Output Total 1065 1046 300 Balance -615 -566 -270 Weight 105.4 kg 104.8 kg Intake: IV 50 240 30 0.9NS 50 240 30 Oral 400 240 Output: Urine 1065 1045 300 Stool 1 Other: Voiding Method Indwelling Catheter Indwelling Catheter Indwelling Catheter # Bowel Movements 1 1 ABP, PAP, CO, CI - Last Documented Arterial Blood Pressure 110/78 - Exam GENERAL EXAM: Alert, very pleasant, extremey weak, 60-year-old male patient, on 8 L high flow nasal cannula HEAD: Normocephalic/atraumatic. EYES: Normal reaction of pupils, equal size. Conjunctiva pink, sclera white. NOSE: Clear with pink turbinates. THROAT: No erythema or exudates. NECK: No masses, no JVD, no thyroid enlargement, no adenopathy. CHEST: No chest wall deformity. Symmetrical expansion. LUNGS: Equal air entry with diffuse rhonchi, crackles in the bilateral posterior bases CVS: Regular rate and rhythm, normal S1 and S2, no gallops, no murmurs, no rubs ABDOMEN: Soft, nontender. No hepatosplenomegaly, normal bowel sounds, no guarding or rigidity. EXTREMITIES: No clubbing, no edema, no cyanosis, 2+ pulses and upper and lower extremities. MUSCULOSKELETAL: Extremely weak SPINE: No scoliosis or deformity SKIN: No rashes CENTRAL NERVOUS SYSTEM: No focal deficits, tone is normal in all 4 extremities. PSYCHIATRIC: Alert and oriented -3. Appropriate affect. Intact judgment and insight. - Labs CBC & Chem 7: 12/22/20 07:48 12/22/20 07:48 Labs: Abnormal Lab Results - Last 24 Hours (Table) 12/21/20 12/21/20 12/21/20 Range/Units 10:11 10:11 12:32 WBC 2.6 L (3.8-10.6) k/uL RBC 2.81 L (4.30-5.90) m/uL Hgb 8.8 L (13.0-17.5) gm/dL Hct 27.0 L (39.0-53.0) % RDW 16.7 H (11.5-15.5) % Plt Count 103 L (150-450) k/uL Lymphocytes # 0.4 L (1.0-4.8) k/uL D-Dimer (<0.60) mg/L FEU Chloride 110 H (98-107) mmol/L BUN 34 H (9-20) mg/dL Glucose 128 H (74-99) mg/dL POC Glucose (mg/dL) 254 H (75-99) mg/dL Calcium 8.3 L (8.4-10.2) mg/dL ALT (4-49) U/L Lactate Dehydrogenase (313-618) U/L C-Reactive Protein (<1.0) mg/dL Total Protein (6.3-8.2) g/dL Albumin (3.5-5.0) g/dL 12/21/20 12/21/20 12/21/20 Range/Units 12:34 16:36 20:16 WBC (3.8-10.6) k/uL RBC (4.30-5.90) m/uL Hgb (13.0-17.5) gm/dL Hct (39.0-53.0) % RDW (11.5-15.5) % Plt Count (150-450) k/uL Lymphocytes # (1.0-4.8) k/uL D-Dimer (<0.60) mg/L FEU Chloride (98-107) mmol/L BUN (9-20) mg/dL Glucose (74-99) mg/dL POC Glucose (mg/dL) 241 H 156 H 159 H (75-99) mg/dL Calcium (8.4-10.2) mg/dL ALT (4-49) U/L Lactate Dehydrogenase (313-618) U/L C-Reactive Protein (<1.0) mg/dL Total Protein (6.3-8.2) g/dL Albumin (3.5-5.0) g/dL 12/22/20 12/22/20 12/22/20 Range/Units 05:36 07:48 07:48 WBC (3.8-10.6) k/uL RBC 3.10 L (4.30-5.90) m/uL Hgb 9.4 L (13.0-17.5) gm/dL Hct 28.7 L (39.0-53.0) % RDW 16.5 H (11.5-15.5) % Plt Count 138 L (150-450) k/uL Lymphocytes # 0.9 L (1.0-4.8) k/uL D-Dimer 3.99 H (<0.60) mg/L FEU Chloride 110 H (98-107) mmol/L BUN 33 H (9-20) mg/dL Glucose 106 H (74-99) mg/dL POC Glucose (mg/dL) (75-99) mg/dL Calcium (8.4-10.2) mg/dL ALT 117 H (4-49) U/L Lactate Dehydrogenase 1532 H (313-618) U/L C-Reactive Protein 15.9 H (<1.0) mg/dL Total Protein 5.0 L (6.3-8.2) g/dL Albumin 2.4 L (3.5-5.0) g/dL 12/22/20 Range/Units 11:53 WBC (3.8-10.6) k/uL RBC (4.30-5.90) m/uL Hgb (13.0-17.5) gm/dL Hct (39.0-53.0) % RDW (11.5-15.5) % Plt Count (150-450) k/uL Lymphocytes # (1.0-4.8) k/uL D-Dimer (<0.60) mg/L FEU Chloride (98-107) mmol/L BUN (9-20) mg/dL Glucose (74-99) mg/dL POC Glucose (mg/dL) 128 H (75-99) mg/dL Calcium (8.4-10.2) mg/dL ALT (4-49) U/L Lactate Dehydrogenase (313-618) U/L C-Reactive Protein (<1.0) mg/dL Total Protein (6.3-8.2) g/dL Albumin (3.5-5.0) g/dL Assessment and Plan Assessment: 1 Acute Covid 19 related pneumonia. Patient is not vaccinated. The patient had not received any outpatient treatments for Covid 19 infection. Diagnosis established during this current admission. Started on Bariticinib on 11/15/2020 in view of worsening hypoxic respiratory failure. Patient was outside the window for Remdesivir. He did require intubation and mechanical ventilatory support. He was successfully extubated 12/18/2020. Currently on 8 L high flow nasal cannula. 2 Acute hypoxic respiratory failure secondary to above 3 Acute GI bleed on 12/07/2020 requiring a total of 6 units of packed red blood cells 2 units of platelets 4 Increased inflammatory markers related to acute COVID-19 pneumonia 5 Elevated d-dimer, currently on Lovenox 30 mg daily with concerns regarding recurrent GI bleed 6 Paroxysmal atrial fibrillation 7 ATN/AKA 8 Obesity 9 Severe critical illness polymyopathy Plan: The patient was seen and evaluated by Dr. Cochran Chest x-ray and labs reviewed Currently on 8 L high flow nasal cannula Continue Lovenox, Decadron, bronchodilators, vitamin supplements Titrate the FiO2 as tolerated Transfer to the regular medical floor today We will continue to follow I, the cosigning physician, performed a history & physical examination of the patient. Lungs sounds with few rhonchi, crackles in the bilateral posterior bases. Maintaining good O2 saturations in the 90s on 8 L high flow nasal cannula, I discussed the assessment and plan of care with my nurse practitioner, Roseanne Carey. I attest to the above note as dictated by her.
--- NOTE | 2020-12-22 13:49 | P.PN ---
Subjective Progress Note Date: 12/22/20 CHIEF COMPLAINT: Gastrointestinal bleed HISTORY OF PRESENT ILLNESS: The patient is a 60-year-old male admitted with COVID pneumonia who incidentally during hospitalization for gastrointestinal bleed. No further bleeding reported. He remains in the intensive care unit due to COVID pneumonia. He is sitting up at bedside. ROS: No new cardiac event. No fevers or chills. No new chest pain. Has morbid obesity, BMI 35.1 PHYSICAL EXAM: VITAL SIGNS: Reviewed CONSTITUTIONAL: Well developed and in no acute distress. EYES: Conjuctivae without sclera icterus. Extraocular movements grossly intact. HEAD, EARS, NOSE, THROAT: Moist buccal mucosa. Head is atraumatic, normocephalic. Hears conversational speech. No nasal drainage. NECK: No gross thyroidomegaly. No jugular venous distention. RESPIRATORY: Non-labored respirations and equal bilateral excursions. Mechanically ventilated. CARDIOVASCULAR: Palpable 2+ radial pulses. ABDOMEN: No peritonitis. MUSCULOSKELETAL: No gross deformity of the lower extremities noted. No clubbing. No cyanosis. SKIN: Good skin turgor. Well perfused. NEUROLOGIC: Cranial nerves II through XII grossly intact. No focal or lateralizing signs. PSYCH: Sedated. CLINICAL LABS: Reviewed. White blood cell count normal at 4.4. Hemoglobin of up from 8.8-9.4 with anemia. STUDIES: Chest x-ray independently reviewed demonstrating multiple opacities th roughout the lungs. No large consolidation. This is my independent interpretation. ASSESSMENT: 1. Covid pneumonia 2. Gastrointestinal bleed with anemia PLAN: 1. Continue supportive care due to Covid pneumonia. 2. Monitor for bleed. 3. Upper and lower endoscopy pending medical stability. 4. Patient elevated risks due to pre-existing comorbidities and Covid pneumonia Objective - Vital Signs Vital signs: Vital Signs Temp 98.4 F 12/22/20 04:00 Pulse 89 12/22/20 07:00 Resp 28 H 12/22/20 07:00 BP 129/68 12/22/20 07:00 Pulse Ox 93 L 12/22/20 07:00 Intake & Output 12/21/20 12/22/20 12/22/20 18:59 06:59 18:59 Intake Total 450 480 20 Output Total 1065 1046 100 Balance -615 -566 -80 Weight 105.4 kg 104.8 kg Intake: IV 50 240 20 0.9NS 50 240 20 Oral 400 240 Output: Urine 1065 1045 100 Stool 1 Other: Voiding Method Indwelling Catheter Indwelling Catheter # Bowel Movements 1 1 ABP, PAP, CO, CI - Last Documented Arterial Blood Pressure 110/78 - Labs CBC & Chem 7: 12/22/20 07:48 12/22/20 07:48 Labs: Abnormal Lab Results - Last 24 Hours (Table) 12/21/20 12/21/20 12/21/20 Range/Units 10:11 10:11 10:11 WBC 2.6 L (3.8-10.6) k/uL RBC 2.81 L (4.30-5.90) m/uL Hgb 8.8 L (13.0-17.5) gm/dL Hct 27.0 L (39.0-53.0) % RDW 16.7 H (11.5-15.5) % Plt Count 103 L (150-450) k/uL Lymphocytes # 0.4 L (1.0-4.8) k/uL D-Dimer 4.31 H (<0.60) mg/L FEU Chloride 110 H (98-107) mmol/L BUN 34 H (9-20) mg/dL Glucose 128 H (74-99) mg/dL POC Glucose (mg/dL) (75-99) mg/dL Calcium 8.3 L (8.4-10.2) mg/dL 12/21/20 12/21/20 12/21/20 Range/Units 12:32 12:34 16:36 WBC (3.8-10.6) k/uL RBC (4.30-5.90) m/uL Hgb (13.0-17.5) gm/dL Hct (39.0-53.0) % RDW (11.5-15.5) % Plt Count (150-450) k/uL Lymphocytes # (1.0-4.8) k/uL D-Dimer (<0.60) mg/L FEU Chloride (98-107) mmol/L BUN (9-20) mg/dL Glucose (74-99) mg/dL POC Glucose (mg/dL) 254 H 241 H 156 H (75-99) mg/dL Calcium (8.4-10.2) mg/dL 12/21/20 12/22/20 Range/Units 20:16 05:36 WBC (3.8-10.6) k/uL RBC (4.30-5.90) m/uL Hgb (13.0-17.5) gm/dL Hct (39.0-53.0) % RDW (11.5-15.5) % Plt Count (150-450) k/uL Lymphocytes # (1.0-4.8) k/uL D-Dimer 3.99 H (<0.60) mg/L FEU Chloride (98-107) mmol/L BUN (9-20) mg/dL Glucose (74-99) mg/dL POC Glucose (mg/dL) 159 H (75-99) mg/dL Calcium (8.4-10.2) mg/dL Assessment and Plan (1) Morbid obesity due to excess calories Current Visit: Yes Status: Acute Code(s): E66.01 - MORBID (SEVERE) OBESITY DUE TO EXCESS CALORIES SNOMED Code(s): 729353425 (2) BMI over 35 Current Visit: Yes Status: Acute Code(s): GOE7607 - SNOMED Code(s): 802190982 (3) GI bleed Current Visit: Yes Status: Acute Code(s): K92.2 - GASTROINTESTINAL HEMORRHAGE, UNSPECIFIED SNOMED Code(s): 06366642 (4) Pneumonia due to COVID-19 virus Current Visit: Yes Status: Acute Code(s): U07.1 - COVID-19; J12.82 - Pneumonia due to coronavirus disease 2019 SNOMED Code(s): 650791843494962069
[2020-12-22 16:20] LABS: Glucose,Whole Blood 182 mg/dL (75-99)
--- NOTE | 2020-12-22 16:21 | P.PN ---
Subjective Progress Note Date: 12/22/20 HISTORY OF PRESENT ILLNESS This is a pleasant 60-year-old gentleman patient of Dr. Ridge Christina. He doesn't see a physician often and does not note any medical diseases, except for obesity. He comes seen secondary to fever and chills, cough, starting December 06 first, along with muscle aches, lack of appetite and diarrhea. he was tested for call bid November 08, which required at week of reporting, subsequently was sent to emergency room secondary to worsening symptoms, including dyspnea on exertion, shortness of breath and worsening cough without hemoptysis. Fever, s hortness of breath lingers, no treatment given to him prior to this admission. The is vaccinated, but the patient is not. He does not believe in vaccines at that time. He comes in the emergency room, with hypoxemia, with very minimal conversational dyspnea, chest x-ray, shows pulmonary infiltrate consistent with Covid pneumonia, oxygen currently is at 6 L nasal cannula, d-dimer was 0.6, LFTs are minimally elevated, 64 AST, lactic acid 2.0 sodium 132, creatinine of 0.9, glucose of 122, LDH of 888, CRP of 5.7. Urine protein noted, without hematuria or proteinuria. Covid was again retested 11/14, PCR is positive. Consult to Dr. Eduardo and pulmonary,, [facility] but continued to have hypoxia with drop in his oxygenation level despite use of airflow and nonrebreather. He completed a course of Baricitnib and was treated also with dexamethasone, Lovenox and supplements. Patient was eventually transitioned to ICU on 11/25 with BiPAP and patient at times seemed to be stabilized and improving but then he developed a GI bleed required blood transfusion and vasopressor support. He was subsequently intubated on 12/07. Other conditions complicating his stay include thrombocytopenia, atrial fibrillation with RVR converted to sinus rhythm and kidney injury. 12/18: Patient remains in intensive care unit and was successfully extubated th is morning and is currently on high flow nasal cannula at 10 L with pulse ox is 93%. He remains an sinus rhythm, afebrile, blood pressure 137/62. One unit of packed RBCs ordered for hemoglobin of 6.8. BUN 64 and creatinine 1.44. Blood sugars are running 101-138. Repeat inflammatory markers: LDH 1857, C-reactive protein 4. Chest x-ray reveals mild cardiomegaly with left greater than right bilateral multifocal opacities consistent with Covid. Nephrology is taking the patient off Diamox. 12/19: She remains in the intensive care unit for breathing status seems to be stable he is currently on O2 at 12 L nasal cannula with pulse ox in the low 90s. Blood pressure 167/74, respiratory rate 27, heart rate in the 80s and 90s, afebrile. monitoring analyst is sinus rhythm. monitoring analyst is He is feeling tired. PICC line placed this morning for IV access and triple lumen catheter discontinued. PT OT to work with patient most likely will require subacute rehab. 12/20: Patient remains in the intensive care unit. His been ordered for 40 of Lasix and had 1.7 L of urine out. Patient has been seen by [facility] for stage II pressure ulcer left and right buttocks with augmentations for triad and sacral dressing. Also patient has a nonhealing ulcer to the left upper extremity with recommendations for triad as well. Patient has been hemodynamically stable and off vasopressors, no IV fluids. He is currently on 12 L high flow nasal cannula with pulse ox 95%, he's been afebrile, heart rate in the 90s, respiratory rate 27-31, blood pressure 146/72. WBC 3.6, hemoglobin 9.3, platelet count 73. BUN 42 creatinine 1.31. 12/21: Patient is seen today in the emergency center and recliner with legs elevated. He continues to have significant weakness, is trying to eat more food. He has been afebrile, heart rate in the 80s, blood pressure 124/65, pulse ox 93% on 4 L nasal cannula. He had 2 bowel movements yesterday. D-dimer is 4.31. Blood sugars are running between 68 and 254. He is currently on chopped diet with nectar thick liquids and aspiration precautions. Repeat lab work including inflammatory markers ordered for tomorrow. 12/22: Lesion seen in ICU, still has shortness of breath progressive dyspnea, patient has known nausea vomiting, complaining of left toe pain, he thinks it's ingrown patient's not needing any Levemir at this time, and will be discontinued. Blood sugars are stable between 110-150 vital signs stable pulse ox 90-95% on 8 L nasal cannula LDH still elevated at 1532, CRP elevated 15 alkaline [place] normal, ALT elevated 117, albumin 2.4 creatinine 0.9 REVIEW OF SYSTEMS Constitutional: No fever, no chills, no night sweats. No weight change. Reports weakness, reports fatigue reports lethargy. Reports daytime sleepiness. EENT: No headache. No blurred vision or double vision, no loss of vision. No loss of Hearing, no ringing in the ears, no dizziness. No nasal drainage or congestion. No epistaxis. No sore throat. Lungs Reported shortness of breath, reported cough, no sputum production. No wheezing. Cardiovascular: No chest pain, no lower extremity edema. No palpitations. No paroxysmal nocturnal dyspnea. No orthopnea. No lightheadedness or dizziness. No syncopal episodes. Abdominal: No abdominal pain. No nausea, vomiting. None diarrhea. No constipation. No bloody or tarry stools. Reports loss of appetite. Genitourinary: No dysuria, increased frequency, urgency. No urinary retention- Mackenzie in place. Musculoskeletal: No myalgias. Generalized muscle weakness, no gait dysfunction, no frequent falls. No back pain. No neck pain. Integumentary: No wounds, no lesions. No rash or pruritus. No unusual bruising. Neurologic: No aphasia. No facial droop. No change in mentation. No head injury. No headache. No paresthesia. Psychiatric: No depression. No anxiety. Endocrine: Noted mildly elevated blood sugars. Objective - Vital Signs Vital signs: Vital Signs Temp 98.4 F 12/22/20 04:00 Pulse 91 12/22/20 12:00 Resp 28 H 12/22/20 12:00 BP 126/69 12/22/20 11:00 Pulse Ox 95 12/22/20 12:00 Intake & Output 12/21/20 12/22/20 12/22/20 18:59 06:59 18:59 Intake Total 450 480 30 Output Total 1065 1046 300 Balance -615 -566 -270 Weight 105.4 kg 104.8 kg Intake: IV 50 240 30 0.9NS 50 240 30 Oral 400 240 Output: Urine 1065 1045 300 Stool 1 Other: Voiding Method Indwelling Catheter Indwelling Catheter Indwelling Catheter # Bowel Movements 1 1 ABP, PAP, CO, CI - Last Documented Arterial Blood Pressure 110/78 - Constitutional General appearance: Present: cooperative, no acute distress - EENT Eyes: Present: EOMI, PERRLA, dentition normal, normal appearance ENT: Present: NA/AT, normal oropharynx - Neck Neck: Present: normal ROM - Respiratory Respiratory: bilateral: CTA, diminished, negative: rhonchi, wheezing, prolonged expiration, prolonged inspiration - Cardiovascular Rhythm: regular Heart sounds: normal: S1, S2 Abnormal Heart Sounds: Absent: systolic murmur, diastolic murmur, rub, S3 Gallop, S4 Gallop, click, other - Gastrointestinal General gastrointestinal: Present: normal bowel sounds, soft - Integumentary Integumentary: Present: normal - Neurologic Neurologic: Present: CNII-XII intact - Musculoskeletal Musculoskeletal: Present: gait normal, strength equal bilaterally - Psychiatric Psychiatric: Present: A&O x's 3, appropriate affect - Labs CBC & Chem 7: 12/22/20 07:48 12/22/20 07:48 Labs: Abnormal Lab Results - Last 24 Hours (Table) 12/21/20 12/21/20 12/21/20 Range/Units 10:11 10:11 16:36 WBC 2.6 L (3.8-10.6) k/uL RBC 2.81 L (4.30-5.90) m/uL Hgb 8.8 L (13.0-17.5) gm/dL Hct 27.0 L (39.0-53.0) % RDW 16.7 H (11.5-15.5) % Plt Count 103 L (150-450) k/uL Lymphocytes # 0.4 L (1.0-4.8) k/uL D-Dimer (<0.60) mg/L FEU Chloride 110 H (98-107) mmol/L BUN 34 H (9-20) mg/dL Glucose 128 H (74-99) mg/dL POC Glucose (mg/dL) 156 H (75-99) mg/dL Calcium 8.3 L (8.4-10.2) mg/dL ALT (4-49) U/L Lactate Dehydrogenase (313-618) U/L C-Reactive Protein (<1.0) mg/dL Total Protein (6.3-8.2) g/dL Albumin (3.5-5.0) g/dL 12/21/20 12/22/20 12/22/20 Range/Units 20:16 05:36 07:48 WBC (3.8-10.6) k/uL RBC 3.10 L (4.30-5.90) m/uL Hgb 9.4 L (13.0-17.5) gm/dL Hct 28.7 L (39.0-53.0) % RDW 16.5 H (11.5-15.5) % Plt Count 138 L (150-450) k/uL Lymphocytes # 0.9 L (1.0-4.8) k/uL D-Dimer 3.99 H (<0.60) mg/L FEU Chloride (98-107) mmol/L BUN (9-20) mg/dL Glucose (74-99) mg/dL POC Glucose (mg/dL) 159 H (75-99) mg/dL Calcium (8.4-10.2) mg/dL ALT (4-49) U/L Lactate Dehydrogenase (313-618) U/L C-Reactive Protein (<1.0) mg/dL Total Protein (6.3-8.2) g/dL Albumin (3.5-5.0) g/dL 12/22/20 12/22/20 Range/Units 07:48 11:53 WBC (3.8-10.6) k/uL RBC (4.30-5.90) m/uL Hgb (13.0-17.5) gm/dL Hct (39.0-53.0) % RDW (11.5-15.5) % Plt Count (150-450) k/uL Lymphocytes # (1.0-4.8) k/uL D-Dimer (<0.60) mg/L FEU Chloride 110 H (98-107) mmol/L BUN 33 H (9-20) mg/dL Glucose 106 H (74-99) mg/dL POC Glucose (mg/dL) 128 H (75-99) mg/dL Calcium (8.4-10.2) mg/dL ALT 117 H (4-49) U/L Lactate Dehydrogenase 1532 H (313-618) U/L C-Reactive Protein 15.9 H (<1.0) mg/dL Total Protein 5.0 L (6.3-8.2) g/dL Albumin 2.4 L (3.5-5.0) g/dL Assessment and Plan Plan: 1. Acute respiratory failure: Secondary to COVID-19 requiring intubation and mechanical ventilation, with possible secondary bacterial pneumonia. Patient has been successfully extubated 12/19. Continue albuterol inhaler 2 puffs as needed, dexamethasone 4 mg IV daily, Lovenox 30 mg subcu daily, vitamin supplements. Consult with pulmonary medicine appreciated. 2. Sepsis (POA) secondary to COVID-19 pneumonia, with acute hypoxemic respiratory failure, diagnosis was of 11/08/2020. 3. Moderate protein calorie malnutrition secondary to poor oral intake. Continue protein supplements. 4. New-onset atrial fibrillation with RVR, paroxysmal atrial fibrillation. Currently in sinus rhythm. Continue oral amiodarone 200 mg twice daily, Eliquis placed on hold due to GI bleed. Echocardiogram as above. 5. Thrombocytopenia secondary to sepsis, improving. No anticoagulation due to thrombocytopenia, GI bleed. Transfusion of 2 unit of platelets. 6. Acute GI bleed with acute blood loss anemia. Eliquis placed on hold, total of 6 units packed RBCs, IV fluid boluses, consult with Dr. Ojeda appreciated. EGD and colonoscopy once patient is stabilized, Dr. Lester is following. 7. Acute hypovolemic shock or septic shock requiring vasopressors, massive IV fluid resuscitation. Patient is off vasopressors and blood pressure has been stable. 8. Acute kidney injury with ATN secondary to septic shock. Consult with nep hrology appreciated. Patient has had good urine output. 9. Metabolic acidosis secondary to acute kidney injury. 10. Severe hyperkalemia secondary to acute kidney injury. Followed by nephrolo gy. 11. Shock liver secondary to hypotension. Monitor liver function test. 12. DVT prophylaxis. 13. GI prophylaxis. Protonic. 14. BPH. Mackenzie catheter 15. Proteinuria, unknown cause. 16. Dymetabolic syndrome, monitor for hyperglycemia, A1c 6.4. NovoLog scale every 4 hours, added Levemir 12 units twice daily. 17. Back pain. CODE Status: Full code Prognosis: guarded.
[2020-12-22 20:10] LABS: Glucose,Whole Blood 126 mg/dL (75-99)
[2020-12-23 06:48] LABS: Anisocytosis Slight; Basophils % (A) 1 %; Eosinophils # (A) 0.2 k/uL (0-0.7); Eosinophils % (A) 3 %; HCT 28.4 % (39.0-53.0); HGB 9.3 gm/dL (13.0-17.5); Hypochromasia Slight; Lymphocytes % (A) 20 %; MCHC 32.6 g/dL (31.0-37.0); MCV 95.3 fL (80.0-100.0); Mean Platelet Volume 9.4; Monocytes # (A) 0.4 k/uL (0-1.0); Monocytes % (A) 7 %; Neutrophils # (A) 3.3 k/uL (1.3-7.7); Neutrophils % (A) 65 %; Platelet Count 177 k/uL (150-450); Poikilocytosis Slight; RBC 2.98 m/uL (4.30-5.90); RDW 16.3 % (11.5-15.5); WBC 5.1 k/uL (3.8-10.6)
[2020-12-23 07:13] LABS: African American GFR (CKD) >90 (>60 ml/min/1.73 sqM); Anion Gap 2 mmol/L; Blood Urea Nitrogen 34 mg/dL (9-20); Calcium 8.7 mg/dL (8.4-10.2); Carbon Dioxide 30 mmol/L (22-30); Chloride 106 mmol/L (98-107); Glucose 90 mg/dL (74-99); Non-African American GFR(CKD) >90 (>60 ml/min/1.73 sqM); Sodium 138 mmol/L (137-145)
[2020-12-23] MEDS: FUROSEMIDE 10 MG/ML 4 ML VIAL IV SCH (07:23)
[2020-12-23] MEDS: SODIUM CHLORIDE 0.9% 1,000 ML IV SCH (07:26)
[2020-12-23 07:46] LABS: Glucose,Whole Blood 83 mg/dL (75-99)
[2020-12-23] MEDS: INSULIN ASPART (NovoLOG) 100 UNIT/ML VIAL SQ SCH ×4 (09:09→22:38)
[2020-12-23] MEDS: ENOXAPARIN 40 MG/0.4 ML SYRINGE SQ SCH (09:45)
[2020-12-23] MEDS: ZINC SULFATE 220 MG CAP PO SCH (09:45)
[2020-12-23] MEDS: AMIODARONE 200 MG TAB PO SCH ×2 (09:45→22:38)
[2020-12-23] MEDS: CHOLECALCIFEROL 25 MCG (1000 IU) TABLET PO SCH (09:45)
[2020-12-23] MEDS: ASCORBIC ACID 500 MG TAB PO SCH ×2 (09:45→22:38)
[2020-12-23] MEDS: DEXAMETHASONE SOD PHOSPHATE 4 MG/ML 1 ML VIAL IV SCH (09:45)
[2020-12-23] MEDS: PANTOPRAZOLE 40 MG/10 ML VIAL IVP SCH ×2 (09:45→22:38)
[2020-12-23] MEDS: HYDROPHILIC CREAM 180 GM TUBE TOPICAL SCH (09:45)
--- NOTE | 2020-12-23 11:08 | P.PN ---
Subjective Progress Note Date: 12/23/20 CHIEF COMPLAINT: Gastrointestinal bleed HISTORY OF PRESENT ILLNESS: The patient is a 60-year-old male admitted with COVID pneumonia who incidentally during hospitalization for gastrointestinal bleed. No further bleeding reported. He is now transferred to the floor. He denies any abdominal pain. ROS: No new cardiac event. No fevers or chills. No new chest pain. Has morbid obesity, BMI 35.1 PHYSICAL EXAM: VITAL SIGNS: Reviewed CONSTITUTIONAL: Well developed and in no acute distress. EYES: Conjuctivae without sclera icterus. Extraocular movements grossly intact. HEAD, EARS, NOSE, THROAT: Moist buccal mucosa. Head is atraumatic, normocephalic. Hears conversational speech. No nasal drainage. NECK: No gross thyroidomegaly. No jugular venous distention. RESPIRATORY: Non-labored respirations and equal bilateral excursions. Mechanically ventilated. CARDIOVASCULAR: Palpable 2+ radial pulses. ABDOMEN: No peritonitis. Nontender. MUSCULOSKELETAL: No gross deformity of the lower extremities noted. No clubbing. No cyanosis. SKIN: Good skin turgor. Well perfused. NEUROLOGIC: Cranial nerves II through XII grossly intact. No focal or lateralizing signs. PSYCH: Sedated. : Mackenzie clear. CLINICAL LABS: Reviewed. White blood cell count normal at 4.4. Hemoglobin of up from 8.8-9.4 with anemia, now 9.3 today. ASSESSMENT: 1. Covid pneumonia 2. Gastrointestinal bleed with anemia PLAN: 1. Patient had no further bleeds. 2. May continue to monitor. Objective - Vital Signs Vital signs: Vital Signs Temp 97.5 F L 12/23/20 08:00 Pulse 84 12/23/20 08:00 Resp 20 12/23/20 08:00 BP 161/83 12/23/20 08:00 Pulse Ox 95 12/23/20 08:00 Intake & Output 12/22/20 12/23/20 12/23/20 18:59 06:59 18:59 Intake Total 30 200 Output Total 800 1300 Balance -770 -1100 Weight 109.5 kg Intake: IV 30 0.9NS 30 Oral 200 Output: Urine 800 1300 Other: Voiding Method Indwelling Catheter Indwelling Catheter ABP, PAP, CO, CI - Last Documented Arterial Blood Pressure 110/78 - Labs CBC & Chem 7: 12/23/20 06:12 12/23/20 06:12 Labs: Abnormal Lab Results - Last 24 Hours (Table) 12/22/20 12/22/20 12/22/20 Range/Units 11:53 16:19 20:08 RBC (4.30-5.90) m/uL Hgb (13.0-17.5) gm/dL Hct (39.0-53.0) % RDW (11.5-15.5) % BUN (9-20) mg/dL POC Glucose (mg/dL) 128 H 182 H 126 H (75-99) mg/dL 12/23/20 12/23/20 Range/Units 06:12 06:12 RBC 2.98 L (4.30-5.90) m/uL Hgb 9.3 L (13.0-17.5) gm/dL Hct 28.4 L (39.0-53.0) % RDW 16.3 H (11.5-15.5) % BUN 34 H (9-20) mg/dL POC Glucose (mg/dL) (75-99) mg/dL Assessment and Plan (1) Morbid obesity due to excess calories Current Visit: Yes Status: Acute Code(s): E66.01 - MORBID (SEVERE) OBESITY DUE TO EXCESS CALORIES SNOMED Code(s): 601706511 (2) BMI over 35 Current Visit: Yes Status: Acute Code(s): YYG5030 - SNOMED Code(s): 341466739 (3) GI bleed Current Visit: Yes Status: Acute Code(s): K92.2 - GASTROINTESTINAL HEMORRHAGE, UNSPECIFIED SNOMED Code(s): 47501758 (4) Pneumonia due to COVID-19 virus Current Visit: Yes Status: Acute Code(s): U07.1 - COVID-19; J12.82 - Pneumonia due to coronavirus disease 2019 SNOMED Code(s): 029585674696949760
[2020-12-23 11:42] LABS: Glucose,Whole Blood 110 mg/dL (75-99)
--- NOTE | 2020-12-23 12:37 | P.PN ---
Subjective Progress Note Date: 12/23/20 HISTORY OF PRESENT ILLNESS This is a pleasant 60-year-old gentleman patient of Dr. Ridge Christina. He doesn't see a physician often and does not note any medical diseases, except for obesity. He comes seen secondary to fever and chills, cough, starting December 06 first, along with muscle aches, lack of appetite and diarrhea. he was tested for call bid November 08, which required at week of reporting, subsequently was sent to emergency room secondary to worsening symptoms, including dyspnea on exertion, shortness of breath and worsening cough without hemoptysis. Fever, s hortness of breath lingers, no treatment given to him prior to this admission. The is vaccinated, but the patient is not. He does not believe in vaccines at that time. He comes in the emergency room, with hypoxemia, with very minimal conversational dyspnea, chest x-ray, shows pulmonary infiltrate consistent with Covid pneumonia, oxygen currently is at 6 L nasal cannula, d-dimer was 0.6, LFTs are minimally elevated, 64 AST, lactic acid 2.0 sodium 132, creatinine of 0.9, glucose of 122, LDH of 888, CRP of 5.7. Urine protein noted, without hematuria or proteinuria. Covid was again retested 11/14, PCR is positive. Consult to Dr. Eduardo and pulmonary,, [facility] but continued to have hypoxia with drop in his oxygenation level despite use of airflow and nonrebreather. He completed a course of Baricitnib and was treated also with dexamethasone, Lovenox and supplements. Patient was eventually transitioned to ICU on 11/25 with BiPAP and patient at times seemed to be stabilized and improving but then he developed a GI bleed required blood transfusion and vasopressor support. He was subsequently intubated on 12/07. Other conditions complicating his stay include thrombocytopenia, atrial fibrillation with RVR converted to sinus rhythm and kidney injury. 12/18: Patient remains in intensive care unit and was successfully extubated th is morning and is currently on high flow nasal cannula at 10 L with pulse ox is 93%. He remains an sinus rhythm, afebrile, blood pressure 137/62. One unit of packed RBCs ordered for hemoglobin of 6.8. BUN 64 and creatinine 1.44. Blood sugars are running 101-138. Repeat inflammatory markers: LDH 1857, C-reactive protein 4. Chest x-ray reveals mild cardiomegaly with left greater than right bilateral multifocal opacities consistent with Covid. Nephrology is taking the patient off Diamox. 12/19: She remains in the intensive care unit for breathing status seems to be stable he is currently on O2 at 12 L nasal cannula with pulse ox in the low 90s. Blood pressure 167/74, respiratory rate 27, heart rate in the 80s and 90s, afebrile. residential monitor is sinus rhythm. residential monitor is He is feeling tired. PICC line placed this morning for IV access and triple lumen catheter discontinued. PT OT to work with patient most likely will require subacute rehab. 12/20: Patient remains in the intensive care unit. His been ordered for 40 of Lasix and had 1.7 L of urine out. Patient has been seen by [facility] for stage II pressure ulcer left and right buttocks with augmentations for triad and sacral dressing. Also patient has a nonhealing ulcer to the left upper extremity with recommendations for triad as well. Patient has been hemodynamically stable and off vasopressors, no IV fluids. He is currently on 12 L high flow nasal cannula with pulse ox 95%, he's been afebrile, heart rate in the 90s, respiratory rate 27-31, blood pressure 146/72. WBC 3.6, hemoglobin 9.3, platelet count 73. BUN 42 creatinine 1.31. 12/21: Patient is seen today in the emergency center and recliner with legs elevated. He continues to have significant weakness, is trying to eat more food. He has been afebrile, heart rate in the 80s, blood pressure 124/65, pulse ox 93% on 4 L nasal cannula. He had 2 bowel movements yesterday. D-dimer is 4.31. Blood sugars are running between 68 and 254. He is currently on chopped diet with nectar thick liquids and aspiration precautions. Repeat lab work including inflammatory markers ordered for tomorrow. 12/22: Lesion seen in ICU, still has shortness of breath progressive dyspnea, patient has known nausea vomiting, complaining of left toe pain, he thinks it's ingrown patient's not needing any Levemir at this time, and will be discontinued. Blood sugars are stable between 110-150 vital signs stable pulse ox 90-95% on 8 L nasal cannula LDH still elevated at 1532, CRP elevated 15 alkaline [place] normal, ALT elevated 117, albumin 2.4 creatinine 0.9 12/23: Patient's with family members today, he has conversational dyspnea, and pulse ox is 95% on 8 L test cannula, we are going to decrease his 7 L, discharge planning is in progress, PT OT is following the patient, patient requires feeding with assistance, latter being monitored, vitals are currently stable, REVIEW OF SYSTEMS Constitutional: No fever, no chills, no night sweats. No weight change. Reports weakness, reports fatigue reports lethargy. Reports daytime sleepiness. EENT: No headache. No blurred vision or double vision, no loss of vision. No loss of Hearing, no ringing in the ears, no dizziness. No nasal drainage or congestion. No epistaxis. No sore throat. Lungs Reported shortness of breath, reported cough, no sputum production. No wheezing. Cardiovascular: No chest pain, no lower extremity edema. No palpitations. No paroxysmal nocturnal dyspnea. No orthopnea. No lightheadedness or dizziness. No syncopal episodes. Abdominal: No abdominal pain. No nausea, vomiting. None diarrhea. No constipation. No bloody or tarry stools. Reports loss of appetite. Genitourinary: No dysuria, increased frequency, urgency. No urinary retention- Mackenzie in place. Musculoskeletal: No myalgias. Generalized muscle weakness, no gait dysfunction, no frequent falls. No back pain. No neck pain. Integumentary: No wounds, no lesions. No rash or pruritus. No unusual bruising. Neurologic: No aphasia. No facial droop. No change in mentation. No head injury. No headache. No paresthesia. Psychiatric: No depression. No anxiety. Endocrine: Noted mildly elevated blood sugars. Objective - Vital Signs Vital signs: Vital Signs Temp 97.5 F L 12/23/20 08:00 Pulse 84 12/23/20 08:00 Resp 20 12/23/20 08:00 BP 161/83 12/23/20 08:00 Pulse Ox 95 12/23/20 08:00 Intake & Output 12/22/20 12/23/20 12/23/20 18:59 06:59 18:59 Intake Total 30 200 Output Total 800 1300 Balance -770 -1100 Weight 109.5 kg Intake: IV 30 0.9NS 30 Oral 200 Output: Urine 800 1300 Other: Voiding Method Indwelling Catheter Indwelling Catheter ABP, PAP, CO, CI - Last Documented Arterial Blood Pressure 110/78 - Constitutional General appearance: Present: cooperative, no acute distress - EENT Eyes: Present: anicteric sclerae, PERRLA - Respiratory Respiratory: right: dullness, bilateral: CTA, negative: diminished - Cardiovascular Rhythm: regular - Gastrointestinal General gastrointestinal: Present: normal bowel sounds, scaphoid - Integumentary Integumentary: Present: normal, normal turgor - Neurologic Neurologic: Present: CNII-XII intact, focal deficits - Psychiatric Psychiatric: Present: A&O x's 3, intact judgment & insight - Labs CBC & Chem 7: 12/23/20 06:12 12/23/20 06:12 Labs: Abnormal Lab Results - Last 24 Hours (Table) 12/22/20 12/22/20 12/23/20 Range/Units 16:19 20:08 06:12 RBC 2.98 L (4.30-5.90) m/uL Hgb 9.3 L (13.0-17.5) gm/dL Hct 28.4 L (39.0-53.0) % RDW 16.3 H (11.5-15.5) % BUN (9-20) mg/dL POC Glucose (mg/dL) 182 H 126 H (75-99) mg/dL 12/23/20 12/23/20 Range/Units 06:12 11:40 RBC (4.30-5.90) m/uL Hgb (13.0-17.5) gm/dL Hct (39.0-53.0) % RDW (11.5-15.5) % BUN 34 H (9-20) mg/dL POC Glucose (mg/dL) 110 H (75-99) mg/dL Assessment and Plan Plan: 1. Acute respiratory failure: Secondary to COVID-19 requiring intubation and mechanical ventilation, with possible secondary bacterial pneumonia. Patient has been successfully extubated 12/19. Continue albuterol inhaler 2 puffs as needed, dexamethasone 4 mg IV daily, Lovenox 30 mg subcu daily, vitamin supplements. Consult with pulmonary medicine appreciated. 2. Sepsis (POA) secondary to COVID-19 pneumonia, with acute hypoxemic respiratory failure, diagnosis was of 11/08/2020. 3. Moderate protein calorie malnutrition secondary to poor oral intake. Continue protein supplements. 4. New-onset atrial fibrillation with RVR, paroxysmal atrial fibrillation. Currently in sinus rhythm. Continue oral amiodarone 200 mg twice daily, Eliquis placed on hold due to GI bleed. Echocardiogram as above. 5. Thrombocytopenia secondary to sepsis, improving. No anticoagulation due to thrombocytopenia, GI bleed. Transfusion of 2 unit of platelets. 6. Acute GI bleed with acute blood loss anemia. Eliquis placed on hold, total of 6 units packed RBCs, IV fluid boluses, consult with Dr. Ojeda appreciated. EGD and colonoscopy once patient is stabilized, Dr. Lester is following. 7. Acute hypovolemic shock or septic shock requiring vasopressors, massive IV fluid resuscitation. Patient is off vasopressors and blood pressure has been stable. 8. Acute kidney injury with ATN secondary to septic shock. Consult with nephrology appreciated. Patient has had good urine output. 9. Metabolic acidosis secondary to acute kidney injury. 10. Severe hyperkalemia secondary to acute kidney injury. Followed by nephrology. 11. Shock liver secondary to hypotension. Monitor liver function test. 12. DVT prophylaxis. 13. GI prophylaxis. Protonic. 14. BPH. Mackenzie catheter 15. Proteinuria, unknown cause. 16. Dysmetabolic syndrome, monitor for hyperglycemia, A1c 6.4. NovoLog scale every 4 hours, added Levemir 12 units twice daily. 17. Back pain. 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
--- NOTE | 2020-12-23 15:18 | P.PN ---
Subjective Progress Note Date: 12/23/20 Principal diagnosis: COVID pneumonia. Acute hypoxic respiratory failure secondary to COVID-19 pneumonia. On 12/10/2020 patient seen in follow-up in intensive care unit, he was i ntubated and placed on mechanical ventilator last Thursday on 12/07/2020. Patient at the time he has developed worsening hypoxic respiratory failure and acute GI blood loss anemia and Hemorrhagic shock requiring transfusion with 4 units of packed red blood cells, K [facility] infusion for reversal of Eliquis, and she was fluid resuscitated with a total of 7 L of fluid. At the same time she was intubated and placed on mechanical ventilator on which he remains today, he is currently on assist control mode of ventilation with a rate of 30, tidal M is 375, FiO2 of 60% and PEEP of 12. This morning's blood gas shows pO2 of 57, pCO2 of 53 a pH of 7.33, and this was on FiO2 of 60%. Patient has been weaned off the vasopressor support, his Levothroid and vasopressin have been off for over 24 hours, he is currently complaining of a rate of 75 ML per hour, amiodarone is at 0.5 mg per hour, and index is at 1 davon per kilo per minute, Diprivan is a 35 mics per kilo per minute. Patient has not had any further bleeding since yesterday. His chest x-ray shows continued bilateral diffuse airspace disease, with worsening at the left base. Patient is still tachycardic with a rate in the 140s BPM and what appears to be in sinus mechanism. Today's labs have been reviewed, showing improving white count which is down to 19.9, hemoglobin is 7.1, platelet count is 28, sodium is 140, potassium is 4.2, chloride is 111, CO2 is 28, BUN is 86, creatinine 2.91, and the patient's renal profile has slightly worsened since yesterday. His AST is improving and is down to 794 from 2912, ALT is 3274, improving, patient has not had a LDH and CRP done in the last 3 or 4 days. Cortisol level was 35 2 days ago, urinalysis without sign of infection, stool for occult blood was positive, his anticoagulation remains on hold. His PICC line has been removed, and catheter tip culture is pending at this time, all his blood and urine cultures have remained negative thus far. Patient remains on multivitamins, she remains on Decadron currently at 4 mg daily, he is on Protonix 40 mg twice daily, he remains on empiric antibiotics in the form of Zosyn and vancomycin. His urine output has been in the order of 45-50 ML per hour. Patient was reevaluated today on 12/11/2020, remains in the ICU, intubated and mechanically ventilated, sedated and paralyzed. Patient is on assist control rate of 38 tidal volume 375 FiO2 60% and PEEP is 12. ABG showed a pO2 of 58 pCO2 of 54 pH of 7.30. Peak airway pressure is 43 plateau pressure is 35. Drips include amiodarone at 0.5, Nimbex at 1, fentanyl at 25 mcg/kg/m, nor epinephrine at 0.04 mcg/kg/m, and IV fluid at 50 mL per hour. Chest x-ray continues to show bilateral infiltrates, not much of a change overall. It is consistent with COVID-19 pneumonia. Labs include WBC count of 23.4 hemoglobin 8.6 platelets are low at 27,000, BUN of 93 creatinine 2.78. Inflammatory markers remain high including elevated LDH of 4 above 4000s CPK 591 and C- reactive protein 5.1 transaminases are high with ALT of 2759 and AST of 234 Medications include albuterol, amiodarone, vitamin C, Peridex, vitamin D3, Nimbex, Decadron 4 mg IV push daily, fentanyl, insulin, norepinephrine, Protonix, Zosyn, zinc. Patient is not on any anticoagulation therapy at this point because of his recent massive bleed requiring 5 units of packed RBCs, hemoglobin today is 8.6 Reevaluated today on12/12/2020, patient remains in the ICU, intubated and mechanically ventilated. Patient remains on assist control rate of 38 tidal volume to 75 FiO2 60% PEEP of 12 ABG today showed a pO2 of 70 pCO2 55 pH of 7.31. Patient remains on multiple drips including propofol and fentanyl, presently off Nimbex, may have to increase his propofol to 50 and fentanyl 2015 document per kilo per minute, and we will titrate dose again if the patient tolerates being off Nimbex. He is also on amiodarone drip at 0.5 mg/m. IV fluids at KVO. He is receiving enteral feedings. He is to receive 1 unit of platelets today because of low platelets. And considering the patient had negative cultures and no specific positive cultures will discontinue antibiotics. Altogether. Chest x-ray continues to show bilateral infiltrates consistent with COVID-19 pneumonia. Medications are relatively unchanged as noted above, patient is not requiring any norepinephrine, and we have decided to discontinue Nimbex this morning. WBC count today is 19.3 hemoglobin is 8 d- dimer is 2.64. Basic metabolic profile is normal BUN is 99 creatinine 2.55, slightly improved liver enzymes remain elevated with AST of 273 ALT of 11/2005, LDH is down to 3869. Patient was reevaluated today on 12/13/2020, remains in the ICU, intubated and mechanically ventilated. Patient has been off Nimbex but maintained on propofol and fentanyl, and I'm hoping I could hold sedation narcotics today in order to assess his mental status if possible today. He is on assist control rate of 38 tidal volume 375 FiO2 55% PEEP of 12 ABG showed a pO2 of 69 pCO2 of 52 pH of 7.38. He is on fentanyl at 0.5 mcg/kg/h he is also on propofol at 35 mcg/kg/m. Patient is receiving tube feeding using vital AF at 45 mL per hour. Patient is on amiodarone at 0.5 mg/m, however I will discontinue amiodarone today and switch him to oral amiodarone via orogastric tube. Platelets remain low at 33,000, hence admitted to start the patient back on anticoagulation therapy. Patient remains on compression stockings. And his renal functioning is hovering around 2.59/creatinine. No more bleeding episodes over the last for 5 days. And not requiring any transfusions. He did get 1 unit of platelets yesterday. Asked x-ray continues to show bilateral infiltrates, not much of a change in his WBC count is 17.1 hemoglobin is 7.4. D-dimer is a bit elevated at 6.38. Electrolytes are normal LDH is coming down 3681 today compared to 4006 just couple of days ago C-reactive protein is 3.4. Patient was reevaluated today on 12/14/2020, remains in the intensive care unit, remains intubated and mechanically ventilated. Ventilator settings are assist control rate of 38 tidal volume 375 FiO2 50% PEEP is 12. ABG showed a pO2 of 78 pCO2 52 pH of 7.44 hence no ventilator changes were made. Drips-carranza the patient is on propofol at 30 mcg/kg/m fentanyl 0.5 mcg/kg/h off Nimbex. Receiving enteral feeding vital HF 45/45. Plan to offer the patient is sedation holiday today and hold sedation. Yesterday patient had sedation holiday, and according to the nurse his mental status was relatively appropriate. And he was following simple instructions. Labs today were reviewed, platelets are low again, no active bleeding. And I'm still holding restarting anticoagulation therapy on this patient. CBC showed WBC count is 15.0 hemoglobin is 7.6. Platelets are 29,000. Basic metabolic profile is relatively normal BUN is 95 creatinine down to 2.11 liver enzymes are improving, ALT is down to 964 LDH is also improving Chest x-ray continues to show bilateral interstitial infiltrates, slight improvement is noted Patient was reevaluated today on 12/15/2020, remains in the ICU, intubated and mechanically ventilated. Ventilator settings are assist control rate of 38 tidal volume of 375 FiO2 50% PEEP is 12 and I cut it down to 10. Peak airway pressure is 3 to plateau pressure is 27. Chest x-ray is showing slight improvement in his bilateral interstitial in filtrates. ABG showed a pO2 of 86 pCO2 54 pH of 7.47 hence his PEEP was cut down to 10 and kept him on 50% FiO2. Drips include fentanyl at 0.25 mg/kg/h and propofol at 25 mcg/kg/m. Patient remains on enteral feeding and his IV fluid is point tenderness saline at 20 mL per hour, patient is receiving free water via orogastric tube because of hyponatremia. Labs showed metabolic alkalosis, hence I'm changing his diuretics from Lasix to Diamox. Labs : WBC count is 10.1 hemoglobin is 7.9, platelets remained low at 24,000, and I'm recommending a unit of platelets to be given today. Electrolytes showed hyponatremia and elevated bicarb of 39 BUN is 92 creatinine 1.89, slightly improved. Patient was reevaluated today on 12/16/20, remains in the ICU, intubated and mechanically ventilated. Ventilator settings are basically unchanged as noted above, assist control rate 38 tidal volume 375 FiO2 50% PEEP of 10 ABG showed a pO2 of 110 pCO2 52 pH of 7.41, hence his FiO2 was decreased down to 45%. Peak airway pressure is 30 and plateau pressure is 26 Chest x-ray continues to show bilateral infiltrates, slightly improved compared to the x-rays over the last few days. Patient remains on propofol at 3 0 mcg/kg/m and fentanyl at 0.25 mcg/kg/h. However these were placed on hold throughout the day yesterday until late last night patient was getting a bit more agitated and restless tachycardic, hence I had to place him back on propofol and fentanyl again. However today I discontinued both, and within an hour I came back to evaluate the patient, and the patient was noted to be opening his eyes, following simple instructions like squeezing hands, wiggling toes, sticking out his tongue, and his mentation seems to be very appropriate, however he is quite lethargic and slow. I recommended that we discontinue fentanyl and propofol again and if we have to use any sort of sedation and it will be Precedex. Labs today showed hemoglobin of 7.1, platelets remained low at 26,000 WBC count is 6.9. Patient will be considered for tracheostomy and PEG tube placement, hence may need a unit of packed RBCs and a unit of platelets tomorrow prior to these procedures. I'm also recommending a PICC line and hopefully could discontinue his right subclavian central line which has been there for about almost 10 days. Electrolytes are improving with better sodium of 146 bicarb is down to 34 renal functioning is improving with a BUN of 78 creatinine 1.86. Liver enzymes remain slightly elevated with ALT of 47 6 and AST of 59. LDH and C-reactive protein from today are pending. Progress note dated 12/17/2020. 60-year-old male again seen in room 256, in the intensive care unit. This patient was admitted to the hospital on November 14. His admission diagnosis was coronavirus associated pneumonia. The patient was intubated and placed on the mechanical ventilator on December 07. On that same day, the patient had a massive GI bleed requiring multiple units of blood and blood products. The patient has been on the ventilator since. Currently, he is on the volume assist control mode, rate 38, tidal volume 375, FiO2 45%, and PEEP of 10. Blood gases show a PaO2 of 106, pCO2 45, and a pH is 7.41. The patient is on 0.05 mcg/kg/m dexmedetomidine. Saline at 10 mL an hour, tube feedings are currently off, and vital AF at 45, with a goal of 45 mL an hour. The patient will have a daily interruption of sedation, and a spontaneous breathing trial, on pressure support of 10 and CPAP of 5. The saline IV will be discontinued in favor of D5W at 75 mL an hour, because of developing hypernatremia and hyperchloremia. Hopefully, we can get this patient extubated in the near future. I did get a call from respiratory, with a weaning parameters, which were excellent. This included a negative inspiratory force of -30, a rapid shallow breathing index of 30, a vital capacity of 1.04 L, respiratory rate 17, tidal volume 620 mL, and a minute volume 10.9 L/m. The patient did have a positive cuff leak, but was a bit sleepy. We will wait a bit longer for the patient to be much more awake. White count 5.6, hemoglobin 7.7, hematocrit 24.4, and platelet count 24,000. Arterial blood gases done at the time of weaning parameters show a PaO2 of 96, pCO2 of 46, and a pH is 7.4. Sodium 146, potassium 3.6, chlorides 1:15, CO2 29, anion gap 2, BUN 70, and creatinine 1.58. Chest x-ray shows diffuse bilateral infiltrates, essentially unchanged. Progress note dated 12/18/2020. 60-year-old male, again seen in room 256. The patient was admitted to the hospital on November 14. His admission diagnosis was coronavirus associated pneumonia. The patient was intubated and placed on the mechanical ventilator on December 07. On the same date, the patient had a massive GI bleed requiring mu ltiple units of blood and blood products. The patient has been on the ventilator since. Yesterday, we attempted a daily interruption of sedation and a spontaneous breathing trial. He actually did very well, but was still a bit drowsy. Through the night, the patient has been off of sedation. Currently, he is on pressure regulated volume control ventilation or VC plus, with a targeted tidal volume of 450, and inspiratory time of 0.8 seconds. His FiO2 is 45%, PEEP is 5, and respiratory rate is 38. Blood gases show a PaO2 of 78, pCO2 34, and a pH is 7.46. The patient's getting D5W at 75 mL an hour. Tube feedings are on hold. Previously, he was on vital AF at 45 mL an hour, which is goal. The patient's hemoglobin this morning was 6.8. He'll get 1 unit of packed red blood cells. He will get a set a weaning parameters, and a cuff leak. If they're good, the patient will be extubated. He seems very awake and alert. White count 4, hemoglobin 6.8, hematocrit 21.4, and platelet count is 30,000. Sodium 140, potassium 3.3, chlorides 115, CO2 25, BUN 64, and creatinine 1.44. LDH is 1807. C-reactive protein is 4. Chest x-ray shows mild cardiomegaly with left greater than right bilateral multifocal opacities. The patient CXR is essentially unchanged. COVID-19 pneumonia The patient is seen today 12/22/2020 in follow-up in the intensive care unit. He remains awake and alert. No acute distress. He is on 8 L high flow nasal cannula and maintaining O2 saturation in the 90s. He's been off the BiPAP He is extremely weak with significant critical illness polymyopathy.dust x-ray reveals increased worsening left lower lobe opacity likely reflecting pulmonary edema or chronic infiltrate. Persistent moderate pulmonary vascular congestion.white count 4.4. Hemoglobin 9.4. Platelets 138. Lymphocytes 0.9. D-dimer 3.99. Sodium 138. Potassium 4.2. Bicarb 25. Creatinine 0.93. AST 32. ALT 117. LDH 1532. C-reactive protein 15.9. He is continued on Lovenox, Decadron, vitamin supplements. Remains on bronchodilators. Blood cultures had revealed no growth. Urine culture no growth. PICC line catheter tip culture no growth. Progress note dated 12/23/2020. The patient was recently moved out of the intensive care unit, I believe yesterday. He is seen today in room 462. He remains on high flow nasal O2 at 8 L. Saturations are in the low 90s. Clinically, the patient's doing much better. He feels much less short of breath. He still has a bit of a cough. Laboratory data includes a white count of 5.1, hemoglobin 9.3, hematocrit 28.4, and a platelet count that is normal. Likewise, his electrolytes are all normal save for his BUN which is a bit elevated at 34. Chest x-ray, shows diffuse bilateral infiltrates. All her microbiologic studies are negative. The patient continues on Lovenox, Decadron, and vitamin supplements. Objective - Vital Signs Vital signs: Vital Signs Temp 97.5 F L 12/23/20 08:00 Pulse 84 12/23/20 08:00 Resp 20 12/23/20 08:00 BP 161/83 12/23/20 08:00 Pulse Ox 95 12/23/20 08:00 Intake & Output 12/22/20 12/23/20 12/23/20 18:59 06:59 18:59 Intake Total 30 200 Output Total 800 1300 Balance -770 -1100 Weight 109.5 kg Intake: IV 30 0.9NS 30 Oral 200 Output: Urine 800 1300 Other: Voiding Method Indwelling Catheter Indwelling Catheter ABP, PAP, CO, CI - Last Documented Arterial Blood Pressure 110/78 - Exam No acute distress, awake, with nasal O2 running at 8 L/m. Saturations are 95%. HEENT examination is grossly unremarkable. Neck supple. Full range of motion. No adenopathy thyromegaly or neck vein distention. Cardiovascular examination reveals regular rhythm rate. S1-S2 normal. No S3 or S4. No discernible murmur noted. Heart sounds are distant. Heart rate 84 bpm. Lungs reveal Inspiratory and expiratory rhonchi, moderate in severity. Scattered crackles noted. No wheezes. Breath sounds equal bilaterally. Abdomen soft bowel sounds are heard. No masses or tenderness. Extremities are intact. No cyanosis clubbing or edema. Skin is without rash or lesion. Neurologic examination is brief but nonfocal. He does move all 4 extremities. He is awake and alert. He does have significant muscle weakness. - Labs CBC & Chem 7: 12/23/20 06:12 12/23/20 06:12 Labs: Abnormal Lab Results - Last 24 Hours (Table) 12/22/20 12/22/20 12/23/20 Range/Units 16:19 20:08 06:12 RBC 2.98 L (4.30-5.90) m/uL Hgb 9.3 L (13.0-17.5) gm/dL Hct 28.4 L (39.0-53.0) % RDW 16.3 H (11.5-15.5) % BUN (9-20) mg/dL POC Glucose (mg/dL) 182 H 126 H (75-99) mg/dL 12/23/20 12/23/20 Range/Units 06:12 11:40 RBC (4.30-5.90) m/uL Hgb (13.0-17.5) gm/dL Hct (39.0-53.0) % RDW (11.5-15.5) % BUN 34 H (9-20) mg/dL POC Glucose (mg/dL) 110 H (75-99) mg/dL Assessment and Plan Assessment: Acute hypoxemic respiratory failure secondary to coronavirus associated pneumonia, with intubation on 12/07/2020, status post successful extubation on December 18. Acute respiratory distress syndrome, recovered. Paroxysmal atrial fibrillation. Acute GI bleed, on 12/07/2020, requiring blood and multiple blood products. Acute thrombocytopenia. Shock liver, improved. ATN/JEYSON. Obesity. Elevated inflammatory markers secondary to coronavirus infection. Metabolic alkalosis, receiving intermittent doses of Diamox, resolved. Plan: Plan dated 12/17/2020. The patient will be given a daily interruption of sedation, and a spontaneous breathing trial. Actually, he did very well on a spontaneous breathing trial, but was a bit sleepy. The patient will be assessed later. We'll DC the saline IV in favor of dextrose at 75 mL an hour, secondary to developing hypernatremia and hyperchloremia. Additional recommendations and suggestions are forthcoming. The dexmedetomidine will be held for the time being. Prognosis is guarded. We will continue to see the patient daily basis and make recommendations where appropriate. Plan dated 12/18/2020. The patient will be extubated this morning. His weaning parameters were excellent, and he had a positive cuff leak. He is awake and alert and has been off his sedation pretty much all night. Follow make recommendations were appropriate. The patient will be nothing by mouth for at least 6 hours post extubation, and after 6 hours, can start on sips of water chips of ice. If that is tolerated, the patient can have his diet advanced. The patient will receive only 1 unit of packed red blood cells. We'll hold the Lasix for now. Additional recommendations and suggestions are forthcoming. We'll continue to follow and make recommendations where appropriate. Plan dated 12/23/2020. Currently, the patient's doing well. His saturations are mid 90s on 8 L high flow oxygen. 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 Labs and x-rays are reviewed. His medications are reviewed. Microbiologic studies are all negative. The patient is feeling much improved. He will likely benefit from rehab. His Decadron dose is 4 mg a day. He is getting Lovenox 40 mg subcu daily. He remains on vitamin C, vitamin D3, and zinc. Time with Patient: Less than 30
[2020-12-23] MEDS: ALBUTEROL HFA INHALER INHALATION PRN ×2 (16:33→19:54)
[2020-12-23 16:38] LABS: Glucose,Whole Blood 179 mg/dL (75-99)
[2020-12-23] MEDS: BENZONATATE 100 MG CAP PO PRN (16:58)
[2020-12-23 20:55] LABS: Glucose,Whole Blood 149 mg/dL (75-99)
[2020-12-23] MEDS: ACETAMINOPHEN TAB 325 MG TAB PO PRN (23:30)
[2020-12-24 07:46] LABS: Glucose,Whole Blood 85 mg/dL (75-99)
[2020-12-24] MEDS: INSULIN ASPART (NovoLOG) 100 UNIT/ML VIAL SQ SCH ×4 (08:49→21:00)
[2020-12-24] MEDS: CHOLECALCIFEROL 25 MCG (1000 IU) TABLET PO SCH (08:59)
[2020-12-24] MEDS: ZINC SULFATE 220 MG CAP PO SCH (08:59)
[2020-12-24] MEDS: DEXAMETHASONE SOD PHOSPHATE 4 MG/ML 1 ML VIAL IV SCH (09:00)
[2020-12-24] MEDS: AMIODARONE 200 MG TAB PO SCH ×2 (09:00→20:24)
[2020-12-24] MEDS: BENZONATATE 100 MG CAP PO PRN (09:00)
[2020-12-24] MEDS: ENOXAPARIN 40 MG/0.4 ML SYRINGE SQ SCH (09:00)
[2020-12-24] MEDS: PANTOPRAZOLE 40 MG/10 ML VIAL IVP SCH (09:00)
[2020-12-24] MEDS: HYDROPHILIC CREAM 180 GM TUBE TOPICAL SCH (09:01)
[2020-12-24 09:11] LABS: HCT 28.2 % (39.6-50.0); MCH 29.6 pg (27.0-32.0); MCHC 31.9 g/dL (32.0-37.0); MCV 92.8 fL (80.0-97.0); Mean Platelet Volume 11.2 fL (9.5-12.2); Platelet Count 230 X 10*3/uL (140-440); RBC 3.04 X 10*6/uL (4.40-5.60); RDW 16.1 % (11.5-14.5); WBC 6.81 X 10*3/uL (4.50-10.00)
[2020-12-24] MEDS: ASCORBIC ACID 500 MG TAB PO SCH ×2 (09:11→20:24)
--- NOTE | 2020-12-24 11:22 | P.PN ---
Subjective Progress Note Date: 12/24/20 CHIEF COMPLAINT: COVID-19 pneumonia HISTORY OF PRESENT ILLNESS: Surgical service following due to GI bleed. Patient transferred out of the ICU over the weekend. Currently on a regular medical floor. He's had no active signs of bleeding. He denies any abdominal pain. Bowel movements are brown in color. Afebrile hemoglobin 9.3 down to 9.0 PHYSICAL EXAM: VITAL SIGNS: Reviewed. GENERAL: Well-developed in no acute distress. HEENT: No sclera icterus. Extraocular movements grossly intact. Moist buccal mucosa. Head is atraumatic, normocephalic. ABDOMEN: Soft. Nondistended. Nontender. NEUROLOGIC: Patient is awake ASSESSMENT: 1. Acute GI bleed 2. Acute blood loss anemia requiring blood transfusion during this admission PLAN: -Continue supportive care -Continue to monitor -Continue PPI Physician Maintenance Of Way Clerk note has been reviewed by physician. Signing provider agrees with the documented findings, assessment, and plan of care. Objective - Vital Signs Vital signs: Vital Signs Temp 97.9 F 12/24/20 01:30 Pulse 84 12/24/20 01:30 Resp 14 12/24/20 01:30 BP 143/80 12/24/20 01:30 Pulse Ox 95 12/24/20 01:30 Intake & Output 12/23/20 12/24/20 12/24/20 18:59 06:59 18:59 Intake Total 200 Output Total 1300 421 Balance -1100 -421 Weight 109.5 kg 104 kg Intake: Oral 200 Output: Urine 1300 420 Stool 1 Other: Voiding Method Indwelling Catheter Indwelling Catheter # Voids 0 # Bowel Movements 0 ABP, PAP, CO, CI - Last Documented Arterial Blood Pressure 110/78 - Labs CBC & Chem 7: 12/24/20 06:23 12/23/20 06:12 Labs: Abnormal Lab Results - Last 24 Hours (Table) 12/23/20 12/23/20 12/23/20 Range/Units 06:12 11:40 16:35 RBC (4.40-5.60) X 10*6/uL Hgb (13.0-17.0) g/dL Hct (39.6-50.0) % MCHC (32.0-37.0) g/dL RDW (11.5-14.5) % Absolute Nucleated RBC (0.00-0.00) X 10*3/uL NRBC/100 WBC Diff (0.0-0.0) /100 WBCS POC Glucose (mg/dL) 110 H 179 H (75-99) mg/dL Vitamin B12 1145.0 H (200.0-944.0) pg/mL 12/23/20 12/24/20 Range/Units 20:53 06:23 RBC 3.04 L (4.40-5.60) X 10*6/uL Hgb 9.0 L (13.0-17.0) g/dL Hct 28.2 L (39.6-50.0) % MCHC 31.9 L (32.0-37.0) g/dL RDW 16.1 H (11.5-14.5) % Absolute Nucleated RBC 0.19 H (0.00-0.00) X 10*3/uL NRBC/100 WBC Diff 2.8 H (0.0-0.0) /100 WBCS POC Glucose (mg/dL) 149 H (75-99) mg/dL Vitamin B12 (200.0-944.0) pg/mL
[2020-12-24 11:26] LABS: Basophils # (M) 0 X 10*3/uL (0.00-0.10); Eosinophils # (M) 0.07 X 10*3/uL (0.04-0.35); Lymphocytes # (M) 1.09 X 10*3/uL (0.90-5.00); Monocytes # (M) 0.41 X 10*3/uL (0.20-1.00); Myelocytes % 1 % (0-0); Neutrophils # (M) 5.18 X 10*3/uL (2.00-8.90); Neutrophils % (M) 76 %; Nucleated Red Blood Cells 4 /100 WBCS
[2020-12-24 12:33] LABS: African American GFR (CKD) 89 (>60 ml/min/1.73 sqM); Anion Gap 4 mmol/L; Blood Urea Nitrogen 29 mg/dL (9-20); Calcium 8.3 mg/dL (8.4-10.2); Carbon Dioxide 30 mmol/L (22-30); Chloride 103 mmol/L (98-107); Glucose 89 mg/dL (74-99); Non-African American GFR(CKD) 77 (>60 ml/min/1.73 sqM); Potassium 4.2 mmol/L (3.5-5.1); Sodium 137 mmol/L (137-145)
[2020-12-24 12:38] LABS: Glucose,Whole Blood 143 mg/dL (75-99)
--- NOTE | 2020-12-24 13:10 | P.PN ---
Subjective Progress Note Date: 12/24/20 Principal diagnosis: COVID-19 pneumonia On 12/20/2020 patient is seen in follow-up in intensive care unit, he was successfully weaned and extubated from mechanical ventilator on the morning of 12/18/2020. Tolerating extubation quite well so far, he is currently on 10 L per high flow nasal cannula, his pulse ox is 100%, he is breathing quite comfortably, he is awake and alert, oriented 3, he passed a swallow evaluation, and he is tolerating a regular diet. No nausea vomiting or diarrhea, did have a febrile episodes overnight, with a temp of 101.8F, low-grade fever this morning. Hemodynamically he is stable, he is not on any maintenance IV fluids. Based chest x-ray has been reviewed showing left greater than right bilateral multifocal opacities consistent with known coronary 19 pneumonia, and there is improvement in the appearance of her right lung infiltrates compared to his previous chest x-ray from yesterday. Patient remains on Lovenox 30 mg daily, there has been no recurrence of GI bleeding, he remains on IV Decadron currently on 4 mg daily. Today's labs have been reviewed, showing white blood cell count of 3.6, hemoglobin of 9.3, platelet count is improving and is up to 73 on today's labs, his lymphocyte count is improving and is up to 0.7, sodium is 138, potassium is 3.7, chloride is 111, CO2 is 25, renal profile is improving, BUN is 42 creatinine is 1.31 inflammatory markers are improving, and LDH is down to 1890, and CRP is actually up today, to 16.5 from previous 5.2. Blood urine and PICC line tip cultures have been negative. On today's evaluation on 12/21/2020 patient seen in follow-up in the intensive care unit, he is currently on 15 L high flow nasal cannula with a pulse ox of 94-98%, this can probably be weaned down further, hemodynamically stable, he is in sinus mechanism, with a rate of 94, blood pressures 139 was 72, not on any vasopressor support. Maintenance IV fluids are with 0.9 normal saline at a rate of 20 ML per hour, breathing comfortably, does have cough with occasional sputum production. Today's chest x-ray has been reviewed showing relatively stable findings with bilateral multifocal opacities. Patient has not had recurrence of GI bleeding since 12/07/2020, patient is currently tolerating oral diet, although he is only able to take in small amounts of food. He stated that he had a bowel movement, not melanotic, no evidence of blood in it. Today's labs are still pending. The patient is extremely weak. His been working with physical therapy but has not been up in a chair yet. Remains on Decadron 4 mg daily, COVID-19 vitamins, and prophylactic anticoagulation in the form of Lovenox 40 mg subcu daily. On 12/24/2020 patient seen in follow-up on medical surgical floor. He is awake and alert, in no acute distress, she is breathing comfortably, his FiO2 is down to 5 L his pulse ox is 90-95%, afebrile, no hemodynamically instability. He remains generally weak, but appears to be in no acute distress, he is in sinus mechanism, controlled rate, he passed a swallow evaluation. He is tolerating regular diet, his last chest x-ray shows interval worsening the left lower lobe opacity that could reflect pulmonary edema or chronic infiltrate. And there was persistent moderate pulmonary vascular congestion. Patient has been given intermittent doses of Lasix. He is in -1.5 L net fluid balance over the last 24 hours. Patient remains on Lovenox 40 mg daily, he has not had recurrence of A. fib. He has not had episodes of rebleeding. Today's labs show white blood cell count of 6.8, hemoglobin of 9.0, platelet count is 230, electrolytes are within normal limits BUN is 29 creatinine is 1.04. Objective - Vital Signs Vital signs: Vital Signs Temp 97.9 F 12/24/20 01:30 Pulse 84 12/24/20 01:30 Resp 14 12/24/20 01:30 BP 143/80 12/24/20 01:30 Pulse Ox 90 L 12/24/20 08:25 Intake & Output 12/23/20 12/24/20 12/24/20 18:59 06:59 18:59 Intake Total 200 Output Total 1300 421 680 Balance -[id number] -523 Weight 109.5 kg 104 kg Intake: Oral 200 Output: Urine 1300 420 680 Stool 1 Other: Voiding Method Indwelling Catheter Indwelling Catheter Indwelling Catheter # Voids 0 1 # Bowel Movements 0 1 ABP, PAP, CO, CI - Last Documented Arterial Blood Pressure 110/78 - Exam GENERAL EXAM: 60-year-old white male, alert, oriented 3, currently on 5 L per her nasal cannula with a pulse ox of 90-94% HEAD: Normocephalic/atraumatic. EYES: Normal reaction of pupils, equal size. Conjunctiva pink, sclera white. NOSE: Clear with pink turbinates. THROAT: No erythema or exudates. NECK: No masses, no JVD, no thyroid enlargement, no adenopathy. CHEST: No chest wall deformity. Symmetrical expansion. LUNGS: Equal air entry with no crackles, wheeze, rhonchi or dullness. CVS: Regular rate and rhythm, normal S1 and S2, no gallops, no murmurs, no rubs ABDOMEN: Soft, nontender. No hepatosplenomegaly, normal bowel sounds, no gu arding or rigidity. EXTREMITIES: No clubbing, no generalized edema edema, no cyanosis, 2+ pulses and upper and lower extremities. MUSCULOSKELETAL: Muscle strength and tone normal. SPINE: No scoliosis or deformity SKIN: No rashes CENTRAL NERVOUS SYSTEM: Alert and oriented 3, responding to questions appropriately tone is normal in all 4 extremities. - Labs CBC & Chem 7: 12/24/20 06:23 12/24/20 06:23 Labs: Abnormal Lab Results - Last 24 Hours (Table) 12/23/20 12/23/20 12/23/20 Range/Units 06:12 16:35 20:53 RBC (4.40-5.60) X 10*6/uL Hgb (13.0-17.0) g/dL Hct (39.6-50.0) % MCHC (32.0-37.0) g/dL RDW (11.5-14.5) % Absolute Nucleated RBC (0.00-0.00) X 10*3/uL Myelocytes % (0-0) % NRBC/100 WBC Diff (0.0-0.0) /100 WBCS BUN (9-20) mg/dL POC Glucose (mg/dL) 179 H 149 H (75-99) mg/dL Calcium (8.4-10.2) mg/dL Vitamin B12 1145.0 H (200.0-944.0) pg/mL 10/18/21 10/18/21 10/18/21 Range/Units 06:23 06:23 12:18 RBC 3.04 L (4.40-5.60) X 10*6/uL Hgb 9.0 L (13.0-17.0) g/dL Hct 28.2 L (39.6-50.0) % MCHC 31.9 L (32.0-37.0) g/dL RDW 16.1 H (11.5-14.5) % Absolute Nucleated RBC 0.19 H (0.00-0.00) X 10*3/uL Myelocytes % 1 H (0-0) % NRBC/100 WBC Diff 2.8 H (0.0-0.0) /100 WBCS BUN 29 H (9-20) mg/dL POC Glucose (mg/dL) 143 H (75-99) mg/dL Calcium 8.3 L (8.4-10.2) mg/dL Vitamin B12 (200.0-944.0) pg/mL Assessment and Plan Plan: #1. acute Covid 19 related pneumonia. Patient is not vaccinated. The patient has not received any outpatient treatments for Covid 19 infection. Diagnosis established during this current admission. Started on Bariticinib on 11/15/2020 in view of worsening hypoxic respiratory failure. Patient was outside the window for Remdesivir. Intubated on 12/07/2020, successfully weaned and extubated on 12/18/2020. Tolerating extubation quite well so far, which is down to 5 L. #2. acute hypoxic respiratory failure which has significantly progressed since admission, and patient is currently on Airvo at 60 L and FiO2 of 94% in addition to nonrebreather mask, and his pulse ox is 85%. In view of worsening chest x- ray findings and worsening hypoxia patient will be transferred to the intensive care unit today on 11/22/2020, intubated on 12/07/2020, extubated 12/18/2020 #3. Paroxysmal atrial fibrillation, with a rapid ventricular response, remains on amiodarone, he failed cardioversion. Currently in sinus mechanism, with controlled rate. #4. Acute hemorrhagic shock related to acute GI bleeding with possibility of upper GI bleed. Eliquis is on hold, patient received aggressive fluid resuscitation, 4 units of packed red blood cells and Kcentra. Eliquis remains on hold. Patient is in sinus mechanism, platelet count remains low but improving, currently #5. Acute thrombocytopenia, likely consumptive, no clear indication for DIC, the resident coagulation profile is within normal limits, platelet count is improving. #6. Possibility of a septic shock less likely, patient was empirically covered with Zosyn and vancomycin. Currently not on any antibiotics. All cultures are negative #7. Acute leukocytosis, resolved #8. Transaminitis related to sepsis/hypotension and shock, improved #9. Limited pneumomediastinum evident on the computed tomography scan of the abdomen #10. Acute kidney injury with today's creatinine up to 2.91, related to ATN, nephrology is on the case, improving #11. Obesity with a BMI of 38. #12. Increased inflammatory markers related to acute COVID-19 pneumonia #13. Increased d-dimer, related to viral pneumonia, was on Eliquis, currently just on prophylactic Lovenox for recent history of hemorrhagic shock related to acute GI bleeding Plan: Continue weaning FiO2 Encourage deep breathing and coughing, and incentive spirometry use We can discontinue Decadron We will continue Lovenox to 40 mg daily There has been no recurrence of bleeding Today's labs have been noted Continue daily physical therapy sessions, strength training, gait training Supervision with meals, aspiration precautions Follow-up labs tomorrow Increase activity as tolerated I performed a history & physical examination of the patient and discussed their management with my nurse practitioner, Jovita Thomas. I reviewed the nurse practitioner's note and agree with the documented findings and plan of care. Lung sounds are positive for diminished breath sounds throughout the lung felix. The findings and the impression was discussed with the patient. I attest to the documentation by the nurse practitioner. Time with Patient: Less than 30
[2020-12-24 14:35] VITALS: BMI 34.8
--- NOTE | 2020-12-24 15:23 | P.PN ---
Subjective Progress Note Date: 12/24/20 HISTORY OF PRESENT ILLNESS This is a pleasant 60-year-old gentleman patient of Dr. Ridge Christina. He doesn't see a physician often and does not note any medical diseases, except for obesity. He comes seen secondary to fever and chills, cough, starting December 06 first, along with muscle aches, lack of appetite and diarrhea. he was tested for call bid November 08, which required at week of reporting, subsequently was sent to emergency room secondary to worsening symptoms, including dyspnea on exertion, shortness of breath and worsening cough without hemoptysis. Fever, sh ortness of breath lingers, no treatment given to him prior to this admission. The is vaccinated, but the patient is not. He does not believe in vaccines at that time. He comes in the emergency room, with hypoxemia, with very minimal conversational dyspnea, chest x-ray, shows pulmonary infiltrate consistent with Covid pneumonia, oxygen currently is at 6 L nasal cannula, d-dimer was 0.6, LFTs are minimally elevated, 64 AST, lactic acid 2.0 sodium 132, creatinine of 0.9, glucose of 122, LDH of 888, CRP of 5.7. Urine protein noted, without hematuria or proteinuria. Covid was again retested 11/14, PCR is positive. Consult to Dr. Eduardo and pulmonary,, Patient was initially admitted to the [facility] floor but continued to have hypoxia with drop in his oxygenation level despite use of airflow and nonrebreather. He completed a course of Baricitnib and was treated also with dexamethasone, Lovenox and supplements. Patient was eventually transitioned to ICU on 11/25 with BiPAP and patient at times seemed to be stabilized and improving but then he developed a GI bleed required blood transfusion and vasopressor support. He was subsequently intubated on 12/07. Other conditions complicating his stay include thrombocytopenia, atrial fibrillation with RVR converted to sinus rhythm and kidney injury. 12/18: Patient remains in intensive care unit and was successfully extubated thi s morning and is currently on high flow nasal cannula at 10 L with pulse ox is 93%. He remains an sinus rhythm, afebrile, blood pressure 137/62. One unit of packed RBCs ordered for hemoglobin of 6.8. BUN 64 and creatinine 1.44. Blood sugars are running 101-138. Repeat inflammatory markers: LDH 1857, C-reactive protein 4. Chest x-ray reveals mild cardiomegaly with left greater than right bilateral multifocal opacities consistent with Covid. Nephrology is taking the patient off Diamox. 12/19: She remains in the intensive care unit for breathing status seems to be stable he is currently on O2 at 12 L nasal cannula with pulse ox in the low 90s. Blood pressure 167/74, respiratory rate 27, heart rate in the 80s and 90s, afebrile. desk monitor is sinus rhythm. desk monitor is He is feeling tired. PICC line placed this morning for IV access and triple lumen catheter discontinued. PT OT to work with patient most likely will require subacute rehab. 12/20: Patient remains in the intensive care unit. His been ordered for 40 of Lasix and had 1.7 L of urine out. Patient has been seen by [facility] for stage II pressure ulcer left and right buttocks with augmentations for triad and sacral dressing. Also patient has a nonhealing ulcer to the left upper extremity with recommendations for triad as well. Patient has been hemodynamically stable and off vasopressors, no IV fluids. He is currently on 12 L high flow nasal cannula with pulse ox 95%, he's been afebrile, heart rate in the 90s, respiratory rate 27-31, blood pressure 146/72. WBC 3.6, hemoglobin 9.3, platelet count 73. BUN 42 creatinine 1.31. 12/21: Patient is seen today in the emergency center and recliner with legs elevated. He continues to have significant weakness, is trying to eat more food. He has been afebrile, heart rate in the 80s, blood pressure 124/65, pulse ox 93% on 4 L nasal cannula. He had 2 bowel movements yesterday. D-dimer is 4.31. Blood sugars are running between 68 and 254. He is currently on chopped diet with nectar thick liquids and aspiration precautions. Repeat lab work including inflammatory markers ordered for tomorrow. 12/22: Lesion seen in ICU, still has shortness of breath progressive dyspnea, patient has known nausea vomiting, complaining of left toe pain, he thinks it's ingrown patient's not needing any Levemir at this time, and will be discontinued. Blood sugars are stable between 110-150 vital signs stable pulse ox 90-95% on 8 L nasal cannula LDH still elevated at 1532, CRP elevated 15 alkaline Clayton normal, ALT elevated 117, albumin 2.4 creatinine 0.9 12/23: Patient's with family members today, he has conversational dyspnea, and pulse ox is 95% on 8 L test cannula, we are going to decrease his 7 L, discharge planning is in progress, PT OT is following the patient, patient requires feeding with assistance, latter being monitored, vitals are currently stable, 12/24: Patient is seen today on the [facility] floor. He was evaluated by speech therapy and advanced to regular consistency food and thin liquids. Oxygen is currently at 7 L to be decreased to 6 L. Patient did have a bowel movement this morning his had good urine output. Mackenzie catheter to be removed today. He has been afebrile, heart rate 84, blood pressure 143/80, pulse ox 90%. WBC 6.8, hemoglobin 9, platelet count 230. Electrolytes normal. BUN 29 creatinine 1.04. TSH 4.01. Blood sugars are running between 85 and 179. Reports REVIEW OF SYSTEMS Constitutional: No fever, no chills, no night sweats. No weight change. Reports weakness, reports fatigue denies lethargy. Reports daytime sleepiness. EENT: No headache. No blurred vision or double vision, no loss of vision. No loss of Hearing, no ringing in the ears, no dizziness. No nasal drainage or congestion. No epistaxis. No sore throat. Lungs Reported shortness of breath, reported cough, no sputum production. No wheezing. Cardiovascular: No chest pain, no lower extremity edema. No palpitations. No paroxysmal nocturnal dyspnea. No orthopnea. No lightheadedness or dizziness. No syncopal episodes. Abdominal: No abdominal pain. No nausea, vomiting. None diarrhea. No constipation. No bloody or tarry stools. Reports loss of appetite. Genitourinary: No dysuria, increased frequency, urgency. No urinary retention- Mackenzie in place. Musculoskeletal: No myalgias. Generalized muscle weakness, no gait dysfunction, no frequent falls. No back pain. No neck pain. Integumentary: No wounds, no lesions. No rash or pruritus. No unusual bruising. Neurologic: No aphasia. No facial droop. No change in mentation. No head injury. No headache. No paresthesia. Psychiatric: No depression. No anxiety. Endocrine: Noted mildly elevated blood sugars. PHYSICAL EXAMINATION Gen: This is a 60-year-old obese male [facility], currently on nasal cannula O2. HEENT: Head is atraumatic, normocephalic. Pupils equal, round. Sclerae is anicteric, conjunctiva edema. NECK: Supple. No JVD. No lymphadenopathy. No thyromegaly. LUNGS: Diminished bilaterally. No wheezing. HEART: Regular rate and rhythm. No murmur. desk monitor is a sinus rhythm. ABDOMEN: obese. Soft. Bowel sounds are present. No masses. No tenderness. Mackenzie catheter with frederick urine. EXTREMITIES: 1+ bilateral pedal edema. No calf tenderness. NEUROLOGICAL: Patient is awake alert and oriented 3, severe weakness. ASSESSMENT AND PLAN 1. Acute respiratory failure: Secondary to COVID-19 requiring intubation and mechanical ventilation, with possible secondary bacterial pneumonia. Patient has been successfully extubated. Continue albuterol inhaler 2 puffs as needed, Lovenox 40 mg subcu daily, vitamin supplements. Consult with pulmonary medicine appreciated. 2. Sepsis (POA) secondary to COVID-19 pneumonia, with acute hypoxemic respiratory failure, diagnosis was of 11/08/2020. 3. Moderate protein calorie malnutrition secondary to poor oral intake. Continue protein supplements. 4. New-onset atrial fibrillation with RVR, paroxysmal atrial fibrillation. Currently in sinus rhythm. Continue oral amiodarone 200 mg twice daily, Eliquis placed on hold due to GI bleed. Echocardiogram as above. 5. Thrombocytopenia secondary to sepsis, improving. No anticoagulation due to thrombocytopenia, GI bleed. Transfusion of 2 unit of platelets. 6. Acute GI bleed with acute blood loss anemia. Eliquis placed on hold, total of 6 units packed RBCs, IV fluid boluses, consult with Dr. Ojeda appreciated. EGD and colonoscopy once patient is stabilized, Dr. Lester is following. 7. Acute hypovolemic shock or septic shock requiring vasopressors, massive IV fluid resuscitation. Patient is off vasopressors and blood pressure has been stable. 8. Acute kidney injury with ATN secondary to septic shock. Consult with nephrology appreciated. Patient has had good urine output. 9. Metabolic acidosis secondary to acute kidney injury. 10. Severe hyperkalemia secondary to acute kidney injury. Followed by nephrology. 11. Shock liver secondary to hypotension. Monitor liver function test. 12. DVT prophylaxis. 13. GI prophylaxis. Protonic. 14. BPH. Mackenzie catheter 15. Proteinuria, unknown cause. 16. Dymetabolic syndrome, monitor for hyperglycemia, A1c 6.4. NovoLog scale every 4 hours, added Levemir 12 units twice daily. 17. Back pain. CODE Status: Full code Prognosis: guarded. DISCHARGE PLAN Home on Thursday Impression and plan of care have been directed as dictated by the signing physician. Sanam Valentine nurse practitioner acting as scribe for signing physician. Objective - Vital Signs Vital signs: Vital Signs Temp 97.9 F 12/24/20 01:30 Pulse 84 12/24/20 01:30 Resp 14 12/24/20 01:30 BP 143/80 12/24/20 01:30 Pulse Ox 95 12/24/20 01:30 Intake & Output 12/23/20 12/24/20 12/24/20 18:59 06:59 18:59 Intake Total 200 Output Total 1300 421 Balance -1100 -421 Weight 109.5 kg 104 kg Intake: Oral 200 Output: Urine 1300 420 Stool 1 Other: Voiding Method Indwelling Catheter Indwelling Catheter # Voids 0 # Bowel Movements 0 ABP, PAP, CO, CI - Last Documented Arterial Blood Pressure 110/78 - Labs CBC & Chem 7: 12/24/20 06:23 12/24/20 06:23 Labs: Abnormal Lab Results - Last 24 Hours (Table) 12/23/20 12/23/20 12/23/20 Range/Units 06:12 11:40 16:35 RBC (4.40-5.60) X 10*6/uL Hgb (13.0-17.0) g/dL Hct (39.6-50.0) % MCHC (32.0-37.0) g/dL RDW (11.5-14.5) % Absolute Nucleated RBC (0.00-0.00) X 10*3/uL NRBC/100 WBC Diff (0.0-0.0) /100 WBCS POC Glucose (mg/dL) 110 H 179 H (75-99) mg/dL Vitamin B12 1145.0 H (200.0-944.0) pg/mL 12/23/20 12/24/20 Range/Units 20:53 06:23 RBC 3.04 L (4.40-5.60) X 10*6/uL Hgb 9.0 L (13.0-17.0) g/dL Hct 28.2 L (39.6-50.0) % MCHC 31.9 L (32.0-37.0) g/dL RDW 16.1 H (11.5-14.5) % Absolute Nucleated RBC 0.19 H (0.00-0.00) X 10*3/uL NRBC/100 WBC Diff 2.8 H (0.0-0.0) /100 WBCS POC Glucose (mg/dL) 149 H (75-99) mg/dL Vitamin B12 (200.0-944.0) pg/mL
[2020-12-24 17:38] LABS: Glucose,Whole Blood 170 mg/dL (75-99)
[2020-12-24] MEDS: PANTOPRAZOLE 40 MG TABLET PO SCH (17:40)
[2020-12-24] MEDS: ACETAMINOPHEN TAB 325 MG TAB PO PRN (17:40)
[2020-12-24 21:04] LABS: Glucose,Whole Blood 169 mg/dL (75-99)
[2020-12-25 07:28] LABS: Glucose,Whole Blood 92 mg/dL (75-99)
[2020-12-25] MEDS: INSULIN ASPART (NovoLOG) 100 UNIT/ML VIAL SQ SCH ×2 (07:42→11:44)
[2020-12-25] MEDS: AMIODARONE 200 MG TAB PO SCH (07:51)
[2020-12-25] MEDS: CHOLECALCIFEROL 25 MCG (1000 IU) TABLET PO SCH (07:51)
[2020-12-25] MEDS: ASCORBIC ACID 500 MG TAB PO SCH (07:51)
[2020-12-25] MEDS: PANTOPRAZOLE 40 MG TABLET PO SCH (07:51)
[2020-12-25] MEDS: ENOXAPARIN 40 MG/0.4 ML SYRINGE SQ SCH (07:51)
[2020-12-25] MEDS: ZINC SULFATE 220 MG CAP PO SCH (07:51)
[2020-12-25] MEDS: HYDROPHILIC CREAM 180 GM TUBE TOPICAL SCH (07:52)
[2020-12-25 07:54] VITALS: RESP 18
[2020-12-25] MEDS: ACETAMINOPHEN TAB 325 MG TAB PO PRN (08:03)
[2020-12-25] MEDS ORDERED: dexAMETHasone 4 MG TAB PO SCH (09:00)
--- NOTE | 2020-12-25 10:37 | P.DS ---
Providers Date of admission: 11/14/20 15:43 Expected date of discharge: 12/25/20 Attending physician: Jerilyn Alcocer Consults: 11/14/20 15:42 Consult Physician Urgent Consulting Provider: Mandi Eduardo Consult Reason/Comments: COVID pneumonia Do you want consulting provider notified?: Yes 12/07/20 12:58 Consult Physician Stat Consulting Provider: Evangelina Reyes Consult Reason/Comments: GIB Do you want consulting provider notified?: Yes 12/07/20 13:04 Consult Physician Stat Consulting Provider: Jose Lester Consult Reason/Comments: GIB Do you want consulting provider notified?: Yes 12/08/20 08:47 Consult Physician Stat Consulting Provider: Ronald Weber Consult Reason/Comments: elevated creat. and postassium Do you want consulting provider notified?: Already Contacted 12/16/20 09:29 Consult Physician Stat Consulting Provider: Jose Lester Consult Reason/Comments: Trach and Peg placement please Do you want consulting provider notified?: Yes Primary care physician: [facility] Course: HISTORY OF PRESENT ILLNESS This is a pleasant 60-year-old gentleman patient of Dr. Rigde Christina. He doesn't see a physician often and does not note any medical diseases, except for obesity. He comes seen secondary to fever and chills, cough, starting December 06 first, along with muscle aches, lack of appetite and diarrhea. he was tested for call bid November 08, which required at week of reporting, subsequently was sent to emergency room secondary to worsening symptoms, including dyspnea on exertion, shortness of breath and worsening cough without hemoptysis. Fever, shortness of breath lingers, no treatment given to him prior to this admission. The is vaccinated, but the patient is not. He does not believe in vaccines at that time. He comes in the emergency room, with hypoxemia, with very minimal conversational dyspnea, chest x-ray, shows pulmonary infiltrate consistent with Covid pneumonia, oxygen currently is at 6 L nasal cannula, d-dimer was 0.6, LFTs are minimally elevated, 64 AST, lactic acid 2.0 sodium 132, creatinine of 0.9, glucose of 122, LDH of 888, CRP of 5.7. Urine protein noted, without hematuria or proteinuria. Covid was again retested 11/14, PCR is positive. Consult to Dr. Eduardo and pulmonary,, Patient was initially admitted to the [facility] floor but continued to have hypoxia with drop in his oxygenation level despite use of airflow and nonrebreather. He completed a course of Baricitnib and was treated also with dexamethasone, Lovenox and supplements. Patient was eventually transitioned to ICU on 11/25 with BiPAP and patient at times seemed to be stabilized and improving but then he developed a GI bleed required blood transfusion and vasopressor support. He was subsequently intubated on 12/07. Other conditions complicating his stay include thrombocytopenia, atrial fibrillation with RVR converted to sinus rhythm and kidney injury. 12/18: Patient remains in intensive care unit and was successfully extubated this morning and is currently on high flow nasal cannula at 10 L with pulse ox is 93%. He remains an sinus rhythm, afebrile, blood pressure 137/62. One unit of packed RBCs ordered for hemoglobin of 6.8. BUN 64 and creatinine 1.44. Blood sugars are running 101-138. Repeat inflammatory markers: LDH 1857, C- reactive protein 4. Chest x-ray reveals mild cardiomegaly with left greater than right bilateral multifocal opacities consistent with Covid. Nephrology is taking the patient off Diamox. 12/19: She remains in the intensive care unit for breathing status seems to be stable he is currently on O2 at 12 L nasal cannula with pulse ox in the low 90s. Blood pressure 167/74, respiratory rate 27, heart rate in the 80s and 90s, afebrile. ad copy writer is sinus rhythm. ad copy writer is He is feeling tired. PICC line placed this morning for IV access and triple lumen catheter discontinued. PT OT to work with patient most likely will require subacute rehab. 12/20: Patient remains in the intensive care unit. His been ordered for 40 of Lasix and had 1.7 L of urine out. Patient has been seen by [facility] for stage II pressure ulcer left and right buttocks with augmentations for triad and sacral dressing. Also patient has a nonhealing ulcer to the left upper extremity with recommendations for triad as well. Patient has been hemodynamically stable and off vasopressors, no IV fluids. He is currently on 12 L high flow nasal cannula with pulse ox 95%, he's been afebrile, heart rate in the 90s, respiratory rate 27-31, blood pressure 146/72. WBC 3.6, hemoglobin 9.3, platelet count 73. BUN 42 creatinine 1.31. 12/21: Patient is seen today in the emergency center and recliner with legs elevated. He continues to have significant weakness, is trying to eat more food. He has been afebrile, heart rate in the 80s, blood pressure 124/65, pulse ox 93% on 4 L nasal cannula. He had 2 bowel movements yesterday. D-dimer is 4.31. Blood sugars are running between 68 and 254. He is currently on chopped diet with nectar thick liquids and aspiration precautions. Repeat lab work including inflammatory markers ordered for tomorrow. 12/22: Lesion seen in ICU, still has shortness of breath progressive dyspnea, patient has known nausea vomiting, complaining of left toe pain, he thinks it's ingrown patient's not needing any Levemir at this time, and will be discontinued. Blood sugars are stable between 110-150 vital signs stable pulse ox 90-95% on 8 L nasal cannula LDH still elevated at 1532, CRP elevated 15 alkaline Melrose normal, ALT elevated 117, albumin 2.4 creatinine 0.9 12/23: Patient's with family members today, he has conversational dyspnea, and pulse ox is 95% on 8 L test cannula, we are going to decrease his 7 L, discharge planning is in progress, PT OT is following the patient, patient requires feeding with assistance, latter being monitored, vitals are currently stable, 12/24: [facility] He was evaluated by speech therapy and advanced to regular consistency food and thin liquids. Oxygen is currently at 7 L to be decreased to 6 L. Patient did have a bowel movement this morning his had good urine output. Mackenzie catheter to be removed today. He has been afebrile, heart rate 84, blood pressure 143/80, pulse ox 90%. WBC 6.8, hemoglobin 9, platelet count 230. Electrolytes normal. BUN 29 creatinine 1.04. TSH 4.01. Blood sugars are running between 85 and 179. 12/25: Patient is breathing status is stable and improving daily. He is now on 5 L high flow nasal cannula with pulse ox of 95%. Patient continues to have significant weakness. Cortisol level came back at 1 and we recommend a repeat cortisol level and ACTH in 30 days. Patient states that he is not sleeping well due to restless leg and Requip added as well as melatonin. Patient will be discharged today to subacute rehab in stable condition. ASSESSMENT AND PLAN 1. Acute respiratory failure: Secondary to COVID-19 requiring intubation and mechanical ventilation, with possible secondary bacterial pneumonia. Patient has been successfully extubated. 2. Sepsis (POA) secondary to COVID-19 pneumonia, with acute hypoxemic respiratory failure, diagnosis was of 11/08/2020. 3. Moderate protein calorie malnutrition secondary to poor oral intake. 4. New-onset atrial fibrillation with RVR, paroxysmal atrial fibrillation. Currently in sinus rhythm. 5. Thrombocytopenia secondary to sepsis, improving. 6. Acute GI bleed with acute blood loss anemia. 7. Acute hypovolemic shock or septic shock requiring vasopressors, massive IV fluid resuscitation. 8. Acute kidney injury with ATN secondary to septic shock. 9. Metabolic acidosis secondary to acute kidney injury. 10. Severe hyperkalemia secondary to acute kidney injury. 11. Shock liver secondary to hypotension. 12. BPH. Mackenzie catheter 13. Proteinuria, unknown cause. 14. Dymetabolic syndrome, A1c 6.4. 15. Back pain. 16. Chronic hypoxic respiratory failure requiring oxygen. DISCHARGE PLAN Subacute rehab at [facility] Greater than 35 minutes was utilized and coordinating patient's discharge. Impression and plan of care have been directed as dictated by the signing physician. Sanam Valentine nurse practitioner acting as scribe for signing physician. Plan - Discharge Summary Discharge Rx Participant: No New Discharge Prescriptions: New Pantoprazole [Protonix] 40 mg PO AC-BID tab Benzonatate [Tessalon Perles] 200 mg PO BID PRN cap PRN Reason: Cough Albuterol Inhaler [Ventolin Hfa Inhaler] 2 puff INHALATION RT-QID PRN gm PRN Reason: Shortness Of Breath Or Wheezing Ascorbic Acid [Vitamin C] 500 mg PO BID tab Amiodarone [Cordarone] 200 mg PO BID tab Enoxaparin [Lovenox] 40 mg SQ DAILY #14 each Melatonin 6 mg PO HS #30 tablet Zinc Sulfate [Orazinc] 220 mg PO DAILY cap rOPINIRole HCL [Requip] 0.75 mg PO HS #30 tablet Continue Ascorbic Acid [Vitamin C] 1,000 mg PO DAILY Cholecalciferol [Vitamin D3 (25 Mcg = 1000 Iu)] 25 mcg PO DAILY Multivitamins, Thera [Multivitamin (formulary)] 1 tab PO DAILY Discontinued Fish Oil/Dha/Epa [Fish Oil 1,200 mg Fish Oil] 1 cap PO DAILY Discharge Medication List Ascorbic Acid [Vitamin C] 1,000 mg PO DAILY 11/14/20 [History] Cholecalciferol [Vitamin D3 (25 Mcg = 1000 Iu)] 25 mcg PO DAILY 11/14/20 [History] Multivitamins, Thera [Multivitamin (formulary)] 1 tab PO DAILY 11/14/20 [History] Albuterol Inhaler [Ventolin Hfa Inhaler] 2 puff INHALATION RT-QID PRN gm 12/25/20 [Rx] Amiodarone [Cordarone] 200 mg PO BID tab 12/25/20 [Rx] Ascorbic Acid [Vitamin C] 500 mg PO BID tab 12/25/20 [Rx] Benzonatate [Tessalon Perles] 200 mg PO BID PRN cap 12/25/20 [Rx] Enoxaparin [Lovenox] 40 mg SQ DAILY #14 each 12/25/20 [Rx] Melatonin 6 mg PO HS #30 tablet 12/25/20 [Rx] Pantoprazole [Protonix] 40 mg PO AC-BID tab 12/25/20 [Rx] Zinc Sulfate [Orazinc] 220 mg PO DAILY cap 12/25/20 [Rx] rOPINIRole HCL [Requip] 0.75 mg PO HS #30 tablet 12/25/20 [Rx] Follow up Appointment(s)/Referral(s): [facility], [NON-STAFF] - 1-2 Days Jovanny Christina MD [Primary Care Provider] - 1 Week (after discharge from rehab) Patient Instructions/Handouts: Coronavirus Disease 2019 (COVID-19) Activity/Diet/Wound Care/Special Instructions: Remove Mackenzie catheter in 1 week, voiding trial. Discharge Disposition: TRANSFER TO SNF/ECF
--- NOTE | 2020-12-25 11:23 | P.PN ---
Subjective Progress Note Date: 12/25/20 CHIEF COMPLAINT: COVID-19 pneumonia HISTORY OF PRESENT ILLNESS: Surgical service following due to GI bleed. Currently on a regular medical floor. He's had no active signs of bleeding. He denies any abdominal pain. Bowel movements are brown in color. Afebrile HGB 9.0 yesterday. Patient scheduled to be discharged today. PHYSICAL EXAM: VITAL SIGNS: Reviewed. GENERAL: Well-developed in no acute distress. HEENT: No sclera icterus. Extraocular movements grossly intact. Moist buccal mucosa. Head is atraumatic, normocephalic. ABDOMEN: Soft. Nondistended. Nontender. NEUROLOGIC: Patient is awake ASSESSMENT: 1. Acute GI bleed resolved 2. Acute blood loss anemia requiring blood transfusion during this admission PLAN: -Patient can be discharged from surgical standpoint -No surgical intervention planned -Continue supportive care -Continue PPI Physician Court Liaison note has been reviewed by physician. Signing provider agrees with the documented findings, assessment, and plan of care. Objective - Vital Signs Vital signs: Vital Signs Temp 99.3 F 12/25/20 07:53 Pulse 72 12/25/20 07:53 Resp 18 12/25/20 07:53 BP 114/71 12/25/20 07:53 Pulse Ox 95 12/25/20 08:27 Intake & Output 12/24/20 12/25/20 12/25/20 18:59 06:59 18:59 Output Total 680 850 Balance -680 -850 Weight 104 kg 105 kg Output: Urine 680 850 Other: Voiding Method Indwelling Catheter External Catheter # Voids 1 # Bowel Movements 1 2 ABP, PAP, CO, CI - Last Documented Arterial Blood Pressure 110/78 - Labs CBC & Chem 7: 12/24/20 06:23 12/24/20 06:23 Labs: Abnormal Lab Results - Last 24 Hours (Table) 12/24/20 12/24/20 12/24/20 Range/Units 06:23 06:23 12:18 Myelocytes % 1 H (0-0) % BUN 29 H (9-20) mg/dL POC Glucose (mg/dL) 143 H (75-99) mg/dL Calcium 8.3 L (8.4-10.2) mg/dL 12/24/20 12/24/20 Range/Units 17:19 21:01 Myelocytes % (0-0) % BUN (9-20) mg/dL POC Glucose (mg/dL) 170 H 169 H (75-99) mg/dL Calcium (8.4-10.2) mg/dL
[2020-12-25 11:29] LABS: Glucose,Whole Blood 118 mg/dL (75-99)
--- NOTE | 2020-12-25 14:42 | P.PN ---
Subjective Progress Note Date: 12/25/20 Principal diagnosis: COVID-19 pneumonia On 12/20/2020 patient is seen in follow-up in intensive care unit, he was successfully weaned and extubated from mechanical ventilator on the morning of 12/18/2020. Tolerating extubation quite well so far, he is currently on 10 L per high flow nasal cannula, his pulse ox is 100%, he is breathing quite comfortably, he is awake and alert, oriented 3, he passed a swallow evaluation, and he is tolerating a regular diet. No nausea vomiting or diarrhea, did have a febrile episodes overnight, with a temp of 101.8F, low-grade fever this morning. Hemodynamically he is stable, he is not on any maintenance IV fluids. Based chest x-ray has been reviewed showing left greater than right bilateral multifocal opacities consistent with known coronary 19 pneumonia, and there is improvement in the appearance of her right lung infiltrates compared to his previous chest x-ray from yesterday. Patient remains on Lovenox 30 mg daily, there has been no recurrence of GI bleeding, he remains on IV Decadron currently on 4 mg daily. Today's labs have been reviewed, showing white blood cell count of 3.6, hemoglobin of 9.3, platelet count is improving and is up to 73 on today's labs, his lymphocyte count is improving and is up to 0.7, sodium is 138, potassium is 3.7, chloride is 111, CO2 is 25, renal profile is improving, BUN is 42 creatinine is 1.31 inflammatory markers are improving, and LDH is down to 1890, and CRP is actually up today, to 16.5 from previous 5.2. Blood urine and PICC line tip cultures have been negative. On today's evaluation on 12/21/2020 patient seen in follow-up in the intensive care unit, he is currently on 15 L high flow nasal cannula with a pulse ox of 94-98%, this can probably be weaned down further, hemodynamically stable, he is in sinus mechanism, with a rate of 94, blood pressures 139 was 72, not on any vasopressor support. Maintenance IV fluids are with 0.9 normal saline at a rate of 20 ML per hour, breathing comfortably, does have cough with occasional sputum production. Today's chest x-ray has been reviewed showing relatively stable findings with bilateral multifocal opacities. Patient has not had recurrence of GI bleeding since 12/07/2020, patient is currently tolerating oral diet, although he is only able to take in small amounts of food. He stated that he had a bowel movement, not melanotic, no evidence of blood in it. Today's labs are still pending. The patient is extremely weak. His been working with physical therapy but has not been up in a chair yet. Remains on Decadron 4 mg daily, COVID-19 vitamins, and prophylactic anticoagulation in the form of Lovenox 40 mg subcu daily. On 12/24/2020 patient seen in follow-up on medical surgical floor. He is awake and alert, in no acute distress, she is breathing comfortably, his FiO2 is down to 5 L his pulse ox is 90-95%, afebrile, no hemodynamically instability. He remains generally weak, but appears to be in no acute distress, he is in sinus mechanism, controlled rate, he passed a swallow evaluation. He is tolerating regular diet, his last chest x-ray shows interval worsening the left lower lobe opacity that could reflect pulmonary edema or chronic infiltrate. And there was persistent moderate pulmonary vascular congestion. Patient has been given intermittent doses of Lasix. He is in -1.5 L net fluid balance over the last 24 hours. Patient remains on Lovenox 40 mg daily, he has not had recurrence of A. fib. He has not had episodes of rebleeding. Today's labs show white blood cell count of 6.8, hemoglobin of 9.0, platelet count is 230, electrolytes are within normal limits BUN is 29 creatinine is 1.04. On the 12/25/2020 patient seen in follow-up on medical surgical floor, he is currently down to 5 L of oxygen, his pulse ox is 95%, he is resting in bed, breathing comfortably. Vital signs have been stable, patient is awake and alert, oriented 3, responding appropriately. He is breathing comfortably, his last chest x-ray was done on 12/22/2020 showed left lower lobe opacity possibly related to pulmonary edema or chronic infiltrate, there is persistent moderate pulmonary vessel congestion, no pleural effusion or pneumothorax. Clinically patient has been stable, his breathing is improving, he isunless oxygen. Labs today, yesterday's labs have been reviewed, white blood cell count was 6.8, hemoglobin was stable at 9, there has been no evidence of recurrent GI bleeding, electrolytes and renal profile was unremarkable. Patient remains on COVID-19 vitamins, he is on amiodarone, he is currently in sinus mechanism, he is on prophylactic dose Lovenox 40 mg daily. We discontinued his prednisone, his pulmonary status is stable, continues to improve. Objective - Vital Signs Vital signs: Vital Signs Temp 99.3 F 12/25/20 07:53 Pulse 72 12/25/20 07:53 Resp 18 12/25/20 07:53 BP 114/71 12/25/20 07:53 Pulse Ox 95 12/25/20 08:27 Intake & Output 12/24/20 12/25/20 12/25/20 18:59 06:59 18:59 Output Total 680 850 Balance -680 -850 Weight 104 kg 105 kg Output: Urine 680 850 Other: Voiding Method Indwelling Catheter External Catheter # Voids 1 # Bowel Movements 1 2 ABP, PAP, CO, CI - Last Documented Arterial Blood Pressure 110/78 - Exam GENERAL EXAM: 60-year-old white male, alert, oriented 3, currently on 5 L per her nasal cannula with a pulse ox of 95-96% HEAD: Normocephalic/atraumatic. EYES: Normal reaction of pupils, equal size. Conjunctiva pink, sclera white. NOSE: Clear with pink turbinates. THROAT: No erythema or exudates. NECK: No masses, no JVD, no thyroid enlargement, no adenopathy. CHEST: No chest wall deformity. Symmetrical expansion. LUNGS: Equal air entry with no crackles, wheeze, rhonchi or dullness. CVS: Regular rate and rhythm, normal S1 and S2, no gallops, no murmurs, no rubs ABDOMEN: Soft, nontender. No hepatosplenomegaly, normal bowel sounds, no guarding or rigidity. EXTREMITIES: No clubbing, no generalized edema edema, no cyanosis, 2+ pulses and upper and lower extremities. MUSCULOSKELETAL: Muscle strength and tone normal. SPINE: No scoliosis or deformity SKIN: No rashes CENTRAL NERVOUS SYSTEM: Alert and oriented 3, responding to questions appropriately tone is normal in all 4 extremities. - Labs CBC & Chem 7: 12/24/20 06:23 12/24/20 06:23 Labs: Abnormal Lab Results - Last 24 Hours (Table) 12/24/20 12/24/2021 Range/Units 17:19 21:01 11:28 POC Glucose (mg/dL) 170 H 169 H 118 H (75-99) mg/dL Assessment and Plan Plan: #1. acute Covid 19 related pneumonia. Patient is not vaccinated. The patient has not received any outpatient treatments for Covid 19 infection. Diagnosis established during this current admission. Started on Bariticinib on 11/15/2020 in view of worsening hypoxic respiratory failure. Patient was outside the window for Remdesivir. Intubated on 12/07/2020, successfully weaned and extubated on 12/18/2020. Tolerating extubation quite well so far, which is down to 5 L. #2. acute hypoxic respiratory failure which has significantly progressed since admission, and patient is currently on Airvo at 60 L and FiO2 of 94% in addition to nonrebreather mask, and his pulse ox is 85%. In view of worsening chest x- ray findings and worsening hypoxia patient will be transferred to the intensive care unit today on 11/22/2020, intubated on 12/07/2020, extubated 12/18/2020 #3. Paroxysmal atrial fibrillation, with a rapid ventricular response, remains on amiodarone, he failed cardioversion. Currently in sinus mechanism, with controlled rate. #4. Acute hemorrhagic shock related to acute GI bleeding with possibility of upper GI bleed. Eliquis is on hold, patient received aggressive fluid resuscitation, 4 units of packed red blood cells and Kcentra. Eliquis remains on hold. Patient is in sinus mechanism, platelet count remains low but improving, currently #5. Acute thrombocytopenia, likely consumptive, no clear indication for DIC, the resident coagulation profile is within normal limits, platelet count has recovered and is currently at 230,000 and 12/24/2020 #6. Possibility of a septic shock less likely, patient was empirically covered with Zosyn and vancomycin. Currently not on any antibiotics. All cultures are negative #7. Acute leukocytosis, resolved #8. Transaminitis related to sepsis/hypotension and shock, improved #9. Limited pneumomediastinum evident on the computed tomography scan of the abdomen #10. Acute kidney injury with today's creatinine up to 2.91, related to ATN, nephrology is on the case, improving #11. Obesity with a BMI of 38. #12. Increased inflammatory markers related to acute COVID-19 pneumonia #13. Increased d-dimer, related to viral pneumonia, was on Eliquis, currently just on prophylactic Lovenox for recent history of hemorrhagic shock related to acute GI bleeding Plan: Continue weaning FiO2 Breathing comfortably, FiO2 is currently down to 5 L Encourage deep breathing and coughing, and incentive spirometry use Decadron has been discontinued We will continue Lovenox to 40 mg daily There has been no recurrence of bleeding Today's labs have been noted Continue daily physical therapy sessions, strength training, gait training Supervision with meals, aspiration precautions Increase activity as tolerated From pulmonary perspective patient is stable for discharge to ECF We need outpatient follow-up with Dr. Eduardo in the office in 2-3 weeks I performed a history & physical examination of the patient and discussed their management with my nurse practitioner, Jovita Thomas. I reviewed the nurse practitioner's note and agree with the documented findings and plan of care. Lung sounds are positive for diminished breath sounds throughout the lung felix. The findings and the impression was discussed with the patient. I attest to the documentation by the nurse practitioner. Time with Patient: Less than 30
[2020-12-25] MEDS: ALBUTEROL HFA INHALER INHALATION PRN (15:54)
[2020-12-25 16:01] VITALS: BP 108/69; PULSE 80; TEMP 98.3
== END 2020-12-25 16:11 | DRG 870 ==
LOC: EC 12:53 → 4SSUR 15:43 → 2SICU 11-22 14:59 → 4SSUR 12-22 17:15
PROVIDERS: ADMIT Family Medicine; ATTEND Family Medicine
PROC: XW0DXM6 Introduction of Baricitinib into Mouth and Pharynx, External Approach, New Technology Group 6 (ICD-10-PCS; 2020-11-15)
PROC: 5A0955A Assistance with Respiratory Ventilation, Greater than 96 Consecutive Hours, High Flow/Velocity Cannula (ICD-10-PCS; 2020-11-16)
PROC: 5A09557 Assistance with Respiratory Ventilation, Greater than 96 Consecutive Hours, Continuous Positive Airway Pressure (ICD-10-PCS; 2020-11-22)
PROC: 3E0436Z Introduction of Nutritional Substance into Central Vein, Percutaneous Approach (ICD-10-PCS; 2020-11-23)
PROC: 02HV33Z Insertion of Infusion Device into Superior Vena Cava, Percutaneous Approach (ICD-10-PCS; 2020-11-23)
PROC: 03HY32Z Insertion of Monitoring Device into Upper Artery, Percutaneous Approach (ICD-10-PCS; principal; 2020-12-07)
PROC: 3E033XZ Introduction of Vasopressor into Peripheral Vein, Percutaneous Approach (ICD-10-PCS; principal; 2020-12-07)
PROC: 5A1955Z Respiratory Ventilation, Greater than 96 Consecutive Hours (ICD-10-PCS; principal; 2020-12-07)
PROC: 4A133B1 Monitoring of Arterial Pressure, Peripheral, Percutaneous Approach (ICD-10-PCS; principal; 2020-12-07)
PROC: 0BH17EZ Insertion of Endotracheal Airway into Trachea, Via Natural or Artificial Opening (ICD-10-PCS; principal; 2020-12-07)
PROC: 4A133J1 Monitoring of Arterial Pulse, Peripheral, Percutaneous Approach (ICD-10-PCS; principal; 2020-12-07)
PROC: 02HV33Z Insertion of Infusion Device into Superior Vena Cava, Percutaneous Approach (ICD-10-PCS; principal; 2020-12-07)
PROC: 30233N1 Transfusion of Nonautologous Red Blood Cells into Peripheral Vein, Percutaneous Approach (ICD-10-PCS; principal; 2020-12-07)
PROC: 0D9670Z Drainage of Stomach with Drainage Device, Via Natural or Artificial Opening (ICD-10-PCS; 2020-12-07)
PROC: 3E0G76Z Introduction of Nutritional Substance into Upper GI, Via Natural or Artificial Opening (ICD-10-PCS; 2020-12-11)
PROC: 30243R1 Transfusion of Nonautologous Platelets into Central Vein, Percutaneous Approach (ICD-10-PCS; 2020-12-12)
PROC: 02HV33Z Insertion of Infusion Device into Superior Vena Cava, Percutaneous Approach (ICD-10-PCS; 2020-12-19)
DX: A41.89 Other specified sepsis (principal); N17.0 Acute kidney failure with tubular necrosis; K72.00 Acute and subacute hepatic failure without coma; R57.8 Other shock; R65.21 Severe sepsis with septic shock; J12.82 Pneumonia due to coronavirus disease 2019; J80 Acute respiratory distress syndrome; U07.1 COVID-19; J15.9 Unspecified bacterial pneumonia; G72.81 Critical illness myopathy; J96.11 Chronic respiratory failure with hypoxia; E87.4 Mixed disorder of acid-base balance; R18.8 Other ascites; E87.0 Hyperosmolality and hypernatremia; E44.0 Moderate protein-calorie malnutrition; D62 Acute posthemorrhagic anemia; A08.39 Other viral enteritis; E87.1 Hypo-osmolality and hyponatremia; K92.2 Gastrointestinal hemorrhage, unspecified; Z68.42 Body mass index [BMI] 45.0-49.9, adult; L89.322 Pressure ulcer of left buttock, stage 2; L89.312 Pressure ulcer of right buttock, stage 2; J98.2 Interstitial emphysema; L98.491 Non-pressure chronic ulcer of skin of other sites limited to breakdown of skin; E66.01 Morbid (severe) obesity due to excess calories; I48.0 Paroxysmal atrial fibrillation; E88.81 Metabolic syndrome and other insulin resistance; I11.9 Hypertensive heart disease without heart failure; D69.59 Other secondary thrombocytopenia; E87.8 Other disorders of electrolyte and fluid balance, not elsewhere classified; E87.5 Hyperkalemia; E87.70 Fluid overload, unspecified; E87.6 Hypokalemia; N40.0 Benign prostatic hyperplasia without lower urinary tract symptoms; F41.9 Anxiety disorder, unspecified; N50.89 Other specified disorders of the male genital organs; G25.81 Restless legs syndrome; M54.9 Dorsalgia, unspecified; M79.675 Pain in left toe(s); G47.9 Sleep disorder, unspecified; T50.2X5A Adverse effect of carbonic-anhydrase inhibitors, benzothiadiazides and other diuretics, initial encounter; R80.9 Proteinuria, unspecified; Z53.8 Procedure and treatment not carried out for other reasons; Z79.899 Other long term (current) drug therapy; Z96.60 Presence of unspecified orthopedic joint implant; Z87.39 Personal history of other diseases of the musculoskeletal system and connective tissue; Z71.3 Dietary counseling and surveillance
CPT/HCPCS: 36415; 36573; 36600; 71045; 71046; 71275; 74177; 80048; 80053; 80076; 80202; 81001; 81003; 82272; 82330; 82533; 82550; 82607; 82728; 82805; 83036; 83605; 83615; 83735; 84100; 84132; 84145; 84443; 84478; 84484; 85025; 85027; 85379; 85384; 85610; 85730; 86140; 86850; 86900; 86901; 86920; 87040; 87070; 87086; 87635; 93005; 93306; 93308; 93970; 94003; 94640; 94660; 94760; 96374; 99285

== ENCOUNTER 2021-05-10 15:58 | Inpatient (IN) | payer BC ==
[2021-05-10] MEDS ORDERED: SODIUM CHLORIDE 0.9% 500 ML 500 ML IV STA (17:41)
[2021-05-10] MEDS ORDERED: PANTOPRAZOLE 40 MG/10 ML VIAL IVP STA (17:41)
--- NOTE | 2021-05-10 17:48 | ED ---
General Adult HPI - General Source: patient, family, RN notes reviewed, old records reviewed Mode of arrival: EMS Limitations: no limitations - History of Present Illness -: days(s) (1) Location: abdomen Severity scale (1-10): 5 Quality: sharp Consistency: intermittent, now resolved Improves with: none Worsens with: none Associated Symptoms: nausea/vomiting, other (Abnormal stool, floating yesterday and today hard small stool) Treatments Prior to Arrival: other (pepto) <Herman Tate - Last Filed: 05/10/21 20:52> <Natacha Araujo - Last Filed: 05/12/21 16:04> - General Chief complaint: Abdominal Pain Stated complaint: abd pain Time Seen by Provider: 05/10/21 17:35 - History of Present Illness Initial comments: 60-year-old male presents to the emergency room with complaints of sharp stabbing upper abdominal pain that started today. He had an episode of vomiting which was the probiotic that he recently taken. States that the pain is stabbing in nature and intermittent. He states that he did have a bowel movement today that was hard and small. Previously he had a bowel movement that was floating and [place] in color. He was prescribed Protonix but has not been ta zamzam it. He was recently discharged from the hospital with [place] pneumonia on a ventilator but has been home on oxygen until yesterday when he was released from home oxygen by Dr. Eduardo. He denies any hematochezia or hematemesis. No fevers. No shortness of breath or chest pain. (Herman Tate) - Related Data Home Medications Medication Instructions Recorded Confirmed Cholecalciferol [Vitamin D3 (25 25 mcg PO DAILY 11/14/20 05/10/21 Mcg = 1000 Iu)] Multivitamins, Thera [Multivitamin 1 tab PO DAILY 11/14/20 05/10/21 (formulary)] Ascorbic Acid [Vitamin C] 500 mg PO DAILY 05/10/21 05/10/21 Fluticasone Nasal [place] [Flonase 1 spray EA NOSTRIL HS 05/10/21 05/10/21 Nasal [place]] [place]-3 Fatty Acids/Fish Oil [Fish 2 cap PO DAILY 05/10/21 05/10/21 Oil 1,000 mg Softgel] Pantoprazole [Protonix] 40 mg PO DAILY 05/10/21 05/10/21 Allergies Allergy/AdvReac Type Severity Reaction Status Date / Time No Known Allergies Allergy Verified 05/10/21 18:32 Review of Systems ROS Other: All systems not noted in ROS Statement are negative. <Herman Tate - Last Filed: 05/10/21 20:52> ROS Other: All systems not noted in ROS Statement are negative. <Natacha Araujo - Last Filed: 05/12/21 16:04> ROS Statement: Those systems with pertinent positive or pertinent negative responses have been documented in the HPI. Past Medical History Past Medical History: GI Bleed Additional Past Medical History / Comment(s): covid in nov 2020 placed on ventilator, required 5-6 unit blood transfusion History of Any Multi-Drug Resistant Organisms: None Reported Past Surgical History: Joint Replacement Additional Past Surgical History / Comment(s): right shoulder surgry 10 years ago Past Psychological History: No Psychological Hx Reported Smoking Status: Never smoker Past Alcohol Use History: Occasional Past Drug Use History: None Reported <Herman Tate - Last Filed: 05/10/21 20:52> General Exam Limitations: no limitations General appearance: alert, in no apparent distress Head exam: Present: atraumatic Eye exam: Present: normal appearance. Absent: scleral icterus, conjunctival injection Respiratory exam: Present: normal lung sounds bilaterally. Absent: respiratory distress, wheezes, rales, rhonchi, stridor, chest wall tenderness, accessory muscle use, decreased breath sounds Cardiovascular Exam: Present: regular rate, normal heart sounds GI/Abdominal exam: Present: soft, distended, tenderness (Epigastric), normal bowel sounds. Absent: guarding, rebound, rigid Extremities exam: Present: normal inspection, normal capillary refill. Absent: tenderness, pedal edema, calf tenderness Back exam: Present: normal inspection, full ROM. Absent: tenderness, CVA t enderness (R), CVA tenderness (L), rash noted Neurological exam: Present: alert, oriented X3 Psychiatric exam: Present: normal affect, normal mood Skin exam: Present: warm, dry, intact. Absent: cyanosis, diaphoretic, petechi ae, pallor <Herman Tate - Last Filed: 05/10/21 20:52> Course Vital Signs 05/10/21 05/10/21 05/10/21 16:07 17:33 20:52 Temperature 98.4 F Pulse Rate 93 96 Respiratory 16 18 Rate Blood Pressure 117/67 99/67 O2 Sat by Pulse 88 L 93 L 91 L Oximetry EKG Findings - EKG Results: EKG: sinus rhythm (Ventricular rate 96, MO interval 0.168, QRS 0.85, QTC 0.412) <Herman Tate - Last Filed: 05/10/21 20:52> Medical Decision Making - Lab Data Result diagrams: 05/10/21 17:48 05/10/21 17:48 <Herman Tate - Last Filed: 05/10/21 20:52> - Lab Data Result diagrams: 05/12/21 06:31 05/12/21 06:31 <Natacha Araujo - Last Filed: 05/12/21 16:04> - Medical Decision Making CT of the abdomen and pelvis shows liver and spleen are intact, bile duct not dilated, gallbladder slightly contracted with mild stranding around the pancreas. There are inflammatory changes around the pancreas consistent with pancreatitis. Amylase 2087, lipase greater than 20,000. AST ALT alk phos also elevated. Patient was given morphine with pain control. He will be admitted to the hospital for pancreatitis. Kept NPO. Case discussed with Dr. Araujo. (Herman Tate) I was available for consultation in the emergency department. The history and physical exam were done by the midlevel provider. I was consulted for this patients care. I reviewed the case with the midlevel provider and based on their presentation of the patient, I agree with the assessment, medical decision making and plan of care as documented. Chart was dictated using [employer] dictation software. Attempts were made to correct any dictation errors however some typographical errors may persist. (Natacha Araujo) - Lab Data Lab Results 05/10/21 05/10/21 05/10/21 Range/Units 17:48 17:48 17:48 WBC 12.6 H (3.8-10.6) k/uL RBC 5.18 (4.30-5.90) m/uL Hgb 14.5 (13.0-17.5) gm/dL Hct 44.8 (39.0-53.0) % MCV 86.5 (80.0-100.0) fL MCH 27.9 (25.0-35.0) pg MCHC 32.3 (31.0-37.0) g/dL RDW 15.2 (11.5-15.5) % Plt Count 241 (150-450) k/uL MPV 7.7 Neutrophils % 86 % Lymphocytes % 6 % Monocytes % 6 % Eosinophils % 1 % Basophils % 0 % Neutrophils # 10.8 H (1.3-7.7) k/uL Lymphocytes # 0.8 L (1.0-4.8) k/uL Monocytes # 0.7 (0-1.0) k/uL Eosinophils # 0.1 (0-0.7) k/uL Basophils # 0.0 (0-0.2) k/uL PT 10.4 (9.0-12.0) sec INR 0.9 (<1.2) APTT 21.6 L (22.0-30.0) sec Sodium (137-145) mmol/L Potassium (3.5-5.1) mmol/L Chloride (98-107) mmol/L Carbon Dioxide (22-30) mmol/L Anion Gap mmol/L BUN (9-20) mg/dL Creatinine (0.66-1.25) mg/dL Est GFR (CKD-EPI)AfAm (>60 ml/min/1.73 sqM) Est GFR (CKD-EPI)NonAf (>60 ml/min/1.73 sqM) Glucose (74-99) mg/dL Plasma Lactic Acid Kadeem (0.7-2.0) mmol/L Calcium (8.4-10.2) mg/dL Total Bilirubin (0.2-1.3) mg/dL AST (17-59) U/L ALT (4-49) U/L Alkaline Phosphatase (38-126) U/L Troponin I (0.000-0.034) ng/mL Total Protein (6.3-8.2) g/dL Albumin (3.5-5.0) g/dL Amylase (30-110) U/L Lipase (23-300) U/L Urine Color Dark Yellow Urine Appearance Clear (Clear) Urine pH 5.0 (5.0-8.0) Ur Specific [place] 1.012 (1.001-1.035) Urine Protein Trace H (Negative) Urine Glucose (UA) Negative (Negative) Urine Ketones Negative (Negative) Urine Blood Negative (Negative) Urine Nitrite Negative (Negative) Urine Bilirubin 2+ H (Negative) Urine Urobilinogen <2.0 (<2.0) mg/dL Ur Leukocyte Esterase Negative (Negative) 05/10/21 05/10/21 05/10/21 Range/Units 17:48 17:48 17:48 WBC (3.8-10.6) k/uL RBC (4.30-5.90) m/uL Hgb (13.0-17.5) gm/dL Hct (39.0-53.0) % MCV (80.0-100.0) fL MCH (25.0-35.0) pg MCHC (31.0-37.0) g/dL RDW (11.5-15.5) % Plt Count (150-450) k/uL MPV Neutrophils % % Lymphocytes % % Monocytes % % Eosinophils % % Basophils % % Neutrophils # (1.3-7.7) k/uL Lymphocytes # (1.0-4.8) k/uL Monocytes # (0-1.0) k/uL Eosinophils # (0-0.7) k/uL Basophils # (0-0.2) k/uL PT (9.0-12.0) sec INR (<1.2) APTT (22.0-30.0) sec Sodium 137 (137-145) mmol/L Potassium 5.4 H (3.5-5.1) mmol/L Chloride 105 (98-107) mmol/L Carbon Dioxide 23 (22-30) mmol/L Anion Gap 9 mmol/L BUN 18 (9-20) mg/dL Creatinine 1.08 (0.66-1.25) mg/dL Est GFR (CKD-EPI)AfAm 85 (>60 ml/min/1.73 sqM) Est GFR (CKD-EPI)NonAf 73 (>60 ml/min/1.73 sqM) Glucose 120 H (74-99) mg/dL Plasma Lactic Acid [place]ade[place] 1.2 (0.7-2.0) mmol/L Calcium 9.3 (8.4-10.2) mg/dL Total Bilirubin 3.4 H (0.2-1.3) mg/dL AST 498 H (17-59) U/L ALT 399 H (4-49) U/L Alkaline Phosphatase 137 H (38-126) U/L Troponin I 0.017 (0.000-0.034) ng/mL Total Protein 7.4 (6.3-8.2) g/dL Albumin 4.4 (3.5-5.0) g/dL Amylase 2887 H* (30-110) U/L Lipase >43777 H (23-300) U/L Urine Color Urine Appearance (Clear) Urine pH (5.0-8.0) Ur Specific [place] (1.001-1.035) Urine Protein (Negative) Urine Glucose (UA) (Negative) Urine Ketones (Negative) Urine Blood (Negative) Urine Nitrite (Negative) Urine Bilirubin (Negative) Urine Urobilinogen (<2.0) mg/dL Ur Leukocyte Esterase (Negative) Disposition Decision Date: 05/10/21 Decision Time: 20:31 <Herman Tate - Last Filed: 05/10/21 20:52> <Natacha Araujo - Last Filed: 05/12/21 16:04> Clinical Impression: Pancreatitis Disposition: ADMITTED IP TO THIS HOSP
[2021-05-10 18:00] LABS: Basophils % (A) 0 %; Eosinophils # (A) 0.1 k/uL (0-0.7); Eosinophils % (A) 1 %; HCT 44.8 % (39.0-53.0); HGB 14.5 gm/dL (13.0-17.5); Lymphocytes # (A) 0.8 k/uL (1.0-4.8); Lymphocytes % (A) 6 %; MCH 27.9 pg (25.0-35.0); MCHC 32.3 g/dL (31.0-37.0); MCV 86.5 fL (80.0-100.0); Mean Platelet Volume 7.7; Monocytes # (A) 0.7 k/uL (0-1.0); Monocytes % (A) 6 %; Neutrophils # (A) 10.8 k/uL (1.3-7.7); Neutrophils % (A) 86 %; Platelet Count 241 k/uL (150-450); RBC 5.18 m/uL (4.30-5.90); RDW 15.2 % (11.5-15.5); WBC 12.6 k/uL (3.8-10.6)
[2021-05-10 18:10] LABS: ALT 399 U/L (4-49); AST 498 U/L (17-59); African American GFR (CKD) 85 (>60 ml/min/1.73 sqM); Albumin 4.4 g/dL (3.5-5.0); Alkaline Phosphatase 137 U/L (38-126); Anion Gap 9 mmol/L; Blood Urea Nitrogen 18 mg/dL (9-20); Calcium 9.3 mg/dL (8.4-10.2); Carbon Dioxide 23 mmol/L (22-30); Chloride 105 mmol/L (98-107); Glucose 120 mg/dL (74-99); Non-African American GFR(CKD) 73 (>60 ml/min/1.73 sqM); Potassium 5.4 mmol/L (3.5-5.1); Sodium 137 mmol/L (137-145); Total Bilirubin 3.4 mg/dL (0.2-1.3); Total Protein 7.4 g/dL (6.3-8.2)
[2021-05-10 18:16] LABS: INR 0.9 (<1.2); Prothrombin Time 10.4 sec (9.0-12.0)
[2021-05-10 18:19] LABS: Partial Thromboplastin Time 21.6 sec (22.0-30.0)
--- NOTE | 2021-05-10 18:33 | XR ---
EXAMINATION TYPE: XR KUB DATE OF EXAM: 05/10/2021 COMPARISON: NONE HISTORY: Abdominal pain TECHNIQUE: 2 views FINDINGS: There is no sign of intestinal obstruction or pneumoperitoneum. Fecal pattern is normal. Th ere is no evidence of a mass. Lung bases are clear. There are no pathologic calcifications over the k idneys. IMPRESSION: Nonacute abdomen.
[2021-05-10 18:38] LABS: Amylase 2887 U/L (30-110)
[2021-05-10 18:44] LABS: Lipase >20000 U/L (23-300)
[2021-05-10 18:50] LABS: Appearance,Urine Clear (Clear); Bilirubin,Urine 2+ (Negative); Blood,Urine Negative (Negative); Color,Urine Dark Yellow; Glucose,Urine (UA) Negative (Negative); Ketones,Urine Negative (Negative); Leukocyte Esterase,Urine Negative (Negative); Nitrite,Urine Negative (Negative); Protein,Urine Trace (Negative); Specific Gravity,Urine 1.012 (1.001-1.035); Urobilinogen,Urine <2.0 mg/dL (<2.0)
[2021-05-10] MEDS ORDERED: MORPHINE SULFATE 4 MG/ML SYRINGE IVP STA (18:53)
--- NOTE | 2021-05-10 20:22 | CT ---
EXAMINATION TYPE: CT abdomen pelvis w con DATE OF EXAM: 05/10/2021 COMPARISON: December 08, 2020 HISTORY: abdominal pain CT DLP: 1757.3 mGycm Automated exposure control for dose reduction was used. CONTRAST: Performed with IV Contrast, patient injected with 100 mL of Isovue 300. Images obtained from the diaphragm to the floor the pelvis with IV contrast. There is some mild subsegmental atelectasis at the lung bases. Heart is borderline enlarged. There is no pericardial effusion. There is no pleural effusion. Stomach is intact. Liver and spleen are intact. The bile duct are not dilated. Gallbladder is slightl y contracted. There is some mild fat stranding around the pancreas. There is no adrenal mass. Kidneys show satisfactory contrast opacification. There is no hydronephrosi s. There are sigmoid diverticula. Bladder distends smoothly. There is no inguinal hernia. There is so me prostate calcification. There is no free fluid in the pelvis. There is no sign of diverticulitis. There is no ascites. There is no free air. There is no sign of a bowel obstruction. Appendix appears normal. Delayed images show normal renal excretion. The lumbar vertebrae have normal alignment. There is no compression fracture. Disc spaces are normal. Bony pelvis is intact. The hip joints are intact. IMPRESSION: There are inflammatory changes around the pancreas consistent with pancreatitis which is essentially new compared to last exam. There is almost complete clearing of the extensive pulmonary edema compare d to last exam.
[2021-05-10] MEDS ORDERED: SODIUM CHLORIDE 0.9% 500 ML 500 ML IV ONE (20:33)
[2021-05-10] MEDS ORDERED: MORPHINE SULFATE 4 MG/ML SYRINGE IV PRN (20:52)
[2021-05-10] MEDS ORDERED: NALOXONE 0.4 MG/ML 1 ML VIAL IV PRN (20:52)
--- NOTE | 2021-05-10 22:47 | US ---
EXAMINATION TYPE: US gallbladder DATE OF EXAM: 05/10/2021 COMPARISON: NONE CLINICAL HISTORY: pancreatitis. abdominal pain, nausea/vomiting EXAM MEASUREMENTS: Liver Length: 13.6 cm Gallbladder Wall: 0.4 cm CBD: 0.4 cm Right Kidney: 9.9 x 5.8 x 5.5 cm technical limitations due to large amount of overlying bowel content Pancreas: Obscured by bowel gas Liver: only visualized intercostally, visualized portions appear wnl Gallbladder: multiple stones noted, thickened GB wall Evidence for sonographic Jackson's sign: no CBD: appears wnl as visualized Right Kidney: no evidence of hydronephrosis IMPRESSION: Numerous gallstones. No dilated ducts.
[2021-05-10] MEDS: SODIUM CHLORIDE 0.9% 1,000 ML IV SCH (23:58)
[2021-05-11] MEDS: SODIUM CHLORIDE 0.9% 1,000 ML IV SCH ×3 (05:46→20:34)
[2021-05-11 08:21] LABS: Albumin 3.8 g/dL (3.5-5.0); Calcium 9.2 mg/dL (8.4-10.2); Potassium 4.1 mmol/L (3.5-5.1); Total Bilirubin 1.9 mg/dL (0.2-1.3); Total Protein 6.6 g/dL (6.3-8.2)
[2021-05-11] MEDS: PANTOPRAZOLE 40 MG/10 ML VIAL IV SCH (09:27)
--- NOTE | 2021-05-11 10:33 | XR ---
EXAMINATION TYPE: XR knee complete bilateral DATE OF EXAM: 05/11/2021 CLINICAL HISTORY: pain TECHNIQUE: Three views of the lateral knees are obtained. COMPARISON: None. FINDINGS: There is no acute fracture/dislocation. The tri-compartment joint spaces appear within no rmal limits. The overlying soft tissue appears unremarkable. IMPRESSION: There is no acute fracture or dislocation.ICD 10 NO FRACTURE, INITIAL EVALUATION
--- NOTE | 2021-05-11 11:13 | P.HPIM ---
History of Present Illness H&P Date: 05/11/21 History of present illness: This is a pleasant 60-year-old gentleman patient of Dr. Ruben Christina with a past medical history significant for GI bleed, covid in November 2020 when he was on a vent, obesity. She presented to the emergency room with complaints of sharp stabbing upper abdominal pain that started yesterday. He had episodes of vomiting which she contributed to taking probiotics. Patient states that the pain was stabbing in nature and intermittent. He did have a bowel movement yesterday that was firm and small. He was prescribed Protonix however he was not taking it. Patient was recovering well at home due to the past Covid pneumonia. He was performing his activities of daily living without any difficulties. He was recently taken off his home O2 by . Patient states that the abdominal pain had occurred for approximately 3 days a came out of of the blue. With one episode of emesis. Patient states that he had the abdominal pain previously however as a result on his own. At this time patient is found resting in bed in no acute distress. Complaining of significant knee pain. Patient states that it is difficult for him to walk to the bathroom related to the knee pain. Temperature 100, heart rate 101, respirations 18, blood pressure 118/72, pulse ox 91% on 2 L. W BC 12.6, hemoglobin 14.5, potassium 4.1, BUN 20, creatinine 1.18. Lipase upon admission greater than 20,000 now 5095, amylase 2087, down to 661. CT of abdomen and pelvis with contrast shows inflammatory changes around the pancreas consistent with pancreatitis which is essentially new compared to last exam. There is almost complete clearing of the extensive pulmonary edema compared to last exam. Ultrasound of the gallbladder shows numerous gallstones. No dilated ducts. Review Of Systems: Constitutional: No fever, no chills, no night sweats. No weight change. No weakness, fatigue or lethargy. No daytime sleepiness. EENT: No headache. No blurred vision or double vision, no loss of vision. No loss of Hearing, no ringing in the ears, no dizziness. No nasal drainage or congestion. No epistaxis. No sore throat. Lungs: No shortness of breath, cough, no sputum production. No wheezing. Cardiovascular: No chest pain, no lower extremity edema. No palpitations. No paroxysmal nocturnal dyspnea. No orthopnea. No lightheadedness or dizziness. No syncopal episodes. Abdominal: no abdominal discomfort. No nausea, vomiting. no diarrhea. No constipation. No bloody or tarry stools. no loss of appetite. Genitourinary: No dysuria, increased frequency, urgency. No urinary retention. Musculoskeletal: No myalgias. No muscle weakness, no gait dysfunction, no frequent falls. No back pain. No neck pain. Integumentary: No wounds, no lesions. No rash or pruritus. No unusual bruising. No change in hair or nails. Neurologic: No aphasia. No facial droop. No change in mentation. No head injury. No headache. No paralysis. No paresthesia. Psychiatric: No depression. No anxiety. No mood swings. Endocrine: No abnormal blood sugars. No weight change. No excessive sweating or thirst. Social history: He is a former smoker he quit greater than 20 years ago, occasional EtOH, denies illicit drug use, lives at home with his , Family history: Father is of unknown known cancer with metastasized to the bone, mother is living with history of A. fib, 2 brothers who are healthy, 2 sons who are healthy. Physical examination General Appearance: Alert, cooperative, no distress, this is a 60-year-old patient appears stated age. Seen on 6 N. resting in bed Neck HEENT: Supple, no lymphadenopathy, no thyroid enlargement, no carotid bruits. Lungs: Clear to auscultation without crackles or wheezes no rhonchi, no deformity. Chest Wall: Chest wall normal expansion with deep inspiration no tenderness and no deformity was found on exam, no costochondral pain or discomfort. Heart: Regular rate and rhythm, S1, S2 normal, no murmur, rub or gallop. Back: Symmetric, no curvature, ROM normal, no CVA tenderness. Abdomen: Soft, non-tender, no rebound or rigidity, no hepatosplenomegaly. Extremities: Extremities normal, atraumatic, no cyanosis or edema. Pulses: 2+ and symmetric. Skin: Skin color, texture, tugor normal, no rashes or lesions. Neurologic: Alert oriented x3 cranial nerves II through XII intact, no motor deficit, no abnormal balance or gait Assessment and plan 1. Acute pancreatitis secondary to gallstones obstructive nature. Continue with nothing by mouth status, may have ice chips, consult general surgery and gastroenterology. Repeat CMP lipase and amylase. Continue with Dilaudid as needed for pain. Protonix 40 mg 2. Acute transaminitis hepatitis. As noted above 3. Knee pain rule out effusion. Bilateral knee x-ray impression: There is no acute fracture dislocation the tricompartment joint spaces appear within normal limits the overlying soft tissue appears unremarkable. 4. Post Covid pneumonia. 5. Obesity 6. DVT prophylaxis. Pneumatic compression sleeves 7. GI prophylaxis. Protonix Patient will be admitted for minimum of 2 nights day CODE STATUS: Full code Discharge disposition: More than likely home Impression and plan of care have been directed as dictated by the signing physician. Vandana Stoddard nurse practitioner acting as scribe for signing physician. Past Medical History Past Medical History: GI Bleed Additional Past Medical History / Comment(s): covid in nov 2020 placed on ventilator, required 5-6 unit blood transfusion History of Any Multi-Drug Resistant Organisms: None Reported Past Surgical History: Joint Replacement Additional Past Surgical History / Comment(s): right shoulder surgry 10 years ago Past Psychological History: No Psychological Hx Reported Smoking Status: Never smoker Past Alcohol Use History: Occasional Past Drug Use History: None Reported Medications and Allergies Home Medications Medication Instructions Recorded Confirmed Type Cholecalciferol [Vitamin D3 (25 25 mcg PO DAILY 11/14/20 05/10/21 History Mcg = 1000 Iu)] Multivitamins, Thera [Multivitamin 1 tab PO DAILY 11/14/20 05/10/21 History (formulary)] Ascorbic Acid [Vitamin C] 500 mg PO DAILY 05/10/21 05/10/21 History Fluticasone Nasal [place] [Flonase 1 spray EA NOSTRIL HS 05/10/21 05/10/21 History Nasal [place]] [place]-3 Fatty Acids/Fish Oil [Fish 2 cap PO DAILY 05/10/21 05/10/21 History Oil 1,000 mg Softgel] Pantoprazole [Protonix] 40 mg PO DAILY 05/10/21 05/10/21 History Allergies Allergy/AdvReac Type Severity Reaction Status Date / Time No Known Allergies Allergy Verified 05/10/21 18:32 Physical Exam Vitals: Vital Signs Temp Pulse Pulse Resp BP BP BP 05/11/21 07:00 100.0 F H 101 H 18 119/72 05/11/21 03:04 99.3 F 111 H 17 98/65 05/10/21 22:35 16 05/10/21 21:47 98.7 F 97 16 115/68 05/10/21 20:52 98.4 F 96 18 99/67 05/10/21 17:33 05/10/21 16:07 93 16 117/67 Pulse Ox 05/11/21 07:00 91 L 05/11/21 03:04 89 L 05/10/21 22:35 05/10/21 21:47 91 L 05/10/21 20:52 91 L 05/10/21 17:33 93 L 05/10/21 16:07 88 L Intake and Output 05/10/21 05/11/21 05/11/21 22:59 06:59 14:59 Other: # Voids 2 Weight 107.501 kg Results CBC & Chem 7: 05/10/21 17:48 05/11/21 07:24 Labs: Abnormal Lab Results - Last 24 Hours (Table) 05/10/21 05/10/21 05/10/21 Range/Units 17:48 17:48 17:48 WBC 12.6 H (3.8-10.6) k/uL Neutrophils # 10.8 H (1.3-7.7) k/uL Lymphocytes # 0.8 L (1.0-4.8) k/uL APTT 21.6 L (22.0-30.0) sec Potassium (3.5-5.1) mmol/L Chloride (98-107) mmol/L Glucose (74-99) mg/dL Total Bilirubin (0.2-1.3) mg/dL AST (17-59) U/L ALT (4-49) U/L Alkaline Phosphatase (38-126) U/L Amylase (30-110) U/L Lipase (23-300) U/L Urine Protein Trace H (Negative) Urine Bilirubin 2+ H (Negative) 05/10/21 05/11/21 Range/Units 17:48 07:24 WBC (3.8-10.6) k/uL Neutrophils # (1.3-7.7) k/uL Lymphocytes # (1.0-4.8) k/uL APTT (22.0-30.0) sec Potassium 5.4 H (3.5-5.1) mmol/L Chloride 109 H (98-107) mmol/L Glucose 120 H 123 H (74-99) mg/dL Total Bilirubin 3.4 H 1.9 H (0.2-1.3) mg/dL AST 498 H 269 H (17-59) U/L ALT 399 H 331 H (4-49) U/L Alkaline Phosphatase 137 H 160 H (38-126) U/L Amylase 2887 H* 661 H* (30-110) U/L Lipase >02139 H 5595 H (23-300) U/L Urine Protein (Negative) Urine Bilirubin (Negative) Thrombosis Risk Factor Assmnt - Choose All That Apply Any of the Below Risk Factors Present?: Yes Each Factor Represents 1 point: Obesity (BMI >25) Other Risk Factors: Yes Each Risk Factor Represents 2 Points: Age 61-74 years Other congenital or acquired thrombophilia - If yes, enter type in comment: No Thrombosis Risk Factor Assessment Total Risk Factor Score: 3 Thrombosis Risk Factor Assessment Level: Moderate Risk
--- NOTE | 2021-05-11 11:31 | P.GSCN ---
History of Present Illness Consult date: 05/11/21 Reason for Consult: Gallstone pancreatitis History of present illness: This is a 60-year-old male who was admitted through the emergency incomplete of abdominal pain. Patient was Cholelithiasis. Patient also has evidence proctitis. His liver enzymes are slightly elevated. Past Medical History Past Medical History: GI Bleed Additional Past Medical History / Comment(s): covid in nov 2020 placed on ventilator, required 5-6 unit blood transfusion History of Any Multi-Drug Resistant Organisms: None Reported Past Surgical History: Joint Replacement Additional Past Surgical History / Comment(s): right shoulder surgry 10 years ago Past Psychological History: No Psychological Hx Reported Smoking Status: Never smoker Past Alcohol Use History: Occasional Past Drug Use History: None Reported Medications and Allergies Home Medications Medication Instructions Recorded Confirmed Type Cholecalciferol [Vitamin D3 (25 25 mcg PO DAILY 11/14/20 05/10/21 History Mcg = 1000 Iu)] Multivitamins, Thera [Multivitamin 1 tab PO DAILY 11/14/20 05/10/21 History (formulary)] Ascorbic Acid [Vitamin C] 500 mg PO DAILY 05/10/21 05/10/21 History Fluticasone Nasal [place] [Flonase 1 spray EA NOSTRIL HS 05/10/21 05/10/21 History Nasal [place]] [place]-3 Fatty Acids/Fish Oil [Fish 2 cap PO DAILY 05/10/21 05/10/21 History Oil 1,000 mg Softgel] Pantoprazole [Protonix] 40 mg PO DAILY 05/10/21 05/10/21 History Allergies Allergy/AdvReac Type Severity Reaction Status Date / Time No Known Allergies Allergy Verified 05/10/21 18:32 Surgical - Exam Vital Signs Pulse Resp BP Pulse Ox 93 16 117/67 88 L 05/10/21 16:07 05/10/21 16:07 05/10/21 16:07 05/10/21 16:07 - General well developed, well nourished, no distress - Eyes PERRL - ENT normal pinna - Neck no masses - Respiratory normal expansion - Cardiovascular Rhythm: regular - Abdomen Tenderness through the epigastric area. Abdomen: soft Results - Labs 05/10/21 17:48 05/11/21 07:24 Abnormal Lab Results - Last 24 Hours (Table) 05/10/21 05/10/21 05/10/21 Range/Units 17:48 17:48 17:48 WBC 12.6 H (3.8-10.6) k/uL Neutrophils # 10.8 H (1.3-7.7) k/uL Lymphocytes # 0.8 L (1.0-4.8) k/uL APTT 21.6 L (22.0-30.0) sec Potassium (3.5-5.1) mmol/L Chloride (98-107) mmol/L Glucose (74-99) mg/dL Total Bilirubin (0.2-1.3) mg/dL AST (17-59) U/L ALT (4-49) U/L Alkaline Phosphatase (38-126) U/L Amylase (30-110) U/L Lipase (23-300) U/L Urine Protein Trace H (Negative) Urine Bilirubin 2+ H (Negative) 05/10/21 05/11/21 Range/Units 17:48 07:24 WBC (3.8-10.6) k/uL Neutrophils # (1.3-7.7) k/uL Lymphocytes # (1.0-4.8) k/uL APTT (22.0-30.0) sec Potassium 5.4 H (3.5-5.1) mmol/L Chloride 109 H (98-107) mmol/L Glucose 120 H 123 H (74-99) mg/dL Total Bilirubin 3.4 H 1.9 H (0.2-1.3) mg/dL AST 498 H 269 H (17-59) U/L ALT 399 H 331 H (4-49) U/L Alkaline Phosphatase 137 H 160 H (38-126) U/L Amylase 2887 H* 661 H* (30-110) U/L Lipase >12738 H 5595 H (23-300) U/L Urine Protein (Negative) Urine Bilirubin (Negative) Diabetes panel 05/10/21 05/11/21 Range/Units 17:48 07:24 Sodium 137 139 (137-145) mmol/L Potassium 5.4 H 4.1 (3.5-5.1) mmol/L Chloride 105 109 H (98-107) mmol/L Carbon Dioxide 23 27 (22-30) mmol/L BUN 18 20 (9-20) mg/dL Creatinine 1.08 1.18 (0.66-1.25) mg/dL Glucose 120 H 123 H (74-99) mg/dL Calcium 9.3 9.2 (8.4-10.2) mg/dL AST 498 H 269 H (17-59) U/L ALT 399 H 331 H (4-49) U/L Alkaline Phosphatase 137 H 160 H (38-126) U/L Total Protein 7.4 6.6 (6.3-8.2) g/dL Albumin 4.4 3.8 (3.5-5.0) g/dL Calcium panel 05/10/21 05/11/21 Range/Units 17:48 07:24 Calcium 9.3 9.2 (8.4-10.2) mg/dL Albumin 4.4 3.8 (3.5-5.0) g/dL Pituitary panel 05/10/21 05/11/21 Range/Units 17:48 07:24 Sodium 137 139 (137-145) mmol/L Potassium 5.4 H 4.1 (3.5-5.1) mmol/L Chloride 105 109 H (98-107) mmol/L Carbon Dioxide 23 27 (22-30) mmol/L BUN 18 20 (9-20) mg/dL Creatinine 1.08 1.18 (0.66-1.25) mg/dL Glucose 120 H 123 H (74-99) mg/dL Calcium 9.3 9.2 (8.4-10.2) mg/dL Adrenal panel 05/10/21 05/11/21 Range/Units 17:48 07:24 Sodium 137 139 (137-145) mmol/L Potassium 5.4 H 4.1 (3.5-5.1) mmol/L Chloride 105 109 H (98-107) mmol/L Carbon Dioxide 23 27 (22-30) mmol/L BUN 18 20 (9-20) mg/dL Creatinine 1.08 1.18 (0.66-1.25) mg/dL Glucose 120 H 123 H (74-99) mg/dL Calcium 9.3 9.2 (8.4-10.2) mg/dL Total Bilirubin 3.4 H 1.9 H (0.2-1.3) mg/dL AST 498 H 269 H (17-59) U/L ALT 399 H 331 H (4-49) U/L Alkaline Phosphatase 137 H 160 H (38-126) U/L Total Protein 7.4 6.6 (6.3-8.2) g/dL Albumin 4.4 3.8 (3.5-5.0) g/dL Assessment and Plan Assessment: Gallstone pancreatitis. There has some improvement in the patient's liver function tests. Patient will have repeat liver enzymes tomorrow. He will undergo laparoscopically cholecystectomy once his pancreatitis has improved. If the patient has elevation in his liver function tests he may require ERCP.
[2021-05-11] MEDS: HYDROmorphone 1 MG/ML 1 ML SYRINGE IVP PRN ×2 (12:42→20:33)
--- NOTE | 2021-05-11 13:59 | P.CNOR ---
History of Present Illness - [facility] Consult date: 05/11/21 Consult reason: joint pain (Bilateral knee pain) History of present illness: Patient is a 60-year-old male who was admitted to [facility] on 05/10/2021 with regards to pancreatitis/cholecystitis. He is being followed by both internal medicine and general surgery at this time. Patient states that since being in the hospital he is developed significant pain involving the bilateral knees. X-rays were taken of both knees, these were not weightbearing films. Orthopedic team was consulted. patient was evaluated today at bedside, he is lying flat in minimal discomfort. He has posterior condylar legs which seems to have helped with his symptoms. Discussed with nursing, they have used ice packs with minimal relief. Patient denies any recent trauma, this to include falls. Patient states that he was in the hospital back in November with COVID-19, he was on the ventilator in the ICU, he was then discharged to rehab. Patient states he's been home rehabbing since late January. Patient denies any recent changes in his activity levels at home. He denies any previous surgery involving the bilateral knees. He describes the pain as a significant ache, he feels like someone hit him with a bat in both his knees. He describes most of the pain on the medial aspect of the bilateral knees. Patient denies any hip pain at this time. Denies any back pain at this time. He denies any pain involving the upper extremities at this time. He denies any lower leg pain, this including feet or ankle. He denies any loss of bowel or bladder function at this time. He denies any numbness or tingling in the bilateral upper or lower extremities. Review of Systems Constitutional: Reports as per HPI Past Medical History Past Medical History: GI Bleed Additional Past Medical History / Comment(s): covid in nov 2020 placed on ventilator, required 5-6 unit blood transfusion History of Any Multi-Drug Resistant Organisms: None Reported Past Surgical History: Joint Replacement Additional Past Surgical History / Comment(s): right shoulder surgry 10 years ago Past Psychological History: No Psychological Hx Reported Smoking Status: Never smoker Past Alcohol Use History: Occasional Past Drug Use History: None Reported Medications and Allergies Home Medications Medication Instructions Recorded Confirmed Type Cholecalciferol [Vitamin D3 (25 25 mcg PO DAILY 11/14/20 05/10/21 History Mcg = 1000 Iu)] Multivitamins, Thera [Multivitamin 1 tab PO DAILY 11/14/20 05/10/21 History (formulary)] Ascorbic Acid [Vitamin C] 500 mg PO DAILY 05/10/21 05/10/21 History Fluticasone Nasal [place] [Flonase 1 spray EA NOSTRIL HS 05/10/21 05/10/21 History Nasal [place]] [place]-3 Fatty Acids/Fish Oil [Fish 2 cap PO DAILY 05/10/21 05/10/21 History Oil 1,000 mg Softgel] Pantoprazole [Protonix] 40 mg PO DAILY 05/10/21 05/10/21 History Allergies Allergy/AdvReac Type Severity Reaction Status Date / Time No Known Allergies Allergy Verified 05/10/21 18:32 Physical Examination Bilateral lower extremities No obvious open lesions, sores, areas of erythema present. There are mild effusions present in both knees. Patient demonstrates point tenderness along the medial joint line in both knees. Patient is nontender along the lateral joint line. There is some generalized discomfort on the medial and lateral patellar facet bilaterally with palpation. He is nontender with palpation of the lower leg, this included foot or ankle Logroll maneuver the extremities reproduces no groin pain. He has a negative straight leg raise bilaterally. Active and passive range of motion of the knee reproduces minimal discomfort, and able to passively extend fully and flex past 120 with minimal discomfort. He demonstrates a positive Sean test on the left knee. Strength: 55 strength appreciated with knee extension, knee flexion, plantar flexion, dorsiflexion, EHL, FHL bilateral lower extremities 45 strength appreciated the bilateral lower extremities with hip flexion Sensory exam to light touch throughout the bilateral extremities is intact, no apparent focal defects Dorsalis pedis pulses 2+ bilateral Results - Labs Labs: Abnormal Lab Results - Last 24 Hours (Table) 05/10/21 05/10/21 05/10/21 Range/Units 17:48 17:48 17:48 WBC 12.6 H (3.8-10.6) k/uL Neutrophils # 10.8 H (1.3-7.7) k/uL Lymphocytes # 0.8 L (1.0-4.8) k/uL APTT 21.6 L (22.0-30.0) sec Potassium (3.5-5.1) mmol/L Chloride (98-107) mmol/L Glucose (74-99) mg/dL Total Bilirubin (0.2-1.3) mg/dL AST (17-59) U/L ALT (4-49) U/L Alkaline Phosphatase (38-126) U/L Amylase (30-110) U/L Lipase (23-300) U/L Urine Protein Trace H (Negative) Urine Bilirubin 2+ H (Negative) 05/10/21 05/11/21 Range/Units 17:48 07:24 WBC (3.8-10.6) k/uL Neutrophils # (1.3-7.7) k/uL Lymphocytes # (1.0-4.8) k/uL APTT (22.0-30.0) sec Potassium 5.4 H (3.5-5.1) mmol/L Chloride 109 H (98-107) mmol/L Glucose 120 H 123 H (74-99) mg/dL Total Bilirubin 3.4 H 1.9 H (0.2-1.3) mg/dL AST 498 H 269 H (17-59) U/L ALT 399 H 331 H (4-49) U/L Alkaline Phosphatase 137 H 160 H (38-126) U/L Amylase 2887 H* 661 H* (30-110) U/L Lipase >16612 H 5595 H (23-300) U/L Urine Protein (Negative) Urine Bilirubin (Negative) H & H 05/10/21 Range/Units 17:48 Hgb 14.5 (13.0-17.5) gm/dL Hct 44.8 (39.0-53.0) % Coagulation 05/10/21 Range/Units 17:48 INR 0.9 (<1.2) Result Diagrams: 05/10/21 17:48 05/11/21 07:24 - Diagnostic results Knee x-ray: report reviewed, image reviewed (Images demonstrate no fractures or dislocation of the bilateral knees. Mild osteoarthritic changes affecting the bilateral knees, medial compartment along with patellofemoral compartment.) Assessment and Plan Assessment: Bilateral knee pain Mild bilateral knee effusions Bilateral knee osteoarthritis History of COVID-19 infection Other medical comorbidities Plan: I was able to discuss both physical exam findings and imaging studies my a ttending Dr. Bravo. No emergent orthopedic surgical intervention warranted at this time. Likely an exacerbation of the patient's osteoarthritis. Discussed with nursing the possibility of using a dose of IV Toradol along with a daily anti- inflammatory. Nursing will discuss with other medical specialties the option of using these medications with his current medical condition. Recommend icing and elevating the bilateral lower extremities Weight-bear as tolerated, possible PT/OT evaluation GI and DVT prophylaxis per primary medical service Other medical records specialist recommendations Discharge planning: Recommend follow-up in the outpatient setting with Dr. Bravo discuss osteoarthritis in other treatment options Time with Patient: Less than 30
[2021-05-11] MEDS ORDERED: KETOROLAC 30 MG/ML 1 ML VIAL IVP STA (15:42)
[2021-05-11] MEDS: FLUTICASONE 50MCG/SPRAY NASAL 16GM EA NOSTRIL SCH (19:45)
[2021-05-12] MEDS: SODIUM CHLORIDE 0.9% 1,000 ML IV SCH ×3 (03:34→19:43)
[2021-05-12] MEDS: MELOXICAM 7.5 MG TAB PO SCH (08:33)
[2021-05-12] MEDS: MULTIVITAMINS, THERA 1 EACH TAB PO SCH (08:33)
[2021-05-12] MEDS: PANTOPRAZOLE 40 MG/10 ML VIAL IV SCH (08:34)
[2021-05-12 08:42] LABS: Basophils # (A) 0.04 X 10*3/uL (0.00-0.10); Basophils % (A) 0.4 %; Eosinophils # (A) 0.23 X 10*3/uL (0.04-0.35); Eosinophils % (A) 2.2 %; HCT 37.9 % (39.6-50.0); HGB 11.9 g/dL (13.0-17.0); Immature Grans, Automated 0.3 %; Lymphocytes # (A) 1.28 X 10*3/uL (0.90-5.00); Lymphocytes % (A) 12.1 %; MCHC 31.4 g/dL (32.0-37.0); MCV 86.1 fL (80.0-97.0); Mean Platelet Volume 11.2 fL (9.5-12.2); Monocytes # (A) 0.91 X 10*3/uL (0.20-1.00); Monocytes % (A) 8.6 %; NRBC Per 100 WBC 0 /100 WBCS (0.0-0.0); Neutrophils # (A) 8.12 X 10*3/uL (1.80-7.70); Neutrophils % (A) 76.4 %; Platelet Count 181 X 10*3/uL (140-440); RDW 14.9 % (11.5-14.5); WBC 10.61 X 10*3/uL (4.50-10.00)
[2021-05-12 08:56] LABS: African American GFR (CKD) 90.9 (60.0-200.0); Albumin 3.4 g/dL (3.8-4.9); Albumin/Globulin Ratio 1.91 (1.60-3.17); Anion Gap 10.8 mmol/L (10.00-18.00); BUN/Creat Ratio 22.45 Ratio (12.00-20.00); Blood Urea Nitrogen 22.9 mg/dL (9.0-27.0); Calcium 8.8 mg/dL (8.7-10.3); Carbon Dioxide 22.6 mmol/L (20.0-27.5); Globulin 1.8 g/dL (1.6-3.3); Non-African American GFR(CKD) 78.4 (60.0-200.0); Potassium 3.8 mmol/L (3.5-5.5); Total Protein 5.2 g/dL (6.2-8.2)
--- NOTE | 2021-05-12 11:39 | P.PN ---
Progress Note - Text Progress Note Date: 05/12/21 Patient feels better today. On exam vital signs are stable. Abdomen soft. There is minimal epigastric tenderness. Resolving gallstone pancreatitis. Patient will be scheduled for laparoscopic cholecystectomy in the a.m.
--- NOTE | 2021-05-12 12:28 | P.PN ---
Subjective Progress Note Date: 05/12/21 History of present illness: This is a pleasant 60-year-old gentleman patient of Dr. Ruben Christina with a past medical history significant for GI bleed, covid in November 2020 when he was on a vent, obesity. She presented to the emergency room with complaints of sharp stabbing upper abdominal pain that started yesterday. He had episodes of vomiting which she contributed to taking probiotics. Patient states that the pain was stabbing in nature and intermittent. He did have a bowel movement yesterday that was firm and small. He was prescribed Protonix however he was not taking it. Patient was recovering well at home due to the past Covid pneumonia. He was performing his activities of daily living without any difficulties. He was recently taken off his home O2 by . Patient states that the abdominal pain had occurred for approximately 3 days a came out of of the blue. With one episode of emesis. Patient states that he had the abdominal pain previously however as a result on his own. At this time patient is found resting in bed in no acute distress. Complaining of significant knee pain. Patient states that it is difficult for him to walk to the bathroom related to the knee pain. Temperature 100, heart rate 101, respirations 18, blood pressure 118/72, pulse ox 91% on 2 L. W BC 12.6, hemoglobin 14.5, potassium 4.1, BUN 20, creatinine 1.18. Lipase upon admission greater than 20,000 now 5095, amylase 2087, down to 661. CT of abdomen and pel vis with contrast shows inflammatory changes around the pancreas consistent with pancreatitis which is essentially new compared to last exam. There is almost complete clearing of the extensive pulmonary edema compared to last exam. Ultrasound of the gallbladder shows numerous gallstones. No dilated ducts. 05/12: Patient did experience increased knee pain yesterday. Orthopedic surgeon and to see patient. No fracture noted. Patient was ordered anti-inflammatory medication and ice. Patient states that the pain has improved. Patient is scheduled for cholecystectomy tomorrow. We will initiate clear liquids today and patient will be nothing by mouth after midnight. Patient states the pain has significantly improved. Denies any nausea or vomiting. He remains afebrile, heart rate 61, respirations 16, blood pressure 118/71, 99% on 2 L nasal cannula. He received 10.6, hemoglobin 11.9, potassium 3.8, BUN 22.9, creatinine 1.0 Review Of Systems: Constitutional: No fever, no chills, no night sweats. No weight change. No weakness, fatigue or lethargy. No daytime sleepiness. EENT: No headache. No blurred vision or double vision, no loss of vision. No loss of Hearing, no ringing in the ears, no dizziness. No nasal drainage or congestion. No epistaxis. No sore throat. Lungs: No shortness of breath, cough, no sputum production. No wheezing. Cardiovascular: No chest pain, no lower extremity edema. No palpitations. No paroxysmal nocturnal dyspnea. No orthopnea. No lightheadedness or dizziness. No syncopal episodes. Abdominal: no abdominal discomfort. No nausea, vomiting. no diarrhea. No constipation. No bloody or tarry stools. no loss of appetite. Genitourinary: No dysuria, increased frequency, urgency. No urinary retention. Musculoskeletal: No myalgias. No muscle weakness, no gait dysfunction, no frequent falls. No back pain. No neck pain. Integumentary: No wounds, no lesions. No rash or pruritus. No unusual bruising. No change in hair or nails. Neurologic: No aphasia. No facial droop. No change in mentation. No head injury. No headache. No paralysis. No paresthesia. Psychiatric: No depression. No anxiety. No mood swings. Endocrine: No abnormal blood sugars. No weight change. No excessive sweating or thirst. Physical examination General Appearance: Alert, cooperative, no distress, this is a 60-year-old patient appears stated age. Seen on 6 N. resting in bed Neck HEENT: Supple, no lymphadenopathy, no thyroid enlargement, no carotid bruits. Lungs: Clear to auscultation without crackles or wheezes no rhonchi, no deformity. Chest Wall: Chest wall normal expansion with deep inspiration no tenderness and no deformity was found on exam, no costochondral pain or discomfort. Heart: Regular rate and rhythm, S1, S2 normal, no murmur, rub or gallop. Back: Symmetric, no curvature, ROM normal, no CVA tenderness. Abdomen: Soft, non-tender, no rebound or rigidity, no hepatosplenomegaly. Extremities: Extremities normal, atraumatic, no cyanosis or edema. Pulses: 2+ and symmetric. Skin: Skin color, texture, tugor normal, no rashes or lesions. Neurologic: Alert oriented x3 cranial nerves II through XII intact, no motor deficit, no abnormal balance or gait Assessment and plan 1. Acute pancreatitis secondary to gallstones obstructive nature. Patient is scheduled for cholecystectomy tomorrow. We'll start clear liquid diet today and nothing by mouth after midnight. General surgery consult appreciated. Repeat CMP lipase and amylase. Continue with Dilaudid as needed for pain. Protonix 40 mg 2. Acute transaminitis hepatitis. As noted above 3. Knee pain rule out effusion. Bilateral knee x-ray impression: There is no acute fracture dislocation the tricompartment joint spaces appear within normal limits the overlying soft tissue appears unremarkable. Consult orthopedic appreciated. Continue with Mobic. 4. Post Covid pneumonia. 5. Obesity 6. DVT prophylaxis. Pneumatic compression sleeves 7. GI prophylaxis. Protonix Patient will be admitted for minimum of 2 nights day CODE STATUS: Full code Discharge disposition: More than likely home Impression and plan of care have been directed as dictated by the signing physician. Vandana Stoddard nurse practitioner acting as scribe for signing physician. Objective - Vital Signs Vital signs: Vital Signs Temp 98.7 F 05/12/21 07:40 Pulse 61 05/12/21 07:40 Resp 16 05/12/21 07:40 BP 118/71 05/12/21 07:40 Pulse Ox 99 05/12/21 07:40 Intake & Output 05/11/21 05/12/21 05/12/21 18:59 06:59 18:59 Output Total 260 120 Balance -260 -120 Output: Urine 260 120 Other: # Voids 2 2 - Labs CBC & Chem 7: 05/12/21 06:31 05/12/21 06:31 Labs: Abnormal Lab Results - Last 24 Hours (Table) 05/12/21 05/12/21 Range/Units 06:31 06:31 WBC 10.61 H (4.50-10.00) X 10*3/uL Hgb 11.9 L (13.0-17.0) g/dL Hct 37.9 L (39.6-50.0) % MCHC 31.4 L (32.0-37.0) g/dL RDW 14.9 H (11.5-14.5) % Neutrophils # 8.12 H (1.80-7.70) X 10*3/uL Chloride 110 H (96-109) mmol/L BUN/Creatinine Ratio 22.45 H (12.00-20.00) Ratio AST 74 H (14-35) U/L ALT 180 H (10-49) U/L Alkaline Phosphatase 127 H (41-126) U/L Total Protein 5.2 L (6.2-8.2) g/dL Albumin 3.4 L (3.8-4.9) g/dL Amylase 123 H (23-121) U/L Lipase 115 H (14-60) U/L
[2021-05-12] MEDS: FLUTICASONE 50MCG/SPRAY NASAL 16GM EA NOSTRIL SCH (19:40)
[2021-05-12] MEDS: HYDROmorphone 1 MG/ML 1 ML SYRINGE IVP PRN (21:34)
[2021-05-13] MEDS: SODIUM CHLORIDE 0.9% 1,000 ML IV SCH ×3 (05:19→19:23)
[2021-05-13] MEDS: MELOXICAM 7.5 MG TAB PO SCH (09:03)
[2021-05-13] MEDS: PANTOPRAZOLE 40 MG/10 ML VIAL IV SCH (09:05)
[2021-05-13] MEDS: HYDROmorphone 1 MG/ML 1 ML SYRINGE IVP PRN (09:05)
[2021-05-13] MEDS: MULTIVITAMINS, THERA 1 EACH TAB PO SCH (09:05)
[2021-05-13 10:58] LABS: Basophils % (A) 1 %; Eosinophils # (A) 0.5 k/uL (0-0.7); Eosinophils % (A) 6 %; HCT 35.8 % (39.0-53.0); HGB 11.7 gm/dL (13.0-17.5); Lymphocytes # (A) 1.1 k/uL (1.0-4.8); Lymphocytes % (A) 14 %; MCH 28.8 pg (25.0-35.0); MCHC 32.7 g/dL (31.0-37.0); MCV 88.2 fL (80.0-100.0); Mean Platelet Volume 8.1; Monocytes # (A) 0.4 k/uL (0-1.0); Monocytes % (A) 6 %; Neutrophils # (A) 5.8 k/uL (1.3-7.7); Neutrophils % (A) 72 %; Platelet Count 192 k/uL (150-450); RBC 4.06 m/uL (4.30-5.90)
[2021-05-13 11:16] LABS: ALT 107 U/L (4-49); AST 31 U/L (17-59); African American GFR (CKD) >90 (>60 ml/min/1.73 sqM); Albumin 2.8 g/dL (3.5-5.0); Albumin/Globulin Ratio 1.1; Alkaline Phosphatase 88 U/L (38-126); Amylase 43 U/L (30-110); Anion Gap 1 mmol/L; Blood Urea Nitrogen 15 mg/dL (9-20); Calcium 8.3 mg/dL (8.4-10.2); Carbon Dioxide 26 mmol/L (22-30); Chloride 110 mmol/L (98-107); Globulin 2.5 g/dL; Glucose 102 mg/dL (74-99); Lipase 239 U/L (23-300); Non-African American GFR(CKD) >90 (>60 ml/min/1.73 sqM); Potassium 3.7 mmol/L (3.5-5.1); Sodium 137 mmol/L (137-145); Total Bilirubin 1.1 mg/dL (0.2-1.3); Total Protein 5.3 g/dL (6.3-8.2); Uric Acid 3.7 mg/dL (3.5-8.5)
--- NOTE | 2021-05-13 13:25 | P.PN ---
Subjective Progress Note Date: 05/13/21 History of present illness: This is a pleasant 60-year-old gentleman patient of Dr. Ruben Christina with a past medical history significant for GI bleed, covid in November 2020 when he was on a vent, obesity. She presented to the emergency room with complaints of sharp stabbing upper abdominal pain that started yesterday. He had episodes of vomiting which she contributed to taking probiotics. Patient states that the pain was stabbing in nature and intermittent. He did have a bowel movement yesterday that was firm and small. He was prescribed Protonix however he was not taking it. Patient was recovering well at home due to the past Covid pneumonia. He was performing his activities of daily living without any difficulties. He was recently taken off his home O2 by . Patient states that the abdominal pain had occurred for approximately 3 days a came out of of the blue. With one episode of emesis. Patient states that he had the abdominal pain previously however as a result on his own. At this time patient is found resting in bed in no acute distress. Complaining of significant knee pain. Patient states that it is difficult for him to walk to the bathroom related to the knee pain. Temperature 100, heart rate 101, respirations 18, blood pressure 118/72, pulse ox 91% on 2 L. W BC 12.6, hemoglobin 14.5, potassium 4.1, BUN 20, creatinine 1.18. Lipase upon admission greater than 20,000 now 5095, amylase 2087, down to 661. CT of abdomen and pe lvis with contrast shows inflammatory changes around the pancreas consistent with pancreatitis which is essentially new compared to last exam. There is almost complete clearing of the extensive pulmonary edema compared to last exam. Ultrasound of the gallbladder shows numerous gallstones. No dilated ducts. 05/12: Patient did experience increased knee pain yesterday. Orthopedic surgeon and to see patient. No fracture noted. Patient was ordered anti-inflammatory medication and ice. Patient states that the pain has improved. Patient is scheduled for cholecystectomy tomorrow. We will initiate clear liquids today and patient will be nothing by mouth after midnight. Patient states the pain has significantly improved. Denies any nausea or vomiting. He remains afebrile, heart rate 61, respirations 16, blood pressure 118/71, 99% on 2 L nasal cannula. He received 10.6, hemoglobin 11.9, potassium 3.8, BUN 22.9, creatinine 1.0 05/13: Patient is doing very well if he can decrease his knee pain and discomfort compared to yesterday, his lipase and amylase are stabilized back to normal, p atient apparently is nothing by mouth for surgery today apparently his called and was to change the intervention to somebody else at the time. Patient still waiting for that decision which hopefully will be done sometimes later on today. He is stable otherwise doing very well no further abdominal pain is hungry once to eat. Review Of Systems: Constitutional: No fever, no chills, no night sweats. No weight change. No weakness, fatigue or lethargy. No daytime sleepiness. EENT: No headache. No blurred vision or double vision, no loss of vision. No loss of Hearing, no ringing in the ears, no dizziness. No nasal drainage or congestion. No epistaxis. No sore throat. Lungs: No shortness of breath, cough, no sputum production. No wheezing. Cardiovascular: No chest pain, no lower extremity edema. No palpitations. No paroxysmal nocturnal dyspnea. No orthopnea. No lightheadedness or dizziness. No syncopal episodes. Abdominal: no abdominal discomfort. No nausea, vomiting. no diarrhea. No constipation. No bloody or tarry stools. no loss of appetite. Genitourinary: No dysuria, increased frequency, urgency. No urinary retention. Musculoskeletal: No myalgias. No muscle weakness, no gait dysfunction, no frequent falls. No back pain. No neck pain. Integumentary: No wounds, no lesions. No rash or pruritus. No unusual bruising. No change in hair or nails. Neurologic: No aphasia. No facial droop. No change in mentation. No head injury. No headache. No paralysis. No paresthesia. Psychiatric: No depression. No anxiety. No mood swings. Endocrine: No abnormal blood sugars. No weight change. No excessive sweating or thirst. Physical examination General Appearance: Alert, cooperative, no distress, this is a 60-year-old patient appears stated age. Seen on 6 N. resting in bed Neck HEENT: Supple, no lymphadenopathy, no thyroid enlargement, no carotid bruits. Lungs: Clear to auscultation without crackles or wheezes no rhonchi, no deformity. Chest Wall: Chest wall normal expansion with deep inspiration no tenderness and no deformity was found on exam, no costochondral pain or discomfort. Heart: Regular rate and rhythm, S1, S2 normal, no murmur, rub or gallop. Back: Symmetric, no curvature, ROM normal, no CVA tenderness. Abdomen: Soft, non-tender, no rebound or rigidity, no hepatosplenomegaly. Extremities: Extremities normal, atraumatic, no cyanosis or edema. Pulses: 2+ and symmetric. Skin: Skin color, texture, tugor normal, no rashes or lesions. Neurologic: Alert oriented x3 cranial nerves II through XII intact, no motor deficit, no abnormal balance or gait Assessment and plan 1. Acute pancreatitis secondary to gallstones obstructive nature. Patient be going for lap raffaele today hopefully he is nothing by mouth at this point of the procedures done, continued see general surgery, continue pain management. 2 acute gallstone: Patient be going for surgery today. 3. Acute transaminitis hepatitis. Most likely from acute gallstone, liver enzymes are much better so far healthier after surgery symptom improvement. 4. Knee pain rule out effusion. Was seen orthopedic surgeon, no intervention needed to be done, uric acid was ordered today was negative. 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 5. Post Covid pneumonia. Stable and doing well. 6. Obesity with body mass index 36.0 continue diet exercise. 7. DVT prophylaxis. Pneumatic compression sleeves 8. GI prophylaxis. Protonix Discharge planning: The patient has his gallbladder out today doing very well tomorrow can be discharged home. Objective - Vital Signs Vital signs: Vital Signs Temp 98.7 F 05/13/21 06:58 Pulse 91 05/13/21 06:58 Resp 16 05/13/21 06:58 BP 114/65 05/13/21 06:58 Pulse Ox 96 05/13/21 06:58 Intake & Output 05/12/21 05/13/21 05/13/21 18:59 06:59 18:59 Intake Total 218 Output Total 120 200 120 Balance 98 -200 -120 Intake: Oral 218 Output: Urine 120 200 120 - Labs CBC & Chem 7: 05/13/21 10:23 05/13/21 10:23
--- NOTE | 2021-05-13 13:32 | P.PN ---
Subjective Progress Note Date: 05/13/21 CHIEF COMPLAINT: Gallstone pancreatitis HISTORY OF PRESENT ILLNESS: Patient initially scheduled for laparoscopic cholecystectomy this morning with Dr. murguia. Patient reports that his was recommending patient be evaluated by a different surgeon. Therefore patient is now requesting to be seen by a different surgeon. Surgery by Dr. murguia was canceled for today. Patient denies any significant pain. Denies any nausea or vomiting. Afebrile. WBC is 8.0 hemoglobin 11.7 LFTs are trending down. Total bili is normal at 1.1 and lipase has normalized. Patient seen and examined with Dr. murguia PHYSICAL EXAM: VITAL SIGNS: Reviewed. GENERAL: Well-developed in no acute distress. HEENT: No sclera icterus. Extraocular movements grossly intact. Moist buccal mucosa. Head is atraumatic, normocephalic. ABDOMEN: Soft. Nondistended. NEUROLOGIC: Alert and oriented. Cranial nerves II through XII grossly intact. ASSESSMENT: 1. Gallstone pancreatitis PLAN: -Patient could be discharged from surgical standpoint and follow-up outpatient with surgeon of his choice -Continue supportive care Physician Braille Typist note has been reviewed by physician. Signing provider agrees with the documented findings, assessment, and plan of care. Objective - Vital Signs Vital signs: Vital Signs Temp 98.7 F 05/13/21 06:58 Pulse 91 05/13/21 08:00 Resp 16 05/13/21 08:00 BP 114/65 05/13/21 06:58 Pulse Ox 96 05/13/21 06:58 Intake & Output 05/12/21 05/13/21 05/13/21 18:59 06:59 18:59 Intake Total 218 Output Total 120 200 300 Balance 98 -200 -300 Intake: Oral 218 Output: Urine 120 200 300 - Labs CBC & Chem 7: 05/13/21 10:23 05/13/21 10:23 Labs: Abnormal Lab Results - Last 24 Hours (Table) 05/13/21 05/13/21 Range/Units 10:23 10:23 RBC 4.06 L (4.30-5.90) m/uL Hgb 11.7 L (13.0-17.5) gm/dL Hct 35.8 L (39.0-53.0) % Chloride 110 H (98-107) mmol/L Glucose 102 H (74-99) mg/dL Calcium 8.3 L (8.4-10.2) mg/dL ALT 107 H (4-49) U/L Total Protein 5.3 L (6.3-8.2) g/dL Albumin 2.8 L (3.5-5.0) g/dL
--- NOTE | 2021-05-13 17:13 | MR ---
MRCP HISTORY: Abdominal pain, pancreatitis Multiplanar multisequence imaging obtained through the biliary system. Three-dimensional reconstructi ons performed on an alternate workstation and reviewed. Correlation to ultrasound gallbladder and CT abdomen pelvis 05/10/2021 There is no dilated intra or extrahepatic biliary duct. Reconstructed images are limited for evaluati on, difficult to exclude choledocholithiasis with image 54 series 601 within the common bile duct and 52, suspect there are filling defects present within the cystic duct or gallbladder neck, coronal im age #22 series 301. The gallbladder is contracted and shows multiple luminal stones. There is gallbla dder wall thickening. No evident pericholecystic fluid. Liver shows no mass. Peripancreatic inflammatory changes are present as noted on CT. No evident mass or necrosis. No retro peritoneal adenopathy. Lung bases show no effusion. There is a splenule adjacent to the spleen. Fluid seen adjacent to the l iver and prior CT is not seen with certainty. Kidneys show lower pole associated T2 bright cortical c yst on the left, no hydronephrosis, there is no adrenal mass. No evident bowel obstruction. IMPRESSION: Findings consistent with pancreatitis. Cholelithiasis, possible choledocholithiasis. HIDA scan may be of benefit to assess for cholecystitis, cystic duct obstruction. Additional findings abo ve.
[2021-05-13] MEDS: FLUTICASONE 50MCG/SPRAY NASAL 16GM EA NOSTRIL SCH (20:11)
[2021-05-14] MEDS: SODIUM CHLORIDE 0.9% 1,000 ML IV SCH ×2 (02:19→13:25)
--- NOTE | 2021-05-14 09:32 | P.PN ---
Subjective Progress Note Date: 05/14/21 History of present illness: This is a pleasant 60-year-old gentleman patient of Dr. Ruben Christina with a past medical history significant for GI bleed, covid in November 2020 when he was on a vent, obesity. She presented to the emergency room with complaints of sharp stabbing upper abdominal pain that started yesterday. He had episodes of vomiting which she contributed to taking probiotics. Patient states that the pain was stabbing in nature and intermittent. He did have a bowel movement yesterday that was firm and small. He was prescribed Protonix however he was not taking it. Patient was recovering well at home due to the past Covid pneumonia. He was performing his activities of daily living without any difficulties. He was recently taken off his home O2 by . Patient states that the abdominal pain had occurred for approximately 3 days a came out of of the blue. With one episode of emesis. Patient states that he had the abdominal pain previously however as a result on his own. At this time patient is found resting in bed in no acute distress. Complaining of significant knee pain. Patient states that it is difficult for him to walk to the bathroom related to the knee pain. Temperature 100, heart rate 101, respirations 18, blood pressure 118/72, pulse ox 91% on 2 L. W BC 12.6, hemoglobin 14.5, potassium 4.1, BUN 20, creatinine 1.18. Lipase upon admission greater than 20,000 now 5095, amylase 2087, down to 661. CT of abdomen and pe lvis with contrast shows inflammatory changes around the pancreas consistent with pancreatitis which is essentially new compared to last exam. There is almost complete clearing of the extensive pulmonary edema compared to last exam. Ultrasound of the gallbladder shows numerous gallstones. No dilated ducts. 05/12: Patient did experience increased knee pain yesterday. Orthopedic surgeon and to see patient. No fracture noted. Patient was ordered anti-inflammatory medication and ice. Patient states that the pain has improved. Patient is scheduled for cholecystectomy tomorrow. We will initiate clear liquids today and patient will be nothing by mouth after midnight. Patient states the pain has significantly improved. Denies any nausea or vomiting. He remains afebrile, heart rate 61, respirations 16, blood pressure 118/71, 99% on 2 L nasal cannula. He received 10.6, hemoglobin 11.9, potassium 3.8, BUN 22.9, creatinine 1.0 05/13: Patient is doing very well if he can decrease his knee pain and discomfort compared to yesterday, his lipase and amylase are stabilized back to normal, p atient apparently is nothing by mouth for surgery today apparently his called and was to change the intervention to somebody else at the time. Patient still waiting for that decision which hopefully will be done sometimes later on today. He is stable otherwise doing very well no further abdominal pain is hungry once to eat. 05/14: General surgery service apparently was changed to Dr. Hooker yesterday, MRCP was order and shows no major problem in the common duct itself there is a slight shadow in the neck of the gallbladder. Which is my review I do believe it's a concern to take her gallbladder out at this point if the surgeon she is comfortable with it otherwise patient might need an ERCP if that's the case might need to transfer patient to one of the large center to do the procedure before doing gallbladder surgery. Review Of Systems: Constitutional: No fever, no chills, no night sweats. No weight change. No weakness, fatigue or lethargy. No daytime sleepiness. EENT: No headache. No blurred vision or double vision, no loss of vision. No loss of Hearing, no ringing in the ears, no dizziness. No nasal drainage or congestion. No epistaxis. No sore throat. Lungs: No shortness of breath, cough, no sputum production. No wheezing. Cardiovascular: No chest pain, no lower extremity edema. No palpitations. No paroxysmal nocturnal dyspnea. No orthopnea. No lightheadedness or dizziness. No syncopal episodes. Abdominal: no abdominal discomfort. No nausea, vomiting. no diarrhea. No constipation. No bloody or tarry stools. no loss of appetite. Genitourinary: No dysuria, increased frequency, urgency. No urinary retention. Musculoskeletal: No myalgias. No muscle weakness, no gait dysfunction, no frequent falls. No back pain. No neck pain. Integumentary: No wounds, no lesions. No rash or pruritus. No unusual bruising. No change in hair or nails. Neurologic: No aphasia. No facial droop. No change in mentation. No head injury. No headache. No paralysis. No paresthesia. Psychiatric: No depression. No anxiety. No mood swings. Endocrine: No abnormal blood sugars. No weight change. No excessive sweating or thirst. Physical examination General Appearance: Alert, cooperative, no distress, this is a 60-year-old patient appears stated age. Seen on 6 N. resting in bed Neck HEENT: Supple, no lymphadenopathy, no thyroid enlargement, no carotid bruits. Lungs: Clear to auscultation without crackles or wheezes no rhonchi, no deformity. Chest Wall: Chest wall normal expansion with deep inspiration no tenderness and no deformity was found on exam, no costochondral pain or discomfort. Heart: Regular rate and rhythm, S1, S2 normal, no murmur, rub or gallop. Back: Symmetric, no curvature, ROM normal, no CVA tenderness. Abdomen: Soft, non-tender, no rebound or rigidity, no hepatosplenomegaly. Extremities: Extremities normal, atraumatic, no cyanosis or edema. Pulses: 2+ and symmetric. Skin: Skin color, texture, tugor normal, no rashes or lesions. Neurologic: Alert oriented x3 cranial nerves II through XII intact, no motor deficit, no abnormal balance or gait Assessment and plan 1. Acute pancreatitis secondary to gallstones obstructive nature. Patient be going for lap raffaele today hopefully he is nothing by mouth at this point of the procedures done, continued see general surgery, continue pain management. 2 acute gallstone: Surgery still pending based on the decision whether need an ERCP or not. 3. Acute transaminitis hepatitis. Most likely from acute gallstone, his enzymes are back to normal. 4. Knee pain rule out effusion. Was seen orthopedic surgeon, no intervention needed to be done, uric acid was ordered today was negative. 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 5. Post Covid pneumonia. Stable and doing well. 6. Obesity with body mass index 36.0 continue diet exercise. 7. DVT prophylaxis. Pneumatic compression sleeves 8. GI prophylaxis. Protonix Discharge planning: Depend on the decision for ERCP or surgery will decide on either sending patient to the or tomorrow. Objective - Vital Signs Vital signs: Vital Signs Temp 98.0 F 05/14/21 07:00 Pulse 85 05/14/21 07:00 Resp 20 05/14/21 07:00 BP 103/67 05/14/21 07:00 Pulse Ox 95 05/14/21 07:00 Intake & Output 05/13/21 05/14/21 05/14/21 18:59 06:59 18:59 Intake Total 240 Output Total 600 Balance -360 Intake: Oral 240 Output: Urine 600 Other: # Voids 1 2 - Labs CBC & Chem 7: 05/13/21 10:23 05/13/21 10:23 Labs: Abnormal Lab Results - Last 24 Hours (Table) 05/13/21 05/13/21 Range/Units 10:23 10:23 RBC 4.06 L (4.30-5.90) m/uL Hgb 11.7 L (13.0-17.5) gm/dL Hct 35.8 L (39.0-53.0) % Chloride 110 H (98-107) mmol/L Glucose 102 H (74-99) mg/dL Calcium 8.3 L (8.4-10.2) mg/dL ALT 107 H (4-49) U/L Total Protein 5.3 L (6.3-8.2) g/dL Albumin 2.8 L (3.5-5.0) g/dL
[2021-05-14] MEDS: MELOXICAM 7.5 MG TAB PO SCH (09:53)
[2021-05-14] MEDS: MULTIVITAMINS, THERA 1 EACH TAB PO SCH (09:53)
[2021-05-14] MEDS: HYDROmorphone 1 MG/ML 1 ML SYRINGE IVP PRN (09:54)
[2021-05-14] MEDS: PANTOPRAZOLE 40 MG/10 ML VIAL IV SCH (09:54)
[2021-05-14 10:41] LABS: Basophils # (A) 0.03 X 10*3/uL (0.00-0.10); Basophils % (A) 0.4 %; Eosinophils # (A) 0.54 X 10*3/uL (0.04-0.35); Eosinophils % (A) 6.5 %; HCT 35.8 % (39.6-50.0); HGB 11.2 g/dL (13.0-17.0); Immature Grans, Automated 0.5 %; Lymphocytes # (A) 1.43 X 10*3/uL (0.90-5.00); Lymphocytes % (A) 17.3 %; MCH 26.7 pg (27.0-32.0); MCHC 31.3 g/dL (32.0-37.0); MCV 85.4 fL (80.0-97.0); Mean Platelet Volume 10.9 fL (9.5-12.2); Monocytes # (A) 0.72 X 10*3/uL (0.20-1.00); Monocytes % (A) 8.7 %; NRBC Per 100 WBC 0 /100 WBCS (0.0-0.0); Neutrophils % (A) 66.6 %; Platelet Count 207 X 10*3/uL (140-440); RBC 4.19 X 10*6/uL (4.40-5.60); RDW 14.4 % (11.5-14.5); WBC 8.26 X 10*3/uL (4.50-10.00)
[2021-05-14 10:53] LABS: African American GFR (CKD) 105.7 (60.0-200.0); Albumin 3.5 g/dL (3.8-4.9); Albumin/Globulin Ratio 1.84 (1.60-3.17); Anion Gap 10.7 mmol/L (10.00-18.00); BUN/Creat Ratio 12.22 Ratio (12.00-20.00); Calcium 8.9 mg/dL (8.7-10.3); Carbon Dioxide 26.3 mmol/L (20.0-27.5); Globulin 1.9 g/dL (1.6-3.3); Non-African American GFR(CKD) 91.2 (60.0-200.0); Potassium 3.9 mmol/L (3.5-5.5); Total Bilirubin 0.8 mg/dL (0.30-1.20); Total Protein 5.4 g/dL (6.2-8.2)
--- NOTE | 2021-05-14 11:52 | P.GSCN ---
History of Present Illness Consult date: 05/14/21 Reason for Consult: Pancreatitis and jaundice, cholelithiasis. History of present illness: Patient is a 60-year-old gentleman who presented to [facility] emergency department 05/10/2021 with chief complaint of 72 hours of epigastric pain. He's had similar bleeding episodes over the years, hadn't been hospitalized for similar issues in the past. Within the past year or so he did stop her with severe Covid, was on the ventilator for a period of time as has since recovered. It sounds like he had issues with GI bleeding when he was hospitalized for that issue. Computed tomography scan of the abdomen and pelvis was obtained in the ER, images and report were reviewed. Gallbladder appears contracted with mild wall thickening. There is some mild to moderate inflammatory changes about the pancreas and sandra hepatitis. Subsequent abdominal ultrasound shows gallstones, mild gallbladder wall thickening, no mention of discrete choledocholithiasis. Patient's initial laboratory studies showed a lipase in excess of 20,000, amyla se of around 3000. AST and ALT were modestly elevated at 498 and 399 respectively, alkaline phosphatase mildly elevated at 137 and total bilirubin high at 3.4. He had a mild leukocytosis at 12.6, hemoglobin normal range at 14.5, platelet count normal range at 241. MCV and MCH indices were within normal limits, RDW similarly normal range at 15.2. INR normal at 0.9. Since admission is been maintained on nothing by mouth status and advance to clear liquids. He is feeling hungry today, epigastric pains have essentially completely subsided. He denies focal right upper quadrant pain. His laboratory studies have all normalized, jaundiced has cleared with a bilirubin of 0.8. Amylase and lipase of normalized at 53 and 70 respectively. Patient's requested a second opinion regarding potential cholecystectomy. I requested an MRCP yesterday, images and report were reviewed. There was some residual peripancreatic inflammatory changes, no evidence of necrosis. Images were interpreted as equivocal for residual choledocholithiasis. There were multiple gallstones visualized at the cystic duct and gallbladder neck and thickening of the gallbladder wall seen without pericholecystic fluid. Patient tells me he may have been diagnosed with heart attack at some point in the distant past, has not undergone angiography or bypass. No known personal history of stroke, DVT or pulmonary embolus. He is not maintained on any manner of oral anti- coagulants. Review of Systems All systems: negative - Constitutional Reports as per HPI Past Medical History Past Medical History: GI Bleed Additional Past Medical History / Comment(s): covsonya in nov 2020 placed on ventilator, required 5-6 unit blood transfusion History of Any Multi-Drug Resistant Organisms: None Reported Past Surgical History: Joint Replacement Additional Past Surgical History / Comment(s): right shoulder surgry 10 years ago Past Psychological History: No Psychological Hx Reported Smoking Status: Never smoker Past Alcohol Use History: Occasional Past Drug Use History: None Reported Medications and Allergies Home Medications Medication Instructions Recorded Confirmed Type Cholecalciferol [Vitamin D3 (25 25 mcg PO DAILY 11/14/20 05/10/21 History Mcg = 1000 Iu)] Multivitamins, Thera [Multivitamin 1 tab PO DAILY 11/14/20 05/10/21 History (formulary)] Ascorbic Acid [Vitamin C] 500 mg PO DAILY 05/10/21 05/10/21 History Fluticasone Nasal [place] [Flonase 1 spray EA NOSTRIL HS 05/10/21 05/10/21 History Nasal [place]] [place]-3 Fatty Acids/Fish Oil [Fish 2 cap PO DAILY 05/10/21 05/10/21 History Oil 1,000 mg Softgel] Pantoprazole [Protonix] 40 mg PO DAILY 05/10/21 05/10/21 History Allergies Allergy/AdvReac Type Severity Reaction Status Date / Time No Known Allergies Allergy Verified 05/10/21 18:32 Surgical - Exam Osteopathic Statement: *. No significant issues noted on an osteopathic structural exam other than those noted in the History and Physical/Consult. Vital Signs Pulse Resp BP Pulse Ox 93 16 117/67 88 L 05/10/21 16:07 05/10/21 16:07 05/10/21 16:07 05/10/21 16:07 - General well developed, no distress, obese - Eyes PERRL - ENT normal mucosa, no hearing loss - Respiratory normal expansion, normal respiratory effort, clear to auscultation - Cardiovascular Rhythm: regular - Abdomen Abdomen is soft, nontender to palpation, no guarding rebound or distention. No appreciable ventral hernia, Jackson's sign is absent, no clinical signs of jaundice. Abdomen: soft, non tender - Neurologic normal coordination, normal sensation - Psychiatric oriented to time, oriented to person, oriented to place, memory intact Results - Labs 05/14/21 07:31 05/14/21 07:31 Abnormal Lab Results - Last 24 Hours (Table) 05/14/21 05/14/21 Range/Units 07:31 07:31 RBC 4.19 L (4.40-5.60) X 10*6/uL Hgb 11.2 L (13.0-17.0) g/dL Hct 35.8 L (39.6-50.0) % MCH 26.7 L (27.0-32.0) pg MCHC 31.3 L (32.0-37.0) g/dL Eosinophils # 0.54 H (0.04-0.35) X 10*3/uL ALT 86 H (10-49) U/L Total Protein 5.4 L (6.2-8.2) g/dL Albumin 3.5 L (3.8-4.9) g/dL Lipase 70 H (14-60) U/L Diabetes panel 05/14/21 Range/Units 07:31 Sodium 141 (135-145) mmol/L Potassium 3.9 (3.5-5.5) mmol/L Chloride 104 (96-109) mmol/L Carbon Dioxide 26.3 (20.0-27.5) mmol/L BUN 11.0 (9.0-27.0) mg/dL Creatinine 0.9 (0.6-1.5) mg/dL Glucose 108 (70-110) mg/dL Calcium 8.9 (8.7-10.3) mg/dL AST 21 (14-35) U/L ALT 86 H (10-49) U/L Alkaline Phosphatase 94 (41-126) U/L Total Protein 5.4 L (6.2-8.2) g/dL Albumin 3.5 L (3.8-4.9) g/dL Calcium panel 05/14/21 Range/Units 07:31 Calcium 8.9 (8.7-10.3) mg/dL Albumin 3.5 L (3.8-4.9) g/dL Pituitary panel 05/14/21 Range/Units 07:31 Sodium 141 (135-145) mmol/L Potassium 3.9 (3.5-5.5) mmol/L Chloride 104 (96-109) mmol/L Carbon Dioxide 26.3 (20.0-27.5) mmol/L BUN 11.0 (9.0-27.0) mg/dL Creatinine 0.9 (0.6-1.5) mg/dL Glucose 108 (70-110) mg/dL Calcium 8.9 (8.7-10.3) mg/dL Adrenal panel 05/14/21 Range/Units 07:31 Sodium 141 (135-145) mmol/L Potassium 3.9 (3.5-5.5) mmol/L Chloride 104 (96-109) mmol/L Carbon Dioxide 26.3 (20.0-27.5) mmol/L BUN 11.0 (9.0-27.0) mg/dL Creatinine 0.9 (0.6-1.5) mg/dL Glucose 108 (70-110) mg/dL Calcium 8.9 (8.7-10.3) mg/dL Total Bilirubin 0.80 (0.30-1.20) mg/dL AST 21 (14-35) U/L ALT 86 H (10-49) U/L Alkaline Phosphatase 94 (41-126) U/L Total Protein 5.4 L (6.2-8.2) g/dL Albumin 3.5 L (3.8-4.9) g/dL - Imaging CT scan - abdomen: report reviewed, image reviewed US - abdomen: report reviewed Assessment and Plan Assessment: 60-year-old gentleman with clinical presentation, laboratory studies and imaging all suggestive of choledocholithiasis and gallstone pancreatitis on presentation. Pain and laboratory abnormalities have completely resolved with bowel rest, hydration, and passage of time. MRCP showing some residual pancreatic inflammatory changes without necrosis, gallstones within the gallbladder lumen and question of persistent nonobstructing choledocholithiasis. Abdominal exam benign. Jaundice resolved. Plan: Options for treatment were discussed with the patient at length. He was advised that in the setting of gallstone pancreatitis and choledocholithiasis we typically endeavor to complete cholecystectomy prior to discharge to prevent further insult, there is room for compromise in this however. 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 The patient's MRCP is suggestive of small nonobstructing residual choledocholithiasis at the common duct. Ideally, ERCP should be entertained prior to cholecystectomy. It would appear that we do not have inpatient GI coverage for the coming week. Patient was advised that if we move forward with cholecystectomy and he has issues with subsequent obstructive jaundice he would need an ERCP that would put him at risk for bile leak at the cystic duct stump. It would be reasonable to have the patient follow-up with GI in the outpatient setting in the next week or 2 to get their input as to the utility of preoperative ERCP. The patient has no evidence of jaundice, his symptoms of pain have resolved, he appears to have no indication for emergent interventions presently. Patient's in agreement with touching base with GI prior to further pursuit of cholecystectomy. He'll be advanced to a low-fat diet today, if that's well tolerated he will be okay for discharge home from a surgical standpoint tomorrow. He was asked to follow-up with the general surgeon of his choosing in 1-2 weeks. If he has recurrence of pain or signs of biliary obstruction on subsequent labs he may need to transfer for further GI assessment in the inpatient setting. Time with Patient: Greater than 30
--- NOTE | 2021-05-14 13:48 | P.DS ---
Providers Date of admission: 05/13/21 09:22 Attending physician: Jerilyn Alcocer Consults: 05/10/21 22:50 Consult Physician Urgent Consulting Provider: Evangelina Reyes Consult Reason/Comments: acute pancreatitis Do you want consulting provider notified?: Yes, Notify in am 05/11/21 13:12 Consult Physician Routine Consulting Provider: Russ Bravo Consult Reason/Comments: bilateral knee pain Do you want consulting provider notified?: Already Contacted 05/13/21 15:25 Consult Physician Routine Consulting Provider: Clyde Hooker Consult Reason/Comments: gallstones Do you want consulting provider notified?: Yes Primary care physician: [facility] Course: History of present illness: This is a pleasant 60-year-old gentleman patient of Dr. Ruben Christina with a past medical history significant for GI bleed, covid in November 2020 when he was on a vent, obesity. She presented to the emergency room with complaints of sharp stabbing upper abdominal pain that started yesterday. He had episodes of vomiting which she contributed to taking probiotics. Patient states that the pain was stabbing in nature and intermittent. He did have a bowel movement yesterday that was firm and small. He was prescribed Protonix however he was not taking it. Patient was recovering well at home due to the past Covid pneumonia. He was performing his activities of daily living without any difficulties. He was recently taken off his home O2 by . Patient states that the abdominal pain had occurred for approximately 3 days a came out of of the blue. With one episode of emesis. Patient states that he had the abdominal pain previously however as a result on his own. At this time patient is found resting in bed in no acute distress. Complaining of significant knee pain. Patient states that it is difficult for him to walk to the bathroom related to the knee pain. Temperature 100, heart rate 101, respirations 18, blood pressure 118/72, pulse ox 91% on 2 L. W BC 12.6, hemoglobin 14.5, potassium 4.1, BUN 20, creatinine 1.18. Lipase upon admission greater than 20,000 now 5095, amylase 2087, down to 661. CT of abdomen and pelvis with contrast shows inflammatory changes around the pancreas consistent with pancreatitis which is essentially new compared to last exam. There is almost complete clearing of the extensive pulmonary edema compared to last exam. Ultrasound of the gallbladder shows numerous gallstones. No dilated ducts. 05/12: Patient did experience increased knee pain yesterday. Orthopedic surgeon and to see patient. No fracture noted. Patient was ordered anti-inflammatory medication and ice. Patient states that the pain has improved. Patient is scheduled for cholecystectomy tomorrow. We will initiate clear liquids today and patient will be nothing by mouth after midnight. Patient states the pain has significantly improved. Denies any nausea or vomiting. He remains afebrile, heart rate 61, respirations 16, blood pressure 118/71, 99% on 2 L nasal cannula. He received 10.6, hemoglobin 11.9, potassium 3.8, BUN 22.9, creatinine 1.0 05/13: Patient is doing very well if he can decrease his knee pain and discomfort compared to yesterday, his lipase and amylase are stabilized back to normal, patient apparently is nothing by mouth for surgery today apparently his called and was to change the intervention to somebody else at the time. Patient still waiting for that decision which hopefully will be done sometimes later on today. He is stable otherwise doing very well no further abdominal pain is hungry once to eat. 05/14: General surgery service apparently was changed to Dr. Hooker yesterday, MRCP was order and shows no major problem in the common duct itself there is a slight shadow in the neck of the gallbladder. Which is my review I do believe it's a concern to take her gallbladder out at this point if the surgeon she is comfortable with it otherwise patient might need an ERCP if that's the case might need to transfer patient to one of the large center to do the procedure before doing gallbladder surgery. Review Of Systems: Constitutional: No fever, no chills, no night sweats. No weight change. No weakness, fatigue or lethargy. No daytime sleepiness. EENT: No headache. No blurred vision or double vision, no loss of vision. No loss of Hearing, no ringing in the ears, no dizziness. No nasal drainage or congestion. No epistaxis. No sore throat. Lungs: No shortness of breath, cough, no sputum production. No wheezing. Cardiovascular: No chest pain, no lower extremity edema. No palpitations. No paroxysmal nocturnal dyspnea. No orthopnea. No lightheadedness or dizziness. No syncopal episodes. Abdominal: no abdominal discomfort. No nausea, vomiting. no diarrhea. No constipation. No bloody or tarry stools. no loss of appetite. Genitourinary: No dysuria, increased frequency, urgency. No urinary retention. Musculoskeletal: No myalgias. No muscle weakness, no gait dysfunction, no frequent falls. No back pain. No neck pain. Integumentary: No wounds, no lesions. No rash or pruritus. No unusual bruising. No change in hair or nails. Neurologic: No aphasia. No facial droop. No change in mentation. No head injury. No headache. No paralysis. No paresthesia. Psychiatric: No depression. No anxiety. No mood swings. Endocrine: No abnormal blood sugars. No weight change. No excessive sweating or thirst. Physical examination General Appearance: Alert, cooperative, no distress, this is a 60-year-old patient appears stated age. Seen on 6 N. resting in bed Neck HEENT: Supple, no lymphadenopathy, no thyroid enlargement, no carotid bruits. Lungs: Clear to auscultation without crackles or wheezes no rhonchi, no deformity. Chest Wall: Chest wall normal expansion with deep inspiration no tenderness and no deformity was found on exam, no costochondral pain or discomfort. Heart: Regular rate and rhythm, S1, S2 normal, no murmur, rub or gallop. Back: Symmetric, no curvature, ROM normal, no CVA tenderness. Abdomen: Soft, non-tender, no rebound or rigidity, no hepatosplenomegaly. Extremities: Extremities normal, atraumatic, no cyanosis or edema. Pulses: 2+ and symmetric. Skin: Skin color, texture, tugor normal, no rashes or lesions. Neurologic: Alert oriented x3 cranial nerves II through XII intact, no motor deficit, no abnormal balance or gait Assessment and plan 1. Acute pancreatitis secondary to gallstones obstructive nature. Patient be going for lap raffeale today hopefully he is nothing by mouth at this point of the procedures done, continued see general surgery, continue pain management. 2 acute gallstone: Surgery still pending based on the decision whether need an ERCP or not. 3. Acute transaminitis hepatitis. Most likely from acute gallstone, his enzymes are back to normal. 4. Knee pain rule out effusion. Was seen orthopedic surgeon, no intervention needed to be done, uric acid was ordered today was negative. 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 5. Post Covid pneumonia. Stable and doing well. 6. Obesity with body mass index 36.0 continue diet exercise. 7. DVT prophylaxis. Pneumatic compression sleeves 8. GI prophylaxis. Protonix Hospital course: Patient had acute presentation for pancreatitis with gallstone, he was supposed to go for gallbladder surgery which was delay ended up having an MRCP came back with suspicious for small stone in the neck of the gallbladder with no major finding of any obstruction in the common duct. With the change of surgical service requested by patient and his patient was seen different service surgery was delayed this point after review the MRCP finding the patient is doing well at this point in been stable patient was referred to see the gastroenterology service and found for possible ERCP this coming week and he will be finding in general surgeon on is on. . Patient was stable to be discharged home today to follow up as an outpatient and even to do his gallbladder surgery as an outpatient. If worsening symptom returned to the hospital. Plan - Discharge Summary Discharge Rx Participant: Yes New Discharge Prescriptions: No Action Fluticasone Nasal [place] [Flonase Nasal [place]] 1 spray EA NOSTRIL HS [place]-3 Fatty Acids/Fish Oil [Fish Oil 1,000 mg Softgel] 2 cap PO DAILY Pantoprazole [Protonix] 40 mg PO DAILY Ascorbic Acid [Vitamin C] 500 mg PO DAILY Cholecalciferol [Vitamin D3 (25 Mcg = 1000 Iu)] 25 mcg PO DAILY Multivitamins, Thera [Multivitamin (formulary)] 1 tab PO DAILY Discharge Medication List Cholecalciferol [Vitamin D3 (25 Mcg = 1000 Iu)] 25 mcg PO DAILY 11/14/20 [History] Multivitamins, Thera [Multivitamin (formulary)] 1 tab PO DAILY 11/14/20 [History] Ascorbic Acid [Vitamin C] 500 mg PO DAILY 05/10/21 [History] Fluticasone Nasal [place] [Flonase Nasal [place]] 1 spray EA NOSTRIL HS 05/10/21 [History] [place]-3 Fatty Acids/Fish Oil [Fish Oil 1,000 mg Softgel] 2 cap PO DAILY 05/10/21 [History] Pantoprazole [Protonix] 40 mg PO DAILY 05/10/21 [History] Follow up Appointment(s)/Referral(s): Jovanny Christina MD [Primary Care Provider] - 1-2 days Evangelina Reyes MD [STAFF PHYSICIAN] - 1 Week Sedrick Fabian MD [Medical Doctor] - 1 Week Discharge Disposition: HOME SELF-CARE
[2021-05-14 14:54] VITALS: BP 114/72; PULSE 70; RESP 16; TEMP 98.1
[2021-05-14] MEDS ORDERED: HYDROmorphone 0.5 MG/0.5 ML SYRINGE IVP PRN (16:15)
[2021-05-14] MEDS ORDERED: HYDROmorphone 1 MG/ML 1 ML SYRINGE IVP PRN (16:15)
== END 2021-05-14 16:41 | disposition home or self-care (01) | DRG 439 ==
LOC: EC 15:58 → 6NMEDSUR 21:07 → OBSVTOIN 05-13 09:22
PROVIDERS: ADMIT Family Medicine; ATTEND Family Medicine
DX: K85.10 Biliary acute pancreatitis without necrosis or infection (principal); M02.362 Reiter's disease, left knee; M02.361 Reiter's disease, right knee; K80.70 Calculus of gallbladder and bile duct without cholecystitis without obstruction; K75.9 Inflammatory liver disease, unspecified; K62.89 Other specified diseases of anus and rectum; E66.9 Obesity, unspecified; Z68.36 Body mass index [BMI] 36.0-36.9, adult; Z79.899 Other long term (current) drug therapy; Z86.16 Personal history of COVID-19; Z87.01 Personal history of pneumonia (recurrent); Z96.611 Presence of right artificial shoulder joint; Z87.19 Personal history of other diseases of the digestive system; Z87.891 Personal history of nicotine dependence
CPT/HCPCS: 36415; 74018; 74177; 74181; 76705; 80053; 81003; 82150; 83605; 83690; 84484; 84550; 85025; 85610; 85730; 93005; 96361; 96374; 96375; 99285